=== PATIENT | female | born 1950 | race Caucasian/White ===

== ENCOUNTER 2017-11-16 13:49 | Emergency (ER) | payer MEDICARE, SELFPAY ==
[2017-11-16 13:50] VITALS: BP 196/76; PULSE 67; RESP 16; TEMP 36.2; O2SAT 94; BMI 38.7
[2017-11-16 14:44] LABS: Absolute Lymphocyte Count 0.96 X10^3/ul (0.83-4.51); Absolute Neutrophil Count 3.7 X10^3/uL (2.0-7.7); Basophil# 0.02 X10^3/uL; Basophil% 0.4 % (0-1); Eosinophil# 0.15 X10^3/uL; Eosinophils% 2.9 % (0-5); Hematocrit 40.9 % (37-47); Hemoglobin 13.4 g/dl (12.0-15.0); Lymphocyte # 0.96 X10^3/ul (4.0); Lymphocyte % 18.3 % (19-41); Mean Corp Hgb Conc 32.8 g/gl (32-36); Mean Corpuscular Hgb 27.3 pg (27.0-32.0); Mean Corpuscular Volume 83.5 fL (81-99); Mean Platelet Vol. 12.5 fl (6.2-12.0); Monocyte# 0.43 X10^3/uL; Monocyte% 8.2 % (0-10); Neutrophil # 3.67 X10^3/uL (2.7-7.7); Neutrophil % 69.8 % (47-70); Platelet Count 102 K/mm3 (150-450); RBC Distribution Width CV 14.7 % (11.6-14.6); RBC Distribution Width SD 43.8 fl (35.1-43.9); White Blood Count 5.3 K/mm3 (4.4-11.0)
[2017-11-16 14:45] LABS: POSITIVE COUNT NO; POSITIVE DIFFERENTIAL NO; POSITIVE MORPHOLOGY NO
[2017-11-16 14:54] LABS: Mucous, Urine 0 SEEN /hpf (<or=2+); Red Blood Cells-Urine 0 SEEN /hpf (0-5)
[2017-11-16 14:55] LABS: Anion Gap 6 (5-15); BUN 12 mg/dL (7-18); BUN/Creat Ratio 17.7 RATIO (10-20); Calcium,Total 9.8 mg/dL (8.5-10.1); Chloride 103 mmol/L (98-107); Creatinine, Serum 0.68 mg/dL (0.55-1.02); EST Glomerular Filtration Rate 91 mL/min (>60); Est Glom Filt Rate - Afr Amer 111 mL/min (>60); Estimated Creatinine Clearance 38.14 ml/min; Glucose 177 mg/dL (70-110); Potassium 4.6 mmol/L (3.5-5.1); Sodium Level 139 mmol/L (136-145)
[2017-11-16 15:06] LABS: Color, Urine Yellow (Yellow); Glucose, Dipstick 100 mg/dl (Normal); Ketone-Dipstick Negative (Negative); Leukocyte Esterase-Dipstick 100 /ul (Negative); Nitrite-Dipstick Negative (Negative); Occult Blood-Urine 10 /ul (Negative); Protein-Dipstick 100 mg/dl (Negative); Specific Gravity, Urine 1.015 (1.002-1.030); Urine Bilirubin Dipstick Negative (Negative); Urine Clarity Clear (Clear); Urine Urobilinogen Normal (Normal)
[2017-11-16 15:13] LABS: Squamous Epithelial Cells - UA 0-5 SEEN /hpf (5-10); White Blood Cells 0-5 SEEN /hpf (0-5)
[2017-11-16 15:14] LABS: Bacteria RARE /hpf (None Seen)
--- NOTE | 2017-11-16 15:17 | ED.DCSUM_ITS ---
- ER Visit Summary Date of Service: 11/16/17 Chief Complaint: Dysuria and frequency History of Present Illness: The patient is a [address] Smith. She reports that she has dysuria and frequency that began 2 weeks ago. This is similar when she has had UTIs in the past. She reports that she has a sharp suprapubic pain is 3 out of 10 severity. She has been nauseated but has not vomited. No fever or chills. No back pain. Physical Examination: Vitals: Stable. Afebrile. General: Well-nourished and well-developed. Head: Normocephalic atraumatic. Neck: Supple, no lymphadenopathy. No JVD. Nontender. Cardiovascular: Regular rate and rhythm. No murmurs. Respiratory: No respiratory distress. Clear to auscultation bilaterally. Abdominal: Soft, mild suprapubic tenderness to palpation, nondistended, normal bowel sounds. No guarding, rebound, or peritoneal signs. Back: Nontender. Extremities: Nontender, no edema. Skin: Normal color, no rash. Neurologic: Alert and oriented ?3. Cranial nerves II through XII are intact. Normal strength and sensation. Psych: Normal affect. Test Results: CBC is more for platelets of 102 lymphocytes of 18. Chem-7 is more for glucose 177. UA is negative. Emergency Department Course and Treatment: Patient refused pain or nausea medications. She is resting comfortably. Treatment Plan: I discussed mechanical and chemical causes of urethritis with the patient. She will be discharged instructed follow-up her primary care physician 1 week if not improving. Disposition: To home in improved and stable condition. Impression:. 1. Urethritis. This note was generated with [employer] dictation software. It may contain incorrect words, spelling, and punctuation that were not noted in review of the chart prior to signing ED Disposition - Plan for ED Patient: Disposition: Home or Assisted Living Chief Complaint: Complaint Instructions: Urethritis in Women Referrals: Josiah Smith MD [Primary Care Provider] - 1 Week if not improving
[2017-11-16 15:35] VITALS: BP 129/77; PULSE 68; RESP 15; O2SAT 98
== END 2017-11-16 15:36 | disposition home or self-care (01) ==
PROVIDERS: Emergency Provider Emergency Medicine; Family Provider Family Medicine; PCP Family Medicine
DX: N34.2 Other urethritis (principal); E11.9 Type 2 diabetes mellitus without complications; I10 Essential (primary) hypertension; Z87.891 Personal history of nicotine dependence; Z87.440 Personal history of urinary (tract) infections
CPT/HCPCS: 80048; 81001; 85025; 99283

== ENCOUNTER → 2017-11-30 10:36 | Outpatient (CLI) | payer MEDICARE, SELFPAY ==
--- NOTE | 2017-11-30 | LES_PTH ---
PATIENT: MICHAEL HENLEY LOC: [facility] U#:[id number] AGE/SX: 75/F ROOM: RE11/30/[address]: Dr. Franklin Jaquez MD : 1950 BED: DIS: SPEC #: [id number] RECD: 11/30/17 14:36 STATUS: RICK FATOU #: [id number] HORACOI: 11/30/17 00:[address]: Franklin Jaquez DEPT: SURGICAL PATHOLOGY RECD BY: Darci Becerril ENTERED: 11/30/17 14:36 SP TYPE: Lesion OTHR DR: Dr. Josiah Smith MD Tissues: Skin of forearm, NOS Procedures: Surgery Specimen Level IV HEADER OPERATION: Excision skin lesion left forearm PRE-OP DIAGNOSIS: Left forearm lesion TISSUE SUBMITTED: Tissue left forearm MICROSCOPIC DIAGNOSIS Skin lesion of left forearm, biopsy: Verrucous keratosis. Solar elastosis. AM:cori 2/13/18 COMMENT The lesion appears to have been completely excised in the planes examined. MICROSCOPIC DESCRIPTION Slides are reviewed. GROSS DESCRIPTION Received in fixative is one container labeled with the patient's name and designated left forearm. The specimen consists of an ellipse of light gallegos excised skin measuring 1.6 x 0.5 x 0.3 cm. The cutaneous surface contains an exophytic gallegos lesion measuring 0.6 cm in greatest dimension. The specimen is inked, serially sectioned and totally submitted in one cassette. / AM:cori 11/30/17 TC:5 CPT: 80292
== END ==
PROVIDERS: Family Provider Family Medicine; PCP Family Medicine; Visit Provider Surgery
DX: L57.0 Actinic keratosis (principal); L57.8 Other skin changes due to chronic exposure to nonionizing radiation; W89.9XXA Exposure to unspecified man-made visible and ultraviolet light, initial encounter; Y93.9 Activity, unspecified; Y92.9 Unspecified place or not applicable; Y99.9 Unspecified external cause status
CPT/HCPCS: 88305

== ENCOUNTER 2018-05-01 21:47 | Emergency (ER) | payer MEDICARE, SELFPAY ==
[2018-05-01 21:49] VITALS: BP 215/86; PULSE 106; RESP 23; TEMP 37.2; O2SAT 94; BMI 36.2
--- NOTE | 2018-05-01 22:12 | ED.VISSUMM ---
- ER Visit Summary Date of Service: 05/01/18 Chief Complaint: Acute on chronic hypertension History of Present Illness: The patient is a 68 F history of hypertension and cxp-gxofmzg-emfsrodoe diabetes. Patient states that they had trouble controlling her blood pressure. She typically takes clonidine 6 times a day sometimes more. States the last 2 days her blood pressures been elevated. Her systolic numbers been above 200 and her diastolics been above 100. However she denies any severe headaches, chest pain or shortness of breath. She denies any nausea, vomiting or diarrhea. No dysuria. No fever. Physical Examination: Vital signs show initial blood pressure of 215/86. Otherwise stable and afebrile. She does not look septic or toxic. She is no acute distress. HEENT exam unremarkable. Pupils intact. No facial droop. Normal speech. Patient bilaterally. Heart regular rhythm no murmur. Rate 105. Abdomen soft and nontender. Normal bowel sounds. Lungs clear to auscultation bilaterally. Patient is moving all 4 extremities. They are neurovascularly intact. Calves without edema or cords. Neurologically she is awake alert with no focal motor or sensory deficits. Normal propeller driven airplane mechanic strength bilaterally. Normal dorsi plantar flexion. Test Results: BMP is unremarkable. She is completely normal kidney function with a creatinine of 0.6. Emergency Department Course and Treatment: Patient treated with labetalol 10 mg IV Treatment Plan: Repeat exam patient is doing well at 2250. Currently her blood pressure is 190/65. She is without symptoms. I discussed with the patient and her he states that she takes her blood pressure repeatedly multiple times a day. When it is high she gets more anxious and he goes higher. I explained to patient she will need to be placed on blood pressure medication and controls her pressure better and will be to be slowly weaned off of her clonidine. That she could not come off of that immediately. Patient will be started on metoprolol. She is instructed to follow-up with her animal damage control agent Dr. Baron and for further evaluation and working on blood pressure control. Disposition: Discharge Impression: Acute on chronic hypertension poorly controlled This note was generated with [employer] software. It may contain incorrect words, spelling, and punctuation that were not noted in review of the chart prior to signing ED Disposition - Plan for ED Patient: Chief Complaint: Hypertension Referrals: Josiah Smith MD [Primary Care Provider] -
--- NOTE | 2018-05-01 22:15 | ED.DCSUM_ITS ---
- ER Visit Summary Date of Service: 05/01/18 Chief Complaint: Acute on chronic hypertension History of Present Illness: The patient is a 68 F history of hypertension and lzm-dopuvuh-oqeuocneq diabetes. Patient states that they had trouble controlling her blood pressure. She typically takes clonidine 6 times a day sometimes more. States the last 2 days her blood pressures been elevated. Her systolic numbers been above 200 and her diastolics been above 100. However she denies any severe headaches, chest pain or shortness of breath. She denies any nausea, vomiting or diarrhea. No dysuria. No fever. Physical Examination: Vital signs show initial blood pressure of 215/86. Otherwise stable and afebrile. She does not look septic or toxic. She is no acute distress. HEENT exam unremarkable. Pupils intact. No facial droop. Normal speech. Patient bilaterally. Heart regular rhythm no murmur. Rate 105. Abdomen soft and nontender. Normal bowel sounds. Lungs clear to auscultation bilaterally. Patient is moving all 4 extremities. They are neurovascularly intact. Calves without edema or cords. Neurologically she is awake alert with no focal motor or sensory deficits. Normal steel division supervisor strength bilaterally. Normal dorsi plantar flexion. Test Results: BMP is unremarkable. She is completely normal kidney function with a creatinine of 0.6. Emergency Department Course and Treatment: Patient treated with labetalol 10 mg IV Treatment Plan: Repeat exam patient is doing well at 2250. Currently her blood pressure is 190/65. She is without symptoms. I discussed with the patient and her he states that she takes her blood pressure repeatedly multiple times a day. When it is high she gets more anxious and he goes higher. I explained to patient she will need to be placed on blood pressure medication and controls her pressure better and will be to be slowly weaned off of her clonidine. That she could not come off of that immediately. Patient will be started on metoprolol. She is instructed to follow-up with her digital forensics examiner Dr. Baron and for further evaluation and working on blood pressure control. Disposition: Discharge Impression: Acute on chronic hypertension poorly controlled This note was generated with [employer] software. It may contain incorrect words, spelling, and punctuation that were not noted in review of the chart prior to signing ED Disposition - Plan for ED Patient: Chief Complaint: Hypertension Referrals: Josiah Smith MD [Primary Care Provider] -
[2018-05-01 22:30] VITALS: BP 186/68; PULSE 88; RESP 20; O2SAT 94
[2018-05-01 22:32] LABS: Anion Gap 9 (5-15); BUN 11 mg/dL (7-18); BUN/Creat Ratio 16.4 RATIO (10-20); Calcium,Total 9.8 mg/dL (8.5-10.1); Chloride 105 mmol/L (98-107); Creatinine, Serum 0.67 mg/dL (0.55-1.02); EST Glomerular Filtration Rate 92 mL/min (>60); Est Glom Filt Rate - Afr Amer 112 mL/min (>60); Glucose 159 mg/dL (74-106); Potassium 4.3 mmol/L (3.5-5.1); Sodium Level 142 mmol/L (136-145)
[2018-05-01 22:47] VITALS: BP 190/65; PULSE 97; RESP 18; O2SAT 92
--- NOTE | 2018-05-01 22:54 | ED.DEP ---
ED Disposition - Plan for ED Patient: Disposition: Home or Assisted Living Chief Complaint: Hypertension Instructions: ED Hypertension Conf Out Of Control Prescriptions: Metoprolol Succinate 50 mg PO DAILY #30 tab.er.24h Referrals: Josiah Smith MD [Primary Care Provider] - As Needed Tod Melgar [NON-STAFF] - As soon as possible Additional Instructions: Call and follow-up with Dr. Tod Healy for further evaluation of your blood pressure and to determine what blood pressure medication he should be on. You cannot just stop the clonidine. You will need to be weaned off of that medication weeks or months. Start the metoprolol which is a beta-paris medication 1 pill once daily and they will have to assess to see how that is controlling her blood pressure. They may need to try different dosages or even different medications.
[2018-05-01 23:06] VITALS: BP 188/55; PULSE 73; RESP 17; O2SAT 95
== END 2018-05-01 23:26 | disposition home or self-care (01) ==
PROVIDERS: Emergency Provider Emergency Medicine; Family Provider Family Medicine; PCP Family Medicine
DX: I10 Essential (primary) hypertension (principal); E11.9 Type 2 diabetes mellitus without complications; J44.9 Chronic obstructive pulmonary disease, unspecified
CPT/HCPCS: 36415; 80048; 96374; 99285; A4216

== ENCOUNTER 2018-05-02 04:59 | Emergency (ER) | payer MEDICARE, SELFPAY ==
[2018-05-02 05:00] VITALS: BP 239/70; PULSE 84; RESP 19; TEMP 37.3; O2SAT 96; BMI 35.6
--- NOTE | 2018-05-02 05:20 | EKG12_ITS ---
Test Reason : HIGH BP Blood Pressure : / mmHG Vent. Rate : 082 BPM Atrial Rate : 082 BPM P-R Int : 142 ms QRS Dur : 142 ms QT Int : 414 ms P-R-T Axes : 049 -75 059 degrees QTc Int : 483 ms Normal sinus rhythm Right bundle branch block Left anterior fascicular block Bifascicular block Left ventricular hypertrophy with repolarization abnormality Abnormal ECG Confirmed by TEJ ROWELL, PHONG ([id number]), editor index SAHARA ALTMAN ([id number]) on 05/04/2018 1:38:16 PM Referred By: POLLY Confirmed By:PHONG BURNHAM MD
--- NOTE | 2018-05-02 05:20 | CT_ITS ---
STUDY: CT BRAIN WITHOUT CONTRAST REASON FOR EXAM: Female, 68 years old. Headache. RADIATION DOSAGE (If Supplied By Facility): CTDIvol = ( 44.99 ) mGy, DLP = ( 762.36 ) mGycm TECHNIQUE: Transaxial CT imaging of the brain was performed without administration of intravenous contrast material. Individualized dose optimization techniques were used for this CT. COMPARISON: September 10, 2013. FINDINGS: Normal soft tissue structures. Normal calvarium. Normal size ventricles and extra-axial spaces for the patient's age. Normal white matter tracts of the cerebral hemispheres. Normal basal ganglia and thalami. Normal brainstem. Normal cerebellum. There is no intracranial hemorrhage. There are no findings of an acute ischemic infarction. Normal visualized paranasal sinuses. CT/Brain/Head without Contrast IMPRESSION: Normal unenhanced CT scan of the brain. Electronically Signed: Walker Rivera MD at 6:35 EDT , Service support ,
[2018-05-02] MEDS: Ondansetron 4 MG/2 ML Vial IV (05:45)
[2018-05-02] MEDS: diazePAM 5 MG Tablet 2.5 MG PO (05:47)
--- NOTE | 2018-05-02 05:47 | NURSING ---
PER DR. MATIAS, PT IS TO TAKE 2PILLS OF HER CLONIDINE, TOTAL AMOUNT 0.2MG. PT TOOK THEM.
[2018-05-02 06:00] LABS: Hematocrit 39.4 % (37-47); Hemoglobin 12.8 g/dl (12.0-15.0); Mean Corp Hgb Conc 32.5 g/gl (32-36); Mean Corpuscular Hgb 27.2 pg (27.0-32.0); Mean Corpuscular Volume 83.7 fL (81-99); RBC Distribution Width CV 19.2 % (11.6-14.6); Red Blood Count 4.71 M/mm3 (4.2-5.4); White Blood Count 4.6 K/mm3 (4.4-11.0)
[2018-05-02 06:01] LABS: Absolute Lymphocyte Count 0.65 X10^3/ul (0.83-4.51); Absolute Neutrophil Count 3.4 X10^3/uL (2.0-7.7); Basophil# 0.02 X10^3/uL; Basophil% 0.4 % (0-1); Eosinophil# 0.14 X10^3/uL; Eosinophils% 3.1 % (0-5); Lymphocyte # 0.65 X10^3/ul (4.0); Lymphocyte % 14.3 % (19-41); Mean Platelet Vol. 11.4 fl (6.2-12.0); Monocyte# 0.31 X10^3/uL; Monocyte% 6.8 % (0-10); Neutrophil # 3.44 X10^3/uL (2.7-7.7); Neutrophil % 75.4 % (47-70); Platelet Count 74 K/mm3 (150-450)
[2018-05-02 06:02] LABS: POSITIVE COUNT NO; POSITIVE DIFFERENTIAL NO; POSITIVE MORPHOLOGY NO
[2018-05-02 06:31] VITALS: BP 161/52; PULSE 68; RESP 18; O2SAT 94
--- NOTE | 2018-05-02 06:48 | ED.VISSUMM ---
- ER Visit Summary Date of Service: 05/02/18 Chief Complaint: High blood pressure, headache, and nausea History of Present Illness: The patient is a [address] Smith. She was seen yesterday for high blood pressure. She reports that since being discharged she is developed a headache. She reports it was 7 out of 10 at worst and is 2 out of 10 currently. Is been relieved by Tylenol. She also reports that she is nauseated. She denies any abdominal pain or vomiting. Patient believes that the nausea is due to a dose of labetalol she was given in the emergency department. Patient has a bottle of clonidine with her that the prescription is 0.3 mg p.o. twice daily. She reports to me that she usually takes 2 in the morning, 1 at 1 PM, 2 at 5 PM, and 1 at 8 PM as needed. She reports that she did not take her evening dose because she was nauseated then. Review of systems: General: No fever, chills, cold sweats. Cardiovascular: No chest pain, palpitations. Respiratory: No cough, shortness of breath, dyspnea on exertion. Gastrointestinal: No abdominal pain, vomiting, diarrhea, melena, or hematochezia. Genitourinary: No dysuria, frequency, hematuria. Skin: No rash. Neuro: Nonumbness, weakness. Physical Examination: Vitals: Initial blood pressure is 239/70. Repeat blood pressure is 161/52 after her dose of clonidine and 2.5 mg of Valium. Temp is 99.1, 84, 19, 96% on room air which is not hypoxic General: Well-nourished and well-developed. Head: Normocephalic atraumatic. Neck: Supple, no lymphadenopathy. No JVD. Nontender. Cardiovascular: Regular rate and rhythm. No murmurs. Respiratory: No respiratory distress. Clear to auscultation bilaterally. Abdominal: Soft, nontender, nondistended, normal bowel sounds. No guarding, rebound, or peritoneal signs. Back: Nontender. Extremities: Nontender, no edema. Skin: Normal color, no rash. Neurologic: Alert and oriented ?3. Cranial nerves II through XII are intact. Normal strength and sensation. Psych: Normal affect. Test Results: Patient had a Chem-7 yesterday that was not repeated. The only abnormality was a glucose of 159. EKG is sinus at 82 with a right bundle branch block and LVH with repolarization changes no ischemic changes. CT brain shows no acute disease. CBC is more for platelets 74, segmented neutrophils 75, lymphocytes 14. Emergency Department Course and Treatment: Patient is quite insistent that she take her home clonidine. She refuses to take 0.3 mg. She took 0.2 mg. She does admit to being anxious. She was given 2.5 mg of Valium p.o. Her blood pressure decreased nicely with this regimen. Treatment Plan: Patient will be discharged and encouraged to take her clonidine as prescribed. I have also suggested that when she measures her blood pressure she becomes anxious and her blood pressure worsens. She does agree that this is accurate. She will be discharged instructions to follow-up with Dr. Smith the next 3-5 days for another exam. Return to the emergency department for any worsening symptoms. Disposition: To home in improved and stable condition. Impression: 1. Hypertension with medication noncompliance. 2. Anxiety. This note was generated with [employer] dictation software. It may contain incorrect words, spelling, and punctuation that were not noted in review of the chart prior to signing ED Disposition - Plan for ED Patient: Disposition: Home or Assisted Living Chief Complaint: Hypertension Instructions: ED Hypertension Conf Out Of Control Prescriptions: Ondansetron [Zofran Odt] 4 mg PO Q8H PRN PRN #10 tablet PRN Reason: Nausea Referrals: Josiah Smith MD [Primary Care Provider] - 1-2 Days if not improving
[2018-05-02] MEDS: Ondansetron ODT 4 MG Tablet PO (07:02)
[2018-05-02 07:13] VITALS: BP 159/72; PULSE 70; PULSE 72; RESP 18; O2SAT 93
== END 2018-05-02 07:12 | disposition home or self-care (01) ==
PROVIDERS: Emergency Provider Emergency Medicine; Family Provider Family Medicine; PCP Family Medicine
DX: I10 Essential (primary) hypertension (principal); Z91.14 Patient's other noncompliance with medication regimen; F41.9 Anxiety disorder, unspecified; I45.10 Unspecified right bundle-branch block; E11.9 Type 2 diabetes mellitus without complications; J44.9 Chronic obstructive pulmonary disease, unspecified
CPT/HCPCS: 70450; 85025; 93005; 96374; 99285; A4216

== ENCOUNTER 2018-08-15 15:14 | Emergency (ER) | payer MEDICARE, SELFPAY ==
[2018-08-15 15:15] VITALS: BP 242/86; PULSE 100; RESP 22; TEMP 37.2; O2SAT 94; BMI 35.3
--- NOTE | 2018-08-15 15:43 | EKG12_ITS ---
Test Reason : HYPERTENSION Blood Pressure : / mmHG Vent. Rate : 099 BPM Atrial Rate : 099 BPM P-R Int : 152 ms QRS Dur : 130 ms QT Int : 378 ms P-R-T Axes : 042 -74 061 degrees QTc Int : 485 ms Normal sinus rhythm Right bundle branch block Left anterior fascicular block Bifascicular block Voltage criteria for left ventricular hypertrophy Cannot rule out Septal infarct , age undetermined Abnormal ECG Confirmed by FELICIANO ROWELL, DANITA ([id number]), assignment editor SAHARA ALTMAN ([id number]) on 08/17/2018 10:28:08 AM Referred By: YUE Confirmed By:DANITA WIGGINS MD
[2018-08-15 16:03] LABS: Absolute Lymphocyte Count 0.66 X10^3/ul (0.83-4.51); Absolute Neutrophil Count 3.2 X10^3/uL (2.0-7.7); Basophil# 0.04 X10^3/uL; Basophil% 0.9 % (0-1); Eosinophil# 0.16 X10^3/uL; Eosinophils% 3.7 % (0-5); Hematocrit 37.4 % (37-47); Hemoglobin 11.4 g/dl (12.0-15.0); Lymphocyte # 0.66 X10^3/ul (4.0); Lymphocyte % 15.3 % (19-41); Mean Corp Hgb Conc 30.5 g/gl (32-36); Mean Corpuscular Hgb 25.4 pg (27.0-32.0); Mean Corpuscular Volume 83.5 fL (81-99); Mean Platelet Vol. 11.8 fl (6.2-12.0); Monocyte# 0.22 X10^3/uL; Monocyte% 5.1 % (0-10); Neutrophil # 3.23 X10^3/uL (2.7-7.7); Platelet Count 98 K/mm3 (150-450); RBC Distribution Width CV 14.8 % (11.6-14.6); RBC Distribution Width SD 45.1 fl (35.1-43.9); Red Blood Count 4.48 M/mm3 (4.2-5.4); White Blood Count 4.3 K/mm3 (4.4-11.0)
[2018-08-15] MEDS: Clonidine HCl 0.1 MG, Clonidine HCl 0.2 MG 0.3 MG PO (16:03)
[2018-08-15] MEDS: Ondansetron 4 MG/2 ML Vial IV (16:03)
[2018-08-15] MEDS: 0.9% Normal Saline 1,000 ML 1000 ML IV (16:03)
[2018-08-15 16:06] LABS: POSITIVE COUNT NO; POSITIVE DIFFERENTIAL NO; POSITIVE MORPHOLOGY NO
[2018-08-15 16:10] VITALS: BP 229/61; PULSE 85; RESP 18; O2SAT 91
[2018-08-15 16:14] LABS: Anion Gap 7 (5-15); BUN 13 mg/dL (7-18); BUN/Creat Ratio 17.4 RATIO (10-20); Calcium,Total 9.4 mg/dL (8.5-10.1); Chloride 106 mmol/L (98-107); Creatinine, Serum 0.75 mg/dL (0.55-1.02); EST Glomerular Filtration Rate 81 mL/min (>60); Est Glom Filt Rate - Afr Amer 98 mL/min (>60); Glucose 212 mg/dL (74-106); Potassium 4.2 mmol/L (3.5-5.1); Sodium Level 140 mmol/L (136-145)
[2018-08-15 16:35] VITALS: BP 194/59; PULSE 72
--- NOTE | 2018-08-15 16:52 | ED.DCSUM_ITS ---
- ER Visit Summary Date of Service: 08/15/18 Chief Complaint: Hypertension History of Present Illness: The patient is a 68 F presenting for evaluation secondary to high blood pressure. Patient has a history of poorly controlled hypertension, reports that she has multiple allergies to antihypertensive medic ations and only is able to take clonidine. She takes point 2 in the morning, 0.1 at lunch, and point 2 at night. Patient states that since yesterday she has been having high blood pressure readings. She reports that associated with mild dizziness and nausea but she denies any visual changes numbness weakness chest pain or shortness of breath associated with this. No recent changes in her medication regimen. She denies any missed doses. Physical Examination: Vital signs notable for blood pressure 242/86. Well- nourished female no acute distress. PRL. Moist mucous membranes no JVD. Heart was regular rate and rhythm no murmurs rubs or gallops. Lungs sounds clear. Abdomen soft nontender. No significant peripheral edema noted. Skin normal color no rash. Test Results: EKG shows a sinus rate of 99 with a right bundle branch block, bifascicular block, and some minimal ST depression in aVL that is chronic. CBC demonstrates chronic thrombocytopenia platelet count 98, chemistry normal and troponin negative. Emergency Department Course and Treatment: Patient presented for evaluation secondary to hypertension. She was given 0.3 of Catapres as she has multiple medication allergies. Blood pressure on repeat evaluation was 190/55. She has no evidence of endorgan damage. I do not believe that she requires admission at this point. She is recommended to discuss her medication regimen with her primary care physician, and potentially change her Catapres to a patch or add labetalol. She will follow-up this week. Disposition: Discharge Impression: 1. Poorly controlled hypertension 2. Chronic thrombocytopenia This note was generated with [employer] dictation software. It may contain incorrect words, spelling, and punctuation that were not noted in review of the chart prior to signing ED Disposition - Plan for ED Patient: Disposition: Home or Assisted Living Chief Complaint: Hypertension Diagnosis: Hypertension Instructions: ED HTN Established Referrals: Josiah Smith MD [Primary Care Provider] - As soon as possible Additional Instructions: Ask Dr. Gonzalez about a clonidine patch or Labetalol.
[2018-08-15 17:07] VITALS: BP 164/53; PULSE 66; RESP 20; O2SAT 92
== END 2018-08-15 17:10 | disposition home or self-care (01) ==
PROVIDERS: Emergency Provider Emergency Medicine; Family Provider Family Medicine; PCP Family Medicine
DX: I10 Essential (primary) hypertension (principal); D69.6 Thrombocytopenia, unspecified; I45.10 Unspecified right bundle-branch block; I45.2 Bifascicular block; K21.9 Gastro-esophageal reflux disease without esophagitis; F41.9 Anxiety disorder, unspecified; Z88.9 Allergy status to unspecified drugs, medicaments and biological substances; Z79.84 Long term (current) use of oral hypoglycemic drugs; Z79.899 Other long term (current) drug therapy
CPT/HCPCS: 80048; 84484; 85025; 93005; 96361; 96374; 99285; A4216; J2405

== ENCOUNTER → 2018-12-08 14:38 | Outpatient (CLI) | payer MEDICARE, SELFPAY ==
--- NOTE | 2018-12-08 | LES_PTH ---
PATIENT: MICHAEL HENLEY LOC: [facility] U#:[id number] AGE/SX: 75/F ROOM: RE12/08/[address]: Dr. Franklin Jaquez MD : 1950 BED: DIS: SPEC #: [id number] RECD: 12/08/18 14:29 STATUS: RICK CHRISTINERenetta #: [id number] HORACIO: 12/08/18 00:[address]: Franklin Jaquez DEPT: SURGICAL PATHOLOGY RECD BY: Darci Becerril ENTERED: 12/09/18 08:14 SP TYPE: Lesion OTHR DR: Dr. Josiah Smith MD Tissues: Skin of forearm, NOS Procedures: Surgery Specimen Level IV HEADER OPERATION: Excision left forearm lesion PRE-OP DIAGNOSIS: Left arm lesion TISSUE SUBMITTED: Left arm tissue MICROSCOPIC DIAGNOSIS Skin lesion of left arm, biopsy: Actinic change and solar elastosis. No evidence of malignancy. AM:cori 2/22/19 MICROSCOPIC DESCRIPTION Slides are reviewed. GROSS DESCRIPTION Received in fixative is one container labeled with the patient's name and designated left forearm. The specimen consists of a piece of gallegos-white skin ellipse measuring 2.5 x 1 cm and 0.2 cm in thickness. There is a raised gallegos lesion on the surface measuring 0.5 x 0.5 cm. The specimen is inked, serially sectioned and submitted entirely in two cassettes. Cassette 1 contains the tips of skin ellipse. / SJ:rg 12/09/18 TC:5 CPT: 97851
[2018-12-08 14:29] VITALS: BMI 38.7
== END ==
PROVIDERS: Family Provider Family Medicine; PCP Family Medicine; Referring Provider Surgery; Visit Provider Surgery
DX: L57.8 Other skin changes due to chronic exposure to nonionizing radiation (principal); W89.9XXA Exposure to unspecified man-made visible and ultraviolet light, initial encounter; Y92.9 Unspecified place or not applicable; Y99.9 Unspecified external cause status
CPT/HCPCS: 88305

== ENCOUNTER 2019-01-06 09:05 | Inpatient (IN) | payer MEDICARE, SELFPAY ==
[2018-12-29 13:38] VITALS: BMI 38.7
[2019-01-06] VITALS (13 sets, daily range): BP systolic 127–240; BP diastolic 56–102; PULSE 80–124; RESP 15–20; TEMP 36.2–37.5; O2SAT 94–99; BMI 37.0; BMI 34.5; BMI 34.6
--- NOTE | 2019-01-06 09:20 | EKG12_ITS ---
Test Reason : Blood Pressure : / mmHG Vent. Rate : 091 BPM Atrial Rate : 091 BPM P-R Int : 150 ms QRS Dur : 136 ms QT Int : 404 ms P-R-T Axes : 012 -79 048 degrees QTc Int : 496 ms Normal sinus rhythm Right bundle branch block Left anterior fascicular block Bifascicular block Moderate voltage criteria for LVH, may be normal variant Cannot rule out Septal infarct , age undetermined Abnormal ECG Confirmed by TEJ ROWELL, PHONG ([id number]), telegraph editor EDDIE JEAN ([id number]) on 01/10/2019 11:39:46 AM Referred By: TORI Confirmed By:PHONG BURNHAM MD
--- NOTE | 2019-01-06 09:21 | ED.VIS.GEN ---
History of Present Illness Chief Complaint: Back Informant: Patient Onset: Today Context: Sudden Onset Timing: Continuous Quality: Moderate to severe bilateral posterior back pain Location: Thoracic region Current Severity: Moderate Maximum Severity: Severe Worsened by: Movement Relieved by: Nothing Associated Symptoms: Nausea Narrative: Patient is an elderly woman who presents because of abrupt onset of back pain that awoke her from sleep at 0500. She states is bilateral. She reports history of thoracic aneurysm. She is scheduled for EGD and colonoscopy at the [facility] because of blood noted in her stool. She denies dysuria, frequency, urgency or hematuria. She denies history of renal ureterolithiasis. She does report mild shortness of breath. She reports she cannot find a position of comfort. She is not able to qualitate the pain. She denies chest pain. She denies vomiting or diarrhea. She denies black or maroon stool. She denies history of trauma. Prior similar symptoms: No Recent Illness/Hospitalization: No - Past Medical History (1) History of thoracoabdominal aortic aneurysm (TAAA) Status: Chronic (2) Anemia Status: Acute (3) Asthma Status: Chronic (4) COPD (chronic obstructive pulmonary disease) Status: Chronic (5) Diabetes mellitus Status: Chronic (6) GERD (gastroesophageal reflux disease) Status: Chronic (7) Hypertension Status: Chronic Past Medical History - Allergies and Home Meds Allergies/Adverse Reactions: Allergies suture Allergy (Mild, Verified 01/06/19 09:08) rash/ wound dehisence chromic suture amoxicillin Allergy (Verified 01/06/19 09:08) Unknown azithromycin Allergy (Verified 01/06/19 09:08) Shortness of breath celecoxib [From Celebrex] Allergy (Verified 01/06/19 09:08) Other ciprofloxacin [From Cipro] Allergy (Verified 01/06/19 09:08) Shortness of breath ciprofloxacin HCl [From Cipro] Allergy (Verified 01/06/19 09:08) Shortness of breath cortisone Allergy (Verified 01/06/19 09:08) Swelling diazepam [From Valium] Allergy (Verified 01/06/19 09:08) Shortness of breath doxycycline Allergy (Verified 01/06/19 09:08) Shortness of breath erythromycin base Allergy (Verified 01/06/19 09:08) Unknown fexofenadine [From Ashlee] Allergy (Verified 01/06/19 09:08) Unknown ibuprofen Allergy (Verified 01/06/19 09:08) Shortness of breath Iodinated Contrast- Oral and IV Dye [DYEE] Allergy (Verified 01/06/19 09:08) Shortness of breath iodine Allergy (Verified 01/06/19 09:08) Shortness of breath levofloxacin [From Levaquin] Allergy (Verified 01/06/19 09:08) Shortness of breath lorazepam [From Ativan] Allergy (Verified 01/06/19 09:08) Shortness of breath nitrofurantoin [From Macrobid] Allergy (Verified 01/06/19 09:08) Shortness of breath nitrofurantoin macrocrystalline [From Macrobid] Allergy (Verified 01/06/19 09:08) Shortness of breath Penicillins Allergy (Verified 01/06/19 09:08) Shortness of breath rofecoxib [From Vioxx] Allergy (Verified 01/06/19 09:08) Unknown Sulfa (Sulfonamide Antibiotics) Allergy (Verified 01/06/19 09:08) Shortness of breath sulfamethoxazole [From Bactrim] Allergy (Verified 01/06/19 09:08) Shortness of breath trimethoprim [From Bactrim] Allergy (Verified 01/06/19 09:08) Shortness of breath amlodipine [From Norvasc] Adverse Reaction (Verified 01/06/19 09:08) Upset Stomach cat gut sutures Allergy (Uncoded 01/06/19 09:08) Unknown MISC BP MED Allergy (Uncoded 01/06/19 09:08) Shortness of breath Primary Care Physician: Josiah Smith MD [Primary Care Provider] - Prior records reviewed: Yes Surgical History: cholecystectomy, - Lives: Spouse/ Significant Other Smoking Status: Never smoker Alcohol: None - Family History Maternal Family History: Family History (Last Reviewed 12/29/18 @ 13:38 by Debora Ruff) Mother Heart disease Brother Heart disease Family History: Reports: No pertinent history Paternal Family History: Family History (Last Reviewed 12/29/18 @ 13:38 by Debora Ruff) Mother Heart disease Brother Heart disease Family History: Reports: No pertinent history Review of Systems General: Denies: Chills, Fever, Malaise, Sweats Eyes: Denies: Visual changes - bilaterally, Blurred Vision - bilaterally, Diplopia ENT: Denies: Bilateral ear pain, Rhinorrhea, Sore throat Cardiovascular: Denies: Chest pain, Palpitations Respiratory: Reports: Dyspnea. Denies: Cough, Sputum, Dyspnea on exertion, Orthopnea, Paroxysmal nocturnal dyspnea Gastrointestinal: Reports: Abdominal pain - Epigastric discomfort, Nausea. Denies: Vomiting, Diarrhea, Melena, Hematochezia Genitourinary: Denies: Dysuria, Hematuria, Frequency Musculoskeletal: Reports: Back pain. Denies: Myalgias, Arthralgias Skin: Denies: Rash, Wounds Neurological: Denies: Headache, Weakness, Numbness Endocrine: Denies: Polyuria, Polydipsia Hematologic: Denies: Easy bruising Allergy: Denies: Uticaria Physical Exam Vital Signs/Narrative: Vital Signs Temp Pulse Resp BP Pulse Ox 01/06/19 09:06 98.4 F 84 20 H 127/80 H 95 General: Well nourished, Well developed, Obese, Acute Distress Head: Normocephalic, Atraumatic Eyes: Perrl, EOMI ENT: Moist mucous membranes, No rhinorrhea, TM's clear Neck: Supple, Nontender, No lymphadenopathy, No JVD Cardiovascular: Regular rate, Regular rhythm, No murmurs, Normal S1, Normal S2 Respiratory: No distress, CTA bilaterally, Chest nontender Abdomen: Soft, Nondistended, Normal bowel sounds, No masses, Tender, Guarding, Hypoactive bowel sounds. Negative for: Rebound tenderness, Hyperactive bowel sounds, Hepatomegaly, Splenomegaly, Mass, Pulsatile mass - No abdominal bruit was noted either Back: Normal Inspection, -. Negative for: CVA tenderness Extremities: Nontender, No edema, Edema Skin: No rash, Pallor, - - Capillary refill is delayed and concern for mottling. Negative for: Cyanosis Neurological: Alert, Oriented x3, Cranial nerves II-XII grossly intact, Normal Strength, Normal Sensation, Normal Gait Psychological: Normal affect, Normal Mood Diagnostic/Tx/Re-eval Chest X-Ray - ED: 1 View, Read by ED Physician, Normal, Heart, Lungs, Mediastinum, Bony Structures, No Acute Disease Impressions Abdomen/Pelvis CT 01/06/19 10:01 IMPRESSION: Liquefactive stool/diarrhea predominating at the right colon with inflammatory changes and small surrounding lymph nodes (statistically inflammatory/infectious colitis with concurrent enteritis) Hepatosplenomegaly with slightly nodular hepatic contour and varices (suspected cirrhosis) 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) Extensive atherosclerotic calcifications with 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 (consider follow-up nonemergent contrast enhanced scan) Small fluid and fat-containing umbilical hernia Electronically Signed: Ildefonso Juarez DO at 10:59 EDT Tel , Service support , ADDENDUM: 01/06/19 1107 IMPRESSION: Liquefactive stool/diarrhea predominating at the right colon with inflammatory changes and small surrounding lymph nodes (statistically inflammatory/infectious colitis with concurrent enteritis) Hepatosplenomegaly with slightly nodular hepatic contour and varices (suspected cirrhosis) 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 : The above information has been verbally conveyed by Ildefonso Juarez DO to [id number], on 01/06/2019 11:00:48 (ET). Electronically Signed: Ildefonso Juarez DO at 10:59 EDT Tel , Service support , 01/06/19 10:01 Abdomen/Pelvis without Cont [CT] Stat 01/06/19 10:59 Chest 1 View (Portable) [RAD] Stat Laboratory Results 01/06/19 01/06/19 01/06/19 09:35 10:12 10:12 WBC 9.5 RBC 4.99 Hgb 11.7 L Hct 39.2 MCV 78.6 L MCH 23.4 L MCHC 29.8 L RDW 21.5 H RDW Differential 60.8 H Plt Count 100 L MPV 11.0 Immature Gran % (Auto) 0.100 Neut % (Auto) 88.2 H Lymph % (Auto) 5.9 L [place] % (Auto) 4.6 Eos % (Auto) 0.9 Baso % (Auto) 0.3 Absolute Neuts (auto) 8.4 H Absolute Lymphs (auto) 0.56 L Total Counted Not Reportable Differential Comment COMMENT PT 15.1 H INR 1.2 APTT 31.0 Sodium Potassium Chloride Carbon Dioxide Anion Gap BUN Creatinine Estim Creat Clear Calc Est GFR (MDRD) Af Amer Est GFR (MDRD) Non-Af BUN/Creatinine Ratio Glucose Calcium Troponin I Urine Color Yellow Urine Clarity Sl. Cloudy Urine pH 5.0 Ur Specific [place] 1.025 Urine Protein 500 H Urine Glucose (UA) Normal Urine Ketones 5 H Urine Occult Blood 10 H Urine Nitrite Negative Urine Bilirubin 1 H Urine Urobilinogen 1 H Ur Leukocyte Esterase 100 H Urine RBC 0-5 SEEN Urine WBC 10-25 SEEN Ur Squamous Epith Cells 0-5 SEEN Urine Bacteria 1+ Urine Mucus 2+ 01/06/19 10:12 WBC RBC Hgb Hct MCV MCH MCHC RDW RDW Differential Plt Count MPV Immature Gran % (Auto) Neut % (Auto) Lymph % (Auto) [place] % (Auto) Eos % (Auto) Baso % (Auto) Absolute Neuts (auto) Absolute Lymphs (auto) Total Counted Differential Comment PT INR APTT Sodium 139 Potassium 3.8 Chloride 105 Carbon Dioxide 29.0 Anion Gap 5 BUN 11 Creatinine 0.75 Estim Creat Clear Calc 37.60 Est GFR (MDRD) Af Amer 98 Est GFR (MDRD) Non-Af 81 BUN/Creatinine Ratio 14.6 Glucose 214 H Calcium 9.3 Troponin I < 0.015 Urine Color Urine Clarity Urine pH Ur Specific [place] Urine Protein Urine Glucose (UA) Urine Ketones Urine Occult Blood Urine Nitrite Urine Bilirubin Urine Urobilinogen Ur Leukocyte Esterase Urine RBC Urine WBC Ur Squamous Epith Cells Urine Bacteria Urine Mucus ABG reveals a mild respiratory acidosis. PH 7.33, PCO2 49.8, PaO2 83, base excess +1, bicarb 26.5 with an O2 saturation 95% on 2 L by nasal cannula. - Rhythm Strip Rhythm Strip: Sinus Rhythm Rate: 89 Ectopy: None - EKG Initial EKG Interpretation: Sinus Rhythm, RBBB, LAFB - Ventricular rate is 91. The EKG is unchanged from August 15, 2018. DC interval is normal. QRS duration is prolonged at 136 ms. QT interval is upper end of normal. Prior: Unchanged - Medical Decision Making With abrupt onset of pain need to entertain possibility of urologic etiology and specifically ureterolithiasis. Since pain is bilateral and patient reports history of thoracic aneurysm need to entertain possibility of expanding aneurysm. May represent atypical presentation for cardiac or pulmonary embolus. Patient was medicated with 4 mg of Zofran and 4 mg of morphine. Urine is consistent with a UTI. Will obtain culture. Will also obtain CT of the abdomen and pelvis without contrast. If there is an obstructing stone and no dilation of the aorta no further imaging needed. If there is no explanation on the unenhanced scan will perform CT with contrast to evaluate for thoracic/upper abdominal aneurysm. I was informed by her nurse that pulse ox is 81% which return from radiology. Reviewed films and discussed findings with radiologist. She has history of varices. She also has inflammatory changes right colon and mesentery. Since patient now is hypoxic will obtain ABG to assess acid-base status and CO2. Lactate was ordered as well as blood cultures. Portable chest x-ray was obtained to determine if there is evidence of inflammatory changes/infiltrate lower lungs. Will treat with Zosyn for GI and pathogens. Time I received call from radiologist 1 1: 00. Patient reports shortness of breath to quinolones and penicillin. She was treated with gentamicin and metronidazole. Hospitalist was paged at 11: 454 admission to the hospital. 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 Diagnosis: Right sided colitis, UTI (urinary tract infection), Acute respiratory failure with hypoxia and hypercapnia Referrals: Josiah Smith MD [Primary Care Provider] -
--- NOTE | 2019-01-06 09:27 | ED.DCSUM_ITS ---
History of Present Illness Chief Complaint: Back Informant: Patient Onset: Today Context: Sudden Onset Timing: Continuous Quality: Moderate to severe bilateral posterior back pain Location: Thoracic region Current Severity: Moderate Maximum Severity: Severe Worsened by: Movement Relieved by: Nothing Associated Symptoms: Nausea Narrative: Patient is an elderly woman who presents because of abrupt onset of back pain that awoke her from sleep at 0500. She states is bilateral. She reports history of thoracic aneurysm. She is scheduled for EGD and colonoscopy at the [facility] because of blood noted in her stool. She denies dysuria, frequency, urgency or hematuria. She denies history of renal ureterolithiasis. She does report mild shortness of breath. She reports she cannot find a position of comfort. She is not able to qualitate the pain. She denies chest pain. She denies vomiting or diarrhea. She denies black or maroon stool. She denies history of trauma. Prior similar symptoms: No Recent Illness/Hospitalization: No - Past Medical History (1) History of thoracoabdominal aortic aneurysm (TAAA) Status: Chronic (2) Anemia Status: Acute (3) Asthma Status: Chronic (4) COPD (chronic obstructive pulmonary disease) Status: Chronic (5) Diabetes mellitus Status: Chronic (6) GERD (gastroesophageal reflux disease) Status: Chronic (7) Hypertension Status: Chronic Past Medical History - Allergies and Home Meds Allergies/Adverse Reactions: Allergies suture Allergy (Mild, Verified 01/06/19 09:08) rash/ wound dehisence chromic suture amoxicillin Allergy (Verified 01/06/19 09:08) Unknown azithromycin Allergy (Verified 01/06/19 09:08) Shortness of breath celecoxib [From Celebrex] Allergy (Verified 01/06/19 09:08) Other ciprofloxacin [From Cipro] Allergy (Verified 01/06/19 09:08) Shortness of breath ciprofloxacin HCl [From Cipro] Allergy (Verified 01/06/19 09:08) Shortness of breath cortisone Allergy (Verified 01/06/19 09:08) Swelling diazepam [From Valium] Allergy (Verified 01/06/19 09:08) Shortness of breath doxycycline Allergy (Verified 01/06/19 09:08) Shortness of breath erythromycin base Allergy (Verified 01/06/19 09:08) Unknown fexofenadine [From Ashlee] Allergy (Verified 01/06/19 09:08) Unknown ibuprofen Allergy (Verified 01/06/19 09:08) Shortness of breath Iodinated Contrast- Oral and IV Dye [DYEE] Allergy (Verified 01/06/19 09:08) Shortness of breath iodine Allergy (Verified 01/06/19 09:08) Shortness of breath levofloxacin [From Levaquin] Allergy (Verified 01/06/19 09:08) Shortness of breath lorazepam [From Ativan] Allergy (Verified 01/06/19 09:08) Shortness of breath nitrofurantoin [From Macrobid] Allergy (Verified 01/06/19 09:08) Shortness of breath nitrofurantoin macrocrystalline [From Macrobid] Allergy (Verified 01/06/19 09:08) Shortness of breath Penicillins Allergy (Verified 01/06/19 09:08) Shortness of breath rofecoxib [From Vioxx] Allergy (Verified 01/06/19 09:08) Unknown Sulfa (Sulfonamide Antibiotics) Allergy (Verified 01/06/19 09:08) Shortness of breath sulfamethoxazole [From Bactrim] Allergy (Verified 01/06/19 09:08) Shortness of breath trimethoprim [From Bactrim] Allergy (Verified 01/06/19 09:08) Shortness of breath amlodipine [From Norvasc] Adverse Reaction (Verified 01/06/19 09:08) Upset Stomach cat gut sutures Allergy (Uncoded 01/06/19 09:08) Unknown MISC BP MED Allergy (Uncoded 01/06/19 09:08) Shortness of breath Primary Care Physician: Josiah Smith MD [Primary Care Provider] - Prior records reviewed: Yes Surgical History: cholecystectomy, - Lives: Spouse/ Significant Other Smoking Status: Never smoker Alcohol: None - Family History Maternal Family History: Family History (Last Reviewed 12/29/18 @ 13:38 by Debora Ruff) Mother Heart disease Brother Heart disease Family History: Reports: No pertinent history Paternal Family History: Family History (Last Reviewed 12/29/18 @ 13:38 by Debora Ruff) Mother Heart disease Brother Heart disease Family History: Reports: No pertinent history Review of Systems General: Denies: Chills, Fever, Malaise, Sweats Eyes: Denies: Visual changes - bilaterally, Blurred Vision - bilaterally, Diplopia ENT: Denies: Bilateral ear pain, Rhinorrhea, Sore throat Cardiovascular: Denies: Chest pain, Palpitations Respiratory: Reports: Dyspnea. Denies: Cough, Sputum, Dyspnea on exertion, Orthopnea, Paroxysmal nocturnal dyspnea Gastrointestinal: Reports: Abdominal pain - Epigastric discomfort, Nausea. Denies: Vomiting, Diarrhea, Melena, Hematochezia Genitourinary: Denies: Dysuria, Hematuria, Frequency Musculoskeletal: Reports: Back pain. Denies: Myalgias, Arthralgias Skin: Denies: Rash, Wounds Neurological: Denies: Headache, Weakness, Numbness Endocrine: Denies: Polyuria, Polydipsia Hematologic: Denies: Easy bruising Allergy: Denies: Uticaria Physical Exam Vital Signs/Narrative: Vital Signs Temp Pulse Resp BP Pulse Ox 01/06/19 09:06 98.4 F 84 20 H 127/80 H 95 General: Well nourished, Well developed, Obese, Acute Distress Head: Normocephalic, Atraumatic Eyes: Perrl, EOMI ENT: Moist mucous membranes, No rhinorrhea, TM's clear Neck: Supple, Nontender, No lymphadenopathy, No JVD Cardiovascular: Regular rate, Regular rhythm, No murmurs, Normal S1, Normal S2 Respiratory: No distress, CTA bilaterally, Chest nontender Abdomen: Soft, Nondistended, Normal bowel sounds, No masses, Tender, Guarding, Hypoactive bowel sounds. Negative for: Rebound tenderness, Hyperactive bowel sounds, Hepatomegaly, Splenomegaly, Mass, Pulsatile mass - No abdominal bruit was noted either Back: Normal Inspection, -. Negative for: CVA tenderness Extremities: Nontender, No edema, Edema Skin: No rash, Pallor, - - Capillary refill is delayed and concern for mottling. Negative for: Cyanosis Neurological: Alert, Oriented x3, Cranial nerves II-XII grossly intact, Normal Strength, Normal Sensation, Normal Gait Psychological: Normal affect, Normal Mood Diagnostic/Tx/Re-eval Chest X-Ray - ED: 1 View, Read by ED Physician, Normal, Heart, Lungs, Mediastinu m, Bony Structures, No Acute Disease Impressions Abdomen/Pelvis CT 01/06/19 10:01 IMPRESSION: Liquefactive stool/diarrhea predominating at the right colon with inflammatory changes and small surrounding lymph nodes (statistically inflammatory/infectious colitis with concurrent enteritis) Hepatosplenomegaly with slightly nodular hepatic contour and varices (suspected cirrhosis) 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) Extensive atherosclerotic calcifications with 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 (consider follow-up nonemergent contrast enhanced scan) Small fluid and fat-containing umbilical hernia Electronically Signed: Ildefonso Juarez DO at 10:59 EDT Tel , Service support , ADDENDUM: 01/06/19 1107 IMPRESSION: Liquefactive stool/diarrhea predominating at the right colon with inflammatory changes and small surrounding lymph nodes (statistically inflammatory/infectious colitis with concurrent enteritis) Hepatosplenomegaly with slightly nodular hepatic contour and varices (suspected cirrhosis) 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 : The above information has been verbally conveyed by Ildefonso Juarez DO to [id number], on 01/06/2019 11:00:48 (ET). Electronically Signed: Ildefonso Juarez DO at 10:59 EDT Tel , Service support , 01/06/19 10:01 Abdomen/Pelvis without Cont [CT] Stat 01/06/19 10:59 Chest 1 View (Portable) [RAD] Stat Laboratory Results 01/06/19 01/06/19 01/06/19 09:35 10:12 10:12 WBC 9.5 RBC 4.99 Hgb 11.7 L Hct 39.2 MCV 78.6 L MCH 23.4 L MCHC 29.8 L RDW 21.5 H RDW Differential 60.8 H Plt Count 100 L MPV 11.0 Immature Gran % (Auto) 0.100 Neut % (Auto) 88.2 H Lymph % (Auto) 5.9 L [place] % (Auto) 4.6 Eos % (Auto) 0.9 Baso % (Auto) 0.3 Absolute Neuts (auto) 8.4 H Absolute Lymphs (auto) 0.56 L Total Counted Not Reportable Differential Comment COMMENT PT 15.1 H INR 1.2 APTT 31.0 Sodium Potassium Chloride Carbon Dioxide Anion Gap BUN Creatinine Estim Creat Clear Calc Est GFR (MDRD) Af Amer Est GFR (MDRD) Non-Af BUN/Creatinine Ratio Glucose Calcium Troponin I Urine Color Yellow Urine Clarity Sl. Cloudy Urine pH 5.0 Ur Specific [place] 1.025 Urine Protein 500 H Urine Glucose (UA) Normal Urine Ketones 5 H Urine Occult Blood 10 H Urine Nitrite Negative Urine Bilirubin 1 H Urine Urobilinogen 1 H Ur Leukocyte Esterase 100 H Urine RBC 0-5 SEEN Urine WBC 10-25 SEEN Ur Squamous Epith Cells 0-5 SEEN Urine Bacteria 1+ Urine Mucus 2+ 01/06/19 10:12 WBC RBC Hgb Hct MCV MCH MCHC RDW RDW Differential Plt Count MPV Immature Gran % (Auto) Neut % (Auto) Lymph % (Auto) [place] % (Auto) Eos % (Auto) Baso % (Auto) Absolute Neuts (auto) Absolute Lymphs (auto) Total Counted Differential Comment PT INR APTT Sodium 139 Potassium 3.8 Chloride 105 Carbon Dioxide 29.0 Anion Gap 5 BUN 11 Creatinine 0.75 Estim Creat Clear Calc 37.60 Est GFR (MDRD) Af Amer 98 Est GFR (MDRD) Non-Af 81 BUN/Creatinine Ratio 14.6 Glucose 214 H Calcium 9.3 Troponin I < 0.015 Urine Color Urine Clarity Urine pH Ur Specific [place] Urine Protein Urine Glucose (UA) Urine Ketones Urine Occult Blood Urine Nitrite Urine Bilirubin Urine Urobilinogen Ur Leukocyte Esterase Urine RBC Urine WBC Ur Squamous Epith Cells Urine Bacteria Urine Mucus ABG reveals a mild respiratory acidosis. PH 7.33, PCO2 49.8, PaO2 83, base excess +1, bicarb 26.5 with an O2 saturation 95% on 2 L by nasal cannula. - Rhythm Strip Rhythm Strip: Sinus Rhythm Rate: 89 Ectopy: None - EKG Initial EKG Interpretation: Sinus Rhythm, RBBB, LAFB - Ventricular rate is 91. The EKG is unchanged from August 15, 2018. [place] interval is normal. QRS duration is prolonged at 136 ms. QT interval is upper end of normal. Prior: Unchanged - Medical Decision Making With abrupt onset of pain need to entertain possibility of urologic etiology and specifically ureterolithiasis. Since pain is bilateral and patient reports history of thoracic aneurysm need to entertain possibility of expanding aneurysm. May represent atypical presentation for cardiac or pulmonary embolus. Patient was medicated with 4 mg of Zofran and 4 mg of morphine. Urine is consistent with a UTI. Will obtain culture. Will also obtain CT of the abdomen and pelvis without contrast. If there is an obstructing stone and no dilation of the aorta no further imaging needed. If there is no explanation on the unenhanced scan will perform CT with contrast to evaluate for thoracic/upper abdominal aneurysm. I was informed by her nurse that pulse ox is 81% which return from radiology. Reviewed films and discussed findings with radiologist. She has history of varices. She also has inflammatory changes right colon and mesentery. Since patient now is hypoxic will obtain ABG to assess acid-base status and CO2. Lactate was ordered as well as blood cultures. Portable chest x-ray was obtained to determine if there is evidence of inflammatory changes/infiltrate lower lungs. Will treat with Zosyn for GI and pathogens. Time I received call from radiologist 1 1: 00. Patient reports shortness of breath to quinolones and penicillin. She was treated with gentamicin and metronidazole. Hospitalist was paged at 11: 454 admission to the hospital. - Critical Care Time Critical care time (excluding procedures): 30-74 minutes - 33 minutes, Discussing w/Patient &/or Family/Laborer/Grade Check, Discussing w/Consultants, Arranging Admission or Transfer ED Disposition - Plan for ED Patient: Disposition: Acute Care Hospital [facility] Diagnosis: Right sided colitis, UTI (urinary tract infection), Acute respiratory failure with hypoxia and hypercapnia Referrals: Josiah Smith MD [Primary Care Provider] -
[2019-01-06 09:44] LABS: Color, Urine Yellow (Yellow); Glucose, Dipstick Normal (Normal); Ketone-Dipstick 5 mg/dl (Negative); Leukocyte Esterase-Dipstick 100 /ul (Negative); Nitrite-Dipstick Negative (Negative); Occult Blood-Urine 10 /ul (Negative); Protein-Dipstick 500 mg/dl (Negative); Specific Gravity, Urine 1.025 (1.002-1.030); Urine Clarity Sl. Cloudy (Clear); Urine Urobilinogen 1 mg/dl (Normal)
[2019-01-06 09:45] LABS: Urine Bilirubin Dipstick 1 mg/dL (Negative)
[2019-01-06 09:50] LABS: Bacteria 1+ /hpf (None Seen); Mucous, Urine 2+ /hpf (<or=2+); Red Blood Cells-Urine 0-5 SEEN /hpf (0-5); Squamous Epithelial Cells - UA 0-5 SEEN /hpf (5-10); White Blood Cells 10-25 SEEN /hpf (0-5)
--- NOTE | 2019-01-06 10:01 | CT_ITS ---
We are attempting to reach Alex Ryan MD to discuss findings. An addendum with communication details will be sent when the communication is complete. STUDY: CT ABDOMEN AND PELVIS WITHOUT CONTRAST REASON FOR EXAM: Female, 68 years old. Bilateral flank pain. RADIATION DOSAGE (If Supplied By Facility): CTDIvol = ( 18.93 ) mGy, DLP = ( 889.13 ) mGycm TECHNIQUE: Transaxial images were obtained from the dome of the diaphragm to the symphysis pubis without oral contrast, and without intravenous contrast. Sagittal and coronal images were reconstructed. Individualized dose optimization techniques were used for this CT. COMPARISON: June 12, 2010. FINDINGS: Lung bases: Mild dependent changes. Heart: Coronary artery disease/stenting. Liver: Mild hepatomegaly. Slightly nodular contour of the liver (axial image 39 series 2). No focal hepatic lesions given noncontrast technique. Hepatic steatosis. Gallbladder/biliary ducts: Cholecystectomy. No unexpected biliary ductal dilatation. Pancreas: Mild pancreatic atrophy. Spleen: Splenomegaly. Adrenal glands: Unremarkable. Kidneys/ureters/bladder: Mild bilateral renal parenchymal atrophy. Bilateral slightly lobulated renal contours. Nondistended ureters. Underdistended urinary bladder. Uterus/adnexa: Physiologic appearance. Large bowel/small bowel: Liquefactive stool/diarrhea predominating at the right colon. Inflammatory changes surround the right and transverse colon (axial images 73 through 90 series 2). Fluid distended small bowel. No obstruction. No perforation. No pneumatosis. Appendix: Unremarkable (axial image 100 series 2). Gastroesophageal junction/stomach: Gastroesophageal varices. Normal distal esophagus. Normal stomach contour. Retroperitoneum/lymph nodes: No intra-abdominal free air. Trace pelvic free fluid. Small shotty lymph nodes surrounding the right colon. Mesenteric stranding. Vascular: Extensive atherosclerotic calcifications at the abdominal aorta with small displaced intimal calcium (axial image 70 series 2). Gastroesophageal varices. Osseous structures: Degenerative changes. No acute process. Subcutaneous/soft tissues: Small fat and fluid containing umbilical hernia. Hernia neck measures approximately 4 cm. No acute process. CT/Abdomen/Pelvis without Cont IMPRESSION: Liquefactive stool/diarrhea predominating at the right colon with inflammatory changes and small surrounding lymph nodes (statistically inflammatory/infectious colitis with concurrent enteritis) Hepatosplenomegaly with slightly nodular hepatic contour and varices (suspected cirrhosis) 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) Extensive atherosclerotic calcifications with 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 (consider follow-up nonemergent contrast enhanced scan) Small fluid and fat-containing umbilical hernia Electronically Signed: Ildefonso Juarez DO at 10:59 EDT Tel , Service support ,
[2019-01-06] MEDS: Ondansetron 4 MG/2 ML Vial IV (10:12)
[2019-01-06] MEDS: Morphine 4 MG/ML Syringe IV ×2 (10:12→12:36)
[2019-01-06 10:24] LABS: Absolute Lymphocyte Count 0.56 X10^3/ul (0.83-4.51); Absolute Neutrophil Count 8.4 X10^3/uL (2.0-7.7); Basophil# 0.03 X10^3/uL; Basophil% 0.3 % (0-1); Eosinophil# 0.09 X10^3/uL; Eosinophils% 0.9 % (0-5); Hematocrit 39.2 % (37-47); Hemoglobin 11.7 g/dl (12.0-15.0); Lymphocyte # 0.56 X10^3/ul (4.0); Lymphocyte % 5.9 % (19-41); Mean Corp Hgb Conc 29.8 g/gl (32-36); Mean Corpuscular Hgb 23.4 pg (27.0-32.0); Mean Corpuscular Volume 78.6 fL (81-99); Monocyte# 0.44 X10^3/uL; Monocyte% 4.6 % (0-10); Neutrophil % 88.2 % (47-70); Platelet Count 100 K/mm3 (150-450); RBC Distribution Width CV 21.5 % (11.6-14.6); RBC Distribution Width SD 60.8 fl (35.1-43.9); Red Blood Count 4.99 M/mm3 (4.2-5.4); White Blood Count 9.5 K/mm3 (4.4-11.0)
[2019-01-06 10:28] LABS: Differential Indicated SCAN CRITERIA MET; POSITIVE COUNT NO; POSITIVE DIFFERENTIAL YES; POSITIVE MORPHOLOGY YES
[2019-01-06 10:36] LABS: International Normalized Ratio 1.2; Prothrombin Time (Protime)PT. 15.1 SECONDS (11.7-14.9)
[2019-01-06 10:37] LABS: Anion Gap 5 (5-15); BUN 11 mg/dL (7-18); BUN/Creat Ratio 14.6 RATIO (10-20); Calcium,Total 9.3 mg/dL (8.5-10.1); Chloride 105 mmol/L (98-107); Creatinine, Serum 0.75 mg/dL (0.55-1.02); EST Glomerular Filtration Rate 81 mL/min (>60); Est Glom Filt Rate - Afr Amer 98 mL/min (>60); Glucose 214 mg/dL (74-106); Potassium 3.8 mmol/L (3.5-5.1); Sodium Level 139 mmol/L (136-145)
--- NOTE | 2019-01-06 10:59 | RAD_ITS ---
STUDY: X-RAY CHEST REASON FOR EXAM: Female, 68 years old. Hypoxia TECHNIQUE: Single AP portable view of the chest. COMPARISON: Chest x-ray 07/05/2017 FINDINGS: The lungs are clear and expanded. There is no demonstrated pleural abnormality. Normal size heart. Normal mediastinum and ivan. Normal visualized pulmonary arteries. Mild aortic calcifications. Normal visualized thoracic spine. Normal visualized ribs, clavicles, and shoulders. There is no demonstrated abnormality of the visualized soft tissue structures of the upper abdomen. RAD/Chest 1 View (Portable) IMPRESSION: Normal x-ray examination of the chest. Electronically Signed: Girish Zamarripa, at 12:02 EDT Tel , Service support ,
[2019-01-06 11:46] LABS: Base Excess 1 mmol/L (-2 to +2); Bicarbonate 26.5 mmol/L (22-26); Blood Gas Specimen Type ART; O2 Delivery Device Nasal Can; PO2 83 mmHG (75-100); SITE L Brachial; SO2 95 % (95-99); Time Given 1128; Total Carbon Dioxide 28 mmol/L; pCO2 49.8 mmHg (35-45); pH 7.34 (7.35-7.45)
[2019-01-06 12:00] LABS: Lactic Acid 2.6 mmol/L (0.4-2.0)
--- NOTE | 2019-01-06 12:00 | ED.RN ---
lactic acid 2.6
[2019-01-06 14:35] LABS: Bedside Glucose 158 mg/dL (70-110)
[2019-01-06] MEDS: Ondansetron 4 MG/2 ML Vial 8 MG IV (14:44)
[2019-01-06] MEDS: Heparin Injection (Vial) 5,000 UNIT/ML VIAL 5000 UNIT SC ×2 (14:47→21:10)
--- NOTE | 2019-01-06 15:08 | CASEMGMT ---
Assessment- SW met with patient. Introduced self and role at [facility]. Patient's family was present and patient was fine with talking in front of her family. Living situation- Patient lives with her in a 1 story home. She has a few entry steps. PCP: Dr Josiah Smith Specialists: [facility] Electro Mechanic and a Liver doctor Pharmacy: [facility] DME: walker, O2, and nebulizer from [facility] ADL's/IADL's: Independent in all activities Past SNF/rehab: None Past HH: None LW: No POA: No Plan: Patient was independent prior to her hospitalization. Patient plans on returning home at d/c. She does not think she will need anything at d/c. ARCENIO and RN CM to follow. Lety CLIFTON [employer]
[2019-01-06 15:22] LABS: Reflex Lactate? Y
--- NOTE | 2019-01-06 15:49 | ECHOD_ITS ---
Reason For Study: DYSPNEA Procedure This was a 2D Doppler, Color Flow transthoracic echocardiogram. Exam performed in department. Left Ventricle Normal LV size. Mild concentric left ventricular hypertrophy. Left ventricular systolic function is normal. The estimated ejection fraction is 60 %. Stage 1 diastolic dysfunction. No regional wall motion abnormalities noted. Right Ventricle Normal RV size. Normal systolic function. Atria The left atrium is mildly enlarged. Normal right atrium. Mitral Valve There is mild to moderate mitral annular calcification. Mild (1+) eccentric mitral valve insufficiency. Tricuspid Valve Normal tricuspid valve. Mild to moderate (1-2+) tricuspid valve insufficiency. Pulmonary artery systolic pressure is 48 mmHg. Aortic Valve Trisinus/trileaflet aortic valve. Aortic sclerosis, no stenosis. Pulmonic Valve Normal pulmonic valve. Great Vessels Normal aortic root. The pulmonary artery is normal size. Normal inferior vena cava. Pericardium/Pleural No pericardial effusion. MMode/2D Measurements & Calculations LVIDd: 4.5 cm IVSd: 1.2 cm Ao root diam: 3.2 cm LVIDs: 2.3 cm LVPWd: 1.3 cm RVDd: 3.1 cm FS: 47.4 % LAV(MOD-bp): 62.2 ml LVAd ap4: 31.8 cm2 SV(MOD-sp4): 69.5 ml LAV(MOD-bp) Indexed: 35.2 ml/m2 EDV(MOD-sp4): 102.9 ml LAV(MOD-sp2): 58.4 ml EDV(sp4-el): 107.2 ml LAV(MOD-sp4): 67.5 ml LVAs ap4: 15.5 cm2 ESV(MOD-sp4): 33.4 ml ESV(sp4-el): 32.3 ml EF(MOD-sp4): 67.5 % EF(sp4-el): 69.8 % SV(sp4-el): 74.9 ml LA A4 area: 21.1 cm2 LA dimension(2D): 4.6 cm RA A4 area: 17.0 cm2 Time Measurements MV dec time: 0.26 sec Doppler Measurements & Calculations MV E max darin: 112.2 cm/sec Lat Peak E' Darin: 6.8 cm/sec Med Peak E' Darin: 5.8 cm/sec MV A max darin: 141.1 cm/sec E/E' lat: 16.6 E/E' med: 19.3 MV E/A: 0.80 MV V2 max: 150.9 cm/sec Ao V2 max: 200.8 cm/sec LV V1 max: 138.2 cm/sec MV max P.1 mmHg Ao max P.1 mmHg LV V1 max P.6 mmHg MV V2 mean: 102.4 cm/sec MV mean P.5 mmHg MV V2 VTI: 39.7 cm PA V2 max: 131.8 cm/sec TR max darin: 327.1 cm/sec MV P1/2t-pr_phl: 104.5 msec TR max P.0 mmHg Interpretation Summary Normal LV size. Mild concentric left ventricular hypertrophy. Left ventricular systolic function is normal. The estimated ejection fraction is 60 %. Stage 1 diastolic dysfunction. Structurally normal valves. Ordering Physician: Sha Merchant Referring Physician: SHA CONLEY Performed By: Zonia Vazquez, KARMACS, RVT
[2019-01-06] MEDS: 0.9% Normal Saline 1,000 ML 100 ML IV (16:25)
[2019-01-06] MEDS: cloNIDine HCl 0.2 MG Tablet PO ×3 (16:26→21:10)
[2019-01-06 16:27] LABS: Lactic Acid 2.4 mmol/L (0.4-2.0)
[2019-01-06 16:36] LABS: Bedside Glucose 181 mg/dL (70-110)
--- NOTE | 2019-01-06 17:52 | PCM.HP.STD ---
Problem List (1) Low back pain Status: Acute Qualifiers: Chronicity: acute Back pain laterality: bilateral Sciatica presence: without sciatica Qualified Code(s): M54.5 - Low back pain History of Present Illness Date of Admission: 01/06/19 Chief Complaint: Low back pain The patient is a 68 year old F who was seen in the emergency room today at [facility] with a chief complaint of lower back pain which awoke her from sleep approximately 5 AM today, she states the low back pain is bilateral located over the lower lumbar region, it did not radiate into the legs, patient denied any abdominal discomfort, dysuria, or urinary frequency. 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 Evaluation in the emergency room included labs which revealed a normal white blood cell count, hemoglobin was slightly low at 11.7, patient's pulse ox was low on room air and so an arterial blood gas was obtained on 2 L, patient's pH was 7.34, PCO2 was 49, PO2 was 83. Chemistry profile was remarkable for a glucose of 214, lactic acid was elevated at 2.6. Urinalysis indicated a urinary tract infection with +1 bacteria, 10-25 WBCs, and 5-10 RBCs. Patient's chest x-ray was unremarkable, CT scan of the abdomen and pelvis was obtained without contrast, this revealed liquid stool in the right colon with inflammatory changes and small surrounding lymph nodes-this was read out as an inflammatory/infectious colitis with concurrent enteritis. There is also noted to be a nodular appearance to the liver-this was suspected cirrhosis. 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 Patient was felt to have pyelonephritis, colitis, and hypoxia, patient does have a history of COPD and told this examiner that she does have home oxygen which she uses occasionally at home. Patient does not appear to have criteria for sepsis at this time, she was be admitted to PCU, placed on IV Rocephin and Flagyl, and she will be placed on her home medications for blood pressure and type 2 diabetes. Patient's blood sugars will be monitored and she will be given sliding scale insulin as needed. Past Medical History Past Medical History (Chronic Problems): Chronic Problems (Last Reviewed 12/29/18 @ 13:38 by Debora Ruff) History of thoracoabdominal aortic aneurysm (TAAA) (Chronic) Hypertension (Chronic) Diabetes mellitus (Chronic) COPD (chronic obstructive pulmonary disease) (Chronic) Asthma (Chronic) GERD (gastroesophageal reflux disease) (Chronic) Anemia (Chronic) Medical History: Medical History (Last Reviewed 12/29/18 @ 13:38 by Debora Ruff) Skin lesion (Resolved) L98.9 Hypertension (Chronic) I10 Diabetes mellitus (Chronic) E11.9 COPD (chronic obstructive pulmonary disease) (Chronic) J44.9 Asthma (Chronic) J45.909 GERD (gastroesophageal reflux disease) (Chronic) K21.9 Anemia (Chronic) D64.9 Depressive disorder F32.9 Osteoarthrosis M19.90 history diagnostic hysteroscopy history thrombendarterectomy neck Allergies suture Allergy (Mild, Verified 01/06/19 09:08) rash/ wound dehisence chromic suture amoxicillin Allergy (Verified 01/06/19 09:08) Unknown azithromycin Allergy (Verified 01/06/19 09:08) Shortness of breath celecoxib [From Celebrex] Allergy (Verified 01/06/19 09:08) Other ciprofloxacin [From Cipro] Allergy (Verified 01/06/19 09:08) Shortness of breath ciprofloxacin HCl [From Cipro] Allergy (Verified 01/06/19 09:08) Shortness of breath cortisone Allergy (Verified 01/06/19 09:08) Swelling doxycycline Allergy (Verified 01/06/19 09:08) Shortness of breath erythromycin base Allergy (Verified 01/06/19 09:08) Unknown fexofenadine [From Ashlee] Allergy (Verified 01/06/19 09:08) Unknown ibuprofen Allergy (Verified 01/06/19 09:08) Shortness of breath Iodinated Contrast- Oral and IV Dye [DYEE] Allergy (Verified 01/06/19 09:08) Shortness of breath iodine Allergy (Verified 01/06/19 09:08) Shortness of breath levofloxacin [From Levaquin] Allergy (Verified 01/06/19 09:08) Shortness of breath lorazepam [From Ativan] Allergy (Verified 01/06/19 09:08) Shortness of breath nitrofurantoin [From Macrobid] Allergy (Verified 01/06/19 09:08) Shortness of breath nitrofurantoin macrocrystalline [From Macrobid] Allergy (Verified 01/06/19 09:08) Shortness of breath Penicillins Allergy (Verified 01/06/19 09:08) Shortness of breath rofecoxib [From Vioxx] Allergy (Verified 01/06/19 09:08) Unknown Sulfa (Sulfonamide Antibiotics) Allergy (Verified 01/06/19 09:08) Shortness of breath sulfamethoxazole [From Bactrim] Allergy (Verified 01/06/19 09:08) Shortness of breath trimethoprim [From Bactrim] Allergy (Verified 01/06/19 09:08) Shortness of breath amlodipine [From Norvasc] Adverse Reaction (Verified 01/06/19 09:08) Upset Stomach cat gut sutures Allergy (Uncoded 01/06/19 09:08) Unknown MISC BP MED Allergy (Uncoded 01/06/19 09:08) Shortness of breath Home Medications: Ambulatory Orders Medication Instructions Recorded Glimepiride [Amaryl] 4 mg PO DINNER 09/10/13 Metformin HCl [Glucophage] 1,000 mg PO BID 01/23/16 Albuterol IH (ProAir) [Proair Hfa] 2 puff INHALATION PRN PRN 07/04/16 clonidine HCl 0.1 mg tablet 0.2 mg PO DAILY tab 11/20/17 Diazepam [Valium] 2.5 mg PO PRN PRN 08/15/18 Clonidine HCl [Catapres] 0.1 mg PO LUNCH 01/06/19 Clonidine HCl [Catapres] 0.2 mg PO DINNER 01/06/19 Clonidine HCl [Catapres] 0.2 mg PO QHS 01/06/19 Glimepiride [Amaryl] 4.5 mg PO BREAKFAST 01/06/19 Surgical History: Surgical History (Last Reviewed 12/29/18 @ 13:38 by Debora Ruff) History of bilateral salpingo-oophorectomy Z98.890, Z90.722 History of laparoscopic cholecystectomy Z98.890, Z90.49 History of oral surgery Z98.890 Surgical History: cholecystectomy, - - Carotid endarterectomy, oophorectomy Psychiatric History: No pertinent psych hx [employer] 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 Lives: Spouse/ Significant Other Smoking Status: Never smoker Tobacco Use: Non-smoker Alcohol: None Drugs: None - *Family History Maternal Family History: Family History (Last Reviewed 12/29/18 @ 13:38 by Debora Ruff) Mother Heart disease Brother Heart disease History Items: Diabetes, Hypertension Paternal Family History: Family History (Last Reviewed 12/29/18 @ 13:38 by Debora Ruff) Mother Heart disease Brother Heart disease History Items: Diabetes, Hypertension Review of Systems Constitutional: Denies: Anorexia, Chills, Fever, Night Sweats, Malaise, Weakness, Weight Change, Fatigue Eyes: Denies: Blurred vision, Cataracts, Conjunctivae Inflammation, Double vision, Drainage HEENT: Denies: Difficulty Swallowing, Dysphasia, Ear Pain, Eye Pain, Hearing Changes, Nasal bleeding, Nasal Congestion, Post Nasal Drip Cardiovascular: Denies: Chest Pain, Claudication, Chest Pressure, Chest Tightness, Edema, Heaviness, Orthopnea, Palpitations Respiratory: Denies: Cough, Hemoptysis, Pleuritic Pain, Shortness of Breath, Shortness of breath at rest, Shortness of breath upon exertion, Sputum production Gastrointestinal: Denies: Abdominal Pain, Constipation, Diarrhea, Hematemesis, Hematochezia, Nausea, Melena, Vomiting Genitourinary: Denies: Dysuria, Frequency, Hematuria, Hesitancy, Incontinence, Nocturia, Retention, Urgency Gynecological: Denies: Breast symptoms Musculoskeletal: Reports: Back Pain. Denies: Foot Pain, Hand Pain, Joint Pain, Joint stiffness, Joint swelling, Joint Tenderness, Leg Pain Skin: Denies: Dryness, Pruritis, Rash Neurological: Denies: Balance problems, Blurred vision, Double vision, Slurred speech, Difficulty swallowing, Focal weakness, Headaches, Numbness, Tingling Psychiatric: Denies: Anxiety, Depression, Homicidal Ideations, Suicidal Ideations Endocrine: Denies: Change in Body Habitus, Heat/ Cold Intolerance, Polydipsia, Polyuria Hematologic/ Lymphatic: Denies: Adenopathy, Anemia, Easy Bruising, Easy Bleeding, Petechiae, Purpura VTE Information - Inpt Only VTE Present on Admission: No VTE Mechan Device Prophylaxis: None VTE Pharm Prophylaxis ordered?: Yes Patient Problems: Active and Suspected Problems (Last Updated 01/06/19 @ 18:11 by Josiah Merchant DO) Right sided colitis (Acute) UTI (urinary tract infection) (Acute) Acute respiratory failure with hypoxia and hypercapnia (Suspected) Low back pain (Acute) - Physical Exam General: Alert, Oriented x3, Cooperative, No apparent distress, Well developed HEENT: Atraumatic, PERRLA, EOMI, Normocephalic Oral: Moist Mucosa Neck: Supple, No JVD, Negative Carotid Bruits, No Nuchal Rigidity, Trachea Midline, Thyroid Normal Size and Texture Lungs: Clear to auscultation, Normal air movement, No rhonchi, No wheeze, No rales Cardiovascular: Regular rate, Regular Rhythm, Normal S1, Normal S2, No murmurs, No Ectopic Activity, PMI Normal, No rub noted, No Gallop Abdomen: Bowel Sounds Present, Soft, Non Tender, Non-Distended, No hernias noted Extremities: No clubbing, No cyanosis, No edema, Capillary Refill Less than 3 Seconds Skin: No rashes, No breakdown Musculoskeletal: No Tenderness to Palpation of Joints or Extremities Neurological: Cranial nerves II-XII grossly intact, Neuro grossly intact, Sensory exam intact to light touch and pain, Coordination normal Psych/Mental Status: Normal Affect, Appropriate, Alert and oriented to time, place, person, mood and affect Vital Signs Temp Pulse Resp BP Pulse Ox 97.2 F L 93 18 220/76 H 97 01/06/19 15:17 01/06/19 15:17 01/06/19 15:17 01/06/19 15:17 01/06/19 15:17 Oxygen Flow Rate (L/min) 2 Oxygen Delivery Method Nasal Cannula Weight: 80.3 kg Body Mass Index (BMI) 34.5 Finger Stick Blood Glucose 218 Laboratory Tests Past 24 Hrs 01/06/19 01/06/19 01/06/19 09:35 10:12 10:12 WBC 9.5 RBC 4.99 Hgb 11.7 L Hct 39.2 MCV 78.6 L MCH 23.4 L MCHC 29.8 L RDW 21.5 H RDW Differential 60.8 H Plt Count 100 L MPV 11.0 Immature Gran % (Auto) 0.100 Neut % (Auto) 88.2 H Lymph % (Auto) 5.9 L [place] % (Auto) 4.6 Eos % (Auto) 0.9 Baso % (Auto) 0.3 Absolute Neuts (auto) 8.4 H Absolute Lymphs (auto) 0.56 L Total Counted Not Reportable Differential Comment COMMENT PT 15.1 H INR 1.2 APTT 31.0 Specimen Type Sample Site pH Bicarbonate Actual POC Total CO2 Base Excess O2 Saturation ABG pCO2 ABG pO2 Eliecer Test O2 Delivery Device Liter Flow Blood Gas Notified Whom Blood Gas Notified Time Sodium Potassium Chloride Carbon Dioxide Anion Gap BUN Creatinine Estim Creat Clear Calc Est GFR (MDRD) Af Amer Est GFR (MDRD) Non-Af BUN/Creatinine Ratio Glucose Lactic Acid Calcium Troponin I Urine Color Yellow Urine Clarity Sl. Cloudy Urine pH 5.0 Ur Specific Monroe 1.025 Urine Protein 500 H Urine Glucose (UA) Normal Urine Ketones 5 H Urine Occult Blood 10 H Urine Nitrite Negative Urine Bilirubin 1 H Urine Urobilinogen 1 H Ur Leukocyte Esterase 100 H Urine RBC 0-5 SEEN Urine WBC 10-25 SEEN Ur Squamous Epith Cells 0-5 SEEN Urine Bacteria 1+ Urine Mucus 2+ 01/06/19 01/06/19 01/06/19 10:12 11:15 11:40 WBC RBC Hgb Hct MCV MCH MCHC RDW RDW Differential Plt Count MPV Immature Gran % (Auto) Neut % (Auto) Lymph % (Auto) [place] % (Auto) Eos % (Auto) Baso % (Auto) Absolute Neuts (auto) Absolute Lymphs (auto) Total Counted Differential Comment PT INR APTT Specimen Type ART Sample Site L Brachial pH 7.34 L Bicarbonate Actual 26.5 H POC Total CO2 28 Base Excess 1 O2 Saturation 95 ABG pCO2 49.8 H ABG pO2 83 Eliecer Test NA O2 Delivery Device Nasal Can Liter Flow 2.0 Blood Gas Notified Whom ED Blood Gas Notified Time 1128 Sodium 139 Potassium 3.8 Chloride 105 Carbon Dioxide 29.0 Anion Gap 5 BUN 11 Creatinine 0.75 Estim Creat Clear Calc 37.60 Est GFR (MDRD) Af Amer 98 Est GFR (MDRD) Non-Af 81 BUN/Creatinine Ratio 14.6 Glucose 214 H Lactic Acid 2.6 H Calcium 9.3 Troponin I < 0.015 Urine Color Urine Clarity Urine pH Ur Specific Monroe Urine Protein Urine Glucose (UA) Urine Ketones Urine Occult Blood Urine Nitrite Urine Bilirubin Urine Urobilinogen Ur Leukocyte Esterase Urine RBC Urine WBC Ur Squamous Epith Cells Urine Bacteria Urine Mucus 01/06/19 15:45 WBC RBC Hgb Hct MCV MCH MCHC RDW RDW Differential Plt Count MPV Immature Gran % (Auto) Neut % (Auto) Lymph % (Auto) [place] % (Auto) Eos % (Auto) Baso % (Auto) Absolute Neuts (auto) Absolute Lymphs (auto) Total Counted Differential Comment PT INR APTT Specimen Type Sample Site pH Bicarbonate Actual POC Total CO2 Base Excess O2 Saturation ABG pCO2 ABG pO2 Eliecer Test O2 Delivery Device Liter Flow Blood Gas Notified Whom Blood Gas Notified Time Sodium Potassium Chloride Carbon Dioxide Anion Gap BUN Creatinine Estim Creat Clear Calc Est GFR (MDRD) Af Amer Est GFR (MDRD) Non-Af BUN/Creatinine Ratio Glucose Lactic Acid 2.4 H Calcium Troponin I Urine Color Urine Clarity Urine pH Ur Specific Monroe Urine Protein Urine Glucose (UA) Urine Ketones Urine Occult Blood Urine Nitrite Urine Bilirubin Urine Urobilinogen Ur Leukocyte Esterase Urine RBC Urine WBC Ur Squamous Epith Cells Urine Bacteria Urine Mucus POC Glucose 01/06/19 01/06/19 16:27 14:32 POC Glucose 181 H 158 H Assessment/Plan All Active Problems (Last Updated 01/06/19 @ 18:11 by Josiah Merchant DO) Right sided colitis (Acute) UTI (urinary tract infection) (Acute) Low back pain (Acute) Skin lesion (Resolved) #1 acute pyelonephritis-patient was admitted to PCU, she will remain on IV Rocephin, labs will be monitored #2 acute colitis-etiology unclear, patient will be placed on IV Flagyl and continue IV Rocephin #3 hypertension-patient states that she is allergic to all blood pressure medications other than what she is on-currently she is on clonidine, it is unknown whether the patient has actual allergies or side effects to certain blood pressure medications. Patient may have to have other blood pressure medications added to her present regimen, patient states I was told never to take a diuretic because she has cirrhosis-I told her that diuretics are sometimes used for cirrhosis. 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 Code Visit Inpatient E&M: 07388 Init Hosp L3
[2019-01-06 18:15] LABS: Bedside Glucose 188 mg/dL (70-110)
[2019-01-06] MEDS: proMETHazine 25 MG/ML Syringe 12.5 MG IV (18:54)
--- NOTE | 2019-01-06 20:58 | NUR.TO.PHY ---
Pt. refusing IV hydralazine. States she is afraid of any reactions and if we give her the clonidine at the right times, her BP will be OK.
[2019-01-06] MEDS: metFORMIN HCl 1,000 MG Tablet 1000 MG PO (21:15)
[2019-01-06] MEDS: Glimepiride 4 MG Tablet PO (21:18)
[2019-01-06 22:56] LABS: Bedside Glucose 203 mg/dL (70-110)
[2019-01-07] VITALS (17 sets, daily range): BP systolic 154–221; BP diastolic 50–68; PULSE 63–85; RESP 16–20; TEMP 36.8–37.4; O2SAT 84–98
[2019-01-07] MEDS: 0.9% Normal Saline 1,000 ML 100 ML IV ×2 (03:20→14:24)
[2019-01-07] MEDS: Heparin Injection (Vial) 5,000 UNIT/ML VIAL 5000 UNIT SC ×3 (05:26→21:16)
[2019-01-07 05:56] LABS: Bedside Glucose 108 mg/dL (70-110)
[2019-01-07 06:33] LABS: Anion Gap 6 (5-15); BUN 10 mg/dL (7-18); BUN/Creat Ratio 13.2 RATIO (10-20); Calcium,Total 8.3 mg/dL (8.5-10.1); Chloride 108 mmol/L (98-107); Creatinine, Serum 0.76 mg/dL (0.55-1.02); EST Glomerular Filtration Rate 80 mL/min (>60); Est Glom Filt Rate - Afr Amer 97 mL/min (>60); Glucose 102 mg/dL (74-106); Potassium 3.4 mmol/L (3.5-5.1); Sodium Level 143 mmol/L (136-145)
[2019-01-07 06:38] LABS: Absolute Neutrophil Count 5.4 X10^3/uL (2.0-7.7); Basophil# 0.03 X10^3/uL; Basophil% 0.4 % (0-1); Differential Indicated SCAN CRITERIA MET; Eosinophil# 0.15 X10^3/uL; Eosinophils% 2.2 % (0-5); Hematocrit 36.7 % (37-47); Lymphocyte % 8.9 % (19-41); Mean Corpuscular Hgb 23.8 pg (27.0-32.0); Mean Corpuscular Volume 79.3 fL (81-99); Mean Platelet Vol. 10.7 fl (6.2-12.0); Monocyte# 0.53 X10^3/uL; Monocyte% 7.9 % (0-10); Neutrophil % 80.5 % (47-70); POSITIVE COUNT NO; POSITIVE DIFFERENTIAL YES; POSITIVE MORPHOLOGY YES; Platelet Count 110 K/mm3 (150-450); RBC Distribution Width CV 21.2 % (11.6-14.6); RBC Distribution Width SD 61.4 fl (35.1-43.9); Red Blood Count 4.63 M/mm3 (4.2-5.4); White Blood Count 6.7 K/mm3 (4.4-11.0)
[2019-01-07 07:06] LABS: Anisocytosis 1+; Differential Comment SCAN; Hypochromasia 1+; Microcytosis 1+; Platelet Estimate SLT DEC (ADEQ); Platelet Morphology LARGE; Polychromasia 1+
--- NOTE | 2019-01-07 07:34 | CPS ---
patient refused to have oxygen weaned due to failed attempt earlier today.
[2019-01-07] MEDS: Glimepiride 4 MG Tablet PO ×2 (08:11→17:17)
[2019-01-07] MEDS: metFORMIN HCl 1,000 MG Tablet 1000 MG PO ×2 (08:11→17:17)
[2019-01-07] MEDS: cloNIDine HCl 0.1 MG Tablet 0.2 MG PO (08:12)
[2019-01-07 08:20] LABS: Bedside Glucose 160 mg/dL (70-110)
[2019-01-07] MEDS: Acetaminophen 325 MG Tablet 650 MG PO ×2 (08:29→19:30)
[2019-01-07] MEDS: Albuterol 2.5 MG/3 ML VIAL.NEB. INHALATION ×3 (08:35→18:29)
--- NOTE | 2019-01-07 08:36 | CPS ---
PATIENT REQUESTED PRN TREATMENT DUE TO SOB, COUGH.
--- NOTE | 2019-01-07 08:38 | CPS ---
PATIENT FOUND WITH OXYGEN OFF AT TIME OF VISIT
[2019-01-07] MEDS: Insulin Lispro 100 UNIT/ML INSULN.PEN SC (11:44)
[2019-01-07 12:56] LABS: Bedside Glucose 191 mg/dL (70-110)
[2019-01-07] MEDS: cloNIDine HCl 0.2 MG Tablet PO ×2 (14:24→21:16)
[2019-01-07] MEDS: cloNIDine HCl 0.1 MG Tablet PO (16:00)
[2019-01-07] MEDS: Spironolactone 25 MG Tablet PO (16:03)
--- NOTE | 2019-01-07 16:20 | NURSING ---
This RN taking over care at this time
[2019-01-07 16:21] LABS: Bedside Glucose 103 mg/dL (70-110)
--- NOTE | 2019-01-07 17:27 | PN_ITS ---
Patient Problems: Active and Suspected Problems (Last Updated 01/06/19 @ 18:11 by Josiah Merchant, ) Right sided colitis (Acute) UTI (urinary tract infection) (Acute) Acute respiratory failure with hypoxia and hypercapnia (Suspected) Low back pain (Acute) Subjective: Patient was seen and examined today, her blood pressure is still not under good control. I have decided to increase her Catapres to her home dosage. I have also decided to place her on Aldactone-patient agrees to take this. Patient has been afebrile, echocardiogram today showed a preserved ejection fraction with evidence of pulmonary hypertension. Patient states that she feels better today. - Physical Exam General: Alert, Oriented x3, Cooperative, No apparent distress, Well developed, Well nourished HEENT: Atraumatic, PERRLA, EOMI, Normocephalic Oral: Moist Mucosa Neck: Supple, Trachea Midline, Thyroid Normal Size and Texture Lungs: Clear to auscultation, Normal air movement, No rhonchi, No wheeze, No rales Cardiovascular: Regular rate, Regular Rhythm, Normal S1, Normal S2, No murmurs, No Ectopic Activity Abdomen: Bowel Sounds Present, Soft, Non Tender, Non-Distended Extremities: No clubbing, No cyanosis, No edema, Capillary Refill Less than 3 Seconds Skin: No rashes, No breakdown Musculoskeletal: No Tenderness to Palpation of Joints or Extremities Neurological: Cranial nerves II-XII grossly intact, Neuro grossly intact, Sensory exam intact to light touch and pain, Coordination normal Psych/Mental Status: Normal Affect, Appropriate, Alert and oriented to time, place, person, mood and affect Vital Signs Temp Pulse Resp BP Pulse Ox 99.1 F 80 19 H 202/50 H 95 01/07/19 16:00 01/07/19 16:00 01/07/19 16:00 01/07/19 16:00 01/07/19 16:00 Oxygen Flow Rate (L/min) 2 Oxygen Delivery Method Room Air Weight: 80.3 kg Body Mass Index (BMI) 34.5 Finger Stick Blood Glucose 218 Intake and Output for Last 24 Hours 01/05/19 01/06/19 01/07/19 23:59 23:59 23:59 Intake Total 916 / 916 1655 / 1655 Output Total 200 / 200 525 / 525 Balance 716 / 716 1130 / 1130 Laboratory Tests Past 24 Hrs 01/07/19 01/07/19 05:50 05:50 WBC 6.7 RBC 4.63 Hgb 11.0 L Hct 36.7 L MCV 79.3 L MCH 23.8 L MCHC 30.0 L RDW 21.2 H RDW Differential 61.4 H Plt Count 110 L MPV 10.7 Immature Gran % (Auto) 0.100 Neut % (Auto) 80.5 H Lymph % (Auto) 8.9 L [place] % (Auto) 7.9 Eos % (Auto) 2.2 Baso % (Auto) 0.4 Absolute Neuts (auto) 5.4 Absolute Lymphs (auto) 0.60 L Total Counted Not Reportable Differential Comment SCAN Platelet Estimate SLT DEC Plt Morphology Comment LARGE Polychromasia 1+ Hypochromasia 1+ Anisocytosis 1+ Microcytosis 1+ Sodium 143 Potassium 3.4 L Chloride 108 H Carbon Dioxide 29.0 Anion Gap 6 BUN 10 Creatinine 0.76 Estim Creat Clear Calc 37.60 Est GFR (MDRD) Af Amer 97 Est GFR (MDRD) Non-Af 80 BUN/Creatinine Ratio 13.2 Glucose 102 Calcium 8.3 L POC Glucose 01/07/19 01/07/19 01/07/19 16:17 11:38 08:06 POC Glucose 103 191 H 160 H 01/07/19 01/06/19 01/06/19 05:42 21:08 18:08 POC Glucose 108 203 H 188 H Medical Necessity - Tobacco Use Smoking Status: Never smoker Tobacco Use: Non-smoker Assessment/Plan All Active Problems (Last Updated 01/06/19 @ 18:11 by Josiah Merchant DO) Right sided colitis (Acute) UTI (urinary tract infection) (Acute) Low back pain (Acute) Skin lesion (Resolved) #1 acute pyelonephritis-continue IV Rocephin #2 acute colitis-etiology unclear, patient will remain on IV Flagyl and continue IV Rocephin #3 hypertension-patient may have to have additional blood pressure medications added to her current regimen #4 cirrhosis secondary to fatty liver #5 chronic anemia-believed to be secondary to GI blood loss from unknown site, patient is going to be following up with a GI doctor as an outpatient #6 esophageal varices-noted on CT scan #7 type 2 diabetes-patient's blood sugars will be monitored #8 hypoxia-it appears that patient has chronic hypoxic respiratory failure, she states she has oxygen at home, I do not think she is in an exacerbation of COPD at this time. Code Visit Inpatient E&M: 96275 Subs Hosp L2
[2019-01-07 21:30] LABS: Bedside Glucose 145 mg/dL (70-110)
[2019-01-08] VITALS (8 sets, daily range): BP systolic 151–233; BP diastolic 53–81; PULSE 65–78; RESP 16–20; TEMP 36.6–36.8; O2SAT 92–97
[2019-01-08] MEDS: 0.9% Normal Saline 1,000 ML 100 ML IV (02:51)
[2019-01-08] MEDS: Heparin Injection (Vial) 5,000 UNIT/ML VIAL 5000 UNIT SC (06:13)
[2019-01-08 07:06] LABS: Bedside Glucose 126 mg/dL (70-110)
[2019-01-08] MEDS: Albuterol 2.5 MG/3 ML VIAL.NEB. INHALATION (07:19)
[2019-01-08] MEDS: metFORMIN HCl 1,000 MG Tablet 1000 MG PO (08:05)
[2019-01-08] MEDS: cloNIDine HCl 0.1 MG Tablet 0.2 MG PO (08:06)
[2019-01-08] MEDS: Glimepiride 4 MG Tablet PO (08:07)
[2019-01-08] MEDS: Spironolactone 25 MG Tablet PO (08:14)
--- NOTE | 2019-01-08 11:17 | DCINST_ITS ---
- Discharge Diagnoses Current Active Problems: Current Active and Chronic Problems (Last Updated 01/06/19 @ 18:11 by Josiah Merchant DO) Right sided colitis (Acute) UTI (urinary tract infection) (Acute) Low back pain (Acute) You will use the following diet at home:: Calorie/Carbohydrate Controlled (specify 1200, 1400, etc) - 1800 anita Your food should be the consistency of: Regular Your liquids should be the consistency of: Regular/Thin Discharge Activity: Return to Normal Activity Weight Bearing Status: Full weight bearing Allergies/Adverse Reactions: Allergies suture Allergy (Mild, Verified 01/06/19 09:08) rash/ wound dehisence chromic suture amoxicillin Allergy (Verified 01/06/19 09:08) Unknown azithromycin Allergy (Verified 01/06/19 09:08) Shortness of breath celecoxib [From Celebrex] Allergy (Verified 01/06/19 09:08) Other ciprofloxacin [From Cipro] Allergy (Verified 01/06/19 09:08) Shortness of breath ciprofloxacin HCl [From Cipro] Allergy (Verified 01/06/19 09:08) Shortness of breath cortisone Allergy (Verified 01/06/19 09:08) Swelling doxycycline Allergy (Verified 01/06/19 09:08) Shortness of breath erythromycin base Allergy (Verified 01/06/19 09:08) Unknown fexofenadine [From Ashlee] Allergy (Verified 01/06/19 09:08) Unknown ibuprofen Allergy (Verified 01/06/19 09:08) Shortness of breath Iodinated Contrast- Oral and IV Dye [DYEE] Allergy (Verified 01/06/19 09:08) Shortness of breath iodine Allergy (Verified 01/06/19 09:08) Shortness of breath levofloxacin [From Levaquin] Allergy (Verified 01/06/19 09:08) Shortness of breath lorazepam [From Ativan] Allergy (Verified 01/06/19 09:08) Shortness of breath nitrofurantoin [From Macrobid] Allergy (Verified 01/06/19 09:08) Shortness of breath nitrofurantoin macrocrystalline [From Macrobid] Allergy (Verified 01/06/19 09:08) Shortness of breath Penicillins Allergy (Verified 01/06/19 09:08) Shortness of breath rofecoxib [From Vioxx] Allergy (Verified 01/06/19 09:08) Unknown Sulfa (Sulfonamide Antibiotics) Allergy (Verified 01/06/19 09:08) Shortness of breath sulfamethoxazole [From Bactrim] Allergy (Verified 01/06/19 09:08) Shortness of breath trimethoprim [From Bactrim] Allergy (Verified 01/06/19 09:08) Shortness of breath amlodipine [From Norvasc] Adverse Reaction (Verified 01/06/19 09:08) Upset Stomach cat gut sutures Allergy (Uncoded 01/06/19 09:08) Unknown MISC BP MED Allergy (Uncoded 01/06/19 09:08) Shortness of breath Medications to take at Discharge Glimepiride [Amaryl] 4 mg PO DINNER 09/10/13 Metformin HCl [Glucophage] 1,000 mg PO BID 01/23/16 Albuterol IH (ProAir) [Proair Hfa] 2 puff INHALATION PRN PRN 07/04/16 clonidine HCl 0.1 mg tablet 0.2 mg PO DAILY tab 11/20/17 Diazepam [Valium] 2.5 mg PO PRN PRN 08/15/18 Clonidine HCl [Catapres] 0.1 mg PO LUNCH 01/06/19 Clonidine HCl [Catapres] 0.2 mg PO DINNER 01/06/19 Clonidine HCl [Catapres] 0.2 mg PO QHS 01/06/19 Cefdinir [Omnicef [equiv]] 600 mg PO DAILY #20 capsule 01/08/19 Glimepiride [Amaryl] 6 mg PO DAILY@0800 #1 tablet 01/08/19 Metronidazole [Flagyl] 500 mg PO TID #30 tablet 01/08/19 Spironolactone [Aldactone] 25 mg PO DAILY #30 tablet 01/08/19 The following prescriptions were given: Cefdinir [Omnicef [equiv]] 600 mg PO DAILY #20 capsule Glimepiride [Amaryl] 6 mg PO DAILY@0800 #1 tablet Spironolactone [Aldactone] 25 mg PO DAILY #30 tablet Metronidazole [Flagyl] 500 mg PO TID #30 tablet Primary Care Physician: Josiah Smith MD [Primary Care Provider] - Please follow up with your Primary Care Physician in: this week Test Results: Test results from this visit will be discussed in further detail at your follow- up appointment, if applicable.
[2019-01-08] MEDS: cloNIDine HCl 0.1 MG Tablet PO (11:35)
[2019-01-08 11:40] LABS: Bedside Glucose 175 mg/dL (70-110)
--- NOTE | 2019-01-09 17:10 | DS.PCM_ITS ---
Discharge Date and Diagnosis Date of Admission: 01/06/19 Date of Discharge: 01/08/19 - Primary Discharge Diagnosis #1 acute pyelonephritis-believed to be secondary to gram-negative bacteria #2 acute colitis-etiology unclear #3 uncontrolled hypertension #4 cirrhosis secondary to fatty liver #5 chronic anemia-believed to be secondary to GI blood loss from unknown site #6 esophageal varices #7 type 2 diabetes #8 Acute hypoxia secondary to pulmonary hypertension #9 elevated lactic acid-secondary to hypoxia #10 pulmonary hypertension - Secondary Discharge Diagnosis Chronic Problems (Last Updated 01/06/19 @ 18:11 by Josiah Merchant DO) History of thoracoabdominal aortic aneurysm (TAAA) (Chronic) Hypertension (Chronic) Diabetes mellitus (Chronic) COPD (chronic obstructive pulmonary disease) (Chronic) Asthma (Chronic) GERD (gastroesophageal reflux disease) (Chronic) Anemia (Chronic) Hospital Course and Treatment Operations: None Procedures: None Summary of Care Provided: The patient is a 68 year old F was seen in the emergency room with a chief complaint of abrupt back pain over the lower portion of her back bilaterally that awoken her from sleep at approximately 5 AM the day she was seen in the emergency room. Workup in the emergency room included a CT of the abdomen and pelvis which showed evidence of inflammatory changes in the right colon consistent with colitis. Labs revealed a normal white blood cell count, hemoglobin was slightly low at 11.7, pulse ox was low on room air so an arterial blood gas was obtained which showed a PO2 of 83 and a PCO2 of 49. Patient stated that she had home oxygen but did not wear it continuously. Chemistry profile was remarkable for glucose of 214, lactic acid was elevated at 2.6, u rinalysis indicated a urinary tract infection. Chest x-ray was unremarkable. Patient was felt to have pyelonephritis and colitis, she was admitted to PCU and placed on IV antibiotics and her blood sugars were monitored. Patient's blood pressure was consistently elevated but she refused to allow the administration of IV hydralazine for her blood pressure. I was able to convince the patient to take a diuretic. Patient's back pain resolved and patient's pulse ox on room air on the day of her discharge was 92%. On 01/08/19, patient was seen and examined: On examination she appeared in good health and spirits. Vital signs as documented. Skin warm and dry and without overt rashes. Neck without JVD. Lungs clear. Heart exam notable for regular rhythm, normal sounds and absence of murmurs, rubs or gallops. Abdomen unremarkable and without evidence of organomegaly, masses, or abdominal aortic enlargement. Extremities nonedematous. Neuro: Cranial nerves II through XII are grossly intact, no focal motor deficits were noted, sensation to light touch and pinprick is intact. Psych: Patient is alert and oriented x3, she does not appear anxious or depressed On 01/08/19, patient was discharged home in stable condition - Physical Exam Vital Signs Temp Pulse Resp BP Pulse Ox 98.3 F 78 18 168/77 H 92 01/08/19 12:48 01/08/19 12:48 01/08/19 12:48 01/08/19 12:48 01/08/19 12:48 Oxygen Flow Rate (L/min) 1 Oxygen Delivery Method Room Air Weight: 80.3 kg Body Mass Index (BMI) 34.5 Finger Stick Blood Glucose 218 Intake and Output for Last 24 Hours 01/07/19 01/08/19 01/09/19 23:59 23:59 23:59 Intake Total 3308 / 3308 921 / 921 Output Total 900 / 900 900 / 900 Balance 2408 / 2408 Microbiology Past 72 Hours 01/06/19 11:25 Blood Culture - Preliminary Blood Culture (Wb) - Anticubital Left No growth in 48 hours. 01/06/19 11:15 Blood Culture - Preliminary Blood Culture (Wb) - No Site/Description Given No growth in 48 hours. 01/06/19 09:35 Urine Culture - Final Urine, Clean Catch Mixed Gram Pos & Gram Neg Org Discharge Activity: Return to Normal Activity Weight Bearing Status: Full weight bearing Home Medications: Medications to take at Discharge Glimepiride [Amaryl] 4 mg PO DINNER 09/10/13 Metformin HCl [Glucophage] 1,000 mg PO BID 01/23/16 Albuterol IH (ProAir) [Proair Hfa] 2 puff INHALATION PRN PRN 07/04/16 clonidine HCl 0.1 mg tablet 0.2 mg PO DAILY tab 11/20/17 Diazepam [Valium] 2.5 mg PO PRN PRN 08/15/18 Clonidine HCl [Catapres] 0.1 mg PO LUNCH 01/06/19 Clonidine HCl [Catapres] 0.2 mg PO DINNER 01/06/19 Clonidine HCl [Catapres] 0.2 mg PO QHS 01/06/19 Cefdinir [Omnicef [equiv]] 600 mg PO DAILY #20 capsule 01/08/19 Glimepiride [Amaryl] 6 mg PO DAILY@0800 #1 tablet 01/08/19 Metronidazole [Flagyl] 500 mg PO TID #30 tablet 01/08/19 Spironolactone [Aldactone] 25 mg PO DAILY #30 tablet 01/08/19 Following Prescrptions Were Given to Patient: Cefdinir [Omnicef [equiv]] 600 mg PO DAILY #20 capsule Glimepiride [Amaryl] 6 mg PO DAILY@0800 #1 tablet Spironolactone [Aldactone] 25 mg PO DAILY #30 tablet Metronidazole [Flagyl] 500 mg PO TID #30 tablet Primary Care Physician: Josiah Smith MD [Primary Care Provider] - Please follow up with your Primary Care Physician in: this week Disposition: Home Minutes spent on discharge:: 32 Patient Condition:: Stable Medical Necessity - Tobacco Use Smoking Status: Never smoker Tobacco Use: Non-smoker Meaningful Use Info Meaningful Use Diagnoses (Choose all that apply): None applicable Code Visit Inpatient E&M: 30276 Disch Hosp
--- NOTE | 2019-01-10 14:36 | CASEMGMT ---
RN CM Discharge F/U Phone Call LACE: 11 Strata: 3 Discharge date: 01/08/19 Call date: 01/10/19 Call time: [id number] Attempted to reach pt without success at this time, message left for pt to call this RN CM back when able. SStaten RN CM Admission dx: Pyelonephritis
== END 2019-01-08 12:54 | disposition home or self-care (01) | DRG 690 ==
LOC: ED 11:48 → PCU 12:58
PROVIDERS: Admitting Provider Internal Medicine; Emergency Provider Emergency Medicine; Family Provider Family Medicine; PCP Family Medicine; Visit Provider Internal Medicine
DX: N10 Acute pyelonephritis (principal); J96.11 Chronic respiratory failure with hypoxia; I85.10 Secondary esophageal varices without bleeding; K74.60 Unspecified cirrhosis of liver; K76.0 Fatty (change of) liver, not elsewhere classified; Z99.81 Dependence on supplemental oxygen; D50.0 Iron deficiency anemia secondary to blood loss (chronic); K52.9 Noninfective gastroenteritis and colitis, unspecified; I10 Essential (primary) hypertension; I27.20 Pulmonary hypertension, unspecified; E11.9 Type 2 diabetes mellitus without complications; J44.9 Chronic obstructive pulmonary disease, unspecified; K21.9 Gastro-esophageal reflux disease without esophagitis; Z79.84 Long term (current) use of oral hypoglycemic drugs
CPT/HCPCS: 36415; 36600; 71045; 74176; 80048; 81001; 82803; 82962; 83605; 84484; 85025; 85610; 85730; 87040; 87086; 87088; 93005; 93306; 94640; 94667; 94668; 97802; 99251; 99285; J7030; J7040; A4216; G0463; J0696; J2405

== ENCOUNTER 2019-07-19 19:00 | Emergency (ER) | payer MEDICARE, SELFPAY ==
[2019-01-06 13:21] VITALS: BMI 34.5
[2019-07-19 19:01] VITALS: BP 238/83; PULSE 98; RESP 20; TEMP 37.6; O2SAT 94; BMI 35.5
[2019-07-19 19:06] VITALS: BP 219/66; PULSE 83; RESP 23; TEMP 37.7; O2SAT 93
--- NOTE | 2019-07-19 19:32 | EKG12_ITS ---
Test Reason : ABD PAIN Blood Pressure : / mmHG Vent. Rate : 091 BPM Atrial Rate : 091 BPM P-R Int : 134 ms QRS Dur : 140 ms QT Int : 400 ms P-R-T Axes : 028 -81 053 degrees QTc Int : 492 ms Normal sinus rhythm Right bundle branch block Left anterior fascicular block Bifascicular block Moderate voltage criteria for LVH, may be normal variant Abnormal ECG Confirmed by HERB HOOD ([id number]), map editor LISETTE VERA ([id number]) on 07/25/2019 12:16:05 PM Referred By: BACILIO Confirmed By:HERB HOOD
--- NOTE | 2019-07-19 19:32 | CT_ITS ---
STUDY: CT ABDOMEN AND PELVIS WITHOUT CONTRAST REASON FOR EXAM: Female, 69 years old. Bilateral flank pain RADIATION DOSAGE (If Supplied By Facility): CTDIvol = ( 21.11 ) mGy, DLP = ( 1007.35 ) mGycm TECHNIQUE: Transaxial images were obtained from the dome of the diaphragm to the symphysis pubis without oral contrast, and without intravenous contrast. Sagittal and coronal images were reconstructed. Individualized dose optimization techniques were used for this CT. COMPARISON: 01/06/2019 FINDINGS: The visualized lung bases are unremarkable. The visualized portions of the heart are within normal limits. Paraesophageal varices. Cirrhosis. There are surgical clips in the gallbladder fossa consistent with a prior cholecystectomy. Splenomegaly, with spleen length of 14 cm. Perisplenic varices. Mild ascites. Normal pancreas. Normal bilateral adrenal glands. Normal right kidney. Normal left kidney. Normal visualized stomach. Normal small intestine. Normal colon. The appendix is visualized and appears normal. Stable focal chronic abdominal aortic dissection without evidence of acute complication. Normal inferior vena cava. Normal retroperitoneum. Normal urinary bladder. Progressing focal fluid in the anterior abdominal wall, now measuring 3.0 x 1.7 cm. Fat and fluid within an umbilical hernia. Normal osseous structures. CT/Abdomen/Pelvis without Cont IMPRESSION: No evidence of acute intestinal pathology or acute obstructive uropathy. Cirrhosis, splenomegaly, and multiple varices. Mild ascites. Progressing fluid in the anterior abdominal wall. Electronically Signed: Ever Ramirez MD at 21:04 EDT Tel , Service support ,
--- NOTE | 2019-07-19 19:33 | ED.DCSUM_ITS ---
History of Present Illness Chief Complaint: Abd Pain Detail of Chief Complaint: Back and abdominal pain Informant: Patient Onset: Weeks Context: Gradual Onset Timing: Waxes and wanes Current Severity: Moderate Maximum Severity: Moderate Narrative: Patient presents with back pain that is been ongoing for the past couple of weeks. She states that wraps around to her lower abdomen. She has noted some dysuria and some frequency. She is a history of pyelonephritis and thought this may feel similar. She also thinks she has a history of diverticulitis as well. She denies vomiting. She states a couple days ago she had diarrhea but that is resolved. Patient does have significantly elevated blood pressure. She has an allergy to many blood pressure medications and states she can only take clonidine. Her next dose is due 1/2-hour after my initial evaluation. - Past Medical History (1) Asthma Status: Chronic (2) COPD (chronic obstructive pulmonary disease) Status: Chronic (3) Diabetes mellitus Status: Chronic (4) GERD (gastroesophageal reflux disease) Status: Chronic (5) Hypertension Status: Chronic Past Medical History - Allergies and Home Meds Allergies/Adverse Reactions: Allergies suture Allergy (Mild, Verified 07/19/19 19:07) rash/ wound dehisence chromic suture amoxicillin Allergy (Verified 07/19/19 19:07) Unknown azithromycin Allergy (Verified 07/19/19 19:07) Shortness of breath celecoxib [From Celebrex] Allergy (Verified 07/19/19 19:07) Other ciprofloxacin [From Cipro] Allergy (Verified 07/19/19 19:07) Shortness of breath ciprofloxacin HCl [From Cipro] Allergy (Verified 07/19/19 19:07) Shortness of breath cortisone Allergy (Verified 07/19/19 19:07) Swelling doxycycline Allergy (Verified 07/19/19 19:07) Shortness of breath erythromycin base Allergy (Verified 07/19/19 19:07) Unknown fexofenadine [From Ashlee] Allergy (Verified 07/19/19 19:07) Unknown ibuprofen Allergy (Verified 07/19/19 19:07) Shortness of breath Iodinated Contrast Media [DYEE] Allergy (Verified 07/19/19 19:07) Shortness of breath iodine Allergy (Verified 07/19/19 19:07) Shortness of breath levofloxacin [From Levaquin] Allergy (Verified 07/19/19 19:07) Shortness of breath lorazepam [From Ativan] Allergy (Verified 07/19/19 19:07) Shortness of breath nitrofurantoin [From Macrobid] Allergy (Verified 07/19/19 19:07) Shortness of breath nitrofurantoin macrocrystalline [From Macrobid] Allergy (Verified 07/19/19 19:0 7) Shortness of breath Penicillins Allergy (Verified 07/19/19 19:07) Shortness of breath rofecoxib [From Vioxx] Allergy (Verified 07/19/19 19:07) Unknown Sulfa (Sulfonamide Antibiotics) Allergy (Verified 07/19/19 19:07) Shortness of breath sulfamethoxazole [From Bactrim] Allergy (Verified 07/19/19 19:07) Shortness of breath trimethoprim [From Bactrim] Allergy (Verified 07/19/19 19:07) Shortness of breath amlodipine [From Norvasc] Adverse Reaction (Verified 07/19/19 19:07) Upset Stomach cat gut sutures Allergy (Uncoded 07/19/19 19:07) Unknown MISC BP MED Allergy (Uncoded 07/19/19 19:07) Shortness of breath Primary Care Physician: Josiah Smith MD [Primary Care Provider] - As soon as possible Prior records reviewed: Yes Past Medical History: - - Reviewed Surgical History: cholecystectomy, - - Carotid endarterectomy, oophorectomy Lives: Spouse/ Significant Other Smoking Status: Former smoker - Family History Maternal Family History: Family History (Last Reviewed 12/29/18 @ 13:38 by Debora Ruff) Mother Heart disease Brother Heart disease Family History: Reports: Diabetes, Hypertension Paternal Family History: Family History (Last Reviewed 12/29/18 @ 13:38 by Debora Ruff) Mother Heart disease Brother Heart disease Family History: Reports: Diabetes, Hypertension Review of Systems General: Denies: Fever Eyes: Denies: Visual changes - bilaterally ENT: Denies: Bilateral ear pain Cardiovascular: Denies: Chest pain Respiratory: Denies: Dyspnea, Cough Gastrointestinal: Reports: Abdominal pain, Nausea, Diarrhea. Denies: Vomiting Genitourinary: Reports: Dysuria, Frequency Musculoskeletal: Reports: Back pain Skin: Denies: Rash Neurological: Denies: Headache Endocrine: Denies: Polyuria, Polydipsia Hematologic: Denies: Easy bruising Allergy: Denies: Uticaria Physical Exam Vital Signs/Narrative: Vital Signs Temp Pulse Resp BP Pulse Ox 07/19/19 19:01 99.6 F H 98 20 H 238/83 H 94 Inital Vital Signs reviewed: Yes General: Well nourished, Well developed, No Acute Distress Head: Normocephalic, Atraumatic Eyes: Perrl, EOMI ENT: Moist mucous membranes, No rhinorrhea Neck: Supple, Nontender Cardiovascular: Regular rate, Regular rhythm, No murmurs Respiratory: No distress, CTA bilaterally, Chest nontender Abdomen: Soft, Tender - Tenderness in the epigastrium as well as in the lower abdomen., Hypoactive bowel sounds. Negative for: Guarding, Rebound tenderness Extremities: Nontender Skin: Normal color, No rash Neurological: Alert, Oriented x3 Psychological: Normal affect Diagnostic/Tx/Re-eval Impressions Abdomen/Pelvis CT 07/19/19 19:32 IMPRESSION: No evidence of acute intestinal pathology or acute obstructive uropathy. Cirrhosis, splenomegaly, and multiple varices. Mild ascites. Progressing fluid in the anterior abdominal wall. Electronically Signed: Ever Ramirez MD at 21:04 EDT Tel , Service support , 07/19/19 19:32 Abdomen/Pelvis without Cont [CT] Stat Laboratory Results 07/19/19 07/19/19 07/19/19 19:20 19:25 19:25 WBC 5.0 RBC 4.65 Hgb 11.1 L Hct 36.7 L MCV 78.9 L MCH 23.9 L MCHC 30.2 L RDW Std Deviation 44.2 H RDW Coeff of [place] 15.6 H Plt Count 93 L MPV 11.3 Immature Gran % (Auto) 0.600 Neut % (Auto) 73.7 H Lymph % (Auto) 14.1 L [place] % (Auto) 6.2 Eos % (Auto) 4.6 Baso % (Auto) 0.8 Absolute Neuts (auto) 3.7 Absolute Lymphs (auto) 0.70 L Nucleated RBC % 0 Sodium 139 Potassium 3.9 Chloride 105 Carbon Dioxide 29.0 Anion Gap 5 BUN 11 Creatinine 0.66 Estim Creat Clear Calc 37.06 Est GFR (MDRD) Af Amer 114 Est GFR (MDRD) Non-Af 94 BUN/Creatinine Ratio 16.7 Glucose 155 H Calcium 9.7 Total Bilirubin 0.50 Direct Bilirubin 0.16 AST 36 ALT 42 Alkaline Phosphatase 78 Total Protein 7.5 Albumin 3.2 Globulin 4.3 H Lipase 248 Urine Color Yellow Urine Clarity Sl. Cloudy Urine pH 6.0 Ur Specific [place] 1.015 Urine Protein 100 H Urine Glucose (UA) Normal Urine Ketones Negative Urine Occult Blood 10 H Urine Nitrite Negative Urine Bilirubin Negative Urine Urobilinogen Normal Ur Leukocyte Esterase 25 H Urine RBC 0-5 SEEN Urine WBC 0-5 SEEN Ur Squamous Epith Cells 5-10 SEEN Urine Bacteria 0 SEEN Urine Mucus 0 SEEN POC Glucose 07/19/19 07/19/19 19:35 21:36 WBC RBC Hgb Hct MCV MCH MCHC RDW Std Deviation RDW Coeff of [place] Plt Count MPV Immature Gran % (Auto) Neut % (Auto) Lymph % (Auto) [place] % (Auto) Eos % (Auto) Baso % (Auto) Absolute Neuts (auto) Absolute Lymphs (auto) Nucleated RBC % Sodium Potassium Chloride Carbon Dioxide Anion Gap BUN Creatinine Estim Creat Clear Calc Est GFR (MDRD) Af Amer Est GFR (MDRD) Non-Af BUN/Creatinine Ratio Glucose Calcium Total Bilirubin Direct Bilirubin AST ALT Alkaline Phosphatase Total Protein Albumin Globulin Lipase Urine Color Urine Clarity Urine pH Ur Specific [place] Urine Protein Urine Glucose (UA) Urine Ketones Urine Occult Blood Urine Nitrite Urine Bilirubin Urine Urobilinogen Ur Leukocyte Esterase Urine RBC Urine WBC Ur Squamous Epith Cells Urine Bacteria Urine Mucus POC Glucose 145 H 115 H - EKG Initial EKG Interpretation: Sinus Rhythm - Sinus at 91 with a bifascicular block. This is unchanged when compared to prior study. - Medical Decision Making Patient declined anything for pain while here. Patient's blood pressure remains elevated with systolic pressure over 200. On review of multiple prior visits her systolic blood pressure has run anywhere between 160 and 240. She will continue her home medication regimen. I advised her at this time do not see an acute intra-abdominal cause for her symptoms. She does describe back pain that wraps to the lower abdomen as may be muscular skeletal back pain. She declines anything strong for pain stating that she will just take Tylenol. I encouraged her to eat frequent small meals with bland food. She will return for worsening symptoms, vomiting, fever, or if any other concerns arise. Patient and at bedside are both in agreement with the plan. ED Disposition - Plan for ED Patient: Disposition: Home or Assisted Living Diagnosis: Abdominal pain Instructions: ABDOMINAL PAIN, Unknown Cause, (Female) Referrals: Josiah Smith MD [Primary Care Provider] - As soon as possible
[2019-07-19 19:40] LABS: Bedside Glucose 145 mg/dL (70-110)
[2019-07-19] MEDS: 0.9% Normal Saline 1,000 ML 15 ML IV (19:45)
[2019-07-19 19:55] LABS: Bacteria 0 SEEN /hpf (None Seen); Mucous, Urine 0 SEEN /hpf (<or=2+)
[2019-07-19 20:01] LABS: Color, Urine Yellow (Yellow); Glucose, Dipstick Normal (Normal); Ketone-Dipstick Negative (Negative); Leukocyte Esterase-Dipstick 25 /ul (Negative); Nitrite-Dipstick Negative (Negative); Occult Blood-Urine 10 /ul (Negative); Protein-Dipstick 100 mg/dl (Negative); Specific Gravity, Urine 1.015 (1.002-1.030); Urine Bilirubin Dipstick Negative (Negative); Urine Clarity Sl. Cloudy (Clear); Urine Urobilinogen Normal (Normal)
[2019-07-19 20:04] LABS: Absolute Neutrophil Count 3.7 X10^3/uL (2.0-7.7); Basophil# 0.04 X10^3/uL; Basophil% 0.8 % (0-1); Eosinophil# 0.23 X10^3/uL; Eosinophils% 4.6 % (0-5); Hematocrit 36.7 % (37-47); Hemoglobin 11.1 g/dL (12.0-15.0); Lymphocyte % 14.1 % (19-41); Mean Corp Hgb Conc 30.2 g/dL (32-36); Mean Corpuscular Hgb 23.9 pg (27.0-32.0); Mean Corpuscular Volume 78.9 fL (81-99); Mean Platelet Vol. 11.3 fl (6.2-12.0); Monocyte# 0.31 X10^3/uL; Monocyte% 6.2 % (0-10); NRBC Flagged by Analyzer 0 % (0-5); Neutrophil # 3.66 X10^3/uL (2.7-7.7); Neutrophil % 73.7 % (47-70); Platelet Count 93 K/mm3 (150-450); RBC Distribution Width CV 15.6 % (11.6-14.6); RBC Distribution Width SD 44.2 fl (35.1-43.9); Red Blood Count 4.65 M/mm3 (4.2-5.4)
[2019-07-19 20:06] VITALS: BP 219/68; PULSE 82; RESP 20; TEMP 37.6; O2SAT 95
[2019-07-19 20:23] LABS: AST(SGOT) 36 U/L (15-37); Alanine Aminotransfer ALT/SGPT 42 U/L (13-56); Albumin, Serum 3.2 g/dL (3.2-5.0); Alkaline Phosphatase 78 U/L (45-117); Anion Gap 5 (5-15); BUN 11 mg/dL (7-18); BUN/Creat Ratio 16.7 RATIO (10-20); Bilirubin, Direct 0.16 mg/dL (0.00-0.30); Calcium,Total 9.7 mg/dL (8.5-10.1); Chloride 105 mmol/L (98-107); Creatinine, Serum 0.66 mg/dL (0.55-1.02); EST Glomerular Filtration Rate 94 mL/min (>60); Est Glom Filt Rate - Afr Amer 114 mL/min (>60); Estimated Creatinine Clearance 37.06 ml/min; Globulin 4.3 g/dL (2.2-4.2); Glucose 155 mg/dL (74-106); Lipase 248 U/L (73-393); Potassium 3.9 mmol/L (3.5-5.1); Protein, Total 7.5 g/dL (6.4-8.2); Sodium Level 139 mmol/L (136-145)
[2019-07-19 20:32] LABS: Red Blood Cells-Urine 0-5 SEEN /hpf (0-5); Squamous Epithelial Cells - UA 5-10 SEEN /hpf (5-10); White Blood Cells 0-5 SEEN /hpf (0-5)
[2019-07-19 21:00] VITALS: BP 208/65; PULSE 84; RESP 19; TEMP 37.5; O2SAT 93
[2019-07-19 21:41] LABS: Bedside Glucose 115 mg/dL (70-110)
[2019-07-19 22:10] VITALS: BP 165/77; PULSE 82; RESP 18; TEMP 37.2; O2SAT 94
== END 2019-07-19 22:12 | disposition home or self-care (01) ==
PROVIDERS: Emergency Provider Emergency Medicine; Family Provider Family Medicine; PCP Family Medicine
DX: R10.9 Unspecified abdominal pain (principal); M54.9 Dorsalgia, unspecified; E11.9 Type 2 diabetes mellitus without complications; I10 Essential (primary) hypertension; J44.9 Chronic obstructive pulmonary disease, unspecified; K21.9 Gastro-esophageal reflux disease without esophagitis; I45.2 Bifascicular block; K74.60 Unspecified cirrhosis of liver; R16.1 Splenomegaly, not elsewhere classified; R18.8 Other ascites; Z82.49 Family history of ischemic heart disease and other diseases of the circulatory system; Z87.891 Personal history of nicotine dependence; Z88.0 Allergy status to penicillin; Z88.1 Allergy status to other antibiotic agents; Z88.2 Allergy status to sulfonamides; Z88.6 Allergy status to analgesic agent; Z88.8 Allergy status to other drugs, medicaments and biological substances; Z90.49 Acquired absence of other specified parts of digestive tract
CPT/HCPCS: 74176; 80048; 80076; 81001; 82962; 83690; 85025; 93005; 99285; J7030; A4216

== ENCOUNTER 2021-01-30 09:56 | Emergency (ER) | payer MEDICARE, MEDICAID, SELFPAY ==
[2021-01-30 09:57] VITALS: BP 247/76; PULSE 108; RESP 24; TEMP 36.3; O2SAT 96; BMI 35.0
--- NOTE | 2021-01-30 10:15 | ED.VIS.GEN ---
History of Present Illness Chief Complaint: Hypertension Informant: Patient Narrative: 70-year-old female sent from the preanesthesia testing area at the [facility] in [place] for the evaluation of hypertension and shortness of breath. The nurse practitioner's tester food products told me that her blood pressure was significantly elevated and that she was wheezing and short of breath. She was being evaluated for umbilical hernia repair. The patient tells me that she has a long history of difficult to manage hypertension. Currently she is on Lasix 20 mg once daily and clonidine 0.2 mg in a.m. 0.1 mg at noon 0.2 mg in the evening and 0.2 mg at bedtime. She tells me that she has been through numerous blood pressure medications but could not take them due to side effects/reactions. She states that if she goes to the emergency room or to an urgent care she typically has significantly elevated blood pressure. She tells me that she can always tell if her blood pressure is up and she tells me that the current time it is back down. (She is to 47 systolic on her monitor). She tells me that her primary care physician's office she is typically around 158. She took 1 clonidine this morning and took another 1 prior to arrival. She states that she got short of breath when they told her that her EKG showed that she was having blockages. By this I am assuming that they mean that she was having a bifascicular block which is chronic for her. Patient states she would like to be checked for UTI. - Past Medical History (1) Anemia Status: Chronic (2) Asthma Status: Chronic (3) COPD (chronic obstructive pulmonary disease) Status: Chronic (4) Diabetes mellitus Status: Chronic (5) GERD (gastroesophageal reflux disease) Status: Chronic (6) History of thoracoabdominal aortic aneurysm (TAAA) Status: Chronic (7) Hypertension Status: Chronic Past Medical History - Allergies and Home Meds Allergies/Adverse Reactions: Allergies suture Allergy (Mild, Verified 01/30/21 10:02) rash/ wound dehisence chromic suture amoxicillin Allergy (Verified 01/30/21 10:02) Unknown azithromycin Allergy (Verified 01/30/21 10:02) Shortness of breath celecoxib [From Celebrex] Allergy (Verified 01/30/21 10:02) Other ciprofloxacin [From Cipro] Allergy (Verified 01/30/21 10:02) Shortness of breath ciprofloxacin HCl [From Cipro] Allergy (Verified 01/30/21 10:02) Shortness of breath cortisone Allergy (Verified 01/30/21 10:02) Swelling doxycycline Allergy (Verified 01/30/21 10:02) Shortness of breath erythromycin base Allergy (Verified 01/30/21 10:02) Unknown fexofenadine [From Ashlee] Allergy (Verified 01/30/21 10:02) Unknown ibuprofen Allergy (Verified 01/30/21 10:02) Shortness of breath Iodinated Contrast Media [DYEE] Allergy (Verified 01/30/21 10:02) Shortness of breath iodine Allergy (Verified 01/30/21 10:02) Shortness of breath levofloxacin [From Levaquin] Allergy (Verified 01/30/21 10:02) Shortness of breath lorazepam [From Ativan] Allergy (Verified 01/30/21 10:02) Shortness of breath nitrofurantoin [From Macrobid] Allergy (Verified 01/30/21 10:02) Shortness of breath nitrofurantoin macrocrystalline [From Macrobid] Allergy (Verified 01/30/21 10:02) Shortness of breath Penicillins Allergy (Verified 01/30/21 10:02) Shortness of breath rofecoxib [From Vioxx] Allergy (Verified 01/30/21 10:02) Unknown Sulfa (Sulfonamide Antibiotics) Allergy (Verified 01/30/21 10:02) Shortness of breath sulfamethoxazole [From Bactrim] Allergy (Verified 01/30/21 10:02) Shortness of breath trimethoprim [From Bactrim] Allergy (Verified 01/30/21 10:02) Shortness of breath amlodipine [From Norvasc] Adverse Reaction (Verified 01/30/21 10:02) Upset Stomach cat gut sutures Allergy (Uncoded 01/30/21 10:02) Unknown MISC BP MED Allergy (Uncoded 01/30/21 10:02) Shortness of breath Primary Care Physician: Josiah Smith MD [Primary Care Provider] - Surgical History: cholecystectomy, - - Carotid endarterectomy, oophorectomy Smoking Status: Former smoker Drugs: None - Family History Maternal Family History: Family History (Last Reviewed 12/29/18 @ 13:38 by Debora Ruff) Mother Heart disease Brother Heart disease Family History: Reports: Diabetes, Hypertension Paternal Family History: Family History (Last Reviewed 12/29/18 @ 13:38 by Debora Ruff) Mother Heart disease Brother Heart disease Family History: Reports: Diabetes, Hypertension Review of Systems General: Denies: Chills, Fever, Sweats Eyes: Denies: Visual changes - bilaterally, Diplopia ENT: Denies: Rhinorrhea, Sore throat Cardiovascular: Denies: Chest pain, Palpitations Respiratory: Reports: Dyspnea. Denies: Cough, Dyspnea on exertion Gastrointestinal: Denies: Abdominal pain, Nausea, Vomiting, Diarrhea, Melena, Hematochezia Genitourinary: Denies: Dysuria, Hematuria, Frequency Musculoskeletal: Denies: Back pain, Extremity Pain Skin: Denies: Rash, Wounds Neurological: Denies: Headache, Weakness, Numbness Physical Exam Vital Signs/Narrative: Vital Signs Temp Pulse Resp BP Pulse Ox 01/30/21 09:57 97.4 F L 108 H 24 H 247/76 H 96 Inital Vital Signs reviewed: Yes General: Well nourished, Well developed, Obese, No Acute Distress Head: Normocephalic, Atraumatic Eyes: Perrl, EOMI ENT: Moist mucous membranes, No rhinorrhea Neck: Supple, Nontender Cardiovascular: Regular rate, Regular rhythm, No murmurs Respiratory: No distress, CTA bilaterally, Chest nontender Abdomen: Soft, Nontender, Nondistended, Normal bowel sounds, Umbilical hernia Back: Nontender, Normal Inspection Extremities: Nontender, No edema Skin: Normal color, No rash Neurological: Alert, Oriented x3, Cranial nerves II-XII grossly intact, Normal Strength, Normal Sensation Psychological: Normal affect, Normal Mood Diagnostic/Tx/Re-eval Clinical Impression(s) from Imaging Studies Chest X-Ray 01/30/21 11:25 IMPRESSION: Mild degree of cardiomegaly. Electronically Signed: Roberto Amor MD at 11:58 EDT , Service support , Laboratory Last Values WBC 4.5 K/mm3 (4.4-11.0) 01/30/21 11:10 RBC 4.61 M/mm3 (4.2-5.4) 01/30/21 11:10 Hgb 11.2 g/dL (12.0-15.0) L 01/30/21 11:10 Hct 38.0 % (37-47) 01/30/21 11:10 MCV 82.4 fL (81-99) 01/30/21 11:10 MCH 24.3 pg (27.0-32.0) L 01/30/21 11:10 MCHC 29.5 g/dL (32-36) L 01/30/21 11:10 RDW Std Deviation 47.8 fl (35.1-43.9) H 01/30/21 11:10 RDW Coeff of Jordan 16.1 % (11.6-14.6) H 01/30/21 11:10 Plt Count 102 K/mm3 (150-450) L 01/30/21 11:10 MPV 10.5 fl (6.2-12.0) 01/30/21 11:10 Immature Gran % (Auto) 0.200 % (0.0-0.9) 01/30/21 11:10 Neut % (Auto) 80.6 % (47-70) H 01/30/21 11:10 Lymph % (Auto) 8.6 % (19-41) L 01/30/21 11:10 [place] % (Auto) 6.6 % (0-10) 01/30/21 11:10 Eos % (Auto) 3.3 % (0-5) 01/30/21 11:10 Baso % (Auto) 0.7 % (0-1) 01/30/21 11:10 Absolute Neuts (auto) 3.6 X10^3/uL (2.0-7.7) 01/30/21 11:10 Absolute Lymphs (auto) 0.39 X10^3/uL (0.83-4.51) L 01/30/21 11:10 Nucleated RBC % 0 % (0-5) 01/30/21 11:10 Differential Comment SCANNED 01/30/21 11:10 Sodium 139 mmol/L (136-145) 01/30/21 11:10 Potassium 4.1 mmol/L (3.5-5.1) 01/30/21 11:10 Chloride 106 mmol/L (98-107) 01/30/21 11:10 Carbon Dioxide 30.0 mmol/L (21.0-32.0) 01/30/21 11:10 Anion Gap 3 (5-15) L 01/30/21 11:10 BUN 8 mg/dL (7-18) 01/30/21 11:10 Creatinine 0.63 mg/dL (0.55-1.02) 01/30/21 11:10 Estim Creat Clear Calc 36.53 ml/min 01/30/21 11:10 Est GFR (MDRD) Af Amer 120 mL/min (>60) 01/30/21 11:10 Est GFR (MDRD) Non-Af 99 mL/min (>60) 01/30/21 11:10 BUN/Creatinine Ratio 12.8 RATIO (10-20) 01/30/21 11:10 Glucose 164 mg/dL (74-106) H 01/30/21 11:10 Calcium 9.7 mg/dL (8.5-10.1) 01/30/21 11:10 Total Bilirubin 0.50 mg/dL (0.20-1.00) 01/30/21 11:10 AST 28 U/L (15-37) 01/30/21 11:10 ALT 27 U/L (13-56) 01/30/21 11:10 Alkaline Phosphatase 78 U/L (45-117) 01/30/21 11:10 Troponin I < 0.015 ng/mL (<0.045) 01/30/21 11:10 Total Protein 7.4 g/dL (6.4-8.2) 01/30/21 11:10 Albumin 2.9 g/dL (3.2-5.0) L 01/30/21 11:10 Globulin 4.5 g/dL (2.2-4.2) H 01/30/21 11:10 Albumin/Globulin Ratio 0.6 RATIO (0.9-2.4) L 01/30/21 11:10 Urine Color Yellow (Yellow) 01/30/21 11:17 Urine Clarity Sl. Cloudy (Clear) 01/30/21 11:17 Urine pH 7.0 (5.0 - 8.0) 01/30/21 11:17 Ur Specific [place] 1.010 (1.002-1.030) 01/30/21 11:17 Urine Protein 100 mg/dl (Negative) H 01/30/21 11:17 Urine Glucose (UA) 50 mg/dl (Normal) H 01/30/21 11:17 Urine Ketones Negative mg/dl (Negative) 01/30/21 11:17 Urine Occult Blood 10 /ul (Negative) H 01/30/21 11:17 Urine Nitrite Negative (Negative) 01/30/21 11:17 Urine Bilirubin Negative mg/dL (Negative) 01/30/21 11:17 Urine Urobilinogen Normal mg/dl (Normal) 01/30/21 11:17 Ur Leukocyte Esterase Negative /ul (Negative) 01/30/21 11:17 Urine RBC 0-5 SEEN /hpf (0-5) 01/30/21 11:17 Urine WBC 0 SEEN /hpf (0-5) 01/30/21 11:17 Ur Squamous Epith Cells 0 SEEN /hpf (5-10) 01/30/21 11:17 Urine Bacteria 0 SEEN /hpf (None Seen) 01/30/21 11:17 Urine Mucus 0 SEEN /hpf (<or=2+) 01/30/21 11:17 - EKG Initial EKG Interpretation: Sinus Tachycardia - EKG demonstrates a sinus tachycardia at a rate of 108 with a right bundle branch block and left anterior fascicular block. - Medical Decision Making Patient's blood pressures come down. Currently 178/82. She is asymptomatic. Her EKG is unchanged from prior. Her blood work is negative. Chest x-ray negative. I think the patient can be discharged home to follow-up with her doctors. I do not see a need to admit her at this time. ED Disposition - Plan for ED Patient: Disposition: Home or Assisted Living Diagnosis: Hypertensive urgency Instructions: ED High Blood Pressure ... Referrals: Josiah Smith MD [Primary Care Provider] - As soon as possible
--- NOTE | 2021-01-30 10:20 | EKG12_ITS ---
Test Reason : HYPERTENSION Blood Pressure : / mmHG Vent. Rate : 108 BPM Atrial Rate : 108 BPM P-R Int : 152 ms QRS Dur : 130 ms QT Int : 364 ms P-R-T Axes : 035 -76 050 degrees QTc Int : 487 ms Sinus tachycardia Right bundle branch block Left anterior fascicular block Bifascicular block Abnormal ECG Confirmed by FELICIANO ROWELL, DANITA ([id number]), food expeditor EDDIE JEAN ([id number]) on 02/01/2021 11:30:05 AM Referred By: Confirmed By:DANITA WIGGINS MD
[2021-01-30 11:09] VITALS: BP 189/76; PULSE 96; RESP 19; O2SAT 94
[2021-01-30 11:22] LABS: Bacteria 0 SEEN /hpf (None Seen); Mucous, Urine 0 SEEN /hpf (<or=2+); Squamous Epithelial Cells - UA 0 SEEN /hpf (5-10); White Blood Cells 0 SEEN /hpf (0-5)
[2021-01-30 11:24] LABS: Color, Urine Yellow (Yellow); Glucose, Dipstick 50 mg/dl (Normal); Ketone-Dipstick Negative (Negative); Leukocyte Esterase-Dipstick Negative /ul (Negative); Nitrite-Dipstick Negative (Negative); Occult Blood-Urine 10 /ul (Negative); Protein-Dipstick 100 mg/dl (Negative); Urine Bilirubin Dipstick Negative (Negative); Urine Clarity Sl. Cloudy (Clear); Urine Urobilinogen Normal (Normal)
--- NOTE | 2021-01-30 11:25 | RAD_ITS ---
STUDY: X-RAY CHEST REASON FOR EXAM: Female, 70 years old. Hypertensive urgency known aortic aneurysm TECHNIQUE: Single AP portable view of the chest. COMPARISON: Comparison is made with prior study dated 01/06/2019. FINDINGS: EKG electrodes are seen. The lungs are clear and expanded. There is no demonstrated pleural abnormality. There is mild cardiac enlargement. Normal mediastinum and ivan. Normal visualized pulmonary arteries. Normal visualized aortic arch and descending thoracic aorta. There is a levoscoliosis of the thoracic spine. Normal visualized ribs, clavicles, and shoulders. There is no demonstrated abnormality of the visualized soft tissue structures of the upper abdomen. RAD/Chest 1 View (Portable) IMPRESSION: Mild degree of cardiomegaly. Electronically Signed: Roberto Amor MD at 11:58 EDT , Service support ,
[2021-01-30 11:26] LABS: Absolute Lymphocyte Count 0.39 X10^3/uL (0.83-4.51); Absolute Neutrophil Count 3.6 X10^3/uL (2.0-7.7); Basophil# 0.03 X10^3/uL; Basophil% 0.7 % (0-1); Eosinophil# 0.15 X10^3/uL; Eosinophils% 3.3 % (0-5); Hemoglobin 11.2 g/dL (12.0-15.0); Lymphocyte # 0.39 X10^3/ul (4.0); Lymphocyte % 8.6 % (19-41); Mean Corp Hgb Conc 29.5 g/dL (32-36); Mean Corpuscular Hgb 24.3 pg (27.0-32.0); Mean Corpuscular Volume 82.4 fL (81-99); Mean Platelet Vol. 10.5 fl (6.2-12.0); Monocyte% 6.6 % (0-10); NRBC Flagged by Analyzer 0 % (0-5); Neutrophil # 3.64 X10^3/uL (2.7-7.7); Neutrophil % 80.6 % (47-70); POSITIVE DIFFERENTIAL YES; Platelet Count 102 K/mm3 (150-450); RBC Distribution Width CV 16.1 % (11.6-14.6); RBC Distribution Width SD 47.8 fl (35.1-43.9); Red Blood Count 4.61 M/mm3 (4.2-5.4); White Blood Count 4.5 K/mm3 (4.4-11.0)
[2021-01-30 11:33] LABS: Red Blood Cells-Urine 0-5 SEEN /hpf (0-5)
[2021-01-30 11:43] LABS: ALB/GLOB Ratio 0.6 RATIO (0.9-2.4); AST(SGOT) 28 U/L (15-37); Alanine Aminotransfer ALT/SGPT 27 U/L (13-56); Albumin, Serum 2.9 g/dL (3.2-5.0); Alkaline Phosphatase 78 U/L (45-117); Anion Gap 3 (5-15); BUN 8 mg/dL (7-18); BUN/Creat Ratio 12.8 RATIO (10-20); Calcium,Total 9.7 mg/dL (8.5-10.1); Chloride 106 mmol/L (98-107); Creatinine, Serum 0.63 mg/dL (0.55-1.02); EST Glomerular Filtration Rate 99 mL/min (>60); Est Glom Filt Rate - Afr Amer 120 mL/min (>60); Estimated Creatinine Clearance 36.53 ml/min; Globulin 4.5 g/dL (2.2-4.2); Glucose 164 mg/dL (74-106); Potassium 4.1 mmol/L (3.5-5.1); Protein, Total 7.4 g/dL (6.4-8.2); Sodium Level 139 mmol/L (136-145)
[2021-01-30 11:44] LABS: Differential Indicated SCAN CRITERIA MET
[2021-01-30 11:55] LABS: Differential Comment SCANNED
[2021-01-30 12:15] VITALS: BP 178/75; PULSE 79; RESP 23; O2SAT 95
== END 2021-01-30 12:22 | disposition home or self-care (01) ==
PROVIDERS: Emergency Provider Emergency Medicine; PCP Family Medicine
DX: I16.0 Hypertensive urgency (principal); J44.9 Chronic obstructive pulmonary disease, unspecified; E11.9 Type 2 diabetes mellitus without complications; K21.9 Gastro-esophageal reflux disease without esophagitis; E66.9 Obesity, unspecified; Z79.51 Long term (current) use of inhaled steroids; Z79.84 Long term (current) use of oral hypoglycemic drugs; Z79.899 Other long term (current) drug therapy; Z87.891 Personal history of nicotine dependence
CPT/HCPCS: 71045; 80053; 81001; 84484; 85025; 93005; 99285; J2405

== ENCOUNTER 2021-04-03 13:32 | Emergency (ER) | payer MEDICARE, MEDICAID, SELFPAY ==
[2021-04-03 13:33] VITALS: BP 213/69; PULSE 82; PULSE 87; RESP 21; RESP 23; TEMP 37; O2SAT 96; BMI 35.9
--- NOTE | 2021-04-03 13:40 | EKG12_ITS ---
Test Reason : CP Blood Pressure : / mmHG Vent. Rate : 084 BPM Atrial Rate : 084 BPM P-R Int : 142 ms QRS Dur : 132 ms QT Int : 386 ms P-R-T Axes : 024 -71 046 degrees QTc Int : 456 ms Sinus rhythm with Premature atrial complexes Right bundle branch block Left anterior fascicular block Bifascicular block Moderate voltage criteria for LVH, may be normal variant Abnormal ECG Confirmed by JERROD ROWELL, JUNO ([id number]), director of distance learning EDDIE JEAN ([id number]) on 04/05/2021 10:42:04 A M Referred By: Confirmed By:LEE ELDER MD
--- NOTE | 2021-04-03 14:24 | EDS_ITS ---
HPI History of Present Illness Chief Complaint: Hypertension Informant: patient and family Narrative Narrative: 71-year-old female presenting for the evaluation of asymptomatic hypertension. 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 She states that she is now prescribed clonidine 7 times a day. She states that despite this in the middle the night her blood pressure medicines wear off around 2 in the morning she feels chest heaviness. She states that it is messing with her mind and she is afraid she is losing her mind. She has an appointment on Thursday with her orthopedic shoe fitter. Patient states she took her carvedilol just prior to arrival and feels fine at the current time but is worried about how high her pressure is. She cannot tell me all the medication she has tried in the past. She does not want to go up on her carvedilol. She does not want to go up on her clonidine. Family notes that she is extremely anxious and notes that she has tried Valium in the past which she does not like. She states she is tried other psychiatric medicines which have not helped her. [facility] Medical History Anemia Asthma COPD (chronic obstructive pulmonary disease) Depressive disorder Diabetes mellitus GERD (gastroesophageal reflux disease) history diagnostic hysteroscopy history thrombendarterectomy neck Hypertension Osteoarthrosis Skin lesion Home Medications glimepiride 4 mg PO TID 09/10/13 [History Last Taken 10/16/16] metformin 1,000 mg PO BID 01/23/16 [History Last Taken 10/16/16] albuterol sulfate 2 puff INHALATION Q4H PRN PRN 07/04/16 [History Last Taken 10/16/16] clonidine HCl 0.1 mg tablet 2 tab PO BID tab 11/20/17 [History Last Taken Unknown] clonidine HCl 0.1 mg PO LUNCH 01/06/19 [History Last Taken Unknown] albuterol sulfate 2.5 mg INHALATION Q4H PRN PRN 01/30/21 [History Last Taken Unknown] dicyclomine 10 mg PO TID PRN PRN 01/30/21 [History Last Taken Unknown] furosemide 20 mg PO DAILY 01/30/21 [History Last Taken Unknown] alprazolam [Xanax] 0.5 mg PO BID PRN #10 tab 04/03/21 [Rx Last Taken Unknown] Allergy/AdvReac Type Severity Reaction Status Date / Time suture Allergy Mild rash/ Verified 04/03/21 13:33 wound dehisence amoxicillin Allergy Unknown Verified 04/03/21 13:33 azithromycin Allergy Shortness Verified 04/03/21 13:33 of breath celecoxib [From Celebrex] Allergy Other Verified 04/03/21 13:33 ciprofloxacin [From Cipro] Allergy Shortness Verified 04/03/21 13:33 of breath ciprofloxacin HCl Allergy Shortness Verified 04/03/21 13:33 [From Cipro] of breath cortisone Allergy Swelling Verified 04/03/21 13:33 doxycycline Allergy Shortness Verified 04/03/21 13:33 of breath erythromycin base Allergy Unknown Verified 04/03/21 13:33 fexofenadine [From Ashlee] Allergy Unknown Verified 04/03/21 13:33 ibuprofen Allergy Shortness Verified 04/03/21 13:33 of breath Iodinated Contrast Media Allergy Shortness Verified 04/03/21 13:33 [DYEE] of breath iodine Allergy Shortness Verified 04/03/21 13:33 of breath levofloxacin [From Levaquin] Allergy Shortness Verified 04/03/21 13:33 of breath lorazepam [From Ativan] Allergy Shortness Verified 04/03/21 13:33 of breath nitrofurantoin Allergy Shortness Verified 04/03/21 13:33 [From Macrobid] of breath nitrofurantoin Allergy Shortness Verified 04/03/21 13:33 macrocrystalline of breath [From Macrobid] Penicillins Allergy Shortness Verified 04/03/21 13:33 of breath rofecoxib [From Vioxx] Allergy Unknown Verified 04/03/21 13:33 Sulfa (Sulfonamide Allergy Shortness Verified 04/03/21 13:33 Antibiotics) of breath sulfamethoxazole Allergy Shortness Verified 04/03/21 13:33 [From Bactrim] of breath trimethoprim [From Bactrim] Allergy Shortness Verified 04/03/21 13:33 of breath amlodipine [From Norvasc] AdvReac Upset Verified 04/03/21 13:33 Stomach cat gut sutures Allergy Unknown Uncoded 04/03/21 13:33 MISC BP MED Allergy Shortness Uncoded 04/03/21 13:33 of breath Family History Mother Heart disease Brother Heart disease Surgical History History of bilateral salpingo-oophorectomy History of laparoscopic cholecystectomy History of oral surgery Social History Smoking Status: Former smoker alcohol intake: never substance use type: does not use ROS ROS ED Constitutional Constitutional ED: Denies chills or weight loss Eyes Eyes: Denies change in vision or diplopia ENT ENT ED: Denies ear pain, rhinorrhea or sore throat Cardiovascular Cardiovascular: Denies chest pain, orthopnea, palpitations or racing heartbeat Respiratory/Chest Respiratory/Chest: Reports chest tightness; Denies cough, dyspnea or orthopnea Gastrointestinal Gastrointestinal: Denies abdominal pain, diarrhea, nausea or vomiting Genitourinary Genitourinary ED: Denies dysuria, hematuria or urinary frequency Musculoskeletal Musculoskeletal: Denies arthralgias or myalgias Integumentary Denies abscess or rash Neurologic Neurologic: Denies headache(s) or weakness Psychiatric Psychiatric: Reports confusion and panic attacks; Denies anxiety, depression, suicidal ideation or suicidal thoughts Endocrine Endocrinology: Denies polydipsia, polyphagia or polyuria Allergic/Immunologic Allergic/Immunologic ED: Denies mouth swelling, tongue swelling or urticaria EXAM Physical Exam Const Vital Signs: 04/03/21 13:33 04/03/21 13:38 04/03/21 14:44 Temperature 98.6 F Temperature Source Oral Pulse Rate 87 83 Respiratory Rate 21 H 18 Respiratory Effort Normal Respiratory Pattern Normal Blood Pressure 213/69 H 203/61 H Blood Pressure Mean 117 108 Pulse Ox 96 95 Oxygen Delivery Method Room Air Room Air 04/03/21 15:24 Temperature Temperature Source Pulse Rate 82 Respiratory Rate 20 H Respiratory Effort Respiratory Pattern Blood Pressure 192/63 H Blood Pressure Mean 106 Pulse Ox 95 Oxygen Delivery Method Room Air Positive well nourished and well developed General Appearance ED: well developed HEENT Reports normocephalic, head/scalp atraumatic and moist mucous membranes Eyes PERRL and EOMs intact bilaterally Neck no lymphadenopathy, supple and no JVD Resp normal respiratory effort and clear to auscultation bilaterally Cardio regular rate, regular rhythm and no murmurs GI normal to inspection, nondistended, normoactive bowel sounds and non-tender Palpation: soft Back/Spine no CVA tenderness and normal ROM Extremity normal to inspection General Extremety ED: Negative for edema General Extremity: Negative for edema Neuro oriented x3 and CN's II-XII intact bilaterally Sensorium / Orientation: alert Motor Exam: strength 5/5 throughout Psych mental status grossly normal Mood & Affect: anxious; Negative for depressed or tearful Skin no rashes or lesions noted and no wounds MDM MDM MDM Narrative Medical decision making narrative: I explained to the patient and her family that this is a very difficult problem to solve here in the emergency department as I do not know what all medication she was tried in the past. She has a long list of medications that causes her to feel short of breath. I mentioned other blood pressure pills specifically amlodipine metoprolol hydralazine clonidine patch JOSE inhibitor's etc. and the patient does not wish to take any of those. I think the patient has a great deal of anxiety and family does agree with this. As we are talking about this the patient begins to tell me that she is feeling short of breath. I offered her a Xanax which she initially refused but then later agreed to try a low-dose. Blood pressure decreased to 180/76. She remains asymptomatic but still anxious. I write for have some Xanax at home and she is comfortable with that. But she is not comfortable with making any further changes in her blood pressure. Advised the patient that having anxiety about health care is fine until it starts to limit what we are able to do for her. She is comfortable with going home at this point. She will follow-up with her orthopedic shoe fitter on Thursday EKG Initial EKG: Attestation: I personally reviewed and interpreted this EKG as follows: Comments: EKG demonstrates a sinus rhythm at a rate of 84 with PAC. Noted bifascicular block Discharge Plan Triage Chief Complaint: Hypertension ED Provider: Adam James Dx/Rx/DC Orders Clinical Impression: Asymptomatic hypertensive urgency, Anxiety about health Instructions: ED Hypertension, Established Prescriptions: New alprazolam [Xanax] 0.5 mg tablet 0.5 mg PO BID PRN (Reason: anxiety) Qty: 10 RF: 0 No Action glimepiride 1 MG tablet 4 mg PO TID RF: 0 metformin 1,000 MG tablet 1,000 mg PO BID RF: 0 albuterol sulfate 1 PUFF inhaler 2 puff INHALATION Q4H PRN PRN (Reason: Sob &/Or Wheezing) RF: 0 clonidine HCl 0.1 MG tablet 2 tab PO BID RF: 0 clonidine HCl 0.2 MG tablet 0.1 mg PO LUNCH RF: 0 albuterol sulfate 2.5 MG/3 ML solution for nebulization 2.5 mg INHALATION Q4H PRN PRN (Reason: Sob &/Or Wheezing) RF: 0 furosemide 20 MG tablet 20 mg PO DAILY RF: 0 dicyclomine 10 MG capsule 10 mg PO TID PRN PRN (Reason: cramping) RF: 0 Primary Care Provider: Josiah Smith Referrals: Josiah Smith MD [Primary Care Provider] - Keep [facility] appointment Activity Restrictions/Additional Instructions: Please keep your appointment with your orthopedic shoe fitter. Disposition Disposition: Home, self care
[2021-04-03] MEDS: ALPRAZolam 0.25 MG Tablet PO (14:43)
[2021-04-03 14:44] VITALS: BP 203/61; PULSE 83; RESP 18; O2SAT 95
[2021-04-03 15:24] VITALS: BP 192/63; PULSE 82; RESP 20; O2SAT 95
[2021-04-03 16:50] VITALS: BP 185/80; PULSE 85; RESP 16; O2SAT 96
== END 2021-04-03 16:51 | disposition home or self-care (01) ==
PROVIDERS: Emergency Provider Emergency Medicine; PCP Family Medicine
DX: I16.0 Hypertensive urgency (principal); F41.9 Anxiety disorder, unspecified; E11.9 Type 2 diabetes mellitus without complications; J44.9 Chronic obstructive pulmonary disease, unspecified; Z87.891 Personal history of nicotine dependence; Z79.84 Long term (current) use of oral hypoglycemic drugs; Z79.899 Other long term (current) drug therapy
CPT/HCPCS: 93005; 99285; A4216

== ENCOUNTER → 2021-05-01 13:36 | Outpatient (CLI) | payer MEDICARE, MEDICAID, SELFPAY ==
[2021-04-03 13:33] VITALS: BMI 35.9
[2021-05-01 14:04] VITALS: BP 168/68; PULSE 57; RESP 16; TEMP 36.3; O2SAT 96
[2021-05-01 14:47] VITALS: BP 188/77; PULSE 69; RESP 16; TEMP 36.2; O2SAT 95
== END ==
PROVIDERS: PCP Family Medicine; Referring Provider Internal Medicine Hematology & Oncology; Visit Provider Internal Medicine Hematology & Oncology
DX: K90.9 Intestinal malabsorption, unspecified (principal); K75.81 Nonalcoholic steatohepatitis (NASH); D50.9 Iron deficiency anemia, unspecified
CPT/HCPCS: 96365; J1756; J7050; A4216

== ENCOUNTER → 2021-05-08 13:51 | Outpatient (CLI) | payer MEDICARE, MEDICAID, SELFPAY ==
[2021-05-08 14:04] VITALS: BP 180/51; PULSE 57; RESP 16; TEMP 36.8; O2SAT 97; BMI 35.9
[2021-05-08 14:54] VITALS: BP 141/102; PULSE 65; RESP 18; TEMP 36.7; O2SAT 97
== END ==
PROVIDERS: PCP Family Medicine; Referring Provider Internal Medicine Hematology & Oncology; Visit Provider Internal Medicine Hematology & Oncology
DX: D50.0 Iron deficiency anemia secondary to blood loss (chronic) (principal); K74.60 Unspecified cirrhosis of liver; K90.9 Intestinal malabsorption, unspecified
CPT/HCPCS: 96365; J1756; J7050; A4216

== ENCOUNTER → 2021-05-13 13:45 | Outpatient (CLI) | payer MEDICARE, MEDICAID, SELFPAY ==
[2021-05-08 14:04] VITALS: BMI 35.9
[2021-05-13 14:00] VITALS: BP 147/65; PULSE 55; RESP 16; TEMP 36.3; O2SAT 95; BMI 34.9
[2021-05-13 14:47] VITALS: BP 155/62; PULSE 67; RESP 16; TEMP 36.3; O2SAT 95
== END ==
PROVIDERS: PCP Family Medicine; Referring Provider Internal Medicine Hematology & Oncology; Visit Provider Internal Medicine Hematology & Oncology
DX: D50.0 Iron deficiency anemia secondary to blood loss (chronic) (principal); K74.60 Unspecified cirrhosis of liver; K90.9 Intestinal malabsorption, unspecified
CPT/HCPCS: 96365; J1756; J7050; A4216

== ENCOUNTER → 2021-05-20 09:19 | Outpatient (CLI) | payer MEDICARE, MEDICAID, SELFPAY ==
[2021-05-13 14:00] VITALS: BMI 34.9
== END ==
PROVIDERS: PCP Family Medicine; Referring Provider Internal Medicine Hematology & Oncology; Visit Provider Internal Medicine Hematology & Oncology
DX: D50.0 Iron deficiency anemia secondary to blood loss (chronic) (principal); K74.60 Unspecified cirrhosis of liver; K90.9 Intestinal malabsorption, unspecified

== ENCOUNTER 2021-06-09 10:10 | Emergency (ER) | payer MEDICARE, MEDICAID, SELFPAY ==
[2021-06-09 10:11] VITALS: BP 185/85; PULSE 71; RESP 16; TEMP 36.1; O2SAT 94; BMI 33.0
--- NOTE | 2021-06-09 10:25 | CT_ITS ---
STUDY: CT ABDOMEN AND PELVIS WITHOUT CONTRAST REASON FOR EXAM: Female, 71 years old. Pain RADIATION DOSAGE (If Supplied By Facility): CTDIvol = ( 15.44 ) mGy, DLP = ( 887.37 ) mGycm TECHNIQUE: Transaxial images were obtained from the dome of the diaphragm to the symphysis pubis without oral contrast, and without intravenous contrast. Sagittal and coronal images were reconstructed. Individualized dose optimization techniques were used for this CT. COMPARISON: None. FINDINGS: Large left pleural effusion with left lower lobe atelectasis. The visualized portions of the heart are within normal limits. Large amount of ascites. There is a diffuse contour abnormality of the liver consistent with cirrhotic changes. There are surgical clips in the gallbladder fossa consistent with a prior cholecystectomy. There is mild splenomegaly. Normal pancreas. Normal bilateral adrenal glands. Normal right kidney. Normal left kidney. Normal visualized stomach. Normal small intestine. Normal colon. The appendix is visualized and appears normal. There is diffuse atherosclerotic calcification of the abdominal aorta, without a demonstrated aneurysm. Normal inferior vena cava. Normal retroperitoneum. Normal urinary bladder. Large bilobed umbilical hernia containing fluid. Normal osseous structures. CT/Abdomen/Pelvis without Cont IMPRESSION: 1. Cirrhosis with a large amount of ascites and mild splenomegaly. 2. Large left pleural effusion with left lower lobe atelectasis. 3. Large bilobed umbilical hernia containing fluid. Electronically Signed: Pb Palma MD at 12:06 EDT Tel , Service support ,
--- NOTE | 2021-06-09 10:26 | ED.VIS.GI ---
HPI HPI - GI History of Present Illness Chief Complaint: Constipation Detail of Chief Complaint: Constipation for 6 days Informant: patient Narrative Narrative: Patient presents to the emergency department complaint of constipation over the last 6 days. Patient states that she has not had a good bowel movement. She has tried suppositories at home. Patient has had problems with constipation in the past but not to this extent and in the past prune juice would help her. Patient states that she has been getting iron treatments and thinks that might be the cause. Patient denies any blood in her stool or black tarry stools. She denies fever. She denies any vomiting. Patient denies urinary symptoms. She denies any change in medication otherwise. Patient complains mostly of pain in her rectum. Patient also has history of ascites and history of hernia. Prior similar symptoms: No PFSH PFSH Medical History Anemia Asthma COPD (chronic obstructive pulmonary disease) Depressive disorder Diabetes mellitus GERD (gastroesophageal reflux disease) history diagnostic hysteroscopy history thrombendarterectomy neck Hypertension Osteoarthrosis Skin lesion Home Medications glimepiride 4 mg PO TID 09/10/13 [History Last Taken 10/16/16] albuterol sulfate 2 puff INHALATION Q4H PRN PRN 07/04/16 [History Last Taken 10/16/16] clonidine HCl 0.1 mg tablet 2 tab PO BID tab 11/20/17 [History Last Taken Unknown] clonidine HCl 0.1 mg PO LUNCH 01/06/19 [History Last Taken Unknown] albuterol sulfate 2.5 mg INHALATION Q4H PRN PRN 01/30/21 [History Last Taken Unknown] dicyclomine 10 mg PO TID PRN PRN 01/30/21 [History Last Taken Unknown] furosemide 20 mg PO DAILY 01/30/21 [History Last Taken Unknown] alprazolam [Xanax] 0.5 mg PO BID PRN #10 tab 04/03/21 [Rx Last Taken Unknown] Allergy/AdvReac Type Severity Reaction Status Date / Time suture Allergy Mild rash/ Verified 06/09/21 10:11 wound dehisence amoxicillin Allergy Unknown Verified 06/09/21 10:11 azithromycin Allergy Shortness Verified 06/09/21 10:11 of breath celecoxib [From Celebrex] Allergy Other Verified 06/09/21 10:11 ciprofloxacin [From Cipro] Allergy Shortness Verified 06/09/21 10:11 of breath ciprofloxacin HCl Allergy Shortness Verified 06/09/21 10:11 [From Cipro] of breath cortisone Allergy Swelling Verified 06/09/21 10:11 doxycycline Allergy Shortness Verified 06/09/21 10:11 of breath erythromycin base Allergy Unknown Verified 06/09/21 10:11 fexofenadine [From Ashlee] Allergy Unknown Verified 06/09/21 10:11 ibuprofen Allergy Shortness Verified 06/09/21 10:11 of breath Iodinated Contrast Media Allergy Shortness Verified 06/09/21 10:11 [DYEE] of breath iodine Allergy Shortness Verified 06/09/21 10:11 of breath levofloxacin [From Levaquin] Allergy Shortness Verified 06/09/21 10:11 of breath lorazepam [From Ativan] Allergy Shortness Verified 06/09/21 10:11 of breath nitrofurantoin Allergy Shortness Verified 06/09/21 10:11 [From Macrobid] of breath nitrofurantoin Allergy Shortness Verified 06/09/21 10:11 macrocrystalline of breath [From Macrobid] Penicillins Allergy Shortness Verified 06/09/21 10:11 of breath rofecoxib [From Vioxx] Allergy Unknown Verified 06/09/21 10:11 Sulfa (Sulfonamide Allergy Shortness Verified 06/09/21 10:11 Antibiotics) of breath sulfamethoxazole Allergy Shortness Verified 06/09/21 10:11 [From Bactrim] of breath trimethoprim [From Bactrim] Allergy Shortness Verified 06/09/21 10:11 of breath amlodipine [From Norvasc] AdvReac Upset Verified 06/09/21 10:11 Stomach cat gut sutures Allergy Unknown Uncoded 06/09/21 10:11 MISC BP MED Allergy Shortness Uncoded 06/09/21 10:11 of breath Family History Mother Heart disease Brother Heart disease Surgical History History of bilateral salpingo-oophorectomy History of laparoscopic cholecystectomy History of oral surgery Social History Smoking Status: Former smoker alcohol intake: never substance use type: does not use ROS ROS ED Constitutional Constitutional ED: Reports systems reviewed and no addt'l complaints, except as documented; Denies body ache(s), change in weight or chills Eyes Eyes: Denies acute decrease in peripheral vision, change in vision, double vision or loss of vision ENT ENT ED: Reports none; Denies ear pain, lip swelling, loss taste/smell, neck pain, otalgia or sore throat Cardiovascular Cardiovascular: Reports none; Denies abdominal pain, chest pain with activity, leg edema, lightheadedness, palpitations, rapid heart rate or syncope Respiratory/Chest Respiratory/Chest: Reports none; Denies change in mental status, dry cough, dyspnea, hemoptysis, shortness of breath at rest or shortness of breath with exertion Gastrointestinal Gastrointestinal: Reports none, abdominal pain, constipation and nausea; Denies change in stool character, diarrhea, hematemesis, hematochezia, melena, rectal bleeding or vomiting Genitourinary Genitourinary ED: Reports none; Denies abdominal discomfort, anuria, dysuria, genital pain or polyuria Musculoskeletal Musculoskeletal: Reports none; Denies arthralgias, back pain, difficulty walking, extremity pain, muscle weakness or myalgias Integumentary Reports none; Denies abscess or rash Neurologic Neurologic: Reports none; Denies abnormal gait, confusion, focal weakness, frequent falls, headache(s), loss of vision, numbness, paresthesias, radicular pain, vertigo or weakness Psychiatric Psychiatric: Reports systems reviewed and no addt'l complaints, except as documented and none; Denies behavioral changes, confusion, difficulty concentrating, hallucinations, suicidal ideation, tactile hallucinations or visual hallucinations Endocrine Endocrinology: Denies none, cold intolerance, excessive sweating, fatigue or heat intolerance Hematologic/Lymphatic Hematologic/Lymphatic: Reports none; Denies anemia, easy bleeding or easy bruising Allergic/Immunologic Allergic/Immunologic ED: Denies as per HPI, none, lip swelling, mouth swelling, throat swelling, tongue swelling or hives EXAM Physical Exam Const Vital Signs: 06/09/21 10:11 06/09/21 12:18 Temperature 96.9 F L Temperature Source Temporal Pulse Rate 71 Respiratory Rate 16 Blood Pressure 185/85 H 192/57 H Blood Pressure Mean 118 102 Pulse Ox 94 Oxygen Delivery Method Room Air Positive well nourished and well developed General Appearance ED: well developed and NAD HEENT Reports TM's clear and moist mucous membranes normocephalic and atraumatic; Negative for trauma or tenderness Tympanic Membrane ED: Yes TM's clear Eyes PERRL and EOMs intact bilaterally General Eye ED: Negative for pale conjunctiva or scleral icterus Neck no lymphadenopathy, supple and no JVD General: Negative for tenderness Chest Wall inspection of chest normal and palpation of chest normal Chest: Negative for tenderness Resp normal respiratory effort and clear to auscultation bilaterally Effort and Inspection: Negative for respiratory distress or pain with movement Auscultation: Negative for rhonchi, wheezes or diminished lung sounds Cardio regular rate, regular rhythm, S1 normal heart sound, S2 normal heart sound and no murmurs Peripheral Pulses: pulses 2+ throughout GI normal to inspection, nondistended, normoactive bowel sounds, soft to palpation and no masses GI Narrative: Patient was some abdominal distention and mild diffuse tenderness throughout. There is no rebound, rigidity, or peritoneal signs. Palpation: tender Back/Spine no CVA tenderness and no thoracic nor lumbar tenderness Extremity normal to inspection General Extremety ED: Negative for edema General Extremity: Negative for edema Neuro oriented x3, CN's II-XII intact bilaterally, no sensory deficits noted and gait normal Sensorium / Orientation: awake, alert, oriented to person, oriented to place and oriented to time Motor Exam: strength 5/5 throughout and strength abnormal Psych mental status grossly normal Skin no rashes or lesions noted and no wounds MDM MDM MDM Narrative Medical decision making narrative: Patient received a soapsuds enema with some results and I secondarily went in and manually disimpacted more stool from her rectum. She will finish the rest of the soapsuds and will be discharged to home with a bottle of magnesium citrate. Patient has an appointment with her surgeon later this week to evaluate for her hernia repair. There is plans to do paracentesis at the time of her surgery. Patient advised to use MiraLAX daily. Lab Data Attestation: I reviewed the patient's lab results. Labs: Laboratory Results - last 24 hr 06/09/21 06/09/21 10:58 10:58 WBC 3.6 L RBC 4.72 Hgb 11.2 L Hct 38.2 MCV 80.9 L MCH 23.7 L MCHC 29.3 L RDW Std Deviation 57.6 H RDW Coeff of [place] 19.8 H Plt Count 105 L MPV 9.8 Immature Gran % (Auto) 0.600 Neut % (Auto) 79.0 H Lymph % (Auto) 10.[address] [place] % (Auto) 6.1 Eos % (Auto) 2.8 Baso % (Auto) 0.8 Absolute Neuts (auto) 2.9 Absolute Lymphs (auto) 0.39 L Nucleated RBC % 0 Differential Comment SCANNED Diff Path Review February foll Sodium 140 Potassium 3.8 Chloride 103 Carbon Dioxide 31.0 Anion Gap 6 BUN 10 Creatinine 0.84 Estim Creat Clear Calc 42.84 Est GFR (MDRD) Af Amer 85 Est GFR (MDRD) Non-Af 70 BUN/Creatinine Ratio 11.9 Glucose 130 H Calcium 9.3 Radiography Diagnostic Testing: Radiology Impression Abdomen/Pelvis CT 06/09/21 10:25 IMPRESSION: 1. Cirrhosis with a large amount of ascites and mild splenomegaly. 2. Large left pleural effusion with left lower lobe atelectasis. 3. Large bilobed umbilical hernia containing fluid. Electronically Signed: Pb Palma MD at 12:06 EDT Tel , Service support , Discharge Plan Triage Chief Complaint: Constipation ED Provider: Max Guerin Dx/Rx/DC Orders Clinical Impression: Constipation Instructions: ED Constipation (Adult) Prescriptions: No Action glimepiride 1 MG tablet 4 mg PO TID RF: 0 albuterol sulfate 1 PUFF inhaler 2 puff INHALATION Q4H PRN PRN (Reason: Sob &/Or Wheezing) RF: 0 clonidine HCl 0.1 MG tablet 2 tab PO BID RF: 0 clonidine HCl 0.2 MG tablet 0.1 mg PO LUNCH RF: 0 albuterol sulfate 2.5 MG/3 ML solution for nebulization 2.5 mg INHALATION Q4H PRN PRN (Reason: Sob &/Or Wheezing) RF: 0 furosemide 20 MG tablet 20 mg PO DAILY RF: 0 dicyclomine 10 MG capsule 10 mg PO TID PRN PRN (Reason: cramping) RF: 0 alprazolam [Xanax] 0.5 mg tablet 0.5 mg PO BID PRN (Reason: anxiety) Qty: 10 RF: 0 Primary Care Provider: Josiah Smith Referrals: Josiah Smith MD [Primary Care Provider] - Activity Restrictions/Additional Instructions: Use daily MiraLAX which is [id number] to keep stool soft. Disposition Disposition: Home, Self Care
[2021-06-09] MEDS: 0.9% Normal Saline 1,000 ML 125 ML IV (11:03)
[2021-06-09 11:14] LABS: Absolute Lymphocyte Count 0.39 X10^3/uL (0.83-4.51); Absolute Neutrophil Count 2.9 X10^3/uL (2.0-7.7); Basophil# 0.03 X10^3/uL; Basophil% 0.8 % (0-1); Eosinophils% 2.8 % (0-5); Hematocrit 38.2 % (37-47); Hemoglobin 11.2 g/dL (12.0-15.0); Lymphocyte # 0.39 X10^3/ul (0.83-4.51); Lymphocyte % 10.7 % (19-41); Mean Corp Hgb Conc 29.3 g/dL (32-36); Mean Corpuscular Hgb 23.7 pg (27.0-32.0); Mean Corpuscular Volume 80.9 fL (81-99); Mean Platelet Vol. 9.8 fl (6.2-12.0); Monocyte# 0.22 X10^3/uL; Monocyte% 6.1 % (0-10); NRBC Flagged by Analyzer 0 % (0-5); Neutrophil # 2.87 X10^3/uL (2.7-7.7); POSITIVE DIFFERENTIAL YES; Platelet Count 105 K/mm3 (150-450); RBC Distribution Width CV 19.8 % (11.6-14.6); RBC Distribution Width SD 57.6 fl (35.1-43.9); Red Blood Count 4.72 M/mm3 (4.2-5.4); White Blood Count 3.6 K/mm3 (4.4-11.0)
[2021-06-09 11:17] LABS: Differential Indicated SCAN CRITERIA MET
[2021-06-09 11:19] LABS: Anion Gap 6 (5-15); BUN 10 mg/dL (7-18); BUN/Creat Ratio 11.9 RATIO (10-20); Calcium,Total 9.3 mg/dL (8.5-10.1); Chloride 103 mmol/L (98-107); Creatinine, Serum 0.84 mg/dL (0.55-1.02); EST Glomerular Filtration Rate 70 mL/min (>60); Est Glom Filt Rate - Afr Amer 85 mL/min (>60); Estimated Creatinine Clearance 42.84 ml/min; Glucose 130 mg/dL (74-106); Potassium 3.8 mmol/L (3.5-5.1); Sodium Level 140 mmol/L (136-145)
[2021-06-09 11:37] LABS: Differential Comment SCANNED
[2021-06-09 12:18] VITALS: BP 192/57
[2021-06-09] MEDS: Magnesium Citrate 300 ML PO (14:09)
[2021-06-09 14:10] VITALS: BP 161/88; PULSE 58; RESP 16; O2SAT 93
[2021-06-10 13:05] LABS: Pathologist Review Reviewed
== END 2021-06-09 14:25 | disposition home or self-care (01) ==
PROVIDERS: Emergency Provider Emergency Medicine; PCP Family Medicine
DX: K59.00 Constipation, unspecified (principal); Z87.891 Personal history of nicotine dependence
CPT/HCPCS: 74176; 80048; 85025; 96360; 96361; 99285; J7030; A4216

== ENCOUNTER 2022-02-09 15:02 | Inpatient (IN) | payer MEDICARE, MEDICAID, SELFPAY ==
[2022-02-09] VITALS (7 sets, daily range): BP systolic 151–177; BP diastolic 41–120; PULSE 61–66; RESP 16–20; TEMP 36.3–36.9; O2SAT 78–100; BMI 36.1; BMI 33.5
--- NOTE | 2022-02-09 15:21 | RAD_ITS ---
STUDY: X-RAY CHEST REASON FOR EXAM: Female, 71 years old. dyspnea TECHNIQUE: Single frontal view of the chest. COMPARISON: 01/30/2021 FINDINGS: The lungs are clear and expanded. Small bilateral pleural effusions. Cardiomegaly. Normal mediastinum and ivan. Normal visualized pulmonary arteries. Normal visualized aortic arch and descending thoracic aorta. Normal visualized thoracic spine. Normal visualized ribs, clavicles, and shoulders. There is no demonstrated abnormality of the visualized soft tissue structures of the upper abdomen. RAD/Chest 1 View (Portable) IMPRESSION: Small bilateral pleural effusions. Electronically Signed: Clayton Medley MD at 17:29 EDT ,
--- NOTE | 2022-02-09 15:21 | EKG12_ITS ---
Test Reason : Blood Pressure : / mmHG Vent. Rate : 068 BPM Atrial Rate : 068 BPM P-R Int : 152 ms QRS Dur : 140 ms QT Int : 436 ms P-R-T Axes : 033 -75 039 degrees QTc Int : 463 ms Normal sinus rhythm Left axis deviation Right bundle branch block Anterior infarct , age undetermined , cannot be excluded Abnormal ECG Confirmed by FELICIANO ROWELL, DANITA ([id number]), editorial clerk EDDIE JEAN ([id number]) on 02/11/2022 11:13:03 AM Referred By: YUE Confirmed By:DANITA WIGGINS MD
--- NOTE | 2022-02-09 15:23 | EX.ED.DYSGE1 ---
HPI History of Present Illness Chief Complaint: General Illness Detail of Chief Complaint: Mental status change in hallucinations since yesterday Informant: patient Narrative Narrative: Patient presents to the emergency department with her daughter who brings her in for evaluation of hallucinations. Patient apparently has been seeing little boy sitting at the table and seeing pereira that are not there. Patient has a complicated medical history and was admitted at [facility] 6 weeks ago and had hernia repairs and then had some internal bleeding. Patient has history of some stents in her bile ducts. Patient has had history of elevated ammonia. Patient developed a little bit of a cough 2 weeks ago and was placed on Zithromax. She has been complaining of some shortness of breath but is refusing to wear her oxygen. Daughter states that visiting nurse noted that her oxygen was 85% on room air when she visited last week. Patient denies any headache or chest pain. She denies abdominal pain. Daughter also states patient's urine is orange. Prior similar symptoms: No PFSH PFSH Medical History Anemia Asthma COPD (chronic obstructive pulmonary disease) Depressive disorder Diabetes mellitus GERD (gastroesophageal reflux disease) history diagnostic hysteroscopy history thrombendarterectomy neck Hypertension Osteoarthrosis Skin lesion Home Medications glimepiride 4 mg PO TID 09/10/13 [History Last Taken 10/16/16] albuterol sulfate 2 puff INHALATION Q4H PRN PRN 07/04/16 [History Last Taken 10/16/16] clonidine HCl 0.1 mg tablet 2 tab PO BID tab 11/20/17 [History Last Taken Unknown] clonidine HCl 0.1 mg PO LUNCH 01/06/19 [History Last Taken Unknown] albuterol sulfate 2.5 mg INHALATION Q4H PRN PRN 01/30/21 [History Last Taken Unknown] furosemide 20 mg PO DAILY 01/30/21 [History Last Taken Unknown] furosemide 02/09/22 [History Last Taken Unknown] metronidazole [Flagyl] 500 mg PO BID 02/09/22 [History Last Taken Unknown] Allergy/AdvReac Type Severity Reaction Status Date / Time suture Allergy Mild rash/ Verified 06/09/21 10:11 wound dehisence amoxicillin Allergy Unknown Verified 06/09/21 10:11 azithromycin Allergy Shortness Verified 06/09/21 10:11 of breath celecoxib [From Celebrex] Allergy Other Verified 06/09/21 10:11 ciprofloxacin [From Cipro] Allergy Shortness Verified 06/09/21 10:11 of breath ciprofloxacin HCl Allergy Shortness Verified 06/09/21 10:11 [From Cipro] of breath cortisone Allergy Swelling Verified 06/09/21 10:11 doxycycline Allergy Shortness Verified 06/09/21 10:11 of breath erythromycin base Allergy Unknown Verified 06/09/21 10:11 fexofenadine [From Ashlee] Allergy Unknown Verified 06/09/21 10:11 ibuprofen Allergy Shortness Verified 06/09/21 10:11 of breath Iodinated Contrast Media Allergy Shortness Verified 06/09/21 10:11 [DYEE] of breath iodine Allergy Shortness Verified 06/09/21 10:11 of breath levofloxacin [From Levaquin] Allergy Shortness Verified 06/09/21 10:11 of breath lorazepam [From Ativan] Allergy Shortness Verified 06/09/21 10:11 of breath nitrofurantoin Allergy Shortness Verified 06/09/21 10:11 [From Macrobid] of breath nitrofurantoin Allergy Shortness Verified 06/09/21 10:11 macrocrystalline of breath [From Macrobid] Penicillins Allergy Shortness Verified 06/09/21 10:11 of breath rofecoxib [From Vioxx] Allergy Unknown Verified 06/09/21 10:11 Sulfa (Sulfonamide Allergy Shortness Verified 06/09/21 10:11 Antibiotics) of breath sulfamethoxazole Allergy Shortness Verified 06/09/21 10:11 [From Bactrim] of breath trimethoprim [From Bactrim] Allergy Shortness Verified 06/09/21 10:11 of breath amlodipine [From Norvasc] AdvReac Upset Verified 06/09/21 10:11 Stomach cat gut sutures Allergy Unknown Uncoded 06/09/21 10:11 MISC BP MED Allergy Shortness Uncoded 06/09/21 10:11 of breath Family History Mother Heart disease Brother Heart disease Surgical History History of bilateral salpingo-oophorectomy History of laparoscopic cholecystectomy History of oral surgery Social History Smoking Status: Former smoker alcohol intake: never substance use type: does not use ROS ROS ED Constitutional Constitutional ED: Reports systems reviewed and no addt'l complaints, except as documented; Denies body ache(s), change in weight or chills Eyes Eyes: Denies acute decrease in peripheral vision, change in vision, double vision or loss of vision ENT ENT ED: Reports none; Denies ear pain, lip swelling, loss taste/smell, neck pain, otalgia or sore throat Cardiovascular Cardiovascular: Reports none; Denies abdominal pain, chest pain with activity, leg edema, lightheadedness, palpitations, rapid heart rate or syncope Respiratory/Chest Respiratory/Chest: Reports none and cough; Denies change in mental status, dry cough, dyspnea, hemoptysis, shortness of breath at rest or shortness of breath with exertion Gastrointestinal Gastrointestinal: Reports none; Denies abdominal pain, change in stool character, diarrhea, hematemesis, hematochezia, melena, rectal bleeding or vomiting Genitourinary Genitourinary ED: Reports none and other Details: [place] urine ; Denies abdominal discomfort, anuria, dysuria, genital pain or polyuria Musculoskeletal Musculoskeletal: Reports none; Denies arthralgias, back pain, difficulty walking, extremity pain, muscle weakness or myalgias Integumentary Reports none; Denies abscess or rash Neurologic Neurologic: Reports none; Denies abnormal gait, confusion, focal weakness, frequent falls, headache(s), loss of vision, numbness, paresthesias, radicular pain, vertigo or weakness Psychiatric Psychiatric: Reports systems reviewed and no addt'l complaints, except as documented, none and other Details: Visual and auditory hallucinations ; Denies behavioral changes, confusion, difficulty concentrating, hallucinations, suicidal ideation, tactile hallucinations or visual hallucinations Endocrine Endocrinology: Denies none, cold intolerance, excessive sweating, fatigue or heat intolerance Hematologic/Lymphatic Hematologic/Lymphatic: Reports none; Denies anemia, easy bleeding or easy bruising Allergic/Immunologic Allergic/Immunologic ED: Denies as per HPI, none, lip swelling, mouth swelling, throat swelling, tongue swelling or hives EXAM Physical Exam Const Vital Signs: 02/09/22 15:09 02/09/22 15:15 02/09/22 15:20 Temperature 97.3 F L 97.3 F L Temperature Source Oral Oral Pulse Rate 63 64 Respiratory Rate 20 H 18 Respiratory Effort Normal Non-Labored Respiratory Pattern Normal Blood Pressure 161/120 H 161/120 H Blood Pressure Mean 133 133 Pulse Ox 78 99 Oxygen Delivery Method Room Air Nasal Cannula Oxygen Flow Rate (L/min) 3 02/09/22 16:16 02/09/22 17:00 02/09/22 17:21 Temperature 98.2 F Temperature Source Temporal Pulse Rate 61 63 66 Respiratory Rate 17 18 18 Respiratory Effort Respiratory Pattern Blood Pressure 164/43 H 166/43 H 169/51 H Blood Pressure Mean 83 84 90 Pulse Ox 100 100 98 Oxygen Delivery Method Nasal Cannula Nasal Cannula Oxygen Flow Rate (L/min) 2 3 Positive well nourished and well developed General Appearance ED: well developed and NAD HEENT Reports TM's clear and moist mucous membranes normocephalic and atraumatic; Negative for trauma or tenderness Tympanic Membrane ED: Yes TM's clear Eyes PERRL and EOMs intact bilaterally General Eye ED: Negative for pale conjunctiva or scleral icterus Neck no lymphadenopathy, supple and no JVD General: Negative for tenderness Chest Wall inspection of chest normal and palpation of chest normal Chest: Negative for tenderness Resp normal respiratory effort and clear to auscultation bilaterally Resp Narrative: Diminished breath sounds bilaterally Effort and Inspection: Negative for respiratory distress or pain with movement Auscultation: diminished lung sounds; Negative for rhonchi or wheezes Cardio regular rate, regular rhythm, S1 normal heart sound, S2 normal heart sound and no murmurs Peripheral Pulses: pulses 2+ throughout GI normal to inspection, nondistended, normoactive bowel sounds, soft to palpation, non-tender, non-distended and no masses Back/Spine no CVA tenderness and no thoracic nor lumbar tenderness Extremity normal to inspection Extremity Narrative: +3 edema both lower extremities General Extremety ED: Yes edema General Extremity: edema Neuro oriented x3, CN's II-XII intact bilaterally, no sensory deficits noted and gait normal Sensorium / Orientation: awake, alert, oriented to person, oriented to place and oriented to time Motor Exam: strength 5/5 throughout and strength abnormal Psych mental status grossly normal Skin no rashes or lesions noted and no wounds MDM MDM MDM Narrative Medical decision making narrative: IV line established on arrival. Patient placed on nasal cannula O2. Patient has an elevated ammonia and hepatic encephalopathy. She was given lactulose 30 g p.o. Patient also noted to have bilateral pleural effusions on x-ray Elevated BNP. I suspect a component of CHF and she also does have history of COPD. Discussed case with hospitalist evaluate patient for admission as she was hypoxic on arrival with a pulse ox of 78% and she is not wearing her home O2 that she has for nighttime use. Patient will be evaluated by hospitalist for admission. I was asked to order an ABG which is pending. Lab Data Attestation: I reviewed the patient's lab results. Labs: Laboratory Results - last 24 hr 02/09/22 02/09/22 02/09/22 15:25 15:25 15:25 WBC 6.1 RBC 3.71 L Hgb 9.4 L Hct 33.0 L MCV 88.9 MCH 25.3 L MCHC 28.5 L RDW Std Deviation 59.0 H RDW Coeff of [place] 18.2 H Plt Count 115 L MPV 10.1 Immature Gran % (Auto) 0.300 Neut % (Auto) 75.0 H Lymph % (Auto) 12.2 L [place] % (Auto) 9.4 Eos % (Auto) 2.1 Baso % (Auto) 1.0 Absolute Neuts (auto) 4.6 Absolute Lymphs (auto) 0.74 L Nucleated RBC % 0 Sodium 143 Potassium 3.8 Chloride 103 Carbon Dioxide 38.0 H Anion Gap 2 L BUN 14 Creatinine 0.78 Estim Creat Clear Calc 35.99 Est GFR (MDRD) Af Amer 93 Est GFR (MDRD) Non-Af 77 BUN/Creatinine Ratio 17.9 Glucose 210 H Calcium 9.6 Total Bilirubin 0.90 AST 40 H ALT 39 Alkaline Phosphatase 179 H Ammonia B-Natriuretic Peptide 825.8 H Total Protein 6.7 Albumin 2.3 L Globulin 4.4 H Albumin/Globulin Ratio 0.5 L Urine Color Urine Clarity Urine pH Ur Specific [place] Urine Protein Urine Glucose (UA) Urine Ketones Urine Occult Blood Urine Nitrite Urine Bilirubin Urine Urobilinogen Ur Leukocyte Esterase Urine RBC Urine WBC Ur Squamous Epith Cells Urine Bacteria Hyaline Casts Urine Mucus 02/09/22 02/09/22 15:25 16:50 WBC RBC Hgb Hct MCV MCH MCHC RDW Std Deviation RDW Coeff of [place] Plt Count MPV Immature Gran % (Auto) Neut % (Auto) Lymph % (Auto) [place] % (Auto) Eos % (Auto) Baso % (Auto) Absolute Neuts (auto) Absolute Lymphs (auto) Nucleated RBC % Sodium Potassium Chloride Carbon Dioxide Anion Gap BUN Creatinine Estim Creat Clear Calc Est GFR (MDRD) Af Amer Est GFR (MDRD) Non-Af BUN/Creatinine Ratio Glucose Calcium Total Bilirubin AST ALT Alkaline Phosphatase Ammonia 62.0 H B-Natriuretic Peptide Total Protein Albumin Globulin Albumin/Globulin Ratio Urine Color Yellow Urine Clarity Clear Urine pH 6.0 Ur Specific [place] 1.020 Urine Protein 30 H Urine Glucose (UA) Normal Urine Ketones 5 H Urine Occult Blood Negative Urine Nitrite Negative Urine Bilirubin Negative Urine Urobilinogen 4 H Ur Leukocyte Esterase 25 H Urine RBC 0 SEEN Urine WBC 0-5 SEEN Ur Squamous Epith Cells 0-5 SEEN Urine Bacteria 0 SEEN Hyaline Casts 0-5 SEEN Urine Mucus 0 SEEN Radiography Chest X-Ray - ED: 1 View Diagnostic Testing: Clinical Impression(s) from Imaging Studies Chest X-Ray 02/09/22 15:21 IMPRESSION: Small bilateral pleural effusions. Electronically Signed: Clayton Medley MD at 17:29 EDT , Brain CT 02/09/22 15:28 IMPRESSION: No acute intracranial finding. MRI may be obtained if clinically indicated. Electronically Signed: Adrian Coreas MD at 16:49 EDT , 1 view chest x-ray obtained interpreted by myself as mild cardiomegaly and small bilateral pleural effusions with some mild pulmonary congestion. Official report from radiology pending. EKG Initial EKG: Attestation: I personally reviewed and interpreted this EKG as follows: Comments: Sinus rhythm with a rate of 68 bpm with right bundle branch block and old anterior infarct Discharge Plan Dx/Rx/DC Orders Clinical Impression: Acute alteration in mental status, Acute hepatic encephalopathy, Hypoxemia, CHF (congestive heart failure) Disposition Disposition: Acute Care Hospital [facility]
--- NOTE | 2022-02-09 15:28 | CT_ITS ---
STUDY: CT BRAIN WITHOUT CONTRAST REASON FOR EXAM: Female, 71 years old. mental status change RADIATION DOSAGE (If Supplied By Facility): CTDIvol = ( 47.06 ) mGy, DLP = ( 890.33 ) mGycm TECHNIQUE: Transaxial CT imaging of the brain was performed without administration of intravenous contrast material. Individualized dose optimization techniques were used for this CT. COMPARISON: 05/02/2018 FINDINGS: There is no intra-/extra-axial fluid collection, mass effect, or midline shift. The ellis/white matter junction is preserved. The basal cisterns are patent. Visualized paranasal sinuses and mastoid air cells are clear. The calvarium is intact. CT/Brain/Head without Contrast IMPRESSION: No acute intracranial finding. MRI may be obtained if clinically indicated. Electronically Signed: Adrian Coreas MD at 16:49 EDT ,
[2022-02-09] MEDS: 0.9% Normal Saline 1,000 ML 1000 ML IV (15:38)
[2022-02-09 15:44] LABS: Absolute Lymphocyte Count 0.74 X10^3/uL (0.83-4.51); Absolute Neutrophil Count 4.6 X10^3/uL (2.0-7.7); Basophil# 0.06 X10^3/uL; Eosinophil# 0.13 X10^3/uL; Eosinophils% 2.1 % (0-5); Hemoglobin 9.4 g/dL (12.0-15.0); Lymphocyte # 0.74 X10^3/ul (0.83-4.51); Lymphocyte % 12.2 % (19-41); Mean Corp Hgb Conc 28.5 g/dL (32-36); Mean Corpuscular Hgb 25.3 pg (27.0-32.0); Mean Corpuscular Volume 88.9 fL (81-99); Mean Platelet Vol. 10.1 fl (6.2-12.0); Monocyte# 0.57 X10^3/uL; Monocyte% 9.4 % (0-10); NRBC Flagged by Analyzer 0 % (0-5); Neutrophil # 4.57 X10^3/uL (2.7-7.7); Platelet Count 115 K/mm3 (150-450); RBC Distribution Width CV 18.2 % (11.6-14.6); Red Blood Count 3.71 M/mm3 (4.2-5.4); White Blood Count 6.1 K/mm3 (4.4-11.0)
[2022-02-09 15:51] LABS: ALB/GLOB Ratio 0.5 RATIO (0.9-2.4); AST(SGOT) 40 U/L (15-37); Alanine Aminotransfer ALT/SGPT 39 U/L (13-56); Albumin, Serum 2.3 g/dL (3.2-5.0); Alkaline Phosphatase 179 U/L (45-117); Anion Gap 2 (5-15); BUN 14 mg/dL (7-18); BUN/Creat Ratio 17.9 RATIO (10-20); Calcium,Total 9.6 mg/dL (8.5-10.1); Chloride 103 mmol/L (98-107); Creatinine, Serum 0.78 mg/dL (0.55-1.02); EST Glomerular Filtration Rate 77 mL/min (>60); Est Glom Filt Rate - Afr Amer 93 mL/min (>60); Estimated Creatinine Clearance 35.99 ml/min; Globulin 4.4 g/dL (2.2-4.2); Glucose 210 mg/dL (74-106); Potassium 3.8 mmol/L (3.5-5.1); Protein, Total 6.7 g/dL (6.4-8.2); Sodium Level 143 mmol/L (136-145)
[2022-02-09 16:05] LABS: BNP,B-Type NATRIURETIC PEPTIDE 825.8 pg/mL (0-100)
[2022-02-09 17:03] LABS: Bacteria 0 SEEN /hpf (None Seen); Mucous, Urine 0 SEEN /hpf (<or=2+); Red Blood Cells-Urine 0 SEEN /hpf (0-5)
[2022-02-09 17:08] LABS: Color, Urine Yellow (Yellow); Glucose, Dipstick Normal (Normal); Ketone-Dipstick 5 mg/dl (Negative); Leukocyte Esterase-Dipstick 25 /ul (Negative); Nitrite-Dipstick Negative (Negative); Occult Blood-Urine Negative /ul (Negative); Protein-Dipstick 30 mg/dl (Negative); Urine Bilirubin Dipstick Negative (Negative); Urine Clarity Clear (Clear); Urine Urobilinogen 4 mg/dl (Normal)
--- NOTE | 2022-02-09 17:22 | PCM.HP.STD ---
Documented by User: Bee Cummings NP, [employer] 02/09/22 17:39 HPI - General HPI Narrative MICHAEL HENLEY, is a 71 F who presents to the emergency room due to confusion. Daughter at bedside states patient has been hallucinating since last night and has been confused. Patient appears short of breath however she denies shortness of breath. She has had increased swelling. Daughter reports patient has had yellow drainage from both eyes. Daughter states patient was discharged from [facility] a few weeks ago following a 3-week admission related to liver failure status post TIPS procedure, hernia repair and GI bleed per daughter report. She states she has been doing fairly well since returning home. Daughter denies other known recent illness or symptoms. 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 [facility] Medical History Anemia Asthma COPD (chronic obstructive pulmonary disease) Depressive disorder Diabetes mellitus GERD (gastroesophageal reflux disease) history diagnostic hysteroscopy history thrombendarterectomy neck Hypertension Osteoarthrosis Skin lesion Home Medications glimepiride 4 mg PO TID 09/10/13 [History Last Taken 10/16/16] albuterol sulfate 2 puff INHALATION Q4H PRN PRN 07/04/16 [History Last Taken 10/16/16] clonidine HCl 0.1 mg tablet 2 tab PO BID tab 11/20/17 [History Last Taken Unknown] clonidine HCl 0.1 mg PO LUNCH 01/06/19 [History Last Taken Unknown] albuterol sulfate 2.5 mg INHALATION Q4H PRN PRN 01/30/21 [History Last Taken Unknown] furosemide 20 mg PO DAILY 01/30/21 [History Last Taken Unknown] furosemide 02/09/22 [History Last Taken Unknown] metronidazole [Flagyl] 500 mg PO BID 02/09/22 [History Last Taken Unknown] Allergy/AdvReac Type Severity Reaction Status Date / Time suture Allergy Mild rash/ Verified 06/09/21 10:11 wound dehisence amoxicillin Allergy Unknown Verified 06/09/21 10:11 azithromycin Allergy Shortness Verified 06/09/21 10:11 of breath celecoxib [From Celebrex] Allergy Other Verified 06/09/21 10:11 ciprofloxacin [From Cipro] Allergy Shortness Verified 06/09/21 10:11 of breath ciprofloxacin HCl Allergy Shortness Verified 06/09/21 10:11 [From Cipro] of breath cortisone Allergy Swelling Verified 06/09/21 10:11 doxycycline Allergy Shortness Verified 06/09/21 10:11 of breath erythromycin base Allergy Unknown Verified 06/09/21 10:11 fexofenadine [From Ashlee] Allergy Unknown Verified 06/09/21 10:11 ibuprofen Allergy Shortness Verified 06/09/21 10:11 of breath Iodinated Contrast Media Allergy Shortness Verified 06/09/21 10:11 [DYEE] of breath iodine Allergy Shortness Verified 06/09/21 10:11 of breath levofloxacin [From Levaquin] Allergy Shortness Verified 06/09/21 10:11 of breath lorazepam [From Ativan] Allergy Shortness Verified 06/09/21 10:11 of breath nitrofurantoin Allergy Shortness Verified 06/09/21 10:11 [From Macrobid] of breath nitrofurantoin Allergy Shortness Verified 06/09/21 10:11 macrocrystalline of breath [From Macrobid] Penicillins Allergy Shortness Verified 06/09/21 10:11 of breath rofecoxib [From Vioxx] Allergy Unknown Verified 06/09/21 10:11 Sulfa (Sulfonamide Allergy Shortness Verified 06/09/21 10:11 Antibiotics) of breath sulfamethoxazole Allergy Shortness Verified 06/09/21 10:11 [From Bactrim] of breath trimethoprim [From Bactrim] Allergy Shortness Verified 06/09/21 10:11 of breath amlodipine [From Norvasc] AdvReac Upset Verified 06/09/21 10:11 Stomach cat gut sutures Allergy Unknown Uncoded 06/09/21 10:11 MISC BP MED Allergy Shortness Uncoded 06/09/21 10:11 of breath Family History Mother Heart disease Brother Heart disease Surgical History History of bilateral salpingo-oophorectomy History of laparoscopic cholecystectomy History of oral surgery Social History Smoking Status: Former smoker alcohol intake: never substance use type: does not use ROS ROS Narrative Daughter at bedside reports confusion and hallucinations. Review of Systems ROS Unobtainable: due to encephalopathy Vital Signs Vital Signs Vital Signs: 02/09/22 15:09 02/09/22 15:15 02/09/22 15:20 Temperature 97.3 F L 97.3 F L Temperature Source Oral Oral Pulse Rate 63 64 Respiratory Rate 20 H 18 Respiratory Effort Normal Non-Labored Respiratory Pattern Normal Blood Pressure 161/120 H 161/120 H Blood Pressure Mean 133 133 Pulse Ox 78 99 Oxygen Delivery Method Room Air Nasal Cannula Oxygen Flow Rate (L/min) 3 02/09/22 16:16 02/09/22 17:00 02/09/22 17:21 Temperature 98.2 F Temperature Source Temporal Pulse Rate 61 63 66 Respiratory Rate 17 18 18 Respiratory Effort Respiratory Pattern Blood Pressure 164/43 H 166/43 H 169/51 H Blood Pressure Mean 83 84 90 Pulse Ox 100 100 98 Oxygen Delivery Method Nasal Cannula Nasal Cannula Oxygen Flow Rate (L/min) 2 3 Weight Weight: 185 lb Body Mass Index (BMI) 36.1 Physical Exam Const alert Constitutional Narrative: Appears dyspneic, fatigued Orientation / Consciousness: awake, oriented to person, oriented to place and oriented to time Nutritional Appearance: obese HEENT normocephalic Mouth: dry mucous membranes Eyes PERRL Eyes Narrative: Bilateral eyes with yellow crusting and matted. Neck no lymphadenopathy Resp clear to auscultation bilaterally Effort and Inspection: tachypneic Auscultation: diminished lung sounds Cardio regular rate, regular rhythm and no murmurs Peripheral Pulses: pulses 2+ throughout GI normal to inspection, nondistended, normoactive bowel sounds, non-tender and non-distended Extremity normal to inspection General Extremity: edema bilateral lower extremity Skin no rashes or lesions noted Lesions: no lesions Rashes: no rashes Trauma: no lacerations or abrasions Neuro CN's II-XII intact bilaterally, no focal motor deficits, no sensory deficits noted and deep tendon reflexes 2+ bilaterally Psych mental status grossly normal and affect normal Results Lab / Micro Data Result Diagrams: 02/09/22 15:25 02/09/22 15:25 Labs: Laboratory Results - last 24 hr 02/09/22 15:25: WBC 6.1, RBC 3.71 L, Hgb 9.4 L, Hct 33.0 L, MCV 88.9, MCH 25.3 L, MCHC 28.5 L, RDW Std Deviation 59.0 H, RDW Coeff of [place] 18.2 H, Plt Count 115 L, MPV 10.1, Immature Gran % (Auto) 0.300, Neut % (Auto) 75.0 H, Lymph % (Auto) 12.2 L, [place] % (Auto) 9.4, Eos % (Auto) 2.1, Baso % (Auto) 1.0, Absolute Neuts (auto) 4.6, Absolute Lymphs (auto) 0.74 L, Nucleated RBC % 0 02/09/22 15:25: Sodium 143, Potassium 3.8, Chloride 103, Carbon Dioxide 38.0 H, Anion Gap 2 L, BUN 14, Creatinine 0.78, Estim Creat Clear Calc 35.99, Est GFR (MDRD) Af Amer 93, Est GFR (MDRD) Non-Af 77, BUN/Creatinine Ratio 17.9, Glucose 210 H, Calcium 9.6, Total Bilirubin 0.90, AST 40 H, ALT 39, Alkaline Phosphatase 179 H, Total Protein 6.7, Albumin 2.3 L, Globulin 4.4 H, Albumin/Globulin Ratio 0.5 L 02/09/22 15:25: B-Natriuretic Peptide 825.8 H 02/09/22 15:25: Ammonia 62.0 H 02/09/22 16:50: Urine Color Yellow, Urine Clarity Clear, Urine pH 6.0, Ur Specific [place] 1.020, Urine Protein 30 H, Urine Glucose (UA) Normal, Urine Ketones 5 H, Urine Occult Blood Negative, Urine Nitrite Negative, Urine Bilirubin Negative, Urine Urobilinogen 4 H, Ur Leukocyte Esterase 25 H Radiology Impression Brain CT 02/09/22 15:28 IMPRESSION: No acute intracranial finding. MRI may be obtained if clinically indicated. Electronically Signed: Adrian Coreas MD at 16:49 EDT , Assessment & Plan Assessment/Plan (1) Acute respiratory failure with hypoxia and hypercapnia: PLAN: 1. Acute hypoxic and hypercapnic respiratory failure secondary to acute on chronic heart failure with preserved ejection fraction, complicated by underlying liver disease-ABG ordered. Continue supplement oxygen to maintain O2 above 90%. Patient documented to be 78% on room air in the emergency room. BNP 825. Chest x-ray with small bilateral pleural effusions. IV Lasix. Strict I&O. Konstantin wrap bilateral lower extremities. Obtain echo. Previous echo with EF 60%, diastolic dysfunction. 2. 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 Recent TIPS at [facility]. Ammonia level elevated. Begin lactulose. Lasix per above. 3. Hypertension-on clonidine, stable. 4. Chronic COPD-as needed albuterol aerosols. 5. Type 2 diabetes mellitus-on glimepiride. Accu-Cheks with sliding scale insulin. 6. Pulmonary hypertension/probable CODIE-recommend outpatient follow-up for PSG. 7. Bilateral bacterial conjunctivitis-Cipro eyedrops. Warm compresses 3 times daily. DVT prophylaxis- heparin sc This patient was seen by STEPHON Hernandez under the supervision of Dr. Merchant. Time spent examining patient, reviewing data and subsequent management of care: 18 minutes Documented by User: Dr. Josiah Merchant DO 02/09/22 18:13 HPI - General General Date of Admission: 02/09/22 [facility] Medical History Anemia Asthma COPD (chronic obstructive pulmonary disease) Depressive disorder Diabetes mellitus GERD (gastroesophageal reflux disease) history diagnostic hysteroscopy history thrombendarterectomy neck Hypertension Osteoarthrosis Skin lesion Home Medications glimepiride 4 mg PO TID 09/10/13 [History Last Taken 10/16/16] albuterol sulfate 2 puff INHALATION Q4H PRN PRN 07/04/16 [History Last Taken 10/16/16] clonidine HCl 0.1 mg tablet 2 tab PO BID tab 11/20/17 [History Last Taken Unknown] clonidine HCl 0.1 mg PO LUNCH 01/06/19 [History Last Taken Unknown] albuterol sulfate 2.5 mg INHALATION Q4H PRN PRN 01/30/21 [History Last Taken Unknown] furosemide 20 mg PO DAILY 01/30/21 [History Last Taken Unknown] furosemide 02/09/22 [History Last Taken Unknown] metronidazole [Flagyl] 500 mg PO BID 02/09/22 [History Last Taken Unknown] Allergy/AdvReac Type Severity Reaction Status Date / Time suture Allergy Mild rash/ Verified 06/09/21 10:11 wound dehisence amoxicillin Allergy Unknown Verified 06/09/21 10:11 azithromycin Allergy Shortness Verified 06/09/21 10:11 of breath celecoxib [From Celebrex] Allergy Other Verified 06/09/21 10:11 ciprofloxacin [From Cipro] Allergy Shortness Verified 06/09/21 10:11 of breath ciprofloxacin HCl Allergy Shortness Verified 06/09/21 10:11 [From Cipro] of breath cortisone Allergy Swelling Verified 06/09/21 10:11 doxycycline Allergy Shortness Verified 06/09/21 10:11 of breath erythromycin base Allergy Unknown Verified 06/09/21 10:11 fexofenadine [From Ashlee] Allergy Unknown Verified 06/09/21 10:11 ibuprofen Allergy Shortness Verified 06/09/21 10:11 of breath Iodinated Contrast Media Allergy Shortness Verified 06/09/21 10:11 [DYEE] of breath iodine Allergy Shortness Verified 06/09/21 10:11 of breath levofloxacin [From Levaquin] Allergy Shortness Verified 06/09/21 10:11 of breath lorazepam [From Ativan] Allergy Shortness Verified 06/09/21 10:11 of breath nitrofurantoin Allergy Shortness Verified 06/09/21 10:11 [From Macrobid] of breath nitrofurantoin Allergy Shortness Verified 06/09/21 10:11 macrocrystalline of breath [From Macrobid] Penicillins Allergy Shortness Verified 06/09/21 10:11 of breath rofecoxib [From Vioxx] Allergy Unknown Verified 06/09/21 10:11 Sulfa (Sulfonamide Allergy Shortness Verified 06/09/21 10:11 Antibiotics) of breath sulfamethoxazole Allergy Shortness Verified 06/09/21 10:11 [From Bactrim] of breath trimethoprim [From Bactrim] Allergy Shortness Verified 06/09/21 10:11 of breath amlodipine [From Norvasc] AdvReac Upset Verified 06/09/21 10:11 Stomach cat gut sutures Allergy Unknown Uncoded 06/09/21 10:11 MISC BP MED Allergy Shortness Uncoded 06/09/21 10:11 of breath Family History (Reviewed 02/09/22 @ 17:27 by Bee Cummings [employer], [employer]) Mother Heart disease Brother Heart disease Surgical History History of bilateral salpingo-oophorectomy History of laparoscopic cholecystectomy History of oral surgery Social History Smoking Status: Former smoker alcohol intake: never substance use type: does not use Results Lab / Micro Data Result Diagrams: 02/09/22 15:25 02/09/22 15:25 Charges/Coding Addendum Addendum: Patient was seen and examined today independently of Bee Cummings, she was brought to the emergency room at [facility] by her family today due to confusion and hallucinations at home. Patient has a history of cirrhosis of the liver from fatty liver, in December of this year she had a TIPS procedure done at [facility] in [place], during that hospitalization she also had a ventral hernia repair that had to be performed twice-the second time the surgery was for postop bleeding. Patient went home after approximately 2 to 3 weeks in the hospital in [place] in December 2021. According to the daughter who was present at the time my examination, she does not know the patient's medications, she states the patient is a full code including intubation, she states that during her hospitalization in [place] in December of this year the patient did have an episode of an elevated ammonia level. On examination she appeared older than her stated age, she appeared confused, she does not appear to be in any distress. Vital signs as documented. Skin warm and dry and without overt rashes. Neck without JVD, thyroid appears normal, trachea is midline, neck is supple. Lungs clear, normal air movement was noted. Heart exam notable for regular rhythm, normal sounds and absence of murmurs, rubs or gallops. Abdomen unremarkable and without evidence of organomegaly, masses, or abdominal aortic enlargement, bowel sounds are present in all 4 quadrants, no abdominal tenderness was noted. Extremities-generalized pitting edema is noted over both lower legs, no cyanosis was noted, no clubbing was noted. Neuro: Cranial nerves II through XII are grossly intact, no focal motor deficits were noted, sensation to light touch and pinprick is intact, motor exam 5/5 throughout. Psych: Patient is alert and there is evidence of moderate confusion. Labs performed in the emergency room revealed a hemoglobin of 9.4, chemistry profile showed an increased carbon dioxide at 38, glucose was 210, patient's alkaline phosphatase was elevated at 179, her ammonia level was 62, her beta natruretic peptide was 825. Patient's AST was mildly elevated at 40. Patient's urinalysis was unremarkable, patient's brain CT showed no acute intracranial finding, her chest x-ray showed bilateral pleural effusions which were small. A blood gas was ordered on the patient this is pending at the time of this dictation. Patient's pulse ox today in the emergency room on room air was 78, at the time of my examination, patient is not wearing any oxygen-she took this oxygen off-her pulse ox at this time is 99 on room air. Daughter states patient has oxygen at home but does not wear it, she is supposed to wear it at night. Impression: #1 metabolic encephalopathy-secondary to elevated ammonia level, less likely secondary to increased CO2, patient will be admitted to PCU, an ABG will be obtained to rule out hypercapnia, patient will be placed on lactulose 3 times daily. She will be seen by PT and OT #2 acute congestive heart failure-type unknown, patient will be placed on IV Lasix, she will have an echocardiogram performed, patient does have a history of pulmonary hypertension. #3 chronic cirrhosis of the liver secondary to fatty liver-status post TIPS procedure December 2021-complicates care, prognosis, and recovery, patient will need to be discharged home on lactulose daily #4 hypoxia-patient's pulse ox will be monitored, she is currently on supplemental oxygen #5 chronic obstructive pulmonary disease-patient will be placed on DuoNeb aerosols #6 bilateral conjunctivitis of the eye-patient's daughter states that patient was placed on prednisone eyedrops by the [facility] in December, she then followed up with her eye doctor locally and was taken off these eyedrops, patient's daughter states that the patient was told she had dry eye and was given drops for this. I will place the patient on Cipro eyedrops for now. #7 essential hypertension-patient's home medications are not known at this time, they will need to be ordered when we are sure of her medications #8 chronic anemia-etiology unclear, iron studies will be ordered tomorrow morning I have reviewed Bee Cummings's history and physical including her medical assessment and plan of care and with the above additions endorse it. Total clinical time spent by myself addressing the patient's issues, reviewing the patient's medical data, and collaborating with the patient's care team: 55 minutes Visit Charges Inpatient E&M: 30918 Init Hosp L3
[2022-02-09] MEDS: Lactulose 20 GM/30 ML UDC 30 GM PO (17:28)
[2022-02-09 17:32] LABS: Hyaline Cast 0-5 SEEN /lpf (0-5); Squamous Epithelial Cells - UA 0-5 SEEN /hpf (5-10); White Blood Cells 0-5 SEEN /hpf (0-5)
[2022-02-09 17:58] LABS: International Normalized Ratio 1.4; Prothrombin Time (Protime)PT. 16.7 SECONDS (11.7-14.9)
[2022-02-09 18:11] LABS: Allen Test Positive; Base Excess -6 mmol/L (-2 to +2); Bicarbonate 17.7 mmol/L (22-26); Blood Gas Specimen Type ART; O2 Delivery Device Cannula; PO2 140 mmHG (75-100); SITE L Radial; SO2 99 % (95-99); Total Carbon Dioxide 19 mmol/L; pCO2 25.9 mmHg (35-45); pH 7.44 (7.35-7.45)
[2022-02-09 18:50] LABS: Bedside Glucose 166 mg/dL (74-106)
[2022-02-09] MEDS: Ciprofloxacin 0.3% 2.5ml Bottle 2 DRP EACH EYE (21:06)
[2022-02-09] MEDS: Atorvastatin Calcium 40 MG Tablet PO (21:07)
[2022-02-09] MEDS: cloNIDine HCl 0.2 MG Tablet PO (21:07)
[2022-02-09] MEDS: Heparin Injection (Vial) 5,000 UNIT/ML VIAL 5000 UNIT SC (21:07)
[2022-02-09] MEDS: Labetalol 200 MG Tablet PO (21:07)
[2022-02-09] MEDS: Furosemide 40 MG/4 ML Vial IV (21:07)
[2022-02-09] MEDS: 0.9% Saline Lock 10 ML Syringe IV (21:07)
[2022-02-09] MEDS: Lactulose 20 GM/30 ML UDC PO (21:07)
[2022-02-09] MEDS: Insulin Lispro 100 UNIT/ML INSULN.PEN SC (21:13)
[2022-02-09 21:26] LABS: Bedside Glucose 237 mg/dL (74-106)
[2022-02-09] MEDS: Nystatin Powder 15gm Bottle 1 APPLIC TOPICAL (22:40)
[2022-02-10] VITALS (14 sets, daily range): BP systolic 127–147; BP diastolic 45–103; PULSE 59–84; RESP 16–20; TEMP 36.7–36.9; O2SAT 80–97
--- NOTE | 2022-02-10 05:55 | ECHOD_ITS ---
Reason For Study: CHF Procedure This was a 2D Doppler, Color Flow transthoracic echocardiogram. The study was technically difficult. Exam performed in department. Left Ventricle Normal LV size. Left ventricular systolic function is hyperdynamic. The estimated ejection fraction is 75 %. No regional wall motion abnormalities noted. Right Ventricle Normal RV size. Normal systolic function. Atria The left atrium is mildly enlarged. Normal right atrium. No doppler evidence for ASD. Mitral Valve There is moderate to severe mitral annular calcification. Extension of the mitral annular calcification on the base of the posterior mitral valve leaflet. Mild (1+) mitral valve insufficiency. Tricuspid Valve Normal tricuspid valve. Mild to moderate (1-2+) tricuspid valve insufficiency. Right ventricular systolic pressure estimated to be 44 mmHg. Aortic Valve Trisinus/trileaflet aortic valve. Mild focal aortic valve calcification. Pulmonic Valve The pulmonic valve is not well visualized. Trivial pulmonic valve insufficiency. Great Vessels Normal sized aortic root. Pericardium/Pleural Trivial pericardial effusion. There are no echocardiographic indications of cardiac tamponade. MMode/2D Measurements & Calculations LVIDd: 4.4 cm IVSd: 0.96 cm Ao root diam: 3.1 cm LVIDs: 2.2 cm LVPWd: 0.90 cm RVDd: 4.0 cm FS: 50.1 % LAV(MOD-sp2): 55.3 ml LVAd ap4: 26.9 cm2 LVAd ap2: 27.6 cm2 LVLd ap4: 7.9 cm LVLd ap2: 7.1 cm EDV(MOD-sp4): 75.6 ml EDV(MOD-sp2): 88.4 ml EDV(sp4-el): 77.3 ml EDV(sp2-el): 90.6 ml LVAs ap4: 11.2 cm2 LVAs ap2: 13.2 cm2 LVLs ap4: 5.7 cm LVLs ap2: 6.3 cm ESV(MOD-sp4): 21.5 ml ESV(MOD-sp2): 23.4 ml ESV(sp4-el): 18.6 ml ESV(sp2-el): 23.5 ml EF(MOD-sp4): 71.6 % EF(MOD-sp2): 73.6 % EF(sp4-el): 76.0 % SV(MOD-sp4): 54.1 ml SV(MOD-sp2): 65.0 ml SV(sp4-el): 58.8 ml LA Area_phl: 21.4 cm2 RA A4 area: 21.5 cm2 Doppler Measurements & Calculations MV E max dairn: 125.8 cm/sec Lat Peak E' Darin: 4.1 cm/sec Med Peak E' Darin: 3.7 cm/sec MV A max darin: 98.3 cm/sec E/E' lat: 30.9 E/E' med: 33.6 MV E/A: 1.3 Ao V2 max: 205.1 cm/sec PA V2 max: 148.1 cm/sec TR max darin: 319.5 cm/sec Ao max P.8 mmHg TR max P.8 mmHg ECHO/Echo Complete Interpretation Summary The study was technically difficult. Left ventricular systolic function is hyperdynamic. The estimated ejection fraction is 75 %. The left atrium is mildly enlarged. There is moderate to severe mitral annular calcification. Extension of the mitral annular calcification on the base of the posterior mitr al valve leaflet. Mild (1+) mitral valve insufficiency. Mild to moderate (1-2+) tricuspid valve insufficiency. Mild focal aortic valve calcification. Trivial pulmonic valve insufficiency. Trivial pericardial effusion. There are no echocardiographic indications of cardiac tamponade. Right ventricular systolic pressure estimated to be 44 mmHg. Transmitral diastolic flow velocities suggest diastolic dysfunction (pseudonorm al pattern). Ordering Physician: Josiah Merchant Referring Physician: MD Josiah Smith Performed By: Suzanne Bailey RCS
[2022-02-10 06:29] LABS: Absolute Lymphocyte Count 0.67 X10^3/uL (0.83-4.51); Absolute Neutrophil Count 4.7 X10^3/uL (2.0-7.7); Basophil# 0.05 X10^3/uL; Basophil% 0.8 % (0-1); Eosinophil# 0.13 X10^3/uL; Eosinophils% 2.1 % (0-5); Hematocrit 31.4 % (37-47); Hemoglobin 8.8 g/dL (12.0-15.0); Lymphocyte # 0.67 X10^3/ul (0.83-4.51); Lymphocyte % 10.9 % (19-41); Mean Corpuscular Hgb 25.1 pg (27.0-32.0); Mean Corpuscular Volume 89.7 fL (81-99); Mean Platelet Vol. 10.6 fl (6.2-12.0); Monocyte# 0.57 X10^3/uL; Monocyte% 9.2 % (0-10); Neutrophil # 4.73 X10^3/uL (2.7-7.7); Neutrophil % 76.7 % (47-70); POSITIVE COUNT YES; Platelet Count 96 K/mm3 (150-450); RBC Distribution Width CV 18.1 % (11.6-14.6); RBC Distribution Width SD 60.2 fl (35.1-43.9); White Blood Count 6.2 K/mm3 (4.4-11.0)
[2022-02-10 06:40] LABS: Differential Indicated SCAN CRITERIA MET
[2022-02-10 06:55] LABS: ALB/GLOB Ratio 0.5 RATIO (0.9-2.4); AST(SGOT) 41 U/L (15-37); Alanine Aminotransfer ALT/SGPT 40 U/L (13-56); Alkaline Phosphatase 166 U/L (45-117); Anion Gap 2 (5-15); BUN 13 mg/dL (7-18); BUN/Creat Ratio 19.6 RATIO (10-20); Calcium,Total 9.1 mg/dL (8.5-10.1); Chloride 103 mmol/L (98-107); Creatinine, Serum 0.66 mg/dL (0.55-1.02); EST Glomerular Filtration Rate 93 mL/min (>60); Est Glom Filt Rate - Afr Amer 112 mL/min (>60); Estimated Creatinine Clearance 35.99 ml/min; Globulin 3.9 g/dL (2.2-4.2); Glucose 186 mg/dL (74-106); Iron 31 ug/dL (50-170); Iron Binding Capacity,Total 329 ug/dL (250-450); PERCENT IRON SATURATION 9.4 % (15.0-55.0); Potassium 3.8 mmol/L (3.5-5.1); Protein, Total 5.9 g/dL (6.4-8.2); Sodium Level 141 mmol/L (136-145)
[2022-02-10 06:58] LABS: Differential Comment SCANNED
[2022-02-10] MEDS: Lactulose 20 GM/30 ML UDC PO ×3 (07:02→19:05)
[2022-02-10] MEDS: Ciprofloxacin 0.3% 2.5ml Bottle 2 DRP EACH EYE ×4 (07:02→22:42)
[2022-02-10] MEDS: Insulin Lispro 100 UNIT/ML INSULN.PEN SC ×3 (07:03→20:52)
[2022-02-10] MEDS: Furosemide 40 MG/4 ML Vial IV ×4 (07:04→20:37)
[2022-02-10] MEDS: Nystatin Powder 15gm Bottle 1 APPLIC TOPICAL ×3 (07:05→20:38)
[2022-02-10 07:06] LABS: Bedside Glucose 166 mg/dL (74-106)
[2022-02-10] MEDS: Ipratropium/Albuterol Sulfate 3 ML AMPUL.NEB INHALATION ×4 (07:19→19:35)
--- NOTE | 2022-02-10 09:39 | VDLE_ITS ---
Reason For Study: Swelling RIGHT LEFT GSV is normal. GSV is normal. CFV is compressible, spontaneous, competent CFV is compressible, spontaneous, competent, and demonstrates pulsatile venous flow. and demonstrates pulsatile venous flow. FV is compressible, spontaneous, competent FV is compressible, spontaneous, competent and demonstrates pulsatile venous flow. and demonstrates pulsatile venous flow. POP V is compressible, spontaneous, competent POP V is compressible, spontaneous, competent and demonstrates pulsatile venous flow. and demonstrates pulsatile venous flow. T/P Trunk is compressible. T/P Trunk is compressible. PTV is compressible. PTV is compressible. RT PerV is compressible. LT PerV is compressible. Procedure This is a venous duplex using B-mode, color flow and spectral Doppler. Exam performed portable in patient room. A preliminary report was called and/or faxed to [employer]. VL/Venous Duplex US - Royal Extrem Interpretation Summary No evidence for acute deep venous thrombosis bilateral lower extremities Patent and compressible bilateral great saphenous veins Pulsatile venous flow pattern noted bilaterally consistent with proximal venous hypertension or obstruction. Clinical correlation would be appropriate. Ordering Physician: Irma Desouza Referring Physician: MD Sarah Josiah Performed By: Arline Wolfe RVT
[2022-02-10] MEDS: Labetalol 200 MG Tablet PO ×2 (10:19→20:38)
[2022-02-10] MEDS: cloNIDine HCl 0.2 MG Tablet PO ×2 (10:19→20:36)
[2022-02-10] MEDS: Heparin Injection (Vial) 5,000 UNIT/ML VIAL 5000 UNIT SC ×2 (10:19→20:35)
[2022-02-10] MEDS: Spironolactone 25 MG Tablet PO ×2 (10:20→20:36)
--- NOTE | 2022-02-10 11:36 | PN.HOSP_ITS ---
Documented by User: Bee Cummings DENTAL INSTRUMENT MAKER, DENTAL INSTRUMENT MAKER-C 02/10/22 11:45 Subjective Subjective Patient seen and examined. More alert today. Conversing appropriately. Denies shortness of breath or other symptoms. Objective Data Objective Data Vital Signs: Vital Signs Temp Pulse Resp BP Pulse Ox 98.5 F 84 16 147/95 H 97 02/10/22 03:00 02/10/22 07:22 02/10/22 07:22 02/10/22 03:00 02/10/22 07:41 Oxygen Flow Rate (L/min) 2 Oxygen Delivery Method Nasal Cannula Weight: 174 lb 13.225 oz Body Mass Index (BMI) 33.5 Intake & Output: Intake and Output for Last 24 Hours 02/08/22 02/09/22 02/10/22 23:59 23:59 23:59 Intake Total 1000 / 1000 Balance 1000 / 1000 Lab / Micro Data Result Diagrams: 02/10/22 06:10 02/10/22 06:10 Labs: Laboratory Results - last 24 hr 02/09/22 15:25: WBC 6.1, RBC 3.71 L, Hgb 9.4 L, Hct 33.0 L, MCV 88.9, MCH 25.3 L , MCHC 28.5 L, RDW Std Deviation 59.0 H, RDW Coeff of [place] 18.2 H, Plt Count 115 L, MPV 10.1, Immature Gran % (Auto) 0.300, Neut % (Auto) 75.0 H, Lymph % (Auto) 12.2 L, [place] % (Auto) 9.4, Eos % (Auto) 2.1, Baso % (Auto) 1.0, Absolute Neuts (auto) 4.6, Absolute Lymphs (auto) 0.74 L, Nucleated RBC % 0 02/09/22 15:25: Sodium 143, Potassium 3.8, Chloride 103, Carbon Dioxide 38.0 H, Anion Gap 2 L, BUN 14, Creatinine 0.78, Estim Creat Clear Calc 35.99, Est GFR (MDRD) Af Amer 93, Est GFR (MDRD) Non-Af 77, BUN/Creatinine Ratio 17.9, Glucose 210 H, Calcium 9.6, Total Bilirubin 0.90, AST 40 H, ALT 39, Alkaline Phosphatase 179 H, Total Protein 6.7, Albumin 2.3 L, Globulin 4.4 H, Albumin/Globulin Ratio 0.5 L 02/09/22 15:25: B-Natriuretic Peptide 825.8 H 02/09/22 15:25: Ammonia 62.0 H 02/09/22 15:25: PT 16.7 H, INR 1.4 02/09/22 16:50: Urine Color Yellow, Urine Clarity Clear, Urine pH 6.0, Ur Specific [place] 1.020, Urine Protein 30 H, Urine Glucose (UA) Normal, Urine Ketones 5 H, Urine Occult Blood Negative, Urine Nitrite Negative, Urine Bilirubin Negative, Urine Urobilinogen 4 H, Ur Leukocyte Esterase 25 H, Urine RBC 0 SEEN, Urine WBC 0-5 SEEN, Ur Squamous Epith Cells 0-5 SEEN, Urine Bacteria 0 SEEN, Hyaline Casts 0-5 SEEN, Urine Mucus 0 SEEN 02/09/22 18:46: POC Glucose 166 H 02/09/22 21:09: POC Glucose 237 H 02/10/22 06:10: WBC 6.2, RBC 3.50 L, Hgb 8.8 L, Hct 31.4 L, MCV 89.7, MCH 25.1 L , MCHC 28.0 L, RDW Std Deviation 60.2 H, RDW Coeff of [place] 18.1 H, Plt Count 96 L , MPV 10.6, Immature Gran % (Auto) 0.300, Neut % (Auto) 76.7 H, Lymph % (Auto) 10.9 L, [place] % (Auto) 9.2, Eos % (Auto) 2.1, Baso % (Auto) 0.8, Absolute Neuts (auto) 4.7, Absolute Lymphs (auto) 0.67 L, Nucleated RBC % 1.0, Differential Comment SCANNED 02/10/22 06:10: Sodium 141, Potassium 3.8, Chloride 103, Carbon Dioxide 36.0 H, Anion Gap 2 L, BUN 13, Creatinine 0.66, Estim Creat Clear Calc 35.99, Est GFR (MDRD) Af Amer 112, Est GFR (MDRD) Non-Af 93, BUN/Creatinine Ratio 19.6, Glucose 186 H, Calcium 9.1, Iron 31 L, TIBC 329, Iron Saturation 9.4 L, Total Bilirubin 1.00, AST 41 H, ALT 40, Alkaline Phosphatase 166 H, Total Protein 5.9 L, Albumin 2.0 L, Globulin 3.9, Albumin/Globulin Ratio 0.5 L 02/10/22 07:01: POC Glucose 166 H ABG Data ABG results: ABG 02/09/22 18:03 Specimen Type ART Sample Site L Radial pH 7.44 Bicarbonate Actual 17.7 L Total CO2 19 Base Excess -6 L O2 Saturation 99 ABG pCO2 25.9 L ABG pO2 140 H Eliecer Test Positive O2 Delivery Device Cannula Liter Flow 3.0 Radiography Diagnostic Testing: Radiology Impression Chest X-Ray 02/09/22 15:21 IMPRESSION: Small bilateral pleural effusions. Electronically Signed: Clayton Medley MD at 17:29 EDT , Brain CT 02/09/22 15:28 IMPRESSION: No acute intracranial finding. MRI may be obtained if clinically indicated. Electronically Signed: Adrian Coreas MD at 16:49 EDT , Physical Exam Const alert and oriented x3 Orientation / Consciousness: awake, oriented to person, oriented to place and oriented to time HEENT normocephalic Mouth: dry mucous membranes Eyes PERRL, EOMs intact bilaterally and conjunctivae normal Neck no lymphadenopathy Resp clear to auscultation bilaterally Auscultation: diminished lung sounds Cardio regular rate and regular rhythm Peripheral Pulses: pulses 2+ throughout GI normal to inspection, nondistended, normoactive bowel sounds, non-tender and n on-distended Extremity normal to inspection General Extremity: edema bilateral lower extremity Skin no rashes or lesions noted Lesions: no lesions Rashes: no rashes Trauma: no lacerations or abrasions Neuro CN's II-XII intact bilaterally, no focal motor deficits, no sensory deficits noted and deep tendon reflexes 2+ bilaterally Psych mental status grossly normal and affect normal Assessment & Plan Assessment/Plan (1) Acute hepatic encephalopathy: (2) CHF (congestive heart failure): PLAN: 1. Acute hypoxic respiratory failure secondary to acute on chronic heart failure with preserved ejection fraction, complicated by underlying liver disease- Continue supplement oxygen to maintain O2 above 90%. Patient document ed to be 78% on room air in the emergency room. BNP 825. Chest x-ray with small bilateral pleural effusions. IV Lasix. Strict I&O. Konstanitn wrap bilateral lower extremities. Previous echo with EF 60%, diastolic dysfunction. Repeat echo pending. 2. 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 Recent TIPS at [facility]. Ammonia level elevated. Continue lactulose. Lasix per above. GI consult. Initiated on spironolactone. Encephalopathy improved. 3. Hypertension-on clonidine, stable. 4. Chronic COPD-as needed albuterol aerosols. 5. Type 2 diabetes mellitus-on glimepiride. Accu-Cheks with sliding scale insulin. 6. Pulmonary hypertension/probable CODIE-recommend outpatient follow-up for PSG. 7. Bilateral bacterial conjunctivitis-Cipro eyedrops. Warm compresses 3 times daily. 8. Normocytic anemia/iron deficiency anemia-begin iron supplementation. 9. Hyperlipidemia-continue statin. DVT prophylaxis- heparin sc This patient was seen by Bee Cummings NP-C under the supervision of Dr. Desouza. Time spent examining patient, reviewing data and subsequent management of care: 13 minutes Documented by User: Dr. Irma Desouza DO 02/10/22 15:30 Subjective Subjective This patient was seen in conjunction with Bee Cummings NP. The following represents my independent history and physical examination. Please see below for addendum the above. The patient was confused upon my examination however her mental status did clear as the day went on. She did acknowledge her recent admission until January 12 at [facility] at which time a TIPS was per done. Patient and family were unclear why she has cirrhosis however upon review it appears she has Núñez as we did expect on admission. Patient and her family reported that an ultrasound was to be performed for the swelling in her legs. I suspect the thought was to rule out DVT and this has been ordered at this time given her leg edema is still present. She has followed up with multiple doctors including hepatology and vascular surgery at [facility]. Objective Data Lab / Micro Data Result Diagrams: 02/10/22 06:10 02/10/22 06:10 Physical Exam Const alert and no apparent distress Constitutional Narrative: Obese, elderly white female sitting up in bed eating breakfast, family is at bedside, patient was slightly confused upon my examination however her mentation did clear apparently as the day went on and she was alert and oriented and appropriate for nursing later on in the day, appeared comfortable at the time of my evaluation Exam Limitations: altered mental status Nutritional Appearance: obese HEENT head/scalp atraumatic and moist oral mucous membranes HEENT Narrative: Mallampati is 3, dentition is fair, no thrush Head and Scalp: normocephalic Eyes PERRL and EOMs intact bilaterally Eyes Narrative: Conjunctive are pale bilaterally, no icterus noted Neck no lymphadenopathy, supple and no JVD Neck Narrative: Trachea midline, neck is short and thick, no thyroid enlargement noted on exam Resp normal respiratory effort, no retractions and no use of accessory muscles Resp Narrative: Diminished at the bases bilaterally, patient is on nasal cannula at 2 L however breathing appears comfortable except when she moves around more in bed, no significant tachypnea noted Cardio regular rate, regular rhythm, S1 normal heart sound, S2 normal heart sound, no murmurs, no rub, no gallops, no clicks and no JVD Cardio Narrative: Heart tones distant secondary to body habitus GI normal to inspection, nondistended, normoactive bowel sounds, soft to palpation, non-tender and non-distended Extremity Extremity Narrative: 1+ bilateral lower extremity pitting edema, no cyanosis or clubbing Peripheral Pulses: Yes pulses 2+ throughout Skin no rashes or lesions noted, no wounds, skin turgor normal, no jaundice, no petechiae and no mottling Skin Narrative: Skin is pale Neuro moves all extremities and no focal motor deficits Neuro Narrative: Generalized weakness Sensorium / Orientation: awake and alert Speech: speech normal Psych affect normal Assessment & Plan Assessment/Plan (1) Acute hepatic encephalopathy: (2) Acute alteration in mental status: (3) Acute respiratory failure with hypoxia and hypercapnia: PLAN: Assessment: Acute hypoxic respiratory failure secondary to acute on chronic heart failure with preserved ejection fraction/liver cirrhosis Hepatic encephalopathy 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 status post TIPS History of esophageal varices Splenic vein thrombosis-resolved Partial portal vein thrombus Bilateral bacterial conjunctivitis Chronic normocytic anemia Chronic thrombocytopenia Chronic anemia Hyperlipidemia DM-2 COPD Hypertension PAH-suspected who group 3 Bilateral lower extremity edema Plan: -Lactulose initiated however I really doubt that the ammonia 62 was causing her mental status change -Clinically better today without any significant stooling -Patient with partial portal vein thrombus however the decision was made by her primary vascular surgeon and lead generator not to anticoagulate her given her risk with placing her on anticoagulation is greater than benefit -Continue Lasix as ordered -Add Aldactone 25 mg twice daily -Monitor renal function -We will have GI follow her while she is here given her recent TIPS -Continue beta-paris for blood pressure and history of esophageal varices -Platelet count and hemoglobin are stable -Recommend outpatient polysomnography -Suspect respiratory issues are related to a combination of her chronic diastol ic/right-sided heart failure and liver cirrhosis -Repeat CBC and BMP in a.m. -Bilateral lower extremity Dopplers are pending to rule out DVT secondary to lower extremity edema Charges/Coding Visit Charges Inpatient E&M: 76475 Subs Hosp L3
[2022-02-10 13:06] LABS: Bedside Glucose 207 mg/dL (74-106)
--- NOTE | 2022-02-10 14:40 | CASEMGMT ---
LISA SALCIDO called daughter Briseyda for initial transition planning/care coordination assessment as patient is confused at this time. LISA SALCIDO introduced self and role at [facility]. Briseyda willing to participate in assessment and is able to answer all questions appropriately. Care providers, pharmacy, and demographics verified. Briseyda wishes for patient to discharge home with resumption of HHC through [facility]. Briseyda states she has no further needs or concerns at this time. CM to follow for discharge planning needs that may arise. PCP: Sarah Specialists: Per daughter patient sees several specialist at [facility] Preferred Pharmacy: [facility] Insurance: [employer] [facility] Prescription Benefit: yes Living Will/HPOA: yes per Briseyda she is HPOA LNOK: , daughter Living Arrangements: Patient lives with in a single story home with ramp to enter the home. Per Elkin, family assists with ADLs Transportation: family DME/HHC: Patient has shower chair, BSC, grab bars, walker, nebulizer, and home concentrator at home. Per Briseyda she is not sure whom concentrator is through but states that patient has not used it in some time. No previous SNF. Patient is active with [facility] for prison, PT, and OT. LISA SALCIDO updated Tere Galicia at [facility] of patient's admission. Disposition Plan: Patient to discharge home with resumption of HHC, family support, and follow-up plans in place Arline RANDOLPH, RN, CM
--- NOTE | 2022-02-10 15:04 | CASEMGMT ---
Per patient's daughter, Briseyda patient had a Healthcare Power of Assistant Professor Of Archaeology. Briseyda indicates she is the Healthcare Power of Assistant Professor Of Archaeology, however they do not know where patient put the documents. Lety CLIFTON
--- NOTE | 2022-02-10 15:38 | CHAPLAIN ---
Type of Pastoral Visit _x__ Initial Visit ___ Follow-up Visit ___ On-call Visit ___ General Patient Visit ___ Spiritual Assessment ___ Family Conference ___ Bereavement ___ Rapid Response ___ Code Blue ___ Other (describe below) Pastoral Care Referral From _x__ Patient ___ Family ___ Nurse ___ Physician ___ Topology Teacher ___ Trailer Sections Assembler ___ Other (describe below) Sacrament/Intervention ___ Active listening ___ Anointing ___ Sabianism ___ Bereavement ___ Communion ___ Deepa exploration ___ ___ Life review ___ Prayer ___ Reconciliation ___ Sacrament of Sick ___ Supportive presence ___ Wedding ___ Other (describe below) Pastoral Comments on second attempt to visit the RN was taking vitals; both RN and this lens edge grinder machine tried to get patient to speak but pt would only respond momentarily before she went back to sleep again; left a calling card; told pt this lens edge grinder machine would come back tomorrow
[2022-02-10 18:21] LABS: Bedside Glucose 136 mg/dL (74-106)
--- NOTE | 2022-02-10 19:04 | CON.PCM_ITS ---
Assessment & Plan Assessment/Plan (1) Bicytopenia: PLAN: Bicytopenia secondary to cirrhosis. Her hemoglobin is still d ecreasing. However and not now would was prior to her undergoing TIPS procedure. She has not seen any signs of GI blood loss. She has not had an upper endoscopy since undergoing a TIPS procedure to see if her varices have resolved. (2) Hepatic encephalopathy: PLAN: I am concerned about her severe hypoalbuminemia contributing to hepatic encephalopathy. Recommend lactulose 20 cc every 4 to 6 hours and Xifaxan therapy 550 mg twice a day. (3) Cirrhosis: PLAN: She is known to have splenic vein thrombosis and portal vein thrombosis. I do not know if the TIPS procedure was enough to decompress the mesenteric veins. I do not know if there was any sign of in-stent thrombosis that may have led to decompensated liver disease. Recommend 5 mg of vitamin K and recheck her INR. Last INR was 1.4. She should get an upper endoscopy while she is here to make sure that the reason she decompensated and became more encephalopathic was not secondary to a slow GI bleed secondary to portal gastropathy, esophageal varices or gastric varices. (4) Ascites: PLAN: She has not had any paracentesis since undergone a TIPS procedure. She is on diuretic therapy. I do not think she needs a therapeutic paracentesis at this time as she is getting better. Her legs are swollen and it is possibly secondary to the tips procedure. There could be in-stent thrombosis in the setting of portal vein thrombosis and splenic vein thrombosis. HPI Consult Data Date of Consult: 02/10/22 HPI Narrative HPI Narrative: MICHAEL HENLEY, is a 71 F with past medical history of Núñez cirrhosis secondary to type 2 diabetes and obesity. Her cirrhosis and complicated by portal vein thrombosis, splenic vein thrombosis, esophageal varices, ascites, encephalopathy. She presented to the emergency room with worsening shortness of breath and fatigue. She recently was admitted at [facility] for a TIPS procedure. Complications involving the TIPS procedure included worsening encephalopathy. She has still had ascites despite having the TIPS procedure. She has not had a paracentesis since having the TIPS placed. When she was admitted to the hospital she was discovered to have severe hypoalbuminemia, hepatic encephalopathy with a ammonia level of 68. We do not know her baseline ammonia level and what it was prior to her undergoing TIPS procedure and after TIPS procedure. She does take diuretic therapy on a daily basis. She does not take Xifaxan and takes lactulose once a day. She does not know if she has any problems with hypomagnesemia, hypokalemia as causes of her worsening encephalopathy. She does notice she has been anemic and thrombocytopenic. She has not received blood transfusions or platelet transfusions. [facility] Medical History (Updated 02/10/22 @ 19:[address] Davison Friend, DO) Abdominal pain Anemia Asthma Cirrhosis COPD (chronic obstructive pulmonary disease) Depressive disorder Diabetes mellitus GERD (gastroesophageal reflux disease) Hernia history diagnostic hysteroscopy history thrombendarterectomy neck Hypertension Osteoarthrosis Portal vein thrombosis Rectus sheath hematoma Skin lesion Splenic vein thrombosis Thrombocytopenia Home Medications albuterol sulfate 2 puff INHALATION Q4H PRN PRN 07/04/16 [History Last Taken 10/16/16] clonidine HCl 0.1 mg tablet 0.1 mg PO TID tab 11/20/17 [History Last Taken 02/08/22] clonidine HCl 0.2 mg PO BID 01/06/19 [History Last Taken 02/09/22 08:00] albuterol sulfate 2.5 mg INHALATION Q4H PRN PRN 01/30/21 [History Last Taken Unknown] furosemide 30 mg PO BID 01/30/21 [History Last Taken 02/09/22 08:00] artificial tears solution 1 drp OPHTHALMIC (EYE) TID 02/09/22 [History Last Taken 02/08/22] atorvastatin [Lipitor] 40 mg PO QHS 02/09/22 [History Last Taken 02/08/22] labetalol 200 mg PO BID 02/09/22 [History Last Taken 02/09/22 08:00] Allergy/AdvReac Type Severity Reaction Status Date / Time suture Allergy Mild rash/ Verified 06/09/21 10:11 wound dehisence amoxicillin Allergy Unknown Verified 06/09/21 10:11 azithromycin Allergy Shortness Verified 06/09/21 10:11 of breath celecoxib [From Celebrex] Allergy Other Verified 06/09/21 10:11 ciprofloxacin [From Cipro] Allergy Shortness Verified 06/09/21 10:11 of breath ciprofloxacin HCl Allergy Shortness Verified 06/09/21 10:11 [From Cipro] of breath cortisone Allergy Swelling Verified 06/09/21 10:11 doxycycline Allergy Shortness Verified 06/09/21 10:11 of breath erythromycin base Allergy Unknown Verified 06/09/21 10:11 fexofenadine [From Ashlee] Allergy Unknown Verified 06/09/21 10:11 ibuprofen Allergy Shortness Verified 06/09/21 10:11 of breath Iodinated Contrast Media Allergy Shortness Verified 06/09/21 10:11 [DYEE] of breath iodine Allergy Shortness Verified 06/09/21 10:11 of breath levofloxacin [From Levaquin] Allergy Shortness Verified 06/09/21 10:11 of breath lorazepam [From Ativan] Allergy Shortness Verified 06/09/21 10:11 of breath nitrofurantoin Allergy Shortness Verified 06/09/21 10:11 [From Macrobid] of breath nitrofurantoin Allergy Shortness Verified 06/09/21 10:11 macrocrystalline of breath [From Macrobid] Penicillins Allergy Shortness Verified 06/09/21 10:11 of breath rofecoxib [From Vioxx] Allergy Unknown Verified 06/09/21 10:11 Sulfa (Sulfonamide Allergy Shortness Verified 06/09/21 10:11 Antibiotics) of breath sulfamethoxazole Allergy Shortness Verified 06/09/21 10:11 [From Bactrim] of breath trimethoprim [From Bactrim] Allergy Shortness Verified 06/09/21 10:11 of breath amlodipine [From Norvasc] AdvReac Upset Verified 06/09/21 10:11 Stomach cat gut sutures Allergy Unknown Uncoded 06/09/21 10:11 MISC BP MED Allergy Shortness Uncoded 06/09/21 10:11 of breath Family History (Reviewed 02/09/22 @ 17:27 by Bee Cummings PALLET STONE POSITIONER, PALLET STONE POSITIONER-C) Mother Heart disease Brother Heart disease Surgical History (Updated 02/09/22 @ 18:15 by Luly Lozano) History of bilateral salpingo-oophorectomy History of laparoscopic cholecystectomy History of oral surgery S/P TIPS (transjugular intrahepatic portosystemic shunt) Social History Smoking Status: Former smoker alcohol intake: never substance use type: does not use ROS Gastrointestinal Gastrointestinal: Reports other Details: Confusion and abdominal distention Physical Exam Const alert General Appearance: cooperative Orientation / Consciousness: oriented to person HEENT hearing grossly normal bilaterally Head and Scalp: normal to inspection Face and Sinus: face symmetric Nose: external nose normal Mouth: oral and palatal mucosa normal Eyes conjunctivae normal General Eye: normal appearance of both eyes Neck full ROM General: normal visual inspection Lymph Lymphatic: no lymphadenopathy noted Chest inspection of chest normal and palpation of chest normal Chest: symmetrical chest wall rise Resp normal respiratory effort Effort and Inspection: able to speak in complete sentences Cardio regular rate GI non-distended Percussion: normal to percussion Rectal Exam: deferred Neuro Speech: speech normal Gait (Neuro): normal gait Lab / Micro Data Result Diagrams: 02/10/22 06:10 02/10/22 06:10 Labs: Laboratory Results - last 24 hr 02/09/22 21:09: POC Glucose 237 H 02/10/22 06:10: WBC 6.2, RBC 3.50 L, Hgb 8.8 L, Hct 31.4 L, MCV 89.7, MCH 25.1 L , MCHC 28.0 L, RDW Std Deviation 60.2 H, RDW Coeff of [place] 18.1 H, Plt Count 96 L , MPV 10.6, Immature Gran % (Auto) 0.300, Neut % (Auto) 76.7 H, Lymph % (Auto) 10.9 L, [place] % (Auto) 9.2, Eos % (Auto) 2.1, Baso % (Auto) 0.8, Absolute Neuts (auto) 4.7, Absolute Lymphs (auto) 0.67 L, Nucleated RBC % 1.0, Differential Comment SCANNED 02/10/22 06:10: Sodium 141, Potassium 3.8, Chloride 103, Carbon Dioxide 36.0 H, Anion Gap 2 L, BUN 13, Creatinine 0.66, Estim Creat Clear Calc 35.99, Est GFR (MDRD) Af Amer 112, Est GFR (MDRD) Non-Af 93, BUN/Creatinine Ratio 19.6, Glucose 186 H, Calcium 9.1, Iron 31 L, TIBC 329, Iron Saturation 9.4 L, Total Bilirubin 1.00, AST 41 H, ALT 40, Alkaline Phosphatase 166 H, Total Protein 5.9 L, Albumin 2.0 L, Globulin 3.9, Albumin/Globulin Ratio 0.5 L 02/10/22 07:01: POC Glucose 166 H 02/10/22 12:06: POC Glucose 207 H 02/10/22 17:32: POC Glucose 136 H Radiology Impression Echocardiogram 02/10/22 05:55 Interpretation Summary The study was technically difficult. Left ventricular systolic function is hyperdynamic. The estimated ejection fraction is 75 %. The left atrium is mildly enlarged. There is moderate to severe mitral annular calcification. Extension of the mitral annular calcification on the base of the posterior mitr al valve leaflet. Mild (1+) mitral valve insufficiency. Mild to moderate (1-2+) tricuspid valve insufficiency. Mild focal aortic valve calcification. Trivial pulmonic valve insufficiency. Trivial pericardial effusion. There are no echocardiographic indications of cardiac tamponade. Right ventricular systolic pressure estimated to be 44 mmHg. Transmitral diastolic flow velocities suggest diastolic dysfunction (pseudonormal pattern). Ordering Physician: Josiah Merchant Referring Physician: MD Josiah Smith Performed By: Suzanne Bailey RCS Venous Doppler Study 02/10/22 09:39 Interpretation Summary No evidence for acute deep venous thrombosis bilateral lower extremities Patent and compressible bilateral great saphenous veins Pulsatile venous flow pattern noted bilaterally consistent with proximal venous hypertension or obstruction. Clinical correlation would be appropriate. Ordering Physician: Irma Desouza Referring Physician: MD Josiah Smith Performed By: Arline Wolfe, RVT
[2022-02-10] MEDS: Atorvastatin Calcium 40 MG Tablet PO (20:36)
[2022-02-10] MEDS: 0.9% Saline Lock 10 ML Syringe IV (21:03)
[2022-02-10] MEDS: rifAXIMin 550 MG Tablet PO (21:09)
[2022-02-10 21:46] LABS: Bedside Glucose 234 mg/dL (74-106)
[2022-02-11] VITALS (39 sets, daily range): BP systolic 60–212; BP diastolic 30–116; PULSE 67–84; RESP 7–20; TEMP 36.2–36.9; O2SAT 86–100; BMI 33.5
[2022-02-11] MEDS: Nystatin Powder 15gm Bottle 1 APPLIC TOPICAL ×3 (05:11→21:36)
[2022-02-11] MEDS: Ciprofloxacin 0.3% 2.5ml Bottle 2 DRP EACH EYE ×3 (05:13→21:27)
[2022-02-11 05:36] LABS: Absolute Lymphocyte Count 0.72 X10^3/uL (0.83-4.51); Absolute Neutrophil Count 4.7 X10^3/uL (2.0-7.7); Basophil# 0.06 X10^3/uL; Eosinophil# 0.16 X10^3/uL; Eosinophils% 2.6 % (0-5); Hematocrit 31.9 % (37-47); Hemoglobin 8.8 g/dL (12.0-15.0); Lymphocyte # 0.72 X10^3/ul (0.83-4.51); Lymphocyte % 11.7 % (19-41); Mean Corp Hgb Conc 27.6 g/dL (32-36); Mean Corpuscular Hgb 24.6 pg (27.0-32.0); Mean Corpuscular Volume 89.4 fL (81-99); Mean Platelet Vol. 10.6 fl (6.2-12.0); Monocyte# 0.49 X10^3/uL; NRBC Flagged by Analyzer 0 % (0-5); Neutrophil # 4.72 X10^3/uL (2.7-7.7); Neutrophil % 76.5 % (47-70); Platelet Count 101 K/mm3 (150-450); RBC Distribution Width CV 18.5 % (11.6-14.6); RBC Distribution Width SD 59.4 fl (35.1-43.9); Red Blood Count 3.57 M/mm3 (4.2-5.4); White Blood Count 6.2 K/mm3 (4.4-11.0)
[2022-02-11 05:52] LABS: Magnesium 2.1 mg/dL (1.6-2.6)
[2022-02-11 05:53] LABS: Phosphorus 3.5 mg/dL (2.5-4.9)
[2022-02-11 06:13] LABS: ALB/GLOB Ratio 0.5 RATIO (0.9-2.4); AST(SGOT) 42 U/L (15-37); Alanine Aminotransfer ALT/SGPT 38 U/L (13-56); Alkaline Phosphatase 168 U/L (45-117); Anion Gap 0 (5-15); BUN 14 mg/dL (7-18); BUN/Creat Ratio 19.7 RATIO (10-20); Calcium,Total 9.1 mg/dL (8.5-10.1); Chloride 104 mmol/L (98-107); Creatinine, Serum 0.71 mg/dL (0.55-1.02); EST Glomerular Filtration Rate 85 mL/min (>60); Est Glom Filt Rate - Afr Amer 103 mL/min (>60); Estimated Creatinine Clearance 35.99 ml/min; Glucose 144 mg/dL (74-106); Potassium 4.1 mmol/L (3.5-5.1); Sodium Level 143 mmol/L (136-145)
[2022-02-11] MEDS: Lactulose 20 GM/30 ML UDC PO ×2 (06:46→11:54)
[2022-02-11 07:06] LABS: Bedside Glucose 162 mg/dL (74-106)
[2022-02-11] MEDS: Ipratropium/Albuterol Sulfate 3 ML AMPUL.NEB INHALATION ×3 (07:36→19:10)
[2022-02-11 08:06] LABS: Hemoglobin A1c 5.5 % (3.8-5.6)
[2022-02-11] MEDS: 0.9% Saline Lock 10 ML Syringe IV ×3 (09:08→20:05)
[2022-02-11] MEDS: Furosemide 40 MG/4 ML Vial IV ×2 (09:08→18:04)
[2022-02-11] MEDS: cloNIDine HCl 0.2 MG Tablet PO (09:16)
[2022-02-11] MEDS: Spironolactone 25 MG Tablet PO (09:16)
[2022-02-11] MEDS: rifAXIMin 550 MG Tablet PO (09:16)
[2022-02-11] MEDS: Labetalol 200 MG Tablet PO (09:17)
[2022-02-11] MEDS: Heparin Injection (Vial) 5,000 UNIT/ML VIAL 5000 UNIT SC ×2 (09:17→21:35)
--- NOTE | 2022-02-11 09:39 | PN_ITS ---
Subjective Subjective Has been n.p.o. except for medicines. Her lactulose was increased. She had 1 bowel movement overnight. Objective Data Objective Data Vital Signs: Vital Signs Temp Pulse Resp BP Pulse Ox 97.8 F 67 18 169/47 H 91 02/11/22 09:18 02/11/22 09:18 02/11/22 09:18 02/11/22 09:18 02/11/22 09:18 Oxygen Flow Rate (L/min) 4 Oxygen Delivery Method Nasal Cannula Weight: 175 lb 4.28 oz Body Mass Index (BMI) 33.5 Intake & Output: Intake and Output for Last 24 Hours 02/09/22 02/10/22 02/11/22 23:59 23:59 23:59 Intake Total 1000 / 1000 830 / 930 100 / 100 Output Total 370 / 370 Balance 1000 / 1000 830 / 810 -270 / -270 Lab / Micro Data Result Diagrams: 02/11/22 05:25 02/11/22 05:25 Labs: Laboratory Results - last 24 hr 02/10/22 12:06: POC Glucose 207 H 02/10/22 17:32: POC Glucose 136 H 02/10/22 20:10: Ammonia 68.0 H 02/10/22 20:51: POC Glucose 234 H 02/11/22 05:25: WBC 6.2, RBC 3.57 L, Hgb 8.8 L, Hct 31.9 L, MCV 89.4, MCH 24.6 L , MCHC 27.6 L, RDW Std Deviation 59.4 H, RDW Coeff of Jordan 18.5 H, Plt Count 101 L, MPV 10.6, Immature Gran % (Auto) 0.200, Neut % (Auto) 76.5 H, Lymph % (Auto) 11.7 L, Summers % (Auto) 8.0, Eos % (Auto) 2.6, Baso % (Auto) 1.0, Absolute Neuts (auto) 4.7, Absolute Lymphs (auto) 0.72 L, Nucleated RBC % 0 02/11/22 05:25: Sodium 143, Potassium 4.1, Chloride 104, Carbon Dioxide 39.0 H, Anion Gap 0 L, BUN 14, Creatinine 0.71, Estim Creat Clear Calc 35.99, Est GFR (MDRD) Af Amer 103, Est GFR (MDRD) Non-Af 85, BUN/Creatinine Ratio 19.7, Glucose 144 H, Calcium 9.1, Total Bilirubin 0.90, AST 42 H, ALT 38, Alkaline Phosphatase 168 H, Total Protein 6.0 L, Albumin 2.0 L, Globulin 4.0, Albumin/Globulin Ratio 0.5 L 02/11/22 05:25: Magnesium 2.1 02/11/22 05:25: Phosphorus 3.5 02/11/22 05:25: Hemoglobin A1c 5.5 02/11/22 06:50: POC Glucose 162 H Micro: Microbiology 02/11/22 08:00 Nasal Secretion SARS-CoV-2 Antigen (Rapid) - Final Radiography Diagnostic Testing: Radiology Impression Echocardiogram 02/10/22 05:55 Interpretation Summary The study was technically difficult. Left ventricular systolic function is hyperdynamic. The estimated ejection fraction is 75 %. The left atrium is mildly enlarged. There is moderate to severe mitral annular calcification. Extension of the mitral annular calcification on the base of the posterior mitral valve leaflet. Mild (1+) mitral valve insufficiency. Mild to moderate (1-2+) tricuspid valve insufficiency. Mild focal aortic valve calcification. Trivial pulmonic valve insufficiency. Trivial pericardial effusion. There are no echocardiographic indications of cardiac tamponade. Right ventricular systolic pressure estimated to be 44 mmHg. Transmitral diastolic flow velocities suggest diastolic dysfunction (pseudonormal pattern). Ordering Physician: Josiah Merchant Referring Physician: MD Josiah Smith Performed By: Suzanne Bailey RCS Venous Doppler Study 02/10/22 09:39 Interpretation Summary No evidence for acute deep venous thrombosis bilateral lower extremities Patent and compressible bilateral great saphenous veins Pulsatile venous flow pattern noted bilaterally consistent with proximal venous hypertension or obstruction. Clinical correlation would be appropriate. Ordering Physician: Irma Desouza Referring Physician: MD Sarah Josiah Performed By: Arline Wolfe RVT Physical Exam Const alert General Appearance: cooperative Orientation / Consciousness: oriented to person HEENT hearing grossly normal bilaterally Head and Scalp: normal to inspection Face and Sinus: face symmetric Nose: external nose normal Mouth: oral and palatal mucosa normal Eyes conjunctivae normal General Eye: normal appearance of both eyes Neck full ROM General: normal visual inspection Lymph Lymphatic: no lymphadenopathy noted Chest inspection of chest normal and palpation of chest normal Chest: symmetrical chest wall rise Resp normal respiratory effort Effort and Inspection: able to speak in complete sentences Cardio regular rate GI non-distended Percussion: normal to percussion Rectal Exam: deferred Neuro Speech: speech normal Gait (Neuro): normal gait Assessment & Plan Assessment/Plan (1) Ascites: PLAN: He had imaging she does not have any ascites status post TIPS procedure.. She is still taking oral diuretic therapy to maintain close to euvolemic state as possible. (2) Cirrhosis: PLAN: Núñez cirrhosis complicated by ascites, esophageal and gastric varices status post TIPS. Her current meld is 12. (3) Hepatic encephalopathy: PLAN: Continue lactulose every 6 hours (4) Bicytopenia: PLAN: She will undergo an EGD today to see if there is any sign of blee ding and to see her previous diagnosis of varices in his colon. We will also check for portal gastropathy as a reason to cause refractory hepatic encephalopathy/ Charges/Coding Visit Charges Inpatient E&M: 09653 Subs Hosp L3
[2022-02-11 11:06] LABS: International Normalized Ratio 1.3
[2022-02-11 11:07] LABS: Partial Thromboplast Time 31.3 Seconds (24.1-36.2)
[2022-02-11 11:20] LABS: Bedside Glucose 148 mg/dL (74-106)
--- NOTE | 2022-02-11 11:32 | PCM.PN.HOSP ---
Documented by User: Bee Cummings CASTING TECHNICIAN, CASTING TECHNICIAN-C 02/11/22 11:40 Subjective Subjective Patient seen and examined. Confused, yelling out. Swelling appears improved. Patient to go for upper endoscopy. Objective Data Objective Data Vital Signs: Vital Signs Temp Pulse Resp BP Pulse Ox 97.8 F 84 18 169/47 H 91 02/11/22 09:18 02/11/22 10:58 02/11/22 09:18 02/11/22 09:18 02/11/22 09:18 Oxygen Flow Rate (L/min) 2 Oxygen Delivery Method Nasal Cannula Weight: 175 lb 4.28 oz Body Mass Index (BMI) 33.5 Intake & Output: Intake and Output for Last 24 Hours 02/09/22 02/10/22 02/11/22 23:59 23:59 23:59 Intake Total 1000 / 1000 830 / 930 100 / 100 Output Total 370 / 370 Balance 1000 / 1000 830 / 810 -270 / -270 Lab / Micro Data Result Diagrams: 02/11/22 05:25 02/11/22 05:25 Labs: Laboratory Results - last 24 hr 02/10/22 12:06: POC Glucose 207 H 02/10/22 17:32: POC Glucose 136 H 02/10/22 20:10: Ammonia 68.0 H 02/10/22 20:51: POC Glucose 234 H 02/11/22 05:25: WBC 6.2, RBC 3.57 L, Hgb 8.8 L, Hct 31.9 L, MCV 89.4, MCH 24.6 L, MCHC 27.6 L, RDW Std Deviation 59.4 H, RDW Coeff of Jordan 18.5 H, Plt Count 101 L, MPV 10.6, Immature Gran % (Auto) 0.200, Neut % (Auto) 76.5 H, Lymph % (Auto) 11.7 L, [place] % (Auto) 8.0, Eos % (Auto) 2.6, Baso % (Auto) 1.0, Absolute Neuts (auto) 4.7, Absolute Lymphs (auto) 0.72 L, Nucleated RBC % 0 02/11/22 05:25: Sodium 143, Potassium 4.1, Chloride 104, Carbon Dioxide 39.0 H, Anion Gap 0 L, BUN 14, Creatinine 0.71, Estim Creat Clear Calc 35.99, Est GFR (MDRD) Af Amer 103, Est GFR (MDRD) Non-Af 85, BUN/Creatinine Ratio 19.7, Glucose 144 H, Calcium 9.1, Total Bilirubin 0.90, AST 42 H, ALT 38, Alkaline Phosphatase 168 H, Total Protein 6.0 L, Albumin 2.0 L, Globulin 4.0, Albumin/Globulin Ratio 0.5 L 02/11/22 05:25: Magnesium 2.1 02/11/22 05:25: Phosphorus 3.5 02/11/22 05:25: Hemoglobin A1c 5.5 02/11/22 06:50: POC Glucose 162 H 02/11/22 10:45: PT 16.0 H, INR 1.3, APTT 31.3 02/11/22 11:15: POC Glucose 148 H Micro: Microbiology 02/11/22 08:00 Nasal Secretion SARS-CoV-2 Antigen (Rapid) - Final Radiography Diagnostic Testing: Radiology Impression Echocardiogram 02/10/22 05:55 Interpretation Summary The study was technically difficult. Left ventricular systolic function is hyperdynamic. The estimated ejection fraction is 75 %. The left atrium is mildly enlarged. There is moderate to severe mitral annular calcification. Extension of the mitral annular calcification on the base of the posterior mitral valve leaflet. Mild (1+) mitral valve insufficiency. Mild to moderate (1-2+) tricuspid valve insufficiency. Mild focal aortic valve calcification. Trivial pulmonic valve insufficiency. Trivial pericardial effusion. There are no echocardiographic indications of cardiac tamponade. Right ventricular systolic pressure estimated to be 44 mmHg. Transmitral diastolic flow velocities suggest diastolic dysfunction (pseudonormal pattern). Ordering Physician: Josiah Merchant Referring Physician: MD Josiah Smith Performed By: Suzanne Bailey RCS Venous Doppler Study 02/10/22 09:39 Interpretation Summary No evidence for acute deep venous thrombosis bilateral lower extremities Patent and compressible bilateral great saphenous veins Pulsatile venous flow pattern noted bilaterally consistent with proximal venous hypertension or obstruction. Clinical correlation would be appropriate. Ordering Physician: Irma Desouza Referring Physician: MD Sarah Josiah Performed By: Arline Wolfe RVT Physical Exam Const Orientation / Consciousness: confused HEENT normocephalic Mouth: dry mucous membranes Eyes PERRL, EOMs intact bilaterally and conjunctivae normal Neck no lymphadenopathy Resp clear to auscultation bilaterally Auscultation: diminished lung sounds Cardio regular rate and regular rhythm Peripheral Pulses: pulses 2+ throughout GI normal to inspection, nondistended, normoactive bowel sounds, non-tender and non-distended Extremity normal to inspection General Extremity: edema bilateral lower extremity Skin no rashes or lesions noted Lesions: no lesions Rashes: no rashes Trauma: no lacerations or abrasions Neuro CN's II-XII intact bilaterally, no focal motor deficits, no sensory deficits noted and deep tendon reflexes 2+ bilaterally Psych mental status grossly normal and affect normal Assessment & Plan Assessment/Plan (1) Hepatic encephalopathy: PLAN: 1. Acute hypoxic respiratory failure secondary to acute on chronic heart failure with preserved ejection fraction, complicated by underlying liver disease- Continue supplement oxygen to maintain O2 above 90%. Patient documented to be 78% on room air in the emergency room. BNP 825. Chest x-ray with small bilateral pleural effusions. IV Lasix. Strict I&O. Konstantin wrap bilateral lower extremities. Previous echo with EF 60%, diastolic dysfunction. Repeat echo with EF 75%, mild to moderate tricuspid valve insufficiency, RVSP 44 mmHg. 2. Hepatic encephalopathy-underlying cirrhosis/ascites secondary to fatty liver with esophageal varices. Recent TIPS at [facility]. Also noted to have splenic vein thrombosis and portal vein thrombosis at [facility]. Ammonia level elevated. GI consulted. Initiated on spironolactone. Lactulose increased. To undergo EGD. 3. Hypertension-on clonidine, stable. 4. Chronic COPD-as needed albuterol aerosols. 5. Type 2 diabetes mellitus-on glimepiride. Accu-Cheks with sliding scale insulin. 6. Pulmonary hypertension/probable CODIE-recommend outpatient follow-up for PSG. 7. Bilateral bacterial conjunctivitis-Cipro eyedrops. Warm compresses 3 times daily. 8. Normocytic anemia/iron deficiency anemia-begin iron supplementation. 9. Hyperlipidemia-continue statin. DVT prophylaxis- heparin sc This patient was seen by Bee Cummings NP-C under the supervision of Dr. Desouza. Documented by User: Dr. Irma Desouza DO 02/11/22 15:12 Subjective Subjective This patient was seen in conjunction with Bee Cummings NP. The following is a representation of independent history and physical examination. Please see below for addendum the above. Patient seems to remain confused but this appears to be intermittent. She is currently calm and sitting up in a chair and seems to be somewhat sleepy. Is reported she had 1 bowel movement overnight however I cannot find the documentation. No significant issues. Patient denies any current needs. Objective Data Lab / Micro Data Result Diagrams: 02/11/22 05:25 02/11/22 05:25 Physical Exam Const alert and no apparent distress Constitutional Narrative: Obese, elderly white female sitting up in a chair at the bedside, watching television and dozing off, remains confused-oriented to self, place but not time Orientation / Consciousness: awake, oriented to person, oriented to place, oriented to time and confused Exam Limitations: altered mental status Nutritional Appearance: obese HEENT normocephalic, head/scalp atraumatic and moist oral mucous membranes Head and Scalp: normocephalic Resp no retractions, no use of accessory muscles and clear to auscultation bilaterally Resp Narrative: Diminished at the bases bilaterally, patient is on nasal cannula at 2-3 L however breathing appears comfortable, no significant tachypnea noted Effort and Inspection: tachypneic Auscultation: diminished lung sounds Cardio regular rate, regular rhythm, S1 normal heart sound, S2 normal heart sound, no rub, no gallops, no clicks and no JVD Cardio Narrative: Heart tones distant secondary to body habitus Peripheral Pulses: pulses 2+ throughout GI normal to inspection, nondistended, normoactive bowel sounds, soft to palpation, non-tender and non-distended Extremity normal to inspection Extremity Narrative: 1+ bilateral lower extremity pitting edema, no cyanosis or clubbing General Extremity: edema bilateral lower extremity Skin no rashes or lesions noted, no wounds, skin turgor normal, no jaundice, no petechiae and no mottling Skin Narrative: Skin is pale Lesions: no lesions Rashes: no rashes Trauma: no lacerations or abrasions Neuro moves all extremities, no focal motor deficits and deep tendon reflexes 2+ bilaterally Neuro Narrative: Generalized weakness, patient is sleeping but it wakens however orientation is limited to location and self Psych mental status grossly normal Assessment & Plan Assessment/Plan (1) Cirrhosis: (2) Bicytopenia: (3) Acute hepatic encephalopathy: (4) Acute respiratory failure with hypoxia and hypercapnia: PLAN: Assessment: Acute hypoxic respiratory failure secondary to acute on chronic heart failure with preserved ejection fraction/liver cirrhosis Hepatic encephalopathy 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 status post TIPS History of esophageal varices Splenic vein thrombosis-resolved Partial portal vein thrombus Bilateral bacterial conjunctivitis Chronic normocytic anemia Chronic thrombocytopenia Chronic anemia Hyperlipidemia DM-2 COPD Hypertension PAH-suspected who group 3 Bilateral lower extremity edema Plan: -Continue lactulose at increased dose with goal bowel movements 2-4 daily -Patient with partial portal vein thrombus however the decision was made by her primary vascular surgeon and home service director not to anticoagulate her given her risk with placing her on anticoagulation is greater than benefit -Continue Lasix as ordered -Continue Aldactone 25 mg twice daily -Monitor renal function -GI notes reviewed--> plan for EGD today -Continue beta-paris for blood pressure and history of esophageal varices -Platelet count and hemoglobin are stable -Recommend outpatient polysomnography -Suspect respiratory issues are related to a combination of her chronic diastolic/right-sided heart failure and liver cirrhosis -Repeat CBC and BMP in a.m. -Bilateral lower extremity Dopplers were negative for DVT -Encourage I-S -Add nocturnal CPAP -Check a.m. chest x-ray -may need to consider Palliative Care consult Charges/Coding Visit Charges Inpatient E&M: 23074 Subs Hosp L2
[2022-02-11] MEDS: Lactated Ringers 1,000 ML 15 ML IV (14:17)
--- NOTE | 2022-02-11 16:02 | OP.EGD_ITS ---
Patient Name: Sol Ann Procedure Date: 02/11/2022 3:25 PM Date of : 1950 Age: 71 Procedure: Upper GI endoscopy Indications: Iron deficiency anemia Providers: Saman Gaming DO Medicines: See the Anesthesia note for documentation of the administered medications Patient Profile: This is a 71 year old female. Refer to note in patient chart for documentation of history and physical. Patient has symptoms. Complications: No immediate complications. Procedure: Pre-Anesthesia Assessment: - Prior to the procedure, a History and Physical was performed, and patient medications and allergies were reviewed. The patient is competent. The risks and benefits of the procedure and the sedation options and risks were discussed with the patient. All questions were answered and informed consent was obtained. Patient identification and proposed procedure were verified by the physician in the pre-procedure area. Mental Status Examination: alert and oriented. Airway Examination: normal oropharyngeal airway and neck mobility. Respiratory Examination: clear to auscultation. CV Examination: normal. Prophylactic Antibiotics: The patient does not require prophylactic antibiotics. Prior Anticoagulants: The patient has taken no previous anticoagulant or antiplatelet agents. ASA Grade Assessment: II - A patient with mild systemic disease. After reviewing the risks and benefits, the patient was deemed in satisfactory condition to undergo the procedure. The anesthesia plan was to use moderate sedation / analgesia (conscious sedation). Immediately prior to administration of medications, the patient was re-assessed for adequacy to receive sedatives. The heart rate, respiratory rate, oxygen saturations, blood pressure, adequacy of pulmonary ventilation, and response to care were monitored throughout the procedure. The physical status of the patient was re-assessed after the procedure. After obtaining informed consent, the endoscope was passed under direct vision. Throughout the procedure, the patient's blood pressure, pulse, and oxygen saturations were monitored continuously. The gastroscope was introduced through the mouth, and advanced to the second part of duodenum. The upper GI endoscopy was accomplished without difficulty. The patient tolerated the procedure well. Moderate Sedation: Moderate (conscious) sedation was administered by the endoscopy nurse and supervised by the endoscopist. The patient's oxygen saturation, heart rate, blood pressure and response to care were monitored. Total physician intraservice time was 15 minutes. Scope In: 3:45:26 PM Scope Out: 3:53:05 PM Total Procedure Duration Time 0 hours 7 minutes 39 seconds Findings: LA Grade B (one or more mucosal breaks greater than 5 mm, not extending between the tops of two mucosal folds) esophagitis with no bleeding was found 34 to 38 cm from the incisors. A single 5 mm bleeding angiodysplastic lesion was found in the cardia. Coagulation for hemostasis using argon plasma at 0.3 liters/minute and 20 gaitan was successful. Estimated blood loss was minimal. The also were 3 small ulcers in the prepyloric region which were treated with heater probe. The second portion of the duodenum was normal. Impression: - LA Grade B reflux esophagitis. - A single bleeding angiodysplastic lesion in the stomach. Treated with argon plasma coagulation (APC). - Normal second portion of the duodenum. - No specimens collected. -3 small nonbleeding ulcers in the prepyloric region Recommendation: - Return [facility] to [facility] care. - Full liquid diet. -NG tube with lactulose 30 cc administration every hour until 3-4 bowel movements. - Continue present medications. Procedure Code(s): --- Professional --- 70491, Esophagogastroduodenoscopy, flexible, transoral; with control of bleeding, any method G0500, Moderate sedation services provided by the same physician or other qualified health daytime caregiver performing a gastrointestinal endoscopic service that sedation supports, requiring the presence of an independent trained observer to assist in the monitoring of the patient's level of consciousness and physiological status; initial 15 minutes of intra-service time; patient age 5 years or older (additional time may be reported with 21363, as appropriate) CPT copyright 2017 [employer]. All rights reserved. The codes documented in this report are preliminary and upon bread stacker review may be revised to meet current compliance requirements. Saman Gaming DO 02/11/2022 4:02:15 PM This report has been signed electronically. Number of Addenda: 1 Note Initiated On: 02/11/2022 3:25 PM Addendum Number: 1 Addendum Date: 07/17/2022 6:23:43 AM MAC was used as sedation for this procedure. Saman Gaming DO 07/17/2022 6:23:49 AM This report has been signed electronically.
--- NOTE | 2022-02-11 16:03 | OP.CCLET_ITS ---
07/17/2022 Josiah Smith [address] [place] [address] Re : Upper GI endoscopy procedure for Sol Ann Dear Dr. Smith This procedure was performed on Friday, February 11, 2022. My impressions and recommendations are as follows: Impressions : - LA Grade B reflux esophagitis. - A single bleeding angiodysplastic lesion in the stomach. Treated with argon plasma coagulation (APC). - Normal second portion of the duodenum. - No specimens collected. -3 small nonbleeding ulcers in the prepyloric region Recommendations : - Return patient to [facility] for [facility] care. - Full liquid diet. -NG tube with lactulose 30 cc administration every hour until 3-4 bowel movements. - Continue present medications. My findings are described in the full procedure note, which is enclosed. If I can be of further assistance, please feel free to contact me at . Sincerely, Saman Friend, 02/11/2022 4:02:15 PM This report has been signed electronically.
[2022-02-11 16:40] LABS: Bedside Glucose 153 mg/dL (74-106)
[2022-02-11] MEDS: Oxymetazoline 0.05% 1 SPRAY SPRAY.BTL 2 SPRAY NASAL (17:48)
[2022-02-11] MEDS: Lidocaine 4% 5 ML Ampul 2 ML INHALATION (17:53)
--- NOTE | 2022-02-11 18:20 | RAD_ITS ---
EXAM: XR ABDOMEN, 1 VIEW CLINICAL INDICATION: post ng placement -- KUB with both diaphragms for NG/OG Verification TECHNIQUE: Frontal supine view of the abdomen/pelvis. This report was created using [employer] technology. COMPARISON: None. FINDINGS: LOWER THORAX: There are bilateral pleural effusions. There is bilateral pneumonia. GASTROINTESTINAL TRACT: Unremarkable. Non-obstructive. No bowel or stomach distention. ORGANS: There are multiple metallic clips in the right upper quadrant. This is consistent for a cholecystectomy. No organomegaly. No abnormal calcifications. BONES/JOINTS: There are degenerative changes of the lumbar spine. SOFT TISSUES: No acute pathology. VASCULATURE: TIPS stent noted. TUBES, LINES AND DEVICES: There is a feeding tube/ nasogastric tube noted. The tip is in the region of the stomach. RAD/Abdomen Single View (Portable) IMPRESSION: 1. There is a feeding tube/ nasogastric tube noted. The tip is in the region of the stomach. 2. There are bilateral pleural effusions. There is bilateral pneumonia. Electronically Signed: Dane Owens MD at 19:25 EDT ,
[2022-02-11 18:41] LABS: Allen Test Positive; Base Excess 15 mmol/L (-2 to +2); Bicarbonate 44.7 mmol/L (22-26); Blood Gas Specimen Type ART; O2 Delivery Device Cannula; PO2 66 mmHG (75-100); SITE R Radial; SO2 81 % (95-99); Total Carbon Dioxide 49 mmol/L; pCO2 140.1 mmHg (35-45); pH 7.11 (7.35-7.45)
--- NOTE | 2022-02-11 19:32 | PN.HOSP_ITS ---
Hospitalist Note Dr. Desouza notified by nursing regarding patients somnolence on return from [facility] and an ABG was completed showing that patient was acidotic. Patient was placed on Bipap and transferred to the ICU. Patient continued to have low TV and minute ventilation and therefore the decision was made to intubate the patient. The patient was discussed with Dr. Skinner and Dr. Gaming. With bleeding found on EGD patient was initiated on ceftriaxone for SBP prophylaxis. Patients medications were changed in accordance to patients status. The patient was discussed with myself and Dr. Desouza as well as Dr. Bishop.
[2022-02-11 19:40] LABS: Absolute Lymphocyte Count 0.61 X10^3/uL (0.83-4.51); Absolute Neutrophil Count 6.1 X10^3/uL (2.0-7.7); Basophil# 0.06 X10^3/uL; Basophil% 0.8 % (0-1); Eosinophil# 0.06 X10^3/uL; Eosinophils% 0.8 % (0-5); Hematocrit 34.9 % (37-47); Hemoglobin 9.6 g/dL (12.0-15.0); Lymphocyte # 0.61 X10^3/ul (0.83-4.51); Lymphocyte % 8.4 % (19-41); Mean Corp Hgb Conc 27.5 g/dL (32-36); Mean Corpuscular Hgb 24.9 pg (27.0-32.0); Mean Corpuscular Volume 90.4 fL (81-99); Mean Platelet Vol. 10.3 fl (6.2-12.0); Monocyte% 5.5 % (0-10); NRBC Flagged by Analyzer 0 % (0-5); Neutrophil # 6.08 X10^3/uL (2.7-7.7); Neutrophil % 84.1 % (47-70); Platelet Count 160 K/mm3 (150-450); RBC Distribution Width CV 18.7 % (11.6-14.6); RBC Distribution Width SD 61.4 fl (35.1-43.9); Red Blood Count 3.86 M/mm3 (4.2-5.4); White Blood Count 7.2 K/mm3 (4.4-11.0)
--- NOTE | 2022-02-11 19:46 | PCM.PN.BLA ---
Progress Note Intubation Indication: Respiratory failure Seen and I just was an emergency procedure. The patient was placed in supine position. Preoxygenated sedation via bipap and then ambug bag was provided for a minimum of 3 minutes. The patient had continuous cardiac as well as pulse oximetry monitoring during the procedure. Procedure sedation was provided by the administration of etomidate and succinylcholine. GlideScope laryngoscopy was then performed using a number 4 blade, which revealed a grade 2 view. A 7.5 mm endotracheal tube was visualized advancing between the cords to the level of 23 cm at the lip. The stylette was then removed and discarded. Tube placement was confirmed by fogging in the tube along with equal and bilateral breath sounds. Colorimetric change was visualized on the CO2 meter. The cuff was then inflated and the tube secured using a commercially available device. A good pulse oximetry waveform was seen on the monitor throughout the procedure. A portable chest x-ray has been ordered to confirm appropriate placement. The patient tolerated the procedure well.
--- NOTE | 2022-02-11 19:47 | RAD_ITS ---
STUDY: X-RAY CHEST REASON FOR EXAM: Female, 71 years old. CHEST PAIN et tube placement -- OG placement TECHNIQUE: XR Chest 1 View COMPARISON: Two days ago. FINDINGS: There are bilateral pleural effusions. There are bilateral infiltrates. There is no pneumothorax. There is an NGT and ET tube in place. Normal size heart. Normal mediastinum and ivan. Normal visualized pulmonary arteries. There is atherosclerotic calcification of the aortic arch with tortuosity. There are diffuse degenerative changes of the visualized thoracic spine. There is degenerative osteoarthritis of the bilateral shoulders. There is no demonstrated abnormality of the visualized soft tissue structures of the upper abdomen. RAD/Chest 1 View (Portable) IMPRESSION: There are bilateral pleural effusions. There are bilateral infiltrates. There is an endotracheal tube in place. The tip is 12 mm above the cheryl. Electronically Signed: Dane Owens MD at 20:10 EDT ,
--- NOTE | 2022-02-11 19:47 | NURSING ---
Called daughter Briseyda updated that patient is in icu now and intubated. Daughters were present for egd and after left prior to going to icu. Daughter states thank u for update and she thought she would be intubated.
[2022-02-11 19:55] LABS: ALB/GLOB Ratio 0.5 RATIO (0.9-2.4); AST(SGOT) 58 U/L (15-37); Alanine Aminotransfer ALT/SGPT 46 U/L (13-56); Albumin, Serum 2.2 g/dL (3.2-5.0); Alkaline Phosphatase 190 U/L (45-117); Anion Gap -2 (5-15); BUN 16 mg/dL (7-18); BUN/Creat Ratio 19.1 RATIO (10-20); Calcium,Total 9.3 mg/dL (8.5-10.1); Chloride 103 mmol/L (98-107); Creatinine, Serum 0.84 mg/dL (0.55-1.02); EST Glomerular Filtration Rate 71 mL/min (>60); Est Glom Filt Rate - Afr Amer 85 mL/min (>60); Estimated Creatinine Clearance 42.84 ml/min; Globulin 4.4 g/dL (2.2-4.2); Glucose 157 mg/dL (74-106); Potassium 4.8 mmol/L (3.5-5.1); Protein, Total 6.6 g/dL (6.4-8.2); Sodium Level 142 mmol/L (136-145)
--- NOTE | 2022-02-11 19:56 | PN_ITS ---
Progress Note Patient's daughter Briseyda ([phone]) who is listed in chart as contact patient was informed that patient has been intubated.
--- NOTE | 2022-02-11 19:56 | PCM.PN.BLA ---
Progress Note Patient's daughter Briseyda ([phone]) who is listed in chart as contact patient was informed that patient has been intubated.
[2022-02-11 19:58] LABS: International Normalized Ratio 1.4; Prothrombin Time (Protime)PT. 16.9 SECONDS (11.7-14.9)
[2022-02-11] MEDS: Propofol 10MG/Ml 1,000 MG/100 ML Bottle 4.8 MG CONT INF (20:05)
--- NOTE | 2022-02-11 20:06 | PCM.PN.BLA ---
Progress Note With KUB showing bilateral infiltrates concerning for pneumonia we will discontinue ceftriaxone and start patient on vancomycin plus Merrem. Of note patient has allergy to penicillin listed as shortness of breath. Currently intubated and on mechanical ventilation. Will get MRSA nasal screen and sputum culture.
[2022-02-11 20:19] LABS: Lactic Acid 0.8 mmol/L (0.4-1.9)
--- NOTE | 2022-02-11 20:19 | CPS ---
Critical ABG values, Dr. Desouza notified.
[2022-02-11] MEDS: Etomidate 20 MG/10 ML Vial IV (20:35)
--- NOTE | 2022-02-11 20:49 | NURSING ---
1900: Pt transferred from PCU on BIPAP d/t respiratory failure/encephalopathy. Obtunded upon arrival to unit, unresponsive to sternal rub. Pt not obtaining adequate volumes on AVAPS, 100-200. 1929: Dr. Bishop at bedside to intubate 1936: 20 mg etomidate IV given 1937: 100 mg succ IV given 1939: Dr. Bishop intubated, positive color change, bilateral breath sounds. #7.5 tube, 23 cm at lip. OGT placed.
[2022-02-11] MEDS: Chlorhexidine 15 ML PO (21:35)
[2022-02-11 21:38] LABS: CPK Total, Creatine Kinase 98 U/L (26-192); Triglycerides 70 mg/dL
[2022-02-11 21:41] LABS: Allen Test Positive; Base Excess 10 mmol/L (-2 to +2); Bicarbonate 35.4 mmol/L (22-26); Blood Gas Specimen Type ART; FI02 40; Mode AC; O2 Delivery Device Adult Vent; PEEP 8; PO2 61 mmHG (75-100); RR 16; SITE R Radial; SO2 90 % (95-99); Total Carbon Dioxide 37 mmol/L; Vt 400; pCO2 59.3 mmHg (35-45); pH 7.38 (7.35-7.45)
[2022-02-11] MEDS: Lactulose 20 GM/30 ML UDC NG ×2 (22:01→22:57)
[2022-02-11] MEDS: Famotidine 20 MG Tablet GT (22:01)
--- NOTE | 2022-02-11 22:20 | PCM.RX.CS ---
Consult Pharmacy has been consulted to manage selected antiobiotic: Vancomycin Type of Consult: New start Suspected Infection: Pneumonia Labs: Sodium 142 mmol/L (136-145) 02/11/22 19:30 Potassium 4.8 mmol/L (3.5-5.1) 02/11/22 19:30 Chloride 103 mmol/L (98-107) 02/11/22 19:30 Carbon Dioxide 41.0 mmol/L (21.0-32.0) H 02/11/22 19:30 Anion Gap -2 (5-15) L 02/11/22 19:30 BUN 16 mg/dL (7-18) 02/11/22 19:30 Creatinine 0.84 mg/dL (0.55-1.02) 02/11/22 19:30 Est GFR (MDRD) Af Amer 85 mL/min (>60) 02/11/22 19:30 Est GFR (MDRD) Non-Af 71 mL/min (>60) 02/11/22 19:30 BUN/Creatinine Ratio 19.1 RATIO (10-20) 02/11/22 19:30 Glucose 157 mg/dL (74-106) H 02/11/22 19:30 Microbiology: Microbiology 02/09/22 15:25 Blood Culture (Wb) - Anticubital Right Blood Culture - Preliminary No growth in 48 hours. 02/11/22 08:00 Nasal Secretion SARS-CoV-2 Antigen (Rapid) - Final Weight used for dosin.5 kg Estimated Creatinine Clearance: 55.7 Goal Trough: 15-20 mcg/mL Pharmacy Plan for Drug Dosing: Pharmacy Service will continue to monitor and adjust dosing as required. Medications Vancomycin HCl 2,000 mg/ (Sodium Chloride) 540 mls @ 250 mls/hr IV X1 ONE Stop: 02/11/22 22:54 Last Admin: 02/11/22 21:27 Dose: 250 mls/hr Documented by: Vancomycin HCl 750 mg/ Sodium (Chloride) 265 mls @ 250 mls/hr IV Q12H SONIA Follow-Up Labs: Trough Vancomycin Labs to be done on [date and time ordered]: 02/13 @ 0900
--- NOTE | 2022-02-11 22:23 | NURSING ---
Daughter Briseyda called in for update. She would like to be called with any updates on pt. .
[2022-02-12] VITALS (47 sets, daily range): BP systolic 97–164; BP diastolic 29–85; PULSE 65–93; RESP 16–23; TEMP 37.4–38; O2SAT 94–100
[2022-02-12] MEDS: 0.9% Saline Lock 10 ML Syringe IV ×5 (00:30→20:31)
[2022-02-12] MEDS: Ciprofloxacin 0.3% 2.5ml Bottle 2 DRP EACH EYE ×5 (00:30→23:23)
[2022-02-12 00:36] LABS: Bedside Glucose 128 mg/dL (74-106)
[2022-02-12] MEDS: Lactulose 20 GM/30 ML UDC NG ×3 (00:53→01:50)
[2022-02-12] MEDS: Ipratropium/Albuterol Sulfate 3 ML AMPUL.NEB INHALATION ×4 (01:50→19:07)
[2022-02-12 02:20] LABS: M R Staph aureus DNA By PCR Negative (Negative); Probe Check PASS; Specimen Processing Control PASS
--- NOTE | 2022-02-12 02:50 | PCM.PN.BLA ---
Progress Note Attempted to place arterial line through right radial artery without success.
[2022-02-12 03:26] LABS: Absolute Neutrophil Count 3.9 X10^3/uL (2.0-7.7); Basophil# 0.02 X10^3/uL; Basophil% 0.4 % (0-1); Eosinophil# 0.02 X10^3/uL; Eosinophils% 0.4 % (0-5); Hematocrit 26.1 % (37-47); Hemoglobin 7.4 g/dL (12.0-15.0); Lymphocyte % 14.1 % (19-41); Mean Corp Hgb Conc 28.4 g/dL (32-36); Mean Corpuscular Volume 88.2 fL (81-99); Monocyte% 15.8 % (0-10); NRBC Flagged by Analyzer 0 % (0-5); Neutrophil # 3.92 X10^3/uL (2.7-7.7); Neutrophil % 68.8 % (47-70); POSITIVE COUNT YES; Platelet Count 69 K/mm3 (150-450); RBC Distribution Width CV 18.6 % (11.6-14.6); RBC Distribution Width SD 58.5 fl (35.1-43.9); Red Blood Count 2.96 M/mm3 (4.2-5.4); White Blood Count 5.7 K/mm3 (4.4-11.0)
[2022-02-12 03:27] LABS: Differential Indicated SCAN CRITERIA MET
[2022-02-12 03:43] LABS: ALB/GLOB Ratio 0.5 RATIO (0.9-2.4); AST(SGOT) 69 U/L (15-37); Alanine Aminotransfer ALT/SGPT 36 U/L (13-56); Albumin, Serum 1.6 g/dL (3.2-5.0); Alkaline Phosphatase 129 U/L (45-117); Anion Gap 2 (5-15); BUN 17 mg/dL (7-18); Calcium,Total 7.7 mg/dL (8.5-10.1); Chloride 111 mmol/L (98-107); Creatinine, Serum 0.95 mg/dL (0.55-1.02); EST Glomerular Filtration Rate 61 mL/min (>60); Est Glom Filt Rate - Afr Amer 74 mL/min (>60); Estimated Creatinine Clearance 37.88 ml/min; Globulin 3.2 g/dL (2.2-4.2); Glucose 96 mg/dL (74-106); Potassium 4.2 mmol/L (3.5-5.1); Protein, Total 4.8 g/dL (6.4-8.2); Sodium Level 147 mmol/L (136-145)
[2022-02-12 04:08] LABS: Differential Comment SCANNED; Platelet Estimate MOD DEC (ADEQ)
[2022-02-12] MEDS: Nystatin Powder 15gm Bottle 1 APPLIC TOPICAL ×3 (05:21→20:11)
[2022-02-12] MEDS: CHLORHEXIDINE GLUC 2% CLOTH 1 EACH TOWELETTE TOPICAL (05:21)
[2022-02-12] MEDS: Furosemide 40 MG/4 ML Vial IV ×3 (05:26→20:06)
[2022-02-12 05:31] LABS: Bedside Glucose 108 mg/dL (74-106)
[2022-02-12] MEDS: Metoprolol Tartrate 5 MG/5 ML Vial IV ×4 (06:33→23:16)
[2022-02-12] MEDS: TITRATION PARAMETER CHANGE 1 EACH IV (06:53)
--- NOTE | 2022-02-12 07:00 | RAD_ITS ---
ACR Level 3 findings have been noted. An addendum which confirms receipt of the report will follow. EXAM: XR CHEST, 1 VIEW CLINICAL INDICATION: SOB TECHNIQUE: Frontal view of the chest. This report was created using [employer] report generation technology. COMPARISON: February 11, 2022 at 7:48 PM. FINDINGS: LUNGS AND PLEURAL SPACES: At least mild bilateral pleural effusions, greater on the left. Mild hazy opacities in the lung bases are increased from February 09, 2022. No pneumothorax. HEART: At least mild cardiomegaly and pulmonary vascular distention. Mild haziness in the lung bases. MEDIASTINUM: Central airways and mediastinal contour are unremarkable. BONES/JOINTS: Unremarkable. SOFT TISSUES: Unremarkable. TUBES, LINES AND DEVICES: The endotracheal tube is low, just within the cheryl, consider retracting it 2-3 cm. The enteric tube tip is at least in the proximal body of the stomach, not fully included. There is a faint TIPS stent right upper quadrant, small liver contour, and cholecystectomy clips. RAD/Chest 1 View (Portable) IMPRESSION: Low endotracheal tube, consider retracting it 2-3 cm. Similar appearance of cardiomegaly, pulmonary vascular congestion and mild effusions. Mild increased haziness in the lung bases. Electronically Signed: Yakelin Joyce MD at 4:08 EDT ,
--- NOTE | 2022-02-12 07:09 | EX.PCM.CONCC ---
Assessment & Plan Assessment/Plan (1) Acute respiratory failure with hypoxia and hypercapnia: (2) Hepatic encephalopathy: (3) Cirrhosis: (4) COPD (chronic obstructive pulmonary disease): (5) Asthma: PLAN: RECOMMENDATIONS: 1. Obtain spontaneous breathing trial this morning with ABG at the end 2. Keep oxygen saturations between 90 and 94% 3. No indication for transfusion at this time 4. Hold on pressors for now 5. Await GI recommendations IMPRESSIONS: 1. Acute on chronic combined respiratory failure Patient currently sedated with Precedex. Unclear onset of hypercarbia. Patient did have anesthesia yesterday. Will attempt a spontaneous breathing trial this morning. Patient does have COPD and appears to have a baseline CO2 of approximately 60. If respiratory failure is secondary to anesthesia, potentially able to extubate today despite short time on the ventilator. Patient does not appear to have infiltrates to suggest an underlying pneumonic process. Patient is on bronchodilators. No significant wheezing noted, so it is unclear if steroids would be indicated. Cultures are currently pending. 2. Hepatic encephalopathy in setting of cirrhosis/status post TIPS Patient is being aggressively treated with lactulose. Cannot exclude an element of SBP as patient does have ulcers, ascites and an elevated temperature. Patient has been empirically placed on antibiotics. Continue to monitor. 3. 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 Will discuss with team. Anticoagulation is currently held. Will attempt to obtain more information on baseline status. May need to transition to Bumex to achieve diuresis as patient does have lower albumins. 4. Obesity/advanced age/COPD/PAH/diabetes mellitus Complicates care, management, recovery and prognosis. Okay to continue with baseline medications. Would be helpful to obtain information as to the severity of patient's COPD. Patient does appear to have chronic CO2 retention. Cannot exclude an element of hepatopulmonary syndrome. TIME: 42 minutes critical care time spent addressing patient's respiratory failure, hepatic encephalopathy, review of all data and collaboration with care team HPI Consult Data Date of Consult: 02/12/22 HPI Narrative HPI Narrative: MICHAEL HENLEY is a 71 F, with past medical history listed below, who presented to [facility] on 02/09/2022 by daughter secondary to hallucinations. Patient reportedly had been having visual hallucinations. Patient reportedly was at [facility] 6 weeks prior and had hernia repairs secondary to some internal bleeding. Patient also had a history of bile duct stents and a TIPS procedure. Patient had been recently treated with Zithromax and reportedly had complained of some shortness of breath, but was refusing to wear her oxygen. Patient reportedly was desaturating into the mid 80s on her home health visit earlier in the week. Patient does carry a diagnosis of COPD, but severity is unknown. Patient does have multiple allergies reported. In the ER, patient was afebrile, but hypertensive at 161/120 and 78% on room air. Patient was placed on 3 L nasal cannula with improvement. Laboratory work-up showed an anemia with a hemoglobin of 9.4 and platelet count of 115. Chemistries were relatively unremarkable except for an elevated alkaline phosphatase of 179, BNP of 825 and an ammonia of 62. UA was unremarkable. Yesterday, patient was still having some agitation, but went downstairs for an EGD. Patient reportedly received only minimal propofol and was noted to have an angiodysplastic lesion in the cardia that was coagulated, grade B reflux esophagitis and 3 nonbleeding ulcers in the prepyloric region. Patient was sent back to the floor, but was noted to be unresponsive. A series of events took place, but patient was ultimately noted to have significant elevation of CO2 and was intubated while in the intensive care unit. Overnight, patient had some marginal blood pressures from a MAP perspective, but remained normal systolically. Patient did not have a spontaneous breathing trial this morning, but a repeat ABG did show normalization of hypercarbia. Patient was treated aggressively with lactulose, so an FMS had to be placed secondary to concerns for skin breakdown. Patient is currently intubated and sedated, so additional history is not available at this time. 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 Thrombocytopenia Home Medications albuterol sulfate 2 puff INHALATION Q4H PRN PRN 07/04/16 [History Last Taken 10/16/16] clonidine HCl 0.1 mg tablet 0.1 mg PO TID tab 02/02/18 [History Last Taken 02/08/22] clonidine HCl 0.2 mg PO BID 01/06/19 [History Last Taken 02/09/22 08:00] albuterol sulfate 2.5 mg INHALATION Q4H PRN PRN 01/30/21 [History Last Taken Unknown] furosemide 30 mg PO BID 01/30/21 [History Last Taken 02/09/22 08:00] artificial tears solution 1 drp OPHTHALMIC (EYE) TID 02/09/22 [History Last Taken 02/08/22] atorvastatin [Lipitor] 40 mg PO QHS 02/09/22 [History Last Taken 02/08/22] labetalol 200 mg PO BID 02/09/22 [History Last Taken 02/09/22 08:00] Allergy/AdvReac Type Severity Reaction Status Date / Time suture Allergy Mild rash/ Verified 06/09/21 10:11 wound dehisence amoxicillin Allergy Unknown Verified 06/09/21 10:11 azithromycin Allergy Shortness Verified 06/09/21 10:11 of breath celecoxib [From Celebrex] Allergy Other Verified 06/09/21 10:11 ciprofloxacin [From Cipro] Allergy Shortness Verified 06/09/21 10:11 of breath ciprofloxacin HCl Allergy Shortness Verified 06/09/21 10:11 [From Cipro] of breath cortisone Allergy Swelling Verified 06/09/21 10:11 doxycycline Allergy Shortness Verified 06/09/21 10:11 of breath erythromycin base Allergy Unknown Verified 06/09/21 10:11 fexofenadine [From Ashlee] Allergy Unknown Verified 06/09/21 10:11 ibuprofen Allergy Shortness Verified 06/09/21 10:11 of breath Iodinated Contrast Media Allergy Shortness Verified 06/09/21 10:11 [DYEE] of breath iodine Allergy Shortness Verified 06/09/21 10:11 of breath levofloxacin [From Levaquin] Allergy Shortness Verified 06/09/21 10:11 of breath lorazepam [From Ativan] Allergy Shortness Verified 06/09/21 10:11 of breath nitrofurantoin Allergy Shortness Verified 06/09/21 10:11 [From Macrobid] of breath nitrofurantoin Allergy Shortness Verified 06/09/21 10:11 macrocrystalline of breath [From Macrobid] Penicillins Allergy Shortness Verified 06/09/21 10:11 of breath rofecoxib [From Vioxx] Allergy Unknown Verified 06/09/21 10:11 Sulfa (Sulfonamide Allergy Shortness Verified 06/09/21 10:11 Antibiotics) of breath sulfamethoxazole Allergy Shortness Verified 06/09/21 10:11 [From Bactrim] of breath trimethoprim [From Bactrim] Allergy Shortness Verified 06/09/21 10:11 of breath amlodipine [From Norvasc] AdvReac Upset Verified 06/09/21 10:11 Stomach cat gut sutures Allergy Unknown Uncoded 06/09/21 10:11 MISC BP MED Allergy Shortness Uncoded 06/09/21 10:11 of breath Family History Mother Heart disease Brother Heart disease Surgical History History of bilateral salpingo-oophorectomy History of laparoscopic cholecystectomy History of oral surgery S/P TIPS (transjugular intrahepatic portosystemic shunt) Social History Smoking Status: Former smoker alcohol intake: never substance use type: does not use ROS Review of Systems ROS Unobtainable: due to encephalopathy Physical Exam Const General Appearance: intubated and patient mechanically ventilated Nutritional Appearance: obese HEENT normocephalic Mouth: dry mucous membranes Eyes PERRL, EOMs intact bilaterally and conjunctivae normal Neck no lymphadenopathy Chest inspection of chest normal Chest: symmetrical chest wall rise; Negative for crepitus Resp clear to auscultation bilaterally Auscultation: diminished lung sounds; Negative for rales, rhonchi or wheezes Cardio regular rate and regular rhythm Peripheral Pulses: pulses 2+ throughout GI normal to inspection, nondistended, normoactive bowel sounds, non-tender and non-distended Extremity normal to inspection General Extremity: edema bilateral lower extremity Skin no rashes or lesions noted Lesions: no lesions Rashes: no rashes Trauma: no lacerations or abrasions Neuro CN's II-XII intact bilaterally, no focal motor deficits, no sensory deficits noted and deep tendon reflexes 2+ bilaterally Psych mental status grossly normal and affect normal Lab / Micro Data Result Diagrams: 02/12/22 03:15 02/12/22 03:15 Labs: Laboratory Results - last 24 hr 02/11/22 05:25: Hemoglobin A1c 5.5 02/11/22 10:45: PT 16.0 H, INR 1.3, APTT 31.3 02/11/22 11:15: POC Glucose 148 H 02/11/22 16:34: POC Glucose 153 H 02/11/22 19:30: Ammonia 166.0 H 02/11/22 19:30: WBC 7.2, RBC 3.86 L, Hgb 9.6 L, Hct 34.9 L, MCV 90.4, MCH 24.9 L, MCHC 27.5 L, RDW Std Deviation 61.4 H, RDW Coeff of Jordan 18.7 H, Plt Count 160, MPV 10.3, Immature Gran % (Auto) 0.400, Neut % (Auto) 84.1 H, Lymph % (Auto) 8.4 L, Kenedy % (Auto) 5.5, Eos % (Auto) 0.8, Baso % (Auto) 0.8, Absolute Neuts (auto) 6.1, Absolute Lymphs (auto) 0.61 L, Nucleated RBC % 0 02/11/22 19:30: Sodium 142, Potassium 4.8, Chloride 103, Carbon Dioxide 41.0 H, Anion Gap -2 L, BUN 16, Creatinine 0.84, Estim Creat Clear Calc 42.84, Est GFR (MDRD) Af Amer 85, Est GFR (MDRD) Non-Af 71, BUN/Creatinine Ratio 19.1, Glucose 157 H, Calcium 9.3, Total Bilirubin 1.00, AST 58 H, ALT 46, Alkaline Phosphatase 190 H, Total Protein 6.6, Albumin 2.2 L, Globulin 4.4 H, Albumin/Globulin Ratio 0.5 L 02/11/22 19:30: Lactic Acid 0.8 02/11/22 19:30: Total Creatine Kinase 98, Triglycerides 70 02/11/22 19:35: PT 16.9 H, INR 1.4 02/11/22 21:03: MRSA (PCR) Negative 02/12/22 00:10: POC Glucose 128 H 02/12/22 03:15: WBC 5.7, RBC 2.96 L, Hgb 7.4 L, Hct 26.1 L, MCV 88.2, MCH 25.0 L, MCHC 28.4 L, RDW Std Deviation 58.5 H, RDW Coeff of Jordan 18.6 H, Plt Count 69 L, MPV 13.0 H, Immature Gran % (Auto) 0.500, Neut % (Auto) 68.8, Lymph % (Auto) 14.1 L, Kenedy % (Auto) 15.8 H, Eos % (Auto) 0.4, Baso % (Auto) 0.4, Absolute Neuts (auto) 3.9, Absolute Lymphs (auto) 0.80 L, Nucleated RBC % 0, Differential Comment SCANNED, Platelet Estimate MOD 02/12/22 03:15: Sodium 147 H, Potassium 4.2, Chloride 111 H, Carbon Dioxide 34.0 H, Anion Gap 2 L, BUN 17, Creatinine 0.95, Estim Creat Clear Calc 37.88, Est GFR (MDRD) Af Amer 74, Est GFR (MDRD) Non-Af 61, BUN/Creatinine Ratio 18.0, Glucose 96, Calcium 7.7 L, Total Bilirubin 1.00, AST 69 H, ALT 36, Alkaline Phosphatase 129 H, Total Protein 4.8 L, Albumin 1.6 L, Globulin 3.2, Albumin/Globulin Ratio 0.5 L 02/12/22 05:20: POC Glucose 108 H Micro: Microbiology 02/09/22 15:25 Blood Culture (Wb) - Anticubital Right Blood Culture - Preliminary No growth in 48 hours. 02/11/22 08:00 Nasal Secretion SARS-CoV-2 Antigen (Rapid) - Final ABG Data ABG results: ABG 02/11/22 02/11/22 18:33 21:31 Specimen Type ART ART Sample Site R Radial R Radial pH 7.11 L* 7.38 Bicarbonate Actual 44.7 H 35.4 H Total CO2 49 37 Base Excess 15 H 10 H O2 Saturation 81 L 90 L O2 % 40 ABG pCO2 140.1 H* 59.3 H ABG pO2 66 L 61 L Eliecer Test Positive Positive Respiration Rate 16 O2 Delivery Device Cannula Adult Vent Liter Flow 5.0 Vent Mode AC Tidal Volume 400 POC PEEP 8 Crit Call To/Read Back Yes Radiology Impression KUB X-Ray 02/11/22 18:20 IMPRESSION: 1. There is a feeding tube/ nasogastric tube noted. The tip is in the region of the stomach. 2. There are bilateral pleural effusions. There is bilateral pneumonia. Electronically Signed: Dane Owens MD at 19:25 EDT , Chest X-Ray 02/11/22 19:47 IMPRESSION: There are bilateral pleural effusions. There are bilateral infiltrates. There is an endotracheal tube in place. The tip is 12 mm above the cheryl. Electronically Signed: Dane Owens MD at 20:10 EDT , Chest X-Ray 02/12/22 07:00 IMPRESSION: Low endotracheal tube, consider retracting it 2-3 cm. Similar appearance of cardiomegaly, pulmonary vascular congestion and mild effusions. Mild increased haziness in the lung bases. Electronically Signed: Yakelin Joyce MD at 4:08 EDT , ADDENDUM: 02/12/22 0424 IMPRESSION: Low endotracheal tube, consider retracting it 2-3 cm. Similar appearance of cardiomegaly, pulmonary vascular congestion and mild effusions. Mild increased haziness in the lung bases. N.B. : JANIE Mchugh, confirmed on 02/12/2022 04:17:30 (ET) that the healthcare facility has received the radiology report. Electronically Signed: Yakelin Joyce MD at 4:08 EDT , Charges/Coding Procedures Hospitalists Procedures: [id number] Critial Care 1st Hr
[2022-02-12 08:51] LABS: Hematocrit 30.5 % (37-47); Hemoglobin 8.9 g/dL (12.0-15.0); POSITIVE COUNT YES
[2022-02-12] MEDS: Famotidine 20 MG Tablet GT ×2 (09:24→20:07)
[2022-02-12] MEDS: Lactulose 20 GM/30 ML UDC GT ×4 (09:25→20:11)
[2022-02-12] MEDS: Heparin Injection (Vial) 5,000 UNIT/ML VIAL 5000 UNIT SC ×2 (09:25→20:06)
[2022-02-12] MEDS: Chlorhexidine 15 ML PO ×2 (09:25→20:07)
[2022-02-12] MEDS: Spironolactone 25 MG Tablet NG ×2 (09:25→20:07)
--- NOTE | 2022-02-12 10:25 | CPS ---
Pt had periods of apnea during the 13 minutes of CPAP 5/5 30% trial. RN aware that R.T. changed back to AC and previous settings.
[2022-02-12 11:26] LABS: Bedside Glucose 123 mg/dL (74-106)
--- NOTE | 2022-02-12 14:19 | PN.HOSP_ITS ---
Subjective Subjective Called last evening for worsening mental status and an ABG was obtained which revealed severe respiratory acidosis with marked hypercapnia. Patient was initially placed on noninvasive ventilation however minute ventilation was not adequate for reduction in PCO2 and therefore she was intubated. Her blood gases have improved dramatically and are back to baseline when compared to blood gas that was performed on admission. Patient has been getting sedated and has had propofol, fentanyl, and is currently on Precedex. Weaning is in process to trial spontaneous breathing trial later today. Blood pressures have been borderline but appear to be improving. Objective Data Objective Data Vital Signs: Vital Signs Temp Pulse Resp BP Pulse Ox 99.3 F H 72 16 135/37 H 95 02/12/22 14:00 02/12/22 14:00 02/12/22 14:00 02/12/22 14:00 02/12/22 14:00 Oxygen Flow Rate (L/min) 6 Oxygen Delivery Method Mechanical Ventilator Weight: 80 kg Body Mass Index (BMI) 33.5 Intake & Output: Intake and Output for Last 24 Hours 02/10/22 02/11/22 02/12/22 23:59 23:59 23:59 Intake Total 830 / 930 391.30 / 431.30 1303.83 / 1303.83 Output Total 870 / 870 900 / 900 Balance 830 / 810 -478.70 / -438.70 403.83 / 403.83 Lab / Micro Data Result Diagrams: 02/12/22 08:40 02/12/22 03:15 Labs: Laboratory Results - last 24 hr 02/11/22 16:34: POC Glucose 153 H 02/11/22 19:30: Ammonia 166.0 H 02/11/22 19:30: WBC 7.2, RBC 3.86 L, Hgb 9.6 L, Hct 34.9 L, MCV 90.4, MCH 24.9 L , MCHC 27.5 L, RDW Std Deviation 61.4 H, RDW Coeff of Jordan 18.7 H, Plt Count 160, MPV 10.3, Immature Gran % (Auto) 0.400, Neut % (Auto) 84.1 H, Lymph % (Auto) 8.4 L, Bull[place] % (Auto) 5.5, Eos % (Auto) 0.8, Baso % (Auto) 0.8, Absolute Neuts (auto) 6.1, Absolute Lymphs (auto) 0.61 L, Nucleated RBC % 0 02/11/22 19:30: Sodium 142, Potassium 4.8, Chloride 103, Carbon Dioxide 41.0 H, Anion Gap -2 L, BUN 16, Creatinine 0.84, Estim Creat Clear Calc 42.84, Est GFR (MDRD) Af Amer 85, Est GFR (MDRD) Non-Af 71, BUN/Creatinine Ratio 19.1, Glucose 157 H, Calcium 9.3, Total Bilirubin 1.00, AST 58 H, ALT 46, Alkaline Phosphatase 190 H, Total Protein 6.6, Albumin 2.2 L, Globulin 4.4 H, Albumin/Globulin Ratio 0.5 L 02/11/22 19:30: Lactic Acid 0.8 02/11/22 19:30: Total Creatine Kinase 98, Triglycerides 70 02/11/22 19:35: PT 16.9 H, INR 1.4 02/11/22 21:03: MRSA (PCR) Negative 02/12/22 00:10: POC Glucose 128 H 02/12/22 03:15: WBC 5.7, RBC 2.96 L, Hgb 7.4 L, Hct 26.1 L, MCV 88.2, MCH 25.0 L , MCHC 28.4 L, RDW Std Deviation 58.5 H, RDW Coeff of Jordan 18.6 H, Plt Count 69 L , MPV 13.0 H, Immature Gran % (Auto) 0.500, Neut % (Auto) 68.8, Lymph % (Auto) 14.1 L, [place] % (Auto) 15.8 H, Eos % (Auto) 0.4, Baso % (Auto) 0.4, Absolute Neuts (auto) 3.9, Absolute Lymphs (auto) 0.80 L, Nucleated RBC % 0, Differential Comment SCANNED, Platelet Estimate MOD 02/12/22 03:15: Sodium 147 H, Potassium 4.2, Chloride 111 H, Carbon Dioxide 34.0 H, Anion Gap 2 L, BUN 17, Creatinine 0.95, Estim Creat Clear Calc 37.88, Est GFR (MDRD) Af Amer 74, Est GFR (MDRD) Non-Af 61, BUN/Creatinine Ratio 18.0, Glucose 96, Calcium 7.7 L, Total Bilirubin 1.00, AST 69 H, ALT 36, Alkaline Phosphatase 129 H, Total Protein 4.8 L, Albumin 1.6 L, Globulin 3.2, Albumin/Globulin Ratio 0.5 L 02/12/22 05:20: POC Glucose 108 H 02/12/22 08:40: Hgb 8.9 L, Hct 30.5 L 02/12/22 11:17: POC Glucose 123 H Micro: Microbiology 02/11/22 20:00 Sputum, Induced/Lukens Gram Stain - Final 02/09/22 16:15 Blood Culture (Wb) - Anticubital Left Blood Culture - Preliminary No growth in 48 hours. 02/09/22 15:25 Blood Culture (Wb) - Anticubital Right Blood Culture - Preliminary No growth in 48 hours. 02/11/22 08:00 Nasal Secretion SARS-CoV-2 Antigen (Rapid) - Final ABG Data ABG results: ABG 02/11/22 02/11/22 18:33 21:31 Specimen Type ART ART Sample Site R Radial R Radial pH 7.11 L* 7.38 Bicarbonate Actual 44.7 H 35.4 H Total CO2 49 37 Base Excess 15 H 10 H O2 Saturation 81 L 90 L O2 % 40 ABG pCO2 140.1 H* 59.3 H ABG pO2 66 L 61 L Eliecer Test Positive Positive Respiration Rate 16 O2 Delivery Device Cannula Adult Vent Liter Flow 5.0 Vent Mode AC Tidal Volume 400 POC PEEP 8 Crit Call To/Read Back Yes Radiography Diagnostic Testing: Radiology Impression KUB X-Ray 02/11/22 18:20 IMPRESSION: 1. There is a feeding tube/ nasogastric tube noted. The tip is in the region of the stomach. 2. There are bilateral pleural effusions. There is bilateral pneumonia. Electronically Signed: Dane Owens MD at 19:25 EDT , Chest X-Ray 02/11/22 19:47 IMPRESSION: There are bilateral pleural effusions. There are bilateral infiltrates. There is an endotracheal tube in place. The tip is 12 mm above the cheryl. Electronically Signed: Dane Owens MD at 20:10 EDT , Chest X-Ray 02/12/22 07:00 IMPRESSION: Low endotracheal tube, consider retracting it 2-3 cm. Similar appearance of cardiomegaly, pulmonary vascular congestion and mild effusions. Mild increased haziness in the lung bases. Electronically Signed: Yakelin Joyce MD at 4:08 EDT , ADDENDUM: 02/12/22 0424 IMPRESSION: Low endotracheal tube, consider retracting it 2-3 cm. Similar appearance of cardiomegaly, pulmonary vascular congestion and mild effusions. Mild increased haziness in the lung bases. N.B. : JANIE Mchugh, confirmed on 02/12/2022 04:17:30 (ET) that the healthcare facility has received the radiology report. Electronically Signed: Yakelin Joyce MD at 4:08 EDT , Physical Exam Const alert and no apparent distress Constitutional Narrative: Obese, elderly white female lying in bed intubated and currently on a sedation holiday however still obtunded Orientation / Consciousness: awake, oriented to person, oriented to place, oriented to time and confused Exam Limitations: other limitations Nutritional Appearance: obese HEENT normocephalic, head/scalp atraumatic and moist oral mucous membranes HEENT Narrative: ET tube in place, NG tube in place Head and Scalp: normocephalic Resp no retractions, no use of accessory muscles and clear to auscultation bilaterally Resp Narrative: Diminished at the bases bilaterally, patient is on nasal cannula at 2-3 L however breathing appears comfortable, no significant tachypnea noted Effort and Inspection: tachypneic Auscultation: diminished lung sounds Cardio regular rate, regular rhythm, S1 normal heart sound, S2 normal heart sound, no rub, no gallops, no clicks and no JVD Cardio Narrative: Heart tones distant secondary to body habitus Peripheral Pulses: pulses 2+ throughout GI normal to inspection, nondistended, normoactive bowel sounds, soft to palpation, non-tender and non-distended Extremity normal to inspection Extremity Narrative: 1+ bilateral lower extremity pitting edema, no cyanosis or clubbing General Extremity: edema bilateral lower extremity Peripheral Pulses: Yes pulses 2+ throughout Skin Lesions: no lesions Rashes: no rashes Trauma: no lacerations or abrasions Neuro deep tendon reflexes 2+ bilaterally Neuro Narrative: Patient intubated and sedated on a ventilator Assessment & Plan Assessment/Plan (1) Cirrhosis: (2) Bicytopenia: (3) Acute hepatic encephalopathy: (4) Acute respiratory failure with hypoxia and hypercapnia: PLAN: Acute hypoxic and hypercapnic respiratory failure superimposed on chronic hy percapnia -Etiology is multifactorial and likely related to her mental status, volume ov erload, sedation, anesthesia, COPD -Intubated on 02/11/2022 for marked hypercapnia with a PCO2 of 140 and a pH of 7.11 -1 hour post intubation ABG shows correction of acidosis -Patient is on sedation holiday at this moment to assess for extubation readiness with spontaneous breathing trial -Anticipate some time for medication clearance given liver disease -Sputum culture is pending however gram stain is unimpressive -Continue broad-spectrum antibiotics at this time however will likely narrow to ceftriaxone for SBP prophylaxis if cultures remain negative -Continue diuresis as able--> may transition to Bumex depending on effectiveness of Lasix -Continue pulmonary toilet -No current need for steroids -Pulmonary consulted-appreciate input Hepatic encephalopathy 2/2 MALDONADO Cirrhosis secondary status post TIPS -Encephalopathy is likely related to recent TIPS -Patient has started having bowel movements after having lactulose hourly through the night -Continue lactulose every 4 hours -Goal is for before bowel movements a day -Likely be able to wean lactulose home tomorrow -Continue FMS -Diet is following-appreciate input -If mental status status does not improve may need to consider transfer for [facility] versus hospice -Patient was fully functional prior to TIPS but health has declined dramatically since that time family History of esophageal varices -Esophageal varices have resolved -EGD performed on 02/11/2022--> showed resolution of varices but did show a single bleeding angiodysplastic lesion that was cauterized and 3 small nonbleed ing ulcers in the prepyloric area of the stomach 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 from [facility] Partial portal vein thrombus -Vascular surgery at [facility] has elected not to treat given high risk for bleeding -Patient did have abdominal wall hematoma after she was started on heparin therefore this and the splenic vein thrombosis and anticoagulation had to be discontinued that time -Recommend outpatient follow-up with vascular surgery at [facility] once clinically able to do so Bilateral bacterial conjunctivitis -Continue Cipro eyedrops Chronic normocytic anemia -Hemoglobin is stable -Was slightly low this morning on CBC at 7.4 however repeat is 8.9 suspect initial is dilutional -Continue to monitor Chronic thrombocytopenia -Platelet count down slightly this morning from baseline however I suspect this is dilutional as well -Repeat CBC in a.m. Hyperlipidemia -Statin on hold while intubated DM-2 -Continue insulin every 6 -Continue Accu-Cheks COPD -Continue aerosols as above Hypertension -Blood pressures have been borderline and therefore scheduled antihypertensives are on hold at this time -Continue to monitor PAH-suspected who group 3 -Likely related to COPD and suspected untreated sleep apnea Obesity -BMI 34.4 -Recommend weight loss -Complicates treatment, prognosis, outcomes DVT prophylaxis -Heparin 5000 units twice daily CODE STATUS -Full code Charges/Coding Visit Charges Inpatient E&M: 31279 Subs Hosp L2
--- NOTE | 2022-02-12 15:54 | CASEMGMT ---
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 Pt does not have any services established at this time although home health care was being sought. Delmer can be reached at [phone]. Angie Kinney RN CM
[2022-02-12 17:05] LABS: Bedside Glucose 130 mg/dL (74-106)
[2022-02-12] MEDS: Menthol/Lanolin/Calamine/Znox 113 GM Tube 1 APPLIC TOPICAL (20:30)
[2022-02-12 23:25] LABS: Bedside Glucose 139 mg/dL (74-106)
[2022-02-13] VITALS (48 sets, daily range): BP systolic 98–194; BP diastolic 36–91; PULSE 60–110; RESP 12–23; TEMP 36.7–37.9; O2SAT 92–100
[2022-02-13] MEDS: Ipratropium/Albuterol Sulfate 3 ML AMPUL.NEB INHALATION ×3 (01:40→19:05)
[2022-02-13] MEDS: Lactulose 20 GM/30 ML UDC GT ×2 (02:17→05:15)
[2022-02-13 04:02] LABS: Absolute Lymphocyte Count 0.94 X10^3/uL (0.83-4.51); Absolute Neutrophil Count 3.4 X10^3/uL (2.0-7.7); Basophil# 0.04 X10^3/uL; Basophil% 0.8 % (0-1); Eosinophil# 0.09 X10^3/uL; Eosinophils% 1.8 % (0-5); Hematocrit 31.8 % (37-47); Hemoglobin 9.4 g/dL (12.0-15.0); Lymphocyte # 0.94 X10^3/ul (0.83-4.51); Lymphocyte % 18.7 % (19-41); Mean Corp Hgb Conc 29.6 g/dL (32-36); Mean Corpuscular Hgb 25.3 pg (27.0-32.0); Mean Corpuscular Volume 85.7 fL (81-99); Mean Platelet Vol. 9.6 fl (6.2-12.0); Monocyte# 0.51 X10^3/uL; Monocyte% 10.2 % (0-10); NRBC Flagged by Analyzer 0 % (0-5); Neutrophil # 3.42 X10^3/uL (2.7-7.7); Neutrophil % 68.1 % (47-70); POSITIVE COUNT YES; Platelet Count 73 K/mm3 (150-450); RBC Distribution Width CV 19.2 % (11.6-14.6); RBC Distribution Width SD 57.5 fl (35.1-43.9); Red Blood Count 3.71 M/mm3 (4.2-5.4)
[2022-02-13 04:46] LABS: ALB/GLOB Ratio 0.5 RATIO (0.9-2.4); AST(SGOT) 43 U/L (15-37); Alanine Aminotransfer ALT/SGPT 34 U/L (13-56); Albumin, Serum 1.8 g/dL (3.2-5.0); Alkaline Phosphatase 145 U/L (45-117); Anion Gap 4 (5-15); BUN 21 mg/dL (7-18); BUN/Creat Ratio 17.2 RATIO (10-20); Calcium,Total 8.7 mg/dL (8.5-10.1); Chloride 106 mmol/L (98-107); Creatinine, Serum 1.22 mg/dL (0.55-1.02); EST Glomerular Filtration Rate 46 mL/min (>60); Est Glom Filt Rate - Afr Amer 55 mL/min (>60); Globulin 3.7 g/dL (2.2-4.2); Glucose 148 mg/dL (74-106); Magnesium 2.1 mg/dL (1.6-2.6); Potassium 2.7 mmol/L (3.5-5.1); Protein, Total 5.5 g/dL (6.4-8.2); Sodium Level 147 mmol/L (136-145)
[2022-02-13] MEDS: Nystatin Powder 15gm Bottle 1 APPLIC TOPICAL ×3 (05:15→20:08)
[2022-02-13] MEDS: Furosemide 40 MG/4 ML Vial IV (05:15)
[2022-02-13] MEDS: Ciprofloxacin 0.3% 2.5ml Bottle 2 DRP EACH EYE ×4 (05:17→23:05)
[2022-02-13 05:56] LABS: Allen Test Positive; Base Excess 14 mmol/L (-2 to +2); Bicarbonate 35.7 mmol/L (22-26); Blood Gas Specimen Type ART; FI02 30; Mode AC; O2 Delivery Device ET Tube; PEEP 5; PO2 53 mmHG (75-100); RR 16; SITE R Radial; SO2 92 % (95-99); Total Carbon Dioxide 37 mmol/L; Vt 400; pCO2 35.9 mmHg (35-45); pH 7.61 (7.35-7.45)
[2022-02-13] MEDS: Potassium Chloride Oral Soln 20 MEQ/15 ML UDC 40 MEQ PO (06:05)
--- NOTE | 2022-02-13 06:42 | PN.CC_ITS ---
Assessment & Plan Assessment/Plan (1) Acute respiratory failure with hypoxia and hypercapnia: (2) Hepatic encephalopathy: (3) Cirrhosis: (4) COPD (chronic obstructive pulmonary disease): (5) Asthma: PLAN: RECOMMENDATIONS: 1. Decrease minute ventilation until spontaneous respirations noted 2. Keep oxygen saturations between 90 and 94% 3. Potential spontaneous breathing trial later this morning 4. Continue beta-paris 5. Await GI recommendations IMPRESSIONS: 1. Acute on chronic combined respiratory failure Patient currently sedated with Precedex. Unclear onset of hypercarbia. Patient did have anesthesia yesterday. Will attempt a spontaneous breathing trial this morning. Patient does have COPD and appears to have a baseline CO2 of approximately 60. Patient apneic this morning. ABG shows overventilation, so minute ventilation will be decreased. Once patient has spontaneous respirations, will attempt a spontaneous breathing trial. 2. Hepatic encephalopathy in setting of cirrhosis/status post TIPS Patient is being aggressively treated with lactulose. Cannot exclude an element of SBP as patient does have ulcers, ascites and an elevated temperature. Patient has been empirically placed on antibiotics. Continue to monitor. 3. 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 Will discuss with team. Anticoagulation is currently held. Will attempt to obtain more information on baseline status. May need to transition to Bumex to achieve diuresis as patient does have lower albumins. 4. Obesity/advanced age/COPD/PAH/diabetes mellitus Complicates care, management, recovery and prognosis. Okay to continue with baseline medications. Would be helpful to obtain information as to the severity of patient's COPD. Patient does appear to have chronic CO2 retention. Cannot exclude an element of hepatopulmonary syndrome. 5. Hypokalemia/hypophosphatemia Clinical suspicion for losses secondary to lactulose/GI and diuretics. Aggressive repletion has been ordered. Renal function appears to be slightly worse. Likely secondary to volume depletion. Will discuss with GI about possib le lowering of lactulose dosing. Addendum 2:17 PM: Patient with decreased mental status through the afternoon. Attempted stimulation has not been successful. Nursing noted a dilated left pupil. This was not noted previously. Patient has been progressively hypertensive through the day. An ABG showed CO2 retention, so patient was placed on AVAPS. Patient will be sent for a stat CT scan. Hospitalist was made aware. Repeat chemistries are currently pending. TIME: 77 minutes critical care time spent addressing patient's respiratory failure, hepatic encephalopathy, review of all data and collaboration with care team Subjective Subjective Patient did okay overnight. Patient did have a mild fever, but no hemodynamic instability was reported. She does continue to have an FMS with good output. No significant malignant rhythms were noted on telemetry. Patient was once again apneic during the spontaneous awakening trial this morning. Objective Data Objective Data Vital Signs: Vital Signs Temp Pulse Resp BP Pulse Ox 37.7 C H 62 12 156/38 H 95 02/13/22 03:00 02/13/22 06:00 02/13/22 06:00 02/13/22 06:00 02/13/22 06:00 Oxygen Flow Rate (L/min) 6 Oxygen Delivery Method Mechanical Ventilator Weight: 78.1 kg Body Mass Index (BMI) 33.5 Intake & Output: Intake and Output for Last 24 Hours 02/11/22 02/12/22 02/13/22 23:59 23:59 23:59 Intake Total 391.30 / 431.30 2020.21 / 2023.59 179.39 / 179.39 Output Total 870 / 870 2650 / 2650 875 / 875 Balance -478.70 / -438.70 -629.79 / -625.41 -695.61 / -695.61 Lab / Micro Data Result Diagrams: 02/13/22 02:50 02/13/22 02:50 Labs: Laboratory Results - last 24 hr 02/12/22 08:40: Hgb 8.9 L, Hct 30.5 L 02/12/22 11:17: POC Glucose 123 H 02/12/22 16:50: POC Glucose 130 H 02/12/22 23:14: POC Glucose 139 H 02/13/22 02:50: WBC 5.0, RBC 3.71 L, Hgb 9.4 L, Hct 31.8 L, MCV 85.7, MCH 25.3 L , MCHC 29.6 L, RDW Std Deviation 57.5 H, RDW Coeff of Jordan 19.2 H, Plt Count 73 L , MPV 9.6, Immature Gran % (Auto) 0.400, Neut % (Auto) 68.1, Lymph % (Auto) 18.7 L, [place] % (Auto) 10.2 H, Eos % (Auto) 1.8, Baso % (Auto) 0.8, Absolute Neuts (auto) 3.4, Absolute Lymphs (auto) 0.94, Nucleated RBC % 0 02/13/22 02:50: Sodium 147 H, Potassium 2.7 L*, Chloride 106, Carbon Dioxide 37.0 H, Anion Gap 4 L, BUN 21 H, Creatinine 1.22 H, Estim Creat Clear Calc 29.50, Est GFR (MDRD) Af Amer 55 L, Est GFR (MDRD) Non-Af 46 L, BUN/Creatinine Ratio 17.2, Glucose 148 H, Calcium 8.7, Phosphorus 2.0 L, Magnesium 2.1, Total Bilirubin 1.50 H, AST 43 H, ALT 34, Alkaline Phosphatase 145 H, Total Protein 5.5 L, Albumin 1.8 L, Globulin 3.7, Albumin/Globulin Ratio 0.5 L Micro: Microbiology 02/11/22 20:00 Sputum, Induced/Lukens Gram Stain - Final 02/09/22 16:15 Blood Culture (Wb) - Anticubital Left Blood Culture - Prel iminary No growth in 48 hours. 02/09/22 15:25 Blood Culture (Wb) - Anticubital Right Blood Culture - Preliminary No growth in 48 hours. 02/11/22 08:00 Nasal Secretion SARS-CoV-2 Antigen (Rapid) - Final ABG Data ABG results: ABG 02/13/22 05:50 Specimen Type ART Sample Site R Radial pH 7.61 H* Bicarbonate Actual 35.7 H Total CO2 37 Base Excess 14 H O2 Saturation 92 L O2 % 30 ABG pCO2 35.9 ABG pO2 53 L Eliecer Test Positive Respiration Rate 16 O2 Delivery Device ET Tube Vent Mode AC Tidal Volume 400 POC PEEP 5 Crit Call To/Read Back Yes Blood Gas Notified Whom DR NUNEZ Physical Exam Const Constitutional Narrative: Intermittent spontaneous movement without true purpose. Not following commands. General Appearance: intubated and patient mechanically ventilated Nutritional Appearance: obese HEENT normocephalic Mouth: dry mucous membranes Eyes PERRL, EOMs intact bilaterally and conjunctivae normal Neck no lymphadenopathy Chest inspection of chest normal Chest: symmetrical chest wall rise; Negative for crepitus Resp clear to auscultation bilaterally Auscultation: diminished lung sounds; Negative for rales, rhonchi or wheezes Cardio regular rate and regular rhythm Peripheral Pulses: pulses 2+ throughout GI normal to inspection, nondistended, normoactive bowel sounds, non-tender and non-distended Extremity normal to inspection General Extremity: edema bilateral lower extremity Skin no rashes or lesions noted Lesions: no lesions Rashes: no rashes Trauma: no lacerations or abrasions Neuro CN's II-XII intact bilaterally, no focal motor deficits, no sensory deficits noted and deep tendon reflexes 2+ bilaterally Psych mental status grossly normal and affect normal Charges/Coding Procedures Hospitalists Procedures: 33841 Critial Care 1st Hr Multi Select Codes Hospitalists' Procedures Procedures: 48354 Critial Care Addl 30 Min
[2022-02-13] MEDS: TITRATION PARAMETER CHANGE 1 EACH IV (07:28)
[2022-02-13] MEDS: CHLORHEXIDINE GLUC 2% CLOTH 1 EACH TOWELETTE TOPICAL (07:44)
[2022-02-13] MEDS: Menthol/Lanolin/Calamine/Znox 113 GM Tube 1 APPLIC TOPICAL ×2 (08:38→20:08)
[2022-02-13] MEDS: Famotidine 20 MG Tablet GT (08:38)
[2022-02-13] MEDS: Heparin Injection (Vial) 5,000 UNIT/ML VIAL 5000 UNIT SC ×2 (08:38→20:07)
[2022-02-13] MEDS: Chlorhexidine 15 ML PO (08:38)
[2022-02-13] MEDS: Spironolactone 25 MG Tablet NG (08:39)
[2022-02-13 09:50] LABS: Vancomycin, Trough Level 22.9 ug/mL (5.0-15.0)
--- NOTE | 2022-02-13 10:31 | PCM.RX.CS ---
Consult Pharmacy has been consulted to manage selected antiobiotic: Vancomycin Type of Consult: Follow-up Labs: Vancomycin Trough 22.9 ug/mL (5.0-15.0) H 02/13/22 09:00 Microbiology: Microbiology 02/11/22 20:00 Sputum, Induced/Lukens Gram Stain - Final 02/11/22 20:00 Sputum, Induced/Lukens Respiratory Culture - Preliminary 02/09/22 16:15 Blood Culture (Wb) - Anticubital Left Blood Culture - Preliminary No growth in 48 hours. 02/09/22 15:25 Blood Culture (Wb) - Anticubital Right Blood Culture - Preliminary No growth in 48 hours. 02/11/22 08:00 Nasal Secretion SARS-CoV-2 Antigen (Rapid) - Final Goal Trough: 15-20 mcg/mL Pharmacy Plan for Drug Dosing: VANCOMYCIN LEVEL RECEIVED Current Vancomycin Dose: 750MG IV Q12H Number of Doses Received: 4 (3 prior to trough draw) Vancomycin Level: 22.9 Hours Since Last Dose: 11.25hr Renal Function: 1.22 Renal Function Trend: worsened since yesterday (SCr 0.95 yesterday) Lab/Micro: All Cx NGTD Vancomycin Plan/Comments: Patient had a trough drawn which resulted in a value of 22.9 (goal 15-20). Spoke with RN Marely, requested this morning's vancomycin dose be stopped. Per RN, about 50% of the bag was infused. Will hold vancomycin and check a random level tomorrow morning with AM labs. Based on worsening renal function and trough, patient will likely be appropriate for Q24h dosing interval. Will HOLD vancomycin and resume once trough is <20. Pending Level: *RANDOM* level 02/14 with AM labs Pharmacy Service will continue to monitor and adjust dosing as required.
[2022-02-13 10:45] LABS: Allen Test Positive; Base Excess 8 mmol/L (-2 to +2); Blood Gas Specimen Type ART; FI02 30; Mode CPAP/PS; PEEP 5; PO2 66 mmHG (75-100); PS 5; SITE R Radial; SO2 92 % (95-99); Total Carbon Dioxide 35 mmol/L; pCO2 52.9 mmHg (35-45)
[2022-02-13] MEDS: Metoprolol Tartrate 5 MG/5 ML Vial IV ×3 (11:17→23:05)
[2022-02-13] MEDS: 0.9% Saline Lock 10 ML Syringe IV ×2 (11:18→13:53)
[2022-02-13] MEDS: Insulin Lispro 100 UNIT/ML INSULN.PEN SC (11:18)
--- NOTE | 2022-02-13 11:26 | PN.HOSP_ITS ---
Subjective Subjective No significant issues overnight. Stool output has been good with FMS in place. Had 800 cc of stool for 02/12/2022 and 900 cc in the last 12 hours. We will decrease lactulose. Mental status is improving. Spontaneous breathing trials pending for probable extubation if no further apneic events. Objective Data Objective Data Vital Signs: Vital Signs Temp Pulse Resp BP Pulse Ox 98.7 F 109 H 16 164/91 H 96 02/13/22 10:00 02/13/22 11:17 02/13/22 11:00 02/13/22 11:17 02/13/22 11:00 Oxygen Flow Rate (L/min) 3 Oxygen Delivery Method Nasal Cannula Weight: 78.1 kg Body Mass Index (BMI) 33.5 Intake & Output: Intake and Output for Last 24 Hours 02/11/22 02/12/22 02/13/22 23:59 23:59 23:59 Intake Total 391.30 / 431.30 2020.21 / 4.59 462.27 / 462.27 Output Total 870 / 870 2650 / 2650 2425 / 2425 Balance -478.70 / -438.70 -629.79 / -625.41 -1962.73 / -1962.73 Lab / Micro Data Result Diagrams: 02/13/22 02:50 02/13/22 02:50 Labs: Laboratory Results - last 24 hr 02/12/22 11:17: POC Glucose 123 H 02/12/22 16:50: POC Glucose 130 H 02/12/22 23:14: POC Glucose 139 H 02/13/22 02:50: WBC 5.0, RBC 3.71 L, Hgb 9.4 L, Hct 31.8 L, MCV 85.7, MCH 25.3 L , MCHC 29.6 L, RDW Std Deviation 57.5 H, RDW Coeff of Jordan 19.2 H, Plt Count 73 L , MPV 9.6, Immature Gran % (Auto) 0.400, Neut % (Auto) 68.1, Lymph % (Auto) 18.7 L, [place] % (Auto) 10.2 H, Eos % (Auto) 1.8, Baso % (Auto) 0.8, Absolute Neuts (auto) 3.4, Absolute Lymphs (auto) 0.94, Nucleated RBC % 0 02/13/22 02:50: Sodium 147 H, Potassium 2.7 L*, Chloride 106, Carbon Dioxide 37.0 H, Anion Gap 4 L, BUN 21 H, Creatinine 1.22 H, Estim Creat Clear Calc 29.50, Est GFR (MDRD) Af Amer 55 L, Est GFR (MDRD) Non-Af 46 L, BUN/Creatinine Ratio 17.2, Glucose 148 H, Calcium 8.7, Phosphorus 2.0 L, Magnesium 2.1, Total Bilirubin 1.50 H, AST 43 H, ALT 34, Alkaline Phosphatase 145 H, Total Protein 5.5 L, Albumin 1.8 L, Globulin 3.7, Albumin/Globulin Ratio 0.5 L 02/13/22 09:00: Vancomycin Trough 22.9 H 02/13/22 09:00: Ammonia 33.0 H Micro: Microbiology 02/11/22 20:00 Sputum, Induced/Lukens Gram Stain - Final 02/11/22 20:00 Sputum, Induced/Lukens Respiratory Culture - Preliminary 02/09/22 16:15 Blood Culture (Wb) - Anticubital Left Blood Culture - Preliminary No growth in 48 hours. 02/09/22 15:25 Blood Culture (Wb) - Anticubital Right Blood Culture - Preliminary No growth in 48 hours. 02/11/22 08:00 Nasal Secretion SARS-CoV-2 Antigen (Rapid) - Final ABG Data ABG results: ABG 02/13/22 02/13/22 05:50 10:39 Specimen Type ART ART Sample Site R Radial R Radial pH 7.61 H* 7.40 Bicarbonate Actual 35.7 H 33.0 H Total CO2 37 35 Base Excess 14 H 8 H O2 Saturation 92 L 92 L O2 % 30 30 ABG pCO2 35.9 52.9 H ABG pO2 53 L 66 L Eliecer Test Positive Positive Respiration Rate 16 O2 Delivery Device ET Tube Vent Mode AC CPAP/PS Tidal Volume 400 POC PEEP 5 5 POC Pressure Suppt 5 Crit Call To/Read Back Yes Blood Gas Notified Whom DR NUNEZ Physical Exam Const alert and no apparent distress Constitutional Narrative: Obese, elderly white female lying in bed intubated and currently attempts to open eyes to name Orientation / Consciousness: awake, oriented to person, oriented to place, oriented to time and confused Exam Limitations: other limitations Nutritional Appearance: obese HEENT normocephalic, head/scalp atraumatic and moist oral mucous membranes Head and Scalp: normocephalic Eyes Eyes Narrative: Drainage is improving and appears less purulent Resp no retractions, no use of accessory muscles and clear to auscultation bilaterally Resp Narrative: Diminished at the bases bilaterally, patient remains intubated Effort and Inspection: tachypneic Auscultation: diminished lung sounds Cardio regular rate, regular rhythm, S1 normal heart sound, S2 normal heart sound, no murmurs, no rub, no gallops, no clicks and no JVD Cardio Narrative: Heart tones distant secondary to body habitus Peripheral Pulses: pulses 2+ throughout GI normal to inspection, nondistended, normoactive bowel sounds, soft to palpation, non-tender and non-distended Extremity normal to inspection and no clubbing, cyanosis or edema Extremity Narrative: May be trace pitting edema however this is significantly improved Peripheral Pulses: Yes pulses 2+ throughout Skin Lesions: no lesions Rashes: no rashes Trauma: no lacerations or abrasions Neuro deep tendon reflexes 2+ bilaterally Neuro Narrative: Patient intubated and sedated on a ventilator Psych mental status grossly normal Psych Narrative: Unable to assess as patient is on a ventilator Assessment & Plan Assessment/Plan (1) Cirrhosis: (2) Bicytopenia: (3) Acute hepatic encephalopathy: (4) Acute respiratory failure with hypoxia and hypercapnia: (5) Hypokalemia: (6) Hypophosphatemia: (7) Elevated serum creatinine: (8) Hypernatremia: (9) Hyperchloremia: (10) Hepatic encephalopathy: PLAN: Acute hypoxic and hypercapnic respiratory failure superimposed on chronic hypercapnia -Etiology is multifactorial and likely related to her mental status, volume overload, sedation, anesthesia, COPD -Intubated on 02/11/2022 for marked hypercapnia with a PCO2 of 140 and a pH of 7.11 -1 hour post intubation ABG shows correction of acidosis -ABG this morning shows alkalosis and this probably accounts for her apneic events--> vent changes have been made -Spontaneous breathing trials to be initiated once patient breathing over the vent and anticipate extubation today later -Sputum culture is pending however gram stain is unimpressive -Continue broad-spectrum antibiotics at this time however will likely narrow to ceftriaxone for SBP prophylaxis if cultures remain negative--> final cultures still remains pending but anticipate transition in the next 24 hours -Discontinue diuresis as patient's serum creatinine is slowly trending up as our sodium and chloride -Reevaluate on a daily basis for reinitiation as I do anticipate patient will need to go home on oral Lasix -Continue pulmonary toilet -No current need for steroids -Pulmonary consulted-appreciate input Hepatic 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 -Evaluate daily for reinitiation of diuresis as I do anticipate patient will need to be discharged with some Lasix -Decrease lactulose Hypernatremia/hyperchloremia -Suspect related to volume loss between diuresis and stool production -Discontinue IV Lasix -Decrease lactulose History of esophageal varices -Esophageal varices have resolved -EGD performed on 02/11/2022--> showed resolution of varices but did show a single bleeding angiodysplastic lesion that was cauterized and 3 small nonbleeding ulcers in the prepyloric area of the stomach 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 from [facility] Partial portal vein thrombus -Vascular surgery at [facility] has elected not to treat given high risk for bleeding -Patient did have abdominal wall hematoma after she was started on heparin therefore this and the splenic vein thrombosis and anticoagulation had to be discontinued that time -Recommend outpatient follow-up with vascular surgery at [facility] once clinically able to do so Bilateral bacterial conjunctivitis -Continue Cipro eyedrops Chronic normocytic anemia -Hemoglobin is stable -Hemoglobin remained stable and is at 9.4 this morning -Continue to monitor Chronic thrombocytopenia -Platelet count remained stable and was 73,000 this morning -Repeat CBC in a.m. Hyperlipidemia -Statin on hold while intubated DM-2 -Continue insulin every 6--> transition to before meals and at bedtime if patient is able to eat and extubated -Continue Accu-Cheks COPD -Continue aerosols as above Hypertension -Blood pressures have been borderline and therefore scheduled antihypertensives are on hold at this time -Continue to monitor PAH-suspected who group 3 -Likely related to COPD and suspected untreated sleep apnea Obesity -BMI 34.4 -Recommend weight loss -Complicates treatment, prognosis, outcomes DVT prophylaxis -Heparin 5000 units twice daily CODE STATUS -Full code Charges/Coding Visit Charges Inpatient E&M: 00799 Subs Hosp L2
[2022-02-13 11:31] LABS: Bedside Glucose 151 mg/dL (74-106)
[2022-02-13] MEDS: hydrALAZINE 20 MG/ML Vial 10 MG IV (13:52)
--- NOTE | 2022-02-13 13:56 | CT_ITS ---
STUDY: CT BRAIN WITHOUT CONTRAST REASON FOR EXAM: Female, 71 years old. Change in MS RADIATION DOSAGE (If Supplied By Facility): CTDIvol = ( 44.99 ) mGy, DLP = ( 796.11 ) mGycm TECHNIQUE: Transaxial CT imaging of the brain was performed without administration of intravenous contrast material. Individualized dose optimization techniques were used for this CT. COMPARISON: Comparison is made with prior study dated 02/09/2022. FINDINGS: Normal soft tissue structures. Normal calvarium. There is mild cerebral atrophy with widening of the extra-axial spaces and ventricular dilatation. Normal white matter tracts of the cerebral hemispheres. Normal basal ganglia and thalami. Normal brainstem. Normal cerebellum. There is no intracranial hemorrhage. There are no findings of an acute ischemic infarction. Atherosclerotic calcification of the vertebral arteries and cavernous portions of the internal carotid arteries bilaterally. Normal visualized paranasal sinuses. CT/Brain/Head without Contrast IMPRESSION: Chronic involutional changes of the brain. Electronically Signed: Roberto Amor MD at 15:02 EDT ,
[2022-02-13 14:16] LABS: Base Excess 11 mmol/L (-2 to +2); Bicarbonate 38.4 mmol/L (22-26); Blood Gas Specimen Type ART; O2 Delivery Device Cannula; PO2 106 mmHG (75-100); SO2 96 % (95-99); Total Carbon Dioxide 41 mmol/L; pCO2 92.1 mmHg (35-45); pH 7.23 (7.35-7.45)
[2022-02-13 15:01] LABS: Anion Gap 2 (5-15); BUN 21 mg/dL (7-18); BUN/Creat Ratio 20.6 RATIO (10-20); Calcium,Total 8.8 mg/dL (8.5-10.1); Chloride 110 mmol/L (98-107); Creatinine, Serum 1.02 mg/dL (0.55-1.02); EST Glomerular Filtration Rate 56 mL/min (>60); Est Glom Filt Rate - Afr Amer 68 mL/min (>60); Estimated Creatinine Clearance 35.28 ml/min; Glucose 149 mg/dL (74-106); Magnesium 2.2 mg/dL (1.6-2.6); Potassium 4.1 mmol/L (3.5-5.1); Sodium Level 147 mmol/L (136-145)
[2022-02-13 15:26] LABS: Allen Test Positive; Base Excess 8 mmol/L (-2 to +2); Bicarbonate 33.2 mmol/L (22-26); Blood Gas Specimen Type ART; FI02 25; O2 Delivery Device BiPAP; PEEP 12; PO2 57 mmHG (75-100); RR 18; SITE R Brach; SO2 87 % (95-99); Total Carbon Dioxide 35 mmol/L; pH 7.36 (7.35-7.45)
[2022-02-13] MEDS: Lactulose 20 GM/30 ML UDC PO ×2 (17:48→23:05)
[2022-02-13 17:50] LABS: Bedside Glucose 116 mg/dL (74-106)
[2022-02-13] MEDS: Spironolactone 25 MG Tablet PO (20:08)
[2022-02-13] MEDS: Famotidine 20 MG Tablet PO (20:08)
[2022-02-13 23:21] LABS: Bedside Glucose 116 mg/dL (74-106)
[2022-02-14] VITALS (38 sets, daily range): BP systolic 108–203; BP diastolic 40–90; PULSE 18–104; RESP 12–28; TEMP 36.7–37; O2SAT 91–100
[2022-02-14] MEDS: hydrALAZINE 20 MG/ML Vial 10 MG IV ×2 (00:56→07:06)
[2022-02-14] MEDS: Ipratropium/Albuterol Sulfate 3 ML AMPUL.NEB INHALATION ×4 (01:20→18:34)
[2022-02-14 04:07] LABS: Absolute Lymphocyte Count 1.38 X10^3/uL (0.83-4.51); Absolute Neutrophil Count 8.5 X10^3/uL (2.0-7.7); Basophil% 0.9 % (0-1); Eosinophil# 0.56 X10^3/uL; Eosinophils% 4.8 % (0-5); Hematocrit 38.7 % (37-47); Lymphocyte # 1.38 X10^3/ul (0.83-4.51); Lymphocyte % 11.8 % (19-41); Mean Corp Hgb Conc 28.4 g/dL (32-36); Mean Corpuscular Hgb 25.1 pg (27.0-32.0); Mean Corpuscular Volume 88.2 fL (81-99); Mean Platelet Vol. 9.8 fl (6.2-12.0); Monocyte# 1.08 X10^3/uL; Monocyte% 9.3 % (0-10); NRBC Flagged by Analyzer 0 % (0-5); Neutrophil # 8.49 X10^3/uL (2.7-7.7); Neutrophil % 72.7 % (47-70); Platelet Count 143 K/mm3 (150-450); RBC Distribution Width SD 60.4 fl (35.1-43.9); Red Blood Count 4.39 M/mm3 (4.2-5.4); White Blood Count 11.7 K/mm3 (4.4-11.0)
[2022-02-14] MEDS: Labetalol (Prefilled) 20 MG/4 ML 10 MG IV (04:15)
[2022-02-14 04:25] LABS: ALB/GLOB Ratio 0.5 RATIO (0.9-2.4); AST(SGOT) 47 U/L (15-37); Alanine Aminotransfer ALT/SGPT 36 U/L (13-56); Albumin, Serum 2.1 g/dL (3.2-5.0); Alkaline Phosphatase 159 U/L (45-117); Anion Gap 2 (5-15); BUN 21 mg/dL (7-18); BUN/Creat Ratio 22.2 RATIO (10-20); Chloride 110 mmol/L (98-107); Creatinine, Serum 0.94 mg/dL (0.55-1.02); EST Glomerular Filtration Rate 62 mL/min (>60); Est Glom Filt Rate - Afr Amer 75 mL/min (>60); Estimated Creatinine Clearance 38.29 ml/min; Globulin 4.2 g/dL (2.2-4.2); Glucose 110 mg/dL (74-106); Magnesium 2.2 mg/dL (1.6-2.6); Phosphorus 3.9 mg/dL (2.5-4.9); Potassium 3.4 mmol/L (3.5-5.1); Protein, Total 6.3 g/dL (6.4-8.2); Sodium Level 149 mmol/L (136-145)
[2022-02-14 04:45] LABS: Vancomycin, Random Level 19.6 ug/mL (0.0-15.0)
[2022-02-14] MEDS: Lactulose 20 GM/30 ML UDC PO ×3 (05:37→18:03)
[2022-02-14] MEDS: Ciprofloxacin 0.3% 2.5ml Bottle 2 DRP EACH EYE ×3 (05:38→18:03)
[2022-02-14] MEDS: Metoprolol Tartrate 5 MG/5 ML Vial IV ×3 (05:38→18:04)
[2022-02-14] MEDS: Nystatin Powder 15gm Bottle 1 APPLIC TOPICAL ×3 (06:32→21:30)
--- NOTE | 2022-02-14 06:32 | PCM.RX.CS ---
Consult Pharmacy has been consulted to manage selected antiobiotic: Vancomycin Type of Consult: Follow-up Suspected Infection: Pneumonia Prior Doses of Antibiotics Received/Current Regimen: Medications Vancomycin HCl (Vancomycin) 1,000 mg in 200 mls @ 200 mls/hr IV Q24H SONIA Discontinued Medications Vancomycin HCl 750 mg/ Sodium (Chloride) 265 mls @ 250 mls/hr IV Q12H SONIA Last Admin: 02/13/22 10:00 Dose: Infused Documented by: Labs: Sodium 149 mmol/L (136-145) H 02/14/22 03:50 Potassium 3.4 mmol/L (3.5-5.1) L 02/14/22 03:50 Chloride 110 mmol/L (98-107) H 02/14/22 03:50 Carbon Dioxide 37.0 mmol/L (21.0-32.0) H 02/14/22 03:50 Anion Gap 2 (5-15) L 02/14/22 03:50 BUN 21 mg/dL (7-18) H 02/14/22 03:50 Creatinine 0.94 mg/dL (0.55-1.02) 02/14/22 03:50 Est GFR (MDRD) Af Amer 75 mL/min (>60) 02/14/22 03:50 Est GFR (MDRD) Non-Af 62 mL/min (>60) 02/14/22 03:50 BUN/Creatinine Ratio 22.2 RATIO (10-20) H 02/14/22 03:50 Glucose 110 mg/dL (74-106) H 02/14/22 03:50 Vancomycin Trough 22.9 ug/mL (5.0-15.0) H 02/13/22 09:00 Random Vancomycin 19.6 ug/mL (0.0-15.0) H 02/14/22 03:50 Microbiology: Microbiology 02/11/22 20:00 Sputum, Induced/Lukens Gram Stain - Final 02/11/22 20:00 Sputum, Induced/Lukens Respiratory Culture - Preliminary 02/09/22 16:15 Blood Culture (Wb) - Anticubital Left Blood Culture - Preliminary No growth in 48 hours. 02/09/22 15:25 Blood Culture (Wb) - Anticubital Right Blood Culture - Preliminary No growth in 48 hours. 02/11/22 08:00 Nasal Secretion SARS-CoV-2 Antigen (Rapid) - Final Weight used for dosin.1 kg Estimated Creatinine Clearance: 38 Goal Trough: 15-20 mcg/mL Pharmacy Plan for Drug Dosing: Random vancomycin level was 19.6. SCr decreased back to 0.94, giving a CrCl=38. Will restart dosing at 1000mg q24h, and draw a trough level prior to 3rd dose of new regimen. Pharmacy Service will continue to monitor and adjust dosing as required. Follow-Up Labs: Trough Vancomycin Labs to be done on [date and time ordered]: 02/16/22 @0900
--- NOTE | 2022-02-14 06:42 | PCM.PN.INT ---
Assessment & Plan Assessment/Plan (1) Acute respiratory failure with hypoxia and hypercapnia: (2) Hepatic encephalopathy: (3) Cirrhosis: (4) COPD (chronic obstructive pulmonary disease): (5) Asthma: PLAN: RECOMMENDATIONS: 1. Bedside swallow evaluation. Reinitiate lactulose and clonidine if possible 2. Keep oxygen saturations between 90 and 94% 3. Continue as needed antihypertensives 4. Continue beta-paris 5. Await GI recommendations 6. Monitor in intensive care unit through the day IMPRESSIONS: 1. Acute on chronic combined respiratory failure Patient much improved at this time. Patient did have significant hypercarbia yesterday requiring AVAPS rescue. Patient appears to be doing well this morning, but will need to watch closely. Mental status appears to be a good indicator and likely patient is responding to BiPAP. Hypercarbia will be exacerbated by hepatic encephalopathy, so reinitiation of lactulose with avoidance of hyperoxia will be paramount. 2. Hepatic encephalopathy in setting of cirrhosis/status post TIPS Patient is being aggressively treated with lactulose. Cannot exclude an element of SBP as patient does have ulcers, ascites and an elevated temperature. Patient has been empirically placed on antibiotics. Likely reasonable to complete a 7-day course of antibiotics. 3. 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 Will discuss with team. Anticoagulation is currently held. Will attempt to obtain more information on baseline status. 4. Obesity/advanced age/COPD/PAH/diabetes mellitus Complicates care, management, recovery and prognosis. Okay to continue with baseline medications. Would be helpful to obtain information as to the severity of patient's COPD. Patient does appear to have chronic CO2 retention. Cannot exclude an element of hepatopulmonary syndrome. 5. Hypokalemia/hypophosphatemia Resolved. Clinical suspicion for losses secondary to lactulose/GI and diuretics. Aggressive repletion has been ordered. Renal function improved. Subjective Subjective Yesterday's events were noted. Patient did respond well to BiPAP therapy, so no repeat intubation had to be performed. Patient wore her BiPAP overnight. This morning, patient is much more interactive and able to tell me that she is at [facility] and that she is hungry. Nursing has reported significant hypertension overnight, but no change in neurologic status. Objective Data Objective Data Vital Signs: Vital Signs Temp Pulse Resp BP Pulse Ox 37.0 C 102 H 18 187/61 H 97 02/14/22 04:00 02/14/22 05:38 02/14/22 04:00 02/14/22 05:38 02/14/22 04:00 Oxygen Flow Rate (L/min) 2 Oxygen Delivery Method Nasal Cannula Weight: 78.1 kg Body Mass Index (BMI) 33.5 Intake & Output: Intake and Output for Last 24 Hours 02/12/22 02/13/22 02/14/22 23:59 23:59 23:59 Intake Total 1587.5033 / 1587.5033 360 / 360 Output Total 2650 / 2650 2975 / 2975 250 / 250 Balance -629.79 / -625.41 -1387.4967 / -1387.4967 110 / 110 Lab / Micro Data Result Diagrams: 02/14/22 03:50 02/14/22 03:50 Labs: Laboratory Results - last 24 hr 02/13/22 09:00: Vancomycin Trough 22.9 H 02/13/22 09:00: Ammonia 33.0 H 02/13/22 11:16: POC Glucose 151 H 02/13/22 14:15: Sodium 147 H, Potassium 4.1, Chloride 110 H, Carbon Dioxide 35.0 H, Anion Gap 2 L, BUN 21 H, Creatinine 1.02, Estim Creat Clear Calc 35.28, Est GFR (MDRD) Af Amer 68, Est GFR (MDRD) Non-Af 56 L, BUN/Creatinine Ratio 20.6 H, Glucose 149 H, Calcium 8.8, Phosphorus 6.0 H, Magnesium 2.2 02/13/22 17:29: POC Glucose 116 H 02/13/22 23:07: POC Glucose 116 H 02/14/22 03:50: Random Vancomycin 19.6 H 02/14/22 03:50: WBC 11.7 H, RBC 4.39, Hgb 11.0 L, Hct 38.7, MCV 88.2, MCH 25.1 L, MCHC 28.4 L, RDW Std Deviation 60.4 H, RDW Coeff of Jordan 20.0 H, Plt Count 143 L, MPV 9.8, Immature Gran % (Auto) 0.500, Neut % (Auto) 72.7 H, Lymph % (Auto) 11.8 L, [place] % (Auto) 9.3, Eos % (Auto) 4.8, Baso % (Auto) 0.9, Absolute Neuts (auto) 8.5 H, Absolute Lymphs (auto) 1.38, Nucleated RBC % 0 02/14/22 03:50: Sodium 149 H, Potassium 3.4 L, Chloride 110 H, Carbon Dioxide 37.0 H, Anion Gap 2 L, BUN 21 H, Creatinine 0.94, Estim Creat Clear Calc 38.29, Est GFR (MDRD) Af Amer 75, Est GFR (MDRD) Non-Af 62, BUN/Creatinine Ratio 22.2 H, Glucose 110 H, Calcium 9.0, Phosphorus 3.9, Magnesium 2.2, Total Bilirubin 1.70 H, AST 47 H, ALT 36, Alkaline Phosphatase 159 H, Total Protein 6.3 L, Albumin 2.1 L, Globulin 4.2, Albumin/Globulin Ratio 0.5 L Micro: Microbiology 02/11/22 20:00 Sputum, Induced/Lukens Gram Stain - Final 02/11/22 20:00 Sputum, Induced/Lukens Respiratory Culture - Preliminary 02/09/22 16:15 Blood Culture (Wb) - Anticubital Left Blood Culture - Preliminary No growth in 48 hours. 02/09/22 15:25 Blood Culture (Wb) - Anticubital Right Blood Culture - Preliminary No growth in 48 hours. 02/11/22 08:00 Nasal Secretion SARS-CoV-2 Antigen (Rapid) - Final ABG Data ABG results: ABG 02/13/22 02/13/22 02/13/22 10:39 14:08 15:22 Specimen Type ART ART ART Sample Site R Radial R Brach pH 7.40 7.23 L 7.36 Bicarbonate Actual 33.0 H 38.4 H 33.2 H Total CO2 35 41 35 Base Excess 8 H 11 H 8 H O2 Saturation 92 L 96 87 L O2 % 30 25 ABG pCO2 52.9 H 92.1 H* 59.0 H ABG pO2 66 L 106 H 57 L Eliecer Test Positive Positive Respiration Rate 18 O2 Delivery Device Cannula BiPAP Liter Flow 3.0 Vent Mode CPAP/PS POC PEEP 5 12 POC Pressure Suppt 5 Crit Call To/Read Back Yes Blood Gas Notified Whom judy Clinical Comments avaps 400 14/24 Radiography Diagnostic Testing: Radiology Impression Brain CT 02/13/22 13:56 IMPRESSION: Chronic involutional changes of the brain. Electronically Signed: Roberto Amor MD at 15:02 EDT , Physical Exam Const Constitutional Narrative: Following commands and interactive. Much improved compared to yesterday. Hoarse voice General Appearance: cooperative and comfortable Nutritional Appearance: obese HEENT normocephalic Mouth: dry mucous membranes Eyes PERRL, EOMs intact bilaterally and conjunctivae normal Neck no lymphadenopathy Chest inspection of chest normal Chest: symmetrical chest wall rise; Negative for crepitus Resp clear to auscultation bilaterally Auscultation: diminished lung sounds; Negative for rales, rhonchi or wheezes Cardio regular rate and regular rhythm Peripheral Pulses: pulses 2+ throughout GI normal to inspection, nondistended, normoactive bowel sounds, non-tender and non-distended Extremity normal to inspection General Extremity: edema bilateral lower extremity Skin no rashes or lesions noted Lesions: no lesions Rashes: no rashes Trauma: no lacerations or abrasions Neuro CN's II-XII intact bilaterally, no focal motor deficits, no sensory deficits noted and deep tendon reflexes 2+ bilaterally Psych mental status grossly normal and affect normal Charges/Coding Visit Charges Inpatient E&M: 83342 Subs Hosp L3
--- NOTE | 2022-02-14 09:34 | PCM.PN.HOSP ---
Subjective Subjective Doing well, no issues overnight. Seems more alert than she was the other day. She was able to improve her CO2 retention yesterday on BiPAP overnight. Objective Data Objective Data Vital Signs: Vital Signs Temp Pulse Resp BP Pulse Ox 98.6 F 100 19 H 203/70 H 92 02/14/22 04:00 02/14/22 07:06 02/14/22 07:00 02/14/22 07:06 02/14/22 07:00 Oxygen Flow Rate (L/min) 2 Oxygen Delivery Method Nasal Cannula Weight: 169 lb 15.622 oz Body Mass Index (BMI) 33.5 Intake & Output: Intake and Output for Last 24 Hours 02/13/22 02/14/22 02/15/22 03:59 03:59 03:59 Intake Total 1360.87 / 1378.37 1620.6133 / 1620.6133 240 / 240 Output Total 2650 / 2650 2975 / 2975 250 / 250 Balance -1289.13 / -1271.63 -1354.3867 / -1354.3867 -10 / -10 Lab / Micro Data Result Diagrams: 02/14/22 03:50 02/14/22 03:50 Labs: Laboratory Results - last 24 hr 02/13/22 09:00: Vancomycin Trough 22.9 H 02/13/22 09:00: Ammonia 33.0 H 02/13/22 11:16: POC Glucose 151 H 02/13/22 14:15: Sodium 147 H, Potassium 4.1, Chloride 110 H, Carbon Dioxide 35.0 H, Anion Gap 2 L, BUN 21 H, Creatinine 1.02, Estim Creat Clear Calc 35.28, Est GFR (MDRD) Af Amer 68, Est GFR (MDRD) Non-Af 56 L, BUN/Creatinine Ratio 20.6 H, Glucose 149 H, Calcium 8.8, Phosphorus 6.0 H, Magnesium 2.2 02/13/22 17:29: POC Glucose 116 H 02/13/22 23:07: POC Glucose 116 H 02/14/22 03:50: Random Vancomycin 19.6 H 02/14/22 03:50: WBC 11.7 H, RBC 4.39, Hgb 11.0 L, Hct 38.7, MCV 88.2, MCH 25.1 L, MCHC 28.4 L, RDW Std Deviation 60.4 H, RDW Coeff of [place] 20.0 H, Plt Count 143 L, MPV 9.8, Immature Gran % (Auto) 0.500, Neut % (Auto) 72.7 H, Lymph % (Auto) 11.8 L, [place] % (Auto) 9.3, Eos % (Auto) 4.8, Baso % (Auto) 0.9, Absolute Neuts (auto) 8.5 H, Absolute Lymphs (auto) 1.38, Nucleated RBC % 0 02/14/22 03:50: Sodium 149 H, Potassium 3.4 L, Chloride 110 H, Carbon Dioxide 37.0 H, Anion Gap 2 L, BUN 21 H, Creatinine 0.94, Estim Creat Clear Calc 38.29, Est GFR (MDRD) Af Amer 75, Est GFR (MDRD) Non-Af 62, BUN/Creatinine Ratio 22.2 H, Glucose 110 H, Calcium 9.0, Phosphorus 3.9, Magnesium 2.2, Total Bilirubin 1.70 H, AST 47 H, ALT 36, Alkaline Phosphatase 159 H, Total Protein 6.3 L, Albumin 2.1 L, Globulin 4.2, Albumin/Globulin Ratio 0.5 L Micro: Microbiology 02/11/22 20:00 Sputum, Induced/Lukens Gram Stain - Final 02/11/22 20:00 Sputum, Induced/Lukens Respiratory Culture - Preliminary Gram negative cocco bacillus 02/09/22 16:15 Blood Culture (Wb) - Anticubital Left Blood Culture - Preliminary No growth in 48 hours. 02/09/22 15:25 Blood Culture (Wb) - Anticubital Right Blood Culture - Preliminary No growth in 48 hours. 02/11/22 08:00 Nasal Secretion SARS-CoV-2 Antigen (Rapid) - Final ABG Data ABG results: ABG 02/13/22 02/13/22 02/13/22 10:39 14:08 15:22 Specimen Type ART ART ART Sample Site R Radial R Brach pH 7.40 7.23 L 7.36 Bicarbonate Actual 33.0 H 38.4 H 33.2 H Total CO2 35 41 35 Base Excess 8 H 11 H 8 H O2 Saturation 92 L 96 87 L O2 % 30 25 ABG pCO2 52.9 H 92.1 H* 59.0 H ABG pO2 66 L 106 H 57 L Eliecer Test Positive Positive Respiration Rate 18 O2 Delivery Device Cannula BiPAP Liter Flow 3.0 Vent Mode CPAP/PS POC PEEP 5 12 POC Pressure Suppt 5 Crit Call To/Read Back Yes Blood Gas Notified Whom judy Clinical Comments avaps 400 Radiography Diagnostic Testing: Radiology Impression Brain CT 02/13/22 13:56 IMPRESSION: Chronic involutional changes of the brain. Electronically Signed: Roberto Amor MD at 15:02 EDT , Physical Exam Const alert and no apparent distress General Appearance: cooperative HEENT normocephalic and moist oral mucous membranes Eyes PERRL, EOMs intact bilaterally and conjunctivae normal Neck supple and no JVD Resp normal respiratory effort, no retractions, no use of accessory muscles and clear to auscultation bilaterally Auscultation: diminished lung sounds; Negative for crackles, rales, rhonchi or wheezes Cardio regular rate, regular rhythm, S1 normal heart sound, S2 normal heart sound and no murmurs GI soft to palpation, non-tender and non-distended; Negative for hepatosplenomegaly Extremity General Extremity: edema; Negative for clubbing or cyanosis Skin no rashes or lesions noted Neuro no focal motor deficits and no sensory deficits noted Psych affect normal Appearance: appropriate Assessment & Plan Assessment/Plan (1) Cirrhosis: (2) Bicytopenia: (3) Acute hepatic encephalopathy: (4) Acute respiratory failure with hypoxia and hypercapnia: (5) Hypokalemia: (6) Hypophosphatemia: (7) Elevated serum creatinine: (8) Hypernatremia: (9) Hyperchloremia: (10) Hepatic encephalopathy: PLAN: 1. 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 Her encephalopathy is also likely a side effect of her TIPS procedure, continue with lactulose -Intubated on 02/11/2022 for marked hypercapnia with a PCO2 of 140 and a pH of 7.11 -Sputum culture is pending however gram stain is unimpressive -Continue broad-spectrum antibiotics at this time however will likely narrow to ceftriaxone for SBP prophylaxis if cultures remain negative -Discontinue diuresis as patient's serum creatinine is slowly trending up -Continue pulmonary toilet -No current need for steroids -Pulmonary consulted-appreciate input ?Ammonia has improved ? EGD on 02/11/2022 showed resolution of her varices but there was a single bleeding angiodysplastic lesion that was cauterized and 3 small nonbleeding ulcers in the prepyloric area of the stomach ? Continue with Pepcid ? As she does have a partial portal vein thrombus which is known to the [facility] but they did not treat it with anticoagulation secondary to risk of bleeding 2. Bilateral bacterial conjunctivitis -Continue Cipro eyedrops 3. Chronic normocytic anemia/chronic thrombocytopenia -Hemoglobin is stable -Hemoglobin remained stable and is at 9.4 this morning -Continue to monitor -Platelet count remained stable and was 73,000 this morning -Repeat CBC in a.m. 4. HTN/HLD -Statin on hold while intubated -Blood pressures have been borderline and therefore scheduled antihypertensives are on hold at this time -Continue to monitor 5. DM-2 -Continue insulin every 6--> transition to before meals and at bedtime if patient is able to eat and extubated -Continue Accu-Cheks DVT: Heparin Charges/Coding Visit Charges Inpatient E&M: 76583 Subs Hosp L2
[2022-02-14] MEDS: Vancomycin IV 1,000 MG/200 ML BAG 200 MG IV (09:36)
[2022-02-14] MEDS: cloNIDine HCl 0.2 MG Tablet PO ×2 (09:50→21:31)
--- NOTE | 2022-02-14 10:17 | CASEMGMT ---
SW met with patient's daughters, Yola. Patient is still a bit confused today so that is why SW spoke with patient's daughters. SW explained that originally the discharge plan was to go home, however patient has become significantly weaker. SW provided patient's daughter with a list of SNF providers including quality and resource use data and consistent with the patient?s preferred geographic region, medical needs, and insurance network. SW explained that if this is the direction they go then they would need to pick three facilities that SW has highlighted as these are the ones that take patient's insurance. Lety Velez HEDIS MANAGER ETIENNE
[2022-02-14 10:52] LABS: Magnesium 2.3 mg/dL (1.6-2.6)
[2022-02-14] MEDS: Menthol/Lanolin/Calamine/Znox 113 GM Tube 1 APPLIC TOPICAL ×2 (12:10→21:21)
[2022-02-14] MEDS: Spironolactone 25 MG Tablet PO ×2 (12:10→21:31)
[2022-02-14] MEDS: Heparin Injection (Vial) 5,000 UNIT/ML VIAL 5000 UNIT SC ×2 (12:11→21:26)
[2022-02-14] MEDS: Famotidine 20 MG Tablet PO ×2 (12:12→21:31)
[2022-02-14] MEDS: Insulin Lispro 100 UNIT/ML INSULN.PEN SC (12:24)
[2022-02-14 12:35] LABS: Bedside Glucose 212 mg/dL (74-106)
--- NOTE | 2022-02-14 14:30 | CASEMGMT ---
ARCENIO stopped by patient's room to see if patient's daughters had any questions about the fci lists. They did not. Lety Velez ADMINISTRATIVE HEARING OFFICER ETIENNE
[2022-02-14] MEDS: 0.9% Saline Lock 10 ML Syringe IV (15:51)
[2022-02-14 17:00] LABS: Bedside Glucose 113 mg/dL (74-106)
--- NOTE | 2022-02-14 17:27 | NURSING ---
education re chronic illness deferred till acute illness resolving
[2022-02-15] VITALS (25 sets, daily range): BP systolic 92–192; BP diastolic 41–99; PULSE 66–104; RESP 12–20; TEMP 36.4–36.9; O2SAT 93–100
[2022-02-15] MEDS: Lactulose 20 GM/30 ML UDC PO ×4 (00:29→17:07)
[2022-02-15] MEDS: Metoprolol Tartrate 5 MG/5 ML Vial IV ×2 (00:35→06:24)
[2022-02-15] MEDS: Ciprofloxacin 0.3% 2.5ml Bottle 2 DRP EACH EYE ×4 (00:36→17:07)
[2022-02-15 02:36] LABS: Bedside Glucose 123 mg/dL (74-106)
[2022-02-15 05:41] LABS: Absolute Lymphocyte Count 1.06 X10^3/uL (0.83-4.51); Absolute Neutrophil Count 6.7 X10^3/uL (2.0-7.7); Basophil# 0.08 X10^3/uL; Basophil% 0.9 % (0-1); Eosinophil# 0.49 X10^3/uL; Eosinophils% 5.3 % (0-5); Hematocrit 34.4 % (37-47); Lymphocyte # 1.06 X10^3/ul (0.83-4.51); Lymphocyte % 11.4 % (19-41); Mean Corp Hgb Conc 29.1 g/dL (32-36); Mean Corpuscular Hgb 25.6 pg (27.0-32.0); Mean Corpuscular Volume 88.2 fL (81-99); Mean Platelet Vol. 10.6 fl (6.2-12.0); Monocyte# 0.97 X10^3/uL; Monocyte% 10.4 % (0-10); NRBC Flagged by Analyzer 0 % (0-5); Neutrophil # 6.69 X10^3/uL (2.7-7.7); Neutrophil % 71.6 % (47-70); POSITIVE MORPHOLOGY YES; Platelet Count 107 K/mm3 (150-450); RBC Distribution Width CV 20.1 % (11.6-14.6); RBC Distribution Width SD 60.5 fl (35.1-43.9); White Blood Count 9.3 K/mm3 (4.4-11.0)
[2022-02-15 05:44] LABS: Differential Indicated SCAN CRITERIA MET
[2022-02-15 05:56] LABS: ALB/GLOB Ratio 0.4 RATIO (0.9-2.4); AST(SGOT) 47 U/L (15-37); Alanine Aminotransfer ALT/SGPT 36 U/L (13-56); Albumin, Serum 1.6 g/dL (3.2-5.0); Alkaline Phosphatase 137 U/L (45-117); Anion Gap 0 (5-15); BUN 16 mg/dL (7-18); BUN/Creat Ratio 19.7 RATIO (10-20); Calcium,Total 8.6 mg/dL (8.5-10.1); Chloride 109 mmol/L (98-107); Creatinine, Serum 0.81 mg/dL (0.55-1.02); EST Glomerular Filtration Rate 73 mL/min (>60); Est Glom Filt Rate - Afr Amer 89 mL/min (>60); Estimated Creatinine Clearance 44.43 ml/min; Globulin 3.8 g/dL (2.2-4.2); Glucose 128 mg/dL (74-106); Potassium 3.7 mmol/L (3.5-5.1); Protein, Total 5.4 g/dL (6.4-8.2); Sodium Level 143 mmol/L (136-145)
[2022-02-15] MEDS: Nystatin Powder 15gm Bottle 1 APPLIC TOPICAL ×3 (06:25→20:38)
[2022-02-15 06:36] LABS: Bedside Glucose 121 mg/dL (74-106)
[2022-02-15 06:41] LABS: Anisocytosis 1+; Differential Comment SCANNED; Polychromasia RARE
--- NOTE | 2022-02-15 07:08 | PN.CC_ITS ---
Assessment & Plan Assessment/Plan (1) Acute respiratory failure with hypoxia and hypercapnia: (2) Hepatic encephalopathy: (3) Cirrhosis: (4) COPD (chronic obstructive pulmonary disease): (5) Asthma: PLAN: RECOMMENDATIONS: 1. Titrate blood pressure medications 2. Keep oxygen saturations between 90 and 94% 3. Continue as needed antihypertensives 4. Transition to home labetalol at lower dosing 5. Discontinuation of FMS 6. Okay to leave the intensive care unit from my perspective IMPRESSIONS: 1. Acute on chronic combined respiratory failure Patient much improved at this time. Patient did have significant hypercarbia initially requiring AVAPS rescue. Patient appears to be doing well this morning, but will need to watch closely. Mental status appears to be a good indicator and likely patient is responding to BiPAP. Hypercarbia will be exacerbated by hepatic encephalopathy, so reinitiation of lactulose with a voidance of hyperoxia will be paramount. ABG as needed for mental status 2. Hepatic encephalopathy in setting of cirrhosis/status post TIPS Patient is being aggressively treated with lactulose. Cannot exclude an element of SBP as patient does have ulcers, ascites and an elevated temperature. Patient has been empirically placed on antibiotics. Likely reasonable to complete a 7-day course of antibiotics. 3. 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 Will discuss with team. Systemic anticoagulation is currently held. Will attempt to obtain more information on baseline status. 4. Obesity/advanced age/COPD/PAH/diabetes mellitus Complicates care, management, recovery and prognosis. Okay to continue with baseline medications. Would be helpful to obtain information as to the severity of patient's COPD. Patient does appear to have chronic CO2 retention. Cannot exclude an element of hepatopulmonary syndrome. 5. Hypokalemia/hypophosphatemia Resolved. Clinical suspicion for losses secondary to lactulose/GI and diuretics. Aggressive repletion has been ordered. Renal function improved. Subjective Subjective Patient did well overnight. Patient did have confusion with intermittent compliance with BiPAP therapy. Patient is reporting rectal pain this morning, but has an FMS in place. Patient is readily interactive and was able to get out of bed yesterday. Objective Data Objective Data Vital Signs: Vital Signs Temp Pulse Resp BP Pulse Ox 36.9 C 86 18 150/53 H 98 02/15/22 04:00 02/15/22 06:24 02/15/22 06:00 02/15/22 06:24 02/15/22 06:00 Oxygen Flow Rate (L/min) 2 Oxygen Delivery Method Nasal Cannula Weight: 80.3 kg Body Mass Index (BMI) 33.5 Intake & Output: Intake and Output for Last 24 Hours 02/13/22 02/14/22 02/15/22 23:59 23:59 23:59 Intake Total 1587.5033 / 1587.5033 2270 / 2270 120 / 120 Output Total 2975 / 2975 1175 / 1375 400 / 400 Balance -1387.4967 / -1387.4967 1095 / 895 -280 / -280 Lab / Micro Data Result Diagrams: 02/15/22 04:40 02/15/22 04:40 Labs: Laboratory Results - last 24 hr 02/14/22 03:50: Phosphorus 4.0, Magnesium 2.3 02/14/22 12:22: POC Glucose 212 H 02/14/22 16:56: POC Glucose 113 H 02/15/22 00:32: POC Glucose 123 H 02/15/22 04:40: WBC 9.3, RBC 3.90 L, Hgb 10.0 L, Hct 34.4 L, MCV 88.2, MCH 25.6 L, MCHC 29.1 L, RDW Std Deviation 60.5 H, RDW Coeff of [place] 20.1 H, Plt Count 107 L, MPV 10.6, Immature Gran % (Auto) 0.400, Neut % (Auto) 71.6 H, Lymph % (Auto) 11.4 L, [place] % (Auto) 10.4 H, Eos % (Auto) 5.3 H, Baso % (Auto) 0.9, Absolute Neuts (auto) 6.7, Absolute Lymphs (auto) 1.06, Nucleated RBC % 0, Differential Comment SCANNED, Polychromasia RARE, Anisocytosis 1+ 02/15/22 04:40: Sodium 143, Potassium 3.7, Chloride 109 H, Carbon Dioxide 34.0 H , Anion Gap 0 L, BUN 16, Creatinine 0.81, Estim Creat Clear Calc 44.43, Est GFR (MDRD) Af Amer 89, Est GFR (MDRD) Non-Af 73, BUN/Creatinine Ratio 19.7, Glucose 128 H, Calcium 8.6, Total Bilirubin 1.00, AST 47 H, ALT 36, Alkaline Phosphatase 137 H, Total Protein 5.4 L, Albumin 1.6 L, Globulin 3.8, Albumin/Globulin Ratio 0.4 L 02/15/22 05:44: Ammonia 34.0 H 02/15/22 06:28: POC Glucose 121 H Micro: Microbiology 02/09/22 16:15 Blood Culture (Wb) - Anticubital Left Blood Culture - Final No growth in 5 days. 02/09/22 15:25 Blood Culture (Wb) - Anticubital Right Blood Culture - Final No growth in 5 days. 02/11/22 20:00 Sputum, Induced/Lukens Gram Stain - Final 02/11/22 20:00 Sputum, Induced/Lukens Respiratory Culture - Final 02/11/22 08:00 Nasal Secretion SARS-CoV-2 Antigen (Rapid) - Final Physical Exam Const alert and no apparent distress General Appearance: cooperative HEENT normocephalic and moist oral mucous membranes Eyes PERRL, EOMs intact bilaterally and conjunctivae normal Eyes Narrative: Glasses in place Neck supple and no JVD Chest inspection of chest normal Chest: symmetrical chest wall rise; Negative for crepitus Resp normal respiratory effort, no retractions, no use of accessory muscles and clear to auscultation bilaterally Auscultation: diminished lung sounds; Negative for crackles, rales, rhonchi or wheezes Cardio regular rate, regular rhythm, S1 normal heart sound, S2 normal heart sound and no murmurs GI soft to palpation, non-tender and non-distended; Negative for hepatosplenomegaly Extremity General Extremity: edema; Negative for clubbing or cyanosis Skin no rashes or lesions noted Neuro no focal motor deficits and no sensory deficits noted Psych affect normal Appearance: appropriate Charges/Coding Visit Charges Inpatient E&M: 19122 Subs Hosp L3
[2022-02-15] MEDS: Ipratropium/Albuterol Sulfate 3 ML AMPUL.NEB INHALATION ×3 (07:31→19:35)
[2022-02-15] MEDS: Heparin Injection (Vial) 5,000 UNIT/ML VIAL 5000 UNIT SC ×2 (08:32→22:32)
[2022-02-15] MEDS: cloNIDine HCl 0.2 MG Tablet PO ×2 (08:32→22:32)
[2022-02-15] MEDS: Famotidine 20 MG Tablet PO ×2 (08:32→22:32)
[2022-02-15] MEDS: Spironolactone 25 MG Tablet PO ×2 (08:33→22:32)
[2022-02-15] MEDS: Menthol/Lanolin/Calamine/Znox 113 GM Tube 1 APPLIC TOPICAL ×2 (08:36→20:37)
[2022-02-15] MEDS: Labetalol 100 MG Tablet PO ×2 (08:36→22:32)
[2022-02-15] MEDS: Vancomycin IV 1,000 MG/200 ML BAG 200 MG IV (10:09)
--- NOTE | 2022-02-15 10:17 | PN.HOSP_ITS ---
Subjective Subjective No major issues overnight, she had some compliance issues with BiPAP but otherwise doing well Objective Data Objective Data Vital Signs: Vital Signs Temp Pulse Resp BP Pulse Ox 98.4 F 94 20 H 174/64 H 95 02/15/22 08:00 02/15/22 09:00 02/15/22 09:00 02/15/22 09:00 02/15/22 09:00 Oxygen Flow Rate (L/min) 2 Oxygen Delivery Method Nasal Cannula Weight: 177 lb 0.499 oz Body Mass Index (BMI) 33.5 Intake & Output: Intake and Output for Last 24 Hours 02/14/22 02/15/22 02/16/22 03:59 03:59 03:59 Intake Total 1620.6133 / 1620.6133 2270 / 2270 120 / 120 Output Total 2975 / 2975 1375 / 1375 200 / 200 Balance -1354.3867 / -1354.3867 895 / 895 -80 / -80 Lab / Micro Data Result Diagrams: 02/15/22 04:40 02/15/22 04:40 Labs: Laboratory Results - last 24 hr 02/14/22 03:50: Phosphorus 4.0, Magnesium 2.3 02/14/22 12:22: POC Glucose 212 H 02/14/22 16:56: POC Glucose 113 H 02/15/22 00:32: POC Glucose 123 H 02/15/22 04:40: WBC 9.3, RBC 3.90 L, Hgb 10.0 L, Hct 34.4 L, MCV 88.2, MCH 25.6 L, MCHC 29.1 L, RDW Std Deviation 60.5 H, RDW Coeff of [place] 20.1 H, Plt Count 107 L, MPV 10.6, Immature Gran % (Auto) 0.400, Neut % (Auto) 71.6 H, Lymph % (Auto) 11.4 L, [place] % (Auto) 10.4 H, Eos % (Auto) 5.3 H, Baso % (Auto) 0.9, Absolute Neuts (auto) 6.7, Absolute Lymphs (auto) 1.06, Nucleated RBC % 0, Differential Comment SCANNED, Polychromasia RARE, Anisocytosis 1+ 02/15/22 04:40: Sodium 143, Potassium 3.7, Chloride 109 H, Carbon Dioxide 34.0 H , Anion Gap 0 L, BUN 16, Creatinine 0.81, Estim Creat Clear Calc 44.43, Est GFR (MDRD) Af Amer 89, Est GFR (MDRD) Non-Af 73, BUN/Creatinine Ratio 19.7, Glucose 128 H, Calcium 8.6, Total Bilirubin 1.00, AST 47 H, ALT 36, Alkaline Phosphatase 137 H, Total Protein 5.4 L, Albumin 1.6 L, Globulin 3.8, Albumin/Globulin Ratio 0.4 L 02/15/22 05:44: Ammonia 34.0 H 02/15/22 06:28: POC Glucose 121 H Micro: Microbiology 02/09/22 16:15 Blood Culture (Wb) - Anticubital Left Blood Culture - Final No growth in 5 days. 02/09/22 15:25 Blood Culture (Wb) - Anticubital Right Blood Culture - Final No growth in 5 days. 02/11/22 20:00 Sputum, Induced/Lukens Gram Stain - Final 02/11/22 20:00 Sputum, Induced/Lukens Respiratory Culture - Final 02/11/22 08:00 Nasal Secretion SARS-CoV-2 Antigen (Rapid) - Final Physical Exam Narrative Const alert and no apparent distress General Appearance: cooperative HEENT normocephalic and moist oral mucous membranes Eyes PERRL, EOMs intact bilaterally and conjunctivae normal Neck supple and no JVD Resp normal respiratory effort, no retractions, no use of accessory muscles and clear to auscultation bilaterally Auscultation: diminished lung sounds; Negative for crackles, rales, rhonchi or wheezes Cardio regular rate, regular rhythm, S1 normal heart sound, S2 normal heart sound and no murmurs GI soft to palpation, non-tender and non-distended; Negative for hepatosplenomegaly Extremity General Extremity: edema; Negative for clubbing or cyanosis Skin no rashes or lesions noted Neuro no focal motor deficits and no sensory deficits noted Psych affect normal Appearance: appropriate Assessment & Plan Assessment/Plan (1) Cirrhosis: (2) Bicytopenia: (3) Acute hepatic encephalopathy: (4) Acute respiratory failure with hypoxia and hypercapnia: (5) Hypokalemia: (6) Hypophosphatemia: (7) Elevated serum creatinine: (8) Hypernatremia: (9) Hyperchloremia: (10) Hepatic encephalopathy: PLAN: 1. 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 Her encephalopathy is also likely a side effect of her TIPS procedure, continue with lactulose -Intubated on 02/11/2022 for marked hypercapnia with a PCO2 of 140 and a pH of 7.11 -Sputum culture is pending however gram stain is unimpressive -Continue broad-spectrum antibiotics at this time however will likely narrow to ceftriaxone for SBP prophylaxis if cultures remain negative -Discontinue diuresis as patient's serum creatinine is slowly trending up -Continue pulmonary toilet -No current need for steroids -Pulmonary consulted-appreciate input ?Ammonia has improved ? EGD on 02/11/2022 showed resolution of her varices but there was a single bleeding angiodysplastic lesion that was cauterized and 3 small nonbleeding ulcers in the prepyloric area of the stomach ? Continue with Pepcid ? As she does have a partial portal vein thrombus which is known to the [facility] but they did not treat it with anticoagulation secondary to risk of bleeding 2. Bilateral bacterial conjunctivitis -Continue Cipro eyedrops 3. Chronic normocytic anemia/chronic thrombocytopenia -Hemoglobin is stable -Hemoglobin remained stable and is at 9.4 this morning -Continue to monitor -Platelet count remained stable -Repeat CBC in a.m. 4. HTN/HLD -Statin on hold while intubated -Blood pressures have been borderline and therefore scheduled antihypertensives are on hold at this time -Continue to monitor 5. DM-2 -Sliding scale insulin -Continue Accu-Cheks DVT: Heparin Charges/Coding Visit Charges Inpatient E&M: 76816 Subs Hosp L2
[2022-02-15] MEDS: Insulin Lispro 100 UNIT/ML INSULN.PEN SC ×2 (11:30→17:06)
[2022-02-15 11:40] LABS: Bedside Glucose 186 mg/dL (74-106)
--- NOTE | 2022-02-15 13:24 | CASEMGMT ---
Social Work SW spoke w/pt and daughters in room in regard to discharge plan. Daughter Valentine gomes will be there w/pt and 11/05. Additionally they have other family available to stop in and help whenever needed. They would like aide services added to home health. SW asked if they have ever looked into [employer]. They have not, would like additional information. SW gave daughters information on [employer], they plan to speak with other family members and possibly follow up. Plan at this time will be to return home w/home health, and family would like to add aide services to the home health. SW notified VITOR Freeman
--- NOTE | 2022-02-15 16:11 | PN_ITS ---
Subjective Subjective Patient is maintaining normal mentation. She is eating without any problems. She does not want to wear her BiPAP to stop her from going back into respiratory acidosis. Objective Data Objective Data Vital Signs: Vital Signs Temp Pulse Resp BP Pulse Ox 98.5 F 82 18 107/41 L 97 02/15/22 11:00 02/15/22 15:03 02/15/22 13:49 02/15/22 11:00 02/15/22 11:17 Oxygen Flow Rate (L/min) 2 Oxygen Delivery Method Nasal Cannula Weight: 177 lb 0.499 oz Body Mass Index (BMI) 33.5 Intake & Output: Intake and Output for Last 24 Hours 02/13/22 02/14/22 02/15/22 23:59 23:59 23:59 Intake Total 1587.5033 / 1587.5033 2270 / 2270 720 / 720 Output Total 2975 / 2975 1175 / 1375 1100 / 1100 Balance -1387.4967 / -1387.4967 1095 / 895 -380 / -380 Lab / Micro Data Result Diagrams: 02/15/22 04:40 02/15/22 04:40 Labs: Laboratory Results - last 24 hr 02/14/22 16:56: POC Glucose 113 H 02/15/22 00:32: POC Glucose 123 H 02/15/22 04:40: WBC 9.3, RBC 3.90 L, Hgb 10.0 L, Hct 34.4 L, MCV 88.2, MCH 25.6 L, MCHC 29.1 L, RDW Std Deviation 60.5 H, RDW Coeff of [place] 20.1 H, Plt Count 107 L, MPV 10.6, Immature Gran % (Auto) 0.400, Neut % (Auto) 71.6 H, Lymph % (Auto) 11.4 L, [place] % (Auto) 10.4 H, Eos % (Auto) 5.3 H, Baso % (Auto) 0.9, Absolute Neuts (auto) 6.7, Absolute Lymphs (auto) 1.06, Nucleated RBC % 0, Differential Comment SCANNED, Polychromasia RARE, Anisocytosis 1+ 02/15/22 04:40: Sodium 143, Potassium 3.7, Chloride 109 H, Carbon Dioxide 34.0 H , Anion Gap 0 L, BUN 16, Creatinine 0.81, Estim Creat Clear Calc 44.43, Est GFR (MDRD) Af Amer 89, Est GFR (MDRD) Non-Af 73, BUN/Creatinine Ratio 19.7, Glucose 128 H, Calcium 8.6, Total Bilirubin 1.00, AST 47 H, ALT 36, Alkaline Phosphatase 137 H, Total Protein 5.4 L, Albumin 1.6 L, Globulin 3.8, Albumin/Globulin Ratio 0.4 L 02/15/22 05:44: Ammonia 34.0 H 02/15/22 06:28: POC Glucose 121 H 02/15/22 11:30: POC Glucose 186 H Micro: Microbiology 02/09/22 16:15 Blood Culture (Wb) - Anticubital Left Blood Culture - Final No growth in 5 days. 02/09/22 15:25 Blood Culture (Wb) - Anticubital Right Blood Culture - Final No growth in 5 days. 02/11/22 20:00 Sputum, Induced/Lukens Gram Stain - Final 02/11/22 20:00 Sputum, Induced/Lukens Respiratory Culture - Final 02/11/22 08:00 Nasal Secretion SARS-CoV-2 Antigen (Rapid) - Final Physical Exam Const alert General Appearance: cooperative Orientation / Consciousness: oriented to person HEENT hearing grossly normal bilaterally Head and Scalp: normal to inspection Face and Sinus: face symmetric Nose: external nose normal Mouth: oral and palatal mucosa normal Eyes conjunctivae normal General Eye: normal appearance of both eyes Neck full ROM General: normal visual inspection Lymph Lymphatic: no lymphadenopathy noted Chest inspection of chest normal and palpation of chest normal Chest: symmetrical chest wall rise Resp normal respiratory effort Effort and Inspection: able to speak in complete sentences Cardio regular rate GI non-distended Percussion: normal to percussion Rectal Exam: deferred Neuro Speech: speech normal Gait (Neuro): normal gait Assessment & Plan Assessment/Plan (1) Hepatic encephalopathy: PLAN: Patient has not shown any signs of hepatic encephalopathy at the time. She did have severe hepatic encephalopathy based associated with respiratory acidosis. Her ammonia was treated with the rectal lactulose therapy. She will need to be maintained on 20 cc of lactulose every 6 hours due to the fact that she has a TIPS placed and she is more at risk for developing hepatic encephalopathy. (2) Bicytopenia: PLAN: Bicytopenia secondary to cirrhosis. Seems to be stable at this time. (3) Cirrhosis: PLAN: Plan will be maintained blood pressure around 110/50 with a heart rate of 60. Beta-paris therapy now placed diuretic therapy. She seems to be stable from a cirrhotic standpoint with not much appreciable ascites, no sign of bleeding and no signs of gross encephalopathy at this time. Charges/Coding Visit Charges Inpatient E&M: 05544 [facility] Hosp L3
[2022-02-15 17:26] LABS: Bedside Glucose 151 mg/dL (74-106)
[2022-02-15 17:36] LABS: Allen Test Positive; Base Excess 10 mmol/L (-2 to +2); Bicarbonate 35.5 mmol/L (22-26); Blood Gas Specimen Type ART; O2 Delivery Device Cannula; PO2 62 mmHG (75-100); SITE L Radial; SO2 90 % (95-99); Total Carbon Dioxide 37 mmol/L; pCO2 61.1 mmHg (35-45); pH 7.37 (7.35-7.45)
[2022-02-15 22:46] LABS: Bedside Glucose 123 mg/dL (74-106)
[2022-02-16] VITALS (18 sets, daily range): BP systolic 124–149; BP diastolic 40–53; PULSE 67–132; RESP 16–19; TEMP 36.4–36.9; O2SAT 86–100
[2022-02-16] MEDS: Ciprofloxacin 0.3% 2.5ml Bottle 2 DRP EACH EYE ×5 (00:18→23:04)
[2022-02-16] MEDS: Lactulose 20 GM/30 ML UDC PO ×5 (00:18→23:04)
[2022-02-16] MEDS: 0.9% Saline Lock 10 ML Syringe IV (00:18)
[2022-02-16] MEDS: Ipratropium/Albuterol Sulfate 3 ML AMPUL.NEB INHALATION ×2 (01:14→19:31)
[2022-02-16] MEDS: Nystatin Powder 15gm Bottle 1 APPLIC TOPICAL ×3 (06:35→21:16)
[2022-02-16 07:05] LABS: Bedside Glucose 120 mg/dL (74-106)
--- NOTE | 2022-02-16 08:04 | PN.CC_ITS ---
Assessment & Plan Assessment/Plan (1) Acute respiratory failure with hypoxia and hypercapnia: (2) Hepatic encephalopathy: (3) Cirrhosis: (4) COPD (chronic obstructive pulmonary disease): (5) Asthma: PLAN: RECOMMENDATIONS: 1. Continue to titrate blood pressure medications 2. Keep oxygen saturations between 90 and 94% 3. Walking oximetry prior to discharge 4. Titration of lactulose per GI 5. Hemodynamically stable on room air. Will sign off from a critical care perspective 6. Okay to follow-up with nurse practitioner 2 weeks after discharge if willing to be worked up for sleep apnea IMPRESSIONS: 1. Acute on chronic combined respiratory failure Patient much improved at this time. Patient did have significant hy percarbia initially requiring AVAPS rescue. Patient appears to be doing well this morning. Mental status appears to be a good indicator and likely patient is responding to BiPAP. Hypercarbia will be exacerbated by hepatic encephalopathy, so reinitiation of lactulose with avoidance of hyperoxia will be paramount. Patient may require supplemental oxygen on discharge and should have a walking oximetry. 2. Hepatic encephalopathy in setting of cirrhosis/status post TIPS Patient is being aggressively treated with lactulose. Cannot exclude an element of SBP as patient does have ulcers, ascites and an elevated temperature. Patient has been empirically placed on antibiotics. Likely reasonable to complete a 7-day course of antibiotics. Patient with significant lactulose, so diarrhea may be secondary to dosing. If patient develops fever or leukocytosis, evaluation for C. difficile would be appropriate. 3. 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 Will discuss with team. Systemic anticoagulation is currently held. Will attempt to obtain more information on baseline status. 4. Obesity/advanced age/COPD/PAH/diabetes mellitus Complicates care, management, recovery and prognosis. Okay to continue with baseline medications. Would be helpful to obtain information as to the severity of patient's COPD. Patient does appear to have chronic CO2 retention. Cannot exclude an element of hepatopulmonary syndrome. 5. Hypokalemia/hypophosphatemia Resolved. Clinical suspicion for losses secondary to lactulose/GI and diuretics. Aggressive repletion has been ordered. Renal function improved. Subjective Subjective Patient did well overnight. No acute issues were reported. Patient stating that she is hungry this morning. Patient denies any chest pain or shortness of breath. Patient is relatively calm and directable. Patient did report significant diarrhea overnight limiting ability to sleep Objective Data Objective Data Vital Signs: Vital Signs Temp Pulse Resp BP Pulse Ox 36.4 C L 72 16 149/49 H 96 02/16/22 04:24 02/16/22 07:00 02/16/22 04:24 02/16/22 04:24 02/16/22 04:24 Oxygen Flow Rate (L/min) 2 Oxygen Delivery Method Nasal Cannula Weight: 79.9 kg Body Mass Index (BMI) 33.5 Intake & Output: Intake and Output for Last 24 Hours 02/14/22 02/15/22 02/16/22 23:59 23:59 23:59 Intake Total 2270 / 2270 1200 / 1200 340 / 340 Output Total 1175 / 1375 1100 / 1100 Balance 1095 / 895 100 / 100 340 / 340 Lab / Micro Data Result Diagrams: 02/15/22 04:40 02/15/22 04:40 Labs: Laboratory Results - last 24 hr 02/15/22 11:30: POC Glucose 186 H 02/15/22 17:04: POC Glucose 151 H 02/15/22 22:31: POC Glucose 123 H 02/16/22 06:34: POC Glucose 120 H Micro: Microbiology 02/09/22 16:15 Blood Culture (Wb) - Anticubital Left Blood Culture - Final No growth in 5 days. 02/09/22 15:25 Blood Culture (Wb) - Anticubital Right Blood Culture - Final No growth in 5 days. 02/11/22 20:00 Sputum, Induced/Lukens Gram Stain - Final 02/11/22 20:00 Sputum, Induced/Lukens Respiratory Culture - Final 02/11/22 08:00 Nasal Secretion SARS-CoV-2 Antigen (Rapid) - Final ABG Data ABG results: ABG 02/15/22 17:32 Specimen Type ART Sample Site L Radial pH 7.37 Bicarbonate Actual 35.5 H Total CO2 37 Base Excess 10 H O2 Saturation 90 L ABG pCO2 61.1 H ABG pO2 62 L Eliecer Test Positive O2 Delivery Device Cannula Liter Flow 2.0 Physical Exam Const alert and no apparent distress General Appearance: cooperative Orientation / Consciousness: oriented to person and oriented to place HEENT normocephalic and moist oral mucous membranes Eyes PERRL, EOMs intact bilaterally and conjunctivae normal Eyes Narrative: Glasses in place Neck supple and no JVD Chest inspection of chest normal Chest: symmetrical chest wall rise; Negative for crepitus Resp normal respiratory effort, no retractions, no use of accessory muscles and clear to auscultation bilaterally Auscultation: diminished lung sounds; Negative for crackles, rales, rhonchi or wheezes Cardio regular rate, regular rhythm, S1 normal heart sound, S2 normal heart sound and no murmurs GI soft to palpation, non-tender and non-distended; Negative for hepatosplenomegaly Extremity General Extremity: edema; Negative for clubbing or cyanosis Skin no rashes or lesions noted Neuro no focal motor deficits and no sensory deficits noted Psych affect normal Appearance: appropriate Charges/Coding Visit Charges Inpatient E&M: 94138 Subs Hosp L2
[2022-02-16] MEDS: Spironolactone 25 MG Tablet PO ×2 (09:05→21:10)
[2022-02-16] MEDS: Heparin Injection (Vial) 5,000 UNIT/ML VIAL 5000 UNIT SC ×2 (09:05→21:10)
[2022-02-16] MEDS: cloNIDine HCl 0.2 MG Tablet PO ×2 (09:06→21:10)
[2022-02-16] MEDS: Menthol/Lanolin/Calamine/Znox 113 GM Tube 1 APPLIC TOPICAL ×2 (09:06→21:17)
[2022-02-16] MEDS: Labetalol 100 MG Tablet PO ×2 (09:07→21:10)
[2022-02-16] MEDS: Famotidine 20 MG Tablet PO ×2 (09:07→21:10)
[2022-02-16 09:10] LABS: Absolute Lymphocyte Count 0.72 X10^3/uL (0.83-4.51); Absolute Neutrophil Count 2.8 X10^3/uL (2.0-7.7); Basophil# 0.04 X10^3/uL; Basophil% 0.9 % (0-1); Eosinophil# 0.23 X10^3/uL; Eosinophils% 5.3 % (0-5); Hemoglobin 9.1 g/dL (12.0-15.0); Lymphocyte # 0.72 X10^3/ul (0.83-4.51); Lymphocyte % 16.7 % (19-41); Mean Corp Hgb Conc 27.6 g/dL (32-36); Mean Corpuscular Hgb 25.6 pg (27.0-32.0); Mean Corpuscular Volume 92.7 fL (81-99); Mean Platelet Vol. 9.9 fl (6.2-12.0); Monocyte# 0.48 X10^3/uL; Monocyte% 11.2 % (0-10); NRBC Flagged by Analyzer 0 % (0-5); Neutrophil # 2.81 X10^3/uL (2.7-7.7); Neutrophil % 65.4 % (47-70); POSITIVE COUNT YES; POSITIVE MORPHOLOGY YES; Platelet Count 75 K/mm3 (150-450); RBC Distribution Width CV 20.5 % (11.6-14.6); RBC Distribution Width SD 66.3 fl (35.1-43.9); Red Blood Count 3.56 M/mm3 (4.2-5.4); White Blood Count 4.3 K/mm3 (4.4-11.0)
[2022-02-16 09:30] LABS: Differential Indicated SCAN CRITERIA MET
[2022-02-16 09:39] LABS: Anion Gap 0 (5-15); BUN 15 mg/dL (7-18); BUN/Creat Ratio 17.6 RATIO (10-20); Calcium,Total 8.3 mg/dL (8.5-10.1); Chloride 108 mmol/L (98-107); Creatinine, Serum 0.85 mg/dL (0.55-1.02); EST Glomerular Filtration Rate 69 mL/min (>60); Est Glom Filt Rate - Afr Amer 84 mL/min (>60); Estimated Creatinine Clearance 42.34 ml/min; Glucose 175 mg/dL (74-106); Potassium 3.7 mmol/L (3.5-5.1); Sodium Level 145 mmol/L (136-145)
[2022-02-16 09:42] LABS: Vancomycin, Trough Level 14.9 ug/mL (5.0-15.0)
[2022-02-16 10:14] LABS: Anisocytosis 1+; Differential Comment SCANNED; Hypochromasia 1+; Ovalocyte 1+; Platelet Estimate MOD DEC (ADEQ)
[2022-02-16] MEDS: Vancomycin IV 1,000 MG/200 ML BAG 200 MG IV (10:17)
--- NOTE | 2022-02-16 11:10 | PCM.PN.HOSP ---
Subjective Subjective Doing well, reinforced the need for BiPAP whenever she sleeps Objective Data Objective Data Vital Signs: Vital Signs Temp Pulse Resp BP Pulse Ox 98.5 F 76 17 133/45 H 97 02/16/22 09:01 02/16/22 09:01 02/16/22 09:01 02/16/22 09:01 02/16/22 09:01 Oxygen Flow Rate (L/min) 2 Oxygen Delivery Method Nasal Cannula Weight: 176 lb 2.389 oz Body Mass Index (BMI) 33.5 Intake & Output: Intake and Output for Last 24 Hours 02/15/22 02/16/22 02/17/22 03:59 03:59 03:59 Intake Total 2270 / 2270 1300 / 1300 240 / 240 Output Total 1375 / 1375 900 / 900 Balance 895 / 895 400 / 400 240 / 240 Lab / Micro Data Result Diagrams: 02/16/22 09:00 02/16/22 09:00 Labs: Laboratory Results - last 24 hr 02/15/22 11:30: POC Glucose 186 H 02/15/22 17:04: POC Glucose 151 H 02/15/22 22:31: POC Glucose 123 H 02/16/22 06:34: POC Glucose 120 H 02/16/22 09:00: Vancomycin Trough 14.9 02/16/22 09:00: WBC 4.3 L, RBC 3.56 L, Hgb 9.1 L, Hct 33.0 L, MCV 92.7 D, MCH 25.6 L, MCHC 27.6 L D, RDW Std Deviation 66.3 H, RDW Coeff of Jordan 20.5 H, Plt Count 75 L, MPV 9.9, Immature Gran % (Auto) 0.500, Neut % (Auto) 65.4, Lymph % (Auto) 16.7 L, [place] % (Auto) 11.2 H, Eos % (Auto) 5.3 H, Baso % (Auto) 0.9, Absolute Neuts (auto) 2.8, Absolute Lymphs (auto) 0.72 L, Nucleated RBC % 0, Differential Comment SCANNED, Platelet Estimate MOD DEC, Hypochromasia 1+, Anisocytosis 1+, Ovalocytes 1+ 02/16/22 09:00: Sodium 145, Potassium 3.7, Chloride 108 H, Carbon Dioxide 37.0 H, Anion Gap 0 L, BUN 15, Creatinine 0.85, Estim Creat Clear Calc 42.34, Est GFR (MDRD) Af Amer 84, Est GFR (MDRD) Non-Af 69, BUN/Creatinine Ratio 17.6, Glucose 175 H, Calcium 8.3 L Micro: Microbiology 02/09/22 16:15 Blood Culture (Wb) - Anticubital Left Blood Culture - Final No growth in 5 days. 02/09/22 15:25 Blood Culture (Wb) - Anticubital Right Blood Culture - Final No growth in 5 days. 02/11/22 20:00 Sputum, Induced/Lukens Gram Stain - Final 02/11/22 20:00 Sputum, Induced/Lukens Respiratory Culture - Final 02/11/22 08:00 Nasal Secretion SARS-CoV-2 Antigen (Rapid) - Final ABG Data ABG results: ABG 02/15/22 17:32 Specimen Type ART Sample Site L Radial pH 7.37 Bicarbonate Actual 35.5 H Total CO2 37 Base Excess 10 H O2 Saturation 90 L ABG pCO2 61.1 H ABG pO2 62 L Eliecer Test Positive O2 Delivery Device Cannula Liter Flow 2.0 Physical Exam Narrative Const alert and oriented, no apparent distress General Appearance: cooperative HEENT normocephalic and moist oral mucous membranes Eyes PERRL, EOMs intact bilaterally and conjunctivae normal Neck supple and no JVD Resp normal respiratory effort, no retractions, no use of accessory muscles and clear to auscultation bilaterally Auscultation: diminished lung sounds; Negative for crackles, rales, rhonchi or wheezes Cardio regular rate, regular rhythm, S1 normal heart sound, S2 normal heart sound and no murmurs GI soft to palpation, non-tender and non-distended; Negative for hepatosplenomegaly Extremity General Extremity: edema; Negative for clubbing or cyanosis Skin no rashes or lesions noted Neuro no focal motor deficits and no sensory deficits noted Psych affect normal Appearance: appropriate Assessment & Plan Assessment/Plan (1) Cirrhosis: (2) Bicytopenia: (3) Acute hepatic encephalopathy: (4) Acute respiratory failure with hypoxia and hypercapnia: (5) Hypokalemia: (6) Hypophosphatemia: (7) Elevated serum creatinine: (8) Hypernatremia: (9) Hyperchloremia: (10) Hepatic encephalopathy: PLAN: 1. 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 Her encephalopathy is also likely a side effect of her TIPS procedure, continue with lactulose -Intubated on 02/11/2022 for marked hypercapnia with a PCO2 of 140 and a pH of 7.11 -Appreciate GI assistance, she is still on meropenem and vancomycin, can likely discontinue both in 2 days -Continue pulmonary toilet -Pulmonary consulted-appreciate input ?Ammonia has improved, will continue lactulose ? EGD on 02/11/2022 showed resolution of her varices but there was a single bleeding angiodysplastic lesion that was cauterized and 3 small nonbleeding ulcers in the prepyloric area of the stomach ? Continue with Pepcid ? As she does have a partial portal vein thrombus which is known to the [facility] but they did not treat it with anticoagulation secondary to risk of bleeding 2. Bilateral bacterial conjunctivitis -Continue Cipro eyedrops 3. Chronic normocytic anemia/chronic thrombocytopenia -Hemoglobin is stable -Continue to monitor -Platelet count remained stable -Repeat CBC in a.m. 4. HTN/HLD ?She has resumed her blood pressure medications, continue with clonidine, labetalol, hydralazine -Continue to monitor 5. DM-2 -Sliding scale insulin -Continue Accu-Cheks DVT: Heparin Charges/Coding Visit Charges Inpatient E&M: 44483 Subs Hosp L2
--- NOTE | 2022-02-16 11:29 | PHA.PHARE_ITS ---
Consult Pharmacy has been consulted to manage selected antiobiotic: Vancomycin Type of Consult: Follow-up Labs: Sodium 145 mmol/L (136-145) 02/16/22 09:00 Potassium 3.7 mmol/L (3.5-5.1) 02/16/22 09:00 Chloride 108 mmol/L (98-107) H 02/16/22 09:00 Carbon Dioxide 37.0 mmol/L (21.0-32.0) H 02/16/22 09:00 Anion Gap 0 (5-15) L 02/16/22 09:00 BUN 15 mg/dL (7-18) 02/16/22 09:00 Creatinine 0.85 mg/dL (0.55-1.02) 02/16/22 09:00 Est GFR (MDRD) Af Amer 84 mL/min (>60) 02/16/22 09:00 Est GFR (MDRD) Non-Af 69 mL/min (>60) 02/16/22 09:00 BUN/Creatinine Ratio 17.6 RATIO (10-20) 02/16/22 09:00 Glucose 175 mg/dL (74-106) H 02/16/22 09:00 Vancomycin Trough 14.9 ug/mL (5.0-15.0) 02/16/22 09:00 Random Vancomycin 19.6 ug/mL (0.0-15.0) H 02/14/22 03:50 Microbiology: Microbiology 02/09/22 16:15 Blood Culture (Wb) - Anticubital Left Blood Culture - Final No growth in 5 days. 02/09/22 15:25 Blood Culture (Wb) - Anticubital Right Blood Culture - Final No growth in 5 days. 02/11/22 20:00 Sputum, Induced/Lukens Gram Stain - Final 02/11/22 20:00 Sputum, Induced/Lukens Respiratory Culture - Final 02/11/22 08:00 Nasal Secretion SARS-CoV-2 Antigen (Rapid) - Final Pharmacy Plan for Drug Dosing: VANCOMYCIN LEVEL RECEIVED Current Vancomycin Dose: 1000MG Q24 Number of Doses Received: 7 Vancomycin Level: 14.9 MG/DL Hours Since Last Dose: 23 Renal Function: SCR 0.85, CRCL 55.2 ML/MIN Renal Function Trend: STABLE Vancomycin Plan/Comments: 23 hour trough is just barely subtherapeutic. Next dose has already been hung. Since trough is so close to being therapeutic and bag has been hung, will get a level in 24 hours to see if next level is th erapeutic. Pending Level: 02/17/22 @ 0900 Pharmacy Service will continue to monitor and adjust dosing as required.
[2022-02-16 11:35] LABS: Bedside Glucose 165 mg/dL (74-106)
[2022-02-16] MEDS: Insulin Lispro 100 UNIT/ML INSULN.PEN SC ×2 (12:19→16:56)
[2022-02-16 17:10] LABS: Bedside Glucose 154 mg/dL (74-106)
[2022-02-16 21:56] LABS: Bedside Glucose 151 mg/dL (74-106)
[2022-02-17] VITALS (13 sets, daily range): BP systolic 125–138; BP diastolic 45–56; PULSE 62–84; RESP 16–20; TEMP 36.3–36.8; O2SAT 80–98
--- NOTE | 2022-02-17 00:32 | NURSING ---
pt wore bipap from 2315 to 0030, pt a&ox3 and requested bipap to be remove at this time. Switched pt to 2L NC, 02 sats at 96% cont pulse ox in the room. Notified RT.
[2022-02-17] MEDS: 0.9% Saline Lock 10 ML Syringe IV (00:57)
[2022-02-17 06:29] LABS: Absolute Lymphocyte Count 0.89 X10^3/uL (0.83-4.51); Absolute Neutrophil Count 2.3 X10^3/uL (2.0-7.7); Basophil# 0.05 X10^3/uL; Basophil% 1.3 % (0-1); Eosinophil# 0.23 X10^3/uL; Eosinophils% 5.9 % (0-5); Hematocrit 31.3 % (37-47); Hemoglobin 8.9 g/dL (12.0-15.0); Lymphocyte # 0.89 X10^3/ul (0.83-4.51); Lymphocyte % 22.7 % (19-41); Mean Corp Hgb Conc 28.4 g/dL (32-36); Mean Corpuscular Hgb 25.8 pg (27.0-32.0); Mean Corpuscular Volume 90.7 fL (81-99); Mean Platelet Vol. 11.1 fl (6.2-12.0); Monocyte# 0.43 X10^3/uL; NRBC Flagged by Analyzer 0 % (0-5); Neutrophil % 58.6 % (47-70); POSITIVE COUNT YES; POSITIVE MORPHOLOGY YES; Platelet Count 75 K/mm3 (150-450); RBC Distribution Width CV 20.4 % (11.6-14.6); RBC Distribution Width SD 65.4 fl (35.1-43.9); Red Blood Count 3.45 M/mm3 (4.2-5.4); White Blood Count 3.9 K/mm3 (4.4-11.0)
[2022-02-17 06:30] LABS: Differential Indicated SCAN CRITERIA MET
[2022-02-17] MEDS: Lactulose 20 GM/30 ML UDC PO ×2 (06:33→11:41)
[2022-02-17] MEDS: Nystatin Powder 15gm Bottle 1 APPLIC TOPICAL (06:33)
[2022-02-17] MEDS: Ciprofloxacin 0.3% 2.5ml Bottle 2 DRP EACH EYE ×2 (06:33→11:41)
[2022-02-17 06:46] LABS: Bedside Glucose 114 mg/dL (74-106)
[2022-02-17 06:47] LABS: Anisocytosis 2+
[2022-02-17 06:55] LABS: ALB/GLOB Ratio 0.5 RATIO (0.9-2.4); AST(SGOT) 54 U/L (15-37); Alanine Aminotransfer ALT/SGPT 37 U/L (13-56); Albumin, Serum 1.6 g/dL (3.2-5.0); Alkaline Phosphatase 135 U/L (45-117); Anion Gap 1 (5-15); BUN 14 mg/dL (7-18); Calcium,Total 8.3 mg/dL (8.5-10.1); Chloride 108 mmol/L (98-107); Creatinine, Serum 0.67 mg/dL (0.55-1.02); EST Glomerular Filtration Rate 92 mL/min (>60); Est Glom Filt Rate - Afr Amer 111 mL/min (>60); Estimated Creatinine Clearance 35.99 ml/min; Globulin 3.3 g/dL (2.2-4.2); Glucose 107 mg/dL (74-106); Potassium 3.9 mmol/L (3.5-5.1); Protein, Total 4.9 g/dL (6.4-8.2); Sodium Level 145 mmol/L (136-145)
[2022-02-17] MEDS: Ipratropium/Albuterol Sulfate 3 ML AMPUL.NEB INHALATION (07:03)
[2022-02-17] MEDS: Menthol/Lanolin/Calamine/Znox 113 GM Tube 1 APPLIC TOPICAL (08:26)
[2022-02-17] MEDS: cloNIDine HCl 0.2 MG Tablet PO (08:27)
[2022-02-17] MEDS: Spironolactone 25 MG Tablet PO (08:27)
[2022-02-17] MEDS: Famotidine 20 MG Tablet PO (08:27)
[2022-02-17] MEDS: Labetalol 100 MG Tablet PO (08:27)
[2022-02-17] MEDS: Heparin Injection (Vial) 5,000 UNIT/ML VIAL 5000 UNIT SC (08:27)
[2022-02-17 09:37] LABS: Vancomycin, Trough Level 16.1 ug/mL (5.0-15.0)
--- NOTE | 2022-02-17 10:13 | CASEMGMT ---
Addendum entered by Arline Lyon 02/17/22 13:00: Per Sully GONZALEZ, pt does not qualify for increased home oxygen at this time. Pt to be provided with [facility] home pulse with RN instructions at discharge. Pt voices no further questions/concerns/needs. Sae GONZALEZ CM Addendum entered by Arline Lyon 02/17/22 11:09: Pt is aware that she is needing assist of 2 and states she will have family with her 24/7 at home. Sae GONZALEZ CM Addendum entered by Arline Lyon 02/17/22 10:38: This LISA CM to room and pt states her plan is to still go home with resumption of HHC and addition of aide. ARGENIS order and clinicals faxed to [facility]. Pt's oxygen to be tested on 2L at rest and w/ ambulation. Pt to be provided with home pulse ox for discharge. Per [facility], they state they have been trying to reach pt regarding hospital bed delivery and pt states for them to contact daughterBriseyda and [facility] updated. Pt states that she has hospital bed at home but she believes they are paying for it. CM to follow for home oxygen testing and any further discharge planning/needs. Sae GONZALEZ CM Original Note: Per [facility], pt's order is for 2L nc continuous and pt will be tested on this at discharge. RN updated, voices understanding. Sae GONZALEZ CM
[2022-02-17] MEDS: Insulin Lispro 100 UNIT/ML INSULN.PEN SC (11:40)
--- NOTE | 2022-02-17 11:40 | PCM.DC.SUM ---
Providers Date of Admission: 02/09/22 Primary Care Physician: Dr. Josiah Smith MD Consultations 02/10/22 10:13 Consult: Gastroenterology Routine Consulting Provider: [facility] Reason for Consult: Cirrhosis, hepatic encephalopathy EMERGENT Consult: No Notified: Yes Date Notified: 02/10/22 Time Notified: 10:13 Method of Notification: Text 02/11/22 19:43 Consult: [employer] / Pulmonary Medicine Routine Consulting Provider: Jeremie Skinner Reason for Consult: Vent management EMERGENT Consult: No Notified: Yes Date Notified: 02/11/22 Time Notified: 19:43 Method of Notification: Verbal Reason For Visit: ENCEPHALOPATHY, CHF Diagnosis Discharge Diagnosis (1) Cirrhosis: Status: Acute Code(s): K74.60 - Unspecified cirrhosis of liver (2) Bicytopenia: Status: Acute Code(s): D75.89 - Other specified diseases of blood and blood-forming organs (3) Acute hepatic encephalopathy: Status: Acute Code(s): K72.00 - Acute and subacute hepatic failure without coma (4) Acute respiratory failure with hypoxia and hypercapnia: Status: Suspected Code(s): J96.01 - Acute respiratory failure with hypoxia; J96.02 - Acute respiratory failure with hypercapnia (5) Hypokalemia: Status: Acute Code(s): E87.6 - Hypokalemia (6) Hypophosphatemia: Status: Acute Code(s): E83.39 - Other disorders of phosphorus metabolism (7) Elevated serum creatinine: Status: Acute Code(s): R79.89 - Other specified abnormal findings of blood chemistry (8) Hypernatremia: Status: Acute Code(s): E87.0 - Hyperosmolality and hypernatremia (9) Hyperchloremia: Status: Acute Code(s): E87.8 - Other disorders of electrolyte and fluid balance, not elsewhere classified (10) Hepatic encephalopathy: Status: Acute Code(s): K72.90 - Hepatic failure, unspecified without coma Medications at Discharge Home Medications albuterol sulfate 2 puff INHALATION Q4H PRN PRN 07/04/16 clonidine HCl 0.1 mg tablet 0.1 mg PO TID tab 11/20/17 clonidine HCl 0.2 mg PO BID 01/06/19 albuterol sulfate 2.5 mg INHALATION Q4H PRN PRN 01/30/21 furosemide 30 mg PO BID 01/30/21 artificial tears solution 1 drp OPHTHALMIC (EYE) TID 02/09/22 atorvastatin [Lipitor] 40 mg PO QHS 02/09/22 labetalol 100 mg PO BID #60 tab 02/17/22 lactulose 20 g PO .qid #3000 ml 02/17/22 spironolactone 25 mg PO BID #60 tab 02/17/22 Hospital Course Procedures EGD Summary of Care Provided Minutes Spent on Discharge: 45 Hospital Course: Patient is a 71 y/ Female with a PMH as outlined who was admitted via the ED on 02/12/2022 with with a complaint of hallucinations. She had been seen at [facility] weeks prior to admission for hernia repair secondary to internal bleeding. She also had a history of cirrhosis due to nonalcoholic steatohepatitis and had had bile duct stent and a TIPS procedure. On admission she was hypoxic and was saturating at 78% on room air. She was placed on 3 L of oxygen. Labs and were significant for ammonia of 62 and BNP of 825. Urinalysis was normal. She was admitted and managed for acute hepatic encephalopathy due to liver cirrhosis with esophageal varices. Her ammonia level was elevated. She was also managed for acute hypoxic and hypercapnic respiratory failure due to acute on chronic heart failure with preserved ejection fraction. She was started on diuresis with IV Lasix. She also started on lactulose for encephalopathy. Gastroenterology was consulted. She had EGD which showed a single bleeding angiodysplastic lesion in the stomach which was treated with argon plasma coagulation. Hospital course was complicated by worsening encephalopathy and also severe respiratory acidosis with marked hypercapnia. She was placed on noninvasive ventilation but this was not adequate for CO2 reduction so she was intubated and transferred to the ICU. Critical care was consulted. She was subsequently extubated and did well on BiPAP nightly. Her mentation also improved and she became alert and oriented x3. She remained stable and with walking pulse ox, didnt require any oxygen. She remained stable and was discharged home on 02/17/2022. She is to continue on lactulose and lasix, and is to follow up with her PCP and assembler watch train. Patient seen and examined. Daughter was by her bedside. She had no active complaints and felt much better. Her breathing had improved. She was alert and oriented x3 and review of systems otherwise negative. Labs and vitals reviewed. Home medication reviewed and reconciled. Physical Exam Const alert, oriented x3 and no apparent distress General Appearance: cooperative, comfortable and well kempt Exam Limitations: no limitations HEENT normocephalic, head/scalp atraumatic, hearing grossly normal bilaterally and moist oral mucous membranes Eyes PERRL, EOMs intact bilaterally and conjunctivae normal Neck no lymphadenopathy, supple and no JVD Resp Resp Narrative: mildly diminished breath sounds bibasally, no wheezes or crackles. Cardio regular rate, regular rhythm, S1 normal heart sound, S2 normal heart sound and no murmurs GI GI Narrative: mildly distended, no tenderness Skin no rashes or lesions noted, no wounds and skin turgor normal Neuro oriented x3 and CN's II-XII intact bilaterally Sensorium / Orientation: awake and alert Psych affect normal Weight / BMI Weight Weight: 176 lb 12.972 oz Body Mass Index (BMI) 33.5 ABG / Lab / Microbiology Data Result Diagrams: 02/17/22 05:50 02/17/22 05:50 Laboratory: Laboratory Results - last 24 hr 02/16/22 16:54: POC Glucose 154 H 02/16/22 21:05: POC Glucose 151 H 02/17/22 05:50: WBC 3.9 L, RBC 3.45 L, Hgb 8.9 L, Hct 31.3 L, MCV 90.7, MCH 25.8 L, MCHC 28.4 L, RDW Std Deviation 65.4 H, RDW Coeff of Jordan 20.4 H, Plt Count 75 L, MPV 11.1, Immature Gran % (Auto) 0.500, Neut % (Auto) 58.6, Lymph % (Auto) 22.7, [place] % (Auto) 11.0 H, Eos % (Auto) 5.9 H, Baso % (Auto) 1.3 H, Absolute Neuts (auto) 2.3, Absolute Lymphs (auto) 0.89, Nucleated RBC % 0, Anisocytosis 2+ 02/17/22 05:50: Sodium 145, Potassium 3.9, Chloride 108 H, Carbon Dioxide 36.0 H, Anion Gap 1 L, BUN 14, Creatinine 0.67, Estim Creat Clear Calc 35.99, Est GFR (MDRD) Af Amer 111, Est GFR (MDRD) Non-Af 92, BUN/Creatinine Ratio 21.0 H, Glucose 107 H, Calcium 8.3 L, Total Bilirubin 0.80, AST 54 H, ALT 37, Alkaline Phosphatase 135 H, Total Protein 4.9 L, Albumin 1.6 L, Globulin 3.3, Albumin/Globulin Ratio 0.5 L 02/17/22 06:32: POC Glucose 114 H 02/17/22 08:40: Vancomycin Trough 16.1 H Microbiology: Microbiology 02/09/22 16:15 Blood Culture (Wb) - Anticubital Left Blood Culture - Final No growth in 5 days. 02/09/22 15:25 Blood Culture (Wb) - Anticubital Right Blood Culture - Final No growth in 5 days. 02/11/22 20:00 Sputum, Induced/Lukens Gram Stain - Final 02/11/22 20:00 Sputum, Induced/Lukens Respiratory Culture - Final 02/11/22 08:00 Nasal Secretion SARS-CoV-2 Antigen (Rapid) - Final D/C Instructions Discharge Diet: Low fat / Low cholesterol Discharge Activity: Return to Normal Activity Weight Bearing Status: Weight bearing as tolerated Call your doctor if you observe: Fever of 101 or Higher, Shortness of breath, Dizziness, Swelling in the ankles and Increased palpitations (irregular heartbeat) Meaningful Use Info Meaningful Use Diagnoses (Choose all that apply): CHF CHF JOSE/ARB ordered at discharge?: No Reason JOSE/ARB not ordered?: Normal EF Documented LVEF (%): 75 Discharge Plan Admission Admit Date/Time: 02/09/22 17:22 Primary Reason for Your Visit: acute hepatic encephalopathy, acute on chronic heart failure Attending Provider: Floridalma Palacio Primary Care Provider: Josiah Smith Consulting Providers: Jeremie Skinner Instructions Patient Instructions: Hepatic Encephalopathy, Heart Failure Discharge Orders/Prescriptions Prescriptions: New spironolactone 25 mg Tablet 25 mg PO BID Qty: 60 RF: 2 labetalol 100 mg Tablet 100 mg PO BID Qty: 60 RF: 2 lactulose 20 gram/30 mL solution 20 g PO .qid Qty: 3000 RF: 3 Continued albuterol sulfate 1 PUFF inhaler 2 puff INHALATION Q4H PRN PRN (Reason: Sob &/Or Wheezing) RF: 0 clonidine HCl 0.1 MG tablet 0.1 mg PO TID RF: 0 clonidine HCl 0.2 MG tablet 0.2 mg PO BID RF: 0 albuterol sulfate 2.5 MG/3 ML solution for nebulization 2.5 mg INHALATION Q4H PRN PRN (Reason: Sob &/Or Wheezing) RF: 0 furosemide 20 MG tablet 30 mg PO BID RF: 0 atorvastatin [Lipitor] 40 mg Tablet 40 mg PO QHS RF: 0 artificial tears solution Drops 1 drp OPHTHALMIC (EYE) TID RF: 0 Discontinued labetalol 200 mg Tablet 200 mg PO BID RF: 0 Referrals / Follow Up: Josiah Smith MD [Primary Care Provider] - 02/18/22 2:20 pm Saman Gaming DO [STAFF PHYSICIAN] - Within 2 Weeks Disposition Disposition (needs filled in before D/C Order can be placed): Home Health Service Charges/Coding Visit Charges Inpatient E&M: 73913 Disch Hosp
[2022-02-17 12:00] LABS: Bedside Glucose 197 mg/dL (74-106)
--- NOTE | 2022-02-17 14:56 | PHA.DC.MR ---
Pharmacy Service has performed discharge medication reconciliation for this patient. The patient's discharge medication list was reviewed for discrepancies and discrepancies were resolved. Medication education papers prepared, patient discharged before this [facility] was unable to spiritual counselor. Medications reviewed. Home Medications albuterol sulfate 2 puff INHALATION Q4H PRN PRN 07/04/16 clonidine HCl 0.1 mg tablet 0.1 mg PO TID tab 11/20/17 clonidine HCl 0.2 mg PO BID 01/06/19 albuterol sulfate 2.5 mg INHALATION Q4H PRN PRN 01/30/21 furosemide 30 mg PO BID 01/30/21 artificial tears solution 1 drp OPHTHALMIC (EYE) TID 02/09/22 atorvastatin [Lipitor] 40 mg PO QHS 02/09/22 labetalol 100 mg PO BID #60 tab 02/17/22 lactulose 20 g PO .qid #3000 ml 02/17/22 spironolactone 25 mg PO BID #60 tab 02/17/22
== END 2022-02-17 14:51 | disposition home health service (06) | DRG 432 ==
LOC: ED 17:16 → PCU 17:36 → ICU 02-11 18:52 → PCU 02-15 12:03
PROVIDERS: Anesthesiology; Family Medicine; Hospitalist; Internal Medicine; Internal Medicine Critical Care Medicine; Internal Medicine Gastroenterology; Nurse Practitioner Family; Admitting Provider Internal Medicine; Emergency Provider Emergency Medicine; PCP Family Medicine; Visit Provider Student in an Organized Health Care Education/Training Program
PROC: 0DJ08ZZ Inspection of Upper Intestinal Tract, Via Natural or Artificial Opening Endoscopic (ICD-10-PCS; CPT 43235; principal; 2022-02-11 14:55)
DX: K74.60 Unspecified cirrhosis of liver (principal); K72.00 Acute and subacute hepatic failure without coma; J96.21 Acute and chronic respiratory failure with hypoxia; I50.33 Acute on chronic diastolic (congestive) heart failure; G92.8 Other toxic encephalopathy; K31.811 Angiodysplasia of stomach and duodenum with bleeding; J96.22 Acute and chronic respiratory failure with hypercapnia; I85.00 Esophageal varices without bleeding; E87.0 Hyperosmolality and hypernatremia; E87.2 Acidosis; R18.8 Other ascites; I11.0 Hypertensive heart disease with heart failure; I27.23 Pulmonary hypertension due to lung diseases and hypoxia; E11.9 Type 2 diabetes mellitus without complications; J44.9 Chronic obstructive pulmonary disease, unspecified; D69.6 Thrombocytopenia, unspecified; E83.39 Other disorders of phosphorus metabolism; G47.33 Obstructive sleep apnea (adult) (pediatric); B96.89 Other specified bacterial agents as the cause of diseases classified elsewhere; D50.9 Iron deficiency anemia, unspecified; E87.6 Hypokalemia; E78.5 Hyperlipidemia, unspecified; H10.89 Other conjunctivitis; I07.1 Rheumatic tricuspid insufficiency; K75.81 Nonalcoholic steatohepatitis (NASH); E87.8 Other disorders of electrolyte and fluid balance, not elsewhere classified; Z79.84 Long term (current) use of oral hypoglycemic drugs; Z87.891 Personal history of nicotine dependence; E66.9 Obesity, unspecified; K21.00 Gastro-esophageal reflux disease with esophagitis, without bleeding; K25.9 Gastric ulcer, unspecified as acute or chronic, without hemorrhage or perforation; Z68.34 Body mass index [BMI] 34.0-34.9, adult; Z79.899 Other long term (current) drug therapy
CPT/HCPCS: 31500; 31720; 36415; 36600; 70450; 71045; 74018; 80048; 80053; 80202; 81001; 82140; 82550; 82803; 82962; 83036; 83540; 83550; 83605; 83735; 83880; 84100; 84478; 85014; 85018; 85025; 85610; 85730; 87040; 87070; 87205; 87426; 87641; 92526; 92610; 93005; 93306; 93970; 94002; 94003; 94640; 94660; 94762; 97110; 97116; 97162; 97166; 97530; 97535; 97802; 99251; 99285; J2185; J7030; J7040; J7050; J7120; Q9957; A4216; G0463; J1940; J2405; J2916; J3010

== ENCOUNTER 2022-05-26 07:29 | Inpatient (IN) | payer MEDICARE, MEDICAID, SELFPAY ==
[2022-05-26] VITALS (30 sets, daily range): BP systolic 102–183; BP diastolic 31–80; PULSE 62–111; RESP 13–26; TEMP 36.2–37.1; O2SAT 96–100; BMI 25.1; BMI 24.0
--- NOTE | 2022-05-26 07:31 | EKG12_ITS ---
Test Reason : DYSRHYTHMIA Blood Pressure : / mmHG Vent. Rate : 069 BPM Atrial Rate : 069 BPM P-R Int : 156 ms QRS Dur : 142 ms QT Int : 452 ms P-R-T Axes : 037 -75 031 degrees QTc Int : 484 ms Normal sinus rhythm Right bundle branch block Left anterior fascicular block Bifascicular block Minimal voltage criteria for LVH, may be normal variant ( R in aVL ) Abnormal ECG Confirmed by TEJ ROWELL, PHONG ([id number]), newspaper or periodical editor BRANDY TRAN ([id number]) on 05/27/2022 9:22:23 AM Referred By: Confirmed By:PHONG BURNHAM MD
--- NOTE | 2022-05-26 07:31 | CT_ITS ---
STUDY: CT CERVICAL SPINE WITHOUT CONTRAST REASON FOR EXAM: Female, 72 years old. Fall RADIATION DOSAGE (If Supplied By Facility): CTDIvol = ( 18.54 ) mGy, DLP = ( 348.43 ) mGycm TECHNIQUE: High resolution transaxial imaging was performed without contrast material. Sagittal and coronal images were reconstructed. Individualized dose optimization techniques were used for this CT. COMPARISON: None FINDINGS: Normal craniovertebral junction. There are degenerative changes of the anterior atlantoaxial articulation. Normal odontoid process. Normal cervical lordosis. Normal vertebral bodies and posterior osseous elements. C2-3: Normal endplates. Normal disc height and morphology. Normal central canal and intervertebral neuroforamina. C3-4: Facet joint osteoarthritis and hypertrophy on the left side. No significant stenosis is seen. C4-5: Normal endplates. Normal disc height and morphology. Normal central canal and intervertebral neuroforamina. C5-6: Mild degree of disc space narrowing. Uncovertebral arthrosis. Mild degree of bilateral neural foraminal stenosis. C6-7: Moderate degree of disc space narrowing. Uncovertebral arthrosis. No significant stenosis seen. C7-T1: Normal endplates. Normal disc height and morphology. Normal central canal and intervertebral neuroforamina. Atherosclerotic plaque formation at the carotid bifurcations bilaterally. CT/Spine Cervical without Contras IMPRESSION: Multilevel degenerative changes, as described above. Electronically Signed: Roberto Amor MD at 9:04 EDT ,
--- NOTE | 2022-05-26 07:31 | RAD_ITS ---
STUDY: X-RAY CHEST REASON FOR EXAM: Female, 72 years old. Neuro deficit, acute, stroke suspected TECHNIQUE: Single AP portable view of the chest. COMPARISON: Comparison is made with prior study 02/12/2022. FINDINGS: EKG electrodes are seen. The lungs are clear and expanded. There is no demonstrated pleural abnormality. Normal size heart. Normal mediastinum and ivan. Normal visualized pulmonary arteries. Normal visualized aortic arch and descending thoracic aorta. There are diffuse degenerative changes of the visualized thoracic spine. There is degenerative osteoarthritis of the bilateral shoulders. There is no demonstrated abnormality of the visualized soft tissue structures of the upper abdomen. RAD/Chest 1 View IMPRESSION: No acute abnormality is seen. Electronically Signed: Roberto Amor MD at 9:20 EDT ,
--- NOTE | 2022-05-26 07:31 | CT_ITS ---
We are attempting to reach an attending provider to discuss findings. An addendum with communication details will be sent when the communication is complete. EXAM: CT HEAD WITHOUT INTRAVENOUS CONTRAST CLINICAL INDICATION: Neuro deficit, acute, stroke suspected TECHNIQUE: Multiple axial images were obtained of the head without intravenous contrast. This CT exam was performed using one or more of the following dose reduction techniques: automated exposure control, adjustment of the mA and/or kV according to patient size, and/or use of iterative reconstruction technique. This report was created using [employer] report [employer] technology. RADIATION DOSE: CTDIvol = 45 mGy, DLP = 786 mGy-cm. COMPARISON: 02/13/2022. FINDINGS: BRAIN AND EXTRA-AXIAL SPACES: Mild generalized atrophy. Mild low density bilaterally in the deep white matter. No intra- or extra-axial hemorrhage. No evidence of acute infarct. No intracranial mass or mass effect. There is preservation of the ellis/white matter interface. Posterior fossa structures are unremarkable. No hydrocephalus. Basal cisterns are patent. BONES/JOINTS: Unremarkable. No discrete lytic or blastic abnormalities. SINUSES: Unremarkable as visualized. Clear. MASTOID AIR CELLS: Unremarkable. Clear. ORBITS: Visualized globes, extraocular muscles, optic nerves and retrobulbar fat appear unremarkable. CT/STROKE Brain/Head without Cont IMPRESSION: Mild generalized atrophy. Mild low density bilaterally in the deep white matter. This likely represents small vessel ischemic changes in the deep white matter. ASSESSMENT: ASPECTS ([place] Stroke Program Early CT Score) is 10. Electronically Signed: Fco Chaidez MD at 7:45 EDT ,
--- NOTE | 2022-05-26 07:33 | NURSING ---
0722 stroke alert called prior to arrival
[2022-05-26 07:51] LABS: Absolute Lymphocyte Count 0.81 X10^3/uL (0.83-4.51); Absolute Neutrophil Count 6.5 X10^3/uL (2.0-7.7); Basophil# 0.03 X10^3/uL; Basophil% 0.4 % (0-1); Eosinophil# 0.08 X10^3/uL; Hematocrit 31.7 % (37-47); Hemoglobin 10.2 g/dL (12.0-15.0); Lymphocyte # 0.81 X10^3/ul (0.83-4.51); Lymphocyte % 10.4 % (19-41); Mean Corp Hgb Conc 32.2 g/dL (32-36); Mean Corpuscular Hgb 26.7 pg (27.0-32.0); Mean Platelet Vol. 11.4 fl (6.2-12.0); Monocyte# 0.32 X10^3/uL; Monocyte% 4.1 % (0-10); NRBC Flagged by Analyzer 0 % (0-5); Neutrophil # 6.54 X10^3/uL (2.7-7.7); Neutrophil % 83.6 % (47-70); Platelet Count 119 K/mm3 (150-450); RBC Distribution Width CV 16.5 % (11.6-14.6); RBC Distribution Width SD 48.5 fl (35.1-43.9); Red Blood Count 3.82 M/mm3 (4.2-5.4); White Blood Count 7.8 K/mm3 (4.4-11.0)
--- NOTE | 2022-05-26 08:03 | EDS_ITS ---
HPI History of Present Illness Chief Complaint: Neuro S/Sx Informant: family and EMS Narrative Narrative: Patient is a 72-year-old female with extensive medical history including hypertension, UTI, history of thoracic abdominal aortic aneurysm, liver disease with history of hepatic encephalopathy, diabetes mellitus and anemia presenting with altered mental status. Patient was last seen going to bed around 10 PM last night. She was found on the floor this morning by her . Patient had to be picked up by her son. She was noted to have increased weakness of the right side however she is not following commands for EMS. Stroke alert was called in the field. [id number] at the bedside notes that patient has been having some eye difficulties for the past year and did have surgery on one of her eyes which is not sure which one. No other additional information available at this time. 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 Thrombocytopenia Home Medications albuterol sulfate 90 mcg/actuation aerosol inhaler 2 puff inhalation Q4H PRN PRN Sob &/Or Wheezing 07/04/16 [History Last Taken 10/16/16] clonidine HCl 0.1 mg tablet 0.1 mg PO TID blood pressure 11/20/17 [History Last Taken 02/08/22] clonidine HCl 0.2 mg tablet 0.2 mg PO BID blood pressure 01/06/19 [History Last Taken 02/09/22 08:00] albuterol sulfate 2.5 mg/3 mL (0.083 %) solution for nebulization 2.5 mg inhalation Q4H PRN PRN Sob &/Or Wheezing 01/30/21 [History Last Taken Unknown] furosemide 20 mg tablet 30 mg PO BID water pill 01/30/21 [History Last Taken 02/09/22 08:00] artificial tears solution eye drops 1 drp ophthalmic (eye) TID dry eyes 02/09/22 [History Last Taken 02/08/22] atorvastatin 40 mg tablet (Lipitor) 40 mg PO QHS cholesterol 02/09/22 [History Last Taken 02/08/22] labetalol 100 mg tablet 100 mg PO BID Check with primary doctor 05/26/22 [History Last Taken Unknown] lactulose 20 gram/30 mL oral solution 20 g PO .qid Check with primary doctor 05/26/22 [History Last Taken Unknown] spironolactone 25 mg tablet 25 mg PO BID Check with primary doctor 05/26/22 [History Last Taken Unknown] Allergy/AdvReac Type Severity Reaction Status Date / Time suture Allergy Mild rash/ Verified 05/26/22 08:04 wound dehisence amoxicillin Allergy Unknown Verified 05/26/22 08:04 azithromycin Allergy Shortness Verified 05/26/22 08:04 of breath celecoxib [From Celebrex] Allergy Other Verified 05/26/22 08:04 ciprofloxacin HCl Allergy Shortness Verified 05/26/22 08:04 [From Cipro] of breath cortisone Allergy Swelling Verified 05/26/22 08:04 doxycycline Allergy Shortness Verified 05/26/22 08:04 of breath erythromycin base Allergy Unknown Verified 05/26/22 08:04 fexofenadine [From Ashlee] Allergy Unknown Verified 05/26/22 08:04 ibuprofen Allergy Shortness Verified 05/26/22 08:04 of breath Iodinated Contrast Media Allergy Shortness Verified 05/26/22 08:04 [DYEE] of breath iodine Allergy Shortness Verified 05/26/22 08:04 of breath levofloxacin [From Levaquin] Allergy Shortness Verified 05/26/22 08:04 of breath lorazepam [From Ativan] Allergy Shortness Verified 05/26/22 08:04 of breath nitrofurantoin Allergy Shortness Verified 05/26/22 08:04 macrocrystalline of breath [From Macrobid] Penicillins Allergy Shortness Verified 05/26/22 08:04 of breath rofecoxib [From Vioxx] Allergy Unknown Verified 05/26/22 08:04 Sulfa (Sulfonamide Allergy Shortness Verified 05/26/22 08:04 Antibiotics) of breath sulfamethoxazole Allergy Shortness Verified 05/26/22 08:04 [From Bactrim] of breath trimethoprim [From Bactrim] Allergy Shortness Verified 05/26/22 08:04 of breath amlodipine [From Norvasc] AdvReac Upset Verified 05/26/22 08:04 Stomach MISC BP MED Allergy Shortness Uncoded 05/26/22 08:04 of breath Family History Mother Heart disease Brother Heart disease Surgical History History of bilateral salpingo-oophorectomy History of laparoscopic cholecystectomy History of oral surgery S/P TIPS (transjugular intrahepatic portosystemic shunt) Social History Smoking Status: Former smoker alcohol intake: never substance use type: does not use ROS ROS ED Review of Systems ROS Unobtainable: due to encephalopathy EXAM Physical Exam Const Vital Signs: 05/26/22 07:38 05/26/22 07:40 05/26/22 07:43 Temperature 97.2 F L 97.2 F L Temperature Source Temporal Temporal Pulse Rate 103 H 111 H Respiratory Rate 21 H 14 Blood Pressure 183/67 H 183/67 H Blood Pressure Mean 105 105 Pulse Ox 97 96 96 Oxygen Delivery Method Room Air Room Air Room Air Oxygen Flow Rate (L/min) 05/26/22 07:48 05/26/22 07:55 05/26/22 08:10 Temperature 97.2 F L 97.2 F L Temperature Source Temporal Temporal Pulse Rate 95 96 73 Respiratory Rate 22 H 20 H 16 Blood Pressure 183/67 H 183/67 H 182/49 H Blood Pressure Mean 105 105 93 Pulse Ox 96 96 99 Oxygen Delivery Method Room Air Room Air Nasal Cannula Oxygen Flow Rate (L/min) 2 Positive well nourished and well developed Constitutional Narrative: Unresponsive General Appearance ED: well developed HEENT Reports moist mucous membranes HEENT Narrative: No hemotympanum. Negative for trauma Eyes Eyes Narrative: Right pupil 3 mm reactive. Left pupil is 5 to 6 mm and less reactive. No fixed gaze deviation appreciated. Neck supple Chest Wall inspection of chest normal Resp normal respiratory effort and clear to auscultation bilaterally Cardio regular rate, regular rhythm and no murmurs GI normal to inspection, nondistended, normoactive bowel sounds and non-tender Extremity normal to inspection General Extremety ED: Negative for edema or tenderness General Extremity: Negative for edema Neuro Neuro Narrative: Patient is somnolent. Opens her eyes to sternal rub. Will withdraw from pain in extremities but no spontaneous movement. No speech appreciated. Does not follow commands. NIH is 22 NIH Stroke Scale/Score (NIHSS) from [email or web address] on 05/26/2022 All calculations should be rechecked by clinician prior to use RESULT SUMMARY: 22 points NIH Stroke Scale INPUTS: 1A: Level of consciousness ?> 2 = Movements to pain 1B: Ask month and age ?> 2 = Aphasic 1C: 'Blink eyes' & 'squeeze hands' ?> 2 = Performs 0 tasks 2: Horizontal extraocular movements ?> 0 = Normal 3: Visual garcia ?> 0 = No visual loss 4: Facial palsy ?> 0 = Normal symmetry 5A: Left arm motor drift ?> 3 = No effort against gravity 5B: Right arm motor drift ?> 2 = Some effort against gravity 6A: Left leg motor drift ?> 2 = Some effort against gravity 6B: Right leg motor drift ?> 2 = Some effort against gravity 7: Limb Ataxia ?> 0 = No ataxia 8: Sensation ?> 2 = Coma/unresponsive 9: Language/aphasia ?> 3 = Coma/unresponsive 10: Dysarthria ?> 2 = Mute/anarthric 11: Extinction/inattention ?> 0 = No abnormality Skin no rashes or lesions noted and no wounds MDM MDM MDM Narrative Medical decision making narrative: Patient is evaluated for altered mental status. Initially she was a stroke alert as EMS noted increased weakness on the right side compared to the left. On evaluation patient is largely encephalopathic and not following commands. She does not have any lateralizing symptoms except for abnormal pupil size. Family eventually at the bedside who states that this is been going on since she had glaucoma and an eye surgery. This is unchanged from her baseline. CT of the brain does not show any acute process. Case discussed with teleneurology who states that likely this is an encephalopathy however if the eye change is new she will require continuous EEG monitoring however conjunction with her elevated ammonia level. Given that this eye finding is not new I do not think she requires transfer for continuous EEG. Patient does have significantly elevated ammonia level, an elevated lactate, and elevated creatinine, mildly elevated potassium with no acute EKG changes and a chronic anemia that is actually slightly improved. Urinalysis is concerning for infection. Culture sent and patient is started on Rocephin in the emergency room. An NG is placed and she started on lactulose for her hyperammonia anemia. Patient will be admitted to the ICU given her profound encephalopathy for close monitoring. Family is at the bedside and agreeable with this plan of care. CT is not performed as patient is SKY and also has a history of what sounds like anaphylaxis to IV contrast. 2 L of fluid were given to the patient in the emergency room. No obvious signs of trauma as patient was found on the floor earlier today. Lab Data Attestation: I reviewed the patient's lab results. Labs: Laboratory Results - last 24 hr 05/26/22 05/26/22 05/26/22 07:42 07:42 07:42 WBC 7.8 RBC 3.82 L Hgb 10.2 L Hct 31.7 L MCV 83.0 MCH 26.7 L MCHC 32.2 RDW Std Deviation 48.5 H RDW Coeff of Jordan 16.5 H Plt Count 119 L MPV 11.4 Immature Gran % (Auto) 0.500 Neut % (Auto) 83.6 H Lymph % (Auto) 10.4 L Beckham % (Auto) 4.1 Eos % (Auto) 1.0 Baso % (Auto) 0.4 Absolute Neuts (auto) 6.5 Absolute Lymphs (auto) 0.81 L Nucleated RBC % 0 PT 15.3 H INR 1.2 APTT 28.1 Sodium 137 Potassium 5.2 H Chloride 105 Carbon Dioxide 24.0 Anion Gap 8 BUN 46 H Creatinine 1.86 H Estim Creat Clear Calc 22.91 Est GFR (MDRD) Af Amer 34 L Est GFR (MDRD) Non-Af 28 L BUN/Creatinine Ratio 24.7 H Glucose 450 H Lactic Acid Calcium 10.4 H Ammonia Troponin I High Sens 30 Urine Color Urine Clarity Urine pH Ur Specific [place] Urine Protein Urine Glucose (UA) Urine Ketones Urine Occult Blood Urine Nitrite Urine Bilirubin Urine Urobilinogen Ur Leukocyte Esterase Urine RBC Urine WBC Ur Squamous Epith Cells Urine Bacteria Urine Mucus 05/26/22 05/26/22 05/26/22 07:42 07:42 08:00 WBC RBC Hgb Hct MCV MCH MCHC RDW Std Deviation RDW Coeff of [place] Plt Count MPV Immature Gran % (Auto) Neut % (Auto) Lymph % (Auto) Beckham % (Auto) Eos % (Auto) Baso % (Auto) Absolute Neuts (auto) Absolute Lymphs (auto) Nucleated RBC % PT INR APTT Sodium Potassium Chloride Carbon Dioxide Anion Gap BUN Creatinine Estim Creat Clear Calc Est GFR (MDRD) Af Amer Est GFR (MDRD) Non-Af BUN/Creatinine Ratio Glucose Lactic Acid 3.7 H* Calcium Ammonia 159.0 H Troponin I High Sens Urine Color Yellow Urine Clarity Sl. Cloudy Urine pH 6.0 Ur Specific [place] 1.010 Urine Protein 30 H Urine Glucose (UA) 1000 H Urine Ketones Negative Urine Occult Blood 250 H Urine Nitrite Negative Urine Bilirubin Negative Urine Urobilinogen Normal Ur Leukocyte Esterase 500 H Urine RBC 25-50 SEEN Urine WBC 25-50 SEEN Ur Squamous Epith Cells 0-5 SEEN Urine Bacteria 2+ Urine Mucus 0 SEEN ABG Data ABG results: ABG 05/26/22 08:19 Specimen Type AYAZ VBG pH 7.40 VBG pO2 51 H VBG HCO3 23 VBG Total CO2 24 VBG O2 Sat (Calc) 86 H VBG Base Excess -2 L POC Mix VBG pCO2 Pt Tmp 36.6 L O2 Delivery Device Room Air Radiography Chest X-Ray - ED: 1 View, Read by ED Physician, Read by Radiologist and No Acute Disease Diagnostic Testing: Clinical Impression(s) from Imaging Studies Brain CT 05/26/22 07:31 IMPRESSION: Mild generalized atrophy. Mild low density bilaterally in the deep white matter. This likely represents small vessel ischemic changes in the deep white matter. ASSESSMENT: ASPECTS ([place] Stroke Program Early CT Score) is 10. Electronically Signed: Fco Chaidez MD at 7:45 EDT , ADDENDUM: 05/26/22 0754 IMPRESSION: Mild generalized atrophy. Mild low density bilaterally in the deep white matter. This likely represents small vessel ischemic changes in the deep white matter. ASSESSMENT: ASPECTS ([place] Stroke Program Early CT Score) is 10. N.B. : The above Results were Read Back by Fco Chaidez MD to MD Acacia, and understanding confirmed on 05/26/2022 07:47:13 (ET). Electronically Signed: Fco Chaidez MD at 7:45 EDT , Cervical Spine CT 05/26/22 07:31 IMPRESSION: Multilevel degenerative changes, as described above. Electronically Signed: Roberto Amor MD at 9:04 EDT , Chest X-Ray 05/26/22 07:31 IMPRESSION: No acute abnormality is seen. Electronically Signed: Roberto Amor MD at 9:20 EDT , Rhythm Strip Rhythm Strip: Sinus Rhythm Rate: 69 Ectopy: None EKG Initial EKG: Attestation: I personally reviewed and interpreted this EKG as follows: Interpretation: Sinus Rhythm Comments: Normal sinus rhythm at a rate of 69 Left axis deviation Right bundle branch block with left anterior fascicular block Normal ST segments Critical Care Time Critical Care Time: Yes Critical care time (excluding procedures): 30-74 minutes and Including time spent: (Discussing history and plan of care with family, arranging admission to ICU, frequent observation and monitoring) Discharge Plan Dx/Rx/DC Orders Clinical Impression: Acute hepatic encephalopathy, Hyperammonemia, SKY (acute kidney injury), Acute UTI, Serum potassium elevated, Elevated lactic acid level Disposition Disposition: Acute Care Hospital [facility] Discharge Date/Time: 05/26/22 10:43
[2022-05-26 08:08] LABS: Mucous, Urine 0 SEEN /hpf (<or=2+)
[2022-05-26 08:09] LABS: Color, Urine Yellow (Yellow); Glucose, Dipstick 1000 mg/dl (Normal); Ketone-Dipstick Negative (Negative); Leukocyte Esterase-Dipstick 500 /ul (Negative); Nitrite-Dipstick Negative (Negative); Occult Blood-Urine 250 /ul (Negative); Protein-Dipstick 30 mg/dl (Negative); Urine Bilirubin Dipstick Negative (Negative); Urine Clarity Sl. Cloudy (Clear); Urine Urobilinogen Normal (Normal)
[2022-05-26 08:09] LABS: Anion Gap 8 (5-15); BUN 46 mg/dL (7-18); BUN/Creat Ratio 24.7 RATIO (10-20); Calcium,Total 10.4 mg/dL (8.5-10.1); Chloride 105 mmol/L (98-107); Creatinine, Serum 1.86 mg/dL (0.55-1.02); EST Glomerular Filtration Rate 28 mL/min (>60); Est Glom Filt Rate - Afr Amer 34 mL/min (>60); Estimated Creatinine Clearance 22.91 ml/min; Glucose 450 mg/dL (74-106); Potassium 5.2 mmol/L (3.5-5.1); Sodium Level 137 mmol/L (136-145); Troponin-I HS 30 pg/mL (3.0-54.0)
[2022-05-26 08:17] LABS: Bacteria 2+ /hpf (None Seen); Red Blood Cells-Urine 25-50 SEEN /hpf (0-5); Squamous Epithelial Cells - UA 0-5 SEEN /hpf (5-10); White Blood Cells 25-50 SEEN /hpf (0-5)
[2022-05-26 08:21] LABS: Lactic Acid 3.7 mmol/L (0.4-1.9)
[2022-05-26] MEDS: 0.9% Normal Saline 1,000 ML 999 ML IV ×2 (08:24→10:13)
[2022-05-26 08:25] LABS: Blood Gas Specimen Type VEN; O2 Delivery Device Room Air; VBG BASE EXCESS -2 mmol/L (-1.0-3.5); VBG Bicarbonate 23 mmol/L (22-26); VBG PO2 51 mmHg (25-40); VBG SO2 86 % (50-70); VBG TCO2 24 mmol/L (23-33); VBG pCO2 36.6 mmHg (41-51)
[2022-05-26 08:47] LABS: International Normalized Ratio 1.2; Prothrombin Time (Protime)PT. 15.3 SECONDS (11.7-14.9)
[2022-05-26 08:48] LABS: Partial Thromboplast Time 28.1 Seconds (24.1-36.2)
--- NOTE | 2022-05-26 08:59 | NURSING ---
DR ARIEL COELHO
--- NOTE | 2022-05-26 09:05 | NURSING ---
ICU KITTOE HEPATIC ENCEPHALOPATHY
--- NOTE | 2022-05-26 09:15 | NURSING ---
CV ICU 201
[2022-05-26] MEDS: Ceftriaxone 1 GM/50 ML BAG IV (09:36)
--- NOTE | 2022-05-26 09:50 | RAD_ITS ---
STUDY: X-RAY - ABDOMEN/PELVIS REASON FOR EXAM: Female, 72 years old. NG tube placement -- KUB with both diaphragms for NG/OG Verification TECHNIQUE: Single AP view of the abdomen / pelvis. COMPARISON: Comparison is made with prior chest radiograph done earlier in the morning. FINDINGS: A normal gastric tube is seen with the tip in the distal stomach. EKG electrodes are seen. There is an unremarkable bowel gas pattern. A TIPS catheter is seen in the right upper quadrant. Prior cholecystectomy. A catheter is also seen within the pelvis. There are degenerative changes of the visualized lumbar spine. RAD/Abdomen Single View (Portable) IMPRESSION: The tip of the nasogastric tube is in the body of the stomach. A TIPS catheter is seen in the right upper quadrant. Electronically Signed: Roberto Amor MD at 10:49 EDT ,
[2022-05-26] MEDS: Lactulose 20 GM/30 ML UDC NG (10:16)
--- NOTE | 2022-05-26 10:35 | HP.PCM.HOS_ITS ---
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 Per patient's who provided much of the history patient was in her usual state of health prior to going to bed. Found the patient on the morning of admission on the floor having fallen. He could hardly arouse the patient. He subsequently called the EMS squad and patient was brought to the emergency department. There was an initial suspicion of possible CVA in view of subjective right-sided weakness however this was ruled out with a negative CT. Patient was found to have markedly elevated ammonia level consistent with hepatic encephalopathy. 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 Thrombocytopenia Home Medications albuterol sulfate 90 mcg/actuation aerosol inhaler 2 puff inhalation Q4H PRN PRN Sob &/Or Wheezing 07/04/16 [History Last Taken 10/16/16] clonidine HCl 0.1 mg tablet 0.1 mg PO TID blood pressure 11/20/17 [History Last Taken 02/08/22] clonidine HCl 0.2 mg tablet 0.2 mg PO BID blood pressure 01/06/19 [History Last Taken 02/09/22 08:00] albuterol sulfate 2.5 mg/3 mL (0.083 %) solution for nebulization 2.5 mg inhalation Q4H PRN PRN Sob &/Or Wheezing 01/30/21 [History Last Taken Unknown] furosemide 20 mg tablet 30 mg PO BID water pill 01/30/21 [History Last Taken 02/09/22 08:00] artificial tears solution eye drops 1 drp ophthalmic (eye) TID dry eyes 02/09/22 [History Last Taken 02/08/22] atorvastatin 40 mg tablet (Lipitor) 40 mg PO QHS cholesterol 02/09/22 [History Last Taken 02/08/22] labetalol 100 mg tablet 100 mg PO BID Check with primary doctor 05/26/22 [History Last Taken Unknown] lactulose 20 gram/30 mL oral solution 20 g PO .qid Check with primary doctor 05/26/22 [History Last Taken Unknown] spironolactone 25 mg tablet 25 mg PO BID Check with primary doctor 05/26/22 [History Last Taken Unknown] Allergy/AdvReac Type Severity Reaction Status Date / Time suture Allergy Mild rash/ Verified 05/26/22 08:04 wound dehisence amoxicillin Allergy Unknown Verified 05/26/22 08:04 azithromycin Allergy Shortness Verified 05/26/22 08:04 of breath celecoxib [From Celebrex] Allergy Other Verified 05/26/22 08:04 ciprofloxacin HCl Allergy Shortness Verified 05/26/22 08:04 [From Cipro] of breath cortisone Allergy Swelling Verified 05/26/22 08:04 doxycycline Allergy Shortness Verified 05/26/22 08:04 of breath erythromycin base Allergy Unknown Verified 05/26/22 08:04 fexofenadine [From Ashlee] Allergy Unknown Verified 05/26/22 08:04 ibuprofen Allergy Shortness Verified 05/26/22 08:04 of breath Iodinated Contrast Media Allergy Shortness Verified 05/26/22 08:04 [DYEE] of breath iodine Allergy Shortness Verified 05/26/22 08:04 of breath levofloxacin [From Levaquin] Allergy Shortness Verified 05/26/22 08:04 of breath lorazepam [From Ativan] Allergy Shortness Verified 05/26/22 08:04 of breath nitrofurantoin Allergy Shortness Verified 05/26/22 08:04 macrocrystalline of breath [From Macrobid] Penicillins Allergy Shortness Verified 05/26/22 08:04 of breath rofecoxib [From Vioxx] Allergy Unknown Verified 05/26/22 08:04 Sulfa (Sulfonamide Allergy Shortness Verified 05/26/22 08:04 Antibiotics) of breath sulfamethoxazole Allergy Shortness Verified 05/26/22 08:04 [From Bactrim] of breath trimethoprim [From Bactrim] Allergy Shortness Verified 05/26/22 08:04 of breath amlodipine [From Norvasc] AdvReac Upset Verified 05/26/22 08:04 Stomach MISC BP MED Allergy Shortness Uncoded 05/26/22 08:04 of breath Family History Mother Heart disease Brother Heart disease Surgical History History of bilateral salpingo-oophorectomy History of laparoscopic cholecystectomy History of oral surgery S/P TIPS (transjugular intrahepatic portosystemic shunt) Social History Smoking Status: Former smoker alcohol intake: never substance use type: does not use ROS Review of Systems ROS Unobtainable: due to encephalopathy Vital Signs Vital Signs Vital Signs: 05/26/22 07:38 05/26/22 07:40 05/26/22 07:43 Temperature 97.2 F L 97.2 F L Temperature Source Temporal Temporal Pulse Rate 103 H 111 H Respiratory Rate 21 H 14 Blood Pressure 183/67 H 183/67 H Blood Pressure Mean 105 105 Pulse Ox 97 96 96 Oxygen Delivery Method Room Air Room Air Room Air Oxygen Flow Rate (L/min) 05/26/22 07:48 05/26/22 07:55 05/26/22 08:10 Temperature 97.2 F L 97.2 F L Temperature Source Temporal Temporal Pulse Rate 95 96 73 Respiratory Rate 22 H 20 H 16 Blood Pressure 183/67 H 183/67 H 182/49 H Blood Pressure Mean 105 105 93 Pulse Ox 96 96 99 Oxygen Delivery Method Room Air Room Air Nasal Cannula Oxygen Flow Rate (L/min) 2 05/26/22 09:18 05/26/22 09:20 05/26/22 09:28 Temperature 97.3 F L 97.3 F L Temperature Source Temporal Oral Pulse Rate 77 73 63 Respiratory Rate 16 16 15 Blood Pressure 169/80 H 169/80 H 150/43 H Blood Pressure Mean 109 109 78 Pulse Ox 99 100 100 Oxygen Delivery Method Nasal Cannula Nasal Cannula Nasal Cannula Oxygen Flow Rate (L/min) 2 2 2 05/26/22 10:12 Temperature Temperature Source Pulse Rate 63 Respiratory Rate 16 Blood Pressure 170/50 H Blood Pressure Mean 90 Pulse Ox 100 Oxygen Delivery Method Nasal Cannula Oxygen Flow Rate (L/min) 2 Weight Weight: 66.4 kg Body Mass Index (BMI) 25.1 Physical Exam Narrative GENERAL: Obtunded but reacts to sternal rub HEENT: Atraumatic; EYES; Anicteric, Normal Conjunctiva NECK; supple, normal thyroid, RESPIRATORY: Diminished to auscultation CARDIOVASCULAR: Regular S1 S2, GI: soft, normoactive bowel sounds, : No Renal angle tenderness; EXTREMITIES: No edema, no clubbing, MUSCULOSKELETAL: no muscle wasting NEURO: Encephalopathic SKIN: No Rash PSYCH; unable to assess Results Lab / Micro Data Result Diagrams: 05/26/22 07:42 05/26/22 07:42 Labs: Laboratory Results - last 24 hr 05/26/22 07:42: WBC 7.8, RBC 3.82 L, Hgb 10.2 L, Hct 31.7 L, MCV 83.0, MCH 26.7 L, MCHC 32.2, RDW Std Deviation 48.5 H, RDW Coeff of [place] 16.5 H, Plt Count 119 L , MPV 11.4, Immature Gran % (Auto) 0.500, Neut % (Auto) 83.6 H, Lymph % (Auto) 10.4 L, [place] % (Auto) 4.1, Eos % (Auto) 1.0, Baso % (Auto) 0.4, Absolute Neuts (auto) 6.5, Absolute Lymphs (auto) 0.81 L, Nucleated RBC % 0 05/26/22 07:42: PT 15.3 H, INR 1.2, APTT 28.1 05/26/22 07:42: Sodium 137, Potassium 5.2 H, Chloride 105, Carbon Dioxide 24.0, Anion Gap 8, BUN 46 H, Creatinine 1.86 H, Estim Creat Clear Calc 22.91, Est GFR (MDRD) Af Amer 34 L, Est GFR (MDRD) Non-Af 28 L, BUN/Creatinine Ratio 24.7 H, Glucose 450 H, Calcium 10.4 H, Troponin I High Sens 30 05/26/22 07:42: Lactic Acid 3.7 H* 05/26/22 07:42: Ammonia 159.0 H 05/26/22 08:00: Urine Color Yellow, Urine Clarity Sl. Cloudy, Urine pH 6.0, Ur Specific [place] 1.010, Urine Protein 30 H, Urine Glucose (UA) 1000 H, Urine Ke tones Negative, Urine Occult Blood 250 H, Urine Nitrite Negative, Urine Bilir ubin Negative, Urine Urobilinogen Normal, Ur Leukocyte Esterase 500 H, Urine RBC 25-50 SEEN, Urine WBC 25-50 SEEN, Ur Squamous Epith Cells 0-5 SEEN, Urine Bacteria 2+, Urine Mucus 0 SEEN ABG Data ABG results: ABG 05/26/22 08:19 Specimen Type AYAZ VBG pH 7.40 VBG pO2 51 H VBG HCO3 23 VBG Total CO2 24 VBG O2 Sat (Calc) 86 H VBG Base Excess -2 L POC Mix VBG pCO2 Pt Tmp 36.6 L O2 Delivery Device Room Air Radiology Impression Brain CT 05/26/22 07:31 IMPRESSION: Mild generalized atrophy. Mild low density bilaterally in the deep white matter. This likely represents small vessel ischemic changes in the deep white matter. ASSESSMENT: ASPECTS ([place] Stroke Program Early CT Score) is 10. Electronically Signed: Fco Chaidez MD at 7:45 EDT , ADDENDUM: 05/26/22 0754 IMPRESSION: Mild generalized atrophy. Mild low density bilaterally in the deep white matter. This likely represents small vessel ischemic changes in the deep white matter. ASSESSMENT: ASPECTS ([place] Stroke Program Early CT Score) is 10. N.B. : The above Results were Read Back by Fco Chaidez MD to MD Acacia, and understanding confirmed on 05/26/2022 07:47:13 (ET). Electronically Signed: Fco Chaidez MD at 7:45 EDT , Cervical Spine CT 05/26/22 07:31 IMPRESSION: Multilevel degenerative changes, as described above. Electronically Signed: Roberto Amor MD at 9:04 EDT , Chest X-Ray 05/26/22 07:31 IMPRESSION: No acute abnormality is seen. Electronically Signed: Roberto Amor MD at 9:20 EDT , Assessment & Plan Assessment/Plan (1) Acute hepatic encephalopathy: PLAN: Plan Patient is a 72-year-old lady with underlying history of 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 Acute hepatic encephalopathy ? Possibly for stated by patient underlying UTI. Patient has been admitted to the intensive care unit for close monitoring as part of a management an NG tube was placed lactulose ordered 20 g every 4 hours. Patient response been monitored with serial ammonia levels 2. Acute cystitis ? Patient was started on Rocephin from the emergency department did continue plan is either continue with the Rocephin or adjust based on results of urine cultures 3. 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 Patient is on lactulose, Aldactone and furosemide 4. Hyperkalemia ? Secondary to patient being on potassium sparing diuretics this was held on admission 5. Anemia - Secondary to chronic disorder monitoring H&H and transfuse if patient becomes symptomatic or hemoglobin falls below 7 6. Thrombocytopenia ? Secondary to chronic liver disease we will monitor 7. Acute kidney injury ? Baseline creatinine from 02/17/2022 was 0.67, was 1.86 on admission. Patient is on both furosemide as well as spironolactone held on admission resuscitated with IV fluid with subsequent monitoring of electrolytes ordered 8. Lactic acidosis ? Due to patient's underlying liver disease as well as UTI monitoring with serial lactic acid levels 9. Essential hypertension ? Discontinue with home medications clonidine and labetalol 10. Dyslipidemia -Patient is on statin therapy, continued at home dose 11.History of esophageal varices Patient underwent EGD on 02/11/2022 during her past admission which showed resolution of the varices. She was however noted to have a single bleeding angioplastic lesion that was cauterized 12. 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 Resolved. Patient was apparently managed at [facility] by vascular surgery 13. Diabetes mellitus type 2 ? Apparently managed with diet 14. DVT prophylaxis ? Bilateral SCDs only avoided the use of chemoprophylaxis in view of patient low platelet counts Advance planning; did discuss with the patient's family ( and daughter) regarding advanced directives as well as CODE STATUS. Did explain the various scenarios involved ( FULL CODE, DNR CCA, DNR CCA with no intubation, and DNR CC and what each meant) family elected for full code with CPR and intubation if warranted. Order was placed. Time spent on discussion 18 minutes. Total critical care time spent evaluating patient review of labs initiation of management orders subsequent review discussion with other providers involved in patient care and nursing staff; 75 Charges/Coding Procedures Hospitalists Procedures: 16262 Critial Care 1st Hr Multi Select Codes Hospitalists' Procedures Procedures: 42142 Critial Care Addl 30 Min and 31151 Advncd Care Plan 30 Min
[2022-05-26 11:48] LABS: Reflex Lactate? Y
[2022-05-26 12:38] LABS: Lactic Acid 2.4 mmol/L (0.4-1.9)
--- NOTE | 2022-05-26 12:58 | EX.PCM.CONCC ---
Assessment & Plan Assessment/Plan (1) Acute hepatic encephalopathy: PLAN: Plan RECOMMENDATIONS: 1. Continue lactulose via NG tube. 2. Fluids as ordered. 3. Obtain gastroenterology consultation. 4. Wean oxygen as tolerated for saturations greater than 90%. IMPRESSIONS: 1. Hepatic encephalopathy The patient presented to the hospital after being found unresponsive by family members. Acute CVA was ruled out. The patient's medical history significant for [place] cirrhosis, complicated by portal vein thrombosis, splenic vein thrombosis and esophageal varices. The patient has reportedly been compliant with her home lactulose regimen. Subsequent work-up demonstrated hyperammonemia. An NG tube has been placed and the patient was initiated on lactulose. Plan to continue the aforementioned, pending improvement in her mentation. In addition, will obtain gastroenterology consultation, given the recurrent nature of this issue. 2. Probable cystitis Initial urine analysis was concerning for cystitis. The patient has been initiated on appropriate antimicrobials. Urine culture is pending. 3. Acute kidney injury Likely prerenal in etiology. Continue fluids as ordered. Continue to monitor urine output. No current indication for renal replacement therapy. 4. Anemia/thrombocytopenia/hypertension/diabetes mellitus Complicates care, management, recovery and prognosis. Continue home medications as indicated. This note was generated with [employer] dictation software. It may contain incorrect words, spelling, and punctuation that were not noted in checking the note before signing. HPI Consult Data Date of Consult: 05/27/22 HPI Narrative Reason for Consultation: Hepatic encephalopathy HPI Narrative: The patient is a 72-year-old female, with a history as outlined below, who presented to the emergency department on May 26 after being found unresponsive by her . According to family at the bedside, the patient had her eyes open but would not respond to any form of verbal or tactile stimulation. The patient has a history of [place] cirrhosis complicated by portal vein thrombosis, splenic vein thrombosis, esophageal varices, ascites and recurrent encephalopathy. The patient underwent a TIPS procedure in December at [facility], and according to family, she has been admitted to the hospital 5 different times since then due to hepatic encephalopathy. Despite this, they reported that she has been compliant with the use of her lactulose. On presentation to the emergency department, the patient was noted to be afebrile and hemodynamically stable. She was maintaining appropriate oxygen saturations on room air. Laboratory evaluation revealed no evidence of a leukocytosis. The patient was thrombocytopenic with a platelet count of 119,000. Chemistry profile was notable for a potassium of 5.2 and creatinine of 1.86. Lactate was elevated at 3.7. Ammonia was increased at 159. In the emergency department, an NG tube was placed to facilitate lactulose administration. CT head revealed small vessel ischemic changes. The patient was subsequently admitted to the medical intensive care unit for further management. [facility] Medical History (Updated 05/26/22 @ 17:[address] 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 Thrombocytopenia Home Medications albuterol sulfate 90 mcg/actuation aerosol inhaler 2 puff inhalation Q4H PRN PRN Sob &/Or Wheezing 07/04/16 [History Last Taken 10/16/16] clonidine HCl 0.1 mg tablet 0.1 mg PO TID blood pressure 11/20/17 [History Last Taken 02/08/22] clonidine HCl 0.2 mg tablet 0.2 mg PO BID blood pressure 01/06/19 [History Last Taken 02/09/22 08:00] albuterol sulfate 2.5 mg/3 mL (0.083 %) solution for nebulization 2.5 mg inhalation Q4H PRN PRN Sob &/Or Wheezing 01/30/21 [History Last Taken Unknown] furosemide 20 mg tablet 30 mg PO BID water pill 01/30/21 [History Last Taken 02/09/22 08:00] artificial tears solution eye drops 1 drp ophthalmic (eye) TID dry eyes 02/09/22 [History Last Taken 02/08/22] atorvastatin 40 mg tablet (Lipitor) 40 mg PO QHS cholesterol 02/09/22 [History Last Taken 02/08/22] labetalol 100 mg tablet 100 mg PO BID Check with primary doctor 05/26/22 [History Last Taken Unknown] lactulose 20 gram/30 mL oral solution 20 g PO .qid Check with primary doctor 05/26/22 [History Last Taken Unknown] spironolactone 25 mg tablet 25 mg PO BID Check with primary doctor 05/26/22 [History Last Taken Unknown] Allergy/AdvReac Type Severity Reaction Status Date / Time suture Allergy Mild rash/ Verified 05/26/22 08:04 wound dehisence amoxicillin Allergy Unknown Verified 05/26/22 08:04 azithromycin Allergy Shortness Verified 05/26/22 08:04 of breath celecoxib [From Celebrex] Allergy Other Verified 05/26/22 08:04 ciprofloxacin HCl Allergy Shortness Verified 05/26/22 08:04 [From Cipro] of breath cortisone Allergy Swelling Verified 05/26/22 08:04 doxycycline Allergy Shortness Verified 05/26/22 08:04 of breath erythromycin base Allergy Unknown Verified 05/26/22 08:04 fexofenadine [From Ashlee] Allergy Unknown Verified 05/26/22 08:04 ibuprofen Allergy Shortness Verified 05/26/22 08:04 of breath Iodinated Contrast Media Allergy Shortness Verified 05/26/22 08:04 [DYEE] of breath iodine Allergy Shortness Verified 05/26/22 08:04 of breath levofloxacin [From Levaquin] Allergy Shortness Verified 05/26/22 08:04 of breath lorazepam [From Ativan] Allergy Shortness Verified 05/26/22 08:04 of breath nitrofurantoin Allergy Shortness Verified 05/26/22 08:04 macrocrystalline of breath [From Macrobid] Penicillins Allergy Shortness Verified 05/26/22 08:04 of breath rofecoxib [From Vioxx] Allergy Unknown Verified 05/26/22 08:04 Sulfa (Sulfonamide Allergy Shortness Verified 05/26/22 08:04 Antibiotics) of breath sulfamethoxazole Allergy Shortness Verified 05/26/22 08:04 [From Bactrim] of breath trimethoprim [From Bactrim] Allergy Shortness Verified 05/26/22 08:04 of breath amlodipine [From Norvasc] AdvReac Upset Verified 05/26/22 08:04 Stomach MISC BP MED Allergy Shortness Uncoded 05/26/22 08:04 of breath Family History Mother Heart disease Brother Heart disease Surgical History History of bilateral salpingo-oophorectomy History of laparoscopic cholecystectomy History of oral surgery S/P TIPS (transjugular intrahepatic portosystemic shunt) Social History Smoking Status: Former smoker alcohol intake: never substance use type: does not use ROS Review of Systems ROS Unobtainable: due to mental status Physical Exam Const Constitutional Narrative: The patient will arouse transiently to painful stimulation and fall quickly back to sleep. She remains quite somnolent. HEENT normocephalic and head/scalp atraumatic Eyes PERRL Neck supple General: trachea midline Chest inspection of chest normal Resp normal respiratory effort Auscultation: Negative for rales, rhonchi or wheezes Cardio regular rate and regular rhythm GI normal to inspection, nondistended, normoactive bowel sounds Extremity General Extremity: edema; Negative for clubbing Skin no rashes or lesions noted Neuro Neuro Narrative: Obtunded at the present time. Lab / Micro Data Result Diagrams: 05/27/22 04:03 05/27/22 04:03 Labs: Laboratory Results - last 24 hr 05/26/22 07:42: WBC 7.8, RBC 3.82 L, Hgb 10.2 L, Hct 31.7 L, MCV 83.0, MCH 26.7 L, MCHC 32.2, RDW Std Deviation 48.5 H, RDW Coeff of [place] 16.5 H, Plt Count 119 L, MPV 11.4, Immature Gran % (Auto) 0.500, Neut % (Auto) 83.6 H, Lymph % (Auto) 10.4 L, [place] % (Auto) 4.1, Eos % (Auto) 1.0, Baso % (Auto) 0.4, Absolute Neuts (auto) 6.5, Absolute Lymphs (auto) 0.81 L, Nucleated RBC % 0 05/26/22 07:42: PT 15.3 H, INR 1.2, APTT 28.1 05/26/22 07:42: Sodium 137, Potassium 5.2 H, Chloride 105, Carbon Dioxide 24.0, Anion Gap 8, BUN 46 H, Creatinine 1.86 H, Estim Creat Clear Calc 22.91, Est GFR (MDRD) Af Amer 34 L, Est GFR (MDRD) Non-Af 28 L, BUN/Creatinine Ratio 24.7 H, Glucose 450 H, Calcium 10.4 H, Troponin I High Sens 30 05/26/22 07:42: Lactic Acid 3.7 H* 05/26/22 07:42: Ammonia 159.0 H 05/26/22 08:00: Urine Color Yellow, Urine Clarity Sl. Cloudy, Urine pH 6.0, Ur Specific [place] 1.010, Urine Protein 30 H, Urine Glucose (UA) 1000 H, Urine Ketones Negative, Urine Occult Blood 250 H, Urine Nitrite Negative, Urine Bilirubin Negative, Urine Urobilinogen Normal, Ur Leukocyte Esterase 500 H, Urine RBC 25-50 SEEN, Urine WBC 25-50 SEEN, Ur Squamous Epith Cells 0-5 SEEN, Urine Bacteria 2+, Urine Mucus 0 SEEN 05/26/22 12:05: Lactic Acid 2.4 H* ABG Data ABG results: ABG 05/26/22 08:19 Specimen Type AYAZ VBG pH 7.40 VBG pO2 51 H VBG HCO3 23 VBG Total CO2 24 VBG O2 Sat (Calc) 86 H VBG Base Excess -2 L POC Mix VBG pCO2 Pt Tmp 36.6 L O2 Delivery Device Room Air Rhythm Strip Rhythm Strip: Sinus Rhythm Rate: 69 Ectopy: None Radiology Impression Brain CT 05/26/22 07:31 IMPRESSION: Mild generalized atrophy. Mild low density bilaterally in the deep white matter. This likely represents small vessel ischemic changes in the deep white matter. ASSESSMENT: ASPECTS ([place] Stroke Program Early CT Score) is 10. Electronically Signed: Fco Chaidez MD at 7:45 EDT , ADDENDUM: 05/26/22 9707 IMPRESSION: Mild generalized atrophy. Mild low density bilaterally in the deep white matter. This likely represents small vessel ischemic changes in the deep white matter. ASSESSMENT: ASPECTS ([place] Stroke Program Early CT Score) is 10. N.B. : The above Results were Read Back by Fco Chaidez MD to MD Acacia, and understanding confirmed on 05/26/2022 07:47:13 (ET). Electronically Signed: Fco Chaidez MD at 7:45 EDT , Cervical Spine CT 05/26/22 07:31 IMPRESSION: Multilevel degenerative changes, as described above. Electronically Signed: Roberto Amor MD at 9:04 EDT , Chest X-Ray 05/26/22 07:31 IMPRESSION: No acute abnormality is seen. Electronically Signed: Roberto Amor MD at 9:20 EDT , KUB X-Ray 05/26/22 09:50 IMPRESSION: The tip of the nasogastric tube is in the body of the stomach. A TIPS catheter is seen in the right upper quadrant. Electronically Signed: Roberto Amor MD at 10:49 EDT , Charges/Coding Visit Charges Inpatient E&M: 87171 Init Hosp L3
[2022-05-26 13:23] LABS: AST(SGOT) 28 U/L (15-37); Alanine Aminotransfer ALT/SGPT 30 U/L (13-56); Albumin, Serum 3.2 g/dL (3.2-5.0); Alkaline Phosphatase 99 U/L (45-117); Bilirubin, Direct 0.32 mg/dL (0.00-0.30); Globulin 4.4 g/dL (2.2-4.2); Protein, Total 7.6 g/dL (6.4-8.2)
[2022-05-26] MEDS: Polyethylene Glycol 3350 17 GM PACKET PO ×3 (13:57→22:28)
[2022-05-26] MEDS: cloNIDine HCl 0.1 MG Tablet PO ×2 (13:57→17:25)
[2022-05-26] MEDS: Lactulose 20 GM/30 ML UDC PO ×3 (13:57→20:18)
--- NOTE | 2022-05-26 16:54 | CON.PCM_ITS ---
Assessment & Plan Assessment/Plan (1) Acute hepatic encephalopathy: PLAN: Hepatic encephalopathy (occurs frequently after TIPS procedures with an incidence of 20% to 50%). Post-TIPS HE pharmacological approaches are directed at reducing enteric neurotoxin production and absorption. She has severe stage IV hepatic encephalopathy at this time. In order to get her ammonia level down as fast as possible we should incorporate lactulose plus polyethylene glycol according to the help trial to get her ammonia level down fast as possible. Hypomagnesemia secondary to TIPS procedure. She will likely need to have a TIPS revision. (2) SKY (acute kidney injury): PLAN: Hopefully, she is just experiencing SKY form Prerenal azotemia and not ATN or Hepatorenal syndrome. I will order a urine sodium and start her on Octreotide, midodrine and albumin. Continue NS @ 100ml/hr and when her GFR is >[address] a [address] angio to look for the resolution of the portal vein thrombosis and the splenic vein thrombosis associated with her cirrhosis. 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 We will have to keep an eye on her INR and bilirubin to make sure that she does not continue to decompensate. Her hgb seems stable and she is not showing any signs of ascites. I would recommend talking with dietary and regarding a branched chain amino diet and a protein diet that does not contain any meat products to help her hyperammonia anemia. HPI Consult Data Date of Consult: 05/26/22 HPI Narrative Reason for Consultation: hepatic encephalopathy HPI Narrative: MICHAEL HENLEY, is a 72 F with past medical history of N[place] cirrhosis secondary to type 2 diabetes and obesity.? Her cirrhosis and complicated by portal vein thrombosis, splenic vein thrombosis, esophageal varices, ascites, en cephalopathy.? She presented to the emergency room with altered mental status. ?She recently was admitted at [facility] for a TIPS procedure.? Complications involving the TIPS procedure included worsening encephalopathy.? She has still had ascites despite having the TIPS procedure.? She has not had a paracentesis since having the TIPS placed.? When she was admitted to the hospital she was discovered to have severe hypoalbuminemia, hepatic encephalopathy with a ammonia level of 68.? We do not know her baseline ammonia level and what it was prior to her undergoing TIPS procedure and after TIPS procedure.? She does take diuretic therapy on a daily basis. ? She does not take Xifaxan and takes lactulose once a day.? She does not know if she has any problems with hypomagnesemia, hypokalemia as causes of her worsening encephalopathy.? She does notice she has been anemic and thrombocyto penic.? She has not received blood transfusions or platelet transfusions. Patient was last seen going to bed around 10 PM last night.? She was found on the floor this morning by her .? Patient had to be picked up by her son.? She was noted to have increased weakness of the right side however she is not following commands for EMS.? Stroke alert was called in the field. [id number] at the bedside notes that patient has been having some eye difficulties for the past year and did have surgery on one of her eyes which is not sure which one.? No other additional information available at this time. All her labs were at baseline except for an elevated BUN/creatinine ratio of 46/1.6 and an elevated ammonia level of 158. [facility] Medical History (Updated 05/26/22 @ 17:[address] 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 Thrombocytopenia Home Medications albuterol sulfate 90 mcg/actuation aerosol inhaler 2 puff inhalation Q4H PRN PRN Sob &/Or Wheezing 07/04/16 [History Last Taken 10/16/16] clonidine HCl 0.1 mg tablet 0.1 mg PO TID blood pressure 11/20/17 [History Last Taken 02/08/22] clonidine HCl 0.2 mg tablet 0.2 mg PO BID blood pressure 01/06/19 [History Last Taken 02/09/22 08:00] albuterol sulfate 2.5 mg/3 mL (0.083 %) solution for nebulization 2.5 mg inhalation Q4H PRN PRN Sob &/Or Wheezing 01/30/21 [History Last Taken Unknown] furosemide 20 mg tablet 30 mg PO BID water pill 01/30/21 [History Last Taken 02/09/22 08:00] artificial tears solution eye drops 1 drp ophthalmic (eye) TID dry eyes 02/09/22 [History Last Taken 02/08/22] atorvastatin 40 mg tablet (Lipitor) 40 mg PO QHS cholesterol 02/09/22 [History Last Taken 02/08/22] labetalol 100 mg tablet 100 mg PO BID Check with primary doctor 05/26/22 [History Last Taken Unknown] lactulose 20 gram/30 mL oral solution 20 g PO .qid Check with primary doctor 05/26/22 [History Last Taken Unknown] spironolactone 25 mg tablet 25 mg PO BID Check with primary doctor 05/26/22 [History Last Taken Unknown] Allergy/AdvReac Type Severity Reaction Status Date / Time suture Allergy Mild rash/ Verified 05/26/22 08:04 wound dehisence amoxicillin Allergy Unknown Verified 05/26/22 08:04 azithromycin Allergy Shortness Verified 05/26/22 08:04 of breath celecoxib [From Celebrex] Allergy Other Verified 05/26/22 08:04 ciprofloxacin HCl Allergy Shortness Verified 05/26/22 08:04 [From Cipro] of breath cortisone Allergy Swelling Verified 05/26/22 08:04 doxycycline Allergy Shortness Verified 05/26/22 08:04 of breath erythromycin base Allergy Unknown Verified 05/26/22 08:04 fexofenadine [From Ashlee] Allergy Unknown Verified 05/26/22 08:04 ibuprofen Allergy Shortness Verified 05/26/22 08:04 of breath Iodinated Contrast Media Allergy Shortness Verified 05/26/22 08:04 [DYEE] of breath iodine Allergy Shortness Verified 05/26/22 08:04 of breath levofloxacin [From Levaquin] Allergy Shortness Verified 05/26/22 08:04 of breath lorazepam [From Ativan] Allergy Shortness Verified 05/26/22 08:04 of breath nitrofurantoin Allergy Shortness Verified 05/26/22 08:04 macrocrystalline of breath [From Macrobid] Penicillins Allergy Shortness Verified 05/26/22 08:04 of breath rofecoxib [From Vioxx] Allergy Unknown Verified 05/26/22 08:04 Sulfa (Sulfonamide Allergy Shortness Verified 05/26/22 08:04 Antibiotics) of breath sulfamethoxazole Allergy Shortness Verified 05/26/22 08:04 [From Bactrim] of breath trimethoprim [From Bactrim] Allergy Shortness Verified 05/26/22 08:04 of breath amlodipine [From Norvasc] AdvReac Upset Verified 05/26/22 08:04 Stomach MISC BP MED Allergy Shortness Uncoded 05/26/22 08:04 of breath Family History Mother Heart disease Brother Heart disease Surgical History History of bilateral salpingo-oophorectomy History of laparoscopic cholecystectomy History of oral surgery S/P TIPS (transjugular intrahepatic portosystemic shunt) Social History Smoking Status: Former smoker alcohol intake: never substance use type: does not use ROS Review of Systems ROS Unobtainable: due to mental status Physical Exam Const Constitutional Narrative: The patient will arouse transiently to painful stimulation and fall quickly back to sleep. She remains quite somnolent. HEENT normocephalic and head/scalp atraumatic Eyes PERRL Neck supple General: trachea midline Chest inspection of chest normal Resp normal respiratory effort Auscultation: Negative for rales, rhonchi or wheezes Cardio regular rate and regular rhythm GI normal to inspection, nondistended, normoactive bowel sounds Extremity General Extremity: edema; Negative for clubbing Skin no rashes or lesions noted Neuro Neuro Narrative: Obtunded at the present time. Lab / Micro Data Result Diagrams: 05/26/22 07:42 05/26/22 07:42 Labs: Laboratory Results - last 24 hr 05/26/22 07:42: WBC 7.8, RBC 3.82 L, Hgb 10.2 L, Hct 31.7 L, MCV 83.0, MCH 26.7 L, MCHC 32.2, RDW Std Deviation 48.5 H, RDW Coeff of [place] 16.5 H, Plt Count 119 L , MPV 11.4, Immature Gran % (Auto) 0.500, Neut % (Auto) 83.6 H, Lymph % (Auto) 10.4 L, [place] % (Auto) 4.1, Eos % (Auto) 1.0, Baso % (Auto) 0.4, Absolute Neuts (auto) 6.5, Absolute Lymphs (auto) 0.81 L, Nucleated RBC % 0 08/08/22 07:42: PT 15.3 H, INR 1.2, APTT 28.1 05/26/22 07:42: Sodium 137, Potassium 5.2 H, Chloride 105, Carbon Dioxide 24.0, Anion Gap 8, BUN 46 H, Creatinine 1.86 H, Estim Creat Clear Calc 22.91, Est GFR (MDRD) Af Amer 34 L, Est GFR (MDRD) Non-Af 28 L, BUN/Creatinine Ratio 24.7 H, Glucose 450 H, Calcium 10.4 H, Troponin I High Sens 30 05/26/22 07:42: Lactic Acid 3.7 H* 05/26/22 07:42: Ammonia 159.0 H 05/26/22 07:42: Total Bilirubin 0.90, Direct Bilirubin 0.32 H, AST 28, ALT 30, Alkaline Phosphatase 99, Total Protein 7.6, Albumin 3.2, Globulin 4.4 H 05/26/22 08:00: Urine Color Yellow, Urine Clarity Sl. Cloudy, Urine pH 6.0, Ur Specific [place] 1.010, Urine Protein 30 H, Urine Glucose (UA) 1000 H, Urine Ketones Negative, Urine Occult Blood 250 H, Urine Nitrite Negative, Urine Bilirubin Negative, Urine Urobilinogen Normal, Ur Leukocyte Esterase 500 H, Urine RBC 25-50 SEEN, Urine WBC 25-50 SEEN, Ur Squamous Epith Cells 0-5 SEEN, Urine Bacteria 2+, Urine Mucus 0 SEEN 05/26/22 12:05: Lactic Acid 2.4 H* ABG Data ABG results: ABG 05/26/22 08:19 Specimen Type AYAZ VBG pH 7.40 VBG pO2 51 H VBG HCO3 23 VBG Total CO2 24 VBG O2 Sat (Calc) 86 H VBG Base Excess -2 L POC Mix VBG pCO2 Pt Tmp 36.6 L O2 Delivery Device Room Air Rhythm Strip Rhythm Strip: Sinus Rhythm Rate: 69 Ectopy: None Radiology Impression Brain CT 05/26/22 07:31 IMPRESSION: Mild generalized atrophy. Mild low density bilaterally in the deep white matter. This likely represents small vessel ischemic changes in the deep white matter. ASSESSMENT: ASPECTS ([place] Stroke Program Early CT Score) is 10. Electronically Signed: Fco Chaidez MD at 7:45 EDT , ADDENDUM: 05/26/22 0754 IMPRESSION: Mild generalized atrophy. Mild low density bilaterally in the deep white matter. This likely represents small vessel ischemic changes in the deep white matter. ASSESSMENT: ASPECTS ([place] Stroke Program Early CT Score) is 10. N.B. : The above Results were Read Back by Fco Chaidez MD to MD Acacia, and understanding confirmed on 05/26/2022 07:47:13 (ET). Electronically Signed: Fco Chaidez MD at 7:45 EDT , Cervical Spine CT 05/26/22 07:31 IMPRESSION: Multilevel degenerative changes, as described above. Electronically Signed: Roberto Amor MD at 9:04 EDT , Chest X-Ray 05/26/22 07:31 IMPRESSION: No acute abnormality is seen. Electronically Signed: Roberto Amor MD at 9:20 EDT , KUB X-Ray 05/26/22 09:50 IMPRESSION: The tip of the nasogastric tube is in the body of the stomach. A TIPS catheter is seen in the right upper quadrant. Electronically Signed: Roberto Amor MD at 10:49 EDT , Charges/Coding Visit Charges Inpatient E&M: 29090 Init Hosp L3
[2022-05-26] MEDS: 0.9% Normal Saline 1,000 ML 100 ML IV (17:47)
[2022-05-26] MEDS: Albumin Human 25% (50 mL) 12.5 GM/50 ML IV.SOLN IV (19:28)
[2022-05-26] MEDS: cloNIDine HCl 0.2 MG Tablet PO (20:17)
[2022-05-26] MEDS: Glycerin/Hypromellose/PEG400 15 ml Bottle 1 DRP EACH EYE (20:17)
[2022-05-26] MEDS: Labetalol 100 MG Tablet PO (20:17)
[2022-05-26] MEDS: Atorvastatin Calcium 40 MG Tablet PO (20:18)
[2022-05-26] MEDS: Famotidine 20 MG Tablet PO (20:18)
[2022-05-26] MEDS: rifAXIMin 550 MG Tablet PO (20:23)
[2022-05-27] VITALS (23 sets, daily range): BP systolic 78–156; BP diastolic 24–89; PULSE 50–79; RESP 14–20; TEMP 36.6–37.6; O2SAT 95–100
[2022-05-27] MEDS: Lactulose 20 GM/30 ML UDC PO ×5 (01:21→20:55)
[2022-05-27] MEDS: 0.9% Normal Saline 1,000 ML 100 ML IV ×2 (02:58→18:05)
[2022-05-27] MEDS: Glycerin/Hypromellose/PEG400 15 ml Bottle 1 DRP EACH EYE ×3 (04:11→20:55)
[2022-05-27] MEDS: Polyethylene Glycol 3350 17 GM PACKET PO ×4 (04:11→20:57)
[2022-05-27 04:15] LABS: Absolute Lymphocyte Count 1.04 X10^3/uL (0.83-4.51); Absolute Neutrophil Count 3.4 X10^3/uL (2.0-7.7); Basophil# 0.03 X10^3/uL; Basophil% 0.6 % (0-1); Eosinophil# 0.25 X10^3/uL; Eosinophils% 4.8 % (0-5); Hematocrit 23.9 % (37-47); Hemoglobin 7.4 g/dL (12.0-15.0); Lymphocyte # 1.04 X10^3/ul (0.83-4.51); Lymphocyte % 20.2 % (19-41); Mean Corpuscular Hgb 26.6 pg (27.0-32.0); Mean Platelet Vol. 11.4 fl (6.2-12.0); Monocyte# 0.48 X10^3/uL; Monocyte% 9.3 % (0-10); NRBC Flagged by Analyzer 0 % (0-5); Neutrophil # 3.35 X10^3/uL (2.7-7.7); Neutrophil % 64.9 % (47-70); POSITIVE COUNT YES; Platelet Count 64 K/mm3 (150-450); RBC Distribution Width CV 16.1 % (11.6-14.6); RBC Distribution Width SD 50.5 fl (35.1-43.9); Red Blood Count 2.78 M/mm3 (4.2-5.4); White Blood Count 5.2 K/mm3 (4.4-11.0)
[2022-05-27 04:16] LABS: Differential Indicated SCAN CRITERIA MET
[2022-05-27 04:20] LABS: Anisocytosis 1+
[2022-05-27 04:21] LABS: Platelet Estimate MOD DEC (ADEQ)
[2022-05-27 04:23] LABS: International Normalized Ratio 1.4; Prothrombin Time (Protime)PT. 16.9 SECONDS (11.7-14.9)
[2022-05-27 05:03] LABS: AST(SGOT) 27 U/L (15-37); Alanine Aminotransfer ALT/SGPT 23 U/L (13-56); Albumin, Serum 2.5 g/dL (3.2-5.0); Alkaline Phosphatase 71 U/L (45-117); Anion Gap 5 (5-15); BUN 32 mg/dL (7-18); BUN/Creat Ratio 24.4 RATIO (10-20); Bilirubin, Direct 0.25 mg/dL (0.00-0.30); Calcium,Total 8.7 mg/dL (8.5-10.1); Chloride 112 mmol/L (98-107); Creatinine, Serum 1.31 mg/dL (0.55-1.02); EST Glomerular Filtration Rate 42 mL/min (>60); Est Glom Filt Rate - Afr Amer 51 mL/min (>60); Estimated Creatinine Clearance 32.53 ml/min; Globulin 3.1 g/dL (2.2-4.2); Glucose 248 mg/dL (74-106); Magnesium 2.3 mg/dL (1.6-2.6); Potassium 3.8 mmol/L (3.5-5.1); Protein, Total 5.6 g/dL (6.4-8.2); Sodium Level 143 mmol/L (136-145)
--- NOTE | 2022-05-27 06:05 | PN.CC_ITS ---
Assessment & Plan Assessment/Plan (1) Acute hepatic encephalopathy: PLAN: Plan RECOMMENDATIONS: 1. Continue antimicrobials pending culture results. 2. Continue lactulose and rifaximin as ordered. 3. Continue to monitor H&H. Transfuse if hemoglobin drops below 7 g/dL. 4. Additional anemia work-up per GI. 5. The patient is medically stable for transfer out of the intensive care unit. IMPRESSIONS: 1. Hepatic encephalopathy Resolved. The patient presented to the hospital after being found unresponsive by family members. Acute CVA was ruled out. The patient's medical history is significant for Núñez cirrhosis, complicated by portal vein thrombosis, splenic vein thrombosis and esophageal varices. The patient was medically managed with NG tube placement and subsequent lactulose administration. Her mentation improved within 24 hours. Her hyperammonemia has resolved. Gastroenterology is following. Ultimately, the patient may require TIPS revision. 2. Probable cystitis Initial urine analysis was concerning for cystitis. The patient has been initiated on appropriate antimicrobials. Urine culture is pending. 3. Acute kidney injury Improving. Likely prerenal in etiology. Continue fluids as ordered. Continue to monitor urine output. No current indication for renal replacement therapy. 4. Acute on chronic anemia The patient has a known history of angiodysplastic lesions in the stomach. This has been treated in the past with APC via endoscopy. Plan to continue to monitor blood counts. Transfuse if hemoglobin drops below 7 g/dL. Additional work-up per gastroenterology. 5. Anemia/thrombocytopenia/hypertension/diabetes mellitus Complicates care, management, recovery and prognosis. Continue home medications as indicated. This note was generated with [employer] dictation software. It may contain incorrect words, spelling, and punctuation that were not noted in checking the note before signing. Subjective Subjective The patient was seen and examined at the bedside this morning. Events from the last 24 hours have been reviewed. The patient is currently afebrile, hemodynamically stable and maintaining appropriate oxygen saturations on room air. The patient is documented to be overall net +2.6 L for the hospitalizati on. The patient is completely alert and appropriately interactive this morning. She did remove her NG tube overnight. Hemoglobin is down to 7.4 g/dL this morning. Platelet count is low at 64,000. Creatinine has improved to 1.3. Ammonia level has improved to 38. The patient is insistent that she wants to go home today. Objective Data Objective Data The patient's most recent lab work, culture data and imaging studies have all been personally reviewed. Blood and urine cultures are pending. Vital Signs: Vital Signs Temp Pulse Resp BP Pulse Ox O2 Del Method O2 Flow Rate 98.4 F 52 L 15 104/34 L 97 Room Air 2 05/27/22 04:00 05/27/22 05:00 05/27/22 05:00 05/27/22 05:00 05/27/22 05:00 05/27/22 05:00 05/26/22 13:00 Oxygen Flow Rate (L/min) 2 Oxygen Delivery Method Room Air Weight: 143 lb 8.335 oz Body Mass Index (BMI) 24.0 Intake & Output: Intake and Output for Last 24 Hours 05/25/22 05/26/22 05/27/22 23:59 23:59 23:59 Intake Total 2965 / 2965 1538.33 / 1538.33 Output Total 1650 / 1650 250 / 250 Balance 1315 / 1315 1288.33 / 1288.33 Lab / Micro Data Attestation: I reviewed the patient's lab results. Result Diagrams: 05/27/22 04:03 05/27/22 04:03 Labs: Laboratory Results - last 24 hr 05/26/22 07:42: WBC 7.8, RBC 3.82 L, Hgb 10.2 L, Hct 31.7 L, MCV 83.0, MCH 26.7 L, MCHC 32.2, RDW Std Deviation 48.5 H, RDW Coeff of [place] 16.5 H, Plt Count 119 L , MPV 11.4, Immature Gran % (Auto) 0.500, Neut % (Auto) 83.6 H, Lymph % (Auto) 10.4 L, [place] % (Auto) 4.1, Eos % (Auto) 1.0, Baso % (Auto) 0.4, Absolute Neuts (auto) 6.5, Absolute Lymphs (auto) 0.81 L, Nucleated RBC % 0 05/26/22 07:42: PT 15.3 H, INR 1.2, APTT 28.1 05/26/22 07:42: Sodium 137, Potassium 5.2 H, Chloride 105, Carbon Dioxide 24.0, Anion Gap 8, BUN 46 H, Creatinine 1.86 H, Estim Creat Clear Calc 22.91, Est GFR (MDRD) Af Amer 34 L, Est GFR (MDRD) Non-Af 28 L, BUN/Creatinine Ratio 24.7 H, Glucose 450 H, Calcium 10.4 H, Troponin I High Sens 30 05/26/22 07:42: Lactic Acid 3.7 H* 05/26/22 07:42: Ammonia 159.0 H 05/26/22 07:42: Total Bilirubin 0.90, Direct Bilirubin 0.32 H, AST 28, ALT 30, Alkaline Phosphatase 99, Total Protein 7.6, Albumin 3.2, Globulin 4.4 H 05/26/22 08:00: Urine Color Yellow, Urine Clarity Sl. Cloudy, Urine pH 6.0, Ur Specific [place] 1.010, Urine Protein 30 H, Urine Glucose (UA) 1000 H, Urine Ketones Negative, Urine Occult Blood 250 H, Urine Nitrite Negative, Urine Bilirubin Negative, Urine Urobilinogen Normal, Ur Leukocyte Esterase 500 H, Urine RBC 25-50 SEEN, Urine WBC 25-50 SEEN, Ur Squamous Epith Cells 0-5 SEEN, Urine Bacteria 2+, Urine Mucus 0 SEEN 05/26/22 12:05: Lactic Acid 2.4 H* 05/27/22 04:03: Sodium 143, Potassium 3.8, Chloride 112 H, Carbon Dioxide 26.0, Anion Gap 5, BUN 32 H, Creatinine 1.31 H, Estim Creat Clear Calc 32.53, Est GFR (MDRD) Af Amer 51 L, Est GFR (MDRD) Non-Af 42 L, BUN/Creatinine Ratio 24.4 H, Glucose 248 H, Calcium 8.7, Magnesium 2.3, Total Bilirubin 0.70, Direct Bilirubin 0.25, AST 27, ALT 23, Alkaline Phosphatase 71, Total Protein 5.6 L, Albumin 2.5 L, Globulin 3.1 05/27/22 04:03: WBC 5.2, RBC 2.78 L, Hgb 7.4 L, Hct 23.9 L, MCV 86.0, MCH 26.6 L , MCHC 31.0 L, RDW Std Deviation 50.5 H, RDW Coeff of [place] 16.1 H, Plt Count 64 L , MPV 11.4, Immature Gran % (Auto) 0.200, Neut % (Auto) 64.9, Lymph % (Auto) 20.2, [place] % (Auto) 9.3, Eos % (Auto) 4.8, Baso % (Auto) 0.6, Absolute Neuts (auto) 3.4, Absolute Lymphs (auto) 1.04, Nucleated RBC % 0, Platelet Estimate MOD DEC, Anisocytosis 1+ 05/27/22 04:03: PT 16.9 H, INR 1.4 05/27/22 04:03: Ammonia 38.0 H ABG Data ABG results: ABG 05/26/22 08:19 Specimen Type AYAZ VBG pH 7.40 VBG pO2 51 H VBG HCO3 23 VBG Total CO2 24 VBG O2 Sat (Calc) 86 H VBG Base Excess -2 L POC Mix VBG pCO2 Pt Tmp 36.6 L O2 Delivery Device Room Air Radiography Diagnostic Testing: Radiology Impression Brain CT 05/26/22 07:31 IMPRESSION: Mild generalized atrophy. Mild low density bilaterally in the deep white matter. This likely represents small vessel ischemic changes in the deep white matter. ASSESSMENT: ASPECTS ([place] Stroke Program Early CT Score) is 10. Electronically Signed: Fco Chaidez MD at 7:45 EDT , ADDENDUM: 05/26/22 0754 IMPRESSION: Mild generalized atrophy. Mild low density bilaterally in the deep white matter. This likely represents small vessel ischemic changes in the deep white matter. ASSESSMENT: ASPECTS ([place] Stroke Program Early CT Score) is 10. N.B. : The above Results were Read Back by Fco Chaidez MD to MD Acacia, and understanding confirmed on 05/26/2022 07:47:13 (ET). Electronically Signed: Fco Chaidez MD at 7:45 EDT , Cervical Spine CT 05/26/22 07:31 IMPRESSION: Multilevel degenerative changes, as described above. Electronically Signed: Roberto Amor MD at 9:04 EDT , Chest X-Ray 05/26/22 07:31 IMPRESSION: No acute abnormality is seen. Electronically Signed: Roberto Amor MD at 9:20 EDT , KUB X-Ray 05/26/22 09:50 IMPRESSION: The tip of the nasogastric tube is in the body of the stomach. A TIPS catheter is seen in the right upper quadrant. Electronically Signed: Roberto Amor MD at 10:49 EDT , Rhythm Strip Rhythm Strip: Sinus Rhythm Rate: 69 Ectopy: None Physical Exam Const alert and no apparent distress General Appearance: cooperative HEENT normocephalic and head/scalp atraumatic Eyes PERRL, EOMs intact bilaterally and conjunctivae normal Neck supple General: trachea midline Chest inspection of chest normal Resp normal respiratory effort Auscultation: Negative for rales, rhonchi or wheezes Cardio regular rate and regular rhythm GI normal to inspection, nondistended, normoactive bowel sounds Extremity General Extremity: edema; Negative for clubbing Skin no rashes or lesions noted Neuro CN's II-XII intact bilaterally and no focal motor deficits Psych cooperative and affect normal Charges/Coding Visit Charges Inpatient E&M: 53342 Subs Hosp L2
--- NOTE | 2022-05-27 07:23 | PN.HOSP_ITS ---
Subjective Subjective Patient seen level of sensorium markedly improved. Ammonia level down to 38. Plan is for transfer patient from ICU to [facility]. Patient was also seen in consultation by GI Dr. Gaming the day prior recommended addition of polyethylene glycol to her lactulose. Patient was also started on octreotide midodrine and a lbumin in addition to IV fluids Objective Data Objective Data Vital Signs: Vital Signs Temp Pulse Resp BP Pulse Ox O2 Del Method O2 Flow Rate 98.4 F 68 14 115/36 L 95 Room Air 2 05/27/22 04:00 05/27/22 07:00 05/27/22 07:00 05/27/22 07:00 05/27/22 07:00 05/27/22 07:00 05/26/22 13:00 Oxygen Flow Rate (L/min) 2 Oxygen Delivery Method Room Air Weight: 65.1 kg Body Mass Index (BMI) 24.0 Intake & Output: Intake and Output for Last 24 Hours 05/25/22 05/26/22 05/27/22 23:59 23:59 23:59 Intake Total 2965 / 2965 1538.33 / 1538.33 Output Total 1650 / 1650 250 / 250 Balance 1315 / 1315 1288.33 / 1288.33 Lab / Micro Data Result Diagrams: 05/27/22 04:03 05/27/22 04:03 Labs: Laboratory Results - last 24 hr 05/26/22 07:42: WBC 7.8, RBC 3.82 L, Hgb 10.2 L, Hct 31.7 L, MCV 83.0, MCH 26.7 L, MCHC 32.2, RDW Std Deviation 48.5 H, RDW Coeff of [place] 16.5 H, Plt Count 119 L , MPV 11.4, Immature Gran % (Auto) 0.500, Neut % (Auto) 83.6 H, Lymph % (Auto) 10.4 L, [place] % (Auto) 4.1, Eos % (Auto) 1.0, Baso % (Auto) 0.4, Absolute Neuts (auto) 6.5, Absolute Lymphs (auto) 0.81 L, Nucleated RBC % 0 05/26/22 07:42: PT 15.3 H, INR 1.2, APTT 28.1 05/26/22 07:42: Sodium 137, Potassium 5.2 H, Chloride 105, Carbon Dioxide 24.0, Anion Gap 8, BUN 46 H, Creatinine 1.86 H, Estim Creat Clear Calc 22.91, Est GFR (MDRD) Af Amer 34 L, Est GFR (MDRD) Non-Af 28 L, BUN/Creatinine Ratio 24.7 H, Glucose 450 H, Calcium 10.4 H, Troponin I High Sens 30 05/26/22 07:42: Lactic Acid 3.7 H* 05/26/22 07:42: Ammonia 159.0 H 05/26/22 07:42: Total Bilirubin 0.90, Direct Bilirubin 0.32 H, AST 28, ALT 30, Alkaline Phosphatase 99, Total Protein 7.6, Albumin 3.2, Globulin 4.4 H 05/26/22 08:00: Urine Color Yellow, Urine Clarity Sl. Cloudy, Urine pH 6.0, Ur Specific [place] 1.010, Urine Protein 30 H, Urine Glucose (UA) 1000 H, Urine Ketones Negative, Urine Occult Blood 250 H, Urine Nitrite Negative, Urine Bilirubin Negative, Urine Urobilinogen Normal, Ur Leukocyte Esterase 500 H, Urine RBC 25-50 SEEN, Urine WBC 25-50 SEEN, Ur Squamous Epith Cells 0-5 SEEN, Urine Bacteria 2+, Urine Mucus 0 SEEN 05/26/22 12:05: Lactic Acid 2.4 H* 05/27/22 04:03: Sodium 143, Potassium 3.8, Chloride 112 H, Carbon Dioxide 26.0, Anion Gap 5, BUN 32 H, Creatinine 1.31 H, Estim Creat Clear Calc 32.53, Est GFR (MDRD) Af Amer 51 L, Est GFR (MDRD) Non-Af 42 L, BUN/Creatinine Ratio 24.4 H, Glucose 248 H, Calcium 8.7, Magnesium 2.3, Total Bilirubin 0.70, Direct Bilirubin 0.25, AST 27, ALT 23, Alkaline Phosphatase 71, Total Protein 5.6 L, Albumin 2.5 L, Globulin 3.1 05/27/22 04:03: WBC 5.2, RBC 2.78 L, Hgb 7.4 L, Hct 23.9 L, MCV 86.0, MCH 26.6 L , MCHC 31.0 L, RDW Std Deviation 50.5 H, RDW Coeff of [place] 16.1 H, Plt Count 64 L , MPV 11.4, Immature Gran % (Auto) 0.200, Neut % (Auto) 64.9, Lymph % (Auto) 20.2, [place] % (Auto) 9.3, Eos % (Auto) 4.8, Baso % (Auto) 0.6, Absolute Neuts (auto) 3.4, Absolute Lymphs (auto) 1.04, Nucleated RBC % 0, Platelet Estimate MOD DEC, Anisocytosis 1+ 05/27/22 04:03: PT 16.9 H, INR 1.4 05/27/22 04:03: Ammonia 38.0 H ABG Data ABG results: ABG 05/26/22 08:19 Specimen Type AYAZ VBG pH 7.40 VBG pO2 51 H VBG HCO3 23 VBG Total CO2 24 VBG O2 Sat (Calc) 86 H VBG Base Excess -2 L POC Mix VBG pCO2 Pt Tmp 36.6 L O2 Delivery Device Room Air Radiography Diagnostic Testing: Radiology Impression Brain CT 05/26/22 07:31 IMPRESSION: Mild generalized atrophy. Mild low density bilaterally in the deep white matter. This likely represents small vessel ischemic changes in the deep white matter. ASSESSMENT: ASPECTS ([place] Stroke Program Early CT Score) is 10. Electronically Signed: Fco Chaidez MD at 7:45 EDT , ADDENDUM: 05/26/22 0754 IMPRESSION: Mild generalized atrophy. Mild low density bilaterally in the deep white matter. This likely represents small vessel ischemic changes in the deep white matter. ASSESSMENT: ASPECTS ([place] Stroke Program Early CT Score) is 10. N.B. : The above Results were Read Back by Fco Chaidez MD to MD Acacia, and understanding confirmed on 05/26/2022 07:47:13 (ET). Electronically Signed: Fco Chaidez MD at 7:45 EDT , Cervical Spine CT 05/26/22 07:31 IMPRESSION: Multilevel degenerative changes, as described above. Electronically Signed: Roberto Amor MD at 9:04 EDT , Chest X-Ray 05/26/22 07:31 IMPRESSION: No acute abnormality is seen. Electronically Signed: Roberto Amor MD at 9:20 EDT , KUB X-Ray 05/26/22 09:50 IMPRESSION: The tip of the nasogastric tube is in the body of the stomach. A TIPS catheter is seen in the right upper quadrant. Electronically Signed: Roberto Amor MD at 10:49 EDT , Rhythm Strip Rhythm Strip: Sinus Rhythm Rate: 69 Ectopy: None Physical Exam Narrative GENERAL: Obtunded but reacts to sternal rub HEENT: Atraumatic; EYES; Anicteric, Normal Conjunctiva NECK; supple, normal thyroid, RESPIRATORY: Diminished to auscultation CARDIOVASCULAR: Regular S1 S2, GI: soft, normoactive bowel sounds, : No Renal angle tenderness; EXTREMITIES: No edema, no clubbing, MUSCULOSKELETAL: no muscle wasting NEURO: Encephalopathic SKIN: No Rash PSYCH; unable to assess Assessment & Plan Assessment/Plan (1) Acute hepatic encephalopathy: PLAN: Plan Patient is a 72-year-old lady with underlying history of 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 Acute hepatic encephalopathy (Metabolic encephalopathy) ? Possibly for stated by patient underlying UTI. Patient has been admitted to the intensive care unit for close monitoring as part of a management an NG tube was placed lactulose ordered 20 g every 4 hours. Patient response been monitored with serial ammonia levels -05/27/2022;Patient seen level of sensorium markedly improved. Ammonia level down to 38. Plan is for transfer patient from ICU to [facility]. Patient was also seen in consultation by GI Dr. Gaming the day prior recommended addition of polyethylene glycol to her lactulose. Patient was also started on octreotide midodrine and albumin in addition to IV fluids. Continue with monitoring with serial ammonia levels 2. Acute cystitis ? Patient was started on Rocephin from the emergency department did continue plan is either continue with the Rocephin or adjust based on results of urine cultures ? 05/27/2022 urine cultures pending, will continue with current antibiotic therapy pending results of urinalysis 3. 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 Patient is on lactulose, Aldactone and furosemide 4. Hyperkalemia ? Secondary to patient being on potassium sparing diuretics this was held on admission 5. Anemia - Secondary to chronic disorder monitoring H&H and transfuse if patient becomes symptomatic or hemoglobin falls below 7 -05/27/2022 significant drop in patient hemoglobin to 7.4. Patient has history of GI bleed. Consult subsequently placed to GI 6. Thrombocytopenia ? Secondary to chronic liver disease we will monitor 7. Acute kidney injury ? Baseline creatinine from 02/17/2022 was 0.67, was 1.86 on admission. Patient is on both furosemide as well as spironolactone held on admission resuscitated with IV fluid with subsequent monitoring of electrolytes ordered -05/27/2022 this was thought to be secondary to prerenal azotemia patient did receive midodrine octreotide and albumin in addition to IV fluid creatinine down to 1.31 8. Lactic acidosis ? Due to patient's underlying liver disease as well as UTI monitoring with serial lactic acid levels 9. Essential hypertension ? Discontinue with home medications clonidine and labetalol 10. Dyslipidemia -Patient is on statin therapy, continued at home dose 11.History of esophageal varices Patient underwent EGD on 02/11/2022 during her past admission which showed resol ution of the varices. She was however noted to have a single bleeding angioplastic lesion that was cauterized 12. 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 Resolved. Patient was apparently managed at [facility] by vascular surgery 13. Diabetes mellitus type 2 ? Apparently managed with diet 14. DVT prophylaxis ? Bilateral SCDs only avoided the use of chemoprophylaxis in view of patient low platelet counts Charges/Coding Visit Charges Inpatient E&M: 80572 Subs Hosp L3
[2022-05-27 08:36] LABS: Iron 37 ug/dL (50-170); Iron Binding Capacity,Total 290 ug/dL (250-450); PERCENT IRON SATURATION 12.8 % (15.0-55.0)
[2022-05-27] MEDS: Famotidine 20 MG Tablet PO (10:58)
[2022-05-27] MEDS: cloNIDine HCl 0.2 MG Tablet PO ×2 (10:58→20:55)
[2022-05-27] MEDS: rifAXIMin 550 MG Tablet PO ×2 (10:59→20:55)
[2022-05-27] MEDS: Labetalol 100 MG Tablet PO ×2 (10:59→20:55)
[2022-05-27] MEDS: Ceftriaxone 1 GM/50 ML BAG IV (11:00)
[2022-05-27] MEDS: Albumin Human 25% (50 mL) 12.5 GM/50 ML IV.SOLN IV (11:46)
--- NOTE | 2022-05-27 13:00 | CASEMGMT ---
RN CM attempted to complete RN CM assessment at this time. Patient currently at endoscopy. CM to attempt assessment at later time.
--- NOTE | 2022-05-27 15:21 | NURSING ---
report called to med-surg 3 for transfer to room 301when available after endo
--- NOTE | 2022-05-27 15:27 | OP.EGD_ITS ---
Patient Name: Sol Ann Procedure Date: 05/27/2022 2:42 PM Date of : 1950 Age: 72 Procedure: Upper GI endoscopy Indications: Acute post hemorrhagic anemia, Iron deficiency anemia Providers: Saman Gaming DO Medicines: Monitored Anesthesia Care Patient Profile: This is a 72 year old female. Refer to note in patient chart for documentation of history and physical. Patient has symptoms. She is status post EGD for treatment of bleeding within the past three months. Complications: No immediate complications. Procedure: Pre-Anesthesia Assessment: - Prior to the procedure, a History and Physical was performed, and patient medications and allergies were reviewed. The risks and benefits of the procedure and the sedation options and risks were discussed with the patient. All questions were answered and informed consent was obtained. Patient identification and proposed procedure were verified by the physician in the pre-procedure area. Mental Status Examination: alert and oriented. Airway Examination: normal oropharyngeal airway and neck mobility. Respiratory Examination: clear to auscultation. CV Examination: normal. Prophylactic Antibiotics: The patient does not require prophylactic antibiotics. Prior Anticoagulants: The patient has taken no previous anticoagulant or antiplatelet agents. ASA Grade Assessment: II - A patient with mild systemic disease. After reviewing the risks and benefits, the patient was deemed in satisfactory condition to undergo the procedure. The anesthesia plan was to use moderate sedation / analgesia (conscious sedation). Immediately prior to administration of medications, the patient was re-assessed for adequacy to receive sedatives. The heart rate, respiratory rate, oxygen saturations, blood pressure, adequacy of pulmonary ventilation, and response to care were monitored throughout the procedure. The physical status of the patient was re-assessed after the procedure. After obtaining informed consent, the endoscope was passed under direct vision. Throughout the procedure, the patient's blood pressure, pulse, and oxygen saturations were monitored continuously. The Endoscope was introduced through the mouth, and advanced to the second part of duodenum. The upper GI endoscopy was accomplished without difficulty. The patient tolerated the procedure well. Scope In: 3:16:24 PM Scope Out: 3:20:30 PM Total Procedure Duration Time 0 hours 4 minutes 6 seconds Findings: The examined esophagus was normal. The entire examined stomach was normal. A medium-sized hiatal hernia was present. No gross lesions were noted in the second portion of the duodenum. Impression: - Normal esophagus. - Normal stomach. - Medium-sized hiatal hernia. - No gross lesions in the second portion of the duodenum. - No specimens collected. Recommendation: - Discharge patient to home. - Resume previous diet. - Continue present medications. Procedure Code(s): --- Professional --- 09517, Esophagogastroduodenoscopy, flexible, transoral; diagnostic, including collection of specimen(s) by brushing or washing, when performed (separate procedure) CPT copyright 2017 [employer]. All rights reserved. The codes documented in this report are preliminary and upon medical records coder review may be revised to meet current compliance requirements. Saman Gaming DO 05/27/2022 3:26:55 PM This report has been signed electronically. Number of Addenda: 1 Note Initiated On: 05/27/2022 2:42 PM Addendum Number: 1 Addendum Date: 07/24/2022 6:22:34 AM MAC was used as sedation for this procedure. Saman Gaming DO 07/24/2022 6:22:38 AM This report has been signed electronically.
--- NOTE | 2022-05-27 15:28 | OP.CCLET_ITS ---
07/24/2022 Josiah Smith [address] [place] [address] Re : Upper GI endoscopy procedure for Sol Ann Dear Dr. Smith This procedure was performed on Friday, May 27, 2022. My impressions and recommendations are as follows: Impressions : - Normal esophagus. - Normal stomach. - Medium-sized hiatal hernia. - No gross lesions in the second portion of the duodenum. - No specimens collected. Recommendations : - Discharge patient to home. - Resume previous diet. - Continue present medications. My findings are described in the full procedure note, which is enclosed. If I can be of further assistance, please feel free to contact me at . Sincerely, Saman Gaming, 05/27/2022 3:26:55 PM This report has been signed electronically.
--- NOTE | 2022-05-27 16:27 | PN_ITS ---
Subjective Subjective Patient is a lot more alert and awake today. She had multiple bowel movements overnight. She knows where she is. She knows the year. She knows who the president is. She recognizes all her family members. Objective Data Objective Data Vital Signs: Vital Signs Temp Pulse Resp BP Pulse Ox O2 Del Method O2 Flow Rate 98.5 F 53 L 16 132/33 H 96 Room Air 3 05/27/22 15:45 05/27/22 15:45 05/27/22 15:45 05/27/22 15:45 05/27/22 15:45 05/27/22 15:45 05/27/22 15:27 Oxygen Flow Rate (L/min) 3 Oxygen Delivery Method Room Air Weight: 143 lb 8.335 oz Body Mass Index (BMI) 24.0 Intake & Output: Intake and Output for Last 24 Hours 05/25/22 05/26/22 05/27/22 23:59 23:59 23:59 Intake Total 2965 / 2965 3378.33 / 3378.33 Output Total 1650 / 1650 1150 / 1150 Balance 1315 / 1315 2228.33 / 2228.33 Lab / Micro Data Result Diagrams: 05/27/22 04:03 05/27/22 04:03 Labs: Laboratory Results - last 24 hr 05/27/22 04:03: Sodium 143, Potassium 3.8, Chloride 112 H, Carbon Dioxide 26.0, Anion Gap 5, BUN 32 H, Creatinine 1.31 H, Estim Creat Clear Calc 32.53, Est GFR (MDRD) Af Amer 51 L, Est GFR (MDRD) Non-Af 42 L, BUN/Creatinine Ratio 24.4 H, Glucose 248 H, Calcium 8.7, Magnesium 2.3, Total Bilirubin 0.70, Direct Bilirubin 0.25, AST 27, ALT 23, Alkaline Phosphatase 71, Total Protein 5.6 L, Albumin 2.5 L, Globulin 3.1 05/27/22 04:03: WBC 5.2, RBC 2.78 L, Hgb 7.4 L, Hct 23.9 L, MCV 86.0, MCH 26.6 L , MCHC 31.0 L, RDW Std Deviation 50.5 H, RDW Coeff of [place] 16.1 H, Plt Count 64 L , MPV 11.4, Immature Gran % (Auto) 0.200, Neut % (Auto) 64.9, Lymph % (Auto) 20.2, [place] % (Auto) 9.3, Eos % (Auto) 4.8, Baso % (Auto) 0.6, Absolute Neuts (auto) 3.4, Absolute Lymphs (auto) 1.04, Nucleated RBC % 0, Platelet Estimate MOD DEC, Anisocytosis 1+ 05/27/22 04:03: PT 16.9 H, INR 1.4 05/27/22 04:03: Ammonia 38.0 H 05/27/22 04:03: Iron 37 L, TIBC 290, Iron Saturation 12.8 L Micro: Microbiology 05/26/22 08:00 Urine Catheter - Edwards Urine Culture - Preliminary Presumptive E. coli Rhythm Strip Rhythm Strip: Sinus Rhythm Rate: 69 Ectopy: None Physical Exam Narrative GENERAL: Obtunded but reacts to sternal rub HEENT: Atraumatic; EYES; Anicteric, Normal Conjunctiva NECK; supple, normal thyroid, RESPIRATORY: Diminished to auscultation CARDIOVASCULAR: Regular S1 S2, GI: soft, normoactive bowel sounds, : No Renal angle tenderness; EXTREMITIES: No edema, no clubbing, MUSCULOSKELETAL: no muscle wasting NEURO: Encephalopathic SKIN: No Rash PSYCH; unable to assess Assessment & Plan Assessment/Plan (1) Acute hepatic encephalopathy: PLAN: Her ammonia level is down from 158-38 with the use of lactulose and MiraLAX. She will need to continue that every 6 hours. (2) Cirrhosis: PLAN: She has decompensated cirrhosis secondary to anemia (unknown cause at this time) and worsening encephalopathy. She did not have any varices or signs of bleeding in her upper GI tract. Her family does not want her to undergo colonoscopy at this time. They said that she did have a work-up for previous anemia and nothing was seen. Currently at this time her meld is 14. (3) Hyperammonemia: PLAN: She will continue the lactulose and MiraLAX plus Xifaxan 550 mg twice a day. I gave the family documentation on a lower protein diet and things for her to avoid along with taking her medicines for hyperammonemia. She will eat frequent small meals that are low protein and try to avoid any renal failure along with taking supplements of magnesium, vitamin D, B12 and folic acid. The more time she spends in metabolic acidosis secondary to renal failure or diarrhea at the more likely she is to develop worsening hyperammonia anemia. (4) SKY (acute kidney injury): PLAN: She is on midodrine, octreotide and albumin for hepatorenal syndrome type II versus acute kidney injury from ATN or prerenal azotemia. I would recommend to continue midodrine, octreotide and albumin for 24 more hours then stop. Charges/Coding Visit Charges Inpatient E&M: 99511 Subs Hosp L3
[2022-05-27] MEDS: cloNIDine HCl 0.1 MG Tablet PO ×2 (17:54→19:10)
[2022-05-27] MEDS: Nystatin Powder 15gm Bottle 1 APPLIC TOPICAL (20:54)
[2022-05-27] MEDS: Atorvastatin Calcium 40 MG Tablet PO (20:56)
[2022-05-27] MEDS: 0.9% Saline Lock 10 ML Syringe IV (20:56)
[2022-05-28 02:00] VITALS: BP 131/44; PULSE 68; RESP 18; TEMP 36.9; O2SAT 100
[2022-05-28] MEDS: Lactulose 20 GM/30 ML UDC PO ×6 (02:04→22:47)
[2022-05-28] MEDS: 0.9% Saline Lock 10 ML Syringe IV (02:04)
[2022-05-28 06:04] LABS: International Normalized Ratio 1.6; Prothrombin Time (Protime)PT. 18.4 SECONDS (11.7-14.9)
[2022-05-28] MEDS: 0.9% Normal Saline 1,000 ML 100 ML IV ×2 (06:15→17:56)
[2022-05-28] MEDS: Polyethylene Glycol 3350 17 GM PACKET PO ×4 (06:16→22:48)
[2022-05-28] MEDS: Glycerin/Hypromellose/PEG400 15 ml Bottle 1 DRP EACH EYE ×2 (06:16→22:47)
[2022-05-28 06:24] LABS: AST(SGOT) 30 U/L (15-37); Alanine Aminotransfer ALT/SGPT 28 U/L (13-56); Albumin, Serum 2.5 g/dL (3.2-5.0); Alkaline Phosphatase 73 U/L (45-117); Anion Gap 2 (5-15); BUN 26 mg/dL (7-18); BUN/Creat Ratio 19.8 RATIO (10-20); Bilirubin, Direct 0.16 mg/dL (0.00-0.30); Calcium,Total 8.5 mg/dL (8.5-10.1); Chloride 117 mmol/L (98-107); Creatinine, Serum 1.31 mg/dL (0.55-1.02); EST Glomerular Filtration Rate 42 mL/min (>60); Est Glom Filt Rate - Afr Amer 51 mL/min (>60); Estimated Creatinine Clearance 32.53 ml/min; Globulin 3.1 g/dL (2.2-4.2); Glucose 330 mg/dL (74-106); Potassium 4.4 mmol/L (3.5-5.1); Protein, Total 5.6 g/dL (6.4-8.2); Sodium Level 142 mmol/L (136-145)
[2022-05-28] MEDS: BRIMONIDINE 0.2% 5ML BOTTLE 1 DRP LEFT EYE ×2 (06:30→22:47)
--- NOTE | 2022-05-28 06:39 | PN.CC_ITS ---
Assessment & Plan Assessment/Plan (1) Acute hepatic encephalopathy: PLAN: Plan RECOMMENDATIONS: 1. Continue antimicrobials to complete 7 days of therapy. 2. Continue lactulose and rifaximin as ordered. 3. Continue to monitor H&H. Transfuse if hemoglobin drops below 7 g/dL. 4. Wean supplemental oxygen as tolerated. Encourage incentive spirometer use and mobilize patient as tolerated. 5. Will sign off from a critical care perspective. Please call with any additional questions. IMPRESSIONS: 1. Hepatic encephalopathy Resolved. The patient presented to the hospital after being found unresponsive by family members. Acute CVA was ruled out. The patient's medical history is significant for Núñez cirrhosis, complicated by portal vein thrombosis, splenic vein thrombosis and esophageal varices. The patient was medically managed with NG tube placement and subsequent lactulose administration. Her mentation improved within 24 hours. Her hyperammonemia has resolved. Gastroenterology is following. Ultimately, the patient may require TIPS revision. 2. Probable cystitis Initial urine analysis was concerning for cystitis. The patient has been initiated on appropriate antimicrobials. 3. Acute kidney injury Improving. Likely prerenal in etiology. Continue fluids as ordered. Continue to monitor urine output. No current indication for renal replacement therapy. 4. Acute on chronic anemia The patient has a known history of angiodysplastic lesions in the stomach. This has been treated in the past with APC via endoscopy. Plan to continue to monitor blood counts. Transfuse if hemoglobin drops below 7 g/dL. 5. Anemia/thrombocytopenia/hypertension/diabetes mellitus Complicates care, management, recovery and prognosis. Continue home medications as indicated. This note was generated with [employer] dictation software. It may contain incorrect words, spelling, and punctuation that were not noted in checking the note before signing. Subjective Subjective The patient was seen and examined at the bedside this morning. Events from the last 24 hours have been reviewed. The patient is currently afebrile, hemodynamically stable and maintaining appropriate oxygen saturations on 3 L/min via nasal cannula. The patient underwent upper endoscopy yesterday without any lesions noted. Creatinine remains stable at 1.3. Ammonia stable at 51. The patient is alert and eating breakfast this morning. Objective Data Objective Data The patient's most recent lab work, culture data and imaging studies have all been personally reviewed. Blood and urine cultures are pending. Vital Signs: Vital Signs Temp Pulse Resp BP Pulse Ox O2 Del Method O2 Flow Rate 98.4 F 68 18 131/44 H 100 Nasal Cannula 3 05/28/22 02:00 05/28/22 02:00 05/28/22 02:00 05/28/22 02:00 05/28/22 02:00 05/28/22 02:00 05/28/22 02:00 Oxygen Flow Rate (L/min) 3 Oxygen Delivery Method Nasal Cannula Weight: 146 lb 6.191 oz Body Mass Index (BMI) 24.0 Intake & Output: Intake and Output for Last 24 Hours 05/26/22 05/27/22 05/28/22 23:59 23:59 23:59 Intake Total 2965 / 2965 5504.75 / 5504.75 583.33 / 583.33 Output Total 1650 / 1650 1150 / 1600 850 / 850 Balance 1315 / 1315 4354.75 / 3904.75 -266.67 / -266.67 Lab / Micro Data Attestation: I reviewed the patient's lab results. Result Diagrams: 05/28/22 05:35 05/28/22 05:35 Labs: Laboratory Results - last 24 hr 05/27/22 04:03: Iron 37 L, TIBC 290, Iron Saturation 12.8 L 05/28/22 05:35: Sodium 142, Potassium 4.4, Chloride 117 H, Carbon Dioxide 23.0, Anion Gap 2 L, BUN 26 H, Creatinine 1.31 H, Estim Creat Clear Calc 32.53, Est GFR (MDRD) Af Amer 51 L, Est GFR (MDRD) Non-Af 42 L, BUN/Creatinine Ratio 19.8, Glucose 330 H, Calcium 8.5, Total Bilirubin 0.50, Direct Bilirubin 0.16, AST 30, ALT 28, Alkaline Phosphatase 73, Total Protein 5.6 L, Albumin 2.5 L, Globulin 3.1 05/28/22 05:35: PT 18.4 H, INR 1.6 05/28/22 05:35: Ammonia 51.0 H Micro: Microbiology 05/27/22 18:44 Stool Stool Occult Blood (REBECCA) - Final 05/26/22 08:00 Urine Catheter - Edwards Urine Culture - Preliminary Presumptive E. coli ABG Data ABG results: ABG 05/26/22 08:19 Specimen Type AYAZ VBG pH 7.40 VBG pO2 51 H VBG HCO3 23 VBG Total CO2 24 VBG O2 Sat (Calc) 86 H VBG Base Excess -2 L POC Mix VBG pCO2 Pt Tmp 36.6 L O2 Delivery Device Room Air Radiography Diagnostic Testing: Radiology Impression Brain CT 05/26/22 07:31 IMPRESSION: Mild generalized atrophy. Mild low density bilaterally in the deep white matter. This likely represents small vessel ischemic changes in the deep white matter. ASSESSMENT: ASPECTS ([place] Stroke Program Early CT Score) is 10. Electronically Signed: Fco Chaidez MD at 7:45 EDT , ADDENDUM: 05/26/22 0754 IMPRESSION: Mild generalized atrophy. Mild low density bilaterally in the deep white matter. This likely represents small vessel ischemic changes in the deep white matter. ASSESSMENT: ASPECTS ([place] Stroke Program Early CT Score) is 10. N.B. : The above Results were Read Back by Fco Chaidez MD to MD Acacia, and understanding confirmed on 05/26/2022 07:47:13 (ET). Electronically Signed: Fco Chaidez MD at 7:45 EDT , Cervical Spine CT 05/26/22 07:31 IMPRESSION: Multilevel degenerative changes, as described above. Electronically Signed: Roberto Amor MD at 9:04 EDT , Chest X-Ray 05/26/22 07:31 IMPRESSION: No acute abnormality is seen. Electronically Signed: Roberto Amor MD at 9:20 EDT , KUB X-Ray 05/26/22 09:50 IMPRESSION: The tip of the nasogastric tube is in the body of the stomach. A TIPS catheter is seen in the right upper quadrant. Electronically Signed: Roberto Amor MD at 10:49 EDT , Rhythm Strip Rhythm Strip: Sinus Rhythm Rate: 69 Ectopy: None Physical Exam Const alert and no apparent distress General Appearance: cooperative HEENT normocephalic and head/scalp atraumatic Eyes PERRL, EOMs intact bilaterally and conjunctivae normal Neck supple General: trachea midline Chest inspection of chest normal Resp normal respiratory effort Auscultation: Negative for rales, rhonchi or wheezes Cardio regular rate and regular rhythm GI normal to inspection, nondistended, normoactive bowel sounds Extremity General Extremity: edema; Negative for clubbing Skin no rashes or lesions noted Neuro CN's II-XII intact bilaterally and no focal motor deficits Psych cooperative and affect normal Charges/Coding Visit Charges Inpatient E&M: 52017 Subs Hosp L2
[2022-05-28 07:04] VITALS: O2SAT 98
[2022-05-28 07:16] LABS: Absolute Lymphocyte Count 0.59 X10^3/uL (0.83-4.51); Absolute Neutrophil Count 2.1 X10^3/uL (2.0-7.7); Basophil# 0.02 X10^3/uL; Basophil% 0.6 % (0-1); Eosinophil# 0.21 X10^3/uL; Eosinophils% 6.5 % (0-5); Hematocrit 23.7 % (37-47); Hemoglobin 7.3 g/dL (12.0-15.0); Lymphocyte # 0.59 X10^3/ul (0.83-4.51); Lymphocyte % 18.2 % (19-41); Mean Corp Hgb Conc 30.8 g/dL (32-36); Mean Corpuscular Hgb 27.1 pg (27.0-32.0); Mean Corpuscular Volume 88.1 fL (81-99); Mean Platelet Vol. 11.5 fl (6.2-12.0); Monocyte# 0.29 X10^3/uL; Monocyte% 8.9 % (0-10); NRBC Flagged by Analyzer 0 % (0-5); Neutrophil # 2.13 X10^3/uL (2.7-7.7); Neutrophil % 65.5 % (47-70); POSITIVE COUNT YES; POSITIVE DIFFERENTIAL YES; Platelet Count 52 K/mm3 (150-450); RBC Distribution Width CV 15.9 % (11.6-14.6); RBC Distribution Width SD 50.4 fl (35.1-43.9); Red Blood Count 2.69 M/mm3 (4.2-5.4); White Blood Count 3.3 K/mm3 (4.4-11.0)
[2022-05-28 07:18] LABS: Differential Indicated SCAN CRITERIA MET
--- NOTE | 2022-05-28 07:27 | PN_ITS ---
Subjective Subjective Patient says she feels a little bit better today she felt better yesterday. She said her brain still feels very foggy. She is hungry. She has still been taking lactulose. Objective Data Objective Data Vital Signs: Vital Signs Temp Pulse Resp BP Pulse Ox O2 Del Method O2 Flow Rate 98.4 F 68 18 131/44 H 100 Nasal Cannula 3 05/28/22 02:00 05/28/22 02:00 05/28/22 02:00 05/28/22 02:00 05/28/22 02:00 05/28/22 02:00 05/28/22 02:00 Oxygen Flow Rate (L/min) 3 Oxygen Delivery Method Nasal Cannula Weight: 146 lb 6.191 oz Body Mass Index (BMI) 24.0 Intake & Output: Intake and Output for Last 24 Hours 05/26/22 05/27/22 05/28/22 23:59 23:59 23:59 Intake Total 2965 / 2965 5504.75 / 5504.75 583.33 / 583.33 Output Total 1650 / 1650 1150 / 1600 850 / 850 Balance 1315 / 1315 4354.75 / 3904.75 -266.67 / -266.67 Lab / Micro Data Result Diagrams: 05/28/22 05:35 05/28/22 05:35 Labs: Laboratory Results - last 24 hr 05/27/22 04:03: Iron 37 L, TIBC 290, Iron Saturation 12.8 L 05/28/22 05:35: Sodium 142, Potassium 4.4, Chloride 117 H, Carbon Dioxide 23.0, Anion Gap 2 L, BUN 26 H, Creatinine 1.31 H, Estim Creat Clear Calc 32.53, Est GFR (MDRD) Af Amer 51 L, Est GFR (MDRD) Non-Af 42 L, BUN/Creatinine Ratio 19.8, Glucose 330 H, Calcium 8.5, Total Bilirubin 0.50, Direct Bilirubin 0.16, AST 30, ALT 28, Alkaline Phosphatase 73, Total Protein 5.6 L, Albumin 2.5 L, Globulin 3.1 05/28/22 05:35: PT 18.4 H, INR 1.6 05/28/22 05:35: Ammonia 51.0 H 05/28/22 05:35: WBC 3.3 L, RBC 2.69 L, Hgb 7.3 L, Hct 23.7 L, MCV 88.1, MCH 27.1, MCHC 30.8 L, RDW Std Deviation 50.4 H, RDW Coeff of Jordan 15.9 H, Plt Count 52 L, MPV 11.5, Immature Gran % (Auto) 0.300, Neut % (Auto) 65.5, Lymph % (Auto) 18.2 L, [place] % (Auto) 8.9, Eos % (Auto) 6.5 H, Baso % (Auto) 0.6, Absolute Neuts (auto) 2.1, Absolute Lymphs (auto) 0.59 L, Nucleated RBC % 0 Micro: Microbiology 05/27/22 18:44 Stool Stool Occult Blood (REBECCA) - Final 05/26/22 08:00 Urine Catheter - [facility] Urine Culture - Preliminary Presumptive E. coli Rhythm Strip Rhythm Strip: Sinus Rhythm Rate: 69 Ectopy: None Physical Exam Narrative GENERAL: Obtunded but reacts to sternal rub HEENT: Atraumatic; EYES; Anicteric, Normal Conjunctiva NECK; supple, normal thyroid, RESPIRATORY: Diminished to auscultation CARDIOVASCULAR: Regular S1 S2, GI: soft, normoactive bowel sounds, : No Renal angle tenderness; EXTREMITIES: No edema, no clubbing, MUSCULOSKELETAL: no muscle wasting NEURO: Encephalopathic SKIN: No Rash PSYCH; unable to assess Assessment & Plan Assessment/Plan (1) Cirrhosis: PLAN: Child Ortiz C cirrhosis with a meld of 10-12. Currently decompensated with acute encephalopathy and anemia. Status post TIPS procedure for recurrent ascites and gastro esophageal varices. (2) Acute hepatic encephalopathy: PLAN: Her ammonia level had gone down from 158 to 38 and this morning it is up to 51. She does seem a little bit more disoriented today but is oriented to person, place and time. Recommend to continue lactulose every 6 hours and as she is not having good bowel movements and 17 g MiraLAX and 10 ounces of liquid should be added to each dose of lactulose (3) Hyperammonemia: PLAN: Recommend a low protein diet, Xifaxan 550 twice a day, lactulose 30 g every 6 hours. Patient needs to have TIPS revision in order to prevent reoccurrence. I do not want to put her on neomycin due to the fact that her kidney function is not normal. (4) SKY (acute kidney injury): PLAN: Patient's creatinine is down to 1.31. Not likely hepatorenal syndrome type II and more likely prerenal azotemia or mild ATN. I would DC midodrine, albumin and octreotide. Charges/Coding Visit Charges Inpatient E&M: 37512 Subs Hosp L3
--- NOTE | 2022-05-28 07:34 | PN.HOSP_ITS ---
Subjective Subjective Patient urine cultures so far positive for E. coli sensitivities pending. Patient underwent EGD today prior was found to have normal esophagus normal stomach medium size hiatal hernia and no gross lesions in the second portion of the duodenum. Objective Data Objective Data Vital Signs: Vital Signs Temp Pulse Resp BP Pulse Ox O2 Del Method O2 Flow Rate 98.4 F 68 18 131/44 H 100 Nasal Cannula 3 05/28/22 02:00 05/28/22 02:00 05/28/22 02:00 05/28/22 02:00 05/28/22 02:00 05/28/22 02:00 05/28/22 02:00 Oxygen Flow Rate (L/min) 3 Oxygen Delivery Method Nasal Cannula Weight: 66.4 kg Body Mass Index (BMI) 24.0 Intake & Output: Intake and Output for Last 24 Hours 05/26/22 05/27/22 05/28/22 23:59 23:59 23:59 Intake Total 2965 / 2965 5504.75 / 5504.75 583.33 / 583.33 Output Total 1650 / 1650 1150 / 1600 850 / 850 Balance 1315 / 1315 4354.75 / 3904.75 -266.67 / -266.67 Lab / Micro Data Result Diagrams: 05/28/22 05:35 05/28/22 05:35 Labs: Laboratory Results - last 24 hr 05/27/22 04:03: Iron 37 L, TIBC 290, Iron Saturation 12.8 L 05/28/22 05:35: Sodium 142, Potassium 4.4, Chloride 117 H, Carbon Dioxide 23.0, Anion Gap 2 L, BUN 26 H, Creatinine 1.31 H, Estim Creat Clear Calc 32.53, Est GFR (MDRD) Af Amer 51 L, Est GFR (MDRD) Non-Af 42 L, BUN/Creatinine Ratio 19.8, Glucose 330 H, Calcium 8.5, Total Bilirubin 0.50, Direct Bilirubin 0.16, AST 30, ALT 28, Alkaline Phosphatase 73, Total Protein 5.6 L, Albumin 2.5 L, Globulin 3.1 05/28/22 05:35: PT 18.4 H, INR 1.6 05/28/22 05:35: Ammonia 51.0 H 05/28/22 05:35: WBC 3.3 L, RBC 2.69 L, Hgb 7.3 L, Hct 23.7 L, MCV 88.1, MCH 27.1, MCHC 30.8 L, RDW Std Deviation 50.4 H, RDW Coeff of Jordan 15.9 H, Plt Count 52 L, MPV 11.5, Immature Gran % (Auto) 0.300, Neut % (Auto) 65.5, Lymph % (Auto) 18.2 L, [place] % (Auto) 8.9, Eos % (Auto) 6.5 H, Baso % (Auto) 0.6, Absolute Neuts (auto) 2.1, Absolute Lymphs (auto) 0.59 L, Nucleated RBC % 0 Micro: Microbiology 05/27/22 18:44 Stool Stool Occult Blood (REBECCA) - Final 05/26/22 08:00 Urine Catheter - Edwards Urine Culture - Preliminary Presumptive E. coli Rhythm Strip Rhythm Strip: Sinus Rhythm Rate: 69 Ectopy: None Physical Exam Narrative GENERAL: Obtunded but reacts to sternal rub HEENT: Atraumatic; EYES; Anicteric, Normal Conjunctiva NECK; supple, normal thyroid, RESPIRATORY: Diminished to auscultation CARDIOVASCULAR: Regular S1 S2, GI: soft, normoactive bowel sounds, : No Renal angle tenderness; EXTREMITIES: No edema, no clubbing, MUSCULOSKELETAL: no muscle wasting NEURO: Encephalopathic SKIN: No Rash PSYCH; unable to assess Assessment & Plan Assessment/Plan (1) Acute hepatic encephalopathy: PLAN: Plan Patient is a 72-year-old lady with underlying history of 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 Acute hepatic encephalopathy (Metabolic encephalopathy) ? Possibly for stated by patient underlying UTI. Patient has been admitted to the intensive care unit for close monitoring as part of a management an NG tube was placed lactulose ordered 20 g every 4 hours. Patient response been monitored with serial ammonia levels -05/27/2022;Patient seen level of sensorium markedly improved. Ammonia level down to 38. Plan is for transfer patient from ICU to [facility]. Patient was also seen in consultation by GI Dr. Gaming the day prior recommended addition of polyethy miguelina glycol to her lactulose. Patient was also started on octreotide midodrine and albumin in addition to IV fluids. Continue with monitoring with serial ammonia levels -05/28/2022 patient level of sensorium back to baseline 2. Acute cystitis ? Patient was started on Rocephin from the emergency department did continue plan is either continue with the Rocephin or adjust based on results of urine cultures ? 05/27/2022 urine cultures pending, will continue with current antibiotic therapy pending results of urinalysis ? 05/28/2022 urine cultures positive for E. coli sensitivities reviewed, patient treated appropriately with ceftriaxone 3. 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 Patient is on lactulose, Aldactone and furosemide 4. Hyperkalemia ? Secondary to patient being on potassium sparing diuretics this was held on admission 5. Anemia - Secondary to chronic disorder monitoring H&H and transfuse if patient becomes symptomatic or hemoglobin falls below 7 -05/27/2022 significant drop in patient hemoglobin to 7.4. Patient has history of GI bleed. Consult subsequently placed to GI - Patient underwent EGD today prior was found to have normal esophagus normal stomach medium size hiatal hernia and no gross lesions in the second portion of the duodenum. 6. Thrombocytopenia ? Secondary to chronic liver disease we will monitor 7. Acute kidney injury ? Baseline creatinine from 02/17/2022 was 0.67, was 1.86 on admission. Patient is on both furosemide as well as spironolactone held on admission resuscitated with IV fluid with subsequent monitoring of electrolytes ordered -05/27/2022 this was thought to be secondary to prerenal azotemia patient did receive midodrine octreotide and albumin in addition to IV fluid creatinine down to 1.31 8. Lactic acidosis ? Due to patient's underlying liver disease as well as UTI monitoring with serial lactic acid levels 9. Essential hypertension ? Discontinue with home medications clonidine and labetalol 10. Dyslipidemia -Patient is on statin therapy, continued at home dose 11.History of esophageal varices Patient underwent EGD on 02/11/2022 during her past admission which showed resolution of the varices. She was however noted to have a single bleeding angioplastic lesion that was cauterized 12. 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 Resolved. Patient was apparently managed at [facility] by vascular surgery 13. Diabetes mellitus type 2 ? Apparently managed with diet 14. DVT prophylaxis ? Bilateral SCDs only avoided the use of chemoprophylaxis in view of patient low platelet counts Charges/Coding Visit Charges Inpatient E&M: 52302 Subs Hosp L2
[2022-05-28 07:51] LABS: Platelet Estimate MKD DEC (ADEQ); Red Cell Morphology NORM C+C NORMAL (NORM C&C)
[2022-05-28] MEDS: Famotidine 20 MG Tablet PO (08:51)
[2022-05-28] MEDS: Nystatin Powder 15gm Bottle 1 APPLIC TOPICAL ×2 (08:51→22:47)
[2022-05-28] MEDS: Labetalol 100 MG Tablet PO ×2 (08:51→22:47)
[2022-05-28] MEDS: rifAXIMin 550 MG Tablet PO ×2 (08:52→22:48)
[2022-05-28] MEDS: cloNIDine HCl 0.2 MG Tablet PO ×2 (08:56→22:47)
[2022-05-28 09:00] VITALS: BP 130/46; PULSE 58; RESP 18; TEMP 36.6; O2SAT 94
[2022-05-28] MEDS: Sodium Ferric Gluconat 250 MG in 0.9% Normal Saline 250 ML 135 MG IV (09:28)
--- NOTE | 2022-05-28 09:40 | CASEMGMT ---
LISA SALCIDO Face to Face with patient for initial transition planning/care coordination assessment. RN LOLY introduced self and role at [facility]. Patient lying in bed, alert and oriented. Patient willing to participate in assessment and is able to answer all questions appropriately. Care providers, pharmacy, and demographics verified. Patient wishes to discharge home, denies need for home health at this time, will monitor progress with therapy. Patient states she has no further needs or concerns at this time. CM to follow for discharge planning needs that may arise. PCP: Sarah Specialists: none Preferred Pharmacy: [facility] [employer] [facility] Prescription Benefit: yes Living Will/HPOA: yes, daughter Briseyda TOTHOK: , daughter, son Living Arrangements: Patient lives with in a mobile home with ramp to enter. Patient states she was independent at home. Transportation: DME/HHC: Patient states she has shower chair, raised toilet, walker, nebulizer, pulse ox, and home oxygen through [facility] at 3lpm with portability. Patient denies previous HHC or SNF. Disposition Plan: Patient to discharge home with family support and follow-up plans in place. Will monitor progress with therapy for discharge needs. Arline RANDOLPH, RN, CM
--- NOTE | 2022-05-28 10:39 | PCM.DC.SUM ---
Providers Date of Admission: 05/26/22 Date of Discharge: 05/28/22 Primary Care Physician: Dr. Josiah Smith MD Consultations 05/26/22 11:07 Consult: Principal Developer / Pulmonary Medicine Routine Consulting Provider: [facility] Reason for Consult: ICU management EMERGENT Consult: No Notified: Yes Date Notified: 05/26/22 Time Notified: 10:23 Method of Notification: Verbal 05/26/22 12:29 Consult: Gastroenterology Routine Consulting Provider: [facility] Reason for Consult: Hepatic encephalopathy EMERGENT Consult: No Notified: Yes Date Notified: 05/26/22 Time Notified: 12:29 Method of Notification: Verbal 05/27/22 07:43 Consult: Gastroenterology Routine Consulting Provider: [facility] Reason for Consult: Hepatic encephalopathy, anemia EMERGENT Consult: No Notified: Yes Date Notified: 05/27/22 Time Notified: 07:39 Method of Notification: Text Reason For Visit: HEPATIC ENCEPHALOPATHY Diagnosis Discharge Diagnosis (1) Acute hepatic encephalopathy: Status: Acute Code(s): K72.00 - Acute and subacute hepatic failure without coma Medications at Discharge Home Medications albuterol sulfate 90 mcg/actuation aerosol inhaler 2 puff inhalation Q4H PRN PRN Sob &/Or Wheezing 07/04/16 clonidine HCl 0.1 mg tablet 0.1 mg PO TID blood pressure 11/20/17 clonidine HCl 0.2 mg tablet 0.2 mg PO BID blood pressure 01/06/19 albuterol sulfate 2.5 mg/3 mL (0.083 %) solution for nebulization 2.5 mg inhalation Q4H PRN PRN Sob &/Or Wheezing 01/30/21 furosemide 20 mg tablet 30 mg PO BID water pill 01/30/21 artificial tears solution eye drops 1 drp ophthalmic (eye) TID dry eyes 02/09/22 atorvastatin 40 mg tablet (Lipitor) 40 mg PO QHS cholesterol 02/09/22 labetalol 100 mg tablet 100 mg PO BID Check with primary doctor 05/26/22 lactulose 20 gram/30 mL oral solution 20 g PO .qid Check with primary doctor 05/26/22 spironolactone 25 mg tablet 25 mg PO BID Check with primary doctor 05/26/22 bimatoprost 0.01 % eye drops (Lumigan) 1 drp LEFT EYE DAILY cataract 05/27/22 brimonidine 0.2 % eye drops 1 drp LEFT EYE BID cataract 05/27/22 cefdinir 300 mg capsule 300 mg PO BID #10 caps 05/28/22 polyethylene glycol 3350 17 gram oral powder packet 17 g PO DAILY #60 ea 05/28/22 polysaccharide iron complex 150 mg iron capsule (Ferrex) 150 mg PO DAILYCM #90 caps 05/28/22 rifaximin 550 mg tablet (Xifaxan) 550 mg PO BID #120 tabs 05/28/22 Hospital Course Summary of Care Provided Minutes Spent on Discharge: 35 Hospital Course: Patient is a 72-year-old lady with underlying history of 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 Acute hepatic encephalopathy (Metabolic encephalopathy) ? Possibly for stated by patient underlying UTI. Patient has been admitted to the intensive care unit for close monitoring as part of a management an NG tube was placed lactulose ordered 20 g every 4 hours. Patient response been monitored with serial ammonia levels -05/27/2022;Patient seen level of sensorium markedly improved. Ammonia level down to 38. Plan is for transfer patient from ICU to [facility]. Patient was also seen in consultation by GI Dr. Gaming the day prior recommended addition of polyethylene glycol to her lactulose. Patient was also started on octreotide midodrine and albumin in addition to IV fluids. Continue with monitoring with serial ammonia levels -05/28/2022 patient level of sensorium back to baseline 2. Acute cystitis ? Patient was started on Rocephin from the emergency department did continue plan is either continue with the Rocephin or adjust based on results of urine cultures ? 05/27/2022 urine cultures pending, will continue with current antibiotic therapy pending results of urinalysis ? 05/28/2022 urine cultures positive for E. coli sensitivities reviewed, patient treated appropriately with ceftriaxone 3. 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 Patient is on lactulose, Aldactone and furosemide 4. Hyperkalemia ? Secondary to patient being on potassium sparing diuretics this was held on admission 5. Anemia - Secondary to chronic disorder monitoring H&H and transfuse if patient becomes symptomatic or hemoglobin falls below 7 -05/27/2022 significant drop in patient hemoglobin to 7.4. Patient has history of GI bleed. Consult subsequently placed to GI - Patient underwent EGD today prior was found to have normal esophagus normal stomach medium size hiatal hernia and no gross lesions in the second portion of the duodenum. 6. Thrombocytopenia ? Secondary to chronic liver disease we will monitor 7. Acute kidney injury ? Baseline creatinine from 02/17/2022 was 0.67, was 1.86 on admission. Patient is on both furosemide as well as spironolactone held on admission resuscitated with IV fluid with subsequent monitoring of electrolytes ordered -05/27/2022 this was thought to be secondary to prerenal azotemia patient did receive midodrine octreotide and albumin in addition to IV fluid creatinine down to 1.31 8. Lactic acidosis ? Due to patient's underlying liver disease as well as UTI monitoring with serial lactic acid levels 9. Essential hypertension ? Discontinue with home medications clonidine and labetalol 10. Dyslipidemia -Patient is on statin therapy, continued at home dose 11.History of esophageal varices Patient underwent EGD on 02/11/2022 during her past admission which showed resolution of the varices. She was however noted to have a single bleeding angioplastic lesion that was cauterized 12. 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 Resolved. Patient was apparently managed at [facility] by vascular surgery 13. Diabetes mellitus type 2 ? Apparently managed with diet 14. DVT prophylaxis ? Bilateral SCDs only avoided the use of chemoprophylaxis in view of patient low platelet counts Physical Exam Narrative GENERAL: Cooperative HEENT: Atraumatic; EYES; Anicteric, Normal Conjunctiva NECK; supple, normal thyroid, RESPIRATORY: Diminished to auscultation CARDIOVASCULAR: Regular S1 S2, GI: soft, normoactive bowel sounds, : No Renal angle tenderness; EXTREMITIES: No edema, no clubbing, MUSCULOSKELETAL: no muscle wasting NEURO: Encephalopathic SKIN: No Rash PSYCH; flat affect Weight / BMI Weight Weight: 66.4 kg Body Mass Index (BMI) 24.0 ABG / Lab / Microbiology Data Result Diagrams: 05/28/22 05:35 05/28/22 05:35 Laboratory: Laboratory Results - last 24 hr 05/28/22 05:35: Sodium 142, Potassium 4.4, Chloride 117 H, Carbon Dioxide 23.0, Anion Gap 2 L, BUN 26 H, Creatinine 1.31 H, Estim Creat Clear Calc 32.53, Est GFR (MDRD) Af Amer 51 L, Est GFR (MDRD) Non-Af 42 L, BUN/Creatinine Ratio 19.8, Glucose 330 H, Calcium 8.5, Total Bilirubin 0.50, Direct Bilirubin 0.16, AST 30, ALT 28, Alkaline Phosphatase 73, Total Protein 5.6 L, Albumin 2.5 L, Globulin 3.1 05/28/22 05:35: PT 18.4 H, INR 1.6 05/28/22 05:35: Ammonia 51.0 H 05/28/22 05:35: WBC 3.3 L, RBC 2.69 L, Hgb 7.3 L, Hct 23.7 L, MCV 88.1, MCH 27.1, MCHC 30.8 L, RDW Std Deviation 50.4 H, RDW Coeff of Jordan 15.9 H, Plt Count 52 L, MPV 11.5, Immature Gran % (Auto) 0.300, Neut % (Auto) 65.5, Lymph % (Auto) 18.2 L, [place] % (Auto) 8.9, Eos % (Auto) 6.5 H, Baso % (Auto) 0.6, Absolute Neuts (auto) 2.1, Absolute Lymphs (auto) 0.59 L, Nucleated RBC % 0, Differential Comment , Diff Path Review February, Platelet Estimate MKD DEC, RBC Morphology NORM C+C Microbiology: Microbiology 05/26/22 08:00 Urine Catheter - [facility] Urine Culture - Final Presumptive E. coli 05/27/22 18:44 Stool Stool Occult Blood (REBECCA) - Final D/C Instructions Discharge Diet: No restrictions Discharge Activity: Return to Normal Activity Call your doctor if you observe: Fever of 101 or Higher, Shortness of breath, Fainting spells and Chest pain Meaningful Use Info Meaningful Use Diagnoses (Choose all that apply): None applicable Discharge Plan Admission Admit Date/Time: 05/26/22 09:00 Attending Provider: Lance Davies Primary Care Provider: Josiah Smith Consulting Providers: Jeremie Skinner ; Rojas Lopez ; Monserrat Stein TAKE DOWN SORTER Discharge Orders/Prescriptions Prescriptions: New polyethylene glycol 3350 17 gram Powder In Packet 17 g PO DAILY Qty: 60 0RF polysaccharide iron complex [Ferrex 150] 150 mg iron Capsule 150 mg PO DAILYCM Qty: 90 0RF Xifaxan 550 mg Tablet 550 mg PO BID Qty: 120 0RF cefdinir 300 mg capsule 300 mg PO BID Qty: 10 0RF Continued albuterol sulfate 1 PUFF inhaler 2 puff INHALATION Q4H PRN PRN (Reason: Sob &/Or Wheezing) Label Comments: copd clonidine HCl 0.1 MG tablet 0.1 mg PO TID Rx Instructions: takes at 1300, 1700, and 1800 clonidine HCl 0.2 MG tablet 0.2 mg PO BID Rx Instructions: takes at 0800 and 2200 albuterol sulfate 2.5 MG/3 ML solution for nebulization 2.5 mg INHALATION Q4H PRN PRN (Reason: Sob &/Or Wheezing) furosemide 20 MG tablet 30 mg PO BID atorvastatin [Lipitor] 40 mg Tablet 40 mg PO QHS artificial tears solution Drops 1 drp OPHTHALMIC (EYE) TID spironolactone 25 mg tablet 25 mg PO BID labetalol 100 mg tablet 100 mg PO BID lactulose 20 gram/30 mL solution 20 g PO .qid brimonidine 0.2 % drops 1 drp LEFT EYE BID Label Comments: t1gtt IN THE LEFT EYE TWICE DAILY Lumigan 0.01 % drops 1 drp LEFT EYE DAILY Label Comments: INSTILL 1 DROP IN THE LEFT EYE DAILY Referrals / Follow Up: Josiah Smith MD [Primary Care Provider] - Within 1 Week Saman Gaming DO [Med Staff - Active Staff] - Within 2 Weeks Disposition Disposition (needs filled in before D/C Order can be placed): Home Health Service Charges/Coding Visit Charges Inpatient E&M: 36404 Disch Hosp
[2022-05-28] MEDS: Iron Polysaccharide Complex 150 MG CAPSULE PO (10:53)
--- NOTE | 2022-05-28 11:04 | PCM.DC ---
Discharge Instructions Diet Discharge Diet: No restrictions Activity Discharge Activity: Return to Normal Activity Dressing / Incision Call your doctor if you observe: Fever of 101 or Higher, Shortness of breath, Fainting spells and Chest pain Follow Up Care Test Results: Test results from this visit will be discussed in further detail at your follow-up appointment, if applicable. Discharge Plan Admission Admit Date/Time: 05/26/22 09:00 Attending Provider: Lance Davies Primary Care Provider: Josiah Smith Consulting Providers: Jeremie Skinner ; Rojas Lopez ; Monserrat Stein GOUR[employer]FFEE ATTENDANT Discharge Orders/Prescriptions Prescriptions: New polyethylene glycol 3350 17 gram Powder In Packet 17 g PO DAILY Qty: 60 0RF polysaccharide iron complex [Ferrex 150] 150 mg iron Capsule 150 mg PO DAILYCM Qty: 90 0RF Xifaxan 550 mg Tablet 550 mg PO BID Qty: 120 0RF cefdinir 300 mg capsule 300 mg PO BID Qty: 10 0RF Continued albuterol sulfate 1 PUFF inhaler 2 puff INHALATION Q4H PRN PRN (Reason: Sob &/Or Wheezing) Label Comments: copd clonidine HCl 0.1 MG tablet 0.1 mg PO TID Rx Instructions: takes at 1300, 1700, and 1800 clonidine HCl 0.2 MG tablet 0.2 mg PO BID Rx Instructions: takes at 0800 and 2200 albuterol sulfate 2.5 MG/3 ML solution for nebulization 2.5 mg INHALATION Q4H PRN PRN (Reason: Sob &/Or Wheezing) furosemide 20 MG tablet 30 mg PO BID atorvastatin [Lipitor] 40 mg Tablet 40 mg PO QHS artificial tears solution Drops 1 drp OPHTHALMIC (EYE) TID spironolactone 25 mg tablet 25 mg PO BID labetalol 100 mg tablet 100 mg PO BID lactulose 20 gram/30 mL solution 20 g PO .qid brimonidine 0.2 % drops 1 drp LEFT EYE BID Label Comments: t1gtt IN THE LEFT EYE TWICE DAILY Lumigan 0.01 % drops 1 drp LEFT EYE DAILY Label Comments: INSTILL 1 DROP IN THE LEFT EYE DAILY Referrals / Follow Up: Josiah Smith MD [Primary Care Provider] - Within 1 Week Saman Gaming DO [Med Staff - Active Staff] - Within 2 Weeks Disposition Disposition (needs filled in before D/C Order can be placed): Home Health Service
[2022-05-28 11:13] VITALS: BP 131/38; PULSE 55; RESP 18; TEMP 36.3; O2SAT 94
[2022-05-28] MEDS: Ceftriaxone 1 GM/50 ML BAG IV (11:57)
--- NOTE | 2022-05-28 11:57 | CASEMGMT ---
Discussed pt therapy discussion with OT. Per therapy, pt was nauseated, weak, seeing a cord that was not there. Discussed with patient nurse. RN CM to follow for homegoing services.
--- NOTE | 2022-05-28 12:16 | NURSING ---
1130 Pt states she is not feeling well. Dry heaving, belching, states she is dizzy. VSS. Pt states she is weak. Had a few episodes of hallucinations. States seeing cords on floor and something black flying in room. Pt sitting in chair currently. States she has a headache rates pain at a 3. Will update Dr. Davies on pt changes. Pt alert and oriented x3. Bilat arm strength equal, foot pushes equal, hand grasp equal, Perrla.
[2022-05-28 12:40] LABS: Pathologist Review Reviewed
[2022-05-28] MEDS: Albumin Human 25% (50 mL) 12.5 GM/50 ML IV.SOLN IV (14:34)
[2022-05-28 15:00] VITALS: BP 148/44; PULSE 55; RESP 18; TEMP 36.6; O2SAT 97
[2022-05-28] MEDS: cloNIDine HCl 0.1 MG Tablet PO ×3 (15:04→18:51)
[2022-05-28 20:06] VITALS: BP 167/52; PULSE 77; RESP 16; TEMP 36.6; O2SAT 95
[2022-05-28] MEDS: Atorvastatin Calcium 40 MG Tablet PO (22:47)
[2022-05-28] MEDS: Latanoprost 0.005% 1 Bottle 1 DRP LEFT EYE (22:47)
--- NOTE | 2022-05-29 00:33 | NURSING ---
[facility] stating pt. has been in pain and [facility] doctor did not want pt to have pain medication due to pt having cirrhosis and just been d/c from icu for hepatic encephalopathy. Pt's two daughters came in and were upset their mom was in pain and could not have anything for pain. This RN notified hospitalist of situation and hospitalist called this RN to state he does not want to give any pain medication as well due to pt's code status, medical history, and liver function. Dr. Guidry stated he did not feel comfortable giving pain medication when pt is still a full code and if family wanted a more liberal medication plan, they should change the code status and go with hospice or palliative care. This RN returned to pt room to inform pt of the hospitalists decision and was told to speak with daughter on the phone. Daughter became very angry and yelled You need to do something for my mom. She has been laying in that hospital bed since 11:00 in pain and no one has done anything for her. This RN apologized for the decisions made but educated daughter on why the doctors made the decision not to prescribe pain medication. Daughter then stated Well can't you just give a muscle relaxant or override to give my mom something for pain, this is ridiculous. This RN reeducated daughter again on why the doctors were making the decisions and I would speak to the doctor again.
[2022-05-29 02:00] VITALS: BP 147/43; PULSE 63; RESP 12; TEMP 36.9; O2SAT 99
[2022-05-29] MEDS: Polyethylene Glycol 3350 17 GM PACKET PO ×2 (03:00→05:21)
[2022-05-29] MEDS: Lactulose 20 GM/30 ML UDC PO ×3 (03:00→09:26)
[2022-05-29] MEDS: Acetaminophen 325 MG Tablet 650 MG PO (03:22)
[2022-05-29] MEDS: 0.9% Normal Saline 1,000 ML 100 ML IV ×2 (03:31→09:27)
[2022-05-29] MEDS: Glycerin/Hypromellose/PEG400 15 ml Bottle 1 DRP EACH EYE (05:20)
[2022-05-29 05:53] LABS: International Normalized Ratio 1.5; Prothrombin Time (Protime)PT. 17.5 SECONDS (11.7-14.9)
[2022-05-29 06:20] LABS: AST(SGOT) 26 U/L (15-37); Alanine Aminotransfer ALT/SGPT 31 U/L (13-56); Albumin, Serum 2.6 g/dL (3.2-5.0); Alkaline Phosphatase 83 U/L (45-117); Anion Gap 2 (5-15); BUN 17 mg/dL (7-18); BUN/Creat Ratio 15.5 RATIO (10-20); Bilirubin, Direct 0.17 mg/dL (0.00-0.30); Calcium,Total 8.4 mg/dL (8.5-10.1); Chloride 115 mmol/L (98-107); EST Glomerular Filtration Rate 52 mL/min (>60); Est Glom Filt Rate - Afr Amer 62 mL/min (>60); Estimated Creatinine Clearance 38.75 ml/min; Globulin 3.2 g/dL (2.2-4.2); Glucose 280 mg/dL (74-106); Potassium 4.1 mmol/L (3.5-5.1); Protein, Total 5.8 g/dL (6.4-8.2); Sodium Level 140 mmol/L (136-145)
[2022-05-29 07:10] VITALS: O2SAT 95
--- NOTE | 2022-05-29 07:37 | PN.HOSP_ITS ---
Subjective Subjective Patient anticipated discharge the day prior was discontinued after patient was found to be slightly delirious back to baseline this AM. She is apologetic for her earlier outburst. Plans for patient to be discharged home with home PT and therapy Objective Data Objective Data Vital Signs: Vital Signs Temp Pulse Resp BP Pulse Ox O2 Del Method O2 Flow Rate 98.5 F 63 12 147/43 H 95 Nasal Cannula 3 05/29/22 02:00 05/29/22 02:00 05/29/22 02:00 05/29/22 02:00 05/29/22 07:10 05/29/22 07:10 05/29/22 07:10 Oxygen Flow Rate (L/min) 3 Oxygen Delivery Method Nasal Cannula Weight: 70 kg Body Mass Index (BMI) 24.0 Intake & Output: Intake and Output for Last 24 Hours 05/27/22 05/28/22 05/29/22 23:59 23:59 23:59 Intake Total 5504.75 / 5504.75 2523.75 / 2943.75 1378.33 / 1378.33 Output Total 1150 / 1600 850 / 850 Balance 4354.75 / 3904.75 1673.75 / 2093.75 1378.33 / 1378.33 Lab / Micro Data Result Diagrams: 05/28/22 05:35 05/29/22 05:35 Labs: Laboratory Results - last 24 hr 05/28/22 05:35: Differential Comment , Diff Path Review Reviewed, Platelet Estimate MKD DEC, RBC Morphology NORM C+C 05/29/22 05:35: Sodium 140, Potassium 4.1, Chloride 115 H, Carbon Dioxide 23.0, Anion Gap 2 L, BUN 17, Creatinine 1.10 H, Estim Creat Clear Calc 38.75, Est GFR (MDRD) Af Amer 62, Est GFR (MDRD) Non-Af 52 L, BUN/Creatinine Ratio 15.5, Glucose 280 H, Calcium 8.4 L, Total Bilirubin 0.40, Direct Bilirubin 0.17, AST 26, ALT 31, Alkaline Phosphatase 83, Total Protein 5.8 L, Albumin 2.6 L, Globulin 3.2 05/29/22 05:35: PT 17.5 H, INR 1.5 05/29/22 05:35: Ammonia 73.0 H Micro: Microbiology 05/26/22 09:14 Blood Culture (Wb) - Anticubital Left Blood Culture - Preliminary No growth in 48 hours. 05/26/22 09:23 Blood Culture (Wb) - Anticubital Right Blood Culture - Preliminary No growth in 48 hours. 05/26/22 08:00 Urine Catheter - Edwards Urine Culture - Final Presumptive E. coli 05/27/22 18:44 Stool Stool Occult Blood (REBECCA) - Final Rhythm Strip Rhythm Strip: Sinus Rhythm Rate: 69 Ectopy: None Physical Exam Narrative GENERAL: Cooperative HEENT: Atraumatic; EYES; Anicteric, Normal Conjunctiva NECK; supple, normal thyroid, RESPIRATORY: Diminished to auscultation CARDIOVASCULAR: Regular S1 S2, GI: soft, normoactive bowel sounds, : No Renal angle tenderness; EXTREMITIES: No edema, no clubbing, MUSCULOSKELETAL: no muscle wasting NEURO: Encephalopathic SKIN: No Rash PSYCH; flat affect Assessment & Plan Assessment/Plan (1) Acute hepatic encephalopathy: PLAN: Plan Patient is a 72-year-old lady with underlying history of 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 Acute hepatic encephalopathy (Metabolic encephalopathy) ? Possibly for stated by patient underlying UTI. Patient has been admitted to the intensive care unit for close monitoring as part of a management an NG tube was placed lactulose ordered 20 g every 4 hours. Patient response been ciera tored with serial ammonia levels -05/27/2022;Patient seen level of sensorium markedly improved. Ammonia level down to 38. Plan is for transfer patient from ICU to [facility]. Patient was also seen in consultation by GI Dr. Gaming the day prior recommended addition of polyethylene glycol to her lactulose. Patient was also started on octreotide midodrine and albumin in addition to IV fluids. Continue with monitoring with serial ammonia levels -05/28/2022 patient level of sensorium back to baseline 2. Acute cystitis ? Patient was started on Rocephin from the emergency department did continue moni n is either continue with the Rocephin or adjust based on results of urine cultures ? 05/27/2022 urine cultures pending, will continue with current antibiotic therapy pending results of urinalysis ? 05/28/2022 urine cultures positive for E. coli sensitivities reviewed, patient treated appropriately with ceftriaxone 3. 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 Patient is on lactulose, Aldactone and furosemide 4. Hyperkalemia ? Secondary to patient being on potassium sparing diuretics this was held on admission 5. Anemia - Secondary to chronic disorder monitoring H&H and transfuse if patient becomes symptomatic or hemoglobin falls below 7 -05/27/2022 significant drop in patient hemoglobin to 7.4. Patient has history of GI bleed. Consult subsequently placed to GI - Patient underwent EGD today prior was found to have normal esophagus normal stomach medium size hiatal hernia and no gross lesions in the second portion of the duodenum. 6. Thrombocytopenia ? Secondary to chronic liver disease we will monitor 7. Acute kidney injury ? Baseline creatinine from 02/17/2022 was 0.67, was 1.86 on admission. Patient is on both furosemide as well as spironolactone held on admission resuscitated with IV fluid with subsequent monitoring of electrolytes ordered -05/27/2022 this was thought to be secondary to prerenal azotemia patient did receive midodrine octreotide and albumin in addition to IV fluid creatinine down to 1.31 8. Lactic acidosis ? Due to patient's underlying liver disease as well as UTI monitoring with serial lactic acid levels 9. Essential hypertension ? Discontinue with home medications clonidine and labetalol 10. Dyslipidemia -Patient is on statin therapy, continued at home dose 11.History of esophageal varices Patient underwent EGD on 02/11/2022 during her past admission which showed resolution of the varices. She was however noted to have a single bleeding angioplastic lesion that was cauterized 12. 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 Resolved. Patient was apparently managed at [facility] by vascular surgery 13. Diabetes mellitus type 2 ? Apparently managed with diet 14. DVT prophylaxis ? Bilateral SCDs only avoided the use of chemoprophylaxis in view of patient low platelet counts Charges/Coding Visit Charges Inpatient E&M: 19598 Subs Hosp L2
[2022-05-29 08:06] VITALS: O2SAT 99
[2022-05-29 08:30] VITALS: BP 144/43; PULSE 58; RESP 18; TEMP 36.7; O2SAT 100
[2022-05-29 08:41] VITALS: O2SAT 94
[2022-05-29] MEDS: Iron Polysaccharide Complex 150 MG CAPSULE PO (08:51)
[2022-05-29] MEDS: cloNIDine HCl 0.2 MG Tablet PO (08:51)
[2022-05-29] MEDS: BRIMONIDINE 0.2% 5ML BOTTLE 1 DRP LEFT EYE (09:25)
[2022-05-29] MEDS: Ceftriaxone 1 GM/50 ML BAG IV (09:25)
[2022-05-29] MEDS: Nystatin Powder 15gm Bottle 1 APPLIC TOPICAL (09:26)
[2022-05-29] MEDS: Labetalol 100 MG Tablet PO (09:27)
[2022-05-29] MEDS: rifAXIMin 550 MG Tablet PO (09:32)
--- NOTE | 2022-05-29 09:53 | CASEMGMT ---
Addendum entered by Earnestine Blackman 05/29/22 10:20: Received tc back from Snehal at [facility], they are able to accept pt for SOC on Thursday. Pt notified. Original Note: LISA CM in to pt room, pt agreeable to [facility] services. Patient was provided a list of [facility] providers including quality and resource use data and consistent with the patient?s preferred geographic region, medical needs, and insurance network. The patient?s preferred provider is [facility]. TC to Snehal at [facility], referral made. Will await acceptance.
[2022-05-29 12:22] VITALS: BP 132/59; PULSE 66; RESP 18; TEMP 36.8; O2SAT 100
--- NOTE | 2022-05-29 17:04 | PN_ITS ---
Subjective Subjective Patient is doing a lot better today. She is less encephalopathic. She is tolerating a normal diet. She is okay with the low protein diet which would avoid most meats and allow for other protein supplements. Objective Data Objective Data Vital Signs: Vital Signs Temp Pulse Resp BP Pulse Ox O2 Del Method O2 Flow Rate 98.2 F 66 18 132/59 H 100 Nasal Cannula 2 05/29/22 12:22 05/29/22 12:22 05/29/22 12:22 05/29/22 12:22 05/29/22 12:22 05/29/22 12:22 05/29/22 08:41 Oxygen Flow Rate (L/min) 2 Oxygen Delivery Method Nasal Cannula Weight: 154 lb 5.177 oz Body Mass Index (BMI) 24.0 Intake & Output: Intake and Output for Last 24 Hours 05/27/22 05/28/22 05/29/22 23:59 23:59 23:59 Intake Total 5504.75 / 5504.75 2523.75 / 2943.75 2566.66 / 2566.66 Output Total 1150 / 1600 850 / 850 Balance 4354.75 / 3904.75 1673.75 / 2093.75 2566.66 / 2566.66 Lab / Micro Data Result Diagrams: 05/28/22 05:35 05/29/22 05:35 Labs: Laboratory Results - last 24 hr 05/29/22 05:35: Sodium 140, Potassium 4.1, Chloride 115 H, Carbon Dioxide 23.0, Anion Gap 2 L, BUN 17, Creatinine 1.10 H, Estim Creat Clear Calc 38.75, Est GFR (MDRD) Af Amer 62, Est GFR (MDRD) Non-Af 52 L, BUN/Creatinine Ratio 15.5, Gluco se 280 H, Calcium 8.4 L, Total Bilirubin 0.40, Direct Bilirubin 0.17, AST 26, ALT 31, Alkaline Phosphatase 83, Total Protein 5.8 L, Albumin 2.6 L, Globulin 3.2 05/29/22 05:35: PT 17.5 H, INR 1.5 05/29/22 05:35: Ammonia 73.0 H Micro: Microbiology 05/26/22 09:14 Blood Culture (Wb) - Anticubital Left Blood Culture - Preliminary No growth in 48 hours. 05/26/22 09:23 Blood Culture (Wb) - Anticubital Right Blood Culture - Prelim inary No growth in 48 hours. 05/26/22 08:00 Urine Catheter - Edwards Urine Culture - Final Presumptive E. coli 05/27/22 18:44 Stool Stool Occult Blood (REBECCA) - Final Rhythm Strip Rhythm Strip: Sinus Rhythm Rate: 69 Ectopy: None Physical Exam Narrative GENERAL: Cooperative HEENT: Atraumatic; EYES; Anicteric, Normal Conjunctiva NECK; supple, normal thyroid, RESPIRATORY: Diminished to auscultation CARDIOVASCULAR: Regular S1 S2, GI: soft, normoactive bowel sounds, : No Renal angle tenderness; EXTREMITIES: No edema, no clubbing, MUSCULOSKELETAL: no muscle wasting NEURO: Encephalopathic SKIN: No Rash PSYCH; flat affect Assessment & Plan Assessment/Plan (1) Cirrhosis: PLAN: Decompensated cirrhosis with a meld of 14. Patient will need to follow-up with interventional radiologist for TIPS revision. (2) Acute hepatic encephalopathy: PLAN: Acute hepatic encephalopathy likely secondary to noncompliance. Patient is on her medicine and specifically lactulose plus MiraLAX every 6 hours (3) Hyperammonemia: PLAN: Ammonia level is back to 45. She has not shown any signs of encephalopathy at this time. Continue Xifaxan p.o. twice daily and lactulose every 6 hours (4) SKY (acute kidney injury): PLAN: Acute kidney injury resolved secondary to prerenal azotemia. Midodrine can be stopped as she does not need to take that as an outpatient. Also albumin can be stopped and octreotide. Charges/Coding Visit Charges Inpatient E&M: 95501 Subs Hosp L3
--- NOTE | 2022-05-30 10:46 | CASEMGMT ---
Social Work Pt has a Nanny/Household Manager at [facility], Skye Gillette [phone]. SW faxed discharge instructions and placed call leaving information of discharge with Skye on . SAVANA Clemens
== END 2022-05-29 14:49 | disposition home health service (06) | DRG 441 ==
LOC: ED 09:02 → ICU 12:01 → MS3 05-27 16:08
PROVIDERS: Internal Medicine Critical Care Medicine; Internal Medicine Gastroenterology; Admitting Provider Internal Medicine; Emergency Provider Emergency Medicine; PCP Family Medicine; Visit Provider Internal Medicine
PROC: 0DJ08ZZ Inspection of Upper Intestinal Tract, Via Natural or Artificial Opening Endoscopic (ICD-10-PCS; CPT 43235; principal; 2022-05-27 16:10)
DX: K72.00 Acute and subacute hepatic failure without coma (principal); G93.41 Metabolic encephalopathy; E72.20 Disorder of urea cycle metabolism, unspecified; R18.8 Other ascites; N17.9 Acute kidney failure, unspecified; E87.2 Acidosis; N30.00 Acute cystitis without hematuria; K72.90 Hepatic failure, unspecified without coma; E11.39 Type 2 diabetes mellitus with other diabetic ophthalmic complication; K74.60 Unspecified cirrhosis of liver; J44.9 Chronic obstructive pulmonary disease, unspecified; D69.6 Thrombocytopenia, unspecified; D63.1 Anemia in chronic kidney disease; K76.0 Fatty (change of) liver, not elsewhere classified; E78.5 Hyperlipidemia, unspecified; E87.5 Hyperkalemia; I10 Essential (primary) hypertension; K44.9 Diaphragmatic hernia without obstruction or gangrene; H40.9 Unspecified glaucoma; Z66 Do not resuscitate; Z79.1 Long term (current) use of non-steroidal anti-inflammatories (NSAID); Z51.5 Encounter for palliative care; R74.02 Elevation of levels of lactic acid dehydrogenase [LDH]; Z87.891 Personal history of nicotine dependence; B96.20 Unspecified Escherichia coli [E. coli] as the cause of diseases classified elsewhere
CPT/HCPCS: 36415; 70450; 71045; 72125; 74018; 80048; 80076; 81001; 82140; 82274; 82803; 83540; 83550; 83605; 83735; 84484; 85025; 85610; 85730; 87040; 87086; 87088; 87186; 93005; 97162; 97166; 97530; 97535; 97802; 97803; 99285; J7030; J7040; J7050; P9047; A4216; J2405; J2916

== ENCOUNTER 2022-07-18 09:28 | Inpatient (IN) | payer MEDICARE, MEDICAID, SELFPAY ==
[2022-07-18] VITALS (8 sets, daily range): BP systolic 167–187; BP diastolic 47–151; PULSE 69–85; RESP 16–20; TEMP 36.6–37.2; O2SAT 100; BMI 27.7; BMI 29.7
--- NOTE | 2022-07-18 10:09 | CT_ITS ---
STUDY: CT BRAIN WITHOUT CONTRAST REASON FOR EXAM: Female, 72 years old. Mental status changes. RADIATION DOSAGE (If Supplied By Facility): CTDIvol = ( 44.99 ) mGy, DLP = ( 1049.20 ) mGycm TECHNIQUE: Transaxial CT imaging of the brain was performed without administration of intravenous contrast material. Individualized dose optimization techniques were used for this CT. COMPARISON: Comparison is made with prior examination dated 05/26/2022. FINDINGS: Normal soft tissue structures. Normal calvarium. There is mild cerebral atrophy with widening of the extra-axial spaces and ventricular dilatation. Normal white matter tracts of the cerebral hemispheres. Normal basal ganglia and thalami. Normal brainstem. Normal cerebellum. There is no intracranial hemorrhage. There are no findings of an acute ischemic infarction. Atherosclerotic calcification of the cavernous portions of the internal carotid arteries and vertebral arteries. Normal visualized paranasal sinuses. CT/Brain/Head without Contrast IMPRESSION: Chronic involutional changes of the brain. Electronically Signed: Roberto Amor MD at 11:02 EDT ,
--- NOTE | 2022-07-18 10:11 | EX.ED.DYSGE1 ---
HPI History of Present Illness Chief Complaint: Alt LOC Informant: patient and spouse/S.O. Onset/Context/Timing Onset: Days Context: Gradual Onset Timing: Continuous Current Severity: Mild Maximum Severity: Mild Narrative Narrative: 72-year-old female history of COPD for which she is on 3 L of oxygen all the time., Liver cirrhosis and diabetes. No recent hospitalization. states she has not been taking her lactulose as much recently. As she had constipation and decreasing mental status since yesterday. No falls or trauma. No fever. Mild nausea and vomiting when she takes the lactulose. She has had constipation last 3 to 4 days. No fever. No falls or head trauma. No chest pain. Patient is very limited informant and seems confused. 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 Thrombocytopenia Home Medications albuterol sulfate 90 mcg/actuation aerosol inhaler 2 puff inhalation Q4H PRN PRN Sob &/Or Wheezing 07/04/16 [History Last Taken 10/16/16] clonidine HCl 0.1 mg tablet 0.1 mg PO TID blood pressure 11/20/17 [History Last Taken 02/08/22] clonidine HCl 0.2 mg tablet 0.2 mg PO BID blood pressure 01/06/19 [History Last Taken 02/09/22 08:00] albuterol sulfate 2.5 mg/3 mL (0.083 %) solution for nebulization 2.5 mg inhalation Q4H PRN PRN Sob &/Or Wheezing 01/30/21 [History Last Taken Unknown] furosemide 20 mg tablet 20 mg PO BID water pill 01/30/21 [History Last Taken 02/09/22 08:00] artificial tears solution eye drops 1 drp ophthalmic (eye) TID dry eyes 02/09/22 [History Last Taken 02/08/22] atorvastatin 40 mg tablet (Lipitor) 40 mg PO QHS cholesterol 02/09/22 [History Last Taken 02/08/22] labetalol 100 mg tablet 100 mg PO BID Check with primary doctor 05/26/22 [History Last Taken Unknown] lactulose 20 gram/30 mL oral solution 20 g PO BID Check with primary doctor 05/26/22 [History Last Taken Unknown] spironolactone 25 mg tablet 25 mg PO BID Check with primary doctor 05/26/22 [History Last Taken Unknown] bimatoprost 0.01 % eye drops (Lumigan) 1 drp LEFT EYE DAILY cataract 05/27/22 [History Last Taken Unknown] brimonidine 0.2 % eye drops 1 drp LEFT EYE BID cataract 05/27/22 [History Last Taken Unknown] cefdinir 300 mg capsule 300 mg PO BID #10 caps 05/28/22 [Rx Last Taken Unknown] polyethylene glycol 3350 17 gram oral powder packet 17 g PO DAILY #60 ea 05/28/22 [Rx Last Taken Unknown] polysaccharide iron complex 150 mg iron capsule (Ferrex) 150 mg PO DAILYCM #90 caps 05/28/22 [Rx Last Taken Unknown] rifaximin 550 mg tablet (Xifaxan) 550 mg PO BID #120 tabs 05/28/22 [Rx Last Taken Unknown] potassium chloride 20 mEq tablet,extended release(part/cryst) 20 meq PO DAILY 07/18/22 [History Last Taken Unknown] ramipril 5 mg capsule 5 mg PO QHS 07/18/22 [History Last Taken Unknown] torsemide 20 mg tablet 40 mg PO DAILY 07/18/22 [History Last Taken Unknown] Allergy/AdvReac Type Severity Reaction Status Date / Time suture Allergy Mild rash/ Verified 07/18/22 09:29 wound dehisence amoxicillin Allergy Unknown Verified 07/18/22 09:29 azithromycin Allergy Shortness Verified 07/18/22 09:29 of breath celecoxib [From Celebrex] Allergy Other Verified 07/18/22 09:29 ciprofloxacin HCl Allergy Shortness Verified 07/18/22 09:29 [From Cipro] of breath cortisone Allergy Swelling Verified 07/18/22 09:29 doxycycline Allergy Shortness Verified 07/18/22 09:29 of breath erythromycin base Allergy Unknown Verified 07/18/22 09:29 fexofenadine [From Ashlee] Allergy Unknown Verified 07/18/22 09:29 ibuprofen Allergy Shortness Verified 07/18/22 09:29 of breath Iodinated Contrast Media Allergy Shortness Verified 07/18/22 09:29 [DYEE] of breath iodine Allergy Shortness Verified 07/18/22 09:29 of breath levofloxacin [From Levaquin] Allergy Shortness Verified 07/18/22 09:29 of breath lorazepam [From Ativan] Allergy Shortness Verified 07/18/22 09:29 of breath nitrofurantoin Allergy Shortness Verified 07/18/22 09:29 macrocrystalline of breath [From Macrobid] Penicillins Allergy Shortness Verified 07/18/22 09:29 of breath rofecoxib [From Vioxx] Allergy Unknown Verified 07/18/22 09:29 Sulfa (Sulfonamide Allergy Shortness Verified 07/18/22 09:29 Antibiotics) of breath sulfamethoxazole Allergy Shortness Verified 07/18/22 09:29 [From Bactrim] of breath trimethoprim [From Bactrim] Allergy Shortness Verified 07/18/22 09:29 of breath amlodipine [From Norvasc] AdvReac Upset Verified 07/18/22 09:29 Stomach MISC BP MED Allergy Shortness Uncoded 07/18/22 09:29 of breath Family History Mother Heart disease Brother Heart disease Surgical History History of bilateral salpingo-oophorectomy History of laparoscopic cholecystectomy History of oral surgery S/P TIPS (transjugular intrahepatic portosystemic shunt) Social History Smoking Status: Former smoker alcohol intake: never substance use type: does not use ROS ROS ED ROS Narrative Constipation. Mental status changes. Limited nausea and vomiting. Review of Systems ROS Unobtainable: Denies due to encephalopathy Constitutional Constitutional ED: Denies chills or fever(s) Eyes Eyes: Denies blurry vision ENT ENT ED: Denies ear pain Cardiovascular Cardiovascular: Denies chest pain Respiratory/Chest Respiratory/Chest: Denies cough Gastrointestinal Gastrointestinal: Reports abdominal pain, constipation, nausea and vomiting; Denies diarrhea or melena Genitourinary Genitourinary ED: Denies dysuria or hematuria Musculoskeletal Musculoskeletal: Denies arthralgias Integumentary Denies abscess Neurologic Neurologic: Denies headache(s) Psychiatric Psychiatric: Denies anxiety Endocrine Endocrinology: Denies cold intolerance Hematologic/Lymphatic Hematologic/Lymphatic: Reports none Allergic/Immunologic Allergic/Immunologic ED: Denies mouth swelling, tongue swelling or urticaria EXAM Physical Exam Narrative Exam Narrative: 72-year-old female no acute distress. Vital signs stable afebrile. Pulse ox high percent on 3 L which is her normal home O2. No hypoxia with oxygen. H EENT exam unremarkable atraumatic. Left eye the pupil is irregular from prior eye surgery. Neck nontender no meningismus. No lymphadenopathy. Lungs are clear equal symmetrical. Heart regular rhythm rate about 70 no murmur. Chest were nontender. Abdomen soft nontender. Pelvic girdle intact. Extremities nontender no edema. She will not lift her left arm or either leg. 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 There is no deformities. Back nontender. Neurologically she will open her eyes. She really answers few if any questions. She is a decreased mental status. Const Vital Signs: 07/18/22 09:31 07/18/22 11:27 Temperature 97.8 F Temperature Source Temporal Pulse Rate 69 79 Respiratory Rate 16 20 H Blood Pressure 177/151 H 167/70 H Blood Pressure Mean 159 102 Pulse Ox 100 100 Oxygen Delivery Method Nasal Cannula Room Air Oxygen Flow Rate (L/min) 3 Positive well nourished and well developed; Negative for obese, cachectic, contractures or unkempt General Appearance ED: well developed and NAD; Negative for unkempt, cachectic, contractures, cyanotic or diaphoretic Nutritional Appearance: Negative for cachectic or obese HEENT Reports moist mucous membranes Negative for trauma or tenderness Eyes EOMs intact bilaterally; Negative for PERRL General Eye ED: Negative for pale conjunctiva or scleral icterus Neck no lymphadenopathy, supple and no JVD General: Negative for tenderness Chest Wall inspection of chest normal and palpation of chest normal Resp normal respiratory effort and clear to auscultation bilaterally Effort and Inspection: Negative for retractions Auscultation: Negative for rales, rhonchi or wheezes Cardio regular rate, regular rhythm, S1 normal heart sound and S2 normal heart sound GI normal to inspection, nondistended, normoactive bowel sounds, non-tender, non-distended and no masses Inspection: Negative for abdominal distention Auscultation: normoactive bowel sounds Palpation: soft; Negative for tender, guarding, mass or rebound tenderness present Back/Spine no CVA tenderness General Back: Negative for CVA tenderness Cervical Spine: Negative for cervical spine tenderness Thoracic Spine / Upper Back: Negative for thoracic spinal tenderness Lumbar Spine / Lower Back: Negative for lumbar spinal tenderness Extremity normal to inspection General Extremety ED: Negative for edema or tenderness General Extremity: Negative for edema Neuro No oriented x3 Sensorium / Orientation: orientation impaired and lethargic; Negative for alert or stuporous Motor Exam: Negative for strength 5/5 throughout Psych Negative for mental status grossly normal Appearance: Negative for unkempt Attitude: No agitated Mood & Affect: Negative for anxious or tearful Skin no rashes or lesions noted and no wounds Lesions: No lesion noted Rashes: No rashes noted Trauma: Negative for abrasion Wounds: Negative for wounds noted MDM MDM MDM Narrative Medical decision making narrative: 72-year-old decreased mental status a history of liver cirrhosis and has been taking her lactulose as prescribed. Consider hyperammonemia versus infection or other etiologies. CAT scan labs to be obtained. Most likely the patient will need admission. Urinalysis negative. Repeat exam unchanged at 11:58 PM. However test results with her I believe daughter at bedside. She will be admitted. I have the hospitalist on page. Lab Data Attestation: I reviewed the patient's lab results. Lab results narrative: CBC shows no white count 6.4. H&H 10.3 and 32.3. Platelets are low at 84,000. Electrolytes show a gap of 5 BUN and creatinine 36 and 1.41. Ammonia level elevated 122. Labs: Laboratory Results - last 24 hr 07/18/22 07/18/22 07/18/22 09:30 09:30 09:30 WBC 6.4 RBC 3.75 L Hgb 10.3 L Hct 32.3 L MCV 86.1 MCH 27.5 MCHC 31.9 L RDW Std Deviation 51.3 H RDW Coeff of [place] 16.4 H Plt Count 84 L MPV 11.5 Immature Gran % (Auto) 0.200 Neut % (Auto) 60.7 Lymph % (Auto) 19.1 [place] % (Auto) 7.7 Eos % (Auto) 11.0 H Baso % (Auto) 1.3 H Absolute Neuts (auto) 3.9 Absolute Lymphs (auto) 1.21 Nucleated RBC % 0 Sodium 143 Potassium 4.3 Chloride 104 Carbon Dioxide 34.0 H Anion Gap 5 BUN 36 H Creatinine 1.41 H Estim Creat Clear Calc 25.14 Est GFR (MDRD) Af Amer 47 L Est GFR (MDRD) Non-Af 39 L BUN/Creatinine Ratio 25.5 H Glucose 214 H Calcium 10.9 H Total Bilirubin 0.70 AST 24 ALT 24 Alkaline Phosphatase 99 Ammonia 122.0 H Total Protein 7.4 Albumin 3.1 L Globulin 4.3 H Albumin/Globulin Ratio 0.7 L Urine Color Urine Clarity Urine pH Ur Specific [place] Urine Protein Urine Glucose (UA) Urine Ketones Urine Occult Blood Urine Nitrite Urine Bilirubin Urine Urobilinogen Ur Leukocyte Esterase Urine RBC Urine WBC Ur Squamous Epith Cells Urine Bacteria Urine Mucus 07/18/22 11:28 WBC RBC Hgb Hct MCV MCH MCHC RDW Std Deviation RDW Coeff of [place] Plt Count MPV Immature Gran % (Auto) Neut % (Auto) Lymph % (Auto) [place] % (Auto) Eos % (Auto) Baso % (Auto) Absolute Neuts (auto) Absolute Lymphs (auto) Nucleated RBC % Sodium Potassium Chloride Carbon Dioxide Anion Gap BUN Creatinine Estim Creat Clear Calc Est GFR (MDRD) Af Amer Est GFR (MDRD) Non-Af BUN/Creatinine Ratio Glucose Calcium Total Bilirubin AST ALT Alkaline Phosphatase Ammonia Total Protein Albumin Globulin Albumin/Globulin Ratio Urine Color Yellow Urine Clarity Clear Urine pH 7.0 Ur Specific [place] 1.010 Urine Protein 15 H Urine Glucose (UA) Normal Urine Ketones 5 H Urine Occult Blood Negative Urine Nitrite Negative Urine Bilirubin Negative Urine Urobilinogen 1 H Ur Leukocyte Esterase Negative Urine RBC 0 SEEN Urine WBC 0 SEEN Ur Squamous Epith Cells 0 SEEN Urine Bacteria 0 SEEN Urine Mucus 0 SEEN Radiography Chest X-Ray - ED: 1 View, Read by ED Physician, Read by Radiologist, Heart, Lungs, Mediastinum, Bony Structures, No Acute Disease and Chronic Changes Diagnostic Testing: Clinical Impression(s) from Imaging Studies Brain CT 07/18/22 10:09 IMPRESSION: Chronic involutional changes of the brain. Electronically Signed: Roberto Amor MD at 11:02 EDT , Chest X-Ray 07/18/22 10:32 IMPRESSION: No acute abnormality is seen. Electronically Signed: Roberto Amor MD at 11:00 EDT , Chest x-ray, portable, single view interpreted myself and radiologist shows no acute abnormality. Normal cardiac silhouette. Normal mediastinum. CAT scan of the brain is read by the radiologist and reviewed by me shows chronic changes. Discharge Plan Dx/Rx/DC Orders Clinical Impression: Acute confusion, Cirrhosis, Hyperammonemia, Anemia, Dehydration, History of COPD Disposition Disposition: Acute Care Hospital [facility]
[2022-07-18 10:21] LABS: Absolute Lymphocyte Count 1.21 X10^3/uL (0.83-4.51); Absolute Neutrophil Count 3.9 X10^3/uL (2.0-7.7); Basophil# 0.08 X10^3/uL; Basophil% 1.3 % (0-1); Hematocrit 32.3 % (37-47); Hemoglobin 10.3 g/dL (12.0-15.0); Lymphocyte # 1.21 X10^3/ul (0.83-4.51); Lymphocyte % 19.1 % (19-41); Mean Corp Hgb Conc 31.9 g/dL (32-36); Mean Corpuscular Hgb 27.5 pg (27.0-32.0); Mean Corpuscular Volume 86.1 fL (81-99); Mean Platelet Vol. 11.5 fl (6.2-12.0); Monocyte# 0.49 X10^3/uL; Monocyte% 7.7 % (0-10); NRBC Flagged by Analyzer 0 % (0-5); Neutrophil # 3.86 X10^3/uL (2.7-7.7); Neutrophil % 60.7 % (47-70); POSITIVE COUNT YES; Platelet Count 84 K/mm3 (150-450); RBC Distribution Width CV 16.4 % (11.6-14.6); RBC Distribution Width SD 51.3 fl (35.1-43.9); Red Blood Count 3.75 M/mm3 (4.2-5.4); White Blood Count 6.4 K/mm3 (4.4-11.0)
--- NOTE | 2022-07-18 10:32 | RAD_ITS ---
STUDY: X-RAY CHEST REASON FOR EXAM: Female, 72 years old. Mental status changes. TECHNIQUE: Single AP portable view of the chest. COMPARISON: Comparison is made with prior study 05/26/2022. FINDINGS: EKG electrodes are seen. The lungs are clear and expanded. There is no demonstrated pleural abnormality. Normal size heart. Normal mediastinum and ivan. Normal visualized pulmonary arteries. There is atherosclerotic calcification of the aortic arch with tortuosity. There is a levoscoliosis of the thoracic spine. Normal visualized ribs, clavicles, and shoulders. There is no demonstrated abnormality of the visualized soft tissue structures of the upper abdomen. RAD/Chest 1 View (Portable) IMPRESSION: No acute abnormality is seen. Electronically Signed: Roberto Amor MD at 11:00 EDT ,
[2022-07-18 10:41] LABS: ALB/GLOB Ratio 0.7 RATIO (0.9-2.4); AST(SGOT) 24 U/L (15-37); Alanine Aminotransfer ALT/SGPT 24 U/L (13-56); Albumin, Serum 3.1 g/dL (3.2-5.0); Alkaline Phosphatase 99 U/L (45-117); Anion Gap 5 (5-15); BUN 36 mg/dL (7-18); BUN/Creat Ratio 25.5 RATIO (10-20); Calcium,Total 10.9 mg/dL (8.5-10.1); Chloride 104 mmol/L (98-107); Creatinine, Serum 1.41 mg/dL (0.55-1.02); EST Glomerular Filtration Rate 39 mL/min (>60); Est Glom Filt Rate - Afr Amer 47 mL/min (>60); Estimated Creatinine Clearance 25.14 ml/min; Globulin 4.3 g/dL (2.2-4.2); Glucose 214 mg/dL (74-106); Potassium 4.3 mmol/L (3.5-5.1); Protein, Total 7.4 g/dL (6.4-8.2); Sodium Level 143 mmol/L (136-145)
[2022-07-18 11:29] LABS: Bacteria 0 SEEN /hpf (None Seen); Mucous, Urine 0 SEEN /hpf (<or=2+); Red Blood Cells-Urine 0 SEEN /hpf (0-5); Squamous Epithelial Cells - UA 0 SEEN /hpf (5-10); White Blood Cells 0 SEEN /hpf (0-5)
[2022-07-18 11:31] LABS: Color, Urine Yellow (Yellow); Glucose, Dipstick Normal (Normal); Ketone-Dipstick 5 mg/dl (Negative); Leukocyte Esterase-Dipstick Negative /ul (Negative); Nitrite-Dipstick Negative (Negative); Occult Blood-Urine Negative /ul (Negative); Protein-Dipstick 15 mg/dl (Negative); Urine Bilirubin Dipstick Negative (Negative); Urine Clarity Clear (Clear); Urine Urobilinogen 1 mg/dl (Normal)
--- NOTE | 2022-07-18 12:12 | HP.PCM.HOS_ITS ---
HPI - General General Date of Admission: 07/18/22 Date of Service: 07/18/22 Chief Complaint: Altered mental status - 1 day HPI Narrative MICHAEL HENLEY, is a 72 F who presents the above. Patient has history of cirrhosis of the liver secondary to NÚÑEZ, status post TIPS, who follows with GI in the outpatient. Patient comes in confused. History was taken from the . states that usually when her ammonia goes up, she keeps this confused. She has not had a bowel movement in 4 days. No reported recent illness, nausea or vomiting or fever or chills. Patient's vitals in the ED showed blood pressure 178/47, heart rate 75, re spiratory 17, temperature 97.8 F, oxygen sat 100% on 3L of oxygen. RBC count is 6.4, hemoglobin 10.3, platelet count 84, sodium 143, potassium 4.2, chloride 104, bicarbonate 34, BUN 36, creatinine 1.41, glucose 214, calcium 10.9, albumin 3.1, ammonia [address] scan of the brain showed chronic involutional changes. Admitting chest x-ray is unremarkable. 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 Thrombocytopenia Home Medications albuterol sulfate 90 mcg/actuation aerosol inhaler 2 puff inhalation Q4H PRN PRN Sob &/Or Wheezing 07/04/16 [History Last Taken 10/16/16] clonidine HCl 0.1 mg tablet 0.1 mg PO TID blood pressure 11/20/17 [History Last Taken 02/08/22] clonidine HCl 0.2 mg tablet 0.2 mg PO BID blood pressure 01/06/19 [History Last Taken 02/09/22 08:00] albuterol sulfate 2.5 mg/3 mL (0.083 %) solution for nebulization 2.5 mg inhalation Q4H PRN PRN Sob &/Or Wheezing 01/30/21 [History Last Taken Unknown] furosemide 20 mg tablet 20 mg PO BID water pill 01/30/21 [History Last Taken 0 07/17/22] artificial tears solution eye drops 1 drp ophthalmic (eye) TID dry eyes 02/09/22 [History Last Taken 02/08/22] atorvastatin 40 mg tablet (Lipitor) 40 mg PO QHS cholesterol 02/09/22 [History L ast Taken 07/17/22] labetalol 100 mg tablet 50 mg PO BID Check with primary doctor 05/26/22 [History Last Taken 07/17/22] lactulose 20 gram/30 mL oral solution 20 g PO BID Check with primary doctor [History Last Taken 07/17/22] spironolactone 25 mg tablet 25 mg PO BID Check with primary doctor 05/26/22 [History Last Taken 07/17/22] bimatoprost 0.01 % eye drops (Lumigan) 1 drp LEFT EYE DAILY cataract 05/27/22 [History Last Taken Unknown] brimonidine 0.2 % eye drops 1 drp LEFT EYE BID cataract 05/27/22 [History Last Taken Unknown] cefdinir 300 mg capsule 300 mg PO BID #10 caps 05/28/22 [Rx Last Taken Unknown] polyethylene glycol 3350 17 gram oral powder packet 17 g PO DAILY #60 ea 08/09 [Rx Last Taken Unknown] polysaccharide iron complex 150 mg iron capsule (Ferrex) 150 mg PO DAILYCM #90 caps 05/28/22 [Rx Last Taken Unknown] potassium chloride 20 mEq tablet,extended release(part/cryst) 20 meq PO DAILY Check with primary doctor 07/18/22 [History Last Taken 07/17/22] ramipril 5 mg capsule 5 mg PO QHS Check with primary doctor 07/18/22 [History Last Taken 07/17/22] rifaximin 550 mg tablet (Xifaxan) 550 mg PO BID Check with primary doctor 07/18/22 [History Last Taken 07/17/22] torsemide 20 mg tablet 40 mg PO DAILY 07/18/22 [History Last Taken Unknown] Allergy/AdvReac Type Severity Reaction Status Date / Time suture Allergy Mild rash/ Verified 07/18/22 09:29 wound dehisence amoxicillin Allergy Unknown Verified 07/18/22 09:29 azithromycin Allergy Shortness Verified 07/18/22 09:29 of breath celecoxib [From Celebrex] Allergy Other Verified 07/18/22 09:29 ciprofloxacin HCl Allergy Shortness Verified 07/18/22 09:29 [From Cipro] of breath cortisone Allergy Swelling Verified 07/18/22 09:29 doxycycline Allergy Shortness Verified 07/18/22 09:29 of breath erythromycin base Allergy Unknown Verified 07/18/22 09:29 fexofenadine [From Ashlee] Allergy Unknown Verified 07/18/22 09:29 ibuprofen Allergy Shortness Verified 07/18/22 09:29 of breath Iodinated Contrast Media Allergy Shortness Verified 07/18/22 09:29 [DYEE] of breath iodine Allergy Shortness Verified 07/18/22 09:29 of breath levofloxacin [From Levaquin] Allergy Shortness Verified 07/18/22 09:29 of breath lorazepam [From Ativan] Allergy Shortness Verified 07/18/22 09:29 of breath nitrofurantoin Allergy Shortness Verified 07/18/22 09:29 macrocrystalline of breath [From Macrobid] Penicillins Allergy Shortness Verified 07/18/22 09:29 of breath rofecoxib [From Vioxx] Allergy Unknown Verified 07/18/22 09:29 Sulfa (Sulfonamide Allergy Shortness Verified 07/18/22 09:29 Antibiotics) of breath sulfamethoxazole Allergy Shortness Verified 07/18/22 09:29 [From Bactrim] of breath trimethoprim [From Bactrim] Allergy Shortness Verified 07/18/22 09:29 of breath amlodipine [From Norvasc] AdvReac Upset Verified 07/18/22 09:29 Stomach MISC BP MED Allergy Shortness Uncoded 07/18/22 09:29 of breath Family History Mother Heart disease Brother Heart disease Surgical History History of bilateral salpingo-oophorectomy History of laparoscopic cholecystectomy History of oral surgery S/P TIPS (transjugular intrahepatic portosystemic shunt) Social History Smoking Status: Former smoker alcohol intake: never substance use type: does not use ROS ROS Narrative Constitutional: Reports: Malaise, Weakness, Fatigue. Denies: Anorexia, Chills, Fever, Night Sweats, Weight Change Eyes: Denies: Blurred vision, Cataracts, Conjunctivae Inflammation, Pain, Redness, Vision Change HEENT: Denies: Difficulty Hearing, Difficulty Swallowing, Head Aches, Hearing Changes, Sinus Congestion, Sinus Drainage Cardiovascular: Denies: Chest Pain, Orthopnea, Palpitations Respiratory: Denies: Cough, Shortness of breath at rest, Sputum production Gastrointestinal: Denies: Abdominal Pain, Nausea, Vomiting Genitourinary: Denies: Dysuria Musculoskeletal: Denies: Joint Pain, Joint stiffness, Joint swelling, Joint Tenderness Skin: Denies: Rash, Wounds Neurological: Denies: Numbness, Tingling, Focal weakness Review of Systems ROS Unobtainable: due to encephalopathy Vital Signs Vital Signs Vital Signs: 07/18/22 09:31 07/18/22 11:27 Temperature 97.8 F Temperature Source Temporal Pulse Rate 69 79 Respiratory Rate 16 20 H Blood Pressure 177/151 H 167/70 H Blood Pressure Mean 159 102 Pulse Ox 100 100 Oxygen Delivery Method Nasal Cannula Room Air Oxygen Flow Rate (L/min) 3 Weight Weight: 64.4 kg Body Mass Index (BMI) 27.7 Physical Exam Narrative Physical exam: General: Alert, Oriented x2, not to time, Cooperative, obese HEENT: Atraumatic Oral: Moist Mucosa Neck: Supple Lungs: Diminished to auscultation Cardiovascular: HS I+II, regular, no murmurs Abdomen: Bowel Sounds Present, Soft, Non Tender Extremities: No edema Skin: No rashes, No breakdown Neurological: Grossly intact Psych/Mental Status: Appropriate Results Lab / Micro Data Result Diagrams: 07/18/22 09:30 07/18/22 09:30 Labs: Laboratory Results - last 24 hr 07/18/22 09:30: WBC 6.4, RBC 3.75 L, Hgb 10.3 L, Hct 32.3 L, MCV 86.1, MCH 27.5, MCHC 31.9 L, RDW Std Deviation 51.3 H, RDW Coeff of [place] 16.4 H, Plt Count 84 L, MPV 11.5, Immature Gran % (Auto) 0.200, Neut % (Auto) 60.7, Lymph % (Auto) 19.1, [place] % (Auto) 7.7, Eos % (Auto) 11.0 H, Baso % (Auto) 1.3 H, Absolute Neuts (auto) 3.9, Absolute Lymphs (auto) 1.21, Nucleated RBC % 0 07/18/22 09:30: Sodium 143, Potassium 4.3, Chloride 104, Carbon Dioxide 34.0 H, Anion Gap 5, BUN 36 H, Creatinine 1.41 H, Estim Creat Clear Calc 25.14, Est GFR (MDRD) Af Amer 47 L, Est GFR (MDRD) Non-Af 39 L, BUN/Creatinine Ratio 25.5 H, Glucose 214 H, Calcium 10.9 H, Total Bilirubin 0.70, AST 24, ALT 24, Alkaline Phosphatase 99, Total Protein 7.4, Albumin 3.1 L, Globulin 4.3 H, Albumin/Globulin Ratio 0.7 L 07/18/22 09:30: Ammonia 122.0 H 07/18/22 11:28: Urine Color Yellow, Urine Clarity Clear, Urine pH 7.0, Ur Specific [place] 1.010, Urine Protein 15 H, Urine Glucose (UA) Normal, Urine Ketones 5 H, Urine Occult Blood Negative, Urine Nitrite Negative, Urine Bilirubin Negative, Urine Urobilinogen 1 H, Ur Leukocyte Esterase Negative, Urine RBC 0 SEEN, Urine WBC 0 SEEN, Ur Squamous Epith Cells 0 SEEN, Urine Bacteria 0 SEEN, Urine Mucus 0 SEEN Radiology Impression Brain CT 07/18/22 10:09 IMPRESSION: Chronic involutional changes of the brain. Electronically Signed: Roberto Amor MD at 11:02 EDT , Chest X-Ray 07/18/22 10:32 IMPRESSION: No acute abnormality is seen. Electronically Signed: Roberto Amor MD at 11:00 EDT , Assessment & Plan Assessment/Plan (1) Acute hepatic encephalopathy: (2) Cirrhosis: PLAN: Plan 1. Acute hepatic encephalopathy, in a patient with known history of cirrhosis of the liver secondary to Núñez status post TIPS Likely secondary to noncompliance; last bowel movement was 4 days prior Admitted ammonia is 122 Will admit to MedSurg, continue lactulose, rifaximin Repeat ammonia and LFTs in a.m. 2. Dehydration/CKD stage IIIb, admitting creatinine is 1.41, Previous creatinine is 1.41 Continue gentle IV fluids, repeat blood work in a.m. 3. Hypertension, uncontrolled secondary to noncompliance, Continue home blood pressure medications Hydralazine as needed 4. Type II DM, not on medication, will check HbA1c, blood glucose checks with insulin sliding scale 5. Chronic anemia/thrombocytopenia secondary to liver cirrhosis, appears to be at her baseline Will continue to monitor 6. Hyperlipidemia, continue statins 7. DVT PPx- SCDs 8. I discussed and explained in details the various types of CODE STATUS-full code, DNR CCA, DNR CC. Patient's daughter stated that patient had always said she wanted everything done to keep her alive. Patient will be full code Time spent discussing CODE STATUS 16 minutes Charges/Coding Visit Charges Inpatient E&M: 05465 Init Hosp L3 Procedures Hospitalists Procedures: 73598 Advncd Care Plan 30 Min
[2022-07-18] MEDS: 0.9% Normal Saline 1,000 ML 999 ML IV (12:15)
--- NOTE | 2022-07-18 13:50 | CASEMGMT ---
Addendum entered by Earnestine Blackman 07/18/22 15:00: Pt dtr states pt does have portability and they will bring in upon dc. Addendum entered by Earnestine Blackman 07/18/22 14:55: Received notification from Snehal at [facility] that pt only is active with SN as PT and OT has dc'd. Addendum entered by Earnestine Blackman 07/18/22 14:52: Verified with Snehal at [facility] that pt has SN, PT and OT services. She is aware pt is hospitalized. Addendum entered by Earnestine Blackman 07/18/22 14:21: TC to [facility], [place], verified pt is on 2L continuous of oxygen with a conserving device. Original Note: LISA SALCIDO Assessment: Face to Face with pt for initial transition planning/care coordination assessment. LISA SALCIDO introduced self and role at [facility], pt voices understanding and consents to assessment. Pt is not oriented to place, time or person. Pt and dtr Mile present in room and assessment completed per them. Care providers, pharmacy, and demographics verified/updated. Admitting Dx: PCP: Sarah Specialists:Liver specialist team at [facility] Preferred Pharmacy: [facility] [place] Insurance: [facility] [employer] [facility] Prescription Benefit: yes LW/HPOA: Pt dtr denies pt having a LW/DPOA and denies need for info regarding AD. LNOK: Franklin Ann, ; Mile Wiley, dtr Living Arrangements: Pt lives with in a mobile home with a ramp to enter. states he is with pt 11/05. States pt is typically I in ADL's. Transportation: Pt family transports pt to medical appts. DME/HHC/SNF: Pt has a shower chair, raised toilet, walker, nebulizer, pox and oxygen at 3L cont through [facility] [place]. Pt is currently active with [facility]. Pt dtr denies SNF stays. Pt dtr/ states no concerns with pt going home at time of dc. States pt was fine yesterday and this happened all of a sudden. States pt lactulose dose was decreased recently. Dtr and state pt will turn around once she gets the correct dosing. Pt/family states no further concerns/needs. CM to follow. Advised pt and family to ask CM if any further question/concerns/needs arise, voices understanding. Pt Family Goal: Home with HHC resuming Plan: Home with HHC resuming if patient reorients.
[2022-07-18] MEDS: 0.9% Normal Saline 1,000 ML 100 ML IV (14:42)
[2022-07-18] MEDS: Lactulose 20 GM/30 ML UDC PO ×2 (14:42→22:19)
[2022-07-18] MEDS: Bisacodyl 10 MG Suppository RC (14:42)
--- NOTE | 2022-07-18 15:00 | CASEMGMT ---
Social Work Pt currently has services through [facility] with Skye Gillette as CM [phone]. VM left with Skye notifying of pts admission to hospital. SAVANA Clemens
[2022-07-18] MEDS: rifAXIMin 550 MG Tablet PO ×2 (15:35→22:21)
[2022-07-18] MEDS: Insulin Lispro 100 UNIT/ML INSULN.PEN SC ×2 (17:08→22:19)
[2022-07-18 17:25] LABS: Bedside Glucose 258 mg/dL (74-106)
[2022-07-18] MEDS: Atorvastatin Calcium 40 MG Tablet PO (22:21)
[2022-07-18] MEDS: Labetalol 100 MG Tablet 50 MG PO (22:21)
[2022-07-18] MEDS: hydrALAZINE 20 MG/ML Vial 5 MG IV (22:31)
[2022-07-18] MEDS: 0.9% Saline Lock 10 ML Syringe IV (22:34)
[2022-07-18 23:16] LABS: Bedside Glucose 178 mg/dL (74-106)
[2022-07-19] VITALS (9 sets, daily range): BP systolic 112–195; BP diastolic 46–79; PULSE 74–87; RESP 16–18; TEMP 36.2–37; O2SAT 98–100
[2022-07-19] MEDS: 0.9% Normal Saline 1,000 ML 100 ML IV (01:31)
[2022-07-19] MEDS: Lactulose 20 GM/30 ML UDC PO ×4 (01:32→21:02)
[2022-07-19] MEDS: hydrALAZINE 20 MG/ML Vial 5 MG IV (04:50)
[2022-07-19] MEDS: 0.9% Saline Lock 10 ML Syringe IV (04:51)
[2022-07-19 05:29] LABS: Absolute Lymphocyte Count 1.15 X10^3/uL (0.83-4.51); Absolute Neutrophil Count 3.3 X10^3/uL (2.0-7.7); Basophil# 0.06 X10^3/uL; Basophil% 1.1 % (0-1); Eosinophil# 0.61 X10^3/uL; Eosinophils% 10.9 % (0-5); Hematocrit 30.2 % (37-47); Hemoglobin 9.9 g/dL (12.0-15.0); Lymphocyte # 1.15 X10^3/ul (0.83-4.51); Lymphocyte % 20.6 % (19-41); Mean Corp Hgb Conc 32.8 g/dL (32-36); Mean Corpuscular Hgb 27.4 pg (27.0-32.0); Mean Corpuscular Volume 83.7 fL (81-99); Mean Platelet Vol. 11.6 fl (6.2-12.0); Monocyte# 0.46 X10^3/uL; Monocyte% 8.2 % (0-10); NRBC Flagged by Analyzer 0 % (0-5); Neutrophil # 3.29 X10^3/uL (2.7-7.7); POSITIVE COUNT YES; Platelet Count 78 K/mm3 (150-450); RBC Distribution Width SD 49.1 fl (35.1-43.9); Red Blood Count 3.61 M/mm3 (4.2-5.4); White Blood Count 5.6 K/mm3 (4.4-11.0)
[2022-07-19 05:45] LABS: ALB/GLOB Ratio 0.8 RATIO (0.9-2.4); AST(SGOT) 28 U/L (15-37); Alanine Aminotransfer ALT/SGPT 26 U/L (13-56); Albumin, Serum 2.8 g/dL (3.2-5.0); Alkaline Phosphatase 90 U/L (45-117); Anion Gap 5 (5-15); BUN 23 mg/dL (7-18); BUN/Creat Ratio 20.7 RATIO (10-20); Calcium,Total 10.2 mg/dL (8.5-10.1); Chloride 112 mmol/L (98-107); Creatinine, Serum 1.11 mg/dL (0.55-1.02); EST Glomerular Filtration Rate 51 mL/min (>60); Est Glom Filt Rate - Afr Amer 62 mL/min (>60); Globulin 3.7 g/dL (2.2-4.2); Glucose 192 mg/dL (74-106); Potassium 3.7 mmol/L (3.5-5.1); Protein, Total 6.5 g/dL (6.4-8.2); Sodium Level 146 mmol/L (136-145)
[2022-07-19] MEDS: Insulin Lispro 100 UNIT/ML INSULN.PEN SC ×3 (07:08→17:02)
[2022-07-19 07:30] LABS: Bedside Glucose 170 mg/dL (74-106)
--- NOTE | 2022-07-19 07:56 | PCM.PN.HOSP ---
Subjective Subjective Follow-up on acute hepatic encephalopathy: Patient was seen and examined. She is much more awake and oriented. She still not oriented to time. She thinks it's 2020. Denies any fever or chills. Has had 2 bowel movements. Objective Data Objective Data Vital Signs: Vital Signs Temp Pulse Resp BP Pulse Ox O2 Del Method O2 Flow Rate 98 F 74 16 188/66 H 99 Nasal Cannula 3 07/19/22 04:00 07/19/22 04:50 07/19/22 04:00 07/19/22 04:50 07/19/22 07:42 07/19/22 07:42 07/19/22 07:42 Oxygen Flow Rate (L/min) 3 Oxygen Delivery Method Nasal Cannula Weight: 64.1 kg Body Mass Index (BMI) 29.7 Intake & Output: Intake and Output for Last 24 Hours 07/17/22 07/18/22 07/19/22 23:59 23:59 23:59 Intake Total 1500 / 1500 1000 / 1000 Output Total 725 / 725 Balance 1500 / 1500 275 / 275 Lab / Micro Data Result Diagrams: 07/19/22 05:15 07/19/22 05:15 Labs: Laboratory Results - last 24 hr 07/18/22 09:30: WBC 6.4, RBC 3.75 L, Hgb 10.3 L, Hct 32.3 L, MCV 86.1, MCH 27.5, MCHC 31.9 L, RDW Std Deviation 51.3 H, RDW Coeff of Jordan 16.4 H, Plt Count 84 L, MPV 11.5, Immature Gran % (Auto) 0.200, Neut % (Auto) 60.7, Lymph % (Auto) 19.1, Charlton % (Auto) 7.7, Eos % (Auto) 11.0 H, Baso % (Auto) 1.3 H, Absolute Neuts (auto) 3.9, Absolute Lymphs (auto) 1.21, Nucleated RBC % 0 07/18/22 09:30: Sodium 143, Potassium 4.3, Chloride 104, Carbon Dioxide 34.0 H, Anion Gap 5, BUN 36 H, Creatinine 1.41 H, Estim Creat Clear Calc 25.14, Est GFR (MDRD) Af Amer 47 L, Est GFR (MDRD) Non-Af 39 L, BUN/Creatinine Ratio 25.5 H, Glucose 214 H, Calcium 10.9 H, Total Bilirubin 0.70, AST 24, ALT 24, Alkaline Phosphatase 99, Total Protein 7.4, Albumin 3.1 L, Globulin 4.3 H, Albumin/Globulin Ratio 0.7 L 07/18/22 09:30: Ammonia 122.0 H 07/18/22 11:28: Urine Color Yellow, Urine Clarity Clear, Urine pH 7.0, Ur Specific [place] 1.010, Urine Protein 15 H, Urine Glucose (UA) Normal, Urine Ketones 5 H, Urine Occult Blood Negative, Urine Nitrite Negative, Urine Bilirubin Negative, Urine Urobilinogen 1 H, Ur Leukocyte Esterase Negative, Urine RBC 0 SEEN, Urine WBC 0 SEEN, Ur Squamous Epith Cells 0 SEEN, Urine Bacteria 0 SEEN, Urine Mucus 0 SEEN 07/18/22 17:05: POC Glucose 258 H 07/18/22 22:18: POC Glucose 178 H 07/19/22 05:15: WBC 5.6, RBC 3.61 L, Hgb 9.9 L, Hct 30.2 L, MCV 83.7, MCH 27.4, MCHC 32.8, RDW Std Deviation 49.1 H, RDW Coeff of Jordan 16.0 H, Plt Count 78 L, MPV 11.6, Immature Gran % (Auto) 0.200, Neut % (Auto) 59.0, Lymph % (Auto) 20.6, Charlton % (Auto) 8.2, Eos % (Auto) 10.9 H, Baso % (Auto) 1.1 H, Absolute Neuts (auto) 3.3, Absolute Lymphs (auto) 1.15, Nucleated RBC % 0 07/19/22 05:15: Sodium 146 H, Potassium 3.7, Chloride 112 H, Carbon Dioxide 29.0, Anion Gap 5, BUN 23 H, Creatinine 1.11 H, Estim Creat Clear Calc 45.00, Est GFR (MDRD) Af Amer 62, Est GFR (MDRD) Non-Af 51 L, BUN/Creatinine Ratio 20.7 H, Glucose 192 H, Calcium 10.2 H, Total Bilirubin 1.10 H, AST 28, ALT 26, Alkaline Phosphatase 90, Total Protein 6.5, Albumin 2.8 L, Globulin 3.7, Albumin/Globulin Ratio 0.8 L 07/19/22 05:15: Ammonia 47.0 H 07/19/22 07:05: POC Glucose 170 H Radiography Diagnostic Testing: Radiology Impression Brain CT 07/18/22 10:09 IMPRESSION: Chronic involutional changes of the brain. Electronically Signed: Roberto Amor MD at 11:02 EDT , Chest X-Ray 07/18/22 10:32 IMPRESSION: No acute abnormality is seen. Electronically Signed: Roberto Amor MD at 11:00 EDT , Physical Exam Narrative Physical exam: General: Alert, Oriented x2, not to time, Cooperative, obese HEENT: Atraumatic Oral: Moist Mucosa Neck: Supple Lungs: Diminished to auscultation Cardiovascular: HS I+II, regular, no murmurs Abdomen: Bowel Sounds Present, Soft, Non Tender Extremities: No edema Skin: No rashes, No breakdown Neurological: Grossly intact Psych/Mental Status: Appropriate Assessment & Plan Assessment/Plan (1) Acute hepatic encephalopathy: (2) Cirrhosis: PLAN: Plan 1. Acute hepatic encephalopathy, in a patient with known history of cirrhosis of the liver secondary to Núñez status post TIPS Likely secondary to noncompliance Admitted ammonia is 122; 47 today Continue lactulose, rifaximin Repeat ammonia and LFTs in a.m. 2. Dehydration/CKD stage IIIb, slightly improved Cr is 1.11 from admitting creatinine 1.41, Continue gentle IV fluids, repeat blood work in a.m. 3. Hypertension, uncontrolled secondary to noncompliance, Will resume spironolactone. Rest of home meds yet to be reconciled Hydralazine as needed 4. Type II DM, not on medication, HbA1c is 6.7, Continue with blood glucose checks with insulin sliding scale 5. Chronic anemia/thrombocytopenia secondary to liver cirrhosis, appears to be at her baseline Will continue to monitor 6. Hyperlipidemia, continue statins 7. DVT PPx- SCDs Charges/Coding Visit Charges Inpatient E&M: 41091 Subs Hosp L2
[2022-07-19] MEDS: Labetalol 100 MG Tablet 50 MG PO ×2 (09:01→21:03)
[2022-07-19] MEDS: Dext 5%-0.45% NS 1,000 ML 75 ML IV (09:02)
[2022-07-19] MEDS: rifAXIMin 550 MG Tablet PO ×2 (09:02→21:03)
--- NOTE | 2022-07-19 11:47 | NURSING ---
called at this time to clarify home medications. He states the list is a lot and he is going to have his daughter call me back to review the medications. Phone number for unit provided for a call back.
[2022-07-19] MEDS: Spironolactone 25 MG Tablet PO ×2 (12:13→21:05)
[2022-07-19 12:46] LABS: Bedside Glucose 206 mg/dL (74-106)
[2022-07-19 17:25] LABS: Bedside Glucose 184 mg/dL (74-106)
[2022-07-19] MEDS: Atorvastatin Calcium 40 MG Tablet PO (21:02)
[2022-07-19 21:56] LABS: Bedside Glucose 142 mg/dL (74-106)
[2022-07-20] MEDS: Lactulose 20 GM/30 ML UDC PO ×2 (01:29→06:54)
[2022-07-20 03:15] VITALS: BP 159/75; PULSE 81; RESP 18; TEMP 37; O2SAT 96
[2022-07-20 05:20] LABS: Absolute Lymphocyte Count 1.14 X10^3/uL (0.83-4.51); Basophil# 0.05 X10^3/uL; Basophil% 0.9 % (0-1); Eosinophil# 0.63 X10^3/uL; Eosinophils% 11.9 % (0-5); Hematocrit 29.8 % (37-47); Hemoglobin 9.9 g/dL (12.0-15.0); Lymphocyte # 1.14 X10^3/ul (0.83-4.51); Lymphocyte % 21.6 % (19-41); Mean Corp Hgb Conc 33.2 g/dL (32-36); Mean Corpuscular Hgb 27.3 pg (27.0-32.0); Mean Corpuscular Volume 82.1 fL (81-99); Mean Platelet Vol. 11.4 fl (6.2-12.0); Monocyte# 0.46 X10^3/uL; Monocyte% 8.7 % (0-10); NRBC Flagged by Analyzer 0 % (0-5); Neutrophil # 2.99 X10^3/uL (2.7-7.7); Neutrophil % 56.7 % (47-70); POSITIVE COUNT YES; Platelet Count 76 K/mm3 (150-450); RBC Distribution Width CV 15.9 % (11.6-14.6); RBC Distribution Width SD 47.6 fl (35.1-43.9); Red Blood Count 3.63 M/mm3 (4.2-5.4); White Blood Count 5.3 K/mm3 (4.4-11.0)
[2022-07-20 05:47] LABS: ALB/GLOB Ratio 0.7 RATIO (0.9-2.4); AST(SGOT) 31 U/L (15-37); Alanine Aminotransfer ALT/SGPT 27 U/L (13-56); Albumin, Serum 2.6 g/dL (3.2-5.0); Alkaline Phosphatase 89 U/L (45-117); Anion Gap 6 (5-15); BUN 15 mg/dL (7-18); BUN/Creat Ratio 14.2 RATIO (10-20); Calcium,Total 10.3 mg/dL (8.5-10.1); Chloride 111 mmol/L (98-107); Creatinine, Serum 1.06 mg/dL (0.55-1.02); EST Glomerular Filtration Rate 54 mL/min (>60); Est Glom Filt Rate - Afr Amer 65 mL/min (>60); Estimated Creatinine Clearance 47.12 ml/min; Globulin 3.7 g/dL (2.2-4.2); Glucose 190 mg/dL (74-106); Potassium 3.8 mmol/L (3.5-5.1); Protein, Total 6.3 g/dL (6.4-8.2); Sodium Level 143 mmol/L (136-145)
[2022-07-20] MEDS: Insulin Lispro 100 UNIT/ML INSULN.PEN SC ×2 (06:52→11:49)
[2022-07-20 07:16] LABS: Bedside Glucose 176 mg/dL (74-106)
--- NOTE | 2022-07-20 09:47 | DCINST_ITS ---
Discharge Instructions Diet Discharge Diet: Low fat / Low cholesterol and 2000 mg Sodium Diet Activity Discharge Activity: Return to Normal Activity Follow Up Care Test Results: Test results from this visit will be discussed in further detail at your follow- up appointment, if applicable. Discharge Plan Admission Admit Date/Time: 07/18/22 12:07 Primary Reason for Your Visit: Acute hepatic encephalopathy Attending Provider: Jessika Fajardo Primary Care Provider: Josiah Smith Instructions Additional Instructions / Restrictions: Continue to take your lactulose as prescribed Aim for 2-4 bowel movements per day Follow-up with your primary care doctor for repeat blood work within a week Discharge Orders/Prescriptions Prescriptions: Continued atorvastatin [Lipitor] 40 mg Tablet 40 mg PO QHS spironolactone 25 mg tablet 25 mg PO BID labetalol 100 mg tablet 50 mg PO BID lactulose 20 gram/30 mL solution 20 g PO BID polysaccharide iron complex [Ferrex 150] 150 mg iron Capsule 150 mg PO DAILYCM Qty: 90 0RF torsemide 20 mg tablet 40 mg PO DAILY Label Comments: Take 2 tablets by mouth once daily. ramipril 5 mg Capsule 5 mg PO QHS Xifaxan 550 mg tablet 550 mg PO BID Discontinued furosemide 20 MG tablet 20 mg PO BID potassium chloride 20 mEq tablet,ER particles/crystals 20 meq PO DAILY Label Comments: Take 1 tablet by mouth once daily. Referrals / Follow Up: Josiah Smith MD [Primary Care Provider] - In 1 Week Disposition Disposition (needs filled in before D/C Order can be placed): Home Health Service
[2022-07-20 10:35] VITALS: BP 182/57; PULSE 69; RESP 16; TEMP 36.1; O2SAT 97
[2022-07-20] MEDS: Iron Polysaccharide Complex 150 MG CAPSULE PO (10:36)
[2022-07-20] MEDS: Labetalol 100 MG Tablet 50 MG PO (10:37)
[2022-07-20] MEDS: rifAXIMin 550 MG Tablet PO (10:37)
[2022-07-20] MEDS: Spironolactone 25 MG Tablet PO (10:37)
[2022-07-20 11:24] VITALS: O2SAT 93
[2022-07-20 11:46] VITALS: BP 132/63; PULSE 64; RESP 16; TEMP 36.8; O2SAT 97
[2022-07-20] MEDS: Furosemide 80 MG Tablet PO (11:48)
[2022-07-20 12:15] LABS: Bedside Glucose 216 mg/dL (74-106)
[2022-07-20 14:47] VITALS: BP 146/50; PULSE 79; RESP 18; TEMP 37.2; O2SAT 96
[2022-07-20 15:04] VITALS: O2SAT 88; O2SAT 96; O2SAT 98
--- NOTE | 2022-07-20 15:23 | DS.PCM_ITS ---
Providers Date of Admission: 07/18/22 Date of Discharge: 07/20/22 Primary Care Physician: Dr. Josiah Smith MD Reason For Visit: ACUTE HEPATIC ENCEPHALOPATHY Diagnosis Discharge Diagnosis (1) Acute hepatic encephalopathy: Status: Acute Code(s): K72.00 - Acute and subacute hepatic failure without coma (2) Cirrhosis: Status: Acute Code(s): K74.60 - Unspecified cirrhosis of liver Medications at Discharge Home Medications atorvastatin 40 mg tablet (Lipitor) 40 mg PO QHS cholesterol 02/09/22 labetalol 100 mg tablet 50 mg PO BID Check with primary doctor 05/26/22 lactulose 20 gram/30 mL oral solution 20 g PO BID Check with primary doctor 05/26/22 spironolactone 25 mg tablet 25 mg PO BID Check with primary doctor 05/26/22 polysaccharide iron complex 150 mg iron capsule (Ferrex) 150 mg PO DAILYCM #90 caps 05/28/22 ramipril 5 mg capsule 5 mg PO QHS Check with primary doctor 07/18/22 rifaximin 550 mg tablet (Xifaxan) 550 mg PO BID Check with primary doctor 07/18/22 torsemide 20 mg tablet 40 mg PO DAILY 07/18/22 Hospital Course Operations None Procedures None Summary of Care Provided Minutes Spent on Discharge: 35 Hospital Course: 72 F with PMHx of cirrhosis of the liver secondary to MALDONADO, status post TIPS, who follows with GI in the outpatient, who comes in confused.?History was taken from the . states that usually when her ammonia goes up, she keeps this confused.? She has not had a bowel movement in 4 days.? No reported recent illness, nausea or vomiting or fever or chills. Patient's vitals in the ED showed blood pressure 178/47, heart rate 75, respiratory 17, temperature 97.8 F, oxygen sat 100% on 3L of oxygen.? RBC count is 6.4, hemoglobin 10.3, platelet count 84, sodium 143, potassium 4.2, chloride 104, bicarbonate 34, BUN 36, creatinine 1.41, glucose 214, calcium 10.9, albumin 3.1, ammonia [address] scan of the brain showed chronic involutional changes.? Admitting chest x-ray is unremarkable. She was admitted to the Medsurg floor, kept NPO, started on gentle IVF, given lactulose Q6h. Repeat ammonia was 47. Her mental status improved. She was started on clear liquid diet. Her repeat ammonia the next day was 63. She continued to have >3 bowel movements. She was discharged to continue on lactulose, rifaximin. Patient was able to ambulate very well in her room without assistance. She will follow-up with her PCP within 1 week and with GI also. Physical Exam Narrative Physical exam: General: Alert, Oriented x2, not to time, Cooperative, obese HEENT: Atraumatic Oral: Moist Mucosa Neck: Supple Lungs: Diminished to auscultation Cardiovascular: HS I+II, regular, no murmurs Abdomen: Bowel Sounds Present, Soft, Non Tender Extremities: No edema Skin: No rashes, No breakdown Neurological: Grossly intact Psych/Mental Status: Appropriate Medical Records Data Medical Nutrition Assessment Dietitian: Malnutrition Criteria Met Start: 07/19/22 14:00 Freq: Status: Active Protocol: Document 07/19/22 14:00 RMA (Rec: 07/19/22 14:00 RMA [id number]) Nutrition Malnutrition Evidence of Malnutrition Exists Yes Malnutrition (severe): Chronic Evidenced By Suboptimal Energy Intake ( Severe),Weight Loss (Severe) Clinical Problem Chronic Disease or Condition Related Malnutrition Etiology Moderate to severe protein- calorie malnutrition in the context of chronic disease related to inadequate oral intake; fluid weight fluctuations possible Signs/Symptoms as evidenced by wt loss~18-20% x 4-5 months and ~9% wt loss x past 1-2 months and suspected PO meeting less than 50% estimated nutrition needs Status Active Problem Recommendation Dietitian Recommendations/Changes Recommend advance diet as tolerated to carbohydrate- controlled/sodium-restricted; fluid restriction as needed. Will defer ONS for now given high ammonia; add ONS as needed once diet advanced from clear liquids. Restrict protein as indicated until ammonia level normalizes . Weight / BMI Weight Weight: 64.1 kg Body Mass Index (BMI) 29.7 ABG / Lab / Microbiology Data Result Diagrams: 07/20/22 05:00 07/20/22 05:00 Laboratory: Laboratory Results - last 24 hr 07/19/22 17:00: POC Glucose 184 H 07/19/22 21:01: POC Glucose 142 H 07/20/22 05:00: WBC 5.3, RBC 3.63 L, Hgb 9.9 L, Hct 29.8 L, MCV 82.1, MCH 27.3, MCHC 33.2, RDW Std Deviation 47.6 H, RDW Coeff of Jordan 15.9 H, Plt Count 76 L, MPV 11.4, Immature Gran % (Auto) 0.200, Neut % (Auto) 56.7, Lymph % (Auto) 21.6, [place] % (Auto) 8.7, Eos % (Auto) 11.9 H, Baso % (Auto) 0.9, Absolute Neuts (auto) 3.0, Absolute Lymphs (auto) 1.14, Nucleated RBC % 0 07/20/22 05:00: Sodium 143, Potassium 3.8, Chloride 111 H, Carbon Dioxide 26.0, Anion Gap 6, BUN 15, Creatinine 1.06 H, Estim Creat Clear Calc 47.12, Est GFR (MDRD) Af Amer 65, Est GFR (MDRD) Non-Af 54 L, BUN/Creatinine Ratio 14.2, Glucose 190 H, Calcium 10.3 H, Total Bilirubin 1.40 H, AST 31, ALT 27, Alkaline Phosphatase 89, Total Protein 6.3 L, Albumin 2.6 L, Globulin 3.7, Albumin/Globu farhan Ratio 0.7 L 07/20/22 05:00: Ammonia 63.0 H 07/20/22 06:51: POC Glucose 176 H 07/20/22 11:43: POC Glucose 216 H D/C Instructions Discharge Diet: Low fat / Low cholesterol and 2000 mg Sodium Diet Meaningful Use Info Meaningful Use Diagnoses (Choose all that apply): None applicable Discharge Plan Admission Admit Date/Time: 07/18/22 12:07 Primary Reason for Your Visit: Acute hepatic encephalopathy Attending Provider: Jessika Fajardo Primary Care Provider: Josiah Smith Instructions Additional Instructions / Restrictions: Continue to take your lactulose as prescribed Aim for 2-4 bowel movements per day Follow-up with your primary care doctor for repeat blood work within a week Discharge Orders/Prescriptions Prescriptions: Continued atorvastatin [Lipitor] 40 mg Tablet 40 mg PO QHS spironolactone 25 mg tablet 25 mg PO BID labetalol 100 mg tablet 50 mg PO BID lactulose 20 gram/30 mL solution 20 g PO BID polysaccharide iron complex [Ferrex 150] 150 mg iron Capsule 150 mg PO DAILYCM Qty: 90 0RF torsemide 20 mg tablet 40 mg PO DAILY Label Comments: Take 2 tablets by mouth once daily. ramipril 5 mg Capsule 5 mg PO QHS Xifaxan 550 mg tablet 550 mg PO BID Discontinued furosemide 20 MG tablet 20 mg PO BID potassium chloride 20 mEq tablet,ER particles/crystals 20 meq PO DAILY Label Comments: Take 1 tablet by mouth once daily. Referrals / Follow Up: Josiah Smith MD [Primary Care Provider] - In 1 Week Disposition Disposition (needs filled in before D/C Order can be placed): Home Health Service Charges/Coding Visit Charges Inpatient E&M: 00174 Disch Hosp
== END 2022-07-20 15:15 | disposition home health service (06) | DRG 443 ==
LOC: ED 12:07 → MS3 12:28
PROVIDERS: Admitting Provider Internal Medicine; Emergency Provider Emergency Medicine; PCP Family Medicine; Visit Provider Internal Medicine
DX: K76.82 Hepatic encephalopathy (principal); D69.6 Thrombocytopenia, unspecified; E11.22 Type 2 diabetes mellitus with diabetic chronic kidney disease; D64.9 Anemia, unspecified; E78.5 Hyperlipidemia, unspecified; E86.0 Dehydration; K74.60 Unspecified cirrhosis of liver; J44.9 Chronic obstructive pulmonary disease, unspecified; N18.32 Chronic kidney disease, stage 3b; I12.9 Hypertensive chronic kidney disease with stage 1 through stage 4 chronic kidney disease, or unspecified chronic kidney disease; K75.81 Nonalcoholic steatohepatitis (NASH); Z87.891 Personal history of nicotine dependence; Z79.899 Other long term (current) drug therapy; Z79.01 Long term (current) use of anticoagulants; Z99.81 Dependence on supplemental oxygen; Z91.199 Patient's noncompliance with other medical treatment and regimen due to unspecified reason
CPT/HCPCS: 36415; 70450; 71045; 80053; 81001; 82140; 82962; 85025; 99251; 99285; J7030; J7040; P9612; A4216; G0463; J7799

== ENCOUNTER 2022-07-26 09:41 | Inpatient (IN) | payer MEDICARE, MEDICAID, SELFPAY ==
[2022-07-26] VITALS (14 sets, daily range): BP systolic 159–187; BP diastolic 39–67; PULSE 68–91; RESP 16–18; TEMP 36.4–37.1; O2SAT 98–100; BMI 28.3; BMI 25.9
--- NOTE | 2022-07-26 10:07 | EX.ED.DYSGE1 ---
HPI History of Present Illness Chief Complaint: General Illness Detail of Chief Complaint: Nonverbal Informant: spouse/S.O. Onset/Context/Timing Onset: Today Context: Sudden Onset Timing: Continuous Quality: Patient with altered mental status. History of hepatic encephalopathy Location: Presents from home Current Severity: Severe Maximum Severity: Severe Worsened by: Liver disease Relieved by: Nothing Associated Symptoms Associated Symptoms: Unable to determine Narrative Narrative: Patient is a 72-year-old woman with history of hepatic encephalopathy. She has known liver disease. She was recently admitted for hepatic encephalopathy. She also has history of thoracic abdominal aortic aneurysm, urinary tract infection, hypertension, diabetes and GERD. Patient is presently nonverbal. With persistent verbal stimuli tactile stimuli patient will open her eyes. Otherwise there is no response. The informant is the . states she ate last evening. She has not spoken this morning. 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 Thrombocytopenia Home Medications atorvastatin 40 mg tablet (Lipitor) 40 mg PO QHS cholesterol 02/09/22 [History Last Taken 07/17/22] labetalol 100 mg tablet 50 mg PO BID Check with primary doctor 05/26/22 [History Last Taken 07/17/22] lactulose 20 gram/30 mL oral solution 20 g PO Q6H Check with primary doctor 05/26/22 [History Last Taken 07/17/22] spironolactone 25 mg tablet 25 mg PO BID Check with primary doctor 05/26/22 [History Last Taken 07/17/22] polysaccharide iron complex 150 mg iron capsule (Ferrex) 150 mg PO DAILYCM #90 caps 05/28/22 [Rx Last Taken Unknown] ramipril 5 mg capsule 5 mg PO QHS Check with primary doctor 07/18/22 [History Last Taken 07/17/22] rifaximin 550 mg tablet (Xifaxan) 550 mg PO BID Check with primary doctor 07/18/22 [History Last Taken 07/17/22] torsemide 20 mg tablet 40 mg PO DAILY 07/18/22 [History Last Taken Unknown] glimepiride 4 mg tablet 4 mg PO DAILY 07/26/22 [History Last Taken Unknown] rifaximin 550 mg tablet (Xifaxan) 550 mg PO DAILY 07/26/22 [History Last Taken Unknown] tizanidine 4 mg tablet 4 mg PO PRN PRN Muscle Pain 07/26/22 [History Last Taken Unknown] Allergy/AdvReac Type Severity Reaction Status Date / Time suture Allergy Mild rash/ Verified 07/26/22 09:52 wound dehisence amoxicillin Allergy Unknown Verified 07/26/22 09:52 azithromycin Allergy Shortness Verified 07/26/22 09:52 of breath celecoxib [From Celebrex] Allergy Other Verified 07/26/22 09:52 ciprofloxacin HCl Allergy Shortness Verified 07/26/22 09:52 [From Cipro] of breath cortisone Allergy Swelling Verified 07/26/22 09:52 doxycycline Allergy Shortness Verified 07/26/22 09:52 of breath erythromycin base Allergy Unknown Verified 07/26/22 09:52 fexofenadine [From Ashlee] Allergy Unknown Verified 07/26/22 09:52 ibuprofen Allergy Shortness Verified 07/26/22 09:52 of breath Iodinated Contrast Media Allergy Shortness Verified 07/26/22 09:52 [DYEE] of breath iodine Allergy Shortness Verified 07/26/22 09:52 of breath levofloxacin [From Levaquin] Allergy Shortness Verified 07/26/22 09:52 of breath lorazepam [From Ativan] Allergy Shortness Verified 07/26/22 09:52 of breath nitrofurantoin Allergy Shortness Verified 07/26/22 09:52 macrocrystalline of breath [From Macrobid] Penicillins Allergy Shortness Verified 07/26/22 09:52 of breath rofecoxib [From Vioxx] Allergy Unknown Verified 07/26/22 09:52 Sulfa (Sulfonamide Allergy Shortness Verified 07/26/22 09:52 Antibiotics) of breath sulfamethoxazole Allergy Shortness Verified 07/26/22 09:52 [From Bactrim] of breath trimethoprim [From Bactrim] Allergy Shortness Verified 07/26/22 09:52 of breath amlodipine [From Norvasc] AdvReac Upset Verified 07/26/22 09:52 Stomach MISC BP MED Allergy Shortness Uncoded 07/26/22 09:52 of breath Family History Mother Heart disease Brother Heart disease Surgical History History of bilateral salpingo-oophorectomy History of laparoscopic cholecystectomy History of oral surgery S/P TIPS (transjugular intrahepatic portosystemic shunt) Social History (Updated 07/26/22 @ 10:[address] Alex Ryan MD) household members: spouse Smoking Status: Former smoker alcohol intake: never substance use type: does not use ROS ROS ED Review of Systems ROS Unobtainable: due to mental status EXAM Physical Exam Const Vital Signs: 07/26/22 09:42 07/26/22 09:48 07/26/22 09:51 Temperature 97.5 F L Temperature Source Temporal Pulse Rate 68 Respiratory Rate 17 Respiratory Effort Normal Non-Labored Respiratory Pattern Normal Blood Pressure 161/51 H Blood Pressure Mean 87 Pulse Ox 100 Oxygen Delivery Method Nasal Cannula Nasal Cannula Oxygen Flow Rate (L/min) 3 3 07/26/22 09:48 07/26/22 11:28 Temperature 97.5 F L Temperature Source Temporal Pulse Rate 68 Respiratory Rate 17 Respiratory Effort Respiratory Pattern Blood Pressure 161/51 H 181/67 H Blood Pressure Mean 87 105 Pulse Ox 100 Oxygen Delivery Method Nasal Cannula Oxygen Flow Rate (L/min) 3 Positive well nourished and well developed Constitutional Narrative: Patient is not alert. She is somnolent. She is slightly tachypneic. General Appearance ED: well developed and NAD; Negative for cyanotic, diaphoretic or pallor HEENT Reports dry mucous membranes HEENT Narrative: Head is atraumatic normocephalic. Ears normal. TMs normal. Nares patent. Mucosa is dry. Only part of the posterior pharynx was visualized and is unremarkable Mouth ED: Yes dry mucous membranes Mouth: dry mucous membranes Eyes PERRL and EOMs intact bilaterally General Eye ED: Negative for pale conjunctiva or scleral icterus Neck no lymphadenopathy, supple and no JVD Chest Wall inspection of chest normal and palpation of chest normal Resp clear to auscultation bilaterally Resp Narrative: Patient is tachypneic. Breath sounds are slightly diminished bilaterally. Cardio regular rate, regular rhythm, S1 normal heart sound, S2 normal heart sound and no murmurs GI normal to inspection, nondistended, normoactive bowel sounds, non-tender, non-distended and no masses; Negative for hepatosplenomegaly Back/Spine no CVA tenderness Extremity normal to inspection Neuro No oriented x3 Neuro Narrative: Patient withdraws to tactile stimulus. Sensorium / Orientation: orientation impaired and stuporous; Negative for alert Psych Psych Narrative: Unable to assess Skin no rashes or lesions noted and no wounds General Skin Exam: Negative for jaundice or pallor MDM MDM MDM Narrative Medical decision making narrative: Per review of records concern patient has hepatic encephalopathy p.o. will obtain appropriate work-up to rule out infectious etiology. Since patient is not alert will not treat with p.o. lactulose. We will have nurse place NG to administer lactulose. Chest x-ray is obtained to rule out pneumonia. UA to rule out urinary tract infection, which she has had in the past. CBC to assess white count and rule out anemia. Lactate to determine there is any evidence of endorgan dysfunction as well as comprehensive metabolic panel. Lab Data Attestation: I reviewed the patient's lab results. Lab results narrative: Patient has mild anemia. There is no shift. Coags normal. Competence of metabolic panel is remarkable for creatinine of 1.48 and a BUN of 37. Glucose is 247. Ammonia is 117. Lactate is normal at 1.3. Labs: Laboratory Results - last 24 hr 07/26/22 07/26/22 07/26/22 10:09 10:09 10:09 WBC 5.4 RBC 3.40 L Hgb 9.6 L Hct 29.4 L MCV 86.5 MCH 28.2 MCHC 32.7 RDW Std Deviation 51.8 H RDW Coeff of Jordan 16.7 H Plt Count 78 L MPV 11.9 Immature Gran % (Auto) 0.400 Neut % (Auto) 59.8 Lymph % (Auto) 18.4 L Bertie % (Auto) 9.7 Eos % (Auto) 10.6 H Baso % (Auto) 1.1 H Absolute Neuts (auto) 3.2 Absolute Lymphs (auto) 0.99 Nucleated RBC % 0 PT 15.5 H INR 1.3 APTT 30.2 Sodium 140 Potassium 4.5 Chloride 104 Carbon Dioxide 30.0 Anion Gap 6 BUN 37 H Creatinine 1.48 H Estim Creat Clear Calc 23.95 Est GFR (MDRD) Af Amer 44 L Est GFR (MDRD) Non-Af 37 L BUN/Creatinine Ratio 25.0 H Glucose 247 H Lactic Acid Calcium 10.3 H Total Bilirubin 0.60 AST 25 ALT 27 Alkaline Phosphatase 95 Ammonia Total Protein 6.8 Albumin 2.8 L Globulin 4.0 Albumin/Globulin Ratio 0.7 L Urine Color Urine Clarity Urine pH Ur Specific [place] Urine Protein Urine Glucose (UA) Urine Ketones Urine Occult Blood Urine Nitrite Urine Bilirubin Urine Urobilinogen Ur Leukocyte Esterase Urine RBC Urine WBC Ur Squamous Epith Cells Urine Bacteria Urine Mucus 07/26/22 07/26/22 07/26/22 10:09 10:09 11:15 WBC RBC Hgb Hct MCV MCH MCHC RDW Std Deviation RDW Coeff of Jordan Plt Count MPV Immature Gran % (Auto) Neut % (Auto) Lymph % (Auto) Bertie % (Auto) Eos % (Auto) Baso % (Auto) Absolute Neuts (auto) Absolute Lymphs (auto) Nucleated RBC % PT INR APTT Sodium Potassium Chloride Carbon Dioxide Anion Gap BUN Creatinine Estim Creat Clear Calc Est GFR (MDRD) Af Amer Est GFR (MDRD) Non-Af BUN/Creatinine Ratio Glucose Lactic Acid 1.3 Calcium Total Bilirubin AST ALT Alkaline Phosphatase Ammonia 117.0 H Total Protein Albumin Globulin Albumin/Globulin Ratio Urine Color Yellow Urine Clarity Clear Urine pH 6.5 Ur Specific [place] 1.010 Urine Protein 15 H Urine Glucose (UA) 50 H Urine Ketones Negative Urine Occult Blood Negative Urine Nitrite Negative Urine Bilirubin Negative Urine Urobilinogen Normal Ur Leukocyte Esterase Negative Urine RBC 0 SEEN Urine WBC 0 SEEN Ur Squamous Epith Cells 0 SEEN Urine Bacteria 0 SEEN Urine Mucus 0 SEEN Radiography Chest X-Ray - ED: 1 View and Read by ED Physician (Single view portable chest x-ray is independently reviewed and interpreted by me at 1058. Patient is slightly rotated. Cardiac's silhouette and size is normal. Perihilar regions normal. Lung parenchyma is normal. No abnormalities of the ostia structures noted.) Diagnostic Testing: Clinical Impression(s) from Imaging Studies Chest X-Ray 07/26/22 10:45 IMPRESSION: No demonstrated acute cardiopulmonary process. Electronically Signed: Salma Tompkins MD at 10:58 EDT , Treatment and Re-Evaluation Narrative: Patient is not redirectable. Family is concerned she is going to fall out of bed. Unable to redirect her since she is encephalopathic. Will place in soft wrist restraints. She also will need an NG to administer lactulose since she presently is not cooperative. Will administer 0.5 mg of Ativan. Nurse changed order from lactulose and genitorectal. Patient tolerated procedure and was able to hold. Urinalysis does not reveal evidence of infection. Will contact hospitalist for admission Discharge Plan Triage Chief Complaint: General Illness ED Provider: Alex Ryan Dx/Rx/DC Orders Clinical Impression: Acute hepatic encephalopathy, Hypertension, Diabetes mellitus, Cirrhosis Prescriptions: No Action atorvastatin [Lipitor] 40 mg Tablet 40 mg PO QHS spironolactone 25 mg tablet 25 mg PO BID labetalol 100 mg tablet 50 mg PO BID lactulose 20 gram/30 mL solution 20 g PO Q6H polysaccharide iron complex [Ferrex 150] 150 mg iron Capsule 150 mg PO DAILYCM Qty: 90 0RF torsemide 20 mg tablet 40 mg PO DAILY Label Comments: Take 2 tablets by mouth once daily. ramipril 5 mg Capsule 5 mg PO QHS Xifaxan 550 mg tablet 550 mg PO BID tizanidine 4 mg tablet 4 mg PO PRN PRN (Reason: Muscle Pain) Label Comments: Take 1 tablet by mouth every 8 hours as needed (muscle spasms) for up to 10 days. glimepiride 4 mg tablet 4 mg PO DAILY Label Comments: Take 2-3 tablets by mouth as needed. Xifaxan 550 mg tablet 550 mg PO DAILY Label Comments: TAKE 1 TABLET BY MOUTH TWICE DAILY Primary Care Provider: Josiah Smith Referrals: Josiah Smith MD [Primary Care Provider] - Disposition Disposition: Acute Care Hospital [facility]
[2022-07-26 10:23] LABS: Absolute Lymphocyte Count 0.99 X10^3/uL (0.83-4.51); Absolute Neutrophil Count 3.2 X10^3/uL (2.0-7.7); Basophil# 0.06 X10^3/uL; Basophil% 1.1 % (0-1); Eosinophil# 0.57 X10^3/uL; Eosinophils% 10.6 % (0-5); Hematocrit 29.4 % (37-47); Hemoglobin 9.6 g/dL (12.0-15.0); Lymphocyte # 0.99 X10^3/ul (0.83-4.51); Lymphocyte % 18.4 % (19-41); Mean Corp Hgb Conc 32.7 g/dL (32-36); Mean Corpuscular Hgb 28.2 pg (27.0-32.0); Mean Corpuscular Volume 86.5 fL (81-99); Mean Platelet Vol. 11.9 fl (6.2-12.0); Monocyte# 0.52 X10^3/uL; Monocyte% 9.7 % (0-10); NRBC Flagged by Analyzer 0 % (0-5); Neutrophil # 3.21 X10^3/uL (2.7-7.7); Neutrophil % 59.8 % (47-70); POSITIVE COUNT YES; Platelet Count 78 K/mm3 (150-450); RBC Distribution Width CV 16.7 % (11.6-14.6); RBC Distribution Width SD 51.8 fl (35.1-43.9); White Blood Count 5.4 K/mm3 (4.4-11.0)
[2022-07-26 10:28] LABS: International Normalized Ratio 1.3; Prothrombin Time (Protime)PT. 15.5 SECONDS (11.7-14.9)
[2022-07-26 10:29] LABS: Partial Thromboplast Time 30.2 Seconds (24.1-36.2)
[2022-07-26 10:39] LABS: ALB/GLOB Ratio 0.7 RATIO (0.9-2.4); AST(SGOT) 25 U/L (15-37); Alanine Aminotransfer ALT/SGPT 27 U/L (13-56); Albumin, Serum 2.8 g/dL (3.2-5.0); Alkaline Phosphatase 95 U/L (45-117); Anion Gap 6 (5-15); BUN 37 mg/dL (7-18); Calcium,Total 10.3 mg/dL (8.5-10.1); Chloride 104 mmol/L (98-107); Creatinine, Serum 1.48 mg/dL (0.55-1.02); EST Glomerular Filtration Rate 37 mL/min (>60); Est Glom Filt Rate - Afr Amer 44 mL/min (>60); Estimated Creatinine Clearance 23.95 ml/min; Glucose 247 mg/dL (74-106); Potassium 4.5 mmol/L (3.5-5.1); Protein, Total 6.8 g/dL (6.4-8.2); Sodium Level 140 mmol/L (136-145)
--- NOTE | 2022-07-26 10:45 | RAD_ITS ---
STUDY: X-RAY CHEST REASON FOR EXAM: Female, 72 years old. Tachypnea TECHNIQUE: Single AP portable view of the chest. COMPARISON: July 18, 2022 chest x-ray FINDINGS: The lungs are clear and expanded. There is no demonstrated pleural abnormality. There is mild cardiac enlargement. Normal mediastinum and ivan. Normal visualized pulmonary arteries. There is atherosclerotic tortuosity of the aortic arch and descending thoracic aorta. There is mild levoscoliosis. Normal visualized ribs, clavicles, and shoulders. There is no demonstrated abnormality of the visualized soft tissue structures of the upper abdomen. RAD/Chest 1 View (Portable) IMPRESSION: No demonstrated acute cardiopulmonary process. Electronically Signed: Salma Tompkins MD at 10:58 EDT ,
[2022-07-26 10:51] LABS: Lactic Acid 1.3 mmol/L (0.4-1.9)
[2022-07-26] MEDS: LORazepam 2 MG/ML Syringe 0.5 MG IV (11:06)
[2022-07-26 11:24] LABS: Bacteria 0 SEEN /hpf (None Seen); Mucous, Urine 0 SEEN /hpf (<or=2+); Red Blood Cells-Urine 0 SEEN /hpf (0-5); Squamous Epithelial Cells - UA 0 SEEN /hpf (5-10); White Blood Cells 0 SEEN /hpf (0-5)
[2022-07-26 11:26] LABS: Color, Urine Yellow (Yellow); Glucose, Dipstick 50 mg/dl (Normal); Ketone-Dipstick Negative (Negative); Leukocyte Esterase-Dipstick Negative /ul (Negative); Nitrite-Dipstick Negative (Negative); Occult Blood-Urine Negative /ul (Negative); Protein-Dipstick 15 mg/dl (Negative); Urine Bilirubin Dipstick Negative (Negative); Urine Clarity Clear (Clear); Urine Urobilinogen Normal (Normal); Urine pH 6.5 (5.0 - 8.0)
[2022-07-26] MEDS: Lactulose 20 GM/30 ML UDC NG (11:46)
--- NOTE | 2022-07-26 11:56 | HP.PCM.HOS_ITS ---
HPI - General General Date of Admission: 07/26/22 Date of Service: 07/26/22 Chief Complaint: confusion HPI Narrative MICHAEL HENLEY, is a 72 F with a PMH as outlined who presents via the ED with a complaint of confusion. She has a history of hepatic encephalopathy and was recently discharged on 07/20/2022 after being managed for acute hepatic encephalopathy. found her nonverbal and confused. HE therefore brought her in to the ED as she was usually encephalopathic whenever she became so confused. History was mainly taken from and daughter. He denied having any fever, chills, palpitations, dizziness, cough, chest pain, nausea or vomiting. Review of systems otherwise negative. According to the daughter, patient has been in the hospital numerous times ever since she had the TIPS procedure done in December 2021. She has had repeated episodes of hepatic encephalopathy and states that he has been recommended by the employment trainer that the TIPS procedure be reversed. However the daughter says they have followed up at [facility], and they have been told that it wont be done now. Vitals in the ED with temperature of 97.5 Fahrenheit with blood pressure of 181/67 and pulse rate of 68 with respiratory rate of 17. He was saturating 100% on 3 L of oxygen. CBC showed hemoglobin of 9.6 with WBC of 5.4 and platelets of 78. INR was 1.3 and chemistry was significant for ammonia level of 113 and creatinine of 1.48 as well as calcium of 10.3. Urinalysis showed no evidence of UTI. She has been admitted to be managed for acute hepatic encephalopathy. She was started on rectal lactulose in the ED. 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 Thrombocytopenia Home Medications atorvastatin 40 mg tablet (Lipitor) 40 mg PO QHS cholesterol 02/09/22 [History Last Taken 07/17/22] labetalol 100 mg tablet 50 mg PO BID Check with primary doctor 05/26/22 [History Last Taken 07/17/22] lactulose 20 gram/30 mL oral solution 20 g PO Q6H Check with primary doctor 05/26/22 [History Last Taken 07/17/22] spironolactone 25 mg tablet 25 mg PO BID Check with primary doctor 05/26/22 [History Last Taken 07/17/22] polysaccharide iron complex 150 mg iron capsule (Ferrex) 150 mg PO DAILYCM #90 caps 05/28/22 [Rx Last Taken Unknown] ramipril 5 mg capsule 5 mg PO QHS Check with primary doctor 07/18/22 [History Last Taken 07/17/22] rifaximin 550 mg tablet (Xifaxan) 550 mg PO BID Check with primary doctor 07/18/22 [History Last Taken 07/17/22] torsemide 20 mg tablet 40 mg PO DAILY 07/18/22 [History Last Taken Unknown] glimepiride 4 mg tablet 4 mg PO DAILY 07/26/22 [History Last Taken Unknown] rifaximin 550 mg tablet (Xifaxan) 550 mg PO DAILY 07/26/22 [History Last Taken Unknown] tizanidine 4 mg tablet 4 mg PO PRN PRN Muscle Pain 07/26/22 [History Last Taken Unknown] Allergy/AdvReac Type Severity Reaction Status Date / Time suture Allergy Mild rash/ Verified 07/26/22 09:52 wound dehisence amoxicillin Allergy Unknown Verified 07/26/22 09:52 azithromycin Allergy Shortness Verified 07/26/22 09:52 of breath celecoxib [From Celebrex] Allergy Other Verified 07/26/22 09:52 ciprofloxacin HCl Allergy Shortness Verified 07/26/22 09:52 [From Cipro] of breath cortisone Allergy Swelling Verified 07/26/22 09:52 doxycycline Allergy Shortness Verified 07/26/22 09:52 of breath erythromycin base Allergy Unknown Verified 07/26/22 09:52 fexofenadine [From Ashlee] Allergy Unknown Verified 07/26/22 09:52 ibuprofen Allergy Shortness Verified 07/26/22 09:52 of breath Iodinated Contrast Media Allergy Shortness Verified 07/26/22 09:52 [DYEE] of breath iodine Allergy Shortness Verified 07/26/22 09:52 of breath levofloxacin [From Levaquin] Allergy Shortness Verified 07/26/22 09:52 of breath lorazepam [From Ativan] Allergy Shortness Verified 07/26/22 09:52 of breath nitrofurantoin Allergy Shortness Verified 07/26/22 09:52 macrocrystalline of breath [From Macrobid] Penicillins Allergy Shortness Verified 07/26/22 09:52 of breath rofecoxib [From Vioxx] Allergy Unknown Verified 07/26/22 09:52 Sulfa (Sulfonamide Allergy Shortness Verified 07/26/22 09:52 Antibiotics) of breath sulfamethoxazole Allergy Shortness Verified 07/26/22 09:52 [From Bactrim] of breath trimethoprim [From Bactrim] Allergy Shortness Verified 07/26/22 09:52 of breath amlodipine [From Norvasc] AdvReac Upset Verified 07/26/22 09:52 Stomach MISC BP MED Allergy Shortness Uncoded 07/26/22 09:52 of breath Family History Mother Heart disease Brother Heart disease Surgical History History of bilateral salpingo-oophorectomy History of laparoscopic cholecystectomy History of oral surgery S/P TIPS (transjugular intrahepatic portosystemic shunt) Social History (Updated 07/26/22 @ 10:[address] Alex Ryan MD) household members: spouse Smoking Status: Former smoker alcohol intake: never substance use type: does not use ROS ROS Narrative taken from daughter and as patient is encephalopathic Constitutional Constitutional: Reports fatigue and malaise; Denies anorexia, chills, fever(s) or weakness Eyes Eyes: Denies change in vision ENT HEENT: Denies dysphagia, headache(s) or sore throat Cardiovascular Cardiovascular: Denies chest pain, dyspnea on exertion, edema, lightheadedness, orthopnea, palpitations, paroxysmal nocturnal dyspnea or rapid heart rate Respiratory/Chest Respiratory/Chest: Denies cough, dyspnea, shortness of breath at rest, shortness of breath with exertion or wheezing Gastrointestinal Gastrointestinal: Denies abdominal pain, constipation, diarrhea, nausea or vomiting Genitourinary Genitourinary: Denies burning urination, dysuria or urinary urgency Musculoskeletal Musculoskeletal: Denies arthralgias or joint swelling Neurologic Neurologic: Denies confusion, disequilibrium, dizziness, focal weakness, headache(s), seizure-like activity, seizures or syncope Psychiatric Psychiatric: Denies anxiety or depression Vital Signs Vital Signs Vital Signs: 07/26/22 09:42 07/26/22 09:48 07/26/22 09:51 Temperature 97.5 F L Temperature Source Temporal Pulse Rate 68 Respiratory Rate 17 Respiratory Effort Normal Non-Labored Respiratory Pattern Normal Blood Pressure 161/51 H Blood Pressure Mean 87 Pulse Ox 100 Oxygen Delivery Method Nasal Cannula Nasal Cannula Oxygen Flow Rate (L/min) 3 3 07/26/22 09:48 07/26/22 11:28 Temperature 97.5 F L Temperature Source Temporal Pulse Rate 68 Respiratory Rate 17 Respiratory Effort Respiratory Pattern Blood Pressure 161/51 H 181/67 H Blood Pressure Mean 87 105 Pulse Ox 100 Oxygen Delivery Method Nasal Cannula Oxygen Flow Rate (L/min) 3 Weight Weight: 145 lb 4.554 oz Body Mass Index (BMI) 28.3 Physical Exam Const Orientation / Consciousness: confused and lethargic HEENT normocephalic and head/scalp atraumatic HEENT Narrative: dry oral mucosal membranes Eyes PERRL, EOMs intact bilaterally and conjunctivae normal Neck no lymphadenopathy, supple and no JVD Resp normal respiratory effort, no retractions, no use of accessory muscles and clear to auscultation bilaterally Cardio regular rate, regular rhythm, S1 normal heart sound, S2 normal heart sound and no murmurs GI normal to inspection, nondistended, normoactive bowel sounds, soft to palpation, non-tender and non-distended Extremity normal to inspection, full ROM and no clubbing, cyanosis or edema Neuro Neuro Narrative: confused, lethargic, awakens to sternal rub but nonverbal Results Lab / Micro Data Result Diagrams: 07/26/22 10:09 07/26/22 10:09 Labs: Laboratory Results - last 24 hr 07/26/22 10:09: WBC 5.4, RBC 3.40 L, Hgb 9.6 L, Hct 29.4 L, MCV 86.5, MCH 28.2, MCHC 32.7, RDW Std Deviation 51.8 H, RDW Coeff of Jordan 16.7 H, Plt Count 78 L, MPV 11.9, Immature Gran % (Auto) 0.400, Neut % (Auto) 59.8, Lymph % (Auto) 18.4 L, Eagle % (Auto) 9.7, Eos % (Auto) 10.6 H, Baso % (Auto) 1.1 H, Absolute Neuts (auto) 3.2, Absolute Lymphs (auto) 0.99, Nucleated RBC % 0 07/26/22 10:09: PT 15.5 H, INR 1.3, APTT 30.2 07/26/22 10:09: Sodium 140, Potassium 4.5, Chloride 104, Carbon Dioxide 30.0, Anion Gap 6, BUN 37 H, Creatinine 1.48 H, Estim Creat Clear Calc 23.95, Est GFR (MDRD) Af Amer 44 L, Est GFR (MDRD) Non-Af 37 L, BUN/Creatinine Ratio 25.0 H, Glucose 247 H, Calcium 10.3 H, Total Bilirubin 0.60, AST 25, ALT 27, Alkaline Phosphatase 95, Total Protein 6.8, Albumin 2.8 L, Globulin 4.0, Albumin/Globulin Ratio 0.7 L 07/26/22 10:09: Ammonia 117.0 H 07/26/22 10:09: Lactic Acid 1.3 07/26/22 11:15: Urine Color Yellow, Urine Clarity Clear, Urine pH 6.5, Ur Specific [place] 1.010, Urine Protein 15 H, Urine Glucose (UA) 50 H, Urine Ketones Negative, Urine Occult Blood Negative, Urine Nitrite Negative, Urine Bilirubin Negative, Urine Urobilinogen Normal, Ur Leukocyte Esterase Negative, Urine RBC 0 SEEN, Urine WBC 0 SEEN, Ur Squamous Epith Cells 0 SEEN, Urine Bacteria 0 SEEN, Urine Mucus 0 SEEN Radiology Impression Chest X-Ray 07/26/22 10:45 IMPRESSION: No demonstrated acute cardiopulmonary process. Electronically Signed: Salma Tompkins MD at 10:58 EDT Reading Location ID and State: [facility] / [place] Tel , Service support , Assessment & Plan Assessment/Plan (1) Acute hepatic encephalopathy: PLAN: Plan #Acute hepatic encephalopathy * admit to med surg * start on lactulose, and titrate until 2-3 loose stools daily * ammonia level was 113 on admission * consult gastroenterology as family is concerned about recurrent admissions for acute hepatic encephalopathy in setting of TIPS placement in december 2021. * #History of nonalcoholic liver cirrhosis * On rifaximin and spironolactone as well as torsemide * #Hypertension: On ramipril and labetalol #Hyperlipidemia: On atorvastatin #Type 2 diabetes mellitus: On glimepiride. Hold for now. Insulin sliding scale. Accu-Cheks ACH S. DVT prophylaxis: SCDs CODE STATUS: Full code * Patient's and daughter counseled extensively about different types of CODE STATUS including full code, DNR CCA and DNR CCA. * Patient's daughter said her mother had always wanted everything done to keep her alive and wanted to be full code. They were counseled that this includes intubation and CPR and they are in agreement the patient should be full code.. * Total [id number] time 16 minutes. Charges/Coding Visit Charges Inpatient E&M: 71602 Init Hosp L3 Procedures Hospitalists Procedures: 26707 Advncd Care Plan 30 Min
--- NOTE | 2022-07-26 13:17 | CASEMGMT ---
RN CM NOTE: Noted pt was just discharged from [facility] on 07/20 w/[facility]. Call placed to [facility] on-call nurse, Leana, and she was notified of pt's admission. Also noted pt has CM through [facility]. Louisa RG, notified. Ad RANDOLPH RN CM
--- NOTE | 2022-07-26 13:42 | CASEMGMT ---
Social Work Pt currently has services through [facility] with Skye Gillette as CM [phone]. left with Skye notifying of pts admission to hospital. SW advised patient is on MS3 room 323 and was admitted this morning and the assigned social workers will be Dion. Louisa CLIFTON
[2022-07-26 14:01] LABS: Bedside Glucose 202 mg/dL (74-106)
[2022-07-26] MEDS: 0.9% Saline Lock 10 ML Syringe IV ×2 (15:01→22:02)
[2022-07-26] MEDS: hydrALAZINE 20 MG/ML Vial 10 MG IV ×2 (15:01→22:01)
--- NOTE | 2022-07-26 15:19 | NURSING ---
aware per melvina in pharmacy, he is working on rectal lactulose order.
[2022-07-26] MEDS: Lactulose 20 GM/30 ML UDC 200 GM RC (15:44)
[2022-07-26 18:30] LABS: Bedside Glucose 136 mg/dL (74-106)
--- NOTE | 2022-07-26 18:48 | NURSING ---
UPDATE GIVEN TO DAUGHTER JIMMY WHOM CALLED IN
[2022-07-26] MEDS: Ondansetron 4 MG/2 ML Vial IV (22:02)
[2022-07-27] VITALS (11 sets, daily range): BP systolic 125–164; BP diastolic 44–66; PULSE 67–100; RESP 18; TEMP 36.5–37.2; O2SAT 94–100
[2022-07-27] MEDS: Lactulose 20 GM/30 ML UDC 200 GM RC ×3 (00:33→22:57)
[2022-07-27 01:20] LABS: Bedside Glucose 118 mg/dL (74-106)
[2022-07-27 06:21] LABS: Absolute Lymphocyte Count 0.99 X10^3/uL (0.83-4.51); Absolute Neutrophil Count 5.2 X10^3/uL (2.0-7.7); Basophil# 0.06 X10^3/uL; Basophil% 0.8 % (0-1); Eosinophil# 0.57 X10^3/uL; Eosinophils% 7.6 % (0-5); Hematocrit 30.5 % (37-47); Hemoglobin 9.9 g/dL (12.0-15.0); Lymphocyte # 0.99 X10^3/ul (0.83-4.51); Lymphocyte % 13.2 % (19-41); Mean Corp Hgb Conc 32.5 g/dL (32-36); Mean Corpuscular Volume 86.2 fL (81-99); Mean Platelet Vol. 11.1 fl (6.2-12.0); Monocyte# 0.66 X10^3/uL; Monocyte% 8.8 % (0-10); NRBC Flagged by Analyzer 0 % (0-5); Neutrophil # 5.22 X10^3/uL (2.7-7.7); Neutrophil % 69.5 % (47-70); Platelet Count 101 K/mm3 (150-450); RBC Distribution Width CV 16.8 % (11.6-14.6); RBC Distribution Width SD 52.7 fl (35.1-43.9); Red Blood Count 3.54 M/mm3 (4.2-5.4); White Blood Count 7.5 K/mm3 (4.4-11.0)
[2022-07-27] MEDS: Insulin Lispro 100 UNIT/ML INSULN.PEN SC ×4 (06:26→22:44)
[2022-07-27 07:03] LABS: ALB/GLOB Ratio 0.7 RATIO (0.9-2.4); AST(SGOT) 25 U/L (15-37); Alanine Aminotransfer ALT/SGPT 25 U/L (13-56); Albumin, Serum 2.7 g/dL (3.2-5.0); Alkaline Phosphatase 98 U/L (45-117); Anion Gap 8 (5-15); BUN 33 mg/dL (7-18); BUN/Creat Ratio 23.7 RATIO (10-20); Calcium,Total 10.5 mg/dL (8.5-10.1); Chloride 108 mmol/L (98-107); Creatinine, Serum 1.39 mg/dL (0.55-1.02); EST Glomerular Filtration Rate 39 mL/min (>60); Est Glom Filt Rate - Afr Amer 48 mL/min (>60); Estimated Creatinine Clearance 25.51 ml/min; Glucose 265 mg/dL (74-106); Potassium 3.9 mmol/L (3.5-5.1); Protein, Total 6.7 g/dL (6.4-8.2); Sodium Level 143 mmol/L (136-145)
[2022-07-27] MEDS: Iron Polysaccharide Complex 150 MG CAPSULE PO (08:02)
[2022-07-27] MEDS: Labetalol 100 MG Tablet 50 MG PO ×2 (08:03→23:31)
[2022-07-27] MEDS: Spironolactone 25 MG Tablet PO ×2 (08:03→22:45)
[2022-07-27] MEDS: Furosemide 80 MG Tablet PO (08:03)
--- NOTE | 2022-07-27 10:09 | PN.HOSP_ITS ---
Subjective Subjective Patient seen and examined. She is fully awake, alert and oriented x 3 today. She has no active complaints. Review of systems is otherwise negative. Objective Data Objective Data Vital Signs: Vital Signs Temp Pulse Resp BP Pulse Ox O2 Del Method O2 Flow Rate 98.9 F 100 18 147/52 H 97 Room Air 3 07/27/22 08:00 07/27/22 08:24 07/27/22 08:00 07/27/22 08:00 07/27/22 08:00 07/27/22 08:22 07/26/22 22:00 Oxygen Flow Rate (L/min) 3 Oxygen Delivery Method Room Air Weight: 132 lb 9.6 oz Body Mass Index (BMI) 25.9 Intake & Output: Intake and Output for Last 24 Hours 07/25/22 07/26/22 07/27/22 23:59 23:59 23:59 Output Total 650 / 650 200 / 200 Balance -650 / -650 -200 / -200 Lab / Micro Data Result Diagrams: 07/27/22 06:02 07/27/22 06:02 Labs: Laboratory Results - last 24 hr 07/26/22 10:09: WBC 5.4, RBC 3.40 L, Hgb 9.6 L, Hct 29.4 L, MCV 86.5, MCH 28.2, MCHC 32.7, RDW Std Deviation 51.8 H, RDW Coeff of Jordan 16.7 H, Plt Count 78 L, MPV 11.9, Immature Gran % (Auto) 0.400, Neut % (Auto) 59.8, Lymph % (Auto) 18.4 L, Miller % (Auto) 9.7, Eos % (Auto) 10.6 H, Baso % (Auto) 1.1 H, Absolute Neuts (auto) 3.2, Absolute Lymphs (auto) 0.99, Nucleated RBC % 0 07/26/22 10:09: PT 15.5 H, INR 1.3, APTT 30.2 07/26/22 10:09: Sodium 140, Potassium 4.5, Chloride 104, Carbon Dioxide 30.0, Anion Gap 6, BUN 37 H, Creatinine 1.48 H, Estim Creat Clear Calc 23.95, Est GFR (MDRD) Af Amer 44 L, Est GFR (MDRD) Non-Af 37 L, BUN/Creatinine Ratio 25.0 H, Glucose 247 H, Calcium 10.3 H, Total Bilirubin 0.60, AST 25, ALT 27, Alkaline Phosphatase 95, Total Protein 6.8, Albumin 2.8 L, Globulin 4.0, Albumin/Globulin Ratio 0.7 L 07/26/22 10:09: Ammonia 117.0 H 07/26/22 10:09: Lactic Acid 1.3 07/26/22 11:15: Urine Color Yellow, Urine Clarity Clear, Urine pH 6.5, Ur Specific [place] 1.010, Urine Protein 15 H, Urine Glucose (UA) 50 H, Urine Ketones Negative, Urine Occult Blood Negative, Urine Nitrite Negative, Urine Bilirubin Negative, Urine Urobilinogen Normal, Ur Leukocyte Esterase Negative, Urine RBC 0 SEEN, Urine WBC 0 SEEN, Ur Squamous Epith Cells 0 SEEN, Urine Bacteria 0 SEEN, Urine Mucus 0 SEEN 07/26/22 13:39: POC Glucose 202 H 07/26/22 18:10: POC Glucose 136 H 07/27/22 00:31: POC Glucose 118 H 07/27/22 06:02: WBC 7.5, RBC 3.54 L, Hgb 9.9 L, Hct 30.5 L, MCV 86.2, MCH 28.0, MCHC 32.5, RDW Std Deviation 52.7 H, RDW Coeff of [place] 16.8 H, Plt Count 101 L, MPV 11.1, Immature Gran % (Auto) 0.100, Neut % (Auto) 69.5, Lymph % (Auto) 13.2 L, Miller % (Auto) 8.8, Eos % (Auto) 7.6 H, Baso % (Auto) 0.8, Absolute Neuts (auto) 5.2, Absolute Lymphs (auto) 0.99, Nucleated RBC % 0 07/27/22 06:02: Sodium 143, Potassium 3.9, Chloride 108 H, Carbon Dioxide 27.0, Anion Gap 8, BUN 33 H, Creatinine 1.39 H, Estim Creat Clear Calc 25.51, Est GFR (MDRD) Af Amer 48 L, Est GFR (MDRD) Non-Af 39 L, BUN/Creatinine Ratio 23.7 H, Glucose 265 H, Calcium 10.5 H, Total Bilirubin 1.10 H, AST 25, ALT 25, Alkaline Phosphatase 98, Total Protein 6.7, Albumin 2.7 L, Globulin 4.0, Albumin/Globulin Ratio 0.7 L 07/27/22 08:20: Ammonia 37.0 H Radiography Diagnostic Testing: Radiology Impression Chest X-Ray 07/26/22 10:45 IMPRESSION: No demonstrated acute cardiopulmonary process. Electronically Signed: Salma Tompkins MD at 10:58 EDT Reading Location ID and State: [facility] / [place] Tel , Service support , Physical Exam Const alert, oriented x3 and no apparent distress HEENT normocephalic, head/scalp atraumatic and moist oral mucous membranes Head and Scalp: normocephalic Mouth: oral and palatal mucosa normal Eyes PERRL, EOMs intact bilaterally and conjunctivae normal Neck no lymphadenopathy, supple and no JVD Resp normal respiratory effort, no retractions, no use of accessory muscles and clear to auscultation bilaterally Cardio regular rate, regular rhythm, S1 normal heart sound, S2 normal heart sound and no murmurs GI normal to inspection, nondistended, normoactive bowel sounds, soft to palpation, non-tender and non-distended Extremity normal to inspection, full ROM and no clubbing, cyanosis or edema Neuro oriented x3, CN's II-XII intact bilaterally and moves all extremities Sensorium / Orientation: awake and alert Motor Exam: strength 5/5 throughout Psych affect normal Assessment & Plan Assessment/Plan (1) Acute hepatic encephalopathy: PLAN: Plan #Acute hepatic encephalopathy * patient was given rectal lactulose overnight * now awake, alert and oriented * ammonia level today is down to 37 * per discussion with gastroenterology, there is concern about whether she has really been compliant with her lactulose * switch lactulose from rectal to PO * ammonia level was 113 on admission * consult gastroenterology as family is concerned about recurrent admissions for acute hepatic encephalopathy in setting of TIPS placement in december 2021. * #History of nonalcoholic liver cirrhosis * On rifaximin and spironolactone as well as torsemide * s/p TIPS procedure. Gastroenterology now advising that TIPS be reversed due to recurrent encephalopathy * #Hypertension: On ramipril and labetalol #Hyperlipidemia: On atorvastatin #Type 2 diabetes mellitus: On glimepiride. Hold for now. Insulin sliding scale. Accu-Cheks ACH S. DVT prophylaxis: SCDs CODE STATUS: Full code * Charges/Coding Visit Charges Inpatient E&M: 44305 Subs Hosp L2
[2022-07-27] MEDS: Lactulose 20 GM/30 ML UDC PO ×2 (11:34→20:02)
--- NOTE | 2022-07-27 11:39 | CON.PCM_ITS ---
Assessment & Plan Assessment/Plan (1) Acute hepatic encephalopathy: PLAN: Acute hepatic encephalopathy due to possible malabsorption of the upper GI tract not allowing for ammonia to have a significant effect. She does actually better with taking the lactulose per rectum. I would recommend lactulose twice a day BID and twice a day. I would recommend Xifaxan 550 mg twice a day. (2) Cirrhosis: PLAN: Acute decompensated cirrhosis with hepatic encephalopathy, she has no sign of GI bleeding at this time. Will need to recheck her INR to calculate her meld score. She will need to get her TIPS reversed. She will also need a capsule endoscopy as an outpatient to make sure she does not have any signs of GI bleeding in the small bowel that would contribute to her hepatic encephalopathy. HPI Consult Data Date of Consult: 07/27/22 HPI Narrative Reason for Consultation: Hepatic encephalopathy HPI Narrative: MICHAEL HENLEY, is a 72 F who presents with altered mental status. She has a past medical history of Núñez cirrhosis secondary to type 2 diabetes and obesity.? Her cirrhosis and complicated by portal vein thrombosis, splenic vein thrombosis, esophageal varices, ascites, encephalopathy.? She presented to the emergency room with altered mental status. ?She she went to [facility] [place] for a TIPS procedure.? Complications involving the TIPS procedure included worsening encephalopathy.? She has still had ascites despite having the TIPS procedure.? She has not had a paracentesis since having the TIPS placed.? When she was admitted to the hospital she was discovered to have severe hypoalbuminemia, hepatic encephalopathy ? She does not take Xifaxan and takes lactulose 3 times a day as per family.? She does not know if she has any problems with hypomagnesemia, hypokalemia as causes of her worsening encephalopathy.? She does notice she has been anemic and thrombocytopenic.? She has not received blood transfusions or platelet transfusions. [facility] Medical History (Updated 07/26/22 @ 13:26 by Frida Hayes) Abdominal pain Anemia Ascites Asthma Cirrhosis Cirrhosis COPD (chronic obstructive pulmonary disease) Depressive disorder Diabetes mellitus GERD (gastroesophageal reflux disease) Hernia history diagnostic hysteroscopy history thrombendarterectomy neck Hypertension Osteoarthrosis Portal vein thrombosis Rectus sheath hematoma Splenic vein thrombosis Thrombocytopenia Home Medications atorvastatin 40 mg tablet (Lipitor) 40 mg PO QHS cholesterol 02/09/22 [History Last Taken 07/17/22] labetalol 100 mg tablet 50 mg PO BID Check with primary doctor 05/26/22 [History Last Taken 07/17/22] lactulose 20 gram/30 mL oral solution 20 g PO Q6H Check with primary doctor 05/26/22 [History Last Taken 07/17/22] spironolactone 25 mg tablet 25 mg PO BID Check with primary doctor 05/26/22 [History Last Taken 07/17/22] polysaccharide iron complex 150 mg iron capsule (Ferrex) 150 mg PO DAILYCM #90 caps 05/28/22 [Rx Last Taken Unknown] ramipril 5 mg capsule 5 mg PO QHS Check with primary doctor 07/18/22 [History Last Taken 07/17/22] torsemide 20 mg tablet 40 mg PO DAILY 07/18/22 [History Last Taken Unknown] glimepiride 4 mg tablet 4 mg PO DAILY 07/26/22 [History Last Taken Unknown] rifaximin 550 mg tablet (Xifaxan) 275 mg PO DAILY Check with primary doctor 07/26/22 [History Last Taken Unknown] tizanidine 4 mg tablet 4 mg PO PRN PRN Muscle Pain 07/26/22 [History Last Taken Unknown] Allergy/AdvReac Type Severity Reaction Status Date / Time suture Allergy Mild rash/ Verified 07/26/22 09:52 wound dehisence amoxicillin Allergy Unknown Verified 07/26/22 09:52 azithromycin Allergy Shortness Verified 07/26/22 09:52 of breath celecoxib [From Celebrex] Allergy Other Verified 07/26/22 09:52 ciprofloxacin HCl Allergy Shortness Verified 07/26/22 09:52 [From Cipro] of breath cortisone Allergy Swelling Verified 07/26/22 09:52 doxycycline Allergy Shortness Verified 07/26/22 09:52 of breath erythromycin base Allergy Unknown Verified 07/26/22 09:52 fexofenadine [From Ashlee] Allergy Unknown Verified 07/26/22 09:52 ibuprofen Allergy Shortness Verified 07/26/22 09:52 of breath Iodinated Contrast Media Allergy Shortness Verified 07/26/22 09:52 [DYEE] of breath iodine Allergy Shortness Verified 07/26/22 09:52 of breath levofloxacin [From Levaquin] Allergy Shortness Verified 07/26/22 09:52 of breath lorazepam [From Ativan] Allergy Shortness Verified 07/26/22 09:52 of breath nitrofurantoin Allergy Shortness Verified 07/26/22 09:52 macrocrystalline of breath [From Macrobid] Penicillins Allergy Shortness Verified 07/26/22 09:52 of breath rofecoxib [From Vioxx] Allergy Unknown Verified 07/26/22 09:52 Sulfa (Sulfonamide Allergy Shortness Verified 07/26/22 09:52 Antibiotics) of breath sulfamethoxazole Allergy Shortness Verified 07/26/22 09:52 [From Bactrim] of breath trimethoprim [From Bactrim] Allergy Shortness Verified 07/26/22 09:52 of breath amlodipine [From Norvasc] AdvReac Upset Verified 07/26/22 09:52 Stomach MISC BP MED Allergy Shortness Uncoded 07/26/22 09:52 of breath Family History Mother Heart disease Brother Heart disease Surgical History History of bilateral salpingo-oophorectomy History of laparoscopic cholecystectomy History of oral surgery S/P TIPS (transjugular intrahepatic portosystemic shunt) Social History (Updated 07/26/22 @ 10:[address] Alex Ryan MD) household members: spouse Smoking Status: Former smoker alcohol intake: never substance use type: does not use ROS ROS Narrative taken from daughter and as patient is encephalopathic Constitutional Constitutional: Reports fatigue and malaise; Denies anorexia, chills, fever(s) or weakness Eyes Eyes: Denies change in vision ENT HEENT: Denies dysphagia, headache(s) or sore throat Cardiovascular Cardiovascular: Denies chest pain, dyspnea on exertion, edema, lightheadedness, orthopnea, palpitations, paroxysmal nocturnal dyspnea or rapid heart rate Respiratory/Chest Respiratory/Chest: Denies cough, dyspnea, shortness of breath at rest, shortness of breath with exertion or wheezing Gastrointestinal Gastrointestinal: Denies abdominal pain, constipation, diarrhea, nausea or vomiting Genitourinary Genitourinary: Denies burning urination, dysuria or urinary urgency Musculoskeletal Musculoskeletal: Denies arthralgias or joint swelling Neurologic Neurologic: Denies confusion, disequilibrium, dizziness, focal weakness, headache(s), seizure-like activity, seizures or syncope Psychiatric Psychiatric: Denies anxiety or depression Physical Exam Const alert, oriented x3 and no apparent distress HEENT normocephalic, head/scalp atraumatic and moist oral mucous membranes Head and Scalp: normocephalic Mouth: oral and palatal mucosa normal Eyes PERRL, EOMs intact bilaterally and conjunctivae normal Neck no lymphadenopathy, supple and no JVD Resp normal respiratory effort, no retractions, no use of accessory muscles and clear to auscultation bilaterally Cardio regular rate, regular rhythm, S1 normal heart sound, S2 normal heart sound and no murmurs GI normal to inspection, nondistended, normoactive bowel sounds, soft to palpation, non-tender and non-distended Extremity normal to inspection, full ROM and no clubbing, cyanosis or edema Neuro oriented x3, CN's II-XII intact bilaterally and moves all extremities Sensorium / Orientation: awake and alert Motor Exam: strength 5/5 throughout Psych affect normal Lab / Micro Data Result Diagrams: 07/27/22 06:02 07/27/22 06:02 Labs: Laboratory Results - last 24 hr 07/26/22 13:39: POC Glucose 202 H 07/26/22 18:10: POC Glucose 136 H 07/27/22 00:31: POC Glucose 118 H 07/27/22 06:02: WBC 7.5, RBC 3.54 L, Hgb 9.9 L, Hct 30.5 L, MCV 86.2, MCH 28.0, MCHC 32.5, RDW Std Deviation 52.7 H, RDW Coeff of Jordan 16.8 H, Plt Count 101 L, MPV 11.1, Immature Gran % (Auto) 0.100, Neut % (Auto) 69.5, Lymph % (Auto) 13.2 L, [place] % (Auto) 8.8, Eos % (Auto) 7.6 H, Baso % (Auto) 0.8, Absolute Neuts (auto) 5.2, Absolute Lymphs (auto) 0.99, Nucleated RBC % 0 07/27/22 06:02: Sodium 143, Potassium 3.9, Chloride 108 H, Carbon Dioxide 27.0, Anion Gap 8, BUN 33 H, Creatinine 1.39 H, Estim Creat Clear Calc 25.51, Est GFR (MDRD) Af Amer 48 L, Est GFR (MDRD) Non-Af 39 L, BUN/Creatinine Ratio 23.7 H, Glucose 265 H, Calcium 10.5 H, Total Bilirubin 1.10 H, AST 25, ALT 25, Alkaline Phosphatase 98, Total Protein 6.7, Albumin 2.7 L, Globulin 4.0, Albumin/Globulin Ratio 0.7 L 07/27/22 08:20: Ammonia 37.0 H Charges/Coding Visit Charges Inpatient E&M: 51238 Init Hosp L3
[2022-07-27 11:50] LABS: Bedside Glucose 255 mg/dL (74-106)
[2022-07-27 16:55] LABS: Bedside Glucose 177 mg/dL (74-106)
[2022-07-27] MEDS: 0.9% Saline Lock 10 ML Syringe IV (22:42)
[2022-07-27 23:05] LABS: Bedside Glucose 321 mg/dL (74-106)
[2022-07-27] MEDS: Atorvastatin Calcium 40 MG Tablet PO (23:31)
[2022-07-28] VITALS (11 sets, daily range): BP systolic 149–152; BP diastolic 39–50; PULSE 66–90; RESP 16–18; TEMP 36.7–37.2; O2SAT 94–100
[2022-07-28] MEDS: Ondansetron 4 MG/2 ML Vial IV
[2022-07-28] MEDS: 0.9% Saline Lock 10 ML Syringe IV
[2022-07-28 00:15] LABS: Bedside Glucose 242 mg/dL (74-106)
[2022-07-28 06:04] LABS: Absolute Lymphocyte Count 1.57 X10^3/uL (0.83-4.51); Absolute Neutrophil Count 3.5 X10^3/uL (2.0-7.7); Basophil# 0.06 X10^3/uL; Basophil% 0.9 % (0-1); Eosinophil# 0.62 X10^3/uL; Eosinophils% 9.6 % (0-5); Hematocrit 29.4 % (37-47); Hemoglobin 9.6 g/dL (12.0-15.0); Lymphocyte # 1.57 X10^3/ul (0.83-4.51); Lymphocyte % 24.4 % (19-41); Mean Corp Hgb Conc 32.7 g/dL (32-36); Mean Corpuscular Hgb 27.9 pg (27.0-32.0); Mean Corpuscular Volume 85.5 fL (81-99); Mean Platelet Vol. 10.8 fl (6.2-12.0); Monocyte# 0.64 X10^3/uL; NRBC Flagged by Analyzer 0 % (0-5); Neutrophil # 3.53 X10^3/uL (2.7-7.7); Neutrophil % 54.9 % (47-70); Platelet Count 101 K/mm3 (150-450); RBC Distribution Width CV 16.9 % (11.6-14.6); RBC Distribution Width SD 51.7 fl (35.1-43.9); Red Blood Count 3.44 M/mm3 (4.2-5.4); White Blood Count 6.4 K/mm3 (4.4-11.0)
[2022-07-28] MEDS: Insulin Lispro 100 UNIT/ML INSULN.PEN SC ×4 (06:19→22:57)
[2022-07-28] MEDS: Lactulose 20 GM/30 ML UDC PO ×3 (06:21→20:47)
[2022-07-28 06:34] LABS: ALB/GLOB Ratio 0.7 RATIO (0.9-2.4); AST(SGOT) 20 U/L (15-37); Alanine Aminotransfer ALT/SGPT 21 U/L (13-56); Albumin, Serum 2.6 g/dL (3.2-5.0); Alkaline Phosphatase 89 U/L (45-117); Anion Gap 8 (5-15); BUN 31 mg/dL (7-18); BUN/Creat Ratio 21.5 RATIO (10-20); Calcium,Total 10.2 mg/dL (8.5-10.1); Chloride 107 mmol/L (98-107); Creatinine, Serum 1.44 mg/dL (0.55-1.02); EST Glomerular Filtration Rate 38 mL/min (>60); Est Glom Filt Rate - Afr Amer 46 mL/min (>60); Estimated Creatinine Clearance 24.62 ml/min; Globulin 3.8 g/dL (2.2-4.2); Glucose 265 mg/dL (74-106); Potassium 4.1 mmol/L (3.5-5.1); Protein, Total 6.4 g/dL (6.4-8.2); Sodium Level 141 mmol/L (136-145)
[2022-07-28 06:50] LABS: Bedside Glucose 261 mg/dL (74-106)
[2022-07-28] MEDS: Spironolactone 25 MG Tablet PO ×2 (08:32→22:55)
[2022-07-28] MEDS: Labetalol 100 MG Tablet 50 MG PO ×2 (08:32→23:03)
[2022-07-28] MEDS: Iron Polysaccharide Complex 150 MG CAPSULE PO (08:32)
[2022-07-28] MEDS: Furosemide 80 MG Tablet PO (08:33)
--- NOTE | 2022-07-28 10:08 | PN.HOSP_ITS ---
Subjective Subjective DOS 07/28/22 CC: Abd aching Ms Ann is a 72y/o female who presented 07/26 with hepatic encephalopathy. Today she reports not remembering coming in but doesn't herself think she's confused, though was unsure where she was or the date. Reports vague abdominal discomfort but denies changes in her bowels or bladder. Denies n/v, reports eating. No chest pain or SOB. No HARRISON, no changes in vision reported Objective Data Objective Data Vital Signs: Vital Signs Temp Pulse Resp BP Pulse Ox O2 Del Method O2 Flow Rate 98.1 F 76 18 149/49 H 100 Room Air 3 07/28/22 08:31 07/28/22 08:31 07/28/22 08:31 07/28/22 08:31 07/28/22 09:12 07/28/22 08:31 07/26/22 22:00 Oxygen Flow Rate (L/min) 3 Oxygen Delivery Method Room Air Weight: 60.146 kg Body Mass Index (BMI) 25.9 Intake & Output: Intake and Output for Last 24 Hours 07/26/22 07/27/22 07/28/22 23:59 23:59 23:59 Intake Total 920 / 920 250 / 250 Output Total 650 / 650 1650 / 1650 500 / 500 Balance -650 / -650 -730 / -730 -250 / -250 Lab / Micro Data Result Diagrams: 07/28/22 05:55 07/28/22 05:55 Labs: Laboratory Results - last 24 hr 07/27/22 06:19: POC Glucose 242 H 07/27/22 11:28: POC Glucose 255 H 07/27/22 16:32: POC Glucose 177 H 07/27/22 22:41: POC Glucose 321 H 07/28/22 05:55: WBC 6.4, RBC 3.44 L, Hgb 9.6 L, Hct 29.4 L, MCV 85.5, MCH 27.9, MCHC 32.7, RDW Std Deviation 51.7 H, RDW Coeff of Jordan 16.9 H, Plt Count 101 L, MPV 10.8, Immature Gran % (Auto) 0.200, Neut % (Auto) 54.9, Lymph % (Auto) 24.4, [place] % (Auto) 10.0, Eos % (Auto) 9.6 H, Baso % (Auto) 0.9, Absolute Neuts (auto) 3.5, Absolute Lymphs (auto) 1.57, Nucleated RBC % 0 07/28/22 05:55: Sodium 141, Potassium 4.1, Chloride 107, Carbon Dioxide 26.0, Anion Gap 8, BUN 31 H, Creatinine 1.44 H, Estim Creat Clear Calc 24.62, Est GFR (MDRD) Af Amer 46 L, Est GFR (MDRD) Non-Af 38 L, BUN/Creatinine Ratio 21.5 H, Glucose 265 H, Calcium 10.2 H, Total Bilirubin 0.90, AST 20, ALT 21, Alkaline Phosphatase 89, Total Protein 6.4, Albumin 2.6 L, Globulin 3.8, Albumin/Globulin Ratio 0.7 L 07/28/22 06:18: POC Glucose 261 H Micro: Microbiology 07/26/22 11:15 Urine, Random Urine Culture - Final Enterococcus faecalis Physical Exam Const alert and no apparent distress Constitutional Narrative: Oriented to self, not to place or year HEENT normocephalic and head/scalp atraumatic Eyes Eyes Narrative: EOM grossly intact, anicteric Neck supple Neck Narrative: no goiter appreciated Resp normal respiratory effort and clear to auscultation bilaterally Cardio regular rate and regular rhythm GI soft to palpation GI Narrative: distended, not tender on palpation, bowel sounds distant Extremity Extremity Narrative: No edema appreciated Neuro moves all extremities Neuro Narrative: No overt focal deficits appreciated, no nystagmus, no singificant dysmetria on finger to nose test, no asterixis Psych Psych Narrative: Cooperative Assessment & Plan Assessment/Plan (1) Acute hepatic encephalopathy: PLAN: Plan #Acute hepatic encephalopathy * patient on lactulose and rifaximin * Ammonia down to 37 from 113, no asterixis noted * Unclear baseline orientation, pt appropriate and conversational but difficulty with orientation question * per discussion with gastroenterology, there is concern about whether she has really been compliant with her lactulose * consult gastroenterology as family is concerned about recurrent admissions for acute hepatic encephalopathy in setting of TIPS placement in december 2021. * GI recs lactulose and rifaximin continued, outpt capsul endoscopy, and likely need to get TIPS reversed * Follows with [facility] per pt #History of nonalcoholic liver cirrhosis * On rifaximin and spironolactone as well as torsemide * s/p TIPS procedure. Gastroenterology now advising that TIPS be reversed due to recurrent encephalopathy * MLD 13 * Continue lasix and spironolactone * #Hypertension: On ramipril and labetalol #Hyperlipidemia: On atorvastatin #Type 2 diabetes mellitus: On glimepiride. Hold for now. Insulin sliding scale. Accu-Cheks ACH S. # Chronic normocitic anemia- appears to be baseline. On iron # Chronic thrombocytopenia- appears basleine, likely 2/2 cirrohsis #CKD III- 1.44, appears new baseline since may. Supportive care #Hypercalcemia- would benefit from outpatient evaluation DVT prophylaxis: SCDs CODE STATUS: Full code Charges/Coding Visit Charges Inpatient E&M: 60152 Subs Hosp L2
--- NOTE | 2022-07-28 10:39 | CASEMGMT ---
LISA SALCIDO Readmission Note Previous Admission:? 07/18/22-07/20/2022? Diagnosis:? acute hepatic encephalopathy DC Disposition: Home with? [facility] Current Admission? Current Diagnosis: ?acute hepatic encephalopathy Pt presented to ER from home with confusion. Pt admitted recently with the same. Pt states she is taking her lactulose as ordered since hospital stay. She states her son sets up her meds for her and she takes them. Spoke with pt who also confirms the same. He states that prior to last hospital stay the dose of lactulose had been decreased by PCP. Pt has not had an appt with PCP for follow up since last hospital stay. does not want a follow up d/t previous lactulose dosage change which he believes is why pt was rehospitalized last time. Encouraged PCP follow up. Pt is active with [facility] SN, PT and OT services. Pt would like to continue this at al and also agreed. Pt to bring portable oxygen tank in upon dc. Verified liter flow with Thaddeus Toscano at [facility] aware pt hospitalized, and will accept pt back for services at al. DC PLAN: Home with [facility] SN, PT and OT.
--- NOTE | 2022-07-28 11:16 | CASEMGMT ---
Pt screened with [facility] Palliative Care Screening Tool, pt met criteria. Order received. Referral emailed at this time to palliative care.
[2022-07-28 12:00] LABS: Bedside Glucose 338 mg/dL (74-106)
[2022-07-28] MEDS: Glucerna Shake 120 ML LIQUID PO (15:49)
[2022-07-28 17:05] LABS: Bedside Glucose 281 mg/dL (74-106)
--- NOTE | 2022-07-28 17:35 | PCM.PROGNOTE ---
Subjective Subjective Patient is more awake and alert at this time. She is tolerating a diet. The current regimen is lactulose every 6 hours with 3 doses during the day and nightly at night. Objective Data Objective Data Vital Signs: Vital Signs Temp Pulse Resp BP Pulse Ox O2 Del Method O2 Flow Rate 98.2 F 80 18 151/40 H 96 Room Air 3 07/28/22 15:44 07/28/22 15:44 07/28/22 15:44 07/28/22 15:44 07/28/22 15:44 07/28/22 15:44 07/26/22 22:00 Oxygen Flow Rate (L/min) 3 Oxygen Delivery Method Room Air Weight: 132 lb 9.588 oz Body Mass Index (BMI) 25.9 Intake & Output: Intake and Output for Last 24 Hours 07/26/22 07/27/22 07/28/22 23:59 23:59 23:59 Intake Total 920 / 920 730 / 730 Output Total 650 / 650 1650 / 1650 1100 / 1100 Balance -650 / -650 -730 / -730 -370 / -370 Lab / Micro Data Result Diagrams: 07/28/22 05:55 07/28/22 05:55 Labs: Laboratory Results - last 24 hr 07/27/22 06:19: POC Glucose 242 H 07/27/22 22:41: POC Glucose 321 H 07/28/22 05:55: WBC 6.4, RBC 3.44 L, Hgb 9.6 L, Hct 29.4 L, MCV 85.5, MCH 27.9, MCHC 32.7, RDW Std Deviation 51.7 H, RDW Coeff of [place] 16.9 H, Plt Count 101 L, MPV 10.8, Immature Gran % (Auto) 0.200, Neut % (Auto) 54.9, Lymph % (Auto) 24.4, [place] % (Auto) 10.0, Eos % (Auto) 9.6 H, Baso % (Auto) 0.9, Absolute Neuts (auto) 3.5, Absolute Lymphs (auto) 1.57, Nucleated RBC % 0 07/28/22 05:55: Sodium 141, Potassium 4.1, Chloride 107, Carbon Dioxide 26.0, Anion Gap 8, BUN 31 H, Creatinine 1.44 H, Estim Creat Clear Calc 24.62, Est GFR (MDRD) Af Amer 46 L, Est GFR (MDRD) Non-Af 38 L, BUN/Creatinine Ratio 21.5 H, Glucose 265 H, Calcium 10.2 H, Total Bilirubin 0.90, AST 20, ALT 21, Alkaline Phosphatase 89, Total Protein 6.4, Albumin 2.6 L, Globulin 3.8, Albumin/Globulin Ratio 0.7 L 07/28/22 06:18: POC Glucose 261 H 07/28/22 11:34: POC Glucose 338 H 07/28/22 16:43: POC Glucose 281 H Micro: Microbiology 07/26/22 11:15 Urine, Random Urine Culture - Final Enterococcus faecalis Physical Exam Const alert and no apparent distress Constitutional Narrative: Oriented to self, not to place or year HEENT normocephalic and head/scalp atraumatic Eyes Eyes Narrative: EOM grossly intact, anicteric Neck supple Neck Narrative: no goiter appreciated Resp normal respiratory effort and clear to auscultation bilaterally Cardio regular rate and regular rhythm GI soft to palpation GI Narrative: distended, not tender on palpation, bowel sounds distant Extremity Extremity Narrative: No edema appreciated Neuro moves all extremities Neuro Narrative: No overt focal deficits appreciated, no nystagmus, no singificant dysmetria on finger to nose test, no asterixis Psych Psych Narrative: Cooperative Assessment & Plan Assessment/Plan (1) Hyperammonemia: PLAN: Hyperammonia anemia is doing a lot better. I will repeat her ammonia level. She is not showing any signs of GI bleeding, ascites, or worsening renal disease which would allow for increased ammonia levels. Continue current regimen with lactulose every 6 hours. Recommend to continue Xifaxan 550 mg twice a day. (2) Cirrhosis: PLAN: Decompensated cirrhosis with hyperammonemia. No signs of any other decompensated disease at this time. She is status post TIPS procedure with a low meld of 6. Charges/Coding Visit Charges Inpatient E&M: 06964 Subs Hosp L2
[2022-07-28] MEDS: Lactulose 20 GM/30 ML UDC 200 GM RC (22:54)
[2022-07-28] MEDS: Atorvastatin Calcium 40 MG Tablet PO (22:55)
[2022-07-28 23:36] LABS: Bedside Glucose 282 mg/dL (74-106)
[2022-07-29 04:29] VITALS: PULSE 90
[2022-07-29 05:43] LABS: Absolute Lymphocyte Count 1.62 X10^3/uL (0.83-4.51); Absolute Neutrophil Count 3.3 X10^3/uL (2.0-7.7); Basophil# 0.05 X10^3/uL; Basophil% 0.8 % (0-1); Eosinophil# 0.59 X10^3/uL; Eosinophils% 9.6 % (0-5); Hematocrit 28.7 % (37-47); Hemoglobin 9.4 g/dL (12.0-15.0); Lymphocyte # 1.62 X10^3/ul (0.83-4.51); Lymphocyte % 26.3 % (19-41); Mean Corp Hgb Conc 32.8 g/dL (32-36); Mean Corpuscular Hgb 27.7 pg (27.0-32.0); Mean Corpuscular Volume 84.7 fL (81-99); Mean Platelet Vol. 11.5 fl (6.2-12.0); Monocyte# 0.61 X10^3/uL; Monocyte% 9.9 % (0-10); NRBC Flagged by Analyzer 0 % (0-5); Neutrophil # 3.27 X10^3/uL (2.7-7.7); Neutrophil % 53.1 % (47-70); Platelet Count 109 K/mm3 (150-450); RBC Distribution Width CV 16.8 % (11.6-14.6); RBC Distribution Width SD 51.6 fl (35.1-43.9); Red Blood Count 3.39 M/mm3 (4.2-5.4); White Blood Count 6.2 K/mm3 (4.4-11.0)
[2022-07-29 06:00] VITALS: BP 132/47; PULSE 91; RESP 16; TEMP 37.2; O2SAT 93
[2022-07-29 06:10] LABS: ALB/GLOB Ratio 0.7 RATIO (0.9-2.4); AST(SGOT) 24 U/L (15-37); Alanine Aminotransfer ALT/SGPT 25 U/L (13-56); Albumin, Serum 2.7 g/dL (3.2-5.0); Alkaline Phosphatase 94 U/L (45-117); Anion Gap 6 (5-15); BUN 28 mg/dL (7-18); BUN/Creat Ratio 18.8 RATIO (10-20); Calcium,Total 10.3 mg/dL (8.5-10.1); Chloride 106 mmol/L (98-107); Creatinine, Serum 1.49 mg/dL (0.55-1.02); EST Glomerular Filtration Rate 36 mL/min (>60); Est Glom Filt Rate - Afr Amer 44 mL/min (>60); Estimated Creatinine Clearance 23.79 ml/min; Globulin 3.8 g/dL (2.2-4.2); Glucose 242 mg/dL (74-106); Phosphorus 3.7 mg/dL (2.5-4.9); Potassium 4.4 mmol/L (3.5-5.1); Protein, Total 6.5 g/dL (6.4-8.2); Sodium Level 138 mmol/L (136-145)
[2022-07-29] MEDS: Insulin Lispro 100 UNIT/ML INSULN.PEN SC ×2 (06:42→11:13)
[2022-07-29] MEDS: Lactulose 20 GM/30 ML UDC PO ×2 (06:42→12:26)
[2022-07-29 07:05] LABS: Bedside Glucose 219 mg/dL (74-106)
[2022-07-29 07:24] VITALS: PULSE 73
[2022-07-29 09:35] VITALS: BP 133/49; PULSE 85; RESP 16; TEMP 37.2; O2SAT 95
[2022-07-29] MEDS: Spironolactone 25 MG Tablet PO (09:37)
[2022-07-29] MEDS: Labetalol 100 MG Tablet 50 MG PO (09:38)
[2022-07-29] MEDS: Furosemide 80 MG Tablet PO (09:38)
[2022-07-29] MEDS: Iron Polysaccharide Complex 150 MG CAPSULE PO (09:38)
--- NOTE | 2022-07-29 11:14 | PCM.DC ---
Discharge Instructions Diet Discharge Diet: 2000 mg Sodium Diet Activity Discharge Activity: Return to Normal Activity Follow Up Care Test Results: Test results from this visit will be discussed in further detail at your follow-up appointment, if applicable. Discharge Plan Admission Admit Date/Time: 07/26/22 12:00 Primary Reason for Your Visit: Confusion Attending Provider: Ashley Yi Primary Care Provider: Josiah Smith Consulting Providers: Floridalma Palacio Instructions Patient Instructions: Hepatic Encephalopathy, Cirrhosis of Liver Dc Additional Instructions / Restrictions: *Please take this with you to your next doctors appointment* 1. Please call upon discharge to schedule close follow up with your GI doctor at [facility]. It was advised to consider a capsule endoscopy as an outpatient, please bring this with you to your GI appointment to discuss 2. It is important that you take lactulose four times daily and rifaximin 550mg twice daily 3. Your glimepiride was decreased to 2mg to avoid low blood sugar. Please discuss with your primary care physician as they may further adjust or change medications 4. Your calcium was high during your stay, please discuss this with your primary care physician -Please call your primary care provider's office upon discharge to schedule a hospital follow up within 1 week. -For any concerning signs or symptoms please call 911 or proceed to the nearest emergency department Discharge Orders/Prescriptions Prescriptions: Continued atorvastatin [Lipitor] 40 mg Tablet 40 mg PO QHS spironolactone 25 mg tablet 25 mg PO BID labetalol 100 mg tablet 50 mg PO BID lactulose 20 gram/30 mL solution 20 g PO Q6H polysaccharide iron complex [Ferrex 150] 150 mg iron Capsule 150 mg PO DAILYCM Qty: 90 0RF torsemide 20 mg tablet 40 mg PO DAILY Label Comments: Take 2 tablets by mouth once daily. ramipril 5 mg Capsule 5 mg PO QHS tizanidine 4 mg tablet 4 mg PO PRN PRN (Reason: Muscle Pain) Label Comments: Take 1 tablet by mouth every 8 hours as needed (muscle spasms) for up to 10 days. Changed glimepiride 4 mg tablet 2 mg PO DAILY Qty: 15 0RF Label Comments: Take 2-3 tablets by mouth as needed. Xifaxan 550 mg tablet 550 mg PO BID 30 Days Qty: 60 0RF Label Comments: TAKE 1 TABLET BY MOUTH TWICE DAILY Referrals / Follow Up: [facility], Gastroenterology [Other] - In 1 Week (Please follow with your stomach doctor upon discharge, call to schedule a hospital follow up) Josiah Smith MD [Primary Care Provider] - Disposition Disposition (needs filled in before D/C Order can be placed): Home Health Service
[2022-07-29 11:20] LABS: Bedside Glucose 359 mg/dL (74-106)
--- NOTE | 2022-07-29 11:58 | CHAPLAIN ---
Type of Pastoral Visit _x__ Initial Visit ___ Follow-up Visit ___ On-call Visit ___ General Patient Visit ___ Spiritual Assessment ___ Family Conference ___ Bereavement ___ Rapid Response ___ Code Blue ___ Other (describe below) Pastoral Care Referral From _x__ Patient ___ Family ___ Nurse ___ Physician ___ Mark Up Designer ___ Print Room Worker ___ Other (describe below) Sacrament/Intervention ___ Active listening ___ Anointing ___ Rastafari ___ Bereavement ___ Communion ___ Deepa exploration ___ ___ Life review _x__ Prayer ___ Reconciliation ___ Sacrament of Sick _x__ Supportive presence ___ Wedding ___ Other (describe below) Pastoral Comments patient and spouse welcome presence and prayers of this parboiler; pt is focused on eating her lunch and is hopeful about going home today; both state that pt is doing better
--- NOTE | 2022-07-29 12:05 | CASEMGMT ---
Palliative Care will see pt on at her home.
--- NOTE | 2022-07-29 12:17 | PHA.DC.MR ---
Pharmacy Service has performed discharge medication reconciliation for this patient. The patient's discharge medication list was reviewed for discrepancies and discrepancies were resolved. Home Medications atorvastatin 40 mg tablet (Lipitor) 40 mg PO QHS cholesterol 02/09/22 labetalol 100 mg tablet 50 mg PO BID Check with primary doctor 05/26/22 lactulose 20 gram/30 mL oral solution 20 g PO Q6H Check with primary doctor 05/26/22 spironolactone 25 mg tablet 25 mg PO BID Check with primary doctor 05/26/22 polysaccharide iron complex 150 mg iron capsule (Ferrex) 150 mg PO DAILYCM #90 caps 05/28/22 ramipril 5 mg capsule 5 mg PO QHS Check with primary doctor 07/18/22 torsemide 20 mg tablet 40 mg PO DAILY 07/18/22 tizanidine 4 mg tablet 4 mg PO PRN PRN Muscle Pain 07/26/22 glimepiride 4 mg tablet 2 mg PO DAILY #15 tabs 07/29/22 rifaximin 550 mg tablet (Xifaxan) 550 mg PO BID Check with primary doctor 30 days #60 tabs 07/29/22
[2022-07-29] MEDS: Glucerna Shake 120 ML LIQUID PO (12:26)
[2022-07-29] MEDS: Menthol/Lanolin/Calamine/Znox 113 GM Tube 1 APPLIC TOPICAL (12:26)
[2022-07-29 12:52] VITALS: BP 118/55; PULSE 82; RESP 16; TEMP 36.9; O2SAT 95
[2022-07-29 14:35] LABS: PTHIN 44.1 pg/mL (18.4-80.1)
--- NOTE | 2022-07-29 18:33 | PCM.DC.SUM ---
Providers Date of Admission: 07/26/22 Date of Discharge: 07/29/22 Primary Care Physician: Dr. Josiah Smith MD Consultations 07/26/22 13:29 Consult: Gastroenterology Routine Consulting Provider: [facility] Reason for Consult: recurrent hepatic encephalopathy EMERGENT Consult: No MD Notified: Yes Date Notified: 07/26/22 Time Notified: 13:25 Method of Notification: Text Reason For Visit: ACUTE HEPATIC ENCEPHALOPATHY Diagnosis Discharge Diagnosis (1) Hyperammonemia: Status: Acute Code(s): E72.20 - Disorder of urea cycle metabolism, unspecified (2) Cirrhosis: Status: Acute Code(s): K74.60 - Unspecified cirrhosis of liver Plan #Acute hepatic encephalopathy #History of nonalcoholic liver cirrhosis #Hypertension: #Hyperlipidemia: #Type 2 diabetes mellitus: # Chronic normocitic anemia- # Chronic thrombocytopenia- #CKD III- #Hypercalcemia Medications at Discharge Home Medications atorvastatin 40 mg tablet (Lipitor) 40 mg PO QHS cholesterol 02/09/22 labetalol 100 mg tablet 50 mg PO BID Check with primary doctor 05/26/22 lactulose 20 gram/30 mL oral solution 20 g PO Q6H Check with primary doctor 05/26/22 spironolactone 25 mg tablet 25 mg PO BID Check with primary doctor 05/26/22 polysaccharide iron complex 150 mg iron capsule (Ferrex) 150 mg PO DAILYCM #90 caps 05/28/22 ramipril 5 mg capsule 5 mg PO QHS Check with primary doctor 07/18/22 torsemide 20 mg tablet 40 mg PO DAILY 07/18/22 tizanidine 4 mg tablet 4 mg PO PRN PRN Muscle Pain 07/26/22 glimepiride 4 mg tablet 2 mg PO DAILY #15 tabs 07/29/22 rifaximin 550 mg tablet (Xifaxan) 550 mg PO BID Check with primary doctor 30 days #60 tabs 07/29/22 Hospital Course Summary of Care Provided Minutes Spent on Discharge: 36 Hospital Course: MICHAEL HENLEY, is a 72 F with a PMH of non alcoholic liver cirrhosis, s/p TIPS, hepatic encephalopathy, and thrombocytopenia who presented to [facility] on 07/26 w/ complaint of confusion. She has a history of hepatic encephalopathy and was recently discharged on 07/20/2022 after being managed for acute hepatic encephalopathy. found her nonverbal and confused. He therefore brought her in to the ED as she was usually encephalopathic whenever she became so confused.? History was mainly taken from and daughter at the time.? According to the daughter, patient has been in the hospital numerous times ever since she had the TIPS procedure done in December 2021.? She has had repeated episodes of hepatic encephalopathy and states that he has been recommended by the [id number] armor crewman that the TIPS procedure be reversed.?She was found to have an ammonia of 113 on admission and diagnosed with hepatic encephalopathy, GI consulted. She was resumed on lactulose QID and rifaximin 550 BID with improvement of ammonia and return to baseline mental status, ?compliance. She follows with [facility] and has appt coming up, after return to baseline pt agreeable to d/c with outpt follow up. takes care of her and was comfortable w/ d/c home and family lives nearby and helps as well. Advised pt discuss elevated Ca with PCP for further workup. Ashley Yi MD Physical Exam Const alert Constitutional Narrative: Oriented to person, place, and year HEENT normocephalic and head/scalp atraumatic Eyes Eyes Narrative: EOM grossly intact, anicteric Neck supple Resp normal respiratory effort and clear to auscultation bilaterally Cardio regular rate and regular rhythm GI soft to palpation and non-tender GI Narrative: slightly distended, unchanged Extremity Extremity Narrative: No edema appreciated Neuro moves all extremities Neuro Narrative: No overt focal deficits appreciated Psych Psych Narrative: Cooperative Weight / BMI Weight Weight: 60.146 kg Body Mass Index (BMI) 25.9 ABG / Lab / Microbiology Data Result Diagrams: 07/29/22 05:13 07/29/22 05:13 Laboratory: Laboratory Results - last 24 hr 07/28/22 22:57: POC Glucose 282 H 07/29/22 05:13: WBC 6.2, RBC 3.39 L, Hgb 9.4 L, Hct 28.7 L, MCV 84.7, MCH 27.7, MCHC 32.8, RDW Std Deviation 51.6 H, RDW Coeff of Jordan 16.8 H, Plt Count 109 L, MPV 11.5, Immature Gran % (Auto) 0.300, Neut % (Auto) 53.1, Lymph % (Auto) 26.3, Millard % (Auto) 9.9, Eos % (Auto) 9.6 H, Baso % (Auto) 0.8, Absolute Neuts (auto) 3.3, Absolute Lymphs (auto) 1.62, Nucleated RBC % 0 07/29/22 05:13: Sodium 138, Potassium 4.4, Chloride 106, Carbon Dioxide 26.0, Anion Gap 6, BUN 28 H, Creatinine 1.49 H, Estim Creat Clear Calc 23.79, Est GFR (MDRD) Af Amer 44 L, Est GFR (MDRD) Non-Af 36 L, BUN/Creatinine Ratio 18.8, Glucose 242 H, Calcium 10.3 H, Phosphorus 3.7, Total Bilirubin 0.90, AST 24, ALT 25, Alkaline Phosphatase 94, Total Protein 6.5, Albumin 2.7 L, Globulin 3.8, Albumin/Globulin Ratio 0.7 L 07/29/22 05:13: Ammonia 47.0 H, PTH Intact Cancelled 07/29/22 05:13: PTH Intact 44.1 07/29/22 06:41: POC Glucose 219 H 07/29/22 10:59: POC Glucose 359 H Microbiology: Microbiology 07/26/22 11:15 Urine, Random Urine Culture - Final Enterococcus faecalis D/C Instructions Discharge Diet: 2000 mg Sodium Diet Meaningful Use Info Meaningful Use Diagnoses (Choose all that apply): None applicable Discharge Plan Admission Admit Date/Time: 07/26/22 12:00 Primary Reason for Your Visit: Confusion Attending Provider: Ashley Yi Primary Care Provider: Josiah Smith Consulting Providers: Floridalma Palacio Instructions Patient Instructions: Hepatic Encephalopathy, Cirrhosis of Liver Dc Additional Instructions / Restrictions: *Please take this with you to your next doctors appointment* 1. Please call upon discharge to schedule close follow up with your GI doctor at [facility]. It was advised to consider a capsule endoscopy as an outpatient, please bring this with you to your GI appointment to discuss 2. It is important that you take lactulose four times daily and rifaximin 550mg twice daily 3. Your glimepiride was decreased to 2mg to avoid low blood sugar. Please discuss with your primary care physician as they may further adjust or change medications 4. Your calcium was high during your stay, please discuss this with your primary care physician -Please call your primary care provider's office upon discharge to schedule a hospital follow up within 1 week. -For any concerning signs or symptoms please call 911 or proceed to the nearest emergency department Discharge Orders/Prescriptions Prescriptions: Continued atorvastatin [Lipitor] 40 mg Tablet 40 mg PO QHS spironolactone 25 mg tablet 25 mg PO BID labetalol 100 mg tablet 50 mg PO BID lactulose 20 gram/30 mL solution 20 g PO Q6H polysaccharide iron complex [Ferrex 150] 150 mg iron Capsule 150 mg PO DAILYCM Qty: 90 0RF torsemide 20 mg tablet 40 mg PO DAILY Label Comments: Take 2 tablets by mouth once daily. ramipril 5 mg Capsule 5 mg PO QHS tizanidine 4 mg tablet 4 mg PO PRN PRN (Reason: Muscle Pain) Label Comments: Take 1 tablet by mouth every 8 hours as needed (muscle spasms) for up to 10 days. Changed glimepiride 4 mg tablet 2 mg PO DAILY Qty: 15 0RF Xifaxan 550 mg tablet 550 mg PO BID 30 Days Qty: 60 0RF Label Comments: TAKE 1 TABLET BY MOUTH TWICE DAILY Referrals / Follow Up: [facility], Gastroenterology [Other] - In 1 Week (Please follow with your stomach doctor upon discharge, call to schedule a hospital follow up) Josiah Smith MD [Primary Care Provider] - Disposition Disposition (needs filled in before D/C Order can be placed): Home Health Service Charges/Coding Visit Charges Inpatient E&M: 65457 Disch Hosp
[2022-07-31 17:32] LABS: Vitamin D 1,25-Dihydroxy 24.7 pg/mL (24.8-81.5)
== END 2022-07-29 13:07 | disposition home health service (06) | DRG 642 ==
LOC: ED 11:50 → MS3 12:46
PROVIDERS: Admitting Provider Student in an Organized Health Care Education/Training Program; Emergency Provider Emergency Medicine; PCP Family Medicine; Visit Provider Internal Medicine
DX: E72.20 Disorder of urea cycle metabolism, unspecified (principal); D69.6 Thrombocytopenia, unspecified; K76.82 Hepatic encephalopathy; E11.22 Type 2 diabetes mellitus with diabetic chronic kidney disease; D64.9 Anemia, unspecified; E78.5 Hyperlipidemia, unspecified; K74.60 Unspecified cirrhosis of liver; J44.9 Chronic obstructive pulmonary disease, unspecified; N18.32 Chronic kidney disease, stage 3b; E88.09 Other disorders of plasma-protein metabolism, not elsewhere classified; E83.52 Hypercalcemia; I12.9 Hypertensive chronic kidney disease with stage 1 through stage 4 chronic kidney disease, or unspecified chronic kidney disease; K21.9 Gastro-esophageal reflux disease without esophagitis; F32.A Depression, unspecified; Z79.82 Long term (current) use of aspirin; Z79.899 Other long term (current) drug therapy; Z87.891 Personal history of nicotine dependence
CPT/HCPCS: 36415; 51702; 71045; 80053; 81001; 82140; 82652; 82962; 83605; 83970; 84100; 85025; 85610; 85730; 87077; 87086; 87088; 87186; 97162; 97165; 97530; 97535; 99285; A4216; J2405

== ENCOUNTER 2022-09-13 19:12 | Emergency (ER) | payer MEDICARE, MEDICAID, SELFPAY ==
[2022-09-13 19:23] VITALS: BP 168/49; PULSE 88; RESP 24; TEMP 36.2; O2SAT 96; BMI 25.4
[2022-09-13 19:27] VITALS: BP 168/49; PULSE 88; RESP 24; TEMP 36.2; O2SAT 96
[2022-09-13 22:15] LABS: Bedside Glucose 481 mg/dL (74-106)
--- NOTE | 2022-09-13 22:17 | EDS_ITS ---
HPI History of Present Illness Chief Complaint: Hyperglycemia Informant: patient and spouse/S.O. Narrative Narrative: Patient presents today that she just does not feel good. She states she has not felt good for quite some time and has stomach problems secondary to cirrhosis. She states she called EMS tonight because her blood sugars reading high. She is unable to tell me when her last blood sugar was normal. She is on oral intake I see mixed. She states she is an appointment in [place] to talk to someone about possibly getting started on insulin. She does not know when this appointment is. She denies fever or chills. She does report mild cough with yellow sputum production. She reports nausea and vomiting if she gets hungry. 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 Thrombocytopenia Home Medications atorvastatin 40 mg tablet (Lipitor) 40 mg PO QHS cholesterol 02/09/22 [History Last Taken 07/17/22] labetalol 100 mg tablet 50 mg PO BID Check with primary doctor 05/26/22 [History Last Taken 07/17/22] lactulose 20 gram/30 mL oral solution 20 g PO Q6H Check with primary doctor 05/26/22 [History Last Taken 07/17/22] spironolactone 25 mg tablet 25 mg PO BID Check with primary doctor 05/26/22 [History Last Taken 07/17/22] polysaccharide iron complex 150 mg iron capsule (Ferrex) 150 mg PO DAILYCM #90 caps 05/28/22 [Rx Last Taken Unknown] ramipril 5 mg capsule 5 mg PO QHS Check with primary doctor 07/18/22 [History Last Taken 07/17/22] torsemide 20 mg tablet 40 mg PO DAILY 07/18/22 [History Last Taken Unknown] tizanidine 4 mg tablet 4 mg PO PRN PRN Muscle Pain 07/26/22 [History Last Taken Unknown] glimepiride 4 mg tablet 2 mg PO DAILY #15 tabs 07/29/22 [Rx Last Taken Unknown] rifaximin 550 mg tablet (Xifaxan) 550 mg PO BID Check with primary doctor 30 days #60 tabs 07/29/22 [Rx Last Taken Unknown] cephalexin 500 mg capsule 500 mg PO Q12 #14 caps 09/14/22 [Rx Last Taken Unknown] Allergy/AdvReac Type Severity Reaction Status Date / Time suture Allergy Mild rash/ Verified 07/26/22 09:52 wound dehisence amoxicillin Allergy Unknown Verified 07/26/22 09:52 azithromycin Allergy Shortness Verified 07/26/22 09:52 of breath celecoxib [From Celebrex] Allergy Other Verified 07/26/22 09:52 ciprofloxacin HCl Allergy Shortness Verified 07/26/22 09:52 [From Cipro] of breath cortisone Allergy Swelling Verified 07/26/22 09:52 doxycycline Allergy Shortness Verified 07/26/22 09:52 of breath erythromycin base Allergy Unknown Verified 07/26/22 09:52 fexofenadine [From Ashlee] Allergy Unknown Verified 07/26/22 09:52 ibuprofen Allergy Shortness Verified 07/26/22 09:52 of breath Iodinated Contrast Media Allergy Shortness Verified 07/26/22 09:52 [DYEE] of breath iodine Allergy Shortness Verified 07/26/22 09:52 of breath levofloxacin [From Levaquin] Allergy Shortness Verified 07/26/22 09:52 of breath lorazepam [From Ativan] Allergy Shortness Verified 07/26/22 09:52 of breath nitrofurantoin Allergy Shortness Verified 07/26/22 09:52 macrocrystalline of breath [From Macrobid] Penicillins Allergy Shortness Verified 07/26/22 09:52 of breath rofecoxib [From Vioxx] Allergy Unknown Verified 07/26/22 09:52 Sulfa (Sulfonamide Allergy Shortness Verified 07/26/22 09:52 Antibiotics) of breath sulfamethoxazole Allergy Shortness Verified 07/26/22 09:52 [From Bactrim] of breath trimethoprim [From Bactrim] Allergy Shortness Verified 07/26/22 09:52 of breath amlodipine [From Norvasc] AdvReac Upset Verified 07/26/22 09:52 Stomach MISC BP MED Allergy Shortness Uncoded 07/26/22 09:52 of breath Family History Mother Heart disease Brother Heart disease Surgical History History of bilateral salpingo-oophorectomy History of laparoscopic cholecystectomy History of oral surgery S/P TIPS (transjugular intrahepatic portosystemic shunt) Social History household members: spouse Smoking Status: Former smoker alcohol intake: never substance use type: does not use ROS ROS ED Constitutional Constitutional ED: Denies chills or fever(s) Eyes Eyes: Denies change in vision or discharge from eye(s) ENT ENT ED: Denies discharge from eye(s), rhinorrhea or sore throat Cardiovascular Cardiovascular: Denies chest pain or palpitations Respiratory/Chest Respiratory/Chest: Reports cough and sputum; Denies dyspnea Gastrointestinal Gastrointestinal: Reports abdominal pain and nausea; Denies diarrhea or vomiting Genitourinary Genitourinary ED: Denies difficulty urinating or dysuria Musculoskeletal Musculoskeletal: Denies back pain or extremity pain Integumentary Denies Abrasions or rash Neurologic Neurologic: Reports weakness; Denies headache(s) Psychiatric Psychiatric: Denies anxiety or depression Allergic/Immunologic Allergic/Immunologic ED: Denies lip swelling or urticaria EXAM Physical Exam Const Vital Signs: 09/13/22 19:23 09/13/22 19:27 09/13/22 22:01 Temperature 97.1 F L 97.1 F L Temperature Source Temporal Temporal Pulse Rate 88 88 Respiratory Rate 24 H 24 H Respiratory Effort Normal Non-Labored Respiratory Pattern Normal Blood Pressure 168/49 H 168/49 H Blood Pressure Mean 88 88 Pulse Ox 96 96 Oxygen Delivery Method Room Air Room Air 09/13/22 23:54 09/14/22 01:12 09/14/22 01:12 Temperature Temperature Source Pulse Rate 88 Respiratory Rate Respiratory Effort Respiratory Pattern Blood Pressure 132/74 H Blood Pressure Mean Pulse Ox 98 99 97 Oxygen Delivery Method Room Air Room Air Positive well nourished and well developed General Appearance ED: well developed HEENT Reports normocephalic and head/scalp atraumatic Eyes PERRL and EOMs intact bilaterally Neck supple Chest Wall inspection of chest normal and palpation of chest normal Resp normal respiratory effort and clear to auscultation bilaterally Cardio regular rate and regular rhythm GI normal to inspection, nondistended, normoactive bowel sounds Palpation: soft Back/Spine no CVA tenderness Extremity normal to inspection Neuro oriented x3 and no sensory deficits noted Sensorium / Orientation: alert Motor Exam: strength 5/5 throughout Psych mental status grossly normal Skin no rashes or lesions noted MDM MDM MDM Narrative Medical decision making narrative: Patient was given a liter IV fluids. Lab work obtained along with urinalysis. Given the patient's cough portable chest x-ray was obtained along with swabs for COVID and influenza Lab Data Attestation: I reviewed the patient's lab results. Labs: Laboratory Results - last 24 hr 09/13/22 09/13/22 09/13/22 21:50 22:34 22:34 WBC 5.6 RBC 3.50 L Hgb 10.1 L Hct 28.9 L MCV 82.6 MCH 28.9 MCHC 34.9 RDW Std Deviation 48.5 H RDW Coeff of [place] 16.1 H Plt Count 126 L MPV 10.9 Immature Gran % (Auto) 0.400 Neut % (Auto) 59.9 Lymph % (Auto) 18.9 L [place] % (Auto) 11.1 H Eos % (Auto) 8.4 H Baso % (Auto) 1.3 H Absolute Neuts (auto) 3.4 Absolute Lymphs (auto) 1.06 Nucleated RBC % 0 Sodium 135 L Potassium 4.4 Chloride 94 L Carbon Dioxide 33.0 H Anion Gap 8 BUN 30 H Creatinine 1.48 H Estim Creat Clear Calc 23.95 Est GFR (MDRD) Af Amer 44 L Est GFR (MDRD) Non-Af 37 L BUN/Creatinine Ratio 20.3 H Glucose 526 H* Calcium 10.3 H Total Bilirubin 1.00 Direct Bilirubin 0.31 H AST 26 ALT 33 Alkaline Phosphatase 121 H Total Protein 6.8 Albumin 2.8 L Globulin 4.0 Lipase 555 H Urine Color Urine Clarity Urine pH Ur Specific [place] Urine Protein Urine Glucose (UA) Urine Ketones Urine Occult Blood Urine Nitrite Urine Bilirubin Urine Urobilinogen Ur Leukocyte Esterase Urine RBC Urine WBC Ur Squamous Epith Cells Urine Bacteria Urine Mucus Acetone Level POC Glucose 481 H* 09/13/22 09/13/22 09/14/22 22:34 23:40 00:10 WBC RBC Hgb Hct MCV MCH MCHC RDW Std Deviation RDW Coeff of [place] Plt Count MPV Immature Gran % (Auto) Neut % (Auto) Lymph % (Auto) [place] % (Auto) Eos % (Auto) Baso % (Auto) Absolute Neuts (auto) Absolute Lymphs (auto) Nucleated RBC % Sodium Potassium Chloride Carbon Dioxide Anion Gap BUN Creatinine Estim Creat Clear Calc Est GFR (MDRD) Af Amer Est GFR (MDRD) Non-Af BUN/Creatinine Ratio Glucose Calcium Total Bilirubin Direct Bilirubin AST ALT Alkaline Phosphatase Total Protein Albumin Globulin Lipase Urine Color Yellow Urine Clarity Clear Urine pH 7.0 Ur Specific [place] 1.010 Urine Protein 15 H Urine Glucose (UA) 1000 H Urine Ketones Negative Urine Occult Blood Negative Urine Nitrite Positive H Urine Bilirubin Negative Urine Urobilinogen Normal Ur Leukocyte Esterase 100 H Urine RBC 0 SEEN Urine WBC 0-5 SEEN Ur Squamous Epith Cells 0 SEEN Urine Bacteria 1+ Urine Mucus 0 SEEN Acetone Level NEGATIVE POC Glucose 424 H 09/14/22 00:43 WBC RBC Hgb Hct MCV MCH MCHC RDW Std Deviation RDW Coeff of [place] Plt Count MPV Immature Gran % (Auto) Neut % (Auto) Lymph % (Auto) [place] % (Auto) Eos % (Auto) Baso % (Auto) Absolute Neuts (auto) Absolute Lymphs (auto) Nucleated RBC % Sodium Potassium Chloride Carbon Dioxide Anion Gap BUN Creatinine Estim Creat Clear Calc Est GFR (MDRD) Af Amer Est GFR (MDRD) Non-Af BUN/Creatinine Ratio Glucose Calcium Total Bilirubin Direct Bilirubin AST ALT Alkaline Phosphatase Total Protein Albumin Globulin Lipase Urine Color Urine Clarity Urine pH Ur Specific [place] Urine Protein Urine Glucose (UA) Urine Ketones Urine Occult Blood Urine Nitrite Urine Bilirubin Urine Urobilinogen Ur Leukocyte Esterase Urine RBC Urine WBC Ur Squamous Epith Cells Urine Bacteria Urine Mucus Acetone Level POC Glucose 380 H Radiography Chest X-Ray - ED: 1 View, Read by ED Physician, Chronic Changes and No Infiltrates Diagnostic Testing: Clinical Impression(s) from Imaging Studies Chest X-Ray 09/13/22 22:30 IMPRESSION: No convincing infiltrate. Minimal probable artifact in the medial right upper lobe, the patient is mildly rotated to the right. Otherwise stable chest. Electronically Signed: Yakelin Joyce MD at 23:05 EST , Treatment and Re-Evaluation Narrative: CBC is unremarkable. Chemistry studies reveal a glucose of 526. Sodium is 135 and chloride is 94. Creatinine is 1.48, similar to patient's prior. LFTs are unremarkable and lipase is mildly elevated at 555. Urinalysis reveals 1+ bacteria with positive nitrites. Portable chest x-ray per my interpretation reveals no focal infiltrate. Swab for COVID and influenza is negative. Patient was given 8 units of insulin. 1 hour later blood sugar is 380. She be discharged at this time with prescription for Keflex. She is to continue her normal diabetes medications at home. I did encourage her to call her doctor for further instructions as son states her glimepiride is written as 2 to 3 pills daily as needed. He states this causes confusion and she usually just does not bother taking it at all. Discharge Plan Triage Chief Complaint: Hyperglycemia ED Provider: Petrona Howe Dx/Rx/DC Orders Clinical Impression: UTI (urinary tract infection), Hyperglycemia Instructions: ED Diabetic Hyperglycemia, ED Cystitis Female Adult Prescriptions: New cephalexin 500 mg capsule 500 mg PO Q12 Qty: 14 0RF No Action atorvastatin [Lipitor] 40 mg Tablet 40 mg PO QHS spironolactone 25 mg tablet 25 mg PO BID labetalol 100 mg tablet 50 mg PO BID lactulose 20 gram/30 mL solution 20 g PO Q6H polysaccharide iron complex [Ferrex 150] 150 mg iron Capsule 150 mg PO DAILYCM Qty: 90 0RF torsemide 20 mg tablet 40 mg PO DAILY Label Comments: Take 2 tablets by mouth once daily. ramipril 5 mg Capsule 5 mg PO QHS tizanidine 4 mg tablet 4 mg PO PRN PRN (Reason: Muscle Pain) Label Comments: Take 1 tablet by mouth every 8 hours as needed (muscle spasms) for up to 10 days. glimepiride 4 mg tablet 2 mg PO DAILY Qty: 15 0RF Xifaxan 550 mg tablet 550 mg PO BID 30 Days Qty: 60 0RF Label Comments: TAKE 1 TABLET BY MOUTH TWICE DAILY Primary Care Provider: Josiah Smith Referrals: Josiah Smith MD [Primary Care Provider] - As soon as possible Activity Restrictions/Additional Instructions: Please contact her Enrrique's office for further clarification on your diabetes medications. Disposition Disposition: Home, Self Care Discharge Date/Time: 09/14/22 01:23
--- NOTE | 2022-09-13 22:30 | RAD_ITS ---
EXAM: XR CHEST, 1 VIEW CLINICAL INDICATION: cough TECHNIQUE: Frontal view of the chest. This report was created using [employer] report generation technology. COMPARISON: July 26, 2022, July 18, 2022. FINDINGS: LUNGS AND PLEURAL SPACES: Mild haziness in the medial right upper lobe may be due to mild artifact, cannot exclude minimal infiltrate. Otherwise clear lungs. No pneumothorax. No effusion. HEART: Stable borderline-mild cardiomegaly. MEDIASTINUM: Central airways and mediastinal contour are unremarkable. BONES/JOINTS: Unremarkable. SOFT TISSUES: Unremarkable. RAD/Chest 1 View (Portable) IMPRESSION: No convincing infiltrate. Minimal probable artifact in the medial right upper lobe, the patient is mildly rotated to the right. Otherwise stable chest. Electronically Signed: Yakelin Joyce MD at 23:05 EST ,
[2022-09-13] MEDS: 0.9% Normal Saline 1,000 ML 1000 ML IV (22:32)
[2022-09-13 22:48] LABS: Absolute Lymphocyte Count 1.06 X10^3/uL (0.83-4.51); Absolute Neutrophil Count 3.4 X10^3/uL (2.0-7.7); Basophil# 0.07 X10^3/uL; Basophil% 1.3 % (0-1); Eosinophil# 0.47 X10^3/uL; Eosinophils% 8.4 % (0-5); Hematocrit 28.9 % (37-47); Hemoglobin 10.1 g/dL (12.0-15.0); Lymphocyte # 1.06 X10^3/ul (0.83-4.51); Lymphocyte % 18.9 % (19-41); Mean Corp Hgb Conc 34.9 g/dL (32-36); Mean Corpuscular Hgb 28.9 pg (27.0-32.0); Mean Corpuscular Volume 82.6 fL (81-99); Mean Platelet Vol. 10.9 fl (6.2-12.0); Monocyte# 0.62 X10^3/uL; Monocyte% 11.1 % (0-10); NRBC Flagged by Analyzer 0 % (0-5); Neutrophil # 3.36 X10^3/uL (2.7-7.7); Neutrophil % 59.9 % (47-70); Platelet Count 126 K/mm3 (150-450); RBC Distribution Width CV 16.1 % (11.6-14.6); RBC Distribution Width SD 48.5 fl (35.1-43.9); White Blood Count 5.6 K/mm3 (4.4-11.0)
[2022-09-13 23:10] LABS: AST(SGOT) 26 U/L (15-37); Alanine Aminotransfer ALT/SGPT 33 U/L (13-56); Albumin, Serum 2.8 g/dL (3.2-5.0); Alkaline Phosphatase 121 U/L (45-117); Anion Gap 8 (5-15); BUN 30 mg/dL (7-18); BUN/Creat Ratio 20.3 RATIO (10-20); Bilirubin, Direct 0.31 mg/dL (0.00-0.30); Calcium,Total 10.3 mg/dL (8.5-10.1); Chloride 94 mmol/L (98-107); Creatinine, Serum 1.48 mg/dL (0.55-1.02); EST Glomerular Filtration Rate 37 mL/min (>60); Est Glom Filt Rate - Afr Amer 44 mL/min (>60); Estimated Creatinine Clearance 23.95 ml/min; Glucose 526 mg/dL (74-106); Lipase 555 U/L (73-393); Potassium 4.4 mmol/L (3.5-5.1); Protein, Total 6.8 g/dL (6.4-8.2); Sodium Level 135 mmol/L (136-145)
[2022-09-13] MEDS: Insulin Lispro 100 UNIT/ML INSULN.PEN 8 UNIT SC (23:38)
[2022-09-13 23:45] LABS: Mucous, Urine 0 SEEN /hpf (<or=2+); Red Blood Cells-Urine 0 SEEN /hpf (0-5); Squamous Epithelial Cells - UA 0 SEEN /hpf (5-10)
[2022-09-13 23:49] LABS: Color, Urine Yellow (Yellow); Glucose, Dipstick 1000 mg/dl (Normal); Ketone-Dipstick Negative (Negative); Leukocyte Esterase-Dipstick 100 /ul (Negative); Nitrite-Dipstick Positive (Negative); Occult Blood-Urine Negative /ul (Negative); Protein-Dipstick 15 mg/dl (Negative); Urine Bilirubin Dipstick Negative (Negative); Urine Clarity Clear (Clear); Urine Urobilinogen Normal (Normal)
[2022-09-13 23:54] VITALS: O2SAT 98
[2022-09-13 23:59] LABS: Bacteria 1+ /hpf (None Seen); White Blood Cells 0-5 SEEN /hpf (0-5)
[2022-09-14 00:30] LABS: Bedside Glucose 424 mg/dL (74-106)
[2022-09-14 01:12] VITALS: BP 132/74; PULSE 88; O2SAT 97; O2SAT 99
[2022-09-14 01:16] LABS: Bedside Glucose 380 mg/dL (74-106)
[2022-09-14] MEDS: Cephalexin 250 MG Capsule 500 MG PO (01:16)
== END 2022-09-14 01:23 | disposition home or self-care (01) ==
PROVIDERS: Emergency Provider Emergency Medicine; PCP Family Medicine; Visit Provider Emergency Medicine
DX: N39.0 Urinary tract infection, site not specified (principal); J44.9 Chronic obstructive pulmonary disease, unspecified; E11.65 Type 2 diabetes mellitus with hyperglycemia; I10 Essential (primary) hypertension; Z87.891 Personal history of nicotine dependence; Z20.822 Contact with and (suspected) exposure to COVID-19
CPT/HCPCS: 71045; 80048; 80076; 81001; 82009; 82962; 83690; 85025; 87428; 96360; 99285; J7030; A4216

== ENCOUNTER 2022-10-15 17:44 | Inpatient (IN) | payer MEDICARE, MEDICAID, SELFPAY ==
[2022-10-15] VITALS (8 sets, daily range): BP systolic 88–154; BP diastolic 35–97; PULSE 62–94; RESP 15–18; TEMP 36–37.1; O2SAT 95–100; BMI 22.4; BMI 26.4
[2022-10-15] MEDS: 0.9% Normal Saline 1,000 ML 50 ML IV (19:52)
[2022-10-15 20:13] LABS: Anion Gap 10 (5-15); BUN 81 mg/dL (7-18); BUN/Creat Ratio 17.1 RATIO (10-20); Calcium,Total 9.8 mg/dL (8.5-10.1); Chloride 102 mmol/L (98-107); Creatinine, Serum 4.74 mg/dL (0.55-1.02); EST Glomerular Filtration Rate 10 mL/min (>60); Est Glom Filt Rate - Afr Amer 12 mL/min (>60); Estimated Creatinine Clearance 7.48 ml/min; Glucose 267 mg/dL (74-106); Sodium Level 127 mmol/L (136-145)
--- NOTE | 2022-10-15 20:18 | RAD_ITS ---
INDICATION: Stroke EXAMINATION/TECHNIQUE: X-RAY - XR Chest 1 View COMPARISON: 09/13/2022 FINDINGS: LINES/DEVICES: None. LUNGS: No consolidation, edema or effusion. No pneumothorax. MEDIASTINUM AND CARDIOVASCULAR STRUCTURES: Cardiac silhouette not enlarged. Central airways and mediastinal contour are unremarkable. RAD/Chest 1 View (Portable) IMPRESSION: No radiographic evidence of acute cardiopulmonary disease. Electronically Signed: Ronald Burr MD at 20:31 EST ,
--- NOTE | 2022-10-15 20:35 | EX.ED.DYSGE1 ---
HPI History of Present Illness Chief Complaint: Weakness Informant: patient Onset/Context/Timing Onset: Days (3) Context: Gradual Onset Timing: Continuous Quality: Off balance, lightheaded Location: Generalized Worsened by: None thing Relieved by: Nothing Narrative Narrative: Patient presents with generalized weakness that has been getting worse over the past 3 days. Patient states she feels dizzy and off balance. states patient has not been eating or drinking as much is normal. Patient states she has been drinking a lot of water. Patient states nothing makes her symptoms better and nothing makes it worse. Patient admits to some nausea and vomiting. Patient denies any fevers or chills. Patient denies any abdominal pain. Patient denies any urinary complaints. [facility] Medical History (Updated 10/15/22 @ 21:[address] 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 Thrombocytopenia Home Medications atorvastatin 40 mg tablet (Lipitor) 40 mg PO QHS cholesterol 02/09/22 [History Last Taken 07/17/22] labetalol 100 mg tablet 50 mg PO BID Check with primary doctor 05/26/22 [History Last Taken 07/17/22] lactulose 20 gram/30 mL oral solution 20 g PO Q6H Check with primary doctor 05/26/22 [History Last Taken 07/17/22] spironolactone 25 mg tablet 25 mg PO BID Check with primary doctor 05/26/22 [History Last Taken 07/17/22] polysaccharide iron complex 150 mg iron capsule (Ferrex) 150 mg PO DAILYCM #90 caps 05/28/22 [Rx Last Taken Unknown] ramipril 5 mg capsule 5 mg PO QHS Check with primary doctor 07/18/22 [History Last Taken 07/17/22] torsemide 20 mg tablet 40 mg PO DAILY 07/18/22 [History Last Taken Unknown] tizanidine 4 mg tablet 4 mg PO PRN PRN Muscle Pain 07/26/22 [History Last Taken Unknown] glimepiride 4 mg tablet 2 mg PO DAILY #15 tabs 07/29/22 [Rx Last Taken Unknown] rifaximin 550 mg tablet (Xifaxan) 550 mg PO BID Check with primary doctor 30 days #60 tabs 07/29/22 [Rx Last Taken Unknown] cephalexin 500 mg capsule 500 mg PO Q12 #14 caps 09/14/22 [Rx Last Taken Unknown] Allergy/AdvReac Type Severity Reaction Status Date / Time suture Allergy Mild rash/ Verified 10/15/22 17:48 wound dehisence amoxicillin Allergy Unknown Verified 10/15/22 17:48 azithromycin Allergy Shortness Verified 10/15/22 17:48 of breath celecoxib [From Celebrex] Allergy Other Verified 10/15/22 17:48 ciprofloxacin HCl Allergy Shortness Verified 10/15/22 17:48 [From Cipro] of breath cortisone Allergy Swelling Verified 10/15/22 17:48 doxycycline Allergy Shortness Verified 10/15/22 17:48 of breath erythromycin base Allergy Unknown Verified 10/15/22 17:48 fexofenadine [From Ashlee] Allergy Unknown Verified 10/15/22 17:48 ibuprofen Allergy Shortness Verified 10/15/22 17:48 of breath Iodinated Contrast Media Allergy Shortness Verified 10/15/22 17:48 [DYEE] of breath iodine Allergy Shortness Verified 10/15/22 17:48 of breath levofloxacin [From Levaquin] Allergy Shortness Verified 10/15/22 17:48 of breath lorazepam [From Ativan] Allergy Shortness Verified 10/15/22 17:48 of breath nitrofurantoin Allergy Shortness Verified 10/15/22 17:48 macrocrystalline of breath [From Macrobid] Penicillins Allergy Shortness Verified 10/15/22 17:48 of breath rofecoxib [From Vioxx] Allergy Unknown Verified 10/15/22 17:48 Sulfa (Sulfonamide Allergy Shortness Verified 10/15/22 17:48 Antibiotics) of breath sulfamethoxazole Allergy Shortness Verified 10/15/22 17:48 [From Bactrim] of breath trimethoprim [From Bactrim] Allergy Shortness Verified 10/15/22 17:48 of breath amlodipine [From Norvasc] AdvReac Upset Verified 10/15/22 17:48 Stomach MISC BP MED Allergy Shortness Uncoded 10/15/22 17:48 of breath Family History Mother Heart disease Brother Heart disease Surgical History (Updated 10/15/22 @ 20:[address] Miriam Valdes MD) History of bilateral salpingo-oophorectomy History of endarterectomy History of laparoscopic cholecystectomy History of oral surgery S/P TIPS (transjugular intrahepatic portosystemic shunt) Social History household members: spouse Smoking Status: Former smoker alcohol intake: never substance use type: does not use ROS ROS ED Constitutional Constitutional ED: Denies chills or fever(s) Eyes Eyes: Denies blurry vision or change in vision ENT ENT ED: Denies rhinorrhea or sore throat Cardiovascular Cardiovascular: Denies chest pain or palpitations Respiratory/Chest Respiratory/Chest: Denies cough or dyspnea Gastrointestinal Gastrointestinal: Reports nausea and vomiting Genitourinary Genitourinary ED: Denies dysuria or hematuria Musculoskeletal Musculoskeletal: Denies back pain or neck pain Integumentary Denies abscess or rash Neurologic Neurologic: Reports weakness; Denies headache(s) Allergic/Immunologic Allergic/Immunologic ED: Denies mouth swelling or urticaria EXAM Physical Exam Const Vital Signs: 10/15/22 17:45 10/15/22 19:49 10/15/22 19:50 Temperature 96.8 F L Temperature Source Temporal Pulse Rate 62 Respiratory Rate 18 17 Blood Pressure 112/42 L Blood Pressure Mean 65 Pulse Ox 95 97 Oxygen Delivery Method Nasal Cannula Room Air Oxygen Flow Rate (L/min) 3 Positive well nourished and well developed General Appearance ED: well developed and NAD HEENT Reports dry mucous membranes Mouth ED: Yes dry mucous membranes Mouth: dry mucous membranes Neck supple and no JVD Resp normal respiratory effort and clear to auscultation bilaterally Cardio regular rate, regular rhythm and no murmurs GI normal to inspection, nondistended, normoactive bowel sounds Palpation: soft and tender epigastric, LLQ, RLQ, LUQ, RUQ, periumbilical and suprapubic; Negative for guarding or rebound tenderness present Extremity normal to inspection General Extremety ED: Negative for edema or tenderness General Extremity: Negative for edema Neuro oriented x3, CN's II-XII intact bilaterally and no sensory deficits noted Sensorium / Orientation: alert Motor Exam: strength 5/5 throughout Psych mental status grossly normal Skin no rashes or lesions noted MDM MDM MDM Narrative Medical decision making narrative: Patient was given IV fluids. Basic metabolic profile showed a sodium of 127. CO2 was 15. BUN was 81 and creatinine is 4.74. These are increased from previous results. Glucose was 267. Portable 1 view chest x-ray was obtained. On my interpretation, lung garcia are clear. There is normal cardiac silhouette. Bony thorax is normal. There is no acute process noted. Radiologist also interpreted the x-ray and agrees. EKG was obtained. On my interpretation, it shows a normal sinus rhythm with a rate of 62. There is left axis deviation at -76. DC interval was within normal limits. QRS interval was slightly prolonged at 148 ms. QTc interval was within normal limits. There is a right bundle branch block pattern noted. 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 This was unchanged compared to previous EKG. CBC shows a leukocytosis of 14.3. Hemoglobin was 9.8 and hematocrit was 28.7. Ammonia level slightly elevated at 46. This was actually improved from previous results. Case was discussed with the hospitalist. She will admit the patient to her service. Patient and family understood and were agreeable with the plan. All questions were answered. Lab Data Attestation: I reviewed the patient's lab results. Labs: Laboratory Results - last 24 hr 10/15/22 10/15/22 10/15/22 19:00 19:00 19:00 WBC Cancelled Corrected WBC Cancelled RBC Cancelled Hgb Cancelled Hct Cancelled MCV Cancelled MCH Cancelled MCHC Cancelled RDW Std Deviation Cancelled RDW Coeff of [place] Cancelled Plt Count Cancelled MPV Cancelled Immature Gran % (Auto) Cancelled Neut % (Auto) Cancelled Lymph % (Auto) Cancelled [place] % (Auto) Cancelled Eos % (Auto) Cancelled Baso % (Auto) Cancelled Absolute Neuts (auto) Cancelled Absolute Lymphs (auto) Cancelled Total Counted Cancelled Neutrophils % (Manual) Cancelled Band Neutrophils % Cancelled Lymphocytes % (Manual) Cancelled Monocytes % (Manual) Cancelled Eosinophils % (Manual) Cancelled Basophils % (Manual) Cancelled Metamyelocytes % Cancelled Myelocytes % Cancelled Promyelocytes % Cancelled Blast Cells % Cancelled Plasma Cell % (Manual) Cancelled Other Cells % Cancelled Nucleated RBC % Cancelled Nucleated RBCs/100 WBC Cancelled Differential Comment Cancelled Diff Path Review Cancelled Hypersegmented Neuts Cancelled Atypical Lymphocytes Cancelled Reactive Lymphocytes Cancelled Smudge Cells Cancelled Toxic Granulation Cancelled Toxic Vacuolation Cancelled Dohle Bodies Cancelled Lavern Rods Cancelled Platelet Estimate Cancelled Plt Morphology Comment Cancelled RBC Morphology Cancelled Polychromasia Cancelled Hypochromasia Cancelled Poikilocytosis Cancelled Basophilic Stippling Cancelled Anisocytosis Cancelled Microcytosis Cancelled Macrocytosis Cancelled Spherocytes Cancelled Sickle Cells Cancelled Target Cells Cancelled Tear Drop Cells Cancelled Ovalocytes Cancelled Stomatocytes Cancelled Asif-Radcliffe Bodies Cancelled [place] Cells Cancelled Bite Cells Cancelled Crenated Cell Cancelled Acanthocytes (Spur) Cancelled Rouleaux Cancelled Schistocytes Cancelled PT INR APTT Sodium 127 L Potassium 5.0 Chloride 102 Carbon Dioxide 15.0 L Anion Gap 10 BUN 81 H Creatinine 4.74 H Estim Creat Clear Calc 7.48 Est GFR (MDRD) Af Amer 12 L Est GFR (MDRD) Non-Af 10 L BUN/Creatinine Ratio 17.1 Glucose 267 H Calcium 9.8 Total Bilirubin 0.60 Direct Bilirubin 0.27 AST 17 ALT 18 Alkaline Phosphatase 122 H Ammonia Total Protein 7.0 Albumin 2.5 L Globulin 4.5 H 10/15/22 10/15/22 10/15/22 20:28 20:28 20:28 WBC 14.3 H Corrected WBC RBC 3.43 L Hgb 9.8 L Hct 28.7 L MCV 83.7 MCH 28.6 MCHC 34.1 RDW Std Deviation 45.9 H RDW Coeff of [place] 15.2 H Plt Count 222 MPV 10.1 Immature Gran % (Auto) 0.700 Neut % (Auto) 74.6 H Lymph % (Auto) 8.8 L [place] % (Auto) 8.0 Eos % (Auto) 7.3 H Baso % (Auto) 0.6 Absolute Neuts (auto) 10.7 H Absolute Lymphs (auto) 1.26 Total Counted Neutrophils % (Manual) Band Neutrophils % Lymphocytes % (Manual) Monocytes % (Manual) Eosinophils % (Manual) Basophils % (Manual) Metamyelocytes % Myelocytes % Promyelocytes % Blast Cells % Plasma Cell % (Manual) Other Cells % Nucleated RBC % 0 Nucleated RBCs/100 WBC Differential Comment Diff Path Review Hypersegmented Neuts Atypical Lymphocytes Reactive Lymphocytes Smudge Cells Toxic Granulation Toxic Vacuolation Dohle Bodies Lavern Rods Platelet Estimate Plt Morphology Comment RBC Morphology Polychromasia Hypochromasia Poikilocytosis Basophilic Stippling Anisocytosis Microcytosis Macrocytosis Spherocytes Sickle Cells Target Cells Tear Drop Cells Ovalocytes Stomatocytes Asif-[place]cliffe Bodies [place] Cells Bite Cells Crenated Cell Acanthocytes (Spur) Rouleaux Schistocytes PT 17.6 H INR 1.5 APTT 31.9 Sodium Potassium Chloride Carbon Dioxide Anion Gap BUN Creatinine Estim Creat Clear Calc Est GFR (MDRD) Af Amer Est GFR (MDRD) Non-Af BUN/Creatinine Ratio Glucose Calcium Total Bilirubin Direct Bilirubin AST ALT Alkaline Phosphatase Ammonia 46.0 H Total Protein Albumin Globulin Radiography Chest X-Ray - ED: 1 View, Read by ED Physician, Read by Radiologist and No Acute Disease Diagnostic Testing: Clinical Impression(s) from Imaging Studies Chest X-Ray 10/15/22 20:18 IMPRESSION: No radiographic evidence of acute cardiopulmonary disease. Electronically Signed: Ronald Burr MD at 20:31 EST , EKG Initial EKG: Attestation: I personally reviewed and interpreted this EKG as follows: Interpretation: Sinus Rhythm (62), RBBB and LAFB Prior EKG tracings: available for review Prior: Unchanged (05/26/2020) Discharge Plan Dx/Rx/DC Orders Clinical Impression: Acute kidney injury, Hepatic encephalopathy, Dehydration Disposition Disposition: Acute Care Hospital [facility]
[2022-10-15 20:42] LABS: Absolute Lymphocyte Count 1.26 X10^3/uL (0.83-4.51); Absolute Neutrophil Count 10.7 X10^3/uL (2.0-7.7); Basophil# 0.08 X10^3/uL; Basophil% 0.6 % (0-1); Eosinophil# 1.04 X10^3/uL; Eosinophils% 7.3 % (0-5); Hematocrit 28.7 % (37-47); Hemoglobin 9.8 g/dL (12.0-15.0); Lymphocyte # 1.26 X10^3/ul (0.83-4.51); Lymphocyte % 8.8 % (19-41); Mean Corp Hgb Conc 34.1 g/dL (32-36); Mean Corpuscular Hgb 28.6 pg (27.0-32.0); Mean Corpuscular Volume 83.7 fL (81-99); Mean Platelet Vol. 10.1 fl (6.2-12.0); Monocyte# 1.14 X10^3/uL; NRBC Flagged by Analyzer 0 % (0-5); Neutrophil # 10.69 X10^3/uL (2.7-7.7); Neutrophil % 74.6 % (47-70); Platelet Count 222 K/mm3 (150-450); RBC Distribution Width CV 15.2 % (11.6-14.6); RBC Distribution Width SD 45.9 fl (35.1-43.9); Red Blood Count 3.43 M/mm3 (4.2-5.4); White Blood Count 14.3 K/mm3 (4.4-11.0)
[2022-10-15 20:52] LABS: International Normalized Ratio 1.5; Prothrombin Time (Protime)PT. 17.6 SECONDS (11.7-14.9)
[2022-10-15 20:53] LABS: Partial Thromboplast Time 31.9 Seconds (24.1-36.2)
[2022-10-15] MEDS: 0.9% Normal Saline 1,000 ML 1000 ML IV (20:58)
[2022-10-15 21:01] LABS: AST(SGOT) 17 U/L (15-37); Alanine Aminotransfer ALT/SGPT 18 U/L (13-56); Albumin, Serum 2.5 g/dL (3.2-5.0); Alkaline Phosphatase 122 U/L (45-117); Bilirubin, Direct 0.27 mg/dL (0.00-0.30); Globulin 4.5 g/dL (2.2-4.2)
[2022-10-15 21:05] LABS: Bacteria 0 SEEN /hpf (None Seen); Mucous, Urine 0 SEEN /hpf (<or=2+); Red Blood Cells-Urine 0 SEEN /hpf (0-5)
--- NOTE | 2022-10-15 21:06 | HP.PCM.HOS_ITS ---
HPI - General General Date of Admission: 10/15/22 Date of Service: 10/15/22 Chief Complaint: Weakness, debility, dizziness, decreased oral intake, N/V. HPI Narrative The patient is a 72 y/o F w/ PMHx: Diabetes mellitus type II, Nonalcoholic Liver Cirrhosis with several admissions with hyperammonia with hepatic encephalopathy s/p prior TIPS following w/ Friend, HTN, HLD, Chronic normocytic anemia/AOCD/Fe deficiency anemia, Chronic thrombocytopenia related to her liver disease, CKD stage III unclear subtype, Depression and Anxiety, GERD, COPD/Asthma, Former tobacco use who presents to the [facility] ED on 10/15/22 with history of significant generalized weakness worse over the last 3 days with associated lightheadedness and dizziness with decreased oral intake although she does report has been attempting to drink water with no improvement with mild nausea and emesis with no recent fevers or chills nor any abdominal discomfort nor any urinary complaints however given ongoing and not improving prompted ED evaluation. Work-up in the ED included T96.8, heart 62, BP 112/42, respiratory rate 18, 95% on 3 L nasal cannula noted initially however most recent repeat 97% on room air, C with WC 14.3, hemoglobin 9.8, platelet 222 with left shift, coags with PT 17.6, INR 1.5, PTT 31.9, CMP with sodium 127, bicarb 15, BUN/creat 81/4.74, glucose 267, hepatic profile with not marked appearing, chest x-ray with no acute cardiopulmonary findings. In the ED patient ministered normal saline 1 L bolus as well as low-dose maintenance IV fluids following given underlying cirrhotic history. 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 Thrombocytopenia Home Medications atorvastatin 40 mg tablet (Lipitor) 40 mg PO QHS cholesterol 02/09/22 [History Last Taken 07/17/22] labetalol 100 mg tablet 50 mg PO BID Check with primary doctor 05/26/22 [History Last Taken 07/17/22] lactulose 20 gram/30 mL oral solution 20 g PO Q6H Check with primary doctor 05/26/22 [History Last Taken 07/17/22] spironolactone 25 mg tablet 25 mg PO BID Check with primary doctor 05/26/22 [History Last Taken 07/17/22] polysaccharide iron complex 150 mg iron capsule (Ferrex) 150 mg PO DAILYCM #90 caps 05/28/22 [Rx Last Taken Unknown] ramipril 5 mg capsule 5 mg PO QHS Check with primary doctor 07/18/22 [History Last Taken 07/17/22] torsemide 20 mg tablet 40 mg PO DAILY 07/18/22 [History Last Taken Unknown] tizanidine 4 mg tablet 4 mg PO PRN PRN Muscle Pain 07/26/22 [History Last Taken Unknown] glimepiride 4 mg tablet 2 mg PO DAILY #15 tabs 07/29/22 [Rx Last Taken Unknown] rifaximin 550 mg tablet (Xifaxan) 550 mg PO BID Check with primary doctor 30 days #60 tabs 07/29/22 [Rx Last Taken Unknown] cephalexin 500 mg capsule 500 mg PO Q12 #14 caps 09/14/22 [Rx Last Taken Unknown] Allergy/AdvReac Type Severity Reaction Status Date / Time suture Allergy Mild rash/ Verified 10/15/22 17:48 wound dehisence amoxicillin Allergy Unknown Verified 10/15/22 17:48 azithromycin Allergy Shortness Verified 10/15/22 17:48 of breath celecoxib [From Celebrex] Allergy Other Verified 10/15/22 17:48 ciprofloxacin HCl Allergy Shortness Verified 10/15/22 17:48 [From Cipro] of breath cortisone Allergy Swelling Verified 10/15/22 17:48 doxycycline Allergy Shortness Verified 10/15/22 17:48 of breath erythromycin base Allergy Unknown Verified 10/15/22 17:48 fexofenadine [From Ashlee] Allergy Unknown Verified 10/15/22 17:48 ibuprofen Allergy Shortness Verified 10/15/22 17:48 of breath Iodinated Contrast Media Allergy Shortness Verified 10/15/22 17:48 [DYEE] of breath iodine Allergy Shortness Verified 10/15/22 17:48 of breath levofloxacin [From Levaquin] Allergy Shortness Verified 10/15/22 17:48 of breath lorazepam [From Ativan] Allergy Shortness Verified 10/15/22 17:48 of breath nitrofurantoin Allergy Shortness Verified 10/15/22 17:48 macrocrystalline of breath [From Macrobid] Penicillins Allergy Shortness Verified 10/15/22 17:48 of breath rofecoxib [From Vioxx] Allergy Unknown Verified 10/15/22 17:48 Sulfa (Sulfonamide Allergy Shortness Verified 10/15/22 17:48 Antibiotics) of breath sulfamethoxazole Allergy Shortness Verified 10/15/22 17:48 [From Bactrim] of breath trimethoprim [From Bactrim] Allergy Shortness Verified 10/15/22 17:48 of breath amlodipine [From Norvasc] AdvReac Upset Verified 10/15/22 17:48 Stomach MISC BP MED Allergy Shortness Uncoded 10/15/22 17:48 of breath Family History Mother Heart disease Brother Heart disease Surgical History History of bilateral salpingo-oophorectomy History of endarterectomy History of laparoscopic cholecystectomy History of oral surgery S/P TIPS (transjugular intrahepatic portosystemic shunt) Social History household members: spouse Smoking Status: Former smoker alcohol intake: never substance use type: does not use ROS ROS Narrative Admission Review of Systems: CONSTITUTIONAL: No weight loss, fever, chills, + weakness or fatigue. HEENT: Eyes: No visual loss, blurred vision, double vision or yellow sclerae. Ears, Nose, Throat: No hearing loss, sneezing, congestion, runny nose or sore throat. SKIN: No rash or itching, lesions, wounds. CARDIOVASCULAR: No chest pain, chest pressure or chest discomfort, palpitations, edema, orthopnea, syncopal events. RESPIRATORY: No shortness of breath, cough or sputum, wheezing, hemoptysis. GASTROINTESTINAL: + anorexia, nausea, vomiting, No diarrhea, abdominal pain, melena, BRBPR. GENITOURINARY: No dysuria, frequency, urgency or retention. NEUROLOGICAL: No headache, dizziness, syncope, paralysis, ataxia, numbness or tingling in the extremities, focal weakness, change in bowel or bladder control, seizure. MUSCULOSKELETAL: + muscle, back pain, joint pain or stiffness. HEMATOLOGIC: + anemia, bleeding or bruising. LYMPHATICS: No enlarged nodes. No history of splenectomy. PSYCHIATRIC: No history of depression or anxiety. ENDOCRINOLOGIC: No reports of sweating, cold or heat intolerance. No polyuria or polydipsia. ALLERGIES: No history of asthma, hives, eczema or rhinitis. Vital Signs Vital Signs Vital Signs: 10/15/22 17:45 10/15/22 19:49 10/15/22 19:50 Temperature 96.8 F L Temperature Source Temporal Pulse Rate 62 Respiratory Rate 18 17 Blood Pressure 112/42 L Blood Pressure Mean 65 Pulse Ox 95 97 Oxygen Delivery Method Nasal Cannula Room Air Oxygen Flow Rate (L/min) 3 Weight Weight: 115 lb Body Mass Index (BMI) 22.4 Physical Exam Narrative Physical Examination: General: Awake, alert, oriented x 3 and cooperative, laying in the ED bed, fatigued, flat affect. Skin: Normal color, normal turgor, no icterus, no cyanosis except occasional staged ecchymoses. HEENT: AT/NC, EOMI, PERRLA, dry MM, no carotid bruits or JVD noted. Lungs: Diminished, greater bases, appropriate effort, no rales, ronchi or wheezing. Heart: Regular rate and rhythm; no gallop, rub audible. Abdomen: Soft, overweight, NTTP, no marked distention, distant mildly hyperactive BS, + HM. Extremities: No cyanosis, clubbing, or edema. Neurological: Patient awake, alert, oriented as noted cognitive function intact; pupils equally reactive to light and accommodation, cranial nerves II- XII grossly normal, moving all 4 extremities, no focal deficits, strength moderately to severely global decreased secondary to acute complaints. Psychiatric: Affect appears fatigued, flat affect, no acute evidence of depressive or anxiety feelings. Results Lab / Micro Data Result Diagrams: 10/15/22 20:28 10/15/22 19:00 Labs: Laboratory Results - last 24 hr 10/15/22 19:00: WBC Cancelled, Corrected WBC Cancelled, RBC Cancelled, Hgb Cancelled, Hct Cancelled, MCV Cancelled, MCH Cancelled, MCHC Cancelled, RDW Std Deviation Cancelled, RDW Coeff of [place] Cancelled, Plt Count Cancelled, MPV Cancelled, Immature Gran % (Auto) Cancelled, Neut % (Auto) Cancelled, Lymph % (Auto) Cancelled, [place] % (Auto) Cancelled, Eos % (Auto) Cancelled, Baso % (Auto) Cancelled, Absolute Neuts (auto) Cancelled, Absolute Lymphs (auto) Cancelled, Total Counted Cancelled, Neutrophils % (Manual) Cancelled, Band Neutrophils % Cancelled, Lymphocytes % (Manual) Cancelled, Monocytes % (Manual) Cancelled, Eosinophils % (Manual) Cancelled, Basophils % (Manual) Cancelled, Metamyelocytes % Cancelled, Myelocytes % Cancelled, Promyelocytes % Cancelled, Blast Cells % Cancelled, Plasma Cell % (Manual) Cancelled, Other Cells % Cancelled, Nucleated RBC % Cancelled, Nucleated RBCs/100 WBC Cancelled, Differential Comment Cancelled, Diff Path Review Cancelled, Hypersegmented Neuts Cancelled, Atypical Lymphocytes Cancelled, Reactive Lymphocytes Cancelled, Smudge Cells Cancelled, Toxic Granulation Cancelled, Toxic Vacuolation Cancelled, Dohle Bodies Cancelled, Lavern Rods Cancelled, Platelet Estimate Cancelled, Plt Morphology Comment Cancelled, RBC Morphology Cancelled, Polychromasia Cancelled, Hypochromasia Cancelled, Poikilocytosis Cancelled, Basophilic Stippling Cancelled, Anisocytosis Cancelled, Microcytosis Cancelled, Macrocytosis Cancelled, Spherocytes Cancelled, Sickle Cells Cancelled, Target Cells Cancelled, Tear Drop Cells Cancelled, Ovalocytes Cancelled, Stomatocytes Cancelled, Asif[place] Bodies Cancelled, Joanne Cells Cancelled, Bite Cells Cancelled, Crenated Cell Cancelled, Acanthocytes (Spur) Cancelled, Rouleaux Cancelled, Schistocytes Cancelled 10/15/22 19:00: Sodium 127 L, Potassium 5.0, Chloride 102, Carbon Dioxide 15.0 L , Anion Gap 10, BUN 81 H, Creatinine 4.74 H, Estim Creat Clear Calc 7.48, Est GFR (MDRD) Af Amer 12 L, Est GFR (MDRD) Non-Af 10 L, BUN/Creatinine Ratio 17.1, Glucose 267 H, Calcium 9.8 10/15/22 19:00: Total Bilirubin 0.60, Direct Bilirubin 0.27, AST 17, ALT 18, Alkaline Phosphatase 122 H, Total Protein 7.0, Albumin 2.5 L, Globulin 4.5 H 10/15/22 20:28: WBC 14.3 H, RBC 3.43 L, Hgb 9.8 L, Hct 28.7 L, MCV 83.7, MCH 28.6, MCHC 34.1, RDW Std Deviation 45.9 H, RDW Coeff of [place] 15.2 H, Plt Count 222, MPV 10.1, Immature Gran % (Auto) 0.700, Neut % (Auto) 74.6 H, Lymph % (Auto) 8.8 L, [place] % (Auto) 8.0, Eos % (Auto) 7.3 H, Baso % (Auto) 0.6, Absolute Neuts (auto) 10.7 H, Absolute Lymphs (auto) 1.26, Nucleated RBC % 0 10/15/22 20:28: Ammonia 46.0 H 10/15/22 20:28: PT 17.6 H, INR 1.5, APTT 31.9 Radiology Impression Chest X-Ray 10/15/22 20:18 IMPRESSION: No radiographic evidence of acute cardiopulmonary disease. Electronically Signed: Ronald Burr MD at 20:31 EST , Assessment & Plan Assessment/Plan (1) Acute kidney injury: PLAN: Plan The patient is a 72 y/o F w/ PMHx: Diabetes mellitus type II, Nonalcoholic Liver Cirrhosis with several admissions with hyperammonia with hepatic encephalopathy s/p prior TIPS following w/ Dr. Gaming, HTN, HLD, Chronic normocytic anemia/AOCD/Fe deficiency anemia, Chronic thrombocytopenia related to her liver disease, CKD stage III unclear subtype, Depression and Anxiety, GERD, COPD/Asthma, Former tobacco use who presents to the [facility] ED on 10/15/22 with history of significant generalized weakness worse over the last 3 days with associated lightheadedness and dizziness with decreased oral intake although she does report has been attempting to drink water with no improvement with mild nausea and emesis. #1. Lightheadedness, dizziness secondary to Acute kidney injury on CKD stage III, unclear subtype with concurrent acute hyponatremia, suspect hypovolemic: We will admit to medical surgical floor, maintain on fall precautions, will obtain orthostatic vital signs as do suspect this is likely the etiology, admission BUN/Cr 81/4.74, prior baseline creatinine noted to be primarily 1.3-1.4, most recently prior to presentation 09/13/2022 creatinine 1.48. Will hydrate, hold nephrotoxic medications and repeat chemistry in AM, will obtain renal ultrasound and FeNa assessment. Patient sodium level from prior review normal baseline however has decreased, 09/13/2022 sodium 135, continue very judicious hydration given underlying cirrhotic disease with repeat CMP in AM. We will obtain full respiratory panel as well as COVID PCR as certainly this could be the etiology for current symptoms. Urinalysis requested and pending. Ammonia level pending per ED upon evaluation. If not improving low threshold to involve Nephrology. #2. Chronic nonalcoholic liver cirrhosis, appears compensated: Status post prior TIPS, frequent presentation with hepatic encephalopathy with hyperammonia, following with gastroenterology. Given acute presentation with acute kidney i njury we will temporarily hold nephrotoxic regimen including torsemide, spironolactone, ramipril and very judiciously hydrate, Riyad once appropriate, continue patient home Xifaxan and labetalol as well as lactulose regimen. If any severe diarrhea given SKY will also step back on patient's lactulose. #3. Diabetes mellitus type II: Hold oral home regimen, given current symptoms will initiate clears and advance diet to ADA diet once improving, accu checks w/ ISS. #4. Hypertension: Given presentation as noted holding all nephrotoxic regimen, as needed IV hydralazine in interim. #5. Hyperlipidemia: We will continue patient on statin therapy #6. Chronic normocytic anemia/iron deficiency anemia/AOCD: Admission hemoglobin 9.8, baseline prior 9-10, stable, continue to trend, continue iron supplementation. #7. Chronic thrombocytopenia: Secondary to underlying liver disease, current admission platelet 222 however baseline prior primarily ranged 50-100, most recently 09/13/2022 126, will continue to trend CBC. #8. Chronic COPD/Asthma: Not on routine scheduled inhalers, PRN albuterol, HOB, IS parameters. #9. Former tobacco usage: Encourage continued tobacco cessation. #10. GERD: Not on chronic PPI, may have as needed Mylanta if needed. #11. DVT prophylaxis: SCDs, heparin with close CBC monitoring given liver disease as noted. #12. CODE status: Discussed with the patient and her CODE status at length including difference between FULL code, DNR-CCA and DNR-CC status. Following discussions about the differences in these status, requested Full Code status. Advanced Care Planning Face to Face Time: 16 minutes. Charges/Coding Visit Charges Inpatient E&M: 55409 Init Hosp L3 Procedures Hospitalists Procedures: 76395 Advncd Care Plan 30 Min
[2022-10-15 21:08] LABS: Color, Urine Yellow (Yellow); Glucose, Dipstick Normal (Normal); Ketone-Dipstick Negative (Negative); Leukocyte Esterase-Dipstick Negative /ul (Negative); Nitrite-Dipstick Negative (Negative); Occult Blood-Urine Negative /ul (Negative); Protein-Dipstick 15 mg/dl (Negative); Specific Gravity, Urine 1.015 (1.002-1.030); Urine Bilirubin Dipstick Negative (Negative); Urine Clarity Clear (Clear); Urine Urobilinogen Normal (Normal)
[2022-10-15 21:25] LABS: Squamous Epithelial Cells - UA 0-5 SEEN /hpf (5-10); White Blood Cells 0-5 SEEN /hpf (0-5)
[2022-10-15 22:15] LABS: Urine Sodium 20 mmol/L (Not Establ.)
[2022-10-16] MEDS: 0.9% Saline Lock 10 ML Syringe IV (00:46)
[2022-10-16] MEDS: 0.9% Normal Saline 1,000 ML 75 ML IV (00:46)
[2022-10-16] MEDS: Atorvastatin Calcium 40 MG Tablet PO ×2 (00:54→20:14)
[2022-10-16] MEDS: rifAXIMin 550 MG Tablet PO ×3 (00:54→20:13)
[2022-10-16 01:20] LABS: Bedside Glucose 186 mg/dL (74-106)
--- NOTE | 2022-10-16 02:00 | NURSING ---
Report given to KATELYN Michelle at this time. Care of this pt relinquished at this time.
[2022-10-16 04:59] VITALS: BP 134/41; PULSE 61; RESP 18; TEMP 37.2; O2SAT 100
--- NOTE | 2022-10-16 05:55 | US_ITS ---
STUDY: RENAL ULTRASOUND - COMPLETE REASON FOR EXAM: Female, 72 years old. SKY TECHNIQUE: Ultrasound evaluation of the kidneys was performed with real-time and static singer-scale imaging. COMPARISON: None. FINDINGS: RIGHT KIDNEY: Normal location of the right kidney, which is normal in size. The right kidney measures 11.3 x 4.3 x 5.4 cm. Is a relative send appearance of the cortex with increased echogenicity. There are a few punctate calcifications in the right kidney which may represent vascular calcifications. There is mild distention of the calyces and the right renal pelvis.. The renal cortex measures 0.8 cm. There is no right renal mass or cyst. There are no right renal calculi. There is mild right hydronephrosis. LEFT KIDNEY: Normal location of the left kidney, which is normal in size. The left kidney measures 11.1 x 3.7 x 4.0 cm. There is a thinned appearance of the left renal cortex. The left renal cortex measures 0.6 to 0.9 cm. There is no left renal mass or cyst. There are no left renal calculi. There is no left hydronephrosis. BLADDER: Nonvisualized. The patient was unable to Hold urine. US/Kidney and Bladder IMPRESSION: Mild Right hydronephrosis. Bilateral renal cortical thinning suggestive of underlying medical renal disease. Electronically Signed: Salma Tompkins MD at 15:58 EST ,
[2022-10-16 07:00] LABS: Bedside Glucose 134 mg/dL (74-106)
[2022-10-16] MEDS: Heparin Injection (Vial) 5,000 UNIT/ML VIAL 5000 UNIT SC ×2 (08:42→20:15)
[2022-10-16] MEDS: Iron Polysaccharide Complex 150 MG CAPSULE PO (08:43)
[2022-10-16 08:46] LABS: Absolute Lymphocyte Count 1.21 X10^3/uL (0.83-4.51); Absolute Neutrophil Count 8.5 X10^3/uL (2.0-7.7); Basophil# 0.07 X10^3/uL; Basophil% 0.6 % (0-1); Eosinophil# 1.09 X10^3/uL; Eosinophils% 9.2 % (0-5); Hematocrit 26.4 % (37-47); Hemoglobin 8.9 g/dL (12.0-15.0); Lymphocyte # 1.21 X10^3/ul (0.83-4.51); Lymphocyte % 10.2 % (19-41); Mean Corp Hgb Conc 33.7 g/dL (32-36); Mean Platelet Vol. 9.7 fl (6.2-12.0); Monocyte# 0.96 X10^3/uL; Monocyte% 8.1 % (0-10); NRBC Flagged by Analyzer 0 % (0-5); Neutrophil # 8.48 X10^3/uL (2.7-7.7); Neutrophil % 71.3 % (47-70); Platelet Count 195 K/mm3 (150-450); RBC Distribution Width SD 45.5 fl (35.1-43.9); Red Blood Count 3.18 M/mm3 (4.2-5.4); White Blood Count 11.9 K/mm3 (4.4-11.0)
[2022-10-16 09:14] LABS: ALB/GLOB Ratio 0.6 RATIO (0.9-2.4); AST(SGOT) 15 U/L (15-37); Alanine Aminotransfer ALT/SGPT 16 U/L (13-56); Albumin, Serum 2.1 g/dL (3.2-5.0); Alkaline Phosphatase 94 U/L (45-117); Anion Gap 7 (5-15); BUN 70 mg/dL (7-18); BUN/Creat Ratio 19.7 RATIO (10-20); Chloride 111 mmol/L (98-107); Creatinine, Serum 3.56 mg/dL (0.55-1.02); EST Glomerular Filtration Rate 13 mL/min (>60); Est Glom Filt Rate - Afr Amer 16 mL/min (>60); Estimated Creatinine Clearance 9.96 ml/min; Globulin 3.8 g/dL (2.2-4.2); Glucose 138 mg/dL (74-106); Potassium 5.1 mmol/L (3.5-5.1); Protein, Total 5.9 g/dL (6.4-8.2); Sodium Level 133 mmol/L (136-145)
--- NOTE | 2022-10-16 09:44 | PCM.PN.HOSP ---
Subjective Subjective Reports feeling shaky and nervous and has an upset stomach, breathing fair, no other complaints Objective Data Objective Data Vital Signs: Vital Signs Temp Pulse Resp BP Pulse Ox O2 Del Method O2 Flow Rate 99.0 F 61 18 134/41 H 100 Nasal Cannula 3 10/16/22 04:59 10/16/22 04:59 10/16/22 04:59 10/16/22 04:59 10/16/22 04:59 10/16/22 05:04 10/16/22 05:04 Oxygen Flow Rate (L/min) 3 Oxygen Delivery Method Nasal Cannula Weight: 62.006 kg Body Mass Index (BMI) 26.4 Intake & Output: Intake and Output for Last 24 Hours 10/14/22 10/15/22 10/16/22 23:59 23:59 23:59 Intake Total 1999 575 / 575 Output Total 300 / 300 Balance 1999 275 / 275 Lab / Micro Data Result Diagrams: 10/16/22 08:35 10/16/22 08:35 Labs: Laboratory Results - last 24 hr 10/15/22 19:00: WBC Cancelled, Corrected WBC Cancelled, RBC Cancelled, Hgb Cancelled, Hct Cancelled, MCV Cancelled, MCH Cancelled, MCHC Cancelled, RDW Std Deviation Cancelled, RDW Coeff of [place] Cancelled, Plt Count Cancelled, MPV Cancelled, Immature Gran % (Auto) Cancelled, Neut % (Auto) Cancelled, Lymph % (Auto) Cancelled, [place] % (Auto) Cancelled, Eos % (Auto) Cancelled, Baso % (Auto) Cancelled, Absolute Neuts (auto) Cancelled, Absolute Lymphs (auto) Cancelled, Total Counted Cancelled, Neutrophils % (Manual) Cancelled, Band Neutrophils % Cancelled, Lymphocytes % (Manual) Cancelled, Monocytes % (Manual) Cancelled, Eosinophils % (Manual) Cancelled, Basophils % (Manual) Cancelled, Metamyelocytes % Cancelled, Myelocytes % Cancelled, Promyelocytes % Cancelled, Blast Cells % Cancelled, Plasma Cell % (Manual) Cancelled, Other Cells % Cancelled, Nucleated RBC % Cancelled, Nucleated RBCs/100 WBC Cancelled, Differential Comment Cancelled, Diff Path Review Cancelled, Hypersegmented Neuts Cancelled, Atypical Lymphocytes Cancelled, Reactive Lymphocytes Cancelled, Smudge Cells Cancelled, Toxic Granulation Cancelled, Toxic Vacuolation Cancelled, Dohle Bodies Cancelled, Lavern Rods Cancelled, Platelet Estimate Cancelled, Plt Morphology Comment Cancelled, RBC Morphology Cancelled, Polychromasia Cancelled, Hypochromasia Cancelled, Poikilocytosis Cancelled, Basophilic Stippling Cancelled, Anisocytosis Cancelled, Microcytosis Cancelled, Macrocytosis Cancelled, Spherocytes Cancelled, Sickle Cells Cancelled, Target Cells Cancelled, Tear Drop Cells Cancelled, Ovalocytes Cancelled, Stomatocytes Cancelled, Asif[place] Bodies Cancelled, [place] Cells Cancelled, Bite Cells Cancelled, Crenated Cell Cancelled, Acanthocytes (Spur) Cancelled, Rouleaux Cancelled, Schistocytes Cancelled 10/15/22 19:00: Sodium 127 L, Potassium 5.0, Chloride 102, Carbon Dioxide 15.0 L, Anion Gap 10, BUN 81 H, Creatinine 4.74 H, Estim Creat Clear Calc 7.48, Est GFR (MDRD) Af Amer 12 L, Est GFR (MDRD) Non-Af 10 L, BUN/Creatinine Ratio 17.1, Glucose 267 H, Calcium 9.8 10/15/22 19:00: Total Bilirubin 0.60, Direct Bilirubin 0.27, AST 17, ALT 18, Alkaline Phosphatase 122 H, Total Protein 7.0, Albumin 2.5 L, Globulin 4.5 H 10/15/22 20:28: WBC 14.3 H, RBC 3.43 L, Hgb 9.8 L, Hct 28.7 L, MCV 83.7, MCH 28.6, MCHC 34.1, RDW Std Deviation 45.9 H, RDW Coeff of [place] 15.2 H, Plt Count 222, MPV 10.1, Immature Gran % (Auto) 0.700, Neut % (Auto) 74.6 H, Lymph % (Auto) 8.8 L, [place] % (Auto) 8.0, Eos % (Auto) 7.3 H, Baso % (Auto) 0.6, Absolute Neuts (auto) 10.7 H, Absolute Lymphs (auto) 1.26, Nucleated RBC % 0 10/15/22 20:28: Ammonia 46.0 H 10/15/22 20:28: PT 17.6 H, INR 1.5, APTT 31.9 10/15/22 20:55: Urine Color Yellow, Urine Clarity Clear, Urine pH 5.0, Ur Specific Kuna 1.015, Urine Protein 15 H, Urine Glucose (UA) Normal, Urine Ketones Negative, Urine Occult Blood Negative, Urine Nitrite Negative, Urine Bilirubin Negative, Urine Urobilinogen Normal, Ur Leukocyte Esterase Negative, Urine RBC 0 SEEN, Urine WBC 0-5 SEEN, Ur Squamous Epith Cells 0-5 SEEN, Urine Bacteria 0 SEEN, Urine Mucus 0 SEEN 10/15/22 20:55: Ur Random Sodium 20, Urine Creatinine 97.50 10/15/22 21:17: COVID-19 (SILVIA) Not Detected 10/16/22 00:52: POC Glucose 186 H 10/16/22 06:33: POC Glucose 134 H 10/16/22 08:35: WBC 11.9 H, RBC 3.18 L, Hgb 8.9 L, Hct 26.4 L, MCV 83.0, MCH 28.0, MCHC 33.7, RDW Std Deviation 45.5 H, RDW Coeff of [place] 15.0 H, Plt Count 195, MPV 9.7, Immature Gran % (Auto) 0.600, Neut % (Auto) 71.3 H, Lymph % (Auto) 10.2 L, [place] % (Auto) 8.1, Eos % (Auto) 9.2 H, Baso % (Auto) 0.6, Absolute Neuts (auto) 8.5 H, Absolute Lymphs (auto) 1.21, Nucleated RBC % 0 10/16/22 08:35: Sodium 133 L, Potassium 5.1, Chloride 111 H, Carbon Dioxide 15.0 L, Anion Gap 7, BUN 70 H, Creatinine 3.56 H, Estim Creat Clear Calc 9.96, Est GFR (MDRD) Af Amer 16 L, Est GFR (MDRD) Non-Af 13 L, BUN/Creatinine Ratio 19.7, Glucose 138 H, Calcium 9.0, Total Bilirubin 0.50, AST 15, ALT 16, Alkaline Phosphatase 94, Total Protein 5.9 L, Albumin 2.1 L, Globulin 3.8, Albumin/Globulin Ratio 0.6 L Micro: Microbiology 10/15/22 21:39 Mucosa - Nasopharyngeal Respiratory Panel (PCR) - Final Radiography Diagnostic Testing: Radiology Impression Chest X-Ray 10/15/22 20:18 IMPRESSION: No radiographic evidence of acute cardiopulmonary disease. Electronically Signed: Ronald Burr MD at 20:31 EST , Physical Exam Const alert and no apparent distress Constitutional Narrative: Oriented HEENT normocephalic and head/scalp atraumatic Eyes Eyes Narrative: EOM grossly intact, anicteric Neck supple Resp normal respiratory effort Resp Narrative: Diminished at the bases Cardio regular rate and regular rhythm GI soft to palpation, non-tender and non-distended Extremity Extremity Narrative: No edema appreciated Neuro moves all extremities Neuro Narrative: No overt focal deficits appreciated Psych Psych Narrative: Cooperative Assessment & Plan Assessment/Plan (1) Acute kidney injury: PLAN: Plan #SKY on CKD stage III unclear subtype Improved today with fluids but still far from baseline Continue to hold nephrotoxic agents #Nonalcoholic liver cirrhosis with history of hepatic encephalopathy status post prior TIPS procedure Follows with GI as an outpatient Given SKY currently torsemide, spironolactone, ramipril have been held and she is being hydrated Will resume when able/appropriate Continue rifaximin and labetalol as well as lactulose #Type 2 diabetes mellitus Glucose checks and sliding scale insulin Charges/Coding Visit Charges Inpatient E&M: 99513 Subs Hosp L2
--- NOTE | 2022-10-16 11:06 | CASEMGMT ---
LISA SALCIDO Assessment: Face to Face with pt for initial transition planning/care coordination assessment. LISA SALCIDO introduced self and role at [facility], pt voices understanding and consents to assessment. Pt is A/O. However, pt falls in and out of sleeps making answering questions difficult. Complex [employer] Processing Supervisor attempted to leave and come back to the room but pt kept waking up and states she wants to finish the assessment at this time. Care providers, pharmacy, and demographics verified/updated. Admitting Dx: SKY. PCP: Josiah Smith. Specialists: None. Preferred Pharmacy: [facility]. Insurance: [employer] [facility]. [facility] Community Plan DOE. Prescription Benefit: Yes. LW/HPOA: Pt reports having a LW/HPOA. Pt states dtr, Harvey, is HPOA. Pt is aware that paperwork can be scanned to file at [facility] if brought in. LNOK: Franklin Ann, . Mile Wiley, dtr. Living Arrangements: Pt lives with in a one story home with no steps to enter. Pt reports being I in most ADLs. If assistance is needed, helps. Transportation: Pt's transports. DME/HHC/SNF: Pt has the following: Wheelchair, shower chair, and BSC. Pt denies needing any other DME. Pt has oxgen through [facility] with a portable oxygen tank and a concentrator. Pt checks blood sugar in the morning. Pt reports having necessary DM supplies. Pt reports HHC in the past but can't recall the provider. Pt denied any SNF stays. Pt thinks she may be involved with [facility]. Pt reports HHC may be needed upon DC. CM to follow. Advised pt to ask CM if any further question/concerns/needs arise, voices understanding. Pt Goal: Home with HHC. Plan: TBD.
[2022-10-16] MEDS: Labetalol 100 MG Tablet 50 MG PO ×2 (11:34→20:14)
[2022-10-16 12:01] LABS: Bedside Glucose 120 mg/dL (74-106)
[2022-10-16 12:45] LABS: Anion Gap 6 (5-15); BUN 68 mg/dL (7-18); BUN/Creat Ratio 20.2 RATIO (10-20); Calcium,Total 8.9 mg/dL (8.5-10.1); Chloride 112 mmol/L (98-107); Creatinine, Serum 3.37 mg/dL (0.55-1.02); EST Glomerular Filtration Rate 14 mL/min (>60); Est Glom Filt Rate - Afr Amer 17 mL/min (>60); Estimated Creatinine Clearance 10.52 ml/min; Glucose 147 mg/dL (74-106); Potassium 4.9 mmol/L (3.5-5.1); Sodium Level 135 mmol/L (136-145)
--- NOTE | 2022-10-16 13:48 | CASEMGMT ---
Social Work Pt has [facility] and CM is Skye Gillette [phone]. Pt has an emergency response system but no other services at this time. SW will fax discharge orders to [facility] at time of discharge. SAVANA Clemens
--- NOTE | 2022-10-16 15:52 | CASEMGMT ---
TC theron Toscano to verify oxygen rx, received PLATE SHEAR OPERATOR who states he cannot verify. Will need to attempt back tomorrow to verify.
--- NOTE | 2022-10-16 16:19 | NURSING ---
[facility] but had 8 pages of meds and unable to clarify which ones pt still on, Son called and he will call back with a current med list, primary nurse aware
[2022-10-16] MEDS: Insulin Lispro 100 UNIT/ML INSULN.PEN SC ×2 (16:39→20:13)
[2022-10-16 17:06] LABS: Bedside Glucose 246 mg/dL (74-106)
[2022-10-16 18:00] VITALS: BP 134/32; PULSE 53; RESP 12; TEMP 37; O2SAT 95
[2022-10-16] MEDS: 0.9% Normal Saline 1,000 ML 125 ML IV (18:15)
[2022-10-16 20:01] VITALS: BP 126/42; PULSE 64; RESP 18; TEMP 37.1; O2SAT 100
[2022-10-16] MEDS: Lactulose 20 GM/30 ML UDC PO (20:14)
[2022-10-16 21:40] LABS: Bedside Glucose 317 mg/dL (74-106)
[2022-10-17] VITALS (7 sets, daily range): BP systolic 140–160; BP diastolic 34–65; PULSE 68–72; RESP 16; TEMP 36.7–36.9; O2SAT 95–100
[2022-10-17] MEDS: 0.9% Normal Saline 1,000 ML 125 ML IV ×2 (02:18→11:31)
[2022-10-17 05:51] LABS: Absolute Lymphocyte Count 0.93 X10^3/uL (0.83-4.51); Absolute Neutrophil Count 5.2 X10^3/uL (2.0-7.7); Basophil# 0.05 X10^3/uL; Basophil% 0.7 % (0-1); Eosinophils% 7.9 % (0-5); Hematocrit 24.6 % (37-47); Hemoglobin 7.9 g/dL (12.0-15.0); Lymphocyte # 0.93 X10^3/ul (0.83-4.51); Lymphocyte % 12.3 % (19-41); Mean Corp Hgb Conc 32.1 g/dL (32-36); Mean Corpuscular Hgb 28.1 pg (27.0-32.0); Mean Corpuscular Volume 87.5 fL (81-99); Mean Platelet Vol. 10.1 fl (6.2-12.0); Monocyte# 0.74 X10^3/uL; Monocyte% 9.8 % (0-10); NRBC Flagged by Analyzer 0 % (0-5); Neutrophil # 5.21 X10^3/uL (2.7-7.7); Neutrophil % 68.6 % (47-70); Platelet Count 145 K/mm3 (150-450); RBC Distribution Width CV 15.1 % (11.6-14.6); RBC Distribution Width SD 48.3 fl (35.1-43.9); Red Blood Count 2.81 M/mm3 (4.2-5.4); White Blood Count 7.6 K/mm3 (4.4-11.0)
[2022-10-17 06:07] LABS: Differential Indicated SCAN CRITERIA MET
[2022-10-17 06:16] LABS: Anion Gap 7 (5-15); BUN 55 mg/dL (7-18); BUN/Creat Ratio 23.6 RATIO (10-20); Calcium,Total 7.9 mg/dL (8.5-10.1); Chloride 115 mmol/L (98-107); Creatinine, Serum 2.33 mg/dL (0.55-1.02); EST Glomerular Filtration Rate 22 mL/min (>60); Est Glom Filt Rate - Afr Amer 26 mL/min (>60); Estimated Creatinine Clearance 15.22 ml/min; Glucose 199 mg/dL (74-106); Potassium 4.4 mmol/L (3.5-5.1); Sodium Level 139 mmol/L (136-145)
[2022-10-17 07:25] LABS: Bedside Glucose 164 mg/dL (74-106)
[2022-10-17] MEDS: Insulin Lispro 100 UNIT/ML INSULN.PEN SC ×4 (07:25→21:16)
[2022-10-17] MEDS: Labetalol 100 MG Tablet 50 MG PO ×2 (08:42→21:14)
[2022-10-17] MEDS: Iron Polysaccharide Complex 150 MG CAPSULE PO (08:42)
[2022-10-17] MEDS: rifAXIMin 550 MG Tablet PO ×2 (08:44→21:14)
[2022-10-17] MEDS: Heparin Injection (Vial) 5,000 UNIT/ML VIAL 5000 UNIT SC ×2 (08:44→21:17)
[2022-10-17] MEDS: Lactulose 20 GM/30 ML UDC PO ×2 (08:44→16:46)
--- NOTE | 2022-10-17 10:50 | CASEMGMT ---
LISA SALCIDO NOTE: E-mail received that pt is [facility] w[facility]. LISA SALCIDO to room to talk w/pt and to discuss discharge planning. Pt sitting up in recliner chair in room. Pt confirms she is active w/[facility] and states would like to resume care. While RN LOLY in room, pt's called to talk w/pt. Pt put LISA SALCIDO on the phone. states he feels pt will be safe to return home and he confirms he would like pt to resume HHC w/[facility] and declines wanting list of other HHC options. He and pt both agreeable to having PT/OT added. states he assists pt when she is up ambulating (mostly SBA), he manages her medications, and does most IADL's. made aware anticipate pt will be ready for d/c tomorrow. He states he can bring in portable O2 tank for pt to go home on. He states they do have a pulse ox. Call placed to Génesis @ [facility]. She was made aware anticipate pt ready for discharge tomorrow and PT/OT added. ARGENIS order placed w/therapy added. Call to Kaity @ [facility]. She states pt's current O2 orders are 2 l/m continuously. If pt qualifies for more than 2 l/m, will need updated O2 script faxed to [facility]. Green sheet placed on chart if pt qualifies for increase in O2, for [facility], and for d/c instructions to be faxed to CM/[facility]. Ad RANDOLPH RN, Cm
[2022-10-17 12:00] LABS: Bedside Glucose 253 mg/dL (74-106)
--- NOTE | 2022-10-17 14:53 | PN.HOSP_ITS ---
Subjective Subjective Still feeling generally weak but improving, breathing improving. Objective Data Objective Data Vital Signs: Vital Signs Temp Pulse Resp BP Pulse Ox O2 Del Method O2 Flow Rate 98.5 F 70 16 150/60 H 97 Nasal Cannula 3 10/17/22 08:30 10/17/22 08:30 10/17/22 08:30 10/17/22 08:30 10/17/22 10:42 10/17/22 08:58 10/17/22 10:42 Oxygen Flow Rate (L/min) 3 Oxygen Delivery Method Nasal Cannula Weight: 64.9 kg Body Mass Index (BMI) 26.4 Intake & Output: Intake and Output for Last 24 Hours 10/15/22 10/16/22 10/17/22 23:59 23:59 23:59 Intake Total 1999 2340 / 2340 1999 Output Total 300 / 300 Balance 1999 Lab / Micro Data Result Diagrams: 10/17/22 05:33 10/17/22 05:33 Labs: Laboratory Results - last 24 hr 10/16/22 16:33: POC Glucose 246 H 10/16/22 20:11: POC Glucose 317 H 10/17/22 05:33: WBC 7.6, RBC 2.81 L, Hgb 7.9 L, Hct 24.6 L, MCV 87.5 D, MCH 28.1, MCHC 32.1, RDW Std Deviation 48.3 H, RDW Coeff of Jordan 15.1 H, Plt Count 145 L, MPV 10.1, Immature Gran % (Auto) 0.700, Neut % (Auto) 68.6, Lymph % (Auto) 12.3 L, [place] % (Auto) 9.8, Eos % (Auto) 7.9 H, Baso % (Auto) 0.7, Absolute Neuts (auto) 5.2, Absolute Lymphs (auto) 0.93, Nucleated RBC % 0 10/17/22 05:33: Sodium 139, Potassium 4.4, Chloride 115 H, Carbon Dioxide 17.0 L , Anion Gap 7, BUN 55 H, Creatinine 2.33 H, Estim Creat Clear Calc 15.22, Est GFR (MDRD) Af Amer 26 L, Est GFR (MDRD) Non-Af 22 L, BUN/Creatinine Ratio 23.6 H , Glucose 199 H, Calcium 7.9 L 10/17/22 06:55: POC Glucose 164 H 10/17/22 11:42: POC Glucose 253 H Micro: Microbiology 10/15/22 21:39 Mucosa - Nasopharyngeal Respiratory Panel (PCR) - Final Radiography Diagnostic Testing: Radiology Impression Renal Ultrasound 10/16/22 05:55 IMPRESSION: Mild Right hydronephrosis. Bilateral renal cortical thinning suggestive of underlying medical renal disease. Electronically Signed: Salma Tompkins MD at 15:58 EST , Physical Exam Const alert and no apparent distress Constitutional Narrative: Oriented HEENT normocephalic and head/scalp atraumatic Eyes Eyes Narrative: EOM grossly intact, anicteric Neck supple Resp normal respiratory effort Resp Narrative: Diminished at the bases Cardio regular rate and regular rhythm GI soft to palpation, non-tender and non-distended Extremity Extremity Narrative: No edema appreciated Neuro moves all extremities Neuro Narrative: No overt focal deficits appreciated Psych Psych Narrative: Cooperative Assessment & Plan Assessment/Plan (1) Acute kidney injury: PLAN: Plan #SKY on CKD stage III unclear subtype Improved today with fluids but still far from baseline Continue to hold nephrotoxic agents 10/17: Continues to improve, if closer to baseline tomorrow likely DC home. Has been receiving significant hydration, will now hold at this time to avoid overload #Nonalcoholic liver cirrhosis with history of hepatic encephalopathy status post prior TIPS procedure Follows with GI as an outpatient Given SKY currently torsemide, spironolactone, ramipril have been held and she is being hydrated Will resume when able/appropriate Continue rifaximin and labetalol as well as lactulose #Type 2 diabetes mellitus Glucose checks and sliding scale insulin #DVT ppx: Heparin subcu Ashley Yi MD Charges/Coding Visit Charges Inpatient E&M: 82970 Subs Hosp L2
[2022-10-17 16:26] LABS: Bedside Glucose 302 mg/dL (74-106)
[2022-10-17] MEDS: 0.9% Saline Lock 10 ML Syringe IV (20:37)
[2022-10-17] MEDS: Atorvastatin Calcium 40 MG Tablet PO (21:14)
[2022-10-17 21:55] LABS: Bedside Glucose 250 mg/dL (74-106)
[2022-10-18] VITALS (8 sets, daily range): BP systolic 129–163; BP diastolic 35–66; PULSE 64–71; RESP 16–18; TEMP 36.8–37.1; O2SAT 100
[2022-10-18] MEDS: Insulin Lispro 100 UNIT/ML INSULN.PEN SC ×4 (06:33→21:12)
[2022-10-18] MEDS: Lactulose 20 GM/30 ML UDC PO ×4 (06:34→21:21)
[2022-10-18 07:05] LABS: Bedside Glucose 152 mg/dL (74-106)
[2022-10-18 07:05] LABS: Absolute Lymphocyte Count 0.97 X10^3/uL (0.83-4.51); Absolute Neutrophil Count 5.3 X10^3/uL (2.0-7.7); Basophil# 0.06 X10^3/uL; Basophil% 0.8 % (0-1); Eosinophil# 0.73 X10^3/uL; Eosinophils% 9.4 % (0-5); Hematocrit 25.7 % (37-47); Hemoglobin 8.1 g/dL (12.0-15.0); Lymphocyte # 0.97 X10^3/ul (0.83-4.51); Lymphocyte % 12.5 % (19-41); Mean Corp Hgb Conc 31.5 g/dL (32-36); Mean Corpuscular Hgb 27.5 pg (27.0-32.0); Mean Corpuscular Volume 87.1 fL (81-99); Mean Platelet Vol. 9.6 fl (6.2-12.0); Monocyte# 0.67 X10^3/uL; Monocyte% 8.6 % (0-10); NRBC Flagged by Analyzer 0 % (0-5); Neutrophil # 5.27 X10^3/uL (2.7-7.7); Neutrophil % 67.9 % (47-70); Platelet Count 146 K/mm3 (150-450); RBC Distribution Width CV 15.3 % (11.6-14.6); RBC Distribution Width SD 48.3 fl (35.1-43.9); Red Blood Count 2.95 M/mm3 (4.2-5.4); White Blood Count 7.8 K/mm3 (4.4-11.0)
[2022-10-18 07:33] LABS: ALB/GLOB Ratio 0.6 RATIO (0.9-2.4); AST(SGOT) 17 U/L (15-37); Alanine Aminotransfer ALT/SGPT 19 U/L (13-56); Albumin, Serum 2.1 g/dL (3.2-5.0); Alkaline Phosphatase 96 U/L (45-117); Anion Gap 2 (5-15); BUN 39 mg/dL (7-18); Calcium,Total 8.9 mg/dL (8.5-10.1); Chloride 121 mmol/L (98-107); Creatinine, Serum 1.86 mg/dL (0.55-1.02); EST Glomerular Filtration Rate 28 mL/min (>60); Est Glom Filt Rate - Afr Amer 34 mL/min (>60); Estimated Creatinine Clearance 19.06 ml/min; Globulin 3.5 g/dL (2.2-4.2); Glucose 180 mg/dL (74-106); Potassium 4.5 mmol/L (3.5-5.1); Protein, Total 5.6 g/dL (6.4-8.2); Sodium Level 143 mmol/L (136-145)
[2022-10-18] MEDS: Iron Polysaccharide Complex 150 MG CAPSULE PO (09:54)
[2022-10-18] MEDS: Heparin Injection (Vial) 5,000 UNIT/ML VIAL 5000 UNIT SC ×2 (09:54→21:13)
[2022-10-18] MEDS: rifAXIMin 550 MG Tablet PO ×2 (09:55→21:21)
[2022-10-18] MEDS: Labetalol 100 MG Tablet 50 MG PO ×2 (09:55→21:20)
--- NOTE | 2022-10-18 10:05 | PN.HOSP_ITS ---
Subjective Subjective He had a banana this morning and has felt nauseated and had some abdominal pain. Reports she has been having bowel move. This does happen intermittently at home but presently she feels very sick and weak. Objective Data Objective Data Vital Signs: Vital Signs Temp Pulse Resp BP Pulse Ox O2 Del Method O2 Flow Rate 98.4 F 64 18 162/65 H 100 Nasal Cannula 2 10/18/22 09:52 10/18/22 09:52 10/18/22 09:52 10/18/22 09:52 10/18/22 09:52 10/18/22 09:52 10/18/22 09:52 Oxygen Flow Rate (L/min) 2 Oxygen Delivery Method Nasal Cannula Weight: 64.6 kg Body Mass Index (BMI) 26.4 Intake & Output: Intake and Output for Last 24 Hours 10/16/22 10/17/22 10/18/22 23:59 23:59 23:59 Intake Total 2340 / 2340 3000 / 3000 240 / 240 Output Total 300 / 300 Balance 2040 / 2040 3000 / 3000 240 / 240 Lab / Micro Data Result Diagrams: 10/18/22 06:56 10/18/22 06:56 Labs: Laboratory Results - last 24 hr 10/17/22 11:42: POC Glucose 253 H 10/17/22 15:57: POC Glucose 302 H 10/17/22 21:10: POC Glucose 250 H 10/18/22 06:32: POC Glucose 152 H 10/18/22 06:56: WBC 7.8, RBC 2.95 L, Hgb 8.1 L, Hct 25.7 L, MCV 87.1, MCH 27.5, MCHC 31.5 L, RDW Std Deviation 48.3 H, RDW Coeff of Jordan 15.3 H, Plt Count 146 L, MPV 9.6, Immature Gran % (Auto) 0.800, Neut % (Auto) 67.9, Lymph % (Auto) 12.5 L , Desha % (Auto) 8.6, Eos % (Auto) 9.4 H, Baso % (Auto) 0.8, Absolute Neuts (auto) 5.3, Absolute Lymphs (auto) 0.97, Nucleated RBC % 0 10/18/22 06:56: Sodium 143, Potassium 4.5, Chloride 121 H, Carbon Dioxide 20.0 L , Anion Gap 2 L, BUN 39 H, Creatinine 1.86 H, Estim Creat Clear Calc 19.06, Est GFR (MDRD) Af Amer 34 L, Est GFR (MDRD) Non-Af 28 L, BUN/Creatinine Ratio 21.0 H , Glucose 180 H, Calcium 8.9, Total Bilirubin 0.40, AST 17, ALT 19, Alkaline Phosphatase 96, Total Protein 5.6 L, Albumin 2.1 L, Globulin 3.5, Albumin/Globulin Ratio 0.6 L Micro: Microbiology 10/15/22 21:39 Mucosa - Nasopharyngeal Respiratory Panel (PCR) - Final Physical Exam Const alert Constitutional Narrative: Oriented HEENT normocephalic and head/scalp atraumatic Eyes Eyes Narrative: EOM grossly intact, anicteric Neck supple Resp normal respiratory effort Cardio regular rate and regular rhythm GI soft to palpation and non-distended GI Narrative: Minimal tenderness periumbilically, no rebound, no guarding, no rigidity Extremity Extremity Narrative: No edema appreciated Neuro moves all extremities Neuro Narrative: No overt focal deficits appreciated Psych Psych Narrative: Cooperative Assessment & Plan Assessment/Plan (1) Acute kidney injury: PLAN: Plan #Nausea and abdominal pain Reports this happens intermittently at home but presently feeling significantly nauseous and weak Abdominal exam not overly remarkable but will check lipase and lactic acid as well as KUB Zofran as needed LFTs this morning within normal limits She begins feeling better may be able to discharge this afternoon however if remaining nauseous with vomiting and weakness will likely have to monitor overnight #SKY on CKD stage III unclear subtype Improved today with fluids but still far from baseline Continue to hold nephrotoxic agents 10/17: Continues to improve, if closer to baseline tomorrow likely DC home. Has been receiving significant hydration, will now hold at this time to avoid overload 10/18: Significantly improved, can be discharged from a kidney standpoint #Nonalcoholic liver cirrhosis with history of hepatic encephalopathy status post prior TIPS procedure Follows with GI as an outpatient Given SKY currently torsemide, spironolactone, ramipril have been held and she is being hydrated Will resume when able/appropriate Continue rifaximin and labetalol as well as lactulose #Type 2 diabetes mellitus Glucose checks and sliding scale insulin #DVT ppx: Heparin subcu Ashley Yi MD Charges/Coding Visit Charges Inpatient E&M: 16837 Subs Hosp L2
--- NOTE | 2022-10-18 10:08 | RAD_ITS ---
STUDY: X-RAY - ABDOMEN/PELVIS REASON FOR EXAM: Female, 72 years old. Nausea, abd pain TECHNIQUE: Two AP supine views of the abdomen and pelvis. COMPARISON: None. FINDINGS: Normal visualized lung bases. Nondistended air-filled loops of small large bowel throughout the abdomen consistent with both small bowel and colonic ileus. No obstruction or free air noted The visualized liver, spleen and kidneys are grossly normal in size and morphology. Normal soft tissue structures. Normal visualized osseous structures. RAD/Abdomen Single View (Portable) IMPRESSION: Ileus Electronically Signed: Jose Iniguez MD at 12:33 EST ,
[2022-10-18 11:28] LABS: Lipase 427 U/L (73-393)
[2022-10-18 11:34] LABS: Lactic Acid 1.2 mmol/L (0.4-1.9)
[2022-10-18 12:05] LABS: Bedside Glucose 212 mg/dL (74-106)
[2022-10-18] MEDS: Lactated Ringers 1,000 ML 60 ML IV (13:43)
[2022-10-18] MEDS: Menthol/Lanolin/Calamine/Znox 113 GM Tube 1 APPLIC TOPICAL ×3 (15:39→21:28)
[2022-10-18 17:10] LABS: Bedside Glucose 255 mg/dL (74-106)
[2022-10-18] MEDS: Atorvastatin Calcium 40 MG Tablet PO (21:20)
[2022-10-18 21:50] LABS: Bedside Glucose 314 mg/dL (74-106)
[2022-10-18] MEDS: 0.9% Saline Lock 10 ML Syringe IV (23:44)
[2022-10-18] MEDS: Ondansetron 4 MG/2 ML Vial IV (23:44)
[2022-10-19 03:24] VITALS: BP 111/48; PULSE 66; RESP 16; TEMP 37.1; O2SAT 99
[2022-10-19 05:18] LABS: Absolute Lymphocyte Count 1.08 X10^3/uL (0.83-4.51); Absolute Neutrophil Count 5.5 X10^3/uL (2.0-7.7); Basophil# 0.06 X10^3/uL; Basophil% 0.7 % (0-1); Eosinophil# 0.69 X10^3/uL; Eosinophils% 8.6 % (0-5); Hematocrit 23.7 % (37-47); Hemoglobin 7.8 g/dL (12.0-15.0); Lymphocyte # 1.08 X10^3/ul (0.83-4.51); Lymphocyte % 13.4 % (19-41); Mean Corp Hgb Conc 32.9 g/dL (32-36); Mean Corpuscular Hgb 27.8 pg (27.0-32.0); Mean Corpuscular Volume 84.3 fL (81-99); Mean Platelet Vol. 9.9 fl (6.2-12.0); Monocyte# 0.68 X10^3/uL; Monocyte% 8.5 % (0-10); NRBC Flagged by Analyzer 0 % (0-5); Neutrophil # 5.47 X10^3/uL (2.7-7.7); Neutrophil % 68.2 % (47-70); Platelet Count 126 K/mm3 (150-450); RBC Distribution Width CV 15.3 % (11.6-14.6); RBC Distribution Width SD 46.7 fl (35.1-43.9); Red Blood Count 2.81 M/mm3 (4.2-5.4)
[2022-10-19 05:46] LABS: ALB/GLOB Ratio 0.5 RATIO (0.9-2.4); AST(SGOT) 19 U/L (15-37); Alanine Aminotransfer ALT/SGPT 21 U/L (13-56); Albumin, Serum 1.7 g/dL (3.2-5.0); Alkaline Phosphatase 86 U/L (45-117); Anion Gap 8 (5-15); BUN 27 mg/dL (7-18); BUN/Creat Ratio 17.5 RATIO (10-20); Calcium,Total 8.5 mg/dL (8.5-10.1); Chloride 120 mmol/L (98-107); Creatinine, Serum 1.54 mg/dL (0.55-1.02); EST Glomerular Filtration Rate 35 mL/min (>60); Est Glom Filt Rate - Afr Amer 42 mL/min (>60); Estimated Creatinine Clearance 23.02 ml/min; Globulin 3.4 g/dL (2.2-4.2); Glucose 207 mg/dL (74-106); Potassium 4.3 mmol/L (3.5-5.1); Protein, Total 5.1 g/dL (6.4-8.2); Sodium Level 139 mmol/L (136-145)
[2022-10-19] MEDS: Insulin Lispro 100 UNIT/ML INSULN.PEN SC ×2 (06:39→11:19)
[2022-10-19 07:01] LABS: Bedside Glucose 219 mg/dL (74-106)
--- NOTE | 2022-10-19 08:37 | DCINST_ITS ---
Discharge Instructions Diet Discharge Diet: No restrictions Activity Discharge Activity: Return to Normal Activity Follow Up Care Test Results: Test results from this visit will be discussed in further detail at your follow- up appointment, if applicable. Discharge Plan Admission Admit Date/Time: 10/15/22 21:00 Primary Reason for Your Visit: Weakness and dizziness Attending Provider: Ashley Yi Primary Care Provider: Josiah Smith Consulting Providers: Miriam Valdes Instructions Patient Instructions: ED Cirrhosis Additional Instructions / Restrictions: *Please take this with you to your next doctors appointment* Please read, discharge instructions ?You will need blood work (BMP) in 2 to 3 days to monitor your kidney function. Please call your primary care physician upon discharge to obtain lab work order ?Your water pill, furosemide, has been decreased to 10 mg as you were dehydrated when you presented. You will need to weigh yourself daily and if you gain more than 2 pounds please call your primary care physician as you may need to i ncrease this medication. It will be very important that you follow-up with your primary care physician on discharge for optimal timing when to adjust this medication ? You are also taking spironolactone, this will be decreased to 25 mg daily ?Torsemide was on your home medication list, please discontinue this ?Because of your worsened kidney function your ramipril has been held. Do not continue this until discussing with your primary care physician ?Your glimepiride has been decreased to 2 mg to avoid low blood sugar, please discuss your diabetes medication regimen with your primary care physician for any further changes or adjustments ?Tizanidine can cause dizziness and falls, this was on your home medication list. Please discuss this medication with your primary care physician ?Continue to follow with your GI doctor for your liver on discharge ?Continue rifaximin and lactulose ? You are to have home health upon discharge, if this has not already been arranged for you please call your primary care physician's office on Thursday to coordinate further services ?For the changes in your medications you can take one half of your Lasix pill and one half of your glimepiride and continue to use your spironolactone prescription. -Please call your primary care provider's office upon discharge to schedule a hospital follow up within 1 week. -For any concerning signs or symptoms please call 911 or proceed to the nearest emergency department Discharge Orders/Prescriptions Prescriptions: Continued atorvastatin [Lipitor] 40 mg Tablet 40 mg PO QHS labetalol 100 mg tablet 50 mg PO BID polysaccharide iron complex [Ferrex 150] 150 mg iron Capsule 150 mg PO DAILYCM Qty: 90 0RF ondansetron 4 mg tablet,disintegrating 4 mg PO Q6H PRN PRN (Reason: nausea/vomiting) Label Comments: Take 1 tablet by mouth every 6 hours as needed for nausea/vomiting. lactulose 10 gram/15 mL solution 30 ml PO 4X/DAY Label Comments: Take 30 mL by mouth four times daily. Xifaxan 550 mg tablet 550 mg PO BID Label Comments: TAKE 1 TABLET BY MOUTH TWICE DAILY Changed spironolactone 25 mg tablet 25 mg PO DAILY Qty: 30 0RF Label Comments: TAKE 1 TABLET BY MOUTH TWICE DAILY glimepiride 4 mg tablet 2 mg PO BREAKFAST Qty: 30 0RF Label Comments: TAKE 2 TABLETS BY MOUTH DAILY WITH BREAKFAST furosemide 20 mg tablet 10 mg PO DAILY Qty: 30 0RF Label Comments: TAKE 1 TABLET BY MOUTH ONCE DAILY Discontinued torsemide 20 mg tablet 40 mg PO DAILY Label Comments: Take 2 tablets by mouth once daily. ramipril 5 mg Capsule 5 mg PO QHS tizanidine 4 mg tablet 4 mg PO PRN PRN (Reason: Muscle Pain) Label Comments: Take 1 tablet by mouth every 8 hours as needed (muscle spasms) for up to 10 days. Referrals / Follow Up: Josiah Smith MD [Primary Care Provider] - Within 1 Week Disposition Disposition (needs filled in before D/C Order can be placed): Home Health Service
[2022-10-19 08:46] VITALS: O2SAT 96
--- NOTE | 2022-10-19 09:42 | DS.PCM_ITS ---
Providers Date of Admission: 10/15/22 Date of Discharge: 10/19/22 Primary Care Physician: Dr. Josiah Smith MD Reason For Visit: SKY Diagnosis Discharge Diagnosis (1) Acute kidney injury: Status: Acute Code(s): N17.9 - Acute kidney failure, unspecified Plan #Nausea and abdominal pain #SYK on CKD stage III unclear subtype #Nonalcoholic liver cirrhosis with history of hepatic encephalopathy status post prior TIPS procedure #Type 2 diabetes mellitus Medications at Discharge Home Medications atorvastatin 40 mg tablet (Lipitor) 40 mg PO QHS cholesterol 02/09/22 labetalol 100 mg tablet 50 mg PO BID blood pressure 05/26/22 polysaccharide iron complex 150 mg iron capsule (Ferrex) 150 mg PO DAILYCM #90 caps 05/28/22 lactulose 10 gram/15 mL oral solution 30 ml PO 4X/DAY liver 10/16/22 ondansetron 4 mg disintegrating tablet 4 mg PO Q6H PRN PRN nausea/vomiting 10/16/22 rifaximin 550 mg tablet (Xifaxan) 550 mg PO BID liver 10/16/22 furosemide 20 mg tablet 10 mg PO DAILY water pill #30 tabs 10/19/22 glimepiride 4 mg tablet 2 mg PO BREAKFAST diabetes #30 tabs 10/19/22 spironolactone 25 mg tablet 25 mg PO DAILY liver #30 tabs 10/19/22 Hospital Course Summary of Care Provided Minutes Spent on Discharge: 35 Hospital Course: 74 with history of type 2 diabetes mellitus, nonalcoholic liver cirrhosis, CKD stage III unclear subtype, history of hepatic encephalopathy status post TIPS with Dr. Gaming who presented 10/15 with weakness, dizziness, debility, decreased oral intake. She was found to have SKY on CKD and appeared to be dehydrated, she was admitted and placed on fluids and her diuretics were held. Her creatinine significantly improved and she was doing well and plan was for discharge home however she developed some nausea and abdominal pain, KUB showed ileus and she was made n.p.o. and started on fluids and given Zofran, lipase mildly elevated but appeared to be due to her vomiting, CT not obtained due to her SKY and want to avoid contrast but on repeat evaluation several hours later she was feeling much better, advance diet and took off fluids and she was doing well, abdominal pain had resolved and so did her nausea by the next day and she was passing gas without difficulty, reported she would wanted to go home. On the day of discharge she denied nausea, was passing gas okay, no abdominal pain, breathing fair. Instructions provided as below: ?You will need blood work (BMP) in 2 to 3 days to monitor your kidney function.? Please call your primary care physician upon discharge to obtain lab work order ?Your water pill, furosemide, has been decreased to 10 mg as you were dehydrated when you presented.? You will need to weigh yourself daily and if you gain more than 2 pounds please call your primary care physician as you may need to increase this medication.? It will be very important that you follow-up with your primary care physician on discharge for optimal timing when to adjust this medication ? You are also taking spironolactone, this will be decreased to 25 mg daily ?Torsemide was on your home medication list, please discontinue this ?Because of your worsened kidney function your ramipril has been held.? Do not continue this until discussing with your primary care physician ?Your glimepiride has been decreased to 2 mg to avoid low blood sugar, please discuss your diabetes medication regimen with your primary care physician for any further changes or adjustments ?Tizanidine can cause dizziness and falls, this was on your home medication list.? Please discuss this medication with your primary care physician ?Continue to follow with your GI doctor for your liver on discharge ?Continue rifaximin and lactulose ? You are to have home health upon discharge, if this has not already been arranged for you please call your primary care physician's office on Thursday to coordinate further services ?For the changes in your medications you can take one half of your Lasix pill and one half of your glimepiride and continue to use your spironolactone prescription. -Please call your primary care provider's office upon discharge to schedule a hospital follow up within 1 week. -For any concerning signs or symptoms please call 911 or proceed to the nearest emergency department Physical Exam Const alert Constitutional Narrative: Oriented HEENT normocephalic and head/scalp atraumatic Eyes Eyes Narrative: EOM grossly intact, anicteric Neck supple Resp normal respiratory effort Cardio regular rate and regular rhythm GI soft to palpation and non-distended GI Narrative: Nontender, no rebound, no guarding, no rigidity Extremity Extremity Narrative: No edema appreciated Neuro moves all extremities Neuro Narrative: No overt focal deficits appreciated Psych Psych Narrative: Cooperative Weight / BMI Weight Weight: 67.132 kg Body Mass Index (BMI) 26.4 ABG / Lab / Microbiology Data Result Diagrams: 10/19/22 05:04 10/19/22 05:04 Laboratory: Laboratory Results - last 24 hr 10/18/22 10:50: Lipase 427 H 10/18/22 10:50: Lactic Acid 1.2 10/18/22 11:43: POC Glucose 212 H 10/18/22 16:52: POC Glucose 255 H 10/18/22 21:11: POC Glucose 314 H 10/19/22 05:04: WBC 8.0, RBC 2.81 L, Hgb 7.8 L, Hct 23.7 L, MCV 84.3, MCH 27.8, MCHC 32.9, RDW Std Deviation 46.7 H, RDW Coeff of [place] 15.3 H, Plt Count 126 L, MPV 9.9, Immature Gran % (Auto) 0.600, Neut % (Auto) 68.2, Lymph % (Auto) 13.4 L , [place] % (Auto) 8.5, Eos % (Auto) 8.6 H, Baso % (Auto) 0.7, Absolute Neuts (auto) 5.5, Absolute Lymphs (auto) 1.08, Nucleated RBC % 0 10/19/22 05:04: Sodium 139, Potassium 4.3, Chloride 120 H, Carbon Dioxide 11.0 L , Anion Gap 8, BUN 27 H, Creatinine 1.54 H, Estim Creat Clear Calc 23.02, Est GFR (MDRD) Af Amer 42 L, Est GFR (MDRD) Non-Af 35 L, BUN/Creatinine Ratio 17.5, Glucose 207 H, Calcium 8.5, Total Bilirubin 0.30, AST 19, ALT 21, Alkaline Phosphatase 86, Total Protein 5.1 L, Albumin 1.7 L, Globulin 3.4, Albumin/Globulin Ratio 0.5 L 10/19/22 06:31: POC Glucose 219 H Microbiology: Microbiology 10/15/22 21:39 Mucosa - Nasopharyngeal Respiratory Panel (PCR) - Final Radiography Diagnostic Testing: Radiology Impression KUB X-Ray 10/18/22 10:08 IMPRESSION: Ileus Electronically Signed: Jose Iniguez MD at 12:33 EST , D/C Instructions Discharge Diet: No restrictions Meaningful Use Info Meaningful Use Diagnoses (Choose all that apply): None applicable Discharge Plan Admission Admit Date/Time: 10/15/22 21:00 Primary Reason for Your Visit: Weakness and dizziness Attending Provider: Ashley Yi Primary Care Provider: Josiah Smith Consulting Providers: Miriam Valdes Instructions Patient Instructions: ED Cirrhosis Additional Instructions / Restrictions: *Please take this with you to your next doctors appointment* Please read, discharge instructions ?You will need blood work (BMP) in 2 to 3 days to monitor your kidney function. Please call your primary care physician upon discharge to obtain lab work order ?Your water pill, furosemide, has been decreased to 10 mg as you were dehydrated when you presented. You will need to weigh yourself daily and if you gain more than 2 pounds please call your primary care physician as you may need to in crease this medication. It will be very important that you follow-up with your primary care physician on discharge for optimal timing when to adjust this medication ? You are also taking spironolactone, this will be decreased to 25 mg daily ?Torsemide was on your home medication list, please discontinue this ?Because of your worsened kidney function your ramipril has been held. Do not continue this until discussing with your primary care physician ?Your glimepiride has been decreased to 2 mg to avoid low blood sugar, please discuss your diabetes medication regimen with your primary care physician for any further changes or adjustments ?Tizanidine can cause dizziness and falls, this was on your home medication list. Please discuss this medication with your primary care physician ?Continue to follow with your GI doctor for your liver on discharge ?Continue rifaximin and lactulose ? You are to have home health upon discharge, if this has not already been arranged for you please call your primary care physician's office on Thursday to coordinate further services ?For the changes in your medications you can take one half of your Lasix pill and one half of your glimepiride and continue to use your spironolactone prescription. -Please call your primary care provider's office upon discharge to schedule a hospital follow up within 1 week. -For any concerning signs or symptoms please call 911 or proceed to the nearest emergency department Discharge Orders/Prescriptions Prescriptions: Continued atorvastatin [Lipitor] 40 mg Tablet 40 mg PO QHS labetalol 100 mg tablet 50 mg PO BID polysaccharide iron complex [Ferrex 150] 150 mg iron Capsule 150 mg PO DAILYCM Qty: 90 0RF ondansetron 4 mg tablet,disintegrating 4 mg PO Q6H PRN PRN (Reason: nausea/vomiting) Label Comments: Take 1 tablet by mouth every 6 hours as needed for nausea/vomiting. lactulose 10 gram/15 mL solution 30 ml PO 4X/DAY Label Comments: Take 30 mL by mouth four times daily. Xifaxan 550 mg tablet 550 mg PO BID Label Comments: TAKE 1 TABLET BY MOUTH TWICE DAILY Changed spironolactone 25 mg tablet 25 mg PO DAILY Qty: 30 0RF Label Comments: TAKE 1 TABLET BY MOUTH TWICE DAILY glimepiride 4 mg tablet 2 mg PO BREAKFAST Qty: 30 0RF Label Comments: TAKE 2 TABLETS BY MOUTH DAILY WITH BREAKFAST furosemide 20 mg tablet 10 mg PO DAILY Qty: 30 0RF Label Comments: TAKE 1 TABLET BY MOUTH ONCE DAILY Discontinued torsemide 20 mg tablet 40 mg PO DAILY Label Comments: Take 2 tablets by mouth once daily. ramipril 5 mg Capsule 5 mg PO QHS tizanidine 4 mg tablet 4 mg PO PRN PRN (Reason: Muscle Pain) Label Comments: Take 1 tablet by mouth every 8 hours as needed (muscle spasms) for up to 10 days. Referrals / Follow Up: Josiah Smith MD [Primary Care Provider] - Within 1 Week Disposition Disposition (needs filled in before D/C Order can be placed): Home Health Service Charges/Coding Visit Charges Inpatient E&M: 67422 Disch Hosp >30min
[2022-10-19 09:53] VITALS: BP 148/36; PULSE 72; RESP 18; TEMP 37.2; O2SAT 100
[2022-10-19] MEDS: rifAXIMin 550 MG Tablet PO (10:00)
[2022-10-19] MEDS: Labetalol 100 MG Tablet 50 MG PO (10:00)
[2022-10-19] MEDS: Iron Polysaccharide Complex 150 MG CAPSULE PO (10:01)
[2022-10-19] MEDS: Lactulose 20 GM/30 ML UDC PO (10:01)
[2022-10-19] MEDS: Heparin Injection (Vial) 5,000 UNIT/ML VIAL 5000 UNIT SC (10:01)
--- NOTE | 2022-10-19 10:19 | NURSING ---
spouse notified of discharge order as well as Briseyda pt daughter (per pt request). Briseyda states they will be in after lunch to take pt home.
--- NOTE | 2022-10-19 10:32 | NURSING ---
male phoned in, states he is pt son Franklin- inquired about discharge. updated. Franklin states he will be here around 1300 to fern picker pt.
[2022-10-19 11:40] LABS: Bedside Glucose 251 mg/dL (74-106)
[2022-10-19] MEDS: Menthol/Lanolin/Calamine/Znox 113 GM Tube 1 APPLIC TOPICAL (11:45)
== END 2022-10-19 13:32 | disposition home health service (06) | DRG 683 ==
LOC: ED 21:22 → MS2 21:42
PROVIDERS: Admitting Provider Family Medicine; Emergency Provider Emergency Medicine; PCP Family Medicine; Visit Provider Internal Medicine
DX: N17.9 Acute kidney failure, unspecified (principal); E87.1 Hypo-osmolality and hyponatremia; K56.7 Ileus, unspecified; D69.6 Thrombocytopenia, unspecified; D63.1 Anemia in chronic kidney disease; E11.22 Type 2 diabetes mellitus with diabetic chronic kidney disease; K74.60 Unspecified cirrhosis of liver; N18.30 Chronic kidney disease, stage 3 unspecified; J44.9 Chronic obstructive pulmonary disease, unspecified; E86.0 Dehydration; E78.5 Hyperlipidemia, unspecified; K21.9 Gastro-esophageal reflux disease without esophagitis; I12.9 Hypertensive chronic kidney disease with stage 1 through stage 4 chronic kidney disease, or unspecified chronic kidney disease; F41.9 Anxiety disorder, unspecified; F32.A Depression, unspecified; Z66 Do not resuscitate; Z51.5 Encounter for palliative care; Z79.84 Long term (current) use of oral hypoglycemic drugs; Z79.899 Other long term (current) drug therapy; Z87.891 Personal history of nicotine dependence
CPT/HCPCS: 36415; 71045; 74018; 76770; 80048; 80053; 80076; 81001; 82140; 82570; 82962; 83605; 83690; 84300; 85025; 85610; 85730; 87633; 87635; 93005; 97110; 97162; 97166; 97530; 97535; 99251; 99283; J7030; J7040; J7120; A4216; G0463; J2405; U0003; U0005

== ENCOUNTER 2022-11-13 13:12 | Outpatient (RCR) | payer MEDICARE, MEDICAID, SELFPAY ==
[2022-11-13 13:59] LABS: Hemoglobin 9.1 g/dL (12.0-15.0); Mean Corp Hgb Conc 32.5 g/dL (32-36); Mean Corpuscular Hgb 27.2 pg (27.0-32.0); Mean Corpuscular Volume 83.6 fL (81-99); Mean Platelet Vol. 10.5 fl (6.2-12.0); Platelet Count 332 K/mm3 (150-450); RBC Distribution Width CV 15.9 % (11.6-14.6); Red Blood Count 3.35 M/mm3 (4.2-5.4); White Blood Count 12.5 K/mm3 (4.4-11.0)
[2022-11-13 14:09] LABS: Anion Gap 9 (5-15); BUN 72 mg/dL (7-18); BUN/Creat Ratio 16.8 RATIO (10-20); Calcium,Total 9.5 mg/dL (8.5-10.1); Chloride 106 mmol/L (98-107); Creatinine, Serum 4.29 mg/dL (0.55-1.02); EST Glomerular Filtration Rate 11 mL/min (>60); Est Glom Filt Rate - Afr Amer 13 mL/min (>60); Glucose 272 mg/dL (74-106); Potassium 5.1 mmol/L (3.5-5.1); Sodium Level 136 mmol/L (136-145)
== END 2022-11-18 23:59 ==
LOC: HHLAB 13:12
PROVIDERS: PCP Family Medicine; Referring Provider Family Medicine; Visit Provider Family Medicine
DX: E86.0 Dehydration (principal); N17.9 Acute kidney failure, unspecified; I12.9 Hypertensive chronic kidney disease with stage 1 through stage 4 chronic kidney disease, or unspecified chronic kidney disease; N18.9 Chronic kidney disease, unspecified
CPT/HCPCS: 80048; 82140; 85027

== ENCOUNTER 2022-11-20 14:39 | Inpatient (IN) | payer MEDICARE, MEDICAID, SELFPAY ==
[2022-11-20] VITALS (7 sets, daily range): BP systolic 101–122; BP diastolic 42–56; PULSE 64–77; RESP 16–20; TEMP 35.7–36.7; O2SAT 97–100; BMI 26.6; BMI 25.0
--- NOTE | 2022-11-20 15:16 | CT_ITS ---
EXAM: CT HEAD WITHOUT INTRAVENOUS CONTRAST CLINICAL INDICATION: altered mental status TECHNIQUE: Multiple axial images were obtained of the head without intravenous contrast. This CT exam was performed using one or more of the following dose reduction techniques: automated exposure control, adjustment of the mA and/or kV according to patient size, and/or use of iterative reconstruction technique. This report was created using [employer] report generation technology. COMPARISON: CT Head dated 07/18/2022 FINDINGS: BRAIN AND EXTRA-AXIAL SPACES: Areas of diminished white matter density noted within both cerebral hemispheres suggestive of chronic microvascular change. No intra- or extra-axial hemorrhage. No evidence of acute infarct. No intracranial mass or mass effect. There is preservation of the ellis/white matter interface. Posterior fossa structures are unremarkable. Ventricles are appropriate for age. No hydrocephalus. Basal cisterns are patent. BONES/JOINTS: No suspicious lytic or blastic abnormality. SINUSES: Unremarkable as visualized. No acute sinusitis. MASTOID AIR CELLS: Normal. Clear. ORBITS: Visualized globes, extraocular muscles, optic nerves and retrobulbar fat appear unremarkable. CT/Brain/Head without Contrast IMPRESSION: 1. No acute intracranial abnormality. 2. Stable senescent changes. Electronically Signed: Juwan Chavez MD at 16:18 EST ,
--- NOTE | 2022-11-20 15:16 | EKG12_ITS ---
Test Reason : Blood Pressure : / mmHG Vent. Rate : 080 BPM Atrial Rate : 080 BPM P-R Int : 152 ms QRS Dur : 144 ms QT Int : 408 ms P-R-T Axes : 030 -88 039 degrees QTc Int : 470 ms Normal sinus rhythm with sinus arrhythmia Right bundle branch block Left anterior fascicular block Bifascicular block Septal infarct , age undetermined Abnormal ECG Confirmed by JERROD ROWELL, JUNO ([id number]), restaurant expeditor DEDIE JEAN ([id number]) on 11/24/2022 12:34:23 PM Referred By: ALEX Confirmed By:LEE ELDER MD
--- NOTE | 2022-11-20 15:18 | EX.ED.DYSGE1 ---
HPI History of Present Illness Chief Complaint: Complaint Narrative Narrative: Very limited history available from this patient, basically EMS who states via ED nurse that she had some urinary symptoms and is now altered/weak. Patient is so altered that she is not able to provide any history or ROS. 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 Thrombocytopenia Home Medications atorvastatin 40 mg tablet (Lipitor) 40 mg PO QHS cholesterol 02/09/22 [History Last Taken 07/17/22] labetalol 100 mg tablet 50 mg PO BID blood pressure 05/26/22 [History Last Taken 07/17/22] polysaccharide iron complex 150 mg iron capsule (Ferrex) 150 mg PO DAILYCM #90 caps 05/28/22 [Rx Last Taken Unknown] lactulose 10 gram/15 mL oral solution 30 ml PO 4X/DAY liver 10/16/22 [History Last Taken Unknown] ondansetron 4 mg disintegrating tablet 4 mg PO Q6H PRN PRN nausea/vomiting 10/16/22 [History Last Taken Unknown] spironolactone 25 mg tablet 25 mg PO DAILY liver #30 tabs 10/19/22 [Rx Last Taken Unknown] albuterol sulfate 90 mcg/actuation aerosol inhaler 2 puff inhalation Q4H PRN SOB 11/20/22 [History Last Taken Unknown] bimatoprost 0.01 % eye drops (Lumigan) 1 drp LEFT EYE DAILY GLAUCOMA 11/20/22 [History Last Taken Unknown] glimepiride 4 mg tablet 4 mg PO BREAKFAST diabetes 11/20/22 [History Last Taken Unknown] pantoprazole 40 mg tablet,delayed release 40 mg PO DAILY GERD 11/20/22 [History Last Taken Unknown] potassium chloride 20 mEq tablet,extended release(part/cryst) 20 meq PO DAILY SUPPLEMENT 11/20/22 [History Last Taken Unknown] ramipril 5 mg capsule 5 mg PO DAILY . 11/20/22 [History Last Taken Unknown] torsemide 20 mg tablet 20 mg PO DAILY WATER PILL 11/20/22 [History Last Taken Unknown] Allergy/AdvReac Type Severity Reaction Status Date / Time suture Allergy Mild rash/ Verified 10/15/22 17:48 wound dehisence amoxicillin Allergy Unknown Verified 10/15/22 17:48 azithromycin Allergy Shortness Verified 10/15/22 17:48 of breath celecoxib [From Celebrex] Allergy Other Verified 10/15/22 17:48 ciprofloxacin HCl Allergy Shortness Verified 10/15/22 17:48 [From Cipro] of breath cortisone Allergy Swelling Verified 10/15/22 17:48 doxycycline Allergy Shortness Verified 10/15/22 17:48 of breath erythromycin base Allergy Unknown Verified 10/15/22 17:48 fexofenadine [From Ashlee] Allergy Unknown Verified 10/15/22 17:48 ibuprofen Allergy Shortness Verified 10/15/22 17:48 of breath Iodinated Contrast Media Allergy Shortness Verified 10/15/22 17:48 [DYEE] of breath iodine Allergy Shortness Verified 10/15/22 17:48 of breath levofloxacin [From Levaquin] Allergy Shortness Verified 10/15/22 17:48 of breath lorazepam [From Ativan] Allergy Shortness Verified 10/15/22 17:48 of breath nitrofurantoin Allergy Shortness Verified 10/15/22 17:48 macrocrystalline of breath [From Macrobid] Penicillins Allergy Shortness Verified 10/15/22 17:48 of breath rofecoxib [From Vioxx] Allergy Unknown Verified 10/15/22 17:48 Sulfa (Sulfonamide Allergy Shortness Verified 10/15/22 17:48 Antibiotics) of breath sulfamethoxazole Allergy Shortness Verified 10/15/22 17:48 [From Bactrim] of breath trimethoprim [From Bactrim] Allergy Shortness Verified 10/15/22 17:48 of breath amlodipine [From Norvasc] AdvReac Upset Verified 10/15/22 17:48 Stomach MISC BP MED Allergy Shortness Uncoded 10/15/22 17:48 of breath Family History Mother Heart disease Brother Heart disease Surgical History History of bilateral salpingo-oophorectomy History of endarterectomy History of laparoscopic cholecystectomy History of oral surgery S/P TIPS (transjugular intrahepatic portosystemic shunt) Social History household members: spouse Smoking Status: Former smoker alcohol intake: never substance use type: does not use ROS ROS ED Review of Systems ROS Unobtainable: due to mental status EXAM Physical Exam Const Vital Signs: 11/20/22 14:40 11/20/22 14:51 11/20/22 15:16 Temperature 96.2 F L Temperature Source Oral Pulse Rate 74 Respiratory Rate 19 H Respiratory Effort Normal Respiratory Pattern Normal Blood Pressure 121/42 H Blood Pressure Mean 68 Pulse Ox 98 Oxygen Delivery Method Room Air Room Air 11/20/22 17:03 Temperature Temperature Source Pulse Rate 70 Respiratory Rate 18 Respiratory Effort Respiratory Pattern Blood Pressure 122/48 H Blood Pressure Mean 72 Pulse Ox 100 Oxygen Delivery Method Room Air Positive well nourished and well developed Constitutional Narrative: Lethargic alerts to voice General Appearance ED: well developed and NAD HEENT Reports moist mucous membranes normocephalic and atraumatic Eyes PERRL and EOMs intact bilaterally Neck full ROM and supple Chest Wall inspection of chest normal and palpation of chest normal Resp normal respiratory effort and clear to auscultation bilaterally Cardio regular rate, regular rhythm and no murmurs Rate: Negative for tachycardic GI non-distended Auscultation: normoactive bowel sounds Palpation: soft Back/Spine no CVA tenderness General Back: other FROM Extremity normal to inspection General Extremety ED: Negative for edema, pulses abnormal or tenderness General Extremity: Negative for edema or pulses abnormal Neuro CN's II-XII intact bilaterally Neuro Narrative: Patient extremely disoriented. She is not able to answer basic questions, when asked if she is in pain when I am examining her she answers yes to light palpation of every surface of her body, confusing the exam. She would not follow commands, but localizes to pain symmetrically. Based on this , no gross sensory deficits. Laney Coma Scale: document GCS findings To Voice Localizes to Pain Confused 12 Sensorium / Orientation: awake, alert and orientation impaired Skin no rashes or lesions noted and no wounds MDM MDM MDM Narrative Medical decision making narrative: Work-up shows worsening renal failure with mild hyperkalemia, she does not have acute EKG changes from this. It is mildly elevated. Also has an ammonia level of 103, with negative CT scan showing no acute hemorrhage her mass-effect, I viewed these images. My interpretation of the CT agrees with that of the radiologist. Also obtained a 1 view chest x-ray which her mitral rotation shows no evidence of pneumonia, radiology in agreement. Her urine is clean, catheterized specimen showing no signs of infection. Given all of this, her mental status change may be metabolic hepatic encephalopathy due to her cirrhosis, and/or uremia from her worsening renal failure. I have very limited information available in this patient. I reviewed recent discharge summary from this hospital from 1 month ago. She is not on dialysis, she has nonalcoholic hepatic cirrhosis, and has had a TIPS procedure in the past. Her DNR status is unknown. Her living situation is unknown, but it seems when she was discharged from the hospital it was not to a nursing facility. Lactulose rectally ordered in addition to hyperkalemic treatment including insulin, glucose, albuterol. Lab Data Attestation: I reviewed the patient's lab results. Labs: Laboratory Results - last 24 hr 11/20/22 11/20/22 11/20/22 15:35 15:35 15:35 WBC 12.4 H RBC 3.59 L Hgb 9.5 L Hct 30.7 L MCV 85.5 MCH 26.5 L MCHC 30.9 L RDW Std Deviation 49.2 H RDW Coeff of [place] 15.9 H Plt Count 254 MPV 11.3 Immature Gran % (Auto) 0.600 Neut % (Auto) 55.4 Lymph % (Auto) 18.7 L [place] % (Auto) 12.1 H Eos % (Auto) 12.1 H Baso % (Auto) 1.1 H Absolute Neuts (auto) 6.9 Absolute Lymphs (auto) 2.31 Nucleated RBC % 0 PT 16.1 H INR 1.3 APTT 33.1 Sodium 137 Potassium 5.7 H Chloride 111 H Carbon Dioxide 17.0 L Anion Gap 9 BUN 88 H Creatinine 5.79 H Estim Creat Clear Calc 6.12 Est GFR (MDRD) Af Amer 9 L Est GFR (MDRD) Non-Af 8 L BUN/Creatinine Ratio 15.2 Glucose 181 H Lactic Acid Calcium 9.7 Total Bilirubin 0.60 AST 23 ALT 18 Alkaline Phosphatase 91 Ammonia Troponin I High Sens 23 Total Protein 7.0 Albumin 2.6 L Globulin 4.4 H Albumin/Globulin Ratio 0.6 L Urine Color Urine Clarity Urine pH Ur Specific [place] Urine Protein Urine Glucose (UA) Urine Ketones Urine Occult Blood Urine Nitrite Urine Bilirubin Urine Urobilinogen Ur Leukocyte Esterase Urine RBC Urine WBC Ur Squamous Epith Cells Urine Bacteria Urine Mucus 11/20/22 11/20/22 11/20/22 15:35 15:35 15:45 WBC RBC Hgb Hct MCV MCH MCHC RDW Std Deviation RDW Coeff of [place] Plt Count MPV Immature Gran % (Auto) Neut % (Auto) Lymph % (Auto) [place] % (Auto) Eos % (Auto) Baso % (Auto) Absolute Neuts (auto) Absolute Lymphs (auto) Nucleated RBC % PT INR APTT Sodium Potassium Chloride Carbon Dioxide Anion Gap BUN Creatinine Estim Creat Clear Calc Est GFR (MDRD) Af Amer Est GFR (MDRD) Non-Af BUN/Creatinine Ratio Glucose Lactic Acid 1.5 Calcium Total Bilirubin AST ALT Alkaline Phosphatase Ammonia 103.0 H Troponin I High Sens Total Protein Albumin Globulin Albumin/Globulin Ratio Urine Color Yellow Urine Clarity Clear Urine pH 5.0 Ur Specific [place] 1.015 Urine Protein Negative Urine Glucose (UA) Normal Urine Ketones Negative Urine Occult Blood Negative Urine Nitrite Negative Urine Bilirubin Negative Urine Urobilinogen Normal Ur Leukocyte Esterase Negative Urine RBC 0 SEEN Urine WBC 0 SEEN Ur Squamous Epith Cells 0 SEEN Urine Bacteria 0 SEEN Urine Mucus 0 SEEN Radiography Diagnostic Testing: Clinical Impression(s) from Imaging Studies Brain CT 11/20/22 15:16 IMPRESSION: 1. No acute intracranial abnormality. 2. Stable senescent changes. Electronically Signed: Juwan Chavez MD at 16:18 EST Reading Location ID and State: [address] [place] [address] Tel , Service support , Chest X-Ray 11/20/22 16:08 IMPRESSION: No acute cardiopulmonary abnormality. No interval change. Electronically Signed: Juwan Chavez MD at 16:19 EST , Rhythm Strip Rhythm Strip: Sinus Rhythm Rate: 80 Ectopy: None EKG Initial EKG: Attestation: I personally reviewed and interpreted this EKG as follows: Interpretation: Sinus Rhythm, No Acute Injury Pattern, RBBB and LAFB Prior EKG tracings: available for review Prior: Unchanged Discharge Plan Dx/Rx/DC Orders Clinical Impression: Acute hepatic encephalopathy, Acute on chronic kidney failure, Hyperkalemia, diminished renal excretion Disposition Disposition: Acute Care Hospital [facility]
[2022-11-20 15:52] LABS: Bacteria 0 SEEN /hpf (None Seen); Mucous, Urine 0 SEEN /hpf (<or=2+); Red Blood Cells-Urine 0 SEEN /hpf (0-5); Squamous Epithelial Cells - UA 0 SEEN /hpf (5-10); White Blood Cells 0 SEEN /hpf (0-5)
[2022-11-20 15:58] LABS: Absolute Lymphocyte Count 2.31 X10^3/uL (0.83-4.51); Absolute Neutrophil Count 6.9 X10^3/uL (2.0-7.7); Basophil# 0.13 X10^3/uL; Basophil% 1.1 % (0-1); Eosinophils% 12.1 % (0-5); Hematocrit 30.7 % (37-47); Hemoglobin 9.5 g/dL (12.0-15.0); Lymphocyte # 2.31 X10^3/ul (0.83-4.51); Lymphocyte % 18.7 % (19-41); Mean Corp Hgb Conc 30.9 g/dL (32-36); Mean Corpuscular Hgb 26.5 pg (27.0-32.0); Mean Corpuscular Volume 85.5 fL (81-99); Mean Platelet Vol. 11.3 fl (6.2-12.0); Monocyte% 12.1 % (0-10); NRBC Flagged by Analyzer 0 % (0-5); Neutrophil # 6.86 X10^3/uL (2.7-7.7); Neutrophil % 55.4 % (47-70); Platelet Count 254 K/mm3 (150-450); RBC Distribution Width CV 15.9 % (11.6-14.6); RBC Distribution Width SD 49.2 fl (35.1-43.9); Red Blood Count 3.59 M/mm3 (4.2-5.4); White Blood Count 12.4 K/mm3 (4.4-11.0)
[2022-11-20 16:04] LABS: International Normalized Ratio 1.3; Prothrombin Time (Protime)PT. 16.1 SECONDS (11.7-14.9)
--- NOTE | 2022-11-20 16:08 | RAD_ITS ---
EXAM: XR CHEST, 1 VIEW CLINICAL INDICATION: altered mental status TECHNIQUE: Frontal view of the chest. This report was created using [employer] report generation technology. COMPARISON: XR Chest dated 10/15/2022 FINDINGS: LUNGS AND PLEURAL SPACES: Normal. No consolidation or edema. No pneumothorax. No effusion. HEART: Stable borderline cardiomegaly. MEDIASTINUM: No mediastinal or hilar mass. BONES/JOINTS: No acute abnormality. SOFT TISSUES: Normal. RAD/Chest 1 View (Portable) IMPRESSION: No acute cardiopulmonary abnormality. No interval change. Electronically Signed: Juwan Chavez MD at 16:19 EST ,
[2022-11-20 16:26] LABS: Color, Urine Yellow (Yellow); Glucose, Dipstick Normal (Normal); Ketone-Dipstick Negative (Negative); Leukocyte Esterase-Dipstick Negative /ul (Negative); Nitrite-Dipstick Negative (Negative); Occult Blood-Urine Negative /ul (Negative); Protein-Dipstick Negative (Negative); Specific Gravity, Urine 1.015 (1.002-1.030); Urine Bilirubin Dipstick Negative (Negative); Urine Clarity Clear (Clear); Urine Urobilinogen Normal (Normal)
[2022-11-20 16:39] LABS: ALB/GLOB Ratio 0.6 RATIO (0.9-2.4); AST(SGOT) 23 U/L (15-37); Alanine Aminotransfer ALT/SGPT 18 U/L (13-56); Albumin, Serum 2.6 g/dL (3.2-5.0); Alkaline Phosphatase 91 U/L (45-117); Anion Gap 9 (5-15); BUN 88 mg/dL (7-18); BUN/Creat Ratio 15.2 RATIO (10-20); Calcium,Total 9.7 mg/dL (8.5-10.1); Chloride 111 mmol/L (98-107); Creatinine, Serum 5.79 mg/dL (0.55-1.02); EST Glomerular Filtration Rate 8 mL/min (>60); Est Glom Filt Rate - Afr Amer 9 mL/min (>60); Estimated Creatinine Clearance 6.12 ml/min; Globulin 4.4 g/dL (2.2-4.2); Glucose 181 mg/dL (74-106); Potassium 5.7 mmol/L (3.5-5.1); Sodium Level 137 mmol/L (136-145); Troponin-I HS 23 pg/mL (3.0-54.0)
[2022-11-20 16:44] LABS: Partial Thromboplast Time 33.1 Seconds (24.1-36.2)
[2022-11-20 16:55] LABS: Lactic Acid 1.5 mmol/L (0.4-1.9)
[2022-11-20] MEDS: Albuterol *CONC* 2.5mg/0.5mL VIAL.NEB. 10 MG INHALATION (17:18)
[2022-11-20] MEDS: Insulin Lispro 10 UNIT in Syringe 0 ML 6 UNIT IV (17:34)
[2022-11-20] MEDS: Dextrose 50%-Water 25 GM/50 ML DISP.SYRIN IV (17:34)
--- NOTE | 2022-11-20 17:42 | HP.PCM.HOS_ITS ---
HPI - General General Date of Service: 11/20/22 Chief Complaint: confusion HPI Narrative MICHAEL HENLEY, is a 72 F who presents with confusion. Patient is very agitated and confused and not a good historian at present. History is obtained through the emergency room physician as well as the patient's daughter, who is at bedside. Daughter states that this is similar to prior bouts of hepatic encephalopathy. Patient is to take lactulose several times per day but due to the diarrhea and having severe hemorrhoids, patient does not take it as she is instructed to. The patient presents confused with an ammonia level of 103. Additionally, patient was noted to be in acute kidney injury with a potassium of 5.79, baseline rate is around 1.4, however, patient had a BMP from 13 November that showed a creatinine of 4.29 at that time. Patient's potassium is also e levated at 5.7. EKG showed normal sinus rhythm with a right bundle branch block but unchanged from previous. Patient has been ordered lactulose, albuterol, insulin and D50 and a 500 cc of saline. Patient had a TIPS procedure at [facility] due to recurrent ascites requiring paracentesis. Ever since that TIPS procedure, patient has had bouts of hepatic encephalopathy and work quiring hospitalization for such. Patient has been instructed by Dr. Gaming to have the tip to close off or removed. The daughter states that they have followed up to [facility] about this issue and patient seen and examined independently. Data and vitals reviewed. I agree with the above note by the physician biology laboratory assistant. Keep telling them to wait a few months, therefore, the TIPS has not been removed or closed. [facility] Medical History Abdominal pain Anemia Ascites Asthma Cirrhosis Cirrhosis COPD (chronic obstructive pulmonary disease) Depressive disorder Diabetes mellitus GERD (gastroesophageal reflux disease) Hepatic encephalopathy Hernia history diagnostic hysteroscopy history thrombendarterectomy neck Hypertension Osteoarthrosis Portal vein thrombosis Rectus sheath hematoma Splenic vein thrombosis Thrombocytopenia Home Medications atorvastatin 40 mg tablet (Lipitor) 40 mg PO QHS cholesterol 02/09/22 [History Last Taken 07/17/22] labetalol 100 mg tablet 50 mg PO BID blood pressure 05/26/22 [History Last Taken 07/17/22] polysaccharide iron complex 150 mg iron capsule (Ferrex) 150 mg PO DAILYCM #90 caps 05/28/22 [Rx Last Taken Unknown] lactulose 10 gram/15 mL oral solution 30 ml PO 4X/DAY liver 10/16/22 [History Last Taken Unknown] ondansetron 4 mg disintegrating tablet 4 mg PO Q6H PRN PRN nausea/vomiting 10/16/22 [History Last Taken Unknown] spironolactone 25 mg tablet 25 mg PO DAILY liver #30 tabs 10/19/22 [Rx Last Taken Unknown] albuterol sulfate 90 mcg/actuation aerosol inhaler 2 puff inhalation Q4H PRN SOB 11/20/22 [History Last Taken Unknown] bimatoprost 0.01 % eye drops (Lumigan) 1 drp LEFT EYE DAILY GLAUCOMA 11/20/22 [History Last Taken Unknown] glimepiride 4 mg tablet 4 mg PO BREAKFAST diabetes 11/20/22 [History Last Taken Unknown] pantoprazole 40 mg tablet,delayed release 40 mg PO DAILY GERD 11/20/22 [History Last Taken Unknown] potassium chloride 20 mEq tablet,extended release(part/cryst) 20 meq PO DAILY NAVA PPLEMENT 11/20/22 [History Last Taken Unknown] ramipril 5 mg capsule 5 mg PO DAILY . 11/20/22 [History Last Taken Unknown] torsemide 20 mg tablet 20 mg PO DAILY WATER PILL 11/20/22 [History Last Taken Unknown] Allergy/AdvReac Type Severity Reaction Status Date / Time suture Allergy Mild rash/ Verified 10/15/22 17:48 wound dehisence amoxicillin Allergy Unknown Verified 10/15/22 17:48 azithromycin Allergy Shortness Verified 10/15/22 17:48 of breath celecoxib [From Celebrex] Allergy Other Verified 10/15/22 17:48 ciprofloxacin HCl Allergy Shortness Verified 10/15/22 17:48 [From Cipro] of breath cortisone Allergy Swelling Verified 10/15/22 17:48 doxycycline Allergy Shortness Verified 10/15/22 17:48 of breath erythromycin base Allergy Unknown Verified 10/15/22 17:48 fexofenadine [From Ashlee] Allergy Unknown Verified 10/15/22 17:48 ibuprofen Allergy Shortness Verified 10/15/22 17:48 of breath Iodinated Contrast Media Allergy Shortness Verified 10/15/22 17:48 [DYEE] of breath iodine Allergy Shortness Verified 10/15/22 17:48 of breath levofloxacin [From Levaquin] Allergy Shortness Verified 10/15/22 17:48 of breath lorazepam [From Ativan] Allergy Shortness Verified 10/15/22 17:48 of breath nitrofurantoin Allergy Shortness Verified 10/15/22 17:48 macrocrystalline of breath [From Macrobid] Penicillins Allergy Shortness Verified 10/15/22 17:48 of breath rofecoxib [From Vioxx] Allergy Unknown Verified 10/15/22 17:48 Sulfa (Sulfonamide Allergy Shortness Verified 10/15/22 17:48 Antibiotics) of breath sulfamethoxazole Allergy Shortness Verified 10/15/22 17:48 [From Bactrim] of breath trimethoprim [From Bactrim] Allergy Shortness Verified 10/15/22 17:48 of breath amlodipine [From Norvasc] AdvReac Upset Verified 10/15/22 17:48 Stomach MISC BP MED Allergy Shortness Uncoded 10/15/22 17:48 of breath Family History Mother Heart disease Brother Heart disease Surgical History History of bilateral salpingo-oophorectomy History of endarterectomy History of laparoscopic cholecystectomy History of oral surgery S/P TIPS (transjugular intrahepatic portosystemic shunt) Social History household members: spouse Smoking Status: Former smoker alcohol intake: never substance use type: does not use ROS Review of Systems ROS Unobtainable: due to encephalopathy Vital Signs Vital Signs Vital Signs: 11/20/22 14:40 11/20/22 14:51 11/20/22 15:16 Temperature 35.7 C L Temperature Source Oral Pulse Rate 74 Respiratory Rate 19 H Respiratory Effort Normal Respiratory Pattern Normal Blood Pressure 121/42 H Blood Pressure Mean 68 Pulse Ox 98 Oxygen Delivery Method Room Air Room Air 11/20/22 17:03 11/20/22 17:21 Temperature Temperature Source Pulse Rate 70 74 Respiratory Rate 18 18 Respiratory Effort Respiratory Pattern Normal Blood Pressure 122/48 H Blood Pressure Mean 72 Pulse Ox 100 Oxygen Delivery Method Room Air Weight Weight: 61.9 kg Body Mass Index (BMI) 26.6 Physical Exam Const Constitutional Narrative: Awake. She keeps on saying that you want to kill me towards her daughter in the room. Does follow some commands but is a unreliable historian. HEENT normocephalic and head/scalp atraumatic Eyes EOMs intact bilaterally Eyes Narrative: No icterus Neck no lymphadenopathy Neck Narrative: No thyromegaly Resp normal respiratory effort, no retractions, no use of accessory muscles and clear to auscultation bilaterally Cardio regular rate, regular rhythm, S1 normal heart sound and S2 normal heart sound GI normal to inspection, nondistended, normoactive bowel sounds, soft to palpation, non-tender and non-distended Extremity normal to inspection Skin Skin Narrative: No rashes, no jaundice, no pulm erythema. Neuro moves all extremities Sensorium / Orientation: awake Psych Mood & Affect: anxious Results Lab / Micro Data Attestation: I reviewed the patient's lab results. Result Diagrams: 11/20/22 15:35 11/20/22 15:35 Labs: Laboratory Results - last 24 hr 11/20/22 15:35: WBC 12.4 H, RBC 3.59 L, Hgb 9.5 L, Hct 30.7 L, MCV 85.5, MCH 26.5 L, MCHC 30.9 L, RDW Std Deviation 49.2 H, RDW Coeff of [place] 15.9 H, Plt Count 254, MPV 11.3, Immature Gran % (Auto) 0.600, Neut % (Auto) 55.4, Lymph % (Auto) 18.7 L, [place] % (Auto) 12.1 H, Eos % (Auto) 12.1 H, Baso % (Auto) 1.1 H, Absolute Neuts (auto) 6.9, Absolute Lymphs (auto) 2.31, Nucleated RBC % 0 11/20/22 15:35: PT 16.1 H, INR 1.3, APTT 33.1 11/20/22 15:35: Sodium 137, Potassium 5.7 H, Chloride 111 H, Carbon Dioxide 17.0 L, Anion Gap 9, BUN 88 H, Creatinine 5.79 H, Estim Creat Clear Calc 6.12, Est GFR (MDRD) Af Amer 9 L, Est GFR (MDRD) Non-Af 8 L, BUN/Creatinine Ratio 15.2, Glucose 181 H, Calcium 9.7, Total Bilirubin 0.60, AST 23, ALT 18, Alkaline Phosphatase 91, Troponin I High Sens 23, Total Protein 7.0, Albumin 2.6 L, Globulin 4.4 H, Albumin/Globulin Ratio 0.6 L 11/20/22 15:35: Lactic Acid 1.5 11/20/22 15:35: Ammonia 103.0 H 11/20/22 15:45: Urine Color Yellow, Urine Clarity Clear, Urine pH 5.0, Ur Specific [place] 1.015, Urine Protein Negative, Urine Glucose (UA) Normal, Urine Ketones Negative, Urine Occult Blood Negative, Urine Nitrite Negative, Urine Bilirubin Negative, Urine Urobilinogen Normal, Ur Leukocyte Esterase Negative, Urine RBC 0 SEEN, Urine WBC 0 SEEN, Ur Squamous Epith Cells 0 SEEN, Urine Bacteria 0 SEEN, Urine Mucus 0 SEEN Rhythm Strip Rhythm Strip: Sinus Rhythm Rate: 80 Ectopy: None EKG Initial EKG: Attestation: I personally reviewed and interpreted this EKG as follows: Prior EKG tracings: available for review EKG Rhythm Intrepretation: Sinus Rhythm (Right bundle branch block. Unchanged from EKG from October 15.) Radiology Impression Brain CT 11/20/22 15:16 IMPRESSION: 1. No acute intracranial abnormality. 2. Stable senescent changes. Electronically Signed: Juwan Chavez MD at 16:18 EST Reading Location ID and State: [facility] / [place] Tel , Service support , Chest X-Ray 11/20/22 16:08 IMPRESSION: No acute cardiopulmonary abnormality. No interval change. Electronically Signed: Juwan Chavez MD at 16:19 EST , Assessment & Plan Assessment/Plan (1) Acute hepatic encephalopathy: PLAN: Recurrent Likely due to noncompliance with lactulose and a patient that has had a TIPS procedure Continue with lactulose Add rifaximin as has been recommended by gastroenterology in the past. Daughter given the option to go to [facility] to be evaluated to see if they can remove the tips. She declines at this time. I think that is reasonable as at this unclear if there are even ponder that possibility. Daughter's comfortable with the patient remaining here. Previous MELD score has only been 6 (no current bilirubin to calculate MELD) (2) Acute on chronic kidney failure: PLAN: Unclear visit due to over diuresis as patient does take torsemide and spironolactone Diuretics and JOSE inhibitor will be held IV fluids If no improvement, then would recommend kidney ultrasound and a nephrology consult to see if patient has evidence of hepatorenal syndrome Check urine urea as well as creatinine (3) Hyperkalemia, diminished renal excretion: PLAN: May be iatrogenic as patient was taking potassium and spironolactone on top of having acute kidney injury Patient received albuterol, D50 and insulin Follow-up No EKG changes present PLAN: Plan Chronic conditions * Hemorrhoids: Complicates matters. Supportive management * Diabetes mellitus type 2: Sliding scale insulin * COPD: Stable * Hypertension: Continue labetalol. Hold ramipril given AK I. * GERD: Continue PPI VTE prophylaxis with subcu heparin CODE STATUS: Addressed with the patient's daughter. Patient is full CODE STATUS. Charges/Coding Visit Charges Inpatient E&M: 93227 Init Hosp L3
[2022-11-20] MEDS: Lactulose 20 GM/30 ML UDC 200 GM RC (18:13)
[2022-11-20] MEDS: 0.9% Normal Saline 1,000 ML 150 ML IV (18:57)
[2022-11-20 21:29] LABS: Anion Gap 8 (5-15); BUN 86 mg/dL (7-18); BUN/Creat Ratio 16.3 RATIO (10-20); Chloride 116 mmol/L (98-107); Creatinine, Serum 5.27 mg/dL (0.55-1.02); EST Glomerular Filtration Rate 8 mL/min (>60); Est Glom Filt Rate - Afr Amer 10 mL/min (>60); Estimated Creatinine Clearance 6.73 ml/min; Glucose 143 mg/dL (74-106); Potassium 5.4 mmol/L (3.5-5.1); Sodium Level 140 mmol/L (136-145)
[2022-11-20] MEDS: Lactulose 20 GM/30 ML UDC PO (22:25)
[2022-11-20] MEDS: Heparin Injection (Vial) 5,000 UNIT/ML VIAL 5000 UNIT SC (22:25)
[2022-11-20] MEDS: Labetalol 100 MG Tablet 50 MG PO (22:26)
[2022-11-20] MEDS: Latanoprost 0.005% 1 Bottle 1 DRP LEFT EYE (22:26)
[2022-11-20] MEDS: rifAXIMin 550 MG Tablet PO (22:27)
[2022-11-20 23:05] LABS: Urea Nitrogen, Urine 270 mg/dL (NO RANGE EST.)
[2022-11-20 23:11] LABS: Bedside Glucose 98 mg/dL (74-106)
[2022-11-21 04:18] VITALS: BP 131/38; PULSE 68; RESP 20; TEMP 36.8; O2SAT 99
[2022-11-21 05:53] LABS: Absolute Lymphocyte Count 2.15 X10^3/uL (0.83-4.51); Absolute Neutrophil Count 6.1 X10^3/uL (2.0-7.7); Basophil# 0.13 X10^3/uL; Basophil% 1.1 % (0-1); Eosinophil# 1.55 X10^3/uL; Eosinophils% 13.6 % (0-5); Hematocrit 28.5 % (37-47); Hemoglobin 9.1 g/dL (12.0-15.0); Lymphocyte # 2.15 X10^3/ul (0.83-4.51); Lymphocyte % 18.9 % (19-41); Mean Corp Hgb Conc 31.9 g/dL (32-36); Mean Corpuscular Hgb 26.8 pg (27.0-32.0); Mean Corpuscular Volume 83.8 fL (81-99); Mean Platelet Vol. 10.5 fl (6.2-12.0); Monocyte# 1.37 X10^3/uL; NRBC Flagged by Analyzer 0 % (0-5); Neutrophil # 6.11 X10^3/uL (2.7-7.7); Neutrophil % 53.7 % (47-70); Platelet Count 200 K/mm3 (150-450); RBC Distribution Width SD 49.2 fl (35.1-43.9); White Blood Count 11.4 K/mm3 (4.4-11.0)
[2022-11-21 06:37] LABS: ALB/GLOB Ratio 0.6 RATIO (0.9-2.4); AST(SGOT) 20 U/L (15-37); Alanine Aminotransfer ALT/SGPT 19 U/L (13-56); Albumin, Serum 2.2 g/dL (3.2-5.0); Alkaline Phosphatase 78 U/L (45-117); Anion Gap 10 (5-15); BUN 82 mg/dL (7-18); BUN/Creat Ratio 16.5 RATIO (10-20); Chloride 117 mmol/L (98-107); Creatinine, Serum 4.97 mg/dL (0.55-1.02); EST Glomerular Filtration Rate 9 mL/min (>60); Est Glom Filt Rate - Afr Amer 11 mL/min (>60); Estimated Creatinine Clearance 7.13 ml/min; Globulin 3.9 g/dL (2.2-4.2); Glucose 87 mg/dL (74-106); Potassium 4.8 mmol/L (3.5-5.1); Protein, Total 6.1 g/dL (6.4-8.2); Sodium Level 140 mmol/L (136-145)
[2022-11-21 07:00] LABS: Bedside Glucose 111 mg/dL (74-106)
[2022-11-21 10:15] VITALS: BP 150/47; PULSE 74; RESP 18; TEMP 36.8; O2SAT 99
[2022-11-21] MEDS: Labetalol 100 MG Tablet 50 MG PO ×2 (10:42→21:21)
[2022-11-21] MEDS: Lactulose 20 GM/30 ML UDC PO ×3 (10:42→21:19)
[2022-11-21] MEDS: Heparin Injection (Vial) 5,000 UNIT/ML VIAL 5000 UNIT SC ×2 (10:42→21:19)
[2022-11-21] MEDS: Iron Polysaccharide Complex 150 MG CAPSULE PO (10:42)
[2022-11-21] MEDS: Pantoprazole Sodium 40 MG Tablet PO (10:43)
[2022-11-21] MEDS: rifAXIMin 550 MG Tablet PO ×2 (10:43→21:21)
--- NOTE | 2022-11-21 12:10 | PN.HOSP_ITS ---
Subjective Subjective Resting comfortably, no issues overnight Objective Data Objective Data Vital Signs: Vital Signs Temp Pulse Resp BP Pulse Ox O2 Del Method 98.3 F 74 18 150/47 H 99 Room Air 11/21/22 10:15 11/21/22 10:15 11/21/22 10:15 11/21/22 10:15 11/21/22 10:15 11/21/22 10:34 Oxygen Delivery Method Room Air Weight: 127 lb 13.89 oz Body Mass Index (BMI) 25.0 Intake & Output: Intake and Output for Last 24 Hours 11/20/22 11/21/22 11/22/22 03:59 03:59 03:59 Intake Total 1700 / 1700 240 / 240 Output Total 120 / 120 475 / 475 Balance 1580 / 1580 -235 / -235 Lab / Micro Data Result Diagrams: 11/21/22 05:40 11/21/22 05:40 Labs: Laboratory Results - last 24 hr 11/20/22 15:35: WBC 12.4 H, RBC 3.59 L, Hgb 9.5 L, Hct 30.7 L, MCV 85.5, MCH 26.5 L, MCHC 30.9 L, RDW Std Deviation 49.2 H, RDW Coeff of [place] 15.9 H, Plt Count 254, MPV 11.3, Immature Gran % (Auto) 0.600, Neut % (Auto) 55.4, Lymph % (Auto) 18.7 L, [place] % (Auto) 12.1 H, Eos % (Auto) 12.1 H, Baso % (Auto) 1.1 H, Absolute Neuts (auto) 6.9, Absolute Lymphs (auto) 2.31, Nucleated RBC % 0 11/20/22 15:35: PT 16.1 H, INR 1.3, APTT 33.1 11/20/22 15:35: Sodium 137, Potassium 5.7 H, Chloride 111 H, Carbon Dioxide 17.0 L, Anion Gap 9, BUN 88 H, Creatinine 5.79 H, Estim Creat Clear Calc 6.12, Est GFR (MDRD) Af Amer 9 L, Est GFR (MDRD) Non-Af 8 L, BUN/Creatinine Ratio 15.2, Glucose 181 H, Calcium 9.7, Total Bilirubin 0.60, AST 23, ALT 18, Alkaline Phosphatase 91, Troponin I High Sens 23, Total Protein 7.0, Albumin 2.6 L, Globulin 4.4 H, Albumin/Globulin Ratio 0.6 L 11/20/22 15:35: Lactic Acid 1.5 11/20/22 15:35: Ammonia 103.0 H 11/20/22 15:45: Urine Color Yellow, Urine Clarity Clear, Urine pH 5.0, Ur Specific [place] 1.015, Urine Protein Negative, Urine Glucose (UA) Normal, Urine Ketones Negative, Urine Occult Blood Negative, Urine Nitrite Negative, Urine Bilirubin Negative, Urine Urobilinogen Normal, Ur Leukocyte Esterase Negative, Urine RBC 0 SEEN, Urine WBC 0 SEEN, Ur Squamous Epith Cells 0 SEEN, Urine Bacteria 0 SEEN, Urine Mucus 0 SEEN 11/20/22 21:00: Sodium 140, Potassium 5.4 H, Chloride 116 H, Carbon Dioxide 16.0 L, Anion Gap 8, BUN 86 H, Creatinine 5.27 H, Estim Creat Clear Calc 6.73, Est GFR (MDRD) Af Amer 10 L, Est GFR (MDRD) Non-Af 8 L, BUN/Creatinine Ratio 16.3, Glucose 143 H, Calcium 9.0 11/20/22 22:37: POC Glucose 98 11/20/22 22:40: Urine Creatinine 48.60, Urine Urea Nitrogen 270 11/21/22 05:40: WBC 11.4 H, RBC 3.40 L, Hgb 9.1 L, Hct 28.5 L, MCV 83.8, MCH 26.8 L, MCHC 31.9 L, RDW Std Deviation 49.2 H, RDW Coeff of [place] 16.0 H, Plt Count 200, MPV 10.5, Immature Gran % (Auto) 0.700, Neut % (Auto) 53.7, Lymph % (Auto) 18.9 L, [place] % (Auto) 12.0 H, Eos % (Auto) 13.6 H, Baso % (Auto) 1.1 H, Absolute Neuts (auto) 6.1, Absolute Lymphs (auto) 2.15, Nucleated RBC % 0 11/21/22 05:40: Sodium 140, Potassium 4.8, Chloride 117 H, Carbon Dioxide 13.0 L , Anion Gap 10, BUN 82 H, Creatinine 4.97 H, Estim Creat Clear Calc 7.13, Est GFR (MDRD) Af Amer 11 L, Est GFR (MDRD) Non-Af 9 L, BUN/Creatinine Ratio 16.5, Glucose 87, Calcium 9.0, Total Bilirubin 0.60, AST 20, ALT 19, Alkaline Phosphatase 78, Total Protein 6.1 L, Albumin 2.2 L, Globulin 3.9, Albumin/Globulin Ratio 0.6 L 11/21/22 06:37: POC Glucose 111 H Micro: Microbiology 11/20/22 15:30 Blood Culture (Wb) - Anticubital Right Blood Culture - Preliminary Radiography Diagnostic Testing: Radiology Impression Brain CT 11/20/22 15:16 IMPRESSION: 1. No acute intracranial abnormality. 2. Stable senescent changes. Electronically Signed: Juwan Chavez MD at 16:18 EST , Chest X-Ray 11/20/22 16:08 IMPRESSION: No acute cardiopulmonary abnormality. No interval change. Electronically Signed: Juwan Chavez MD at 16:19 EST , Rhythm Strip Rhythm Strip: Sinus Rhythm Rate: 80 Ectopy: None Physical Exam Narrative General: Resting and arousable, no apparent distress HEENT: Atraumatic, PERRLA, EOMI, Normocephalic Oral: Moist Mucosa Neck: Supple, No JVD Lungs: Diminished, Normal air movement, No rhonchi, No wheeze, No rales Cardiovascular: Regular rate, Regular Rhythm, Normal S1, Normal S2, No murmurs Abdomen: Soft, Non Tender, Non-Distended, No Hepato-splenomegaly Extremities: No edema, Capillary Refill Less than 3 Seconds Skin: No rashes, No breakdown Musculoskeletal: No Tenderness to Palpation of Joints or Extremities Neurological: Cranial nerves II-XII grossly intact, Motor Exam 5/5 strength throughout, Sensory exam intact to light touch and pain Psych/Mental Status: Flat Assessment & Plan Assessment/Plan (1) Acute hepatic encephalopathy: PLAN: Recurrent Likely due to noncompliance with lactulose and a patient that has had a TIPS procedure Continue with lactulose Add rifaximin as has been recommended by gastroenterology in the past. GI in the past has recommended removing the TIPS given the significance of her encephalopathy In the setting of recurrent SKY her MELD score is 23 (2) Acute on chronic kidney failure: QUALIFIERS: Chronic kidney disease stage: stage 3 (moderate) Chronic kidney disease stage 3 subtype: stage 3b (GFR 30-44) PLAN: Diuretics and JOSE inhibitor will be held IV fluids If no improvement, then would recommend kidney ultrasound and a nephrology co nsult to see if patient has evidence of hepatorenal syndrome Check urine urea as well as creatinine (3) Hyperkalemia, diminished renal excretion: PLAN: May be iatrogenic as patient was taking potassium and spironolactone on top of having acute kidney injury Patient received albuterol, D50 and insulin Follow-up No EKG changes present PLAN: Plan Chronic conditions * Hemorrhoids: Complicates matters. Supportive management * Diabetes mellitus type 2: Sliding scale insulin, will monitor make adjustments as necessary * COPD: Stable * Hypertension: Continue labetalol. Hold ramipril given AK I. * GERD: Continue PPI DVT: Heparin Charges/Coding Visit Charges Inpatient E&M: 40208 Subs Hosp L2
[2022-11-21 12:35] LABS: Bedside Glucose 119 mg/dL (74-106)
[2022-11-21] MEDS: 0.45% Normal Saline 1,000 ML 100 ML IV (12:49)
[2022-11-21] MEDS: Ondansetron 4 MG/2 ML Vial IV (12:51)
--- NOTE | 2022-11-21 14:47 | CASEMGMT ---
LISA SALCIDO Assessment: RN?CM?to room earlier today to meet with patient for initial transition planning/care coordination?assessment.?Pt sitting up in chair in room, confused. LISA SALCIDO asked pt a few questions, but she was unable to state the correct information, such as when LISA SALCIDO asked her what her address is she repeated her name, Sol Ann. She also stated she does not live w/her and stated her son lives w/her. LISA SALCIDO placed call to pt's at this time. Noted on initial hotel maid assessment that pt's daughter, Briseyda, is listed as her POA, but no phone number listed for Briseyda. Per , Franklin, he is not sure if he is listed as primary POA, stating that he may be POA, but he is not sure and asked LISA SALCIDO to call dtr, Mile, to inquire about this and to get Briseyda's #. He states Briseyda works during the day until 5:30/6 PM. Call placed to # on pt's records for Mile. No answer. VM @ that # stated it was Briseyda's phone. VM left for return call. PCP: Josiah Smith. Specialists: is not sure who pt sees, stating one of their children take pt to her appts. Preferred Pharmacy: [facility]. Insurance: [employer] [facility] Community Plan [facility]. Prescription Benefit: Yes. LW/HPOA: Unknown who pt's POA is at this time. Awaiting call back from pt's dtr to verify. LNOK: Franklin Ann, . Mile Wiley dtr. kiarra Rainr. Son, Franklin. Living Arrangements: Pt lives with in a mobile home with no steps to enter. Pt's iwqaoy-[id number], Jaquelin, comes weekly to assist pt w/showering. states pt able to walk to BR on her own, but he does SBA. He states she is incontinent at times and he assists w/inc care. Occas he sponge-bathes her. manages her medications and gives them whole, one at a time, in . He does all home mgmt tasks and prepares her meals. He states she sometimes can feed herself, otherwise, he will spoon-feed her at times. He states, I'm retired and stay w/her 11/05. Pt's brother has been staying w/them for the past week, but states thinks he may only be there for a few more days. Transportation: states one of their children will take pt to app. He goes along w/them sometimes. DME: Pt has the following: Wheelchair, shower chair, grab bars, pulse ox, and BSC. She also has oxygen through [facility] [place] with a portable oxygen tank and a concentrator. states she wears it @ 3 l/m contin. Call placed to [facility] [place]. They state her current orders are for 2l/m cont. states he can bring in portable O2 for pt to go home on at discharge. states pt has a medical alert button, but states she won't use it. He denies need for further DME at this time. HHC/SNF: No hx SNF. Active /[facility] HHC: SN only. Noted therapy eval rec additional therpay. states wishes for [facility] to resume and agreeable to therapy being added back on. Order placed. He declines wanting list of other [facility] agency options. declines having any further discharge planning needs or concerns. He thanked RN LOLY for calling. Noted in prior admission note, pt has CM thru [facility], [place]. Goal: Home with [facility] HHC: SN. Add PT/OT. Ad RANDOLPH RN, CM
[2022-11-21 15:35] VITALS: BP 122/52; PULSE 64; RESP 16; TEMP 37.1; O2SAT 100
[2022-11-21] MEDS: Glucerna Shake 120 ML LIQUID PO (17:07)
[2022-11-21] MEDS: Insulin Lispro 100 UNIT/ML INSULN.PEN SC (17:10)
[2022-11-21 17:18] VITALS: BP 137/38; PULSE 80; RESP 18; TEMP 36.7; O2SAT 100
[2022-11-21 17:20] LABS: Bedside Glucose 167 mg/dL (74-106)
[2022-11-21 21:18] VITALS: BP 147/48; PULSE 65; RESP 20; TEMP 36.9; O2SAT 100
[2022-11-21] MEDS: Latanoprost 0.005% 1 Bottle 1 DRP LEFT EYE (21:20)
[2022-11-21 22:35] LABS: Bedside Glucose 195 mg/dL (74-106)
[2022-11-22] MEDS: 0.45% Normal Saline 1,000 ML 100 ML IV (00:06)
[2022-11-22 03:18] VITALS: BP 147/63; PULSE 87; RESP 18; TEMP 36.9; O2SAT 100
[2022-11-22 06:28] LABS: Absolute Lymphocyte Count 1.92 X10^3/uL (0.83-4.51); Absolute Neutrophil Count 5.6 X10^3/uL (2.0-7.7); Eosinophil# 1.44 X10^3/uL; Hematocrit 27.3 % (37-47); Hemoglobin 8.3 g/dL (12.0-15.0); Lymphocyte # 1.92 X10^3/ul (0.83-4.51); Lymphocyte % 18.7 % (19-41); Mean Corp Hgb Conc 30.4 g/dL (32-36); Mean Corpuscular Hgb 26.5 pg (27.0-32.0); Mean Corpuscular Volume 87.2 fL (81-99); Monocyte# 1.18 X10^3/uL; Monocyte% 11.5 % (0-10); NRBC Flagged by Analyzer 0 % (0-5); Neutrophil # 5.56 X10^3/uL (2.7-7.7); Neutrophil % 54.3 % (47-70); Platelet Count 197 K/mm3 (150-450); RBC Distribution Width SD 50.8 fl (35.1-43.9); Red Blood Count 3.13 M/mm3 (4.2-5.4); White Blood Count 10.3 K/mm3 (4.4-11.0)
[2022-11-22 06:56] LABS: ALB/GLOB Ratio 0.6 RATIO (0.9-2.4); AST(SGOT) 21 U/L (15-37); Alanine Aminotransfer ALT/SGPT 17 U/L (13-56); Albumin, Serum 2.2 g/dL (3.2-5.0); Alkaline Phosphatase 77 U/L (45-117); Anion Gap 11 (5-15); BUN 71 mg/dL (7-18); BUN/Creat Ratio 16.9 RATIO (10-20); Calcium,Total 9.2 mg/dL (8.5-10.1); Chloride 117 mmol/L (98-107); Creatinine, Serum 4.19 mg/dL (0.55-1.02); EST Glomerular Filtration Rate 11 mL/min (>60); Est Glom Filt Rate - Afr Amer 13 mL/min (>60); Estimated Creatinine Clearance 8.46 ml/min; Globulin 3.9 g/dL (2.2-4.2); Glucose 115 mg/dL (74-106); Potassium 4.4 mmol/L (3.5-5.1); Protein, Total 6.1 g/dL (6.4-8.2); Sodium Level 140 mmol/L (136-145)
[2022-11-22 07:11] LABS: Bedside Glucose 112 mg/dL (74-106)
[2022-11-22 09:24] VITALS: BP 170/54; PULSE 90; RESP 18; TEMP 36.7; O2SAT 100
[2022-11-22] MEDS: Lactulose 20 GM/30 ML UDC PO ×4 (09:26→21:10)
[2022-11-22] MEDS: Iron Polysaccharide Complex 150 MG CAPSULE PO (09:26)
[2022-11-22] MEDS: Glucerna Shake 120 ML LIQUID PO ×4 (09:26→21:21)
[2022-11-22] MEDS: Heparin Injection (Vial) 5,000 UNIT/ML VIAL 5000 UNIT SC ×2 (09:27→21:10)
[2022-11-22] MEDS: Labetalol 100 MG Tablet 50 MG PO ×2 (09:27→21:11)
[2022-11-22] MEDS: rifAXIMin 550 MG Tablet PO ×2 (09:28→21:11)
[2022-11-22] MEDS: Pantoprazole Sodium 40 MG Tablet PO (09:28)
[2022-11-22] MEDS: 0.9% Saline Lock 10 ML Syringe IV ×2 (09:41→17:51)
[2022-11-22] MEDS: Ondansetron 4 MG/2 ML Vial IV ×2 (09:41→17:51)
--- NOTE | 2022-11-22 09:47 | PN.HOSP_ITS ---
Subjective Subjective Sleeping but arousable, no issues overnight Objective Data Objective Data Vital Signs: Vital Signs Temp Pulse Resp BP Pulse Ox O2 Del Method 98.0 F 90 18 170/54 H 100 Room Air 11/22/22 09:24 11/22/22 09:24 11/22/22 09:24 11/22/22 09:24 11/22/22 09:24 11/22/22 09:24 Oxygen Delivery Method Room Air Weight: 127 lb 13.89 oz Body Mass Index (BMI) 25.0 Intake & Output: Intake and Output for Last 24 Hours 11/21/22 11/22/22 11/23/22 03:59 03:59 03:59 Intake Total 1700 / 1700 1900 / 1900 841.67 / 841.67 Output Total 120 / 120 975 / 975 125 / 125 Balance 1580 / 1580 925 / 925 716.67 / 716.67 Medical Nutrition Assessment Dietitian: Malnutrition Criteria Met Start: 11/21/22 12:47 Freq: Status: Active Protocol: Document 11/21/22 12:47 SLA (Rec: 11/21/22 12:47 SLA [id number]) Nutrition Malnutrition Evidence of Malnutrition Exists Yes Malnutrition (severe): Chronic Evidenced By Suboptimal Energy Intake ( Severe),Weight Loss (Severe) Clinical Problem Chronic Disease or Condition Related Malnutrition Etiology severe r/t inadequate energy intake making it difficult to consume adequate nutrition to meet est nutritional needs Signs/Symptoms as evidenced by po intake meeting <75% of est nutritional needs and unintentional wt loss 25.5% wt loss x 10 mo, 8.7% wt loss x 6 mo, 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 Lab / Micro Data Result Diagrams: 11/22/22 05:50 11/22/22 05:50 Labs: Laboratory Results - last 24 hr 11/21/22 12:13: POC Glucose 119 H 11/21/22 16:59: POC Glucose 167 H 11/21/22 21:17: POC Glucose 195 H 11/22/22 05:50: WBC 10.3, RBC 3.13 L, Hgb 8.3 L, Hct 27.3 L, MCV 87.2, MCH 26.5 L, MCHC 30.4 L, RDW Std Deviation 50.8 H, RDW Coeff of [place] 16.0 H, Plt Count 197, MPV 11.0, Immature Gran % (Auto) 0.500, Neut % (Auto) 54.3, Lymph % (Auto) 18.7 L, [place] % (Auto) 11.5 H, Eos % (Auto) 14.0 H, Baso % (Auto) 1.0, Absolute Neuts (auto) 5.6, Absolute Lymphs (auto) 1.92, Nucleated RBC % 0 11/22/22 05:50: Sodium 140, Potassium 4.4, Chloride 117 H, Carbon Dioxide 12.0 L , Anion Gap 11, BUN 71 H, Creatinine 4.19 H, Estim Creat Clear Calc 8.46, Est GFR (MDRD) Af Amer 13 L, Est GFR (MDRD) Non-Af 11 L, BUN/Creatinine Ratio 16.9, Glucose 115 H, Calcium 9.2, Total Bilirubin 0.50, AST 21, ALT 17, Alkaline Phosphatase 77, Total Protein 6.1 L, Albumin 2.2 L, Globulin 3.9, Albumin/Globul in Ratio 0.6 L 11/22/22 06:07: POC Glucose 112 H Micro: Microbiology 11/20/22 15:30 Blood Culture (Wb) - Anticubital Right Blood Culture - Preliminary 11/20/22 15:45 Urine Catheter - Catheter Urine Culture - Preliminary Culture exhibits no growth. Rhythm Strip Rhythm Strip: Sinus Rhythm Rate: 80 Ectopy: None Physical Exam Narrative General: Resting and arousable, no apparent distress HEENT: Atraumatic, PERRLA, EOMI, Normocephalic Oral: Moist Mucosa Neck: Supple, No JVD Lungs: Diminished, Normal air movement, No rhonchi, No wheeze, No rales Cardiovascular: Regular rate, Regular Rhythm, Normal S1, Normal S2, No murmurs Abdomen: Soft, Non Tender, Non-Distended, No Hepato-splenomegaly Extremities: No edema, Capillary Refill Less than 3 Seconds Skin: No rashes, No breakdown Musculoskeletal: No Tenderness to Palpation of Joints or Extremities Neurological: Cranial nerves II-XII grossly intact, Motor Exam 5/5 strength throughout, Sensory exam intact to light touch and pain Psych/Mental Status: Flat Assessment & Plan Assessment/Plan (1) Acute hepatic encephalopathy: PLAN: Recurrent Likely due to noncompliance with lactulose and a patient that has had a TIPS procedure Continue with lactulose Add rifaximin as has been recommended by gastroenterology in the past. GI in the past has recommended removing the TIPS given the significance of her encephalopathy In the setting of her current SKY her MELD score is 23 (2) Acute on chronic kidney failure: QUALIFIERS: Chronic kidney disease stage: stage 3 (moderate) Chronic kidney disease stage 3 subtype: stage 3b (GFR 30-44) PLAN: Diuretics and JOSE inhibitor will be held IV fluids If no improvement, then would recommend kidney ultrasound and a nephrology consult to see if patient has evidence of hepatorenal syndrome Check urine urea as well as creatinine (3) Hyperkalemia, diminished renal excretion: PLAN: Resolved PLAN: Plan Chronic conditions * Hemorrhoids: Complicates matters. Supportive management * Diabetes mellitus type 2: Sliding scale insulin, will monitor make adjustments as necessary * COPD: Stable * Hypertension: Continue labetalol. Hold ramipril given AK I. * GERD: Continue PPI DVT: Heparin Charges/Coding Visit Charges Inpatient E&M: 88533 Subs Hosp L2
--- NOTE | 2022-11-22 10:52 | PCM.RX.CS ---
Consult Pharmacy has been consulted to manage selected antiobiotic: Vancomycin Type of Consult: New start Suspected Infection: Bacteremia Labs: Sodium 140 mmol/L (136-145) 11/22/22 05:50 Potassium 4.4 mmol/L (3.5-5.1) 11/22/22 05:50 Chloride 117 mmol/L (98-107) H 11/22/22 05:50 Carbon Dioxide 12.0 mmol/L (21.0-32.0) L 11/22/22 05:50 Anion Gap 11 (5-15) 11/22/22 05:50 BUN 71 mg/dL (7-18) H 11/22/22 05:50 Creatinine 4.19 mg/dL (0.55-1.02) H 11/22/22 05:50 Est GFR (MDRD) Af Amer 13 mL/min (>60) L 11/22/22 05:50 Est GFR (MDRD) Non-Af 11 mL/min (>60) L 11/22/22 05:50 BUN/Creatinine Ratio 16.9 RATIO (10-20) 11/22/22 05:50 Glucose 115 mg/dL (74-106) H 11/22/22 05:50 Microbiology: Microbiology 11/20/22 15:35 Blood Culture (Wb) - Anticubital Left Blood Culture - Preliminary No growth in 48 hours. 11/20/22 15:30 Blood Culture (Wb) - Anticubital Right Blood Culture - Preliminary Alpha Hemolytic Streptococcus Coag Negative Staph 11/20/22 15:45 Urine Catheter - Catheter Urine Culture - Preliminary Culture exhibits no growth. Goal Trough: 15-20 mcg/mL Pharmacy Plan for Drug Dosing: NEW START IV VANCOMYCIN Consulting Physician: Dr. Biggs Indication: (+) blood cultures Goal Trough: 15-20 SrCr: 4.19 CrCl: 8 mL/min (Note: slowly improving renal function daily from admission labs) Comments: Loading dose of 1500mg IV x1 ordered Vancomycin Dose: Patient with significant SKY. Will give x1 loading dose now and re-dose based on trough levels until SKY resolves or dosing trend noted. Pending Level: *RANDOM* level 11/24/22 with AM labs Pharmacy Service will continue to monitor and adjust dosing as required.
[2022-11-22] MEDS: Insulin Lispro 100 UNIT/ML INSULN.PEN SC ×2 (11:39→16:25)
[2022-11-22 12:00] LABS: Bedside Glucose 196 mg/dL (74-106)
[2022-11-22 15:05] VITALS: BP 161/64; PULSE 83; RESP 18; TEMP 36.9; O2SAT 99
[2022-11-22 16:50] LABS: Bedside Glucose 191 mg/dL (74-106)
[2022-11-22 21:01] VITALS: BP 159/45; PULSE 67; RESP 18; TEMP 36.3; O2SAT 99
[2022-11-22] MEDS: Latanoprost 0.005% 1 Bottle 1 DRP LEFT EYE (21:11)
[2022-11-22 22:55] LABS: Bedside Glucose 199 mg/dL (74-106)
[2022-11-23 03:05] VITALS: BP 153/55; PULSE 63; RESP 20; TEMP 36.7; O2SAT 98
[2022-11-23 06:14] LABS: Absolute Lymphocyte Count 1.89 X10^3/uL (0.83-4.51); Absolute Neutrophil Count 6.5 X10^3/uL (2.0-7.7); Basophil# 0.08 X10^3/uL; Basophil% 0.7 % (0-1); Eosinophil# 1.31 X10^3/uL; Eosinophils% 11.8 % (0-5); Hematocrit 26.3 % (37-47); Lymphocyte # 1.89 X10^3/ul (0.83-4.51); Mean Corp Hgb Conc 30.4 g/dL (32-36); Mean Corpuscular Hgb 26.2 pg (27.0-32.0); Mean Corpuscular Volume 86.2 fL (81-99); Mean Platelet Vol. 10.8 fl (6.2-12.0); Monocyte# 1.32 X10^3/uL; Monocyte% 11.9 % (0-10); NRBC Flagged by Analyzer 0 % (0-5); Neutrophil # 6.47 X10^3/uL (2.7-7.7); Neutrophil % 58.1 % (47-70); Platelet Count 199 K/mm3 (150-450); RBC Distribution Width CV 15.9 % (11.6-14.6); RBC Distribution Width SD 50.3 fl (35.1-43.9); Red Blood Count 3.05 M/mm3 (4.2-5.4); White Blood Count 11.1 K/mm3 (4.4-11.0)
[2022-11-23 07:00] LABS: Bedside Glucose 142 mg/dL (74-106)
[2022-11-23 07:02] LABS: ALB/GLOB Ratio 0.6 RATIO (0.9-2.4); AST(SGOT) 18 U/L (15-37); Alanine Aminotransfer ALT/SGPT 17 U/L (13-56); Albumin, Serum 2.2 g/dL (3.2-5.0); Alkaline Phosphatase 76 U/L (45-117); Anion Gap 11 (5-15); BUN 61 mg/dL (7-18); BUN/Creat Ratio 17.1 RATIO (10-20); Calcium,Total 9.1 mg/dL (8.5-10.1); Chloride 115 mmol/L (98-107); Creatinine, Serum 3.56 mg/dL (0.55-1.02); EST Glomerular Filtration Rate 13 mL/min (>60); Est Glom Filt Rate - Afr Amer 16 mL/min (>60); Estimated Creatinine Clearance 9.96 ml/min; Globulin 3.9 g/dL (2.2-4.2); Glucose 156 mg/dL (74-106); Potassium 3.7 mmol/L (3.5-5.1); Protein, Total 6.1 g/dL (6.4-8.2); Sodium Level 138 mmol/L (136-145)
[2022-11-23] MEDS: Labetalol 100 MG Tablet 50 MG PO ×2 (08:45→21:27)
[2022-11-23] MEDS: Heparin Injection (Vial) 5,000 UNIT/ML VIAL 5000 UNIT SC ×2 (08:45→21:27)
[2022-11-23] MEDS: Pantoprazole Sodium 40 MG Tablet PO (08:46)
[2022-11-23] MEDS: rifAXIMin 550 MG Tablet PO ×2 (08:46→21:28)
[2022-11-23] MEDS: Lactulose 20 GM/30 ML UDC PO ×4 (08:46→21:26)
[2022-11-23] MEDS: Iron Polysaccharide Complex 150 MG CAPSULE PO (08:46)
[2022-11-23 09:00] VITALS: BP 161/56; PULSE 88; RESP 18; TEMP 36.8; O2SAT 99
--- NOTE | 2022-11-23 09:43 | PN.HOSP_ITS ---
Subjective Subjective No issues overnight, still confused this morning she was able to state that she is at a hospital but does not know which one Objective Data Objective Data Vital Signs: Vital Signs Temp Pulse Resp BP Pulse Ox O2 Del Method 98.2 F 88 18 161/56 H 99 Room Air 11/23/22 09:00 11/23/22 09:00 11/23/22 09:00 11/23/22 09:00 11/23/22 09:00 11/23/22 09:00 Oxygen Delivery Method Room Air Weight: 127 lb 13.89 oz Body Mass Index (BMI) 25.0 Intake & Output: Intake and Output for Last 24 Hours 11/22/22 11/23/22 11/24/22 03:59 03:59 03:59 Intake Total 1900 / 1900 2851.67 / 2851.67 1060 / 1060 Output Total 975 / 975 625 / 625 150 / 150 Balance 925 / 925 2226.67 / 2226.67 910 / 910 Medical Nutrition Assessment Dietitian: Malnutrition Criteria Met Start: 11/21/22 12:47 Freq: Status: Active Protocol: Document 11/21/22 12:47 SLA (Rec: 11/21/22 12:47 SLA [id number]) Nutrition Malnutrition Evidence of Malnutrition Exists Yes Malnutrition (severe): Chronic Evidenced By Suboptimal Energy Intake ( Severe),Weight Loss (Severe) Clinical Problem Chronic Disease or Condition Related Malnutrition Etiology severe r/t inadequate energy intake making it difficult to consume adequate nutrition to meet est nutritional needs Signs/Symptoms as evidenced by po intake meeting <75% of est nutritional needs and unintentional wt loss 25.5% wt loss x 10 mo, 8.7% wt loss x 6 mo, 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 Lab / Micro Data Result Diagrams: 11/23/22 05:35 11/23/22 05:35 Labs: Laboratory Results - last 24 hr 11/22/22 11:34: POC Glucose 196 H 11/22/22 16:24: POC Glucose 191 H 11/22/22 21:03: POC Glucose 199 H 11/23/22 05:35: WBC 11.1 H, RBC 3.05 L, Hgb 8.0 L, Hct 26.3 L, MCV 86.2, MCH 26.2 L, MCHC 30.4 L, RDW Std Deviation 50.3 H, RDW Coeff of [place] 15.9 H, Plt Count 199, MPV 10.8, Immature Gran % (Auto) 0.500, Neut % (Auto) 58.1, Lymph % (Auto) 17.0 L, [place] % (Auto) 11.9 H, Eos % (Auto) 11.8 H, Baso % (Auto) 0.7, Ab solute Neuts (auto) 6.5, Absolute Lymphs (auto) 1.89, Nucleated RBC % 0 11/23/22 05:35: Sodium 138, Potassium 3.7, Chloride 115 H, Carbon Dioxide 12.0 L , Anion Gap 11, BUN 61 H, Creatinine 3.56 H, Estim Creat Clear Calc 9.96, Est GFR (MDRD) Af Amer 16 L, Est GFR (MDRD) Non-Af 13 L, BUN/Creatinine Ratio 17.1, Glucose 156 H, Calcium 9.1, Total Bilirubin 0.60, AST 18, ALT 17, Alkaline Phosphatase 76, Total Protein 6.1 L, Albumin 2.2 L, Globulin 3.9, Albumin /Globulin Ratio 0.6 L 11/23/22 06:26: POC Glucose 142 H Micro: Microbiology 11/20/22 15:45 Urine Catheter - Catheter Urine Culture - Final Culture exhibits no growth. 11/20/22 15:30 Blood Culture (Wb) - Anticubital Right Blood Culture - Final Streptococcus mitis Coag Negative Staph 11/20/22 15:35 Blood Culture (Wb) - Anticubital Left Blood Culture - Preliminary No growth in 48 hours. Rhythm Strip Rhythm Strip: Sinus Rhythm Rate: 80 Ectopy: None Physical Exam Narrative General: Alert and disoriented, no apparent distress HEENT: Atraumatic, PERRLA, EOMI, Normocephalic Oral: Moist Mucosa Neck: Supple, No JVD Lungs: Diminished, Normal air movement, No rhonchi, No wheeze, No rales Cardiovascular: Regular rate, Regular Rhythm, Normal S1, Normal S2, No murmurs Abdomen: Soft, Non Tender, Non-Distended, No Hepato-splenomegaly Extremities: No edema, Capillary Refill Less than 3 Seconds Skin: No rashes, No breakdown Musculoskeletal: No Tenderness to Palpation of Joints or Extremities Neurological: Moves all extremities, sensation intact Psych/Mental Status: Flat Assessment & Plan Assessment/Plan (1) Acute hepatic encephalopathy: PLAN: Recurrent May be due to noncompliance that she is supposed to take lactulose to 4 times a day but appears to only take it 3 times a day, she did also just have a TIPS placed Continue with lactulose Add rifaximin as has been recommended by gastroenterology in the past. GI in the past has recommended removing the TIPS given the significance of her encephalopathy In the setting of her current SKY her MELD score is 23 (2) Acute on chronic kidney failure: QUALIFIERS: Chronic kidney disease stage: stage 3 (moderate) Chronic kidney disease stage 3 subtype: stage 3b (GFR 30-44) PLAN: Diuretics and JOSE inhibitor will be held IV fluids Renal function is improving consistent with likely dehydration Check urine urea as well as creatinine (3) Hyperkalemia, diminished renal excretion: PLAN: Resolved PLAN: Plan Chronic conditions * Hemorrhoids: Complicates matters. Supportive management * Diabetes mellitus type 2: Sliding scale insulin, will monitor make adjustments as necessary * COPD: Stable * Hypertension: Continue labetalol. Hold ramipril given AK I. * GERD: Continue PPI DVT: Heparin Charges/Coding Visit Charges Inpatient E&M: 33058 Subs Hosp L2
[2022-11-23] MEDS: Insulin Lispro 100 UNIT/ML INSULN.PEN SC ×2 (12:47→16:50)
[2022-11-23] MEDS: Glucerna Shake 120 ML LIQUID PO ×3 (12:49→21:27)
[2022-11-23 13:50] LABS: Bedside Glucose 223 mg/dL (74-106)
[2022-11-23 15:00] VITALS: BP 153/52; PULSE 77; RESP 18; TEMP 36.9; O2SAT 97
[2022-11-23 16:58] LABS: Magnesium 1.9 mg/dL (1.6-2.6); Phosphorus 5.5 mg/dL (2.5-4.9)
[2022-11-23 17:30] LABS: Bedside Glucose 222 mg/dL (74-106)
[2022-11-23 21:25] VITALS: BP 152/56; PULSE 77; RESP 18; TEMP 36.4; O2SAT 98
[2022-11-23] MEDS: Ondansetron 4 MG/2 ML Vial IV (21:28)
[2022-11-23] MEDS: 0.9% Saline Lock 10 ML Syringe IV (21:28)
[2022-11-24 03:22] VITALS: BP 148/60; PULSE 81; RESP 20; TEMP 36.5; O2SAT 98
[2022-11-24 05:56] LABS: Bedside Glucose 211 mg/dL (74-106)
[2022-11-24 06:49] LABS: Absolute Lymphocyte Count 1.85 X10^3/uL (0.83-4.51); Absolute Neutrophil Count 7.7 X10^3/uL (2.0-7.7); Basophil# 0.12 X10^3/uL; Eosinophil# 1.46 X10^3/uL; Eosinophils% 11.7 % (0-5); Hematocrit 25.8 % (37-47); Hemoglobin 8.3 g/dL (12.0-15.0); Lymphocyte # 1.85 X10^3/ul (0.83-4.51); Lymphocyte % 14.8 % (19-41); Mean Corp Hgb Conc 32.2 g/dL (32-36); Mean Corpuscular Hgb 27.4 pg (27.0-32.0); Mean Corpuscular Volume 85.1 fL (81-99); Mean Platelet Vol. 10.2 fl (6.2-12.0); Monocyte# 1.34 X10^3/uL; Monocyte% 10.7 % (0-10); NRBC Flagged by Analyzer 0 % (0-5); Neutrophil % 61.3 % (47-70); Platelet Count 177 K/mm3 (150-450); RBC Distribution Width CV 15.8 % (11.6-14.6); RBC Distribution Width SD 48.6 fl (35.1-43.9); Red Blood Count 3.03 M/mm3 (4.2-5.4); White Blood Count 12.5 K/mm3 (4.4-11.0)
[2022-11-24 07:10] LABS: Bedside Glucose 125 mg/dL (74-106)
[2022-11-24 07:38] LABS: ALB/GLOB Ratio 0.5 RATIO (0.9-2.4); AST(SGOT) 16 U/L (15-37); Alanine Aminotransfer ALT/SGPT 17 U/L (13-56); Alkaline Phosphatase 73 U/L (45-117); Anion Gap 12 (5-15); BUN 51 mg/dL (7-18); BUN/Creat Ratio 16.9 RATIO (10-20); Calcium,Total 9.1 mg/dL (8.5-10.1); Chloride 115 mmol/L (98-107); Creatinine, Serum 3.02 mg/dL (0.55-1.02); EST Glomerular Filtration Rate 16 mL/min (>60); Est Glom Filt Rate - Afr Amer 19 mL/min (>60); Estimated Creatinine Clearance 11.74 ml/min; Globulin 3.8 g/dL (2.2-4.2); Glucose 136 mg/dL (74-106); Potassium 3.1 mmol/L (3.5-5.1); Protein, Total 5.8 g/dL (6.4-8.2); Sodium Level 136 mmol/L (136-145)
[2022-11-24 08:04] LABS: Vancomycin, Random Level 15.9 ug/mL (0.0-15.0)
--- NOTE | 2022-11-24 08:26 | PCM.RX.CS ---
Consult Pharmacy has been consulted to manage selected antiobiotic: Vancomycin Type of Consult: Follow-up Prior Doses of Antibiotics Received/Current Regimen: Medications Discontinued Medications Vancomycin HCl 1,500 mg/ (Sodium Chloride) 530 mls @ 250 mls/hr IV X1 ONE Stop: 11/22/22 13:07 Last Admin: 11/22/22 14:11 Dose: Infused Labs: Sodium 136 mmol/L (136-145) 11/24/22 06:17 Potassium 3.1 mmol/L (3.5-5.1) L 11/24/22 06:17 Chloride 115 mmol/L (98-107) H 11/24/22 06:17 Carbon Dioxide 9.0 mmol/L (21.0-32.0) L* 11/24/22 06:17 Anion Gap 12 (5-15) 11/24/22 06:17 BUN 51 mg/dL (7-18) H 11/24/22 06:17 Creatinine 3.02 mg/dL (0.55-1.02) H 11/24/22 06:17 Est GFR (MDRD) Af Amer 19 mL/min (>60) L 11/24/22 06:17 Est GFR (MDRD) Non-Af 16 mL/min (>60) L 11/24/22 06:17 BUN/Creatinine Ratio 16.9 RATIO (10-20) 11/24/22 06:17 Glucose 136 mg/dL (74-106) H 11/24/22 06:17 Random Vancomycin 15.9 ug/mL (0.0-15.0) H 11/24/22 06:30 Microbiology: Microbiology 11/22/22 10:17 Blood Culture (Wb) - Left Hand Blood Culture - Preliminary No growth in 48 hours. 11/22/22 10:17 Blood Culture (Wb) - Left Hand Blood Culture - Preliminary No growth in 48 hours. 11/20/22 15:45 Urine Catheter - Catheter Urine Culture - Final Culture exhibits no growth. 11/20/22 15:30 Blood Culture (Wb) - Anticubital Right Blood Culture - Final Streptococcus mitis Coag Negative Staph 11/20/22 15:35 Blood Culture (Wb) - Anticubital Left Blood Culture - Preliminary No growth in 48 hours. Weight used for dosin kg Estimated Creatinine Clearance: 12 Pharmacy Plan for Drug Dosing: Current vancomycin level within goal range. Scr is trending down but crcl still < 20 mL/min. Recommend to start scheduled vancomycin 750mg IV q24h and recheck level prior to 3rd dose. Pharmacy Service will continue to monitor and adjust dosing as required. Follow-Up Labs: Trough Vancomycin - 11/26 @ 0930
[2022-11-24 09:15] VITALS: BP 147/47; PULSE 75; RESP 18; TEMP 36.9; O2SAT 100
[2022-11-24] MEDS: Iron Polysaccharide Complex 150 MG CAPSULE PO (09:16)
[2022-11-24] MEDS: Pantoprazole Sodium 40 MG Tablet PO (09:16)
[2022-11-24] MEDS: rifAXIMin 550 MG Tablet PO ×2 (09:16→20:34)
[2022-11-24] MEDS: Glucerna Shake 120 ML LIQUID PO ×4 (09:16→20:33)
[2022-11-24] MEDS: Heparin Injection (Vial) 5,000 UNIT/ML VIAL 5000 UNIT SC ×2 (09:16→20:33)
[2022-11-24] MEDS: Lactulose 20 GM/30 ML UDC PO ×4 (09:16→20:33)
[2022-11-24] MEDS: Labetalol 100 MG Tablet 50 MG PO ×2 (09:16→20:33)
[2022-11-24] MEDS: Insulin Lispro 100 UNIT/ML INSULN.PEN SC ×2 (11:01→16:26)
[2022-11-24 11:33] VITALS: O2SAT 98
[2022-11-24] MEDS: Potassium Chloride Oral Tablet 20 MEQ PO ×2 (11:34→17:45)
[2022-11-24] MEDS: 0.9% Saline Lock 10 ML Syringe IV (11:34)
[2022-11-24] MEDS: Potassium Chloride 10mEq/100mL 10 MEQ/100 ML IV.SOLN. 100 MEQ IV BOLUS ×4 (11:34→15:13)
[2022-11-24 11:35] LABS: Bedside Glucose 181 mg/dL (74-106)
[2022-11-24 11:42] VITALS: O2SAT 98
--- NOTE | 2022-11-24 14:06 | PN.HOSP_ITS ---
Subjective Subjective Patient is a 72-year-old lady with history of cirrhosis of the liver status post TIPS procedure presented to the emergency department with altered mental status and assessment of acute hepatic encephalopathy made patient admitted to a monitored bed for further management Objective Data Objective Data Vital Signs: Vital Signs Temp Pulse Resp BP Pulse Ox O2 Del Method 98.4 F 75 18 147/47 H 98 Room Air 11/24/22 09:15 11/24/22 09:15 11/24/22 09:15 11/24/22 09:15 11/24/22 11:42 11/24/22 09:15 Oxygen Delivery Method Room Air Weight: 58 kg Body Mass Index (BMI) 25.0 Intake & Output: Intake and Output for Last 24 Hours 11/22/22 11/23/22 11/24/22 23:59 23:59 23:59 Intake Total 2791.67 / 2911.67 2540 / 2660 2076.67 / 2076.67 Output Total 525 / 725 550 / 650 150 / 150 Balance 2266.67 / 2186.67 1989 1926.67 / 1926.67 Medical Nutrition Assessment Dietitian: Malnutrition Criteria Met Start: 11/21/22 12:47 Freq: Status: Active Protocol: Document 11/21/22 12:47 SLA (Rec: 11/21/22 12:47 SLA [id number]) Nutrition Malnutrition Evidence of Malnutrition Exists Yes Malnutrition (severe): Chronic Evidenced By Suboptimal Energy Intake ( Severe),Weight Loss (Severe) Clinical Problem Chronic Disease or Condition Related Malnutrition Etiology severe r/t inadequate energy intake making it difficult to consume adequate nutrition to meet est nutritional needs Signs/Symptoms as evidenced by po intake meeting <75% of est nutritional needs and unintentional wt loss 25.5% wt loss x 10 mo, 8.7% wt loss x 6 mo, 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 Lab / Micro Data Result Diagrams: 11/24/22 06:30 11/24/22 06:17 Labs: Laboratory Results - last 24 hr 11/23/22 05:35: Phosphorus 5.5 H, Magnesium 1.9 11/23/22 16:49: POC Glucose 222 H 11/23/22 21:31: POC Glucose 211 H 11/24/22 06:11: POC Glucose 125 H 11/24/22 06:17: Sodium 136, Potassium 3.1 L, Chloride 115 H, Carbon Dioxide 9.0 L*, Anion Gap 12, BUN 51 H, Creatinine 3.02 H, Estim Creat Clear Calc 11.74, Est GFR (MDRD) Af Amer 19 L, Est GFR (MDRD) Non-Af 16 L, BUN/Creatinine Ratio 16.9, Glucose 136 H, Calcium 9.1, Total Bilirubin 0.50, AST 16, ALT 17, Alkaline Phosphatase 73, Total Protein 5.8 L, Albumin 2.0 L, Globulin 3.8, Albumin/Globulin Ratio 0.5 L 11/24/22 06:17: Ammonia 109.0 H 11/24/22 06:30: Random Vancomycin 15.9 H 11/24/22 06:30: WBC 12.5 H, RBC 3.03 L, Hgb 8.3 L, Hct 25.8 L, MCV 85.1, MCH 27.4, MCHC 32.2 D, RDW Std Deviation 48.6 H, RDW Coeff of [place] 15.8 H, Plt Count 177, MPV 10.2, Immature Gran % (Auto) 0.500, Neut % (Auto) 61.3, Lymph % (Auto) 14.8 L, [place] % (Auto) 10.7 H, Eos % (Auto) 11.7 H, Baso % (Auto) 1.0, Absolute Neuts (auto) 7.7, Absolute Lymphs (auto) 1.85, Nucleated RBC % 0 11/24/22 10:59: POC Glucose 181 H Micro: Microbiology 11/22/22 10:17 Blood Culture (Wb) - Left Hand Blood Culture - Preliminary No growth in 48 hours. 11/22/22 10:17 Blood Culture (Wb) - Left Hand Blood Culture - Preliminary No growth in 48 hours. 11/20/22 15:45 Urine Catheter - Catheter Urine Culture - Final Culture exhibits no growth. 11/20/22 15:30 Blood Culture (Wb) - Anticubital Right Blood Culture - Final Streptococcus mitis Coag Negative Staph 11/20/22 15:35 Blood Culture (Wb) - Anticubital Left Blood Culture - Preliminary No growth in 48 hours. Rhythm Strip Rhythm Strip: Sinus Rhythm Rate: 80 Ectopy: None Physical Exam Narrative GENERAL: cooperative HEENT: Atraumatic; normocephalic EYES; Anicteric, Normal Conjunctiva NECK; supple, normal thyroid, RESPIRATORY: Diminished to auscultation CARDIOVASCULAR: Regular S1 S2, GI: soft, normoactive bowel sounds, : No Renal angle tenderness; EXTREMITIES: No edema, no clubbing, MUSCULOSKELETAL: no muscle wasting NEURO: Awake; no lateralizing signs. 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 Acute metabolic encephalopathy ? Attributed to patient not being compliant with her lactulose as well as acute kidney injury. This was resumed on admission patient response to therapy being monitored 2. Cirrhosis of the liver ? Status post TIPS procedure 3. Anemia - Secondary to chronic disorder monitoring H&H and transfuse if patient becomes symptomatic or hemoglobin falls below 7 4. Chronic kidney disease Has been gradual deterioration of patient creatinine starting in February 2022 when creatinine was 0.67.. On her admission was 5.79 rehydrated creatinine improved to 3.02. Consult placed to nephrology 5. Metabolic acidosis ? Secondary to patient impaired kidney function management will be deferred to nephrology 6.? GERD ? Past history 7.? Essential hypertension ? Discontinue with home medications clonidine and labetalol 8. Dyslipidemia ? Patient is on statin therapy at home held 9. Diabetes mellitus type 2 ? Managed with diet 10. Essential hypertension ? Patient blood pressure stable patient is on ARB held in view of worsening kidney function 11. COPD Aerosol treatments as needed 12. DVT prophylaxis ? On SC heparin 11.History of esophageal varices Patient underwent EGD on 02/11/2022 during her past admission which showed resolution of the varices.? She was however noted to have a single bleeding angioplastic lesion that was cauterized 12.? 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 Resolved.? Patient was apparently managed at [facility] by vascular surgery 13.? Diabetes mellitus type 2 ? Apparently managed with diet 14.? DVT prophylaxis ? Bilateral SCDs only avoided the use of chemoprophylaxis in view of patient low platelet counts Time spent in the patient's overall evaluation,decision-making process, review of diagnostic data, adjustment of management, discussion with other providers, nursing nursing and ancillary staff involved in patient's care documentation, 55 Minutes Charges/Coding Visit Charges Inpatient E&M: 98104 Subs [place] [id number] Reason for Visit Reason for Visit: Diagnoses Hyperkalemia (11/20/22) Hepatic encephalopathy (11/20/22) Acute kidney failure, unspecified (11/20/22) Chronic kidney disease, unspecified (11/20/22)
--- NOTE | 2022-11-24 14:51 | PCM.CONS.R ---
Assessment & Plan Assessment/Plan (1) Acute on chronic kidney failure: QUALIFIERS: Chronic kidney disease stage: stage 3 (moderate) Chronic kidney disease stage 3 subtype: stage 3b (GFR 30-44) PLAN: Plan Acute renal failure. Repeated episodes of SKY within the last 6 months hence baseline is difficult to establish. Lowest creatinine was around 1.2. Creatinine was almost 5 at the time of admission, it is actually better. Urine analysis looks fairly benign. No obstructive symptoms. Prior renal ultrasound without any hydronephrosis. Since creatinine is improving, hold off on further work-up. Acidosis. Bicarbonate is even lower at 9 today. Likely due to SKY, possible GI losses. I will change IV fluids to bicarbonate drip. Hyperkalemia initially, now hypokalemia. At home she was on Aldactone, potassium supplements. Now likely due to GI losses, potassium is low. Potassium has been replaced today. With bicarbonate infusion, potassium may drop further. We will aggressively replete as needed. History of cirrhosis, s/p TIPS due to repeated ascites now complicated by hepatic cephalopathy. HPI Consult Data Date of Consult: 11/24/22 HPI Narrative Reason for Consultation: Acute renal failure HPI Narrative: MICHAEL HENLEY, is a 72 F who presents to the hospital with confusion/altered mental status. Currently being treated for hepatic encephalopathy. Nephrology on consultation due to acute renal failure. History is somewhat limited. She is alert, does respond to basic questions but could not give complete history. It seems she has no history of cirrhosis, history of recurrent ascites, is s/p TIPS. Apparently developed multiple episodes of hepatic encephalopathy after TIPS, this is a known complication. Came in with another episode of hepatic encephalopathy, was found to have acute renal failure. At home looks like she is on torsemide, spironolactone, potassium supplements. Her baseline creatinine was normal as of February 2022 however since the last 7 to 8 months, she has had repeated episodes of SKY. Lowest creatinine was around 1.2 in the last 6 months. Currently does not offer any complaints. Breathing looks comfortable. [facility] Medical History Abdominal pain Anemia Ascites Asthma Cirrhosis Cirrhosis COPD (chronic obstructive pulmonary disease) Depressive disorder Diabetes mellitus GERD (gastroesophageal reflux disease) Hepatic encephalopathy Hernia history diagnostic hysteroscopy history thrombendarterectomy neck Hypertension Osteoarthrosis Portal vein thrombosis Rectus sheath hematoma Splenic vein thrombosis Thrombocytopenia Home Medications atorvastatin 40 mg tablet (Lipitor) 40 mg PO QHS cholesterol 02/09/22 [History Last Taken 07/17/22] labetalol 100 mg tablet 50 mg PO BID blood pressure 05/26/22 [History Last Taken 07/17/22] polysaccharide iron complex 150 mg iron capsule (Ferrex) 150 mg PO DAILYCM #90 caps 05/28/22 [Rx Last Taken Unknown] lactulose 10 gram/15 mL oral solution 30 ml PO 4X/DAY liver 10/16/22 [History Last Taken Unknown] ondansetron 4 mg disintegrating tablet 4 mg PO Q6H PRN PRN nausea/vomiting 10/16/22 [History Last Taken Unknown] spironolactone 25 mg tablet 25 mg PO DAILY liver #30 tabs 10/19/22 [Rx Last Taken Unknown] albuterol sulfate 90 mcg/actuation aerosol inhaler 2 puff inhalation Q4H PRN SOB 11/20/22 [History Last Taken Unknown] bimatoprost 0.01 % eye drops (Lumigan) 1 drp LEFT EYE DAILY GLAUCOMA 11/20/22 [History Last Taken Unknown] glimepiride 4 mg tablet 4 mg PO BREAKFAST diabetes 11/20/22 [History Last Taken Unknown] pantoprazole 40 mg tablet,delayed release 40 mg PO DAILY GERD 11/20/22 [History Last Taken Unknown] potassium chloride 20 mEq tablet,extended release(part/cryst) 20 meq PO DAILY SUPPLEMENT 11/20/22 [History Last Taken Unknown] ramipril 5 mg capsule 5 mg PO DAILY . 11/20/22 [History Last Taken Unknown] torsemide 20 mg tablet 20 mg PO DAILY WATER PILL 11/20/22 [History Last Taken Unknown] rifaximin 550 mg tablet (Xifaxan) 550 mg PO BID liver 11/22/22 [History Last Taken Unknown] Allergy/AdvReac Type Severity Reaction Status Date / Time suture Allergy Mild rash/ Verified 10/15/22 17:48 wound dehisence amoxicillin Allergy Unknown Verified 10/15/22 17:48 azithromycin Allergy Shortness Verified 10/15/22 17:48 of breath celecoxib [From Celebrex] Allergy Other Verified 10/15/22 17:48 ciprofloxacin HCl Allergy Shortness Verified 10/15/22 17:48 [From Cipro] of breath cortisone Allergy Swelling Verified 10/15/22 17:48 doxycycline Allergy Shortness Verified 10/15/22 17:48 of breath erythromycin base Allergy Unknown Verified 10/15/22 17:48 fexofenadine [From Ashlee] Allergy Unknown Verified 10/15/22 17:48 ibuprofen Allergy Shortness Verified 10/15/22 17:48 of breath Iodinated Contrast Media Allergy Shortness Verified 10/15/22 17:48 [DYEE] of breath iodine Allergy Shortness Verified 10/15/22 17:48 of breath levofloxacin [From Levaquin] Allergy Shortness Verified 10/15/22 17:48 of breath lorazepam [From Ativan] Allergy Shortness Verified 10/15/22 17:48 of breath nitrofurantoin Allergy Shortness Verified 10/15/22 17:48 macrocrystalline of breath [From Macrobid] Penicillins Allergy Shortness Verified 10/15/22 17:48 of breath rofecoxib [From Vioxx] Allergy Unknown Verified 10/15/22 17:48 Sulfa (Sulfonamide Allergy Shortness Verified 10/15/22 17:48 Antibiotics) of breath sulfamethoxazole Allergy Shortness Verified 10/15/22 17:48 [From Bactrim] of breath trimethoprim [From Bactrim] Allergy Shortness Verified 10/15/22 17:48 of breath amlodipine [From Norvasc] AdvReac Upset Verified 10/15/22 17:48 Stomach MISC BP MED Allergy Shortness Uncoded 10/15/22 17:48 of breath Family History Mother Heart disease Brother Heart disease Surgical History History of bilateral salpingo-oophorectomy History of endarterectomy History of laparoscopic cholecystectomy History of oral surgery S/P TIPS (transjugular intrahepatic portosystemic shunt) Social History household members: spouse Smoking Status: Former smoker alcohol intake: never substance use type: does not use ROS ROS Narrative Negative except above Physical Exam Narrative Alert awake no obvious distress no pallor no icterus no JVD s1s2 no murmurs lungs clear abdomen soft no organomegaly no edema no cyanosis Medical Records Data Medical Nutrition Assessment Dietitian: Malnutrition Criteria Met Start: 11/21/22 12:47 Freq: Status: Active Protocol: Document 11/21/22 12:47 [facility] (Rec: 11/21/22 12:47 [facility] [id number]) Nutrition Malnutrition Evidence of Malnutrition Exists Yes Malnutrition (severe): Chronic Evidenced By Suboptimal Energy Intake ( Severe),Weight Loss (Severe) Clinical Problem Chronic Disease or Condition Related Malnutrition Etiology severe r/t inadequate energy intake making it difficult to consume adequate nutrition to meet est nutritional needs Signs/Symptoms as evidenced by po intake meeting <75% of est nutritional needs and unintentional wt loss 25.5% wt loss x 10 mo, 8.7% wt loss x 6 mo, 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 Lab / Micro Data Result Diagrams: 11/24/22 06:30 11/24/22 06:17 Labs: Laboratory Results - last 24 hr 11/23/22 05:35: Phosphorus 5.5 H, Magnesium 1.9 11/23/22 16:49: POC Glucose 222 H 11/23/22 21:31: POC Glucose 211 H 11/24/22 06:11: POC Glucose 125 H 11/24/22 06:17: Sodium 136, Potassium 3.1 L, Chloride 115 H, Carbon Dioxide 9.0 L*, Anion Gap 12, BUN 51 H, Creatinine 3.02 H, Estim Creat Clear Calc 11.74, Est GFR (MDRD) Af Amer 19 L, Est GFR (MDRD) Non-Af 16 L, BUN/Creatinine Ratio 16.9, Glucose 136 H, Calcium 9.1, Total Bilirubin 0.50, AST 16, ALT 17, Alkaline Phosphatase 73, Total Protein 5.8 L, Albumin 2.0 L, Globulin 3.8, Albumin/Globulin Ratio 0.5 L 11/24/22 06:17: Ammonia 109.0 H 11/24/22 06:30: Random Vancomycin 15.9 H 11/24/22 06:30: WBC 12.5 H, RBC 3.03 L, Hgb 8.3 L, Hct 25.8 L, MCV 85.1, MCH 27.4, MCHC 32.2 D, RDW Std Deviation 48.6 H, RDW Coeff of Jordan 15.8 H, Plt Count 177, MPV 10.2, Immature Gran % (Auto) 0.500, Neut % (Auto) 61.3, Lymph % (Auto) 14.8 L, [place] % (Auto) 10.7 H, Eos % (Auto) 11.7 H, Baso % (Auto) 1.0, Absolute Neuts (auto) 7.7, Absolute Lymphs (auto) 1.85, Nucleated RBC % 0 11/24/22 10:59: POC Glucose 181 H Micro: Microbiology 11/22/22 10:17 Blood Culture (Wb) - Left Hand Blood Culture - Preliminary No growth in 48 hours. 11/22/22 10:17 Blood Culture (Wb) - Left Hand Blood Culture - Preliminary No growth in 48 hours. Rhythm Strip Rhythm Strip: Sinus Rhythm Rate: 80 Ectopy: None
--- NOTE | 2022-11-24 15:01 | CASEMGMT ---
Social Work Phone call to [facility] and spoke with Miranda. Pt's CM is Skye Gillette. Pt has an emergency response system. Authorized for 6 hours of aids per week but there is currently no coverage for this. [facility] to be updated at time of discharge. SAVANA Clemens
[2022-11-24 15:15] VITALS: BP 133/42; PULSE 60; RESP 18; TEMP 36.8; O2SAT 99
[2022-11-24 16:50] LABS: Bedside Glucose 218 mg/dL (74-106)
--- NOTE | 2022-11-24 19:26 | EX.PCM.CON.G ---
HPI Consult Data Date of Consult: 11/24/22 HPI Narrative Reason for Consultation: Cirrhosis HPI Narrative: MICHAEL HENLEY, is a72 F who presents with altered mental status.? She is known to GI service due to history of Núñez cirrhosis and frequent decompensated liver disease secondary to metabolic encephalopathy. She has a past medical history of Núñez cirrhosis secondary to type 2 diabetes and obesity.? Her cirrhosis and complicated by portal vein thrombosis, splenic vein thrombosis, esophageal varices, ascites, encephalopathy.? She presented to the emergency room with altered mental status. ?She she went to [facility] for a TIPS procedure.? Complications involving the TIPS procedure included worsening encephalopathy.? She has still had ascites despite having the TIPS procedure.? She has not had a paracentesis since having the TIPS placed.? When she was admitted to the hospital she was discovered to have severe hypoalbuminemia, hepatic encephalopathy ? She does not take Xifaxan and takes lactulose 3 times a day as per family.? She does not know if she has any problems with hypomagnesemia, hypokalemia as causes of her worsening encephalopathy.? She does notice she has been anemic and thrombocytopenic.? She has not received blood transfusions or platelet transfusions. [facility] Medical History Abdominal pain Anemia Ascites Asthma Cirrhosis Cirrhosis COPD (chronic obstructive pulmonary disease) Depressive disorder Diabetes mellitus GERD (gastroesophageal reflux disease) Hepatic encephalopathy Hernia history diagnostic hysteroscopy history thrombendarterectomy neck Hypertension Osteoarthrosis Portal vein thrombosis Rectus sheath hematoma Splenic vein thrombosis Thrombocytopenia Home Medications atorvastatin 40 mg tablet (Lipitor) 40 mg PO QHS cholesterol 02/09/22 [History Last Taken 07/17/22] labetalol 100 mg tablet 50 mg PO BID blood pressure 05/26/22 [History Last Taken 07/17/22] polysaccharide iron complex 150 mg iron capsule (Ferrex) 150 mg PO DAILYCM #90 caps 05/28/22 [Rx Last Taken Unknown] lactulose 10 gram/15 mL oral solution 30 ml PO 4X/DAY liver 10/16/22 [History Last Taken Unknown] ondansetron 4 mg disintegrating tablet 4 mg PO Q6H PRN PRN nausea/vomiting 10/16/22 [History Last Taken Unknown] spironolactone 25 mg tablet 25 mg PO DAILY liver #30 tabs 10/19/22 [Rx Last Taken Unknown] albuterol sulfate 90 mcg/actuation aerosol inhaler 2 puff inhalation Q4H PRN SOB 11/20/22 [History Last Taken Unknown] bimatoprost 0.01 % eye drops (Lumigan) 1 drp LEFT EYE DAILY GLAUCOMA 11/20/22 [History Last Taken Unknown] glimepiride 4 mg tablet 4 mg PO BREAKFAST diabetes 11/20/22 [History Last Taken Unknown] pantoprazole 40 mg tablet,delayed release 40 mg PO DAILY GERD 11/20/22 [History Last Taken Unknown] potassium chloride 20 mEq tablet,extended release(part/cryst) 20 meq PO DAILY SUPPLEMENT 11/20/22 [History Last Taken Unknown] ramipril 5 mg capsule 5 mg PO DAILY . 11/20/22 [History Last Taken Unknown] torsemide 20 mg tablet 20 mg PO DAILY WATER PILL 11/20/22 [History Last Taken Unknown] rifaximin 550 mg tablet (Xifaxan) 550 mg PO BID liver 11/22/22 [History Last Taken Unknown] Allergy/AdvReac Type Severity Reaction Status Date / Time suture Allergy Mild rash/ Verified 10/15/22 17:48 wound dehisence amoxicillin Allergy Unknown Verified 10/15/22 17:48 azithromycin Allergy Shortness Verified 10/15/22 17:48 of breath celecoxib [From Celebrex] Allergy Other Verified 10/15/22 17:48 ciprofloxacin HCl Allergy Shortness Verified 10/15/22 17:48 [From Cipro] of breath cortisone Allergy Swelling Verified 10/15/22 17:48 doxycycline Allergy Shortness Verified 10/15/22 17:48 of breath erythromycin base Allergy Unknown Verified 10/15/22 17:48 fexofenadine [From Ashlee] Allergy Unknown Verified 10/15/22 17:48 ibuprofen Allergy Shortness Verified 10/15/22 17:48 of breath Iodinated Contrast Media Allergy Shortness Verified 10/15/22 17:48 [DYEE] of breath iodine Allergy Shortness Verified 10/15/22 17:48 of breath levofloxacin [From Levaquin] Allergy Shortness Verified 10/15/22 17:48 of breath lorazepam [From Ativan] Allergy Shortness Verified 10/15/22 17:48 of breath nitrofurantoin Allergy Shortness Verified 10/15/22 17:48 macrocrystalline of breath [From Macrobid] Penicillins Allergy Shortness Verified 10/15/22 17:48 of breath rofecoxib [From Vioxx] Allergy Unknown Verified 10/15/22 17:48 Sulfa (Sulfonamide Allergy Shortness Verified 10/15/22 17:48 Antibiotics) of breath sulfamethoxazole Allergy Shortness Verified 10/15/22 17:48 [From Bactrim] of breath trimethoprim [From Bactrim] Allergy Shortness Verified 10/15/22 17:48 of breath amlodipine [From Norvasc] AdvReac Upset Verified 10/15/22 17:48 Stomach MISC BP MED Allergy Shortness Uncoded 10/15/22 17:48 of breath Family History Mother Heart disease Brother Heart disease Surgical History History of bilateral salpingo-oophorectomy History of endarterectomy History of laparoscopic cholecystectomy History of oral surgery S/P TIPS (transjugular intrahepatic portosystemic shunt) Social History household members: spouse Smoking Status: Former smoker alcohol intake: never substance use type: does not use ROS ROS Narrative Negative except above Physical Exam Narrative Alert awake no obvious distress no pallor no icterus no JVD s1s2 no murmurs lungs clear abdomen soft no organomegaly no edema no cyanosis Medical Records Data Medical Nutrition Assessment Dietitian: Malnutrition Criteria Met Start: 11/21/22 12:47 Freq: Status: Active Protocol: Document 11/24/22 15:28 R[facility] (Rec: 11/24/22 15:28 RMA [id number]) Nutrition Malnutrition Evidence of Malnutrition Exists Yes Malnutrition (severe): Chronic Evidenced By Suboptimal Energy Intake ( Severe),Weight Loss (Severe) Clinical Problem Chronic Disease or Condition Related Malnutrition Etiology Severe protein-calorie malnutrition in the context of chronic disease related to inadequate energy intake/ inadequate oral intake Signs/Symptoms as evidenced by po intake meeting <75% of est nutritional needs and unintentional wt loss 25.5% wt loss x 10 mo, 8.7% wt loss x 6 mo, 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 Will continue 4 oz glucerna shake 4x/day w/ medpass for increased nutrition if consumed. May need to consider enteral nutrition support if PO remains poor/inadequate at meals and weight continues to decline. Lab / Micro Data Result Diagrams: 11/24/22 06:30 11/24/22 06:17 Labs: Laboratory Results - last 24 hr 11/23/22 21:31: POC Glucose 211 H 11/24/22 06:11: POC Glucose 125 H 11/24/22 06:17: Sodium 136, Potassium 3.1 L, Chloride 115 H, Carbon Dioxide 9.0 L*, Anion Gap 12, BUN 51 H, Creatinine 3.02 H, Estim Creat Clear Calc 11.74, Est GFR (MDRD) Af Amer 19 L, Est GFR (MDRD) Non-Af 16 L, BUN/Creatinine Ratio 16.9, Glucose 136 H, Calcium 9.1, Total Bilirubin 0.50, AST 16, ALT 17, Alkaline Phosphatase 73, Total Protein 5.8 L, Albumin 2.0 L, Globulin 3.8, Albumin/Globulin Ratio 0.5 L 11/24/22 06:17: Ammonia 109.0 H 11/24/22 06:30: Random Vancomycin 15.9 H 11/24/22 06:30: WBC 12.5 H, RBC 3.03 L, Hgb 8.3 L, Hct 25.8 L, MCV 85.1, MCH 27.4, MCHC 32.2 D, RDW Std Deviation 48.6 H, RDW Coeff of Jordan 15.8 H, Plt Count 177, MPV 10.2, Immature Gran % (Auto) 0.500, Neut % (Auto) 61.3, Lymph % (Auto) 14.8 L, [place] % (Auto) 10.7 H, Eos % (Auto) 11.7 H, Baso % (Auto) 1.0, Absolute Neuts (auto) 7.7, Absolute Lymphs (auto) 1.85, Nucleated RBC % 0 11/24/22 10:59: POC Glucose 181 H 11/24/22 16:25: POC Glucose 218 H Micro: Microbiology 11/22/22 10:17 Blood Culture (Wb) - Left Hand Blood Culture - Preliminary No growth in 48 hours. 11/22/22 10:17 Blood Culture (Wb) - Left Hand Blood Culture - Preliminary No growth in 48 hours. Rhythm Strip Rhythm Strip: Sinus Rhythm Rate: 80 Ectopy: None Assessment & Plan Assessment/Plan (1) Cirrhosis: PLAN: Núñez cirrhosis not on transplant list. Her current MELD is 14 and she is a child Ortiz class C due to renal failure and hepatic encephalopathy. She is status post TIPS for refractory and recalcitrant ascites with acute kidney injury likely secondary to diuretics and diarrhea causing volume loss. Patient is noncompliant with medicines and is not on Xifaxan as an outpatient. Agree with lactulose 20 cc every 4 hours. (2) Acute hepatic encephalopathy: PLAN: She has a severe metabolic acidosis that is possibly secondary to GI bicarbonate loss. It makes it very difficult to decrease her ammonia without proper renal function and worsening metabolic acidosis. She may need CVVHD but I will leave that up to nephrology. She is on a bicarbonate drip at this time. She cannot get neomycin for worsening hepatic encephalopathy due to kidney failure. Hopefully the metabolic acidosis and renal failure can correct as that is the best way to expedite her hepatic encephalopathy improvement. Guarded prognosis. Charges/Coding Visit Charges Inpatient E&M: 43439 Init Hosp L3
[2022-11-24 20:14] VITALS: BP 149/40; PULSE 69; RESP 18; TEMP 36.4; O2SAT 100
[2022-11-24] MEDS: Latanoprost 0.005% 1 Bottle 1 DRP LEFT EYE ×2 (20:33)
[2022-11-24 23:21] LABS: Bedside Glucose 241 mg/dL (74-106)
[2022-11-25 02:02] VITALS: BP 130/41; PULSE 67; RESP 20; TEMP 36.5; O2SAT 99
[2022-11-25] MEDS: Lactulose 20 GM/30 ML UDC PO ×6 (02:04→20:21)
[2022-11-25 06:26] LABS: Absolute Lymphocyte Count 1.61 X10^3/uL (0.83-4.51); Absolute Neutrophil Count 5.5 X10^3/uL (2.0-7.7); Basophil# 0.08 X10^3/uL; Basophil% 0.8 % (0-1); Eosinophil# 1.27 X10^3/uL; Eosinophils% 13.2 % (0-5); Hematocrit 21.8 % (37-47); Lymphocyte # 1.61 X10^3/ul (0.83-4.51); Lymphocyte % 16.7 % (19-41); Mean Corp Hgb Conc 32.1 g/dL (32-36); Mean Corpuscular Hgb 26.6 pg (27.0-32.0); Mean Corpuscular Volume 82.9 fL (81-99); Mean Platelet Vol. 10.4 fl (6.2-12.0); Monocyte# 1.07 X10^3/uL; Monocyte% 11.1 % (0-10); NRBC Flagged by Analyzer 0.4 % (0-5); Neutrophil # 5.54 X10^3/uL (2.7-7.7); Neutrophil % 57.5 % (47-70); Platelet Count 166 K/mm3 (150-450); RBC Distribution Width CV 15.9 % (11.6-14.6); RBC Distribution Width SD 47.8 fl (35.1-43.9); Red Blood Count 2.63 M/mm3 (4.2-5.4); White Blood Count 9.6 K/mm3 (4.4-11.0)
[2022-11-25] MEDS: Insulin Lispro 100 UNIT/ML INSULN.PEN SC ×3 (06:44→16:54)
[2022-11-25 07:00] LABS: AST(SGOT) 17 U/L (15-37); Alanine Aminotransfer ALT/SGPT 17 U/L (13-56); Alkaline Phosphatase 70 U/L (45-117); Anion Gap 7 (5-15); BUN 41 mg/dL (7-18); BUN/Creat Ratio 15.4 RATIO (10-20); Bilirubin, Direct 0.16 mg/dL (0.00-0.30); Calcium,Total 8.8 mg/dL (8.5-10.1); Chloride 115 mmol/L (98-107); Creatinine, Serum 2.67 mg/dL (0.55-1.02); EST Glomerular Filtration Rate 19 mL/min (>60); Est Glom Filt Rate - Afr Amer 22 mL/min (>60); Estimated Creatinine Clearance 13.28 ml/min; Globulin 3.5 g/dL (2.2-4.2); Glucose 207 mg/dL (74-106); Magnesium 1.9 mg/dL (1.6-2.6); Potassium 3.5 mmol/L (3.5-5.1); Protein, Total 5.5 g/dL (6.4-8.2); Sodium Level 138 mmol/L (136-145)
[2022-11-25 07:01] LABS: International Normalized Ratio 1.3; Prothrombin Time (Protime)PT. 15.7 SECONDS (11.7-14.9)
[2022-11-25 07:29] VITALS: BP 145/45; PULSE 60; RESP 16; TEMP 36.9; O2SAT 99
[2022-11-25 08:06] LABS: Bedside Glucose 185 mg/dL (74-106)
--- NOTE | 2022-11-25 08:22 | PN.HOSP_ITS ---
Objective Data Objective Data Vital Signs: Vital Signs Temp Pulse Resp BP Pulse Ox O2 Del Method 98.5 F 60 16 145/45 H 99 Room Air 11/25/22 07:29 11/25/22 07:29 11/25/22 07:29 11/25/22 07:29 11/25/22 07:29 11/25/22 07:29 Oxygen Delivery Method Room Air Weight: 58 kg Body Mass Index (BMI) 25.0 Intake & Output: Intake and Output for Last 24 Hours 11/23/22 11/24/22 11/25/22 23:59 23:59 23:59 Intake Total 2540 / 2660 3123.34 / 3123.34 1150 / 1150 Output Total 550 / 650 500 / 500 Balance 1989 2623.34 / 2623.34 1150 / 1150 Medical Nutrition Assessment Dietitian: Malnutrition Criteria Met Start: 11/21/22 12:47 Freq: Status: Active Protocol: Document 11/24/22 15:28 RMA (Rec: 11/24/22 15:28 RMA [id number]) Nutrition Malnutrition Evidence of Malnutrition Exists Yes Malnutrition (severe): Chronic Evidenced By Suboptimal Energy Intake ( Severe),Weight Loss (Severe) Clinical Problem Chronic Disease or Condition Related Malnutrition Etiology Severe protein-calorie malnutrition in the context of chronic disease related to inadequate energy intake/ inadequate oral intake Signs/Symptoms as evidenced by po intake meeting <75% of est nutritional needs and unintentional wt loss 25.5% wt loss x 10 mo, 8.7% wt loss x 6 mo, 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 Will continue 4 oz glucerna shake 4x/day w/ medpass for increased nutrition if consumed. May need to consider enteral nutrition support if PO remains poor/inadequate at meals and weight continues to decline. Lab / Micro Data Result Diagrams: 11/25/22 06:15 11/25/22 06:15 Labs: Laboratory Results - last 24 hr 11/24/22 10:59: POC Glucose 181 H 11/24/22 16:25: POC Glucose 218 H 11/24/22 20:44: POC Glucose 241 H 11/25/22 06:09: POC Glucose 185 H 11/25/22 06:15: Ammonia 89.0 H 11/25/22 06:15: WBC 9.6, RBC 2.63 L, Hgb 7.0 L, Hct 21.8 L, MCV 82.9, MCH 26.6 L , MCHC 32.1, RDW Std Deviation 47.8 H, RDW Coeff of [place] 15.9 H, Plt Count 166, MPV 10.4, Immature Gran % (Auto) 0.700, Neut % (Auto) 57.5, Lymph % (Auto) 16.7 L, [place] % (Auto) 11.1 H, Eos % (Auto) 13.2 H, Baso % (Auto) 0.8, Absolute Neuts (auto) 5.5, Absolute Lymphs (auto) 1.61, Nucleated RBC % 0.4 11/25/22 06:15: Sodium 138, Potassium 3.5, Chloride 115 H, Carbon Dioxide 16.0 L , Anion Gap 7, BUN 41 H, Creatinine 2.67 H, Estim Creat Clear Calc 13.28, Est GFR (MDRD) Af Amer 22 L, Est GFR (MDRD) Non-Af 19 L, BUN/Creatinine Ratio 15.4, Glucose 207 H, Calcium 8.8, Phosphorus 4.0, Magnesium 1.9, Total Bilirubin 0.80, Direct Bilirubin 0.16, AST 17, ALT 17, Alkaline Phosphatase 70, Total Protein 5.5 L, Albumin 2.0 L, Globulin 3.5 11/25/22 06:35: PT 15.7 H, INR 1.3 Micro: Microbiology 11/22/22 10:17 Blood Culture (Wb) - Left Hand Blood Culture - Preliminary No growth in 48 hours. 11/22/22 10:17 Blood Culture (Wb) - Left Hand Blood Culture - Preliminary No growth in 48 hours. 11/20/22 15:45 Urine Catheter - Catheter Urine Culture - Final Culture exhibits no growth. 11/20/22 15:30 Blood Culture (Wb) - Anticubital Right Blood Culture - Final Streptococcus mitis Coag Negative Staph 11/20/22 15:35 Blood Culture (Wb) - Anticubital Left Blood Culture - Preliminary No growth in 48 hours. Rhythm Strip Rhythm Strip: Sinus Rhythm Rate: 80 Ectopy: None Physical Exam Narrative GENERAL: cooperative HEENT: Atraumatic; normocephalic EYES; Anicteric, Normal Conjunctiva NECK; supple, normal thyroid, RESPIRATORY: Diminished to auscultation CARDIOVASCULAR: Regular S1 S2, GI: soft, normoactive bowel sounds, : No Renal angle tenderness; EXTREMITIES: No edema, no clubbing, MUSCULOSKELETAL: no muscle wasting NEURO: Awake; no lateralizing signs. SKIN: No Rash PSYCH; Flat affect Const Constitutional Narrative: Awake. She keeps on saying that you want to kill me towards her daughter in the room. Does follow some commands but is a unreliable historian. HEENT normocephalic and head/scalp atraumatic Eyes EOMs intact bilaterally Eyes Narrative: No icterus Neck no lymphadenopathy Neck Narrative: No thyromegaly Resp normal respiratory effort, no retractions, no use of accessory muscles and clear to auscultation bilaterally Cardio regular rate, regular rhythm, S1 normal heart sound and S2 normal heart sound GI normal to inspection, nondistended, normoactive bowel sounds, soft to palpation, non-tender and non-distended Extremity normal to inspection Skin Skin Narrative: No rashes, no jaundice, no pulm erythema. Neuro moves all extremities Sensorium / Orientation: awake Psych Mood & Affect: anxious Assessment & Plan Assessment/Plan (1) Acute hepatic encephalopathy: (2) Acute on chronic kidney failure: QUALIFIERS: Chronic kidney disease stage: stage 3 (moderate) Chronic kidney disease stage 3 subtype: stage 3b (GFR 30-44) PLAN: Plan Patient is a 72-year-old lady with history of cirrhosis of the liver status post TIPS procedure presented to the emergency department with altered mental status and assessment of acute hepatic encephalopathy made patient admitted to a monitored bed for further management 1. Acute metabolic encephalopathy ? Attributed to patient not being compliant with her lactulose as well as acute kidney injury. This was resumed on admission patient response to therapy being monitored 2. Cirrhosis of the liver ? Status post TIPS procedure 3. Anemia - Secondary to chronic disorder monitoring H&H and transfuse if patient becomes symptomatic or hemoglobin falls below 7 4. Chronic kidney disease Has been gradual deterioration of patient creatinine starting in February 2022 when creatinine was 0.67.. On her admission was 5.79 rehydrated creatinine improved to 3.02. Consult placed to nephrology 5. Metabolic acidosis ? Secondary to patient impaired kidney function management will be deferred to nephrology 6.? GERD ? Past history 7.? Essential hypertension ? Discontinue with home medications clonidine and labetalol 8. Dyslipidemia ? Patient is on statin therapy at home held 9. Diabetes mellitus type 2 ? Managed with diet 10. Essential hypertension ? Patient blood pressure stable patient is on ARB held in view of worsening kidney function 11. COPD Aerosol treatments as needed 12. DVT prophylaxis ? On SC heparin 11.History of esophageal varices Patient underwent EGD on 02/11/2022 during her past admission which showed resolution of the varices.? She was however noted to have a single bleeding angioplastic lesion that was cauterized 12.? 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 Resolved.? Patient was apparently managed at [facility] by vascular surgery 13.? Diabetes mellitus type 2 ? Apparently managed with diet 14.? DVT prophylaxis ? Bilateral SCDs only avoided the use of chemoprophylaxis in view of patient low platelet counts Time spent in the patient's overall evaluation,decision-making process, review of diagnostic data, adjustment of management, discussion with other providers, nursing nursing and ancillary staff involved in patient's care documentation, 55 Minutes Reason for Visit Reason for Visit: Diagnoses Hyperkalemia (11/20/22) Unspecified cirrhosis of liver (11/20/22) Hepatic encephalopathy (11/20/22) Acute kidney failure, unspecified (11/20/22) Chronic kidney disease, unspecified (11/20/22)
--- NOTE | 2022-11-25 08:23 | PN.HOSP_ITS ---
Subjective Subjective Did increase patient lactulose dose the day prior. Consultation was placed to both nephrology as well as GI. Patient was started on bicarb drip by nephrology. Notes and recommendations from GI reviewed. Patient hemoglobin down to 7.0 this AM. Objective Data Objective Data Vital Signs: Vital Signs Temp Pulse Resp BP Pulse Ox O2 Del Method 98.5 F 60 16 145/45 H 99 Room Air 11/25/22 07:29 11/25/22 07:29 11/25/22 07:29 11/25/22 07:29 11/25/22 07:29 11/25/22 07:29 Oxygen Delivery Method Room Air Weight: 58 kg Body Mass Index (BMI) 25.0 Intake & Output: Intake and Output for Last 24 Hours 11/23/22 11/24/22 11/25/22 23:59 23:59 23:59 Intake Total 2540 / 2660 3123.34 / 3123.34 1150 / 1150 Output Total 550 / 650 500 / 500 Balance 1989 2623.34 / 2623.34 1150 / 1150 Medical Nutrition Assessment Dietitian: Malnutrition Criteria Met Start: 11/21/22 12:47 Freq: Status: Active Protocol: Document 11/24/22 15:28 RMA (Rec: 11/24/22 15:28 RMA [id number]) Nutrition Malnutrition Evidence of Malnutrition Exists Yes Malnutrition (severe): Chronic Evidenced By Suboptimal Energy Intake ( Severe),Weight Loss (Severe) Clinical Problem Chronic Disease or Condition Related Malnutrition Etiology Severe protein-calorie malnutrition in the context of chronic disease related to inadequate energy intake/ inadequate oral intake Signs/Symptoms as evidenced by po intake meeting <75% of est nutritional needs and unintentional wt loss 25.5% wt loss x 10 mo, 8.7% wt loss x 6 mo, 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 Will continue 4 oz glucerna shake 4x/day w/ medpass for increased nutrition if consumed. May need to consider enteral nutrition support if PO remains poor/inadequate at meals and weight continues to decline. Lab / Micro Data Result Diagrams: 11/25/22 06:15 11/25/22 06:15 Labs: Laboratory Results - last 24 hr 11/24/22 10:59: POC Glucose 181 H 11/24/22 16:25: POC Glucose 218 H 11/24/22 20:44: POC Glucose 241 H 11/25/22 06:09: POC Glucose 185 H 11/25/22 06:15: Ammonia 89.0 H 11/25/22 06:15: WBC 9.6, RBC 2.63 L, Hgb 7.0 L, Hct 21.8 L, MCV 82.9, MCH 26.6 L , MCHC 32.1, RDW Std Deviation 47.8 H, RDW Coeff of [place] 15.9 H, Plt Count 166, MPV 10.4, Immature Gran % (Auto) 0.700, Neut % (Auto) 57.5, Lymph % (Auto) 16.7 L, [place] % (Auto) 11.1 H, Eos % (Auto) 13.2 H, Baso % (Auto) 0.8, Absolute Neuts (auto) 5.5, Absolute Lymphs (auto) 1.61, Nucleated RBC % 0.4 11/25/22 06:15: Sodium 138, Potassium 3.5, Chloride 115 H, Carbon Dioxide 16.0 L , Anion Gap 7, BUN 41 H, Creatinine 2.67 H, Estim Creat Clear Calc 13.28, Est GFR (MDRD) Af Amer 22 L, Est GFR (MDRD) Non-Af 19 L, BUN/Creatinine Ratio 15.4, Glucose 207 H, Calcium 8.8, Phosphorus 4.0, Magnesium 1.9, Total Bilirubin 0.80, Direct Bilirubin 0.16, AST 17, ALT 17, Alkaline Phosphatase 70, Total Protein 5 .5 L, Albumin 2.0 L, Globulin 3.5 11/25/22 06:35: PT 15.7 H, INR 1.3 Micro: Microbiology 11/22/22 10:17 Blood Culture (Wb) - Left Hand Blood Culture - Preliminary No growth in 48 hours. 11/22/22 10:17 Blood Culture (Wb) - Left Hand Blood Culture - Preliminary No growth in 48 hours. 11/20/22 15:45 Urine Catheter - Catheter Urine Culture - Final Culture exhibits no growth. 11/20/22 15:30 Blood Culture (Wb) - Anticubital Right Blood Culture - Final Streptococcus mitis Coag Negative Staph 11/20/22 15:35 Blood Culture (Wb) - Anticubital Left Blood Culture - Preliminary No growth in 48 hours. Rhythm Strip Rhythm Strip: Sinus Rhythm Rate: 80 Ectopy: None Physical Exam Narrative GENERAL: Somewhat lethargic HEENT: Atraumatic; normocephalic EYES; Anicteric, Normal Conjunctiva NECK; supple, normal thyroid, RESPIRATORY: Diminished to auscultation CARDIOVASCULAR:? Regular S1 S2, GI:? soft, normoactive bowel sounds, : No Renal angle tenderness; EXTREMITIES:? No edema, no clubbing, MUSCULOSKELETAL:? no muscle wasting NEURO:? Awake;? no lateralizing signs. SKIN:? No Rash PSYCH; Flat? affect Assessment & Plan Assessment/Plan (1) Acute hepatic encephalopathy: PLAN: Plan Patient is a 72-year-old lady with history of cirrhosis of the liver status post TIPS procedure presented to the emergency department with altered mental status and assessment of acute hepatic encephalopathy made patient admitted to a monitored bed for further management 1.? Acute metabolic encephalopathy ? Attributed to patient not being compliant with her lactulose as well as acute kidney injury.? This was resumed on admission patient response to therapy being monitored 2.? Cirrhosis of the liver ? Status post TIPS procedure 3.? Anemia - Secondary to chronic disorder monitoring H&H and transfuse if patient becomes symptomatic or hemoglobin falls below? 7 4.? Chronic kidney disease Has been gradual deterioration of patient creatinine starting in February 2022 when creatinine was 0.67..? On her admission was 5.79 rehydrated creatinine improved to 3.02.? Consult placed to nephrology 5.? Metabolic acidosis ? Secondary to patient impaired kidney function management will be deferred to nephrology 6.? GERD ? Past history 7.? Essential hypertension ? Discontinue with home medications clonidine and labetalol 8.? Dyslipidemia ? Patient is on statin therapy at home held 9.? Diabetes mellitus type 2 ? Managed with diet 10.? Essential hypertension ? Patient blood pressure stable patient is on ARB held in view of worsening kidney function 11.? COPD Aerosol treatments as needed 12. DVT prophylaxis ? On SC heparin 11.History of esophageal varices Patient underwent EGD on 02/11/2022 during her past admission which showed resolution of the varices.? She was however noted to have a single bleeding a ngioplastic lesion that was cauterized 12.? 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 Resolved.? Patient was apparently managed at [facility] by vascular surgery 13.? Diabetes mellitus type 2 ? Apparently managed with diet 14.? DVT prophylaxis ? Bilateral SCDs only avoided the use of chemoprophylaxis in view of patient low platelet counts 15. 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 Continue liberal regular/no added salt d/t signs and symptoms of malnutrition; Carbohydrate-Controlled/sodium-restricted diet if PO improves at meals. Will continue 4 oz glucerna shake 4x/day w/ medpass for increased nutrition if consumed.? Time spent in the patient's overall evaluation,decision-making process, review of diagnostic data, adjustment of management, discussion with other providers, nursing nursing and ancillary staff involved in patient's care documentation, 55? Minutes Charges/Coding Visit Charges Inpatient E&M: 43527 Subs Hosp L3 Reason for Visit Reason for Visit: Diagnoses Hyperkalemia (11/20/22) Unspecified cirrhosis of liver (11/20/22) Hepatic encephalopathy (11/20/22) Acute kidney failure, unspecified (11/20/22) Chronic kidney disease, unspecified (11/20/22)
[2022-11-25] MEDS: Potassium Chloride Oral Tablet 20 MEQ PO ×2 (08:40→16:55)
[2022-11-25] MEDS: Iron Polysaccharide Complex 150 MG CAPSULE PO (08:40)
[2022-11-25] MEDS: Heparin Injection (Vial) 5,000 UNIT/ML VIAL 5000 UNIT SC ×2 (08:41→20:21)
[2022-11-25] MEDS: Pantoprazole Sodium 40 MG Tablet PO (08:42)
[2022-11-25] MEDS: Labetalol 100 MG Tablet 50 MG PO ×2 (08:42→20:21)
[2022-11-25] MEDS: rifAXIMin 550 MG Tablet PO ×2 (08:43→20:20)
[2022-11-25] MEDS: Glucerna Shake 120 ML LIQUID PO ×2 (08:52→14:07)
--- NOTE | 2022-11-25 10:56 | PCM.PN.REN ---
Subjective Subjective No new events. She is alert, awake but unable to carry on conversation. When I asked if she has any pain or discomfort she is just stares. When asked if she has any breathing difficulty she says no. Objective Data Objective Data Vital Signs: Vital Signs Temp Pulse Resp BP Pulse Ox O2 Del Method 98.5 F 60 16 145/45 H 99 Room Air 11/25/22 07:29 11/25/22 07:29 11/25/22 07:29 11/25/22 07:29 11/25/22 07:29 11/25/22 10:43 Oxygen Delivery Method Room Air Weight: 58 kg Body Mass Index (BMI) 25.0 Intake & Output: Intake and Output for Last 24 Hours 11/23/22 11/24/22 11/25/22 23:59 23:59 23:59 Intake Total 2540 / 2660 3123.34 / 3123.34 1150 / 1150 Output Total 550 / 650 500 / 500 Balance 1989 2623.34 / 2623.34 1150 / 1150 Medical Nutrition Assessment Dietitian: Malnutrition Criteria Met Start: 11/21/22 12:47 Freq: Status: Active Protocol: Document 11/24/22 15:28 RMA (Rec: 11/24/22 15:28 RMA [id number]) Nutrition Malnutrition Evidence of Malnutrition Exists Yes Malnutrition (severe): Chronic Evidenced By Suboptimal Energy Intake ( Severe),Weight Loss (Severe) Clinical Problem Chronic Disease or Condition Related Malnutrition Etiology Severe protein-calorie malnutrition in the context of chronic disease related to inadequate energy intake/ inadequate oral intake Signs/Symptoms as evidenced by po intake meeting <75% of est nutritional needs and unintentional wt loss 25.5% wt loss x 10 mo, 8.7% wt loss x 6 mo, 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 Will continue 4 oz glucerna shake 4x/day w/ medpass for increased nutrition if consumed. May need to consider enteral nutrition support if PO remains poor/inadequate at meals and weight continues to decline. Lab / Micro Data Result Diagrams: 11/25/22 06:15 11/25/22 06:15 Labs: Laboratory Results - last 24 hr 11/24/22 10:59: POC Glucose 181 H 11/24/22 16:25: POC Glucose 218 H 11/24/22 20:44: POC Glucose 241 H 11/25/22 06:09: POC Glucose 185 H 11/25/22 06:15: Ammonia 89.0 H 11/25/22 06:15: WBC 9.6, RBC 2.63 L, Hgb 7.0 L, Hct 21.8 L, MCV 82.9, MCH 26.6 L, MCHC 32.1, RDW Std Deviation 47.8 H, RDW Coeff of [place] 15.9 H, Plt Count 166, MPV 10.4, Immature Gran % (Auto) 0.700, Neut % (Auto) 57.5, Lymph % (Auto) 16.7 L, [place] % (Auto) 11.1 H, Eos % (Auto) 13.2 H, Baso % (Auto) 0.8, Absolute Neuts (auto) 5.5, Absolute Lymphs (auto) 1.61, Nucleated RBC % 0.4 11/25/22 06:15: Sodium 138, Potassium 3.5, Chloride 115 H, Carbon Dioxide 16.0 L, Anion Gap 7, BUN 41 H, Creatinine 2.67 H, Estim Creat Clear Calc 13.28, Est GFR (MDRD) Af Amer 22 L, Est GFR (MDRD) Non-Af 19 L, BUN/Creatinine Ratio 15.4, Glucose 207 H, Calcium 8.8, Phosphorus 4.0, Magnesium 1.9, Total Bilirubin 0.80, Direct Bilirubin 0.16, AST 17, ALT 17, Alkaline Phosphatase 70, Total Protein 5.5 L, Albumin 2.0 L, Globulin 3.5 11/25/22 06:35: PT 15.7 H, INR 1.3 Micro: Microbiology 11/22/22 10:17 Blood Culture (Wb) - Left Hand Blood Culture - Preliminary No growth in 48 hours. 11/22/22 10:17 Blood Culture (Wb) - Left Hand Blood Culture - Preliminary No growth in 48 hours. 11/20/22 15:45 Urine Catheter - Catheter Urine Culture - Final Culture exhibits no growth. 11/20/22 15:30 Blood Culture (Wb) - Anticubital Right Blood Culture - Final Streptococcus mitis Coag Negative Staph 11/20/22 15:35 Blood Culture (Wb) - Anticubital Left Blood Culture - Preliminary No growth in 48 hours. Rhythm Strip Rhythm Strip: Sinus Rhythm Rate: 80 Ectopy: None Physical Exam Narrative Alert awake no obvious distress no pallor no icterus no JVD s1s2 no murmurs lungs clear abdomen soft no organomegaly no edema no cyanosis Assessment & Plan Assessment/Plan (1) Acute on chronic kidney failure: QUALIFIERS: Chronic kidney disease stage: stage 3 (moderate) Chronic kidney disease stage 3 subtype: stage 3b (GFR 30-44) PLAN: Plan Acute renal failure. Repeated episodes of SKY within the last 6 months hence baseline is difficult to establish. Lowest creatinine was around 1.2. Creatinine was almost 5 at the time of admission, it is actually better. Urine analysis looks fairly benign. No obstructive symptoms. Prior renal ultrasound without any hydronephrosis. Creatinine continues to improve Acidosis. Bicarb levels have improved, today at 16. Continue IV bicarbonate 1 more day. Will likely discontinue tomorrow. Hyperkalemia initially, now hypokalemia. At home she was on Aldactone, potassium supplements. Now likely due to GI losses, potassium is low. Potassium levels better. I would continue the oral potassium. History of cirrhosis, s/p TIPS due to repeated ascites now complicated by hepatic cephalopathy. GI note reviewed.
[2022-11-25 11:50] LABS: Bedside Glucose 251 mg/dL (74-106)
[2022-11-25 13:46] VITALS: BP 114/46; PULSE 65; RESP 17; TEMP 36.9; O2SAT 98
[2022-11-25 16:20] LABS: Bedside Glucose 262 mg/dL (74-106)
--- NOTE | 2022-11-25 16:36 | PN_ITS ---
Subjective Subjective Patient is a little bit more alert today. She knows that she is in a hospital. She has been sleeping on and off. Objective Data Objective Data Vital Signs: Vital Signs Temp Pulse Resp BP Pulse Ox O2 Del Method 98.5 F 65 17 114/46 L 98 Room Air 11/25/22 13:46 11/25/22 13:46 11/25/22 13:46 11/25/22 13:46 11/25/22 13:46 11/25/22 13:46 Oxygen Delivery Method Room Air Weight: 127 lb 13.89 oz Body Mass Index (BMI) 25.0 Intake & Output: Intake and Output for Last 24 Hours 11/23/22 11/24/22 11/25/22 23:59 23:59 23:59 Intake Total 2540 / 2660 3123.34 / 3123.34 2925 / 2925 Output Total 550 / 650 500 / 500 Balance 1989 2623.34 / 2623.34 2925 / 2925 Medical Nutrition Assessment Dietitian: Malnutrition Criteria Met Start: 11/21/22 12:47 Freq: Status: Active Protocol: Document 11/24/22 15:28 RMA (Rec: 11/24/22 15:28 RMA [id number]) Nutrition Malnutrition Evidence of Malnutrition Exists Yes Malnutrition (severe): Chronic Evidenced By Suboptimal Energy Intake ( Severe),Weight Loss (Severe) Clinical Problem Chronic Disease or Condition Related Malnutrition Etiology Severe protein-calorie malnutrition in the context of chronic disease related to inadequate energy intake/ inadequate oral intake Signs/Symptoms as evidenced by po intake meeting <75% of est nutritional needs and unintentional wt loss 25.5% wt loss x 10 mo, 8.7% wt loss x 6 mo, 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 Will continue 4 oz glucerna shake 4x/day w/ medpass for increased nutrition if consumed. May need to consider enteral nutrition support if PO remains poor/inadequate at meals and weight continues to decline. Lab / Micro Data Result Diagrams: 11/25/22 06:15 11/25/22 06:15 Labs: Laboratory Results - last 24 hr 11/24/22 16:25: POC Glucose 218 H 11/24/22 20:44: POC Glucose 241 H 11/25/22 06:09: POC Glucose 185 H 11/25/22 06:15: Ammonia 89.0 H 11/25/22 06:15: WBC 9.6, RBC 2.63 L, Hgb 7.0 L, Hct 21.8 L, MCV 82.9, MCH 26.6 L , MCHC 32.1, RDW Std Deviation 47.8 H, RDW Coeff of [place] 15.9 H, Plt Count 166, MPV 10.4, Immature Gran % (Auto) 0.700, Neut % (Auto) 57.5, Lymph % (Auto) 16.7 L, [place] % (Auto) 11.1 H, Eos % (Auto) 13.2 H, Baso % (Auto) 0.8, Absolute Neuts (auto) 5.5, Absolute Lymphs (auto) 1.61, Nucleated RBC % 0.4 11/25/22 06:15: Sodium 138, Potassium 3.5, Chloride 115 H, Carbon Dioxide 16.0 L , Anion Gap 7, BUN 41 H, Creatinine 2.67 H, Estim Creat Clear Calc 13.28, Est GFR (MDRD) Af Amer 22 L, Est GFR (MDRD) Non-Af 19 L, BUN/Creatinine Ratio 15.4, Glucose 207 H, Calcium 8.8, Phosphorus 4.0, Magnesium 1.9, Total Bilirubin 0.80, Direct Bilirubin 0.16, AST 17, ALT 17, Alkaline Phosphatase 70, Total Protein 5.5 L, Albumin 2.0 L, Globulin 3.5 11/25/22 06:35: PT 15.7 H, INR 1.3 11/25/22 11:26: POC Glucose 251 H 11/25/22 16:02: POC Glucose 262 H Micro: Microbiology 11/22/22 10:17 Blood Culture (Wb) - Left Hand Blood Culture - Preliminary No growth in 48 hours. 11/22/22 10:17 Blood Culture (Wb) - Left Hand Blood Culture - Preliminary No growth in 48 hours. 11/20/22 15:45 Urine Catheter - Catheter Urine Culture - Final Culture exhibits no growth. 11/20/22 15:30 Blood Culture (Wb) - Anticubital Right Blood Culture - Final Streptococcus mitis Coag Negative Staph 11/20/22 15:35 Blood Culture (Wb) - Anticubital Left Blood Culture - Preliminary No growth in 48 hours. Rhythm Strip Rhythm Strip: Sinus Rhythm Rate: 80 Ectopy: None Physical Exam Narrative GENERAL: Somewhat lethargic HEENT: Atraumatic; normocephalic EYES; Anicteric, Normal Conjunctiva NECK; supple, normal thyroid, RESPIRATORY: Diminished to auscultation CARDIOVASCULAR:? Regular S1 S2, GI:? soft, normoactive bowel sounds, : No Renal angle tenderness; EXTREMITIES:? No edema, no clubbing, MUSCULOSKELETAL:? no muscle wasting NEURO:? Awake;? no lateralizing signs. SKIN:? No Rash PSYCH; Flat? affect Assessment & Plan Assessment/Plan (1) Cirrhosis: PLAN: Núñez cirrhosis not on transplant list. Her current MELD is 14 and she is a child Ortiz class C due to renal failure and hepatic encephalopathy. She is status post TIPS for refractory and recalcitrant ascites with acute kidney injury likely secondary to diuretics and diarrhea causing volume loss. Patient is noncompliant with medicines and is not on Xifaxan as an outpatient. Agree with lactulose 20 cc every 4 hours. (2) Acute hepatic encephalopathy: PLAN: She has a severe metabolic acidosis that is possibly secondary to GI bicarbonate loss. Her sodium bicarbonate is improving on a bicarb drip. Critically ill patients with cirrhosis have a high mortality rate and poor prognosis because of the high prevalence of metabolic acidosis. MELD-NA performs well on the short-term mortality assessment in critically ill patients with cirrhosis and metabolic acidosis. Her MELD sodium is lower because she has a TIPS procedure. It is currently calculated out at a 16. She is still a child Ortiz class C. GI bleeding either from portal gastropathy, gastric antral vascular ectasia or varices can lead to worsening encephalopathy. Therefore after her bicarbonate loss is improved she will need an upper endoscopy to make sure that her anemia is not contributing to her encephalopathy. Guarded prognosis. Charges/Coding Visit Charges Inpatient E&M: 38407 [facility] Hosp L3
[2022-11-25 20:11] VITALS: BP 146/44; PULSE 77; RESP 20; TEMP 36.9; O2SAT 97
[2022-11-25] MEDS: Latanoprost 0.005% 1 Bottle 1 DRP LEFT EYE (20:22)
[2022-11-26] VITALS (14 sets, daily range): BP systolic 129–158; BP diastolic 31–56; PULSE 66–81; RESP 16–70; TEMP 36.3–37.6; O2SAT 94–100
[2022-11-26] LABS: Bedside Glucose 218 mg/dL (74-106)
[2022-11-26] MEDS: Lactulose 20 GM/30 ML UDC PO ×6 (01:57→22:55)
[2022-11-26] MEDS: Insulin Lispro 100 UNIT/ML INSULN.PEN SC ×3 (05:48→16:48)
[2022-11-26 06:45] LABS: Bedside Glucose 183 mg/dL (74-106)
--- NOTE | 2022-11-26 07:50 | PN.HOSP_ITS ---
Reason for Visit Reason for Visit: Diagnoses Hyperkalemia (11/20/22) Unspecified cirrhosis of liver (11/20/22) Hepatic encephalopathy (11/20/22) Acute kidney failure, unspecified (11/20/22) Chronic kidney disease, unspecified (11/20/22) Subjective Subjective Patient seen hemoglobin down to 6.6. Patient heparin discontinued. Patient appears awake and interactive but somewhat confused Objective Data Objective Data Vital Signs: Vital Signs Temp Pulse Resp BP Pulse Ox O2 Del Method 97.7 F L 66 18 145/45 H 94 Room Air 11/26/22 06:02 11/26/22 06:02 11/26/22 06:02 11/26/22 06:02 11/26/22 06:02 11/26/22 06:02 Oxygen Delivery Method Room Air Weight: 58 kg Body Mass Index (BMI) 25.0 Intake & Output: Intake and Output for Last 24 Hours 11/24/22 11/25/22 11/26/22 23:59 23:59 23:59 Intake Total 3123.34 / 3123.34 3285 / 3285 1420 / 1420 Output Total 500 / 500 Balance 2623.34 / 2623.34 3285 / 3285 1420 / 1420 Medical Nutrition Assessment Dietitian: Malnutrition Criteria Met Start: 11/21/22 12:47 Freq: Status: Active Protocol: Document 11/24/22 15:28 RMA (Rec: 11/24/22 15:28 RMA [id number]) Nutrition Malnutrition Evidence of Malnutrition Exists Yes Malnutrition (severe): Chronic Evidenced By Suboptimal Energy Intake ( Severe),Weight Loss (Severe) Clinical Problem Chronic Disease or Condition Related Malnutrition Etiology Severe protein-calorie malnutrition in the context of chronic disease related to inadequate energy intake/ inadequate oral intake Signs/Symptoms as evidenced by po intake meeting <75% of est nutritional needs and unintentional wt loss 25.5% wt loss x 10 mo, 8.7% wt loss x 6 mo, 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 Will continue 4 oz glucerna shake 4x/day w/ medpass for increased nutrition if consumed. May need to consider enteral nutrition support if PO remains poor/inadequate at meals and weight continues to decline. Lab / Micro Data Result Diagrams: 11/26/22 09:20 11/26/22 09:20 Labs: Laboratory Results - last 24 hr 11/25/22 06:09: POC Glucose 185 H 11/25/22 11:26: POC Glucose 251 H 11/25/22 16:02: POC Glucose 262 H 11/25/22 20:20: POC Glucose 218 H 11/26/22 05:46: POC Glucose 183 H Micro: Microbiology 11/20/22 15:35 Blood Culture (Wb) - Anticubital Left Blood Culture - Final No growth in 5 days. 11/22/22 10:17 Blood Culture (Wb) - Left Hand Blood Culture - Preliminary No growth in 48 hours. 11/22/22 10:17 Blood Culture (Wb) - Left Hand Blood Culture - Preliminary No growth in 48 hours. 11/20/22 15:45 Urine Catheter - Catheter Urine Culture - Final Culture exhibits no growth. 11/20/22 15:30 Blood Culture (Wb) - Anticubital Right Blood Culture - Final Streptococcus mitis Coag Negative Staph Rhythm Strip Rhythm Strip: Sinus Rhythm Rate: 80 Ectopy: None Physical Exam Narrative GENERAL: Somewhat lethargic HEENT: Atraumatic; normocephalic EYES; Anicteric, Normal Conjunctiva NECK; supple, normal thyroid, RESPIRATORY: Diminished to auscultation CARDIOVASCULAR:? Regular S1 S2, GI:? soft, normoactive bowel sounds, : No Renal angle tenderness; EXTREMITIES:? No edema, no clubbing, MUSCULOSKELETAL:? no muscle wasting NEURO:? Awake;? no lateralizing signs. SKIN:? No Rash PSYCH; Flat? affect Assessment & Plan Assessment/Plan (1) Acute hepatic encephalopathy: PLAN: Plan Patient is a 72-year-old lady with history of cirrhosis of the liver status post TIPS procedure presented to the emergency department with altered mental status and assessment of acute hepatic encephalopathy made patient admitted to a monitored bed for further management 1.? Acute metabolic encephalopathy ? Attributed to patient not being compliant with her lactulose as well as acute kidney injury.? This was resumed on admission patient response to therapy being monitored 2.? Cirrhosis of the liver ? Status post TIPS procedure 3.? Anemia - Secondary to chronic disorder monitoring H&H and transfuse if patient becomes symptomatic or hemoglobin falls below? 7 ? With patient hemoglobin dropping to 6.6 an order was given for patient to be transfused 1 unit PRBC with repeat H&H ordered posttransfusion 4.? Chronic kidney disease Has been gradual deterioration of patient creatinine starting in February 2022 when creatinine was 0.67..? On her admission was 5.79 rehydrated creatinine improved to 3.02.? Consult placed to nephrology 5.? Metabolic acidosis ? Secondary to patient impaired kidney function management will be deferred to nephrology 6.? GERD ? Past history 7.? Essential hypertension ? Discontinue with home medications clonidine and labetalol 8.? Dyslipidemia ? Patient is on statin therapy at home held 9.? Diabetes mellitus type 2 ? Managed with diet 10.? Essential hypertension ? Patient blood pressure stable patient is on ARB held in view of worsening kidney function 11.? COPD Aerosol treatments as needed 12. DVT prophylaxis ? On SC heparin 11.History of esophageal varices Patient underwent EGD on 02/11/2022 during her past admission which showed resolution of the varices.? She was however noted to have a single bleeding angioplastic lesion that was cauterized 12.? 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 Resolved.? Patient was apparently managed at [facility] by vascular surgery 13.? Diabetes mellitus type 2 ? Apparently managed with diet 14.? DVT prophylaxis ? Bilateral SCDs only avoided the use of chemoprophylaxis in view of patient low platelet counts 15. 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 Continue liberal regular/no added salt d/t signs and symptoms of malnutrition; Carbohydrate-Controlled/sodium-restricted diet if PO improves at meals. Will continue 4 oz glucerna shake 4x/day w/ medpass for increased nutrition if consumed.? 16. Hypokalemia ? Corrected per protocol repeat BMP ordered for follow-up. Time spent in the patient's overall evaluation,decision-making process, review of diagnostic data, adjustment of management, discussion with other providers, nursing nursing and ancillary staff involved in patient's care documentation, 55? Minutes Charges/Coding Visit Charges Inpatient E&M: 15008 [facility] Hosp L3
[2022-11-26 09:35] LABS: Absolute Lymphocyte Count 1.51 X10^3/uL (0.83-4.51); Absolute Neutrophil Count 5.1 X10^3/uL (2.0-7.7); Basophil# 0.07 X10^3/uL; Basophil% 0.8 % (0-1); Eosinophil# 1.22 X10^3/uL; Eosinophils% 13.7 % (0-5); Hematocrit 20.7 % (37-47); Hemoglobin 6.6 g/dL (12.0-15.0); Lymphocyte # 1.51 X10^3/ul (0.83-4.51); Lymphocyte % 16.9 % (19-41); Mean Corp Hgb Conc 31.9 g/dL (32-36); Mean Corpuscular Hgb 26.6 pg (27.0-32.0); Mean Corpuscular Volume 83.5 fL (81-99); Mean Platelet Vol. 10.7 fl (6.2-12.0); Monocyte# 1.03 X10^3/uL; Monocyte% 11.5 % (0-10); NRBC Flagged by Analyzer 0 % (0-5); Neutrophil # 5.05 X10^3/uL (2.7-7.7); Neutrophil % 56.5 % (47-70); Platelet Count 151 K/mm3 (150-450); RBC Distribution Width CV 16.3 % (11.6-14.6); RBC Distribution Width SD 48.6 fl (35.1-43.9); Red Blood Count 2.48 M/mm3 (4.2-5.4); White Blood Count 8.9 K/mm3 (4.4-11.0)
[2022-11-26] MEDS: Glucerna Shake 120 ML LIQUID PO ×4 (09:58→22:55)
[2022-11-26 09:59] LABS: Vancomycin, Trough Level 24.5 ug/mL (5.0-15.0)
[2022-11-26] MEDS: Iron Polysaccharide Complex 150 MG CAPSULE PO (09:59)
[2022-11-26] MEDS: Potassium Chloride Oral Tablet 20 MEQ PO ×2 (09:59→18:06)
[2022-11-26] MEDS: Labetalol 100 MG Tablet 50 MG PO ×2 (10:00→22:55)
[2022-11-26] MEDS: Pantoprazole Sodium 40 MG Tablet PO (10:00)
[2022-11-26 10:01] LABS: AST(SGOT) 13 U/L (15-37); Alanine Aminotransfer ALT/SGPT 17 U/L (13-56); Albumin, Serum 1.7 g/dL (3.2-5.0); Alkaline Phosphatase 65 U/L (45-117); Anion Gap 8 (5-15); BUN 38 mg/dL (7-18); BUN/Creat Ratio 14.4 RATIO (10-20); Bilirubin, Direct 0.14 mg/dL (0.00-0.30); Calcium,Total 8.5 mg/dL (8.5-10.1); Chloride 111 mmol/L (98-107); Creatinine, Serum 2.64 mg/dL (0.55-1.02); EST Glomerular Filtration Rate 19 mL/min (>60); Est Glom Filt Rate - Afr Amer 23 mL/min (>60); Estimated Creatinine Clearance 13.43 ml/min; Globulin 3.3 g/dL (2.2-4.2); Glucose 225 mg/dL (74-106); Potassium 3.2 mmol/L (3.5-5.1); Sodium Level 140 mmol/L (136-145)
[2022-11-26] MEDS: rifAXIMin 550 MG Tablet PO ×2 (10:01→22:55)
--- NOTE | 2022-11-26 10:17 | NURSING ---
Vancomycin trough result of 24.5. This RN called pharmacist Gary to inform of results. Pharmacist stated to hold 1000 scheduled dose of Vancomycin and dose would be adjusted.
--- NOTE | 2022-11-26 10:32 | PCM.RX.CS ---
Consult Pharmacy has been consulted to manage selected antiobiotic: Vancomycin Type of Consult: Follow-up Prior Doses of Antibiotics Received/Current Regimen: 750MG IV Q24H Labs: Sodium 140 mmol/L (136-145) 11/26/22 09:20 Potassium 3.2 mmol/L (3.5-5.1) L 11/26/22 09:20 Chloride 111 mmol/L (98-107) H 11/26/22 09:20 Carbon Dioxide 21.0 mmol/L (21.0-32.0) 11/26/22 09:20 Anion Gap 8 (5-15) 11/26/22 09:20 BUN 38 mg/dL (7-18) H 11/26/22 09:20 Creatinine 2.64 mg/dL (0.55-1.02) H 11/26/22 09:20 Est GFR (MDRD) Af Amer 23 mL/min (>60) L 11/26/22 09:20 Est GFR (MDRD) Non-Af 19 mL/min (>60) L 11/26/22 09:20 BUN/Creatinine Ratio 14.4 RATIO (10-20) 11/26/22 09:20 Glucose 225 mg/dL (74-106) H 11/26/22 09:20 Vancomycin Trough 24.5 ug/mL (5.0-15.0) H 11/26/22 09:20 Random Vancomycin 15.9 ug/mL (0.0-15.0) H 11/24/22 06:30 Microbiology: Microbiology 11/20/22 15:35 Blood Culture (Wb) - Anticubital Left Blood Culture - Final No growth in 5 days. 11/22/22 10:17 Blood Culture (Wb) - Left Hand Blood Culture - Preliminary No growth in 48 hours. 11/22/22 10:17 Blood Culture (Wb) - Left Hand Blood Culture - Preliminary No growth in 48 hours. 11/20/22 15:45 Urine Catheter - Catheter Urine Culture - Final Culture exhibits no growth. 11/20/22 15:30 Blood Culture (Wb) - Anticubital Right Blood Culture - Final Streptococcus mitis Coag Negative Staph Weight used for dosin kg Estimated Creatinine Clearance: 13 ml/min Goal Trough: 15-20 mcg/mL Pharmacy Plan for Drug Dosing: TROUGH TODAY 24HRS POST LAST DOSE WAS 24.5 AND ABOVE GOAL OF 15-20. CURRENT ORDER OF 750MG IV DAILY WILL BE HELD. RANDOM LEVEL ORDERED FOR 11.27.22. Pharmacy Service will continue to monitor and adjust dosing as required. Follow-Up Labs: Trough Vancomycin - RANDOM 11.27.22 @0600
--- NOTE | 2022-11-26 10:45 | PN.RENAL_ITS ---
Subjective Subjective Alert, awake but not completely oriented Objective Data Objective Data Vital Signs: Vital Signs Temp Pulse Resp BP Pulse Ox O2 Del Method 98.1 F 67 16 141/35 H 98 Room Air 11/26/22 09:54 11/26/22 09:54 11/26/22 09:54 11/26/22 09:54 11/26/22 09:54 11/26/22 09:54 Oxygen Delivery Method Room Air Weight: 58 kg Body Mass Index (BMI) 25.0 Intake & Output: Intake and Output for Last 24 Hours 11/24/22 11/25/22 11/26/22 23:59 23:59 23:59 Intake Total 3123.34 / 3123.34 3285 / 3285 2044 Output Total 500 / 500 Balance 2623.34 / 2623.34 3285 / 3285 2044 Medical Nutrition Assessment Dietitian: Malnutrition Criteria Met Start: 11/21/22 12:47 Freq: Status: Active Protocol: Document 11/24/22 15:28 RMA (Rec: 11/24/22 15:28 RMA [id number]) Nutrition Malnutrition Evidence of Malnutrition Exists Yes Malnutrition (severe): Chronic Evidenced By Suboptimal Energy Intake ( Severe),Weight Loss (Severe) Clinical Problem Chronic Disease or Condition Related Malnutrition Etiology Severe protein-calorie malnutrition in the context of chronic disease related to inadequate energy intake/ inadequate oral intake Signs/Symptoms as evidenced by po intake meeting <75% of est nutritional needs and unintentional wt loss 25.5% wt loss x 10 mo, 8.7% wt loss x 6 mo, 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 Will continue 4 oz glucerna shake 4x/day w/ medpass for increased nutrition if consumed. May need to consider enteral nutrition support if PO remains poor/inadequate at meals and weight continues to decline. Lab / Micro Data Result Diagrams: 11/26/22 09:20 11/26/22 09:20 Labs: Laboratory Results - last 24 hr 11/25/22 11:26: POC Glucose 251 H 11/25/22 16:02: POC Glucose 262 H 11/25/22 20:20: POC Glucose 218 H 11/26/22 05:46: POC Glucose 183 H 11/26/22 09:20: Vancomycin Trough 24.5 H 11/26/22 09:20: Ammonia 95.0 H 11/26/22 09:20: WBC 8.9, RBC 2.48 L, Hgb 6.6 L, Hct 20.7 L, MCV 83.5, MCH 26.6 L , MCHC 31.9 L, RDW Std Deviation 48.6 H, RDW Coeff of [place] 16.3 H, Plt Count 151, MPV 10.7, Immature Gran % (Auto) 0.600, Neut % (Auto) 56.5, Lymph % (Auto) 16.9 L, [place] % (Auto) 11.5 H, Eos % (Auto) 13.7 H, Baso % (Auto) 0.8, Absolute Neuts (auto) 5.1, Absolute Lymphs (auto) 1.51, Nucleated RBC % 0 11/26/22 09:20: Sodium 140, Potassium 3.2 L, Chloride 111 H, Carbon Dioxide 21.0, Anion Gap 8, BUN 38 H, Creatinine 2.64 H, Estim Creat Clear Calc 13.43, Est GFR (MDRD) Af Amer 23 L, Est GFR (MDRD) Non-Af 19 L, BUN/Creatinine Ratio 14.4, Glucose 225 H, Calcium 8.5, Total Bilirubin 0.40, Direct Bilirubin 0.14, AST 13 L, ALT 17, Alkaline Phosphatase 65, Total Protein 5.0 L, Albumin 1.7 L, Globulin 3.3 Micro: Microbiology 11/20/22 15:35 Blood Culture (Wb) - Anticubital Left Blood Culture - Final No growth in 5 days. 11/22/22 10:17 Blood Culture (Wb) - Left Hand Blood Culture - Preliminary No growth in 48 hours. 11/22/22 10:17 Blood Culture (Wb) - Left Hand Blood Culture - Preliminary No growth in 48 hours. 11/20/22 15:45 Urine Catheter - Catheter Urine Culture - Final Culture exhibits no growth. 11/20/22 15:30 Blood Culture (Wb) - Anticubital Right Blood Culture - Final Streptococcus mitis Coag Negative Staph Rhythm Strip Rhythm Strip: Sinus Rhythm Rate: 80 Ectopy: None Physical Exam Narrative Alert awake no obvious distress no pallor no icterus no JVD s1s2 no murmurs lungs clear abdomen soft no organomegaly no edema no cyanosis Assessment & Plan Assessment/Plan (1) Acute on chronic kidney failure: QUALIFIERS: Chronic kidney disease stage: stage 3 (moderate) Chronic kidney disease stage 3 subtype: stage 3b (GFR 30-44) PLAN: Plan Acute renal failure. Repeated episodes of SKY within the last 6 months hence baseline is difficult to establish. Lowest creatinine was around 1.2. Creatinine was almost 5 at the time of admission, it is actually better. Urine analysis looks fairly benign. No obstructive symptoms. Prior renal ultrasound without any hydronephrosis. Creatinine continues to improve. Vancomycin level was slightly elevated at 24, pharmacology is following. Dose held for today. Repeat levels for tomorrow. Acidosis. Bicarb levels have improved, today at 21. Will DC bicarbonate soluti on. Hyperkalemia initially, now hypokalemia. At home she was on Aldactone, potassium supplements. Now likely due to GI losses, potassium is low. continue the oral potassium. History of cirrhosis, s/p TIPS due to repeated ascites now complicated by hepatic cephalopathy. GI note reviewed.
[2022-11-26] MEDS: Potassium Chloride 10mEq/100mL 10 MEQ/100 ML IV.SOLN. 100 MEQ IV BOLUS ×4 (11:26→15:26)
[2022-11-26 11:50] LABS: Bedside Glucose 192 mg/dL (74-106)
[2022-11-26 17:10] LABS: Bedside Glucose 186 mg/dL (74-106)
[2022-11-26] MEDS: 0.9% Saline Lock 10 ML Syringe IV (18:07)
--- NOTE | 2022-11-26 18:58 | PN_ITS ---
Subjective Subjective Patient is more awake and alert today but still confused. She seems to be confabulating. She is tolerating a diet. Objective Data Objective Data Vital Signs: Vital Signs Temp Pulse Resp BP Pulse Ox O2 Del Method 98.1 F 74 16 148/43 H 98 Room Air 11/26/22 18:44 11/26/22 18:44 11/26/22 18:44 11/26/22 18:44 11/26/22 18:44 11/26/22 18:44 Oxygen Delivery Method Room Air Weight: 127 lb 13.89 oz Body Mass Index (BMI) 25.0 Intake & Output: Intake and Output for Last 24 Hours 11/24/22 11/25/22 11/26/22 23:59 23:59 23:59 Intake Total 3123.34 / 3123.34 3285 / 3285 3025 / 3025 Output Total 500 / 500 Balance 2623.34 / 2623.34 3285 / 3285 3025 / 3025 Medical Nutrition Assessment Dietitian: Malnutrition Criteria Met Start: 11/21/22 12:47 Freq: Status: Active Protocol: Document 11/24/22 15:28 RMA (Rec: 11/24/22 15:28 RMA [id number]) Nutrition Malnutrition Evidence of Malnutrition Exists Yes Malnutrition (severe): Chronic Evidenced By Suboptimal Energy Intake ( Severe),Weight Loss (Severe) Clinical Problem Chronic Disease or Condition Related Malnutrition Etiology Severe protein-calorie malnutrition in the context of chronic disease related to inadequate energy intake/ inadequate oral intake Signs/Symptoms as evidenced by po intake meeting <75% of est nutritional needs and unintentional wt loss 25.5% wt loss x 10 mo, 8.7% 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 Will continue 4 oz glucerna shake 4x/day w/ medpass for increased nutrition if consumed. May need to consider enteral nutrition support if PO remains poor/inadequate at meals and weight continues to decline. Lab / Micro Data Result Diagrams: 11/26/22 09:20 11/26/22 09:20 Labs: Laboratory Results - last 24 hr 11/25/22 20:20: POC Glucose 218 H 11/26/22 05:46: POC Glucose 183 H 11/26/22 09:20: Vancomycin Trough 24.5 H 11/26/22 09:20: Ammonia 95.0 H 11/26/22 09:20: WBC 8.9, RBC 2.48 L, Hgb 6.6 L, Hct 20.7 L, MCV 83.5, MCH 26.6 L , MCHC 31.9 L, RDW Std Deviation 48.6 H, RDW Coeff of Jordan 16.3 H, Plt Count 151, MPV 10.7, Immature Gran % (Auto) 0.600, Neut % (Auto) 56.5, Lymph % (Auto) 16.9 L, [place] % (Auto) 11.5 H, Eos % (Auto) 13.7 H, Baso % (Auto) 0.8, Absolute Neuts (auto) 5.1, Absolute Lymphs (auto) 1.51, Nucleated RBC % 0 11/26/22 09:20: Sodium 140, Potassium 3.2 L, Chloride 111 H, Carbon Dioxide 21.0, Anion Gap 8, BUN 38 H, Creatinine 2.64 H, Estim Creat Clear Calc 13.43, Es t GFR (MDRD) Af Amer 23 L, Est GFR (MDRD) Non-Af 19 L, BUN/Creatinine Ratio 14.4, Glucose 225 H, Calcium 8.5, Total Bilirubin 0.40, Direct Bilirubin 0.14, AST 13 L, ALT 17, Alkaline Phosphatase 65, Total Protein 5.0 L, Albumin 1.7 L, Globulin 3.3 11/26/22 11:10: POC Glucose 192 H 11/26/22 15:35: Blood Type A POSITIVE, Antibody Screen NEGATIVE, Crossmatch See Detail 11/26/22 16:46: POC Glucose 186 H Micro: Microbiology 11/20/22 15:35 Blood Culture (Wb) - Anticubital Left Blood Culture - Final No growth in 5 days. 11/22/22 10:17 Blood Culture (Wb) - Left Hand Blood Culture - Preliminary No growth in 48 hours. 11/22/22 10:17 Blood Culture (Wb) - Left Hand Blood Culture - Preliminary No growth in 48 hours. 11/20/22 15:45 Urine Catheter - Catheter Urine Culture - Final Culture exhibits no growth. 11/20/22 15:30 Blood Culture (Wb) - Anticubital Right Blood Culture - Final Streptococcus mitis Coag Negative Staph Rhythm Strip Rhythm Strip: Sinus Rhythm Rate: 80 Ectopy: None Physical Exam Narrative Alert awake no obvious distress no pallor no icterus no JVD s1s2 no murmurs lungs clear abdomen soft no organomegaly no edema no cyanosis Assessment & Plan Assessment/Plan (1) Cirrhosis: PLAN: Núñez cirrhosis not on transplant list. Her current MELD is 14 and she is a child Ortiz class C due to renal failure and hepatic encephalopathy. She is status post TIPS for refractory and recalcitrant ascites with acute kidney injury likely secondary to diuretics and diarrhea causing volume loss. Patient is noncompliant with medicines and is not on Xifaxan as an outpatient. Agree with lactulose 20 cc every 4 hours. (2) Acute hepatic encephalopathy: PLAN: She has a severe metabolic acidosis that is possibly secondary to GI b icarbonate loss. Her sodium bicarbonate is improving on a bicarb drip. Critically ill patients with cirrhosis have a high mortality rate and poor prognosis because of the high prevalence of metabolic acidosis. MELD-NA performs well on the short-term mortality assessment in critically ill patients with cirrhosis and metabolic acidosis. Her MELD sodium is lower because she has a TIPS procedure. It is currently calculated out at a 16. She is still a child Ortiz class C. GI bleeding either from portal gastropathy, gastric antral vascular ectasia or varices can lead to worsening encephalopathy. Therefore after her bicarbonate loss is improved she will need an upper endoscopy to make sure that her anemia is not contributing to her encephalopathy. Guarded prognosis. (3) Anemia: QUALIFIERS: Anemia type: iron deficiency Iron deficiency anemia type: unspecified iron deficiency Qualified Code(s): D50.9 - Iron deficiency anemia, unspecified PLAN: Recommend to evaluate upper GI tract for any signs of acute blood loss anemia. N.p.o. past midnight. Charges/Coding Visit Charges Inpatient E&M: 32867 [facility] Hosp L3
--- NOTE | 2022-11-26 20:30 | NURSING ---
call placed to patients asking if he had spoke to Friend about patients EGD today and if so to obtain consent. stated he had not talked to the but if anyone did it would be his daughter and he stated to this nurse to call daughter. This nurse called daughter and she did no answer. Voicemail left for daughter
[2022-11-26] MEDS: Latanoprost 0.005% 1 Bottle 1 DRP LEFT EYE (22:55)
[2022-11-26 23:10] LABS: Bedside Glucose 181 mg/dL (74-106)
[2022-11-27] VITALS (9 sets, daily range): BP systolic 108–189; BP diastolic 39–55; PULSE 68–86; RESP 16–18; TEMP 36.6–37.7; O2SAT 94–100
[2022-11-27] MEDS: Lactulose 20 GM/30 ML UDC PO ×4 (05:02→22:46)
--- NOTE | 2022-11-27 05:54 | NURSING ---
call placed to patients daughter to ask if she has talked to about patients EGD and if so to obtain consent. No answer from daughter so voicemail was left for pts daughter to call this nurse back at the hospital.
[2022-11-27 06:55] LABS: Bedside Glucose 142 mg/dL (74-106)
[2022-11-27 07:00] LABS: Vancomycin, Random Level 21.6 ug/mL (0.0-15.0)
[2022-11-27 07:12] LABS: Absolute Lymphocyte Count 1.67 X10^3/uL (0.83-4.51); Absolute Neutrophil Count 5.4 X10^3/uL (2.0-7.7); Basophil# 0.11 X10^3/uL; Basophil% 1.1 % (0-1); Eosinophil# 1.58 X10^3/uL; Eosinophils% 15.8 % (0-5); Hemoglobin 8.8 g/dL (12.0-15.0); Lymphocyte # 1.67 X10^3/ul (0.83-4.51); Lymphocyte % 16.7 % (19-41); Mean Corp Hgb Conc 32.6 g/dL (32-36); Mean Corpuscular Hgb 27.4 pg (27.0-32.0); Mean Corpuscular Volume 84.1 fL (81-99); Mean Platelet Vol. 9.7 fl (6.2-12.0); Monocyte# 1.13 X10^3/uL; Monocyte% 11.3 % (0-10); NRBC Flagged by Analyzer 0 % (0-5); Neutrophil # 5.44 X10^3/uL (2.7-7.7); Neutrophil % 54.4 % (47-70); Platelet Count 148 K/mm3 (150-450); RBC Distribution Width CV 16.6 % (11.6-14.6); RBC Distribution Width SD 49.1 fl (35.1-43.9); Red Blood Count 3.21 M/mm3 (4.2-5.4)
[2022-11-27 07:16] LABS: AST(SGOT) 20 U/L (15-37); Alanine Aminotransfer ALT/SGPT 23 U/L (13-56); Albumin, Serum 2.1 g/dL (3.2-5.0); Alkaline Phosphatase 83 U/L (45-117); Anion Gap 8 (5-15); BUN 38 mg/dL (7-18); Bilirubin, Direct 0.23 mg/dL (0.00-0.30); Calcium,Total 8.9 mg/dL (8.5-10.1); Chloride 115 mmol/L (98-107); Creatinine, Serum 2.71 mg/dL (0.55-1.02); EST Glomerular Filtration Rate 18 mL/min (>60); Est Glom Filt Rate - Afr Amer 22 mL/min (>60); Estimated Creatinine Clearance 13.08 ml/min; Globulin 3.7 g/dL (2.2-4.2); Glucose 155 mg/dL (74-106); Potassium 4.3 mmol/L (3.5-5.1); Protein, Total 5.8 g/dL (6.4-8.2); Sodium Level 140 mmol/L (136-145)
--- NOTE | 2022-11-27 07:32 | PCM.RX.CS ---
Consult Pharmacy has been consulted to manage selected antiobiotic: Vancomycin Type of Consult: Follow-up Prior Doses of Antibiotics Received/Current Regimen: Last dose 750mg iv on 23 @0901. Labs: Sodium 140 mmol/L (136-145) 11/27/22 06:00 Potassium 4.3 mmol/L (3.5-5.1) 11/27/22 06:00 Chloride 115 mmol/L (98-107) H 11/27/22 06:00 Carbon Dioxide 17.0 mmol/L (21.0-32.0) L 11/27/22 06:00 Anion Gap 8 (5-15) 11/27/22 06:00 BUN 38 mg/dL (7-18) H 11/27/22 06:00 Creatinine 2.71 mg/dL (0.55-1.02) H 11/27/22 06:00 Est GFR (MDRD) Af Amer 22 mL/min (>60) L 11/27/22 06:00 Est GFR (MDRD) Non-Af 18 mL/min (>60) L 11/27/22 06:00 BUN/Creatinine Ratio 14.0 RATIO (10-20) 11/27/22 06:00 Glucose 155 mg/dL (74-106) H 11/27/22 06:00 Vancomycin Trough 24.5 ug/mL (5.0-15.0) H 11/26/22 09:20 Random Vancomycin 21.6 ug/mL (0.0-15.0) H 11/27/22 06:00 Microbiology: Microbiology 11/20/22 15:35 Blood Culture (Wb) - Anticubital Left Blood Culture - Final No growth in 5 days. 11/22/22 10:17 Blood Culture (Wb) - Left Hand Blood Culture - Preliminary No growth in 48 hours. 11/22/22 10:17 Blood Culture (Wb) - Left Hand Blood Culture - Preliminary No growth in 48 hours. 11/20/22 15:45 Urine Catheter - Catheter Urine Culture - Final Culture exhibits no growth. 11/20/22 15:30 Blood Culture (Wb) - Anticubital Right Blood Culture - Final Streptococcus mitis Coag Negative Staph Weight used for dosin kg Estimated Creatinine Clearance: 13 ml/min Goal Trough: 15-20 mcg/mL Pharmacy Plan for Drug Dosing: Random levels being done daily due to level 24.5 on 11.26.22. Today's has decrease to 21.6, however still greater than desired of <20. Cr 2.71, slight increase from yesterday. Will continue to hold dosing and get another random level in AM. Pharmacy Service will continue to monitor and adjust dosing as required. Follow-Up Labs: Trough Vancomycin - random 11.28.22 @0600
[2022-11-27 08:01] LABS: International Normalized Ratio 1.3; Prothrombin Time (Protime)PT. 15.8 SECONDS (11.7-14.9)
[2022-11-27] MEDS: Iron Polysaccharide Complex 150 MG CAPSULE PO (08:54)
[2022-11-27] MEDS: Potassium Chloride Oral Tablet 20 MEQ PO ×2 (08:54→17:12)
[2022-11-27] MEDS: 0.9% Saline Lock 10 ML Syringe IV (10:04)
[2022-11-27] MEDS: Pantoprazole Sodium 40 MG Tablet PO (10:05)
[2022-11-27] MEDS: rifAXIMin 550 MG Tablet PO ×2 (10:05→22:44)
[2022-11-27] MEDS: Labetalol 100 MG Tablet 50 MG PO ×2 (10:05→22:45)
--- NOTE | 2022-11-27 10:29 | PCM.PN.HOSP ---
Reason for Visit Reason for Visit: Diagnoses Iron deficiency anemia, unspecified (11/20/22) Hyperkalemia (11/20/22) Unspecified cirrhosis of liver (11/20/22) Hepatic encephalopathy (11/20/22) Acute kidney failure, unspecified (11/20/22) Chronic kidney disease, unspecified (11/20/22) Subjective Subjective Patient hemoglobin up to 8.8 following transfusion with 1 unit PRBC. Patient scheduled to undergo endoscopic evaluation by GI Objective Data Objective Data Vital Signs: Vital Signs Temp Pulse Resp BP Pulse Ox O2 Del Method 99.2 F H 73 16 155/45 H 100 Room Air 11/27/22 04:45 11/27/22 04:45 11/27/22 04:45 11/27/22 04:45 11/27/22 04:45 11/27/22 05:24 Oxygen Delivery Method Room Air Weight: 58 kg Body Mass Index (BMI) 25.0 Intake & Output: Intake and Output for Last 24 Hours 11/25/22 11/26/22 11/27/22 23:59 23:59 23:59 Intake Total 3285 / 3285 3025 / 3025 Balance 3285 / 3285 3025 / 3025 Medical Nutrition Assessment Dietitian: Malnutrition Criteria Met Start: 11/21/22 12:47 Freq: Status: Active Protocol: Document 11/24/22 15:28 RMA (Rec: 11/24/22 15:28 RMA [id number]) Nutrition Malnutrition Evidence of Malnutrition Exists Yes Malnutrition (severe): Chronic Evidenced By Suboptimal Energy Intake ( Severe),Weight Loss (Severe) Clinical Problem Chronic Disease or Condition Related Malnutrition Etiology Severe protein-calorie malnutrition in the context of chronic disease related to inadequate energy intake/ inadequate oral intake Signs/Symptoms as evidenced by po intake meeting <75% of est nutritional needs and unintentional wt loss 25.5% wt loss x 10 mo, 8.7% wt loss x 6 mo, 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 Will continue 4 oz glucerna shake 4x/day w/ medpass for increased nutrition if consumed. May need to consider enteral nutrition support if PO remains poor/inadequate at meals and weight continues to decline. Lab / Micro Data Result Diagrams: 11/27/22 06:59 11/27/22 06:00 Labs: Laboratory Results - last 24 hr 11/26/22 11:10: POC Glucose 192 H 11/26/22 15:35: Blood Type A POSITIVE, Antibody Screen NEGATIVE, Crossmatch See Detail 11/26/22 16:46: POC Glucose 186 H 11/26/22 22:47: POC Glucose 181 H 11/27/22 05:06: POC Glucose 142 H 11/27/22 06:00: Ammonia 50.0 H 11/27/22 06:00: WBC Cancelled, Corrected WBC Cancelled, RBC Cancelled, Hgb Cancelled, Hct Cancelled, MCV Cancelled, MCH Cancelled, MCHC Cancelled, RDW Std Deviation Cancelled, RDW Coeff of Jordan Cancelled, Plt Count Cancelled, MPV Cancelled, Immature Gran % (Auto) Cancelled, Neut % (Auto) Cancelled, Lymph % (Auto) Cancelled, [place] % (Auto) Cancelled, Eos % (Auto) Cancelled, Baso % (Auto) Cancelled, Absolute Neuts (auto) Cancelled, Absolute Lymphs (auto) Cancelled, Total Counted Cancelled, Neutrophils % (Manual) Cancelled, Band Neutrophils % Cancelled, Lymphocytes % (Manual) Cancelled, Monocytes % (Manual) Cancelled, Eosinophils % (Manual) Cancelled, Basophils % (Manual) Cancelled, Metamyelocytes % Cancelled, Myelocytes % Cancelled, Promyelocytes % Cancelled, Blast Cells % Cancelled, Plasma Cell % (Manual) Cancelled, Other Cells % Cancelled, Nucleated RBC % Cancelled, Nucleated RBCs/100 WBC Cancelled, Differential Comment Cancelled, Diff Path Review Cancelled, Hypersegmented Neuts Cancelled, Atypical Lymphocytes Cancelled, Reactive Lymphocytes Cancelled, Smudge Cells Cancelled, Toxic Granulation Cancelled, Toxic Vacuolation Cancelled, Dohle Bodies Cancelled, Lavern Rods Cancelled, Platelet Estimate Cancelled, Plt Morphology Comment Cancelled, RBC Morphology Cancelled, Polychromasia Cancelled, Hypochromasia Cancelled, Poikilocytosis Cancelled, Basophilic Stippling Cancelled, Anisocytosis Cancelled, Microcytosis Cancelled, Macrocytosis Cancelled, Spherocytes Cancelled, Sickle Cells Cancelled, Target Cells Cancelled, Tear Drop Cells Cancelled, Ovalocytes Cancelled, Stomatocytes Cancelled, [place]if-[place] Bodies Cancelled, [place] Cells Cancelled, Bite Cells Cancelled, Crenated Cell Cancelled, Acanthocytes (Spur) Cancelled, Rouleaux Cancelled, Schistocytes Cancelled 11/27/22 06:00: Sodium 140, Potassium 4.3, Chloride 115 H, Carbon Dioxide 17.0 L, Anion Gap 8, BUN 38 H, Creatinine 2.71 H, Estim Creat Clear Calc 13.08, Est GFR (MDRD) Af Amer 22 L, Est GFR (MDRD) Non-Af 18 L, BUN/Creatinine Ratio 14.0, Glucose 155 H, Calcium 8.9, Total Bilirubin 0.70, Direct Bilirubin 0.23, AST 20, ALT 23, Alkaline Phosphatase 83, Total Protein 5.8 L, Albumin 2.1 L, Globulin 3.7 11/27/22 06:00: Random Vancomycin 21.6 H 11/27/22 06:00: PT Cancelled, INR Cancelled 11/27/22 06:59: WBC 10.0, RBC 3.21 L, Hgb 8.8 L, Hct 27.0 L, MCV 84.1, MCH 27.4, MCHC 32.6, RDW Std Deviation 49.1 H, RDW Coeff of Jordan 16.6 H, Plt Count 148 L, MPV 9.7, Immature Gran % (Auto) 0.700, Neut % (Auto) 54.4, Lymph % (Auto) 16.7 L, [place] % (Auto) 11.3 H, Eos % (Auto) 15.8 H, Baso % (Auto) 1.1 H, Absolute Neuts (auto) 5.4, Absolute Lymphs (auto) 1.67, Nucleated RBC % 0 11/27/22 06:59: PT 15.8 H, INR 1.3 Micro: Microbiology 11/20/22 15:35 Blood Culture (Wb) - Anticubital Left Blood Culture - Final No growth in 5 days. 11/22/22 10:17 Blood Culture (Wb) - Left Hand Blood Culture - Preliminary No growth in 48 hours. 11/22/22 10:17 Blood Culture (Wb) - Left Hand Blood Culture - Preliminary No growth in 48 hours. 11/20/22 15:45 Urine Catheter - Catheter Urine Culture - Final Culture exhibits no growth. 11/20/22 15:30 Blood Culture (Wb) - Anticubital Right Blood Culture - Final Streptococcus mitis Coag Negative Staph Rhythm Strip Rhythm Strip: Sinus Rhythm Rate: 80 Ectopy: None Physical Exam Narrative GENERAL: Somewhat lethargic HEENT: Atraumatic; normocephalic EYES; Anicteric, Normal Conjunctiva NECK; supple, normal thyroid, RESPIRATORY: Diminished to auscultation CARDIOVASCULAR:? Regular S1 S2, GI:? soft, normoactive bowel sounds, : No Renal angle tenderness; EXTREMITIES:? No edema, no clubbing, MUSCULOSKELETAL:? no muscle wasting NEURO:? Awake;? no lateralizing signs. SKIN:? No Rash PSYCH; Flat? affect Assessment & Plan Assessment/Plan (1) Acute hepatic encephalopathy: PLAN: Plan Patient is a 72-year-old lady with history of cirrhosis of the liver status post TIPS procedure presented to the emergency department with altered mental status and assessment of acute hepatic encephalopathy made patient admitted to a monitored bed for further management 1.? Acute metabolic encephalopathy ? Attributed to patient not being compliant with her lactulose as well as acute kidney injury.? This was resumed on admission patient response to therapy being monitored ? 11/27/2022; patient level of sensorium back to baseline 2.? Cirrhosis of the liver ? Status post TIPS procedure 3.? Anemia - Secondary to chronic disorder monitoring H&H and transfuse if patient becomes symptomatic or hemoglobin falls below? 7 ? 11/26/2022; with patient hemoglobin dropping to 6.6 an order was given for patient to be transfused 1 unit PRBC with repeat H&H ordered posttransfusion ? 11/27/2022; patient hemoglobin up to 8.8 following transfusion with 1 unit PRBCs scheduled to undergo EGD by Dr. Gaming 4.? Chronic kidney disease Has been gradual deterioration of patient creatinine starting in February 2022 when creatinine was 0.67..? On her admission was 5.79 rehydrated creatinine improved to 3.02.? Consult placed to nephrology 5.? Metabolic acidosis ? Secondary to patient impaired kidney function management will be deferred to nephrology 6.? GERD ? Past history 7.? Essential hypertension ? Discontinue with home medications clonidine and labetalol 8.? Dyslipidemia ? Patient is on statin therapy at home held 9.? Diabetes mellitus type 2 ? Managed with diet 10.? Essential hypertension ? Patient blood pressure stable patient is on ARB held in view of worsening kidney function 11.? COPD Aerosol treatments as needed 12. DVT prophylaxis ? On SC heparin 11.History of esophageal varices Patient underwent EGD on 02/11/2022 during her past admission which showed resolution of the varices.? She was however noted to have a single bleeding angioplastic lesion that was cauterized 12.? 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 Resolved.? Patient was apparently managed at [facility] by vascular surgery 13.? Diabetes mellitus type 2 ? Apparently managed with diet 14.? DVT prophylaxis ? Bilateral SCDs only avoided the use of chemoprophylaxis in view of patient low platelet counts 15. 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 Continue liberal regular/no added salt d/t signs and symptoms of malnutrition; Carbohydrate-Controlled/sodium-restricted diet if PO improves at meals. Will continue 4 oz glucerna shake 4x/day w/ medpass for increased nutrition if consumed.? 16. Hypokalemia ? Corrected per protocol repeat BMP ordered for follow-up. Time spent in the patient's overall evaluation,decision-making process, review of diagnostic data, adjustment of management, discussion with other providers, nursing nursing and ancillary staff involved in patient's care documentation, 55? Minutes Charges/Coding Visit Charges Inpatient E&M: 17638 [facility] Hosp L3
[2022-11-27 10:51] LABS: Bedside Glucose 136 mg/dL (74-106)
[2022-11-27] MEDS: Lactated Ringers 1,000 ML 15 ML IV (11:05)
--- NOTE | 2022-11-27 12:16 | OP.EGD_ITS ---
Patient Name: Sol Ann Procedure Date: 11/27/2022 11:46 AM Date of : 1950 Age: 72 Procedure: Upper GI endoscopy Indications: Iron deficiency anemia Providers: Saman Gaming DO Medicines: Monitored Anesthesia Care Patient Profile: This is a 72 year old female. Refer to note in patient chart for documentation of history and physical. Patient has symptoms of acute dyspepsia and acute nausea. Complications: No immediate complications. Procedure: Pre-Anesthesia Assessment: - Prior to the procedure, a History and Physical was performed, and patient medications and allergies were reviewed. The patient is competent. The risks and benefits of the procedure and the sedation options and risks were discussed with the patient. All questions were answered and informed consent was obtained. Patient identification and proposed procedure were verified by the physician in the pre-procedure area. Mental Status Examination: alert and oriented. Airway Examination: normal oropharyngeal airway and neck mobility. Respiratory Examination: clear to auscultation. CV Examination: normal. Prophylactic Antibiotics: The patient does not require prophylactic antibiotics. Prior Anticoagulants: The patient has taken no previous anticoagulant or antiplatelet agents. ASA Grade Assessment: II - A patient with mild systemic disease. After reviewing the risks and benefits, the patient was deemed in satisfactory condition to undergo the procedure. The anesthesia plan was to use monitored anesthesia care (MAC). Immediately prior to administration of medications, the patient was re-assessed for adequacy to receive sedatives. The heart rate, respiratory rate, oxygen saturations, blood pressure, adequacy of pulmonary ventilation, and response to care were monitored throughout the procedure. The physical status of the patient was re-assessed after the procedure. After obtaining informed consent, the endoscope was passed under direct vision. Throughout the procedure, the patient's blood pressure, pulse, and oxygen saturations were monitored continuously. The Endoscope was introduced through the mouth, and advanced to the second part of duodenum. The upper GI endoscopy was accomplished without difficulty. The patient tolerated the procedure well. Scope In: 12:07:13 PM Scope Out: 12:10:12 PM Total Procedure Duration Time 0 hours 2 minutes 59 seconds Findings: The examined esophagus was normal. Patchy moderate inflammation characterized by congestion (edema), erosions, erythema and friability was found in the gastric body. Biopsies were taken with a cold forceps for histology. Verification of patient identification for the specimen was done. Estimated blood loss was minimal. One oozing cratered gastric ulcer with a visible vessel was found on the greater curvature of the stomach. The lesion was 6 mm in largest dimension. Coagulation for hemostasis using heater probe was successful. Estimated blood loss was minimal. The first portion of the duodenum was normal. Impression: - Normal esophagus. - Gastritis. Biopsied. - Oozing gastric ulcer with a visible vessel. Treated with a heater probe. - Normal first portion of the duodenum. Recommendation: - [facility]. - Resume previous diet. - Continue present medications. Procedure Code(s): --- Professional --- 89524, 59, Esophagogastroduodenoscopy, flexible, transoral; with control of bleeding, any method 51266, Esophagogastroduodenoscopy, flexible, transoral; with biopsy, single or multiple CPT copyright 2017 [employer]. All rights reserved. The codes documented in this report are preliminary and upon him coder review may be revised to meet current compliance requirements. Saman Gaming DO 11/27/2022 12:16:30 PM This report has been signed electronically. Number of Addenda: 0 Note Initiated On: 11/27/2022 11:46 AM
--- NOTE | 2022-11-27 12:16 | OP.CCLET_ITS ---
11/27/2022 Josiah Smith [id number] [place] [address] Re : Upper GI endoscopy procedure for Sol Ann Dear Dr. Smith This procedure was performed on November. My impressions and recommendations are as follows: Impressions : - Normal esophagus. - Gastritis. Biopsied. - Oozing gastric ulcer with a visible vessel. Treated with a heater probe. - Normal first portion of the duodenum. Recommendations : - Return patient to [facility] for [facility] care. - Resume previous diet. - Continue present medications. My findings are described in the full procedure note, which is enclosed. If I can be of further assistance, please feel free to contact me at . Sincerely, Saman Gaming, 11/27/2022 12:16:30 PM This report has been signed electronically.
--- NOTE | 2022-11-27 14:25 | PCM.PN.REN ---
Subjective Subjective Status post endoscopy Objective Data Objective Data Vital Signs: Vital Signs Temp Pulse Resp BP Pulse Ox O2 Del Method 98.4 F 81 16 125/55 H 96 Room Air 11/27/22 12:30 11/27/22 12:30 11/27/22 12:30 11/27/22 12:30 11/27/22 12:30 11/27/22 12:30 Oxygen Delivery Method Room Air Weight: 58 kg Body Mass Index (BMI) 25.0 Intake & Output: Intake and Output for Last 24 Hours 11/25/22 11/26/22 11/27/22 23:59 23:59 23:59 Intake Total 3285 / 3285 3025 / 3025 Balance 3285 / 3285 3025 / 3025 Medical Nutrition Assessment Dietitian: Malnutrition Criteria Met Start: 11/21/22 12:47 Freq: Status: Active Protocol: Document 11/24/22 15:28 RMA (Rec: 11/24/22 15:28 RMA [id number]) Nutrition Malnutrition Evidence of Malnutrition Exists Yes Malnutrition (severe): Chronic Evidenced By Suboptimal Energy Intake ( Severe),Weight Loss (Severe) Clinical Problem Chronic Disease or Condition Related Malnutrition Etiology Severe protein-calorie malnutrition in the context of chronic disease related to inadequate energy intake/ inadequate oral intake Signs/Symptoms as evidenced by po intake meeting <75% of est nutritional needs and unintentional wt loss 25.5% wt loss x 10 mo, 8.7% wt loss x 6 mo, 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 Will continue 4 oz glucerna shake 4x/day w/ medpass for increased nutrition if consumed. May need to consider enteral nutrition support if PO remains poor/inadequate at meals and weight continues to decline. Lab / Micro Data Result Diagrams: 11/27/22 06:59 11/27/22 06:00 Labs: Laboratory Results - last 24 hr 11/26/22 15:35: Blood Type A POSITIVE, Antibody Screen NEGATIVE, Crossmatch See Detail 11/26/22 16:46: POC Glucose 186 H 11/26/22 22:47: POC Glucose 181 H 11/27/22 05:06: POC Glucose 142 H 11/27/22 06:00: Ammonia 50.0 H 11/27/22 06:00: WBC Cancelled, Corrected WBC Cancelled, RBC Cancelled, Hgb Cancelled, Hct Cancelled, MCV Cancelled, MCH Cancelled, MCHC Cancelled, RDW Std Deviation Cancelled, RDW Coeff of [place] Cancelled, Plt Count Cancelled, MPV Cancelled, Immature Gran % (Auto) Cancelled, Neut % (Auto) Cancelled, Lymph % (Auto) Cancelled, [place] % (Auto) Cancelled, Eos % (Auto) Cancelled, Baso % (Auto) Cancelled, Absolute Neuts (auto) Cancelled, Absolute Lymphs (auto) Cancelled, Total Counted Cancelled, Neutrophils % (Manual) Cancelled, Band Neutrophils % Cancelled, Lymphocytes % (Manual) Cancelled, Monocytes % (Manual) Cancelled, Eosinophils % (Manual) Cancelled, Basophils % (Manual) Cancelled, Metamyelocytes % Cancelled, Myelocytes % Cancelled, Promyelocytes % Cancelled, Blast Cells % Cancelled, Plasma Cell % (Manual) Cancelled, Other Cells % Cancelled, Nucleated RBC % Cancelled, Nucleated RBCs/100 WBC Cancelled, Differential Comment Cancelled, Diff Path Review Cancelled, Hypersegmented Neuts Cancelled, Atypical Lymphocytes Cancelled, Reactive Lymphocytes Cancelled, Smudge Cells Cancelled, Toxic Granulation Cancelled, Toxic Vacuolation Cancelled, Dohle Bodies Cancelled, Lavern Rods Cancelled, Platelet Estimate Cancelled, Plt Morphology Comment Cancelled, RBC Morphology Cancelled, Polychromasia Cancelled, Hypochromasia Cancelled, Poikilocytosis Cancelled, Basophilic Stippling Cancelled, Anisocytosis Cancelled, Microcytosis Cancelled, Macrocytosis Cancelled, Spherocytes Cancelled, Sickle Cells Cancelled, Target Cells Cancelled, Tear Drop Cells Cancelled, Ovalocytes Cancelled, Stomatocytes Cancelled, [place] Bodies Cancelled, Sulphur Cells Cancelled, Bite Cells Cancelled, Crenated Cell Cancelled, Acanthocytes (Spur) Cancelled, Rouleaux Cancelled, Schistocytes Cancelled 11/27/22 06:00: Sodium 140, Potassium 4.3, Chloride 115 H, Carbon Dioxide 17.0 L, Anion Gap 8, BUN 38 H, Creatinine 2.71 H, Estim Creat Clear Calc 13.08, Est GFR (MDRD) Af Amer 22 L, Est GFR (MDRD) Non-Af 18 L, BUN/Creatinine Ratio 14.0, Glucose 155 H, Calcium 8.9, Total Bilirubin 0.70, Direct Bilirubin 0.23, AST 20, ALT 23, Alkaline Phosphatase 83, Total Protein 5.8 L, Albumin 2.1 L, Globulin 3.7 11/27/22 06:00: Random Vancomycin 21.6 H 11/27/22 06:00: PT Cancelled, INR Cancelled 11/27/22 06:59: WBC 10.0, RBC 3.21 L, Hgb 8.8 L, Hct 27.0 L, MCV 84.1, MCH 27.4, MCHC 32.6, RDW Std Deviation 49.1 H, RDW Coeff of Jordan 16.6 H, Plt Count 148 L, MPV 9.7, Immature Gran % (Auto) 0.700, Neut % (Auto) 54.4, Lymph % (Auto) 16.7 L, [place] % (Auto) 11.3 H, Eos % (Auto) 15.8 H, Baso % (Auto) 1.1 H, Absolute Neuts (auto) 5.4, Absolute Lymphs (auto) 1.67, Nucleated RBC % 0 11/27/22 06:59: PT 15.8 H, INR 1.3 11/27/22 10:14: POC Glucose 136 H Micro: Microbiology 11/22/22 10:17 Blood Culture (Wb) - Left Hand Blood Culture - Final No growth in 5 days. 11/22/22 10:17 Blood Culture (Wb) - Left Hand Blood Culture - Final No growth in 5 days. 11/20/22 15:35 Blood Culture (Wb) - Anticubital Left Blood Culture - Final No growth in 5 days. 11/20/22 15:45 Urine Catheter - Catheter Urine Culture - Final Culture exhibits no growth. 11/20/22 15:30 Blood Culture (Wb) - Anticubital Right Blood Culture - Final Streptococcus mitis Coag Negative Staph Rhythm Strip Rhythm Strip: Sinus Rhythm Rate: 80 Ectopy: None Physical Exam Narrative Alert awake no obvious distress no pallor no icterus no JVD s1s2 no murmurs lungs clear abdomen soft no organomegaly no edema no cyanosis Assessment & Plan Assessment/Plan (1) Acute on chronic kidney failure: QUALIFIERS: Chronic kidney disease stage: stage 3 (moderate) Chronic kidney disease stage 3 subtype: stage 3b (GFR 30-44) PLAN: Plan Acute renal failure. Repeated episodes of SKY within the last 6 months hence baseline is difficult to establish. Lowest creatinine was around 1.2. Creatinine was almost 5 at the time of admission, it is actually better. Urine analysis looks fairly benign. No obstructive symptoms. Prior renal ultrasound without any hydronephrosis. Creatinine stable for the last 3 days. Vancomycin level was slightly elevated at 24, pharmacology is following. Acidosis. Bicarbonate values have dropped again. Will add oral bicarbonate for now. Hyperkalemia initially, now hypokalemia. At home she was on Aldactone, potassium supplements. Now likely due to GI losses, potassium is low. continue the oral potassium. Potassium levels normalized History of cirrhosis, s/p TIPS due to repeated ascites now complicated by hepatic cephalopathy. GI note following. She is not on the transplant list.
[2022-11-27] MEDS: Glucerna Shake 120 ML LIQUID PO ×3 (15:00→22:43)
[2022-11-27] MEDS: Sodium Bicarbonate 650 MG Tablet 1300 MG PO ×2 (16:00→22:44)
[2022-11-27] MEDS: Insulin Lispro 100 UNIT/ML INSULN.PEN SC (17:00)
[2022-11-27 17:31] LABS: Bedside Glucose 157 mg/dL (74-106)
[2022-11-27] MEDS: Latanoprost 0.005% 1 Bottle 1 DRP LEFT EYE (22:45)
[2022-11-27 23:15] LABS: Bedside Glucose 209 mg/dL (74-106)
[2022-11-28] VITALS (9 sets, daily range): BP systolic 150–196; BP diastolic 43–54; PULSE 55–89; RESP 16–18; TEMP 36.7–36.9; O2SAT 94–100
[2022-11-28 06:26] LABS: Absolute Lymphocyte Count 1.55 X10^3/uL (0.83-4.51); Absolute Neutrophil Count 5.1 X10^3/uL (2.0-7.7); Basophil# 0.07 X10^3/uL; Basophil% 0.8 % (0-1); Eosinophils% 14.5 % (0-5); Hematocrit 25.2 % (37-47); Hemoglobin 7.9 g/dL (12.0-15.0); Lymphocyte # 1.55 X10^3/ul (0.83-4.51); Lymphocyte % 17.3 % (19-41); Mean Corp Hgb Conc 31.3 g/dL (32-36); Mean Corpuscular Hgb 27.2 pg (27.0-32.0); Mean Corpuscular Volume 86.9 fL (81-99); Mean Platelet Vol. 9.7 fl (6.2-12.0); Monocyte# 0.87 X10^3/uL; Monocyte% 9.7 % (0-10); NRBC Flagged by Analyzer 0 % (0-5); Neutrophil % 57.1 % (47-70); Platelet Count 131 K/mm3 (150-450); RBC Distribution Width SD 51.4 fl (35.1-43.9); White Blood Count 8.9 K/mm3 (4.4-11.0)
[2022-11-28] MEDS: Insulin Lispro 100 UNIT/ML INSULN.PEN SC ×3 (06:49→15:39)
[2022-11-28] MEDS: Sodium Bicarbonate 650 MG Tablet 1300 MG PO ×3 (06:49→22:56)
[2022-11-28] MEDS: Lactulose 20 GM/30 ML UDC PO ×5 (06:49→22:56)
[2022-11-28 06:59] LABS: Anion Gap 8 (5-15); BUN 37 mg/dL (7-18); BUN/Creat Ratio 15.8 RATIO (10-20); Calcium,Total 8.9 mg/dL (8.5-10.1); Chloride 116 mmol/L (98-107); Creatinine, Serum 2.34 mg/dL (0.55-1.02); EST Glomerular Filtration Rate 22 mL/min (>60); Est Glom Filt Rate - Afr Amer 26 mL/min (>60); Estimated Creatinine Clearance 15.15 ml/min; Glucose 149 mg/dL (74-106); Potassium 3.8 mmol/L (3.5-5.1); Sodium Level 141 mmol/L (136-145)
[2022-11-28 07:04] LABS: Vancomycin, Random Level 17.7 ug/mL (0.0-15.0)
[2022-11-28 07:10] LABS: Bedside Glucose 164 mg/dL (74-106)
[2022-11-28] MEDS: Iron Polysaccharide Complex 150 MG CAPSULE PO (07:37)
[2022-11-28] MEDS: Potassium Chloride Oral Tablet 20 MEQ PO ×2 (07:37→16:25)
--- NOTE | 2022-11-28 07:57 | PCM.PN.HOSP ---
Reason for Visit Reason for Visit: Diagnoses Iron deficiency anemia, unspecified (11/20/22) Hyperkalemia (11/20/22) Unspecified cirrhosis of liver (11/20/22) Hepatic encephalopathy (11/20/22) Acute kidney failure, unspecified (11/20/22) Chronic kidney disease, unspecified (11/20/22) Subjective Subjective Patient seen appears to be back to her baseline. Hemoglobin up to 7.9. EGD results are as below. Plan is to discuss with family regarding disposition Objective Data Objective Data Vital Signs: Vital Signs Temp Pulse Resp BP Pulse Ox O2 Del Method 98.1 F 89 16 150/47 H 98 Room Air 11/28/22 03:33 11/28/22 03:33 11/28/22 03:33 11/28/22 03:33 11/28/22 03:33 11/28/22 03:33 Oxygen Delivery Method Room Air Weight: 58 kg Body Mass Index (BMI) 25.0 Intake & Output: Intake and Output for Last 24 Hours 11/26/22 11/27/22 11/28/22 23:59 23:59 23:59 Intake Total 3025 / 3025 1080 / 1320 360 / 360 Balance 3025 / 3025 1080 / 1320 360 / 360 Medical Nutrition Assessment Dietitian: Malnutrition Criteria Met Start: 11/21/22 12:47 Freq: Status: Active Protocol: Document 11/24/22 15:28 RMA (Rec: 11/24/22 15:28 RMA [id number]) Nutrition Malnutrition Evidence of Malnutrition Exists Yes Malnutrition (severe): Chronic Evidenced By Suboptimal Energy Intake ( Severe),Weight Loss (Severe) Clinical Problem Chronic Disease or Condition Related Malnutrition Etiology Severe protein-calorie malnutrition in the context of chronic disease related to inadequate energy intake/ inadequate oral intake Signs/Symptoms as evidenced by po intake meeting <75% of est nutritional needs and unintentional wt loss 25.5% wt loss x 10 mo, 8.7% wt loss x 6 mo, 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 Will continue 4 oz glucerna shake 4x/day w/ medpass for increased nutrition if consumed. May need to consider enteral nutrition support if PO remains poor/inadequate at meals and weight continues to decline. Lab / Micro Data Result Diagrams: 11/28/22 06:15 11/28/22 06:15 Labs: Laboratory Results - last 24 hr 11/27/22 06:59: PT 15.8 H, INR 1.3 11/27/22 10:14: POC Glucose 136 H 11/27/22 17:09: POC Glucose 157 H 11/27/22 22:41: POC Glucose 209 H 11/28/22 06:15: Random Vancomycin 17.7 H 11/28/22 06:15: WBC 8.9, RBC 2.90 L, Hgb 7.9 L, Hct 25.2 L, MCV 86.9, MCH 27.2, MCHC 31.3 L, RDW Std Deviation 51.4 H, RDW Coeff of [place] 17.0 H, Plt Count 131 L, MPV 9.7, Immature Gran % (Auto) 0.600, Neut % (Auto) 57.1, Lymph % (Auto) 17.3 L, [place] % (Auto) 9.7, Eos % (Auto) 14.5 H, Baso % (Auto) 0.8, Absolute Neuts (auto) 5.1, Absolute Lymphs (auto) 1.55, Nucleated RBC % 0 11/28/22 06:15: Sodium 141, Potassium 3.8, Chloride 116 H, Carbon Dioxide 17.0 L, Anion Gap 8, BUN 37 H, Creatinine 2.34 H, Estim Creat Clear Calc 15.15, Est GFR (MDRD) Af Amer 26 L, Est GFR (MDRD) Non-Af 22 L, BUN/Creatinine Ratio 15.8, Glucose 149 H, Calcium 8.9 11/28/22 06:47: POC Glucose 164 H Micro: Microbiology 11/22/22 10:17 Blood Culture (Wb) - Left Hand Blood Culture - Final No growth in 5 days. 11/22/22 10:17 Blood Culture (Wb) - Left Hand Blood Culture - Final No growth in 5 days. 11/20/22 15:35 Blood Culture (Wb) - Anticubital Left Blood Culture - Final No growth in 5 days. 11/20/22 15:45 Urine Catheter - Catheter Urine Culture - Final Culture exhibits no growth. 11/20/22 15:30 Blood Culture (Wb) - Anticubital Right Blood Culture - Final Streptococcus mitis Coag Negative Staph Rhythm Strip Rhythm Strip: Sinus Rhythm Rate: 80 Ectopy: None Physical Exam Narrative GENERAL: Somewhat lethargic HEENT: Atraumatic; normocephalic EYES; Anicteric, Normal Conjunctiva NECK; supple, normal thyroid, RESPIRATORY: Diminished to auscultation CARDIOVASCULAR:? Regular S1 S2, GI:? soft, normoactive bowel sounds, : No Renal angle tenderness; EXTREMITIES:? No edema, no clubbing, MUSCULOSKELETAL:? no muscle wasting NEURO:? Awake;? no lateralizing signs. SKIN:? No Rash PSYCH; Flat? affect Assessment & Plan Assessment/Plan (1) Acute hepatic encephalopathy: PLAN: Plan Patient is a 72-year-old lady with history of cirrhosis of the liver status post TIPS procedure presented to the emergency department with altered mental status and assessment of acute hepatic encephalopathy made patient admitted to a monitored bed for further management 1.? Acute metabolic encephalopathy ? Attributed to patient not being compliant with her lactulose as well as acute kidney injury.? This was resumed on admission patient response to therapy being monitored ? 11/27/2022; patient level of sensorium back to baseline 2.? Cirrhosis of the liver ? Status post TIPS procedure 3.? Anemia - Secondary to chronic disorder monitoring H&H and transfuse if patient becomes symptomatic or hemoglobin falls below? 7 ? 11/26/2022; with patient hemoglobin dropping to 6.6 an order was given for patient to be transfused 1 unit PRBC with repeat H&H ordered posttransfusion ? 11/27/2022; patient hemoglobin up to 8.8 following transfusion with 1 unit PRBCs scheduled to undergo EGD by Dr. Gaming Impressions : - Normal esophagus. - Gastritis.? Biopsied. - Oozing gastric ulcer with a visible vessel.? Treated with a heater probe. - Normal first portion of the duodenum. Recommendations : - [facility]. - Resume previous diet. - Continue present medications. 4.? Chronic kidney disease Has been gradual deterioration of patient creatinine starting in February 2022 when creatinine was 0.67..? On her admission was 5.79 rehydrated creatinine improved to 3.02.? Consult placed to nephrology 5.? Metabolic acidosis ? Secondary to patient impaired kidney function management will be deferred to nephrology 6.? GERD ? Past history 7.? Essential hypertension ? Discontinue with home medications clonidine and labetalol 8.? Dyslipidemia ? Patient is on statin therapy at home held 9.? Diabetes mellitus type 2 ? Managed with diet 10.? Essential hypertension ? Patient blood pressure stable patient is on ARB held in view of worsening kidney function 11.? COPD Aerosol treatments as needed 12. DVT prophylaxis ? On SC heparin 11.History of esophageal varices Patient underwent EGD on 02/11/2022 during her past admission which showed resolution of the varices.? She was however noted to have a single bleeding angioplastic lesion that was cauterized 12.? 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 Resolved.? Patient was apparently managed at [facility] by vascular surgery 13.? Diabetes mellitus type 2 ? Apparently managed with diet 14.? DVT prophylaxis ? Bilateral SCDs only avoided the use of chemoprophylaxis in view of patient low platelet counts 15. 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 Continue liberal regular/no added salt d/t signs and symptoms of malnutrition; Carbohydrate-Controlled/sodium-restricted diet if PO improves at meals. Will continue 4 oz glucerna shake 4x/day w/ medpass for increased nutrition if consumed.? 16. Hypokalemia ? Corrected per protocol repeat BMP ordered for follow-up. Time spent in the patient's overall evaluation,decision-making process, review of diagnostic data, adjustment of management, discussion with other providers, nursing nursing and ancillary staff involved in patient's care documentation, 36? Minutes Charges/Coding Visit Charges Inpatient E&M: 30593 Subs Hosp L2
[2022-11-28] MEDS: Pantoprazole Sodium 40 MG Tablet PO (09:34)
[2022-11-28] MEDS: rifAXIMin 550 MG Tablet PO ×2 (09:34→22:56)
[2022-11-28] MEDS: Labetalol 100 MG Tablet 50 MG PO ×2 (09:34→22:56)
[2022-11-28] MEDS: Glucerna Shake 120 ML LIQUID PO ×2 (09:35→13:35)
--- NOTE | 2022-11-28 10:50 | CASEMGMT ---
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 Patient required min assist of 2 and ambulated 3 ft to the chair. Therapy recommending SNF at discharge. LISA CM in to discuss discharge planning with patient. RN LOLY reviewed progress with therapy with patient, patient in denial that she was requiring assistance of 2 people. RN CM discussed recommendations of SNF at discharge for additional rehab. Patient is resistant to SNF at discharge. RN CM discussed support at home and it is just her and her at home. RN CM asked patient if she is requiring 2 people to assist her to the chair who else could help, she stated they would call the neighbor. RN CM asked if this RN CM could call patient's , Franklin, regarding his concerns at discharge. Patient gave permission. RN CM called Franklin and discussed progress with therapy. states he is concerned as well if she is requiring 2 people for assistance with transfers and ambulation. Franklin requested this RN CM to call daughter Mile to discuss discharge planning. states he will call his son Franklin, who is also concerned about patient's plans. states he can come in this afternoon and will have son join him. RN CM called daughterMile, no answer and voice message left with return contact information. RN CM updated SW regarding conversations. CM will continue to follow this patient and plan for a safe discharge.
[2022-11-28 11:41] LABS: Bedside Glucose 171 mg/dL (74-106)
--- NOTE | 2022-11-28 13:15 | CASEMGMT ---
RN CM in to discuss discharge planning with patient, , and son. RN CM review progress with therapy with them. and son agreeable for short term rehab at SNF. and son voiced concerns to patient and she was agreeable to short term placement. A list of SNF providers including quality and resource use data and consistent with the patient?s preferred geographical region, medical needs, and insurance network were provided from the [facility]. Patient, , and son to review list and provide top preferences. SW updated. CM will continue to follow this patient and plan for a safe discharge.
--- NOTE | 2022-11-28 14:30 | CASEMGMT ---
LISA SALCIDO returned to patient's room to review SNF preferences. Patient sleeping, family at bedside. Per family preferences are: [facility]. [facility], [facility]. [facility], [facility]. [facility], 4. [facility], 5. [facility]. LISA SALCIDO updated SW regarding preferences.
--- NOTE | 2022-11-28 15:06 | PN.RENAL_ITS ---
Subjective Subjective No new complaints. She is more alert today. Objective Data Objective Data Vital Signs: Vital Signs Temp Pulse Resp BP Pulse Ox O2 Del Method 98.2 F 70 16 196/51 H 94 Room Air 11/28/22 15:02 11/28/22 15:02 11/28/22 15:02 11/28/22 15:02 11/28/22 15:02 11/28/22 15:02 Oxygen Delivery Method Room Air Weight: 58 kg Body Mass Index (BMI) 25.0 Intake & Output: Intake and Output for Last 24 Hours 11/26/22 11/27/22 11/28/22 23:59 23:59 23:59 Intake Total 3025 / 3025 1080 / 1320 660 / 660 Balance 3025 / 3025 1080 / 1320 660 / 660 Medical Nutrition Assessment Dietitian: Malnutrition Criteria Met Start: 11/21/22 12:47 Freq: Status: Active Protocol: Document 11/24/22 15:28 RMA (Rec: 11/24/22 15:28 RMA [id number]) Nutrition Malnutrition Evidence of Malnutrition Exists Yes Malnutrition (severe): Chronic Evidenced By Suboptimal Energy Intake ( Severe),Weight Loss (Severe) Clinical Problem Chronic Disease or Condition Related Malnutrition Etiology Severe protein-calorie malnutrition in the context of chronic disease related to inadequate energy intake/ inadequate oral intake Signs/Symptoms as evidenced by po intake meeting <75% of est nutritional needs and unintentional wt loss 25.5% wt loss x 10 mo, 8.7% wt loss x 6 mo, 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 Will continue 4 oz glucerna shake 4x/day w/ medpass for increased nutrition if consumed. May need to consider enteral nutrition support if PO remains poor/inadequate at meals and weight continues to decline. Lab / Micro Data Result Diagrams: 11/28/22 06:15 11/28/22 06:15 Labs: Laboratory Results - last 24 hr 11/27/22 17:09: POC Glucose 157 H 11/27/22 22:41: POC Glucose 209 H 11/28/22 06:15: Random Vancomycin 17.7 H 11/28/22 06:15: WBC 8.9, RBC 2.90 L, Hgb 7.9 L, Hct 25.2 L, MCV 86.9, MCH 27.2, MCHC 31.3 L, RDW Std Deviation 51.4 H, RDW Coeff of [place] 17.0 H, Plt Count 131 L, MPV 9.7, Immature Gran % (Auto) 0.600, Neut % (Auto) 57.1, Lymph % (Auto) 17.3 L , [place] % (Auto) 9.7, Eos % (Auto) 14.5 H, Baso % (Auto) 0.8, Absolute Neuts (auto) 5.1, Absolute Lymphs (auto) 1.55, Nucleated RBC % 0 11/28/22 06:15: Sodium 141, Potassium 3.8, Chloride 116 H, Carbon Dioxide 17.0 L , Anion Gap 8, BUN 37 H, Creatinine 2.34 H, Estim Creat Clear Calc 15.15, Est GFR (MDRD) Af Amer 26 L, Est GFR (MDRD) Non-Af 22 L, BUN/Creatinine Ratio 15.8, Glucose 149 H, Calcium 8.9 11/28/22 06:47: POC Glucose 164 H 11/28/22 11:00: POC Glucose 171 H Micro: Microbiology 11/22/22 10:17 Blood Culture (Wb) - Left Hand Blood Culture - Final No growth in 5 days. 11/22/22 10:17 Blood Culture (Wb) - Left Hand Blood Culture - Final No growth in 5 days. 11/20/22 15:35 Blood Culture (Wb) - Anticubital Left Blood Culture - Final No growth in 5 days. 11/20/22 15:45 Urine Catheter - Catheter Urine Culture - Final Culture exhibits no growth. 11/20/22 15:30 Blood Culture (Wb) - Anticubital Right Blood Culture - Final Streptococcus mitis Coag Negative Staph Rhythm Strip Rhythm Strip: Sinus Rhythm Rate: 80 Ectopy: None Physical Exam Narrative Alert awake no obvious distress no pallor no icterus no JVD s1s2 no murmurs lungs clear abdomen soft no organomegaly no edema no cyanosis Assessment & Plan Assessment/Plan (1) Acute on chronic kidney failure: QUALIFIERS: Chronic kidney disease stage: stage 3 (moderate) Chronic kidney disease stage 3 subtype: stage 3b (GFR 30-44) PLAN: Plan Acute renal failure. Repeated episodes of SKY within the last 6 months hence baseline is difficult to establish. Lowest creatinine was around 1.2. Creatinine was almost 5 at the time of admission, it is actually better. Urine analysis looks fairly benign. No obstructive symptoms. Prior renal ultrasound without any hydronephrosis. Creatinine stable for the last 3 days. Vancomycin level was slightly elevated at 24. Creatinine better today. Acidosis. Continue oral bicarbonate Hyperkalemia initially, now hypokalemia. At home she was on Aldactone, potassium supplements. Now likely due to GI losses, potassium is low. continue the oral potassium. Potassium levels normalized History of cirrhosis, s/p TIPS due to repeated ascites now complicated by hepatic cephalopathy. GI note following. She is not on the transplant list. I would not send her home on spironolactone due to repeated SKY episodes
--- NOTE | 2022-11-28 15:10 | CASEMGMT ---
RN LOLY provided SW with a list of family's choices for nursing homes. SW sent a referral to [facility] as this is the first choice. Await response. Lety Velez FINISHING POWDER PRESS OPERATOR ETIENNE
--- NOTE | 2022-11-28 15:21 | CHAPLAIN ---
Type of Pastoral Visit _x__ Initial Visit ___ Follow-up Visit ___ On-call Visit ___ General Patient Visit ___ Spiritual Assessment ___ Family Conference ___ Bereavement ___ Rapid Response ___ Code Blue ___ Other (describe below) Pastoral Care Referral From ___ Patient _x__ Family ___ Nurse ___ Physician ___ Applications Coordinator ___ Tax Attorney _x__ Other (describe below) Sacrament/Intervention _x__ Active listening ___ Anointing ___ Restorationism ___ Bereavement ___ Communion ___ Deepa exploration ___ ___ Life review _x__ Prayer ___ Reconciliation ___ Sacrament of Sick _x__ Supportive presence ___ Wedding ___ Other (describe below) Pastoral Comments patient is awake but lethargic; pt welcomes visit but does not engage much in conversation other than answering questions; 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
[2022-11-28] MEDS: Ondansetron 4 MG/2 ML Vial IV (15:43)
[2022-11-28] MEDS: 0.9% Saline Lock 10 ML Syringe IV ×2 (15:43→23:03)
[2022-11-28 16:00] LABS: Bedside Glucose 164 mg/dL (74-106)
--- NOTE | 2022-11-28 17:26 | PN_ITS ---
Subjective Subjective Patient underwent an EGD yesterday and was discovered to have bleeding ulcer that was treated endoscopically. She is awake and oriented x2 at this time Objective Data Objective Data Vital Signs: Vital Signs Temp Pulse Resp BP Pulse Ox O2 Del Method 98.2 F 75 16 180/54 H 94 Room Air 11/28/22 15:02 11/28/22 16:22 11/28/22 15:02 11/28/22 16:22 11/28/22 15:02 11/28/22 15:02 Oxygen Delivery Method Room Air Weight: 127 lb 13.89 oz Body Mass Index (BMI) 25.0 Intake & Output: Intake and Output for Last 24 Hours 11/26/22 11/27/22 11/28/22 23:59 23:59 23:59 Intake Total 3025 / 3025 1080 / 1320 1090.75 / 1090.75 Balance 302 / 3025 1080 / 1320 1090.75 / 1090.75 Medical Nutrition Assessment Dietitian: Malnutrition Criteria Met Start: 11/21/22 12:47 Freq: Status: Active Protocol: Document 11/24/22 15:28 RMA (Rec: 11/24/22 15:28 RMA [id number]) Nutrition Malnutrition Evidence of Malnutrition Exists Yes Malnutrition (severe): Chronic Evidenced By Suboptimal Energy Intake ( Severe),Weight Loss (Severe) Clinical Problem Chronic Disease or Condition Related Malnutrition Etiology Severe protein-calorie malnutrition in the context of chronic disease related to inadequate energy intake/ inadequate oral intake Signs/Symptoms as evidenced by po intake meeting <75% of est nutritional needs and unintentional wt loss 25.5% wt loss x 10 mo, 8.7% wt loss x 6 mo, 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 Will continue 4 oz glucerna shake 4x/day w/ medpass for increased nutrition if consumed. May need to consider enteral nutrition support if PO remains poor/inadequate at meals and weight continues to decline. Lab / Micro Data Result Diagrams: 11/28/22 06:15 11/28/22 06:15 Labs: Laboratory Results - last 24 hr 11/27/22 17:09: POC Glucose 157 H 11/27/22 22:41: POC Glucose 209 H 11/28/22 06:15: Random Vancomycin 17.7 H 11/28/22 06:15: WBC 8.9, RBC 2.90 L, Hgb 7.9 L, Hct 25.2 L, MCV 86.9, MCH 27.2, MCHC 31.3 L, RDW Std Deviation 51.4 H, RDW Coeff of [place] 17.0 H, Plt Count 131 L, MPV 9.7, Immature Gran % (Auto) 0.600, Neut % (Auto) 57.1, Lymph % (Auto) 17.3 L , [place] % (Auto) 9.7, Eos % (Auto) 14.5 H, Baso % (Auto) 0.8, Absolute Neuts (auto) 5.1, Absolute Lymphs (auto) 1.55, Nucleated RBC % 0 11/28/22 06:15: Sodium 141, Potassium 3.8, Chloride 116 H, Carbon Dioxide 17.0 L , Anion Gap 8, BUN 37 H, Creatinine 2.34 H, Estim Creat Clear Calc 15.15, Est GFR (MDRD) Af Amer 26 L, Est GFR (MDRD) Non-Af 22 L, BUN/Creatinine Ratio 15.8, Glucose 149 H, Calcium 8.9 11/28/22 06:47: POC Glucose 164 H 11/28/22 11:00: POC Glucose 171 H 11/28/22 15:38: POC Glucose 164 H Micro: Microbiology 11/22/22 10:17 Blood Culture (Wb) - Left Hand Blood Culture - Final No growth in 5 days. 11/22/22 10:17 Blood Culture (Wb) - Left Hand Blood Culture - Final No growth in 5 days. 11/20/22 15:35 Blood Culture (Wb) - Anticubital Left Blood Culture - Final No growth in 5 days. 11/20/22 15:45 Urine Catheter - Catheter Urine Culture - Final Culture exhibits no growth. 11/20/22 15:30 Blood Culture (Wb) - Anticubital Right Blood Culture - Final Streptococcus mitis Coag Negative Staph Rhythm Strip Rhythm Strip: Sinus Rhythm Rate: 80 Ectopy: None Physical Exam Narrative Alert awake no obvious distress no pallor no icterus no JVD s1s2 no murmurs lungs clear abdomen soft no organomegaly no edema no cyanosis Assessment & Plan Assessment/Plan (1) Cirrhosis: PLAN: Núñez cirrhosis not on transplant list. Her current MELD is 14 and she is a child Ortiz class C due to renal failure and hepatic encephalopathy. She is status post TIPS for refractory and recalcitrant ascites with acute kidney injury likely secondary to diuretics and diarrhea causing volume loss. Patient is noncompliant with medicines and is not on Xifaxan as an outpatient. Agree with lactulose 20 cc every 4 hours. (2) Acute hepatic encephalopathy: PLAN: She has a severe metabolic acidosis that is possibly secondary to GI bicarbonate loss. Her sodium bicarbonate is improving on a bicarb drip. Critically ill patients with cirrhosis have a high mortality rate and poor prognosis because of the high prevalence of metabolic acidosis. MELD-NA performs well on the short-term mortality assessment in critically ill patients with cirrhosis and metabolic acidosis. Her MELD sodium is lower because she has a TIPS procedure. It is currently calculated out at a 16. She is still a child Ortiz class C. GI bleeding either from portal gastropathy, gastric antral vascular ectasia or varices can lead to worsening encephalopathy. Therefore after her bicarbonate loss is improved she will need an upper endoscopy to make sure that her anemia is not contributing to her encephalopathy (3) Anemia: QUALIFIERS: Anemia type: iron deficiency Iron deficiency anemia type: unspecified iron deficiency Qualified Code(s): D50.9 - Iron deficiency anemia, unspecified PLAN: Acute on chronic anemia secondary to GI blood loss. Hemoglobin seems to be stable. Advance diet as tolerated and she can be on Protonix 40 mg IV every 12 hours. Charges/Coding Visit Charges Inpatient E&M: [id number] [place] [id number]
[2022-11-28] MEDS: Latanoprost 0.005% 1 Bottle 1 DRP LEFT EYE (22:57)
[2022-11-28 23:26] LABS: Bedside Glucose 173 mg/dL (74-106)
[2022-11-29 03:03] VITALS: BP 167/46; PULSE 69; RESP 18; TEMP 36.7; O2SAT 98
[2022-11-29] MEDS: Lactulose 20 GM/30 ML UDC PO ×4 (03:06→21:40)
[2022-11-29] MEDS: Insulin Lispro 100 UNIT/ML INSULN.PEN SC ×3 (06:25→16:44)
[2022-11-29] MEDS: Sodium Bicarbonate 650 MG Tablet 1300 MG PO ×2 (06:25→21:41)
[2022-11-29 06:28] LABS: Absolute Lymphocyte Count 1.52 X10^3/uL (0.83-4.51); Absolute Neutrophil Count 5.4 X10^3/uL (2.0-7.7); Basophil# 0.09 X10^3/uL; Eosinophil# 1.15 X10^3/uL; Eosinophils% 12.8 % (0-5); Hematocrit 26.4 % (37-47); Hemoglobin 8.2 g/dL (12.0-15.0); Lymphocyte # 1.52 X10^3/ul (0.83-4.51); Lymphocyte % 16.9 % (19-41); Mean Corp Hgb Conc 31.1 g/dL (32-36); Mean Corpuscular Hgb 27.5 pg (27.0-32.0); Mean Corpuscular Volume 88.6 fL (81-99); Mean Platelet Vol. 10.2 fl (6.2-12.0); Monocyte# 0.86 X10^3/uL; Monocyte% 9.5 % (0-10); NRBC Flagged by Analyzer 0 % (0-5); Neutrophil # 5.35 X10^3/uL (2.7-7.7); Neutrophil % 59.4 % (47-70); Platelet Count 118 K/mm3 (150-450); RBC Distribution Width CV 17.7 % (11.6-14.6); RBC Distribution Width SD 54.5 fl (35.1-43.9); Red Blood Count 2.98 M/mm3 (4.2-5.4)
[2022-11-29 06:59] LABS: Anion Gap 8 (5-15); BUN 39 mg/dL (7-18); BUN/Creat Ratio 16.2 RATIO (10-20); Calcium,Total 9.3 mg/dL (8.5-10.1); Chloride 119 mmol/L (98-107); EST Glomerular Filtration Rate 21 mL/min (>60); Est Glom Filt Rate - Afr Amer 25 mL/min (>60); Estimated Creatinine Clearance 14.77 ml/min; Glucose 159 mg/dL (74-106); Potassium 3.8 mmol/L (3.5-5.1); Sodium Level 144 mmol/L (136-145)
[2022-11-29 07:15] LABS: Bedside Glucose 157 mg/dL (74-106)
[2022-11-29 08:04] VITALS: BP 172/42; PULSE 59; RESP 18; TEMP 36.9; O2SAT 100
[2022-11-29] MEDS: Potassium Chloride Oral Tablet 20 MEQ PO ×2 (08:07→16:46)
[2022-11-29] MEDS: Iron Polysaccharide Complex 150 MG CAPSULE PO (08:07)
[2022-11-29] MEDS: Pantoprazole Sodium 40 MG Tablet PO (08:07)
[2022-11-29] MEDS: rifAXIMin 550 MG Tablet PO ×2 (08:07→21:41)
[2022-11-29 10:20] VITALS: PULSE 64
[2022-11-29] MEDS: Labetalol 100 MG Tablet 50 MG PO ×2 (10:24→21:41)
--- NOTE | 2022-11-29 10:29 | PCM.PROGNOTE ---
Subjective Subjective Patient's mental status seems to be close to her baseline. She is not eating very well. Objective Data Objective Data Vital Signs: Vital Signs Temp Pulse Resp BP Pulse Ox O2 Del Method 98.4 F 59 L 18 172/42 H 100 Room Air 11/29/22 08:04 11/29/22 08:04 11/29/22 08:04 11/29/22 08:04 11/29/22 08:04 11/29/22 08:04 Oxygen Delivery Method Room Air Weight: 127 lb 13.89 oz Body Mass Index (BMI) 25.0 Intake & Output: Intake and Output for Last 24 Hours 11/27/22 11/28/22 11/29/22 23:59 23:59 23:59 Intake Total 1080 / 1320 1340.75 / 1580.75 480 / 480 Balance 1080 / 1320 1340.75 / 1580.75 480 / 480 Medical Nutrition Assessment Dietitian: Malnutrition Criteria Met Start: 11/21/22 12:47 Freq: Status: Active Protocol: Document 11/24/22 15:28 RMA (Rec: 11/24/22 15:28 RMA [id number]) Nutrition Malnutrition Evidence of Malnutrition Exists Yes Malnutrition (severe): Chronic Evidenced By Suboptimal Energy Intake ( Severe),Weight Loss (Severe) Clinical Problem Chronic Disease or Condition Related Malnutrition Etiology Severe protein-calorie malnutrition in the context of chronic disease related to inadequate energy intake/ inadequate oral intake Signs/Symptoms as evidenced by po intake meeting <75% of est nutritional needs and unintentional wt loss 25.5% wt loss x 10 mo, 8.7% wt loss x 6 mo, 5.6% wt loss x 1 mo [place] [employer] Status Active Problem Recommendation Dietitian Recommendations/Changes Continue liberal regular/no added salt d/t signs and symptoms of malnutrition; Carbohydrate-Controlled/sodium -restricted diet if PO improves at meals. Will continue 4 oz glucerna shake 4x/day w/ medpass for increased nutrition if consumed. May need to consider enteral nutrition support if PO remains poor/inadequate at meals and weight continues to decline. Lab / Micro Data Result Diagrams: 11/29/22 05:55 11/29/22 05:55 Labs: Laboratory Results - last 24 hr 11/28/22 11:00: POC Glucose 171 H 11/28/22 15:38: POC Glucose 164 H 11/28/22 22:54: POC Glucose 173 H 11/29/22 05:55: WBC 9.0, RBC 2.98 L, Hgb 8.2 L, Hct 26.4 L, MCV 88.6, MCH 27.5, MCHC 31.1 L, RDW Std Deviation 54.5 H, RDW Coeff of [place] 17.7 H, Plt Count 118 L, MPV 10.2, Immature Gran % (Auto) 0.400, Neut % (Auto) 59.4, Lymph % (Auto) 16.9 L, [place] % (Auto) 9.5, Eos % (Auto) 12.8 H, Baso % (Auto) 1.0, Absolute Neuts (auto) 5.4, Absolute Lymphs (auto) 1.52, Nucleated RBC % 0 11/29/22 05:55: Sodium 144, Potassium 3.8, Chloride 119 H, Carbon Dioxide 17.0 L, Anion Gap 8, BUN 39 H, Creatinine 2.40 H, Estim Creat Clear Calc 14.77, Est GFR (MDRD) Af Amer 25 L, Est GFR (MDRD) Non-Af 21 L, BUN/Creatinine Ratio 16.2, Glucose 159 H, Calcium 9.3 11/29/22 06:24: POC Glucose 157 H Micro: Microbiology 11/22/22 10:17 Blood Culture (Wb) - Left Hand Blood Culture - Final No growth in 5 days. 11/22/22 10:17 Blood Culture (Wb) - Left Hand Blood Culture - Final No growth in 5 days. 11/20/22 15:35 Blood Culture (Wb) - Anticubital Left Blood Culture - Final No growth in 5 days. 11/20/22 15:45 Urine Catheter - Catheter Urine Culture - Final Culture exhibits no growth. 11/20/22 15:30 Blood Culture (Wb) - Anticubital Right Blood Culture - Final Streptococcus mitis Coag Negative Staph Rhythm Strip Rhythm Strip: Sinus Rhythm Rate: 80 Ectopy: None Physical Exam Narrative Alert awake no obvious distress no pallor no icterus no JVD s1s2 no murmurs lungs clear abdomen soft no organomegaly no edema no cyanosis Assessment & Plan Assessment/Plan (1) Cirrhosis: PLAN: Núñez cirrhosis not on transplant list. Her current MELD is 14 and she is a child Ortiz class C due to renal failure and hepatic encephalopathy. She is status post TIPS for refractory and recalcitrant ascites with acute kidney injury likely secondary to diuretics and diarrhea causing volume loss. Patient is noncompliant with medicines and is not on Xifaxan as an outpatient. Agree with lactulose 20 cc every 4 hours. (2) Acute hepatic encephalopathy: PLAN: She has a severe metabolic acidosis that is possibly secondary to GI bicarbonate loss. Her sodium bicarbonate is improving on a bicarb drip. Critically ill patients with cirrhosis have a high mortality rate and poor prognosis because of the high prevalence of metabolic acidosis. MELD-NA performs well on the short-term mortality assessment in critically ill patients with cirrhosis and metabolic acidosis. Her MELD sodium is lower because she has a TIPS procedure. It is currently calculated out at a 16. She is still a child Ortiz class C. GI bleeding either from portal gastropathy, gastric antral vascular ectasia or varices can lead to worsening encephalopathy. Therefore after her bicarbonate loss is improved she will need an upper endoscopy to make sure that her anemia is not contributing to her encephalopathy (3) Anemia: QUALIFIERS: Anemia type: iron deficiency Iron deficiency anemia type: unspecified iron deficiency Qualified Code(s): D50.9 - Iron deficiency anemia, unspecified PLAN: Acute on chronic anemia secondary to GI blood loss. Hemoglobin seems to be stable. Advance diet as tolerated and she can be on Protonix 40 mg p.o. every 12 hours. Charges/Coding Visit Charges Inpatient E&M: 77048 Subs Hosp L3
[2022-11-29 12:05] LABS: Bedside Glucose 190 mg/dL (74-106)
[2022-11-29] MEDS: Ondansetron 4 MG/2 ML Vial IV (15:11)
--- NOTE | 2022-11-29 15:22 | PN.RENAL_ITS ---
Subjective Subjective Follow-up on acute on chronic kidney injury. She is crying. She states that she is upset with her current condition. Nevertheless she is breathing okay, no respiratory compromise. Appetite is poor Objective Data Objective Data Vital Signs: Vital Signs Temp Pulse Resp BP Pulse Ox O2 Del Method 98.4 F 64 18 172/42 H 100 Room Air 11/29/22 08:04 11/29/22 10:20 11/29/22 08:04 11/29/22 08:04 11/29/22 08:04 11/29/22 08:04 Oxygen Delivery Method Room Air Weight: 58 kg Body Mass Index (BMI) 25.0 Intake & Output: Intake and Output for Last 24 Hours 11/27/22 11/28/22 11/29/22 23:59 23:59 23:59 Intake Total 1080 / 1320 1340.75 / 1580.75 480 / 480 Balance 1080 / 1320 1340.75 / 1580.75 480 / 480 Medical Nutrition Assessment Dietitian: Malnutrition Criteria Met Start: 11/21/22 12:47 Freq: Status: Active Protocol: Document 11/24/22 15:28 RMA (Rec: 11/24/22 15:28 RMA [id number]) Nutrition Malnutrition Evidence of Malnutrition Exists Yes Malnutrition (severe): Chronic Evidenced By Suboptimal Energy Intake ( Severe),Weight Loss (Severe) Clinical Problem Chronic Disease or Condition Related Malnutrition Etiology Severe protein-calorie malnutrition in the context of chronic disease related to inadequate energy intake/ inadequate oral intake Signs/Symptoms as evidenced by po intake meeting <75% of est nutritional needs and unintentional wt loss 25.5% wt loss x 10 mo, 8.7% wt loss x 6 mo, 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 Will continue 4 oz glucerna shake 4x/day w/ medpass for increased nutrition if consumed. May need to consider enteral nutrition support if PO remains poor/inadequate at meals and weight continues to decline. Lab / Micro Data Attestation: I reviewed the patient's lab results. Result Diagrams: 11/29/22 05:55 11/29/22 05:55 Labs: Laboratory Results - last 24 hr 11/28/22 15:38: POC Glucose 164 H 11/28/22 22:54: POC Glucose 173 H 11/29/22 05:55: WBC 9.0, RBC 2.98 L, Hgb 8.2 L, Hct 26.4 L, MCV 88.6, MCH 27.5, MCHC 31.1 L, RDW Std Deviation 54.5 H, RDW Coeff of [place] 17.7 H, Plt Count 118 L, MPV 10.2, Immature Gran % (Auto) 0.400, Neut % (Auto) 59.4, Lymph % (Auto) 16.9 L, [place] % (Auto) 9.5, Eos % (Auto) 12.8 H, Baso % (Auto) 1.0, Absolute Neuts (au to) 5.4, Absolute Lymphs (auto) 1.52, Nucleated RBC % 0 11/29/22 05:55: Sodium 144, Potassium 3.8, Chloride 119 H, Carbon Dioxide 17.0 L , Anion Gap 8, BUN 39 H, Creatinine 2.40 H, Estim Creat Clear Calc 14.77, Est GFR (MDRD) Af Amer 25 L, Est GFR (MDRD) Non-Af 21 L, BUN/Creatinine Ratio 16.2, Glucose 159 H, Calcium 9.3 11/29/22 06:24: POC Glucose 157 H 11/29/22 11:26: POC Glucose 190 H Micro: Microbiology 11/22/22 10:17 Blood Culture (Wb) - Left Hand Blood Culture - Final No growth in 5 days. 11/22/22 10:17 Blood Culture (Wb) - Left Hand Blood Culture - Final No growth in 5 days. 11/20/22 15:35 Blood Culture (Wb) - Anticubital Left Blood Culture - Final No growth in 5 days. 11/20/22 15:45 Urine Catheter - Catheter Urine Culture - Final Culture exhibits no growth. 11/20/22 15:30 Blood Culture (Wb) - Anticubital Right Blood Culture - Final Streptococcus mitis Coag Negative Staph Rhythm Strip Rhythm Strip: Sinus Rhythm Rate: 80 Ectopy: None Physical Exam Const alert General Appearance: well developed Orientation / Consciousness: oriented to person and oriented to place Nutritional Appearance: obese HEENT normocephalic Head and Scalp: atraumatic Mouth: dry mucous membranes Neck no lymphadenopathy Resp no use of accessory muscles and clear to auscultation bilaterally Cardio regular rate GI Auscultation: normoactive bowel sounds Skin no rashes or lesions noted Psych cooperative Assessment & Plan Assessment/Plan (1) Acute on chronic kidney failure: QUALIFIERS: Chronic kidney disease stage: stage 3 (moderate) Chronic kidney disease stage 3 subtype: stage 3b (GFR 30-44) PLAN: Creatinine seems to have stabilized at 2.4 range, she makes good urine, acidosis is very mild, no respiratory compromise, potassium is fine PLAN: Plan She does not need dialysis and I do not think she needs bicarb supplement at this moment. Kidney function will get any better at this point. We will follow
[2022-11-29 15:46] VITALS: BP 140/45; PULSE 66; RESP 16; TEMP 36.9; O2SAT 99
--- NOTE | 2022-11-29 17:23 | PCM.PN.HOSP ---
Reason for Visit Reason for Visit: Diagnoses Iron deficiency anemia, unspecified (11/20/22) Hyperkalemia (11/20/22) Unspecified cirrhosis of liver (11/20/22) Hepatic encephalopathy (11/20/22) Acute kidney failure, unspecified (11/20/22) Chronic kidney disease, unspecified (11/20/22) Subjective Subjective Patient was seen and examined today, she denies any problems to this examiner. Objective Data Objective Data Vital Signs: Vital Signs Temp Pulse Resp BP Pulse Ox O2 Del Method 98.5 F 66 16 140/45 H 99 Room Air 11/29/22 15:46 11/29/22 15:46 11/29/22 15:46 11/29/22 15:46 11/29/22 15:46 11/29/22 15:46 Oxygen Delivery Method Room Air Weight: 58 kg Body Mass Index (BMI) 25.0 Intake & Output: Intake and Output for Last 24 Hours 11/27/22 11/28/22 11/29/22 23:59 23:59 23:59 Intake Total 1080 / 1320 1340.75 / 1580.75 980 / 980 Balance 1080 / 1320 1340.75 / 1580.75 980 / 980 Medical Nutrition Assessment Dietitian: Malnutrition Criteria Met Start: 11/21/22 12:47 Freq: Status: Active Protocol: Document 11/24/22 15:28 RMA (Rec: 11/24/22 15:28 RMA [id number]) Nutrition Malnutrition Evidence of Malnutrition Exists Yes Malnutrition (severe): Chronic Evidenced By Suboptimal Energy Intake ( Severe),Weight Loss (Severe) Clinical Problem Chronic Disease or Condition Related Malnutrition Etiology Severe protein-calorie malnutrition in the context of chronic disease related to inadequate energy intake/ inadequate oral intake Signs/Symptoms as evidenced by po intake meeting <75% of est nutritional needs and unintentional wt loss 25.5% wt loss x 10 mo, 8.7% wt loss x 6 mo, 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 Will continue 4 oz glucerna shake 4x/day w/ medpass for increased nutrition if consumed. May need to consider enteral nutrition support if PO remains poor/inadequate at meals and weight continues to decline. Lab / Micro Data Result Diagrams: 11/29/22 05:55 11/29/22 05:55 Labs: Laboratory Results - last 24 hr 11/28/22 22:54: POC Glucose 173 H 11/29/22 05:55: WBC 9.0, RBC 2.98 L, Hgb 8.2 L, Hct 26.4 L, MCV 88.6, MCH 27.5, MCHC 31.1 L, RDW Std Deviation 54.5 H, RDW Coeff of [place] 17.7 H, Plt Count 118 L, MPV 10.2, Immature Gran % (Auto) 0.400, Neut % (Auto) 59.4, Lymph % (Auto) 16.9 L, [place] % (Auto) 9.5, Eos % (Auto) 12.8 H, Baso % (Auto) 1.0, Absolute Neuts (auto) 5.4, Absolute Lymphs (auto) 1.52, Nucleated RBC % 0 11/29/22 05:55: Sodium 144, Potassium 3.8, Chloride 119 H, Carbon Dioxide 17.0 L, Anion Gap 8, BUN 39 H, Creatinine 2.40 H, Estim Creat Clear Calc 14.77, Est GFR (MDRD) Af Amer 25 L, Est GFR (MDRD) Non-Af 21 L, BUN/Creatinine Ratio 16.2, Glucose 159 H, Calcium 9.3 11/29/22 06:24: POC Glucose 157 H 11/29/22 11:26: POC Glucose 190 H Micro: Microbiology 11/22/22 10:17 Blood Culture (Wb) - Left Hand Blood Culture - Final No growth in 5 days. 11/22/22 10:17 Blood Culture (Wb) - Left Hand Blood Culture - Final No growth in 5 days. 11/20/22 15:35 Blood Culture (Wb) - Anticubital Left Blood Culture - Final No growth in 5 days. 11/20/22 15:45 Urine Catheter - Catheter Urine Culture - Final Culture exhibits no growth. 11/20/22 15:30 Blood Culture (Wb) - Anticubital Right Blood Culture - Final Streptococcus mitis Coag Negative Staph Rhythm Strip Rhythm Strip: Sinus Rhythm Rate: 80 Ectopy: None Physical Exam Const alert, oriented x3 and no apparent distress Constitutional Narrative: Patient appears older than her stated age General Appearance: cooperative, well kempt and well developed Orientation / Consciousness: awake, oriented to person and oriented to place HEENT normocephalic, head/scalp atraumatic and moist oral mucous membranes Eyes PERRL, EOMs intact bilaterally and conjunctivae normal Neck supple, no JVD and thyroid normal General: trachea midline Resp normal respiratory effort, no retractions, no use of accessory muscles and clear to auscultation bilaterally Auscultation: Negative for rales, rhonchi or wheezes Cardio regular rate, regular rhythm, S1 normal heart sound, S2 normal heart sound, no murmurs, no rub and no gallops GI normal to inspection, nondistended, normoactive bowel sounds, soft to palpation, non-tender and non-distended Extremity no clubbing, cyanosis or edema Skin no rashes or lesions noted General Skin Exam: no breakdown Neuro oriented x3, CN's II-XII intact bilaterally, moves all extremities, no focal motor deficits and no sensory deficits noted Sensorium / Orientation: awake and alert Speech: speech normal Psych Psych Narrative: Patient has flat affect Assessment & Plan Assessment/Plan (1) Acute hepatic encephalopathy: PLAN: Plan 1. Metabolic encephalopathy secondary to hepatic encephalopathy from chronic cirrhosis of the liver-patient will continue on her lactulose and Xifaxan, we are awaiting placement in a retirement facility for short-term rehab services #2 chronic cirrhosis-complicates care, medical course, recovery, and prognosis #3 type 2 diabetes-patient's blood sugars will be monitored, sliding scale insulin will be continued #4 COPD-patient will remain on as needed albuterol aerosol treatments #5 chronic kidney disease stage IV-complicates care, medical course, recovery, and prognosis #6 severe protein and caloric malnutrition in the context of chronic disease related to inadequate energy intake/inadequate oral intake as evidenced by p.o. intake meeting less than 75% of estimated nutritional needs and unintentional weight loss of 25.5% x 10 months-continue liberal regular diet-no added salt, 4 ounces of Glucerna shake 4 times a day with med Pass for increased nutrition #7 acute debility-secondary to chronic medical problems-PT and OT will continue to see the patient, she will need short-term placement in a retirement facility for rehab services. Total clinical time spent by myself addressing the patient's medical issues, reviewing all of her data, and collaborating with the patient's care team: 36 minutes Charges/Coding Visit Charges Inpatient E&M: 15587 Subs Hosp L2
[2022-11-29 17:50] LABS: Bedside Glucose 195 mg/dL (74-106)
[2022-11-29] MEDS: Acetaminophen 325 MG Tablet 650 MG PO (19:22)
[2022-11-29 21:37] VITALS: BP 156/41; PULSE 68; RESP 16; TEMP 36.8; O2SAT 98
[2022-11-29] MEDS: Latanoprost 0.005% 1 Bottle 1 DRP LEFT EYE (21:41)
[2022-11-29 22:09] VITALS: BP 156/41; PULSE 68; RESP 16; TEMP 36.8; O2SAT 98
[2022-11-29 22:36] LABS: Bedside Glucose 181 mg/dL (74-106)
[2022-11-30] VITALS (9 sets, daily range): BP systolic 117–172; BP diastolic 38–57; PULSE 58–79; RESP 16–18; TEMP 36.6–37.1; O2SAT 95–98
[2022-11-30] MEDS: Lactulose 20 GM/30 ML UDC PO ×4 (03:26→21:10)
[2022-11-30] MEDS: Sodium Bicarbonate 650 MG Tablet 1300 MG PO ×2 (06:20→21:10)
[2022-11-30] MEDS: Insulin Lispro 100 UNIT/ML INSULN.PEN SC ×3 (06:20→17:05)
[2022-11-30 06:25] LABS: Absolute Lymphocyte Count 1.37 X10^3/uL (0.83-4.51); Absolute Neutrophil Count 4.2 X10^3/uL (2.0-7.7); Basophil# 0.06 X10^3/uL; Basophil% 0.8 % (0-1); Eosinophil# 1.06 X10^3/uL; Eosinophils% 14.3 % (0-5); Hematocrit 24.1 % (37-47); Hemoglobin 7.8 g/dL (12.0-15.0); Lymphocyte # 1.37 X10^3/ul (0.83-4.51); Lymphocyte % 18.5 % (19-41); Mean Corp Hgb Conc 32.4 g/dL (32-36); Mean Corpuscular Hgb 28.6 pg (27.0-32.0); Mean Corpuscular Volume 88.3 fL (81-99); Mean Platelet Vol. 10.2 fl (6.2-12.0); Monocyte# 0.72 X10^3/uL; Monocyte% 9.7 % (0-10); NRBC Flagged by Analyzer 0 % (0-5); Neutrophil # 4.17 X10^3/uL (2.7-7.7); Neutrophil % 56.3 % (47-70); Platelet Count 112 K/mm3 (150-450); RBC Distribution Width CV 18.4 % (11.6-14.6); RBC Distribution Width SD 55.8 fl (35.1-43.9); Red Blood Count 2.73 M/mm3 (4.2-5.4); White Blood Count 7.4 K/mm3 (4.4-11.0)
[2022-11-30 06:48] LABS: Anion Gap 6 (5-15); BUN 36 mg/dL (7-18); BUN/Creat Ratio 14.9 RATIO (10-20); Calcium,Total 9.4 mg/dL (8.5-10.1); Chloride 120 mmol/L (98-107); Creatinine, Serum 2.42 mg/dL (0.55-1.02); EST Glomerular Filtration Rate 21 mL/min (>60); Est Glom Filt Rate - Afr Amer 25 mL/min (>60); Estimated Creatinine Clearance 14.65 ml/min; Glucose 188 mg/dL (74-106); Potassium 3.6 mmol/L (3.5-5.1); Sodium Level 143 mmol/L (136-145)
[2022-11-30 06:51] LABS: Bedside Glucose 161 mg/dL (74-106)
[2022-11-30] MEDS: Labetalol 100 MG Tablet 50 MG PO ×2 (08:52→21:11)
[2022-11-30] MEDS: Potassium Chloride Oral Tablet 20 MEQ PO ×2 (08:52→17:06)
[2022-11-30] MEDS: rifAXIMin 550 MG Tablet PO ×2 (08:52→21:11)
[2022-11-30] MEDS: Pantoprazole Sodium 40 MG Tablet PO (08:52)
[2022-11-30] MEDS: Iron Polysaccharide Complex 150 MG CAPSULE PO (08:53)
--- NOTE | 2022-11-30 10:32 | PCM.PROGNOTE ---
Subjective Subjective Patient is doing well this morning. She is tolerating a diet. She seems more alert. She seems to be back to her baseline. Objective Data Objective Data Vital Signs: Vital Signs Temp Pulse Resp BP Pulse Ox O2 Del Method 98.2 F 79 16 172/49 H 98 Room Air 11/30/22 10:00 11/30/22 10:00 11/30/22 10:00 11/30/22 10:00 11/30/22 10:00 11/30/22 10:00 Oxygen Delivery Method Room Air Weight: 127 lb 13.89 oz Body Mass Index (BMI) 25.0 Intake & Output: Intake and Output for Last 24 Hours 11/28/22 11/29/22 11/30/22 23:59 23:59 23:59 Intake Total 1340.75 / 1580.75 1400 / 1620 460 / 460 Balance 1340.75 / 1580.75 1400 / 1620 460 / 460 Medical Nutrition Assessment Dietitian: Malnutrition Criteria Met Start: 11/21/22 12:47 Freq: Status: Active Protocol: Document 11/24/22 15:28 RMA (Rec: 11/24/22 15:28 RMA [id number]) Nutrition Malnutrition Evidence of Malnutrition Exists Yes Malnutrition (severe): Chronic Evidenced By Suboptimal Energy Intake ( Severe),Weight Loss (Severe) Clinical Problem Chronic Disease or Condition Related Malnutrition Etiology Severe protein-calorie malnutrition in the context of chronic disease related to inadequate energy intake/ inadequate oral intake Signs/Symptoms as evidenced by po intake meeting <75% of est nutritional needs and unintentional wt loss 25.5% wt loss x 10 mo, 8.7% wt loss x 6 mo, 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 Will continue 4 oz glucerna shake 4x/day w/ medpass for increased nutrition if consumed. May need to consider enteral nutrition support if PO remains poor/inadequate at meals and weight continues to decline. Lab / Micro Data Result Diagrams: 11/30/22 05:40 11/30/22 05:40 Labs: Laboratory Results - last 24 hr 11/26/22 15:35: Crossmatch See Detail 11/29/22 11:26: POC Glucose 190 H 11/29/22 16:43: POC Glucose 195 H 11/29/22 21:39: POC Glucose 181 H 11/30/22 05:40: WBC 7.4, RBC 2.73 L, Hgb 7.8 L, Hct 24.1 L, MCV 88.3, MCH 28.6, MCHC 32.4, RDW Std Deviation 55.8 H, RDW Coeff of [place] 18.4 H, Plt Count 112 L, MPV 10.2, Immature Gran % (Auto) 0.400, Neut % (Auto) 56.3, Lymph % (Auto) 18.5 L, [place] % (Auto) 9.7, Eos % (Auto) 14.3 H, Baso % (Auto) 0.8, Absolute Neuts (auto) 4.2, Absolute Lymphs (auto) 1.37, Nucleated RBC % 0 11/30/22 05:40: Sodium 143, Potassium 3.6, Chloride 120 H, Carbon Dioxide 17.0 L, Anion Gap 6, BUN 36 H, Creatinine 2.42 H, Estim Creat Clear Calc 14.65, Est GFR (MDRD) Af Amer 25 L, Est GFR (MDRD) Non-Af 21 L, BUN/Creatinine Ratio 14.9, Glucose 188 H, Calcium 9.4 11/30/22 06:19: POC Glucose 161 H Micro: Microbiology 11/22/22 10:17 Blood Culture (Wb) - Left Hand Blood Culture - Final No growth in 5 days. 11/22/22 10:17 Blood Culture (Wb) - Left Hand Blood Culture - Final No growth in 5 days. 11/20/22 15:35 Blood Culture (Wb) - Anticubital Left Blood Culture - Final No growth in 5 days. 11/20/22 15:45 Urine Catheter - Catheter Urine Culture - Final Culture exhibits no growth. 11/20/22 15:30 Blood Culture (Wb) - Anticubital Right Blood Culture - Final Streptococcus mitis Coag Negative Staph Rhythm Strip Rhythm Strip: Sinus Rhythm Rate: 80 Ectopy: None Physical Exam Const alert, oriented x3 and no apparent distress Constitutional Narrative: Patient appears older than her stated age General Appearance: cooperative, well kempt and well developed Orientation / Consciousness: awake, oriented to person and oriented to place HEENT normocephalic, head/scalp atraumatic and moist oral mucous membranes Eyes PERRL, EOMs intact bilaterally and conjunctivae normal Neck supple, no JVD and thyroid normal General: trachea midline Resp normal respiratory effort, no retractions, no use of accessory muscles and clear to auscultation bilaterally Auscultation: Negative for rales, rhonchi or wheezes Cardio regular rate, regular rhythm, S1 normal heart sound, S2 normal heart sound, no murmurs, no rub and no gallops GI normal to inspection, nondistended, normoactive bowel sounds, soft to palpation, non-tender and non-distended Extremity no clubbing, cyanosis or edema Skin no rashes or lesions noted General Skin Exam: no breakdown Neuro oriented x3, CN's II-XII intact bilaterally, moves all extremities, no focal motor deficits and no sensory deficits noted Sensorium / Orientation: awake and alert Speech: speech normal Psych Psych Narrative: Patient has flat affect Assessment & Plan Assessment/Plan (1) Acute hepatic encephalopathy: PLAN: Plan 1. Metabolic encephalopathy secondary to hepatic encephalopathy from chronic cirrhosis of the liver-patient will continue on her lactulose and Xifaxan, we are awaiting placement in a penitentiary facility for short-term rehab services #2 chronic cirrhosis-complicates care, medical course, recovery, and prognosis #3 type 2 diabetes-patient's blood sugars will be monitored, sliding scale insulin will be continued #4 COPD-patient will remain on as needed albuterol aerosol treatments #5 chronic kidney disease stage IV-complicates care, medical course, recovery, and prognosis #6 severe protein and caloric malnutrition in the context of chronic disease related to inadequate energy intake/inadequate oral intake as evidenced by p.o. intake meeting less than 75% of estimated nutritional needs and unintentional weight loss of 25.5% x 10 months-continue liberal regular diet-no added salt, 4 ounces of Glucerna shake 4 times a day with med Pass for increased nutrition #7 acute debility-secondary to chronic medical problems-PT and OT will continue to see the patient, she will need short-term placement in a penitentiary facility for rehab services. Total clinical time spent by myself addressing the patient's medical issues, reviewing all of her data, and collaborating with the patient's care team: 36 minutes Charges/Coding Visit Charges Inpatient E&M: 30376 Subs Hosp L3
--- NOTE | 2022-11-30 12:42 | PCM.PN.HOSP ---
Reason for Visit Reason for Visit: Diagnoses Iron deficiency anemia, unspecified (11/20/22) Hyperkalemia (11/20/22) Unspecified cirrhosis of liver (11/20/22) Hepatic encephalopathy (11/20/22) Acute kidney failure, unspecified (11/20/22) Chronic kidney disease, unspecified (11/20/22) Subjective Subjective Patient was seen and examined today, she is alert and does not complain of any nausea to this examiner although there is a emesis bag on her right chest area. Patient states she ate breakfast today. Objective Data Objective Data Vital Signs: Vital Signs Temp Pulse Resp BP Pulse Ox O2 Del Method 98.2 F 79 16 172/49 H 98 Room Air 11/30/22 10:00 11/30/22 10:00 11/30/22 10:00 11/30/22 10:00 11/30/22 10:00 11/30/22 10:00 Oxygen Delivery Method Room Air Weight: 58 kg Body Mass Index (BMI) 25.0 Intake & Output: Intake and Output for Last 24 Hours 11/28/22 11/29/22 11/30/22 23:59 23:59 23:59 Intake Total 1340.75 / 1580.75 1400 / 1620 940 / 940 Balance 1340.75 / 1580.75 1400 / 1620 940 / 940 Medical Nutrition Assessment Dietitian: Malnutrition Criteria Met Start: 11/21/22 12:47 Freq: Status: Active Protocol: Document 11/24/22 15:28 RMA (Rec: 11/24/22 15:28 RMA [id number]) Nutrition Malnutrition Evidence of Malnutrition Exists Yes Malnutrition (severe): Chronic Evidenced By Suboptimal Energy Intake ( Severe),Weight Loss (Severe) Clinical Problem Chronic Disease or Condition Related Malnutrition Etiology Severe protein-calorie malnutrition in the context of chronic disease related to inadequate energy intake/ inadequate oral intake Signs/Symptoms as evidenced by po intake meeting <75% of est nutritional needs and unintentional wt loss 25.5% wt loss x 10 mo, 8.7% wt loss x 6 mo, 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 Will continue 4 oz glucerna shake 4x/day w/ medpass for increased nutrition if consumed. May need to consider enteral nutrition support if PO remains poor/inadequate at meals and weight continues to decline. Lab / Micro Data Result Diagrams: 11/30/22 05:40 11/30/22 05:40 Labs: Laboratory Results - last 24 hr 11/26/22 15:35: Crossmatch See Detail 11/29/22 16:43: POC Glucose 195 H 11/29/22 21:39: POC Glucose 181 H 11/30/22 05:40: WBC 7.4, RBC 2.73 L, Hgb 7.8 L, Hct 24.1 L, MCV 88.3, MCH 28.6, MCHC 32.4, RDW Std Deviation 55.8 H, RDW Coeff of [place] 18.4 H, Plt Count 112 L, MPV 10.2, Immature Gran % (Auto) 0.400, Neut % (Auto) 56.3, Lymph % (Auto) 18.5 L, [place] % (Auto) 9.7, Eos % (Auto) 14.3 H, Baso % (Auto) 0.8, Absolute Neuts (auto) 4.2, Absolute Lymphs (auto) 1.37, Nucleated RBC % 0 11/30/22 05:40: Sodium 143, Potassium 3.6, Chloride 120 H, Carbon Dioxide 17.0 L, Anion Gap 6, BUN 36 H, Creatinine 2.42 H, Estim Creat Clear Calc 14.65, Est GFR (MDRD) Af Amer 25 L, Est GFR (MDRD) Non-Af 21 L, BUN/Creatinine Ratio 14.9, Glucose 188 H, Calcium 9.4 11/30/22 06:19: POC Glucose 161 H Micro: Microbiology 11/22/22 10:17 Blood Culture (Wb) - Left Hand Blood Culture - Final No growth in 5 days. 11/22/22 10:17 Blood Culture (Wb) - Left Hand Blood Culture - Final No growth in 5 days. 11/20/22 15:35 Blood Culture (Wb) - Anticubital Left Blood Culture - Final No growth in 5 days. 11/20/22 15:45 Urine Catheter - Catheter Urine Culture - Final Culture exhibits no growth. 11/20/22 15:30 Blood Culture (Wb) - Anticubital Right Blood Culture - Final Streptococcus mitis Coag Negative Staph Rhythm Strip Rhythm Strip: Sinus Rhythm Rate: 80 Ectopy: None Physical Exam Narrative alert, oriented x3 and no apparent distress Constitutional Narrative: Patient appears older than her stated age General Appearance: cooperative, well kempt and well developed Orientation / Consciousness: awake, oriented to person and oriented to place HEENT normocephalic, head/scalp atraumatic and moist oral mucous membranes Eyes PERRL, EOMs intact bilaterally and conjunctivae normal Neck supple, no JVD and thyroid normal General: trachea midline Resp normal respiratory effort, no retractions, no use of accessory muscles and clear to auscultation bilaterally Auscultation: Negative for rales, rhonchi or wheezes Cardio regular rate, regular rhythm, S1 normal heart sound, S2 normal heart sound, no murmurs, no rub and no gallops GI normal to inspection, nondistended, normoactive bowel sounds, soft to palpation, non-tender and non-distended Extremity no clubbing, cyanosis or edema Skin no rashes or lesions noted General Skin Exam: no breakdown Neuro oriented x3, CN's II-XII intact bilaterally, moves all extremities, no focal motor deficits and no sensory deficits noted Sensorium / Orientation: awake and alert Speech: speech normal Psych Psych Narrative: Patient has flat affect Assessment & Plan Assessment/Plan (1) Acute hepatic encephalopathy: PLAN: Plan 1. Metabolic encephalopathy secondary to hepatic encephalopathy from chronic cirrhosis of the liver-patient will continue on her lactulose and Xifaxan, we are awaiting placement in a care home facility for short-term rehab services #2 chronic cirrhosis-complicates care, medical course, recovery, and prognosis #3 type 2 diabetes-patient's blood sugars will be monitored, sliding scale insulin will be continued #4 COPD-patient will remain on as needed albuterol aerosol treatments #5 chronic kidney disease stage IV-complicates care, medical course, recovery, and prognosis, patient's kidney function appears to be stable at this time #6 severe protein and caloric malnutrition in the context of chronic disease related to inadequate energy intake/inadequate oral intake as evidenced by p.o. intake meeting less than 75% of estimated nutritional needs and unintentional weight loss of 25.5% x 10 months-continue liberal regular diet-no added salt, 4 ounces of Glucerna shake 4 times a day with med Pass for increased nutrition #7 acute debility-secondary to chronic medical problems-PT and OT will continue to see the patient, she will need short-term placement in a care home facility for rehab services. Total clinical time spent by myself addressing the patient's medical issues, reviewing all of her data, and collaborating with the patient's care team: 35 minutes Charges/Coding Visit Charges Inpatient E&M: 24273 Subs Hosp L2
[2022-11-30 12:46] LABS: Bedside Glucose 200 mg/dL (74-106)
[2022-11-30 17:31] LABS: Bedside Glucose 162 mg/dL (74-106)
[2022-11-30] MEDS: Latanoprost 0.005% 1 Bottle 1 DRP LEFT EYE (21:10)
[2022-11-30 22:05] LABS: Bedside Glucose 174 mg/dL (74-106)
[2022-12-01] MEDS: Lactulose 20 GM/30 ML UDC PO ×5 (02:06→16:31)
[2022-12-01 03:00] VITALS: BP 149/45; PULSE 80; RESP 18; TEMP 37; O2SAT 94
[2022-12-01] MEDS: Sodium Bicarbonate 650 MG Tablet 1300 MG PO ×2 (06:31→13:08)
[2022-12-01] MEDS: Insulin Lispro 100 UNIT/ML INSULN.PEN SC ×2 (06:33→10:40)
[2022-12-01 07:00] LABS: Bedside Glucose 160 mg/dL (74-106)
--- NOTE | 2022-12-01 08:40 | PN.RENAL_ITS ---
Objective Data Objective Data Vital Signs: Vital Signs Temp Pulse Resp BP Pulse Ox O2 Del Method 98.6 F 80 18 149/45 H 94 Room Air 12/01/22 03:00 12/01/22 03:00 12/01/22 03:00 12/01/22 03:00 12/01/22 03:00 12/01/22 03:00 Oxygen Delivery Method Room Air Weight: 58 kg Body Mass Index (BMI) 25.0 Intake & Output: Intake and Output for Last 24 Hours 11/29/22 11/30/22 12/01/22 23:59 23:59 23:59 Intake Total 1400 / 1620 1420 / 1520 200 / 200 Balance 1400 / 1620 1420 / 1520 200 / 200 Medical Nutrition Assessment Dietitian: Malnutrition Criteria Met Start: 11/21/22 12:47 Freq: Status: Active Protocol: Document 11/24/22 15:28 RMA (Rec: 11/24/22 15:28 RMA [id number]) Nutrition Malnutrition Evidence of Malnutrition Exists Yes Malnutrition (severe): Chronic Evidenced By Suboptimal Energy Intake ( Severe),Weight Loss (Severe) Clinical Problem Chronic Disease or Condition Related Malnutrition Etiology Severe protein-calorie malnutrition in the context of chronic disease related to inadequate energy intake/ inadequate oral intake Signs/Symptoms as evidenced by po intake meeting <75% of est nutritional needs and unintentional wt loss 25.5% wt loss x 10 mo, 8.7% wt loss x 6 mo, 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 Will continue 4 oz glucerna shake 4x/day w/ medpass for increased nutrition if consumed. May need to consider enteral nutrition support if PO remains poor/inadequate at meals and weight continues to decline. Lab / Micro Data Result Diagrams: 11/30/22 05:40 11/30/22 05:40 Labs: Laboratory Results - last 24 hr 11/26/22 15:35: Crossmatch See Detail 11/30/22 12:17: POC Glucose 200 H 11/30/22 17:02: POC Glucose 162 H 11/30/22 21:10: POC Glucose 174 H 12/01/22 06:33: POC Glucose 160 H Micro: Microbiology 11/22/22 10:17 Blood Culture (Wb) - Left Hand Blood Culture - Final No growth in 5 days. 11/22/22 10:17 Blood Culture (Wb) - Left Hand Blood Culture - Final No growth in 5 days. 11/20/22 15:35 Blood Culture (Wb) - Anticubital Left Blood Culture - Final No growth in 5 days. 11/20/22 15:45 Urine Catheter - Catheter Urine Culture - Final Culture exhibits no growth. 11/20/22 15:30 Blood Culture (Wb) - Anticubital Right Blood Culture - Final Streptococcus mitis Coag Negative Staph Rhythm Strip Rhythm Strip: Sinus Rhythm Rate: 80 Ectopy: None Physical Exam Narrative Alert awake, no obvious distress s1s2 no murmurs lungs clear abdomen soft no edema Assessment & Plan Assessment/Plan (1) Acute on chronic kidney failure: QUALIFIERS: Chronic kidney disease stage: stage 3 (moderate) Chronic kidney disease stage 3 subtype: stage 3b (GFR 30-44) PLAN: - Overall renal function remains stable. 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 SCr peaked at 5.79 and has leveled off around 2.4 mg/dL. Creatinine seems to have stabilized at 2.4 range, patient is nonoliguric and appears near euvolemic. Acidosis is very mild, we will continue on oral sodium bicarbonate. No respiratory compromise, potassium is normal - Baseline serum creatinine ranging around 1.4mg/dL as of August 2022. - Metabolic encephalopathy secondary to hepatic encephalopathy from chronic cirrhosis. On lactulose and Xifaxan. - Awaiting assisted facility placement - Once patient is discharged, we will arrange for hospital follow-up.
[2022-12-01 08:47] VITALS: BP 162/43; PULSE 64; RESP 15; TEMP 37.1; O2SAT 98
[2022-12-01] MEDS: 0.9% Saline Lock 10 ML Syringe IV (08:49)
[2022-12-01] MEDS: Ondansetron 4 MG/2 ML Vial IV (08:49)
--- NOTE | 2022-12-01 09:00 | PN_ITS ---
Subjective Subjective Patient is doing well. She denies any abdominal pain. She has been taking lactulose as ordered. She underwent upper endoscopy and was discovered to have a bleeding gastric ulcer and portal gastropathy without esophageal varices. Objective Data Objective Data Vital Signs: Vital Signs Temp Pulse Resp BP Pulse Ox O2 Del Method 98.0 F 76 15 183/64 H 97 Room Air 12/01/22 17:12 12/01/22 17:12 12/01/22 17:12 12/01/22 17:12 12/01/22 17:12 12/01/22 17:12 Oxygen Delivery Method Room Air Weight: 127 lb 13.89 oz Body Mass Index (BMI) 25.0 Intake & Output: Intake and Output for Last 24 Hours 11/29/22 11/30/22 12/01/22 23:59 23:59 23:59 Intake Total 1400 / 1620 1420 / 1520 300 / 300 Balance 1400 / 1620 1420 / 1520 300 / 300 Medical Nutrition Assessment Dietitian: Malnutrition Criteria Met Start: 11/21/22 12:47 Freq: Status: Active Protocol: Document 12/01/22 13:00 RMA (Rec: 12/01/22 13:00 RMA [id number]) Nutrition Malnutrition Evidence of Malnutrition Exists Yes Malnutrition (severe): Chronic Evidenced By Suboptimal Energy Intake ( Severe),Weight Loss (Severe) Clinical Problem Chronic Disease or Condition Related Malnutrition Etiology Severe protein-calorie malnutrition in the context of chronic disease related to inadequate energy intake/ inadequate oral intake Signs/Symptoms as evidenced by oral intake meeting <50% of est nutritional needs and unintentional wt loss 25.5% wt loss x 10 mo, 8.7% wt loss x 6 mo, 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 Current weight as able; suspect continued weight loss. Will d/c 4 oz glucerna shake 4x/day w/ medpass due to pt refusal. Will try fortified pudding BID w/ meals as tolerated. May need to consider enteral nutrition support if PO remains poor/inadequate at meals and weight continues to decline. Lab / Micro Data Result Diagrams: 11/30/22 05:40 11/30/22 05:40 Labs: Laboratory Results - last 24 hr 11/30/22 17:02: POC Glucose 162 H 11/30/22 21:10: POC Glucose 174 H 12/01/22 06:33: POC Glucose 160 H 12/01/22 10:39: POC Glucose 191 H Micro: Microbiology 12/01/22 15:08 Nasal Secretion SARS-CoV-2 Antigen (Rapid) - Final 11/22/22 10:17 Blood Culture (Wb) - Left Hand Blood Culture - Final No growth in 5 days. 11/22/22 10:17 Blood Culture (Wb) - Left Hand Blood Culture - Final No growth in 5 days. 11/20/22 15:35 Blood Culture (Wb) - Anticubital Left Blood Culture - Final No growth in 5 days. 11/20/22 15:45 Urine Catheter - Catheter Urine Culture - Final Culture exhibits no growth. 11/20/22 15:30 Blood Culture (Wb) - Anticubital Right Blood Culture - Final Streptococcus mitis Coag Negative Staph Rhythm Strip Rhythm Strip: Sinus Rhythm Rate: 80 Ectopy: None Physical Exam Narrative Alert awake, no obvious distress s1s2 no murmurs lungs clear abdomen soft no edema Assessment & Plan Assessment/Plan (1) Acute on chronic kidney failure: QUALIFIERS: Chronic kidney disease stage: stage 3 (moderate) Chronic kidney disease stage 3 subtype: stage 3b (GFR 30-44) PLAN: - Overall renal function remains stable. 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 SCr peaked at 5.79 and has leveled off around 2.4 mg/dL. Creatinine seems to have stabilized at 2.4 range, patient is nonoliguric and appears near euvolemic. Acidosis is very mild, we will continue on oral sodium bicarbonate. No respiratory compromise, potassium is normal - Baseline serum creatinine ranging around 1.4mg/dL as of August 2022. - Metabolic encephalopathy secondary to hepatic encephalopathy from chronic cirrhosis. On lactulose and Xifaxan. - Awaiting retirement facility placement - Once patient is discharged, we will arrange for hospital follow-up. (2) Acute hepatic encephalopathy: PLAN: Plan 1. Metabolic encephalopathy secondary to hepatic encephalopathy from chronic cirrhosis of the liver-patient will continue on her lactulose and Xifaxan, we are awaiting placement in a retirement facility for short-term rehab services #2 chronic cirrhosis-complicates care, medical course, recovery, and prognosis #3 type 2 diabetes-patient's blood sugars will be monitored, sliding scale insulin will be continued #4 COPD-patient will remain on as needed albuterol aerosol treatments #5 chronic kidney disease stage IV-complicates care, medical course, recovery, and prognosis #6 severe protein and caloric malnutrition in the context of chronic disease related to inadequate energy intake/inadequate oral intake as evidenced by p.o. intake meeting less than 75% of estimated nutritional needs and unintentional weight loss of 25.5% x 10 months-continue liberal regular diet-no added salt, 4 ounces of Glucerna shake 4 times a day with med Pass for increased nutrition #7 acute debility-secondary to chronic medical problems-PT and OT will continue to see the patient, she will need short-term placement in a retirement facility for rehab services. Total clinical time spent by myself addressing the patient's medical issues, reviewing all of her data, and collaborating with the patient's care team: 36 minutes Charges/Coding Visit Charges Inpatient E&M: 39539 Subs Hosp L3
--- NOTE | 2022-12-01 09:07 | CASEMGMT ---
Patient was accepted at [facility]. Pre-cert has been started. SW called patient's and notified him that [facility] can take patient. SW asked if he could bring in patient's Rifaximin so she can take it to [facility]. He said he would bring it in. SW will notify patient as well. Plan: d/c to [place] pending pre-cert. Lety CLIFTON
[2022-12-01] MEDS: Labetalol 100 MG Tablet 50 MG PO (09:35)
[2022-12-01] MEDS: rifAXIMin 550 MG Tablet PO (09:36)
[2022-12-01] MEDS: Pantoprazole Sodium 40 MG Tablet PO (09:36)
[2022-12-01] MEDS: Iron Polysaccharide Complex 150 MG CAPSULE PO (09:36)
[2022-12-01] MEDS: Potassium Chloride Oral Tablet 20 MEQ PO ×2 (09:40→16:31)
--- NOTE | 2022-12-01 10:41 | CASEMGMT ---
Updates sent to [facility] via [employer]. Plan: [facility] pending pre-cert Lety CLIFTON
[2022-12-01 11:10] LABS: Bedside Glucose 191 mg/dL (74-106)
[2022-12-01 14:15] VITALS: O2SAT 97
--- NOTE | 2022-12-01 14:38 | PCM.TXEXTCAR ---
Diet Diet Order/Speech Therapy: 11/21/22 12:48 Diet: 2200 anita - No Added Salt Type of Dietary Supplement:: Ensure Pudding Is pt able to select menu?: No Diet Comments: please leave tray at nurses station; fortified pudding BID Routine Orders/Code Status Routine Lab Work: CBC (on 12/03/22), BMP (on 12/03/22) and - (fingerstick blood sugars fasting and 4 pm daily- call attending if blood sugar over 200 or under 80) Code Status: Full Code Therapies Weight Bearing: Full weight bearing Physical Therapy: Eval and Treat Occupational Therapy: Eval and Treat Problem/Diagnosis (1) Acute on chronic kidney failure: Status: Chronic Code(s): N17.9 - Acute kidney failure, unspecified; N18.9 - Chronic kidney disease, unspecified Plan 1. Metabolic encephalopathy secondary to hepatic encephalopathy from chronic cirrhosis of the liver-patient will continue on her lactulose and Xifaxan, we are awaiting placement in a correction facility for short-term rehab services #2 chronic cirrhosis-complicates care, medical course, recovery, and prognosis #3 type 2 diabetes-patient's blood sugars will be monitored, sliding scale insulin will be continued #4 COPD-patient will remain on as needed albuterol aerosol treatments #5 chronic kidney disease stage IV-complicates care, medical course, recovery, and prognosis, patient's kidney function appears to be stable at this time #6 severe protein and caloric malnutrition in the context of chronic disease related to inadequate energy intake/inadequate oral intake as evidenced by p.o. intake meeting less than 75% of estimated nutritional needs and unintentional weight loss of 25.5% x 10 months-continue liberal regular diet-no added salt, 4 ounces of Glucerna shake 4 times a day with med Pass for increased nutrition #7 acute debility-secondary to chronic medical problems-PT and OT will continue to see the patient, she will need short-term placement in a correction facility for rehab services. Total clinical time spent by myself addressing the patient's medical issues, reviewing all of her data, and collaborating with the patient's care team: 35 minutes Allergies/Procedures Done in Hospital Allergies suture Allergy (Mild, Verified 10/15/22 17:48) rash/ wound dehisence chromic suture ALSO CAT GUT SUTURES - UNKNOWN REACTION amoxicillin Allergy (Verified 10/15/22 17:48) Unknown azithromycin Allergy (Verified 10/15/22 17:48) Shortness of breath celecoxib [From Celebrex] Allergy (Verified 10/15/22 17:48) Other ciprofloxacin HCl [From Cipro] Allergy (Verified 10/15/22 17:48) Shortness of breath cortisone Allergy (Verified 10/15/22 17:48) Swelling doxycycline Allergy (Verified 10/15/22 17:48) Shortness of breath erythromycin base Allergy (Verified 10/15/22 17:48) Unknown fexofenadine [From Ashlee] Allergy (Verified 10/15/22 17:48) Unknown ibuprofen Allergy (Verified 10/15/22 17:48) Shortness of breath Iodinated Contrast Media [DYEE] Allergy (Verified 10/15/22 17:48) Shortness of breath iodine Allergy (Verified 10/15/22 17:48) Shortness of breath levofloxacin [From Levaquin] Allergy (Verified 10/15/22 17:48) Shortness of breath lorazepam [From Ativan] Allergy (Verified 10/15/22 17:48) Shortness of breath nitrofurantoin macrocrystalline [From Macrobid] Allergy (Verified 10/15/22 17:48) Shortness of breath Penicillins Allergy (Verified 10/15/22 17:48) Shortness of breath rofecoxib [From Vioxx] Allergy (Verified 10/15/22 17:48) Unknown Sulfa (Sulfonamide Antibiotics) Allergy (Verified 10/15/22 17:48) Shortness of breath sulfamethoxazole [From Bactrim] Allergy (Verified 10/15/22 17:48) Shortness of breath trimethoprim [From Bactrim] Allergy (Verified 10/15/22 17:48) Shortness of breath amlodipine [From Norvasc] Adverse Reaction (Verified 10/15/22 17:48) Upset Stomach MISC BP MED Allergy (Uncoded 10/15/22 17:48) Shortness of breath Procedures: None Type of Care/Length of Stay Estimated LOS: Convalescent Care Less Than 30 days Type of Care Needed: Skilled Rehab Potential: Fair Prognosis: Fair Additional Orders/Day of Discharge H&P will serve as current which was dated: 11/20/22 Day of Discharge: 12/01/22 Dietary and Speech Recommendations Dietitian Recommendations/Changes: Continue liberal regular/no added salt d/t signs and symptoms of malnutrition; Carbohydrate-Controlled/sodium-restricted diet if PO improves at meals. Current weight as able; suspect continued weight loss. Will d/c 4 oz glucerna shake 4x/day w/ medpass due to pt refusal. Will try fortified pudding BID w/ meals as tolerated. May need to consider enteral nutrition support if PO remains poor/inadequate at meals and weight continues to decline. Discharge Plan Admission Admit Date/Time: 11/20/22 17:34 Primary Reason for Your Visit: Hepatic encephalopathy Attending Provider: Josiah Merchant Primary Care Provider: Josiah Smith Consulting Providers: Ildefonso Faith ; Rafael Biggs ; Miim Mauro ; Lance Davies Discharge Orders/Prescriptions Prescriptions: New acetaminophen [Tylenol] 325 mg Tablet 650 mg PO Q8H PRN (Reason: Pain 1-10 Or Fever) Qty: 0 0RF potassium chloride [Klor-Con M20] 20 mEq Tablet,Er Particles/Crystals 20 meq PO BIDCM Qty: 0 0RF Xifaxan 550 mg Tablet 550 mg PO BID Qty: 0 0RF sodium bicarbonate 650 mg Tablet 1,300 mg PO TID Qty: 0 0RF Continued atorvastatin [Lipitor] 40 mg Tablet 40 mg PO QHS labetalol 100 mg tablet 50 mg PO BID polysaccharide iron complex [Ferrex 150] 150 mg iron Capsule 150 mg PO DAILYCM Qty: 90 0RF ondansetron 4 mg tablet,disintegrating 4 mg PO Q6H PRN PRN (Reason: nausea/vomiting) Label Comments: Take 1 tablet by mouth every 6 hours as needed for nausea/vomiting. lactulose 10 gram/15 mL solution 30 ml PO 4X/DAY Label Comments: Take 30 mL by mouth four times daily. spironolactone 25 mg tablet 25 mg PO DAILY Qty: 30 0RF Label Comments: TAKE 1 TABLET BY MOUTH TWICE DAILY pantoprazole 40 mg tablet,delayed release (DR/EC) 40 mg PO DAILY Label Comments: TAKE 1 TABLET BY MOUTH DAILY torsemide 20 mg Tablet 20 mg PO DAILY albuterol sulfate 90 mcg/actuation HFA aerosol inhaler 2 puff INHALATION Q4H PRN (Reason: SOB) Label Comments: INHALE 2 PUFFS DIRECTED EVERY 4 HOURS NEEDED Lumigan 0.01 % drops 1 drp LEFT EYE DAILY Label Comments: INSTILL 1 DROP IN THE LEFT EYE DAILY glimepiride 4 mg tablet 4 mg PO BREAKFAST Label Comments: TAKE 2 TABLETS BY MOUTH DAILY WITH BREAKFAST Discontinued potassium chloride 20 mEq tablet,ER particles/crystals 20 meq PO DAILY Label Comments: Take 1 tablet by mouth once daily. ramipril 5 mg capsule 5 mg PO DAILY Label Comments: TAKE 1 CAPSULE BY MOUTH AT BEDTIME Xifaxan 550 mg tablet 550 mg PO BID Label Comments: TAKE 1 TABLET BY MOUTH TWICE DAILY Referrals / Follow Up: Josiah Smith MD [Primary Care Provider] - Disposition Disposition (needs filled in before D/C Order can be placed): [facility]irement Facility (1) Acute on chronic kidney failure Qualifiers: Chronic kidney disease stage: stage 3 (moderate) Chronic kidney disease stage 3 subtype: stage 3b (GFR 30-44)
--- NOTE | 2022-12-01 14:41 | CASEMGMT ---
Patient was approved to go to [facility]. ARCENIO notified physician, RN, and patient's . Await orders. ACRENIO completed 7000 in [facility]. Lety Velez PIPE ORGAN TECHNICIAN ETIENNE
--- NOTE | 2022-12-01 14:58 | DS.PCM_ITS ---
Providers Date of Admission: 11/20/22 Date of Discharge: 12/01/22 Primary Care Physician: Dr. Josiah Smith MD Consultations 11/24/22 11:07 Consult: Nephrology Routine Consulting Provider: Mimi Mauro Reason for Consult: ckd EMERGENT Consult: No Notified: Yes Date Notified: 11/24/22 Time Notified: 11:15 Method of Notification: Answering Service 11/24/22 14:38 Consult: Gastroenterology Routine Consulting Provider: [facility] Reason for Consult: hepatic encephalopathy EMERGENT Consult: No Notified: Yes Date Notified: 11/24/22 Time Notified: 15:13 Method of Notification: Text Reason For Visit: HEPATIC ENCEPHALOPATHY Diagnosis Discharge Diagnosis (1) Acute on chronic kidney failure: Status: Chronic Code(s): N17.9 - Acute kidney failure, unspecified; N18.9 - Chronic kidney disease, unspecified Qualifiers: Chronic kidney disease stage: stage 3 (moderate) Chronic kidney disease stage 3 subtype: stage 3b (GFR 30-44) Plan 1. Metabolic encephalopathy secondary to hepatic encephalopathy from chronic cirrhosis of the liver-patient will continue on her lactulose and Xifaxan, we are awaiting placement in a [facility] facility for short-term rehab services #2 chronic cirrhosis-complicates care, medical course, recovery, and prognosis #3 type 2 diabetes-patient's blood sugars will be monitored, sliding scale insulin will be continued #4 COPD-patient will remain on as needed albuterol aerosol treatments #5 chronic kidney disease stage IV-complicates care, medical course, recovery, and prognosis, patient's kidney function appears to be stable at this time #6 severe protein and caloric malnutrition in the context of chronic disease related to inadequate energy intake/inadequate oral intake as evidenced by p.o. intake meeting less than 75% of estimated nutritional needs and unintentional weight loss of 25.5% x 10 months-continue liberal regular diet-no added salt, 4 ounces of Glucerna shake 4 times a day with med Pass for increased nutrition #7 acute debility-secondary to chronic medical problems-PT and OT will continue to see the patient, she will need short-term placement in a [facility] facility for rehab services. #8 gastric ulcer #9 gastritis #10 acute kidney injury on a backdrop of chronic kidney disease stage IV Total clinical time spent by myself addressing the patient's medical issues, reviewing all of her data, and collaborating with the patient's care team: 35 minutes Medications at Discharge Home Medications atorvastatin 40 mg tablet (Lipitor) 40 mg PO QHS cholesterol 02/09/22 labetalol 100 mg tablet 50 mg PO BID blood pressure 05/26/22 polysaccharide iron complex 150 mg iron capsule (Ferrex) 150 mg PO DAILYCM #90 caps 05/28/22 lactulose 10 gram/15 mL oral solution 30 ml PO 4X/DAY liver 10/16/22 ondansetron 4 mg disintegrating tablet 4 mg PO Q6H PRN PRN nausea/vomiting 10/16/22 spironolactone 25 mg tablet 25 mg PO DAILY liver #30 tabs 10/19/22 albuterol sulfate 90 mcg/actuation aerosol inhaler 2 puff inhalation Q4H PRN SOB 11/20/22 bimatoprost 0.01 % eye drops (Lumigan) 1 drp LEFT EYE DAILY GLAUCOMA 11/20/22 glimepiride 4 mg tablet 4 mg PO BREAKFAST diabetes 11/20/22 pantoprazole 40 mg tablet,delayed release 40 mg PO DAILY GERD 11/20/22 torsemide 20 mg tablet 20 mg PO DAILY WATER PILL 11/20/22 acetaminophen 325 mg tablet (Tylenol) 650 mg PO Q8H PRN Pain 1-10 Or Fever #0 tabs 12/01/22 potassium chloride 20 mEq tablet,extended release(part/cryst) (Klor-Con M) 20 meq PO BIDCM #0 tabs 12/01/22 rifaximin 550 mg tablet (Xifaxan) 550 mg PO BID #0 tabs 12/01/22 sodium bicarbonate 650 mg tablet 1,300 mg PO TID #0 tabs 12/01/22 Hospital Course Operations None Procedures Blood transfusion and EGD Summary of Care Provided Minutes Spent on Discharge: 32 Hospital Course: This 72-year-old white female presented to the emergency room with confusion, daughter who accompanied her to the ER stated that the patient had prior bouts of hepatic encephalopathy. Patient's ammonia level in the emergency room was 103, there is also noted to be an elevated creatinine at 5.79, potassium was also elevated at 5.7, patient had a history of recent TIPS procedure at [facility] due to recurrent ascites requiring paracentesis. Patient was admitted to PCU, he she was seen in consultation by nephrology and gastroenterology, her labs were monitored, she required 1 unit of packed red blood cells to be transfused during her hospitalization, she had an EGD performed which showed gastritis and a gastric ulcer which was treated with a heater probe. Patient was seen by PT and OT, it was recommended that she go to a [facility] facility for short-term skilled placement and the patient and her daughter consented. On 12/01/2022, patient was seen and examined: On examination she appeared older than her stated age, she does not appear to be in any distress. Vital signs as documented. Skin warm and dry and without overt rashes. Neck without JVD, thyroid appears normal, trachea is midline, neck is supple. Lungs clear, normal air movement was noted. Heart exam notable for regular rhythm, normal sounds and absence of murmurs, rubs or gallops. Abdomen unremarkable and without evidence of organomegaly, masses, or abdominal aortic enlargement, bowel sounds are present in all 4 quadrants, no abdominal tenderness was noted. Extremities nonedematous, no cyanosis was noted, no clubbing was noted. Neuro: Cranial nerves II through XII are grossly intact, no focal motor deficits were noted, sensation to light touch and pinprick is intact, motor exam 5/5 throughout. Psych: Patient is alert and oriented x3, she does not appear anxious or depressed, she does not appear agitated. Patient was transferred in stable condition to an extended care facility for inpatient [facility] services on 12/01/2022. Medical Records Data Medical Nutrition Assessment Dietitian: Malnutrition Criteria Met Start: 11/21/22 12:47 Freq: Status: Active Protocol: Document 12/01/22 13:00 RMA (Rec: 12/01/22 13:00 RMA [id number]) Nutrition Malnutrition Evidence of Malnutrition Exists Yes Malnutrition (severe): Chronic Evidenced By Suboptimal Energy Intake ( Severe),Weight Loss (Severe) Clinical Problem Chronic Disease or Condition Related Malnutrition Etiology Severe protein-calorie malnutrition in the context of chronic disease related to inadequate energy intake/ inadequate oral intake Signs/Symptoms as evidenced by oral intake meeting <50% of est nutritional needs and unintentional wt loss 25.5% wt loss x 10 mo, 8.7% wt loss x 6 mo, 5.6% wt loss x 1 mo captain room service Status Active Problem Recommendation Dietitian Recommendations/Changes Continue liberal regular/no added salt d/t signs and symptoms of malnutrition; Carbohydrate-Controlled/sodium -restricted diet if PO improves at meals. Current weight as able; suspect continued weight loss. Will d/c 4 oz glucerna shake 4x/day w/ medpass due to pt refusal. Will try fortified pudding BID w/ meals as tolerated. May need to consider enteral nutrition support if PO remains poor/inadequate at meals and weight continues to decline. Weight / BMI Weight Weight: 58 kg Body Mass Index (BMI) 25.0 ABG / Lab / Microbiology Data Result Diagrams: 11/30/22 05:40 11/30/22 05:40 Laboratory: Laboratory Results - last 24 hr 11/30/22 17:02: POC Glucose 162 H 11/30/22 21:10: POC Glucose 174 H 12/01/22 06:33: POC Glucose 160 H 12/01/22 10:39: POC Glucose 191 H Microbiology: Microbiology 11/22/22 10:17 Blood Culture (Wb) - Left Hand Blood Culture - Final No growth in 5 days. 11/22/22 10:17 Blood Culture (Wb) - Left Hand Blood Culture - Final No growth in 5 days. 11/20/22 15:35 Blood Culture (Wb) - Anticubital Left Blood Culture - Final No growth in 5 days. 11/20/22 15:45 Urine Catheter - Catheter Urine Culture - Final Culture exhibits no growth. 11/20/22 15:30 Blood Culture (Wb) - Anticubital Right Blood Culture - Final Streptococcus mitis Coag Negative Staph Meaningful Use Info Meaningful Use Diagnoses (Choose all that apply): None applicable Discharge Plan Admission Admit Date/Time: 11/20/22 17:34 Primary Reason for Your Visit: Hepatic encephalopathy Attending Provider: Josiah Merchant Primary Care Provider: Josiah Smith Consulting Providers: Ildefonso Faith ; Rafael Biggs ; Mimi Mauro ; Lance Davies Discharge Orders/Prescriptions Prescriptions: New acetaminophen [Tylenol] 325 mg Tablet 650 mg PO Q8H PRN (Reason: Pain 1-10 Or Fever) Qty: 0 0RF potassium chloride [Klor-Con M20] 20 mEq Tablet,Er Particles/Crystals 20 meq PO BIDCM Qty: 0 0RF Xifaxan 550 mg Tablet 550 mg PO BID Qty: 0 0RF sodium bicarbonate 650 mg Tablet 1,300 mg PO TID Qty: 0 0RF Continued atorvastatin [Lipitor] 40 mg Tablet 40 mg PO QHS labetalol 100 mg tablet 50 mg PO BID polysaccharide iron complex [Ferrex 150] 150 mg iron Capsule 150 mg PO DAILYCM Qty: 90 0RF ondansetron 4 mg tablet,disintegrating 4 mg PO Q6H PRN PRN (Reason: nausea/vomiting) Label Comments: Take 1 tablet by mouth every 6 hours as needed for nausea/vomiting. lactulose 10 gram/15 mL solution 30 ml PO 4X/DAY Label Comments: Take 30 mL by mouth four times daily. spironolactone 25 mg tablet 25 mg PO DAILY Qty: 30 0RF Label Comments: TAKE 1 TABLET BY MOUTH TWICE DAILY pantoprazole 40 mg tablet,delayed release (DR/EC) 40 mg PO DAILY Label Comments: TAKE 1 TABLET BY MOUTH DAILY torsemide 20 mg Tablet 20 mg PO DAILY albuterol sulfate 90 mcg/actuation HFA aerosol inhaler 2 puff INHALATION Q4H PRN (Reason: SOB) Label Comments: INHALE 2 PUFFS DIRECTED EVERY 4 HOURS NEEDED Lumigan 0.01 % drops 1 drp LEFT EYE DAILY Label Comments: INSTILL 1 DROP IN THE LEFT EYE DAILY glimepiride 4 mg tablet 4 mg PO BREAKFAST Label Comments: TAKE 2 TABLETS BY MOUTH DAILY WITH BREAKFAST Discontinued potassium chloride 20 mEq tablet,ER particles/crystals 20 meq PO DAILY Label Comments: Take 1 tablet by mouth once daily. ramipril 5 mg capsule 5 mg PO DAILY Label Comments: TAKE 1 CAPSULE BY MOUTH AT BEDTIME Xifaxan 550 mg tablet 550 mg PO BID Label Comments: TAKE 1 TABLET BY MOUTH TWICE DAILY Referrals / Follow Up: Josiah Smith MD [Primary Care Provider] - Disposition Disposition (needs filled in before D/C Order can be placed): [facility] Charges/Coding Visit Charges Inpatient E&M: 71006 Disch Hosp >30min
--- NOTE | 2022-12-01 15:36 | CASEMGMT ---
ARCENIO sent orders to [facility] via [facility]. ARCENIO arranged for patient to get picked up at 7p via [facility]. ARCENIO notified RN, patient's , Kristin at [facility], and corporate secretary. 7000 completed in [facility]. Plan: d/c to [facility] under skilled level of care on a convalescent stay. [facility] transported patient via cot. Lety CLIFTON
[2022-12-01 17:12] VITALS: BP 183/64; PULSE 76; RESP 15; TEMP 36.7; O2SAT 97
[2022-12-01 17:30] LABS: Bedside Glucose 149 mg/dL (74-106)
[2022-12-01 17:47] VITALS: BP 183/64; PULSE 76; RESP 15; TEMP 36.7; O2SAT 97
[2022-12-01 17:49] VITALS: BP 183/64; PULSE 76; RESP 15; TEMP 36.7; O2SAT 97
== END 2022-12-01 21:41 | disposition skilled nursing facility (03) | DRG 441 ==
LOC: ED 17:32 → PCU 17:59
PROVIDERS: Family Medicine; Internal Medicine; Internal Medicine Gastroenterology; Emergency Provider Emergency Medicine; PCP Family Medicine; Visit Provider Internal Medicine
PROC: 0DJ08ZZ Inspection of Upper Intestinal Tract, Via Natural or Artificial Opening Endoscopic (ICD-10-PCS; CPT 43235; principal; 2022-11-27 11:10)
DX: K76.82 Hepatic encephalopathy (principal); G93.41 Metabolic encephalopathy; E43 Unspecified severe protein-calorie malnutrition; K25.4 Chronic or unspecified gastric ulcer with hemorrhage; N17.9 Acute kidney failure, unspecified; E87.20 Acidosis, unspecified; D62 Acute posthemorrhagic anemia; N18.4 Chronic kidney disease, stage 4 (severe); D63.8 Anemia in other chronic diseases classified elsewhere; E11.22 Type 2 diabetes mellitus with diabetic chronic kidney disease; D69.6 Thrombocytopenia, unspecified; K74.60 Unspecified cirrhosis of liver; J44.9 Chronic obstructive pulmonary disease, unspecified; E87.5 Hyperkalemia; I12.9 Hypertensive chronic kidney disease with stage 1 through stage 4 chronic kidney disease, or unspecified chronic kidney disease; K21.9 Gastro-esophageal reflux disease without esophagitis; E78.5 Hyperlipidemia, unspecified; E87.6 Hypokalemia; D50.9 Iron deficiency anemia, unspecified; K29.70 Gastritis, unspecified, without bleeding; K31.89 Other diseases of stomach and duodenum; K75.81 Nonalcoholic steatohepatitis (NASH); Z20.822 Contact with and (suspected) exposure to COVID-19; Z91.14 Patient's other noncompliance with medication regimen; Z68.26 Body mass index [BMI] 26.0-26.9, adult; R53.81 Other malaise; Z79.84 Long term (current) use of oral hypoglycemic drugs; Z87.891 Personal history of nicotine dependence
CPT/HCPCS: 36415; 70450; 71045; 80048; 80053; 80076; 80202; 81001; 82140; 82570; 82962; 83605; 83735; 84100; 84484; 84540; 85025; 85610; 85730; 86850; 86900; 86901; 86920; 86922; 87040; 87077; 87086; 87186; 87426; 93005; 94640; 97110; 97116; 97162; 97166; 97530; 97535; 97802; 97803; 99285; J7030; J7040; J7050; J7120; P9016; P9612; A4216; J2405; J2916

== ENCOUNTER → 2022-12-18 | Outpatient (CLI) | payer MEDICARE, MEDICAID, SELFPAY ==
[2022-12-18 14:53] LABS: Erythrocyte Sedimentation Rate 24 mm/hr (0-30)
[2022-12-18 14:54] LABS: Absolute Lymphocyte Count 1.27 X10^3/uL (0.83-4.51); Absolute Neutrophil Count 9.1 X10^3/uL (2.0-7.7); Basophil# 0.12 X10^3/uL; Eosinophil# 0.48 X10^3/uL; Eosinophils% 3.8 % (0-5); Hematocrit 27.1 % (37-47); Hemoglobin 8.3 g/dL (12.0-15.0); Lymphocyte # 1.27 X10^3/ul (0.83-4.51); Lymphocyte % 10.1 % (19-41); Mean Corp Hgb Conc 30.6 g/dL (32-36); Mean Corpuscular Hgb 28.1 pg (27.0-32.0); Mean Corpuscular Volume 91.9 fL (81-99); Mean Platelet Vol. 10.1 fl (6.2-12.0); Monocyte# 1.53 X10^3/uL; Monocyte% 12.1 % (0-10); NRBC Flagged by Analyzer 0 % (0-5); Neutrophil # 9.14 X10^3/uL (2.7-7.7); Neutrophil % 72.4 % (47-70); POSITIVE DIFFERENTIAL YES; Platelet Count 239 K/mm3 (150-450); RBC Distribution Width CV 19.2 % (11.6-14.6); RBC Distribution Width SD 64.2 fl (35.1-43.9); Red Blood Count 2.95 M/mm3 (4.2-5.4); White Blood Count 12.6 K/mm3 (4.4-11.0)
[2022-12-18 14:57] LABS: Differential Indicated SCAN CRITERIA MET
[2022-12-18 14:58] LABS: International Normalized Ratio 1.5; Prothrombin Time (Protime)PT. 17.3 SECONDS (11.7-14.9)
[2022-12-18 15:32] LABS: ALB/GLOB Ratio 0.6 RATIO (0.9-2.4); AST(SGOT) 20 U/L (15-37); Alanine Aminotransfer ALT/SGPT 19 U/L (13-56); Albumin, Serum 2.1 g/dL (3.2-5.0); Alkaline Phosphatase 97 U/L (45-117); Anion Gap 7 (5-15); BUN 28 mg/dL (7-18); Calcium,Total 8.8 mg/dL (8.5-10.1); Chloride 109 mmol/L (98-107); Creatinine, Serum 2.16 mg/dL (0.55-1.02); EST Glomerular Filtration Rate 24 mL/min (>60); Est Glom Filt Rate - Afr Amer 29 mL/min (>60); Globulin 3.8 g/dL (2.2-4.2); Glucose 154 mg/dL (74-106); LDH 288 U/L (84-246); Protein, Total 5.9 g/dL (6.4-8.2); Sodium Level 142 mmol/L (136-145)
[2022-12-18 16:13] LABS: Differential Comment SCANNED
[2022-12-19 13:22] LABS: Pathologist Review Reviewed
== END | disposition home or self-care (01) ==
LOC: LAB 14:11
PROVIDERS: PCP Family Medicine; Visit Provider Internal Medicine Gastroenterology
DX: K74.60 Unspecified cirrhosis of liver (principal)
CPT/HCPCS: 36415; 80053; 82140; 83615; 85025; 85610; 85652; 86140

== ENCOUNTER 2022-12-31 16:05 | Inpatient (IN) | payer MEDICARE, MEDICAID, SELFPAY ==
[2022-12-31 16:06] VITALS: BP 161/53; PULSE 70; RESP 19; TEMP 36.4; O2SAT 99
[2022-12-31 17:11] VITALS: PULSE 72
--- NOTE | 2022-12-31 17:17 | NURSING ---
Called [facility], requested packet with pt information, med rec. Spoke with Bozena- gave fax number.
[2022-12-31 17:28] LABS: Absolute Lymphocyte Count 1.37 X10^3/uL (0.83-4.51); Absolute Neutrophil Count 8.1 X10^3/uL (2.0-7.7); Basophil# 0.17 X10^3/uL; Basophil% 1.4 % (0-1); Eosinophil# 1.26 X10^3/uL; Eosinophils% 10.1 % (0-5); Hematocrit 29.2 % (37-47); Lymphocyte # 1.37 X10^3/ul (0.83-4.51); Mean Corp Hgb Conc 30.8 g/dL (32-36); Mean Corpuscular Hgb 28.8 pg (27.0-32.0); Mean Corpuscular Volume 93.6 fL (81-99); Monocyte# 1.44 X10^3/uL; Monocyte% 11.6 % (0-10); NRBC Flagged by Analyzer 0 % (0-5); Neutrophil # 8.12 X10^3/uL (2.7-7.7); Neutrophil % 65.3 % (47-70); Platelet Count 178 K/mm3 (150-450); RBC Distribution Width CV 18.9 % (11.6-14.6); RBC Distribution Width SD 63.7 fl (35.1-43.9); Red Blood Count 3.12 M/mm3 (4.2-5.4); White Blood Count 12.4 K/mm3 (4.4-11.0)
[2022-12-31 17:43] LABS: AST(SGOT) 36 U/L (15-37); Alanine Aminotransfer ALT/SGPT 27 U/L (13-56); Albumin, Serum 1.9 g/dL (3.2-5.0); Alkaline Phosphatase 110 U/L (45-117); Anion Gap 5 (5-15); BUN 25 mg/dL (7-18); BUN/Creat Ratio 12.1 RATIO (10-20); Bilirubin, Direct 0.24 mg/dL (0.00-0.30); Calcium,Total 8.7 mg/dL (8.5-10.1); Chloride 106 mmol/L (98-107); Creatinine, Serum 2.07 mg/dL (0.55-1.02); EST Glomerular Filtration Rate 25 mL/min (>60); Est Glom Filt Rate - Afr Amer 30 mL/min (>60); Globulin 3.9 g/dL (2.2-4.2); Glucose 163 mg/dL (74-106); Potassium 3.9 mmol/L (3.5-5.1); Protein, Total 5.8 g/dL (6.4-8.2); Sodium Level 145 mmol/L (136-145)
[2022-12-31 17:46] LABS: Bacteria 0 SEEN /hpf (None Seen); Mucous, Urine 0 SEEN /hpf (<or=2+); Red Blood Cells-Urine 0 SEEN /hpf (0-5)
[2022-12-31 18:04] LABS: Color, Urine Yellow (Yellow); Glucose, Dipstick Normal (Normal); Ketone-Dipstick Negative (Negative); Leukocyte Esterase-Dipstick 100 /ul (Negative); Nitrite-Dipstick Negative (Negative); Occult Blood-Urine Negative /ul (Negative); Protein-Dipstick 30 mg/dl (Negative); Urine Bilirubin Dipstick Negative (Negative); Urine Clarity Sl. Cloudy (Clear); Urine Urobilinogen Normal (Normal)
[2022-12-31 18:18] LABS: Squamous Epithelial Cells - UA 5-10 SEEN /hpf (5-10); White Blood Cells 0-5 SEEN /hpf (0-5)
--- NOTE | 2022-12-31 18:22 | CON.PCM.GI_ITS ---
HPI Consult Data Date of Consult: 12/31/22 HPI Narrative Reason for Consultation: Hepatic encephalopathy HPI Narrative: MICHAEL HENLEY, is a 72 F who presents from the office after being seen today by my nurse practitioner. She was having worsening confusion and was sent to the ED for evaluation. Her last ammonia was 106 even though she has been compliant with her lactulose. She has a history of Núñez cirrhosis and frequent decompensated liver disease secondary to metabolic encephalopathy.? She has a past medical history of Núñez cirrhosis secondary to type 2 diabetes and obesity.? Her cirrhosis and complicated by portal vein thrombosis, splenic vein thrombosis, esophageal varices, ascites, encephalopathy.? She presented to the emergency room with altered mental status. ?She she went to [facility] for a TIPS procedure.? Complications involving the TIPS procedure included worsening encephalopathy.? She has still had ascites despite having the TIPS procedure.? She has not had a paracentesis since having the TIPS placed.? When she was admitted to the hospital she was discovered to have severe hypoalbuminemia, hepatic encephalopathy ? She does not take Xifaxan and takes lactulose 3 times a day as per family.? She does not know if she has any problems with hypomagnesemia, hypokalemia as causes of her worsening encephalopathy.? She does notice she has been anemic and thrombocytopenic.? She has not received blood transfusions or platelet transfusions. [facility] Medical History (Updated 12/31/22 @ 15:55 by Cecilia Fuller PARTS SALES REPRESENTATIVE, PARTS SALES REPRESENTATIVE-C) Abdominal pain Anemia Ascites Asthma Cirrhosis Cirrhosis COPD (chronic obstructive pulmonary disease) Depressive disorder Diabetes mellitus GERD (gastroesophageal reflux disease) Hepatic encephalopathy Hernia history diagnostic hysteroscopy history thrombendarterectomy neck Hypertension Osteoarthrosis Portal vein thrombosis Rectus sheath hematoma Splenic vein thrombosis Thrombocytopenia Home Medications atorvastatin 40 mg tablet (Lipitor) 40 mg PO QHS cholesterol 02/09/22 [History Last Taken 07/17/22] labetalol 100 mg tablet 50 mg PO BID blood pressure 05/26/22 [History Last Taken 07/17/22] polysaccharide iron complex 150 mg iron capsule (Ferrex) 150 mg PO DAILYCM #90 caps 05/28/22 [Rx Last Taken Unknown] lactulose 10 gram/15 mL oral solution 30 ml PO 4X/DAY liver 10/16/22 [History Last Taken Unknown] ondansetron 4 mg disintegrating tablet 4 mg PO Q6H PRN PRN nausea/vomiting 10/16/22 [History Last Taken Unknown] spironolactone 25 mg tablet 25 mg PO DAILY liver #30 tabs 10/19/22 [Rx Last Taken Unknown] albuterol sulfate 90 mcg/actuation aerosol inhaler 2 puff inhalation Q4H PRN SOB 11/20/22 [History Last Taken Unknown] bimatoprost 0.01 % eye drops (Lumigan) 1 drp LEFT EYE DAILY GLAUCOMA 11/20/22 [History Last Taken Unknown] glimepiride 4 mg tablet 4 mg PO BREAKFAST diabetes 11/20/22 [History Last Taken Unknown] pantoprazole 40 mg tablet,delayed release 40 mg PO DAILY GERD 11/20/22 [History Last Taken Unknown] torsemide 20 mg tablet 20 mg PO DAILY WATER PILL 11/20/22 [History Last Taken Unknown] acetaminophen 325 mg tablet (Tylenol) 650 mg PO Q8H PRN Pain 1-10 Or Fever #0 tabs 12/01/22 [Rx Last Taken Unknown] potassium chloride 20 mEq tablet,extended release(part/cryst) (Klor-Con M) 20 meq PO BIDCM #0 tabs 12/01/22 [Rx Last Taken Unknown] rifaximin 550 mg tablet (Xifaxan) 550 mg PO BID #0 tabs 12/01/22 [Rx Last Taken Unknown] sodium bicarbonate 650 mg tablet 1,300 mg PO TID #0 tabs 12/01/22 [Rx Last Taken Unknown] Allergy/AdvReac Type Severity Reaction Status Date / Time suture Allergy Mild rash/ Verified 12/31/22 16:10 wound dehisence amoxicillin Allergy Unknown Verified 12/31/22 16:10 azithromycin Allergy Shortness Verified 12/31/22 16:10 of breath celecoxib [From Celebrex] Allergy Other Verified 12/31/22 16:10 ciprofloxacin HCl Allergy Shortness Verified 12/31/22 16:10 [From Cipro] of breath cortisone Allergy Swelling Verified 12/31/22 16:10 doxycycline Allergy Shortness Verified 12/31/22 16:10 of breath erythromycin base Allergy Unknown Verified 12/31/22 16:10 fexofenadine [From Ashlee] Allergy Unknown Verified 12/31/22 16:10 ibuprofen Allergy Shortness Verified 12/31/22 16:10 of breath Iodinated Contrast Media Allergy Shortness Verified 12/31/22 16:10 [DYEE] of breath iodine Allergy Shortness Verified 12/31/22 16:10 of breath levofloxacin [From Levaquin] Allergy Shortness Verified 12/31/22 16:10 of breath lorazepam [From Ativan] Allergy Shortness Verified 12/31/22 16:10 of breath nitrofurantoin Allergy Shortness Verified 12/31/22 16:10 macrocrystalline of breath [From Macrobid] Penicillins Allergy Shortness Verified 12/31/22 16:10 of breath rofecoxib [From Vioxx] Allergy Unknown Verified 12/31/22 16:10 Sulfa (Sulfonamide Allergy Shortness Verified 12/31/22 16:10 Antibiotics) of breath sulfamethoxazole Allergy Shortness Verified 12/31/22 16:10 [From Bactrim] of breath trimethoprim [From Bactrim] Allergy Shortness Verified 12/31/22 16:10 of breath amlodipine [From Norvasc] AdvReac Upset Verified 12/31/22 16:10 Stomach MISC BP MED Allergy Shortness Uncoded 12/31/22 16:10 of breath Family History (Reviewed 12/31/22 @ 15:25 by Cecilia Fuller PARTS SALES REPRESENTATIVE, PARTS SALES REPRESENTATIVE-C) Mother Heart disease Brother Heart disease Surgical History (Reviewed 12/31/22 @ 15:25 by Cecilia Fuller PARTS SALES REPRESENTATIVE, PARTS SALES REPRESENTATIVE-C) History of bilateral salpingo-oophorectomy History of endarterectomy History of laparoscopic cholecystectomy History of oral surgery S/P TIPS (transjugular intrahepatic portosystemic shunt) Social History (Reviewed 12/31/22 @ 15:25 by Cecilia Fuller PARTS SALES REPRESENTATIVE, PARTS SALES REPRESENTATIVE-C) household members: spouse Smoking Status: Former smoker alcohol intake: never substance use type: does not use ROS ROS Narrative Negative except above Physical Exam Narrative Alert awake, no obvious distress s1s2 no murmurs lungs clear abdomen soft no edema Lab / Micro Data Result Diagrams: 12/31/22 17:10 12/31/22 17:10 Labs: Laboratory Results - last 24 hr 12/31/22 17:10: WBC 12.4 H, RBC 3.12 L, Hgb 9.0 L, Hct 29.2 L, MCV 93.6, MCH 28.8, MCHC 30.8 L, RDW Std Deviation 63.7 H, RDW Coeff of [place] 18.9 H, Plt Count 178, MPV 11.0, Immature Gran % (Auto) 0.600, Neut % (Auto) 65.3, Lymph % (Auto) 11.0 L, [place] % (Auto) 11.6 H, Eos % (Auto) 10.1 H, Baso % (Auto) 1.4 H, Absolute Neuts (auto) 8.1 H, Absolute Lymphs (auto) 1.37, Nucleated RBC % 0 12/31/22 17:10: Sodium 145, Potassium 3.9, Chloride 106, Carbon Dioxide 34.0 H, Anion Gap 5, BUN 25 H, Creatinine 2.07 H, Est GFR (MDRD) Af Amer 30 L, Est GFR (MDRD) Non-Af 25 L, BUN/Creatinine Ratio 12.1, Glucose 163 H, Calcium 8.7, Total Bilirubin 0.60, Direct Bilirubin 0.24, AST 36, ALT 27, Alkaline Phosphatase 110, Total Protein 5.8 L, Albumin 1.9 L, Globulin 3.9 12/31/22 17:10: Ammonia 135.0 H 12/31/22 17:30: Urine Color Yellow, Urine Clarity Sl. Cloudy, Urine pH 5.0, Ur Specific [place] 1.010, Urine Protein 30 H, Urine Glucose (UA) Normal, Urine Ketones Negative, Urine Occult Blood Negative, Urine Nitrite Negative, Urine Bi lirubin Negative, Urine Urobilinogen Normal, Ur Leukocyte Esterase 100 H, Urine RBC 0 SEEN, Urine WBC 0-5 SEEN, Ur Squamous Epith Cells 5-10 SEEN, Urine Bacteria 0 SEEN, Urine Mucus 0 SEEN Assessment & Plan Assessment/Plan (1) Cirrhosis: PLAN: Núñez cirrhosis not on transplant list. Her current MELD is 14 and she is a child Ortiz class C due to renal failure and hepatic encephalopathy. She is status post TIPS for refractory and recalcitrant ascites with acute kidney injury likely secondary to diuretics and diarrhea causing volume loss. Patient is noncompliant with medicines and is not on Xifaxan as an outpatient. Agree with lactulose 20 cc every 4 hours. Also recommend Xifaxan 550 milligrams twice a day, Flagyl 500 mg p.o. 3 times daily and azithromycin 1 g orally x5 days. She can get an NG tube because she has a TIPS procedure therefore she does not have any varices. (2) Acute hepatic encephalopathy: PLAN: Charges/Coding Visit Charges Inpatient E&M: 51679 Init Hosp L3
--- NOTE | 2022-12-31 18:53 | EX.ED.DYSGE1 ---
HPI History of Present Illness Chief Complaint: Confusion [facility] Medical History Abdominal pain Anemia Ascites Asthma Cirrhosis Cirrhosis COPD (chronic obstructive pulmonary disease) Depressive disorder Diabetes mellitus GERD (gastroesophageal reflux disease) Hepatic encephalopathy Hernia history diagnostic hysteroscopy history thrombendarterectomy neck Hypertension Osteoarthrosis Portal vein thrombosis Rectus sheath hematoma Splenic vein thrombosis Thrombocytopenia Home Medications atorvastatin 40 mg tablet (Lipitor) 40 mg PO QHS cholesterol 02/09/22 [History Last Taken 07/17/22] labetalol 100 mg tablet 50 mg PO BID blood pressure 05/26/22 [History Last Taken 07/17/22] lactulose 10 gram/15 mL oral solution 30 ml PO 4X/DAY liver 10/16/22 [History Last Taken Unknown] ondansetron 4 mg disintegrating tablet 4 mg PO Q6H PRN PRN nausea/vomiting 10/16/22 [History Last Taken Unknown] spironolactone 25 mg tablet 25 mg PO DAILY liver #30 tabs 10/19/22 [Rx Last Taken Unknown] albuterol sulfate 90 mcg/actuation aerosol inhaler 2 puff inhalation Q4H PRN SOB 11/20/22 [History Last Taken Unknown] bimatoprost 0.01 % eye drops (Lumigan) 1 drp LEFT EYE DAILY GLAUCOMA 11/20/22 [History Last Taken Unknown] glimepiride 4 mg tablet 4 mg PO BREAKFAST diabetes 11/20/22 [History Last Taken Unknown] pantoprazole 40 mg tablet,delayed release 40 mg PO DAILY GERD 11/20/22 [History Last Taken Unknown] torsemide 20 mg tablet 20 mg PO BID WATER PILL 11/20/22 [History Last Taken Unknown] acetaminophen 325 mg tablet (Tylenol) 500 mg PO Q8H PRN Pain 1-10 Or Fever 12/31/22 [History Last Taken Unknown] glipizide 10 mg tablet 20 mg PO DAILY Check with primary doctor 12/31/22 [History Last Taken Unknown] latanoprost 0.005 % eye drops 1 drp LEFT EYE QPM Check with primary doctor 12/31/22 [History Last Taken Unknown] omeprazole 20 mg capsule,delayed release 20 mg PO DAILY Check with primary doctor 12/31/22 [History Last Taken Unknown] polysaccharide iron complex 150 mg iron capsule (Ferrex) 150 mg PO DAILY Check with primary doctor 12/31/22 [History Last Taken Unknown] polysaccharide iron complex 150 mg iron capsule (Ferrex) 150 mg PO TID Check with primary doctor 12/31/22 [History Last Taken Unknown] potassium chloride 20 mEq tablet,extended release(part/cryst) (Klor-Con M) 20 meq PO BIDCM Check with primary doctor 12/31/22 [History Last Taken Unknown] rifaximin 550 mg tablet (Xifaxan) 550 mg PO BID Check with primary doctor 12/31/22 [History Last Taken Unknown] sodium bicarbonate 650 mg tablet 1,300 mg PO TID Check with primary doctor 12/31/22 [History Last Taken Unknown] Allergy/AdvReac Type Severity Reaction Status Date / Time suture Allergy Mild rash/ Verified 12/31/22 16:10 wound dehisence amoxicillin Allergy Unknown Verified 12/31/22 16:10 azithromycin Allergy Shortness Verified 12/31/22 16:10 of breath celecoxib [From Celebrex] Allergy Other Verified 12/31/22 16:10 ciprofloxacin HCl Allergy Shortness Verified 12/31/22 16:10 [From Cipro] of breath cortisone Allergy Swelling Verified 12/31/22 16:10 doxycycline Allergy Shortness Verified 12/31/22 16:10 of breath erythromycin base Allergy Unknown Verified 12/31/22 16:10 fexofenadine [From Ashlee] Allergy Unknown Verified 12/31/22 16:10 ibuprofen Allergy Shortness Verified 12/31/22 16:10 of breath Iodinated Contrast Media Allergy Shortness Verified 12/31/22 16:10 [DYEE] of breath iodine Allergy Shortness Verified 12/31/22 16:10 of breath levofloxacin [From Levaquin] Allergy Shortness Verified 12/31/22 16:10 of breath lorazepam [From Ativan] Allergy Shortness Verified 12/31/22 16:10 of breath nitrofurantoin Allergy Shortness Verified 12/31/22 16:10 macrocrystalline of breath [From Macrobid] Penicillins Allergy Shortness Verified 12/31/22 16:10 of breath rofecoxib [From Vioxx] Allergy Unknown Verified 12/31/22 16:10 Sulfa (Sulfonamide Allergy Shortness Verified 12/31/22 16:10 Antibiotics) of breath sulfamethoxazole Allergy Shortness Verified 12/31/22 16:10 [From Bactrim] of breath trimethoprim [From Bactrim] Allergy Shortness Verified 12/31/22 16:10 of breath amlodipine [From Norvasc] AdvReac Upset Verified 12/31/22 16:10 Stomach MISC BP MED Allergy Shortness Uncoded 12/31/22 16:10 of breath Family History Mother Heart disease Brother Heart disease Surgical History History of bilateral salpingo-oophorectomy History of endarterectomy History of laparoscopic cholecystectomy History of oral surgery S/P TIPS (transjugular intrahepatic portosystemic shunt) Social History household members: spouse Smoking Status: Former smoker alcohol intake: never substance use type: does not use EXAM Physical Exam Const Vital Signs: 12/31/22 16:06 12/31/22 17:11 Temperature 97.6 F L Temperature Source Temporal Pulse Rate 70 72 Respiratory Rate 19 H Blood Pressure 161/53 H Blood Pressure Mean 89 Pulse Ox 99 Oxygen Delivery Method Nasal Cannula Oxygen Flow Rate (L/min) 2 Positive well nourished General Appearance ED: NAD HEENT Reports moist mucous membranes Eyes PERRL and EOMs intact bilaterally Resp normal respiratory effort and clear to auscultation bilaterally Cardio regular rate and regular rhythm GI normal to inspection, nondistended, normoactive bowel sounds Neuro CN's II-XII intact bilaterally Sensorium / Orientation: alert Motor Exam: general weakness Psych Psych Narrative: Confused alert to self Skin no rashes or lesions noted MDM MDM MDM Narrative Medical decision making narrative: Patient presenting with increased confusion. She saw Cecilia Fuller prior to coming over to the ER. She was acting confused so she was referred here. Ammonia level has been elevated. On 12/29/2022 it was 106. Patient has history of hepatic encephalopathy secondary to elevated ammonia's. Her family states she supposed to be taking 30 mg p.o. 4 times daily. They state that at the facility she is at the lactulose appears to be thin and more clear than what they give at home. They state that at home this is more sticky and thick. They believe that they she is not getting the correct amount of lactulose. She is confused on exam but no focal neurologic deficits. He is oriented to self. CBC to assess white blood cell count, hemoglobin, platelets, differential. CMP to assess for liver function, renal function, electrolytes, glucose, anion gap. Lipase will be obtained as well. Urinalysis to assess for infection. CBC shows slight leukocytosis at 12.4. Hemoglobin 9.0 near baseline. Platelets 178. Creatinine 2.07 near baseline. Electrolytes fairly unremarkable. CO2 slightly elevated at 34. Glucose 163 without anion gap. AST, ALT, alk phos are all normal. Bilirubin is normal. Case was discussed with Dr. Gaming. He recommended placing an NG tube. He recommended placing the patient on Flagyl 500 mg 3 times daily, neomycin 1 g daily and azithromycin 1 g daily to sterilize her gut. Patient has received lactulose 20 cc every 2 hours. Family was amenable to this plan. Patient discussed with hospitalist for admission. Impression: 1. Hepatic encephalopathy 2. leukocytosis Lab Data Attestation: I reviewed the patient's lab results. Labs: Laboratory Results - last 24 hr 12/31/22 12/31/22 12/31/22 17:10 17:10 17:10 WBC 12.4 H RBC 3.12 L Hgb 9.0 L Hct 29.2 L MCV 93.6 MCH 28.8 MCHC 30.8 L RDW Std Deviation 63.7 H RDW Coeff of [place] 18.9 H Plt Count 178 MPV 11.0 Immature Gran % (Auto) 0.600 Neut % (Auto) 65.3 Lymph % (Auto) 11.0 L [place] % (Auto) 11.6 H Eos % (Auto) 10.1 H Baso % (Auto) 1.4 H Absolute Neuts (auto) 8.1 H Absolute Lymphs (auto) 1.37 Nucleated RBC % 0 Sodium 145 Potassium 3.9 Chloride 106 Carbon Dioxide 34.0 H Anion Gap 5 BUN 25 H Creatinine 2.07 H Est GFR (MDRD) Af Amer 30 L Est GFR (MDRD) Non-Af 25 L BUN/Creatinine Ratio 12.1 Glucose 163 H Calcium 8.7 Total Bilirubin 0.60 Direct Bilirubin 0.24 AST 36 ALT 27 Alkaline Phosphatase 110 Ammonia 135.0 H Total Protein 5.8 L Albumin 1.9 L Globulin 3.9 Urine Color Urine Clarity Urine pH Ur Specific [place] Urine Protein Urine Glucose (UA) Urine Ketones Urine Occult Blood Urine Nitrite Urine Bilirubin Urine Urobilinogen Ur Leukocyte Esterase Urine RBC Urine WBC Ur Squamous Epith Cells Urine Bacteria Urine Mucus 12/31/22 17:30 WBC RBC Hgb Hct MCV MCH MCHC RDW Std Deviation RDW Coeff of [place] Plt Count MPV Immature Gran % (Auto) Neut % (Auto) Lymph % (Auto) [place] % (Auto) Eos % (Auto) Baso % (Auto) Absolute Neuts (auto) Absolute Lymphs (auto) Nucleated RBC % Sodium Potassium Chloride Carbon Dioxide Anion Gap BUN Creatinine Est GFR (MDRD) Af Amer Est GFR (MDRD) Non-Af BUN/Creatinine Ratio Glucose Calcium Total Bilirubin Direct Bilirubin AST ALT Alkaline Phosphatase Ammonia Total Protein Albumin Globulin Urine Color Yellow Urine Clarity Sl. Cloudy Urine pH 5.0 Ur Specific [place] 1.010 Urine Protein 30 H Urine Glucose (UA) Normal Urine Ketones Negative Urine Occult Blood Negative Urine Nitrite Negative Urine Bilirubin Negative Urine Urobilinogen Normal Ur Leukocyte Esterase 100 H Urine RBC 0 SEEN Urine WBC 0-5 SEEN Ur Squamous Epith Cells 5-10 SEEN Urine Bacteria 0 SEEN Urine Mucus 0 SEEN Discharge Plan Disposition Disposition: Acute Care Hospital [facility] Discharge Date/Time: 12/31/22 21:26
[2022-12-31 19:17] VITALS: BMI 30.2
[2022-12-31] MEDS: Lactulose 20 GM/30 ML UDC NG (19:31)
--- NOTE | 2022-12-31 19:34 | PCM.HP.STD ---
HPI - General General Date of Admission: 12/31/22 Date of Service: 12/31/22 Chief Complaint: Elevated ammonia HPI Narrative MICHAEL HENLEY, is a 72 with history of type 2 diabetes mellitus, nonalcoholic liver cirrhosis, CKD stage III unclear subtype, history of hepatic encephalopathy status post TIPS who presented to [facility] 12/31/2022 at the urging of her outpatient GI office due to elevated ammonia of 106. She presented to the ED and had a white blood cell count of 12.4, hemoglobin of 9, platelet count of 178, bicarb of 34 with a BUN of 25 and creatinine 2.07 and an ammonia of 135. BP 163/71, pulse rate 64, 96% on room air and respiratory rate 15. ED physician spoke with Dr. Gaming who recommended NG placement and Flagyl 500 3 times daily, neomycin 1 g daily, azithromycin 1 g daily and lactulose 20 g every 2 hours. Hospitalist consulted for admission. Patient evaluated at bedside with family. Patient somewhat confused, overall cooperative. Reported inconsistent ROS, possibly some nausea, possibly some general abdominal discomfort, no fevers or chills. [facility] Medical History (Updated 12/31/22 @ 15:55 by Cecilia Fuller REMARKETING MANAGER, REMARKETING MANAGER-C) Abdominal pain Anemia Ascites Asthma Cirrhosis Cirrhosis COPD (chronic obstructive pulmonary disease) Depressive disorder Diabetes mellitus GERD (gastroesophageal reflux disease) Hepatic encephalopathy Hernia history diagnostic hysteroscopy history thrombendarterectomy neck Hypertension Osteoarthrosis Portal vein thrombosis Rectus sheath hematoma Splenic vein thrombosis Thrombocytopenia Home Medications atorvastatin 40 mg tablet (Lipitor) 40 mg PO QHS cholesterol 02/09/22 [History Last Taken 07/17/22] labetalol 100 mg tablet 50 mg PO BID blood pressure 05/26/22 [History Last Taken 07/17/22] polysaccharide iron complex 150 mg iron capsule (Ferrex) 150 mg PO DAILYCM #90 caps 05/28/22 [Rx Last Taken Unknown] lactulose 10 gram/15 mL oral solution 30 ml PO 4X/DAY liver 10/16/22 [History Last Taken Unknown] ondansetron 4 mg disintegrating tablet 4 mg PO Q6H PRN PRN nausea/vomiting 10/16/22 [History Last Taken Unknown] spironolactone 25 mg tablet 25 mg PO DAILY liver #30 tabs 10/19/22 [Rx Last Taken Unknown] albuterol sulfate 90 mcg/actuation aerosol inhaler 2 puff inhalation Q4H PRN SOB 11/20/22 [History Last Taken Unknown] bimatoprost 0.01 % eye drops (Lumigan) 1 drp LEFT EYE DAILY GLAUCOMA 11/20/22 [History Last Taken Unknown] glimepiride 4 mg tablet 4 mg PO BREAKFAST diabetes 11/20/22 [History Last Taken Unknown] pantoprazole 40 mg tablet,delayed release 40 mg PO DAILY GERD 11/20/22 [History Last Taken Unknown] torsemide 20 mg tablet 20 mg PO DAILY WATER PILL 11/20/22 [History Last Taken Unknown] acetaminophen 325 mg tablet (Tylenol) 650 mg PO Q8H PRN Pain 1-10 Or Fever #0 tabs 12/01/22 [Rx Last Taken Unknown] potassium chloride 20 mEq tablet,extended release(part/cryst) (Klor-Con M) 20 meq PO BIDCM #0 tabs 12/01/22 [Rx Last Taken Unknown] rifaximin 550 mg tablet (Xifaxan) 550 mg PO BID #0 tabs 12/01/22 [Rx Last Taken Unknown] sodium bicarbonate 650 mg tablet 1,300 mg PO TID #0 tabs 12/01/22 [Rx Last Taken Unknown] Allergy/AdvReac Type Severity Reaction Status Date / Time suture Allergy Mild rash/ Verified 12/31/22 16:10 wound dehisence amoxicillin Allergy Unknown Verified 12/31/22 16:10 azithromycin Allergy Shortness Verified 12/31/22 16:10 of breath celecoxib [From Celebrex] Allergy Other Verified 12/31/22 16:10 ciprofloxacin HCl Allergy Shortness Verified 12/31/22 16:10 [From Cipro] of breath cortisone Allergy Swelling Verified 12/31/22 16:10 doxycycline Allergy Shortness Verified 12/31/22 16:10 of breath erythromycin base Allergy Unknown Verified 12/31/22 16:10 fexofenadine [From Ashlee] Allergy Unknown Verified 12/31/22 16:10 ibuprofen Allergy Shortness Verified 12/31/22 16:10 of breath Iodinated Contrast Media Allergy Shortness Verified 12/31/22 16:10 [DYEE] of breath iodine Allergy Shortness Verified 12/31/22 16:10 of breath levofloxacin [From Levaquin] Allergy Shortness Verified 12/31/22 16:10 of breath lorazepam [From Ativan] Allergy Shortness Verified 12/31/22 16:10 of breath nitrofurantoin Allergy Shortness Verified 12/31/22 16:10 macrocrystalline of breath [From Macrobid] Penicillins Allergy Shortness Verified 12/31/22 16:10 of breath rofecoxib [From Vioxx] Allergy Unknown Verified 12/31/22 16:10 Sulfa (Sulfonamide Allergy Shortness Verified 12/31/22 16:10 Antibiotics) of breath sulfamethoxazole Allergy Shortness Verified 12/31/22 16:10 [From Bactrim] of breath trimethoprim [From Bactrim] Allergy Shortness Verified 12/31/22 16:10 of breath amlodipine [From Norvasc] AdvReac Upset Verified 12/31/22 16:10 Stomach MISC BP MED Allergy Shortness Uncoded 12/31/22 16:10 of breath Family History Mother Heart disease Brother Heart disease Surgical History History of bilateral salpingo-oophorectomy History of endarterectomy History of laparoscopic cholecystectomy History of oral surgery S/P TIPS (transjugular intrahepatic portosystemic shunt) Social History household members: spouse Smoking Status: Former smoker alcohol intake: never substance use type: does not use ROS ROS Narrative Unable to obtain full ROS due to patient's confusion but denied fevers or chills, possibly some nausea, possibly some abdominal pain, possibly some leg swelling Vital Signs Vital Signs Vital Signs: 12/31/22 16:06 12/31/22 17:11 Temperature 97.6 F L Temperature Source Temporal Pulse Rate 70 72 Respiratory Rate 19 H Blood Pressure 161/53 H Blood Pressure Mean 89 Pulse Ox 99 Oxygen Delivery Method Nasal Cannula Oxygen Flow Rate (L/min) 2 Weight Weight: 69.9 kg Body Mass Index (BMI) 30.2 Physical Exam Narrative General: Alert, oriented to place but not time and often would get confused in the middle of a sentence HEENT: Atraumatic, normocephalic Eyes: Anicteric, normal conjunctiva, extraocular movements grossly intact Neck: Supple Respiratory: No rhonchi or wheezes, normal respiratory effort Cardiovascular: Regular rate GI: Soft, was not tender on palpation and no rebound, guarding, rigidity Extremities: Had some nonpitting edema but no pitting edema Musculoskeletal: Moving all extremities Neuro: No overt focal neurological deficits Skin: No rashes appreciated Psych: Attempted to be cooperative Results Lab / Micro Data Result Diagrams: 12/31/22 17:10 12/31/22 17:10 Labs: Laboratory Results - last 24 hr 12/31/22 17:10: WBC 12.4 H, RBC 3.12 L, Hgb 9.0 L, Hct 29.2 L, MCV 93.6, MCH 28.8, MCHC 30.8 L, RDW Std Deviation 63.7 H, RDW Coeff of [place] 18.9 H, Plt Count 178, MPV 11.0, Immature Gran % (Auto) 0.600, Neut % (Auto) 65.3, Lymph % (Auto) 11.0 L, [place] % (Auto) 11.6 H, Eos % (Auto) 10.1 H, Baso % (Auto) 1.4 H, Absolute Neuts (auto) 8.1 H, Absolute Lymphs (auto) 1.37, Nucleated RBC % 0 12/31/22 17:10: Sodium 145, Potassium 3.9, Chloride 106, Carbon Dioxide 34.0 H, Anion Gap 5, BUN 25 H, Creatinine 2.07 H, Est GFR (MDRD) Af Amer 30 L, Est GFR (MDRD) Non-Af 25 L, BUN/Creatinine Ratio 12.1, Glucose 163 H, Calcium 8.7, Total Bilirubin 0.60, Direct Bilirubin 0.24, AST 36, ALT 27, Alkaline Phosphatase 110, Total Protein 5.8 L, Albumin 1.9 L, Globulin 3.9 12/31/22 17:10: Ammonia 135.0 H 12/31/22 17:30: Urine Color Yellow, Urine Clarity Sl. Cloudy, Urine pH 5.0, Ur Specific [place] 1.010, Urine Protein 30 H, Urine Glucose (UA) Normal, Urine Ketones Negative, Urine Occult Blood Negative, Urine Nitrite Negative, Urine Bilirubin Negative, Urine Urobilinogen Normal, Ur Leukocyte Esterase 100 H, Urine RBC 0 SEEN, Urine WBC 0-5 SEEN, Ur Squamous Epith Cells 5-10 SEEN, Urine Bacteria 0 SEEN, Urine Mucus 0 SEEN Assessment & Plan Assessment/Plan (1) Hepatic encephalopathy: PLAN: Plan #Hepatic encephalopathy in the setting of Núñez cirrhosis with history of TIPS procedure -Ammonia 135 in the ED -GI consulted and recommended NG tube placement with lactulose 20 g every 2 hours, Flagyl 500 mg 3 times daily, neomycin 1 g daily, azithromycin 1 g daily, orders placed. -Appears euvolemic and kidney function is better than baseline, given she is going to have NG tube with frequent lactulose that will induce diarrhea will hold dose of torsemide and spironolactone and monitor I's and O's and optimal timing to resume home diuretics -Unclear reason for decompensation, UA unremarkable, has had slight cough per family, will check respiratory panel and COVID though laboratory with no signs or symptoms of infection #CKD stage III unclear subtype -Creatinine actually somewhat better than it has been recently -Given that she is not eating well and she is going to have an NG tube with frequent lactulose to induce diarrhea will hold on torsemide and spironolactone at this time but will need to be monitored closely for resumption #Type 2 diabetes mellitus -Hold home oral hypoglycemic -Sliding scale insulin and glucose checks #History of COPD -Albuterol as needed #DVT ppx: Heparin subcu Ashley Yi MD Time spent in the patient's overall evaluation,decision-making process, review of diagnostic data, adjustment of management, discussion with other providers, nursing nursing and ancillary staff involved in patient's care documentation, 60 minutes Charges/Coding Visit Charges Inpatient E&M: 78958 Init Hosp L2
[2022-12-31] MEDS: metroNIDAZOLE 500 MG Tablet PO ×2 (19:39→22:10)
[2022-12-31] MEDS: Azithromycin 250 MG Tablet 1000 MG PO (19:39)
[2022-12-31 19:49] VITALS: BP 142/79; PULSE 84; RESP 16; TEMP 36.3; O2SAT 96
--- NOTE | 2022-12-31 19:51 | ED.RN ---
FAMILY IS CONCERNED ABOUT THE PT HAVING A NG PLACED WHEN SHE IS WILLING TO TAKE ALL THE MEDICATIONS NO PROBLEM. FAMILY ASKED IF THE NG MAKES THE MEDICINE GO TO ANOTHER PLACE THAT SWALLOWING IT DOESN'T. AFTER DISCUSSION THE FAMILY WOULD LIKE TO HOLD OFF ON THE NG AND SEE HOW THE PT DOES WITH TAKING THE MEDS BY MOUTH. FAMILY IS A AWARE THE DR FRIEND MAY STILL WANT IT LATER BUT THEY FEEL BETTER HOLDING OFF
[2022-12-31 21:38] VITALS: BMI 30.1
[2022-12-31 21:49] VITALS: BP 173/60; PULSE 82; RESP 18; TEMP 36.8; O2SAT 93
[2022-12-31] MEDS: Lactulose 20 GM/30 ML UDC PO ×2 (22:09→23:45)
[2022-12-31] MEDS: Labetalol 100 MG Tablet 50 MG PO (22:10)
[2022-12-31] MEDS: Heparin Injection (Vial) 5,000 UNIT/ML VIAL 5000 UNIT SC (22:10)
[2022-12-31] MEDS: Atorvastatin Calcium 40 MG Tablet PO (22:10)
--- NOTE | 2022-12-31 22:17 | EKG12_ITS ---
Test Reason : CP Blood Pressure : / mmHG Vent. Rate : 084 BPM Atrial Rate : 084 BPM P-R Int : 140 ms QRS Dur : 138 ms QT Int : 432 ms P-R-T Axes : 036 -89 056 degrees QTc Int : 510 ms Normal sinus rhythm Right bundle branch block Left anterior fascicular block Bifascicular block Septal infarct (cited on or before 20-NOV-2022) Abnormal ECG When compared with ECG of 20-NOV-2022 15:27, Questionable change in initial forces of Septal leads Confirmed by JERROD ROWELL, JUNO ([id number]), publications editor EDDIE JEAN ([id number]) on 01/02/2023 2:07:25 PM Referred By: KELLI Confirmed By:LEE ELDER MD
[2022-12-31 22:20] VITALS: O2SAT 93
[2022-12-31 22:40] LABS: Bedside Glucose 117 mg/dL (74-106)
[2023-01-01] VITALS (11 sets, daily range): BP systolic 144–193; BP diastolic 50–69; PULSE 68–84; RESP 16–20; TEMP 36.2–37.2; O2SAT 77–100; BMI 28.8; BMI 28.6
--- NOTE | 2023-01-01 00:03 | NURSING ---
lab was called by this RN at 223 to alert of cardiac enzyme orders. Abigail in lab stated okay. time is 0003 and Jermain in lab called and stated he just now saw the orders and no one ever alerted him. labs being drawn at this time, will retime other enzymes.
[2023-01-01 01:31] LABS: Troponin-I HS 179 pg/mL (3.0-54.0)
--- NOTE | 2023-01-01 01:31 | NURSING ---
first troponin drawn at 0000 just resulted at this time. troponin is 179. notified
[2023-01-01] MEDS: Aspirin 325 MG Tablet PO (01:56)
[2023-01-01] MEDS: Lactulose 20 GM/30 ML UDC PO ×5 (01:56→16:51)
--- NOTE | 2023-01-01 02:01 | NURSING ---
pt denies further CP at this time
[2023-01-01] MEDS: Ondansetron 4 MG/2 ML Vial IV (02:04)
[2023-01-01] MEDS: 0.9% Saline Lock 10 ML Syringe IV (02:04)
[2023-01-01 02:22] LABS: Troponin-I HS 164 pg/mL (3.0-54.0)
[2023-01-01] MEDS: Heparin Injection (Vial) 5,000 UNIT/ML VIAL 5000 UNIT SC ×3 (04:48→21:50)
[2023-01-01] MEDS: metroNIDAZOLE 500 MG Tablet PO ×3 (04:49→21:50)
[2023-01-01 06:15] LABS: Bedside Glucose 101 mg/dL (74-106)
[2023-01-01 06:37] LABS: Absolute Lymphocyte Count 1.14 X10^3/uL (0.83-4.51); Absolute Neutrophil Count 5.3 X10^3/uL (2.0-7.7); Basophil# 0.12 X10^3/uL; Basophil% 1.5 % (0-1); Eosinophil# 0.93 X10^3/uL; Eosinophils% 11.2 % (0-5); Hematocrit 30.5 % (37-47); Hemoglobin 8.6 g/dL (12.0-15.0); Lymphocyte # 1.14 X10^3/ul (0.83-4.51); Lymphocyte % 13.8 % (19-41); Mean Corp Hgb Conc 28.2 g/dL (32-36); Mean Corpuscular Hgb 27.8 pg (27.0-32.0); Mean Corpuscular Volume 98.7 fL (81-99); Mean Platelet Vol. 11.4 fl (6.2-12.0); Monocyte# 0.75 X10^3/uL; Monocyte% 9.1 % (0-10); NRBC Flagged by Analyzer 0 % (0-5); Neutrophil # 5.29 X10^3/uL (2.7-7.7); Neutrophil % 63.9 % (47-70); POSITIVE MORPHOLOGY YES; Platelet Count 160 K/mm3 (150-450); RBC Distribution Width CV 18.9 % (11.6-14.6); RBC Distribution Width SD 67.7 fl (35.1-43.9); Red Blood Count 3.09 M/mm3 (4.2-5.4); White Blood Count 8.3 K/mm3 (4.4-11.0)
[2023-01-01 06:43] LABS: Differential Indicated SCAN CRITERIA MET
[2023-01-01 07:12] LABS: Anisocytosis 1+; Differential Comment SCANNED; Hypochromasia 1+
[2023-01-01 07:24] LABS: ALB/GLOB Ratio 0.5 RATIO (0.9-2.4); AST(SGOT) 51 U/L (15-37); Alanine Aminotransfer ALT/SGPT 26 U/L (13-56); Albumin, Serum 1.8 g/dL (3.2-5.0); Alkaline Phosphatase 97 U/L (45-117); Anion Gap 7 (5-15); BUN 26 mg/dL (7-18); BUN/Creat Ratio 11.9 RATIO (10-20); Calcium,Total 8.8 mg/dL (8.5-10.1); Chloride 112 mmol/L (98-107); Creatinine, Serum 2.18 mg/dL (0.55-1.02); EST Glomerular Filtration Rate 23 mL/min (>60); Est Glom Filt Rate - Afr Amer 28 mL/min (>60); Estimated Creatinine Clearance 16.26 ml/min; Globulin 3.6 g/dL (2.2-4.2); Glucose 147 mg/dL (74-106); Potassium 4.1 mmol/L (3.5-5.1); Protein, Total 5.4 g/dL (6.4-8.2); Sodium Level 149 mmol/L (136-145)
[2023-01-01 07:39] LABS: Troponin-I HS 171 pg/mL (3.0-54.0)
--- NOTE | 2023-01-01 08:51 | ECHOL_ITS ---
Version 2 Reason For Study: Chest Pain Procedure This was a limited 2D transthoracic echocardiogram. The study was technically difficult. Exam performed portable in patient room. Left Ventricle Normal LV size. The estimated ejection fraction is 70 %. Unable to assess diastolic dysfunction. No regional wall motion abnormalities noted. Right Ventricle Normal RV size. Normal systolic function. Atria The left atrium is mildly enlarged. Normal right atrium. No doppler evidence for ASD. Mitral Valve There is moderate to severe mitral annular calcification. There is no mitral valve stenosis. No mitral valve insufficiency. Tricuspid Valve There is no tricuspid stenosis. Trivial tricuspid valve insufficiency. Unable to estimate RV systolic pressure due to insufficient tricuspid regurgitant envelope. Aortic Valve Trisinus/trileaflet aortic valve. There is no aortic stenosis. No aortic valve insufficiency. Pulmonic Valve There is no pulmonic valvular stenosis. No pulmonic valve insufficiency. Great Vessels Normal aortic root. Pericardium/Pleural No pericardial effusion. MMode/2D Measurements & Calculations LVIDd: 4.5 cm IVSd: 1.5 cm LA dimension: 4.2 cm LVIDs: 2.7 cm LVPWd: 1.2 cm FS: 40.8 % LAV(MOD-sp4): 55.6 ml LA A4 area: 19.6 cm2 Doppler Measurements & Calculations Lat Peak E' Darin: 8.9 cm/sec Med Peak E' Darin: 7.6 cm/sec TR max darin: 353.0 cm/sec TR max P.8 mmHg ECHO/Echo, Limited Study Interpretation Summary The estimated ejection fraction is 70 %. Unable to assess diastolic dysfunction. The left atrium is mildly enlarged. Ordering Physician: Rafael Biggs Referring Physician: MD Sarah Josiah Performed By: Armando Edward RCS
[2023-01-01] MEDS: Pantoprazole Sodium 40 MG Tablet PO (10:05)
[2023-01-01] MEDS: Labetalol 100 MG Tablet 50 MG PO ×2 (10:05→21:50)
[2023-01-01] MEDS: Azithromycin 250 MG Tablet 1000 MG PO (10:06)
--- NOTE | 2023-01-01 10:12 | PCM.PN.HOSP ---
Subjective Subjective Alert with slow mentation Objective Data Objective Data Vital Signs: Vital Signs Temp Pulse Resp BP Pulse Ox O2 Del Method O2 Flow Rate 97.2 F L 78 16 155/53 H 98 Nasal Cannula 2 01/01/23 08:11 01/01/23 08:23 01/01/23 08:23 01/01/23 08:11 01/01/23 08:11 01/01/23 08:23 01/01/23 08:23 Oxygen Flow Rate (L/min) 2 Oxygen Delivery Method Nasal Cannula Weight: 145 lb 15.136 oz Body Mass Index (BMI) 28.6 Lab / Micro Data Result Diagrams: 01/01/23 06:25 01/01/23 06:25 Labs: Laboratory Results - last 24 hr 12/31/22 17:10: WBC 12.4 H, RBC 3.12 L, Hgb 9.0 L, Hct 29.2 L, MCV 93.6, MCH 28.8, MCHC 30.8 L, RDW Std Deviation 63.7 H, RDW Coeff of Jordan 18.9 H, Plt Count 178, MPV 11.0, Immature Gran % (Auto) 0.600, Neut % (Auto) 65.3, Lymph % (Auto) 11.0 L, [place] % (Auto) 11.6 H, Eos % (Auto) 10.1 H, Baso % (Auto) 1.4 H, Absolute Neuts (auto) 8.1 H, Absolute Lymphs (auto) 1.37, Nucleated RBC % 0 12/31/22 17:10: Sodium 145, Potassium 3.9, Chloride 106, Carbon Dioxide 34.0 H, Anion Gap 5, BUN 25 H, Creatinine 2.07 H, Est GFR (MDRD) Af Amer 30 L, Est GFR (MDRD) Non-Af 25 L, BUN/Creatinine Ratio 12.1, Glucose 163 H, Calcium 8.7, Total Bilirubin 0.60, Direct Bilirubin 0.24, AST 36, ALT 27, Alkaline Phosphatase 110, Total Protein 5.8 L, Albumin 1.9 L, Globulin 3.9 12/31/22 17:10: Ammonia 135.0 H 12/31/22 17:30: Urine Color Yellow, Urine Clarity Sl. Cloudy, Urine pH 5.0, Ur Specific [place] 1.010, Urine Protein 30 H, Urine Glucose (UA) Normal, Urine Ketones Negative, Urine Occult Blood Negative, Urine Nitrite Negative, Urine Bilirubin Negative, Urine Urobilinogen Normal, Ur Leukocyte Esterase 100 H, Urine RBC 0 SEEN, Urine WBC 0-5 SEEN, Ur Squamous Epith Cells 5-10 SEEN, Urine Bacteria 0 SEEN, Urine Mucus 0 SEEN 12/31/22 22:04: POC Glucose 117 H 01/01/23 00:00: Troponin I High Sens 179 H* 01/01/23 01:52: Troponin I High Sens 164 H* 01/01/23 04:48: POC Glucose 101 01/01/23 06:25: WBC 8.3, RBC 3.09 L, Hgb 8.6 L, Hct 30.5 L, MCV 98.7 D, MCH 27.8, MCHC 28.2 L D, RDW Std Deviation 67.7 H, RDW Coeff of [place] 18.9 H, Plt Count 160, MPV 11.4, Immature Gran % (Auto) 0.500, Neut % (Auto) 63.9, Lymph % (Auto) 13.8 L, [place] % (Auto) 9.1, Eos % (Auto) 11.2 H, Baso % (Auto) 1.5 H, Absolute Neuts (auto) 5.3, Absolute Lymphs (auto) 1.14, Nucleated RBC % 0, Differential Comment SCANNED, Hypochromasia 1+, Anisocytosis 1+ 01/01/23 06:25: Sodium 149 H, Potassium 4.1, Chloride 112 H, Carbon Dioxide 30.0, Anion Gap 7, BUN 26 H, Creatinine 2.18 H, Estim Creat Clear Calc 16.26, Est GFR (MDRD) Af Amer 28 L, Est GFR (MDRD) Non-Af 23 L, BUN/Creatinine Ratio 11.9, Glucose 147 H, Calcium 8.8, Magnesium 2.0, Total Bilirubin 0.70, AST 51 H, ALT 26, Alkaline Phosphatase 97, Total Protein 5.4 L, Albumin 1.8 L, Globulin 3.6, Albumin/Globulin Ratio 0.5 L 01/01/23 06:25: Troponin I High Sens 171 H* Micro: Microbiology 12/31/22 23:50 Nasal Secretion SARS-CoV-2 & FLU Antigen (Rapid) - Final 12/31/22 20:10 Mucosa - Nasopharyngeal Respiratory Panel (PCR) - Final Physical Exam Narrative General: Alert, fused, Cooperative, No apparent distress HEENT: Atraumatic, PERRLA, EOMI, Normocephalic Oral: Moist Mucosa Neck: Supple, No JVD Lungs: Diminished, Normal air movement, No rhonchi, No wheeze, No rales Cardiovascular: Regular rate, Regular Rhythm, Normal S1, Normal S2, No murmurs Abdomen: Soft, Non Tender, Non-Distended, No Hepato-splenomegaly Extremities: No edema, Capillary Refill Less than 3 Seconds Skin: No rashes, No breakdown Musculoskeletal: No Tenderness to Palpation of Joints or Extremities Neurological: Moves all extremities, sensory exam intact Psych/Mental Status: Flat affect, Appropriate Assessment & Plan Assessment/Plan (1) Hepatic encephalopathy: PLAN: Plan 1. Acute hepatic encephalopathy with a history of Núñez cirrhosis and status post TIPS procedure/esophageal varices ? Continues to be a little bit encephalopathic, denies any chest pain but states that her butt hurts ? Continue with lactulose as well as Flagyl, neomycin, azithromycin ? Respiratory panel and COVID are negative ? Sodium is 149, will continue to monitor if continues to rise we will place on D5W ? We will hold her Aldactone and diuretic ? Continue with PPI 2. DM2/CKD 3B ? Her creatinine has slowly been worsening over the last 2 years we will continue to monitor ? Continue sliding scale insulin ? Accu-Cheks ? We will make adjustments as necessary 3. Elevated troponin ? Currently she is denying chest pain and states that her butt hurts ? We will obtain a limited echo 4. History of COPD ? Continue with breathing treatments as necessary, not Bashan DVT: Heparin Charges/Coding Visit Charges Inpatient E&M: 25351 Subs Hosp L2
[2023-01-01 12:31] LABS: Bedside Glucose 93 mg/dL (74-106)
--- NOTE | 2023-01-01 13:13 | CHAPLAIN ---
Type of Pastoral Visit _x__ Initial Visit ___ Follow-up Visit ___ On-call Visit ___ General Patient Visit ___ Spiritual Assessment ___ Family Conference ___ Bereavement ___ Rapid Response ___ Code Blue ___ Other (describe below) Pastoral Care Referral From _x__ Patient ___ Family ___ Nurse ___ Physician ___ Hose Tester ___ Student Recruiter ___ Other (describe below) Sacrament/Intervention _x__ Active listening ___ Anointing ___ Presybeterian ___ Bereavement ___ Communion ___ Deepa exploration ___ _x__ Life review _x__ Prayer ___ Reconciliation ___ Sacrament of Sick __x_ Supportive presence ___ Wedding ___ Other (describe below) Pastoral Comments patient had just finished with PT; 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
--- NOTE | 2023-01-01 15:37 | CASEMGMT ---
Addendum entered by Amy Soriano 01/01/23 15:48: Social Work Pt does have services through [facility] with Skye calle CM. Pt has an emergency response system with no other services at this time. SW will notify of discharge plan. SAVANA Clemens Original Note: Social Work SW received phone call from Kristin at the [facility]. Pt was currently at the [facility] under an intermediate level of care. Pt was planning on discharging on Wednesday 01/03 AMA. Kristin states that staff does not feel pt is medically or functionally safe to return home. Per Kristin, pt can return to the [facility] if she wishes. ARCENIO met with pt. Pt not reliable in providing information. Some details she is able to clearly states (live in mobile home with a ramp) and others she cannot (pt not able to give address nor name PCP, what hospital she is in or what SNF she was at). Pt adamantly stating that she is returning home. With pt permission, phone call to pt . Pt immediately deferred and asked SW to call cy[facility] T[facility]. Phone call to Mile and ARCENIO inquired about discharge plan. Mile states pt definitely wants to go home but inquiring about how pt is doing. ARCENIO reviewed therapy notes with Mile. Per Ledia, pt will be returning to her home with pt and pt's brother who will be pt caregivers. Mile states that she and her sister Belem can assist as needed. Mile would like time to talk to pt to determine level of care he is willing to provide and if he can care for pt at home. Pt does have oxygen at home and a walker. Pt states she has a wheelchair and dgt states she does not. Mile states pt does have a living will and healthcare POA naming her daughter Belem Wiley. ARCENIO requested this documents be brought in for scanning into medical record. ARCENIO will await return call to determine if pt will return to the [facility] or go home. SAVANA Clemens
--- NOTE | 2023-01-01 15:48 | CASEMGMT ---
Social Work SW spoke with pt dgt Mile who states pt does have a living will and healthcare POA naming her daughter Belem Wiley. SW requested this documents be brought in for scanning into medical record. Mile agreeable. SAVANA Clemens
[2023-01-01 17:30] LABS: Bedside Glucose 108 mg/dL (74-106)
--- NOTE | 2023-01-01 18:16 | PN_ITS ---
Subjective Subjective Patient knows that she is in the hospital and she knows her name. She does not know what year it is and she does not know what month it is currently. Objective Data Objective Data Vital Signs: Vital Signs Temp Pulse Resp BP Pulse Ox O2 Del Method O2 Flow Rate 98.1 F 71 16 144/61 H 100 Nasal Cannula 2 01/01/23 15:42 01/01/23 16:22 01/01/23 15:42 01/01/23 16:22 01/01/23 15:42 01/01/23 15:42 01/01/23 15:42 Oxygen Flow Rate (L/min) 2 Oxygen Delivery Method Nasal Cannula Weight: 145 lb 15.136 oz Body Mass Index (BMI) 28.6 Intake & Output: Intake and Output for Last 24 Hours 12/30/22 12/31/22 01/01/23 23:59 23:59 23:59 Intake Total 250 / 250 Balance 250 / 250 Lab / Micro Data Result Diagrams: 01/01/23 06:25 01/01/23 06:25 Labs: Laboratory Results - last 24 hr 12/31/22 17:30: Urine RBC 0 SEEN, Urine WBC 0-5 SEEN, Ur Squamous Epith Cells 5- 10 SEEN, Urine Bacteria 0 SEEN, Urine Mucus 0 SEEN 12/31/22 22:04: POC Glucose 117 H 01/01/23 00:00: Troponin I High Sens 179 H* 01/01/23 01:52: Troponin I High Sens 164 H* 01/01/23 04:48: POC Glucose 101 01/01/23 06:25: WBC 8.3, RBC 3.09 L, Hgb 8.6 L, Hct 30.5 L, MCV 98.7 D, MCH 27.8, MCHC 28.2 L D, RDW Std Deviation 67.7 H, RDW Coeff of [place] 18.9 H, Plt Count 160, MPV 11.4, Immature Gran % (Auto) 0.500, Neut % (Auto) 63.9, Lymph % (Auto) 13.8 L, [place] % (Auto) 9.1, Eos % (Auto) 11.2 H, Baso % (Auto) 1.5 H, Absolute Neuts (auto) 5.3, Absolute Lymphs (auto) 1.14, Nucleated RBC % 0, Differential Comment SCANNED, Hypochromasia 1+, Anisocytosis 1+ 01/01/23 06:25: Sodium 149 H, Potassium 4.1, Chloride 112 H, Carbon Dioxide 30.0, Anion Gap 7, BUN 26 H, Creatinine 2.18 H, Estim Creat Clear Calc 16.26, Est GFR (MDRD) Af Amer 28 L, Est GFR (MDRD) Non-Af 23 L, BUN/Creatinine Ratio 11.9, Glucose 147 H, Calcium 8.8, Magnesium 2.0, Total Bilirubin 0.70, AST 51 H, ALT 26, Alkaline Phosphatase 97, Total Protein 5.4 L, Albumin 1.8 L, Globulin 3.6, Albumin/Globulin Ratio 0.5 L 01/01/23 06:25: Troponin I High Sens 171 H* 01/01/23 12:10: POC Glucose 93 01/01/23 16:49: POC Glucose 108 H Micro: Microbiology 12/31/22 23:50 Nasal Secretion SARS-CoV-2 & FLU Antigen (Rapid) - Final 12/31/22 20:10 Mucosa - Nasopharyngeal Respiratory Panel (PCR) - Final Radiography Diagnostic Testing: Radiology Impression Echocardiogram 01/01/23 08:51 Interpretation Summary The estimated ejection fraction is 70 %. Unable to assess diastolic dysfunction. The left atrium is mildly enlarged. Ordering Physician: Rafael Biggs Referring Physician: MD Sarah Josiah Performed By: Armando Edward, JUSTEN Physical Exam Narrative General: Alert, fused, Cooperative, No apparent distress HEENT: Atraumatic, PERRLA, EOMI, Normocephalic Oral: Moist Mucosa Neck: Supple, No JVD Lungs: Diminished, Normal air movement, No rhonchi, No wheeze, No rales Cardiovascular: Regular rate, Regular Rhythm, Normal S1, Normal S2, No murmurs Abdomen: Soft, Non Tender, Non-Distended, No Hepato-splenomegaly Extremities: No edema, Capillary Refill Less than 3 Seconds Skin: No rashes, No breakdown Musculoskeletal: No Tenderness to Palpation of Joints or Extremities Neurological: Moves all extremities, sensory exam intact Psych/Mental Status: Flat affect, Appropriate Assessment & Plan Assessment/Plan (1) Acute on chronic kidney failure: QUALIFIERS: Chronic kidney disease stage: stage 3 (moderate) Chronic kidney disease stage 3 subtype: stage 3b (GFR 30-44) (2) Acute hepatic encephalopathy: PLAN: Plan 1. Metabolic encephalopathy secondary to hepatic encephalopathy from chronic cirrhosis of the liver-patient will continue on her lactulose, neomycin, azithromycin and Xifaxan #2 chronic cirrhosis-complicates care, medical course, recovery, and prognosis #3 type 2 diabetes-patient's blood sugars will be monitored, sliding scale insulin will be continued #4 COPD-patient will remain on as needed albuterol aerosol treatments #5 chronic kidney disease stage IV-complicates care, medical course, recovery, and prognosis #6 severe protein and caloric malnutrition in the context of chronic disease related to inadequate energy intake/inadequate oral intake as evidenced by p.o. intake meeting less than 75% of estimated nutritional needs and unintentional weight loss of 25.5% x 10 months-continue liberal regular diet-no added salt, 4 ounces of Glucerna shake 4 times a day with [employer] for increased nutrition Charges/Coding Visit Charges Inpatient E&M: 92838 Subs Hosp L3
[2023-01-01] MEDS: Glucerna Shake 120 ML LIQUID PO (21:49)
[2023-01-01] MEDS: Menthol/Lanolin/Calamine/Znox 113 GM Tube 1 APPLIC TOPICAL (21:50)
[2023-01-01] MEDS: Atorvastatin Calcium 40 MG Tablet PO (21:50)
[2023-01-01] MEDS: Latanoprost 0.005% 1 Bottle 1 DRP LEFT EYE (21:55)
[2023-01-01 22:25] LABS: Bedside Glucose 82 mg/dL (74-106)
[2023-01-02] VITALS (8 sets, daily range): BP systolic 140–183; BP diastolic 45–58; PULSE 67–85; RESP 16–20; TEMP 36.4–37.1; O2SAT 95–99; BMI 25.5
[2023-01-02] MEDS: Lactulose 20 GM/30 ML UDC PO ×3 (00:07→23:10)
[2023-01-02] MEDS: hydrALAZINE 20 MG/ML Vial 5 MG IV (03:49)
[2023-01-02] MEDS: metroNIDAZOLE 500 MG Tablet PO ×3 (05:51→22:29)
[2023-01-02] MEDS: Heparin Injection (Vial) 5,000 UNIT/ML VIAL 5000 UNIT SC ×3 (05:51→22:26)
[2023-01-02] MEDS: Labetalol 100 MG Tablet 50 MG PO ×2 (06:08→22:29)
[2023-01-02] MEDS: Albuterol 2.5 MG/3 ML VIAL.NEB. INHALATION (06:29)
[2023-01-02 06:30] LABS: Bedside Glucose 97 mg/dL (74-106)
[2023-01-02 07:30] LABS: Absolute Lymphocyte Count 1.38 X10^3/uL (0.83-4.51); Absolute Neutrophil Count 4.1 X10^3/uL (2.0-7.7); Basophil# 0.14 X10^3/uL; Basophil% 1.8 % (0-1); Eosinophil# 1.09 X10^3/uL; Eosinophils% 14.2 % (0-5); Hematocrit 27.4 % (37-47); Lymphocyte # 1.38 X10^3/ul (0.83-4.51); Lymphocyte % 17.9 % (19-41); Mean Corp Hgb Conc 29.2 g/dL (32-36); Mean Corpuscular Hgb 27.8 pg (27.0-32.0); Mean Corpuscular Volume 95.1 fL (81-99); Mean Platelet Vol. 10.3 fl (6.2-12.0); Monocyte# 0.95 X10^3/uL; Monocyte% 12.4 % (0-10); NRBC Flagged by Analyzer 0 % (0-5); Neutrophil % 53.3 % (47-70); POSITIVE MORPHOLOGY YES; Platelet Count 147 K/mm3 (150-450); RBC Distribution Width CV 18.8 % (11.6-14.6); RBC Distribution Width SD 65.1 fl (35.1-43.9); Red Blood Count 2.88 M/mm3 (4.2-5.4); White Blood Count 7.7 K/mm3 (4.4-11.0)
[2023-01-02 07:35] LABS: ALB/GLOB Ratio 0.6 RATIO (0.9-2.4); AST(SGOT) 45 U/L (15-37); Alanine Aminotransfer ALT/SGPT 32 U/L (13-56); Alkaline Phosphatase 112 U/L (45-117); Anion Gap 9 (5-15); BUN 28 mg/dL (7-18); BUN/Creat Ratio 12.9 RATIO (10-20); Calcium,Total 9.1 mg/dL (8.5-10.1); Chloride 107 mmol/L (98-107); Creatinine, Serum 2.17 mg/dL (0.55-1.02); EST Glomerular Filtration Rate 24 mL/min (>60); Est Glom Filt Rate - Afr Amer 28 mL/min (>60); Estimated Creatinine Clearance 16.34 ml/min; Globulin 3.5 g/dL (2.2-4.2); Glucose 112 mg/dL (74-106); Potassium 3.5 mmol/L (3.5-5.1); Protein, Total 5.5 g/dL (6.4-8.2); Sodium Level 147 mmol/L (136-145)
[2023-01-02 07:37] LABS: Differential Indicated SCAN CRITERIA MET
[2023-01-02] MEDS: Azithromycin 250 MG Tablet 1000 MG PO (08:32)
[2023-01-02] MEDS: Glucerna Shake 120 ML LIQUID PO ×3 (08:32→22:25)
[2023-01-02] MEDS: Pantoprazole Sodium 40 MG Tablet PO (08:32)
[2023-01-02] MEDS: Menthol/Lanolin/Calamine/Znox 113 GM Tube 1 APPLIC TOPICAL ×2 (08:33→22:29)
[2023-01-02 08:40] LABS: Anisocytosis 1+
--- NOTE | 2023-01-02 09:23 | PN.HOSP_ITS ---
Subjective Subjective Sleeping but arousable. No issues overnight Objective Data Objective Data Vital Signs: Vital Signs Temp Pulse Resp BP Pulse Ox O2 Del Method O2 Flow Rate 97.8 F 68 16 140/45 H 99 Nasal Cannula 2 01/02/23 05:58 01/02/23 07:26 01/02/23 06:29 01/02/23 07:26 01/02/23 05:58 01/02/23 08:37 01/02/23 08:37 FiO2 95 01/02/23 06:29 Oxygen Flow Rate (L/min) 2 Oxygen Delivery Method Nasal Cannula Weight: 130 lb 4.691 oz Body Mass Index (BMI) 25.5 Intake & Output: Intake and Output for Last 24 Hours 01/01/23 01/02/23 01/03/23 03:59 03:59 03:59 Intake Total 250 / 250 Balance 250 / 250 Lab / Micro Data Result Diagrams: 01/02/23 07:00 01/02/23 05:08 Labs: Laboratory Results - last 24 hr 01/01/23 12:10: POC Glucose 93 01/01/23 16:49: POC Glucose 108 H 01/01/23 21:49: POC Glucose 82 01/02/23 05:08: Sodium 147 H, Potassium 3.5, Chloride 107, Carbon Dioxide 31.0, Anion Gap 9, BUN 28 H, Creatinine 2.17 H, Estim Creat Clear Calc 16.34, Est GFR (MDRD) Af Amer 28 L, Est GFR (MDRD) Non-Af 24 L, BUN/Creatinine Ratio 12.9, Glucose 112 H, Calcium 9.1, Total Bilirubin 0.70, AST 45 H, ALT 32, Alkaline Phosphatase 112, Total Protein 5.5 L, Albumin 2.0 L, Globulin 3.5, Albumin/Globulin Ratio 0.6 L 01/02/23 05:49: POC Glucose 97 01/02/23 07:00: WBC 7.7, RBC 2.88 L, Hgb 8.0 L, Hct 27.4 L, MCV 95.1, MCH 27.8, MCHC 29.2 L, RDW Std Deviation 65.1 H, RDW Coeff of [place] 18.8 H, Plt Count 147 L, MPV 10.3, Immature Gran % (Auto) 0.400, Neut % (Auto) 53.3, Lymph % (Auto) 17.9 L, [place] % (Auto) 12.4 H, Eos % (Auto) 14.2 H, Baso % (Auto) 1.8 H, Absolute Neuts (auto) 4.1, Absolute Lymphs (auto) 1.38, Nucleated RBC % 0, Anisocytosis 1+ Micro: Microbiology 12/31/22 23:50 Nasal Secretion SARS-CoV-2 & FLU Antigen (Rapid) - Final 12/31/22 20:10 Mucosa - Nasopharyngeal Respiratory Panel (PCR) - Final Radiography Diagnostic Testing: Radiology Impression Echocardiogram 01/01/23 08:51 Interpretation Summary The estimated ejection fraction is 70 %. Unable to assess diastolic dysfunction. The left atrium is mildly enlarged. Ordering Physician: Rafael Biggs Referring Physician: MD Sarah Josiah Performed By: Armando Edward RCS Physical Exam Narrative General: Alert, confused, Cooperative, No apparent distress HEENT: Atraumatic, PERRLA, EOMI, Normocephalic Oral: Moist Mucosa Neck: Supple, No JVD Lungs: Diminished, Normal air movement, No rhonchi, No wheeze, No rales Cardiovascular: Regular rate, Regular Rhythm, Normal S1, Normal S2, No murmurs Abdomen: Soft, Non Tender, Non-Distended, No Hepato-splenomegaly Extremities: No edema, Capillary Refill Less than 3 Seconds Skin: No rashes, No breakdown Musculoskeletal: No Tenderness to Palpation of Joints or Extremities Neurological: Moves all extremities, sensory exam intact Psych/Mental Status: Flat affect, Appropriate Assessment & Plan Assessment/Plan (1) Hepatic encephalopathy: PLAN: Plan 1. Acute hepatic encephalopathy with a history of Núñez cirrhosis and status post TIPS procedure/esophageal varices ? Continues to be a little bit encephalopathic ? Continue with lactulose as well as Flagyl, neomycin, azithromycin ? Respiratory panel and COVID are negative ? Sodium is 147, will continue to monitor ? We will hold her Aldactone and diuretic ? Continue with PPI 2. DM2/CKD 3B ? Her creatinine has slowly been worsening over the last 2 years we will continue to monitor ? Continue sliding scale insulin ? Accu-Cheks ? We will make adjustments as necessary 3. Elevated troponin ? Currently she is denying chest pain ? Limited echo with no change and wall function, EF is 70% 4. History of COPD ? Continue with breathing treatments as necessary, not Bashan DVT: Heparin Charges/Coding Visit Charges Inpatient E&M: 69718 Subs Hosp L2
[2023-01-02 12:00] LABS: Bedside Glucose 153 mg/dL (74-106)
--- NOTE | 2023-01-02 14:20 | CASEMGMT ---
Social Work SW placed call to pt dgt [facility] to follow up on discharge planning. Mile states that she spoke with pt's and he feels he can care for pt at home and therefore when pt leaves the hospital she will be returning home with her . ARCENIO inquired about home health and Mile is agreeable. Pt does have a walker, shower chair and ramp into the home. RNCM updated. Phone call to [facility] and updated. SAVANA Clemens
--- NOTE | 2023-01-02 14:31 | CASEMGMT ---
Addendum entered by Earnestine Blackman 01/02/23 15:03: Received tc from Snehal at [facility], they can accept pt for SOC on Thursday. TC to Mile to make aware. She denies further questions. Original Note: SW made aware pt plans to go home with [facility]. TC to pt dtr Mile, provided her with a verbal list of [facility] providers including quality and resource use data and consistent with the patient?s preferred geographic region, medical needs, and insurance network were provided from the [employer] Guide. She chose [facility] as pt has had in the past. TC to [facility], referall made to Snehal. Will await acceptance.
--- NOTE | 2023-01-02 16:44 | CASEMGMT ---
Social Work SW placed call to [facility] covering [facility] and notified that pt will be returning home at discharge. Will fax discharge summary to [facility] at time of discharge. Per Kristin at the [facility], an APS referral was to be made at time pt left [facility]. Phone call to Marilee at [facility] and left with referral. SAVANA Clemens
[2023-01-02 17:16] LABS: Bedside Glucose 128 mg/dL (74-106)
--- NOTE | 2023-01-02 18:42 | PCM.PROGNOTE ---
Subjective Subjective Patient was sleepy but awoke easily. She is oriented to person and place but not time. Objective Data Objective Data Vital Signs: Vital Signs Temp Pulse Resp BP Pulse Ox O2 Del Method O2 Flow Rate 98.7 F 67 18 144/47 H 98 Nasal Cannula 2 01/02/23 15:06 01/02/23 15:06 01/02/23 15:06 01/02/23 15:06 01/02/23 15:06 01/02/23 15:06 01/02/23 15:06 FiO2 95 01/02/23 06:29 Oxygen Flow Rate (L/min) 2 Oxygen Delivery Method Nasal Cannula Weight: 130 lb 4.691 oz Body Mass Index (BMI) 25.5 Intake & Output: Intake and Output for Last 24 Hours 12/31/22 01/01/23 01/02/23 23:59 23:59 23:59 Intake Total 250 / 250 Balance 250 / 250 Lab / Micro Data Result Diagrams: 01/02/23 07:00 01/02/23 05:08 Labs: Laboratory Results - last 24 hr 01/01/23 21:49: POC Glucose 82 01/02/23 05:08: Sodium 147 H, Potassium 3.5, Chloride 107, Carbon Dioxide 31.0, Anion Gap 9, BUN 28 H, Creatinine 2.17 H, Estim Creat Clear Calc 16.34, Est GFR (MDRD) Af Amer 28 L, Est GFR (MDRD) Non-Af 24 L, BUN/Creatinine Ratio 12.9, Glucose 112 H, Calcium 9.1, Total Bilirubin 0.70, AST 45 H, ALT 32, Alkaline Phosphatase 112, Total Protein 5.5 L, Albumin 2.0 L, Globulin 3.5, Albumin/Globulin Ratio 0.6 L 01/02/23 05:49: POC Glucose 97 01/02/23 07:00: WBC 7.7, RBC 2.88 L, Hgb 8.0 L, Hct 27.4 L, MCV 95.1, MCH 27.8, MCHC 29.2 L, RDW Std Deviation 65.1 H, RDW Coeff of [place] 18.8 H, Plt Count 147 L, MPV 10.3, Immature Gran % (Auto) 0.400, Neut % (Auto) 53.3, Lymph % (Auto) 17.9 L, [place] % (Auto) 12.4 H, Eos % (Auto) 14.2 H, Baso % (Auto) 1.8 H, Absolute Neuts (auto) 4.1, Absolute Lymphs (auto) 1.38, Nucleated RBC % 0, Anisocytosis 1+ 01/02/23 11:36: POC Glucose 153 H 01/02/23 16:33: POC Glucose 128 H Micro: Microbiology 12/31/22 23:50 Nasal Secretion SARS-CoV-2 & FLU Antigen (Rapid) - Final 12/31/22 20:10 Mucosa - Nasopharyngeal Respiratory Panel (PCR) - Final Physical Exam Narrative General: Alert, confused, Cooperative, No apparent distress HEENT: Atraumatic, PERRLA, EOMI, Normocephalic Oral: Moist Mucosa Neck: Supple, No JVD Lungs: Diminished, Normal air movement, No rhonchi, No wheeze, No rales Cardiovascular: Regular rate, Regular Rhythm, Normal S1, Normal S2, No murmurs Abdomen: Soft, Non Tender, Non-Distended, No Hepato-splenomegaly Extremities: No edema, Capillary Refill Less than 3 Seconds Skin: No rashes, No breakdown Musculoskeletal: No Tenderness to Palpation of Joints or Extremities Neurological: Moves all extremities, sensory exam intact Psych/Mental Status: Flat affect, Appropriate Assessment & Plan Assessment/Plan (1) Acute on chronic kidney failure: QUALIFIERS: Chronic kidney disease stage: stage 3 (moderate) Chronic kidney disease stage 3 subtype: stage 3b (GFR 30-44) (2) Acute hepatic encephalopathy: PLAN: Plan 1. Metabolic encephalopathy secondary to hepatic encephalopathy from chronic cirrhosis of the liver-patient will continue on her lactulose, neomycin, azithromycin and Xifaxan #2 chronic cirrhosis-complicates care, medical course, recovery, and prognosis #3 type 2 diabetes-patient's blood sugars will be monitored, sliding scale insulin will be continued #4 COPD-patient will remain on as needed albuterol aerosol treatments #5 chronic kidney disease stage IV-complicates care, medical course, recovery, and prognosis #6 Moderate protein and caloric malnutrition in the context of chronic disease related to inadequate energy intake/inadequate oral intake. In cirrhosis, this is closely associated with a reduction in muscle mass, function and strength, known as sarcopenia. Collectively, malnutrition and sarcopenia negatively impact on a patients? ability to complete daily tasks, quality of life, liver related morbidity and mortality. Her BMI is 25 which is appropriate her nutrition is still poor. This is reflected in her hypoalbuminemia, thrombocytopenia in worsening sarcopenia this seen on imaging. 65kg patient with mild ascites, estimated dry weight would be 65kg (5% of 65=4kg)=62kg. She has child Ortiz class a cirrhosis. Compensated cirrhosis (Child-Ortiz A) Recommended energy intake: 25?35 kcal/kg/day. Recommended protein intake: 1.2?1.5g/kg/day to maintain muscle mass. Decompensated cirrhosis with sarcopenia Recommended energy intake: 30?35 kcal/kg/day. Recommended protein intake: 1.5?2.0g/kg/day to prevent further loss and reverse sarcopenia. Charges/Coding Visit Charges Inpatient E&M: 82356 Subs Hosp L3
[2023-01-02] MEDS: Latanoprost 0.005% 1 Bottle 1 DRP LEFT EYE (22:32)
[2023-01-02] MEDS: Atorvastatin Calcium 40 MG Tablet PO (22:32)
[2023-01-02] MEDS: 0.9% Saline Lock 10 ML Syringe IV (22:34)
[2023-01-02 23:30] LABS: Bedside Glucose 129 mg/dL (74-106)
[2023-01-03 04:04] VITALS: BP 160/46; PULSE 69; RESP 18; TEMP 36.7; O2SAT 99
[2023-01-03 04:46] VITALS: BMI 35.4
[2023-01-03 06:44] VITALS: BP 157/47; PULSE 69
[2023-01-03] MEDS: Lactulose 20 GM/30 ML UDC PO ×3 (06:47→17:34)
[2023-01-03] MEDS: metroNIDAZOLE 500 MG Tablet PO ×3 (06:48→22:14)
[2023-01-03] MEDS: Heparin Injection (Vial) 5,000 UNIT/ML VIAL 5000 UNIT SC ×3 (06:49→22:18)
[2023-01-03 06:54] LABS: Absolute Lymphocyte Count 1.71 X10^3/uL (0.83-4.51); Absolute Neutrophil Count 4.4 X10^3/uL (2.0-7.7); Basophil# 0.18 X10^3/uL; Basophil% 2.1 % (0-1); Eosinophil# 1.37 X10^3/uL; Eosinophils% 15.8 % (0-5); Hematocrit 28.9 % (37-47); Hemoglobin 8.3 g/dL (12.0-15.0); Lymphocyte # 1.71 X10^3/ul (0.83-4.51); Lymphocyte % 19.7 % (19-41); Mean Corp Hgb Conc 28.7 g/dL (32-36); Mean Corpuscular Hgb 27.3 pg (27.0-32.0); Mean Corpuscular Volume 95.1 fL (81-99); Monocyte# 0.99 X10^3/uL; Monocyte% 11.4 % (0-10); NRBC Flagged by Analyzer 0 % (0-5); Neutrophil # 4.41 X10^3/uL (2.7-7.7); Neutrophil % 50.7 % (47-70); Platelet Count 180 K/mm3 (150-450); RBC Distribution Width CV 18.6 % (11.6-14.6); RBC Distribution Width SD 64.7 fl (35.1-43.9); Red Blood Count 3.04 M/mm3 (4.2-5.4); White Blood Count 8.7 K/mm3 (4.4-11.0)
[2023-01-03 07:30] LABS: Bedside Glucose 91 mg/dL (74-106)
[2023-01-03 07:32] LABS: ALB/GLOB Ratio 0.6 RATIO (0.9-2.4); AST(SGOT) 40 U/L (15-37); Alanine Aminotransfer ALT/SGPT 26 U/L (13-56); Alkaline Phosphatase 105 U/L (45-117); Anion Gap 7 (5-15); BUN 28 mg/dL (7-18); BUN/Creat Ratio 12.8 RATIO (10-20); Chloride 104 mmol/L (98-107); Creatinine, Serum 2.19 mg/dL (0.55-1.02); EST Glomerular Filtration Rate 23 mL/min (>60); Est Glom Filt Rate - Afr Amer 28 mL/min (>60); Estimated Creatinine Clearance 16.19 ml/min; Globulin 3.5 g/dL (2.2-4.2); Glucose 102 mg/dL (74-106); Potassium 3.6 mmol/L (3.5-5.1); Protein, Total 5.5 g/dL (6.4-8.2); Sodium Level 144 mmol/L (136-145)
[2023-01-03] MEDS: Menthol/Lanolin/Calamine/Znox 113 GM Tube 1 APPLIC TOPICAL ×2 (08:49→22:17)
[2023-01-03] MEDS: Labetalol 100 MG Tablet 50 MG PO ×2 (08:49→22:15)
[2023-01-03] MEDS: Pantoprazole Sodium 40 MG Tablet PO (08:49)
[2023-01-03] MEDS: Azithromycin 250 MG Tablet 1000 MG PO (08:49)
[2023-01-03 09:12] VITALS: BP 156/47; PULSE 66; RESP 18; TEMP 36.8; O2SAT 98
[2023-01-03 11:00] VITALS: O2SAT 97
[2023-01-03 12:20] LABS: Bedside Glucose 149 mg/dL (74-106)
--- NOTE | 2023-01-03 14:29 | PN_ITS ---
Subjective Subjective Patient seen and examined. She states she feels well today and wants to go home. She had an uneventful night and review of systems otherwise negative. Objective Data Objective Data Vital Signs: Vital Signs Temp Pulse Resp BP Pulse Ox O2 Del Method O2 Flow Rate 98.2 F 66 18 156/47 H 97 Nasal Cannula 3 01/03/23 09:12 01/03/23 09:12 01/03/23 09:12 01/03/23 09:12 01/03/23 11:00 01/03/23 11:00 01/03/23 11:00 FiO2 95 01/02/23 06:29 Oxygen Flow Rate (L/min) 3 Oxygen Delivery Method Nasal Cannula Weight: 180 lb 1.883 oz Body Mass Index (BMI) 35.4 Intake & Output: Intake and Output for Last 24 Hours 01/01/23 01/02/23 01/03/23 23:59 23:59 23:59 Intake Total 250 / 250 300 / 300 200 / 200 Balance 250 / 250 300 / 300 200 / 200 Lab / Micro Data Result Diagrams: 01/03/23 06:22 01/03/23 06:22 Labs: Laboratory Results - last 24 hr 01/02/23 16:33: POC Glucose 128 H 01/02/23 22:21: POC Glucose 129 H 01/03/23 06:22: WBC 8.7, RBC 3.04 L, Hgb 8.3 L, Hct 28.9 L, MCV 95.1, MCH 27.3, MCHC 28.7 L, RDW Std Deviation 64.7 H, RDW Coeff of [place] 18.6 H, Plt Count 180, MPV 11.0, Immature Gran % (Auto) 0.300, Neut % (Auto) 50.7, Lymph % (Auto) 19.7, [place] % (Auto) 11.4 H, Eos % (Auto) 15.8 H, Baso % (Auto) 2.1 H, Absolute Neuts (auto) 4.4, Absolute Lymphs (auto) 1.71, Nucleated RBC % 0 01/03/23 06:22: Sodium 144, Potassium 3.6, Chloride 104, Carbon Dioxide 33.0 H, Anion Gap 7, BUN 28 H, Creatinine 2.19 H, Estim Creat Clear Calc 16.19, Est GFR (MDRD) Af Amer 28 L, Est GFR (MDRD) Non-Af 23 L, BUN/Creatinine Ratio 12.8, Glucose 102, Calcium 9.0, Total Bilirubin 0.60, AST 40 H, ALT 26, Alkaline Phosphatase 105, Total Protein 5.5 L, Albumin 2.0 L, Globulin 3.5, Albumin/Globulin Ratio 0.6 L 01/03/23 06:45: POC Glucose 91 01/03/23 11:54: POC Glucose 149 H Micro: Microbiology 12/31/22 23:50 Nasal Secretion SARS-CoV-2 & FLU Antigen (Rapid) - Final 12/31/22 20:10 Mucosa - Nasopharyngeal Respiratory Panel (PCR) - Final Physical Exam Const alert, oriented x3 and no apparent distress General Appearance: cooperative HEENT normocephalic, head/scalp atraumatic and moist oral mucous membranes Eyes PERRL and EOMs intact bilaterally Neck no lymphadenopathy, supple and no JVD Lymph Lymphatic: no lymphadenopathy noted and no lymphedema noted Cardio regular rate, regular rhythm, S1 normal heart sound, S2 normal heart sound and no murmurs GI normal to inspection, nondistended, normoactive bowel sounds, soft to palpation and non-tender Extremity normal capillary refill, no clubbing, cyanosis or edema and no calf tenderness Skin General Skin Exam: no breakdown Neuro CN's II-XII intact bilaterally and no focal motor deficits Motor Exam: strength 5/5 throughout Psych thought process normal Appearance: appropriate Assessment & Plan Assessment/Plan (1) Hepatic encephalopathy: PLAN: Plan #Acute hepatic encephalopathy due to liver cirrhosis * on lactulose, neomycin, azithromycin and xifaxan * aldactone and lasix on hold * #Chronic cirrhosis: as above #Type 2 diabetes mellitus: on ISS. Accuchecks ACHS #COPD: not in exacerbation. on breathing treatment with bronchodilators #CKD IV: stable. Cr is 2.17, which is around her baseline #Moderate malnutrition: dietitian on board. DVT prophylaxis: heparin Charges/Coding Visit Charges Inpatient E&M: 54060 Subs Hosp L2
[2023-01-03 14:52] VITALS: BP 138/45; PULSE 74; RESP 18; TEMP 37.2; O2SAT 98
--- NOTE | 2023-01-03 15:48 | PN_ITS ---
Subjective Subjective Patient states that she is back to baseline regarding her mentation. She denies abdominal pain. She is alert and awake and oriented x3 today. Objective Data Objective Data Vital Signs: Vital Signs Temp Pulse Resp BP Pulse Ox O2 Del Method O2 Flow Rate 99 F 74 18 138/45 H 98 Nasal Cannula 2 01/03/23 14:52 01/03/23 14:52 01/03/23 14:52 01/03/23 14:52 01/03/23 14:52 01/03/23 14:52 01/03/23 14:52 FiO2 95 01/02/23 06:29 Oxygen Flow Rate (L/min) 2 Oxygen Delivery Method Nasal Cannula Weight: 180 lb 1.883 oz Body Mass Index (BMI) 35.4 Intake & Output: Intake and Output for Last 24 Hours 01/01/23 01/02/23 01/03/23 23:59 23:59 23:59 Intake Total 250 / 250 300 / 300 700 / 700 Balance 250 / 250 300 / 300 700 / 700 Lab / Micro Data Result Diagrams: 01/03/23 06:22 01/03/23 06:22 Labs: Laboratory Results - last 24 hr 01/02/23 16:33: POC Glucose 128 H 01/02/23 22:21: POC Glucose 129 H 01/03/23 06:22: WBC 8.7, RBC 3.04 L, Hgb 8.3 L, Hct 28.9 L, MCV 95.1, MCH 27.3, MCHC 28.7 L, RDW Std Deviation 64.7 H, RDW Coeff of [place] 18.6 H, Plt Count 180, MPV 11.0, Immature Gran % (Auto) 0.300, Neut % (Auto) 50.7, Lymph % (Auto) 19.7, [place] % (Auto) 11.4 H, Eos % (Auto) 15.8 H, Baso % (Auto) 2.1 H, Absolute Neuts (auto) 4.4, Absolute Lymphs (auto) 1.71, Nucleated RBC % 0 01/03/23 06:22: Sodium 144, Potassium 3.6, Chloride 104, Carbon Dioxide 33.0 H, Anion Gap 7, BUN 28 H, Creatinine 2.19 H, Estim Creat Clear Calc 16.19, Est GFR (MDRD) Af Amer 28 L, Est GFR (MDRD) Non-Af 23 L, BUN/Creatinine Ratio 12.8, Glucose 102, Calcium 9.0, Total Bilirubin 0.60, AST 40 H, ALT 26, Alkaline Phosphatase 105, Total Protein 5.5 L, Albumin 2.0 L, Globulin 3.5, Albumin/Gina bulin Ratio 0.6 L 01/03/23 06:45: POC Glucose 91 01/03/23 11:54: POC Glucose 149 H Micro: Microbiology 12/31/22 23:50 Nasal Secretion SARS-CoV-2 & FLU Antigen (Rapid) - Final 12/31/22 20:10 Mucosa - Nasopharyngeal Respiratory Panel (PCR) - Final Physical Exam Const alert, oriented x3 and no apparent distress General Appearance: cooperative HEENT normocephalic, head/scalp atraumatic and moist oral mucous membranes Eyes PERRL and EOMs intact bilaterally Neck no lymphadenopathy, supple and no JVD Lymph Lymphatic: no lymphadenopathy noted and no lymphedema noted Cardio regular rate, regular rhythm, S1 normal heart sound, S2 normal heart sound and no murmurs GI normal to inspection, nondistended, normoactive bowel sounds, soft to palpation and non-tender Extremity normal capillary refill, no clubbing, cyanosis or edema and no calf tenderness Skin General Skin Exam: no breakdown Neuro CN's II-XII intact bilaterally and no focal motor deficits Motor Exam: strength 5/5 throughout Psych thought process normal Appearance: appropriate Assessment & Plan Assessment/Plan (1) Acute on chronic kidney failure: QUALIFIERS: Chronic kidney disease stage: stage 3 (moderate) Chronic kidney disease stage 3 subtype: stage 3b (GFR 30-44) (2) Acute hepatic encephalopathy: PLAN: Plan 1. Metabolic encephalopathy secondary to hepatic encephalopathy from chronic cirrhosis of the liver-patient will continue on her lactulose, neomycin, az ithromycin and Xifaxan #2 chronic cirrhosis-complicates care, medical course, recovery, and prognosis #3 type 2 diabetes-patient's blood sugars will be monitored, sliding scale insulin will be continued #4 COPD-patient will remain on as needed albuterol aerosol treatments #5 chronic kidney disease stage IV-complicates care, medical course, recovery, and prognosis #6 Moderate protein and caloric malnutrition in the context of chronic disease related to inadequate energy intake/inadequate oral intake. Patient seems to be almost back at baseline. When she does go home she should be on lactulose 20 cc 5 times a day, Xifaxan 5 to 50 mg twice a day, Flagyl 500 mg twice a day. Encourage 1 mg/kg of protein on a daily basis. 500 mg of sodium per day and 1.5 L water restriction per day. Charges/Coding Visit Charges Inpatient E&M: 47343 Subs Hosp L3
[2023-01-03 17:55] LABS: Bedside Glucose 95 mg/dL (74-106)
[2023-01-03 20:27] VITALS: BP 145/44; PULSE 71; RESP 18; TEMP 36.8; O2SAT 98
[2023-01-03] MEDS: Atorvastatin Calcium 40 MG Tablet PO (22:16)
[2023-01-03] MEDS: Latanoprost 0.005% 1 Bottle 1 DRP LEFT EYE (22:16)
[2023-01-03 22:55] LABS: Bedside Glucose 117 mg/dL (74-106)
[2023-01-04] MEDS: Lactulose 20 GM/30 ML UDC PO ×5 (00:08→23:11)
[2023-01-04 03:11] VITALS: BP 168/60; PULSE 72; RESP 18; TEMP 36.8; O2SAT 99
[2023-01-04] MEDS: 0.9% Saline Lock 10 ML Syringe IV ×2 (03:11→10:07)
[2023-01-04] MEDS: hydrALAZINE 20 MG/ML Vial 5 MG IV (03:11)
[2023-01-04 06:00] VITALS: BMI 28.9
[2023-01-04] MEDS: metroNIDAZOLE 500 MG Tablet PO ×3 (06:10→21:18)
[2023-01-04 06:11] LABS: Absolute Lymphocyte Count 1.69 X10^3/uL (0.83-4.51); Absolute Neutrophil Count 4.2 X10^3/uL (2.0-7.7); Basophil# 0.15 X10^3/uL; Basophil% 1.8 % (0-1); Eosinophil# 1.28 X10^3/uL; Eosinophils% 15.6 % (0-5); Hemoglobin 7.9 g/dL (12.0-15.0); Lymphocyte # 1.69 X10^3/ul (0.83-4.51); Lymphocyte % 20.6 % (19-41); Mean Corp Hgb Conc 29.3 g/dL (32-36); Mean Corpuscular Hgb 27.8 pg (27.0-32.0); Mean Corpuscular Volume 95.1 fL (81-99); Mean Platelet Vol. 11.2 fl (6.2-12.0); Monocyte# 0.86 X10^3/uL; Monocyte% 10.5 % (0-10); NRBC Flagged by Analyzer 0 % (0-5); Neutrophil # 4.17 X10^3/uL (2.7-7.7); Platelet Count 168 K/mm3 (150-450); RBC Distribution Width CV 18.5 % (11.6-14.6); RBC Distribution Width SD 64.6 fl (35.1-43.9); Red Blood Count 2.84 M/mm3 (4.2-5.4); White Blood Count 8.2 K/mm3 (4.4-11.0)
[2023-01-04] MEDS: Heparin Injection (Vial) 5,000 UNIT/ML VIAL 5000 UNIT SC ×3 (06:11→21:17)
[2023-01-04 07:03] LABS: ALB/GLOB Ratio 0.5 RATIO (0.9-2.4); AST(SGOT) 44 U/L (15-37); Alanine Aminotransfer ALT/SGPT 22 U/L (13-56); Albumin, Serum 1.9 g/dL (3.2-5.0); Alkaline Phosphatase 97 U/L (45-117); Anion Gap 6 (5-15); BUN 28 mg/dL (7-18); BUN/Creat Ratio 12.8 RATIO (10-20); Calcium,Total 8.7 mg/dL (8.5-10.1); Chloride 106 mmol/L (98-107); Creatinine, Serum 2.18 mg/dL (0.55-1.02); EST Glomerular Filtration Rate 23 mL/min (>60); Est Glom Filt Rate - Afr Amer 28 mL/min (>60); Estimated Creatinine Clearance 16.26 ml/min; Globulin 3.5 g/dL (2.2-4.2); Glucose 165 mg/dL (74-106); Potassium 3.6 mmol/L (3.5-5.1); Protein, Total 5.4 g/dL (6.4-8.2); Sodium Level 143 mmol/L (136-145)
[2023-01-04 07:45] LABS: Bedside Glucose 145 mg/dL (74-106)
[2023-01-04 09:20] VITALS: BP 147/45; PULSE 71; RESP 18; TEMP 37; O2SAT 100
[2023-01-04] MEDS: Azithromycin 250 MG Tablet 1000 MG PO (09:20)
[2023-01-04] MEDS: Pantoprazole Sodium 40 MG Tablet PO (09:20)
[2023-01-04] MEDS: Labetalol 100 MG Tablet 50 MG PO ×2 (09:21→21:18)
[2023-01-04] MEDS: Ondansetron 4 MG/2 ML Vial IV (10:07)
[2023-01-04] MEDS: Menthol/Lanolin/Calamine/Znox 113 GM Tube 1 APPLIC TOPICAL ×2 (10:10→21:15)
[2023-01-04 11:21] LABS: Bedside Glucose 137 mg/dL (74-106)
--- NOTE | 2023-01-04 13:57 | PN_ITS ---
Subjective Subjective Patient seen and examined. She appears confused. Even though she knows her name and the date of and where she is, patient keeps talking about how she was on both any breakfast even though her breakfast was right in front of her. She gets in the hospital and was on both his breakfast and that she is very up set and wants to go home. She has otherwise remained hemodynamically stable. Objective Data Objective Data Vital Signs: Vital Signs Temp Pulse Resp BP Pulse Ox O2 Del Method O2 Flow Rate 98.6 F 71 18 147/45 H 100 Nasal Cannula 2 01/04/23 09:20 01/04/23 09:20 01/04/23 09:20 01/04/23 09:20 01/04/23 09:20 01/04/23 10:26 01/04/23 10:26 FiO2 95 01/02/23 06:29 Oxygen Flow Rate (L/min) 2 Oxygen Delivery Method Nasal Cannula Weight: 147 lb 7.828 oz Body Mass Index (BMI) 28.9 Intake & Output: Intake and Output for Last 24 Hours 01/02/23 01/03/23 01/04/23 23:59 23:59 23:59 Intake Total 300 / 300 1150 / 1380 870 / 870 Balance 300 / 300 1150 / 1380 870 / 870 Lab / Micro Data Result Diagrams: 01/04/23 05:40 01/04/23 05:40 Labs: Laboratory Results - last 24 hr 01/03/23 17:32: POC Glucose 95 01/03/23 18:05: Ammonia 51.0 H 01/03/23 22:13: POC Glucose 117 H 01/04/23 05:40: WBC 8.2, RBC 2.84 L, Hgb 7.9 L, Hct 27.0 L, MCV 95.1, MCH 27.8, MCHC 29.3 L, RDW Std Deviation 64.6 H, RDW Coeff of [place] 18.5 H, Plt Count 168, MPV 11.2, Immature Gran % (Auto) 0.500, Neut % (Auto) 51.0, Lymph % (Auto) 20.6, [place] % (Auto) 10.5 H, Eos % (Auto) 15.6 H, Baso % (Auto) 1.8 H, Absolute Neuts (auto) 4.2, Absolute Lymphs (auto) 1.69, Nucleated RBC % 0 01/04/23 05:40: Sodium 143, Potassium 3.6, Chloride 106, Carbon Dioxide 31.0, Anion Gap 6, BUN 28 H, Creatinine 2.18 H, Estim Creat Clear Calc 16.26, Est GFR (MDRD) Af Amer 28 L, Est GFR (MDRD) Non-Af 23 L, BUN/Creatinine Ratio 12.8, Glucose 165 H, Calcium 8.7, Total Bilirubin 0.70, AST 44 H, ALT 22, Alkaline Phosphatase 97, Total Protein 5.4 L, Albumin 1.9 L, Globulin 3.5, [place] min/Globulin Ratio 0.5 L 01/04/23 06:20: POC Glucose 145 H 01/04/23 11:03: POC Glucose 137 H Micro: Microbiology 12/31/22 23:50 Nasal Secretion SARS-CoV-2 & FLU Antigen (Rapid) - Final 12/31/22 20:10 Mucosa - Nasopharyngeal Respiratory Panel (PCR) - Final Physical Exam Const alert, oriented x3 and no apparent distress General Appearance: cooperative HEENT normocephalic, head/scalp atraumatic and moist oral mucous membranes Eyes PERRL and EOMs intact bilaterally Neck no lymphadenopathy, supple and no JVD Lymph Lymphatic: no lymphadenopathy noted and no lymphedema noted Cardio regular rate, regular rhythm, S1 normal heart sound, S2 normal heart sound and no murmurs GI normal to inspection, nondistended, normoactive bowel sounds, soft to palpation and non-tender Extremity normal capillary refill, no clubbing, cyanosis or edema and no calf tenderness Skin General Skin Exam: no breakdown Neuro CN's II-XII intact bilaterally and no focal motor deficits Neuro Narrative: confused Motor Exam: strength 5/5 throughout Psych Psych Narrative: confused Appearance: appropriate Assessment & Plan Assessment/Plan (1) Hepatic encephalopathy: PLAN: Plan #Acute hepatic encephalopathy due to liver cirrhosis * on lactulose, neomycin, azithromycin and xifaxan * aldactone and lasix on hold * still confused. * #Chronic cirrhosis: as above #Type 2 diabetes mellitus: on ISS. Accuchecks ACHS #COPD: not in exacerbation. on breathing treatment with bronchodilators #CKD IV: stable. Cr is 2.18 today, which is around her baseline #Moderate malnutrition: dietitian on board. DVT prophylaxis: heparin Disposition: patient is supposed to be going home at discharge. However, patient is quite confused, and I am concerned about her going home. Will call her daughter to discuss goals of care Charges/Coding Visit Charges Inpatient E&M: 15306 Subs Hosp L2
[2023-01-04 14:20] VITALS: O2SAT 100
[2023-01-04 15:30] VITALS: BP 133/32; PULSE 65; RESP 18; TEMP 37.2; O2SAT 100
[2023-01-04] MEDS: Insulin Lispro 100 UNIT/ML INSULN.PEN SC (16:35)
[2023-01-04 16:51] LABS: Bedside Glucose 183 mg/dL (74-106)
[2023-01-04 20:14] VITALS: BP 142/35; PULSE 76; RESP 16; TEMP 36.8; O2SAT 99
[2023-01-04] MEDS: Latanoprost 0.005% 1 Bottle 1 DRP LEFT EYE (21:17)
[2023-01-04] MEDS: Atorvastatin Calcium 40 MG Tablet PO (21:19)
[2023-01-04] MEDS: Glucerna Shake 120 ML LIQUID PO (21:23)
[2023-01-04 21:56] LABS: Bedside Glucose 138 mg/dL (74-106)
[2023-01-05] MEDS: 0.9% Saline Lock 10 ML Syringe IV ×3 (00:11→12:16)
[2023-01-05] MEDS: Ondansetron 4 MG/2 ML Vial IV ×2 (00:11→12:16)
[2023-01-05 01:22] VITALS: BP 173/46; PULSE 79; RESP 16; TEMP 36.8; O2SAT 98
[2023-01-05 01:32] VITALS: BP 173/46; PULSE 79
[2023-01-05] MEDS: hydrALAZINE 20 MG/ML Vial 5 MG IV (01:32)
[2023-01-05] MEDS: metroNIDAZOLE 500 MG Tablet PO ×2 (05:25→15:27)
[2023-01-05] MEDS: Heparin Injection (Vial) 5,000 UNIT/ML VIAL 5000 UNIT SC (05:25)
[2023-01-05] MEDS: Lactulose 20 GM/30 ML UDC PO (05:25)
[2023-01-05 05:48] VITALS: BMI 29.7
[2023-01-05 05:52] LABS: Absolute Lymphocyte Count 1.72 X10^3/uL (0.83-4.51); Absolute Neutrophil Count 4.9 X10^3/uL (2.0-7.7); Basophil# 0.16 X10^3/uL; Basophil% 1.7 % (0-1); Eosinophil# 1.59 X10^3/uL; Hematocrit 29.1 % (37-47); Hemoglobin 8.3 g/dL (12.0-15.0); Lymphocyte # 1.72 X10^3/ul (0.83-4.51); Lymphocyte % 18.4 % (19-41); Mean Corp Hgb Conc 28.5 g/dL (32-36); Mean Corpuscular Hgb 27.4 pg (27.0-32.0); Mean Platelet Vol. 11.2 fl (6.2-12.0); Monocyte# 0.96 X10^3/uL; Monocyte% 10.3 % (0-10); NRBC Flagged by Analyzer 0 % (0-5); Neutrophil # 4.88 X10^3/uL (2.7-7.7); Neutrophil % 52.2 % (47-70); Platelet Count 182 K/mm3 (150-450); RBC Distribution Width CV 18.4 % (11.6-14.6); RBC Distribution Width SD 64.4 fl (35.1-43.9); Red Blood Count 3.03 M/mm3 (4.2-5.4); White Blood Count 9.4 K/mm3 (4.4-11.0)
[2023-01-05 06:00] VITALS: BP 147/43; PULSE 83; RESP 20; TEMP 36.8; O2SAT 97
[2023-01-05 06:13] LABS: ALB/GLOB Ratio 0.5 RATIO (0.9-2.4); AST(SGOT) 42 U/L (15-37); Alanine Aminotransfer ALT/SGPT 23 U/L (13-56); Albumin, Serum 1.9 g/dL (3.2-5.0); Alkaline Phosphatase 103 U/L (45-117); Anion Gap 7 (5-15); BUN 28 mg/dL (7-18); BUN/Creat Ratio 12.1 RATIO (10-20); Calcium,Total 9.1 mg/dL (8.5-10.1); Chloride 104 mmol/L (98-107); Creatinine, Serum 2.31 mg/dL (0.55-1.02); EST Glomerular Filtration Rate 22 mL/min (>60); Est Glom Filt Rate - Afr Amer 27 mL/min (>60); Estimated Creatinine Clearance 15.35 ml/min; Globulin 3.7 g/dL (2.2-4.2); Glucose 149 mg/dL (74-106); Potassium 3.6 mmol/L (3.5-5.1); Protein, Total 5.6 g/dL (6.4-8.2); Sodium Level 142 mmol/L (136-145)
[2023-01-05 06:50] LABS: Bedside Glucose 137 mg/dL (74-106)
[2023-01-05] MEDS: Pantoprazole Sodium 40 MG Tablet PO (10:30)
[2023-01-05] MEDS: Glucerna Shake 120 ML LIQUID PO (10:30)
[2023-01-05] MEDS: Labetalol 100 MG Tablet 50 MG PO (10:32)
[2023-01-05] MEDS: Azithromycin 250 MG Tablet 1000 MG PO (10:32)
[2023-01-05] MEDS: Menthol/Lanolin/Calamine/Znox 113 GM Tube 1 APPLIC TOPICAL (10:33)
[2023-01-05 10:59] VITALS: BP 155/58; PULSE 86; RESP 20; TEMP 36.6; O2SAT 99
--- NOTE | 2023-01-05 12:04 | CASEMGMT ---
Addendum entered by Clari Ball 01/05/23 12:27: Ramon from [facility] called back to gather more information on referral. ARCENIO informed original referral had been sent by Amy last week which would have had all details. Ramon informed that referral had been deleted as [facility] does not accept referrals until pt's discharged. ARCENIO updated that based on notes left from Amy that pt is declining to go to SNF, although it is highly recommended by therapy team and Doctors here at [facility]. ARCENIO provided address and contact phone number for pt to Ramon. Ramon shared intent to follow up with pt. Original Note: Social Work SW called [facility] to follow up on referral sent prior by ARCENIO Reyes, last week. Amy was told [facility] could not review referral until pt was discharged from [facility]. Upon morning rounds MD Palacio informed pt would be discharged home today, against advice for pt to go to SNF. ARCENIO attempted to call pt family to discuss but received no answer. Left call back number. ARCENIO called Ramon at [facility] to report rc tpt would be discharged today and that referral made by ARCENIO Reyes last week needs to be reviewed at this time. ARCENIO left callback number for Ramon, should there be a need to discuss pt case further. SAVANA Toledo
[2023-01-05] MEDS: Insulin Lispro 100 UNIT/ML INSULN.PEN SC (12:12)
[2023-01-05 12:45] LABS: Bedside Glucose 247 mg/dL (74-106)
[2023-01-05 13:00] VITALS: O2SAT 99
--- NOTE | 2023-01-05 13:28 | CASEMGMT ---
LISA SALCIDO: Face to face with pt at bedside. Pt alert and appropriate at this time. Discussed plan for home with home healthcare services including SN, PT/OT, and SW. Pt agreeable to this plan and to this LISA SALCIDO contacting pt's family. Call placed to pt's daughter Mile. Voicemail received and was noted to be full so no message could be left. Call placed to pt's spouse Franklin who recommended calling pt's son Franklin. Call placed to son Franklin and voicemail received but this was also full so no message could be left. Call placed back to pt's spouse Franklin who took this RN LOLY's phone number and states he will get a hold of someone to call me back to discuss discharge plan. Angie Kinney RN CM
--- NOTE | 2023-01-05 13:40 | CASEMGMT ---
Addendum entered and electronically signed by Nohelia Kinney RN 01/05/23 13:44: Pt's daughter Mile states she will bring a portable O2 tank for pt at discharge. Angie Kinney RN CM Original Note: LISA SALCIDO: Second call placed to pt's daughter Mile. Mile states she will be in today around 4pm and is aware of pt's pending discharge and states plan remains for [facility] for SN, PT/OT, and SW services. Dr. Palacio notified via Backline of this confirmation. Call placed to Snehal at [facility] to notify of pending DC and continued plan for [facility] services. Confidential voicemail received and message left requesting confirmation of SOC. Angie Kinney RN CM
--- NOTE | 2023-01-05 13:49 | PCM.DC.SUM ---
Providers Date of Admission: 12/31/22 Date of Discharge: 01/05/23 Primary Care Physician: Dr. Josiah Smith MD Consultations 12/31/22 19:58 Consult: Gastroenterology Routine Consulting Provider: [facility] Reason for Consult: hepatic encephalopathy EMERGENT Consult: No MD Notified: Yes Date Notified: 12/31/22 Time Notified: 19:42 Method of Notification: ED Physician Initiated Reason For Visit: HEPATIC ENCEPHALOPATHY Diagnosis Discharge Diagnosis (1) Hepatic encephalopathy: Status: Chronic Code(s): K76.82 - Hepatic encephalopathy Plan #Acute hepatic encephalopathy due to liver cirrhosis on lactulose, neomycin, azithromycin and xifaxan aldactone and lasix on hold still confused. #Chronic cirrhosis: as above #Type 2 diabetes mellitus: on ISS. Accuchecks ACHS #COPD: not in exacerbation. on breathing treatment with bronchodilators #CKD IV: stable. Cr is 2.18 today, which is around her baseline #Moderate malnutrition: dietitian on board. DVT prophylaxis: heparin Disposition: patient is supposed to be going home at discharge. However, patient is quite confused, and I am concerned about her going home. Will call her daughter to discuss goals of care Medications at Discharge Home Medications atorvastatin 40 mg tablet (Lipitor) 40 mg PO QHS cholesterol 02/09/22 labetalol 100 mg tablet 50 mg PO BID blood pressure 05/26/22 lactulose 10 gram/15 mL oral solution 30 ml PO 4X/DAY liver 10/16/22 ondansetron 4 mg disintegrating tablet 4 mg PO Q6H PRN PRN nausea/vomiting 10/16/22 spironolactone 25 mg tablet 25 mg PO DAILY liver #30 tabs 10/19/22 albuterol sulfate 90 mcg/actuation aerosol inhaler 2 puff inhalation Q4H PRN SOB 11/20/22 torsemide 20 mg tablet 20 mg PO BID WATER PILL 11/20/22 glipizide 10 mg tablet 20 mg PO DAILY Check with primary doctor 12/31/22 latanoprost 0.005 % eye drops 1 drp LEFT EYE QPM Check with primary doctor 12/31/22 omeprazole 20 mg capsule,delayed release 20 mg PO DAILY Check with primary doctor 12/31/22 polysaccharide iron complex 150 mg iron capsule (Ferrex) 150 mg PO DAILY Check with primary doctor 12/31/22 polysaccharide iron complex 150 mg iron capsule (Ferrex) 150 mg PO TID Check with primary doctor 12/31/22 potassium chloride 20 mEq tablet,extended release(part/cryst) (Klor-Con M) 20 meq PO BIDCM Check with primary doctor 12/31/22 rifaximin 550 mg tablet (Xifaxan) 550 mg PO BID Check with primary doctor 12/31/22 sodium bicarbonate 650 mg tablet 1,300 mg PO TID Check with primary doctor 12/31/22 Hospital Course Operations None Procedures None Summary of Care Provided Minutes Spent on Discharge: 45 Hospital Course: Patient is a 72 y/o female with a PMH as outlined. She was admitted through the ED on 12/31/2022 on the urging of her band reamer machine operator on account of elevated ammonia. On admission she was noted to have elevated creatinine but this was around her baseline. She was also confused. She was admitted and managed for acute hepatic encephalopathy in the setting of [place]. She had had a history of hepatic encephalopathy in the past and was status post TI PS. She was started on Flagyl and neomycin as well as azithromycin and lactulose. Gastroenterology was consulted. Her confusion gradually improved though she did occasionally have some baseline confusion. She remained stable and was discharged home on 01/05/2023. She is to follow-up with her primary care doctor and band reamer machine operator and was discharged on lactulose to titrate to maintain 2-3 loose stools daily. Patient seen and examined prior to discharge. She had no active complaints and had an uneventful night. Review of systems otherwise negative. Labs and vitals reviewed. Home medication reviewed and reconciled. Physical Exam Const alert and no apparent distress General Appearance: cooperative and comfortable HEENT normocephalic, head/scalp atraumatic, hearing grossly normal bilaterally and moist oral mucous membranes Mouth: oral and palatal mucosa normal Eyes PERRL and EOMs intact bilaterally Neck no lymphadenopathy, supple and no JVD Lymph Lymphatic: no lymphadenopathy noted and no lymphedema noted Resp normal respiratory effort, no retractions, no use of accessory muscles and clear to auscultation bilaterally Cardio regular rate, regular rhythm, S1 normal heart sound, S2 normal heart sound and no murmurs GI normal to inspection, nondistended, normoactive bowel sounds, soft to palpation and non-tender Extremity normal to inspection, full ROM, normal capillary refill, no clubbing, cyanosis or edema and no calf tenderness Skin no rashes or lesions noted General Skin Exam: no breakdown Neuro CN's II-XII intact bilaterally, moves all extremities and no focal motor deficits Neuro Narrative: episodic confusion, though alert and oriented x 3 Motor Exam: strength 5/5 throughout Psych Appearance: appropriate Weight / BMI Weight Weight: 151 lb 7.321 oz Body Mass Index (BMI) 29.7 ABG / Lab / Microbiology Data Result Diagrams: 01/05/23 05:15 01/05/23 05:15 Laboratory: Laboratory Results - last 24 hr 01/04/23 16:30: POC Glucose 183 H 01/04/23 21:15: POC Glucose 138 H 01/05/23 05:15: WBC 9.4, RBC 3.03 L, Hgb 8.3 L, Hct 29.1 L, MCV 96.0, MCH 27.4, MCHC 28.5 L, RDW Std Deviation 64.4 H, RDW Coeff of [place] 18.4 H, Plt Count 182, MPV 11.2, Immature Gran % (Auto) 0.400, Neut % (Auto) 52.2, Lymph % (Auto) 18.4 L, [place] % (Auto) 10.3 H, Eos % (Auto) 17.0 H, Baso % (Auto) 1.7 H, Absolute Neuts (auto) 4.9, Absolute Lymphs (auto) 1.72, Nucleated RBC % 0 01/05/23 05:15: Sodium 142, Potassium 3.6, Chloride 104, Carbon Dioxide 31.0, Anion Gap 7, BUN 28 H, Creatinine 2.31 H, Estim Creat Clear Calc 15.35, Est GFR (MDRD) Af Amer 27 L, Est GFR (MDRD) Non-Af 22 L, BUN/Creatinine Ratio 12.1, Glucose 149 H, Calcium 9.1, Total Bilirubin 0.50, AST 42 H, ALT 23, Alkaline Phosphatase 103, Total Protein 5.6 L, Albumin 1.9 L, Globulin 3.7, Albumin/Globulin Ratio 0.5 L 01/05/23 06:27: POC Glucose 137 H 01/05/23 12:06: POC Glucose 247 H Microbiology: Microbiology 12/31/22 23:50 Nasal Secretion SARS-CoV-2 & FLU Antigen (Rapid) - Final 12/31/22 20:10 Mucosa - Nasopharyngeal Respiratory Panel (PCR) - Final D/C Instructions Discharge Diet: Low fat / Low cholesterol Discharge Activity: Return to Normal Activity Weight Bearing Status: Weight bearing as tolerated Call your doctor if you observe: Fever of 101 or Higher, Shortness of breath, Dizziness, Swelling in the ankles, Chest pain and Increased palpitations (irregular heartbeat) Meaningful Use Info Meaningful Use Diagnoses (Choose all that apply): None applicable Discharge Plan Admission Admit Date/Time: 12/31/22 19:40 Primary Reason for Your Visit: acute hepatic encephalopahy Attending Provider: Floridalma Palacio Primary Care Provider: Josiah Smith Consulting Providers: Ashley Yi ; Rafael Biggs Instructions Patient Instructions: Ammonia Discharge Orders/Prescriptions Prescriptions: Continued atorvastatin [Lipitor] 40 mg Tablet 40 mg PO QHS labetalol 100 mg tablet 50 mg PO BID ondansetron 4 mg tablet,disintegrating 4 mg PO Q6H PRN PRN (Reason: nausea/vomiting) Label Comments: Take 1 tablet by mouth every 6 hours as needed for nausea/vomiting. lactulose 10 gram/15 mL solution 30 ml PO 4X/DAY Label Comments: Take 30 mL by mouth four times daily. spironolactone 25 mg tablet 25 mg PO DAILY Qty: 30 0RF Label Comments: TAKE 1 TABLET BY MOUTH TWICE DAILY torsemide 20 mg Tablet 20 mg PO BID albuterol sulfate 90 mcg/actuation HFA aerosol inhaler 2 puff INHALATION Q4H PRN (Reason: SOB) Label Comments: INHALE 2 PUFFS DIRECTED EVERY 4 HOURS NEEDED latanoprost 0.005 % Drops 1 drp LEFT EYE QPM polysaccharide iron complex [Ferrex 150] 150 mg iron Capsule 150 mg PO DAILY glipizide 10 mg Tablet 20 mg PO DAILY omeprazole 20 mg Capsule,Delayed Release(Dr/Ec) 20 mg PO DAILY polysaccharide iron complex [Ferrex 150] 150 mg iron capsule 150 mg PO TID Rx Instructions: with meals potassium chloride [Klor-Con M20] 20 mEq tablet,ER particles/crystals 20 meq PO BIDCM sodium bicarbonate 650 mg tablet 1,300 mg PO TID Xifaxan 550 mg tablet 550 mg PO BID Discontinued acetaminophen [Tylenol] 325 mg tablet 500 mg PO Q8H PRN (Reason: Pain 1-10 Or Fever) Referrals / Follow Up: Josiah Smith MD [Primary Care Provider] - 01/12/23 2:00 pm FriendSaman DO [Med Staff - Active Staff] - Within 2 Weeks Disposition Disposition (needs filled in before D/C Order can be placed): Home Health Service Charges/Coding Visit Charges Inpatient E&M: 85499 Disch Hosp >30min
--- NOTE | 2023-01-05 13:59 | CASEMGMT ---
LISA SALCIDO: Confirmation received from Snehal at [facility] with SOC now planned for 01/07/23. D/C plan updated for discharge instructions. Angie Kinney RN CM
--- NOTE | 2023-01-05 15:40 | PN_ITS ---
Subjective Subjective Patient seems angry that she is still in the hospital. She is tolerating a diet. She is alert and awake and oriented to person and place but not time. Objective Data Objective Data Vital Signs: Vital Signs Temp Pulse Resp BP Pulse Ox O2 Del Method O2 Flow Rate 97.9 F 86 20 H 155/58 H 99 Nasal Cannula 2 01/05/23 10:59 01/05/23 10:59 01/05/23 10:59 01/05/23 10:59 01/05/23 13:00 01/05/23 13:00 01/05/23 13:00 FiO2 95 01/02/23 06:29 Oxygen Flow Rate (L/min) 2 Oxygen Delivery Method Nasal Cannula Weight: 151 lb 7.321 oz Body Mass Index (BMI) 29.7 Intake & Output: Intake and Output for Last 24 Hours 01/03/23 01/04/23 01/05/23 23:59 23:59 23:59 Intake Total 1150 / 1380 1230 / 1230 490 / 490 Balance 1150 / 1380 1230 / 1230 490 / 490 Lab / Micro Data Result Diagrams: 01/05/23 05:15 01/05/23 05:15 Labs: Laboratory Results - last 24 hr 01/04/23 16:30: POC Glucose 183 H 01/04/23 21:15: POC Glucose 138 H 01/05/23 05:15: WBC 9.4, RBC 3.03 L, Hgb 8.3 L, Hct 29.1 L, MCV 96.0, MCH 27.4, MCHC 28.5 L, RDW Std Deviation 64.4 H, RDW Coeff of [place] 18.4 H, Plt Count 182, MPV 11.2, Immature Gran % (Auto) 0.400, Neut % (Auto) 52.2, Lymph % (Auto) 18.4 L, [place] % (Auto) 10.3 H, Eos % (Auto) 17.0 H, Baso % (Auto) 1.7 H, Absolute Neuts (auto) 4.9, Absolute Lymphs (auto) 1.72, Nucleated RBC % 0 01/05/23 05:15: Sodium 142, Potassium 3.6, Chloride 104, Carbon Dioxide 31.0, Anion Gap 7, BUN 28 H, Creatinine 2.31 H, Estim Creat Clear Calc 15.35, Est GFR (MDRD) Af Amer 27 L, Est GFR (MDRD) Non-Af 22 L, BUN/Creatinine Ratio 12.1, Gl ucose 149 H, Calcium 9.1, Total Bilirubin 0.50, AST 42 H, ALT 23, Alkaline Phosphatase 103, Total Protein 5.6 L, Albumin 1.9 L, Globulin 3.7, Albumin/Globulin Ratio 0.5 L 01/05/23 06:27: POC Glucose 137 H 01/05/23 12:06: POC Glucose 247 H Micro: Microbiology 12/31/22 23:50 Nasal Secretion SARS-CoV-2 & FLU Antigen (Rapid) - Final 12/31/22 20:10 Mucosa - Nasopharyngeal Respiratory Panel (PCR) - Final Physical Exam Const alert and no apparent distress General Appearance: cooperative and comfortable HEENT normocephalic, head/scalp atraumatic, hearing grossly normal bilaterally and moist oral mucous membranes Mouth: oral and palatal mucosa normal Eyes PERRL and EOMs intact bilaterally Neck no lymphadenopathy, supple and no JVD Lymph Lymphatic: no lymphadenopathy noted and no lymphedema noted Resp normal respiratory effort, no retractions, no use of accessory muscles and clear to auscultation bilaterally Cardio regular rate, regular rhythm, S1 normal heart sound, S2 normal heart sound and no murmurs GI normal to inspection, nondistended, normoactive bowel sounds, soft to palpation and non-tender Extremity normal to inspection, full ROM, normal capillary refill, no clubbing, cyanosis or edema and no calf tenderness Skin no rashes or lesions noted General Skin Exam: no breakdown Neuro CN's II-XII intact bilaterally, moves all extremities and no focal motor deficits Neuro Narrative: episodic confusion, though alert and oriented x 3 Motor Exam: strength 5/5 throughout Psych Appearance: appropriate Assessment & Plan Assessment/Plan (1) Acute on chronic kidney failure: QUALIFIERS: Chronic kidney disease stage: stage 3 (moderate) Chronic kidney disease stage 3 subtype: stage 3b (GFR 30-44) (2) Acute hepatic encephalopathy: PLAN: Plan 1. Metabolic encephalopathy secondary to hepatic encephalopathy from chronic cirrhosis of the liver-patient will continue on her lactulose, neomycin, azithromycin and Xifaxan #2 chronic cirrhosis-complicates care, medical course, recovery, and prognosis #3 type 2 diabetes-patient's blood sugars will be monitored, sliding scale insulin will be continued #4 COPD-patient will remain on as needed albuterol aerosol treatments #5 chronic kidney disease stage IV-complicates care, medical course, recovery, and prognosis #6 Moderate protein and caloric malnutrition in the context of chronic disease related to inadequate energy intake/inadequate oral intake. Patient was back to baseline but seems to be angry today for some reason.. Continue lactulose 20 cc 5 times a day, Xifaxan 5 to 50 mg twice a day, Flagyl 500 mg twice a day. Encourage 1 mg/kg of protein on a daily basis. 500 mg of sodium per day and 1.5 L water restriction per day. Charges/Coding Visit Charges Inpatient E&M: 85087 Subs Hosp L3
[2023-01-05 15:56] VITALS: BP 129/43; PULSE 80; RESP 18; TEMP 37.2; O2SAT 93
--- NOTE | 2023-01-05 16:08 | CASEMGMT ---
Social Work SW called [facility] to inform pt would not be returning. Kristin answered and stated she was aware of this already. SW informed to Kristin that pt has wheelchair belonging to the [facility] at [facility] and it has been left at the main entrance. Kristin stated would have transport come slate picker the wheelchair tomorrow. SAVANA Toledo
== END 2023-01-05 15:45 | disposition home health service (06) | DRG 442 ==
LOC: ED 19:05 → MS3 19:58
PROVIDERS: Family Medicine; Hospitalist; Admitting Provider Internal Medicine; Emergency Provider Student in an Organized Health Care Education/Training Program; PCP Family Medicine; Visit Provider Student in an Organized Health Care Education/Training Program
DX: K76.82 Hepatic encephalopathy (principal); E44.0 Moderate protein-calorie malnutrition; N18.4 Chronic kidney disease, stage 4 (severe); E11.22 Type 2 diabetes mellitus with diabetic chronic kidney disease; J44.9 Chronic obstructive pulmonary disease, unspecified; K74.60 Unspecified cirrhosis of liver; E88.09 Other disorders of plasma-protein metabolism, not elsewhere classified; I12.9 Hypertensive chronic kidney disease with stage 1 through stage 4 chronic kidney disease, or unspecified chronic kidney disease; M62.84 Sarcopenia; Z20.822 Contact with and (suspected) exposure to COVID-19; Z79.84 Long term (current) use of oral hypoglycemic drugs; Z79.899 Other long term (current) drug therapy; Z87.891 Personal history of nicotine dependence; Z68.29 Body mass index [BMI] 29.0-29.9, adult
CPT/HCPCS: 36415; 80048; 80053; 80076; 81001; 82140; 82962; 83735; 84484; 85025; 87428; 87633; 93005; 93308; 94640; 94668; 97110; 97162; 97166; 97530; 97535; 99252; 99283; A4216; G0463; J2405

== ENCOUNTER 2023-01-12 05:30 | Inpatient (IN) | payer MEDICARE, MEDICAID, SELFPAY ==
[2023-01-12] VITALS (15 sets, daily range): BP systolic 158–207; BP diastolic 48–84; PULSE 70–98; RESP 12–28; TEMP 36.2–36.8; O2SAT 23–99; BMI 32.8; BMI 31.4
--- NOTE | 2023-01-12 05:55 | EKG12_ITS ---
Test Reason : SOB Blood Pressure : / mmHG Vent. Rate : 085 BPM Atrial Rate : 085 BPM P-R Int : 190 ms QRS Dur : 150 ms QT Int : 402 ms P-R-T Axes : 032 -86 060 degrees QTc Int : 478 ms Normal sinus rhythm Left axis deviation Right bundle branch block Abnormal ECG Confirmed by TEJ ROWELL, PHONG ([id number]), newspaper or periodical editor EDDIE JEAN ([id number]) on 01/14/2023 9:48:23 AM Referred By: Confirmed By:PHONG BURNHAM MD
[2023-01-12] MEDS: Ipratropium/Albuterol Sulfate 3 ML AMPUL.NEB INHALATION ×5 (06:07→22:28)
[2023-01-12] MEDS: MethylPREDNISolone 125 MG/2 ML Vial IV (06:07)
[2023-01-12 06:27] LABS: Absolute Lymphocyte Count 1.54 X10^3/uL (0.83-4.51); Absolute Neutrophil Count 8.4 X10^3/uL (2.0-7.7); Basophil# 0.19 X10^3/uL; Basophil% 1.5 % (0-1); Eosinophil# 1.68 X10^3/uL; Eosinophils% 12.8 % (0-5); Hematocrit 32.7 % (37-47); Lymphocyte # 1.54 X10^3/ul (0.83-4.51); Lymphocyte % 11.8 % (19-41); Mean Corp Hgb Conc 27.5 g/dL (32-36); Mean Corpuscular Hgb 27.3 pg (27.0-32.0); Mean Corpuscular Volume 99.1 fL (81-99); Mean Platelet Vol. 10.9 fl (6.2-12.0); Monocyte# 1.24 X10^3/uL; Monocyte% 9.5 % (0-10); NRBC Flagged by Analyzer 0 % (0-5); Neutrophil # 8.38 X10^3/uL (2.7-7.7); Neutrophil % 63.9 % (47-70); Platelet Count 210 K/mm3 (150-450); RBC Distribution Width CV 17.1 % (11.6-14.6); RBC Distribution Width SD 62.4 fl (35.1-43.9); White Blood Count 13.1 K/mm3 (4.4-11.0)
--- NOTE | 2023-01-12 06:42 | RAD_ITS ---
EXAM: XR CHEST, 1 VIEW CLINICAL INDICATION: cough cough TECHNIQUE: Frontal view of the chest. This report was created using [employer] report generation technology. COMPARISON: Chest x-ray 11/20/2022. FINDINGS: LUNGS AND PLEURAL SPACES: There is a small left pleural effusion with overlying atelectasis or infiltration left lung base. There is bilateral interstitial prominence suggesting CHF. No pneumothorax. HEART: The heart is enlarged. MEDIASTINUM: Central airways and mediastinal contour are unremarkable. BONES/JOINTS: Unremarkable. SOFT TISSUES: Unremarkable. RAD/Chest 1 View (Portable) IMPRESSION: 1. Increased interstitial prominence, suspicious for CHF. 2. Left pleural effusion with overlying atelectasis or infiltration in the left lower lobe. Electronically Signed: Casa Real MD at 7:02 EDT Reading Location ID and State: [facility] / [place] , Service support ,
[2023-01-12 06:51] LABS: Anion Gap 1 (5-15); BUN 40 mg/dL (7-18); BUN/Creat Ratio 17.9 RATIO (10-20); Calcium,Total 9.4 mg/dL (8.5-10.1); Chloride 105 mmol/L (98-107); Creatinine, Serum 2.24 mg/dL (0.55-1.02); EST Glomerular Filtration Rate 23 mL/min (>60); Est Glom Filt Rate - Afr Amer 27 mL/min (>60); Estimated Creatinine Clearance 15.83 ml/min; Glucose 123 mg/dL (74-106); Magnesium 2.4 mg/dL (1.6-2.6); Potassium 6.2 mmol/L (3.5-5.1); Sodium Level 141 mmol/L (136-145); Troponin-I HS 214 pg/mL (3.0-54.0)
[2023-01-12 07:34] LABS: BNP,B-Type NATRIURETIC PEPTIDE 604.2 pg/mL (0-100)
--- NOTE | 2023-01-12 07:42 | NURSING ---
PCU [facility] ACUTE ON CHRONIC RESP FAILURE WITH HYPOXIA, CHF
[2023-01-12 07:46] LABS: D-Dimer Quantitative (DVT/PE) 2.44 FEU/ug/m (0.27-0.49)
--- NOTE | 2023-01-12 07:52 | NURSING ---
ICU 6
[2023-01-12 08:02] LABS: Procalcitonin 0.16 ng/mL (0.00-0.09)
[2023-01-12 08:04] LABS: Potassium 6.5 mmol/L (3.5-5.1)
--- NOTE | 2023-01-12 08:27 | EDS_ITS ---
HPI History of Present Illness Chief Complaint: Shortness of Breath Narrative Narrative: Patient is a 72-year-old female from home with past medical history of COPD chronically on 4 L nasal cannula oxygen as well as hypertension diabetes and hepatic encephalopathy. She was recently admitted to the hospital and discharged 1 week ago secondary to hepatic encephalopathy. Family states patient's been complaining of mild shortness of breath since discharge but that they checked her pulse ox at home and it is normal on her 4 L. They state that last night and this morning she was complaining of increased shortness of breath and her pulse ox was reading into the 80s. Family states they believe her oxygen concentrator was not working and therefore placed on oxygen tanks but despite this had no improvement and therefore EMS was called. EMS states that when they arrived patient was satting in the low 90s on 6 L per as she began talking pulse ox desatted to 85% and secondary to her persistent shortness of breath and now hypoxia despite wearing her nasal cannula oxygen she was brought in for evaluation [facility] Medical History (Updated 01/12/23 @ 08:[address] 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 Thrombocytopenia Home Medications atorvastatin 40 mg tablet (Lipitor) 40 mg PO QHS cholesterol 02/09/22 [History Last Taken 07/17/22] labetalol 100 mg tablet 50 mg PO BID blood pressure 05/26/22 [History Last Taken 07/17/22] lactulose 10 gram/15 mL oral solution 30 ml PO 4X/DAY liver 10/16/22 [History Last Taken Unknown] ondansetron 4 mg disintegrating tablet 4 mg PO Q6H PRN PRN nausea/vomiting 10/16/22 [History Last Taken Unknown] spironolactone 25 mg tablet 25 mg PO DAILY liver #30 tabs 10/19/22 [Rx Last Taken Unknown] albuterol sulfate 90 mcg/actuation aerosol inhaler 2 puff inhalation Q4H PRN SOB 11/20/22 [History Last Taken Unknown] torsemide 20 mg tablet 20 mg PO BID WATER PILL 11/20/22 [History Last Taken Unknown] glipizide 10 mg tablet 10 mg PO BID Check with primary doctor 12/31/22 [History Last Taken Unknown] latanoprost 0.005 % eye drops 1 drp LEFT EYE QPM Check with primary doctor 12/31/22 [History Last Taken Unknown] omeprazole 20 mg capsule,delayed release 20 mg PO DAILY Check with primary doctor 12/31/22 [History Last Taken Unknown] potassium chloride 20 mEq tablet,extended release(part/cryst) (Klor-Con M) 20 meq PO BIDCM Check with primary doctor 12/31/22 [History Last Taken Unknown] rifaximin 550 mg tablet (Xifaxan) 550 mg PO BID Check with primary doctor 12/31/22 [History Last Taken Unknown] sodium bicarbonate 650 mg tablet 1,300 mg PO TID Check with primary doctor 12/31/22 [History Last Taken Unknown] furosemide 20 mg tablet 20 mg PO DAILY 01/12/23 [History Last Taken Unknown] glimepiride 4 mg tablet 8 mg PO BREAKFAST 01/12/23 [History Last Taken Unknown] labetalol 100 mg tablet 50 mg PO BID 01/12/23 [History Last Taken Unknown] pantoprazole 40 mg tablet,delayed release 40 mg PO DAILY 01/12/23 [History Last Taken Unknown] polysaccharide iron complex 150 mg iron capsule (iFerex 150) 150 mg PO DAILY 01/12/23 [History Last Taken Unknown] ramipril 5 mg capsule 5 mg PO QHS 01/12/23 [History Last Taken Unknown] simethicone 80 mg chewable tablet 80 mg PO QHS 01/12/23 [History Last Taken Unknown] Allergy/AdvReac Type Severity Reaction Status Date / Time suture Allergy Mild rash/ Verified 12/31/22 16:10 wound dehisence amoxicillin Allergy Unknown Verified 12/31/22 16:10 azithromycin Allergy Shortness Verified 12/31/22 16:10 of breath celecoxib [From Celebrex] Allergy Other Verified 12/31/22 16:10 ciprofloxacin HCl Allergy Shortness Verified 12/31/22 16:10 [From Cipro] of breath cortisone Allergy Swelling Verified 12/31/22 16:10 doxycycline Allergy Shortness Verified 12/31/22 16:10 of breath erythromycin base Allergy Unknown Verified 12/31/22 16:10 fexofenadine [From Ashlee] Allergy Unknown Verified 12/31/22 16:10 ibuprofen Allergy Shortness Verified 12/31/22 16:10 of breath Iodinated Contrast Media Allergy Shortness Verified 12/31/22 16:10 [DYEE] of breath iodine Allergy Shortness Verified 12/31/22 16:10 of breath levofloxacin [From Levaquin] Allergy Shortness Verified 12/31/22 16:10 of breath lorazepam [From Ativan] Allergy Shortness Verified 12/31/22 16:10 of breath nitrofurantoin Allergy Shortness Verified 12/31/22 16:10 macrocrystalline of breath [From Macrobid] Penicillins Allergy Shortness Verified 12/31/22 16:10 of breath rofecoxib [From Vioxx] Allergy Unknown Verified 12/31/22 16:10 Sulfa (Sulfonamide Allergy Shortness Verified 12/31/22 16:10 Antibiotics) of breath sulfamethoxazole Allergy Shortness Verified 12/31/22 16:10 [From Bactrim] of breath trimethoprim [From Bactrim] Allergy Shortness Verified 12/31/22 16:10 of breath amlodipine [From Norvasc] AdvReac Upset Verified 12/31/22 16:10 Stomach MISC BP MED Allergy Shortness Uncoded 12/31/22 16:10 of breath Family History (Reviewed 12/31/22 @ 15:25 by Cecilia Fuller [employer]PUTER SYSTEMS ARCHITECT, COMPUTER SYSTEMS ARCHITECT-C) Mother Heart disease Brother Heart disease Surgical History History of bilateral salpingo-oophorectomy History of endarterectomy History of laparoscopic cholecystectomy History of oral surgery S/P TIPS (transjugular intrahepatic portosystemic shunt) Social History household members: spouse Smoking Status: Former smoker alcohol intake: never substance use type: does not use ROS ROS ED Constitutional Constitutional ED: Denies chills or fever(s) ENT ENT ED: Denies sore throat Cardiovascular Cardiovascular: Reports other Details: Positive leg swelling ; Denies chest pain Respiratory/Chest Respiratory/Chest: Reports cough and dyspnea Gastrointestinal Gastrointestinal: Denies abdominal pain, diarrhea, nausea or vomiting Genitourinary Genitourinary ED: Denies dysuria Musculoskeletal Musculoskeletal: Denies myalgias Integumentary Denies rash Neurologic Neurologic: Reports weakness; Denies headache(s) Hematologic/Lymphatic Hematologic/Lymphatic: Denies easy bleeding or easy bruising EXAM Physical Exam Const Vital Signs: 01/12/23 05:31 01/12/23 05:35 01/12/23 07:42 Temperature 97.1 F L 97.1 F L 98.3 F Temperature Source Temporal Temporal Temporal Pulse Rate 81 80 77 Respiratory Rate 24 H 24 H 26 H Blood Pressure 165/84 H 165/84 H 196/77 H Blood Pressure Mean 111 111 116 Pulse Ox 96 96 96 Oxygen Delivery Method Nasal Cannula Nasal Cannula Nasal Cannula Oxygen Flow Rate (L/min) 4 4 3 01/12/23 07:42 Temperature 98.3 F Temperature Source Temporal Pulse Rate 77 Respiratory Rate 26 H Blood Pressure 196/77 H Blood Pressure Mean 116 Pulse Ox 95 Oxygen Delivery Method Nasal Cannula Oxygen Flow Rate (L/min) Positive well nourished, well developed and obese General Appearance ED: well developed Nutritional Appearance: obese HEENT Reports dry mucous membranes HEENT Narrative: No tongue or lip swelling noted Mouth ED: Yes dry mucous membranes Mouth: dry mucous membranes Eyes PERRL and EOMs intact bilaterally Neck supple and no JVD Chest Wall palpation of chest normal Resp Resp Narrative: Patient is tachypneic and breath sounds are severely diminished throughout with rhonchi and crackles noted along the left lower lobe Cardio regular rate and regular rhythm Rate: other Other Details: Radial pulses are plus 2 out of 4 bilaterally are equal and GI normal to inspection, nondistended, normoactive bowel sounds, non-tender, non- distended and no masses GI Narrative: No voluntary guarding or rigidity no pulsatile mass or fluid wave Auscultation: normoactive bowel sounds Palpation: soft Extremity Extremity Narrative: Patient has +3-4 pitting edema to the bilateral lower extremities that is equal and symmetric with negative Homans' sign Neuro oriented x3 and CN's II-XII intact bilaterally Sensorium / Orientation: alert Psych Psych Narrative: Patient has a flat affect Skin no rashes or lesions noted Skin Narrative: Skin is pale in color MDM MDM MDM Narrative Medical decision making narrative: Patient arrived to the ER with mild tachypnea but on 4 L nasal cannula oxygen was satting in the mid 90s. She has diffuse leg swelling concerning for congestive heart failure exacerbation however there is also concern for pneumonia or pulmonary embolus with her recent hospitalization. Secondary to this basic labs were obtained and a chest x-ray was ordered. Chest x-ray showed left-sided pleural effusion with vascular congestion most consistent with congestive heart failure exacerbation. However her white blood cell count came back elevated from her discharge value which could be stress response or relation to infectious process. A procalcitonin was then added but is not drastically elevated going against infectious process. The patient's potassium was elevated at 6.2 and there was concern this could be hemolyzed as her potassium has not been up in the past. Repeat potassium was drawn and is consistently high at a value of 6.5. Secondary to this patient was started on calcium bicarb insulin glucose and also given Kayexalate. Blood pressure was slightly high upon arrival but she does have a history of hypertension. However while in the ER the pressure began to spike and therefore she was given hydralazine. Her troponin is slightly elevated to 14 with chart review revealing a baseline of approximately 180. This is most likely secondary to the increased fluid demand in the body leading to cardiac stretch and elevation of the value. As patient was recently hospitalized I did elect to perform a D- dimer. This came back elevated at 2.44 which could be related to developing infection or congestive heart failure or possible PE. The patient is not tachycardic she does not have pleuritic chest pain and therefore we will not st art any type of heparin and just continue to monitor the patient to discuss any further treatment strategies or testing options. However at this time as the patient is showing hyperkalemia along with worsening shortness of breath and pleural effusion this indicates that she is having a congestive heart failure exacerbation and will need to be admitted for further treatment of this as well as hyperkalemia. This plan of care was discussed with the patient and family and both are agreeable to it. Medicine was contacted and they do agree to accept the patient at this time History & Record Review Discussion w/independent historian: EMS personnel, Patient and Family Lab Data Attestation: I reviewed the patient's lab results. Labs: Laboratory Results - last 24 hr 01/12/23 01/12/23 01/12/23 05:43 05:43 05:43 WBC 13.1 H RBC 3.30 L Hgb 9.0 L Hct 32.7 L MCV 99.1 H MCH 27.3 MCHC 27.5 L RDW Std Deviation 62.4 H RDW Coeff of Jordan 17.1 H Plt Count 210 MPV 10.9 Immature Gran % (Auto) 0.500 Neut % (Auto) 63.9 Lymph % (Auto) 11.8 L Dewey % (Auto) 9.5 Eos % (Auto) 12.8 H Baso % (Auto) 1.5 H Absolute Neuts (auto) 8.4 H Absolute Lymphs (auto) 1.54 Nucleated RBC % 0 D-Dimer Quant (PE/DVT) Sodium 141 Potassium 6.2 H* Chloride 105 Carbon Dioxide 35.0 H Anion Gap 1 L BUN 40 H Creatinine 2.24 H Estim Creat Clear Calc 15.83 Est GFR (MDRD) Af Amer 27 L Est GFR (MDRD) Non-Af 23 L BUN/Creatinine Ratio 17.9 Glucose 123 H Calcium 9.4 Magnesium 2.4 Troponin I High Sens 214 H* B-Natriuretic Peptide 604.2 H Procalcitonin 01/12/23 01/12/23 01/12/23 05:43 07:20 07:40 WBC RBC Hgb Hct MCV MCH MCHC RDW Std Deviation RDW Coeff of Jordan Plt Count MPV Immature Gran % (Auto) Neut % (Auto) Lymph % (Auto) Dewey % (Auto) Eos % (Auto) Baso % (Auto) Absolute Neuts (auto) Absolute Lymphs (auto) Nucleated RBC % D-Dimer Quant (PE/DVT) 2.44 H* Sodium Potassium 6.5 H* Chloride Carbon Dioxide Anion Gap BUN Creatinine Estim Creat Clear Calc Est GFR (MDRD) Af Amer Est GFR (MDRD) Non-Af BUN/Creatinine Ratio Glucose Calcium Magnesium Troponin I High Sens B-Natriuretic Peptide Procalcitonin 0.16 H Radiography Diagnostic Testing: Clinical Impression(s) from Imaging Studies Chest X-Ray 01/12/23 06:42 IMPRESSION: 1. Increased interstitial prominence, suspicious for CHF. 2. Left pleural effusion with overlying atelectasis or infiltration in the left lower lobe. Electronically Signed: Casa Real MD at 7:02 EDT , Chest x-ray as interpreted by the emergency medicine physician reveals increased vascular congestion with pleural effusion in the left lower lobe Management Discussion w/another healthcare provider: Hospitalist Discharge Plan Triage Chief Complaint: Shortness of Breath ED Provider: Nawaf Brumfield Dx/Rx/DC Orders Clinical Impression: Acute exacerbation of CHF (congestive heart failure), Hypertension, Diabetes mellitus, Acute hyperkalemia, Chronic kidney disease Primary Care Provider: Josiah Smith Disposition Disposition: Acute Care Hospital [facility]
--- NOTE | 2023-01-12 08:32 | PCM.HP.STD ---
HPI - General General Date of Admission: 01/12/23 Date of Service: 01/12/23 Chief Complaint: SOB HPI Narrative Sol Ann is a 72 with history of type 2 diabetes mellitus, nonalcoholic liver cirrhosis, CKD stage III unclear subtype, chronic hypoxic respiratory failure/COPD on 4 L O2 history of hepatic encephalopathy status post TIPS who presented to [facility] 01/12/2023 for progressively increasing shortness of breath. She usually wears 4 L of home O2 and was increased to 6 L and found to be 85%. Was given steroids and breathing treatment in the ED and was back on her home 4 L but remained tachypneic. Additionally had white blood cell count of 13.1, D-dimer 2.44, potassium of 6.1 with a BUN of 48 and a creatinine of 2. 2 4 which is similar to previous and a troponin of 214 as well as BNP of 604. Pro-Marek 0.16. Initially vitally stable however BP trended up to 207/58 with a heart rate of 77. In ED she was given Methylpred and DuoNeb for her breathing and for her hyperkalemia she was given calcium gluconate, dextrose, insulin, sodium bicarb, Kayexalate and for blood pressure she was given hydralazine x1. Hospitalist consulted for admission. Of note she was just discharged from her facility 01/05/2023 after an admission for acute hepatic encephalopathy. She was started on Flagyl, neomycin, azithromycin and lactulose and GI was consulted. She did improved overall and was discharged home 01/05 instructed to continue lactulose to maintain 2-3 stools daily. Patient seen in ED with at bedside and he reports she had been having increasing shortness of breath and swelling and then today it worsened and she has been somewhat confused. Has had slight cough. Denies chest pain. Has also had some right eye discharge. Patient reports her breathing is better now but keeps quickly falling back asleep and was unable to complete a full ROS. [facility] Medical History (Updated 01/12/23 @ 08:[address] 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 Thrombocytopenia Home Medications atorvastatin 40 mg tablet (Lipitor) 40 mg PO QHS cholesterol 02/09/22 [History Last Taken 07/17/22] labetalol 100 mg tablet 50 mg PO BID blood pressure 05/26/22 [History Last Taken 07/17/22] lactulose 10 gram/15 mL oral solution 30 ml PO 4X/DAY liver 10/16/22 [History Last Taken Unknown] ondansetron 4 mg disintegrating tablet 4 mg PO Q6H PRN PRN nausea/vomiting 10/16/22 [History Last Taken Unknown] spironolactone 25 mg tablet 25 mg PO DAILY liver #30 tabs 10/19/22 [Rx Last Taken Unknown] albuterol sulfate 90 mcg/actuation aerosol inhaler 2 puff inhalation Q4H PRN SOB 11/20/22 [History Last Taken Unknown] torsemide 20 mg tablet 20 mg PO BID WATER PILL 11/20/22 [History Last Taken Unknown] glipizide 10 mg tablet 10 mg PO BID Check with primary doctor 12/31/22 [History Last Taken Unknown] latanoprost 0.005 % eye drops 1 drp LEFT EYE QPM Check with primary doctor 12/31/22 [History Last Taken Unknown] omeprazole 20 mg capsule,delayed release 20 mg PO DAILY Check with primary doctor 12/31/22 [History Last Taken Unknown] potassium chloride 20 mEq tablet,extended release(part/cryst) (Klor-Con M) 20 meq PO BIDCM Check with primary doctor 12/31/22 [History Last Taken Unknown] rifaximin 550 mg tablet (Xifaxan) 550 mg PO BID Check with primary doctor 12/31/22 [History Last Taken Unknown] sodium bicarbonate 650 mg tablet 1,300 mg PO TID Check with primary doctor 12/31/22 [History Last Taken Unknown] furosemide 20 mg tablet 20 mg PO DAILY 01/12/23 [History Last Taken Unknown] glimepiride 4 mg tablet 8 mg PO BREAKFAST 01/12/23 [History Last Taken Unknown] labetalol 100 mg tablet 50 mg PO BID 01/12/23 [History Last Taken Unknown] pantoprazole 40 mg tablet,delayed release 40 mg PO DAILY 01/12/23 [History Last Taken Unknown] polysaccharide iron complex 150 mg iron capsule (iFerex 150) 150 mg PO DAILY 01/12/23 [History Last Taken Unknown] ramipril 5 mg capsule 5 mg PO QHS 01/12/23 [History Last Taken Unknown] simethicone 80 mg chewable tablet 80 mg PO QHS 01/12/23 [History Last Taken Unknown] Allergy/AdvReac Type Severity Reaction Status Date / Time suture Allergy Mild rash/ Verified 12/31/22 16:10 wound dehisence amoxicillin Allergy Unknown Verified 12/31/22 16:10 azithromycin Allergy Shortness Verified 12/31/22 16:10 of breath celecoxib [From Celebrex] Allergy Other Verified 12/31/22 16:10 ciprofloxacin HCl Allergy Shortness Verified 12/31/22 16:10 [From Cipro] of breath cortisone Allergy Swelling Verified 12/31/22 16:10 doxycycline Allergy Shortness Verified 12/31/22 16:10 of breath erythromycin base Allergy Unknown Verified 12/31/22 16:10 fexofenadine [From Ashlee] Allergy Unknown Verified 12/31/22 16:10 ibuprofen Allergy Shortness Verified 12/31/22 16:10 of breath Iodinated Contrast Media Allergy Shortness Verified 12/31/22 16:10 [DYEE] of breath iodine Allergy Shortness Verified 12/31/22 16:10 of breath levofloxacin [From Levaquin] Allergy Shortness Verified 12/31/22 16:10 of breath lorazepam [From Ativan] Allergy Shortness Verified 12/31/22 16:10 of breath nitrofurantoin Allergy Shortness Verified 12/31/22 16:10 macrocrystalline of breath [From Macrobid] Penicillins Allergy Shortness Verified 12/31/22 16:10 of breath rofecoxib [From Vioxx] Allergy Unknown Verified 12/31/22 16:10 Sulfa (Sulfonamide Allergy Shortness Verified 12/31/22 16:10 Antibiotics) of breath sulfamethoxazole Allergy Shortness Verified 12/31/22 16:10 [From Bactrim] of breath trimethoprim [From Bactrim] Allergy Shortness Verified 12/31/22 16:10 of breath amlodipine [From Norvasc] AdvReac Upset Verified 12/31/22 16:10 Stomach MISC BP MED Allergy Shortness Uncoded 12/31/22 16:10 of breath Family History (Reviewed 12/31/22 @ 15:25 by Cecilia Fuller [employer] MANAGER [employer], [employer] MANAGER [employer]-C) Mother Heart disease Brother Heart disease Surgical History History of bilateral salpingo-oophorectomy History of endarterectomy History of laparoscopic cholecystectomy History of oral surgery S/P TIPS (transjugular intrahepatic portosystemic shunt) Social History (Reviewed 12/31/22 @ 15:25 by Cecilia Fuller [employer]CI[employer]ARY SERVICES MANAGER [employer]ER[employer]Y, ANCILLARY SERVICES MANAGER [employer]ER[employer]-C) household members: spouse Smoking Status: Former smoker alcohol intake: never substance use type: does not use ROS ROS Narrative Your shortness of breath which is slightly better after nebulizer and steroids, no chest pain, minimal cough, did diffuse leg swelling, right eye crusting. Unable to obtain further ROS due to mental status Vital Signs Vital Signs Vital Signs: 01/12/23 05:31 01/12/23 05:35 01/12/23 07:42 Temperature 97.1 F L 97.1 F L 98.3 F Temperature Source Temporal Temporal Temporal Pulse Rate 81 80 77 Respiratory Rate 24 H 24 H 26 H Blood Pressure 165/84 H 165/84 H 196/77 H Blood Pressure Mean 111 111 116 Pulse Ox 96 96 96 Oxygen Delivery Method Nasal Cannula Nasal Cannula Nasal Cannula Oxygen Flow Rate (L/min) 4 4 3 01/12/23 07:42 01/12/23 08:20 Temperature 98.3 F Temperature Source Temporal Pulse Rate 77 77 Respiratory Rate 26 H 26 H Blood Pressure 196/77 H 207/58 H Blood Pressure Mean 116 107 Pulse Ox 95 96 Oxygen Delivery Method Nasal Cannula Nasal Cannula Oxygen Flow Rate (L/min) 3 Weight Weight: 76.4 kg Body Mass Index (BMI) 32.8 Physical Exam Narrative General: Except answers questions somewhat appropriately but falls quickly back to sleep and at some point was no longer cooperating with exam and just wanted to sleep HEENT: Atraumatic, normocephalic Eyes: Anicteric, extraocular movements grossly intact, has matting of right eye Neck: Supple Respiratory: Slightly tachypneic, somewhat diminished at left lung base Cardiovascular: Regular rate and rhythm GI: Soft, nontender, nondistended Extremities: 1-2+ bilateral lower extremity pitting edema Musculoskeletal: Moving all extremities Neuro: No overt focal neurological deficits but difficulty cooperating with that exam Skin: No rashes appreciated Psych: Initially cooperative but less so as exam continued Results Lab / Micro Data Result Diagrams: 01/12/23 05:43 01/12/23 07:40 Labs: Laboratory Results - last 24 hr 01/12/23 05:43: WBC 13.1 H, RBC 3.30 L, Hgb 9.0 L, Hct 32.7 L, MCV 99.1 H, MCH 27.3, MCHC 27.5 L, RDW Std Deviation 62.4 H, RDW Coeff of [place] 17.1 H, Plt Count 210, MPV 10.9, Immature Gran % (Auto) 0.500, Neut % (Auto) 63.9, Lymph % (Auto) 11.8 L, [place] % (Auto) 9.5, Eos % (Auto) 12.8 H, Baso % (Auto) 1.5 H, Absolute Neuts (auto) 8.4 H, Absolute Lymphs (auto) 1.54, Nucleated RBC % 0 01/12/23 05:43: Sodium 141, Potassium 6.2 H*, Chloride 105, Carbon Dioxide 35.0 H, Anion Gap 1 L, BUN 40 H, Creatinine 2.24 H, Estim Creat Clear Calc 15.83, Est GFR (MDRD) Af Amer 27 L, Est GFR (MDRD) Non-Af 23 L, BUN/Creatinine Ratio 17.9, Glucose 123 H, Calcium 9.4, Magnesium 2.4, Troponin I High Sens 214 H* 01/12/23 05:43: B-Natriuretic Peptide 604.2 H 01/12/23 05:43: D-Dimer Quant (PE/DVT) 2.44 H* 01/12/23 07:20: Procalcitonin 0.16 H 01/12/23 07:40: Potassium 6.5 H* Micro: Microbiology 01/12/23 06:19 Nasal Secretion SARS-CoV-2 & FLU Antigen (Rapid) - Final Radiology Impression Chest X-Ray 01/12/23 06:42 IMPRESSION: 1. Increased interstitial prominence, suspicious for CHF. 2. Left pleural effusion with overlying atelectasis or infiltration in the left lower lobe. Electronically Signed: Casa Real MD at 7:02 EDT , Assessment & Plan Assessment/Plan (1) Acute exacerbation of CHF (congestive heart failure): (2) Acute hyperkalemia: (3) Chronic kidney disease: PLAN: Plan #Acute hypoxia and SOB on chronic respiratory failure on 4L home O2/COPD/hx chronic HFpEF -AECHF vs a COPD versus less likely PE -Chest x-ray with increased interstitial prominence suspicious for CHF and left pleural effusion with overlying atelectasis or infiltration -BNP 604, D-dimer 2.44, Pro-Marek 0.16 -Given her worsening peripheral edema as well as elevated BNP and chest x-ray findings high suspicion for fluid overload/AECHF, will start Lasix -Last echocardiogram 01/01/2023 with EF of 70% but unable to assess diastolic dysfunction. Echo 02/10/2022 commented on moderate to severe mitral annular calcification, RVSP of 44 and velocities suggestive of diastolic dysfunction -Did improve after receiving DuoNebs and methylprednisone, not wheezing and do not have high suspicion for AECOPD requiring steroids but given her history and response we will continue DuoNebs -Low suspicion for pneumonia, Pro-Marek very minimally elevated at 0.16, white blood cell count minimally elevated but could be reactive, afebrile. Cultures were obtained, if does not clinically improve or cx positive will begin antibiotics suspect this is related to volume overload -COVID and flu wnl, will check resp panel -Incentive spirometry -Oxygenation improved but given work of breathing while start on BiPAP -Repeat chest x-ray in a.m. -We will consider CTA that was not tachycardic, no longer hypoxic after breathing treatment and steroids and has had no chest pain, suspect elevated D-dimer is multifactorial. Given kidney function hesitant to give IV contrast and given mental status do not think she can tolerate VQ scan. Will obtain lower extremity venous duplex #Hyperkalemia -Confirmed with repeat, repeat 6.3 -Possibly iatrogenic with oral potassium chloride in addition to ramipril and spironolactone that was on 20 of Lasix -EKG without peaked T waves -Received calcium gluconate, Kayexalate, glucose and insulin in ED -Monitor on telemetry and will repeat BMP in several hours -Hold home spironolactone and home potassium supplementation, hold ramipril #Hypertensive urgency -Hydralazine x1 in the ED and given nitro paste -holding ramipril d/t hyperkalemia and labetalol d/t resp status -Change to coreg, PRNs added, reported allg to amlodipine, will monitor closely and continue to add medications and adjust as warranted #CKD stage IIIb -Does appear to be close to baseline #Type 2 diabetes mellitus -Glucose checks and sliding scale insulin -Hold oral hypoglycemics #Right eye conjunctivitis -appears to have possible bacterial conjunctivitis with matting, will start topical #Encephalopathy, suspect metabolic -We will check ammonia given her history of hepatic encephalopathy that may be due to underlying infection versus CHF, less likely hypertension as her altered level of consciousness preceded her SBP greater than 200 -Also obtain ABG #hx N[place]ñez cirrhosis with history of TIPS procedure -Check ammonia -Continue rifaximin -do not see lacutlose on home med list, will resume list -Giving lasix, holding spironolactone given her hyperkalemia -check liver profile #DVT ppx: SCDs Ashley Yi MD Time spent in the patient's overall evaluation,decision-making process, review of diagnostic data, adjustment of management, discussion with other providers, nursing nursing and ancillary staff involved in patient's care documentation, 68 minutes Charges/Coding Visit Charges Inpatient E&M: 87783 Init Hosp L2
[2023-01-12] MEDS: hydrALAZINE 20 MG/ML Vial IV (08:34)
[2023-01-12] MEDS: Nitroglycerin Oint 1 INCH PACKET TD (09:27)
[2023-01-12] MEDS: Dextrose 50%-Water 25 GM/50 ML DISP.SYRIN IV (09:28)
[2023-01-12] MEDS: Sodium Bicarbonate 8.4% 50 ML Syringe 50 MEQ IV (09:28)
[2023-01-12] MEDS: Sodium Polystyrene Sulfonate 15 GM/60 ML UDC PO (09:29)
[2023-01-12] MEDS: Calcium Gluconate IV 3 GM in Syringe 1 EACH IV (09:32)
[2023-01-12] MEDS: Insulin Lispro 10 UNIT in Syringe 0 ML 6 UNIT IV (09:32)
--- NOTE | 2023-01-12 10:18 | VDLE_ITS ---
Reason For Study: Elevated D-dimer RIGHT LEFT GSV is normal. GSV is normal. CFV is compressible, spontaneous, phasic, CFV is compressible, spontaneous, phasic, competent and demonstrates normal competent, and demonstrates normal augmentation. augmentation. FV is compressible, spontaneous, phasic, FV is compressible, spontaneous, phasic, competent and demonstrates normal competent and demonstrates normal augmentation. augmentation. POP V is compressible, spontaneous, phasic, POP V is compressible, spontaneous, phasic, competent and demonstrates normal competent and demonstrates normal augmentation. augmentation. T/P Trunk is compressible. T/P Trunk is compressible. PTV is compressible. PTV is compressible. RT PerV is compressible. LT PerV is compressible. Procedure This is a venous duplex using B-mode, color flow and spectral Doppler. Exam performed portable in ICU/CCU. Technically difficult study due to involuntary movement of legs. A preliminary report was called and/or faxed to ICU. VL/Venous Duplex US - Royal Extrem Interpretation Summary Deep veins of the bilateral lower extremities are patent and compressible segme ntally. There is no evidence of bilateral lower extremity deep vein thrombosis. The bilateral great saphenous veins appear patent and compressible segmentally. Ordering Physician: Ashley Yi Referring Physician: MD Sarah Josiah Performed By: Arline Wolfe RVT
--- NOTE | 2023-01-12 11:00 | CPS ---
Sent Backline text to Dr Yi letting her know CO2 result and results are [facility].
[2023-01-12 11:16] LABS: Allen Test Positive; Base Excess 10 mmol/L (-2 to +2); Bicarbonate 35.7 mmol/L (22-26); Blood Gas Specimen Type ART; FI02 35; Mode BiLevel; O2 Delivery Device BiPAP; PO2 92 mmHG (75-100); SITE R Radial; SO2 97 % (95-99); Total Carbon Dioxide 38 mmol/L; pCO2 61.9 mmHg (35-45); pH 7.37 (7.35-7.45)
[2023-01-12 11:53] LABS: Anion Gap 5 (5-15); BUN 38 mg/dL (7-18); BUN/Creat Ratio 16.7 RATIO (10-20); Calcium,Total 9.9 mg/dL (8.5-10.1); Chloride 106 mmol/L (98-107); Creatinine, Serum 2.28 mg/dL (0.55-1.02); EST Glomerular Filtration Rate 22 mL/min (>60); Est Glom Filt Rate - Afr Amer 27 mL/min (>60); Estimated Creatinine Clearance 15.55 ml/min; Glucose 235 mg/dL (74-106); Potassium 6.1 mmol/L (3.5-5.1); Sodium Level 141 mmol/L (136-145)
[2023-01-12] MEDS: 0.9% Saline Lock 10 ML Syringe IV (11:56)
[2023-01-12] MEDS: Insulin Lispro 100 UNIT/ML INSULN.PEN SC ×3 (11:57→23:18)
[2023-01-12] MEDS: Lactulose 20 GM/30 ML UDC PO ×2 (11:58→23:18)
[2023-01-12] MEDS: Ciprofloxacin 0.3% 2.5ml Bottle 2 DRP RIGHT EYE ×4 (11:58→23:18)
[2023-01-12] MEDS: rifAXIMin 550 MG Tablet PO ×2 (11:59→23:18)
[2023-01-12] MEDS: Carvedilol 12.5 MG Tablet PO ×2 (11:59→17:32)
[2023-01-12] MEDS: Pantoprazole Sodium 40 MG Tablet PO (11:59)
[2023-01-12] MEDS: Iron Polysaccharide Complex 150 MG CAPSULE PO (11:59)
[2023-01-12] MEDS: Furosemide 40 MG/4 ML Vial IV (12:00)
[2023-01-12 12:10] LABS: AST(SGOT) 52 U/L (15-37); Alanine Aminotransfer ALT/SGPT 30 U/L (13-56); Albumin, Serum 2.3 g/dL (3.2-5.0); Alkaline Phosphatase 121 U/L (45-117); Bilirubin, Direct 0.35 mg/dL (0.00-0.30); Globulin 4.2 g/dL (2.2-4.2); Protein, Total 6.5 g/dL (6.4-8.2); Troponin-I HS 220 pg/mL (3.0-54.0)
[2023-01-12 12:30] LABS: Bedside Glucose 225 mg/dL (74-106)
[2023-01-12 15:57] LABS: Anion Gap 1 (5-15); BUN 44 mg/dL (7-18); BUN/Creat Ratio 18.6 RATIO (10-20); Calcium,Total 9.9 mg/dL (8.5-10.1); Chloride 108 mmol/L (98-107); Creatinine, Serum 2.36 mg/dL (0.55-1.02); EST Glomerular Filtration Rate 21 mL/min (>60); Est Glom Filt Rate - Afr Amer 26 mL/min (>60); Estimated Creatinine Clearance 15.02 ml/min; Glucose 231 mg/dL (74-106); Potassium 5.4 mmol/L (3.5-5.1); Sodium Level 144 mmol/L (136-145)
[2023-01-12 16:31] LABS: Bedside Glucose 194 mg/dL (74-106)
[2023-01-12 20:41] LABS: Anion Gap 2 (5-15); BUN 41 mg/dL (7-18); BUN/Creat Ratio 17.9 RATIO (10-20); Calcium,Total 8.3 mg/dL (8.5-10.1); Chloride 111 mmol/L (98-107); Creatinine, Serum 2.29 mg/dL (0.55-1.02); EST Glomerular Filtration Rate 22 mL/min (>60); Est Glom Filt Rate - Afr Amer 27 mL/min (>60); Estimated Creatinine Clearance 15.48 ml/min; Glucose 195 mg/dL (74-106); Potassium 5.2 mmol/L (3.5-5.1); Sodium Level 145 mmol/L (136-145)
--- NOTE | 2023-01-12 23:09 | CPS ---
[2235] Pt. ripped her BiPAP mask off at the end of her treatment. Pt. claimed she wanted to go home and clean up the living room. I explained to her that she was in the ICU at [facility], but she wasn't comprehending what I was explaining to her. I asked her if she'd be willing to put the BiPAP mask back on, but she adamantly refused. RN notified of interaction.
[2023-01-12] MEDS: Atorvastatin Calcium 40 MG Tablet PO (23:18)
[2023-01-12 23:51] LABS: Bedside Glucose 157 mg/dL (74-106)
[2023-01-13] VITALS (13 sets, daily range): BP systolic 132–158; BP diastolic 41–98; PULSE 70–90; RESP 12–19; TEMP 36.5–37; O2SAT 93–100; BMI 31.6
[2023-01-13 05:03] LABS: Absolute Lymphocyte Count 0.67 X10^3/uL (0.83-4.51); Absolute Neutrophil Count 7.6 X10^3/uL (2.0-7.7); Basophil# 0.01 X10^3/uL; Basophil% 0.1 % (0-1); Hematocrit 26.5 % (37-47); Hemoglobin 7.7 g/dL (12.0-15.0); Lymphocyte # 0.67 X10^3/ul (0.83-4.51); Lymphocyte % 7.6 % (19-41); Mean Corp Hgb Conc 29.1 g/dL (32-36); Mean Corpuscular Hgb 27.8 pg (27.0-32.0); Mean Corpuscular Volume 95.7 fL (81-99); Mean Platelet Vol. 12.1 fl (6.2-12.0); Monocyte# 0.49 X10^3/uL; Monocyte% 5.5 % (0-10); NRBC Flagged by Analyzer 0 % (0-5); Neutrophil # 7.64 X10^3/uL (2.7-7.7); Neutrophil % 86.3 % (47-70); Platelet Count 185 K/mm3 (150-450); RBC Distribution Width CV 17.2 % (11.6-14.6); RBC Distribution Width SD 59.6 fl (35.1-43.9); Red Blood Count 2.77 M/mm3 (4.2-5.4); White Blood Count 8.9 K/mm3 (4.4-11.0)
[2023-01-13 05:16] LABS: D-Dimer Quantitative (DVT/PE) 1.95 FEU/ug/m (0.27-0.49)
[2023-01-13 05:22] LABS: ALB/GLOB Ratio 0.5 RATIO (0.9-2.4); AST(SGOT) 65 U/L (15-37); Alanine Aminotransfer ALT/SGPT 27 U/L (13-56); Albumin, Serum 1.8 g/dL (3.2-5.0); Alkaline Phosphatase 94 U/L (45-117); Anion Gap 2 (5-15); BUN 49 mg/dL (7-18); BUN/Creat Ratio 18.8 RATIO (10-20); Calcium,Total 9.4 mg/dL (8.5-10.1); Chloride 107 mmol/L (98-107); Creatinine, Serum 2.61 mg/dL (0.55-1.02); EST Glomerular Filtration Rate 19 mL/min (>60); Est Glom Filt Rate - Afr Amer 23 mL/min (>60); Estimated Creatinine Clearance 13.58 ml/min; Globulin 3.6 g/dL (2.2-4.2); Glucose 166 mg/dL (74-106); Potassium 5.6 mmol/L (3.5-5.1); Protein, Total 5.4 g/dL (6.4-8.2); Sodium Level 144 mmol/L (136-145)
[2023-01-13 05:27] LABS: Procalcitonin 0.54 ng/mL (0.00-0.09)
[2023-01-13 05:32] LABS: BNP,B-Type NATRIURETIC PEPTIDE 442.6 pg/mL (0-100)
--- NOTE | 2023-01-13 05:55 | RAD_ITS ---
INDICATION: sob, chf EXAMINATION/TECHNIQUE: X-RAY - AP view of chest COMPARISON: Chest x-ray from one day prior FINDINGS: LINES/DEVICES: None. LUNGS: Prominent central pulmonary vasculature again noted. Persistent bibasilar opacities. Left pleural effusion remains. No detectable pneumothorax. MEDIASTINUM AND CARDIOVASCULAR STRUCTURES: Stable slightly prominent heart shadow, magnified by imaging technique. Atherosclerotic calcifications along aorta. BONES AND SOFT TISSUES: Skeletal degenerative changes. Surgical clips within upper abdomen. RAD/Chest 1 View (Portable) IMPRESSION: Mild cardiopulmonary congestion with bibasilar atelectasis versus infiltrate and left pleural effusion. Electronically Signed: Josiah Musa MD at 7:54 EDT ,
[2023-01-13 06:15] LABS: Bedside Glucose 172 mg/dL (74-106)
[2023-01-13] MEDS: Ipratropium/Albuterol Sulfate 3 ML AMPUL.NEB INHALATION ×4 (07:06→19:12)
[2023-01-13] MEDS: Ciprofloxacin 0.3% 2.5ml Bottle 2 DRP RIGHT EYE ×5 (07:22→20:27)
[2023-01-13] MEDS: Lactulose 20 GM/30 ML UDC PO ×4 (07:22→20:27)
[2023-01-13] MEDS: Insulin Lispro 100 UNIT/ML INSULN.PEN SC ×4 (08:37→20:30)
[2023-01-13] MEDS: Iron Polysaccharide Complex 150 MG CAPSULE PO (08:38)
[2023-01-13] MEDS: Carvedilol 12.5 MG Tablet PO ×2 (08:38→17:26)
[2023-01-13] MEDS: rifAXIMin 550 MG Tablet PO ×2 (08:38→20:27)
[2023-01-13] MEDS: Pantoprazole Sodium 40 MG Tablet PO (08:38)
[2023-01-13] MEDS: Furosemide 40 MG/4 ML Vial IV (08:39)
--- NOTE | 2023-01-13 08:51 | PCM.PN.HOSP ---
Reason for Visit Reason for Visit: Diagnoses Hyperkalemia (01/12/23) Heart failure, unspecified (01/12/23) Chronic kidney disease, unspecified (01/12/23) Subjective Subjective Somewhat more awake and alert this morning, reports breathing is better than it had been. Did not voice other complaints Objective Data Objective Data Vital Signs: Vital Signs Temp Pulse Resp BP Pulse Ox O2 Del Method O2 Flow Rate 98.2 F 90 18 132/56 H 94 Nasal Cannula 2 01/13/23 08:34 01/13/23 08:34 01/13/23 08:34 01/13/23 08:34 01/13/23 08:34 01/13/23 08:34 01/13/23 08:34 FiO2 28 01/12/23 22:28 Oxygen Flow Rate (L/min) 2 Oxygen Delivery Method Nasal Cannula Weight: 73 kg Body Mass Index (BMI) 31.6 Intake & Output: Intake and Output for Last 24 Hours 01/11/23 01/12/23 01/13/23 23:59 23:59 23:59 Intake Total 250 / 490 360 / 360 Output Total 400 / 900 500 / 500 Balance -150 / -410 -140 / -140 Lab / Micro Data Result Diagrams: 01/13/23 04:55 01/13/23 04:55 Labs: Laboratory Results - last 24 hr 01/12/23 11:19: Total Bilirubin 0.90, Direct Bilirubin 0.35 H, AST 52 H, ALT 30, Alkaline Phosphatase 121 H, Troponin I High Sens 220 H*, Total Protein 6.5, Albumin 2.3 L, Globulin 4.2 01/12/23 11:19: Ammonia 95.0 H 01/12/23 11:19: Sodium 141, Potassium 6.1 H*, Chloride 106, Carbon Dioxide 30.0, Anion Gap 5, BUN 38 H, Creatinine 2.28 H, Estim Creat Clear Calc 15.55, Est GFR (MDRD) Af Amer 27 L, Est GFR (MDRD) Non-Af 22 L, BUN/Creatinine Ratio 16.7, Glucose 235 H, Calcium 9.9 01/12/23 11:54: POC Glucose 225 H 01/12/23 15:25: Sodium 144, Potassium 5.4 H, Chloride 108 H, Carbon Dioxide 35.0 H, Anion Gap 1 L, BUN 44 H, Creatinine 2.36 H, Estim Creat Clear Calc 15.02, Est GFR (MDRD) Af Amer 26 L, Est GFR (MDRD) Non-Af 21 L, BUN/Creatinine Ratio 18.6, Glucose 231 H, Calcium 9.9 01/12/23 16:05: POC Glucose 194 H 01/12/23 20:16: Sodium 145, Potassium 5.2 H, Chloride 111 H, Carbon Dioxide 32.0, Anion Gap 2 L, BUN 41 H, Creatinine 2.29 H, Estim Creat Clear Calc 15.48, Est GFR (MDRD) Af Amer 27 L, Est GFR (MDRD) Non-Af 22 L, BUN/Creatinine Ratio 17.9, Glucose 195 H, Calcium 8.3 L 01/12/23 22:55: POC Glucose 157 H 01/13/23 04:55: WBC 8.9, RBC 2.77 L, Hgb 7.7 L, Hct 26.5 L, MCV 95.7, MCH 27.8, MCHC 29.1 L D, RDW Std Deviation 59.6 H, RDW Coeff of [place] 17.2 H, Plt Count 185, MPV 12.1 H, Immature Gran % (Auto) 0.500, Neut % (Auto) 86.3 H, Lymph % (Auto) 7.6 L, [place] % (Auto) 5.5, Eos % (Auto) 0.0, Baso % (Auto) 0.1, Absolute Neuts (auto) 7.6, Absolute Lymphs (auto) 0.67 L, Nucleated RBC % 0 01/13/23 04:55: D-Dimer Quant (PE/DVT) 1.95 H* 01/13/23 04:55: Sodium 144, Potassium 5.6 H, Chloride 107, Carbon Dioxide 35.0 H, Anion Gap 2 L, BUN 49 H, Creatinine 2.61 H, Estim Creat Clear Calc 13.58, Est GFR (MDRD) Af Amer 23 L, Est GFR (MDRD) Non-Af 19 L, BUN/Creatinine Ratio 18.8, Glucose 166 H, Calcium 9.4, Total Bilirubin 0.40, AST 65 H, ALT 27, Alkaline Phosphatase 94, Total Protein 5.4 L, Albumin 1.8 L, Globulin 3.6, Albumin/Globulin Ratio 0.5 L 01/13/23 04:55: B-Natriuretic Peptide 442.6 H 01/13/23 04:55: Procalcitonin 0.54 H 01/13/23 05:57: POC Glucose 172 H Micro: Microbiology 01/12/23 10:50 Mucosa - Nose Respiratory Panel (PCR) - Final 01/12/23 06:19 Nasal Secretion SARS-CoV-2 & FLU Antigen (Rapid) - Final ABG Data ABG results: ABG 01/12/23 11:04 Specimen Type ART Sample Site R Radial pH 7.37 Bicarbonate Actual 35.7 H Total CO2 38 Base Excess 10 H O2 Saturation 97 O2 % 35 ABG pCO2 61.9 H ABG pO2 92 Eliecer Test Positive O2 Delivery Device BiPAP Vent Mode BiLevel Clinical Comments 09/23, RR 12 Radiography Diagnostic Testing: Radiology Impression Venous Doppler Study 01/12/23 10:18 Interpretation Summary Deep veins of the bilateral lower extremities are patent and compressible segmentally. There is no evidence of bilateral lower extremity deep vein thrombosis. The bilateral great saphenous veins appear patent and compressible segmentally. Ordering Physician: Ashley Yi Referring Physician: MD Josiah Smith Performed By: Arline Wolfe, T Chest X-Ray 01/13/23 05:55 IMPRESSION: Mild cardiopulmonary congestion with bibasilar atelectasis versus infiltrate and left pleural effusion. Electronically Signed: Josiah Musa MD at 7:54 EDT , Physical Exam Narrative General: Easily awoken, answering questions HEENT: Atraumatic, normocephalic Eyes: Anicteric, extraocular movements grossly intact, right eye improving Neck: Supple Respiratory: No longer tachypneic, not coarse and no wheezing Cardiovascular: Regular rate and rhythm GI: Soft, nontender, nondistended Extremities: 1+ bilateral lower extremity pitting edema Musculoskeletal: Moving all extremities Neuro: No overt focal neurological deficits Skin: No rashes appreciated Psych: Cooperative Assessment & Plan Assessment/Plan (1) Acute exacerbation of CHF (congestive heart failure): (2) Acute hyperkalemia: (3) Chronic kidney disease: PLAN: Plan #Acute hypoxia and SOB on chronic respiratory failure on 4L home O2/COPD/hx chronic HFpEF -AECHF vs a COPD versus less likely PE -Chest x-ray with increased interstitial prominence suspicious for CHF and left pleural effusion with overlying atelectasis or infiltration -BNP 604, D-dimer 2.44, Pro-Marek 0.16 -Given her worsening peripheral edema as well as elevated BNP and chest x-ray findings high suspicion for fluid overload/AECHF, will start Lasix -Last echocardiogram 01/01/2023 with EF of 70% but unable to assess diastolic dysfunction. Echo 02/10/2022 commented on moderate to severe mitral annular calcification, RVSP of 44 and velocities suggestive of diastolic dysfunction -Did improve after receiving DuoNebs and methylprednisone, not wheezing and do not have high suspicion for AECOPD requiring steroids but given her history and response we will continue DuoNebs -Low suspicion for pneumonia, Pro-Marek very minimally elevated at 0.16, white blood cell count minimally elevated but could be reactive, afebrile. Cultures were obtained, if does not clinically improve or cx positive will begin antibiotics suspect this is related to volume overload -COVID and flu wnl, will check resp panel -Incentive spirometry -Oxygenation improved but given work of breathing while start on BiPAP -Repeat chest x-ray in a.m. -We will consider CTA that was not tachycardic, no longer hypoxic after breathing treatment and steroids and has had no chest pain, suspect elevated D-dimer is multifactorial. Given kidney function hesitant to give IV contrast and given mental status do not think she can tolerate VQ scan. Will obtain lower extremity venous duplex -01/13: Tachypnea improved today, on baseline oxygen and overall appears to be doing better. Chest x-ray still reveals congestion and effusion. Pro-Marek increased slightly inquiry if there could be an underlying pneumonia, will get Noncon CT of the chest to further evaluate the parenchyma. Cultures pending. With improvement will hold on abx pending cultures. If develops cough or worsening or fever will begin empiric abx. Receiving Lasix and exam seems less overloaded with decreased peripheral edema improving shortness of breath, will decrease Lasix dose however suspect may be somewhat intravascularly depleted #Hyperkalemia -Confirmed with repeat, repeat 6.3 -Possibly iatrogenic with oral potassium chloride in addition to ramipril and spironolactone that was on 20 of Lasix -EKG without peaked T waves -Received calcium gluconate, Kayexalate, glucose and insulin in ED -Monitor on telemetry and will repeat BMP in several hours -Hold home spironolactone and home potassium supplementation, hold ramipril -01/13: Potassium had improved, slightly up again this morning, will give another dose of Lasix and also give Kayexalate. Kidney function worsened which may contribute #Hypertensive urgency -Hydralazine x1 in the ED and given nitro paste -holding ramipril d/t hyperkalemia and labetalol d/t resp status -Change to coreg, PRNs added, reported allg to amlodipine, will monitor closely and continue to add medications and adjust as warranted #SKY on CKD stage IIIb -Currently appears to have SKY, likely multifactorial but will decrease Lasix dose and monitor. We will repeat BMP in the afternoon #Type 2 diabetes mellitus -Glucose checks and sliding scale insulin -Hold oral hypoglycemics #Right eye conjunctivitis -appears to have possible bacterial conjunctivitis with matting, will start topical #Encephalopathy, suspect metabolic -We will check ammonia given her history of hepatic encephalopathy that may be due to underlying infection versus CHF, less likely hypertension as her altered level of consciousness preceded her SBP greater than 200 -Also obtain ABG -01/13: Was certainly improved today, continue current management #hx Núñez cirrhosis with history of TIPS procedure -Check ammonia -Continue rifaximin -do not see lacutlose on home med list, will resume list -Giving lasix, holding spironolactone given her hyperkalemia -check liver profile #DVT ppx: SCDs Ashley Yi MD Time spent in the patient's overall evaluation,decision-making process, review of diagnostic data, adjustment of management, discussion with other providers, nursing nursing and ancillary staff involved in patient's care documentation, 30 minutes Charges/Coding Visit Charges Inpatient E&M: 71111 Subs Hosp L2
--- NOTE | 2023-01-13 09:00 | CT_ITS ---
STUDY: CT CHEST WITHOUT CONTRAST REASON FOR EXAM: Female, 72 years old. SOB w/ effusion, assess for underlying pneumonia -- and extent of effusion RADIATION DOSAGE (If Supplied By Facility): CTDIvol = ( 17.62 ) mGy, DLP = ( 550.26 ) mGycm TECHNIQUE: Transaxial imaging was performed without the administration of intravenous contrast material. Multiplanar coronal and sagittal images were reformatted. Individualized dose optimization techniques were used for this CT. COMPARISON: Comparison made with prior chest radiograph done earlier today. FINDINGS: CHEST Small left pleural effusion with compressive atelectasis at the left lung base. Tiny right pleural effusion with right basilar atelectasis. There is no demonstrated pleural abnormality. There are calcifications of the coronary arteries. Cardiomegaly. There are multiple small lymph nodes within the mediastinum, which are normal in size and morphology most compatible with reactive lymph hyperplasia. Normal hilar regions. Normal unenhanced pulmonary arteries. There is atherosclerotic calcification of the aortic arch with tortuosity and elongation of the aortic arch and descending thoracic aorta. There is demineralization of the thoracic spine. Increased kyphosis. 20% loss of height of the T10 vertebrae. A TIPS catheter is seen within the liver. CT/Chest without Contrast IMPRESSION: Bilateral pleural effusions left greater than right with compressive atelectasis at the left lung base and mild atelectasis at the right lung base. Cardiomegaly. Electronically Signed: Roberto Amor MD at 10:07 EDT ,
[2023-01-13] MEDS: Sodium Polystyrene Sulfonate 15 GM/60 ML UDC PO (10:45)
[2023-01-13 11:45] LABS: Bedside Glucose 192 mg/dL (74-106)
--- NOTE | 2023-01-13 14:26 | CASEMGMT ---
[facility] Readmission Note Previous Admission:? 12/31/22-01/05/23 Diagnosis:? hepatic encephalopathy DC Disposition: Home with?[facility] SN, PT and OT Current Admission? Current Diagnosis: hypoxia Pt presented to the ER with hypoxia. Currently pt is on 2L which is her baseline for home, verified orders with [facility]. Pt admitted last admission from [facility] and declined to return back. Pt receives services from [facility] and an APS referral was made on last admission. Pt was scheduled for her follow up appt with on day of admission, therefore missed. Pt reports her son sets up her meds in pill pods and she takes them from the pods. Pt reports taking them as ordered. Pt reports [facility] is going well and she would like to continue this upon dc. Pt has not had therapy yet but states I want to go home multiple times. Pt aware [facility] will follow her stay. Updated ARCENIO Davidson on [facility] services and previous APS referral. DC Plan: Home with [facility] pending therapy hans
[2023-01-13 14:51] LABS: Anion Gap 3 (5-15); BUN 50 mg/dL (7-18); BUN/Creat Ratio 19.6 RATIO (10-20); Calcium,Total 8.9 mg/dL (8.5-10.1); Chloride 106 mmol/L (98-107); Creatinine, Serum 2.55 mg/dL (0.55-1.02); EST Glomerular Filtration Rate 20 mL/min (>60); Est Glom Filt Rate - Afr Amer 24 mL/min (>60); Glucose 197 mg/dL (74-106); Potassium 5.1 mmol/L (3.5-5.1); Sodium Level 143 mmol/L (136-145)
[2023-01-13 18:40] LABS: Bedside Glucose 151 mg/dL (74-106)
[2023-01-13] MEDS: Atorvastatin Calcium 40 MG Tablet PO (20:27)
[2023-01-13 22:01] LABS: Bedside Glucose 219 mg/dL (74-106)
[2023-01-14] VITALS (12 sets, daily range): BP systolic 163–179; BP diastolic 52–59; PULSE 69–83; RESP 16–20; TEMP 36.6–37.2; O2SAT 94–100; BMI 31.6
[2023-01-14] MEDS: Ciprofloxacin 0.3% 2.5ml Bottle 2 DRP RIGHT EYE ×6 (02:45→21:45)
[2023-01-14] MEDS: Lactulose 20 GM/30 ML UDC PO ×6 (02:45→22:47)
[2023-01-14] MEDS: Insulin Lispro 100 UNIT/ML INSULN.PEN SC ×4 (06:39→21:46)
[2023-01-14] MEDS: Ipratropium/Albuterol Sulfate 3 ML AMPUL.NEB INHALATION ×3 (06:54→22:55)
[2023-01-14 07:01] LABS: Bedside Glucose 172 mg/dL (74-106)
[2023-01-14 07:04] LABS: Absolute Lymphocyte Count 1.09 X10^3/uL (0.83-4.51); Absolute Neutrophil Count 5.3 X10^3/uL (2.0-7.7); Basophil# 0.07 X10^3/uL; Basophil% 0.9 % (0-1); Eosinophil# 0.53 X10^3/uL; Hematocrit 27.1 % (37-47); Hemoglobin 7.9 g/dL (12.0-15.0); Lymphocyte # 1.09 X10^3/ul (0.83-4.51); Lymphocyte % 14.4 % (19-41); Mean Corp Hgb Conc 29.2 g/dL (32-36); Mean Corpuscular Hgb 28.1 pg (27.0-32.0); Mean Corpuscular Volume 96.4 fL (81-99); Mean Platelet Vol. 11.4 fl (6.2-12.0); Monocyte% 7.9 % (0-10); NRBC Flagged by Analyzer 0 % (0-5); Neutrophil # 5.25 X10^3/uL (2.7-7.7); Neutrophil % 69.7 % (47-70); Platelet Count 136 K/mm3 (150-450); RBC Distribution Width CV 17.3 % (11.6-14.6); RBC Distribution Width SD 61.9 fl (35.1-43.9); Red Blood Count 2.81 M/mm3 (4.2-5.4); White Blood Count 7.6 K/mm3 (4.4-11.0)
[2023-01-14 07:27] LABS: ALB/GLOB Ratio 0.6 RATIO (0.9-2.4); AST(SGOT) 44 U/L (15-37); Alanine Aminotransfer ALT/SGPT 30 U/L (13-56); Albumin, Serum 1.9 g/dL (3.2-5.0); Alkaline Phosphatase 95 U/L (45-117); Anion Gap 4 (5-15); BUN 47 mg/dL (7-18); Calcium,Total 9.1 mg/dL (8.5-10.1); Chloride 106 mmol/L (98-107); Creatinine, Serum 2.47 mg/dL (0.55-1.02); EST Glomerular Filtration Rate 20 mL/min (>60); Est Glom Filt Rate - Afr Amer 25 mL/min (>60); Estimated Creatinine Clearance 14.35 ml/min; Globulin 3.3 g/dL (2.2-4.2); Glucose 186 mg/dL (74-106); Potassium 4.3 mmol/L (3.5-5.1); Protein, Total 5.2 g/dL (6.4-8.2); Sodium Level 144 mmol/L (136-145)
[2023-01-14] MEDS: Carvedilol 12.5 MG Tablet PO (09:40)
[2023-01-14] MEDS: Furosemide 20 MG/2 ML VIAL IV (09:41)
[2023-01-14] MEDS: Pantoprazole Sodium 40 MG Tablet PO (09:41)
[2023-01-14] MEDS: rifAXIMin 550 MG Tablet PO ×2 (09:41→21:46)
[2023-01-14] MEDS: Iron Polysaccharide Complex 150 MG CAPSULE PO (09:41)
[2023-01-14] MEDS: 0.9% Saline Lock 10 ML Syringe IV (09:42)
--- NOTE | 2023-01-14 09:47 | PN.HOSP_ITS ---
Reason for Visit Reason for Visit: Diagnoses Hyperkalemia (01/12/23) Heart failure, unspecified (01/12/23) Chronic kidney disease, unspecified (01/12/23) Subjective Subjective Laying in bed, main complaint is of back pain Objective Data Objective Data Vital Signs: Vital Signs Temp Pulse Resp BP Pulse Ox O2 Del Method O2 Flow Rate 98.0 F 77 16 179/52 H 100 Nasal Cannula 3 01/14/23 09:33 01/14/23 09:33 01/14/23 09:33 01/14/23 09:33 01/14/23 09:33 01/14/23 09:33 01/14/23 09:33 FiO2 28 01/12/23 22:28 Oxygen Flow Rate (L/min) 3 Oxygen Delivery Method Nasal Cannula Weight: 73 kg Body Mass Index (BMI) 31.6 Intake & Output: Intake and Output for Last 24 Hours 01/12/23 01/13/23 01/14/23 23:59 23:59 23:59 Intake Total 250 / 490 360 / 360 Output Total 400 / 900 800 / 800 Balance -150 / -410 -440 / -440 Lab / Micro Data Result Diagrams: 01/14/23 06:40 01/14/23 06:40 Labs: Laboratory Results - last 24 hr 01/13/23 11:01: POC Glucose 192 H 01/13/23 14:20: Sodium 143, Potassium 5.1, Chloride 106, Carbon Dioxide 34.0 H, Anion Gap 3 L, BUN 50 H, Creatinine 2.55 H, Estim Creat Clear Calc 13.90, Est GFR (MDRD) Af Amer 24 L, Est GFR (MDRD) Non-Af 20 L, BUN/Creatinine Ratio 19.6, Glucose 197 H, Calcium 8.9 01/13/23 17:25: POC Glucose 151 H 01/13/23 20:30: POC Glucose 219 H 01/14/23 06:38: POC Glucose 172 H 01/14/23 06:40: WBC 7.6, RBC 2.81 L, Hgb 7.9 L, Hct 27.1 L, MCV 96.4, MCH 28.1, MCHC 29.2 L, RDW Std Deviation 61.9 H, RDW Coeff of [place] 17.3 H, Plt Count 136 L, MPV 11.4, Immature Gran % (Auto) 0.100, Neut % (Auto) 69.7, Lymph % (Auto) 14.4 L, [place] % (Auto) 7.9, Eos % (Auto) 7.0 H, Baso % (Auto) 0.9, Absolute Neuts (auto) 5.3, Absolute Lymphs (auto) 1.09, Nucleated RBC % 0 01/14/23 06:40: Sodium 144, Potassium 4.3, Chloride 106, Carbon Dioxide 34.0 H, Anion Gap 4 L, BUN 47 H, Creatinine 2.47 H, Estim Creat Clear Calc 14.35, Est GFR (MDRD) Af Amer 25 L, Est GFR (MDRD) Non-Af 20 L, BUN/Creatinine Ratio 19.0, Glucose 186 H, Calcium 9.1, Total Bilirubin 0.40, AST 44 H, ALT 30, Alkaline Phosphatase 95, Total Protein 5.2 L, Albumin 1.9 L, Globulin 3.3, Albumin/Globulin Ratio 0.6 L Micro: Microbiology 01/12/23 07:25 Blood Culture (Wb) - Arm Left Blood Culture - Preliminary No growth in 48 hours. 01/12/23 07:20 Blood Culture (Wb) - Anticubital Left Blood Culture - Preliminary No growth in 48 hours. 01/12/23 10:50 Mucosa - Nose Respiratory Panel (PCR) - Final 01/12/23 06:19 Nasal Secretion SARS-CoV-2 & FLU Antigen (Rapid) - Final Radiography Diagnostic Testing: Radiology Impression Chest CT 01/13/23 09:00 IMPRESSION: Bilateral pleural effusions left greater than right with compressive atelectasis at the left lung base and mild atelectasis at the right lung base. Cardiomegaly. Electronically Signed: Roberto Amor MD at 10:07 EDT , Physical Exam Narrative General: Easily awoken, answering questions HEENT: Atraumatic, normocephalic Eyes: Anicteric, extraocular movements grossly intact, right eye improving though still some slight swelling, no erythema or drainage Neck: Supple Respiratory: No longer tachypneic, not coarse and no wheezing Cardiovascular: Regular rate and rhythm GI: Soft, nontender, nondistended Extremities: 1+ bilateral lower extremity pitting edema Musculoskeletal: Moving all extremities Neuro: No overt focal neurological deficits Skin: No rashes appreciated Psych: Cooperative Assessment & Plan Assessment/Plan (1) Acute exacerbation of CHF (congestive heart failure): (2) Acute hyperkalemia: (3) Chronic kidney disease: PLAN: Plan #Acute hypoxia and SOB on chronic respiratory failure on 4L home O2/COPD/acute on chronic HFpEF -AECHF vs a COPD versus less likely PE -Chest x-ray with increased interstitial prominence suspicious for CHF and left pleural effusion with overlying atelectasis or infiltration -BNP 604, D-dimer 2.44, Pro-Marek 0.16 -Given her worsening peripheral edema as well as elevated BNP and chest x-ray findings high suspicion for fluid overload/AECHF, will start Lasix -Last echocardiogram 01/01/2023 with EF of 70% but unable to assess diastolic dysfunction. Echo 02/10/2022 commented on moderate to severe mitral annular calcification, RVSP of 44 and velocities suggestive of diastolic dysfunction -Did improve after receiving DuoNebs and methylprednisone, not wheezing and do not have high suspicion for AECOPD requiring steroids but given her history and response we will continue DuoNebs -Low suspicion for pneumonia, Pro-Marek very minimally elevated at 0.16, white blo od cell count minimally elevated but could be reactive, afebrile. Cultures were obtained, if does not clinically improve or cx positive will begin antibiotics suspect this is related to volume overload -COVID and flu wnl, will check resp panel -Incentive spirometry -Oxygenation improved but given work of breathing while start on BiPAP -Repeat chest x-ray in a.m. -We will consider CTA that was not tachycardic, no longer hypoxic after breathing treatment and steroids and has had no chest pain, suspect elevated D- dimer is multifactorial. Given kidney function hesitant to give IV contrast and given mental status do not think she can tolerate VQ scan. Will obtain lower extremity venous duplex -01/13: Tachypnea improved today, on baseline oxygen and overall appears to be doing better. Chest x-ray still reveals congestion and effusion. Pro-Marek increased slightly inquiry if there could be an underlying pneumonia, will get Noncon CT of the chest to further evaluate the parenchyma. Cultures pending. With improvement will hold on abx pending cultures. If develops cough or worsening or fever will begin empiric abx. Receiving Lasix and exam seems less overloaded with decreased peripheral edema improving shortness of breath, will decrease Lasix dose however suspect may be somewhat intravascularly depleted -01/14: Breathing significantly improved, change Lasix to p.o. and breathing treatments to every 6 hours while awake. Cultures no growth to date. Improved with Lasix and nebs, suspect that this was fluid overload and heart failure #Hyperkalemia -Confirmed with repeat, repeat 6.3 -Possibly iatrogenic with oral potassium chloride in addition to ramipril and spironolactone that was on 20 of Lasix -EKG without peaked T waves -Received calcium gluconate, Kayexalate, glucose and insulin in ED -Monitor on telemetry and will repeat BMP in several hours -Hold home spironolactone and home potassium supplementation, hold ramipril -01/13: Potassium had improved, slightly up again this morning, will give another dose of Lasix and also give Kayexalate. Kidney function worsened which may contribute -01/14: Improved today, continue to hold spironolactone and JOSE #Hypertensive urgency -Hydralazine x1 in the ED and given nitro paste -holding ramipril d/t hyperkalemia and labetalol d/t resp status -Change to coreg, PRNs added, reported allg to amlodipine, will monitor closely and continue to add medications and adjust as warranted -01/14: Increase Coreg, given hyperkalemia over the past several days hesitant to resume JOSE #SKY on CKD stage IIIb -Currently appears to have SKY, likely multifactorial but will decrease Lasix dose and monitor. We will repeat BMP in the afternoon -01/14: Improving #Type 2 diabetes mellitus -Glucose checks and sliding scale insulin -Hold oral hypoglycemics #Right eye conjunctivitis -appears to have possible bacterial conjunctivitis with matting, will start topical #Encephalopathy, suspect metabolic -We will check ammonia given her history of hepatic encephalopathy that may be due to underlying infection versus CHF, less likely hypertension as her altered level of consciousness preceded her SBP greater than 200 -Also obtain ABG -01/13: Was certainly improved today, continue current management -01/14: Continue lactulose, assess ammonia #hx Núñez cirrhosis with history of TIPS procedure -Check ammonia -Continue rifaximin -do not see lacutlose on home med list, will resume list -Giving lasix, holding spironolactone given her hyperkalemia -check liver profile -01/14: Continue to monitor. Giving lactulose and Lasix holding spironolactone still #DVT ppx: SCDs, heparin sub q Ashley Yi MD Time spent in the patient's overall evaluation,decision-making process, review of diagnostic data, adjustment of management, discussion with other providers, nursing nursing and ancillary staff involved in patient's care documentation, 30 minutes Charges/Coding Visit Charges Inpatient E&M: 17125 Subs Hosp L2
[2023-01-14] MEDS: Furosemide 40 MG Tablet PO (11:51)
[2023-01-14 12:25] LABS: Bedside Glucose 289 mg/dL (74-106)
[2023-01-14] MEDS: Heparin Injection (Vial) 5,000 UNIT/ML VIAL 5000 UNIT SC ×2 (13:23→21:46)
[2023-01-14] MEDS: Arthritis Pain Compound 60 CLICK TUBE TOPICAL ×2 (13:23→21:45)
[2023-01-14] MEDS: Acetaminophen 325 MG Tablet PO (16:25)
[2023-01-14 17:00] LABS: Bedside Glucose 195 mg/dL (74-106)
[2023-01-14] MEDS: Atorvastatin Calcium 40 MG Tablet PO (21:46)
[2023-01-14] MEDS: Carvedilol 25 MG Tablet PO (21:46)
[2023-01-14 22:30] LABS: Bedside Glucose 192 mg/dL (74-106)
[2023-01-15] VITALS (9 sets, daily range): BP systolic 150–180; BP diastolic 42–56; PULSE 57–77; RESP 16–18; TEMP 36.2–36.9; O2SAT 95–100; BMI 31.6
[2023-01-15] MEDS: Ciprofloxacin 0.3% 2.5ml Bottle 2 DRP RIGHT EYE ×5 (02:06→23:36)
[2023-01-15] MEDS: Lactulose 20 GM/30 ML UDC PO ×7 (02:06→23:37)
--- NOTE | 2023-01-15 02:36 | CPS ---
pt refuses bipap
[2023-01-15] MEDS: Heparin Injection (Vial) 5,000 UNIT/ML VIAL 5000 UNIT SC ×3 (06:02→23:37)
[2023-01-15 06:18] LABS: Absolute Lymphocyte Count 0.98 X10^3/uL (0.83-4.51); Absolute Neutrophil Count 3.7 X10^3/uL (2.0-7.7); Basophil# 0.06 X10^3/uL; Eosinophil# 0.67 X10^3/uL; Eosinophils% 11.1 % (0-5); Hematocrit 27.3 % (37-47); Hemoglobin 7.8 g/dL (12.0-15.0); Lymphocyte # 0.98 X10^3/ul (0.83-4.51); Lymphocyte % 16.3 % (19-41); Mean Corp Hgb Conc 28.6 g/dL (32-36); Mean Corpuscular Hgb 27.3 pg (27.0-32.0); Mean Corpuscular Volume 95.5 fL (81-99); Mean Platelet Vol. 11.1 fl (6.2-12.0); Monocyte# 0.57 X10^3/uL; Monocyte% 9.5 % (0-10); NRBC Flagged by Analyzer 0 % (0-5); Neutrophil # 3.74 X10^3/uL (2.7-7.7); Neutrophil % 61.9 % (47-70); Platelet Count 129 K/mm3 (150-450); RBC Distribution Width CV 16.6 % (11.6-14.6); RBC Distribution Width SD 58.4 fl (35.1-43.9); Red Blood Count 2.86 M/mm3 (4.2-5.4)
[2023-01-15] MEDS: Insulin Lispro 100 UNIT/ML INSULN.PEN SC ×4 (06:27→23:46)
[2023-01-15 06:50] LABS: Bedside Glucose 175 mg/dL (74-106)
[2023-01-15 07:03] LABS: ALB/GLOB Ratio 0.5 RATIO (0.9-2.4); AST(SGOT) 50 U/L (15-37); Alanine Aminotransfer ALT/SGPT 35 U/L (13-56); Albumin, Serum 1.8 g/dL (3.2-5.0); Alkaline Phosphatase 104 U/L (45-117); Anion Gap 4 (5-15); BUN 46 mg/dL (7-18); BUN/Creat Ratio 18.8 RATIO (10-20); Calcium,Total 8.7 mg/dL (8.5-10.1); Chloride 107 mmol/L (98-107); Creatinine, Serum 2.45 mg/dL (0.55-1.02); EST Glomerular Filtration Rate 20 mL/min (>60); Est Glom Filt Rate - Afr Amer 25 mL/min (>60); Estimated Creatinine Clearance 14.47 ml/min; Globulin 3.4 g/dL (2.2-4.2); Glucose 203 mg/dL (74-106); Potassium 4.5 mmol/L (3.5-5.1); Protein, Total 5.2 g/dL (6.4-8.2); Sodium Level 144 mmol/L (136-145)
[2023-01-15] MEDS: Ipratropium/Albuterol Sulfate 3 ML AMPUL.NEB INHALATION ×2 (07:03→18:59)
--- NOTE | 2023-01-15 09:26 | PN.HOSP_ITS ---
Reason for Visit Reason for Visit: Diagnoses Hyperkalemia (01/12/23) Heart failure, unspecified (01/12/23) Chronic kidney disease, unspecified (01/12/23) Subjective Subjective Sleeping comfortably at time of exam, minimally willing to wake up Objective Data Objective Data Vital Signs: Vital Signs Temp Pulse Resp BP Pulse Ox O2 Del Method O2 Flow Rate 98.5 F 71 16 150/44 H 96 Nasal Cannula 3 01/15/23 03:13 01/15/23 07:03 01/15/23 07:03 01/15/23 03:13 01/15/23 07:03 01/15/23 07:03 01/15/23 07:03 FiO2 28 01/12/23 22:28 Oxygen Flow Rate (L/min) 3 Oxygen Delivery Method Nasal Cannula Weight: 73.2 kg Body Mass Index (BMI) 31.6 Intake & Output: Intake and Output for Last 24 Hours 01/13/23 01/14/23 01/15/23 23:59 23:59 23:59 Intake Total 360 / 360 780 / 780 Output Total 800 / 800 Balance -440 / -440 780 / 780 Lab / Micro Data Result Diagrams: 01/15/23 06:05 01/15/23 06:05 Labs: Laboratory Results - last 24 hr 01/14/23 11:52: POC Glucose 289 H 01/14/23 16:27: POC Glucose 195 H 01/14/23 17:20: Ammonia 203.0 H 01/14/23 21:42: POC Glucose 192 H 01/15/23 06:05: WBC 6.0, RBC 2.86 L, Hgb 7.8 L, Hct 27.3 L, MCV 95.5, MCH 27.3, MCHC 28.6 L, RDW Std Deviation 58.4 H, RDW Coeff of [place]ord[place] 16.6 H, Plt Count 129 L, MPV 11.1, Immature Gran % (Auto) 0.200, Neut % (Auto) 61.9, Lymph % (Auto) 16.3 L, [place] % (Auto) 9.5, Eos % (Auto) 11.1 H, Baso % (Auto) 1.0, Absolute Neuts (auto) 3.7, Absolute Lymphs (auto) 0.98, Nucleated RBC % 0 01/15/23 06:05: Sodium 144, Potassium 4.5, Chloride 107, Carbon Dioxide 33.0 H, Anion Gap 4 L, BUN 46 H, Creatinine 2.45 H, Estim Creat Clear Calc 14.47, Est GFR (MDRD) Af Amer 25 L, Est GFR (MDRD) Non-Af 20 L, BUN/Creatinine Ratio 18.8, Glucose 203 H, Calcium 8.7, Total Bilirubin 0.40, AST 50 H, ALT 35, Alkaline Phosphatase 104, Total Protein 5.2 L, Albumin 1.8 L, Globulin 3.4, Albumin/Globulin Ratio 0.5 L 01/15/23 06:05: Ammonia 128.0 H 01/15/23 06:26: POC Glucose 175 H Micro: Microbiology 01/12/23 07:25 Blood Culture (Wb) - Arm Left Blood Culture - Preliminary No growth in 48 hours. 01/12/23 07:20 Blood Culture (Wb) - Anticubital Left Blood Culture - Preliminary No growth in 48 hours. 01/12/23 10:50 Mucosa - Nose Respiratory Panel (PCR) - Final 01/12/23 06:19 Nasal Secretion SARS-CoV-2 & FLU Antigen (Rapid) - Final Physical Exam Narrative General: Very tired this a.m. HEENT: Atraumatic, normocephalic Eyes: Would not open eyes to participate in exam Neck: Supple Respiratory: No longer tachypneic, not coarse and no wheezing Cardiovascular: Regular rate and rhythm GI: Soft, nontender, nondistended Extremities: 1+ bilateral lower extremity pitting edema Musculoskeletal: Moving all extremities Neuro: No overt focal neurological deficits but did not participate in neuro exam Skin: No rashes appreciated Psych: Less cooperative this morning Assessment & Plan Assessment/Plan (1) Acute exacerbation of CHF (congestive heart failure): (2) Acute hyperkalemia: (3) Chronic kidney disease: PLAN: Plan #Encephalopathy, suspect metabolic -We will check ammonia given her history of hepatic encephalopathy that may be due to underlying infection versus CHF, less likely hypertension as her altered level of consciousness preceded her SBP greater than 200 -Also obtain ABG -01/13: Was certainly improved today, continue current management -01/14: Continue lactulose, assess ammonia 01/15: Has been somewhat increasingly more tired yesterday, ammonia was elevated more so than previously on lactulose frequency increased, down slightly today #Acute hypoxia and SOB on chronic respiratory failure on 4L home O2/COPD/acute on chronic HFpEF -AECHF vs a COPD versus less likely PE -Chest x-ray with increased interstitial prominence suspicious for CHF and left pleural effusion with overlying atelectasis or infiltration -BNP 604, D-dimer 2.44, Pro-Marek 0.16 -Given her worsening peripheral edema as well as elevated BNP and chest x-ray findings high suspicion for fluid overload/AECHF, will start Lasix -Last echocardiogram 01/01/2023 with EF of 70% but unable to assess diastolic dy sfunction. Echo 02/10/2022 commented on moderate to severe mitral annular calcification, RVSP of 44 and velocities suggestive of diastolic dysfunction -Did improve after receiving DuoNebs and methylprednisone, not wheezing and do not have high suspicion for AECOPD requiring steroids but given her history and response we will continue DuoNebs -Low suspicion for pneumonia, Pro-Marek very minimally elevated at 0.16, white blood cell count minimally elevated but could be reactive, afebrile. Cultures were obtained, if does not clinically improve or cx positive will begin antibiotics suspect this is related to volume overload -COVID and flu wnl, will check resp panel -Incentive spirometry -Oxygenation improved but given work of breathing while start on BiPAP -Repeat chest x-ray in a.m. -We will consider CTA that was not tachycardic, no longer hypoxic after breathing treatment and steroids and has had no chest pain, suspect elevated D- dimer is multifactorial. Given kidney function hesitant to give IV contrast and given mental status do not think she can tolerate VQ scan. Will obtain lower extremity venous duplex -01/13: Tachypnea improved today, on baseline oxygen and overall appears to be doing better. Chest x-ray still reveals congestion and effusion. Pro-Marek increased slightly inquiry if there could be an underlying pneumonia, will get Noncon CT of the chest to further evaluate the parenchyma. Cultures pending. With improvement will hold on abx pending cultures. If develops cough or worsening or fever will begin empiric abx. Receiving Lasix and exam seems less overloaded with decreased peripheral edema improving shortness of breath, will decrease Lasix dose however suspect may be somewhat intravascularly depleted -01/14: Breathing significantly improved, change Lasix to p.o. and breathing treatments to every 6 hours while awake. Cultures no growth to date. Improved with Lasix and nebs, suspect that this was fluid overload and heart failure -01/15: Significantly improved #Hyperkalemia -Confirmed with repeat, repeat 6.3 -Possibly iatrogenic with oral potassium chloride in addition to ramipril and spironolactone that was on 20 of Lasix -EKG without peaked T waves -Received calcium gluconate, Kayexalate, glucose and insulin in ED -Monitor on telemetry and will repeat BMP in several hours -Hold home spironolactone and home potassium supplementation, hold ramipril -01/13: Potassium had improved, slightly up again this morning, will give another dose of Lasix and also give Kayexalate. Kidney function worsened which may contribute -01/14: Improved today, continue to hold spironolactone and JOSE #Hypertensive urgency -Hydralazine x1 in the ED and given nitro paste -holding ramipril d/t hyperkalemia and labetalol d/t resp status -Change to coreg, PRNs added, reported allg to amlodipine, will monitor closely and continue to add medications and adjust as warranted -01/14: Increase Coreg, given hyperkalemia over the past several days hesitant to resume JOSE #SKY on CKD stage IIIb -Currently appears to have SKY, likely multifactorial but will decrease Lasix d ose and monitor. We will repeat BMP in the afternoon -01/14: Improving #Type 2 diabetes mellitus -Glucose checks and sliding scale insulin -Hold oral hypoglycemics #Right eye conjunctivitis -appears to have possible bacterial conjunctivitis with matting, will start topical #hx Núñez cirrhosis with history of TIPS procedure -Check ammonia -Continue rifaximin -do not see lacutlose on home med list, will resume list -Giving lasix, holding spironolactone given her hyperkalemia -check liver profile -01/14: Continue to monitor. Giving lactulose and Lasix holding spironolactone still #DVT ppx: SCDs, heparin sub q Ashley Yi MD Time spent in the patient's overall evaluation,decision-making process, review of diagnostic data, adjustment of management, discussion with other providers, nursing nursing and ancillary staff involved in patient's care documentation, 30 minutes Charges/Coding Visit Charges Inpatient E&M: 38561 Subs Hosp L2
[2023-01-15] MEDS: rifAXIMin 550 MG Tablet PO ×2 (09:47→23:37)
[2023-01-15] MEDS: Furosemide 40 MG Tablet PO (09:48)
[2023-01-15] MEDS: Iron Polysaccharide Complex 150 MG CAPSULE PO (09:48)
[2023-01-15] MEDS: Pantoprazole Sodium 40 MG Tablet PO (09:48)
[2023-01-15] MEDS: Carvedilol 25 MG Tablet PO ×2 (09:48→23:37)
[2023-01-15 11:55] LABS: Bedside Glucose 222 mg/dL (74-106)
[2023-01-15 16:40] LABS: Bedside Glucose 197 mg/dL (74-106)
--- NOTE | 2023-01-15 17:48 | NURSING ---
All documentation and medication administration by Sandee Blake, student nurse completed under the supervision of this RN.
[2023-01-15 18:10] LABS: Allen Test Positive; Base Excess 11 mmol/L (-2 to +2); Bicarbonate 35.9 mmol/L (22-26); Blood Gas Specimen Type ART; O2 Delivery Device Cannula; PO2 71 mmHG (75-100); SITE L Radial; SO2 93 % (95-99); Total Carbon Dioxide 38 mmol/L; pCO2 60.2 mmHg (35-45); pH 7.38 (7.35-7.45)
[2023-01-15] MEDS: Arthritis Pain Compound 60 CLICK TUBE TOPICAL (23:36)
[2023-01-15] MEDS: Atorvastatin Calcium 40 MG Tablet PO (23:37)
[2023-01-16] VITALS (16 sets, daily range): BP systolic 162–179; BP diastolic 40–64; PULSE 69–86; RESP 12–20; TEMP 36.3–36.7; O2SAT 92–100; BMI 32.2
[2023-01-16] MEDS: 0.9% Saline Lock 10 ML Syringe IV ×2 (01:00→19:37)
[2023-01-16] MEDS: Ondansetron 4 MG/2 ML Vial IV ×2 (01:00→19:37)
[2023-01-16 01:31] LABS: Bedside Glucose 225 mg/dL (74-106)
[2023-01-16] MEDS: Ciprofloxacin 0.3% 2.5ml Bottle 2 DRP RIGHT EYE ×6 (03:43→21:37)
[2023-01-16] MEDS: Lactulose 20 GM/30 ML UDC PO ×7 (03:44→21:37)
[2023-01-16 06:07] LABS: Absolute Lymphocyte Count 0.92 X10^3/uL (0.83-4.51); Absolute Neutrophil Count 3.5 X10^3/uL (2.0-7.7); Basophil# 0.08 X10^3/uL; Basophil% 1.4 % (0-1); Eosinophil# 0.67 X10^3/uL; Eosinophils% 11.9 % (0-5); Hematocrit 27.3 % (37-47); Lymphocyte # 0.92 X10^3/ul (0.83-4.51); Lymphocyte % 16.3 % (19-41); Mean Corp Hgb Conc 29.3 g/dL (32-36); Mean Corpuscular Hgb 27.9 pg (27.0-32.0); Mean Corpuscular Volume 95.1 fL (81-99); Mean Platelet Vol. 10.9 fl (6.2-12.0); Monocyte% 8.8 % (0-10); NRBC Flagged by Analyzer 0 % (0-5); Neutrophil # 3.46 X10^3/uL (2.7-7.7); Neutrophil % 61.2 % (47-70); Platelet Count 110 K/mm3 (150-450); RBC Distribution Width CV 16.6 % (11.6-14.6); RBC Distribution Width SD 57.8 fl (35.1-43.9); Red Blood Count 2.87 M/mm3 (4.2-5.4); White Blood Count 5.7 K/mm3 (4.4-11.0)
[2023-01-16] MEDS: Heparin Injection (Vial) 5,000 UNIT/ML VIAL 5000 UNIT SC ×3 (06:23→21:37)
[2023-01-16] MEDS: Insulin Lispro 100 UNIT/ML INSULN.PEN SC ×4 (06:27→21:33)
[2023-01-16 06:59] LABS: ALB/GLOB Ratio 0.5 RATIO (0.9-2.4); AST(SGOT) 49 U/L (15-37); Alanine Aminotransfer ALT/SGPT 34 U/L (13-56); Albumin, Serum 1.9 g/dL (3.2-5.0); Alkaline Phosphatase 105 U/L (45-117); Anion Gap 2 (5-15); BUN 42 mg/dL (7-18); BUN/Creat Ratio 17.6 RATIO (10-20); Calcium,Total 8.8 mg/dL (8.5-10.1); Chloride 108 mmol/L (98-107); Creatinine, Serum 2.39 mg/dL (0.55-1.02); EST Glomerular Filtration Rate 21 mL/min (>60); Est Glom Filt Rate - Afr Amer 25 mL/min (>60); Estimated Creatinine Clearance 14.83 ml/min; Globulin 3.6 g/dL (2.2-4.2); Glucose 200 mg/dL (74-106); Potassium 4.4 mmol/L (3.5-5.1); Protein, Total 5.5 g/dL (6.4-8.2); Sodium Level 144 mmol/L (136-145)
[2023-01-16] MEDS: Ipratropium/Albuterol Sulfate 3 ML AMPUL.NEB INHALATION ×3 (06:59→19:49)
[2023-01-16 07:05] LABS: Bedside Glucose 173 mg/dL (74-106)
--- NOTE | 2023-01-16 09:01 | PN.HOSP_ITS ---
Reason for Visit Reason for Visit: Diagnoses Hyperkalemia (01/12/23) Heart failure, unspecified (01/12/23) Chronic kidney disease, unspecified (01/12/23) Subjective Subjective Tired this a.m., reported to still be taking her lactulose and had 4 bowel movements Objective Data Objective Data Vital Signs: Vital Signs Temp Pulse Resp BP Pulse Ox O2 Del Method O2 Flow Rate 97.3 F L 78 20 H 167/40 H 96 Nasal Cannula 2 01/16/23 06:24 01/16/23 06:59 01/16/23 06:59 01/16/23 06:24 01/16/23 08:33 01/16/23 08:33 01/16/23 08:33 FiO2 28 01/12/23 22:28 Oxygen Flow Rate (L/min) 2 Oxygen Delivery Method Nasal Cannula Weight: 74.8 kg Body Mass Index (BMI) 32.2 Intake & Output: Intake and Output for Last 24 Hours 01/14/23 01/15/23 01/16/23 23:59 23:59 23:59 Intake Total 780 / 780 830 / 830 Output Total 300 / 300 Balance 780 / 780 530 / 530 Lab / Micro Data Result Diagrams: 01/16/23 05:50 01/16/23 05:50 Labs: Laboratory Results - last 24 hr 01/15/23 11:23: POC Glucose 222 H 01/15/23 16:21: POC Glucose 197 H 01/15/23 23:45: POC Glucose 225 H 01/16/23 05:50: WBC 5.7, RBC 2.87 L, Hgb 8.0 L, Hct 27.3 L, MCV 95.1, MCH 27.9, MCHC 29.3 L, RDW Std Deviation 57.8 H, RDW Coeff of [place] 16.6 H, Plt Count 110 L, MPV 10.9, Immature Gran % (Auto) 0.400, Neut % (Auto) 61.2, Lymph % (Auto) 16.3 L, [place] % (Auto) 8.8, Eos % (Auto) 11.9 H, Baso % (Auto) 1.4 H, Absolute Neuts (auto) 3.5, Absolute Lymphs (auto) 0.92, Nucleated RBC % 0 01/16/23 05:50: Sodium 144, Potassium 4.4, Chloride 108 H, Carbon Dioxide 34.0 H , Anion Gap 2 L, BUN 42 H, Creatinine 2.39 H, Estim Creat Clear Calc 14.83, Est GFR (MDRD) Af Amer 25 L, Est GFR (MDRD) Non-Af 21 L, BUN/Creatinine Ratio 17.6, Glucose 200 H, Calcium 8.8, Total Bilirubin 0.40, AST 49 H, ALT 34, Alkaline Phosphatase 105, Total Protein 5.5 L, Albumin 1.9 L, Globulin 3.6, Albumin/Globulin Ratio 0.5 L 01/16/23 05:50: Ammonia 146.0 H 01/16/23 06:26: POC Glucose 173 H Micro: Microbiology 01/12/23 07:25 Blood Culture (Wb) - Arm Left Blood Culture - Preliminary No growth in 48 hours. 01/12/23 07:20 Blood Culture (Wb) - Anticubital Left Blood Culture - Preliminary No growth in 48 hours. 01/12/23 10:50 Mucosa - Nose Respiratory Panel (PCR) - Final 01/12/23 06:19 Nasal Secretion SARS-CoV-2 & FLU Antigen (Rapid) - Final ABG Data ABG results: ABG 01/15/23 18:06 Specimen Type ART Sample Site L Radial pH 7.38 Bicarbonate Actual 35.9 H Total CO2 38 Base Excess 11 H O2 Saturation 93 L ABG pCO2 60.2 H ABG pO2 71 L Eliecer Test Positive O2 Delivery Device Cannula Liter Flow 3.0 Physical Exam Narrative General: Very tired this a.m. HEENT: Atraumatic, normocephalic Eyes: Would not open eyes to participate in exam Neck: Supple Respiratory: No longer tachypneic, not coarse and no wheezing Cardiovascular: Regular rate and rhythm GI: Soft, nontender, nondistended Extremities: 1+ bilateral lower extremity pitting edema Musculoskeletal: Moving all extremities Neuro: No overt focal neurological deficits but did not participate in neuro exam Skin: No rashes appreciated Psych: Less cooperative this morning Assessment & Plan Assessment/Plan (1) Acute exacerbation of CHF (congestive heart failure): (2) Acute hyperkalemia: (3) Chronic kidney disease: PLAN: Plan #Encephalopathy, suspect metabolic -We will check ammonia given her history of hepatic encephalopathy that may be due to underlying infection versus CHF, less likely hypertension as her altered level of consciousness preceded her SBP greater than 200 -Also obtain ABG -01/13: Was certainly improved today, continue current management -01/14: Continue lactulose, assess ammonia 01/15: Has been somewhat increasingly more tired yesterday, ammonia was elevated more so than previously on lactulose frequency increased, down slightly today -01/16: Patient reported to be taking the lactulose every 4 and had 4 bowel movements but ammonia back up again. Suspect current encephalopathy is multifactorial with her ammonia but also she has not worn BiPAP for the past 2 nights for various reasons. Discussed with patient's RN, at time of my evaluation she is very sleepy but was not complaining of nausea or vomiting. Will give her another dose of Zofran and place BiPAP as long as she is not having increased nausea and vomiting. Suspect she will not improve until CO2 improves as well as ammonia. We will consult GI given worsening despite lactulose being escalated and her having bowel movements. Continue rifaximin. May need to place NG tube to increase lactulose frequency if patient does not begin to improve #Acute hypoxia and SOB on chronic respiratory failure on 4L home O2/COPD/acute on chronic HFpEF -AECHF vs a COPD versus less likely PE -Chest x-ray with increased interstitial prominence suspicious for CHF and left pleural effusion with overlying atelectasis or infiltration -BNP 604, D-dimer 2.44, Pro-Marek 0.16 -Given her worsening peripheral edema as well as elevated BNP and chest x-ray findings high suspicion for fluid overload/AECHF, will start Lasix -Last echocardiogram 01/01/2023 with EF of 70% but unable to assess diastolic dysfunction. Echo 02/10/2022 commented on moderate to severe mitral annular calcification, RVSP of 44 and velocities suggestive of diastolic dysfunction -Did improve after receiving DuoNebs and methylprednisone, not wheezing and do not have high suspicion for AECOPD requiring steroids but given her history and response we will continue DuoNebs -Low suspicion for pneumonia, Pro-Marek very minimally elevated at 0.16, white blood cell count minimally elevated but could be reactive, afebrile. Cultures were obtained, if does not clinically improve or cx positive will begin antibiotics suspect this is related to volume overload -COVID and flu wnl, will check resp panel -Incentive spirometry -Oxygenation improved but given work of breathing while start on BiPAP -Repeat chest x-ray in a.m. -We will consider CTA that was not tachycardic, no longer hypoxic after breathing treatment and steroids and has had no chest pain, suspect elevated D-dimer is multifactorial. Given kidney function hesitant to give IV contrast and given mental status do not think she can tolerate VQ scan. Will obtain lower extremity venous duplex -01/13: Tachypnea improved today, on baseline oxygen and overall appears to be doing better. Chest x-ray still reveals congestion and effusion. Pro-Marek increased slightly inquiry if there could be an underlying pneumonia, will get Noncon CT of the chest to further evaluate the parenchyma. Cultures pending. With improvement will hold on abx pending cultures. If develops cough or worsening or fever will begin empiric abx. Receiving Lasix and exam seems less overloaded with decreased peripheral edema improving shortness of breath, will decrease Lasix dose however suspect may be somewhat intravascularly depleted -01/14: Breathing significantly improved, change Lasix to p.o. and breathing treatments to every 6 hours while awake. Cultures no growth to date. Improved with Lasix and nebs, suspect that this was fluid overload and heart failure -01/15: Significantly improved -01/16: Oxygenation improved but she has not been wearing BiPAP and suspect she is continuing to have increased CO2 retention. We will have BiPAP placed FREDDY. #Hyperkalemia -Confirmed with repeat, repeat 6.3 -Possibly iatrogenic with oral potassium chloride in addition to ramipril and spironolactone that was on 20 of Lasix -EKG without peaked T waves -Received calcium gluconate, Kayexalate, glucose and insulin in ED -Monitor on telemetry and will repeat BMP in several hours -Hold home spironolactone and home potassium supplementation, hold ramipril -01/13: Potassium had improved, slightly up again this morning, will give another dose of Lasix and also give Kayexalate. Kidney function worsened which may contribute -01/14: Improved today, continue to hold spironolactone and JOSE #Hypertensive urgency -Hydralazine x1 in the ED and given nitro paste -holding ramipril d/t hyperkalemia and labetalol d/t resp status -Change to coreg, PRNs added, reported allg to amlodipine, will monitor closely and continue to add medications and adjust as warranted -01/14: Increase Coreg, given hyperkalemia over the past several days hesitant to resume JOSE -01/16: Continue Coreg, is back on Lasix, will add low-dose of the spironolactone back as she is presently not hyperkalemic but still hypertensive. May need to continue to escalate #SKY on CKD stage IIIb -Currently appears to have SKY, likely multifactorial but will decrease Lasix dose and monitor. We will repeat BMP in the afternoon -01/14: Improving #Type 2 diabetes mellitus -Glucose checks and sliding scale insulin -Hold oral hypoglycemics #Right eye conjunctivitis -appears to have possible bacterial conjunctivitis with matting, will start topical -01/16: Improving #hx Núñez cirrhosis with history of TIPS procedure -Check ammonia -Continue rifaximin -do not see lacutlose on home med list, will resume list -Giving lasix, holding spironolactone given her hyperkalemia -check liver profile -01/14: Continue to monitor. Giving lactulose and Lasix holding spironolactone still -01/16: Worsened encephalopathy, CO2 retention plus hepatic encephalopathy despite increased dose of lactulose and remaining on rifaximin. We will consult gastroenterology. On Lasix, spironolactone resumed #DVT ppx: SCDs, heparin sub q Ashley Yi MD Time spent in the patient's overall evaluation,decision-making process, review of diagnostic data, adjustment of management, discussion with other providers, nursing nursing and ancillary staff involved in patient's care documentation, 30 minutes Charges/Coding Visit Charges Inpatient E&M: 28023 Subs Hosp L2
[2023-01-16] MEDS: Arthritis Pain Compound 60 CLICK TUBE TOPICAL ×2 (09:10→21:37)
[2023-01-16] MEDS: Carvedilol 25 MG Tablet PO ×2 (09:12→21:37)
[2023-01-16] MEDS: Pantoprazole Sodium 40 MG Tablet PO (09:12)
[2023-01-16] MEDS: Iron Polysaccharide Complex 150 MG CAPSULE PO (09:12)
[2023-01-16] MEDS: Furosemide 40 MG Tablet PO (09:12)
[2023-01-16] MEDS: rifAXIMin 550 MG Tablet PO ×2 (09:12→21:37)
[2023-01-16] MEDS: Spironolactone 25 MG Tablet PO (09:18)
--- NOTE | 2023-01-16 09:50 | CPS ---
wants BIPAP on pt, RN will place on mask after giving meds. BIPAP on STBY until then.
[2023-01-16 11:20] LABS: Bedside Glucose 166 mg/dL (74-106)
[2023-01-16 17:00] LABS: Bedside Glucose 292 mg/dL (74-106)
--- NOTE | 2023-01-16 20:49 | EX.PCM.CON.G ---
HPI Consult Data Date of Consult: 01/16/23 HPI Narrative Reason for Consultation: hepatic encephalopathy HPI Narrative: MICHAEL HENLEY, is a 72 F who presents with shortness of breath several days ago. She is known to the GI service. She has a past medical history of COPD chronically on 4 L nasal cannula oxygen as well as hypertension diabetes, NÚÑEZ cirrhosis with ascites s/p TIPS with refractory encephalopathy secondary to the TIPS procedure.? She was recently admitted to the hospital and discharged 1 week ago secondary to hepatic encephalopathy.??When she was discharged from the hospital her ammonia was 51 and when she returned it was back up to 203. Family says that she has been compliant with her medications. FOR[facility]LY [facility] Medical History (Updated 01/16/23 @ 21:[address] Davison Friend, DO) Abdominal pain Anemia Ascites Asthma Cirrhosis Cirrhosis COPD (chronic obstructive pulmonary disease) Depressive disorder Diabetes mellitus GERD (gastroesophageal reflux disease) Hepatic encephalopathy Hernia history diagnostic hysteroscopy history thrombendarterectomy neck Hypertension Osteoarthrosis Portal vein thrombosis Rectus sheath hematoma Splenic vein thrombosis Thrombocytopenia Home Medications atorvastatin 40 mg tablet (Lipitor) 40 mg PO QHS cholesterol 02/09/22 [History Last Taken 07/17/22] labetalol 100 mg tablet 50 mg PO BID blood pressure 05/26/22 [History Last Taken 07/17/22] lactulose 10 gram/15 mL oral solution 30 ml PO 4X/DAY liver 10/16/22 [History Last Taken Unknown] ondansetron 4 mg disintegrating tablet 4 mg PO Q6H PRN PRN nausea/vomiting 10/16/22 [History Last Taken Unknown] spironolactone 25 mg tablet 25 mg PO DAILY liver #30 tabs 10/19/22 [Rx Last Taken Unknown] albuterol sulfate 90 mcg/actuation aerosol inhaler 2 puff inhalation Q4H PRN SOB 11/20/22 [History Last Taken Unknown] torsemide 20 mg tablet 20 mg PO BID WATER PILL 11/20/22 [History Last Taken Unknown] glipizide 10 mg tablet 10 mg PO BID Check with primary doctor 12/31/22 [History Last Taken Unknown] latanoprost 0.005 % eye drops 1 drp LEFT EYE QPM Check with primary doctor 12/31/22 [History Last Taken Unknown] omeprazole 20 mg capsule,delayed release 20 mg PO DAILY Check with primary doctor 12/31/22 [History Last Taken Unknown] potassium chloride 20 mEq tablet,extended release(part/cryst) (Klor-Con M) 20 meq PO BIDCM Check with primary doctor 12/31/22 [History Last Taken Unknown] rifaximin 550 mg tablet (Xifaxan) 550 mg PO BID Check with primary doctor 12/31/22 [History Last Taken Unknown] sodium bicarbonate 650 mg tablet 1,300 mg PO TID Check with primary doctor 12/31/22 [History Last Taken Unknown] furosemide 20 mg tablet 20 mg PO BID chf 01/12/23 [History Last Taken Unknown] glimepiride 4 mg tablet 8 mg PO BREAKFAST 01/12/23 [History Last Taken Unknown] labetalol 100 mg tablet 50 mg PO BID 01/12/23 [History Last Taken Unknown] pantoprazole 40 mg tablet,delayed release 40 mg PO DAILY 01/12/23 [History Last Taken Unknown] polysaccharide iron complex 150 mg iron capsule (iFerex 150) 150 mg PO DAILY 01/12/23 [History Last Taken Unknown] ramipril 5 mg capsule 5 mg PO QHS 01/12/23 [History Last Taken Unknown] simethicone 80 mg chewable tablet 80 mg PO QHS 01/12/23 [History Last Taken Unknown] Allergy/AdvReac Type Severity Reaction Status Date / Time suture Allergy Mild rash/ Verified 01/12/23 10:39 wound dehisence amoxicillin Allergy Unknown Verified 01/12/23 10:39 azithromycin Allergy Shortness Verified 01/12/23 10:39 of breath celecoxib [From Celebrex] Allergy Other Verified 01/12/23 10:39 ciprofloxacin HCl Allergy Shortness Verified 01/12/23 10:39 [From Cipro] of breath cortisone Allergy Swelling Verified 01/12/23 10:39 doxycycline Allergy Shortness Verified 01/12/23 10:39 of breath erythromycin base Allergy Unknown Verified 01/12/23 10:39 fexofenadine [From Ashlee] Allergy Unknown Verified 01/12/23 10:39 ibuprofen Allergy Shortness Verified 01/12/23 10:39 of breath Iodinated Contrast Media Allergy Shortness Verified 01/12/23 10:39 [DYEE] of breath iodine Allergy Shortness Verified 01/12/23 10:39 of breath levofloxacin [From Levaquin] Allergy Shortness Verified 01/12/23 10:39 of breath lorazepam [From Ativan] Allergy Shortness Verified 01/12/23 10:39 of breath nitrofurantoin Allergy Shortness Verified 01/12/23 10:39 macrocrystalline of breath [From Macrobid] Penicillins Allergy Shortness Verified 01/12/23 10:39 of breath rofecoxib [From Vioxx] Allergy Unknown Verified 01/12/23 10:39 Sulfa (Sulfonamide Allergy Shortness Verified 01/12/23 10:39 Antibiotics) of breath sulfamethoxazole Allergy Shortness Verified 01/12/23 10:39 [From Bactrim] of breath trimethoprim [From Bactrim] Allergy Shortness Verified 01/12/23 10:39 of breath amlodipine [From Norvasc] AdvReac Upset Verified 01/12/23 10:39 Stomach MISC BP MED AdvReac Shortness Uncoded 01/12/23 10:40 of breath Family History (Reviewed 12/31/22 @ 15:25 by Cecilia Fuller [employer], [employer]) Mother Heart disease Brother Heart disease Surgical History History of bilateral salpingo-oophorectomy History of endarterectomy History of laparoscopic cholecystectomy History of oral surgery S/P TIPS (transjugular intrahepatic portosystemic shunt) Social History (Reviewed 12/31/22 @ 15:25 by Cecilia Fuller [employer], [employer]) household members: spouse Smoking Status: Former smoker alcohol intake: never substance use type: does not use ROS ROS Narrative Your shortness of breath which is slightly better after nebulizer and steroids, no chest pain, minimal cough, did diffuse leg swelling, right eye crusting. Unable to obtain further ROS due to mental status Physical Exam Narrative General: Very tired this a.m. HEENT: Atraumatic, normocephalic Eyes: Would not open eyes to participate in exam Neck: Supple Respiratory: No longer tachypneic, not coarse and no wheezing Cardiovascular: Regular rate and rhythm GI: Soft, nontender, nondistended Extremities: 1+ bilateral lower extremity pitting edema Musculoskeletal: Moving all extremities Neuro: No overt focal neurological deficits but did not participate in neuro exam Skin: No rashes appreciated Psych: Less cooperative this morning Lab / Micro Data Result Diagrams: 01/16/23 05:50 01/16/23 05:50 Labs: Laboratory Results - last 24 hr 01/15/23 23:45: POC Glucose 225 H 01/16/23 05:50: WBC 5.7, RBC 2.87 L, Hgb 8.0 L, Hct 27.3 L, MCV 95.1, MCH 27.9, MCHC 29.3 L, RDW Std Deviation 57.8 H, RDW Coeff of Jordan 16.6 H, Plt Count 110 L, MPV 10.9, Immature Gran % (Auto) 0.400, Neut % (Auto) 61.2, Lymph % (Auto) 16.3 L, [place] % (Auto) 8.8, Eos % (Auto) 11.9 H, Baso % (Auto) 1.4 H, Absolute Neuts (auto) 3.5, Absolute Lymphs (auto) 0.92, Nucleated RBC % 0 01/16/23 05:50: Sodium 144, Potassium 4.4, Chloride 108 H, Carbon Dioxide 34.0 H, Anion Gap 2 L, BUN 42 H, Creatinine 2.39 H, Estim Creat Clear Calc 14.83, Est GFR (MDRD) Af Amer 25 L, Est GFR (MDRD) Non-Af 21 L, BUN/Creatinine Ratio 17.6, Glucose 200 H, Calcium 8.8, Total Bilirubin 0.40, AST 49 H, ALT 34, Alkaline Phosphatase 105, Total Protein 5.5 L, Albumin 1.9 L, Globulin 3.6, Albumin/Globulin Ratio 0.5 L 01/16/23 05:50: Ammonia 146.0 H 01/16/23 06:26: POC Glucose 173 H 01/16/23 10:56: POC Glucose 166 H 01/16/23 16:32: POC Glucose 292 H Assessment & Plan Assessment/Plan (1) Cirrhosis: PLAN: Núñez cirrhosis not on transplant list.? Her current MELD is 14 and she is a child Ortiz class C due to renal failure and hepatic encephalopathy.? She is status post TIPS for refractory and recalcitrant ascites with acute kidney injury likely secondary to diuretics and diarrhea causing volume loss.? Patient is noncompliant with medicines and is not on Xifaxan as an outpatient.? Agree with lactulose 20 cc every 4 hours. She has a severe metabolic acidosis and possibly respiratory acidosis that is possibly secondary to GI bicarbonate loss, renal failure and COPD .? Her sodium bicarbonate is improving on a bicarb drip.? Critically ill patients with cirrhosis have a high mortality rate and poor prognosis because of the high prevalence of metabolic acidosis.? MELD-NA performs well on the short-term mortality assessment in critically ill patients with cirrhosis and metabolic acidosis.? Her MELD sodium is lower because she has a TIPS procedure.? It is currently calculated out at a 16.? She is still a child Ortiz class C.? (2) Hepatic encephalopathy: PLAN: Metabolic encephalopathy secondary to hepatic encephalopathy from chronic cirrhosis of the liver-patient will continue on her lactulose and add neomycin 500mg BID, azithromycin 1000mg QD, flagyl 500mg BID and continue Xifaxan Charges/Coding Visit Charges Inpatient E&M: 40881 Init Hosp L3
[2023-01-16] MEDS: Atorvastatin Calcium 40 MG Tablet PO (21:40)
[2023-01-16 22:26] LABS: Bedside Glucose 255 mg/dL (74-106)
[2023-01-17] VITALS (10 sets, daily range): BP systolic 141–162; BP diastolic 56–110; PULSE 67–88; RESP 12–20; TEMP 36.6–36.9; O2SAT 94–100; BMI 31.7
[2023-01-17] MEDS: Ciprofloxacin 0.3% 2.5ml Bottle 2 DRP RIGHT EYE ×4 (01:03→23:27)
[2023-01-17] MEDS: Lactulose 20 GM/30 ML UDC PO ×6 (01:04→17:01)
[2023-01-17] MEDS: 0.9% Saline Lock 10 ML Syringe IV (01:04)
[2023-01-17] MEDS: Heparin Injection (Vial) 5,000 UNIT/ML VIAL 5000 UNIT SC ×3 (04:38→23:33)
[2023-01-17] MEDS: Insulin Lispro 100 UNIT/ML INSULN.PEN SC ×4 (06:25→23:55)
[2023-01-17 06:50] LABS: Bedside Glucose 173 mg/dL (74-106)
[2023-01-17] MEDS: Ipratropium/Albuterol Sulfate 3 ML AMPUL.NEB INHALATION ×3 (07:15→13:36)
[2023-01-17 08:35] LABS: Absolute Lymphocyte Count 0.93 X10^3/uL (0.83-4.51); Absolute Neutrophil Count 3.1 X10^3/uL (2.0-7.7); Basophil# 0.08 X10^3/uL; Basophil% 1.5 % (0-1); Eosinophil# 0.83 X10^3/uL; Eosinophils% 15.1 % (0-5); Hematocrit 28.6 % (37-47); Hemoglobin 8.3 g/dL (12.0-15.0); Lymphocyte # 0.93 X10^3/ul (0.83-4.51); Mean Corpuscular Hgb 27.7 pg (27.0-32.0); Mean Corpuscular Volume 95.3 fL (81-99); Mean Platelet Vol. 11.2 fl (6.2-12.0); Monocyte# 0.52 X10^3/uL; Monocyte% 9.5 % (0-10); NRBC Flagged by Analyzer 0 % (0-5); Neutrophil # 3.11 X10^3/uL (2.7-7.7); Neutrophil % 56.7 % (47-70); Platelet Count 110 K/mm3 (150-450); RBC Distribution Width CV 16.6 % (11.6-14.6); RBC Distribution Width SD 58.5 fl (35.1-43.9); White Blood Count 5.5 K/mm3 (4.4-11.0)
[2023-01-17 09:07] LABS: ALB/GLOB Ratio 0.5 RATIO (0.9-2.4); AST(SGOT) 47 U/L (15-37); Alanine Aminotransfer ALT/SGPT 33 U/L (13-56); Alkaline Phosphatase 110 U/L (45-117); Anion Gap 3 (5-15); BUN 36 mg/dL (7-18); BUN/Creat Ratio 15.5 RATIO (10-20); Calcium,Total 9.1 mg/dL (8.5-10.1); Chloride 108 mmol/L (98-107); Creatinine, Serum 2.33 mg/dL (0.55-1.02); EST Glomerular Filtration Rate 22 mL/min (>60); Est Glom Filt Rate - Afr Amer 26 mL/min (>60); Estimated Creatinine Clearance 15.22 ml/min; Globulin 3.7 g/dL (2.2-4.2); Glucose 182 mg/dL (74-106); Potassium 3.9 mmol/L (3.5-5.1); Protein, Total 5.7 g/dL (6.4-8.2); Sodium Level 144 mmol/L (136-145)
[2023-01-17] MEDS: Furosemide 40 MG Tablet PO (09:13)
[2023-01-17] MEDS: Pantoprazole Sodium 40 MG Tablet PO (09:13)
[2023-01-17] MEDS: Carvedilol 25 MG Tablet PO ×2 (09:13→23:30)
[2023-01-17] MEDS: Arthritis Pain Compound 60 CLICK TUBE TOPICAL ×2 (09:13→23:26)
[2023-01-17] MEDS: Iron Polysaccharide Complex 150 MG CAPSULE PO (09:14)
[2023-01-17] MEDS: rifAXIMin 550 MG Tablet PO ×2 (09:14→23:31)
[2023-01-17] MEDS: Spironolactone 25 MG Tablet PO (09:15)
[2023-01-17] MEDS: Azithromycin 250 MG Tablet 1000 MG PO (09:16)
[2023-01-17] MEDS: metroNIDAZOLE 500 MG Tablet PO ×2 (09:16→23:29)
--- NOTE | 2023-01-17 10:46 | PN.HOSP_ITS ---
Reason for Visit Reason for Visit: Diagnoses Hyperkalemia (01/12/23) Heart failure, unspecified (01/12/23) Unspecified cirrhosis of liver (01/12/23) Hepatic encephalopathy (01/12/23) Chronic kidney disease, unspecified (01/12/23) Subjective Subjective Patient up on bedside commode today, awake and alert though still slightly confused Objective Data Objective Data Vital Signs: Vital Signs Temp Pulse Resp BP Pulse Ox O2 Del Method O2 Flow Rate 98.0 F 68 15 162/56 H 96 Room Air 2 01/17/23 09:07 01/17/23 09:07 01/17/23 09:07 01/17/23 09:07 01/17/23 09:07 01/17/23 09:07 01/17/23 09:07 FiO2 28 01/17/23 03:30 Oxygen Flow Rate (L/min) 2 Oxygen Delivery Method Room Air Weight: 73.8 kg Body Mass Index (BMI) 31.7 Intake & Output: Intake and Output for Last 24 Hours 01/15/23 01/16/23 01/17/23 23:59 23:59 23:59 Intake Total 830 / 830 500 / 500 200 / 200 Output Total 300 / 300 Balance 530 / 530 500 / 500 200 / 200 Lab / Micro Data Result Diagrams: 01/17/23 07:02 01/17/23 07:02 Labs: Laboratory Results - last 24 hr 01/16/23 10:56: POC Glucose 166 H 01/16/23 16:32: POC Glucose 292 H 01/16/23 21:31: POC Glucose 255 H 01/17/23 06:23: POC Glucose 173 H 01/17/23 07:02: WBC 5.5, RBC 3.00 L, Hgb 8.3 L, Hct 28.6 L, MCV 95.3, MCH 27.7, MCHC 29.0 L, RDW Std Deviation 58.5 H, RDW Coeff of Jordan 16.6 H, Plt Count 110 L, MPV 11.2, Immature Gran % (Auto) 0.200, Neut % (Auto) 56.7, Lymph % (Auto) 17.0 L, Dougherty % (Auto) 9.5, Eos % (Auto) 15.1 H, Baso % (Auto) 1.5 H, Absolute Neuts (auto) 3.1, Absolute Lymphs (auto) 0.93, Nucleated RBC % 0 01/17/23 07:02: Sodium 144, Potassium 3.9, Chloride 108 H, Carbon Dioxide 33.0 H , Anion Gap 3 L, BUN 36 H, Creatinine 2.33 H, Estim Creat Clear Calc 15.22, Est GFR (MDRD) Af Amer 26 L, Est GFR (MDRD) Non-Af 22 L, BUN/Creatinine Ratio 15.5, Glucose 182 H, Calcium 9.1, Total Bilirubin 0.60, AST 47 H, ALT 33, Alkaline Phosphatase 110, Total Protein 5.7 L, Albumin 2.0 L, Globulin 3.7, Albumin/Globulin Ratio 0.5 L 01/17/23 07:29: Ammonia 103.0 H Micro: Microbiology 01/12/23 07:20 Blood Culture (Wb) - Anticubital Left Blood Culture - Final No growth in 5 days. 01/12/23 07:25 Blood Culture (Wb) - Arm Left Blood Culture - Final No growth in 5 days. 01/12/23 10:50 Mucosa - Nose Respiratory Panel (PCR) - Final 01/12/23 06:19 Nasal Secretion SARS-CoV-2 & FLU Antigen (Rapid) - Final Physical Exam Narrative General: Alert, still slightly confused but awake and answering questions HEENT: Atraumatic, normocephalic Eyes: Anicteric, normal conjunctiva, extraocular movements grossly intact Neck: Supple Respiratory: Unchanged respiratory effort Cardiovascular: Regular rate GI: nondistended Musculoskeletal: Moving all extremities Neuro: No overt focal neurological deficits Skin: No rashes appreciated Psych: Cooperative Assessment & Plan Assessment/Plan (1) Acute exacerbation of CHF (congestive heart failure): (2) Acute hyperkalemia: (3) Chronic kidney disease: PLAN: Plan #Encephalopathy, suspect metabolic -We will check ammonia given her history of hepatic encephalopathy that may be due to underlying infection versus CHF, less likely hypertension as her altered level of consciousness preceded her SBP greater than 200 -Also obtain ABG -01/13: Was certainly improved today, continue current management -01/14: Continue lactulose, assess ammonia 01/15: Has been somewhat increasingly more tired yesterday, ammonia was elevated more so than previously on lactulose frequency increased, down slightly today -01/16: Patient reported to be taking the lactulose every 4 and had 4 bowel movements but ammonia back up again. Suspect current encephalopathy is multifactorial with her ammonia but also she has not worn BiPAP for the past 2 nights for various reasons. Discussed with patient's RN, at time of my evaluation she is very sleepy but was not complaining of nausea or vomiting. Will give her another dose of Zofran and place BiPAP as long as she is not having increased nausea and vomiting. Suspect she will not improve until CO2 improves as well as ammonia. We will consult GI given worsening despite lactulose being escalated and her having bowel movements. Continue rifaximin. May need to place NG tube to increase lactulose frequency if patient does not begin to improve -01/17: Was improved today with lactulose and bowel movements as well as wearing BiPAP overnight, stressed importance of BiPAP. Also added Flagyl, azithromycin, neomycin per GI recommendations. #Acute hypoxia and SOB on chronic respiratory failure on 4L home O2/COPD/acute on chronic HFpEF -AECHF vs a COPD versus less likely PE -Chest x-ray with increased interstitial prominence suspicious for CHF and left pleural effusion with overlying atelectasis or infiltration -BNP 604, D-dimer 2.44, Pro-Marek 0.16 -Given her worsening peripheral edema as well as elevated BNP and chest x-ray findings high suspicion for fluid overload/AECHF, will start Lasix -Last echocardiogram 01/01/2023 with EF of 70% but unable to assess diastolic dysfunction. Echo 02/10/2022 commented on moderate to severe mitral annular calcification, RVSP of 44 and velocities suggestive of diastolic dysfunction -Did improve after receiving DuoNebs and methylprednisone, not wheezing and do not have high suspicion for AECOPD requiring steroids but given her history and response we will continue DuoNebs -Low suspicion for pneumonia, Pro-Marek very minimally elevated at 0.16, white blood cell count minimally elevated but could be reactive, afebrile. Cultures were obtained, if does not clinically improve or cx positive will begin antibiotics suspect this is related to volume overload -COVID and flu wnl, will check resp panel -Incentive spirometry -Oxygenation improved but given work of breathing while start on BiPAP -Repeat chest x-ray in a.m. -We will consider CTA that was not tachycardic, no longer hypoxic after breathing treatment and steroids and has had no chest pain, suspect elevated D- dimer is multifactorial. Given kidney function hesitant to give IV contrast and given mental status do not think she can tolerate VQ scan. Will obtain lower extremity venous duplex -01/13: Tachypnea improved today, on baseline oxygen and overall appears to be doing better. Chest x-ray still reveals congestion and effusion. Pro-Marek increased slightly inquiry if there could be an underlying pneumonia, will get Noncon CT of the chest to further evaluate the parenchyma. Cultures pending. With improvement will hold on abx pending cultures. If develops cough or worsening or fever will begin empiric abx. Receiving Lasix and exam seems less overloaded with decreased peripheral edema improving shortness of breath, will decrease Lasix dose however suspect may be somewhat intravascularly depleted -01/14: Breathing significantly improved, change Lasix to p.o. and breathing treatments to every 6 hours while awake. Cultures no growth to date. Improved with Lasix and nebs, suspect that this was fluid overload and heart failure -01/15: Significantly improved -01/16: Oxygenation improved but she has not been wearing BiPAP and suspect she is continuing to have increased CO2 retention. We will have BiPAP placed FREDDY. -01/17: Seems to be doing much better today after wearing BiPAP all night. ABG looks similar to yesterday but clinically improving. #Hyperkalemia -Confirmed with repeat, repeat 6.3 -Possibly iatrogenic with oral potassium chloride in addition to ramipril and spironolactone that was on 20 of Lasix -EKG without peaked T waves -Received calcium gluconate, Kayexalate, glucose and insulin in ED -Monitor on telemetry and will repeat BMP in several hours -Hold home spironolactone and home potassium supplementation, hold ramipril -01/13: Potassium had improved, slightly up again this morning, will give another dose of Lasix and also give Kayexalate. Kidney function worsened which may contribute -01/14: Improved today, continue to hold spironolactone and JOSE -01/17: Resolved, spironolactone resumed #Hypertensive urgency -Hydralazine x1 in the ED and given nitro paste -holding ramipril d/t hyperkalemia and labetalol d/t resp status -Change to coreg, PRNs added, reported allg to amlodipine, will monitor closely and continue to add medications and adjust as warranted -01/14: Increase Coreg, given hyperkalemia over the past several days hesitant to resume JOSE -01/16: Continue Coreg, is back on Lasix, will add low-dose of the spironolactone back as she is presently not hyperkalemic but still hypertensive. May need to continue to escalate #SKY on CKD stage IIIb -Currently appears to have SKY, likely multifactorial but will decrease Lasix dose and monitor. We will repeat BMP in the afternoon -01/14: Improving #Type 2 diabetes mellitus -Glucose checks and sliding scale insulin -Hold oral hypoglycemics #Right eye conjunctivitis -appears to have possible bacterial conjunctivitis with matting, will start topical -01/16: Improving #hx Núñez cirrhosis with history of TIPS procedure -Check ammonia -Continue rifaximin -do not see lacutlose on home med list, will resume list -Giving lasix, holding spironolactone given her hyperkalemia -check liver profile -01/14: Continue to monitor. Giving lactulose and Lasix holding spironolactone still -01/16: Worsened encephalopathy, CO2 retention plus hepatic encephalopathy despite increased dose of lactulose and remaining on rifaximin. We will consult gastroenterology. On Lasix and spironolactone, continue lactulose and rifaximin, added Flagyl, azithromycin, neomycin per GI recommendations #DVT ppx: SCDs, heparin sub q Ashley Yi MD Time spent in the patient's overall evaluation,decision-making process, review of diagnostic data, adjustment of management, discussion with other providers, nursing nursing and ancillary staff involved in patient's care documentation, 30 minutes Charges/Coding Visit Charges Inpatient E&M: 48014 Subs Hosp L2
[2023-01-17 11:36] LABS: Base Excess 7 mmol/L (-2 to +2); Bicarbonate 32.4 mmol/L (22-26); Blood Gas Specimen Type ART; O2 Delivery Device Cannula; PO2 71 mmHG (75-100); SITE L Radial; SO2 93 % (95-99); Total Carbon Dioxide 34 mmol/L; pCO2 59.1 mmHg (35-45); pH 7.35 (7.35-7.45)
--- NOTE | 2023-01-17 11:41 | PCM.PROGNOTE ---
Subjective Subjective Patient is a little bit more alert today. She has been having bowel movement. She has been sleeping on and off. Objective Data Objective Data Vital Signs: Vital Signs Temp Pulse Resp BP Pulse Ox O2 Del Method O2 Flow Rate 98.0 F 68 15 162/56 H 96 Room Air 2 01/17/23 09:07 01/17/23 09:07 01/17/23 09:07 01/17/23 09:07 01/17/23 09:07 01/17/23 09:07 01/17/23 09:07 FiO2 28 01/17/23 03:30 Oxygen Flow Rate (L/min) 2 Oxygen Delivery Method Room Air Weight: 162 lb 11.218 oz Body Mass Index (BMI) 31.7 Intake & Output: Intake and Output for Last 24 Hours 01/15/23 01/16/23 01/17/23 23:59 23:59 23:59 Intake Total 830 / 830 500 / 500 200 / 200 Output Total 300 / 300 Balance 530 / 530 500 / 500 200 / 200 Lab / Micro Data Result Diagrams: 01/17/23 07:02 01/17/23 07:02 Labs: Laboratory Results - last 24 hr 01/16/23 16:32: POC Glucose 292 H 01/16/23 21:31: POC Glucose 255 H 01/17/23 06:23: POC Glucose 173 H 01/17/23 07:02: WBC 5.5, RBC 3.00 L, Hgb 8.3 L, Hct 28.6 L, MCV 95.3, MCH 27.7, MCHC 29.0 L, RDW Std Deviation 58.5 H, RDW Coeff of Jordan 16.6 H, Plt Count 110 L, MPV 11.2, Immature Gran % (Auto) 0.200, Neut % (Auto) 56.7, Lymph % (Auto) 17.0 L, Josephine % (Auto) 9.5, Eos % (Auto) 15.1 H, Baso % (Auto) 1.5 H, Absolute Neuts (auto) 3.1, Absolute Lymphs (auto) 0.93, Nucleated RBC % 0 01/17/23 07:02: Sodium 144, Potassium 3.9, Chloride 108 H, Carbon Dioxide 33.0 H, Anion Gap 3 L, BUN 36 H, Creatinine 2.33 H, Estim Creat Clear Calc 15.22, Est GFR (MDRD) Af Amer 26 L, Est GFR (MDRD) Non-Af 22 L, BUN/Creatinine Ratio 15.5, Glucose 182 H, Calcium 9.1, Total Bilirubin 0.60, AST 47 H, ALT 33, Alkaline Phosphatase 110, Total Protein 5.7 L, Albumin 2.0 L, Globulin 3.7, Albumin/Globulin Ratio 0.5 L 01/17/23 07:29: Ammonia 103.0 H Micro: Microbiology 01/12/23 07:20 Blood Culture (Wb) - Anticubital Left Blood Culture - Final No growth in 5 days. 01/12/23 07:25 Blood Culture (Wb) - Arm Left Blood Culture - Final No growth in 5 days. 01/12/23 10:50 Mucosa - Nose Respiratory Panel (PCR) - Final 01/12/23 06:19 Nasal Secretion SARS-CoV-2 & FLU Antigen (Rapid) - Final ABG Data ABG results: ABG 01/17/23 11:27 Specimen Type ART Sample Site L Radial pH 7.35 Bicarbonate Actual 32.4 H Total CO2 34 Base Excess 7 H O2 Saturation 93 L ABG pCO2 59.1 H ABG pO2 71 L Eliecer Test N/A O2 Delivery Device Cannula Liter Flow 2.0 Physical Exam Narrative General: Very tired this a.m. HEENT: Atraumatic, normocephalic Eyes: Would not open eyes to participate in exam Neck: Supple Respiratory: No longer tachypneic, not coarse and no wheezing Cardiovascular: Regular rate and rhythm GI: Soft, nontender, nondistended Extremities: 1+ bilateral lower extremity pitting edema Musculoskeletal: Moving all extremities Neuro: No overt focal neurological deficits but did not participate in neuro exam Skin: No rashes appreciated Psych: Less cooperative this morning Assessment & Plan Assessment/Plan (1) Cirrhosis: PLAN: Núñez cirrhosis not on transplant list.? Her current MELD is 14 and she is a child Ortiz class C due to renal failure and hepatic encephalopathy.? She is status post TIPS for refractory and recalcitrant ascites with acute kidney injury likely secondary to diuretics and diarrhea causing volume loss.? Patient is noncompliant with medicines and is not on Xifaxan as an outpatient.? Agree with lactulose 20 cc every 4 hours. She has a severe metabolic acidosis and possibly respiratory acidosis that is possibly secondary to GI bicarbonate loss, renal failure and COPD .? Her sodium bicarbonate is improving on a bicarb drip.? Critically ill patients with cirrhosis have a high mortality rate and poor prognosis because of the high prevalence of metabolic acidosis.? MELD-NA performs well on the short-term mortality assessment in critically ill patients with cirrhosis and metabolic acidosis.? Her MELD sodium is lower because she has a TIPS procedure.? It is currently calculated out at a 16.? She is still a child Ortiz class C.? (2) Hepatic encephalopathy: PLAN: Her ammonia is down to 104 today. She may benefit from phenyl benzoate. This will help further metabolize serum ammonia. She does respond very well to lactulose neomycin azithromycin, Flagyl and Xifaxan. Charges/Coding Visit Charges Inpatient E&M: 57295 Subs Hosp L3
[2023-01-17 12:20] LABS: Bedside Glucose 251 mg/dL (74-106)
[2023-01-17 17:31] LABS: Bedside Glucose 191 mg/dL (74-106)
--- NOTE | 2023-01-17 23:14 | CPS ---
Patient refused BIPAP at this time. Will continue to monitor.
[2023-01-17] MEDS: Atorvastatin Calcium 40 MG Tablet PO (23:31)
[2023-01-18] VITALS (10 sets, daily range): BP systolic 154–158; BP diastolic 44–50; PULSE 59–84; RESP 16–18; TEMP 36.3–36.8; O2SAT 94–100; BMI 32.2
[2023-01-18 01:20] LABS: Bedside Glucose 207 mg/dL (74-106)
[2023-01-18] MEDS: Lactulose 20 GM/30 ML UDC PO ×7 (05:02→21:29)
[2023-01-18] MEDS: Heparin Injection (Vial) 5,000 UNIT/ML VIAL 5000 UNIT SC (05:02)
[2023-01-18] MEDS: Ciprofloxacin 0.3% 2.5ml Bottle 2 DRP RIGHT EYE ×3 (05:02→13:47)
[2023-01-18 05:42] LABS: Absolute Lymphocyte Count 1.06 X10^3/uL (0.83-4.51); Absolute Neutrophil Count 3.5 X10^3/uL (2.0-7.7); Basophil# 0.07 X10^3/uL; Basophil% 1.1 % (0-1); Eosinophil# 0.94 X10^3/uL; Eosinophils% 15.4 % (0-5); Hematocrit 28.2 % (37-47); Hemoglobin 8.1 g/dL (12.0-15.0); Lymphocyte # 1.06 X10^3/ul (0.83-4.51); Lymphocyte % 17.4 % (19-41); Mean Corp Hgb Conc 28.7 g/dL (32-36); Mean Corpuscular Hgb 27.6 pg (27.0-32.0); Mean Corpuscular Volume 95.9 fL (81-99); Mean Platelet Vol. 11.3 fl (6.2-12.0); Monocyte# 0.55 X10^3/uL; NRBC Flagged by Analyzer 0 % (0-5); Neutrophil # 3.45 X10^3/uL (2.7-7.7); Neutrophil % 56.8 % (47-70); Platelet Count 103 K/mm3 (150-450); RBC Distribution Width CV 16.3 % (11.6-14.6); RBC Distribution Width SD 57.3 fl (35.1-43.9); Red Blood Count 2.94 M/mm3 (4.2-5.4); White Blood Count 6.1 K/mm3 (4.4-11.0)
[2023-01-18 06:03] LABS: Anion Gap 2 (5-15); BUN 36 mg/dL (7-18); BUN/Creat Ratio 16.9 RATIO (10-20); Calcium,Total 8.9 mg/dL (8.5-10.1); Chloride 108 mmol/L (98-107); Creatinine, Serum 2.13 mg/dL (0.55-1.02); EST Glomerular Filtration Rate 24 mL/min (>60); Est Glom Filt Rate - Afr Amer 29 mL/min (>60); Estimated Creatinine Clearance 16.64 ml/min; Glucose 192 mg/dL (74-106); Potassium 4.2 mmol/L (3.5-5.1); Sodium Level 142 mmol/L (136-145)
[2023-01-18] MEDS: Insulin Lispro 100 UNIT/ML INSULN.PEN SC ×4 (06:51→21:39)
[2023-01-18] MEDS: Ipratropium/Albuterol Sulfate 3 ML AMPUL.NEB INHALATION ×3 (07:25→19:30)
--- NOTE | 2023-01-18 10:01 | PN.HOSP_ITS ---
Reason for Visit Reason for Visit: Diagnoses Hyperkalemia (01/12/23) Heart failure, unspecified (01/12/23) Unspecified cirrhosis of liver (01/12/23) Hepatic encephalopathy (01/12/23) Chronic kidney disease, unspecified (01/12/23) Subjective Subjective Continue to slowly improve again with lactulose, BiPAP, and taking GI recommended medications. Main complaint this morning is my butt is pinching but feels her breathing is getting better. Objective Data Objective Data Vital Signs: Vital Signs Temp Pulse Resp BP Pulse Ox O2 Del Method O2 Flow Rate 98.2 F 61 16 155/45 H 100 Nasal Cannula 2 01/18/23 09:39 01/18/23 09:39 01/18/23 09:39 01/18/23 09:39 01/18/23 09:39 01/18/23 09:41 01/18/23 09:41 FiO2 28 01/17/23 03:30 Oxygen Flow Rate (L/min) 2 Oxygen Delivery Method Nasal Cannula Weight: 74.9 kg Body Mass Index (BMI) 32.2 Intake & Output: Intake and Output for Last 24 Hours 01/16/23 01/17/23 01/18/23 23:59 23:59 23:59 Intake Total 500 / 500 1280 / 1280 Balance 500 / 500 1280 / 1280 Lab / Micro Data Result Diagrams: 01/18/23 05:33 01/18/23 05:33 Labs: Laboratory Results - last 24 hr 01/17/23 11:44: POC Glucose 251 H 01/17/23 16:58: POC Glucose 191 H 01/17/23 23:54: POC Glucose 207 H 01/18/23 05:33: Ammonia 99.0 H 01/18/23 05:33: WBC 6.1, RBC 2.94 L, Hgb 8.1 L, Hct 28.2 L, MCV 95.9, MCH 27.6, MCHC 28.7 L, RDW Std Deviation 57.3 H, RDW Coeff of [place] 16.3 H, Plt Count 103 L, MPV 11.3, Immature Gran % (Auto) 0.300, Neut % (Auto) 56.8, Lymph % (Auto) 17.4 L, [place] % (Auto) 9.0, Eos % (Auto) 15.4 H, Baso % (Auto) 1.1 H, Absolute Neuts (auto) 3.5, Absolute Lymphs (auto) 1.06, Nucleated RBC % 0 01/18/23 05:33: Sodium 142, Potassium 4.2, Chloride 108 H, Carbon Dioxide 32.0, Anion Gap 2 L, BUN 36 H, Creatinine 2.13 H, Estim Creat Clear Calc 16.64, Est GFR (MDRD) Af Amer 29 L, Est GFR (MDRD) Non-Af 24 L, BUN/Creatinine Ratio 16.9, Glucose 192 H, Calcium 8.9 Micro: Microbiology 01/12/23 07:20 Blood Culture (Wb) - Anticubital Left Blood Culture - Final No growth in 5 days. 01/12/23 07:25 Blood Culture (Wb) - Arm Left Blood Culture - Final No growth in 5 days. 01/12/23 10:50 Mucosa - Nose Respiratory Panel (PCR) - Final 01/12/23 06:19 Nasal Secretion SARS-CoV-2 & FLU Antigen (Rapid) - Final ABG Data ABG results: ABG 01/17/23 11:27 Specimen Type ART Sample Site L Radial pH 7.35 Bicarbonate Actual 32.4 H Total CO2 34 Base Excess 7 H O2 Saturation 93 L ABG pCO2 59.1 H ABG pO2 71 L Eliecer Test N/A O2 Delivery Device Cannula Liter Flow 2.0 Physical Exam Narrative General: Sitting up on side of bed, more cooperative this a.m. HEENT: Atraumatic, normocephalic Eyes: Would not open eyes to participate in exam Neck: Supple Respiratory: No longer tachypneic, not coarse and no wheezing Cardiovascular: Regular rate and rhythm GI: Soft, nontender, nondistended Extremities: 1+ bilateral lower extremity pitting edema Musculoskeletal: Moving all extremities Neuro: No overt focal neurological deficits Skin: No rashes appreciated Psych: Fairly cooperative Assessment & Plan Assessment/Plan (1) Acute exacerbation of CHF (congestive heart failure): (2) Acute hyperkalemia: (3) Chronic kidney disease: PLAN: Plan #Acute hypoxia and SOB on chronic respiratory failure on 4L home O2/COPD/acute on chronic HFpEF -AECHF vs a COPD versus less likely PE -Chest x-ray with increased interstitial prominence suspicious for CHF and left pleural effusion with overlying atelectasis or infiltration -BNP 604, D-dimer 2.44, Pro-Marek 0.16 -Given her worsening peripheral edema as well as elevated BNP and chest x-ray findings high suspicion for fluid overload/AECHF, will start Lasix -Last echocardiogram 01/01/2023 with EF of 70% but unable to assess diastolic dysfunction. Echo 02/10/2022 commented on moderate to severe mitral annular calcification, RVSP of 44 and velocities suggestive of diastolic dysfunction -Did improve after receiving DuoNebs and methylprednisone, not wheezing and do not have high suspicion for AECOPD requiring steroids but given her history and response we will continue DuoNebs -Low suspicion for pneumonia, Pro-Marek very minimally elevated at 0.16, white blood cell count minimally elevated but could be reactive, afebrile. Cultures were obtained, if does not clinically improve or cx positive will begin antibio tics suspect this is related to volume overload -COVID and flu wnl, will check resp panel -Incentive spirometry -Oxygenation improved but given work of breathing while start on BiPAP -Repeat chest x-ray in a.m. -We will consider CTA that was not tachycardic, no longer hypoxic after breathing treatment and steroids and has had no chest pain, suspect elevated D- dimer is multifactorial. Given kidney function hesitant to give IV contrast and given mental status do not think she can tolerate VQ scan. Will obtain lower extremity venous duplex -01/13: Tachypnea improved today, on baseline oxygen and overall appears to be doing better. Chest x-ray still reveals congestion and effusion. Pro-Marek in creased slightly inquiry if there could be an underlying pneumonia, will get Noncon CT of the chest to further evaluate the parenchyma. Cultures pending. With improvement will hold on abx pending cultures. If develops cough or worsening or fever will begin empiric abx. Receiving Lasix and exam seems less overloaded with decreased peripheral edema improving shortness of breath, will decrease Lasix dose however suspect may be somewhat intravascularly depleted -01/14: Breathing significantly improved, change Lasix to p.o. and breathing treatments to every 6 hours while awake. Cultures no growth to date. Improved with Lasix and nebs, suspect that this was fluid overload and heart failure -01/15: Significantly improved -01/16: Oxygenation improved but she has not been wearing BiPAP and suspect she is continuing to have increased CO2 retention. We will have BiPAP placed FREDDY. -01/17: Seems to be doing much better today after wearing BiPAP all night. ABG looks similar to yesterday but clinically improving. -01/18: Breathing has somewhat been improving however patient gaining weight and legs becoming more edematous, will switch back to IV Lasix 40 IV daily and give another dose x1 now advised Konstantin wraps #Encephalopathy, suspect metabolic -We will check ammonia given her history of hepatic encephalopathy that may be due to underlying infection versus CHF, less likely hypertension as her altered level of consciousness preceded her SBP greater than 200 -Also obtain ABG -01/13: Was certainly improved today, continue current management -01/14: Continue lactulose, assess ammonia 01/15: Has been somewhat increasingly more tired yesterday, ammonia was elevated more so than previously on lactulose frequency increased, down slightly today -01/16: Patient reported to be taking the lactulose every 4 and had 4 bowel movements but ammonia back up again. Suspect current encephalopathy is multi factorial with her ammonia but also she has not worn BiPAP for the past 2 nights for various reasons. Discussed with patient's RN, at time of my evaluation she is very sleepy but was not complaining of nausea or vomiting. Will give her another dose of Zofran and place BiPAP as long as she is not having increased nausea and vomiting. Suspect she will not improve until CO2 improves as well as ammonia. We will consult GI given worsening despite lactulose being escalated and her having bowel movements. Continue rifaximin. May need to place NG tube to increase lactulose frequency if patient does not begin to improve -01/17: Was improved today with lactulose and bowel movements as well as wearing BiPAP overnight, stressed importance of BiPAP. Also added Flagyl, azithromycin, neomycin per GI recommendations. -01/18: Getting close to baseline with compliance with the BiPAP and now that she is having adequate bowel movements and ammonia is improving. Suspect she will be safe for discharge early this week if mental status and volume status are optimized. Hesitant to increase her spironolactone due to her hyperkalemia, continue to monitor daily weights and I's and O's #Hyperkalemia -Confirmed with repeat, repeat 6.3 -Possibly iatrogenic with oral potassium chloride in addition to ramipril and spironolactone that was on 20 of Lasix -EKG without peaked T waves -Received calcium gluconate, Kayexalate, glucose and insulin in ED -Monitor on telemetry and will repeat BMP in several hours -Hold home spironolactone and home potassium supplementation, hold ramipril -01/13: Potassium had improved, slightly up again this morning, will give another dose of Lasix and also give Kayexalate. Kidney function worsened which may contribute -01/14: Improved today, continue to hold spironolactone and KONSTANTIN -01/17: Resolved, spironolactone resumed #Hypertensive urgency -Hydralazine x1 in the ED and given nitro paste -holding ramipril d/t hyperkalemia and labetalol d/t resp status -Change to coreg, PRNs added, reported allg to amlodipine, will monitor closely and continue to add medications and adjust as warranted -01/14: Increase Coreg, given hyperkalemia over the past several days hesitant to resume KONSTANTIN -01/16: Continue Coreg, is back on Lasix, will add low-dose of the spironolactone back as she is presently not hyperkalemic but still hypertensive. May need to continue to escalate 01/18: Still mildly elevated but significantly improved #SKY on CKD stage IIIb -Currently appears to have SKY, likely multifactorial but will decrease Lasix dose and monitor. We will repeat BMP in the afternoon -01/14: Improving #Type 2 diabetes mellitus -Glucose checks and sliding scale insulin -Hold oral hypoglycemics #Right eye conjunctivitis -appears to have possible bacterial conjunctivitis with matting, will start topical -01/16: Improving -01/18: Resolved, drops discontinued #hx Núñez cirrhosis with history of TIPS procedure -Check ammonia -Continue rifaximin -do not see lacutlose on home med list, will resume list -Giving lasix, holding spironolactone given her hyperkalemia -check liver profile -01/14: Continue to monitor. Giving lactulose and Lasix holding spironolactone still -01/16: Worsened encephalopathy, CO2 retention plus hepatic encephalopathy despite increased dose of lactulose and remaining on rifaximin. We will consult gastroenterology. On Lasix and spironolactone, continue lactulose and rifaximin, added Flagyl, azithromycin, neomycin per GI recommendations #DVT ppx: SCDs Ashley Yi MD Time spent in the patient's overall evaluation,decision-making process, review o f diagnostic data, adjustment of management, discussion with other providers, nursing nursing and ancillary staff involved in patient's care documentation, 30 minutes Charges/Coding Visit Charges Inpatient E&M: 58041 Subs Hosp L2
[2023-01-18] MEDS: Pantoprazole Sodium 40 MG Tablet PO (10:57)
[2023-01-18] MEDS: Azithromycin 250 MG Tablet 1000 MG PO (10:57)
[2023-01-18] MEDS: metroNIDAZOLE 500 MG Tablet PO ×2 (10:57→21:29)
[2023-01-18] MEDS: Arthritis Pain Compound 60 CLICK TUBE TOPICAL ×2 (10:58→21:28)
[2023-01-18] MEDS: Carvedilol 25 MG Tablet PO ×2 (10:58→21:32)
[2023-01-18] MEDS: Furosemide 40 MG Tablet PO (10:58)
[2023-01-18] MEDS: rifAXIMin 550 MG Tablet PO ×2 (10:58→21:30)
[2023-01-18] MEDS: Iron Polysaccharide Complex 150 MG CAPSULE PO (10:58)
[2023-01-18] MEDS: Spironolactone 25 MG Tablet PO (10:58)
[2023-01-18 11:31] LABS: Bedside Glucose 179 mg/dL (74-106)
[2023-01-18 16:25] LABS: Bedside Glucose 265 mg/dL (74-106)
--- NOTE | 2023-01-18 16:36 | VDLE_ITS ---
Reason For Study: Elevated D-Dimer RIGHT LEFT GSV is normal. GSV is normal. CFV is compressible, spontaneous, phasic, CFV is compressible, spontaneous, phasic, competent and demonstrates normal competent, and demonstrates normal augmentation. augmentation. FV is compressible, spontaneous, phasic, FV is compressible, spontaneous, phasic, competent and demonstrates normal competent and demonstrates normal augmentation. augmentation. POP V is compressible, spontaneous, phasic, POP V is compressible, spontaneous, phasic, competent and demonstrates normal competent and demonstrates normal augmentation. augmentation. T/P Trunk is compressible. T/P Trunk is compressible. PTV is compressible. PTV is compressible. RT PerV is compressible. LT PerV is compressible. Procedure This is a venous duplex using B-mode, color flow and spectral Doppler. Exam performed portable in patient room. A preliminary report was called and/or faxed to Judith GONZALEZ. VL/Venous Duplex US - Royal Extrem Interpretation Summary Deep veins of the bilateral lower extremities are patent and compressible segme ntally. There is no evidence of bilateral lower extremity deep vein thrombosis. The bilateral great saphenous veins appear patent and compressible segmentally. Ordering Physician: Ashley Yi Referring Physician: Josiah Smith Performed By: Kim Torres RDCS, RVT
[2023-01-18] MEDS: Furosemide 40 MG/4 ML Vial IV (18:03)
[2023-01-18] MEDS: Atorvastatin Calcium 40 MG Tablet PO (21:31)
--- NOTE | 2023-01-18 23:35 | CPS ---
Pt refused BiPAP
[2023-01-19] VITALS (9 sets, daily range): BP systolic 145–169; BP diastolic 44–89; PULSE 70–90; RESP 14–19; TEMP 36.4–36.9; O2SAT 93–100; BMI 32.2
[2023-01-19 03:36] LABS: Bedside Glucose 227 mg/dL (74-106)
[2023-01-19 06:13] LABS: Absolute Lymphocyte Count 0.93 X10^3/uL (0.83-4.51); Basophil# 0.05 X10^3/uL; Eosinophil# 0.71 X10^3/uL; Eosinophils% 13.9 % (0-5); Hematocrit 26.6 % (37-47); Hemoglobin 7.7 g/dL (12.0-15.0); Lymphocyte # 0.93 X10^3/ul (0.83-4.51); Lymphocyte % 18.2 % (19-41); Mean Corp Hgb Conc 28.9 g/dL (32-36); Mean Corpuscular Hgb 27.4 pg (27.0-32.0); Mean Corpuscular Volume 94.7 fL (81-99); Mean Platelet Vol. 11.8 fl (6.2-12.0); Monocyte# 0.47 X10^3/uL; Monocyte% 9.2 % (0-10); NRBC Flagged by Analyzer 0 % (0-5); Neutrophil # 2.95 X10^3/uL (2.7-7.7); Neutrophil % 57.5 % (47-70); POSITIVE COUNT YES; Platelet Count 80 K/mm3 (150-450); RBC Distribution Width CV 16.5 % (11.6-14.6); RBC Distribution Width SD 57.5 fl (35.1-43.9); Red Blood Count 2.81 M/mm3 (4.2-5.4); White Blood Count 5.1 K/mm3 (4.4-11.0)
[2023-01-19 06:16] LABS: Differential Indicated SCAN CRITERIA MET
[2023-01-19] MEDS: Lactulose 20 GM/30 ML UDC PO ×6 (06:31→22:19)
[2023-01-19] MEDS: Insulin Lispro 100 UNIT/ML INSULN.PEN SC ×4 (06:32→22:13)
[2023-01-19 06:37] LABS: Anion Gap 3 (5-15); BUN 34 mg/dL (7-18); BUN/Creat Ratio 16.6 RATIO (10-20); Calcium,Total 8.4 mg/dL (8.5-10.1); Chloride 107 mmol/L (98-107); Creatinine, Serum 2.05 mg/dL (0.55-1.02); EST Glomerular Filtration Rate 25 mL/min (>60); Est Glom Filt Rate - Afr Amer 30 mL/min (>60); Estimated Creatinine Clearance 17.29 ml/min; Glucose 198 mg/dL (74-106); Potassium 4.2 mmol/L (3.5-5.1); Sodium Level 140 mmol/L (136-145)
[2023-01-19 06:51] LABS: Bedside Glucose 184 mg/dL (74-106)
[2023-01-19 07:29] LABS: Anisocytosis 1+; Platelet Estimate MOD DEC (ADEQ)
[2023-01-19] MEDS: Ipratropium/Albuterol Sulfate 3 ML AMPUL.NEB INHALATION ×3 (07:30→20:32)
[2023-01-19] MEDS: Spironolactone 25 MG Tablet PO (09:24)
[2023-01-19] MEDS: Arthritis Pain Compound 60 CLICK TUBE TOPICAL ×2 (09:24→22:13)
[2023-01-19] MEDS: Iron Polysaccharide Complex 150 MG CAPSULE PO (09:25)
[2023-01-19] MEDS: Pantoprazole Sodium 40 MG Tablet PO (09:27)
[2023-01-19] MEDS: rifAXIMin 550 MG Tablet PO ×2 (09:27→22:19)
[2023-01-19] MEDS: metroNIDAZOLE 500 MG Tablet PO ×2 (09:27→22:19)
[2023-01-19] MEDS: Azithromycin 250 MG Tablet 1000 MG PO (09:27)
[2023-01-19] MEDS: Furosemide 40 MG/4 ML Vial IV (09:31)
[2023-01-19] MEDS: Carvedilol 25 MG Tablet PO ×2 (09:31→22:19)
[2023-01-19] MEDS: 0.9% Saline Lock 10 ML Syringe IV ×2 (09:31→22:16)
--- NOTE | 2023-01-19 10:34 | PN.HOSP_ITS ---
Reason for Visit Reason for Visit: Diagnoses Hyperkalemia (01/12/23) Heart failure, unspecified (01/12/23) Unspecified cirrhosis of liver (01/12/23) Hepatic encephalopathy (01/12/23) Chronic kidney disease, unspecified (01/12/23) Subjective Subjective Patient is a 72-year-old lady with history of cirrhosis of the liver status post TIPS procedure admitted with shortness of breath. An assessment of acute hypoxia secondary to combination of COPD and acute on chronic congestive heart failure with preserved ejection fraction made admitted to monitored bed for further management Objective Data Objective Data Vital Signs: Vital Signs Temp Pulse Resp BP Pulse Ox O2 Del Method O2 Flow Rate 98.3 F 78 14 150/44 H 98 Nasal Cannula 2 01/19/23 09:30 01/19/23 09:30 01/19/23 09:30 01/19/23 09:30 01/19/23 09:30 01/19/23 09:30 01/19/23 09:30 FiO2 28 01/17/23 03:30 Oxygen Flow Rate (L/min) 2 Oxygen Delivery Method Nasal Cannula Weight: 74.9 kg Body Mass Index (BMI) 32.2 Intake & Output: Intake and Output for Last 24 Hours 01/17/23 01/18/23 01/19/23 23:59 23:59 23:59 Intake Total 1280 / 1280 960 / 960 Balance 1280 / 1280 960 / 960 Lab / Micro Data Result Diagrams: 01/19/23 05:36 01/19/23 05:36 Labs: Laboratory Results - last 24 hr 01/18/23 10:50: POC Glucose 179 H 01/18/23 15:46: POC Glucose 265 H 01/18/23 21:38: POC Glucose 227 H 01/19/23 05:36: WBC 5.1, RBC 2.81 L, Hgb 7.7 L, Hct 26.6 L, MCV 94.7, MCH 27.4, MCHC 28.9 L, RDW Std Deviation 57.5 H, RDW Coeff of [place] 16.5 H, Plt Count 80 L, MPV 11.8, Immature Gran % (Auto) 0.200, Neut % (Auto) 57.5, Lymph % (Auto) 18.2 L, [place] % (Auto) 9.2, Eos % (Auto) 13.9 H, Baso % (Auto) 1.0, Absolute Neuts (auto) 3.0, Absolute Lymphs (auto) 0.93, Nucleated RBC % 0, Platelet Estimate MOD DEC, Anisocytosis 1+ 01/19/23 05:36: Sodium 140, Potassium 4.2, Chloride 107, Carbon Dioxide 30.0, Anion Gap 3 L, BUN 34 H, Creatinine 2.05 H, Estim Creat Clear Calc 17.29, Est GFR (MDRD) Af Amer 30 L, Est GFR (MDRD) Non-Af 25 L, BUN/Creatinine Ratio 16.6, Glucose 198 H, Calcium 8.4 L 01/19/23 06:28: POC Glucose 184 H Micro: Microbiology 01/12/23 07:20 Blood Culture (Wb) - Anticubital Left Blood Culture - Final No growth in 5 days. 01/12/23 07:25 Blood Culture (Wb) - Arm Left Blood Culture - Final No growth in 5 days. 01/12/23 10:50 Mucosa - Nose Respiratory Panel (PCR) - Final 01/12/23 06:19 Nasal Secretion SARS-CoV-2 & FLU Antigen (Rapid) - Final Physical Exam Narrative GENERAL: Cooperative HEENT: Atraumatic; normocephalic EYES; Anicteric, Normal Conjunctiva NECK; supple, normal thyroid, RESPIRATORY: Diminished to auscultation CARDIOVASCULAR:? Regular S1 S2, GI:? soft, normoactive bowel sounds, : No Renal angle tenderness; EXTREMITIES:? edema, no clubbing, MUSCULOSKELETAL:? no muscle wasting NEURO:? Awake;? no lateralizing signs. SKIN:? No Rash PSYCH; Flat? affect Assessment & Plan Assessment/Plan (1) Acute exacerbation of CHF (congestive heart failure): PLAN: Plan Patient is a 72-year-old lady with history of cirrhosis of the liver status post TIPS procedure admitted with shortness of breath. An assessment of acute hypoxia secondary to combination of COPD and acute on chronic congestive heart failure with preserved ejection fraction made admitted to monitored bed for further management . Acute hypoxia ? Secondary to combination of COPD as well as acute on chronic congestive heart failure with preserved ejection fraction admitted to monitored bed for treatment of the underlying condition. Patient placed on supplemental oxygen titrated to keep saturation greater than 90 2. Acute on chronic congestive heart failure with preserved ejection fraction ? Echo obtained on 01/01/2023 demonstrated EF of 70%. Patient placed on diur etics, strict input and output, fluid restriction Daily weight as well as supplemental oxygen 3. Acute metabolic encephalopathy ? Secondary to hypoxia patient level of sensorium improving compared to admission 4. Hyperkalemia ? Present on admission resolved with treatment 5. Acute hypertensive urgency ? Present on admission ? Resolved 6. Acute kidney injury ? Superimposed on chronic kidney disease stage IIIb ? Multifactorial including patient diuretics monitoring with daily BMPs 7. Diabetes mellitus type II -patient's oral hypoglycemics held. Placed on long acting insulin, Accu-Cheks a.c. and at bedtime and covered with sliding scale insulin 8. Right eye conjunctivitis ? Thought to be bacterial patient treated topically 9. Cirrhosis of the liver ? Secondary to nonalcoholic fatty liver disease status post TIPS procedure patient is on rifaximin as well as lactulose continued 10. Anemia - Secondary to chronic disorder monitoring H&H and transfuse if patient becomes symptomatic or hemoglobin falls below 7 Patient undergone EGD on 11/28/2022 was found gastritis as well as an oozing gastric ulcer with a visible vessel which was treated with a heater probe 11.? GERD ? Per history 12. Dyslipidemia -Patient is on statin therapy, continued at home dose 13.? COPD Aerosol treatments as needed 14.? 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 Resolved.? Patient was apparently managed at [facility] by vascular surgery 15.? DVT prophylaxis ? Bilateral SCDs only avoided the use of chemoprophylaxis in view of patient low platelet counts Time spent in the patient's overall evaluation,decision-making process, review of diagnostic data, adjustment of management, discussion with other providers, nursing nursing and ancillary staff involved in patient's care documentation, 40 minutes Charges/Coding Visit Charges Inpatient E&M: 18979 Subs Hosp L2
[2023-01-19 12:05] LABS: Bedside Glucose 274 mg/dL (74-106)
--- NOTE | 2023-01-19 13:42 | NURSING ---
report called to MS3 RN
--- NOTE | 2023-01-19 14:24 | CASEMGMT ---
Addendum entered by Carmela Samaniego 01/19/23 14:36: SW called [facility] and [facility] back to let them know pt is not discharging today. VITOR Graf Original Note: Social Work SW let [facility] and [facility] know pt is being discharged today. VITOR Graf
[2023-01-19 17:05] LABS: Bedside Glucose 210 mg/dL (74-106)
[2023-01-19] MEDS: Atorvastatin Calcium 40 MG Tablet PO (22:19)
[2023-01-19 23:35] LABS: Bedside Glucose 357 mg/dL (74-106)
[2023-01-20] MEDS: Lactulose 20 GM/30 ML UDC PO ×5 (01:03→12:50)
--- NOTE | 2023-01-20 01:06 | NURSING ---
Pt continues to refuse to wear Bipap. Attempted to provide education.
--- NOTE | 2023-01-20 03:45 | CPS ---
Pt refused bipap this evening. RN aware.
[2023-01-20 04:01] VITALS: BMI 32.8
[2023-01-20 04:12] VITALS: BP 141/41; PULSE 76; RESP 18; TEMP 36.9; O2SAT 98
[2023-01-20 06:03] LABS: Basophil# 0.06 X10^3/uL; Basophil% 1.1 % (0-1); Eosinophil# 0.75 X10^3/uL; Eosinophils% 13.7 % (0-5); Hematocrit 27.2 % (37-47); Hemoglobin 7.9 g/dL (12.0-15.0); Lymphocyte % 16.5 % (19-41); Mean Corpuscular Hgb 27.3 pg (27.0-32.0); Mean Corpuscular Volume 94.1 fL (81-99); Monocyte# 0.73 X10^3/uL; Monocyte% 13.4 % (0-10); NRBC Flagged by Analyzer 0 % (0-5); Neutrophil # 3.01 X10^3/uL (2.7-7.7); Neutrophil % 55.1 % (47-70); POSITIVE COUNT YES; Platelet Count 84 K/mm3 (150-450); RBC Distribution Width CV 16.5 % (11.6-14.6); RBC Distribution Width SD 57.4 fl (35.1-43.9); Red Blood Count 2.89 M/mm3 (4.2-5.4); White Blood Count 5.5 K/mm3 (4.4-11.0)
[2023-01-20] MEDS: Insulin Lispro 100 UNIT/ML INSULN.PEN SC ×2 (06:35→12:13)
[2023-01-20 06:38] LABS: Anion Gap 3 (5-15); BUN 32 mg/dL (7-18); BUN/Creat Ratio 15.1 RATIO (10-20); Calcium,Total 8.3 mg/dL (8.5-10.1); Chloride 107 mmol/L (98-107); Creatinine, Serum 2.12 mg/dL (0.55-1.02); EST Glomerular Filtration Rate 24 mL/min (>60); Est Glom Filt Rate - Afr Amer 29 mL/min (>60); Estimated Creatinine Clearance 16.72 ml/min; Glucose 263 mg/dL (74-106); Sodium Level 141 mmol/L (136-145)
--- NOTE | 2023-01-20 07:00 | PN_ITS ---
Subjective Subjective Patient's ammonia level has come down to 94. Her baseline is around 65-75. She is more coherent. Objective Data Objective Data Vital Signs: Vital Signs Temp Pulse Resp BP Pulse Ox O2 Del Method O2 Flow Rate 97.7 F L 83 18 151/48 H 98 Nasal Cannula 2 01/20/23 09:57 01/20/23 09:57 01/20/23 09:57 01/20/23 09:57 01/20/23 09:57 01/20/23 10:04 01/20/23 10:04 FiO2 28 01/17/23 03:30 Oxygen Flow Rate (L/min) 2 Oxygen Delivery Method Nasal Cannula Weight: 168 lb 6.931 oz Body Mass Index (BMI) 32.8 Intake & Output: Intake and Output for Last 24 Hours 01/18/23 01/19/23 01/20/23 23:59 23:59 23:59 Intake Total 960 / 960 300 / 300 540 / 540 Output Total 800 / 800 Balance 960 / 960 -500 / -500 540 / 540 Lab / Micro Data Result Diagrams: 01/20/23 05:50 01/20/23 05:50 Labs: Laboratory Results - last 24 hr 01/19/23 16:21: POC Glucose 210 H 01/19/23 22:06: POC Glucose 357 H 01/20/23 05:50: WBC 5.5, RBC 2.89 L, Hgb 7.9 L, Hct 27.2 L, MCV 94.1, MCH 27.3, MCHC 29.0 L, RDW Std Deviation 57.4 H, RDW Coeff of [place] 16.5 H, Plt Count 84 L, MPV 11.0, Immature Gran % (Auto) 0.200, Neut % (Auto) 55.1, Lymph % (Auto) 16.5 L, [place] % (Auto) 13.4 H, Eos % (Auto) 13.7 H, Baso % (Auto) 1.1 H, Absolute Neuts (auto) 3.0, Absolute Lymphs (auto) 0.90, Nucleated RBC % 0 01/20/23 05:50: Sodium 141, Potassium 4.0, Chloride 107, Carbon Dioxide 31.0, Anion Gap 3 L, BUN 32 H, Creatinine 2.12 H, Estim Creat Clear Calc 16.72, Est GFR (MDRD) Af Amer 29 L, Est GFR (MDRD) Non-Af 24 L, BUN/Creatinine Ratio 15.1, Glucose 263 H, Calcium 8.3 L 01/20/23 06:34: POC Glucose 225 H 01/20/23 11:43: POC Glucose 268 H 01/20/23 12:00: Ammonia 66.0 H Micro: Microbiology 01/12/23 07:20 Blood Culture (Wb) - Anticubital Left Blood Culture - Final No growth in 5 days. 01/12/23 07:25 Blood Culture (Wb) - Arm Left Blood Culture - Final No growth in 5 days. 01/12/23 10:50 Mucosa - Nose Respiratory Panel (PCR) - Final 01/12/23 06:19 Nasal Secretion SARS-CoV-2 & FLU Antigen (Rapid) - Final Radiography Diagnostic Testing: Radiology Impression Venous Doppler Study 01/18/23 16:36 Interpretation Summary Deep veins of the bilateral lower extremities are patent and compressible segmentally. There is no evidence of bilateral lower extremity deep vein thrombosis. The bilateral great saphenous veins appear patent and compressible segmentally. Ordering Physician: Ashley Yi Referring Physician: Josiah Smith Performed By: Kim Torres, ISATU, RVT Physical Exam Narrative GENERAL: Cooperative HEENT: Atraumatic; normocephalic EYES; Anicteric, Normal Conjunctiva NECK; supple, normal thyroid, RESPIRATORY: Diminished to auscultation CARDIOVASCULAR:? Regular S1 S2, GI:? soft, normoactive bowel sounds, : No Renal angle tenderness; EXTREMITIES:? edema, no clubbing, MUSCULOSKELETAL:? no muscle wasting NEURO:? Awake;? no lateralizing signs. SKIN:? No Rash PSYCH; Flat? affect Assessment & Plan Assessment/Plan (1) Cirrhosis: PLAN: Núñez cirrhosis not on transplant list.? Her current MELD is 14 and she is a child Ortiz class C due to renal failure and hepatic encephalopathy.? She is status post TIPS for refractory and recalcitrant ascites with acute kidney injury likely secondary to diuretics and diarrhea causing volume loss.? Patient is noncompliant with medicines and is not on Xifaxan as an outpatient.? Agree with lactulose 20 cc every 4 hours. She has a severe metabolic acidosis and possibly respiratory acidosis that is possibly secondary to GI bicarbonate loss, renal failure and COPD .? Her sodium bicarbonate is improving on a bicarb drip.? Critically ill patients with cirrhosis have a high mortality rate and poor prognosis because of the high prevalence of metabolic acidosis.? MELD-NA performs well on the short-term mortality assessment in critically ill patients with cirrhosis and metabolic acidosis.? Her MELD sodium is lower because she has a TIPS procedure.? It is currently calculated out at a 16.? She is still a child Ortiz class C.? (2) Hepatic encephalopathy: PLAN: Her ammonia is down to 94 today. She does not need phenyl benzoate. She does respond very well to lactulose neomycin azithromycin, Flagyl and Xifaxan. Charges/Coding Visit Charges Inpatient E&M: 23439 Subs Hosp L3
[2023-01-20 07:11] LABS: Bedside Glucose 225 mg/dL (74-106)
[2023-01-20 07:25] VITALS: PULSE 72; RESP 16; O2SAT 96
[2023-01-20] MEDS: Ipratropium/Albuterol Sulfate 3 ML AMPUL.NEB INHALATION ×2 (07:25→13:29)
--- NOTE | 2023-01-20 07:45 | PN.HOSP_ITS ---
Reason for Visit Reason for Visit: Diagnoses Hyperkalemia (01/12/23) Heart failure, unspecified (01/12/23) Unspecified cirrhosis of liver (01/12/23) Hepatic encephalopathy (01/12/23) Chronic kidney disease, unspecified (01/12/23) Subjective Subjective Patient discharged the day prior was delayed per request from the . Decision was made to discharge patient after discussing her condition with her . I did emphasize on the need to be compliant with her medication to prevent from coming back to the hospital more often than she has been in the past Objective Data Objective Data Vital Signs: Vital Signs Temp Pulse Resp BP Pulse Ox O2 Del Method O2 Flow Rate 98.4 F 76 18 141/41 H 98 Nasal Cannula 2 01/20/23 04:12 01/20/23 04:12 01/20/23 04:12 01/20/23 04:12 01/20/23 04:12 01/20/23 04:14 01/20/23 04:14 FiO2 28 01/17/23 03:30 Oxygen Flow Rate (L/min) 2 Oxygen Delivery Method Nasal Cannula Weight: 76.4 kg Body Mass Index (BMI) 32.8 Intake & Output: Intake and Output for Last 24 Hours 01/18/23 01/19/23 01/20/23 23:59 23:59 23:59 Intake Total 960 / 960 300 / 300 300 / 300 Output Total 800 / 800 Balance 960 / 960 -500 / -500 300 / 300 Lab / Micro Data Result Diagrams: 01/20/23 05:50 01/20/23 05:50 Labs: Laboratory Results - last 24 hr 01/19/23 11:26: POC Glucose 274 H 01/19/23 12:24: Ammonia 94.0 H 01/19/23 16:21: POC Glucose 210 H 01/19/23 22:06: POC Glucose 357 H 01/20/23 05:50: WBC 5.5, RBC 2.89 L, Hgb 7.9 L, Hct 27.2 L, MCV 94.1, MCH 27.3, MCHC 29.0 L, RDW Std Deviation 57.4 H, RDW Coeff of Jordan 16.5 H, Plt Count 84 L, MPV 11.0, Immature Gran % (Auto) 0.200, Neut % (Auto) 55.1, Lymph % (Auto) 16.5 L, Baxter % (Auto) 13.4 H, Eos % (Auto) 13.7 H, Baso % (Auto) 1.1 H, Absolute Neuts (auto) 3.0, Absolute Lymphs (auto) 0.90, Nucleated RBC % 0 01/20/23 05:50: Sodium 141, Potassium 4.0, Chloride 107, Carbon Dioxide 31.0, Anion Gap 3 L, BUN 32 H, Creatinine 2.12 H, Estim Creat Clear Calc 16.72, Est GFR (MDRD) Af Amer 29 L, Est GFR (MDRD) Non-Af 24 L, BUN/Creatinine Ratio 15.1, Glucose 263 H, Calcium 8.3 L 01/20/23 06:34: POC Glucose 225 H Micro: Microbiology 01/12/23 07:20 Blood Culture (Wb) - Anticubital Left Blood Culture - Final No growth in 5 days. 01/12/23 07:25 Blood Culture (Wb) - Arm Left Blood Culture - Final No growth in 5 days. 01/12/23 10:50 Mucosa - Nose Respiratory Panel (PCR) - Final 01/12/23 06:19 Nasal Secretion SARS-CoV-2 & FLU Antigen (Rapid) - Final Physical Exam Narrative GENERAL: Cooperative HEENT: Atraumatic; normocephalic EYES; Anicteric, Normal Conjunctiva NECK; supple, normal thyroid, RESPIRATORY: Diminished to auscultation CARDIOVASCULAR:? Regular S1 S2, GI:? soft, normoactive bowel sounds, : No Renal angle tenderness; EXTREMITIES:? edema, no clubbing, MUSCULOSKELETAL:? no muscle wasting NEURO:? Awake;? no lateralizing signs. SKIN:? No Rash PSYCH; Flat? affect Assessment & Plan Assessment/Plan (1) Acute exacerbation of CHF (congestive heart failure): PLAN: Plan Patient is a 72-year-old lady with history of cirrhosis of the liver status post TIPS procedure admitted with shortness of breath. An assessment of acute hypoxia secondary to combination of COPD and acute on chronic congestive heart failure with preserved ejection fraction made admitted to monitored bed for further management 1. Acute hypoxia ? Secondary to combination of COPD as well as acute on chronic congestive heart failure with preserved ejection fraction admitted to monitored bed for treatment of the underlying condition. Patient placed on supplemental oxygen titrated to keep saturation greater than 90 2. Acute on chronic congestive heart failure with preserved ejection fraction ? Echo obtained on 01/01/2023 demonstrated EF of 70%. Patient placed on diuretics, strict input and output, fluid restriction Daily weight as well as supplemental oxygen 3. Acute metabolic encephalopathy ? Secondary to hypoxia patient level of sensorium improving compared to admission 4. Hyperkalemia ? Present on admission resolved with treatment 5. Acute hypertensive urgency ? Present on admission ? Resolved 6. Acute kidney injury ? Superimposed on chronic kidney disease stage IIIb ? Multifactorial including patient diuretics monitoring with daily BMPs 7. Diabetes mellitus type II -patient's oral hypoglycemics held. Placed on long acting insulin, Accu-Cheks a.c. and at bedtime and covered with sliding scale insulin 8. Right eye conjunctivitis ? Thought to be bacterial patient treated topically 9. Cirrhosis of the liver ? Secondary to nonalcoholic fatty liver disease status post TIPS procedure patient is on rifaximin as well as lactulose continued 10. Anemia - Secondary to chronic disorder monitoring H&H and transfuse if patient becomes symptomatic or hemoglobin falls below 7 Patient undergone EGD on 11/28/2022 was found gastritis as well as an oozing gastric ulcer with a visible vessel which was treated with a heater probe 11.? GERD ? Per history 12. Dyslipidemia -Patient is on statin therapy, continued at home dose 13.? COPD Aerosol treatments as needed 14.? 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 Resolved.? Patient was apparently managed at [facility] by vascular surgery 15.? DVT prophylaxis ? Bilateral SCDs only avoided the use of chemoprophylaxis in view of patient low platelet counts Time spent in the patient's overall evaluation,decision-making process, review of diagnostic data, adjustment of management, discussion with other providers, nursing nursing and ancillary staff involved in patient's care documentation, 40 minutes Charges/Coding Visit Charges Inpatient E&M: 11733 Subs Hosp L2
[2023-01-20 09:10] VITALS: O2SAT 98
[2023-01-20 09:57] VITALS: BP 151/48; PULSE 83; RESP 18; TEMP 36.5; O2SAT 98
[2023-01-20] MEDS: 0.9% Saline Lock 10 ML Syringe IV (10:07)
[2023-01-20] MEDS: Spironolactone 25 MG Tablet PO (10:07)
[2023-01-20] MEDS: Furosemide 40 MG/4 ML Vial IV (10:07)
[2023-01-20] MEDS: metroNIDAZOLE 500 MG Tablet PO (10:08)
[2023-01-20] MEDS: rifAXIMin 550 MG Tablet PO (10:08)
[2023-01-20] MEDS: Carvedilol 25 MG Tablet PO (10:08)
[2023-01-20] MEDS: Azithromycin 250 MG Tablet 1000 MG PO (10:08)
[2023-01-20] MEDS: Iron Polysaccharide Complex 150 MG CAPSULE PO (10:08)
[2023-01-20] MEDS: Arthritis Pain Compound 60 CLICK TUBE TOPICAL (10:08)
[2023-01-20] MEDS: Pantoprazole Sodium 40 MG Tablet PO (10:08)
--- NOTE | 2023-01-20 11:15 | PCM.DC.SUM ---
Providers Date of Admission: 01/12/23 Date of Discharge: 01/19/23 Primary Care Physician: Dr. Josiah Smith MD Consultations 01/16/23 09:05 Consult: Gastroenterology Routine Consulting Provider: [facility] Reason for Consult: Ammonia cont to worsens despite escalating lactulose EMERGENT Consult: No MD Notified: Yes Date Notified: 01/16/23 Time Notified: 09:05 Method of Notification: Text Reason For Visit: HYPOXIA Diagnosis Discharge Diagnosis (1) Acute exacerbation of CHF (congestive heart failure): Status: Chronic Code(s): I50.9 - Heart failure, unspecified Plan Patient is a 72-year-old lady with history of cirrhosis of the liver status post TIPS procedure admitted with shortness of breath. An assessment of acute hypoxia secondary to combination of COPD and acute on chronic congestive heart failure with preserved ejection fraction made admitted to monitored bed for further management 1. Acute hypoxia ? Secondary to combination of COPD as well as acute on chronic congestive heart failure with preserved ejection fraction admitted to monitored bed for treatment of the underlying condition. Patient placed on supplemental oxygen titrated to keep saturation greater than 90 2. Acute on chronic congestive heart failure with preserved ejection fraction ? Echo obtained on 01/01/2023 demonstrated EF of 70%. Patient placed on diuretics, strict input and output, fluid restriction Daily weight as well as supplemental oxygen 3. Acute metabolic encephalopathy ? Secondary to hypoxia patient level of sensorium improving compared to admission 4. Hyperkalemia ? Present on admission resolved with treatment 5. Acute hypertensive urgency ? Present on admission ? Resolved 6. Acute kidney injury ? Superimposed on chronic kidney disease stage IIIb ? Multifactorial including patient diuretics monitoring with daily BMPs 7. Diabetes mellitus type II -patient's oral hypoglycemics held. Placed on long acting insulin, Accu-Cheks a.c. and at bedtime and covered with sliding scale insulin 8. Right eye conjunctivitis ? Thought to be bacterial patient treated topically 9. Cirrhosis of the liver ? Secondary to nonalcoholic fatty liver disease status post TIPS procedure patient is on rifaximin as well as lactulose continued 10. Anemia - Secondary to chronic disorder monitoring H&H and transfuse if patient becomes symptomatic or hemoglobin falls below 7 Patient undergone EGD on 11/28/2022 was found gastritis as well as an oozing gastric ulcer with a visible vessel which was treated with a heater probe 11.? GERD ? Per history 12. Dyslipidemia -Patient is on statin therapy, continued at home dose 13.? COPD Aerosol treatments as needed 14.? 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 Resolved.? Patient was apparently managed at [facility] by vascular surgery 15.? DVT prophylaxis ? Bilateral SCDs only avoided the use of chemoprophylaxis in view of patient low platelet counts Time spent in the patient's overall evaluation,decision-making process, review of diagnostic data, adjustment of management, discussion with other providers, nursing nursing and ancillary staff involved in patient's care documentation, 40 minutes Medications at Discharge Home Medications atorvastatin 40 mg tablet (Lipitor) 40 mg PO QHS cholesterol 02/09/22 labetalol 100 mg tablet 50 mg PO BID blood pressure 05/26/22 lactulose 10 gram/15 mL oral solution 30 ml PO 4X/DAY liver 10/16/22 ondansetron 4 mg disintegrating tablet 4 mg PO Q6H PRN PRN nausea/vomiting 10/16/22 spironolactone 25 mg tablet 25 mg PO DAILY liver #30 tabs 10/19/22 albuterol sulfate 90 mcg/actuation aerosol inhaler 2 puff inhalation Q4H PRN SOB 11/20/22 torsemide 20 mg tablet 20 mg PO BID WATER PILL 11/20/22 latanoprost 0.005 % eye drops 1 drp LEFT EYE QPM Check with primary doctor 12/31/22 omeprazole 20 mg capsule,delayed release 20 mg PO DAILY Check with primary doctor 12/31/22 rifaximin 550 mg tablet (Xifaxan) 550 mg PO BID Check with primary doctor 12/31/22 sodium bicarbonate 650 mg tablet 1,300 mg PO TID Check with primary doctor 12/31/22 furosemide 20 mg tablet 20 mg PO BID chf 01/12/23 labetalol 100 mg tablet 50 mg PO BID 01/12/23 pantoprazole 40 mg tablet,delayed release 40 mg PO DAILY 01/12/23 polysaccharide iron complex 150 mg iron capsule (iFerex 150) 150 mg PO DAILY 01/12/23 simethicone 80 mg chewable tablet 80 mg PO QHS 01/12/23 azithromycin 500 mg tablet 1,000 mg PO DAILY 7 days #14 tabs 01/19/23 glimepiride 2 mg tablet 2 mg PO DAILY #60 tabs 01/19/23 metronidazole 500 mg tablet 500 mg PO BID 7 days #14 tabs 01/19/23 neomycin 500 mg tablet 500 mg PO BID 7 days #14 tabs 01/19/23 Hospital Course Summary of Care Provided Minutes Spent on Discharge: 40 Physical Exam Narrative GENERAL: Cooperative HEENT: Atraumatic; normocephalic EYES; Anicteric, Normal Conjunctiva NECK; supple, normal thyroid, RESPIRATORY: Diminished to auscultation CARDIOVASCULAR:? Regular S1 S2, GI:? soft, normoactive bowel sounds, : No Renal angle tenderness; EXTREMITIES:? edema, no clubbing, MUSCULOSKELETAL:? no muscle wasting NEURO:? Awake;? no lateralizing signs. SKIN:? No Rash PSYCH; Flat? affect Weight / BMI Weight Weight: 74.9 kg Body Mass Index (BMI) 32.2 ABG / Lab / Microbiology Data Result Diagrams: 01/19/23 05:36 01/19/23 05:36 Laboratory: Laboratory Results - last 24 hr 01/18/23 15:46: POC Glucose 265 H 01/18/23 21:38: POC Glucose 227 H 01/19/23 05:36: WBC 5.1, RBC 2.81 L, Hgb 7.7 L, Hct 26.6 L, MCV 94.7, MCH 27.4, MCHC 28.9 L, RDW Std Deviation 57.5 H, RDW Coeff of Jordan 16.5 H, Plt Count 80 L, MPV 11.8, Immature Gran % (Auto) 0.200, Neut % (Auto) 57.5, Lymph % (Auto) 18.2 L, [place] % (Auto) 9.2, Eos % (Auto) 13.9 H, Baso % (Auto) 1.0, Absolute Neuts (auto) 3.0, Absolute Lymphs (auto) 0.93, Nucleated RBC % 0, Platelet Estimate MOD DEC, Anisocytosis 1+ 01/19/23 05:36: Sodium 140, Potassium 4.2, Chloride 107, Carbon Dioxide 30.0, Anion Gap 3 L, BUN 34 H, Creatinine 2.05 H, Estim Creat Clear Calc 17.29, Est GFR (MDRD) Af Amer 30 L, Est GFR (MDRD) Non-Af 25 L, BUN/Creatinine Ratio 16.6, Glucose 198 H, Calcium 8.4 L 01/19/23 06:28: POC Glucose 184 H 01/19/23 11:26: POC Glucose 274 H 01/19/23 12:24: Ammonia 94.0 H Microbiology: Microbiology 01/12/23 07:20 Blood Culture (Wb) - Anticubital Left Blood Culture - Final No growth in 5 days. 01/12/23 07:25 Blood Culture (Wb) - Arm Left Blood Culture - Final No growth in 5 days. 01/12/23 10:50 Mucosa - Nose Respiratory Panel (PCR) - Final 01/12/23 06:19 Nasal Secretion SARS-CoV-2 & FLU Antigen (Rapid) - Final D/C Instructions Discharge Diet: 1800 Calorie Control Diet Discharge Activity: Return to Normal Activity Call your doctor if you observe: Fever of 101 or Higher, Shortness of breath, Fainting spells and Chest pain Meaningful Use Info Meaningful Use Diagnoses (Choose all that apply): CHF CHF JOSE/ARB ordered at discharge?: Yes Reason JOSE/ARB not ordered?: Hyperkalemia and Worsening renal function Documented LVEF (%): 70 Discharge Plan Admission Admit Date/Time: 01/12/23 08:19 Attending Provider: Lance Davies Primary Care Provider: Josiah Smith Consulting Providers: Ashley Yi Discharge Orders/Prescriptions Prescriptions: New metronidazole 500 mg Tablet 500 mg PO BID 7 Days Qty: 14 0RF neomycin 500 mg Tablet 500 mg PO BID 7 Days Qty: 14 0RF azithromycin 500 mg tablet 1,000 mg PO DAILY 7 Days Qty: 14 0RF glimepiride 2 mg tablet 2 mg PO DAILY Qty: 60 0RF Continued atorvastatin [Lipitor] 40 mg Tablet 40 mg PO QHS labetalol 100 mg tablet 50 mg PO BID ondansetron 4 mg tablet,disintegrating 4 mg PO Q6H PRN PRN (Reason: nausea/vomiting) Label Comments: Take 1 tablet by mouth every 6 hours as needed for nausea/vomiting. lactulose 10 gram/15 mL solution 30 ml PO 4X/DAY Label Comments: Take 30 mL by mouth four times daily. spironolactone 25 mg tablet 25 mg PO DAILY Qty: 30 0RF Label Comments: TAKE 1 TABLET BY MOUTH TWICE DAILY torsemide 20 mg Tablet 20 mg PO BID albuterol sulfate 90 mcg/actuation HFA aerosol inhaler 2 puff INHALATION Q4H PRN (Reason: SOB) Label Comments: INHALE 2 PUFFS DIRECTED EVERY 4 HOURS NEEDED latanoprost 0.005 % Drops 1 drp LEFT EYE QPM omeprazole 20 mg Capsule,Delayed Release(Dr/Ec) 20 mg PO DAILY sodium bicarbonate 650 mg tablet 1,300 mg PO TID Xifaxan 550 mg tablet 550 mg PO BID polysaccharide iron complex [iFerex 150] 150 mg iron Capsule 150 mg PO DAILY pantoprazole 40 mg Tablet,Delayed Release (Dr/Ec) 40 mg PO DAILY furosemide 20 mg Tablet 20 mg PO BID labetalol 100 mg Tablet 50 mg PO BID simethicone 80 mg Tablet,Chewable 80 mg PO QHS Discontinued glipizide 10 mg Tablet 10 mg PO BID potassium chloride [Klor-Con M20] 20 mEq tablet,ER particles/crystals 20 meq PO BIDCM glimepiride 4 mg tablet 8 mg PO BREAKFAST Label Comments: TAKE 2 TABLETS BY MOUTH DAILY WITH BREAKFAST ramipril 5 mg Capsule 5 mg PO QHS Referrals / Follow Up: Josiah Smith MD [Primary Care Provider] - Disposition Disposition (needs filled in before D/C Order can be placed): Home, Self Care Charges/Coding Visit Charges Inpatient E&M: 13889 Disch Hosp >30min
--- NOTE | 2023-01-20 11:53 | CASEMGMT ---
RN CM updated that patient will be discharging home today. RN CM called and updated regarding discharge with resumption of [facility]. voiced understanding and stated sister in law will be picking up patient. RN CM called and updated [facility] regarding discharge for today.
[2023-01-20 12:10] LABS: Bedside Glucose 268 mg/dL (74-106)
[2023-01-20 13:29] VITALS: PULSE 79; RESP 16
[2023-01-20 13:44] VITALS: BP 162/47; PULSE 74; RESP 18; TEMP 36.7; O2SAT 98
== END 2023-01-20 14:04 | disposition home health service (06) | DRG 291 ==
LOC: ED 07:38 → ICU 08:38 → PCU 01-13 22:49
PROVIDERS: Internal Medicine Gastroenterology; Admitting Provider Internal Medicine; Emergency Provider Emergency Medicine; PCP Family Medicine; Visit Provider Internal Medicine
DX: I13.0 Hypertensive heart and chronic kidney disease with heart failure and stage 1 through stage 4 chronic kidney disease, or unspecified chronic kidney disease (principal); G93.41 Metabolic encephalopathy; I50.33 Acute on chronic diastolic (congestive) heart failure; E87.4 Mixed disorder of acid-base balance; J96.11 Chronic respiratory failure with hypoxia; E87.29 Other acidosis; N17.9 Acute kidney failure, unspecified; D63.8 Anemia in other chronic diseases classified elsewhere; K76.82 Hepatic encephalopathy; E11.22 Type 2 diabetes mellitus with diabetic chronic kidney disease; J44.9 Chronic obstructive pulmonary disease, unspecified; N18.32 Chronic kidney disease, stage 3b; K74.60 Unspecified cirrhosis of liver; E87.5 Hyperkalemia; H10.9 Unspecified conjunctivitis; I16.0 Hypertensive urgency; K21.9 Gastro-esophageal reflux disease without esophagitis; E78.5 Hyperlipidemia, unspecified; I34.81 Nonrheumatic mitral (valve) annulus calcification; E66.9 Obesity, unspecified; Z68.32 Body mass index [BMI] 32.0-32.9, adult; Z91.148 Patient's other noncompliance with medication regimen for other reason; Z20.822 Contact with and (suspected) exposure to COVID-19; Z99.81 Dependence on supplemental oxygen; Z79.84 Long term (current) use of oral hypoglycemic drugs; Z79.899 Other long term (current) drug therapy; Z87.891 Personal history of nicotine dependence
CPT/HCPCS: 36415; 36600; 71045; 71250; 80048; 80053; 80076; 82140; 82803; 82962; 83735; 83880; 84132; 84145; 84484; 85025; 85379; 87040; 87428; 87633; 93005; 93970; 94002; 94003; 94640; 94668; 94762; 97110; 97162; 97166; 97530; 97535; 97802; 97803; 99252; 99285; A4216; G0463; J0610; J1940; J2405

== ENCOUNTER 2023-01-23 16:16 | Inpatient (IN) | payer MEDICARE, MEDICAID, SELFPAY ==
[2023-01-23] VITALS (9 sets, daily range): BP systolic 142–186; BP diastolic 42–54; PULSE 75–98; RESP 18–26; TEMP 36.6–38.4; O2SAT 97–100; BMI 33.4; BMI 32.0
--- NOTE | 2023-01-23 16:32 | CT_ITS ---
EXAM: CT ABDOMEN AND PELVIS WITHOUT INTRAVENOUS CONTRAST CLINICAL INDICATION: pain, n/v; hx cirrhosis TECHNIQUE: Helically acquired images were obtained of the abdomen and pelvis without intravenous contrast. This CT exam was performed using one or more of the following dose reduction techniques: automated exposure control, adjustment of the mA and/or kV according to patient size, and/or use of iterative reconstruction technique. This report was created using [employer] report generation technology. COMPARISON: 06/09/2021 FINDINGS: LOWER THORAX: Moderate left pleural effusion with bibasilar atelectasis. Moderate cardiomegaly. ABDOMEN: LIVER: Cirrhotic morphology of the liver. Prior TIPS procedure. GALLBLADDER AND BILE DUCTS: Cholecystectomy. No intra- or extrahepatic biliary ductal dilation. PANCREAS: Unremarkable. No focal cystic mass. SPLEEN: Unremarkable. Normal size without focal cystic or solid mass. ADRENALS: Unremarkable. No nodules. KIDNEYS AND URETERS: Unremarkable. Normal renal size and position. No hydronephrosis. STOMACH AND BOWEL: Unremarkable. No stomach or bowel distention. No focal inflammatory change. PELVIS: APPENDIX: No evidence of acute appendicitis. BLADDER: Unremarkable. REPRODUCTIVE: Unremarkable as visualized. No mass. ABDOMEN and PELVIS: INTRAPERITONEAL SPACE: Unremarkable. No free air. No significant ascites. BONES/JOINTS: Degenerative changes of the spine. No suspicious lytic or blastic abnormality. SOFT TISSUES: Some body wall edema. No discrete abdominal or pelvic wall hernia. VASCULATURE: Moderate atherosclerotic changes of the abdominal aorta, but no aneurysm. LYMPH NODES: Unremarkable. No enlarged lymph nodes. CT/Abdomen/Pelvis without Cont IMPRESSION: 1. No acute abnormalities identified in the abdomen/pelvis. 2. Cirrhotic morphology of the liver with prior TIPS procedure. 3. Some body wall edema and a moderate left pleural effusion, but there is no ascites. Electronically Signed: Dane Crowe MD at 18:31 EDT ,
--- NOTE | 2023-01-23 16:34 | CT_ITS ---
EXAM: CT HEAD WITHOUT INTRAVENOUS CONTRAST CLINICAL INDICATION: altered mental status,CKD, TAA, COLITIS, DB, HEPATIC ENCEPHALOPATHY, GOPI, TIPS,HTN TECHNIQUE: Multiple axial images were obtained of the head without intravenous contrast. This CT exam was performed using one or more of the following dose reduction techniques: automated exposure control, adjustment of the mA and/or kV according to patient size, and/or use of iterative reconstruction technique. This report was created using [employer] report generation technology. COMPARISON: 11/20/2022 FINDINGS: BRAIN AND EXTRA-AXIAL SPACES: Diffuse cerebral volume loss. Periventricular small vessel ischemic changes. No intra- or extra-axial hemorrhage. No intracranial mass or mass effect. Posterior fossa structures are unremarkable. No hydrocephalus. Basal cisterns are patent. BONES/JOINTS: Unremarkable. No discrete lytic or blastic abnormalities. VASCULATURE: Vascular calcifications. SINUSES: Unremarkable as visualized. Clear. MASTOID AIR CELLS: Unremarkable. Clear. ORBITS: Visualized globes, extraocular muscles, optic nerves and retrobulbar fat appear unremarkable. CT/Brain/Head without Contrast IMPRESSION: 1. No acute intracranial abnormalities. 2. Age-related changes. Electronically Signed: Dane Crowe MD at 18:25 EDT ,
--- NOTE | 2023-01-23 16:39 | EDS_ITS ---
HPI History of Present Illness Chief Complaint: Shortness of Breath Informant: patient Narrative Narrative: Patient very confused and not able to provide a good history, she states her left eye has been hurting for a month and believes that is why she is here, but EMS brought her for dyspnea, she agrees that she is dyspneic. The brother who cares for her at home arrived a short time thereafter, states that he noticed increased dyspnea since this morning, gave her an additional dose of diuretic this morning, states her legs are much more swollen than usual, and that she started getting confused within the last couple hours so brought her here. Has history of hepatic encephalopathy, has cirrhosis from unknown etiology according to him, not an alcoholic or history of drinking. Is compliant with her lactulose 4 times daily, however she vomits daily, sometimes more than others, often times after taking the lactulose. She also vomits up her pills at times which concerned him because he is not exactly sure what to do when that happens. she always complains of abdominal discomfort/pain as well to him. 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 Thrombocytopenia Home Medications atorvastatin 40 mg tablet (Lipitor) 40 mg PO QHS cholesterol 02/09/22 [History Last Taken 07/17/22] labetalol 100 mg tablet 50 mg PO BID blood pressure 05/26/22 [History Last Taken 07/17/22] lactulose 10 gram/15 mL oral solution 30 ml PO 4X/DAY liver 10/16/22 [History Last Taken Unknown] ondansetron 4 mg disintegrating tablet 4 mg PO Q6H PRN PRN nausea/vomiting 10/16/22 [History Last Taken Unknown] spironolactone 25 mg tablet 25 mg PO DAILY liver #30 tabs 10/19/22 [Rx Last Taken Unknown] albuterol sulfate 90 mcg/actuation aerosol inhaler 2 puff inhalation Q4H PRN SOB 11/20/22 [History Last Taken Unknown] torsemide 20 mg tablet 20 mg PO BID WATER PILL 11/20/22 [History Last Taken Unknown] latanoprost 0.005 % eye drops 1 drp LEFT EYE QPM eye health 12/31/22 [History Last Taken Unknown] omeprazole 20 mg capsule,delayed release 20 mg PO DAILY reflux 12/31/22 [History Last Taken Unknown] rifaximin 550 mg tablet (Xifaxan) 550 mg PO BID bowels 12/31/22 [History Last Taken Unknown] sodium bicarbonate 650 mg tablet 1,300 mg PO TID supplement 12/31/22 [History Last Taken Unknown] furosemide 20 mg tablet 20 mg PO BID chf 01/12/23 [History Last Taken Unknown] labetalol 100 mg tablet 50 mg PO BID blood pressure 01/12/23 [History Last Taken Unknown] pantoprazole 40 mg tablet,delayed release 40 mg PO DAILY reflux 01/12/23 [History Last Taken Unknown] polysaccharide iron complex 150 mg iron capsule (iFerex 150) 150 mg PO DAILY supplement 01/12/23 [History Last Taken Unknown] simethicone 80 mg chewable tablet 80 mg PO QHS gas 01/12/23 [History Last Taken Unknown] azithromycin 500 mg tablet 1,000 mg PO DAILY 7 days #14 tabs 01/19/23 [Rx Last Taken Unknown] glimepiride 2 mg tablet 2 mg PO DAILY #60 tabs 01/19/23 [Rx Last Taken Unknown] metronidazole 500 mg tablet 500 mg PO BID 7 days #14 tabs 01/19/23 [Rx Last Taken Unknown] neomycin 500 mg tablet 500 mg PO BID 7 days #14 tabs 01/19/23 [Rx Last Taken Unk nown] tizanidine 4 mg tablet 4 mg PO Q8H PRN Muscle Spasm 01/23/23 [History Last Taken Unknown] Allergy/AdvReac Type Severity Reaction Status Date / Time suture Allergy Mild rash/ Verified 01/23/23 16:17 wound dehisence amoxicillin Allergy Unknown Verified 01/23/23 16:17 azithromycin Allergy Shortness Verified 01/23/23 16:17 of breath celecoxib [From Celebrex] Allergy Other Verified 01/23/23 16:17 ciprofloxacin HCl Allergy Shortness Verified 01/23/23 16:17 [From Cipro] of breath cortisone Allergy Swelling Verified 01/23/23 16:17 doxycycline Allergy Shortness Verified 01/23/23 16:17 of breath erythromycin base Allergy Unknown Verified 01/23/23 16:17 fexofenadine [From Ashlee] Allergy Unknown Verified 01/23/23 16:17 ibuprofen Allergy Shortness Verified 01/23/23 16:17 of breath Iodinated Contrast Media Allergy Shortness Verified 01/23/23 16:17 [DYEE] of breath iodine Allergy Shortness Verified 01/23/23 16:17 of breath levofloxacin [From Levaquin] Allergy Shortness Verified 01/23/23 16:17 of breath lorazepam [From Ativan] Allergy Shortness Verified 01/23/23 16:17 of breath nitrofurantoin Allergy Shortness Verified 01/23/23 16:17 macrocrystalline of breath [From Macrobid] Penicillins Allergy Shortness Verified 01/23/23 16:17 of breath rofecoxib [From Vioxx] Allergy Unknown Verified 01/23/23 16:17 Sulfa (Sulfonamide Allergy Shortness Verified 01/23/23 16:17 Antibiotics) of breath sulfamethoxazole Allergy Shortness Verified 01/23/23 16:17 [From Bactrim] of breath trimethoprim [From Bactrim] Allergy Shortness Verified 01/23/23 16:17 of breath amlodipine [From Norvasc] AdvReac Upset Verified 01/23/23 16:17 Stomach MISC BP MED AdvReac Shortness Uncoded 01/23/23 16:17 of breath Family History Mother Heart disease Brother Heart disease Surgical History History of bilateral salpingo-oophorectomy History of endarterectomy History of laparoscopic cholecystectomy History of oral surgery S/P TIPS (transjugular intrahepatic portosystemic shunt) Social History household members: spouse Smoking Status: Former smoker alcohol intake: never substance use type: does not use ROS ROS ED Review of Systems ROS Unobtainable: due to encephalopathy Eyes Eyes: Reports as per HPI and eye pain; Denies blurry vision or change in vision Cardiovascular Cardiovascular: Reports leg edema; Denies chest pain Respiratory/Chest Respiratory/Chest: Reports cough and dyspnea Neurologic Neurologic: Reports as per HPI and confusion; Denies headache(s), paresthesias or weakness EXAM Physical Exam Const Vital Signs: 01/23/23 16:17 01/23/23 16:23 01/23/23 16:24 Temperature 98.5 F 101.2 F H Temperature Source Oral Temporal Pulse Rate 78 80 Respiratory Rate 26 H 24 H Respiratory Effort Short of Breath Respiratory Depth Normal Respiratory Pattern Tachypnea Blood Pressure 170/49 H 170/49 H Blood Pressure Mean 89 89 Pulse Ox 97 99 Oxygen Delivery Method Nasal Cannula Nasal Cannula Nasal Cannula Oxygen Flow Rate (L/min) 3 3 3 01/23/23 17:01 01/23/23 17:19 01/23/23 18:19 Temperature 100.4 F H 99.4 F H Temperature Source Oral Oral Pulse Rate 76 77 Respiratory Rate 24 H 20 H Respiratory Effort Respiratory Depth Respiratory Pattern Blood Pressure 165/54 H 142/49 H Blood Pressure Mean 91 80 Pulse Ox 100 98 98 Oxygen Delivery Method Nasal Cannula Room Air Room Air Oxygen Flow Rate (L/min) 3 1 01/23/23 18:43 Temperature 98.3 F Temperature Source Temporal Pulse Rate 75 Respiratory Rate 21 H Respiratory Effort Respiratory Depth Respiratory Pattern Blood Pressure 157/42 H Blood Pressure Mean 80 Pulse Ox 98 Oxygen Delivery Method Nasal Cannula Oxygen Flow Rate (L/min) 3 Positive well nourished and well developed General Appearance ED: well developed and NAD HEENT Reports moist mucous membranes normocephalic and atraumatic Eyes PERRL and EOMs intact bilaterally Neck full ROM, no lymphadenopathy and supple Resp Resp Narrative: Mild tachypnea. Diminished breath sounds throughout equal bilaterally trachea midline, no distress. Cardio regular rate, regular rhythm and no murmurs GI non-distended GI Narrative: When seen with palpation throughout upper abdomen, but no guarding or rebound tenderness, does not answer when I asked her if I am eliciting pain or not. Soft and otherwise benign abdomen. Auscultation: normoactive bowel sounds Palpation: soft Back/Spine no CVA tenderness General Back: other FROM Extremity General Extremety ED: Yes edema; Negative for pulses abnormal or tenderness General Extremity: edema bilateral lower extremity Details: severe (Symmetric without signs of erythema/tenderness/cellulitis); Negative for pulses abnormal Neuro CN's II-XII intact bilaterally and no sensory deficits noted Neuro Narrative: Moving all 4 extremities equally. Grossly confused. Normal speech otherwise. Sensorium / Orientation: awake and alert Motor Exam: general weakness Skin no rashes or lesions noted and no wounds Sepsis Attestation Sepsis Alert: Yes Date exam was performed: 01/23/23 Time exam was performed: 16:30 Possible Source of Sepsis: Pulmonary, GI tract/intra-abdominal and Genitourinary Sepsis Organ Dysfunction Criteria Present: Creatinine > 2.0 mg/dL, Platelets <100,000 / uL and New/Unexplained change in mental status Fluid Resuscitation Fluid Resuscitation ordered: Fluids not indicated (No evidence of shock) Reason for lesser fluid bolus:: Concern for fluid overload and Renal Failure MDM MDM MDM Narrative Medical decision making narrative: Work-up shows an elevated ammonia level but much lower than it was several days ago. In addition she has similar level of anemia, this is chronic, hemoglobin of 7.8 does not require acute transfusion right now. She has not been cytopenic also similar. Lactate is within normal limits, blood cultures were obtained as part of a septic work-up, her urine does not show acute infection, but her chest x-ray does suggest a left lower lobe infiltrate 2 views of my interpretation, radiology in agreement. She was treated with IV Rocephin given her extensive list of reactions to antibiotics, that not being on the list. She did fine with it. Without specific treatment on reevaluation she states that her breathing is doing much better, the oxygen is going through nasal cannula and she is doing well, stable clinically and hemodynamically. Given the history and symptoms and confusion of the patient I obtained a CT of the abdomen/pelvis in addition to the head, I reviewed those images and I agree with the radiologist's interpretation of both of them. She appears to have a pleural effusion on the left, it is not so large that I think it is causing acute respiratory compromise, and does not necessarily need an emergent thoracentesis. Her tropon in is elevated nonspecifically, with no acute EKG changes. This may be due to hypoxemia or subendocardial ischemia and will need to be trended. She has edema in her body wall and significant edema in her legs, but likely no signs of any pulmonary edema on any of the studies. She has chronic kidney disease that is a little worse than usual but not significantly. My suspicion is that the edema i s due to her hypoalbuminemia and cirrhosis. She was initially treated with IV Zofran and oral lactulose, we additionally added Rocephin and then IV Lasix. I am treating her empirically for possible pneumonia with a parapneumonic effusion, which is also possible, especially given her temperature here of 101.2. Plan is for admission. History & Record Review Additional record(s) reviewed:: Prior outpatient record (echo 01/01/23: EF 70%, limited study) and Prior labs Lab Data Attestation: I reviewed the patient's lab results. Labs: Laboratory Results - last 24 hr 01/23/23 01/23/23 01/23/23 16:20 17:00 17:05 WBC 7.4 RBC 2.83 L Hgb 7.8 L Hct 27.3 L MCV 96.5 MCH 27.6 MCHC 28.6 L RDW Std Deviation 60.0 H RDW Coeff of [place] 17.2 H Plt Count 85 L MPV 11.7 Immature Gran % (Auto) 0.400 Neut % (Auto) 80.7 H Lymph % (Auto) 6.0 L [place] % (Auto) 11.3 H Eos % (Auto) 1.1 Baso % (Auto) 0.5 Absolute Neuts (auto) 6.0 Absolute Lymphs (auto) 0.44 L Nucleated RBC % 0 Differential Comment SCANNED PT INR APTT Sodium Potassium Chloride Carbon Dioxide Anion Gap BUN Creatinine Estim Creat Clear Calc Est GFR (MDRD) Af Amer Est GFR (MDRD) Non-Af BUN/Creatinine Ratio Glucose Lactic Acid 1.7 Calcium Total Bilirubin AST ALT Alkaline Phosphatase Ammonia 37.0 H Troponin I High Sens B-Natriuretic Peptide Total Protein Albumin Globulin Albumin/Globulin Ratio Lipase Urine Color Urine Clarity Urine pH Ur Specific [place] Urine Protein Urine Glucose (UA) Urine Ketones Urine Occult Blood Urine Nitrite Urine Bilirubin Urine Urobilinogen Ur Leukocyte Esterase Urine RBC Urine WBC Ur Squamous Epith Cells Urine Bacteria Urine Mucus 01/23/23 01/23/23 01/23/23 17:05 17:05 17:05 WBC RBC Hgb Hct MCV MCH MCHC RDW Std Deviation RDW Coeff of [place] Plt Count MPV Immature Gran % (Auto) Neut % (Auto) Lymph % (Auto) [place] % (Auto) Eos % (Auto) Baso % (Auto) Absolute Neuts (auto) Absolute Lymphs (auto) Nucleated RBC % Differential Comment PT 16.8 H INR 1.4 APTT 32.9 Sodium 141 Potassium 4.7 Chloride 105 Carbon Dioxide 31.0 Anion Gap 5 BUN 32 H Creatinine 2.37 H Estim Creat Clear Calc 14.96 Est GFR (MDRD) Af Amer 26 L Est GFR (MDRD) Non-Af 21 L BUN/Creatinine Ratio 13.5 Glucose 143 H Lactic Acid Calcium 8.6 Total Bilirubin 0.40 AST 64 H ALT 33 Alkaline Phosphatase 93 Ammonia Troponin I High Sens 133 H* B-Natriuretic Peptide 583.8 H Total Protein 5.7 L Albumin 2.1 L Globulin 3.6 Albumin/Globulin Ratio 0.6 L Lipase 259 Urine Color Urine Clarity Urine pH Ur Specific [place] Urine Protein Urine Glucose (UA) Urine Ketones Urine Occult Blood Urine Nitrite Urine Bilirubin Urine Urobilinogen Ur Leukocyte Esterase Urine RBC Urine WBC Ur Squamous Epith Cells Urine Bacteria Urine Mucus 01/23/23 18:40 WBC RBC Hgb Hct MCV MCH MCHC RDW Std Deviation RDW Coeff of [place] Plt Count MPV Immature Gran % (Auto) Neut % (Auto) Lymph % (Auto) [place] % (Auto) Eos % (Auto) Baso % (Auto) Absolute Neuts (auto) Absolute Lymphs (auto) Nucleated RBC % Differential Comment PT INR APTT Sodium Potassium Chloride Carbon Dioxide Anion Gap BUN Creatinine Estim Creat Clear Calc Est GFR (MDRD) Af Amer Est GFR (MDRD) Non-Af BUN/Creatinine Ratio Glucose Lactic Acid Calcium Total Bilirubin AST ALT Alkaline Phosphatase Ammonia Troponin I High Sens B-Natriuretic Peptide Total Protein Albumin Globulin Albumin/Globulin Ratio Lipase Urine Color Yellow Urine Clarity Clear Urine pH 5.0 Ur Specific [place] 1.020 Urine Protein 100 H Urine Glucose (UA) Normal Urine Ketones Negative Urine Occult Blood 10 H Urine Nitrite Negative Urine Bilirubin Negative Urine Urobilinogen Normal Ur Leukocyte Esterase 100 H Urine RBC 0 SEEN Urine WBC 0-5 SEEN Ur Squamous Epith Cells 0 SEEN Urine Bacteria 1+ Urine Mucus 0 SEEN ABG Data ABG results: ABG 01/23/23 17:25 Specimen Type ART Sample Site R Radial pH 7.35 Bicarbonate Actual 29.8 H Total CO2 32 Base Excess 4 H O2 Saturation 98 ABG pCO2 53.8 H ABG pO2 111 H Eliecer Test Positive O2 Delivery Device Cannula Liter Flow 3.0 Radiography Diagnostic Testing: Clinical Impression(s) from Imaging Studies Abdomen/Pelvis CT 01/23/23 16:32 IMPRESSION: 1. No acute abnormalities identified in the abdomen/pelvis. 2. Cirrhotic morphology of the liver with prior TIPS procedure. 3. Some body wall edema and a moderate left pleural effusion, but there is no ascites. Electronically Signed: Dane Crowe MD at 18:31 EDT Reading Location ID and State: [facility] / [place] Tel , Service support , Brain CT 01/23/23 16:34 IMPRESSION: 1. No acute intracranial abnormalities. 2. Age-related changes. Electronically Signed: Dane Crowe MD at 18:25 EDT , Chest X-Ray 01/23/23 17:50 IMPRESSION: Left basilar airspace disease and small pleural effusion. Findings may indicate atelectasis or infection. Electronically Signed: aDne Crowe MD at 18:27 EDT , Rhythm Strip Rhythm Strip: Sinus Rhythm Rate: 85 Ectopy: None EKG Initial EKG: Attestation: I personally reviewed and interpreted this EKG as follows: Interpretation: Sinus Rhythm, No Acute Injury Pattern, RBBB and LAFB Prior EKG tracings: available for review Prior: Unchanged Management Discussion w/another healthcare provider: Hospitalist Discharge Plan Dx/Rx/DC Orders Clinical Impression: Hepatic encephalopathy, Cirrhosis, Pneumonia, Parapneumonic effusion, Anasarca Disposition Disposition: Acute Care Hospital [facility] Discharge Date/Time: 01/23/23 20:24
[2023-01-23] MEDS: Ondansetron 4 MG/2 ML Vial IV (17:08)
[2023-01-23] MEDS: Lactulose 20 GM/30 ML UDC PO ×2 (17:09→22:24)
[2023-01-23] MEDS: Acetaminophen 500 MG Tablet 1000 MG PO ×2 (17:09→22:26)
[2023-01-23 17:31] LABS: Allen Test Positive; Base Excess 4 mmol/L (-2 to +2); Bicarbonate 29.8 mmol/L (22-26); Blood Gas Specimen Type ART; O2 Delivery Device Cannula; PO2 111 mmHG (75-100); SITE R Radial; SO2 98 % (95-99); Total Carbon Dioxide 32 mmol/L; pCO2 53.8 mmHg (35-45); pH 7.35 (7.35-7.45)
[2023-01-23 17:32] LABS: Absolute Lymphocyte Count 0.44 X10^3/uL (0.83-4.51); Basophil# 0.04 X10^3/uL; Basophil% 0.5 % (0-1); Eosinophil# 0.08 X10^3/uL; Eosinophils% 1.1 % (0-5); Hematocrit 27.3 % (37-47); Hemoglobin 7.8 g/dL (12.0-15.0); Lymphocyte # 0.44 X10^3/ul (0.83-4.51); Mean Corp Hgb Conc 28.6 g/dL (32-36); Mean Corpuscular Hgb 27.6 pg (27.0-32.0); Mean Corpuscular Volume 96.5 fL (81-99); Mean Platelet Vol. 11.7 fl (6.2-12.0); Monocyte# 0.83 X10^3/uL; Monocyte% 11.3 % (0-10); NRBC Flagged by Analyzer 0 % (0-5); Neutrophil # 5.95 X10^3/uL (2.7-7.7); Neutrophil % 80.7 % (47-70); POSITIVE COUNT YES; POSITIVE DIFFERENTIAL YES; Platelet Count 85 K/mm3 (150-450); RBC Distribution Width CV 17.2 % (11.6-14.6); Red Blood Count 2.83 M/mm3 (4.2-5.4); White Blood Count 7.4 K/mm3 (4.4-11.0)
[2023-01-23 17:38] LABS: International Normalized Ratio 1.4; Partial Thromboplast Time 32.9 Seconds (24.1-36.2); Prothrombin Time (Protime)PT. 16.8 SECONDS (11.7-14.9)
[2023-01-23 17:41] LABS: Lactic Acid 1.7 mmol/L (0.4-1.9)
--- NOTE | 2023-01-23 17:50 | RAD_ITS ---
EXAM: XR CHEST, 2 VIEWS CLINICAL INDICATION: sob TECHNIQUE: Frontal and lateral views of the chest. This report was created using [employer] report generation technology. COMPARISON: 01/13/2023 FINDINGS: LUNGS AND PLEURAL SPACES: Left basilar airspace disease and small pleural effusion. No pneumothorax. HEART: Mild enlargement of the cardiac silhouette. MEDIASTINUM: Central airways and mediastinal contour are unremarkable. BONES/JOINTS: Unremarkable. SOFT TISSUES: Unremarkable. RAD/Chest PA and Lateral IMPRESSION: Left basilar airspace disease and small pleural effusion. Findings may indicate atelectasis or infection. Electronically Signed: Dane Crowe MD at 18:27 EDT ,
[2023-01-23 18:11] LABS: Differential Comment SCANNED; Differential Indicated SCAN CRITERIA MET
[2023-01-23 18:31] LABS: ALB/GLOB Ratio 0.6 RATIO (0.9-2.4); AST(SGOT) 64 U/L (15-37); Alanine Aminotransfer ALT/SGPT 33 U/L (13-56); Albumin, Serum 2.1 g/dL (3.2-5.0); Alkaline Phosphatase 93 U/L (45-117); Anion Gap 5 (5-15); BUN 32 mg/dL (7-18); BUN/Creat Ratio 13.5 RATIO (10-20); Calcium,Total 8.6 mg/dL (8.5-10.1); Chloride 105 mmol/L (98-107); Creatinine, Serum 2.37 mg/dL (0.55-1.02); EST Glomerular Filtration Rate 21 mL/min (>60); Est Glom Filt Rate - Afr Amer 26 mL/min (>60); Estimated Creatinine Clearance 14.96 ml/min; Globulin 3.6 g/dL (2.2-4.2); Glucose 143 mg/dL (74-106); Lipase 259 U/L (73-393); Potassium 4.7 mmol/L (3.5-5.1); Protein, Total 5.7 g/dL (6.4-8.2); Sodium Level 141 mmol/L (136-145); Troponin-I HS 133 pg/mL (3.0-54.0)
[2023-01-23 18:46] LABS: Mucous, Urine 0 SEEN /hpf (<or=2+); Red Blood Cells-Urine 0 SEEN /hpf (0-5); Squamous Epithelial Cells - UA 0 SEEN /hpf (5-10)
[2023-01-23 18:48] LABS: Color, Urine Yellow (Yellow); Glucose, Dipstick Normal (Normal); Ketone-Dipstick Negative (Negative); Leukocyte Esterase-Dipstick 100 /ul (Negative); Nitrite-Dipstick Negative (Negative); Occult Blood-Urine 10 /ul (Negative); Protein-Dipstick 100 mg/dl (Negative); Urine Bilirubin Dipstick Negative (Negative); Urine Clarity Clear (Clear); Urine Urobilinogen Normal (Normal)
[2023-01-23] MEDS: Ceftriaxone 1 GM/50 ML BAG IV (18:51)
[2023-01-23 18:55] LABS: Bacteria 1+ /hpf (None Seen); White Blood Cells 0-5 SEEN /hpf (0-5)
[2023-01-23 19:09] LABS: BNP,B-Type NATRIURETIC PEPTIDE 583.8 pg/mL (0-100)
[2023-01-23] MEDS: Furosemide 40 MG/4 ML Vial IV (19:19)
--- NOTE | 2023-01-23 19:49 | PCM.HP.STD ---
HPI - General General Date of Admission: 01/23/23 Date of Service: 01/23/23 Chief Complaint: Fever/shortness of breath HPI Narrative MICHAEL HENLEY, is a 72 F who presented to the emergency department at [facility] with shortness of breath. The patient just recently had an extended stay here from 01/12/2023 through 01/20/2023. She was discharged and was home for approximately 2 days and then started developing fevers. Her first fever was last evening and Tmax this morning was 101. Her brother, with whom she lives, gave her Tylenol to get her fever under control. She is somewhat encephalopathic and 8 unable to participate much in history of present illness however he reported that she has developed a cough, worsening shortness of breath, fever, worsening confusion, intermittent nausea and vomiting as well as general malaise. He is concerned about her chronic lower extremity edema as well as her shortness of breath. He reports that her confusion really started this morning. She has overall been compliant with her medications per his report. Vital signs on presentation showed a temperature of 98.5 however she has had a Tmax in the emergency department of 101.2, heart rate was 78, blood pressure was 170/49, respiratory rate has been between 20 and 26 and her oxygen saturations were 97-100 on 3 L nasal cannula. CBC shows a normal white count with a stable hemoglobin at 7.8 and thrombocytopenia with a stable platelet count 85,000. She does have a left shift with an 80.7% neutrophilia which is dramatically changed in the last 72 hours. Neutrophil count at discharge was 55.1%. Coags show a slightly elevated INR at 1.4. ABG was performed and showed a pH of 7.35 with a PCO2 of 53.8 and a PO2 of 111 on 3 L nasal cannula. Her chemistry panel was overall unremarkable with regard to electrolytes. Her serum BUN and creatinine were elevated but stable at their baseline. Serum glucose was 143. Lactic acid was 1.7. Her ammonia was down to 37. Her troponin was 133 however she does evidently have a chronic elevation when compared to previous data. BNP was elevated at 583.8 however this is only slightly elevated compared to previous. Lipase was 259. Her urine is not suggestive of infection. CT of the abdomen pelvis was performed that showed no acute abnormalities in the abdomen or pelvis but did show a moderate left pleural effusion with bibasilar atelectasis and compressive atelectasis on the left. When I reviewed her previous CAT scan from her last admission was notably there at that time as well. CT of the brain was unremarkable for any acute findings. EKG shows normal sinus rhythm with right bundle branch block and poor R wave progression but no ST-T wave changes concerning for acute ischemia. Cultures were obtained upon admission and she was started on broad-spectrum antibiotics. FOR[facility]LY [facility] Medical History Abdominal pain Anemia Ascites Asthma Cirrhosis Cirrhosis CKD (chronic kidney disease), stage IV COPD (chronic obstructive pulmonary disease) Depressive disorder Diabetes mellitus GERD (gastroesophageal reflux disease) Hernia history diagnostic hysteroscopy history thrombendarterectomy neck Hypertension Osteoarthrosis Portal vein thrombosis Rectus sheath hematoma Splenic vein thrombosis Thrombocytopenia Home Medications atorvastatin 40 mg tablet (Lipitor) 40 mg PO QHS cholesterol 02/09/22 [History Last Taken 07/17/22] labetalol 100 mg tablet 50 mg PO BID blood pressure 05/26/22 [History Last Taken 07/17/22] lactulose 10 gram/15 mL oral solution 30 ml PO 4X/DAY liver 10/16/22 [History Last Taken Unknown] ondansetron 4 mg disintegrating tablet 4 mg PO Q6H PRN PRN nausea/vomiting 10/16/22 [History Last Taken Unknown] spironolactone 25 mg tablet 25 mg PO DAILY liver #30 tabs 10/19/22 [Rx Last Taken Unknown] albuterol sulfate 90 mcg/actuation aerosol inhaler 2 puff inhalation Q4H PRN SOB 11/20/22 [History Last Taken Unknown] torsemide 20 mg tablet 20 mg PO BID WATER PILL 11/20/22 [History Last Taken Unknown] latanoprost 0.005 % eye drops 1 drp LEFT EYE QPM eye health 12/31/22 [History Last Taken Unknown] omeprazole 20 mg capsule,delayed release 20 mg PO DAILY reflux 12/31/22 [History Last Taken Unknown] rifaximin 550 mg tablet (Xifaxan) 550 mg PO BID bowels 12/31/22 [History Last Taken Unknown] sodium bicarbonate 650 mg tablet 1,300 mg PO TID supplement 12/31/22 [History Last Taken Unknown] furosemide 20 mg tablet 20 mg PO BID chf 01/12/23 [History Last Taken Unknown] labetalol 100 mg tablet 50 mg PO BID blood pressure 01/12/23 [History Last Taken Unknown] pantoprazole 40 mg tablet,delayed release 40 mg PO DAILY reflux 01/12/23 [History Last Taken Unknown] polysaccharide iron complex 150 mg iron capsule (iFerex 150) 150 mg PO DAILY supplement 01/12/23 [History Last Taken Unknown] simethicone 80 mg chewable tablet 80 mg PO QHS gas 01/12/23 [History Last Taken Unknown] azithromycin 500 mg tablet 1,000 mg PO DAILY 7 days #14 tabs 01/19/23 [Rx Last Taken Unknown] glimepiride 2 mg tablet 2 mg PO DAILY #60 tabs 01/19/23 [Rx Last Taken Unknown] metronidazole 500 mg tablet 500 mg PO BID 7 days #14 tabs 01/19/23 [Rx Last Taken Unknown] neomycin 500 mg tablet 500 mg PO BID 7 days #14 tabs 01/19/23 [Rx Last Taken Unknown] tizanidine 4 mg tablet 4 mg PO Q8H PRN Muscle Spasm 01/23/23 [History Last Taken Unknown] Allergy/AdvReac Type Severity Reaction Status Date / Time suture Allergy Mild rash/ Verified 01/23/23 16:17 wound dehisence amoxicillin Allergy Unknown Verified 01/23/23 16:17 azithromycin Allergy Shortness Verified 01/23/23 16:17 of breath celecoxib [From Celebrex] Allergy Other Verified 01/23/23 16:17 ciprofloxacin HCl Allergy Shortness Verified 01/23/23 16:17 [From Cipro] of breath cortisone Allergy Swelling Verified 01/23/23 16:17 doxycycline Allergy Shortness Verified 01/23/23 16:17 of breath erythromycin base Allergy Unknown Verified 01/23/23 16:17 fexofenadine [From Ashlee] Allergy Unknown Verified 01/23/23 16:17 ibuprofen Allergy Shortness Verified 01/23/23 16:17 of breath Iodinated Contrast Media Allergy Shortness Verified 01/23/23 16:17 [DYEE] of breath iodine Allergy Shortness Verified 01/23/23 16:17 of breath levofloxacin [From Levaquin] Allergy Shortness Verified 01/23/23 16:17 of breath lorazepam [From Ativan] Allergy Shortness Verified 01/23/23 16:17 of breath nitrofurantoin Allergy Shortness Verified 01/23/23 16:17 macrocrystalline of breath [From Macrobid] Penicillins Allergy Shortness Verified 01/23/23 16:17 of breath rofecoxib [From Vioxx] Allergy Unknown Verified 01/23/23 16:17 Sulfa (Sulfonamide Allergy Shortness Verified 01/23/23 16:17 Antibiotics) of breath sulfamethoxazole Allergy Shortness Verified 01/23/23 16:17 [From Bactrim] of breath trimethoprim [From Bactrim] Allergy Shortness Verified 01/23/23 16:17 of breath amlodipine [From Norvasc] AdvReac Upset Verified 01/23/23 16:17 Stomach MISC BP MED AdvReac Shortness Uncoded 01/23/23 16:17 of breath Family History Mother Heart disease Brother Heart disease Surgical History History of bilateral salpingo-oophorectomy History of endarterectomy History of laparoscopic cholecystectomy History of oral surgery S/P TIPS (transjugular intrahepatic portosystemic shunt) Social History household members: spouse Smoking Status: Former smoker alcohol intake: never substance use type: does not use ROS Review of Systems ROS Unobtainable: due to mental status and other Details: Patient was mildly confused and only told me that her brother made her come in but she was not clear why Vital Signs Vital Signs Vital Signs: 01/23/23 16:17 01/23/23 16:23 01/23/23 16:24 Temperature 98.5 F 101.2 F H Temperature Source Oral Temporal Pulse Rate 78 80 Respiratory Rate 26 H 24 H Respiratory Effort Short of Breath Respiratory Depth Normal Respiratory Pattern Tachypnea Blood Pressure 170/49 H 170/49 H Blood Pressure Mean 89 89 Pulse Ox 97 99 Oxygen Delivery Method Nasal Cannula Nasal Cannula Nasal Cannula Oxygen Flow Rate (L/min) 3 3 3 01/23/23 17:01 01/23/23 17:19 01/23/23 18:19 Temperature 100.4 F H 99.4 F H Temperature Source Oral Oral Pulse Rate 76 77 Respiratory Rate 24 H 20 H Respiratory Effort Respiratory Depth Respiratory Pattern Blood Pressure 165/54 H 142/49 H Blood Pressure Mean 91 80 Pulse Ox 100 98 98 Oxygen Delivery Method Nasal Cannula Room Air Room Air Oxygen Flow Rate (L/min) 3 1 01/23/23 18:43 01/23/23 19:47 Temperature 98.3 F 97.8 F Temperature Source Temporal Temporal Pulse Rate 75 83 Respiratory Rate 21 H 18 Respiratory Effort Respiratory Depth Respiratory Pattern Blood Pressure 157/42 H 162/45 H Blood Pressure Mean 80 84 Pulse Ox 98 98 Oxygen Delivery Method Nasal Cannula Nasal Cannula Oxygen Flow Rate (L/min) 3 3 Weight Weight: 77.6 kg Body Mass Index (BMI) 33.4 Physical Exam Const alert and no apparent distress Constitutional Narrative: Obese, elderly white female lying in bed, appears comfortable at this time, nontoxic, oriented to self, place but not month or year, angry with me when I told her we were going to admit her to the hospital General Appearance: cooperative HEENT normocephalic, head/scalp atraumatic, hearing grossly normal bilaterally and moist oral mucous membranes HEENT Narrative: Dentition is poor, Mallampati is 3, no thrush Eyes PERRL and EOMs intact bilaterally Eyes Narrative: Mildly pale conjunctiva bilaterally, no scleral icterus Neck no lymphadenopathy, supple and no carotid bruits Neck Narrative: Trachea midline, no thyroid enlargement, neck is short and thick Resp normal respiratory effort, no retractions and no use of accessory muscles Resp Narrative: Decreased breath sounds at right base Auscultation: Negative for rales, rhonchi or wheezes Cardio regular rate, regular rhythm, S1 normal heart sound, S2 normal heart sound, no murmurs, no rub, no gallops and no clicks GI normal to inspection, nondistended, normoactive bowel sounds, soft to palpation and non-tender Extremity Extremity Narrative: 2+ pitting LE edema bilateral lower extremities below the knees, no cyanosis or clubbing Skin No no rashes or lesions noted, no wounds, skin turgor normal, no jaundice, no petechiae and no mottling Skin Narrative: Bilateral tinea on plantar and medial aspect of feet, skin is pale Neuro No oriented x3, CN's II-XII intact bilaterally, moves all extremities and no focal motor deficits Neuro Narrative: Oriented to self and place but not time, generalized weakness Sensorium / Orientation: awake, alert, oriented to person and oriented to place Speech: speech normal Psych Psych Narrative: Patient somewhat agitated especially when I discussed with her that she will be admitted to the hospital Results Lab / Micro Data Attestation: I reviewed the patient's lab results. Result Diagrams: 01/23/23 17:05 01/23/23 17:05 Labs: Laboratory Results - last 24 hr 01/23/23 16:20: Ammonia 37.0 H 01/23/23 17:00: Lactic Acid 1.7 01/23/23 17:05: WBC 7.4, RBC 2.83 L, Hgb 7.8 L, Hct 27.3 L, MCV 96.5, MCH 27.6, MCHC 28.6 L, RDW Std Deviation 60.0 H, RDW Coeff of Jordan 17.2 H, Plt Count 85 L, MPV 11.7, Immature Gran % (Auto) 0.400, Neut % (Auto) 80.7 H, Lymph % (Auto) 6.0 L, Grimes % (Auto) 11.3 H, Eos % (Auto) 1.1, Baso % (Auto) 0.5, Absolute Neuts (auto) 6.0, Absolute Lymphs (auto) 0.44 L, Nucleated RBC % 0, Differential Comment SCANNED 01/23/23 17:05: Sodium 141, Potassium 4.7, Chloride 105, Carbon Dioxide 31.0, Anion Gap 5, BUN 32 H, Creatinine 2.37 H, Estim Creat Clear Calc 14.96, Est GFR (MDRD) Af Amer 26 L, Est GFR (MDRD) Non-Af 21 L, BUN/Creatinine Ratio 13.5, Glucose 143 H, Calcium 8.6, Total Bilirubin 0.40, AST 64 H, ALT 33, Alkaline Phosphatase 93, Troponin I High Sens 133 H*, Total Protein 5.7 L, Albumin 2.1 L, Globulin 3.6, Albumin/Globulin Ratio 0.6 L, Lipase 259 01/23/23 17:05: PT 16.8 H, INR 1.4, APTT 32.9 01/23/23 17:05: B-Natriuretic Peptide 583.8 H 01/23/23 18:40: Urine Color Yellow, Urine Clarity Clear, Urine pH 5.0, Ur Specific [place] 1.020, Urine Protein 100 H, Urine Glucose (UA) Normal, Urine Ketones Negative, Urine Occult Blood 10 H, Urine Nitrite Negative, Urine Bilirubin Negative, Urine Urobilinogen Normal, Ur Leukocyte Esterase 100 H, Urine RBC 0 SEEN, Urine WBC 0-5 SEEN, Ur Squamous Epith Cells 0 SEEN, Urine Bacteria 1+, Urine Mucus 0 SEEN Micro: Microbiology 01/23/23 16:20 Nasal Secretion SARS-CoV-2 & FLU Antigen (Rapid) - Final ABG Data ABG results: ABG 01/23/23 17:25 Specimen Type ART Sample Site R Radial pH 7.35 Bicarbonate Actual 29.8 H Total CO2 32 Base Excess 4 H O2 Saturation 98 ABG pCO2 53.8 H ABG pO2 111 H Eliecer Test Positive O2 Delivery Device Cannula Liter Flow 3.0 Rhythm Strip Rhythm Strip: Sinus Rhythm Rate: 85 Ectopy: None Radiology Impression Abdomen/Pelvis CT 01/23/23 16:32 IMPRESSION: 1. No acute abnormalities identified in the abdomen/pelvis. 2. Cirrhotic morphology of the liver with prior TIPS procedure. 3. Some body wall edema and a moderate left pleural effusion, but there is no ascites. Electronically Signed: Dane Crowe MD at 18:31 EDT Reading Location ID and State: [place] / [employer] Tel , Service support , Brain CT 01/23/23 16:34 IMPRESSION: 1. No acute intracranial abnormalities. 2. Age-related changes. Electronically Signed: Dane Crowe MD at 18:25 EDT Reading Location ID and State: [place] / [place] Tel , Service support , Chest X-Ray 01/23/23 17:50 IMPRESSION: Left basilar airspace disease and small pleural effusion. Findings may indicate atelectasis or infection. Electronically Signed: Dane Crowe MD at 18:27 EDT , Assessment & Plan Assessment/Plan (1) Pneumonia: (2) Anasarca: (3) Metabolic encephalopathy: (4) Elevated troponin I level: (5) Elevated brain natriuretic peptide (BNP) level: (6) Hypoxia: (7) Pleural effusion, left: (8) Tinea pedis: (9) Fever: PLAN: Plan Acute hypoxia/fever secondary to suspected pneumonia -Patient with recent hospitalizations and will therefore cover for healthcare acquired infections with cefepime and vancomycin due to penicillin allergy -Check sputum culture if able to produce -Check strep pneumo and Legionella antigens -COVID and flu are negative -Check MRSA PCR -Pulmonary toilet -Incentive spirometry -Patient utilizes 2 L of oxygen at baseline however currently requiring 3 L to maintain oxygen saturations -Wean as able Left pleural effusion -Appear to be present on CAT scan at last admission and looks possibly worse on chest x-ray -Parapneumonic effusion would have to be in the differential -No ascites noted on CT of the abdomen pelvis so I doubt it is translocation from the abdomen up through the diaphragm -Thoracentesis ordered--> suspect will not be able to be done until Thursday -Fluid studies and cultures of fluid were ordered -Continue antibiotics as above -Continue diuresis Troponin elevation -Her troponin is chronically elevated and this is likely related to her CKD -She has had recent work-up with regards to this including the echocardiogram on 01/01/2022 -Echo showed an EF of 70 percent with no wall motion abnormality and mild left atrial enlargement -Cycle to make sure that it does not increase further however stable no further work-up needed Acute on chronic HFpEF -Likely related to renal and liver failure as well as diastolic dysfunction -Patient is currently on home torsemide and furosemide as well as Aldactone for her liver--> both oral loop diuretics are on hold but Aldactone will be continued -Would recommend discontinuing these and using Bumex with her low albumin at discharge but at the very least should only be on 1 loop diuretic -IV Bumex 1 mg twice daily for now with close monitoring of her renal function -BNP is slightly higher than it was previously at her last admission Tinea pedis -Start nystatin cream bilateral feet Toxic/metabolic encephalopathy -Worsened compared to mental status at discharge per discussion with her brother with whom she lives -Ammonia level is improved -Suspect related to above infection -Continue to monitor -CT of the brain was unremarkable for any acute changes 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 -Patient had previous TIPS at [facility] but is not on transplant list -Performed for refractory and recalcitrant ascites with SKY -MELD is 14 and Child-Ortiz class C due to renal failure and hepatic encephalopathy -Patient has intermittent compliance issues with medication -Continue lactulose as ordered previously -Continue home neomycin -Continue home azithromycin -Continue home Flagyl -Continue home rifaximin -Continue home oral bicarbonate -Continue home Aldactone Hyperlipidemia -Continue however statin Hypertension -Continue home labetalol DM-2 -hold home glipizide--> may want to consider discontinuation completely and placing on low-dose Lantus or Levemir with renal disease -SSI -Accu-Cheks -Cardiac/carb controlled diet with fluid and sodium restrictions due to the above GERD -Continue home Protonix -Patient was also recorded to be on omeprazole we will discontinue and would recommend ongoing discontinuation at discharge Chronic anemia -Continue home iron supplementation -Hemoglobin is currently stable Chronic thrombocytopenia -Secondary to her liver disease -Platelet counts are stable at 85,000 CKD stage IV -Serum creatinine is at baseline at 2.37 with baseline being 2.0-2.4 -Patient should follow with nephrology as an outpatient after discharge unless any acute changes occur while she is hospitalized -Avoid nephrotoxins -Repeat lab in a.m. -Suspect hepatorenal syndrome +/- diabetic nephropathy Glaucoma -Continue eyedrops History of esophageal varices -Esophageal varices have resolved -EGD performed on 02/11/2022--> showed resolution of varices but did show a single bleeding angiodysplastic lesion that was cauterized and 3 small nonbleeding ulcers in the prepyloric area of the stomach -Continue beta-paris COPD -Continue as needed aerosols PAH who group 3 -Suspect related to COPD and untreated sleep apnea Obesity -BMI is 33.4 -Recommend weight loss -Complicates treatment, prognosis, outcomes DVT prophylaxis -Heparin 3 times daily CODE STATUS -Full code -Evidently power of associate attorney paperwork was dissolved today per discussion with her brother with whom she lives, she does have a but he is demented and she has 3 girls. I did explain to the brother that her children would be considered power of associate attorney at this time however if he would like to pursue power of associate attorney he should take legal action to do so as evidently there are some issues with agreement between the children and the level of their involvement per his input. Charges/Coding Visit Charges Inpatient E&M: 67036 Init Hosp L3
[2023-01-23] MEDS: Latanoprost 0.005% 1 Bottle 1 DRP LEFT EYE (22:22)
[2023-01-23] MEDS: Atorvastatin Calcium 40 MG Tablet PO (22:24)
[2023-01-23] MEDS: metroNIDAZOLE 500 MG Tablet PO (22:24)
[2023-01-23] MEDS: Sodium Bicarbonate 650 MG Tablet 1300 MG PO (22:25)
[2023-01-23] MEDS: Labetalol 100 MG Tablet 50 MG PO (22:25)
[2023-01-23] MEDS: Nystatin Ointment 1 APPLIC TOPICAL (22:25)
[2023-01-23] MEDS: rifAXIMin 550 MG Tablet PO (22:26)
--- NOTE | 2023-01-23 22:36 | NURSING ---
this Rn is unable to complete med rec. per pt does not know home medications, pt noted with recent hospitalization.
[2023-01-23] MEDS: Heparin Injection (Vial) 5,000 UNIT/ML VIAL 5000 UNIT SC (22:45)
[2023-01-23] MEDS: 0.9% Saline Lock 10 ML Syringe IV (22:45)
[2023-01-23 23:18] LABS: Troponin-I HS 138 pg/mL (3.0-54.0)
[2023-01-24] VITALS (9 sets, daily range): BP systolic 105–158; BP diastolic 31–78; PULSE 70–86; RESP 17–21; TEMP 36.4–36.9; O2SAT 93–100
[2023-01-24] MEDS: Ipratropium/Albuterol Sulfate 3 ML AMPUL.NEB INHALATION ×3 (00:28→21:33)
--- NOTE | 2023-01-24 01:00 | NURSING ---
per lab unable to drawl labs until 0300. aware
[2023-01-24 03:41] LABS: Absolute Lymphocyte Count 0.66 X10^3/uL (0.83-4.51); Absolute Neutrophil Count 3.7 X10^3/uL (2.0-7.7); Basophil# 0.03 X10^3/uL; Basophil% 0.6 % (0-1); Eosinophil# 0.09 X10^3/uL; Eosinophils% 1.7 % (0-5); Hematocrit 26.3 % (37-47); Hemoglobin 7.6 g/dL (12.0-15.0); Lymphocyte # 0.66 X10^3/ul (0.83-4.51); Lymphocyte % 12.5 % (19-41); Mean Corp Hgb Conc 28.9 g/dL (32-36); Mean Corpuscular Hgb 27.6 pg (27.0-32.0); Mean Corpuscular Volume 95.6 fL (81-99); Mean Platelet Vol. 11.8 fl (6.2-12.0); Monocyte# 0.76 X10^3/uL; Monocyte% 14.4 % (0-10); NRBC Flagged by Analyzer 0 % (0-5); Neutrophil # 3.71 X10^3/uL (2.7-7.7); Neutrophil % 70.6 % (47-70); POSITIVE COUNT YES; Platelet Count 77 K/mm3 (150-450); RBC Distribution Width CV 17.3 % (11.6-14.6); Red Blood Count 2.75 M/mm3 (4.2-5.4); White Blood Count 5.3 K/mm3 (4.4-11.0)
--- NOTE | 2023-01-24 04:14 | PCM.RX.CS ---
Consult Pharmacy has been consulted to manage selected antiobiotic: Vancomycin Type of Consult: New start Microbiology: Microbiology 01/23/23 16:20 Nasal Secretion SARS-CoV-2 & FLU Antigen (Rapid) - Final Goal Trough: 15-20 mcg/mL Pharmacy Plan for Drug Dosing: Pharmacy Service will continue to monitor and adjust dosing as required. Medications Discontinued Medications Vancomycin HCl 1,250 mg/ (Sodium Chloride) 275 mls @ 167 mls/hr IV X1 ONE Stop: 01/23/23 23:38 Last Admin: 01/23/23 22:45 Dose: 167 mls/hr SCr < 20 GIVE 1ST DOSE AND DRAW RANDOM LEVEL ON 01/25 WITH AM LABS Follow-Up Labs: Trough Vancomycin Labs to be done on [date and time ordered]: 01/25 @ 0600 RANDOM
[2023-01-24 04:17] LABS: Troponin-I HS 114 pg/mL (3.0-54.0)
[2023-01-24 04:30] LABS: ALB/GLOB Ratio 0.6 RATIO (0.9-2.4); AST(SGOT) 67 U/L (15-37); Alanine Aminotransfer ALT/SGPT 30 U/L (13-56); Alkaline Phosphatase 85 U/L (45-117); Anion Gap 3 (5-15); BUN 33 mg/dL (7-18); BUN/Creat Ratio 14.1 RATIO (10-20); Calcium,Total 8.3 mg/dL (8.5-10.1); Chloride 106 mmol/L (98-107); Creatinine, Serum 2.34 mg/dL (0.55-1.02); EST Glomerular Filtration Rate 22 mL/min (>60); Est Glom Filt Rate - Afr Amer 26 mL/min (>60); Estimated Creatinine Clearance 15.15 ml/min; Globulin 3.4 g/dL (2.2-4.2); Glucose 120 mg/dL (74-106); Magnesium 1.8 mg/dL (1.6-2.6); Phosphorus 3.8 mg/dL (2.5-4.9); Protein, Total 5.4 g/dL (6.4-8.2); Sodium Level 139 mmol/L (136-145)
[2023-01-24] MEDS: Sodium Bicarbonate 650 MG Tablet 1300 MG PO ×3 (06:06→22:04)
[2023-01-24] MEDS: Acetaminophen 500 MG Tablet 1000 MG PO ×3 (06:06→22:05)
[2023-01-24] MEDS: Heparin Injection (Vial) 5,000 UNIT/ML VIAL 5000 UNIT SC ×3 (06:06→22:02)
[2023-01-24 07:00] LABS: Bedside Glucose 110 mg/dL (74-106)
--- NOTE | 2023-01-24 09:13 | PN.HOSP_ITS ---
Reason for Visit Reason for Visit: Diagnoses Tinea pedis (01/23/23) Metabolic encephalopathy (01/23/23) Pneumonia, unspecified organism (01/23/23) Pleural effusion, not elsewhere classified (01/23/23) Hypoxemia (01/23/23) Fever, unspecified (01/23/23) Generalized edema (01/23/23) Other specified abnormalities of plasma proteins (01/23/23) Other specified abnormal findings of blood chemistry (01/23/23) Subjective Subjective Patient is a 72-year-old lady with history of cirrhosis of the liver status post TIPS procedure admitted with fever. Objective Data Objective Data Vital Signs: Vital Signs Temp Pulse Resp BP Pulse Ox O2 Del Method O2 Flow Rate 98.5 F 75 20 H 120/31 L 93 Nasal Cannula 3 01/24/23 06:00 01/24/23 06:00 01/24/23 06:00 01/24/23 06:00 01/24/23 08:55 01/24/23 08:55 01/24/23 08:55 Oxygen Flow Rate (L/min) 3 Oxygen Delivery Method Nasal Cannula Weight: 74.3 kg Body Mass Index (BMI) 32.0 Intake & Output: Intake and Output for Last 24 Hours 01/22/23 01/23/23 01/24/23 23:59 23:59 23:59 Intake Total 50 / 290 635 / 635 Output Total 0 / 0 Balance 50 / 290 635 / 635 Lab / Micro Data Result Diagrams: 01/24/23 03:20 01/24/23 03:20 Labs: Laboratory Results - last 24 hr 01/23/23 16:20: Ammonia 37.0 H 01/23/23 17:00: Lactic Acid 1.7 01/23/23 17:05: WBC 7.4, RBC 2.83 L, Hgb 7.8 L, Hct 27.3 L, MCV 96.5, MCH 27.6, MCHC 28.6 L, RDW Std Deviation 60.0 H, RDW Coeff of Jordan 17.2 H, Plt Count 85 L, MPV 11.7, Immature Gran % (Auto) 0.400, Neut % (Auto) 80.7 H, Lymph % (Auto) 6.0 L, Laporte % (Auto) 11.3 H, Eos % (Auto) 1.1, Baso % (Auto) 0.5, Absolute Neuts (auto) 6.0, Absolute Lymphs (auto) 0.44 L, Nucleated RBC % 0, Differential Comment SCANNED 01/23/23 17:05: Sodium 141, Potassium 4.7, Chloride 105, Carbon Dioxide 31.0, Anion Gap 5, BUN 32 H, Creatinine 2.37 H, Estim Creat Clear Calc 14.96, Est GFR (MDRD) Af Amer 26 L, Est GFR (MDRD) Non-Af 21 L, BUN/Creatinine Ratio 13.5, Glucose 143 H, Calcium 8.6, Total Bilirubin 0.40, AST 64 H, ALT 33, Alkaline Phosphatase 93, Troponin I High Sens 133 H*, Total Protein 5.7 L, Albumin 2.1 L, Globulin 3.6, Albumin/Globulin Ratio 0.6 L, Lipase 259 01/23/23 17:05: PT 16.8 H, INR 1.4, APTT 32.9 01/23/23 17:05: B-Natriuretic Peptide 583.8 H 01/23/23 18:40: Urine Color Yellow, Urine Clarity Clear, Urine pH 5.0, Ur Specific [place] 1.020, Urine Protein 100 H, Urine Glucose (UA) Normal, Urine Ketones Negative, Urine Occult Blood 10 H, Urine Nitrite Negative, Urine Bilirubin Negative, Urine Urobilinogen Normal, Ur Leukocyte Esterase 100 H, Urine RBC 0 SEEN, Urine WBC 0-5 SEEN, Ur Squamous Epith Cells 0 SEEN, Urine Bacteria 1+, Urine Mucus 0 SEEN 01/23/23 22:20: Troponin I High Sens 138 H* 01/24/23 03:20: WBC 5.3, RBC 2.75 L, Hgb 7.6 L, Hct 26.3 L, MCV 95.6, MCH 27.6, MCHC 28.9 L, RDW Std Deviation 60.0 H, RDW Coeff of Jordan 17.3 H, Plt Count 77 L, MPV 11.8, Immature Gran % (Auto) 0.200, Neut % (Auto) 70.6 H, Lymph % (Auto) 12.5 L, Lap[place] % (Auto) 14.4 H, Eos % (Auto) 1.7, Baso % (Auto) 0.6, Absolute Neuts (auto) 3.7, Absolute Lymphs (auto) 0.66 L, Nucleated RBC % 0 01/24/23 03:20: Sodium 139, Potassium 4.0, Chloride 106, Carbon Dioxide 30.0, Anion Gap 3 L, BUN 33 H, Creatinine 2.34 H, Estim Creat Clear Calc 15.15, Est GFR (MDRD) Af Amer 26 L, Est GFR (MDRD) Non-Af 22 L, BUN/Creatinine Ratio 14.1, Glucose 120 H, Calcium 8.3 L, Phosphorus 3.8, Magnesium 1.8, Total Bilirubin 0 .30, AST 67 H, ALT 30, Alkaline Phosphatase 85, Total Protein 5.4 L, Albumin 2.0 L, Globulin 3.4, Albumin/Globulin Ratio 0.6 L 01/24/23 03:20: Troponin I High Sens 114 H 01/24/23 06:04: POC Glucose 110 H Micro: Microbiology 01/23/23 18:40 Urine, Clean Catch Urine Culture - Preliminary GNR 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 No acute abnormalities identified in the abdomen/pelvis. 2. Cirrhotic morphology of the liver with prior TIPS procedure. 3. Some body wall edema and a moderate left pleural effusion, but there is no ascites. Electronically Signed: Dane Crowe MD at 18:31 EDT Reading Location ID and State: [facility] / [place] Tel , Service support , Brain CT 01/23/23 16:34 IMPRESSION: 1. No acute intracranial abnormalities. 2. Age-related changes. Electronically Signed: Dane Crowe MD at 18:25 EDT Reading Location ID and State: [facility] / [place] Tel , Service support , Chest X-Ray 01/23/23 17:50 IMPRESSION: Left basilar airspace disease and small pleural effusion. Findings may indicate atelectasis or infection. Electronically Signed: Dane Crowe MD at 18:27 EDT Reading Location ID and State: [facility] / [place] Tel , Service support , Rhythm Strip Rhythm Strip: Sinus Rhythm Rate: 85 Ectopy: None Physical Exam Narrative GENERAL: Cooperative HEENT: Atraumatic; normocephalic EYES; Anicteric, Normal Conjunctiva NECK; supple, normal thyroid, RESPIRATORY: Diminished to auscultation CARDIOVASCULAR:? Regular S1 S2, GI:? soft, normoactive bowel sounds, : No Renal angle tenderness; EXTREMITIES:?? edema, no clubbing, MUSCULOSKELETAL:? no muscle wasting NEURO:? Awake;? no lateralizing signs. SKIN:? No Rash PSYCH; Flat? affect Assessment & Plan Assessment/Plan (1) Fever: PLAN: Plan Patient is a 72-year-old lady with history of cirrhosis of the liver status post TIPS procedure admitted with fever and shortness of breath 1.? Acute hypoxia ? Secondary to combination of left-sided pleural effusion as well as pneumonia. Started on broad-spectrum antibiotic therapy cultures sent 2. Acute cystitis ? Patient urine cultures positive for gram-negative rods patient is on anti biotics awaiting final identification and sensitivities 32.? Acute on chronic congestive heart failure with preserved ejection fraction ? Echo obtained on 01/01/2023 demonstrated EF of 70%.? Patient placed on diuretics, strict input and output, fluid restriction Daily weight as well as supplemental oxygen 4.? Acute metabolic encephalopathy ? Secondary to hypoxia as well as patient underlying infection patient level of sensorium improving compared to admission 5.? Hypertension - Blood pressure controlled, home medications continued with dose adjustment as needed 6.? Kidney disease stage IIIb ? Kidney function at baseline 7.? Diabetes mellitus type II -patient's oral hypoglycemics held. Placed on long acting insulin, Accu-Cheks a.c. and at bedtime and covered with sliding scale insulin 8.? Elevated troponin ? Secondary to demand ischemia from patient hypoxia and underlying infection we will continue with monitoring 9.? Cirrhosis of the liver ? Secondary to nonalcoholic fatty liver disease status post TIPS procedure patient is on rifaximin as well as lactulose continued 10.? Anemia - Secondary to chronic disorder monitoring H&H and transfuse if patient becomes symptomatic or hemoglobin falls below? 7 Patient undergone EGD on 11/28/2022 was found gastritis as well as an oozing gastric ulcer with a visible vessel which was treated with a heater probe 11.? GERD ? Per? history 12.? Dyslipidemia -Patient is on statin therapy, continued at home dose 13.? COPD Aerosol treatments as needed 14.? 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 Resolved.? Patient was apparently managed at [facility] by vascular surgery 15.? DVT prophylaxis ? Bilateral SCDs only avoided the use of chemoprophylaxis in view of patient low platelet counts Time spent in the patient's overall evaluation,decision-making process, review of diagnostic data, adjustment of management, discussion with other providers, nursing nursing and ancillary staff involved in patient's care documentation, 40 minutes Charges/Coding Visit Charges Inpatient E&M: 28790 Subs Hosp L2
[2023-01-24] MEDS: Lactulose 20 GM/30 ML UDC PO ×4 (10:33→22:01)
[2023-01-24] MEDS: Azithromycin 250 MG Tablet 1000 MG PO (10:33)
[2023-01-24] MEDS: Spironolactone 25 MG Tablet PO (10:34)
[2023-01-24] MEDS: metroNIDAZOLE 500 MG Tablet PO ×2 (10:34→22:02)
[2023-01-24] MEDS: Pantoprazole Sodium 40 MG Tablet PO (10:34)
[2023-01-24] MEDS: rifAXIMin 550 MG Tablet PO ×2 (10:34→22:05)
[2023-01-24] MEDS: Iron Polysaccharide Complex 150 MG CAPSULE PO (10:34)
[2023-01-24] MEDS: Labetalol 100 MG Tablet 50 MG PO ×2 (10:34→22:04)
[2023-01-24] MEDS: Bumetanide 1 MG/4 ML Vial IV ×2 (10:38→18:41)
[2023-01-24] MEDS: Nystatin Ointment 1 APPLIC TOPICAL ×2 (10:38→22:03)
[2023-01-24] MEDS: 0.9% Saline Lock 10 ML Syringe IV ×3 (10:42→18:41)
[2023-01-24 11:43] LABS: M R Staph aureus DNA By PCR Negative (Negative); Probe Check PASS; Specimen Processing Control PASS
--- NOTE | 2023-01-24 12:43 | CASEMGMT ---
LISA SALCIDO Readmission Review: Index: Noted this is pt's third admission in the past month. Most recent admission was 01/12 thru 01/20 for tx of COPD, A/C HFpEF, metabolic encephalopathy, hyperkalemia, SKY on CKD 3b. Readmission: 01/23 Dx: Suspected pneumonia, acute hypoxia, Lt pleural effusion, A/C HFpEF, Toxic/metabolic encephalopathy Pt with comorbidities including the above noted dx and also with cirrhosis 2/2 MALDONADO, s/p TIPS procedure and DM II was admitted on the above noted dates. Pt noted to have home O2 at 2l/min from [facility], is active with [facility], and has had an APS referral made at previous visits. Pt is also active with [facility] for SN, PT/OT and SW services. Pt was discharged on 01/20 on her home O2 of 2l/min. Face to face at bedside with pt. Pt sitting on edge of bed with [id number] Jaquelin assisting pt with eating her lunch. Attempts made to engage pt with conversation regarding current care needs at home. Pt states she does not get around much in the home but does state she is able to get to the bathroom. States her son Franklin and her brother assist her with medication management and use pill boxes. Confirmed with [facility] that pt does reside with spouse and not with brother. Pt providing short answers and having difficulty with answers. [facility] suggested this RN CM contact pt's son Franklin for additional information as he is most knowledgeable on pt's care needs. Pt provided this RN LOLY with permission to contact her son Franklin. Call placed to Franklin and VM received. Message left requesting a return call. Will continue to monitor and assist with DC planning needs as they are identified. Angie Kinney RN CM
[2023-01-24 12:55] LABS: Bedside Glucose 92 mg/dL (74-106)
[2023-01-24 17:45] LABS: Bedside Glucose 166 mg/dL (74-106)
[2023-01-24] MEDS: Latanoprost 0.005% 1 Bottle 1 DRP LEFT EYE (22:00)
[2023-01-24] MEDS: Atorvastatin Calcium 40 MG Tablet PO (22:02)
[2023-01-25 00:06] LABS: Bedside Glucose 135 mg/dL (74-106)
[2023-01-25 03:01] VITALS: BP 143/46; PULSE 67; RESP 18; TEMP 35.6; O2SAT 97
[2023-01-25] MEDS: Sodium Bicarbonate 650 MG Tablet 1300 MG PO ×3 (04:49→20:44)
[2023-01-25] MEDS: Acetaminophen 500 MG Tablet 1000 MG PO ×3 (04:49→20:45)
[2023-01-25] MEDS: Heparin Injection (Vial) 5,000 UNIT/ML VIAL 5000 UNIT SC ×3 (04:50→20:46)
[2023-01-25 06:40] LABS: Vancomycin, Random Level 10.9 ug/mL (0.0-15.0)
[2023-01-25 06:45] LABS: Bedside Glucose 94 mg/dL (74-106)
--- NOTE | 2023-01-25 07:26 | PCM.PN.HOSP ---
Reason for Visit Reason for Visit: Diagnoses Tinea pedis (01/23/23) Metabolic encephalopathy (01/23/23) Pneumonia, unspecified organism (01/23/23) Pleural effusion, not elsewhere classified (01/23/23) Hypoxemia (01/23/23) Fever, unspecified (01/23/23) Generalized edema (01/23/23) Other specified abnormalities of plasma proteins (01/23/23) Other specified abnormal findings of blood chemistry (01/23/23) Subjective Subjective Urine cultures came back positive for pansensitive Klebsiella oxytoca. On appropriate antibiotic therapy Objective Data Objective Data Vital Signs: Vital Signs Temp Pulse Resp BP Pulse Ox O2 Del Method O2 Flow Rate 96.1 F L 67 18 143/46 H 97 Nasal Cannula 2 01/25/23 03:01 01/25/23 03:01 01/25/23 03:01 01/25/23 03:01 01/25/23 03:01 01/25/23 03:29 01/25/23 03:01 Oxygen Flow Rate (L/min) 2 Oxygen Delivery Method Nasal Cannula Weight: 74.3 kg Body Mass Index (BMI) 32.0 Intake & Output: Intake and Output for Last 24 Hours 01/23/23 01/24/23 01/25/23 23:59 23:59 23:59 Intake Total 50 / 290 2084 120 / 120 Output Total 0 / 0 Balance 50 / 290 2084 120 / 120 Lab / Micro Data Result Diagrams: 01/24/23 03:20 01/24/23 03:20 Labs: Laboratory Results - last 24 hr 01/24/23 04:32: MRSA (PCR) Negative 01/24/23 12:35: POC Glucose 92 01/24/23 17:20: POC Glucose 166 H 01/24/23 21:58: POC Glucose 135 H 01/25/23 05:55: Random Vancomycin 10.9 01/25/23 06:26: POC Glucose 94 Micro: Microbiology 01/23/23 18:40 Urine, Clean Catch Urine Culture - Final Klebsiella oxytoca 01/23/23 18:40 Urine Catheter - Catheter Legionella Antigen - Final 01/23/23 18:40 Urine Catheter - Catheter Streptococcus pneumoniae Antigen (M - Final 01/23/23 16:20 Nasal Secretion SARS-CoV-2 & FLU Antigen (Rapid) - Final Rhythm Strip Rhythm Strip: Sinus Rhythm Rate: 85 Ectopy: None Physical Exam Narrative GENERAL: Cooperative HEENT: Atraumatic; normocephalic EYES; Anicteric, Normal Conjunctiva NECK; supple, normal thyroid, RESPIRATORY: Diminished to auscultation CARDIOVASCULAR:? Regular S1 S2, GI:? soft, normoactive bowel sounds, : No Renal angle tenderness; EXTREMITIES:?? edema, no clubbing, MUSCULOSKELETAL:? no muscle wasting NEURO:? Awake;? no lateralizing signs. SKIN:? No Rash PSYCH; Flat? affect Assessment & Plan Assessment/Plan (1) Fever: PLAN: Plan Patient is a 72-year-old lady with history of cirrhosis of the liver status post TIPS procedure admitted with fever and shortness of breath 1.? Acute hypoxia ? Secondary to combination of left-sided pleural effusion as well as pneumonia. Started on broad-spectrum antibiotic therapy cultures sent 2. Acute cystitis with Klebsiella oxytoca ? Patient urine cultures positive for gram-negative rods patient is on antibiotics awaiting final identification and sensitivities ?01/25/2023; urine cultures came back positive for Klebsiella oxytoca, patient is on appropriate antibiotic therapy 3.? Acute on chronic congestive heart failure with preserved ejection fraction ? Echo obtained on 01/01/2023 demonstrated EF of 70%.? Patient placed on diuretics, strict input and output, fluid restriction Daily weight as well as supplemental oxygen 4.? Acute metabolic encephalopathy ? Secondary to hypoxia as well as patient underlying infection patient level of sensorium improving compared to admission 5.? Hypertension - Blood pressure controlled, home medications continued with dose adjustment as needed 6.? Kidney disease stage IIIb ? Kidney function at baseline 7.? Diabetes mellitus type II -patient's oral hypoglycemics held. Placed on long acting insulin, Accu-Cheks a.c. and at bedtime and covered with sliding scale insulin 8.? Elevated troponin ? Secondary to demand ischemia from patient hypoxia and underlying infection we will continue with monitoring 9.? Cirrhosis of the liver ? Secondary to nonalcoholic fatty liver disease status post TIPS procedure patient is on rifaximin as well as lactulose continued 10.? Anemia - Secondary to chronic disorder monitoring H&H and transfuse if patient becomes symptomatic or hemoglobin falls below? 7 Patient undergone EGD on 11/28/2022 was found gastritis as well as an oozing gastric ulcer with a visible vessel which was treated with a heater probe 11.? GERD ? Per? history 12.? Dyslipidemia -Patient is on statin therapy, continued at home dose 13.? COPD Aerosol treatments as needed 14.? 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 Resolved.? Patient was apparently managed at [facility] by vascular surgery 15.? DVT prophylaxis ? Bilateral SCDs only avoided the use of chemoprophylaxis in view of patient low platelet counts Time spent in the patient's overall evaluation,decision-making process, review of diagnostic data, adjustment of management, discussion with other providers, nursing nursing and ancillary staff involved in patient's care documentation, 40 minutes Charges/Coding Visit Charges Inpatient E&M: 75882 Subs Hosp L2
[2023-01-25 07:27] VITALS: O2SAT 96
[2023-01-25 08:49] VITALS: BP 152/55; PULSE 79; RESP 16; TEMP 36.8; O2SAT 96
[2023-01-25] MEDS: Spironolactone 25 MG Tablet PO (09:09)
[2023-01-25] MEDS: Iron Polysaccharide Complex 150 MG CAPSULE PO (09:10)
[2023-01-25] MEDS: Lactulose 20 GM/30 ML UDC PO ×4 (09:10→20:40)
[2023-01-25] MEDS: metroNIDAZOLE 500 MG Tablet PO ×2 (09:10→20:42)
[2023-01-25] MEDS: Bumetanide 1 MG/4 ML Vial IV ×2 (09:10→17:46)
[2023-01-25] MEDS: Labetalol 100 MG Tablet 50 MG PO ×2 (09:11→20:45)
[2023-01-25] MEDS: Nystatin Ointment 1 APPLIC TOPICAL ×2 (09:11→20:42)
[2023-01-25] MEDS: Pantoprazole Sodium 40 MG Tablet PO (09:11)
[2023-01-25] MEDS: Azithromycin 250 MG Tablet 1000 MG PO (09:12)
[2023-01-25] MEDS: rifAXIMin 550 MG Tablet PO ×2 (09:12→20:46)
[2023-01-25 09:47] LABS: Absolute Lymphocyte Count 0.76 X10^3/uL (0.83-4.51); Absolute Neutrophil Count 2.5 X10^3/uL (2.0-7.7); Basophil# 0.04 X10^3/uL; Basophil% 0.9 % (0-1); Eosinophil# 0.61 X10^3/uL; Eosinophils% 13.7 % (0-5); Hematocrit 27.8 % (37-47); Hemoglobin 8.1 g/dL (12.0-15.0); Lymphocyte # 0.76 X10^3/ul (0.83-4.51); Lymphocyte % 17.1 % (19-41); Mean Corp Hgb Conc 29.1 g/dL (32-36); Mean Corpuscular Hgb 27.6 pg (27.0-32.0); Mean Corpuscular Volume 94.9 fL (81-99); Mean Platelet Vol. 12.1 fl (6.2-12.0); Monocyte# 0.55 X10^3/uL; Monocyte% 12.4 % (0-10); NRBC Flagged by Analyzer 0 % (0-5); Neutrophil # 2.47 X10^3/uL (2.7-7.7); Neutrophil % 55.5 % (47-70); POSITIVE COUNT YES; Platelet Count 90 K/mm3 (150-450); RBC Distribution Width CV 17.2 % (11.6-14.6); RBC Distribution Width SD 59.7 fl (35.1-43.9); Red Blood Count 2.93 M/mm3 (4.2-5.4); White Blood Count 4.5 K/mm3 (4.4-11.0)
[2023-01-25 10:10] LABS: ALB/GLOB Ratio 0.6 RATIO (0.9-2.4); AST(SGOT) 84 U/L (15-37); Alanine Aminotransfer ALT/SGPT 37 U/L (13-56); Albumin, Serum 1.9 g/dL (3.2-5.0); Alkaline Phosphatase 89 U/L (45-117); Anion Gap 3 (5-15); BUN 32 mg/dL (7-18); BUN/Creat Ratio 14.3 RATIO (10-20); Calcium,Total 8.2 mg/dL (8.5-10.1); Chloride 109 mmol/L (98-107); Creatinine, Serum 2.24 mg/dL (0.55-1.02); EST Glomerular Filtration Rate 23 mL/min (>60); Est Glom Filt Rate - Afr Amer 27 mL/min (>60); Estimated Creatinine Clearance 15.83 ml/min; Globulin 3.4 g/dL (2.2-4.2); Glucose 138 mg/dL (74-106); Magnesium 1.8 mg/dL (1.6-2.6); Phosphorus 3.2 mg/dL (2.5-4.9); Potassium 4.3 mmol/L (3.5-5.1); Protein, Total 5.3 g/dL (6.4-8.2); Sodium Level 139 mmol/L (136-145)
[2023-01-25] MEDS: Ipratropium/Albuterol Sulfate 3 ML AMPUL.NEB INHALATION ×2 (10:33→19:43)
[2023-01-25] MEDS: Vancomycin IV 500 MG/100 ML BAG 100 MG IV (11:13)
[2023-01-25 12:05] LABS: Bedside Glucose 131 mg/dL (74-106)
[2023-01-25 14:50] VITALS: BP 150/58; PULSE 77; RESP 16; TEMP 36.6; O2SAT 98
[2023-01-25 18:46] LABS: Bedside Glucose 118 mg/dL (74-106)
--- NOTE | 2023-01-25 19:18 | PCM.RX.CS ---
Consult Pharmacy has been consulted to manage selected antiobiotic: Vancomycin Type of Consult: Follow-up Labs: Sodium 139 mmol/L (136-145) 01/25/23 09:37 Potassium 4.3 mmol/L (3.5-5.1) 01/25/23 09:37 Chloride 109 mmol/L (98-107) H 01/25/23 09:37 Carbon Dioxide 27.0 mmol/L (21.0-32.0) 01/25/23 09:37 Anion Gap 3 (5-15) L 01/25/23 09:37 BUN 32 mg/dL (7-18) H 01/25/23 09:37 Creatinine 2.24 mg/dL (0.55-1.02) H 01/25/23 09:37 Est GFR (MDRD) Af Amer 27 mL/min (>60) L 01/25/23 09:37 Est GFR (MDRD) Non-Af 23 mL/min (>60) L 01/25/23 09:37 BUN/Creatinine Ratio 14.3 RATIO (10-20) 01/25/23 09:37 Glucose 138 mg/dL (74-106) H 01/25/23 09:37 Random Vancomycin 10.9 ug/mL (0.0-15.0) 01/25/23 05:55 Microbiology: Microbiology 01/23/23 18:40 Urine, Clean Catch Urine Culture - Final Klebsiella oxytoca 01/23/23 18:40 Urine Catheter - Catheter Legionella Antigen - Final 01/23/23 18:40 Urine Catheter - Catheter Streptococcus pneumoniae Antigen (M - Final 01/23/23 16:20 Nasal Secretion SARS-CoV-2 & FLU Antigen (Rapid) - Final Goal Trough: 15-20 mcg/mL Pharmacy Plan for Drug Dosing: VANCOMYCIN LEVEL RECEIVED Current Vancomycin Dose: random level due to renal function Number of Doses Received: x1 1250mg dose on 01/23/23 at 2245 Vancomycin Level: random level 10.9 Hours Since Last Dose: 31 Renal Function: SrCr 2.24 Renal Function Trend: Slowly decreasing (was 2.37) Lab/Micro: Vancomycin Plan/Comments: based off of pts previous Vancomycin doses of 750mg q24h which have yielded a high trough, recommend starting Vancomycin 500mg q24h and checking trough level prior to 3rd dose. Pending Level: 01/27/23 at 0830 Pharmacy Service will continue to monitor and adjust dosing as required. Follow-Up Labs: Trough Vancomycin - 01/27/23 at 0830
[2023-01-25 19:45] VITALS: PULSE 71; RESP 20; O2SAT 100
[2023-01-25 20:21] VITALS: BP 134/66; PULSE 81; RESP 18; TEMP 36.4; O2SAT 100
[2023-01-25] MEDS: Latanoprost 0.005% 1 Bottle 1 DRP LEFT EYE (20:40)
[2023-01-25] MEDS: Atorvastatin Calcium 40 MG Tablet PO (20:42)
[2023-01-25] MEDS: 0.9% Saline Lock 10 ML Syringe IV (22:45)
[2023-01-25] MEDS: Ondansetron 4 MG/2 ML Vial IV (22:45)
[2023-01-26] VITALS (7 sets, daily range): BP systolic 133–157; BP diastolic 48–89; PULSE 71–80; RESP 18–20; TEMP 36.4–37.1; O2SAT 98–100
--- NOTE | 2023-01-26 | FLU_PTH ---
PATIENT: MICHAEL HENLEY LOC: [facility] U#:[id number] AGE/SX: 72/F ROOM: [facility] RE01/23/[address]: Dr. Josiah Merchant DO : 1950 BED: 1 DIS: 01/28/2023 SPEC #: [id number] RECD: 01/26/23 14:34 STATUS: RICK RERenetta #: [id number] HORACIO: 01/26/23 00:[address]: Josiah Merchant DEPT: CYTOLOGY RECD BY: Darci Becerril ENTERED: 01/27/23 09:56 SP TYPE: Fluid OTHR DR: MD Dr. Irma Osei DO Dr. Mark Elderbrock, MD Tissues: THORACIC FLUID Procedures: Special Stain Group II Surgery Specimen Level IV Cytospin Fluid HEADER OPERATION: Ultrasound-guided thoracentesis, left PRE-OP DIAGNOSIS: Left pleural effusion TISSUE SUBMITTED: Thoracentesis fluid for cytology DIAGNOSIS CYTOLOGY Thoracentesis fluid for cytology (cytospin and cell block): Negative for malignant cells. AM:cori 01/28/2023 CYTOLOGY STUDY Slides are reviewed. CYTOLOGY GROSS Received is 100 ml of red cloudy fluid labeled with the patient's name and and designated per the requisition as thoracentesis. Submitted for cytology preparation including cell block. / cori 01/27/2023 TC:5 CPT: 01943, 52538
[2023-01-26 01:05] LABS: Bedside Glucose 153 mg/dL (74-106)
[2023-01-26] MEDS: Ipratropium/Albuterol Sulfate 3 ML AMPUL.NEB INHALATION ×2 (02:00→07:27)
[2023-01-26] MEDS: Heparin Injection (Vial) 5,000 UNIT/ML VIAL 5000 UNIT SC ×2 (05:31→22:01)
[2023-01-26] MEDS: Sodium Bicarbonate 650 MG Tablet 1300 MG PO ×3 (05:32→22:02)
[2023-01-26] MEDS: Acetaminophen 500 MG Tablet 1000 MG PO ×3 (05:32→22:03)
[2023-01-26] MEDS: Clotrimazole/Betamethasone 1 Tube 1 APPLIC TOPICAL ×2 (05:35→22:00)
[2023-01-26 06:22] LABS: Absolute Lymphocyte Count 1.08 X10^3/uL (0.83-4.51); Absolute Neutrophil Count 1.8 X10^3/uL (2.0-7.7); Basophil# 0.05 X10^3/uL; Basophil% 1.2 % (0-1); Eosinophil# 0.74 X10^3/uL; Hematocrit 25.9 % (37-47); Hemoglobin 7.6 g/dL (12.0-15.0); Lymphocyte # 1.08 X10^3/ul (0.83-4.51); Lymphocyte % 26.2 % (19-41); Mean Corp Hgb Conc 29.3 g/dL (32-36); Mean Corpuscular Hgb 27.7 pg (27.0-32.0); Mean Corpuscular Volume 94.5 fL (81-99); Mean Platelet Vol. 11.6 fl (6.2-12.0); Monocyte# 0.44 X10^3/uL; Monocyte% 10.7 % (0-10); NRBC Flagged by Analyzer 0 % (0-5); Neutrophil % 43.7 % (47-70); POSITIVE COUNT YES; RBC Distribution Width CV 17.2 % (11.6-14.6); RBC Distribution Width SD 59.7 fl (35.1-43.9); Red Blood Count 2.74 M/mm3 (4.2-5.4); White Blood Count 4.1 K/mm3 (4.4-11.0)
[2023-01-26 06:47] LABS: Anion Gap 2 (5-15); BUN 30 mg/dL (7-18); Calcium,Total 8.1 mg/dL (8.5-10.1); Chloride 111 mmol/L (98-107); EST Glomerular Filtration Rate 26 mL/min (>60); Est Glom Filt Rate - Afr Amer 31 mL/min (>60); Estimated Creatinine Clearance 17.73 ml/min; Glucose 101 mg/dL (74-106); Magnesium 1.6 mg/dL (1.6-2.6); Potassium 4.1 mmol/L (3.5-5.1); Sodium Level 140 mmol/L (136-145)
[2023-01-26 06:48] LABS: Platelet Count 89 K/mm3 (150-450)
[2023-01-26 07:02] LABS: International Normalized Ratio 1.4; Prothrombin Time (Protime)PT. 16.9 SECONDS (11.7-14.9)
[2023-01-26 07:15] LABS: Bedside Glucose 81 mg/dL (74-106)
--- NOTE | 2023-01-26 09:03 | RAD_ITS ---
STUDY: X-RAY CHEST REASON FOR EXAM: Female, 72 years old. Fever and cough TECHNIQUE: PA and lateral views of the chest. COMPARISON: 01/23/2023 FINDINGS: EKG leads overlie the chest Lungs are expanded. Overall improvement noted since the previous study with decreased pulmonary vascular congestion noted. However, there is persistent opacification in the left lung bases likely combination of effusion atelectasis and perhaps infiltrate. Right lung is clear. Normal size heart. Normal mediastinum and ivan. Normal visualized pulmonary arteries. There is atherosclerotic calcification of the aortic arch with tortuosity. There are diffuse degenerative changes of the visualized thoracic spine. There is degenerative osteoarthritis of the bilateral shoulders. There is no demonstrated abnormality of the visualized soft tissue structures of the upper abdomen. RAD/Chest PA and Lateral IMPRESSION: Resolution of previously noted interstitial edema since the previous study. Persistent opacification in the left lung bases likely combination of effusion, atelectasis, and perhaps infiltrate. Follow-up recommended to assure resolution Electronically Signed: Jose Iniguez MD at 10:08 EDT ,
[2023-01-26 09:11] LABS: Iron 27 ug/dL (50-170); Iron Binding Capacity,Total 217 ug/dL (250-450); PERCENT IRON SATURATION 12.4 % (15.0-55.0)
[2023-01-26] MEDS: Vancomycin IV 500 MG/100 ML BAG 100 MG IV (09:47)
[2023-01-26] MEDS: metroNIDAZOLE 500 MG Tablet PO ×2 (09:58→22:01)
[2023-01-26] MEDS: Lactulose 20 GM/30 ML UDC PO ×4 (09:58→22:00)
[2023-01-26] MEDS: Spironolactone 25 MG Tablet PO (09:58)
[2023-01-26] MEDS: Bumetanide 1 MG/4 ML Vial IV ×2 (09:58→17:00)
[2023-01-26] MEDS: Iron Polysaccharide Complex 150 MG CAPSULE PO (09:58)
[2023-01-26] MEDS: Azithromycin 250 MG Tablet 1000 MG PO (09:59)
[2023-01-26] MEDS: Pantoprazole Sodium 40 MG Tablet PO (09:59)
[2023-01-26] MEDS: rifAXIMin 550 MG Tablet PO ×2 (09:59→22:02)
[2023-01-26] MEDS: Labetalol 100 MG Tablet 50 MG PO ×2 (09:59→22:02)
[2023-01-26] MEDS: Nystatin Ointment 1 APPLIC TOPICAL (10:00)
[2023-01-26 13:30] LABS: Bedside Glucose 142 mg/dL (74-106)
--- NOTE | 2023-01-26 14:35 | RAD_ITS ---
STUDY: X-RAY CHEST REASON FOR EXAM: Female, 72 years old. Postthoracentesis TECHNIQUE: Portable inspiration and expiration views of the chest COMPARISON: Earlier today FINDINGS: EKG leads overlie the chest No postprocedural pneumothorax noted. Lungs are expanded and the previous noted left pleural effusion has nearly resolved. No demonstrated infiltrate or atelectasis. Normal size heart. Normal mediastinum and ivan. Normal visualized pulmonary arteries. There is atherosclerotic calcification of the aortic arch with tortuosity. There are diffuse degenerative changes of the visualized thoracic spine. Normal visualized ribs, clavicles, and shoulders. There is no demonstrated abnormality of the visualized soft tissue structures of the upper abdomen. RAD/Chest Insp/Exp 2 View IMPRESSION: Near complete resolution of the previously noted left pleural effusion after thoracentesis. No residual infiltrate or atelectasis noted No pneumothorax Electronically Signed: Jose Iniguez MD at 14:54 EDT ,
[2023-01-26 15:02] LABS: Cytology, Body Fluid / CSF SEE PATHOLOGY REPORT
--- NOTE | 2023-01-26 15:08 | CASEMGMT ---
Social Work SW spoke with physician who states he spoke with pt and family and pt is agreeable to referral to [facility]. SW spoke with Pt cyrus Treadwell who confirms they would like to speak with hospice and she is personal care assistant to set up meeting. Clinicals faxed to [facility]. Phone call to [facility] and referral made. SW spoke with Cristiana and [facility] will reach out to family to set up appointment and notify SW of appointment time. Phone call to [facility] and spoke with Lance. Pt's [employer] manager is Skye and pt has emergency response system and no other current services through [facility]. Plan: Hospice referral. SAVANA Clemens
--- NOTE | 2023-01-26 15:31 | CHAPLAIN ---
Type of Pastoral Visit _x__ Initial Visit ___ Follow-up Visit ___ On-call Visit ___ General Patient Visit ___ Spiritual Assessment ___ Family Conference ___ Bereavement ___ Rapid Response ___ Code Blue ___ Other (describe below) Pastoral Care Referral From _x__ Patient ___ Family ___ Nurse ___ Physician ___ Podiatric Medicine Professor ___ Garment Looper ___ Other (describe below) Sacrament/Intervention _x__ Active listening ___ Anointing ___ Mormonism ___ Bereavement ___ Communion ___ Deepa exploration ___ ___ Life review _x__ Prayer ___ Reconciliation ___ Sacrament of Sick _x__ Supportive presence ___ Wedding ___ Other (describe below) Pastoral Comments patient and two daughters are in room; pt has been seen in several recent admissions; daughters state that mom is anxious; explored causes of her anxiety and pt talks about test and fluid extraction taking place this afternoon - in about 10 minutes'; pt agrees that timing is important and that a prayer could be helpful to give her calm; pt is expressive of appreciation for visit;
[2023-01-26 15:40] LABS: Glucose, Body Fluid 174 mg/dL (40-70); LDH,Body Fluid 117 Units/l (Not Establ.); Protein, Body Fluid 1.5 g/dL (Not Establ.)
[2023-01-26 18:10] LABS: Bedside Glucose 149 mg/dL (74-106)
--- NOTE | 2023-01-26 19:45 | PN.HOSP_ITS ---
Reason for Visit Reason for Visit: Diagnoses Tinea pedis (01/23/23) Metabolic encephalopathy (01/23/23) Pneumonia, unspecified organism (01/23/23) Pleural effusion, not elsewhere classified (01/23/23) Hypoxemia (01/23/23) Fever, unspecified (01/23/23) Generalized edema (01/23/23) Other specified abnormalities of plasma proteins (01/23/23) Other specified abnormal findings of blood chemistry (01/23/23) Subjective Subjective Was seen and examined today, I talked briefly with her and her family who was in the room at the time my exam, patient was set up to see hospice as an outpatient but wind up coming into the hospital in the meantime, I asked the patient and the patient's family if they would consider seeing hospice in the hospital while she was here and they said yes. Patient had approximately 400 cc of fluid removed from the left hemithorax. Patient appears alert today, she states she still feels weak however, I told her that I would reevaluate her tomorrow for possible discharge tomorrow. Objective Data Objective Data Vital Signs: Vital Signs Temp Pulse Resp BP Pulse Ox O2 Del Method O2 Flow Rate 98.8 F 72 18 157/54 H 100 Nasal Cannula 3 01/26/23 15:00 01/26/23 15:00 01/26/23 15:00 01/26/23 15:00 01/26/23 15:00 01/26/23 15:13 01/26/23 15:13 Oxygen Flow Rate (L/min) 3 Oxygen Delivery Method Nasal Cannula Weight: 74.3 kg Body Mass Index (BMI) 32.0 Intake & Output: Intake and Output for Last 24 Hours 01/24/23 01/25/23 01/26/23 23:59 23:59 23:59 Intake Total 2084 / 2084 1060 / 1060 1080 / 1080 Output Total 0 / 0 Balance 2084 / 2084 1060 / 1060 1080 / 1080 Lab / Micro Data Result Diagrams: 01/27/23 05:20 01/26/23 06:00 Labs: Laboratory Results - last 24 hr 01/25/23 20:38: POC Glucose 153 H 01/26/23 06:00: WBC 4.1 L, RBC 2.74 L, Hgb 7.6 L, Hct 25.9 L, MCV 94.5, MCH 27.7, MCHC 29.3 L, RDW Std Deviation 59.7 H, RDW Coeff of Jordan 17.2 H, Plt Count 89 L, MPV 11.6, Immature Gran % (Auto) 0.200, Neut % (Auto) 43.7 L, Lymph % (Auto) 26.2, [place] % (Auto) 10.7 H, Eos % (Auto) 18.0 H, Baso % (Auto) 1.2 H, Absolute Neuts (auto) 1.8 L, Absolute Lymphs (auto) 1.08, Nucleated RBC % 0 01/26/23 06:00: PT 16.9 H, INR 1.4 01/26/23 06:00: Sodium 140, Potassium 4.1, Chloride 111 H, Carbon Dioxide 27.0, Anion Gap 2 L, BUN 30 H, Creatinine 2.00 H, Estim Creat Clear Calc 17.73, Est GFR (MDRD) Af Amer 31 L, Est GFR (MDRD) Non-Af 26 L, BUN/Creatinine Ratio 15.0, Glucose 101, Calcium 8.1 L, Magnesium 1.6 01/26/23 06:00: Iron 27 L, TIBC 217 L, Iron Saturation 12.4 L 01/26/23 06:49: POC Glucose 81 01/26/23 11:25: POC Glucose 142 H 01/26/23 14:57: Fluid Glucose 174 H, Fluid Total Protein 1.5, Fluid LDH 117 01/26/23 16:56: POC Glucose 149 H Micro: Microbiology 01/23/23 17:00 Blood Culture (Wb) - Anticubital Left Blood Culture - Preliminary No growth in 48 hours. 01/23/23 16:20 Blood Culture (Wb) - Anticubital Left Blood Culture - Preliminary No growth in 48 hours. 01/23/23 18:40 Urine, Clean Catch Urine Culture - Final Klebsiella oxytoca 01/23/23 18:40 Urine Catheter - Catheter Legionella Antigen - Final 01/23/23 18:40 Urine Catheter - Catheter Streptococcus pneumoniae Antigen (M - Final 01/23/23 16:20 Nasal Secretion SARS-CoV-2 & FLU Antigen (Rapid) - Final Radiography Diagnostic Testing: Radiology Impression Chest X-Ray 01/26/23 09:03 IMPRESSION: Resolution of previously noted interstitial edema since the previous study. Persistent opacification in the left lung bases likely combination of effusion, atelectasis, and perhaps infiltrate. Follow-up recommended to assure resolution Electronically Signed: Jose Iniguez MD at 10:08 EDT , Chest X-Ray 01/26/23 14:35 IMPRESSION: Near complete resolution of the previously noted left pleural effusion after thoracentesis. No residual infiltrate or atelectasis noted No pneumothorax Electronically Signed: Jose Iniguez MD at 14:54 EDT , Thoracentesis Ultrasound 01/26/23 21:41 IMPRESSION: Successful sonographically guided left thoracentesis Electronically Signed: Jose Iniguez MD at 15:43 EDT , Rhythm Strip Rhythm Strip: Sinus Rhythm Rate: 85 Ectopy: None Physical Exam Const alert, oriented x3 and no apparent distress General Appearance: cooperative, well kempt and well developed Orientation / Consciousness: awake, oriented to person, oriented to place and oriented to time HEENT normocephalic and moist oral mucous membranes Eyes PERRL, EOMs intact bilaterally and conjunctivae normal Neck supple, no JVD, thyroid normal and no carotid bruits General: trachea midline Resp normal respiratory effort, no retractions and no use of accessory muscles Resp Narrative: Decreased breath sounds were noted at the bases bilaterally Auscultation: Negative for rales, rhonchi or wheezes Cardio regular rate, regular rhythm, S1 normal heart sound, S2 normal heart sound, no murmurs, no rub and no gallops GI normal to inspection, nondistended, normoactive bowel sounds, soft to palpation, non-tender and non-distended Extremity no clubbing, cyanosis or edema Skin no rashes or lesions noted General Skin Exam: no breakdown Neuro oriented x3, CN's II-XII intact bilaterally, moves all extremities, no focal motor deficits and no sensory deficits noted Sensorium / Orientation: awake and alert Speech: speech normal Psych affect normal Assessment & Plan Assessment/Plan (1) Hypoxia: PLAN: Plan 1. Acute hypoxia on a backdrop of chronic hypoxic respiratory failure-secondary to pneumonia and left-sided pleural effusion, again patient underwent a thoracentesis today, she will be reevaluated tomorrow, I have elected to stop her vancomycin, I do not believe she needs this antibiotic coverage. #2 acute cystitis with Klebsiella oxytocin-patient is on IV antibiotics, I will be changing to oral antibiotic if possible, patient lists many antibiotic allergies unfortunately #3 acute on chronic diastolic congestive heart failure-continue present treatment, medications may need to be adjusted #4 type 2 diabetes-patient's blood sugars will be monitored, sliding scale insulin will be used #5 cirrhosis of the liver-secondary to nonalcoholic fatty liver disease, patient's medications which were prescribed by GI will be continued #6 metabolic encephalopathy-this appears to be cleared at this time, this could be a combination of underlying chronic hepatic encephalopathy and her other medical problems during this admission #7 acute debility-patient is being seen by PT and OT, I will reevaluate her tomorrow for possible discharge if she remains medically stable #8 community-acquired pneumonia-etiology unclear, again patient is on cefepime and she chronically takes Zithromax due to her cirrhosis. Total clinical time spent by myself addressing the patient's medical issues, reviewing all of her data, and collaborating with patient's care team: 38 minutes Charges/Coding Visit Charges Inpatient E&M: 24576 Subs Hosp L2
--- NOTE | 2023-01-26 21:41 | US_ITS ---
EXAM: Ultrasound-guided left thoracentesis HISTORY: L pleural effusion COMPARISON: Chest x-ray from earlier today Technique: Ultrasound-guided. FINDINGS: After informed consent was obtained, including risks and benefits of the procedure including possibility of pneumothorax and chest tube insertion, an appropriate site for left sided thoracentesis was determined using sonographic guidance. The area was prepped and draped in a sterile manner and 2% Xylocaine was used as local anesthetic. Under sonographic guidance, a valved drainage catheter was advanced into the left hemithorax. Approximately 100 mL of blood tinged serous fluid was withdrawn from the left hemithorax and sent to the lab for further evaluation. The tube was then hooked to suction and another 280 mL of blood-tinged serous fluid was withdrawn. Patient end of the procedure early due to increasing pain. No post procedure pneumothorax was noted on the follow-up chest x-ray, the pleural effusion and decreased in size from the previous study US/Thoracentesis W US IMPRESSION: Successful sonographically guided left thoracentesis Electronically Signed: Jose Iniguez MD at 15:43 EDT ,
[2023-01-26] MEDS: Latanoprost 0.005% 1 Bottle 1 DRP LEFT EYE (22:00)
[2023-01-26] MEDS: Atorvastatin Calcium 40 MG Tablet PO (22:01)
[2023-01-27] MEDS: Nystatin Ointment 1 APPLIC TOPICAL ×3 (00:04→21:26)
[2023-01-27 01:15] LABS: Bedside Glucose 137 mg/dL (74-106)
[2023-01-27 01:51] VITALS: BP 154/43; PULSE 86; RESP 18; TEMP 36.4; O2SAT 99
[2023-01-27] MEDS: Heparin Injection (Vial) 5,000 UNIT/ML VIAL 5000 UNIT SC ×3 (05:11→21:25)
[2023-01-27] MEDS: Sodium Bicarbonate 650 MG Tablet 1300 MG PO ×3 (05:12→21:26)
[2023-01-27] MEDS: Acetaminophen 500 MG Tablet 1000 MG PO ×3 (05:12→21:27)
[2023-01-27 05:31] LABS: Absolute Lymphocyte Count 1.05 X10^3/uL (0.83-4.51); Absolute Neutrophil Count 2.2 X10^3/uL (2.0-7.7); Basophil# 0.03 X10^3/uL; Basophil% 0.7 % (0-1); Eosinophil# 0.41 X10^3/uL; Hematocrit 24.6 % (37-47); Hemoglobin 7.3 g/dL (12.0-15.0); Lymphocyte # 1.05 X10^3/ul (0.83-4.51); Lymphocyte % 25.5 % (19-41); Mean Corp Hgb Conc 29.7 g/dL (32-36); Mean Corpuscular Volume 94.3 fL (81-99); Mean Platelet Vol. 11.1 fl (6.2-12.0); Monocyte% 9.7 % (0-10); NRBC Flagged by Analyzer 0 % (0-5); Neutrophil # 2.21 X10^3/uL (2.7-7.7); Neutrophil % 53.9 % (47-70); POSITIVE COUNT YES; RBC Distribution Width CV 17.1 % (11.6-14.6); RBC Distribution Width SD 58.6 fl (35.1-43.9); Red Blood Count 2.61 M/mm3 (4.2-5.4); White Blood Count 4.1 K/mm3 (4.4-11.0)
[2023-01-27 05:34] LABS: Platelet Count 87 K/mm3 (150-450)
[2023-01-27 06:17] VITALS: BP 140/57; PULSE 81; RESP 20; TEMP 36.9; O2SAT 100
[2023-01-27] MEDS: Clotrimazole/Betamethasone 1 Tube 1 APPLIC TOPICAL ×2 (06:19→21:29)
[2023-01-27 07:20] LABS: Bedside Glucose 140 mg/dL (74-106)
--- NOTE | 2023-01-27 08:32 | CASEMGMT ---
Social Work ARCENIO received VM From Grecia at [facility]. Grecia informed that Deanne, from Hospice would be here today (01/27/23) to meet with pt for assessment. ARCENIO Davidson updated via Backline. SAVANA Toledo
[2023-01-27] MEDS: Lidocaine 2% (20 ml mdv) 20 ML Vial INFILT (08:34)
[2023-01-27 08:37] LABS: Body Fluid Polynuclear WBC # 0.001 10^3/uL
[2023-01-27 09:31] LABS: Appearance/Body Fluid SL CLDY; Auto B Fluid Analyzer BKGD Ct COUNTS W/IN LIMITS (W/IN LIMITS); Color/Body Fluid SLIGHTLY PINK; Source- Body Fluid THORACENTESIS
[2023-01-27] MEDS: Spironolactone 25 MG Tablet PO (10:41)
[2023-01-27] MEDS: Iron Polysaccharide Complex 150 MG CAPSULE PO (10:41)
[2023-01-27] MEDS: metroNIDAZOLE 500 MG Tablet PO ×2 (10:41→21:25)
[2023-01-27] MEDS: Azithromycin 250 MG Tablet 1000 MG PO (10:41)
[2023-01-27] MEDS: Lactulose 20 GM/30 ML UDC PO ×4 (10:41→21:24)
[2023-01-27] MEDS: Bumetanide 1 MG/4 ML Vial IV ×2 (10:41→16:56)
[2023-01-27 10:42] LABS: Red Cell Count/Body Fluid 13760 /mm3; White Blood Count/Body Fluid 10 /mm3
[2023-01-27] MEDS: Pantoprazole Sodium 40 MG Tablet PO (10:42)
[2023-01-27] MEDS: Labetalol 100 MG Tablet 50 MG PO ×2 (10:43→21:27)
[2023-01-27] MEDS: rifAXIMin 550 MG Tablet PO ×2 (10:43→21:28)
[2023-01-27] MEDS: 0.9% Saline Lock 10 ML Syringe IV (10:52)
[2023-01-27 10:58] LABS: Lymphocytes 44 %; Mesothelial Cells 5 %; Monocytes 38 %; Neutrophil (Segs) 11 %; Other Cell Type/BF 1 %; Plasma Cell/BodyFluid 1 %
[2023-01-27 10:59] LABS: Body Fluid QC Type(s) BF1Q
[2023-01-27] MEDS: Insulin Lispro 100 UNIT/ML INSULN.PEN SC ×2 (12:04→16:50)
[2023-01-27 12:11] VITALS: BP 150/40; PULSE 72; RESP 20; TEMP 36.7; O2SAT 99
[2023-01-27 12:20] LABS: Bedside Glucose 152 mg/dL (74-106)
[2023-01-27] MEDS: Ipratropium/Albuterol Sulfate 3 ML AMPUL.NEB INHALATION ×2 (14:11→22:17)
--- NOTE | 2023-01-27 15:44 | CASEMGMT ---
Patient signed with Hospice and her plan is to go home on [facility]. SW notified physician. Lety Velez RUBBER DOWN ETIENNE
[2023-01-27 17:00] VITALS: BP 140/66; PULSE 66; RESP 18; TEMP 36.6; O2SAT 99
[2023-01-27 17:10] LABS: Bedside Glucose 159 mg/dL (74-106)
[2023-01-27 21:21] VITALS: BP 143/97; PULSE 80; RESP 18; TEMP 36; O2SAT 95
--- NOTE | 2023-01-27 21:22 | PN.HOSP_ITS ---
Reason for Visit Reason for Visit: Diagnoses Tinea pedis (01/23/23) Metabolic encephalopathy (01/23/23) Pneumonia, unspecified organism (01/23/23) Pleural effusion, not elsewhere classified (01/23/23) Hypoxemia (01/23/23) Fever, unspecified (01/23/23) Generalized edema (01/23/23) Other specified abnormalities of plasma proteins (01/23/23) Other specified abnormal findings of blood chemistry (01/23/23) Subjective Subjective Patient was seen and examined today, the patient and her family met with hospice today and have agreed to become active with hospice at home, they requested the patient be kept here until tomorrow when they can get their home rearrange for the patient to come home. Patient remains stable at this time, she is alert and does not appear to be in any distress. Her hemoglobin today remained stable. Objective Data Objective Data Vital Signs: Vital Signs Temp Pulse Resp BP Pulse Ox O2 Del Method O2 Flow Rate 96.8 F L 80 18 143/97 H 95 Nasal Cannula 2 01/27/23 21:21 01/27/23 21:21 01/27/23 21:21 01/27/23 21:21 01/27/23 21:21 01/27/23 21:21 01/27/23 21:21 Oxygen Flow Rate (L/min) 2 Oxygen Delivery Method Nasal Cannula Weight: 74.3 kg Body Mass Index (BMI) 32.0 Intake & Output: Intake and Output for Last 24 Hours 01/25/23 01/26/23 01/27/23 23:59 23:59 23:59 Intake Total 1060 / 1060 1080 / 1320 460 / 460 Balance 1060 / 1060 1080 / 1320 460 / 460 Lab / Micro Data Result Diagrams: 01/27/23 05:20 01/26/23 06:00 Labs: Laboratory Results - last 24 hr 01/26/23 14:58: Fluid Source THORACENTESIS, Fluid Color SLIGHTLY PINK, Fluid Appearance SL CLDY, Fluid WBC 10, Fluid [place] [address], Fluid Tot Cell Count TNP, Fld Polynuclear WBCs # 0.001, Fld Polynuclear WBCs % 100.0, Fluid Mononuclear WBCs 0.000, Fld Mononuclear WBCs % 0.0, Fluid Neutrophils 11, Fluid Lymphocytes 44, Fluid Monocytes 38, Fluid Plasma Cells 1, Fld Mesothelial Cells 5, Fluid Other Cells 1, Fl Pathologist Comment May follow, Fluid Comment 2 SEE COMMENT 01/26/23 21:54: POC Glucose 137 H 01/27/23 05:20: WBC 4.1 L, RBC 2.61 L, Hgb 7.3 L, Hct 24.6 L, MCV 94.3, MCH 28.0, MCHC 29.7 L, RDW Std Deviation 58.6 H, RDW Coeff of Jordan 17.1 H, Plt Count 87 L, MPV 11.1, Immature Gran % (Auto) 0.200, Neut % (Auto) 53.9, Lymph % (Auto) 25.5, [place] % (Auto) 9.7, Eos % (Auto) 10.0 H, Baso % (Auto) 0.7, Absolute Neuts (auto) 2.2, Absolute Lymphs (auto) 1.05, Nucleated RBC % 0 01/27/23 06:17: POC Glucose 140 H 01/27/23 12:00: POC Glucose 152 H 01/27/23 16:48: POC Glucose 159 H Micro: Microbiology 01/26/23 14:59 Fluid - Thoracentesis Fluid Gram Stain - Final 01/26/23 14:59 Fluid - Thoracentesis Fluid Body Fluid Culture - Preliminary No growth-Final to follow 01/23/23 17:00 Blood Culture (Wb) - Anticubital Left Blood Culture - Preliminary No growth in 48 hours. 01/23/23 16:20 Blood Culture (Wb) - Anticubital Left Blood Culture - Preliminary No growth in 48 hours. 01/23/23 18:40 Urine, Clean Catch Urine Culture - Final Klebsiella oxytoca 01/23/23 18:40 Urine Catheter - Catheter Legionella Antigen - Final 01/23/23 18:40 Urine Catheter - Catheter Streptococcus pneumoniae Antigen (M - Final 01/23/23 16:20 Nasal Secretion SARS-CoV-2 & FLU Antigen (Rapid) - Final Rhythm Strip Rhythm Strip: Sinus Rhythm Rate: 85 Ectopy: None Physical Exam Narrative alert, oriented x3 and no apparent distress General Appearance: cooperative, well kempt and well developed Orientation / Consciousness: awake, oriented to person, oriented to place and oriented to time HEENT normocephalic and moist oral mucous membranes Eyes PERRL, EOMs intact bilaterally and conjunctivae normal Neck supple, no JVD, thyroid normal and no carotid bruits General: trachea midline Resp normal respiratory effort, no retractions and no use of accessory muscles Resp Narrative: Decreased breath sounds were noted at the bases bilaterally Auscultation: Negative for rales, rhonchi or wheezes Cardio regular rate, regular rhythm, S1 normal heart sound, S2 normal heart sound, no murmurs, no rub and no gallops GI normal to inspection, nondistended, normoactive bowel sounds, soft to palpation, non-tender and non-distended Extremity no clubbing, cyanosis or edema Skin no rashes or lesions noted General Skin Exam: no breakdown Neuro oriented x3, CN's II-XII intact bilaterally, moves all extremities, no focal motor deficits and no sensory deficits noted Sensorium / Orientation: awake and alert Speech: speech normal Psych affect normal Assessment & Plan Assessment/Plan (1) Metabolic encephalopathy: (2) Hypoxia: PLAN: Plan 1. Acute hypoxia on a backdrop of chronic hypoxic respiratory failure-secondary to pneumonia and left-sided pleural effusion, patient has no respiratory complaints at this time, she is comfortable presently, again patient has agreed to become active with hospice at home #2 acute cystitis with Klebsiella oxytocin-patient is on IV antibiotics, I will be changing to oral antibiotic when she is discharged #3 acute on chronic diastolic congestive heart failure-continue present treatment, medications may need to be adjusted #4 type 2 diabetes-patient's blood sugars will be monitored, sliding scale insulin will be used #5 cirrhosis of the liver-secondary to nonalcoholic fatty liver disease, patient's medications which were prescribed by GI will be continued #6 metabolic encephalopathy-this appears to be cleared at this time, this could be a combination of underlying chronic hepatic encephalopathy and her other medical problems during this admission #7 acute debility-patient is being seen by PT and OT, I will reevaluate her tomorrow for possible discharge #8 community-acquired pneumonia-etiology unclear, again patient is on cefepime and she chronically takes Zithromax due to her cirrhosis. Total clinical time spent by myself addressing the patient's medical issues, r eviewing all of her data, and collaborating with patient's care team: 37 minutes Charges/Coding Visit Charges Inpatient E&M: 11115 Subs Hosp L2
[2023-01-27] MEDS: Latanoprost 0.005% 1 Bottle 1 DRP LEFT EYE (21:24)
[2023-01-27] MEDS: Atorvastatin Calcium 40 MG Tablet PO (21:26)
[2023-01-27] MEDS: oxyCODONE 5 MG Tablet PO (21:28)
[2023-01-27 22:18] VITALS: PULSE 70; RESP 18
[2023-01-28 00:55] LABS: Bedside Glucose 168 mg/dL (74-106)
[2023-01-28 01:15] VITALS: BP 147/47; PULSE 87; RESP 20; TEMP 37.3; O2SAT 94
[2023-01-28] MEDS: Sodium Bicarbonate 650 MG Tablet 1300 MG PO (05:57)
[2023-01-28] MEDS: Heparin Injection (Vial) 5,000 UNIT/ML VIAL 5000 UNIT SC (05:57)
[2023-01-28] MEDS: Acetaminophen 500 MG Tablet 1000 MG PO ×2 (05:58→16:03)
[2023-01-28 05:59] VITALS: BP 138/79; PULSE 73; RESP 18; TEMP 37.1; O2SAT 97
[2023-01-28] MEDS: Clotrimazole/Betamethasone 1 Tube 1 APPLIC TOPICAL (06:09)
[2023-01-28 07:06] LABS: Bedside Glucose 119 mg/dL (74-106)
[2023-01-28 07:52] VITALS: PULSE 68; RESP 20; O2SAT 96
[2023-01-28] MEDS: Ipratropium/Albuterol Sulfate 3 ML AMPUL.NEB INHALATION (07:52)
--- NOTE | 2023-01-28 10:02 | NURSING ---
pt on [facility] had 13 dayday run vt asymptomatic
[2023-01-28] MEDS: 0.9% Saline Lock 10 ML Syringe IV (11:22)
[2023-01-28] MEDS: Bumetanide 1 MG/4 ML Vial IV (11:22)
[2023-01-28] MEDS: Spironolactone 25 MG Tablet PO (11:22)
[2023-01-28] MEDS: Cefdinir 300 MG Capsule PO (11:22)
[2023-01-28] MEDS: Lactulose 20 GM/30 ML UDC PO (11:22)
[2023-01-28] MEDS: rifAXIMin 550 MG Tablet PO (11:24)
[2023-01-28] MEDS: Iron Polysaccharide Complex 150 MG CAPSULE PO (11:28)
[2023-01-28] MEDS: metroNIDAZOLE 500 MG Tablet PO (11:28)
[2023-01-28] MEDS: Azithromycin 250 MG Tablet 1000 MG PO (11:30)
[2023-01-28] MEDS: Pantoprazole Sodium 40 MG Tablet PO (11:30)
[2023-01-28] MEDS: Labetalol 100 MG Tablet 50 MG PO (11:32)
[2023-01-28] MEDS: Nystatin Ointment 1 APPLIC TOPICAL (11:33)
[2023-01-28] MEDS: Insulin Lispro 100 UNIT/ML INSULN.PEN SC (11:38)
[2023-01-28 12:00] VITALS: BP 121/64; PULSE 69; RESP 18; TEMP 36.8; O2SAT 97
[2023-01-28 12:01] LABS: Bedside Glucose 208 mg/dL (74-106)
[2023-01-28] MEDS: oxyCODONE 5 MG Tablet PO (12:10)
--- NOTE | 2023-01-28 15:24 | CASEMGMT ---
ARCENIO called [place] at Hospice and let her know plan is still for patient to go home today. ARCENIO is waiting on physician to do d/c paperwork. Lety CLIFTON
--- NOTE | 2023-01-28 15:37 | DCINST_ITS ---
Discharge Instructions Diet Discharge Diet: No restrictions Activity Discharge Activity: Return to Normal Activity Weight Bearing Status: Full weight bearing Follow Up Care Test Results: Test results from this visit will be discussed in further detail at your follow- up appointment, if applicable. Discharge Plan Admission Admit Date/Time: 01/23/23 19:37 Primary Reason for Your Visit: bladder infection, hypoxia Attending Provider: Josiah Merchant Primary Care Provider: Josiah Smith Consulting Providers: Irma Desouza ; Lance Davies Instructions Additional Instructions / Restrictions: Use oxygen at 2-3 liters per min Discharge Orders/Prescriptions Prescriptions: New cefdinir 300 mg Capsule 300 mg PO DAILY Qty: 5 0RF lactulose 20 gram/30 mL Solution 20 g PO 4X/DAY Qty: 0 0RF Continued atorvastatin [Lipitor] 40 mg Tablet 40 mg PO QHS spironolactone 25 mg tablet 25 mg PO DAILY Qty: 30 0RF Label Comments: TAKE 1 TABLET BY MOUTH TWICE DAILY torsemide 20 mg Tablet 20 mg PO BID albuterol sulfate 90 mcg/actuation HFA aerosol inhaler 2 puff INHALATION Q4H PRN (Reason: SOB) Label Comments: INHALE 2 PUFFS DIRECTED EVERY 4 HOURS NEEDED latanoprost 0.005 % Drops 1 drp LEFT EYE QPM sodium bicarbonate 650 mg tablet 1,300 mg PO TID Xifaxan 550 mg tablet 550 mg PO BID polysaccharide iron complex [iFerex 150] 150 mg iron Capsule 150 mg PO DAILY pantoprazole 40 mg Tablet,Delayed Release (Dr/Ec) 40 mg PO DAILY labetalol 100 mg Tablet 50 mg PO BID simethicone 80 mg Tablet,Chewable 80 mg PO QHS metronidazole 500 mg Tablet 500 mg PO BID 7 Days Qty: 14 0RF neomycin 500 mg Tablet 500 mg PO BID 7 Days Qty: 14 0RF azithromycin 500 mg tablet 1,000 mg PO DAILY 7 Days Qty: 14 0RF glimepiride 2 mg tablet 2 mg PO DAILY Qty: 60 0RF Discontinued labetalol 100 mg tablet 50 mg PO BID ondansetron 4 mg tablet,disintegrating 4 mg PO Q6H PRN PRN (Reason: nausea/vomiting) Label Comments: Take 1 tablet by mouth every 6 hours as needed for nausea/vomiting. lactulose 10 gram/15 mL solution 30 ml PO 4X/DAY Label Comments: Take 30 mL by mouth four times daily. omeprazole 20 mg Capsule,Delayed Release(Dr/Ec) 20 mg PO DAILY furosemide 20 mg Tablet 20 mg PO BID tizanidine 4 mg tablet 4 mg PO Q8H PRN (Reason: Muscle Spasm) Label Comments: TAKE 1 TABLET BY MOUTH EVERY 8 HOURS NEEDED FOR MUSCLE SPASMS Referrals / Follow Up: Josiah Smith MD [Primary Care Provider] - Disposition Disposition (needs filled in before D/C Order can be placed): Hospice in Home
--- NOTE | 2023-01-28 16:00 | CASEMGMT ---
ARCENIO called [place] at Hospice and let her know that physician is working on paperwork now. [place] asked that orders be faxed to [phone] and that they call her at [phone]. Lety CLIFTON
--- NOTE | 2023-01-28 16:01 | DS.PCM_ITS ---
Providers Date of Admission: 01/23/23 Date of Discharge: 01/28/23 Primary Care Physician: Dr. Josiah Smith MD Reason For Visit: PNEUMONIA/R PLEURAL EFFUSION Diagnosis Discharge Diagnosis (1) Hypoxia: Status: Acute Code(s): R09.02 - Hypoxemia Plan 1. Acute hypoxia on a backdrop of chronic hypoxic respiratory failure-secondary to pneumonia and left-sided pleural effusion, again patient underwent a thoracentesis today, she will be reevaluated tomorrow, I have elected to stop her vancomycin, I do not believe she needs this antibiotic coverage. #2 acute cystitis with Klebsiella oxytocin-patient is on IV antibiotics, I will be changing to oral antibiotic if possible, patient lists many antibiotic allergies unfortunately #3 acute on chronic diastolic congestive heart failure-continue present treatment, medications may need to be adjusted #4 type 2 diabetes-patient's blood sugars will be monitored, sliding scale insulin will be used #5 cirrhosis of the liver-secondary to nonalcoholic fatty liver disease, patient's medications which were prescribed by GI will be continued #6 metabolic encephalopathy-this appears to be cleared at this time, this could be a combination of underlying chronic hepatic encephalopathy and her other medical problems during this admission #7 acute debility-patient is being seen by PT and OT, I will reevaluate her tomorrow for possible discharge if she remains medically stable #8 community-acquired pneumonia-etiology unclear, again patient is on cefepime and she chronically takes Zithromax due to her cirrhosis. Total clinical time spent by myself addressing the patient's medical issues, reviewing all of her data, and collaborating with patient's care team: 38 minutes Medications at Discharge Home Medications atorvastatin 40 mg tablet (Lipitor) 40 mg PO QHS cholesterol 02/09/22 spironolactone 25 mg tablet 25 mg PO DAILY liver #30 tabs 10/19/22 albuterol sulfate 90 mcg/actuation aerosol inhaler 2 puff inhalation Q4H PRN SOB 11/20/22 torsemide 20 mg tablet 20 mg PO BID WATER PILL 11/20/22 latanoprost 0.005 % eye drops 1 drp LEFT EYE QPM eye health 12/31/22 rifaximin 550 mg tablet (Xifaxan) 550 mg PO BID bowels 12/31/22 sodium bicarbonate 650 mg tablet 1,300 mg PO TID supplement 12/31/22 labetalol 100 mg tablet 50 mg PO BID blood pressure 01/12/23 pantoprazole 40 mg tablet,delayed release 40 mg PO DAILY reflux 01/12/23 polysaccharide iron complex 150 mg iron capsule (iFerex 150) 150 mg PO DAILY supplement 01/12/23 simethicone 80 mg chewable tablet 80 mg PO QHS gas 01/12/23 azithromycin 500 mg tablet 1,000 mg PO DAILY 7 days #14 tabs 01/19/23 glimepiride 2 mg tablet 2 mg PO DAILY #60 tabs 01/19/23 metronidazole 500 mg tablet 500 mg PO BID 7 days #14 tabs 01/19/23 neomycin 500 mg tablet 500 mg PO BID 7 days #14 tabs 01/19/23 cefdinir 300 mg capsule 300 mg PO DAILY #5 caps 01/28/23 lactulose 20 gram/30 mL oral solution 20 g (30 mL) PO 4X/DAY #0 mL 01/28/23 Hospital Course Operations None Procedures None Summary of Care Provided Minutes Spent on Discharge: 32 Hospital Course: Patient was seen in the emergency room at [facility] with complaints of shortness of breath, she was confused not able to provide consent and adequate history. She is cared for at home by her brother, she has a history of cirrhosis of the liver COPD and chronic kidney disease. Patient also has a history of hepatic encephalopathy and takes lactulose at home. Work-up in the ER showed an elevated ammonia level, she had been discharged from the hospital several days ago and it was much lower than that level in the hospital at that time. Patient was noted on the work-up to have a left pleural effusion, troponin was elevated nonspecifically, patient was treated empirically for pneumonia with IV antibiotics and she was admitted to PCU. Patient's urine cultures came back positive for Klebsiella oxytocin, she underwent a left thoracentesis without complication. Patient's mentation improved while she was hospitalized, she was seen by PT and OT and discussions were carried out with the patient and family members concerning hospice consultation, she agreed to see hospice and she was set up for outpatient hospice at her home. On 01/28/2023, patient was seen and examined: On examination she appeared in good health and spirits, she does not appear to be in any distress. Vital signs as documented. Skin warm and dry and without overt rashes. Neck without JVD, thyroid appears normal, trachea is midline, neck is supple. Lungs clear, normal air movement was noted. Heart exam notable for regular rhythm, normal sounds and absence of murmurs, rubs or gallops. Abdomen unremarkable and without evidence of organomegaly, masses, or abdominal aortic enlargement, bowel sounds are prese nt in all 4 quadrants, no abdominal tenderness was noted. Extremities nonedematous, no cyanosis was noted, no clubbing was noted. Neuro: Cranial nerves II through XII are grossly intact, no focal motor deficits were noted, sensation to light touch and pinprick is intact, motor exam 5/5 throughout. Psych: Patient is alert and oriented x3, she does not appear anxious or depressed, she does not appear agitated. Patient appears to be stable for discharge home on 01/28/2023, again she was going to be active with hospice at home. Weight / BMI Weight Weight: 74.3 kg Body Mass Index (BMI) 32.0 ABG / Lab / Microbiology Data Result Diagrams: 01/27/23 05:20 01/26/23 06:00 Laboratory: Laboratory Results - last 24 hr 01/27/23 16:48: POC Glucose 159 H 01/27/23 21:20: POC Glucose 168 H 01/28/23 06:05: POC Glucose 119 H 01/28/23 11:37: POC Glucose 208 H Microbiology: Microbiology 01/26/23 14:59 Fluid - Thoracentesis Fluid Gram Stain - Final 01/26/23 14:59 Fluid - Thoracentesis Fluid Body Fluid Culture - Final Culture exhibits no growth. 01/23/23 17:00 Blood Culture (Wb) - Anticubital Left Blood Culture - Preliminary No growth in 48 hours. 01/23/23 16:20 Blood Culture (Wb) - Anticubital Left Blood Culture - Preliminary No growth in 48 hours. 01/23/23 18:40 Urine, Clean Catch Urine Culture - Final Klebsiella oxytoca 01/23/23 18:40 Urine Catheter - Catheter Legionella Antigen - Final 01/23/23 18:40 Urine Catheter - Catheter Streptococcus pneumoniae Antigen (M - Final 01/23/23 16:20 Nasal Secretion SARS-CoV-2 & FLU Antigen (Rapid) - Final D/C Instructions Discharge Diet: No restrictions Weight Bearing Status: Full weight bearing Meaningful Use Info Meaningful Use Diagnoses (Choose all that apply): None applicable Discharge Plan Admission Admit Date/Time: 01/23/23 19:37 Primary Reason for Your Visit: bladder infection, hypoxia Attending Provider: Josiah Merchant Primary Care Provider: Josiah Smith Consulting Providers: Irma Desouza ; Lance Davies Instructions Additional Instructions / Restrictions: Use oxygen at 2-3 liters per min Discharge Orders/Prescriptions Prescriptions: New cefdinir 300 mg Capsule 300 mg PO DAILY Qty: 5 0RF lactulose 20 gram/30 mL Solution 20 g PO 4X/DAY Qty: 0 0RF Continued atorvastatin [Lipitor] 40 mg Tablet 40 mg PO QHS spironolactone 25 mg tablet 25 mg PO DAILY Qty: 30 0RF Label Comments: TAKE 1 TABLET BY MOUTH TWICE DAILY torsemide 20 mg Tablet 20 mg PO BID albuterol sulfate 90 mcg/actuation HFA aerosol inhaler 2 puff INHALATION Q4H PRN (Reason: SOB) Label Comments: INHALE 2 PUFFS DIRECTED EVERY 4 HOURS NEEDED latanoprost 0.005 % Drops 1 drp LEFT EYE QPM sodium bicarbonate 650 mg tablet 1,300 mg PO TID Xifaxan 550 mg tablet 550 mg PO BID polysaccharide iron complex [iFerex 150] 150 mg iron Capsule 150 mg PO DAILY pantoprazole 40 mg Tablet,Delayed Release (Dr/Ec) 40 mg PO DAILY labetalol 100 mg Tablet 50 mg PO BID simethicone 80 mg Tablet,Chewable 80 mg PO QHS metronidazole 500 mg Tablet 500 mg PO BID 7 Days Qty: 14 0RF neomycin 500 mg Tablet 500 mg PO BID 7 Days Qty: 14 0RF azithromycin 500 mg tablet 1,000 mg PO DAILY 7 Days Qty: 14 0RF glimepiride 2 mg tablet 2 mg PO DAILY Qty: 60 0RF Discontinued labetalol 100 mg tablet 50 mg PO BID ondansetron 4 mg tablet,disintegrating 4 mg PO Q6H PRN PRN (Reason: nausea/vomiting) Label Comments: Take 1 tablet by mouth every 6 hours as needed for nausea/vomiting. lactulose 10 gram/15 mL solution 30 ml PO 4X/DAY Label Comments: Take 30 mL by mouth four times daily. omeprazole 20 mg Capsule,Delayed Release(Dr/Ec) 20 mg PO DAILY furosemide 20 mg Tablet 20 mg PO BID tizanidine 4 mg tablet 4 mg PO Q8H PRN (Reason: Muscle Spasm) Label Comments: TAKE 1 TABLET BY MOUTH EVERY 8 HOURS NEEDED FOR MUSCLE SPASMS Referrals / Follow Up: Josiah Smith MD [Primary Care Provider] - Disposition Disposition (needs filled in before D/C Order can be placed): Hospice in Home Charges/Coding Visit Charges Inpatient E&M: 55873 Disch Hosp >30min
--- NOTE | 2023-01-28 16:07 | CASEMGMT ---
ARCENIO faxed d/c instructions to [facility]. ARCENIO asked RN Edgardo to call [facility] when patient is leaving. Note with [facility]'s name and number left in RN's box. Plan: home with [facility]
[2023-01-28 16:26] LABS: LDH 240 U/L (84-246)
[2023-01-29 13:17] LABS: Pathologist Comment/Body Fluid Reviewed
== END 2023-01-28 16:28 | disposition hospice, home (50) | DRG 193 ==
LOC: ED 19:15 → PCU 23:47
PROVIDERS: Internal Medicine; Admitting Provider Internal Medicine; Emergency Provider Emergency Medicine; PCP Family Medicine; Visit Provider Internal Medicine
DX: J18.9 Pneumonia, unspecified organism (principal); I50.33 Acute on chronic diastolic (congestive) heart failure; G93.41 Metabolic encephalopathy; I24.8 Other forms of acute ischemic heart disease; J96.11 Chronic respiratory failure with hypoxia; J44.0 Chronic obstructive pulmonary disease with (acute) lower respiratory infection; I13.0 Hypertensive heart and chronic kidney disease with heart failure and stage 1 through stage 4 chronic kidney disease, or unspecified chronic kidney disease; J91.8 Pleural effusion in other conditions classified elsewhere; N30.00 Acute cystitis without hematuria; I27.23 Pulmonary hypertension due to lung diseases and hypoxia; E88.09 Other disorders of plasma-protein metabolism, not elsewhere classified; D63.8 Anemia in other chronic diseases classified elsewhere; E11.22 Type 2 diabetes mellitus with diabetic chronic kidney disease; K74.60 Unspecified cirrhosis of liver; N18.32 Chronic kidney disease, stage 3b; K76.82 Hepatic encephalopathy; E78.5 Hyperlipidemia, unspecified; G47.30 Sleep apnea, unspecified; K21.9 Gastro-esophageal reflux disease without esophagitis; B35.3 Tinea pedis; H40.9 Unspecified glaucoma; B96.1 Klebsiella pneumoniae [K. pneumoniae] as the cause of diseases classified elsewhere; E66.9 Obesity, unspecified; Z68.33 Body mass index [BMI] 33.0-33.9, adult; Z99.81 Dependence on supplemental oxygen; Z79.84 Long term (current) use of oral hypoglycemic drugs; Z79.899 Other long term (current) drug therapy; Z87.891 Personal history of nicotine dependence; Z88.0 Allergy status to penicillin
CPT/HCPCS: 32555; 36415; 36600; 70450; 71046; 74176; 80048; 80053; 80202; 81001; 82140; 82803; 82945; 82962; 83540; 83550; 83605; 83615; 83690; 83735; 83880; 84100; 84157; 84484; 85025; 85610; 85730; 87040; 87070; 87075; 87077; 87086; 87088; 87186; 87205; 87428; 87449; 87641; 88108; 88305; 88313; 89050; 93005; 94640; 94668; 97162; 97166; 97802; 99252; 99285; J7050; A4216; G0463; J1940; J2405

== ENCOUNTER 2023-02-04 04:34 | Inpatient (IN) | payer MEDICARE, MEDICAID, SELFPAY ==
[2023-02-04] VITALS (16 sets, daily range): BP systolic 118–176; BP diastolic 52–104; PULSE 86–100; RESP 12–26; TEMP 36.4–37.1; O2SAT 91–100; BMI 33.5; BMI 33.0
--- NOTE | 2023-02-04 05:02 | RAD_ITS ---
EXAM: XR CHEST, 1 VIEW CLINICAL INDICATION: dim LS dim LS TECHNIQUE: Frontal view of the chest. This report was created using [employer] report generation technology. COMPARISON: Chest x-ray 01/26/2023. FINDINGS: LUNGS AND PLEURAL SPACES: There is a small left pleural effusion. There is overlying atelectasis or infiltration the left lower lung field. There is increased interstitial prominence bilaterally, suggesting CHF. No pneumothorax. HEART: The heart is enlarged. MEDIASTINUM: Central airways and mediastinal contour are unremarkable. BONES/JOINTS: Unremarkable. SOFT TISSUES: Unremarkable. RAD/Chest 1 View (Portable) IMPRESSION: 1. Cardiomegaly with CHF. 2. Small left pleural effusion with overlying atelectasis or infiltration in the left lower lung field. Electronically Signed: Casa Real MD at 5:56 EDT Reading Location ID and State: [facility] / [place] , Service support ,
[2023-02-04 05:35] LABS: Absolute Lymphocyte Count 0.88 X10^3/uL (0.83-4.51); Absolute Neutrophil Count 7.5 X10^3/uL (2.0-7.7); Basophil# 0.13 X10^3/uL; Basophil% 1.3 % (0-1); Eosinophils% 4.1 % (0-5); Hematocrit 28.4 % (37-47); Hemoglobin 8.2 g/dL (12.0-15.0); Lymphocyte # 0.88 X10^3/ul (0.83-4.51); Lymphocyte % 8.9 % (19-41); Mean Corp Hgb Conc 28.9 g/dL (32-36); Mean Corpuscular Hgb 27.3 pg (27.0-32.0); Mean Corpuscular Volume 94.7 fL (81-99); Mean Platelet Vol. 9.9 fl (6.2-12.0); Monocyte% 9.1 % (0-10); NRBC Flagged by Analyzer 0 % (0-5); Neutrophil # 7.49 X10^3/uL (2.7-7.7); Neutrophil % 76.1 % (47-70); Platelet Count 280 K/mm3 (150-450); RBC Distribution Width CV 16.5 % (11.6-14.6); RBC Distribution Width SD 57.9 fl (35.1-43.9); White Blood Count 9.9 K/mm3 (4.4-11.0)
[2023-02-04 05:52] LABS: BNP,B-Type NATRIURETIC PEPTIDE 702.8 pg/mL (0-100)
[2023-02-04 05:53] LABS: AST(SGOT) 42 U/L (15-37); Alanine Aminotransfer ALT/SGPT 32 U/L (13-56); Albumin, Serum 2.5 g/dL (3.2-5.0); Alkaline Phosphatase 118 U/L (45-117); Bilirubin, Direct 0.26 mg/dL (0.00-0.30); Protein, Total 6.5 g/dL (6.4-8.2)
[2023-02-04 06:01] LABS: ALB/GLOB Ratio 0.7 RATIO (0.9-2.4); AST(SGOT) 40 U/L (15-37); Alanine Aminotransfer ALT/SGPT 32 U/L (13-56); Albumin, Serum 2.5 g/dL (3.2-5.0); Alkaline Phosphatase 115 U/L (45-117); Anion Gap -3 (5-15); BUN 32 mg/dL (7-18); BUN/Creat Ratio 20.8 RATIO (10-20); Calcium,Total 9.5 mg/dL (8.5-10.1); Chloride 98 mmol/L (98-107); Creatinine, Serum 1.54 mg/dL (0.55-1.02); EST Glomerular Filtration Rate 35 mL/min (>60); Est Glom Filt Rate - Afr Amer 42 mL/min (>60); Estimated Creatinine Clearance 24.18 ml/min; Globulin 3.8 g/dL (2.2-4.2); Glucose 158 mg/dL (74-106); Potassium 5.4 mmol/L (3.5-5.1); Protein, Total 6.3 g/dL (6.4-8.2); Sodium Level 137 mmol/L (136-145); Thyroid Stim Hormone (TSH) 4.95 uIU/mL (0.358-3.74)
[2023-02-04 07:40] LABS: Blood Gas Specimen Type VEN; O2 Delivery Device Cannula; VBG BASE EXCESS 18 mmol/L (-1.0-3.5); VBG Bicarbonate 45 mmol/L (22-26); VBG PO2 50 mmHg (25-40); VBG SO2 77 % (50-70); VBG TCO2 48 mmol/L (23-33); VBG pCO2 92.5 mmHg (41-51); VBG pH 7.29 (7.32-7.42)
--- NOTE | 2023-02-04 08:16 | EDS_ITS ---
HPI History of Present Illness Chief Complaint: Alt LOC Narrative Narrative: Patient is a 72-year-old female with past medical history of hyperammonemia as well as congestive heart failure as well as hypertension diabetes and COPD. She has been admitted to the hospital multiple times over the past 2-month. She is currently enrolled in hospice at home but is still a full code. The patient's brother states that after hospice gave her some of her new medications that she seemed to have a change to her mental status. The brother states that she was not responding appropriately and with concern that her ammonia was elevated called EMS to bring her in for evaluation. 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 Thrombocytopenia Home Medications atorvastatin 40 mg tablet (Lipitor) 40 mg PO QHS cholesterol 02/09/22 [History Last Taken 07/17/22] spironolactone 25 mg tablet 25 mg PO DAILY liver #30 tabs 10/19/22 [Rx Last Taken Unknown] albuterol sulfate 90 mcg/actuation aerosol inhaler 2 puff inhalation Q4H PRN SOB 11/20/22 [History Last Taken Unknown] torsemide 20 mg tablet 20 mg PO BID WATER PILL 11/20/22 [History Last Taken Unknown] latanoprost 0.005 % eye drops 1 drp LEFT EYE QPM eye health 12/31/22 [History Last Taken Unknown] rifaximin 550 mg tablet (Xifaxan) 550 mg PO BID bowels 12/31/22 [History Last Taken Unknown] sodium bicarbonate 650 mg tablet 1,300 mg PO TID supplement 12/31/22 [History Last Taken Unknown] labetalol 100 mg tablet 50 mg PO BID blood pressure 01/12/23 [History Last Taken Unknown] pantoprazole 40 mg tablet,delayed release 40 mg PO DAILY reflux 01/12/23 [History Last Taken Unknown] polysaccharide iron complex 150 mg iron capsule (iFerex 150) 150 mg PO DAILY supplement 01/12/23 [History Last Taken Unknown] simethicone 80 mg chewable tablet 80 mg PO QHS gas 01/12/23 [History Last Taken Unknown] azithromycin 500 mg tablet 1,000 mg PO DAILY 7 days #14 tabs 01/19/23 [Rx Last Taken Unknown] glimepiride 2 mg tablet 2 mg PO DAILY #60 tabs 01/19/23 [Rx Last Taken Unknown] metronidazole 500 mg tablet 500 mg PO BID 7 days #14 tabs 01/19/23 [Rx Last Taken Unknown] neomycin 500 mg tablet 500 mg PO BID 7 days #14 tabs 01/19/23 [Rx Last Taken Unknown] cefdinir 300 mg capsule 300 mg PO DAILY #5 caps 01/28/23 [Rx Last Taken Unknown] lactulose 20 gram/30 mL oral solution 20 g (30 mL) PO 4X/DAY #0 mL 01/28/23 [Rx Last Taken Unknown] Allergy/AdvReac Type Severity Reaction Status Date / Time suture Allergy Mild rash/ Verified 02/04/23 04:46 wound dehisence amoxicillin Allergy Unknown Verified 02/04/23 04:46 azithromycin Allergy Shortness Verified 02/04/23 04:46 of breath celecoxib [From Celebrex] Allergy Other Verified 02/04/23 04:46 ciprofloxacin HCl Allergy Shortness Verified 02/04/23 04:46 [From Cipro] of breath cortisone Allergy Swelling Verified 02/04/23 04:46 doxycycline Allergy Shortness Verified 02/04/23 04:46 of breath erythromycin base Allergy Unknown Verified 02/04/23 04:46 fexofenadine [From Ashlee] Allergy Unknown Verified 02/04/23 04:46 ibuprofen Allergy Shortness Verified 02/04/23 04:46 of breath Iodinated Contrast Media Allergy Shortness Verified 02/04/23 04:46 [DYEE] of breath iodine Allergy Shortness Verified 02/04/23 04:46 of breath levofloxacin [From Levaquin] Allergy Shortness Verified 02/04/23 04:46 of breath lorazepam [From Ativan] Allergy Shortness Verified 02/04/23 04:46 of breath nitrofurantoin Allergy Shortness Verified 02/04/23 04:46 macrocrystalline of breath [From Macrobid] Penicillins Allergy Shortness Verified 02/04/23 04:46 of breath rofecoxib [From Vioxx] Allergy Unknown Verified 02/04/23 04:46 Sulfa (Sulfonamide Allergy Shortness Verified 02/04/23 04:46 Antibiotics) of breath sulfamethoxazole Allergy Shortness Verified 02/04/23 04:46 [From Bactrim] of breath trimethoprim [From Bactrim] Allergy Shortness Verified 02/04/23 04:46 of breath amlodipine [From Norvasc] AdvReac Upset Verified 02/04/23 04:46 Stomach MISC BP MED AdvReac Shortness Uncoded 02/04/23 04:46 of breath Family History Mother Heart disease Brother Heart disease Surgical History History of bilateral salpingo-oophorectomy History of endarterectomy History of laparoscopic cholecystectomy History of oral surgery S/P TIPS (transjugular intrahepatic portosystemic shunt) Social History household members: spouse Smoking Status: Former smoker alcohol intake: never substance use type: does not use ROS ROS ED Review of Systems ROS Unobtainable: due to mental condition and due to mental status EXAM Physical Exam Const Vital Signs: 02/04/23 04:35 02/04/23 04:42 02/04/23 05:00 Temperature 98.2 F Temperature Source Temporal Pulse Rate 86 91 Respiratory Rate 22 H 26 H Respiratory Effort Short of Breath Labored Respiratory Pattern Tachypnea Blood Pressure 138/52 H 176/58 H Blood Pressure Mean 80 97 Pulse Ox 91 97 Oxygen Delivery Method Room Air Nasal Cannula Oxygen Flow Rate (L/min) 4 4 02/04/23 06:35 02/04/23 07:00 Temperature Temperature Source Pulse Rate 93 87 Respiratory Rate 17 16 Respiratory Effort Respiratory Pattern Blood Pressure 172/83 H 164/75 H Blood Pressure Mean 112 104 Pulse Ox 100 100 Oxygen Delivery Method Nasal Cannula Nasal Cannula Oxygen Flow Rate (L/min) 4 4 Positive well nourished, well developed and obese General Appearance ED: well developed Nutritional Appearance: obese HEENT Reports dry mucous membranes HEENT Narrative: No tongue or lip swelling no oral lesions no airway edema or compromise Mouth ED: Yes dry mucous membranes Mouth: dry mucous membranes Eyes PERRL and EOMs intact bilaterally Neck supple Neck Narrative: No nuchal rigidity or meningeal signs noted No obvious JVD noted Chest Wall palpation of chest normal Chest Narrative: No bony deformity or crepitance Resp Resp Narrative: There is mild tachypnea noted with slight accessory muscle use. Breath sounds are very diminished throughout with crackles in the left base. Cardio regular rate and regular rhythm Rate: other Other Details: Radial pulses are plus 2 out of 4 bilaterally are equal and symmetric GI non-tender and non-distended GI Narrative: Abdomen is soft nontender and nondistended with normal active bowel sounds. There is no voluntary guarding or rigidity or pulsatile mass. There is slight fluid wave noted Auscultation: normoactive bowel sounds Palpation: soft Extremity Extremity Narrative: Patient has diffuse anasarca with +3 pitting edema to the bilateral lower extremities as well as swelling to the right and left upper arm Neuro Neuro Narrative: Patient is obtunded with GCS of 13. She will wake to voice but has difficulty answer questions appropriately and then will quickly fall back asleep. Sensorium / Orientation: orientation impaired Psych Psych Narrative: Patient has a depressed/flat mental state Skin no rashes or lesions noted General Skin Exam: Negative for jaundice MDM MDM MDM Narrative Medical decision making narrative: Patient presented to the ER in mild respiratory distress satting in the mid 90s on 4 L. Chart review reveals that she was sent home on 2 to 3 L and so this is only a mild elevation. Her mental status is diminished with GCS of 13 but she awakes to minimal stimulation and is still protecting her airway so there is no need for intubation. With concern for CHF exacerbation pneumonia hyperammonemia hepatic encephalopathy or change in mental status from hypercapnia a work-up was obtained. Patient's hemoglobin is low at 8 but this is at her baseline her ammonia level is 33 which is only elevated by one-point which does not correlate with hyperammonemia and her liver enzymes are at her baseline. A venous blood gas was obtained and confirms a PCO2 of 93 and chart review reveals her previous was approximately 50 which correlates with her altered mental status. At this time she will be placed on BiPAP secondary to the hypercapnia and based on her mental status being diminished from the elevated CO2 she will need to be kept in the hospital for further care. Therefore medicine was contacted and agreed accept the patient at this time History & Record Review Discussion w/independent historian: EMS personnel and Family Lab Data Attestation: I reviewed the patient's lab results. Labs: Laboratory Results - last 24 hr 02/04/23 02/04/23 02/04/23 05:15 05:15 05:15 WBC 9.9 RBC 3.00 L Hgb 8.2 L Hct 28.4 L MCV 94.7 MCH 27.3 MCHC 28.9 L RDW Std Deviation 57.9 H RDW Coeff of Jordan 16.5 H Plt Count 280 MPV 9.9 Immature Gran % (Auto) 0.500 Neut % (Auto) 76.1 H Lymph % (Auto) 8.9 L [place] % (Auto) 9.1 Eos % (Auto) 4.1 Baso % (Auto) 1.3 H Absolute Neuts (auto) 7.5 Absolute Lymphs (auto) 0.88 Nucleated RBC % 0 Sodium 137 Potassium 5.4 H Chloride 98 Carbon Dioxide 42.0 H Anion Gap -3 L BUN 32 H Creatinine 1.54 H Estim Creat Clear Calc 24.18 Est GFR (MDRD) Af Amer 42 L Est GFR (MDRD) Non-Af 35 L BUN/Creatinine Ratio 20.8 H Glucose 158 H Calcium 9.5 Total Bilirubin 0.60 0.60 Direct Bilirubin 0.26 AST 42 H 40 H ALT 32 32 Alkaline Phosphatase 118 H 115 Ammonia B-Natriuretic Peptide Total Protein 6.5 6.3 L Albumin 2.5 L 2.5 L Globulin 4.0 3.8 Albumin/Globulin Ratio 0.7 L TSH 4.95 H 02/04/23 02/04/23 05:15 05:15 WBC RBC Hgb Hct MCV MCH MCHC RDW Std Deviation RDW Coeff of Jordan Plt Count MPV Immature Gran % (Auto) Neut % (Auto) Lymph % (Auto) [place] % (Auto) Eos % (Auto) Baso % (Auto) Absolute Neuts (auto) Absolute Lymphs (auto) Nucleated RBC % Sodium Potassium Chloride Carbon Dioxide Anion Gap BUN Creatinine Estim Creat Clear Calc Est GFR (MDRD) Af Amer Est GFR (MDRD) Non-Af BUN/Creatinine Ratio Glucose Calcium Total Bilirubin Direct Bilirubin AST ALT Alkaline Phosphatase Ammonia 33.0 H B-Natriuretic Peptide Cancelled 702.8 H Total Protein Albumin Globulin Albumin/Globulin Ratio TSH ABG Data ABG results: ABG 02/04/23 07:31 Specimen Type AYAZ VBG pH 7.29 L VBG pO2 50 H VBG HCO3 45 H VBG Total CO2 48 H VBG O2 Sat (Calc) 77 H VBG Base Excess 18 H POC Mix VBG pCO2 Pt Tmp 92.5 H* O2 Delivery Device Cannula Liter Flow 4.0 Crit Call To/Read Back Yes Blood Gas Notified Whom Blood Gas Notified Time 07:33:57 Radiography Diagnostic Testing: Clinical Impression(s) from Imaging Studies Chest X-Ray 02/04/23 05:02 IMPRESSION: 1. Cardiomegaly with CHF. 2. Small left pleural effusion with overlying atelectasis or infiltration in the left lower lung field. Electronically Signed: Casa Real MD at 5:56 EDT Reading Location ID and State: [facility] / [place] , Service support , Management Discussion w/another healthcare provider: Hospitalist Discharge Plan Triage Chief Complaint: Alt LOC ED Provider: Nawaf Brumfield Dx/Rx/DC Orders Clinical Impression: Acute on chronic respiratory failure with hypercapnia, Anasarca, Pleural effusion, left, Encephalopathy Prescriptions: No Action atorvastatin [Lipitor] 40 mg Tablet 40 mg PO QHS spironolactone 25 mg tablet 25 mg PO DAILY Qty: 30 0RF Label Comments: TAKE 1 TABLET BY MOUTH TWICE DAILY torsemide 20 mg Tablet 20 mg PO BID albuterol sulfate 90 mcg/actuation HFA aerosol inhaler 2 puff INHALATION Q4H PRN (Reason: SOB) Label Comments: INHALE 2 PUFFS DIRECTED EVERY 4 HOURS NEEDED latanoprost 0.005 % Drops 1 drp LEFT EYE QPM sodium bicarbonate 650 mg tablet 1,300 mg PO TID Xifaxan 550 mg tablet 550 mg PO BID polysaccharide iron complex [iFerex 150] 150 mg iron Capsule 150 mg PO DAILY pantoprazole 40 mg Tablet,Delayed Release (Dr/Ec) 40 mg PO DAILY labetalol 100 mg Tablet 50 mg PO BID simethicone 80 mg Tablet,Chewable 80 mg PO QHS metronidazole 500 mg Tablet 500 mg PO BID 7 Days Qty: 14 0RF neomycin 500 mg Tablet 500 mg PO BID 7 Days Qty: 14 0RF azithromycin 500 mg tablet 1,000 mg PO DAILY 7 Days Qty: 14 0RF glimepiride 2 mg tablet 2 mg PO DAILY Qty: 60 0RF cefdinir 300 mg Capsule 300 mg PO DAILY Qty: 5 0RF lactulose 20 gram/30 mL Solution 20 g PO 4X/DAY Qty: 0 0RF Primary Care Provider: Josiah Smith Referrals: Josiah Smith MD [Primary Care Provider] -
--- NOTE | 2023-02-04 09:14 | CPS ---
Dr. Brumfield requested BIPAP with AVAPS settings Vt 400, Min 12, Max 24
--- NOTE | 2023-02-04 10:18 | HP.PCM.HOS_ITS ---
HPI - General General Date of Admission: 02/04/23 Date of Service: 02/04/23 Chief Complaint: confusion HPI Narrative MICHAEL HENLEY, is a 72 F who presents with confusion. Patient was just discharged on the and has been at home with family but has progressively gotten more confused there. They are concerned and brought the patient to the emergency room concerned that the patient's ammonia level may be elevated. Patient is ammonia level was only 33, however on a venous blood gas, her PCO2 was 92. Patient was subsequently placed on BiPAP. And the hospital service was contacted for admission. Patient is confused at this time and unable to provide any history so history is obtained through the emergency room physician as well as the patient's brother and [id number] at bedside. 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 Thrombocytopenia Home Medications atorvastatin 40 mg tablet (Lipitor) 40 mg PO QHS cholesterol 02/09/22 [History Last Taken 07/17/22] spironolactone 25 mg tablet 25 mg PO DAILY liver #30 tabs 10/19/22 [Rx Last Taken Unknown] albuterol sulfate 90 mcg/actuation aerosol inhaler 2 puff inhalation Q4H PRN SOB 11/20/22 [History Last Taken Unknown] torsemide 20 mg tablet 20 mg PO BID WATER PILL 11/20/22 [History Last Taken Unknown] latanoprost 0.005 % eye drops 1 drp LEFT EYE QPM eye health 12/31/22 [History Last Taken Unknown] rifaximin 550 mg tablet (Xifaxan) 550 mg PO BID bowels 12/31/22 [History Last Taken Unknown] sodium bicarbonate 650 mg tablet 1,300 mg PO TID supplement 12/31/22 [History Last Taken Unknown] labetalol 100 mg tablet 50 mg PO BID blood pressure 01/12/23 [History Last Taken Unknown] pantoprazole 40 mg tablet,delayed release 40 mg PO DAILY reflux 01/12/23 [History Last Taken Unknown] polysaccharide iron complex 150 mg iron capsule (iFerex 150) 150 mg PO DAILY supplement 01/12/23 [History Last Taken Unknown] simethicone 80 mg chewable tablet 80 mg PO QHS gas 01/12/23 [History Last Taken Unknown] azithromycin 500 mg tablet 1,000 mg PO DAILY 7 days #14 tabs 01/19/23 [Rx Last Taken Unknown] glimepiride 2 mg tablet 2 mg PO DAILY #60 tabs 01/19/23 [Rx Last Taken Unknown] metronidazole 500 mg tablet 500 mg PO BID 7 days #14 tabs 01/19/23 [Rx Last Taken Unknown] neomycin 500 mg tablet 500 mg PO BID 7 days #14 tabs 01/19/23 [Rx Last Taken Unknown] cefdinir 300 mg capsule 300 mg PO DAILY #5 caps 01/28/23 [Rx Last Taken Unknown] lactulose 20 gram/30 mL oral solution 20 g (30 mL) PO 4X/DAY #0 mL 01/28/23 [Rx Last Taken Unknown] Allergy/AdvReac Type Severity Reaction Status Date / Time suture Allergy Mild rash/ Verified 02/04/23 04:46 wound dehisence amoxicillin Allergy Unknown Verified 02/04/23 04:46 azithromycin Allergy Shortness Verified 02/04/23 04:46 of breath celecoxib [From Celebrex] Allergy Other Verified 02/04/23 04:46 ciprofloxacin HCl Allergy Shortness Verified 02/04/23 04:46 [From Cipro] of breath cortisone Allergy Swelling Verified 02/04/23 04:46 doxycycline Allergy Shortness Verified 02/04/23 04:46 of breath erythromycin base Allergy Unknown Verified 02/04/23 04:46 fexofenadine [From Ashlee] Allergy Unknown Verified 02/04/23 04:46 ibuprofen Allergy Shortness Verified 02/04/23 04:46 of breath Iodinated Contrast Media Allergy Shortness Verified 02/04/23 04:46 [DYEE] of breath iodine Allergy Shortness Verified 02/04/23 04:46 of breath levofloxacin [From Levaquin] Allergy Shortness Verified 02/04/23 04:46 of breath lorazepam [From Ativan] Allergy Shortness Verified 02/04/23 04:46 of breath nitrofurantoin Allergy Shortness Verified 02/04/23 04:46 macrocrystalline of breath [From Macrobid] Penicillins Allergy Shortness Verified 02/04/23 04:46 of breath rofecoxib [From Vioxx] Allergy Unknown Verified 02/04/23 04:46 Sulfa (Sulfonamide Allergy Shortness Verified 02/04/23 04:46 Antibiotics) of breath sulfamethoxazole Allergy Shortness Verified 02/04/23 04:46 [From Bactrim] of breath trimethoprim [From Bactrim] Allergy Shortness Verified 02/04/23 04:46 of breath amlodipine [From Norvasc] AdvReac Upset Verified 02/04/23 04:46 Stomach MISC BP MED AdvReac Shortness Uncoded 02/04/23 04:46 of breath Family History Mother Heart disease Brother Heart disease Surgical History History of bilateral salpingo-oophorectomy History of endarterectomy History of laparoscopic cholecystectomy History of oral surgery S/P TIPS (transjugular intrahepatic portosystemic shunt) Social History household members: spouse housing: house Smoking Status: Former smoker alcohol intake: never substance use type: does not use ROS Review of Systems ROS Unobtainable: due to encephalopathy Vital Signs Vital Signs Vital Signs: 02/04/23 04:35 02/04/23 04:42 02/04/23 05:00 Temperature 36.8 C Temperature Source Temporal Pulse Rate 86 91 Respiratory Rate 22 H 26 H Respiratory Effort Short of Breath Labored Respiratory Depth Respiratory Pattern Tachypnea Blood Pressure 138/52 H 176/58 H Blood Pressure Mean 80 97 Blood Pressure Source Blood Pressure Position Blood Pressure Location Pulse Ox 91 97 Oxygen Delivery Method Room Air Nasal Cannula Oxygen Flow Rate (L/min) 4 4 Fraction of Inspired Oxygen (FIO2) 02/04/23 06:35 02/04/23 07:00 02/04/23 08:00 Temperature Temperature Source Pulse Rate 93 87 Respiratory Rate 17 16 18 Respiratory Effort Respiratory Depth Respiratory Pattern Blood Pressure 172/83 H 164/75 H Blood Pressure Mean 112 104 Blood Pressure Source Blood Pressure Position Blood Pressure Location Pulse Ox 100 100 Oxygen Delivery Method Nasal Cannula Nasal Cannula Oxygen Flow Rate (L/min) 4 4 Fraction of Inspired Oxygen (FIO2) 02/04/23 08:15 02/04/23 09:00 02/04/23 08:00 Temperature 36.7 C Temperature Source Temporal Pulse Rate 100 90 Respiratory Rate 19 H 21 H Respiratory Effort Respiratory Depth Respiratory Pattern Tachypnea Blood Pressure 157/104 H 149/68 H Blood Pressure Mean 121 95 Blood Pressure Source Blood Pressure Position Blood Pressure Location Pulse Ox 92 98 Oxygen Delivery Method Oxygen Flow Rate (L/min) Fraction of Inspired Oxygen (FIO2) 35 02/04/23 09:48 02/04/23 10:04 02/04/23 09:48 Temperature 36.6 C 36.6 C Temperature Source Temporal Temporal Pulse Rate 90 90 Respiratory Rate 18 18 Respiratory Effort Non-Labored Respiratory Depth Deep Respiratory Pattern Blood Pressure 158/65 H 158/65 H Blood Pressure Mean 96 96 Blood Pressure Source Monitor Blood Pressure Position Semi-Fowlers Blood Pressure Location Right Arm Pulse Ox 97 97 Oxygen Delivery Method Bi-pap Bi-pap Bi-pap Oxygen Flow Rate (L/min) Fraction of Inspired Oxygen (FIO2) Weight Weight: 79.3 kg Body Mass Index (BMI) 33.0 Physical Exam Const Constitutional Narrative: Awake. Confused. On BiPAP. No respiratory distress. No conversational dyspnea. HEENT normocephalic and hearing grossly normal bilaterally Neck no lymphadenopathy Neck Narrative: No thyromegaly Resp normal respiratory effort and no retractions Resp Narrative: Diminished. Cardio regular rate, regular rhythm, S1 normal heart sound and S2 normal heart sound GI normal to inspection, nondistended, normoactive bowel sounds, soft to palpation, non-tender and non-distended Extremity Extremity Narrative: Nonpitting lower extremity edema Neuro moves all extremities Sensorium / Orientation: awake Results Lab / Micro Data Result Diagrams: 02/04/23 05:15 02/04/23 05:15 Labs: Laboratory Results - last 24 hr 02/04/23 05:15: Total Bilirubin 0.60, Direct Bilirubin 0.26, AST 42 H, ALT 32, Alkaline Phosphatase 118 H, Total Protein 6.5, Albumin 2.5 L, Globulin 4.0 02/04/23 05:15: WBC 9.9, RBC 3.00 L, Hgb 8.2 L, Hct 28.4 L, MCV 94.7, MCH 27.3, MCHC 28.9 L, RDW Std Deviation 57.9 H, RDW Coeff of [place] 16.5 H, Plt Count 280, MPV 9.9, Immature Gran % (Auto) 0.500, Neut % (Auto) 76.1 H, Lymph % (Auto) 8.9 L, [place] % (Auto) 9.1, Eos % (Auto) 4.1, Baso % (Auto) 1.3 H, Absolute Neuts (auto) 7.5, Absolute Lymphs (auto) 0.88, Nucleated RBC % 0 02/04/23 05:15: Sodium 137, Potassium 5.4 H, Chloride 98, Carbon Dioxide 42.0 H, Anion Gap -3 L, BUN 32 H, Creatinine 1.54 H, Estim Creat Clear Calc 24.18, Est GFR (MDRD) Af Amer 42 L, Est GFR (MDRD) Non-Af 35 L, BUN/Creatinine Ratio 20.8 H , Glucose 158 H, Calcium 9.5, Total Bilirubin 0.60, AST 40 H, ALT 32, Alkaline Phosphatase 115, Total Protein 6.3 L, Albumin 2.5 L, Globulin 3.8, Albumin/Globulin Ratio 0.7 L, TSH 4.95 H 02/04/23 05:15: Ammonia 33.0 H, B-Natriuretic Peptide Cancelled 02/04/23 05:15: B-Natriuretic Peptide 702.8 H ABG Data ABG results: ABG 02/04/23 07:31 Specimen Type AYAZ VBG pH 7.29 L VBG pO2 50 H VBG HCO3 45 H VBG Total CO2 48 H VBG O2 Sat (Calc) 77 H VBG Base Excess 18 H POC Mix VBG pCO2 Pt Tmp 92.5 H* O2 Delivery Device Cannula Liter Flow 4.0 Crit Call To/Read Back Yes Blood Gas Notified Whom Blood Gas Notified Time 07:33:57 Radiology Impression Chest X-Ray 02/04/23 05:02 IMPRESSION: 1. Cardiomegaly with CHF. 2. Small left pleural effusion with overlying atelectasis or infiltration in the left lower lung field. Electronically Signed: Casa Real MD at 5:56 EDT , Assessment & Plan Assessment/Plan (1) Encephalopathy: PLAN: Metabolic from CO2 narcosis Continue with BiPAP Hold potentiating medications No additional imaging necessary at this time. Ammonia level is only 33 so I do not feel that this is hepatic encephalopathy (2) Acute on chronic respiratory failure with hypercapnia: PLAN: VBG PCO2 was 92. Has been subsequent placed on a BiPAP. We will repeat ABG and monitor. Patient may need to be considered for AVAPS (3) Heart failure with preserved ejection fraction: PLAN: Acute on chronic EF of 70% on 2D echocardiogram from January 01, 2023 Change furosemide to 60 mg twice daily. Hold torsemide for now. Not a candidate for JOSE inhibitors nor ARB's given CKD. (4) Pleural effusion, left: PLAN: Patient had a thoracentesis performed on the that removed only 100 cc of blood-tinged serous fluid. Effusion does look worse but would hold off on any thoracentesis at this time and try to diurese. Family aware. PLAN: Plan Chronic conditions * Diabetes mellitus type 2: Hold glimepiride. Sliding scale insulin. 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 Continue with lactulose and rifaximin. Continue with spironolactone. * GERD: Continue PPI. * Chronic anemia: Stable. Continue with iron supplementation * Chronic thrombocytopenia: Appears to be resolved as her counts are to 80. VTE prophylaxis with LMWH. CODE STATUS: Addressed with the patient's brother. He stated that she told him before that she want to be full code. We will continue full code for now. Had very lengthy conversation with the patient's son. I did tell him specifically that if in the event of cardiopulmonary arrest that patient would unlikely survive that. However, will maintain full CODE STATUS at present. Patient has been involved with hospice who is working with her regards to palliation treatment patient is not complete hospice care at this time but using hospice services just for palliation. Charges/Coding Visit Charges Inpatient E&M: 79843 Init Hosp L3
[2023-02-04] MEDS: Furosemide 100 MG/10 ML Vial 60 MG IV ×2 (11:27→17:58)
[2023-02-04] MEDS: 0.9% Saline Lock 10 ML Syringe IV ×4 (11:28→23:05)
[2023-02-04 11:30] LABS: Allen Test Positive; Base Excess 20 mmol/L (-2 to +2); Bicarbonate 45.5 mmol/L (22-26); Blood Gas Specimen Type ART; Comment 26/14; FI02 30; Mode BiLevel; O2 Delivery Device BiPAP; PEEP 10; PO2 64 mmHG (75-100); RR 12; SITE L Radial; SO2 89 % (95-99); Total Carbon Dioxide 48 mmol/L; Vt 400; pCO2 81.5 mmHg (35-45); pH 7.36 (7.35-7.45)
[2023-02-04 11:41] LABS: International Normalized Ratio 1.1; Prothrombin Time (Protime)PT. 14.1 SECONDS (11.7-14.9)
[2023-02-04 12:10] LABS: Bedside Glucose 131 mg/dL (74-106)
[2023-02-04] MEDS: Lactulose 20 GM/30 ML UDC PO ×3 (14:09→20:59)
[2023-02-04 17:45] LABS: Bedside Glucose 161 mg/dL (74-106)
[2023-02-04] MEDS: NYSTATIN 500,000 UNIT/5 ML UDC 500000 UNIT PO ×2 (18:54→21:00)
[2023-02-04] MEDS: Atorvastatin Calcium 40 MG Tablet PO (21:00)
[2023-02-04] MEDS: Labetalol 100 MG Tablet 50 MG PO (21:00)
[2023-02-04] MEDS: Latanoprost 0.005% 1 Bottle 1 DRP LEFT EYE (21:00)
[2023-02-04] MEDS: rifAXIMin 550 MG Tablet PO (21:01)
[2023-02-04 21:36] LABS: Bedside Glucose 188 mg/dL (74-106)
--- NOTE | 2023-02-04 22:05 | PCM.HOSP.N ---
Hospitalist Note Patient very agitated with BIPAP, frequently taking it off. Per discussion with RN avoiding ativan. Will trial low dose haldol x 1. If continues to be an issue or becomes more confused may need to consider transition to the ICU for low dose precedex usage. Working on clarifying patient code status. Currently listed Full Code but reporting to staff that she does not want intubated.
[2023-02-04] MEDS: Ondansetron 4 MG/2 ML Vial IV (23:05)
[2023-02-04] MEDS: Haloperidol 1 MG Tablet 0.5 MG PO (23:05)
--- NOTE | 2023-02-04 23:42 | CPS ---
pt continues to rip mask off-placed on 2 l/m via nc
[2023-02-05] VITALS (12 sets, daily range): BP systolic 135–145; BP diastolic 58–106; PULSE 82–94; RESP 12–24; TEMP 36.6–38.1; O2SAT 94–100
[2023-02-05 06:39] LABS: Absolute Lymphocyte Count 0.66 X10^3/uL (0.83-4.51); Absolute Neutrophil Count 6.1 X10^3/uL (2.0-7.7); Basophil% 1.2 % (0-1); Eosinophil# 0.21 X10^3/uL; Eosinophils% 2.6 % (0-5); Hematocrit 25.6 % (37-47); Hemoglobin 7.3 g/dL (12.0-15.0); Lymphocyte # 0.66 X10^3/ul (0.83-4.51); Lymphocyte % 8.1 % (19-41); Mean Corp Hgb Conc 28.5 g/dL (32-36); Mean Corpuscular Hgb 27.2 pg (27.0-32.0); Mean Corpuscular Volume 95.5 fL (81-99); Mean Platelet Vol. 10.2 fl (6.2-12.0); Monocyte# 1.03 X10^3/uL; Monocyte% 12.7 % (0-10); NRBC Flagged by Analyzer 0.2 % (0-5); Neutrophil # 6.08 X10^3/uL (2.7-7.7); Neutrophil % 75.2 % (47-70); Platelet Count 229 K/mm3 (150-450); RBC Distribution Width CV 16.4 % (11.6-14.6); RBC Distribution Width SD 57.5 fl (35.1-43.9); Red Blood Count 2.68 M/mm3 (4.2-5.4); White Blood Count 8.1 K/mm3 (4.4-11.0)
[2023-02-05 07:07] LABS: Anion Gap -1 (5-15); BUN 35 mg/dL (7-18); BUN/Creat Ratio 21.7 RATIO (10-20); Calcium,Total 9.3 mg/dL (8.5-10.1); Chloride 99 mmol/L (98-107); Creatinine, Serum 1.61 mg/dL (0.55-1.02); EST Glomerular Filtration Rate 33 mL/min (>60); Est Glom Filt Rate - Afr Amer 40 mL/min (>60); Estimated Creatinine Clearance 23.13 ml/min; Glucose 140 mg/dL (74-106); Potassium 4.8 mmol/L (3.5-5.1); Sodium Level 137 mmol/L (136-145)
[2023-02-05 07:30] LABS: Bedside Glucose 135 mg/dL (74-106)
[2023-02-05] MEDS: Iron Polysaccharide Complex 150 MG CAPSULE PO (08:03)
[2023-02-05] MEDS: Lactulose 20 GM/30 ML UDC PO ×3 (08:03→21:28)
[2023-02-05] MEDS: Furosemide 100 MG/10 ML Vial 60 MG IV ×2 (08:03→17:13)
[2023-02-05] MEDS: Spironolactone 25 MG Tablet PO (08:03)
[2023-02-05] MEDS: Pantoprazole Sodium 40 MG Tablet PO (08:04)
[2023-02-05] MEDS: Enoxaparin 30 MG/0.3 ML Syringe SC (08:04)
[2023-02-05] MEDS: Labetalol 100 MG Tablet 50 MG PO ×2 (08:04→21:28)
[2023-02-05] MEDS: NYSTATIN 500,000 UNIT/5 ML UDC 500000 UNIT PO ×3 (08:05→21:28)
[2023-02-05] MEDS: rifAXIMin 550 MG Tablet PO ×2 (08:05→21:26)
[2023-02-05] MEDS: 0.9% Saline Lock 10 ML Syringe IV ×2 (08:05→17:13)
--- NOTE | 2023-02-05 08:06 | PN.HOSP_ITS ---
Reason for Visit Reason for Visit: Diagnoses Encephalopathy, unspecified (02/04/23) Unspecified diastolic (congestive) heart failure (02/04/23) Pleural effusion, not elsewhere classified (02/04/23) Acute and chronic respiratory failure with hypercapnia (02/04/23) Subjective Subjective Complains of being short of breath, despite a pulse ox of 97%. Objective Data Objective Data Vital Signs: Vital Signs Temp Pulse Resp BP Pulse Ox O2 Del Method O2 Flow Rate 37.6 C H 89 20 H 145/58 H 100 Nasal Cannula 3 02/05/23 08:00 02/05/23 08:00 02/05/23 08:00 02/05/23 08:00 02/05/23 08:00 02/05/23 08:00 02/05/23 08:00 FiO2 30 02/04/23 23:57 Oxygen Flow Rate (L/min) 3 Oxygen Delivery Method Nasal Cannula Weight: 79.3 kg Body Mass Index (BMI) 33.0 Intake & Output: Intake and Output for Last 24 Hours 02/03/23 02/04/23 02/05/23 23:59 23:59 23:59 Intake Total 545 / 605 60 / 60 Output Total 250 / 250 200 / 200 Balance 295 / 355 -140 / -140 Lab / Micro Data Result Diagrams: 02/05/23 06:20 02/05/23 06:20 Labs: Laboratory Results - last 24 hr 02/04/23 11:15: PT 14.1, INR 1.1 02/04/23 11:48: POC Glucose 131 H 02/04/23 17:08: POC Glucose 161 H 02/04/23 21:09: POC Glucose 188 H 02/05/23 06:20: WBC 8.1, RBC 2.68 L, Hgb 7.3 L, Hct 25.6 L, MCV 95.5, MCH 27.2, MCHC 28.5 L, RDW Std Deviation 57.5 H, RDW Coeff of Jordan 16.4 H, Plt Count 229, MPV 10.2, Immature Gran % (Auto) 0.200, Neut % (Auto) 75.2 H, Lymph % (Auto) 8.1 L, [place] % (Auto) 12.7 H, Eos % (Auto) 2.6, Baso % (Auto) 1.2 H, Absolute Neuts (auto) 6.1, Absolute Lymphs (auto) 0.66 L, Nucleated RBC % 0.2 02/05/23 06:20: Sodium 137, Potassium 4.8, Chloride 99, Carbon Dioxide 39.0 H, Anion Gap -1 L, BUN 35 H, Creatinine 1.61 H, Estim Creat Clear Calc 23.13, Est GFR (MDRD) Af Amer 40 L, Est GFR (MDRD) Non-Af 33 L, BUN/Creatinine Ratio 21.7 H , Glucose 140 H, Calcium 9.3 02/05/23 06:59: POC Glucose 135 H ABG Data ABG results: ABG 02/04/23 11:24 Specimen Type ART Sample Site L Radial pH 7.36 Bicarbonate Actual 45.5 H Total CO2 48 Base Excess 20 H O2 Saturation 89 L O2 % 30 ABG pCO2 81.5 H* ABG pO2 64 L Eliecer Test Positive Respiration Rate 12 O2 Delivery Device BiPAP Vent Mode BiLevel Tidal Volume 400 POC PEEP 10 Crit Call To/Read Back Yes Blood Gas Notified Whom benjamin Clinical Comments Physical Exam Const alert and no apparent distress HEENT head/scalp atraumatic and moist oral mucous membranes Resp normal respiratory effort and no retractions Cardio regular rate, regular rhythm, S1 normal heart sound and S2 normal heart sound GI normal to inspection, nondistended, normoactive bowel sounds, soft to palpation and non-tender Extremity normal to inspection Neuro oriented x3 Assessment & Plan Assessment/Plan (1) Encephalopathy: PLAN: Improving. Metabolic from CO2 narcosis Continue with BiPAP Hold potentiating medications No additional imaging necessary at this time. Ammonia level is only 33 so I do not feel that this is hepatic encephalopathy (2) Acute on chronic respiratory failure with hypercapnia: PLAN: improving VBG PCO2 was 92. Has been subsequent placed on a BiPAP. We will repeat ABG and monitor. Patient may need to be considered for AVAPS (3) Heart failure with preserved ejection fraction: PLAN: Acute on chronic EF of 70% on 2D echocardiogram from January 01, 2023 Change furosemide to 60 mg twice daily. Hold torsemide for now. Not a candidate for JOSE inhibitors nor ARB's given CKD. (4) Pleural effusion, left: PLAN: Patient had a thoracentesis performed on the that removed only 100 cc of blood-tinged serous fluid. Effusion does look worse but would hold off on any thoracentesis at this time and try to diurese. Family aware. PLAN: Plan Chronic conditions * Diabetes mellitus type 2: Hold glimepiride. Sliding scale insulin. 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 Continue with lactulose and rifaximin. Continue with spironolactone. * GERD: Continue PPI. * Chronic anemia: Stable. Continue with iron supplementation * Chronic thrombocytopenia: Appears to be resolved as her counts are to 80. VTE prophylaxis with LMWH. CODE STATUS: Addressed with the patient's brother. He stated that she told him before that she want to be full code. We will continue full code for now. Charges/Coding Visit Charges Inpatient E&M: 30652 Subs Hosp L2
[2023-02-05 11:56] LABS: Bedside Glucose 143 mg/dL (74-106)
[2023-02-05] MEDS: Insulin Lispro 100 UNIT/ML INSULN.PEN SC (16:25)
[2023-02-05 16:55] LABS: Bedside Glucose 168 mg/dL (74-106)
[2023-02-05] MEDS: Haloperidol 1 MG Tablet 0.5 MG PO (21:12)
[2023-02-05] MEDS: Latanoprost 0.005% 1 Bottle 1 DRP LEFT EYE (21:26)
[2023-02-05] MEDS: Atorvastatin Calcium 40 MG Tablet PO (21:28)
[2023-02-06] VITALS (16 sets, daily range): BP systolic 97–159; BP diastolic 47–97; PULSE 76–91; RESP 12–24; TEMP 36.3–37.7; O2SAT 92–100
[2023-02-06] MEDS: Acetaminophen 650 MG Suppository RC (01:23)
[2023-02-06 06:47] LABS: Absolute Lymphocyte Count 0.68 X10^3/uL (0.83-4.51); Absolute Neutrophil Count 4.5 X10^3/uL (2.0-7.7); Basophil# 0.06 X10^3/uL; Eosinophil# 0.23 X10^3/uL; Eosinophils% 3.7 % (0-5); Hematocrit 22.9 % (37-47); Hemoglobin 6.7 g/dL (12.0-15.0); Lymphocyte # 0.68 X10^3/ul (0.83-4.51); Lymphocyte % 10.8 % (19-41); Mean Corp Hgb Conc 29.3 g/dL (32-36); Mean Corpuscular Hgb 27.5 pg (27.0-32.0); Mean Corpuscular Volume 93.9 fL (81-99); Mean Platelet Vol. 10.4 fl (6.2-12.0); Monocyte# 0.77 X10^3/uL; Monocyte% 12.2 % (0-10); NRBC Flagged by Analyzer 0 % (0-5); Neutrophil # 4.53 X10^3/uL (2.7-7.7); Platelet Count 166 K/mm3 (150-450); RBC Distribution Width CV 16.2 % (11.6-14.6); RBC Distribution Width SD 55.6 fl (35.1-43.9); Red Blood Count 2.44 M/mm3 (4.2-5.4); White Blood Count 6.3 K/mm3 (4.4-11.0)
[2023-02-06 07:21] LABS: Anion Gap -2 (5-15); BUN 35 mg/dL (7-18); BUN/Creat Ratio 21.3 RATIO (10-20); Calcium,Total 9.1 mg/dL (8.5-10.1); Chloride 99 mmol/L (98-107); Creatinine, Serum 1.64 mg/dL (0.55-1.02); EST Glomerular Filtration Rate 33 mL/min (>60); Est Glom Filt Rate - Afr Amer 39 mL/min (>60); Estimated Creatinine Clearance 22.71 ml/min; Glucose 92 mg/dL (74-106); Potassium 4.9 mmol/L (3.5-5.1); Sodium Level 138 mmol/L (136-145)
[2023-02-06 07:40] LABS: Bedside Glucose 84 mg/dL (74-106)
--- NOTE | 2023-02-06 08:24 | PN.HOSP_ITS ---
Reason for Visit Reason for Visit: Diagnoses Encephalopathy, unspecified (02/04/23) Unspecified diastolic (congestive) heart failure (02/04/23) Pleural effusion, not elsewhere classified (02/04/23) Acute and chronic respiratory failure with hypercapnia (02/04/23) Subjective Subjective More alert today Objective Data Objective Data Vital Signs: Vital Signs Temp Pulse Resp BP Pulse Ox O2 Del Method O2 Flow Rate 36.6 C 82 18 135/64 H 96 Bi-pap 4 02/06/23 07:53 02/06/23 07:53 02/06/23 07:53 02/06/23 07:53 02/06/23 07:53 02/06/23 07:55 02/06/23 07:53 FiO2 24 02/06/23 07:48 Oxygen Flow Rate (L/min) 4 Oxygen Delivery Method Bi-pap Weight: 79.3 kg Body Mass Index (BMI) 33.0 Intake & Output: Intake and Output for Last 24 Hours 02/04/23 02/05/23 02/06/23 23:59 23:59 23:59 Intake Total 545 / 605 180 / 230 50 / 50 Output Total 250 / 250 400 / 400 200 / 200 Balance 295 / 355 -220 / -170 -150 / -150 Lab / Micro Data Result Diagrams: 02/06/23 06:30 02/06/23 06:30 Labs: Laboratory Results - last 24 hr 02/05/23 11:14: POC Glucose 143 H 02/05/23 16:23: POC Glucose 168 H 02/06/23 06:30: WBC 6.3, RBC 2.44 L, Hgb 6.7 L, Hct 22.9 L, MCV 93.9, MCH 27.5, MCHC 29.3 L, RDW Std Deviation 55.6 H, RDW Coeff of [place] 16.2 H, Plt Count 166, MPV 10.4, Immature Gran % (Auto) 0.300, Neut % (Auto) 72.0 H, Lymph % (Auto) 10.8 L, [place] % (Auto) 12.2 H, Eos % (Auto) 3.7, Baso % (Auto) 1.0, Absolute Neut s (auto) 4.5, Absolute Lymphs (auto) 0.68 L, Nucleated RBC % 0 02/06/23 06:30: Sodium 138, Potassium 4.9, Chloride 99, Carbon Dioxide 41.0 H, Anion Gap -2 L, BUN 35 H, Creatinine 1.64 H, Estim Creat Clear Calc 22.71, Est GFR (MDRD) Af Amer 39 L, Est GFR (MDRD) Non-Af 33 L, BUN/Creatinine Ratio 21.3 H , Glucose 92, Calcium 9.1 02/06/23 07:13: POC Glucose 84 Physical Exam Const alert and no apparent distress Resp normal respiratory effort, no retractions, no use of accessory muscles and clear to auscultation bilaterally Cardio regular rate, regular rhythm, S1 normal heart sound and S2 normal heart sound GI normal to inspection, nondistended, normoactive bowel sounds, soft to palpation, non-tender and non-distended Assessment & Plan Assessment/Plan (1) Encephalopathy: PLAN: Improving. Metabolic from CO2 narcosis Continue with BiPAP Hold potentiating medications No additional imaging necessary at this time. Ammonia level is only 33 so I do not feel that this is hepatic encephalopathy (2) Acute on chronic respiratory failure with hypercapnia: PLAN: improving VBG PCO2 was 92. Has been subsequent placed on a BiPAP. We will repeat ABG and monitor. Patient may need to be considered for AVAPS (3) Heart failure with preserved ejection fraction: PLAN: Acute on chronic EF of 70% on 2D echocardiogram from January 01, 2023 Change furosemide to 60 mg twice daily. Hold torsemide for now. Not a candidate for JOSE inhibitors nor ARB's given CKD. (4) Pleural effusion, left: PLAN: Patient had a thoracentesis performed on the that removed only 100 cc of blood-tinged serous fluid. Effusion does look worse but would hold off on any thoracentesis at this time and try to diurese. Family aware. (5) Anemia: PLAN: I am unsure is this is accurate as all parameters are low, will recheck Hg TF if Hg less than 7. PLAN: Plan Chronic conditions * Diabetes mellitus type 2: Hold glimepiride. Sliding scale insulin. 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 Continue with lactulose and rifaximin. Continue with spironolactone. * GERD: Continue PPI. * Chronic anemia: Stable. Continue with iron supplementation * Chronic thrombocytopenia: Appears to be resolved as her counts are to 80. VTE prophylaxis with LMWH. CODE STATUS: Full code Charges/Coding Visit Charges Inpatient E&M: 93856 Subs Hosp L2
[2023-02-06] MEDS: 0.9% Saline Lock 10 ML Syringe IV ×2 (09:52→22:30)
[2023-02-06] MEDS: Furosemide 100 MG/10 ML Vial 60 MG IV ×2 (09:52→17:22)
[2023-02-06] MEDS: Enoxaparin 30 MG/0.3 ML Syringe SC (10:00)
[2023-02-06] MEDS: Pantoprazole Sodium 40 MG Tablet PO (10:01)
[2023-02-06] MEDS: rifAXIMin 550 MG Tablet PO ×2 (10:01→22:30)
[2023-02-06] MEDS: Iron Polysaccharide Complex 150 MG CAPSULE PO (10:01)
[2023-02-06] MEDS: Lactulose 20 GM/30 ML UDC PO ×4 (10:01→22:27)
[2023-02-06] MEDS: NYSTATIN 500,000 UNIT/5 ML UDC 500000 UNIT PO ×4 (10:02→22:27)
[2023-02-06] MEDS: Labetalol 100 MG Tablet 50 MG PO ×2 (10:02→22:27)
[2023-02-06] MEDS: Spironolactone 25 MG Tablet PO (10:02)
--- NOTE | 2023-02-06 11:38 | CASEMGMT ---
SW spoke with patient about a discharge plan. Patient directed SW to talk with her daughter Mile. SW called Mile. Introduced self and role at [facility]. SW asked about d/c plan and Mile said patient will return home on Hospice. SW let Mile know that therapy is recommending continued therapy for patient. ARCENIO told Mile that patient cannot have home health and Hospice at the same time. Mile said family is with patient all of the time and Hospice has volunteers. SW will notify [place] at Hospice that this is the plan. Plan: d/c home with resumption of [facility]. Lety Velez [employer]
[2023-02-06] MEDS: Insulin Lispro 100 UNIT/ML INSULN.PEN SC ×2 (11:58→17:20)
[2023-02-06 12:21] LABS: Bedside Glucose 161 mg/dL (74-106)
[2023-02-06 15:52] LABS: Absolute Lymphocyte Count 0.56 X10^3/uL (0.83-4.51); Absolute Neutrophil Count 4.9 X10^3/uL (2.0-7.7); Basophil# 0.08 X10^3/uL; Basophil% 1.2 % (0-1); Eosinophil# 0.17 X10^3/uL; Eosinophils% 2.6 % (0-5); Hematocrit 25.5 % (37-47); Lymphocyte # 0.56 X10^3/ul (0.83-4.51); Lymphocyte % 8.4 % (19-41); Mean Corp Hgb Conc 27.5 g/dL (32-36); Mean Corpuscular Hgb 27.1 pg (27.0-32.0); Mean Corpuscular Volume 98.8 fL (81-99); Mean Platelet Vol. 11.2 fl (6.2-12.0); Monocyte# 0.91 X10^3/uL; Monocyte% 13.7 % (0-10); NRBC Flagged by Analyzer 0 % (0-5); Neutrophil # 4.89 X10^3/uL (2.7-7.7); Neutrophil % 73.6 % (47-70); POSITIVE COUNT YES; POSITIVE DIFFERENTIAL YES; Platelet Count 132 K/mm3 (150-450); RBC Distribution Width CV 16.2 % (11.6-14.6); RBC Distribution Width SD 58.4 fl (35.1-43.9); Red Blood Count 2.58 M/mm3 (4.2-5.4); White Blood Count 6.6 K/mm3 (4.4-11.0)
[2023-02-06 15:56] LABS: Differential Indicated SCAN CRITERIA MET
[2023-02-06 16:28] LABS: Differential Comment SCANNED
[2023-02-06 18:35] LABS: Bedside Glucose 204 mg/dL (74-106)
[2023-02-06 21:46] LABS: Bedside Glucose 170 mg/dL (74-106)
[2023-02-06] MEDS: Atorvastatin Calcium 40 MG Tablet PO (22:27)
[2023-02-06] MEDS: Latanoprost 0.005% 1 Bottle 1 DRP LEFT EYE (22:30)
[2023-02-06] MEDS: oxyCODONE 5 MG Tablet PO (23:11)
[2023-02-07] VITALS (9 sets, daily range): BP systolic 128–156; BP diastolic 47–86; PULSE 79–89; RESP 18–20; TEMP 36.2–36.9; O2SAT 86–99
--- NOTE | 2023-02-07 00:04 | NURSING ---
Patient refusing to wear Bipap. Education provided. Patient still refusing. Patient said she would wear her nasal cannula. Patient said she does not want to live. Patient asked to call her daughter. Daughter, Mile, called back. Charge nurse, Nae, talked to Mile. They discussed talking to the physician tomorrow about her code status and what her specific wishes are.
[2023-02-07 07:21] LABS: Hematocrit 28.1 % (37-47); Hemoglobin 7.6 g/dL (12.0-15.0); Mean Corpuscular Hgb 26.6 pg (27.0-32.0); Mean Corpuscular Volume 98.3 fL (81-99); Mean Platelet Vol. 10.2 fl (6.2-12.0); Platelet Count 185 K/mm3 (150-450); RBC Distribution Width CV 16.3 % (11.6-14.6); RBC Distribution Width SD 58.2 fl (35.1-43.9); Red Blood Count 2.86 M/mm3 (4.2-5.4); White Blood Count 7.3 K/mm3 (4.4-11.0)
[2023-02-07 07:30] LABS: Bedside Glucose 114 mg/dL (74-106)
[2023-02-07 07:36] LABS: Anion Gap -4 (5-15); BUN 34 mg/dL (7-18); BUN/Creat Ratio 20.5 RATIO (10-20); Calcium,Total 9.3 mg/dL (8.5-10.1); Chloride 100 mmol/L (98-107); Creatinine, Serum 1.66 mg/dL (0.55-1.02); EST Glomerular Filtration Rate 32 mL/min (>60); Est Glom Filt Rate - Afr Amer 39 mL/min (>60); Estimated Creatinine Clearance 22.44 ml/min; Glucose 119 mg/dL (74-106); Potassium 4.8 mmol/L (3.5-5.1); Sodium Level 139 mmol/L (136-145)
--- NOTE | 2023-02-07 07:54 | PN.HOSP_ITS ---
Reason for Visit Reason for Visit: Diagnoses Anemia, unspecified (02/04/23) Encephalopathy, unspecified (02/04/23) Unspecified diastolic (congestive) heart failure (02/04/23) Pleural effusion, not elsewhere classified (02/04/23) Acute and chronic respiratory failure with hypercapnia (02/04/23) Subjective Subjective Declining BiPAP. Objective Data Objective Data Vital Signs: Vital Signs Temp Pulse Resp BP Pulse Ox O2 Del Method O2 Flow Rate 36.2 C L 79 20 H 128/47 H 93 Nasal Cannula 2 02/07/23 03:33 02/07/23 03:33 02/07/23 03:33 02/07/23 03:33 02/07/23 07:43 02/07/23 07:43 02/07/23 07:43 FiO2 30 02/06/23 23:28 Oxygen Flow Rate (L/min) 2 Oxygen Delivery Method Nasal Cannula Weight: 79.3 kg Body Mass Index (BMI) 33.0 Intake & Output: Intake and Output for Last 24 Hours 02/05/23 02/06/23 02/07/23 23:59 23:59 23:59 Intake Total 180 / 230 530 / 530 Output Total 400 / 400 500 / 600 100 / 100 Balance -220 / -170 30 / -70 -100 / -100 Lab / Micro Data Result Diagrams: 02/07/23 07:08 02/07/23 07:08 Labs: Laboratory Results - last 24 hr 02/06/23 11:57: POC Glucose 161 H 02/06/23 15:40: WBC 6.6, RBC 2.58 L, Hgb 7.0 L, Hct 25.5 L, MCV 98.8 D, MCH 2 7.1, MCHC 27.5 L D, RDW Std Deviation 58.4 H, RDW Coeff of Jordan 16.2 H, Plt Count 132 L, MPV 11.2, Immature Gran % (Auto) 0.500, Neut % (Auto) 73.6 H, Lymph % (Auto) 8.4 L, [place] % (Auto) 13.7 H, Eos % (Auto) 2.6, Baso % (Auto) 1.2 H, Absolute Neuts (auto) 4.9, Absolute Lymphs (auto) 0.56 L, Nucleated RBC % 0, Differential Comment SCANNED 02/06/23 17:14: POC Glucose 204 H 02/06/23 21:27: POC Glucose 170 H 02/07/23 07:04: POC Glucose 114 H 02/07/23 07:08: WBC 7.3, RBC 2.86 L, Hgb 7.6 L, Hct 28.1 L, MCV 98.3, MCH 26.6 L , MCHC 27.0 L, RDW Std Deviation 58.2 H, RDW Coeff of Jordan 16.3 H, Plt Count 185, MPV 10.2 02/07/23 07:08: Sodium 139, Potassium 4.8, Chloride 100, Carbon Dioxide 43.0 H, Anion Gap -4 L, BUN 34 H, Creatinine 1.66 H, Estim Creat Clear Calc 22.44, Est GFR (MDRD) Af Amer 39 L, Est GFR (MDRD) Non-Af 32 L, BUN/Creatinine Ratio 20.5 H , Glucose 119 H, Calcium 9.3 Physical Exam Const alert and no apparent distress HEENT head/scalp atraumatic and moist oral mucous membranes Resp normal respiratory effort, no retractions, no use of accessory muscles and clear to auscultation bilaterally Cardio regular rate, regular rhythm, S1 normal heart sound and S2 normal heart sound GI normal to inspection, nondistended, normoactive bowel sounds, soft to palpation, non-tender and non-distended Assessment & Plan Assessment/Plan (1) Encephalopathy: PLAN: Improving. Metabolic from CO2 narcosis Continue with BiPAP as patient allows (declining mostly) Hold potentiating medications No additional imaging necessary at this time. Ammonia level is only 33 so I do not feel that this is hepatic encephalopathy (2) Acute on chronic respiratory failure with hypercapnia: PLAN: improving VBG PCO2 was 92. Has been subsequent placed on a BiPAP. We will repeat ABG and monitor. (3) Heart failure with preserved ejection fraction: PLAN: Acute on chronic EF of 70% on 2D echocardiogram from January 01, 2023 Not a candidate for JOSE inhibitors nor ARB's given CKD. Change back to oral torsemide, change to TID (4) Pleural effusion, left: PLAN: Patient had a thoracentesis performed on the that removed only 100 cc of blood-tinged serous fluid. Effusion does look worse but would hold off on any thoracentesis at this time and try to diurese. Family aware. (5) Anemia: PLAN: Chronic I am unsure is this is accurate as all parameters are low, will recheck Hg TF if Hg less than 7. Hg stable. PLAN: Plan Chronic conditions * Diabetes mellitus type 2: Hold glimepiride. Sliding scale insulin. 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 Continue with lactulose and rifaximin. Continue with spironolactone. * GERD: Continue PPI. * Chronic anemia: Stable. Continue with iron supplementation * Chronic thrombocytopenia: Appears to be resolved as her counts are to 80. VTE prophylaxis with LMWH. CODE STATUS: Full code Discharge back to home with hospice for palliation.
[2023-02-07] MEDS: Iron Polysaccharide Complex 150 MG CAPSULE PO (09:51)
[2023-02-07] MEDS: Pantoprazole Sodium 40 MG Tablet PO (09:51)
[2023-02-07] MEDS: rifAXIMin 550 MG Tablet PO (09:52)
[2023-02-07] MEDS: Labetalol 100 MG Tablet 50 MG PO (09:52)
[2023-02-07] MEDS: Spironolactone 25 MG Tablet PO (09:52)
[2023-02-07] MEDS: Menthol/Lanolin/Calamine/Znox 113 GM Tube 1 APPLIC TOPICAL (09:57)
[2023-02-07] MEDS: Lactulose 20 GM/30 ML UDC PO ×2 (09:58→13:25)
[2023-02-07] MEDS: Enoxaparin 30 MG/0.3 ML Syringe SC (10:00)
[2023-02-07] MEDS: Furosemide 100 MG/10 ML Vial 60 MG IV (10:01)
[2023-02-07] MEDS: NYSTATIN 500,000 UNIT/5 ML UDC 500000 UNIT PO ×2 (10:02→13:25)
[2023-02-07] MEDS: 0.9% Saline Lock 10 ML Syringe IV (10:02)
[2023-02-07 12:06] LABS: Bedside Glucose 157 mg/dL (74-106)
--- NOTE | 2023-02-07 12:10 | DCINST_ITS ---
Discharge Instructions Diet Discharge Diet: 8 Cup Fluid Restriction and 2000 mg Sodium Diet Dressing / Incision Call your doctor if you observe: Shortness of breath Follow Up Care Test Results: Test results from this visit will be discussed in further detail at your follow- up appointment, if applicable. Discharge Plan Admission Admit Date/Time: 02/04/23 10:10 Primary Reason for Your Visit: metabolic encepalopathy. CHF exacerbation. Attending Provider: Ildefonso Faith Primary Care Provider: Josiah Smith Discharge Orders/Prescriptions Prescriptions: New nystatin 100,000 unit/mL Suspension 500,000 unit PO 4X/DAY 10 Days Qty: 200 0RF Continued atorvastatin [Lipitor] 40 mg Tablet 40 mg PO QHS spironolactone 25 mg tablet 25 mg PO DAILY Qty: 30 0RF Label Comments: TAKE 1 TABLET BY MOUTH TWICE DAILY albuterol sulfate 90 mcg/actuation HFA aerosol inhaler 2 puff INHALATION Q4H PRN (Reason: SOB) Label Comments: INHALE 2 PUFFS DIRECTED EVERY 4 HOURS NEEDED latanoprost 0.005 % Drops 1 drp LEFT EYE QPM Xifaxan 550 mg tablet 550 mg PO BID polysaccharide iron complex [iFerex 150] 150 mg iron Capsule 150 mg PO DAILY pantoprazole 40 mg Tablet,Delayed Release (Dr/Ec) 40 mg PO DAILY labetalol 100 mg Tablet 50 mg PO BID simethicone 80 mg Tablet,Chewable 80 mg PO QHS neomycin 500 mg Tablet 500 mg PO BID 7 Days Qty: 14 0RF glimepiride 2 mg tablet 2 mg PO DAILY Qty: 60 0RF lactulose 20 gram/30 mL Solution 20 g PO 4X/DAY Qty: 0 0RF Changed torsemide 20 mg Tablet 20 mg PO TID Qty: 90 0RF Discontinued sodium bicarbonate 650 mg tablet 1,300 mg PO TID metronidazole 500 mg Tablet 500 mg PO BID 7 Days Qty: 14 0RF Referrals / Follow Up: [facility] [Provider Group] - Within 1 Month Josiah Smith MD [Primary Care Provider] - Within 2 Weeks Disposition Disposition (needs filled in before D/C Order can be placed): Hospice in Home
--- NOTE | 2023-02-07 12:15 | DS.PCM_ITS ---
Providers Date of Admission: 02/04/23 Primary Care Physician: Dr. Josiah Smith MD Reason For Visit: ACUTE ON CHRONIC RESPIRATORY FAILURE W/ HYPOXIA Diagnosis Discharge Diagnosis (1) Encephalopathy: Status: Acute Code(s): G93.40 - Encephalopathy, unspecified Plan: Improving. Metabolic from CO2 narcosis Continue with BiPAP as patient allows (declining mostly) Hold potentiating medications No additional imaging necessary at this time. Ammonia level is only 33 so I do not feel that this is hepatic encephalopathy (2) Acute on chronic respiratory failure with hypercapnia: Status: Chronic Code(s): J96.22 - Acute and chronic respiratory failure with hypercapnia Plan: improving VBG PCO2 was 92. Has been subsequent placed on a BiPAP. We will repeat ABG and monitor. (3) Heart failure with preserved ejection fraction: Status: Acute Code(s): I50.30 - Unspecified diastolic (congestive) heart failure Plan: Acute on chronic EF of 70% on 2D echocardiogram from January 01, 2023 Not a candidate for JOSE inhibitors nor ARB's given CKD. Change back to oral torsemide, change to TID (4) Pleural effusion, left: Status: Inactive Code(s): J90 - Pleural effusion, not elsewhere classified Plan: Patient had a thoracentesis performed on the that removed only 100 cc of blood-tinged serous fluid. Effusion does look worse but would hold off on any thoracentesis at this time and try to diurese. Family aware. (5) Anemia: Status: Acute Code(s): D64.9 - Anemia, unspecified Plan: Chronic I am unsure is this is accurate as all parameters are low, will recheck Hg TF if Hg less than 7. Hg stable. Plan Chronic conditions * Diabetes mellitus type 2: Hold glimepiride. Sliding scale insulin. 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 Continue with lactulose and rifaximin. Continue with spironolactone. * GERD: Continue PPI. * Chronic anemia: Stable. Continue with iron supplementation * Chronic thrombocytopenia: Appears to be resolved as her counts are to 80. VTE prophylaxis with LMWH. CODE STATUS: Full code Discharge back to home with hospice for palliation. Medications at Discharge Home Medications atorvastatin 40 mg tablet (Lipitor) 40 mg PO QHS cholesterol 02/09/22 spironolactone 25 mg tablet 25 mg PO DAILY liver #30 tabs 10/19/22 albuterol sulfate 90 mcg/actuation aerosol inhaler 2 puff inhalation Q4H PRN SOB 11/20/22 latanoprost 0.005 % eye drops 1 drp LEFT EYE QPM eye health 12/31/22 rifaximin 550 mg tablet (Xifaxan) 550 mg PO BID bowels 12/31/22 labetalol 100 mg tablet 50 mg PO BID blood pressure 01/12/23 pantoprazole 40 mg tablet,delayed release 40 mg PO DAILY reflux 01/12/23 polysaccharide iron complex 150 mg iron capsule (iFerex 150) 150 mg PO DAILY supplement 01/12/23 simethicone 80 mg chewable tablet 80 mg PO QHS gas 01/12/23 glimepiride 2 mg tablet 2 mg PO DAILY #60 tabs 01/19/23 neomycin 500 mg tablet 500 mg PO BID 7 days #14 tabs 01/19/23 lactulose 20 gram/30 mL oral solution 20 g (30 mL) PO 4X/DAY #0 mL 01/28/23 nystatin 100,000 unit/mL oral suspension 500,000 unit (5 mL) PO 4X/DAY 10 days #200 mL 02/07/23 torsemide 20 mg tablet 20 mg PO TID WATER PILL #90 tabs 02/07/23 Hospital Course Operations None Procedures None Weight / BMI Weight Weight: 79.3 kg Body Mass Index (BMI) 33.0 ABG / Lab / Microbiology Data Result Diagrams: 02/07/23 07:08 02/07/23 07:08 Laboratory: Laboratory Results - last 24 hr 02/06/23 11:57: POC Glucose 161 H 02/06/23 15:40: WBC 6.6, RBC 2.58 L, Hgb 7.0 L, Hct 25.5 L, MCV 98.8 D, MCH 27.1, MCHC 27.5 L D, RDW Std Deviation 58.4 H, RDW Coeff of Jordan 16.2 H, Plt Count 132 L, MPV 11.2, Immature Gran % (Auto) 0.500, Neut % (Auto) 73.6 H, Lymph % (Auto) 8.4 L, [place] % (Auto) 13.7 H, Eos % (Auto) 2.6, Baso % (Auto) 1.2 H, Absolute Neuts (auto) 4.9, Absolute Lymphs (auto) 0.56 L, Nucleated RBC % 0, Differential Comment SCANNED 02/06/23 17:14: POC Glucose 204 H 02/06/23 21:27: POC Glucose 170 H 02/07/23 07:04: POC Glucose 114 H 02/07/23 07:08: WBC 7.3, RBC 2.86 L, Hgb 7.6 L, Hct 28.1 L, MCV 98.3, MCH 26.6 L , MCHC 27.0 L, RDW Std Deviation 58.2 H, RDW Coeff of Jodran 16.3 H, Plt Count 185, MPV 10.2 02/07/23 07:08: Sodium 139, Potassium 4.8, Chloride 100, Carbon Dioxide 43.0 H, Anion Gap -4 L, BUN 34 H, Creatinine 1.66 H, Estim Creat Clear Calc 22.44, Est GFR (MDRD) Af Amer 39 L, Est GFR (MDRD) Non-Af 32 L, BUN/Creatinine Ratio 20.5 H , Glucose 119 H, Calcium 9.3 02/07/23 11:45: POC Glucose 157 H D/C Instructions Discharge Diet: 8 Cup Fluid Restriction and 2000 mg Sodium Diet Call your doctor if you observe: Shortness of breath Meaningful Use Info Meaningful Use Diagnoses (Choose all that apply): CHF CHF JOSE/ARB ordered at discharge?: No Reason JOSE/ARB not ordered?: Worsening renal disease Documented LVEF (%): 70 Discharge Plan Admission Admit Date/Time: 02/04/23 10:10 Primary Reason for Your Visit: metabolic encepalopathy. CHF exacerbation. Attending Provider: Ildefonso Faith Primary Care Provider: Josiah Smith Discharge Orders/Prescriptions Prescriptions: New nystatin 100,000 unit/mL Suspension 500,000 unit PO 4X/DAY 10 Days Qty: 200 0RF Continued atorvastatin [Lipitor] 40 mg Tablet 40 mg PO QHS spironolactone 25 mg tablet 25 mg PO DAILY Qty: 30 0RF Label Comments: TAKE 1 TABLET BY MOUTH TWICE DAILY albuterol sulfate 90 mcg/actuation HFA aerosol inhaler 2 puff INHALATION Q4H PRN (Reason: SOB) Label Comments: INHALE 2 PUFFS DIRECTED EVERY 4 HOURS NEEDED latanoprost 0.005 % Drops 1 drp LEFT EYE QPM Xifaxan 550 mg tablet 550 mg PO BID polysaccharide iron complex [iFerex 150] 150 mg iron Capsule 150 mg PO DAILY pantoprazole 40 mg Tablet,Delayed Release (Dr/Ec) 40 mg PO DAILY labetalol 100 mg Tablet 50 mg PO BID simethicone 80 mg Tablet,Chewable 80 mg PO QHS neomycin 500 mg Tablet 500 mg PO BID 7 Days Qty: 14 0RF glimepiride 2 mg tablet 2 mg PO DAILY Qty: 60 0RF lactulose 20 gram/30 mL Solution 20 g PO 4X/DAY Qty: 0 0RF Changed torsemide 20 mg Tablet 20 mg PO TID Qty: 90 0RF Discontinued sodium bicarbonate 650 mg tablet 1,300 mg PO TID metronidazole 500 mg Tablet 500 mg PO BID 7 Days Qty: 14 0RF Referrals / Follow Up: [facility] [Provider Group] - Within 1 Month Josiah Smith MD [Primary Care Provider] - Within 2 Weeks Disposition Disposition (needs filled in before D/C Order can be placed): Hospice in Home Charges/Coding Visit Charges Inpatient E&M: 83918 Disch Hosp
--- NOTE | 2023-02-07 12:34 | NURSING ---
This RN called pt's daughter, Mile, and explained that the doctor was going to discharge patient home today and wanted clarification that they wanted home hospice resumed. Mile stated that they did want home hospice resumed upon discharge and asked when they needed to pick patient up today. This RN stated that we needed to inform hospice of discharge with intent to resume hospice services and would notify her when a good time to pick patient up would be.
--- NOTE | 2023-02-07 13:11 | NURSING ---
This RN called daughter, Mile, to make sure that the patient had oxygen concentrator at home and a portable oxygen tank that they can bring with them when they pick her up for discharge home. Mile stated that patient has these things and will call back to let us know who is picking her up and an approximate time.
== END 2023-02-07 15:13 | disposition hospice, home (50) | DRG 291 ==
LOC: ED 05:27 → PCU 09:23
PROVIDERS: Emergency Provider Emergency Medicine; PCP Family Medicine
DX: I13.0 Hypertensive heart and chronic kidney disease with heart failure and stage 1 through stage 4 chronic kidney disease, or unspecified chronic kidney disease (principal); J96.22 Acute and chronic respiratory failure with hypercapnia; G93.41 Metabolic encephalopathy; I50.33 Acute on chronic diastolic (congestive) heart failure; N18.4 Chronic kidney disease, stage 4 (severe); D69.6 Thrombocytopenia, unspecified; E11.22 Type 2 diabetes mellitus with diabetic chronic kidney disease; D64.9 Anemia, unspecified; E66.9 Obesity, unspecified; K74.60 Unspecified cirrhosis of liver; J44.9 Chronic obstructive pulmonary disease, unspecified; K21.9 Gastro-esophageal reflux disease without esophagitis; Z68.33 Body mass index [BMI] 33.0-33.9, adult; Z79.84 Long term (current) use of oral hypoglycemic drugs; Z79.899 Other long term (current) drug therapy; Z87.891 Personal history of nicotine dependence
CPT/HCPCS: 36415; 36600; 71045; 80048; 80053; 80076; 82140; 82803; 82962; 83880; 84443; 85025; 85027; 85610; 94002; 94003; 94762; 97110; 97162; 97166; 97530; 97535; 97802; 99285; A4216; J1940; J2405

== ENCOUNTER 2023-02-09 14:31 | Inpatient (IN) | payer MEDICARE, MEDICAID, SELFPAY ==
[2023-02-09] VITALS (26 sets, daily range): BP systolic 88–221; BP diastolic 37–202; PULSE 70–102; RESP 13–23; TEMP 36.3–38.6; O2SAT 95–100; BMI 35.3; BMI 30.3
[2023-02-09] MEDS: Succinylcholine Chloride 200 MG/10 ML SYRINGE 150 MG IV (14:38)
[2023-02-09] MEDS: Etomidate 20 MG/10 ML Vial IV (14:38)
--- NOTE | 2023-02-09 14:41 | CT_ITS ---
STUDY: CT BRAIN WITHOUT CONTRAST REASON FOR EXAM: Female, 72 years old. Altered mental status Individualized dose optimization techniques were used for this CT. TECHNIQUE: Transaxial CT imaging of the brain was performed without administration of intravenous contrast material. COMPARISON: 01/23/2023 report only. images not available FINDINGS: There are calcifications around the carotid artery. These are noted in the cavernous carotid arteries. Normal calvarium. Normal soft tissues. ET tube and NG tube in place. There is mild cerebral atrophy with widening of the extra-axial spaces and ventricular dilatation. There are areas of decreased attenuation within the white matter tracts of the supratentorial brain, consistent with microvascular disease changes. Normal basal ganglia and thalami. Normal brainstem. There is mild cerebellar atrophy. There is no intracranial hemorrhage. There are no findings of an acute ischemic infarction. There is sinus disease. ASPECTS Score for Acute Strokes: 07/28 CT/Brain/Head without Contrast IMPRESSION: There are no acute findings. Chronic involutional changes of the brain. Electronically Signed: Dane Owens MD at 17:10 EDT ,
--- NOTE | 2023-02-09 14:41 | EKG12_ITS ---
Test Reason : UNRESPONSIVE Blood Pressure : / mmHG Vent. Rate : 066 BPM Atrial Rate : 066 BPM P-R Int : 154 ms QRS Dur : 140 ms QT Int : 432 ms P-R-T Axes : 029 269 071 degrees QTc Int : 452 ms Normal sinus rhythm Right bundle branch block Abnormal ECG Confirmed by TEJ ROWELL, PHONG ([id number]), film or videotape editor EDDIE JEAN ([id number]) on 02/12/2023 9:17:21 AM Referred By: WILL Confirmed By:PHONG BURNHAM MD
--- NOTE | 2023-02-09 14:41 | EX.ED.DYSGE1 ---
HPI History of Present Illness Chief Complaint: Unresponsive Narrative Narrative: 72-year-old female here with hypoxia, altered mental status. Per EMS they were called for shortness of breath. They note the patient hypoxic to 80s. Do note patient had intermittent episodes of syncope. They noted runs of nonsustained V. tach. They state there is a pulse. States her glucose was 129. They state patient was satting well on nonrebreather. States her blood pressure was acceptable 100 systolic. Patient was not found down. [facility] Medical History Abdominal pain Anasarca Anemia Ascites Asthma Cirrhosis Cirrhosis CKD (chronic kidney disease), stage IV COPD (chronic obstructive pulmonary disease) Depressive disorder Diabetes mellitus Elevated brain natriuretic peptide (BNP) level Elevated troponin I level Fever GERD (gastroesophageal reflux disease) Hepatic encephalopathy Hernia history diagnostic hysteroscopy history thrombendarterectomy neck Hypertension Metabolic encephalopathy Osteoarthrosis Pleural effusion, left Pneumonia Portal vein thrombosis Rectus sheath hematoma Splenic vein thrombosis Thrombocytopenia Tinea pedis Home Medications atorvastatin 40 mg tablet (Lipitor) 40 mg PO QHS cholesterol 02/09/22 [History Last Taken 07/17/22] spironolactone 25 mg tablet 25 mg PO DAILY liver #30 tabs 10/19/22 [Rx Last Taken Unknown] albuterol sulfate 90 mcg/actuation aerosol inhaler 2 puff inhalation Q4H PRN SOB 11/20/22 [History Last Taken Unknown] latanoprost 0.005 % eye drops 1 drp LEFT EYE QPM eye health 12/31/22 [History Last Taken Unknown] rifaximin 550 mg tablet (Xifaxan) 550 mg PO BID bowels 12/31/22 [History Last Taken Unknown] labetalol 100 mg tablet 50 mg PO BID blood pressure 01/12/23 [History Last Taken Unknown] pantoprazole 40 mg tablet,delayed release 40 mg PO DAILY reflux 01/12/23 [History Last Taken Unknown] polysaccharide iron complex 150 mg iron capsule (iFerex 150) 150 mg PO DAILY supplement 01/12/23 [History Last Taken Unknown] simethicone 80 mg chewable tablet 80 mg PO QHS gas 01/12/23 [History Last Taken Unknown] glimepiride 2 mg tablet 2 mg PO DAILY #60 tabs 01/19/23 [Rx Last Taken Unknown] neomycin 500 mg tablet 500 mg PO BID 7 days #14 tabs 01/19/23 [Rx Last Taken Unknown] lactulose 20 gram/30 mL oral solution 20 g (30 mL) PO 4X/DAY #0 mL 01/28/23 [Rx Last Taken Unknown] nystatin 100,000 unit/mL oral suspension 500,000 unit (5 mL) PO 4X/DAY 10 days #200 mL 02/07/23 [Rx Last Taken Unknown] torsemide 20 mg tablet 20 mg PO TID WATER PILL #90 tabs 02/07/23 [Rx Last Taken Unknown] Allergy/AdvReac Type Severity Reaction Status Date / Time suture Allergy Mild rash/ Verified 02/09/23 15:47 wound dehisence amoxicillin Allergy Unknown Verified 02/09/23 15:47 azithromycin Allergy Shortness Verified 02/09/23 15:47 of breath celecoxib [From Celebrex] Allergy Other Verified 02/09/23 15:47 ciprofloxacin HCl Allergy Shortness Verified 02/09/23 15:47 [From Cipro] of breath cortisone Allergy Swelling Verified 02/09/23 15:47 doxycycline Allergy Shortness Verified 02/09/23 15:47 of breath erythromycin base Allergy Unknown Verified 02/09/23 15:47 fexofenadine [From Ashlee] Allergy Unknown Verified 02/09/23 15:47 ibuprofen Allergy Shortness Verified 02/09/23 15:47 of breath Iodinated Contrast Media Allergy Shortness Verified 02/09/23 15:47 [DYEE] of breath iodine Allergy Shortness Verified 02/09/23 15:47 of breath levofloxacin [From Levaquin] Allergy Shortness Verified 02/09/23 15:47 of breath lorazepam [From Ativan] Allergy Shortness Verified 02/09/23 15:47 of breath nitrofurantoin Allergy Shortness Verified 02/09/23 15:47 macrocrystalline of breath [From Macrobid] Penicillins Allergy Shortness Verified 02/09/23 15:47 of breath rofecoxib [From Vioxx] Allergy Unknown Verified 02/09/23 15:47 Sulfa (Sulfonamide Allergy Shortness Verified 02/09/23 15:47 Antibiotics) of breath sulfamethoxazole Allergy Shortness Verified 02/09/23 15:47 [From Bactrim] of breath trimethoprim [From Bactrim] Allergy Shortness Verified 02/09/23 15:47 of breath amlodipine [From Norvasc] AdvReac Upset Verified 02/09/23 15:47 Stomach MISC BP MED AdvReac Shortness Uncoded 02/09/23 15:47 of breath Family History Mother Heart disease Brother Heart disease Surgical History History of bilateral salpingo-oophorectomy History of endarterectomy History of laparoscopic cholecystectomy History of oral surgery S/P TIPS (transjugular intrahepatic portosystemic shunt) Social History household members: spouse housing: house Smoking Status: Former smoker alcohol intake: never substance use type: does not use ROS ROS ED Review of Systems ROS Unobtainable: due to encephalopathy EXAM Physical Exam Narrative Exam Narrative: Nursing triage notes reviewed, Vital signs reviewed Constitutional: please see mdm HENT: MMM Eyes: Pupils equal round and reactive to light, Extraocular muscles intact Neck: No JVD Lungs: Diminished breath sounds throughout, no obvious rales Heart: Regular rate no murmurs Abdomen: Soft, no apparent tenderness : Normal-appearing genitalia Extremities: No edema, no obvious deformities, no AV fistula Neuro: Patient was somnolent, diffuse encephalopathic, appears to move all 4 extremities, appears to have sensation all 4 extremities, Skin: No obvious cellulitis noted Const Vital Signs: 02/09/23 14:33 02/09/23 14:39 02/09/23 14:45 Temperature 98 F Temperature Source Temporal Pulse Rate 70 Respiratory Rate Blood Pressure 95/72 Blood Pressure Mean 79 Pulse Ox 100 Oxygen Delivery Method Ambu-Bag Ambu-Bag 02/09/23 14:38 02/09/23 15:41 02/09/23 15:09 Temperature Temperature Source Pulse Rate 72 78 Respiratory Rate 20 H 18 20 H Blood Pressure 141/85 H Blood Pressure Mean 103 Pulse Ox 97 Oxygen Delivery Method Mechanical Ventilator 02/09/23 15:17 02/09/23 15:32 02/09/23 15:45 Temperature Temperature Source Pulse Rate 78 80 70 Respiratory Rate 20 H 20 H 17 Blood Pressure 142/63 H Blood Pressure Mean 82 Pulse Ox 97 Oxygen Delivery Method 02/09/23 16:00 02/09/23 16:30 02/09/23 16:45 Temperature Temperature Source Pulse Rate 70 78 Respiratory Rate 21 H 23 H Blood Pressure 117/84 H 146/101 H 172/80 H Blood Pressure Mean 94 116 108 Pulse Ox 95 Oxygen Delivery Method MDM MDM MDM Narrative Medical decision making narrative: Chief Complaint: Hypoxia, altered mental status External records reviewed: Recent mission on 02/04/2023 for acute on chronic respiratory failure with hypercapnia. Apparently enrolled in hospice but still full code. Was not intubated at that time. Echocardiogram from last year, January 2022 shows ejection fraction 75% MDM: Patient was initially altered, somnolent, encephalopathic, not protecting her airway. She was intubated immediately for expected clinical course (please see above procedure note). OG, Edwards placed. Labs and images were ordered. I considered the following differential diagnosis: Intracranial hemorrhage, metabolic encephalopathy, infectious encephalopathy, hypercapnia, anemia, hypoglycemia, arrhythmia, myocardial ischemia Patient's labs images remarkable for large worsening pleural effusion is a likely etiology of the patient's hypoxia. in Terms her altered mental status she is likely suffering from hyperammonemia with an elevated ammonia level from baseline. There is no signs of hypercapnia, new arrhythmia, STEMI. There are signs of elevation in the patient troponin which is likely secondary to hypoxia and severe anemia which is contributing to her overall encephalopathy. Severe anemia treated with blood transfusion. Patient's lactate was elevated. I believe the patient's lactate elevation secondary to endorgan hypoperfusion from anemia and hypoxia rather than abnormal host response to systemic infection or sepsis patient was given blood transfusion. She given 1 L normal saline for gentle fluid resuscitation. CT scan of the head shows no evidence of intracranial normalities. CT scan of the chest pending at this time, I considered obtaining a CT of the chest with patient's contrast allergy as well as a GFR of only 32 precluding a contrasted study. Discussed case with the internal medicine doctor (Dr. Guidry) as well as critical care physician (Dr. Skinner) EKG shows normal sinus rhythm, left axis deviation, right bundle branch block, no STEMI. Similar to prior on 02/04/23. Factors affecting care: History of COPD, CHF, cirrhosis, pleural effusions, portal vein thrombosis Social determinants of health: Goals of care discussion: Patient's sister and [id number] noted the patient's wishes would be to be full code. History obtained from others: EMS, the patient's family members Shared decision making: I will have a discussion with the patient and or visitors regarding risk/benefits of further testing or admission. They will be made aware of of the risk/benefits inherent in this decision they will be given the opportunity to voice understanding. Consults: Critical care, internal medicine Lab Data Attestation: I reviewed the patient's lab results. Lab results narrative: ABG without significant respiratory acidosis, CO2 retention, noted hyperoxia will decrease FiO2 CBC with no leukocytosis to suggest systemic inflammation or infection, hemoglobin is less than 7 concerning for severe anemia, no thrombocytopenia noted BMP without significant Electrolyte normalities, no anion gap to suggest endorgan hypoperfusion, no obvious Lactate elevated consistent with endorgan hypoperfusion. I do not believe this patient's lactate elevation is secondary to infection she had no fever white count however did have signs of poor perfusion including hypoxia and anemia which is the likely cause of her lactate elevation. We will give 1 L of fluid for gentle full resuscitation but would not give her 30 cc/kg bolus as to not exacerbate her underlying heart failure, pleural effusion etc. Initial troponin elevated concerning for myocardial ischemia likely demand event secondary to anemia and hypoxia. No EKG changes to suggest an acute STEMI EKG with normal sinus rhythm, left axis deviation, right bundle branch block, no STEMI, no acute changes from prior EKG last week TSH within normal limits no signs of myxedema coma, hypothyroid crisis LFTs show no evidence of hepatobiliary pathology. Lipase is wnl indicating no pancreatic inflammation. Blood cultures are pending UA without evidence of infection Ammonia level elevated from prior from 33 up to 51 today concerning for hepatic encephalopathy CT scan of the head with no acute findings Labs: Laboratory Results - last 24 hr 02/09/23 02/09/23 02/09/23 15:20 15:20 15:20 WBC 5.6 RBC 2.50 L Hgb 6.8 L Hct 24.1 L MCV 96.4 MCH 27.2 MCHC 28.2 L RDW Std Deviation 58.2 H RDW Coeff of Jordan 16.3 H Plt Count 153 MPV 10.4 Immature Gran % (Auto) 1.100 H Neut % (Auto) 56.1 Lymph % (Auto) 23.4 Grant % (Auto) 13.7 H Eos % (Auto) 4.8 Baso % (Auto) 0.9 Absolute Neuts (auto) 3.2 Absolute Lymphs (auto) 1.32 Nucleated RBC % 0 Sodium 142 Potassium 4.2 Chloride 109 H Carbon Dioxide 34.0 H Anion Gap -1 L BUN 27 H Creatinine 1.35 H Estim Creat Clear Calc 27.59 Est GFR (MDRD) Af Amer 49 L Est GFR (MDRD) Non-Af 41 L BUN/Creatinine Ratio 20.0 Glucose 84 Lactic Acid 2.8 H* Calcium 7.1 L Phosphorus Magnesium Total Bilirubin 0.50 AST 30 ALT 20 Alkaline Phosphatase 98 Ammonia Troponin I High Sens 82 H Total Protein 4.8 L Albumin 1.8 L Globulin 3.0 Albumin/Globulin Ratio 0.6 L Lipase 32 TSH 3.63 Urine Color Urine Clarity Urine pH Ur Specific Proctor U Specif Grav (Refrac) Urine Protein Urine Glucose (UA) Urine Ketones Urine Occult Blood Urine Nitrite Urine Bilirubin Urine Urobilinogen Ur Leukocyte Esterase Urine RBC Urine WBC Ur Squamous Epith Cells Ur Transition Epith Cell Ur Renal Epithelial Cell Calcium Oxalate Crystal Uric Acid Crystals Triple Phos Crystals Other Crystals Amorphous Sediment Urine Bacteria Hyaline Casts Fine Granular Casts Coarse Granular Casts Waxy Casts RBC Casts WBC Casts Urine Mucus Urine Trichomonas Urine Yeast 02/09/23 02/09/23 02/09/23 15:20 15:20 15:39 WBC RBC Hgb Hct MCV MCH MCHC RDW Std Deviation RDW Coeff of Jordan Plt Count MPV Immature Gran % (Auto) Neut % (Auto) Lymph % (Auto) Grant % (Auto) Eos % (Auto) Baso % (Auto) Absolute Neuts (auto) Absolute Lymphs (auto) Nucleated RBC % Sodium Potassium Chloride Carbon Dioxide Anion Gap BUN Creatinine Estim Creat Clear Calc Est GFR (MDRD) Af Amer Est GFR (MDRD) Non-Af BUN/Creatinine Ratio Glucose Lactic Acid Calcium Phosphorus 3.5 Magnesium 1.7 Total Bilirubin AST ALT Alkaline Phosphatase Ammonia 51.0 H Troponin I High Sens Total Protein Albumin Globulin Albumin/Globulin Ratio Lipase TSH Urine Color Yellow Urine Clarity Sl. Cloudy Urine pH 6.0 Ur Specific Proctor 1.015 U Specif Grav (Refrac) Urine Protein 100 H Urine Glucose (UA) Normal Urine Ketones Negative Urine Occult Blood 150 H Urine Nitrite Negative Urine Bilirubin Negative Urine Urobilinogen Normal Ur Leukocyte Esterase Negative Urine RBC 10-25 SEEN Urine WBC 0 SEEN Ur Squamous Epith Cells 0-5 SEEN Ur Transition Epith Cell Ur Renal Epithelial Cell Calcium Oxalate Crystal Uric Acid Crystals Triple Phos Crystals Other Crystals Amorphous Sediment 1+ URATE Urine Bacteria 0 SEEN Hyaline Casts Fine Granular Casts Coarse Granular Casts Waxy Casts RBC Casts WBC Casts Urine Mucus 0 SEEN Urine Trichomonas Urine Yeast 02/09/23 16:00 WBC RBC Hgb Hct MCV MCH MCHC RDW Std Deviation RDW Coeff of Jordan Plt Count MPV Immature Gran % (Auto) Neut % (Auto) Lymph % (Auto) Grant % (Auto) Eos % (Auto) Baso % (Auto) Absolute Neuts (auto) Absolute Lymphs (auto) Nucleated RBC % Sodium Potassium Chloride Carbon Dioxide Anion Gap BUN Creatinine Estim Creat Clear Calc Est GFR (MDRD) Af Amer Est GFR (MDRD) Non-Af BUN/Creatinine Ratio Glucose Lactic Acid Calcium Phosphorus Magnesium Total Bilirubin AST ALT Alkaline Phosphatase Ammonia Troponin I High Sens Total Protein Albumin Globulin Albumin/Globulin Ratio Lipase TSH Urine Color Cancelled Urine Clarity Cancelled Urine pH Cancelled Ur Specific Proctor Cancelled U Specif Grav (Refrac) Cancelled Urine Protein Cancelled Urine Glucose (UA) Cancelled Urine Ketones Cancelled Urine Occult Blood Cancelled Urine Nitrite Cancelled Urine Bilirubin Cancelled Urine Urobilinogen Cancelled Ur Leukocyte Esterase Cancelled Urine RBC Cancelled Urine WBC Cancelled Ur Squamous Epith Cells Cancelled Ur Transition Epith Cell Cancelled Ur Renal Epithelial Cell Cancelled Calcium Oxalate Crystal Cancelled Uric Acid Crystals Cancelled Triple Phos Crystals Cancelled Other Crystals Cancelled Amorphous Sediment Cancelled Urine Bacteria Cancelled Hyaline Casts Cancelled Fine Granular Casts Cancelled Coarse Granular Casts Cancelled Waxy Casts Cancelled RBC Casts Cancelled WBC Casts Cancelled Urine Mucus Cancelled Urine Trichomonas Cancelled Urine Yeast Cancelled ABG Data ABG results: ABG 02/09/23 15:10 Specimen Type ART Sample Site L Brach pH 7.44 Bicarbonate Actual 42.5 H Total CO2 45 Base Excess 18 H O2 Saturation 100 H O2 % 100 ABG pCO2 63.2 H ABG pO2 199 H Respiration Rate 20 O2 Delivery Device Adult Vent Vent Mode PRVC/PS Tidal Volume 400 POC PEEP 5 Radiography Chest X-Ray - ED: Read by ED Physician Diagnostic Testing: Clinical Impression(s) from Imaging Studies Brain CT 02/09/23 14:41 IMPRESSION: There are no acute findings. Chronic involutional changes of the brain. Electronically Signed: Dane Owens MD at 17:10 EDT , Chest X-Ray 02/09/23 14:50 IMPRESSION: Pulmonary findings appear worse. Electronically Signed: Dane Owens MD at 15:14 EDT , Chest x-ray with severe whiteout of the right lower and middle lobes concerning for pleural effusion. Procedures Intubations Intubation Method: orotracheal Intubation Verification: Positive color change and Bilateral breath sounds confirmed Intubation Complications: no complications Critical Care Time Critical Care Time: Yes Critical care time (excluding procedures): 30-74 minutes, Discussing w/Consultants and Arranging Admission or Transfer Discharge Plan Triage Chief Complaint: Unresponsive ED Provider: Mukul Lorenzana Dx/Rx/DC Orders Clinical Impression: Acute alteration in mental status, Anemia, Hyperammonemia, Acute hypoxemic respiratory failure Primary Care Provider: Josiah Smith
--- NOTE | 2023-02-09 14:50 | RAD_ITS ---
STUDY: XR Chest 1 View 02/09/2023 2:50 PM REASON FOR EXAM: Female, 72 years old. CHEST PAIN Hypoxia COMPARISON: 02/04/2023 TECHNIQUE: XR Chest 1 View FINDINGS: Bilateral pleural effusions. Normal heart size. Normal mediastinum. Normal ivan. Prominent appearing increased interstitial lung markings. Normal visualized pulmonary arteries. There is atherosclerotic calcification of the aortic arch with tortuosity. There are diffuse degenerative changes of the visualized thoracic spine. There is degenerative osteoarthritis of the bilateral shoulders. ET tube and NG tube in place.There are multiple metallic clips in the right upper quadrant. This is consistent for a cholecystectomy. TIPS stent noted. RAD/Chest 1 View (Portable) IMPRESSION: Pulmonary findings appear worse. Electronically Signed: Dane Owens MD at 15:14 EDT ,
[2023-02-09] MEDS: fentaNYL 100 MCG/2 ML Ampul IV (15:09)
[2023-02-09] MEDS: Ipratropium/Albuterol Sulfate 3 ML AMPUL.NEB INHALATION ×5 (15:09→22:38)
[2023-02-09 15:16] LABS: Base Excess 18 mmol/L (-2 to +2); Bicarbonate 42.5 mmol/L (22-26); Blood Gas Specimen Type ART; FI02 100; Mode PRVC/PS; O2 Delivery Device Adult Vent; PEEP 5; PO2 199 mmHG (75-100); RR 20; SITE L Brach; SO2 100 % (95-99); Total Carbon Dioxide 45 mmol/L; Vt 400; pCO2 63.2 mmHg (35-45); pH 7.44 (7.35-7.45)
[2023-02-09] MEDS: Midazolam 5 MG/ML Syringe IV (15:32)
[2023-02-09 15:35] LABS: Absolute Lymphocyte Count 1.32 X10^3/uL (0.83-4.51); Absolute Neutrophil Count 3.2 X10^3/uL (2.0-7.7); Basophil# 0.05 X10^3/uL; Basophil% 0.9 % (0-1); Eosinophil# 0.27 X10^3/uL; Eosinophils% 4.8 % (0-5); Hematocrit 24.1 % (37-47); Hemoglobin 6.8 g/dL (12.0-15.0); Lymphocyte # 1.32 X10^3/ul (0.83-4.51); Lymphocyte % 23.4 % (19-41); Mean Corp Hgb Conc 28.2 g/dL (32-36); Mean Corpuscular Hgb 27.2 pg (27.0-32.0); Mean Corpuscular Volume 96.4 fL (81-99); Mean Platelet Vol. 10.4 fl (6.2-12.0); Monocyte# 0.77 X10^3/uL; Monocyte% 13.7 % (0-10); NRBC Flagged by Analyzer 0 % (0-5); Neutrophil # 3.17 X10^3/uL (2.7-7.7); Neutrophil % 56.1 % (47-70); Platelet Count 153 K/mm3 (150-450); RBC Distribution Width CV 16.3 % (11.6-14.6); RBC Distribution Width SD 58.2 fl (35.1-43.9); White Blood Count 5.6 K/mm3 (4.4-11.0)
[2023-02-09 15:49] LABS: Bacteria 0 SEEN /hpf (None Seen); Mucous, Urine 0 SEEN /hpf (<or=2+); White Blood Cells 0 SEEN /hpf (0-5)
[2023-02-09 15:51] LABS: Color, Urine Yellow (Yellow); Glucose, Dipstick Normal (Normal); Ketone-Dipstick Negative (Negative); Leukocyte Esterase-Dipstick Negative /ul (Negative); Nitrite-Dipstick Negative (Negative); Occult Blood-Urine 150 /ul (Negative); Protein-Dipstick 100 mg/dl (Negative); Specific Gravity, Urine 1.015 (1.002-1.030); Urine Bilirubin Dipstick Negative (Negative); Urine Clarity Sl. Cloudy (Clear); Urine Urobilinogen Normal (Normal)
[2023-02-09 16:03] LABS: ALB/GLOB Ratio 0.6 RATIO (0.9-2.4); AST(SGOT) 30 U/L (15-37); Alanine Aminotransfer ALT/SGPT 20 U/L (13-56); Albumin, Serum 1.8 g/dL (3.2-5.0); Alkaline Phosphatase 98 U/L (45-117); Anion Gap -1 (5-15); BUN 27 mg/dL (7-18); Calcium,Total 7.1 mg/dL (8.5-10.1); Chloride 109 mmol/L (98-107); Creatinine, Serum 1.35 mg/dL (0.55-1.02); EST Glomerular Filtration Rate 41 mL/min (>60); Est Glom Filt Rate - Afr Amer 49 mL/min (>60); Estimated Creatinine Clearance 27.59 ml/min; Glucose 84 mg/dL (74-106); Lipase 32 U/L (13-75); Potassium 4.2 mmol/L (3.5-5.1); Protein, Total 4.8 g/dL (6.4-8.2); Sodium Level 142 mmol/L (136-145); Thyroid Stim Hormone (TSH) 3.63 uIU/mL (0.358-3.74); Troponin-I HS 82 pg/mL (3.0-54.0)
[2023-02-09 16:04] LABS: Lactic Acid 2.8 mmol/L (0.4-1.9)
--- NOTE | 2023-02-09 16:05 | CT_ITS ---
STUDY: CT Chest W/O Contrast Injection 02/09/2023 5:35 PM REASON FOR EXAM: Female, 72 years old. pleural effusion Individualized dose optimization techniques were used for this CT. TECHNIQUE: Transaxial imaging was performed withoutIV contrast material. COMPARISON: 01.13.23. FINDINGS: There are degenerative changes of the shoulders. There is no pneumothorax. There are large bilateral pleural effusions. There is is a right pneumonia. There is an NGT and ET tube in place. There are calcifications of the coronary arteries. There is borderline cardiomegaly. Normal mediastinum. Normal hilar regions. Normal pulmonary arteries. There is atherosclerotic calcification of the aortic arch with tortuosity and elongation of the aortic arch and descending thoracic aorta. There are multi-level degenerative changes of the thoracic spine. TIPS stent in place. CT/Chest without Contrast IMPRESSION: There are large bilateral pleural effusions. There is is a right pneumonia. Electronically Signed: Dane Owens MD at 17:50 EDT ,
--- NOTE | 2023-02-09 16:31 | CHAPLAIN ---
Type of Pastoral Visit _x__ Initial Visit ___ Follow-up Visit ___ On-call Visit ___ General Patient Visit ___ Spiritual Assessment ___ Family Conference ___ Bereavement ___ Rapid Response ___ Code Blue ___ Other (describe below) Pastoral Care Referral From ___ Patient _x__ Family ___ Nurse ___ Physician ___ Mirror Maker ___ Audiovisual Production Specialist _x__ Other (describe below) Sacrament/Intervention _x__ Active listening ___ Anointing ___ Congregation ___ Bereavement ___ Communion ___ Deepa exploration ___ ___ Life review _x__ Prayer ___ Reconciliation ___ Sacrament of Sick _x__ Supportive presence ___ Wedding ___ Other (describe below) Pastoral Comments on rounds in ED notified by staff that this patient was in for serious condition and had been put on a vent; pt has been seen before by this machine feeder on numerous previous admissions; met with brother and sister in law who were waiting to see patient; became the advocate for family and assisted them into room when appropriately allowed by staff; gave prayer for patient; was present and available for support during time of waiting for further decisions on patient; hospice nurse came at this time to evaluate patient and talk with family; left the area at this time
[2023-02-09] MEDS: 0.9% Normal Saline 1,000 ML 200 ML IV (16:32)
--- NOTE | 2023-02-09 16:53 | PCM.HP.STD ---
HPI - General General Date of Admission: 02/09/23 Date of Service: 02/09/23 Chief Complaint: Shortness of breath, acute on chronic, altered mental status. Could not breathe. HPI Narrative MICHAEL HENLEY, is a 72 F with multiple comorbidities discharged about 2 days ago was brought to ED by EMS for acute on chronic shortness of breath, labored breathing, cyanosed instateand altered mental status. As per the EMS note, family stated patient is on hospice care but full code. I talked to the patient's 2 daughters near the bedside who assisted she was still short of breath when she was discharged but her shortness of breath got worse. Patient was unresponsive or minimally responsive as per EMS note. Has diminished radial pulse and lung sounds. EMS vitals BP 144/120, heart rate 73 GCS 11. When patient came to ED, her blood pressure was low 95/72 100% Ambu bag. She was minimally responsive therefore emergent rapid intubated and put on ventilator. Her blood pressure responded with IV fluid. Chest x-ray shows a right-sided whiteout and further CT chest without contrast individually reviewed shows a right lung complete whiteout with massive pleural effusion and left moderate pleural effusion. Twelve-lead EKG normal sinus rhythm at right bundle branch block at 66 bpm, QTc 452 ms. Patient is on IV midazolam and fentanyl drip. Patient started on meropenem and further admitted in ICU. [facility] Medical History Abdominal pain Anasarca Anemia Ascites Asthma Cirrhosis Cirrhosis CKD (chronic kidney disease), stage IV COPD (chronic obstructive pulmonary disease) Depressive disorder Diabetes mellitus Elevated brain natriuretic peptide (BNP) level Elevated troponin I level Fever GERD (gastroesophageal reflux disease) Hepatic encephalopathy Hernia history diagnostic hysteroscopy history thrombendarterectomy neck Hypertension Metabolic encephalopathy Osteoarthrosis Pleural effusion, left Pneumonia Portal vein thrombosis Rectus sheath hematoma Splenic vein thrombosis Thrombocytopenia Tinea pedis Home Medications atorvastatin 40 mg tablet (Lipitor) 40 mg PO QHS cholesterol 02/09/22 [History Last Taken 07/17/22] spironolactone 25 mg tablet 25 mg PO DAILY liver #30 tabs 10/19/22 [Rx Last Taken Unknown] albuterol sulfate 90 mcg/actuation aerosol inhaler 2 puff inhalation Q4H PRN SOB 11/20/22 [History Last Taken Unknown] latanoprost 0.005 % eye drops 1 drp LEFT EYE QPM eye health 12/31/22 [History Last Taken Unknown] rifaximin 550 mg tablet (Xifaxan) 550 mg PO BID bowels 12/31/22 [History Last Taken Unknown] labetalol 100 mg tablet 50 mg PO BID blood pressure 01/12/23 [History Last Taken Unknown] pantoprazole 40 mg tablet,delayed release 40 mg PO DAILY reflux 01/12/23 [History Last Taken Unknown] polysaccharide iron complex 150 mg iron capsule (iFerex 150) 150 mg PO DAILY supplement 01/12/23 [History Last Taken Unknown] simethicone 80 mg chewable tablet 80 mg PO QHS gas 01/12/23 [History Last Taken Unknown] glimepiride 2 mg tablet 2 mg PO DAILY #60 tabs 01/19/23 [Rx Last Taken Unknown] neomycin 500 mg tablet 500 mg PO BID 7 days #14 tabs 01/19/23 [Rx Last Taken Unknown] lactulose 20 gram/30 mL oral solution 20 g (30 mL) PO 4X/DAY #0 mL 01/28/23 [Rx Last Taken Unknown] nystatin 100,000 unit/mL oral suspension 500,000 unit (5 mL) PO 4X/DAY 10 days #200 mL 02/07/23 [Rx Last Taken Unknown] torsemide 20 mg tablet 20 mg PO TID WATER PILL #90 tabs 02/07/23 [Rx Last Taken Unknown] Allergy/AdvReac Type Severity Reaction Status Date / Time suture Allergy Mild rash/ Verified 02/09/23 15:47 wound dehisence amoxicillin Allergy Unknown Verified 02/09/23 15:47 azithromycin Allergy Shortness Verified 02/09/23 15:47 of breath celecoxib [From Celebrex] Allergy Other Verified 02/09/23 15:47 ciprofloxacin HCl Allergy Shortness Verified 02/09/23 15:47 [From Cipro] of breath cortisone Allergy Swelling Verified 02/09/23 15:47 doxycycline Allergy Shortness Verified 02/09/23 15:47 of breath erythromycin base Allergy Unknown Verified 02/09/23 15:47 fexofenadine [From Ashlee] Allergy Unknown Verified 02/09/23 15:47 ibuprofen Allergy Shortness Verified 02/09/23 15:47 of breath Iodinated Contrast Media Allergy Shortness Verified 02/09/23 15:47 [DYEE] of breath iodine Allergy Shortness Verified 02/09/23 15:47 of breath levofloxacin [From Levaquin] Allergy Shortness Verified 02/09/23 15:47 of breath lorazepam [From Ativan] Allergy Shortness Verified 02/09/23 15:47 of breath nitrofurantoin Allergy Shortness Verified 02/09/23 15:47 macrocrystalline of breath [From Macrobid] Penicillins Allergy Shortness Verified 02/09/23 15:47 of breath rofecoxib [From Vioxx] Allergy Unknown Verified 02/09/23 15:47 Sulfa (Sulfonamide Allergy Shortness Verified 02/09/23 15:47 Antibiotics) of breath sulfamethoxazole Allergy Shortness Verified 02/09/23 15:47 [From Bactrim] of breath trimethoprim [From Bactrim] Allergy Shortness Verified 02/09/23 15:47 of breath amlodipine [From Norvasc] AdvReac Upset Verified 02/09/23 15:47 Stomach MISC BP MED AdvReac Shortness Uncoded 02/09/23 15:47 of breath Family History Mother Heart disease Brother Heart disease Surgical History History of bilateral salpingo-oophorectomy History of endarterectomy History of laparoscopic cholecystectomy History of oral surgery S/P TIPS (transjugular intrahepatic portosystemic shunt) Social History household members: spouse housing: house Smoking Status: Former smoker alcohol intake: never substance use type: does not use ROS ROS Narrative 14 system ROS could not be obtained as patient is intubated on ventilator. On sedative. Patient came in very altered state of mind. Review of Systems ROS Unobtainable: due to encephalopathy and due to endotracheal tube Vital Signs Vital Signs Vital Signs: 02/09/23 14:33 02/09/23 14:39 02/09/23 14:45 Temperature 98 F Temperature Source Temporal Pulse Rate 70 Respiratory Rate Blood Pressure 95/72 Blood Pressure Mean 79 Pulse Ox 100 Oxygen Delivery Method Ambu-Bag Ambu-Bag 02/09/23 14:38 02/09/23 15:41 02/09/23 15:09 Temperature Temperature Source Pulse Rate 72 78 Respiratory Rate 20 H 18 20 H Blood Pressure 141/85 H Blood Pressure Mean 103 Pulse Ox 97 Oxygen Delivery Method Mechanical Ventilator 02/09/23 15:17 02/09/23 15:32 02/09/23 15:45 Temperature Temperature Source Pulse Rate 78 80 70 Respiratory Rate 20 H 20 H 17 Blood Pressure 142/63 H Blood Pressure Mean 82 Pulse Ox 97 Oxygen Delivery Method 02/09/23 16:00 Temperature Temperature Source Pulse Rate 70 Respiratory Rate 21 H Blood Pressure 117/84 H Blood Pressure Mean 94 Pulse Ox 95 Oxygen Delivery Method Weight Weight: 186 lb 15.232 oz Body Mass Index (BMI) 35.3 Physical Exam Narrative General: Intubated, sedated. Was brought in minimally responsive/altered mental status in ED HEENT: Atraumatic, PERRLA, EOMI, Normocephalic Oral: ET tube. Neck: Supple, No JVD, Negative Carotid Bruits Lungs: Air entry minimal on right upper chest. Intubated on ventilator. On deep tracheal suction, thick mucus was aspirated Cardiovascular: Regular rate, Regular Rhythm, Normal S1, Normal S2, No murmurs Abdomen: Bowel Sounds sluggish, Soft, Non Tender, Non-Distended. Mild ascites : No renal angle tenderness. No suprapubic tenderness. Extremities: Bilateral pitting 2+ below knee edema, Capillary Refill Less than 3 Seconds Skin: No rashes, No breakdown Musculoskeletal: No Tenderness to Palpation of Joints or Extremities. Bilateral degenerative chronic arthritis. Sedated. Neurological: Complete neuro exam unobtainable. Sedated. encephalopathic Psych/Mental Status: Sedated. Results Lab / Micro Data Result Diagrams: 02/09/23 15:20 02/09/23 15:20 Labs: Laboratory Results - last 24 hr 02/09/23 15:20: WBC 5.6, RBC 2.50 L, Hgb 6.8 L, Hct 24.1 L, MCV 96.4, MCH 27.2, MCHC 28.2 L, RDW Std Deviation 58.2 H, RDW Coeff of [place] 16.3 H, Plt Count 153, MPV 10.4, Immature Gran % (Auto) 1.100 H, Neut % (Auto) 56.1, Lymph % (Auto) 23.4, Chicot % (Auto) 13.7 H, Eos % (Auto) 4.8, Baso % (Auto) 0.9, Absolute Neuts (auto) 3.2, Absolute Lymphs (auto) 1.32, Nucleated RBC % 0 02/09/23 15:20: Sodium 142, Potassium 4.2, Chloride 109 H, Carbon Dioxide 34.0 H, Anion Gap -1 L, BUN 27 H, Creatinine 1.35 H, Estim Creat Clear Calc 27.59, Est GFR (MDRD) Af Amer 49 L, Est GFR (MDRD) Non-Af 41 L, BUN/Creatinine Ratio 20.0, Glucose 84, Calcium 7.1 L, Total Bilirubin 0.50, AST 30, ALT 20, Alkaline Phosphatase 98, Troponin I High Sens 82 H, Total Protein 4.8 L, Albumin 1.8 L, Globulin 3.0, Albumin/Globulin Ratio 0.6 L, Lipase 32, TSH 3.63 02/09/23 15:20: Lactic Acid 2.8 H* 02/09/23 15:20: Ammonia 51.0 H 02/09/23 15:39: Urine Color Yellow, Urine Clarity Sl. Cloudy, Urine pH 6.0, Ur Specific Vera 1.015, Urine Protein 100 H, Urine Glucose (UA) Normal, Urine Ketones Negative, Urine Occult Blood 150 H, Urine Nitrite Negative, Urine Bilirubin Negative, Urine Urobilinogen Normal, Ur Leukocyte Esterase Negative 02/09/23 16:00: Urine Color Cancelled, Urine Clarity Cancelled, Urine pH Cancelled, Ur Specific Vera Cancelled, U Specif Grav (Refrac) Cancelled, Urine Protein Cancelled, Urine Glucose (UA) Cancelled, Urine Ketones Cancelled, Urine Occult Blood Cancelled, Urine Nitrite Cancelled, Urine Bilirubin Cancelled, Urine Urobilinogen Cancelled, Ur Leukocyte Esterase Cancelled, Urine RBC Cancelled, Urine WBC Cancelled, Ur Squamous Epith Cells Cancelled, Ur Transition Epith Cell Cancelled, Ur Renal Epithelial Cell Cancelled, Calcium Oxalate Crystal Cancelled, Uric Acid Crystals Cancelled, Triple Phos Crystals Cancelled, Other Crystals Cancelled, Amorphous Sediment Cancelled, Urine Bacteria Cancelled, Hyaline Casts Cancelled, Fine Granular Casts Cancelled, Coarse Granular Casts Cancelled, Waxy Casts Cancelled, RBC Casts Cancelled, WBC Casts Cancelled, Urine Mucus Cancelled, Urine Trichomonas Cancelled, Urine Yeast Cancelled Micro: Microbiology 02/09/23 15:15 Nasal Secretion SARS-CoV-2 & FLU Antigen (Rapid) - Final ABG Data ABG results: ABG 02/09/23 15:10 Specimen Type ART Sample Site L Brach pH 7.44 Bicarbonate Actual 42.5 H Total CO2 45 Base Excess 18 H O2 Saturation 100 H O2 % 100 ABG pCO2 63.2 H ABG pO2 199 H Respiration Rate 20 O2 Delivery Device Adult Vent Vent Mode PRVC/PS Tidal Volume 400 POC PEEP 5 Radiology Impression Chest X-Ray 02/09/23 14:50 IMPRESSION: Pulmonary findings appear worse. Electronically Signed: Dane Owens MD at 15:14 EDT , Assessment & Plan Assessment/Plan (1) Acute on chronic respiratory failure with hypercapnia: (2) Encephalopathy: PLAN: Plan This 72-year-old female was brought to ED in minimally responsive state, labored breathing, acute on chronic combined respiratory failure. Patient was intubated on ventilator in ED. 1. Acute on chronic combined respiratory failure most likely due to massive right pleural effusion with possibility of underlying pneumonia: Patient is being admitted in ICU. Continue vent support. Repeat ABG after 1 hour. Personal Lines Account Executive consulted and discussed with him. Midazolam drip changed to propofol and continue IV fentanyl drip. Intake and output. Critical care management. Pneumonia work-up ordered. Patient is started empirically on IV ceftriaxone. Patient does not have signs or symptoms suggestive of acute obvious focus of infection therefore I do not think patient has sepsis. Patient has lactic acidosis which may be due to severe hypoxia and intravascular volume depletion 2. Acute on recurrent encephalopathy multifactorial metabolic encephalopathy from CO2 narcosis, hepatic encephalopathy: During previous admission patient was on BiPAP. Patient ammonia level is 51 but this is not diagnostic or suggestive of hepatic encephalopathy. Patient ammonia level can be normal but still can have hepatic encephalopathic and vice versa. Once OG tube was inserted, start lactulose and Xifaxan. 3. Decompensated MALDONADO cirrhosis,CPT Class C with history of ascites but lately hepatic hydrothorax, hepatic encephalopathy, thrombocytopenia and hypoalbuminemia: Patient had thoracocentesis on 01/26/2023. Fluid analysis as per light criteria was transudate. Fluid culture was negative. Fluid cytology negative for malignant cells. Ultrasound-guided thoracocentesis ordered for tomorrow AM. 4. Acute on chronic diastolic congestive heart failure: Patient has other reason for pleural effusion, heart failure. Last echo on December 1622 reported EF 70%. Patient on diuretic torsemide at home which was changed to 3 times daily during last discharge. Hold IV fluid. Lasix ordered. 5. Type 2 diabetes mellitus: Accu-Chek insulin is covered with Humalog sliding scale. 6. Acute debility due to degenerative arthritis multiple chronic conditions and morbid obesity: Patient BMI 35.3 kg/m?. Hotel Maid consult. PT and OT ordered. Patient had community-acquired pneumonia and Klebsiella acute cystitis during admission of 01/26/2023. Patient had recurrent admission this is third time in the month of November 2022. Living will/advanced directive/end of life care: Patient does have living will or advanced directive. I discussed the advance care planning with 2 daughters present in the ED. On previous H&P, it is also mentioned to maintain full code. Patient has been involved with hospice care with regards to palliation but is full code. It seems patient does not have power of real estate associate attorney for health. Previously it was her who has dementia. After discussion of benefits/risks procedures involved with full code, DNR CC arrest and DNR CC, the patient's daughter selected full code. She stated she wanted to have full resuscitation as per discussion of patient with them yesterday. Patient does want artificial life support including intubation, tube feed, ventilator and/chest compression, central venous catheter, vasopressor and DC shock if needed Total time spent in [id number] encounter in discussion of advanced directive 17 minutes. Microbiology Past 72 Hours 02/09/23 15:15 Nasal Secretion SARS-CoV-2 & FLU Antigen (Rapid) - Final Laboratory Results 02/09/23 15:10: Specimen Type ART, Sample Site L Brach, pH 7.44, Bicarbonate Actual 42.5 H, Total CO2 45, Base Excess 18 H, O2 Saturation 100 H, O2 % 100, ABG pCO2 63.2 H, ABG pO2 199 H, Respiration Rate 20, O2 Delivery Device Adult Vent, Vent Mode PRVC/PS, Tidal Volume 400, POC PEEP 5 02/09/23 15:20: WBC 5.6, RBC 2.50 L, Hgb 6.8 L, Hct 24.1 L, MCV 96.4, MCH 27.2, MCHC 28.2 L, RDW Std Deviation 58.2 H, RDW Coeff of Jordan 16.3 H, Plt Count 153, MPV 10.4, Immature Gran % (Auto) 1.100 H, Neut % (Auto) 56.1, Lymph % (Auto) 23.4, Ch[place]ot % (Auto) 13.7 H, Eos % (Auto) 4.8, Baso % (Auto) 0.9, Absolute Neuts (auto) 3.2, Absolute Lymphs (auto) 1.32, Nucleated RBC % 0 02/09/23 15:20: Sodium 142, Potassium 4.2, Chloride 109 H, Carbon Dioxide 34.0 H, Anion Gap -1 L, BUN 27 H, Creatinine 1.35 H, Estim Creat Clear Calc 27.59, Est GFR (MDRD) Af Amer 49 L, Est GFR (MDRD) Non-Af 41 L, BUN/Creatinine Ratio 20.0, Glucose 84, Calcium 7.1 L, Total Bilirubin 0.50, AST 30, ALT 20, Alkaline Phosphatase 98, Troponin I High Sens 82 H, Total Protein 4.8 L, Albumin 1.8 L, Globulin 3.0, Albumin/Globulin Ratio 0.6 L, Lipase 32, TSH 3.63 02/09/23 15:20: Lactic Acid 2.8 H* 02/09/23 15:20: Ammonia 51.0 H 02/09/23 15:20: Phosphorus 3.5, Magnesium 1.7 02/09/23 15:39: Urine Color Yellow, Urine Clarity Sl. Cloudy, Urine pH 6.0, Ur Specific Vera 1.015, Urine Protein 100 H, Urine Glucose (UA) Normal, Urine Ketones Negative, Urine Occult Blood 150 H, Urine Nitrite Negative, Urine Bilirubin Negative, Urine Urobilinogen Normal, Ur Leukocyte Esterase Negative, Urine RBC 10-25 SEEN, Urine WBC 0 SEEN, Ur Squamous Epith Cells 0-5 SEEN, Amorphous Sediment 1+ URATE, Urine Bacteria 0 SEEN, Urine Mucus 0 SEEN 02/09/23 17:20: Blood Type Pending, Antibody Screen Pending, Crossmatch See Detail Charges/Coding Visit Charges Inpatient E&M: 13138 Disch Hosp >30min Procedures Hospitalists Procedures: 00313 Advncd Care Plan 30 Min
[2023-02-09 17:19] LABS: Amorphous Sediment 1+ URATE; Red Blood Cells-Urine 10-25 SEEN /hpf (0-5); Squamous Epithelial Cells - UA 0-5 SEEN /hpf (5-10)
[2023-02-09 17:21] LABS: Magnesium 1.7 mg/dL (1.6-2.6); Phosphorus 3.5 mg/dL (2.5-4.9)
[2023-02-09] MEDS: Propofol 10MG/Ml 1,000 MG/100 ML Bottle 5.1 MG CONT INF (18:03)
[2023-02-09] MEDS: 0.9% Normal Saline 1,000 ML 100 ML IV (18:17)
[2023-02-09 18:53] LABS: CPK Total, Creatine Kinase 83 U/L (26-192); Triglycerides 134 mg/dL
[2023-02-09 19:26] LABS: Reflex Lactate? Y
[2023-02-09 19:46] LABS: Allen Test Positive; Base Excess 13 mmol/L (-2 to +2); Bicarbonate 36.9 mmol/L (22-26); Blood Gas Specimen Type ART; FI02 30; Mode AC; O2 Delivery Device ET Tube; PEEP 5; PO2 20 mmHG (75-100); RR 20; SITE L Radial; SO2 33 % (95-99); Total Carbon Dioxide 39 mmol/L; Vt 400; pCO2 53.7 mmHg (35-45); pH 7.45 (7.35-7.45)
[2023-02-09] MEDS: LORazepam 2 MG/ML Syringe IV (19:46)
[2023-02-09 21:14] LABS: Lactic Acid 1.6 mmol/L (0.4-1.9)
[2023-02-09] MEDS: Acetaminophen 650 MG/20 ML UDC NG (21:37)
[2023-02-09] MEDS: Atorvastatin Calcium 40 MG Tablet GT (21:38)
[2023-02-09] MEDS: NYSTATIN 500,000 UNIT/5 ML UDC 500000 UNIT PO (21:38)
[2023-02-09] MEDS: rifAXIMin 550 MG Tablet NG (21:39)
[2023-02-09] MEDS: Latanoprost 0.005% 1 Bottle 1 DRP LEFT EYE (21:39)
--- NOTE | 2023-02-09 22:00 | CPS ---
Critical ABG values, Dr. Brody barrow.
[2023-02-09] MEDS: Lactulose 20 GM/30 ML UDC PO (23:34)
[2023-02-09] MEDS: guaiFENesin 10 ML UDC (200MG/10ML) NG (23:34)
[2023-02-09 23:52] LABS: M R Staph aureus DNA By PCR Negative (Negative); Probe Check PASS; Specimen Processing Control PASS
[2023-02-10] VITALS (29 sets, daily range): BP systolic 52–155; BP diastolic 38–103; PULSE 85–111; RESP 16–26; TEMP 37.6–38.3; O2SAT 47–100; BMI 30.3
--- NOTE | 2023-02-10 01:09 | NURSING ---
Fentanyl gtt order noticed to be discontinued on the DEC. In the history of the order, it was canceled in the transfer orders from the ED to ICU although the admiting hospitalist had written for it to continue. Nightshift hospitalist contacted and new order placed.
[2023-02-10] MEDS: Dextrose 50%-Water 25 GM/50 ML DISP.SYRIN IV ×2 (01:29→05:12)
--- NOTE | 2023-02-10 01:31 | NURSING ---
[facility] called and said they are signing off on patient due to clinical status. However, they would like to be called if there is a time of cardiac .
[2023-02-10] MEDS: Sodium Chloride 19.25 MEQ in Dextrose 10%-Water 250 ML 40 MEQ IV ×3 (01:44→14:42)
[2023-02-10] MEDS: 0.9% Saline Lock 10 ML Syringe IV ×5 (01:45→20:26)
[2023-02-10 01:56] LABS: Bedside Glucose 29 mg/dL (74-106)
[2023-02-10 01:56] LABS: Bedside Glucose 134 mg/dL (74-106)
[2023-02-10] MEDS: Ipratropium/Albuterol Sulfate 3 ML AMPUL.NEB INHALATION ×4 (03:25→16:02)
[2023-02-10 03:46] LABS: Absolute Neutrophil Count 3.9 X10^3/uL (2.0-7.7); Basophil# 0.05 X10^3/uL; Basophil% 0.7 % (0-1); Differential Indicated SCAN CRITERIA MET; Eosinophil# 0.07 X10^3/uL; Hemoglobin 9.1 g/dL (12.0-15.0); Lymphocyte % 22.7 % (19-41); Mean Corp Hgb Conc 26.8 g/dL (32-36); Mean Corpuscular Hgb 26.7 pg (27.0-32.0); Mean Corpuscular Volume 99.7 fL (81-99); Mean Platelet Vol. 11.4 fl (6.2-12.0); Monocyte# 1.43 X10^3/uL; Monocyte% 20.3 % (0-10); NRBC Flagged by Analyzer 0.3 % (0-5); Neutrophil # 3.88 X10^3/uL (2.7-7.7); Neutrophil % 54.9 % (47-70); POSITIVE COUNT YES; Platelet Count 99 K/mm3 (150-450); RBC Distribution Width CV 16.9 % (11.6-14.6); RBC Distribution Width SD 60.8 fl (35.1-43.9); Red Blood Count 3.41 M/mm3 (4.2-5.4); White Blood Count 7.1 K/mm3 (4.4-11.0)
[2023-02-10 04:19] LABS: Platelet Estimate MOD DEC (ADEQ)
--- NOTE | 2023-02-10 04:21 | NURSING ---
Attempted to turn fentanyl down to 50 mcg and turn propofol off for SAT this morning. Pt became restless and was shaking. Sedation turned back up to previous rates.
[2023-02-10] MEDS: Acetaminophen 650 MG/20 ML UDC NG (04:33)
[2023-02-10] MEDS: Propofol 10MG/Ml 1,000 MG/100 ML Bottle 2.5 MG CONT INF (04:37)
[2023-02-10 04:46] LABS: ALB/GLOB Ratio 0.4 RATIO (0.9-2.4); AST(SGOT) 48 U/L (15-37); Alanine Aminotransfer ALT/SGPT 24 U/L (13-56); Albumin, Serum 1.6 g/dL (3.2-5.0); Alkaline Phosphatase 110 U/L (45-117); Anion Gap 5 (5-15); BUN 34 mg/dL (7-18); BUN/Creat Ratio 18.4 RATIO (10-20); Calcium,Total 9.2 mg/dL (8.5-10.1); Chloride 101 mmol/L (98-107); Creatinine, Serum 1.85 mg/dL (0.55-1.02); EST Glomerular Filtration Rate 28 mL/min (>60); Est Glom Filt Rate - Afr Amer 34 mL/min (>60); Estimated Creatinine Clearance 22.07 ml/min; Glucose 78 mg/dL (74-106); LDH 313 U/L (84-246); Potassium 4.3 mmol/L (3.5-5.1); Protein, Total 5.6 g/dL (6.4-8.2); Sodium Level 136 mmol/L (136-145)
[2023-02-10] MEDS: guaiFENesin 10 ML UDC (200MG/10ML) NG ×3 (04:59→17:23)
[2023-02-10] MEDS: Lactulose 20 GM/30 ML UDC PO ×3 (04:59→17:22)
[2023-02-10 05:21] LABS: Bedside Glucose 64 mg/dL (74-106)
[2023-02-10] MEDS: CHLORHEXIDINE GLUC 2% CLOTH 1 EACH TOWELETTE TOPICAL (05:42)
[2023-02-10] MEDS: Bumetanide 1 MG/4 ML Vial IV (06:29)
[2023-02-10 07:16] LABS: Bedside Glucose 99 mg/dL (74-106)
--- NOTE | 2023-02-10 07:30 | US_ITS ---
PROCEDURE: ULTRASOUND GUIDED THORACENTESIS. DATE: February 10, 2023. INDICATION: Female, 72 years old. Left pleural effusion PHYSICIAN: Roberto Amor M.D. PROCEDURE: The risks, benefits, and alternatives to the procedure were explained to the patient. The specific risks of bleeding, infection, and pneumothorax requiring chest tube insertion were discussed and accepted. Written informed consent was obtained. Ultrasonographic evaluation of the left lower pleural space was carried out. An adequate pocket was identified. The patient was placed in the sitting, upright position. The overlying skin was prepped and draped in sterile fashion. 1% lidocaine was administered subcutaneously for local anesthesia. Under ultrasound guidance, a 5 Kyrgyz thoracentesis needle/catheter system was advanced into the left posterior lower pleural fluid collection. Approximately 250 mL of blood-tinged fluid was drained. The catheter was removed, and a sterile dressing was applied. A specimen was collected and sent to the laboratory for analysis, as requested by the referring clinician. The patient tolerated the procedure well. A chest x-ray was ordered. US/Thoracentesis W US IMPRESSION: Ultrasound-guided left thoracentesis. Electronically Signed: Roberto Amor MD at 15:10 EDT ,
--- NOTE | 2023-02-10 07:38 | TELEMED_ITS ---
[facility] has confirmed receipt of a request for visit. This document confirms receipt of the order initiating the consult. To find the results of the consultation, please view the patient's reports for the scanned Telemed Consult.
--- NOTE | 2023-02-10 07:51 | EX.PCM.CONCC ---
Assessment & Plan Assessment/Plan (1) Acute hepatic encephalopathy: PLAN: Plan RECOMMENDATIONS: 1. Continue lactulose via NG tube. Start tube feeds per dietitian 2. Empiric antibiotics. Agree with relative volume restriction 3. Await results of thoracentesis 4. Wean oxygen as tolerated for saturations greater than 90%. 5. Discuss with family about goals of therapy IMPRESSIONS: 1. Acute on chronic combined respiratory failure secondary to hepatic encephalopathy/pleural effusions The patient presented to the hospital after being found unresponsive. CT of the head did not show any significant issues, but patient is showing signs of advanced liver disease with hyperammonemia. Patient has a history of a TIPS procedure and is having rapidly reaccumulating pleural effusions, likely secondary to ascites. Only minimal ascites noted on exam, so concern is for rapid translocation into the chest leading to decline. Patient has been resistant to BiPAP in the past. Patient did have a fever overnight, so cannot exclude an element of pneumonia. 2. 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 Patient has had a TIPS procedure in the past. Patient is likely not a transplant candidate, so there is significant concern on to what the endpoint is. Patient has findings of decompensation including hypoalbuminemia and thrombocytopenia. Will attempt mild diuresis with Bumex. 3. Acute on chronic diastolic congestive heart failure Patient with diastolic dysfunction on previous echocardiogram. Agree with holding aggressive fluid resuscitation despite increased lactate. Increased lactate likely secondary to hypoxia. We will continue with aggressive diuresis, but patient will ultimately require a thoracentesis. Heart rate is relatively controlled at this time. 4. Anemia/thrombocytopenia/hypertension/diabetes mellitus/advanced age/obesity/multiple allergies Complicates care, management, recovery and prognosis. Diabetic medications have been held and lieu of sliding scale insulin. Will place patient on tube feeds to help with hypoglycemia and then attempt to discontinue D10 drip. TIME: 37 minutes critical care time spent addressing patient's respiratory failure, cirrhosis, congestive heart failure, review of all data and collaboration with care team HPI Consult Data Date of Consult: 02/10/23 HPI Narrative Reason for Consultation: Respiratory failure HPI Narrative: MICHAEL HENLEY is a 72 F, with past medical history listed below, who presents to [facility] on 02/09/2023 secondary to altered mental status and hypoxia. Patient reportedly had been complaining of shortness of breath was noted to be hypoxic into the 80s. Patient has also had intermittent episodes of syncope with notes of nonsustained V. tach. Patient reportedly always had a pulse and glucose was 129. Patient was saturating well on a nonrebreather with relatively soft blood pressures. In the ER, patient was afebrile with a blood pressure of 95/72 and saturating 100% on Ambu bag. Patient was tachypneic, but was intubated secondary to mental status. Laboratory data showed a white blood cell count of 5.6, hemoglobin of 6.8 and platelets of 153. Chemistry showed an elevated bicarbonate of 34 with a creatinine of 1.35 and a lactate of 2.8. Liver function studies were relatively unremarkable except for an albumin of 1.8 and an ammonia of 51. Urinalysis was relatively unremarkable, but did show some urate crystals. An ABG on the ventilator showed fully compensated respiratory acidosis with increased AA gradient. CT of the head showed no acute findings and chest x-ray showed progressive bilateral pleural effusions. Patient was not given 30 cc/kg fluid bolus secondary to concerns for heart failure and a history of transudate pleural effusions with respiratory failure and hypoxia. Additional information is not available at this time. Patient has had multiple admissions in the last 3 months, typically related around fluid overload and pleural effusions. Patient has had a previous thoracentesis showing a transudate pattern. Patient does have extensive liver disease status post TIPS procedure. Patient reportedly was enrolled in hospice prior to presentation to the ER. This was reportedly revoked by her children. Hospice was reportedly in the ER to discuss with the patient and their family about goals of therapy. [facility] Medical History Abdominal pain Anasarca Anemia Ascites Asthma Cirrhosis Cirrhosis CKD (chronic kidney disease), stage IV COPD (chronic obstructive pulmonary disease) Depressive disorder Diabetes mellitus Elevated brain natriuretic peptide (BNP) level Elevated troponin I level Fever GERD (gastroesophageal reflux disease) Hepatic encephalopathy Hernia history diagnostic hysteroscopy history thrombendarterectomy neck Hypertension Metabolic encephalopathy Osteoarthrosis Pleural effusion, left Pneumonia Portal vein thrombosis Rectus sheath hematoma Splenic vein thrombosis Thrombocytopenia Tinea pedis Home Medications atorvastatin 40 mg tablet (Lipitor) 40 mg PO QHS cholesterol 02/09/22 [History Last Taken 07/17/22] spironolactone 25 mg tablet 25 mg PO DAILY liver #30 tabs 10/19/22 [Rx Last Taken Unknown] albuterol sulfate 90 mcg/actuation aerosol inhaler 2 puff inhalation Q4H PRN SOB 11/20/22 [History Last Taken Unknown] latanoprost 0.005 % eye drops 1 drp LEFT EYE QPM eye health 12/31/22 [History Last Taken Unknown] rifaximin 550 mg tablet (Xifaxan) 550 mg PO BID bowels 12/31/22 [History Last Taken Unknown] labetalol 100 mg tablet 50 mg PO BID blood pressure 01/12/23 [History Last Taken Unknown] pantoprazole 40 mg tablet,delayed release 40 mg PO DAILY reflux 01/12/23 [History Last Taken Unknown] polysaccharide iron complex 150 mg iron capsule (iFerex 150) 150 mg PO DAILY supplement 01/12/23 [History Last Taken Unknown] simethicone 80 mg chewable tablet 80 mg PO QHS gas 01/12/23 [History Last Taken Unknown] glimepiride 2 mg tablet 2 mg PO DAILY #60 tabs 01/19/23 [Rx Last Taken Unknown] neomycin 500 mg tablet 500 mg PO BID 7 days #14 tabs 01/19/23 [Rx Last Taken Unknown] lactulose 20 gram/30 mL oral solution 20 g (30 mL) PO 4X/DAY #0 mL 01/28/23 [Rx Last Taken Unknown] nystatin 100,000 unit/mL oral suspension 500,000 unit (5 mL) PO 4X/DAY 10 days #200 mL 02/07/23 [Rx Last Taken Unknown] torsemide 20 mg tablet 20 mg PO TID WATER PILL #90 tabs 02/07/23 [Rx Last Taken Unknown] Allergy/AdvReac Type Severity Reaction Status Date / Time suture Allergy Mild rash/ Verified 02/09/23 15:47 wound dehisence amoxicillin Allergy Unknown Verified 02/09/23 15:47 azithromycin Allergy Shortness Verified 02/09/23 15:47 of breath celecoxib [From Celebrex] Allergy Other Verified 02/09/23 15:47 ciprofloxacin HCl Allergy Shortness Verified 02/09/23 15:47 [From Cipro] of breath cortisone Allergy Swelling Verified 02/09/23 15:47 doxycycline Allergy Shortness Verified 02/09/23 15:47 of breath erythromycin base Allergy Unknown Verified 02/09/23 15:47 fexofenadine [From Ashlee] Allergy Unknown Verified 02/09/23 15:47 ibuprofen Allergy Shortness Verified 02/09/23 15:47 of breath Iodinated Contrast Media Allergy Shortness Verified 02/09/23 15:47 [DYEE] of breath iodine Allergy Shortness Verified 02/09/23 15:47 of breath levofloxacin [From Levaquin] Allergy Shortness Verified 02/09/23 15:47 of breath lorazepam [From Ativan] Allergy Shortness Verified 02/09/23 15:47 of breath nitrofurantoin Allergy Shortness Verified 02/09/23 15:47 macrocrystalline of breath [From Macrobid] Penicillins Allergy Shortness Verified 02/09/23 15:47 of breath rofecoxib [From Vioxx] Allergy Unknown Verified 02/09/23 15:47 Sulfa (Sulfonamide Allergy Shortness Verified 02/09/23 15:47 Antibiotics) of breath sulfamethoxazole Allergy Shortness Verified 02/09/23 15:47 [From Bactrim] of breath trimethoprim [From Bactrim] Allergy Shortness Verified 02/09/23 15:47 of breath amlodipine [From Norvasc] AdvReac Upset Verified 02/09/23 15:47 Stomach MISC BP MED AdvReac Shortness Uncoded 02/09/23 15:47 of breath Family History Mother Heart disease Brother Heart disease Surgical History History of bilateral salpingo-oophorectomy History of endarterectomy History of laparoscopic cholecystectomy History of oral surgery S/P TIPS (transjugular intrahepatic portosystemic shunt) Social History household members: spouse housing: house Smoking Status: Former smoker alcohol intake: never substance use type: does not use ROS ROS Narrative See HPI Physical Exam Const no apparent distress Constitutional Narrative: Good vent synchrony. RASS -3. General Appearance: patient mechanically ventilated HEENT normocephalic and head/scalp atraumatic HEENT Narrative: Some swelling of the tongue noted Mouth: endotracheal tube in place and OG tube in place Eyes conjunctivae normal Eyes Narrative: Sluggish left pupil. Neck full ROM Chest inspection of chest normal Resp Auscultation: diminished lung sounds; Negative for rales, rhonchi or wheezes Percussion: dullness Lower: bilateral Cardio regular rate, regular rhythm, S1 normal heart sound, S2 normal heart sound, no murmurs, no rub and no gallops GI normal to inspection, nondistended, normoactive bowel sounds GI Narrative: Possible fluid wave Inspection: abdominal distention no CVA tenderness Extremity General Extremity: edema bilateral (2+ bilateral) lower extremity Skin no rashes or lesions noted Neuro Neuro Narrative: Asterixis and clonus noted Sensorium / Orientation: sedated on vent Psych Mood & Affect: flat affect Medical Records Data Attestation: I reviewed the patient's medical records (See HPI) Lab / Micro Data Attestation: I reviewed the patient's lab results. Result Diagrams: 02/10/23 03:14 02/10/23 03:14 Labs: Laboratory Results - last 24 hr 02/09/23 15:20: WBC 5.6, RBC 2.50 L, Hgb 6.8 L, Hct 24.1 L, MCV 96.4, MCH 27.2, MCHC 28.2 L, RDW Std Deviation 58.2 H, RDW Coeff of [place] 16.3 H, Plt Count 153, MPV 10.4, Immature Gran % (Auto) 1.100 H, Neut % (Auto) 56.1, Lymph % (Auto) 23.4, [place] % (Auto) 13.7 H, Eos % (Auto) 4.8, Baso % (Auto) 0.9, Absolute Neuts (auto) 3.2, Absolute Lymphs (auto) 1.32, Nucleated RBC % 0 02/09/23 15:20: Sodium 142, Potassium 4.2, Chloride 109 H, Carbon Dioxide 34.0 H, Anion Gap -1 L, BUN 27 H, Creatinine 1.35 H, Estim Creat Clear Calc 27.59, Est GFR (MDRD) Af Amer 49 L, Est GFR (MDRD) Non-Af 41 L, BUN/Creatinine Ratio 20.0, Glucose 84, Calcium 7.1 L, Total Bilirubin 0.50, AST 30, ALT 20, Alkaline Phosphatase 98, Troponin I High Sens 82 H, Total Protein 4.8 L, Albumin 1.8 L, Globulin 3.0, Albumin/Globulin Ratio 0.6 L, Lipase 32, TSH 3.63 02/09/23 15:20: Lactic Acid 2.8 H* 02/09/23 15:20: Ammonia 51.0 H 02/09/23 15:20: Phosphorus 3.5, Magnesium 1.7 02/09/23 15:20: Total Creatine Kinase 83, Triglycerides 134 02/09/23 15:39: Urine Color Yellow, Urine Clarity Sl. Cloudy, Urine pH 6.0, Ur Specific [place] 1.015, Urine Protein 100 H, Urine Glucose (UA) Normal, Urine Ketones Negative, Urine Occult Blood 150 H, Urine Nitrite Negative, Urine Bilirubin Negative, Urine Urobilinogen Normal, Ur Leukocyte Esterase Negative, Urine RBC 10-25 SEEN, Urine WBC 0 SEEN, Ur Squamous Epith Cells 0-5 SEEN, Amorphous Sediment 1+ URATE, Urine Bacteria 0 SEEN, Urine Mucus 0 SEEN 02/09/23 16:00: Urine Color Cancelled, Urine Clarity Cancelled, Urine pH Cancelled, Ur Specific [place] Cancelled, U Specif Grav (Refrac) Cancelled, Urine Protein Cancelled, Urine Glucose (UA) Cancelled, Urine Ketones Cancelled, Urine Occult Blood Cancelled, Urine Nitrite Cancelled, Urine Bilirubin Cancelled, Urine Urobilinogen Cancelled, Ur Leukocyte Esterase Cancelled, Urine RBC Cancelled, Urine WBC Cancelled, Ur Squamous Epith Cells Cancelled, Ur Transition Epith Cell Cancelled, Ur Renal Epithelial Cell Cancelled, Calcium Oxalate Crystal Cancelled, Uric Acid Crystals Cancelled, Triple Phos Crystals Cancelled, Other Crystals Cancelled, Amorphous Sediment Cancelled, Urine Bacteria Cancelled, Hyaline Casts Cancelled, Fine Granular Casts Cancelled, Coarse Granular Casts Cancelled, Waxy Casts Cancelled, RBC Casts Cancelled, WBC Casts Cancelled, Urine Mucus Cancelled, Urine Trichomonas Cancelled, Urine Yeast Cancelled 02/09/23 17:20: Blood Type A POSITIVE, Antibody Screen NEGATIVE, Crossmatch See Detail 02/09/23 20:30: Lactic Acid 1.6 02/09/23 21:50: MRSA (PCR) Negative 02/10/23 01:18: POC Glucose 29 L* 02/10/23 01:35: POC Glucose 134 H 02/10/23 03:14: WBC 7.1, RBC 3.41 L, Hgb 9.1 L, Hct 34.0 L, MCV 99.7 H, MCH 26.7 L, MCHC 26.8 L, RDW Std Deviation 60.8 H, RDW Coeff of [place] 16.9 H, Plt Count 99 L, MPV 11.4, Immature Gran % (Auto) 0.400, Neut % (Auto) 54.9, Lymph % (Auto) 22.7, [place] % (Auto) 20.3 H, Eos % (Auto) 1.0, Baso % (Auto) 0.7, Absolute Neuts (auto) 3.9, Absolute Lymphs (auto) 1.60, Nucleated RBC % 0.3, Platelet Estimate MOD 02/10/23 03:14: Sodium 136, Potassium 4.3, Chloride 101, Carbon Dioxide 30.0, Anion Gap 5, BUN 34 H, Creatinine 1.85 H, Estim Creat Clear Calc 22.07, Est GFR (MDRD) Af Amer 34 L, Est GFR (MDRD) Non-Af 28 L, BUN/Creatinine Ratio 18.4, Glucose 78, Calcium 9.2, Total Bilirubin 1.70 H, AST 48 H, ALT 24, Alkaline Phosphatase 110, Lactate Dehydrogenase 313 H, Total Protein 5.6 L, Albumin 1.6 L, Globulin 4.0, Albumin/Globulin Ratio 0.4 L 02/10/23 04:58: POC Glucose 64 L 02/10/23 06:56: POC Glucose 99 Micro: Microbiology 02/09/23 19:20 Mucosa - Nose Respiratory Panel (PCR) - Final 02/09/23 19:30 Urine Catheter - Edwards Legionella Antigen - Final 02/09/23 19:30 Urine Catheter - Edwards Streptococcus pneumoniae Antigen (M - Final 02/09/23 15:15 Nasal Secretion SARS-CoV-2 & FLU Antigen (Rapid) - Final ABG Data ABG results: ABG 02/09/23 02/09/23 15:10 19:39 Specimen Type ART ART Sample Site L Brach L Radial pH 7.44 7.45 Bicarbonate Actual 42.5 H 36.9 H Total CO2 45 39 Base Excess 18 H 13 H O2 Saturation 100 H 33 L O2 % 100 30 ABG pCO2 63.2 H 53.7 H ABG pO2 199 H 20 L* Eliecer Test Positive Respiration Rate 20 20 O2 Delivery Device Adult Vent ET Tube Vent Mode PRVC/PS AC Tidal Volume 400 400 POC PEEP 5 5 Crit Call To/Read Back Yes Attestation: I personally reviewed and interpreted this ABG as follows: (See HPI. Second gas appears venous) Radiology Impression Brain CT 02/09/23 14:41 IMPRESSION: There are no acute findings. Chronic involutional changes of the brain. Electronically Signed: Dane Owens MD at 17:10 EDT , Chest X-Ray 02/09/23 14:50 IMPRESSION: Pulmonary findings appear worse. Electronically Signed: Dane Owens MD at 15:14 EDT , Chest CT 02/09/23 16:05 IMPRESSION: There are large bilateral pleural effusions. There is is a right pneumonia. Electronically Signed: Dane Owens MD at 17:50 EDT , Charges/Coding Procedures Hospitalists Procedures: 68345 Critial Care 1st Hr
[2023-02-10] MEDS: Chlorhexidine 15 ML PO (08:02)
[2023-02-10] MEDS: Labetalol 100 MG Tablet 50 MG GT (08:03)
[2023-02-10] MEDS: rifAXIMin 550 MG Tablet NG (08:03)
[2023-02-10] MEDS: NYSTATIN 500,000 UNIT/5 ML UDC 500000 UNIT PO ×3 (08:05→17:22)
--- NOTE | 2023-02-10 09:44 | CASEMGMT ---
Social Work SW noted pt has [facility], Skye [place]. SW called and left message notifying of pt admission and requesting call to confirm pt services. Most recent notes from pt's previous admissions stated pt has emergency response services from . [place]
--- NOTE | 2023-02-10 09:48 | CASEMGMT ---
Social Work SW called Hospice as directed by MD Skinner, to confirm pt Hospice services have been revoked. MD Guidry put Hospice consult in for pt during admission so MD Skinner wanting this to be followed up on. ARCENIO left message for [place] at [facility] hospice with contact information. Will await a return pc. S[place]NA [place]
--- NOTE | 2023-02-10 10:01 | CASEMGMT ---
Addendum entered by Clari Ball 02/10/23 12:59: ARCENIO contacted Marlin Sullivan at [facility] via email to inquire about if HCPOA documents for pt may be in pt file with [facility]. ARCENIO also spoke with pt nurse, Luly, and was informed pt children have not yet been to [facility]. ARCENIO will continue to follow for pt's children arrival at [facility] to begin planning of family meeting. Original Note: Social Work ARCENIO called daughter Mile to discuss question of who the legal decision maker would be for pt. ARCENIO explained that through reading previous admission assessments that pt other daughter, Belem, is mentioned at [facility] several times. Mile confirmed Belem is the HCPOA and ARCENIO could hear Candor in background of phone call confirming this. Mile stated family does not have paperwork stating this as it was sent to [facility] for some reason but that family would attempt to reach out to [facility] and get this document to provide to [facility]. ARCENIO also asked if Mile could provide Belem's phone number as it is not listed in [facility] system. Mile shared this phone number as [phone]. ARCENIO will add this to pt demographics. Mile confirmed that family will be in to [facility] today to visit patient. ARCENIO explained that MD Skinner would like to set a family meeting for tomorrow to discuss pt plan of care and ongoing treatment options. Mile stated family will be happy to discuss a time for family meeting once they arrive at [facility] this day. S[place]NA [place]
[2023-02-10 10:41] LABS: Bedside Glucose 118 mg/dL (74-106)
--- NOTE | 2023-02-10 11:27 | PN.HOSP_ITS ---
Reason for Visit Reason for Visit: Diagnoses Encephalopathy, unspecified (02/09/23) Acute respiratory failure, unspecified whether with hypoxia or hypercapnia (02/09/23) Acute and chronic respiratory failure with hypercapnia (02/09/23) Subjective Subjective Patient was seen and examined today, I discussed her care with critical care today, she is sedated and on a ventilator at the time of my examination. Objective Data Objective Data Vital Signs: Vital Signs Temp Pulse Resp BP Pulse Ox O2 Del Method FiO2 100.7 F H 95 20 H 137/48 H 97 Mechanical Ventilator 30 02/10/23 10:00 02/10/23 10:00 02/10/23 10:00 02/10/23 10:00 02/10/23 10:00 02/10/23 10:00 02/10/23 10:00 Oxygen Delivery Method Mechanical Ventilator Weight: 77.7 kg Body Mass Index (BMI) 30.3 Intake & Output: Intake and Output for Last 24 Hours 02/08/23 02/09/23 02/10/23 23:59 23:59 23:59 Intake Total 2804.91 / 2804.91 845.64 / 845.64 Output Total 325 / 375 600 / 600 Balance 2479.91 / 2429.91 245.64 / 245.64 Lab / Micro Data Result Diagrams: 02/10/23 03:14 02/10/23 03:14 Labs: Laboratory Results - last 24 hr 02/09/23 15:20: WBC 5.6, RBC 2.50 L, Hgb 6.8 L, Hct 24.1 L, MCV 96.4, MCH 27.2, MCHC 28.2 L, RDW Std Deviation 58.2 H, RDW Coeff of [place] 16.3 H, Plt Count 153, MPV 10.4, Immature Gran % (Auto) 1.100 H, Neut % (Auto) 56.1, Lymph % (Auto) 23.4, Braxton % (Auto) 13.7 H, Eos % (Auto) 4.8, Baso % (Auto) 0.9, Absolute Neuts (auto) 3.2, Absolute Lymphs (auto) 1.32, Nucleated RBC % 0 02/09/23 15:20: Sodium 142, Potassium 4.2, Chloride 109 H, Carbon Dioxide 34.0 H , Anion Gap -1 L, BUN 27 H, Creatinine 1.35 H, Estim Creat Clear Calc 27.59, Est GFR (MDRD) Af Amer 49 L, Est GFR (MDRD) Non-Af 41 L, BUN/Creatinine Ratio 20.0, Glucose 84, Calcium 7.1 L, Total Bilirubin 0.50, AST 30, ALT 20, Alkaline Phosphatase 98, Troponin I High Sens 82 H, Total Protein 4.8 L, Albumin 1.8 L, Globulin 3.0, Albumin/Globulin Ratio 0.6 L, Lipase 32, TSH 3.63 02/09/23 15:20: Lactic Acid 2.8 H* 02/09/23 15:20: Ammonia 51.0 H 02/09/23 15:20: Phosphorus 3.5, Magnesium 1.7 02/09/23 15:20: Total Creatine Kinase 83, Triglycerides 134 02/09/23 15:39: Urine Color Yellow, Urine Clarity Sl. Cloudy, Urine pH 6.0, Ur Specific [place] 1.015, Urine Protein 100 H, Urine Glucose (UA) Normal, Urine Ketones Negative, Urine Occult Blood 150 H, Urine Nitrite Negative, Urine Bilirubin Negative, Urine Urobilinogen Normal, Ur Leukocyte Esterase Negative, Urine RBC 10-25 SEEN, Urine WBC 0 SEEN, Ur Squamous Epith Cells 0-5 SEEN, Amorphous Sediment 1+ URATE, Urine Bacteria 0 SEEN, Urine Mucus 0 SEEN 02/09/23 16:00: Urine Color Cancelled, Urine Clarity Cancelled, Urine pH Cancelled, Ur Specific [place] Cancelled, U Specif Grav (Refrac) Cancelled, Urine Protein Cancelled, Urine Glucose (UA) Cancelled, Urine Ketones Cancelled, Urine Occult Blood Cancelled, Urine Nitrite Cancelled, Urine Bilirubin Cancelled, Urine Urobilinogen Cancelled, Ur Leukocyte Esterase Cancelled, Urine RBC Cancelled, Urine WBC Cancelled, Ur Squamous Epith Cells Cancelled, Ur Transition Epith Cell Cancelled, Ur Renal Epithelial Cell Cancelled, Calcium Oxalate Crystal Cancelled, Uric Acid Crystals Cancelled, Triple Phos Crystals Cancelled, Other Crystals Cancelled, Amorphous Sediment Cancelled, Urine Bacteria Cancelled, Hyaline Casts Cancelled, Fine Granular Casts Cancelled, Coarse Granular Casts Cancelled, Waxy Casts Cancelled, RBC Casts Cancelled, WBC Casts Cancelled, Urine Mucus Cancelled, Urine Trichomonas Cancelled, Urine Yeast Cancelled 02/09/23 17:20: Blood Type A POSITIVE, Antibody Screen NEGATIVE, Crossmatch See Detail 02/09/23 20:30: Lactic Acid 1.6 02/09/23 21:50: MRSA (PCR) Negative 02/10/23 01:18: POC Glucose 29 L* 02/10/23 01:35: POC Glucose 134 H 02/10/23 03:14: WBC 7.1, RBC 3.41 L, Hgb 9.1 L, Hct 34.0 L, MCV 99.7 H, MCH 26.7 L, MCHC 26.8 L, RDW Std Deviation 60.8 H, RDW Coeff of [place] 16.9 H, Plt Count 99 L, MPV 11.4, Immature Gran % (Auto) 0.400, Neut % (Auto) 54.9, Lymph % (Auto) 22.7, Braxton % (Auto) 20.3 H, Eos % (Auto) 1.0, Baso % (Auto) 0.7, Absolute Neuts (auto) 3.9, Absolute Lymphs (auto) 1.60, Nucleated RBC % 0.3, Platelet Estimate MOD 02/10/23 03:14: Sodium 136, Potassium 4.3, Chloride 101, Carbon Dioxide 30.0, Anion Gap 5, BUN 34 H, Creatinine 1.85 H, Estim Creat Clear Calc 22.07, Est GFR (MDRD) Af Amer 34 L, Est GFR (MDRD) Non-Af 28 L, BUN/Creatinine Ratio 18.4, Glucose 78, Calcium 9.2, Total Bilirubin 1.70 H, AST 48 H, ALT 24, Alkaline Phosphatase 110, Lactate Dehydrogenase 313 H, Total Protein 5.6 L, Albumin 1.6 L , Globulin 4.0, Albumin/Globulin Ratio 0.4 L 02/10/23 04:58: POC Glucose 64 L 02/10/23 06:56: POC Glucose 99 02/10/23 10:20: POC Glucose 118 H Micro: Microbiology 02/09/23 17:00 Sputum, Induced/Lukens Gram Stain - Final 02/09/23 19:20 Mucosa - Nose Respiratory Panel (PCR) - Final 02/09/23 19:30 Urine Catheter - Edwards Legionella Antigen - Final 02/09/23 19:30 Urine Catheter - Edwards Streptococcus pneumoniae Antigen (M - Final 02/09/23 15:15 Nasal Secretion SARS-CoV-2 & FLU Antigen (Rapid) - Final ABG Data ABG results: ABG 02/09/23 02/09/23 15:10 19:39 Specimen Type ART ART Sample Site L Brach L Radial pH 7.44 7.45 Bicarbonate Actual 42.5 H 36.9 H Total CO2 45 39 Base Excess 18 H 13 H O2 Saturation 100 H 33 L O2 % 100 30 ABG pCO2 63.2 H 53.7 H ABG pO2 199 H 20 L* Eliecer Test Positive Respiration Rate 20 20 O2 Delivery Device Adult Vent ET Tube Vent Mode PRVC/PS AC Tidal Volume 400 400 POC PEEP 5 5 Crit Call To/Read Back Yes Radiography Diagnostic Testing: Radiology Impression Brain CT 02/09/23 14:41 IMPRESSION: There are no acute findings. Chronic involutional changes of the brain. Electronically Signed: Dane Owens MD at 17:10 EDT , Chest X-Ray 02/09/23 14:50 IMPRESSION: Pulmonary findings appear worse. Electronically Signed: Dane Owens MD at 15:14 EDT , Chest CT 02/09/23 16:05 IMPRESSION: There are large bilateral pleural effusions. There is is a right pneumonia. Electronically Signed: Dane Owens MD at 17:50 EDT , Physical Exam Const Constitutional Narrative: Patient is sedated on the ventilator HEENT normocephalic, head/scalp atraumatic and moist oral mucous membranes Eyes conjunctivae normal Neck no JVD and thyroid normal General: trachea midline Resp no retractions, no use of accessory muscles and clear to auscultation bilaterally Resp Narrative: Patient currently on the ventilator Auscultation: Negative for rales, rhonchi or wheezes Cardio regular rate, regular rhythm, S1 normal heart sound, S2 normal heart sound, no murmurs, no rub and no gallops GI normal to inspection, nondistended, normoactive bowel sounds and non-distended Extremity no clubbing, cyanosis or edema Skin no rashes or lesions noted General Skin Exam: no breakdown Neuro Neuro Narrative: Patient sedated and on the ventilator Psych Psych Narrative: Patient sedated and on the ventilator Assessment & Plan Assessment/Plan (1) Acute alteration in mental status: PLAN: Plan 1. 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
--- NOTE | 2023-02-10 11:50 | FLU_PTH ---
PATIENT: MICHAEL HENLEY LOC: ICU U#:[id number] AGE/SX: 72/F ROOM: [place] [address] RE02/09/[address]: Dr. Josiah Merchant DO : 1950 BED: 1 DIS: 02/10/2023 SPEC #: [id number] RECD: 02/10/23 15:00 STATUS: RICK RERenetta #: [id number] HORACIO: 02/10/23 11:[address]: Josiah Merchant DEPT: CYTOLOGY RECD BY: Coel Holbrook ENTERED: 02/11/23 07:53 SP TYPE: Fluid OTHR DR: MD Dr. Rojas Petit DO Dr. Lee Ann Baggott, MD Dr. Mark Elderbrock, MD Dr. Prakash Chand, MD Dr. Tanmay Panchabhai, MD Christina Muller, CLINIC ASSISTANT-C Tissues: THORACIC FLUID Procedures: Special Stain Group II Surgery Specimen Level IV Cytospin Fluid HEADER OPERATION: Thoracentesis right PRE-OP DIAGNOSIS: Right pleural effusion TISSUE SUBMITTED: Thoracentesis fluid for cytology DIAGNOSIS CYTOLOGY Thoracentesis fluid for cytology (cytospin and cell block): Negative for malignant cells. Bloody specimen. See comment. RDE:cori 02/12/2023 COMMENT Clinical correlation and appropriate follow up are necessary. CYTOLOGY STUDY Slides are reviewed. CYTOLOGY GROSS Received is 80 ml of cloudy red fluid labeled with the patient's name and and designated per the requisition as thoracentesis. Submitted for cytology preparation including cell block. / cori 02/11/2023 TC:5 CPT: 86751, 08822
--- NOTE | 2023-02-10 12:00 | NURSING ---
Patient RASS score was a -3, Propofol running at low dose 5mcg/kg/min Ok with Dr. Skinner to just shut off propofol at this time.
--- NOTE | 2023-02-10 13:45 | RAD_ITS ---
STUDY: X-RAY CHEST REASON FOR EXAM: Female, 72 years old. POST THORA -- THORA IN ICU @ 1330 TECHNIQUE: AP inspiration and expiration views. COMPARISON: Comparison is made with prior study dated February 09, 2023. FINDINGS: The patient is status post right thoracentesis. No evidence of pneumothorax. Mild residual pleural parenchymal changes at the right lung base. RAD/Chest Insp/Exp 2 View IMPRESSION: Status post right thoracentesis. No evidence of pneumothorax. Mild degree of residual pleural parenchymal changes at the right lung base. Electronically Signed: Roberto Amor MD at 15:13 EDT ,
[2023-02-10] MEDS: Lidocaine 2% (20 ml mdv) 20 ML Vial INFILT (13:48)
[2023-02-10 14:14] LABS: Cytology, Body Fluid / CSF SEE PATHOLOGY REPORT
[2023-02-10] MEDS: Vital High Protein 1,000 ML 25 ML GT (14:31)
[2023-02-10] MEDS: TITRATION PARAMETER CHANGE 1 EACH IV (14:33)
[2023-02-10 15:45] LABS: Body Fluid Mononuclear WBC # 0.077 10^3/uL; Body Fluid Mononuclear WBC % 91.7 %; Body Fluid Polynuclear WBC # 0.007 10^3/uL; Body Fluid Polynuclear WBC % 8.3 %; Red Cell Count/Body Fluid 0.012 10^6/ul; White Blood Count/Body Fluid 0.084 10^3/uL
[2023-02-10 16:22] LABS: Appearance/Body Fluid SL CLDY; Auto B Fluid Analyzer BKGD Ct COUNTS W/IN LIMITS (W/IN LIMITS); Body Fluid QC Type(s) BF1Q; Color/Body Fluid YELLOW; Lymphocytes 67 %; Macrophages 2 %; Mesothelial Cells 5 %; Monocytes 9 %; Neutrophil (Segs) 16 %; Other Cell Type/BF 1 %; Source- Body Fluid THORACENTESIS
[2023-02-10] MEDS: LORazepam 2 MG/ML Syringe IV ×4 (16:34→20:26)
[2023-02-10] MEDS: Propofol 10MG/Ml 1,000 MG/100 ML Bottle 5.1 MG CONT INF (16:34)
[2023-02-10 17:50] LABS: Bedside Glucose 129 mg/dL (74-106)
--- NOTE | 2023-02-10 18:12 | PCM.HOSP.N ---
Hospitalist Note Patient was seen and examined this afternoon, I was notified by nursing that she has generalized movements suggestive of seizure activity, her EEG resulted today as showing GPED, initially the family was not opposed to having her transferred to another hospital (critical care suggested that) for continuous EEG monitoring, after discussing her issues among themselves however, they decided it was better for the patient to be a comfort care and the patient be taken off the vent. They requested that she not be transferred to another facility. Patient's family and her POA are aware that the patient may not survive after she is extubated. I discussed this with Dr. Skinner by phone, orders were put in for the patient to be comfort care. I initially discussed her case with Dr. Cordon who is a neurologist at [facility] in [place], I did call him back to notify that the patient's family had changed her mind and decided to make her comfort care.
[2023-02-10] MEDS: Morphine 4 MG/ML Syringe IV ×4 (18:40→20:27)
--- NOTE | 2023-02-10 18:49 | NURSING ---
patient terminally extubated and family is now at bedside. Ativan and Morphine given prior to extubation.
[2023-02-10 19:04] LABS: Glucose, Body Fluid 129 mg/dL (40-70); LDH,Body Fluid 128 Units/l (Not Establ.); Protein, Body Fluid 1.6 g/dL (Not Establ.)
--- NOTE | 2023-02-10 19:30 | NURSING ---
Family came out to desk and asked for pt to get some more medication d/t her gasping for air and restlessness. Dr. Bishop paged and orders given to change ativan to q1h with first dose now. If this is ineffective, okay to give morphine q30 min.
--- NOTE | 2023-02-10 21:02 | NURSING ---
Pt noted to be asystole on the monitor. Family at bedside. Time of 2040, verified by Bryan Del Real RN and Kathya Bernal RN. Dr. Bishop notified.
--- NOTE | 2023-02-10 23:11 | PCM.PN.BLA ---
Progress Note Was notified by nursing team that patient who had terminally been extubated you down; went into a asystole and . Time of confirmed by 2 nurses was 2040. Day was 02/10/2023.
[2023-02-11 13:10] LABS: Pathologist Comment/Body Fluid Reviewed
[2023-02-13 10:08] LABS: Amylase Body Fluid 41 U/L (.); pH, Body Fluid 11254 6.8 (Not Estab.)
--- NOTE | 2023-02-13 15:44 | PCM.DEATH ---
Preliminary Cause of Preliminary Cause of Preliminary Cause of : Asystole secondary to acidosis from acute on chronic combined respiratory failure due to pneumonia and pleural effusions Date of Admission: 02/09/23 Date of : 02/11/23 Principle Diagnosis 1. 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 Mukul Lorenzana, DO) Acute alteration in mental status (Acute) Anemia (Acute) Hyperammonemia (Acute) Acute hypoxemic respiratory failure (Acute) Encephalopathy (Acute) Hospital Course This 72-year-old white female was brought to the emergency room at [facility] with complaints of shortness of breath and altered mental status, per EMS, the patient was hypoxic with her pulse ox in the 80s. Patient was not found down, she was placed on a nonrebreather, patient was not protecting her airway and due to her somnolence, she was intubated immediately and labs were obtained. Patient's lactate was elevated at 2.8, CT scan of the head showed no evidence of intracranial abnormalities, ABG was obtained and it showed CO2 retention and hyperoxia initially after the patient was intubated, patient's labs showed a hemoglobin of 6.8, white blood cell count was 5.6, her ammonia level was 51. Chemistry profile showed a creatinine of 1.35 and a BUN of 27. Urinalysis showed 10-25 RBCs, no WBCs, and no bacteria. Chest x-ray showed prominent appearing increased interstitial lung markings, chest CT was performed which showed large bilateral pleural effusions and a right pneumonic infiltrate. Patient was admitted to the ICU, she had been active with hospice at home but family requested full measures initially, she was placed on IV antibiotics and underwent a left thoracentesis with removal of 250 cc of blood-tinged fluid. Patient began to have signs of possible seizure activity and an EEG was performed which showed periodic generalized paroxysmal ultraform discharges throughout both cerebral hemispheres throughout the course of the study. Patient was given IV Ativan and conversations were carried out with the patient's family concerning how aggressive to continue to be with the patient's medical care. At first the patient's family wished the patient to be transferred to another hospital, critical care believe the patient needed 24-hour EEG monitoring, however, after further conversations with the family by nursing, family requested the patient to be comfort care only and be extubated and made comfortable. All family members present were in agreement. On 02/10/2023, patient was extubated, she received medication for comfort measures and respiratory distress, she then went into a bradycardia and went into asystole and at 2040. Patient had no spontaneous respirations, blood pressure, or pulse. She was pronounced at that time. Visit Charges Inpatient E&M: 25732 Disch Hosp
== END 2023-02-10 20:41 | DRG 208 ==
LOC: ED 16:39 → ICU 17:25
PROVIDERS: Admitting Provider Internal Medicine; Emergency Provider Emergency Medicine; PCP Family Medicine; Visit Provider Internal Medicine
DX: J96.21 Acute and chronic respiratory failure with hypoxia (principal); I50.33 Acute on chronic diastolic (congestive) heart failure; G93.41 Metabolic encephalopathy; J18.9 Pneumonia, unspecified organism; I13.0 Hypertensive heart and chronic kidney disease with heart failure and stage 1 through stage 4 chronic kidney disease, or unspecified chronic kidney disease; J44.0 Chronic obstructive pulmonary disease with (acute) lower respiratory infection; N18.4 Chronic kidney disease, stage 4 (severe); J91.8 Pleural effusion in other conditions classified elsewhere; K76.82 Hepatic encephalopathy; D69.6 Thrombocytopenia, unspecified; E11.22 Type 2 diabetes mellitus with diabetic chronic kidney disease; J96.22 Acute and chronic respiratory failure with hypercapnia; K74.60 Unspecified cirrhosis of liver; I46.9 Cardiac arrest, cause unspecified; E88.09 Other disorders of plasma-protein metabolism, not elsewhere classified; D64.9 Anemia, unspecified; K75.81 Nonalcoholic steatohepatitis (NASH); E78.5 Hyperlipidemia, unspecified; Z79.84 Long term (current) use of oral hypoglycemic drugs; Z87.891 Personal history of nicotine dependence; Z51.5 Encounter for palliative care; Z68.35 Body mass index [BMI] 35.0-35.9, adult; E66.9 Obesity, unspecified; Z20.822 Contact with and (suspected) exposure to COVID-19
CPT/HCPCS: 31500; 31720; 32555; 36569; 36600; 51702; 70450; 71045; 71046; 71250; 80053; 81001; 82140; 82150; 82550; 82803; 82945; 82962; 83605; 83615; 83690; 83735; 83986; 84100; 84156; 84157; 84443; 84478; 84484; 85025; 86850; 86900; 86901; 86920; 86922; 87040; 87070; 87075; 87205; 87428; 87449; 87633; 87641; 88108; 88305; 88313; 89050; 93005; 94002; 94003; 94640; 95819; 97802; 99252; 99285; J2185; J7030; P9016; A4216; G0463; J3010